=== PATIENT | female | born 1990 | race Caucasian/White ===

== ENCOUNTER 2019-02-12 18:28 | Emergency (ER) | payer BC, SELFPAY ==
[2019-02-12 18:29] VITALS: BP 114/58; PULSE 79; RESP 17; TEMP 36.3; O2SAT 99; BMI 45.6
[2019-02-12 19:18] LABS: Absolute Lymphocyte Count 1.33 X10^3/uL (0.83-4.51); Basophil# 0.02 X10^3/uL; Basophil% 0.2 % (0-1); Eosinophil# 0.19 X10^3/uL; Eosinophils% 2.1 % (0-5); Hematocrit 42.3 % (37-47); Hemoglobin 13.1 g/dL (12.0-15.0); Lymphocyte # 1.33 X10^3/ul (4.0); Lymphocyte % 14.8 % (19-41); Mean Corpuscular Hgb 27.1 pg (27.0-32.0); Mean Corpuscular Volume 87.4 fL (81-99); Mean Platelet Vol. 10.3 fl (6.2-12.0); Monocyte# 0.37 X10^3/uL; Monocyte% 4.1 % (0-10); NRBC Flagged by Analyzer 0 % (0-5); Neutrophil # 7.04 X10^3/uL (2.7-7.7); Neutrophil % 78.4 % (47-70); Platelet Count 276 K/mm3 (150-450); RBC Distribution Width CV 13.6 % (11.6-14.6); RBC Distribution Width SD 43.1 fl (35.1-43.9); Red Blood Count 4.84 M/mm3 (4.2-5.4)
[2019-02-12 19:20] VITALS: BP 107/55; BP 83/34; BP 98/58; PULSE 59; PULSE 63; PULSE 81
[2019-02-12] MEDS: 0.9% Normal Saline 1,000 ML 1000 ML IV (19:23)
[2019-02-12 19:25] LABS: Anion Gap 6 (5-15); BUN 12 mg/dL (7-18); BUN/Creat Ratio 14.5 RATIO (10-20); Calcium,Total 9.4 mg/dL (8.5-10.1); Chloride 108 mmol/L (98-107); Creatinine, Serum 0.83 mg/dL (0.55-1.02); EST Glomerular Filtration Rate 87 mL/min (>60); Est Glom Filt Rate - Afr Amer 105 mL/min (>60); Estimated Creatinine Clearance 87.14 ml/min; Glucose 107 mg/dL (74-106); Potassium 3.7 mmol/L (3.5-5.1); Sodium Level 141 mmol/L (136-145)
[2019-02-12 19:27] LABS: Internal QC Validated? YES +Cl - CLEAR BKGD; Pregnancy, Serum, hCG Quali. NEGATIVE Negative
--- NOTE | 2019-02-12 19:28 | ED.DCSUM_ITS ---
- ER Visit Summary Date of Service: 02/12/19 Chief Complaint: [Syncope] History of Present Illness: The patient is a 28 F [presents to the emergency department complaint of a syncopal episode this afternoon while at work. 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 Patient states that she felt like she might pass out so she sat down and kind of fell backwards into the chair and was unconscious for short time. Patient did not fall or injure herself. Patient states that she did start having some vomiting and diarrhea this morning about 2-3 episodes of each. Patient unsure of her last menstrual period but does not think she is . Patient states that she had a similar episode in December and was told at another hospital that she had vasovagal syncope. Patient otherwise has history of asthma and anxiety. Patient also has had prior and cholecystectomy.] Physical Examination: [HEENT-PERRLA, EOMI. Cranial nerves II through XII grossly intact. TMs clear. Mucous membranes moist. No adenopathy. Cardiovascular-regular rate and rhythm without murmur or ectopy Lungs-clear to auscultation, chest wall stable without crepitus or subcu emphysema Abdomen-normoactive bowel sounds, soft, nontender, no rebound or rigidity, no peritoneal signs. Extremities-intact ?4, normal range of motion, normal pulses, atraumatic] Test Results: [CBC with it was normal. Chemistries unremarkable.] hCG was negative. Orthostatic vital signs were positive. Emergency Department Course and Treatment: [Received a liter of the same fluid bolus. She will have repeat orthostatics obtained after the boluses in. Patient otherwise looks well and feels well.] Treatment Plan: [Patient will be advised to follow-up with primary care physician in 3 to 5 days. Patient advised to return if persistent syncope, chest pain, or condition should worsen anyway. Patient advised to push fluids.] Disposition: [Home in stable condition.] Impression: [Syncope-vasovagal Orthostatic hypotension Viral gastroenteritis] This note was generated with [employer] dictation software. It may contain incorrect words, spelling, and punctuation that were not noted in review of the chart prior to signing ED Disposition - Plan for ED Patient: Referrals: Jose Luis Barillas MD [Primary Care Provider] -
--- NOTE | 2019-02-12 19:46 | ED.DEP ---
ED Disposition - Plan for ED Patient: Instructions: HYPOTENSION, Orthostatic, SYNCOPE, Vasovagal, GASTROENTERITIS, Viral (6y-Adult) Prescriptions: Ondansetron [Zofran Odt] 4 mg PO Q8H PRN PRN #10 tab PRN Reason: Nausea Prescription Printed Referrals: Jose Luis Barillas MD [Primary Care Provider] - 3-5 Days
[2019-02-12 20:45] VITALS: BP 106/51; BP 124/78; BP 136/67; PULSE 68; PULSE 70; PULSE 71
== END 2019-02-12 20:54 | disposition home or self-care (01) ==
LOC: ED 19:06
PROVIDERS: Emergency Provider Emergency Medicine; Family Provider Family Medicine; PCP Family Medicine
DX: I95.1 Orthostatic hypotension (principal); A08.4 Viral intestinal infection, unspecified
CPT/HCPCS: 80048; 84703; 85025; 96360; 99285; J7030; A4216

== ENCOUNTER 2019-02-25 20:01 | Emergency (ER) | payer SELFPAY ==
[2019-02-25 20:03] VITALS: BP 155/65; PULSE 68; RESP 14; TEMP 36.8; O2SAT 98; BMI 46.3
--- NOTE | 2019-02-25 20:07 | EKG12_ITS ---
Test Reason : SYNCOPE Blood Pressure : / mmHG Vent. Rate : 063 BPM Atrial Rate : 063 BPM P-R Int : 166 ms QRS Dur : 094 ms QT Int : 430 ms P-R-T Axes : 008 024 019 degrees QTc Int : 440 ms Normal sinus rhythm Poor R wave progression Confirmed by MUNIRA RAO, ARTUR ([id number]), assignment desk editor NO MONTAÑO ([id number]) on 03/01/2019 10:15:25 AM Referred By: SURI Confirmed By:ARTUR LOMBARDO MD
[2019-02-25 20:23] VITALS: BP 118/54; BP 130/73; BP 134/64; PULSE 63; PULSE 73; PULSE 75
--- NOTE | 2019-02-25 20:31 | ED.VIS.GEN ---
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 She felt lightheaded. Then she started feeling her heart racing. She checked her pulse and it had gone from the 50s up to between 100-110, she felt like she was going to pass out. She sat down and is eventually passed and resolved prior to getting here to the ER. She denies any chest pain or shortness of breath or leg swelling. This is the third or fourth time she has had this exact thing happened. She just had a work-up for this at her doctor, was referred to cardiology for which she has an appointment next month, and ordered a Holter or event monitor that she is going to get fitted for tomorrow. She now feels back to normal. She has been drinking plenty of fluids today and denies any recent illness or new medications. Past Medical History - Allergies and Home Meds Allergies/Adverse Reactions: Allergies ceftriaxone [From Rocephin] Allergy (Verified 02/25/19 20:02) Satinder Primary Care Physician: Jose Luis Barillas MD [Primary Care Provider] - Smoking Status: Never smoker Drugs: None Review of Systems General: Denies: Chills, Fever, Sweats Eyes: Denies: Visual changes - bilaterally, Diplopia ENT: Denies: Rhinorrhea, Sore throat Cardiovascular: Reports: Palpitations, Heart racing. Denies: Chest pain Respiratory: Denies: Dyspnea, Cough, Dyspnea on exertion Gastrointestinal: Denies: Abdominal pain, Nausea, Vomiting, Diarrhea, Melena, Hematochezia Genitourinary: Denies: Dysuria, Hematuria, Frequency Musculoskeletal: Denies: Back pain, Swelling, Extremity Pain Skin: Denies: Rash, Wounds Neurological: Denies: Headache, Weakness, Numbness Physical Exam Vital Signs/Narrative: Vital Signs Temp Pulse Pulse Pulse Pulse Resp BP 02/25/19 20:23 63 75 73 02/25/19 20:03 98.3 F 68 14 155/65 H BP BP BP Pulse Ox 02/25/19 20:23 118/54 L 134/64 H 130/73 H 02/25/19 20:03 98 Inital Vital Signs reviewed: Yes General: Well nourished, Well developed, No Acute Distress Head: Normocephalic, Atraumatic Eyes: Perrl, EOMI ENT: Moist mucous membranes, No rhinorrhea Neck: Supple, Nontender, No lymphadenopathy, No JVD Cardiovascular: Regular rate, Regular rhythm, No murmurs, Normal S1, Normal S2. Negative for: Tachycardia Respiratory: No distress, CTA bilaterally, Chest nontender Abdomen: Soft, Nontender, Nondistended, Normal bowel sounds Back: Nontender, Normal Inspection Extremities: Nontender, No edema. Negative for: Calf Tenderness Skin: Normal color, No rash, No Trauma Neurological: Alert, Oriented x3, Cranial nerves II-XII grossly intact, Normal Strength, Normal Sensation, Normal Gait Psychological: Normal affect, Normal Mood Diagnostic/Tx/Re-eval - Rhythm Strip Rhythm Strip: Sinus Rhythm Rate: 70 Ectopy: None - EKG Initial EKG Interpretation: Sinus Rhythm, No Acute Injury Pattern - normal EKG - Medical Decision Making Orthostatics unremarkable. Patient was observed and had no recurrent symptoms, telemetry events, or dysrhythmias. She just had blood work and a negative , all of which was unremarkable, about 1 week ago or a little more. I do not think that needs to be repeated since she has been feeling fine prior to this event, which has happened before. I advised that she go home, get her Holter monitor fitted as scheduled tomorrow, and follow-up as scheduled. She is comfortable with that plan. ED Disposition - Plan for ED Patient: Disposition: Home or Assisted Living Diagnosis: Near syncope, Palpitations Instructions: Palpitations, NEAR SYNCOPE, Unknown Referrals: Jose Luis Barillas MD [Primary Care Provider] - Keep Kiley appointment (And/or your adolescent medicine specialist) Additional Instructions: Make sure you get your monitor for tomorrow.
[2019-02-25 21:21] VITALS: BP 105/55; PULSE 66; RESP 15; O2SAT 100
== END 2019-02-25 21:24 | disposition home or self-care (01) ==
PROVIDERS: Emergency Provider Emergency Medicine; Family Provider Family Medicine; PCP Family Medicine
DX: R55 Syncope and collapse (principal); R00.2 Palpitations; Z88.1 Allergy status to other antibiotic agents
CPT/HCPCS: 93005; 99285

== ENCOUNTER 2019-04-13 18:44 | Emergency (ER) | payer OTHER, SELFPAY ==
[2019-04-13 18:45] VITALS: BP 134/77; PULSE 66; RESP 18; TEMP 36.7; O2SAT 98; BMI 46.0
--- NOTE | 2019-04-13 19:08 | ED.DCSUM_ITS ---
History of Present Illness Chief Complaint: Upper Extremity Injury Detail of Chief Complaint: Left elbow injury Informant: Patient Onset: Today Current Severity: Mild Maximum Severity: Mild Narrative: Patient presents with left elbow injury. 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 She states she felt a pop in her left elbow and had pain. She denies paresthesias in her hand. Minimal tenderness at the left shoulder. She is right-hand dominant. - Past Medical History (1) Asthma Status: Chronic (2) Depression Status: Chronic (3) Hx of cholecystectomy Status: Chronic Past Medical History - Allergies and Home Meds Allergies/Adverse Reactions: Allergies ceftriaxone [From Rocephin] Allergy (Verified 04/13/19 18:44) Hives Primary Care Physician: Jose Luis Barillas MD [Primary Care Provider] - Prior records reviewed: Yes Smoking Status: Never smoker Review of Systems General: Denies: Chills, Fever Eyes: Denies: Visual changes - bilaterally ENT: Denies: Bilateral ear pain Cardiovascular: Denies: Chest pain Respiratory: Denies: Dyspnea, Cough Gastrointestinal: Denies: Abdominal pain, Nausea, Vomiting Musculoskeletal: Reports: Extremity Pain. Denies: Swelling Neurological: Denies: Weakness, Parasthesia Psych: Denies: Depression Hematologic: Denies: Easy bruising, Easy bleeding Allergy: Denies: Uticaria Physical Exam Vital Signs/Narrative: Vital Signs Temp Pulse Resp BP Pulse Ox 04/13/19 18:45 98.0 F 66 18 134/77 H 98 Inital Vital Signs reviewed: Yes General: Well nourished, Well developed Head: Normocephalic ENT: Moist mucous membranes Cardiovascular: Regular rate Respiratory: No distress Extremities: - - Mild tenderness over the radial head of the left elbow. No significant edema noted. Good range of motion. No pain with pronation and supination. Strong distal pulses are noted. She is a strong hand grasp. There is minimal tenderness at the shoulder with full range of motion. Skin: Normal color, No rash Neurological: Alert, Oriented x3 Psychological: Normal affect Diagnostic/Tx/Re-eval Impressions Elbow X-Ray 04/13/19 19:11 IMPRESSION: Normal x-ray examination of the elbow. Electronically Signed: Isai Leonard MD at 19:53 EST , Service support , 04/13/19 19:11 Elbow min 3 Views [RAD] Stat - Medical Decision Making Patient declined anything for pain while here. X-ray results are discussed with her. Elbow was wrapped with Faraz wrap. Work restrictions are provided. She will follow-up with [facility] care. ED Disposition - Plan for ED Patient: Disposition: Home or Assisted Living Diagnosis: Elbow sprain Instructions: Sprain Elbow Referrals: [facility] [GROUP OF PHYSICIANS] - 3-5 Days
--- NOTE | 2019-04-13 19:11 | RAD_ITS ---
STUDY: X-RAY - LEFT ELBOW REASON FOR EXAM: Female, 29 years old. left elbow pain and bruising. pt was lifting heavy object at work and heard and quot;pop and quot; in elbow. TECHNIQUE: 3 view(s) of the elbow. COMPARISON: None. FINDINGS: Normal visualized humerus, radius and ulna. Normal radiocapitellar and ulnotrochlear articulations. The soft tissue structures are unremarkable. RAD/Elbow min 3 Views IMPRESSION: Normal x-ray examination of the elbow. Electronically Signed: Isai Leonard MD at 19:53 EST , Service support ,
== END 2019-04-13 20:16 | disposition home or self-care (01) ==
PROVIDERS: Emergency Provider Emergency Medicine; PCP Family Medicine
DX: S53.402A Unspecified sprain of left elbow, initial encounter (principal); S50.02XA Contusion of left elbow, initial encounter; X50.0XXA Overexertion from strenuous movement or load, initial encounter; J45.909 Unspecified asthma, uncomplicated; F32.9 Major depressive disorder, single episode, unspecified; Z88.1 Allergy status to other antibiotic agents; Z90.49 Acquired absence of other specified parts of digestive tract
CPT/HCPCS: 73080; 99282

== ENCOUNTER 2019-07-28 18:35 | Emergency (ER) | payer BC, SELFPAY ==
[2019-04-20 12:33] VITALS: BMI 46.0
[2019-07-28 18:35] VITALS: BP 118/74; PULSE 68; RESP 18; O2SAT 100
[2019-07-28 18:36] VITALS: BP 118/74; PULSE 77; RESP 16; TEMP 36.8; O2SAT 97; BMI 49.6
--- NOTE | 2019-07-28 18:51 | RAD_ITS ---
STUDY: X-RAY CHEST REASON FOR EXAM: Female, 29 years old. CHEST PAIN/DIZZINESS @WORK TONIGHT, PT IS 13 WKS , DOUBLE SHIELDED TECHNIQUE: 2 views COMPARISON: None. FINDINGS: The lungs are clear and expanded. There is no demonstrated pleural abnormality. Normal size heart. Normal mediastinum and grace. Normal visualized pulmonary arteries. Normal visualized aortic arch and descending thoracic aorta. Normal visualized thoracic spine. Normal visualized ribs, clavicles, and shoulders. There is no demonstrated abnormality of the visualized soft tissue structures of the upper abdomen. RAD/Chest PA and Lateral IMPRESSION: Normal x-ray examination of the chest. Electronically Signed: Julissa Collazo MD at 19:16 EDT , Service support ,
--- NOTE | 2019-07-28 18:51 | EKG12_ITS ---
Test Reason : CP Blood Pressure : / mmHG Vent. Rate : 078 BPM Atrial Rate : 078 BPM P-R Int : 168 ms QRS Dur : 086 ms QT Int : 372 ms P-R-T Axes : 038 045 032 degrees QTc Int : 424 ms Normal sinus rhythm with sinus arrhythmia Normal ECG Confirmed by MONALISA RAO, CHARLENE ([id number]), film editor NO MONTAÑO ([id number]) on 08/02/2019 1:57:31 PM Referred By: CHASIDY Confirmed By:DINA SHELDON MD
--- NOTE | 2019-07-28 18:51 | ED.VIS.GEN ---
History of Present Illness Chief Complaint: Chest Pain Narrative: Patient is a 29-year-old female who presents with chest discomfort and lightheadedness. She thinks this was just because it was hot at work. She had noted that she quit sweating about 30 minutes before developing some mild chest discomfort and lightheadedness. This improved after getting out of the hot environment and currently she is completely asymptomatic. She did not feel short of breath. She denies any recent illness otherwise such as fevers vomiting diarrhea. She has been eating and drinking normally. Past Medical History - Allergies and Home Meds Allergies/Adverse Reactions: Allergies sulfamethoxazole [From Bactrim] Allergy (Mild, Verified 07/28/19 18:36) UNKNOWN trimethoprim [From Bactrim] Allergy (Mild, Verified 07/28/19 18:36) UNKNOWN ceftriaxone [From Rocephin] Allergy (Verified 07/28/19 18:36) Hives Primary Care Physician: Jose Luis Barillas MD [Primary Care Provider] - Past Medical History: - - Anxiety Smoking Status: Never smoker Review of Systems All systems negative except as indicated General: Denies: Fever Eyes: Denies: Visual changes - bilaterally ENT: Denies: Bilateral ear pain Cardiovascular: Reports: Chest pain, - - Lightheadedness Respiratory: Denies: Dyspnea Gastrointestinal: Denies: Abdominal pain, Nausea, Vomiting, Diarrhea Musculoskeletal: Denies: Myalgias, Arthralgias Skin: Denies: Rash Neurological: Denies: Headache Hematologic: Denies: Easy bruising, Easy bleeding Allergy: Denies: Uticaria Physical Exam Vital Signs/Narrative: Vital Signs Temp Pulse Resp BP Pulse Ox 07/28/19 18:36 98.3 F 77 16 118/74 97 07/28/19 18:35 68 18 118/74 100 Inital Vital Signs reviewed: Yes General: Well nourished Head: Normocephalic Eyes: EOMI ENT: Moist mucous membranes Neck: Supple Cardiovascular: Regular rate, Regular rhythm Respiratory: No distress, CTA bilaterally Skin: Normal color Neurological: Alert Psychological: Normal affect Diagnostic/Tx/Re-eval Impressions Chest X-Ray 07/28/19 18:51 IMPRESSION: Normal x-ray examination of the chest. Electronically Signed: Julissa Collazo MD at 19:16 EDT , Service support , 07/28/19 18:51 Chest PA and Lateral [RAD] Stat - Medical Decision Making Chest x-ray normal as above. EKG shows normal sinus rhythm with sinus arrhythmia at a rate of 78 no acute ischemic changes. This was likely a heat exhaustion type reaction. Currently she is completely asymptomatic. She understands to return for new or worsening symptoms otherwise to follow-up as an outpatient and she was discharged home. ED Disposition - Plan for ED Patient: Disposition: Home or Assisted Living Diagnosis: Dizziness, Chest pain Instructions: ED Chest Pain NonCardiac Referrals: Jose Luis Barillas MD [Primary Care Provider] -
[2019-07-28 19:49] VITALS: BP 113/96; PULSE 72; RESP 16; O2SAT 98
== END 2019-07-28 19:50 | disposition home or self-care (01) ==
PROVIDERS: Emergency Provider Emergency Medicine; PCP Family Medicine
DX: R42 Dizziness and giddiness (principal); R07.9 Chest pain, unspecified; Z88.1 Allergy status to other antibiotic agents; Z88.2 Allergy status to sulfonamides; F41.9 Anxiety disorder, unspecified
CPT/HCPCS: 71046; 93005; 99285; A4216

== ENCOUNTER 2019-08-25 20:48 | Emergency (ER) | payer BC, SELFPAY ==
[2019-08-25 20:50] VITALS: BP 128/72; PULSE 90; RESP 16; TEMP 36.4; O2SAT 97; BMI 46.7
[2019-08-25 21:12] LABS: Bacteria 0 SEEN /hpf (None Seen); Mucous, Urine 0 SEEN /hpf (<or=2+)
[2019-08-25 21:17] LABS: Color, Urine Yellow (Yellow); Glucose, Dipstick Normal (Normal); Ketone-Dipstick 15 mg/dl (Negative); Leukocyte Esterase-Dipstick 100 /ul (Negative); Nitrite-Dipstick Negative (Negative); Occult Blood-Urine 50 /ul (Negative); Protein-Dipstick 30 mg/dl (Negative); Urine Bilirubin Dipstick Negative (Negative); Urine Clarity Cloudy (Clear); Urine Urobilinogen 1 mg/dl (Normal)
[2019-08-25 21:26] LABS: Calcium Oxalate Crystals Ur 2+ /hpf (<or=2+); Red Blood Cells-Urine 0-5 SEEN /hpf (0-5); Squamous Epithelial Cells - UA 5-10 SEEN /hpf (5-10); White Blood Cells 0-5 SEEN /hpf (0-5)
--- NOTE | 2019-08-25 21:45 | ED.DCSUM_ITS ---
History of Present Illness Chief Complaint: Vag Bld, Preg Onset: Today Narrative: 29-year-old G2, P1 at approximately 17 weeks presents with concern for vaginal bleeding. States that she went to clean herself after urination approximately 1 hour ago when she noticed there was some blood on the tissue paper. Sure whether this is coming from her vagina or her urethra. States that her urine was not tinged with blood. States that she has been having intermittent cramping. States that she did fall on her right side when going up a hill after canoeing trip over the weekend. States that she did not fall on her abdomen or pelvis. Has any nausea, vomiting, dysuria, vaginal discharge. Past Medical History - Allergies and Home Meds Allergies/Adverse Reactions: Allergies sulfamethoxazole [From Bactrim] Allergy (Mild, Verified 08/25/19 20:52) UNKNOWN trimethoprim [From Bactrim] Allergy (Mild, Verified 08/25/19 20:52) UNKNOWN ceftriaxone [From Rocephin] Allergy (Verified 08/25/19 20:52) Hives Primary Care Physician: Jose Luis Barillas MD [Primary Care Provider] - Prior records reviewed: Yes Past Medical History: None Surgical History: no surgical history Lives: Spouse/ Significant Other Smoking Status: Never smoker Alcohol: None Drugs: None Review of Systems General: Denies: Chills, Fever, Sweats Eyes: Denies: Visual changes - bilaterally, Diplopia ENT: Denies: Rhinorrhea, Sore throat Cardiovascular: Denies: Chest pain, Palpitations Respiratory: Denies: Dyspnea, Cough, Dyspnea on exertion Gastrointestinal: Denies: Abdominal pain, Nausea, Vomiting, Diarrhea, Melena, Hematochezia Genitourinary: Reports: - - vaginal bleeding. Denies: Dysuria, Hematuria, Frequency Musculoskeletal: Denies: Back pain, Extremity Pain Skin: Denies: Rash, Wounds Neurological: Denies: Headache, Weakness, Numbness Physical Exam Vital Signs/Narrative: Vital Signs Temp Pulse Resp BP Pulse Ox 08/25/19 20:50 97.6 F L 90 16 128/72 H 97 Inital Vital Signs reviewed: Yes General: Well nourished, Well developed, No Acute Distress Head: Normocephalic, Atraumatic Eyes: Perrl, EOMI ENT: Moist mucous membranes, No rhinorrhea Neck: Supple, Nontender Cardiovascular: Regular rate, Regular rhythm, No murmurs Respiratory: No distress, CTA bilaterally, Chest nontender Abdomen: Soft, Nontender, Nondistended, Normal bowel sounds Back: Nontender, Normal Inspection Extremities: Nontender, No edema Skin: Normal color, No rash Neurological: Alert, Oriented x3, Cranial nerves II-XII grossly intact, Normal Strength, Normal Sensation Psychological: Normal affect, Normal Mood Diagnostic/Tx/Re-eval Laboratory Data 08/25/19 08/25/19 20:58 22:00 Urine Color Yellow Urine Clarity Cloudy Urine pH 5.0 Ur Specific [place] 1.030 Urine Protein 30 H Urine Glucose (UA) Normal Urine Ketones 15 H Urine Occult Blood 50 H Urine Nitrite Negative Urine Bilirubin Negative Urine Urobilinogen 1 H Ur Leukocyte Esterase 100 H Urine RBC 0-5 SEEN Urine WBC 0-5 SEEN Ur Squamous Epith Cells 5-10 SEEN Calcium Oxalate Crystal 2+ Urine Bacteria 0 SEEN Urine Mucus 0 SEEN Blood Type O POSITIVE - Medical Decision Making Appears well nontoxic. Vital signs within normal limits. Patient had no further bleeding in the emergency department. heart rate of 144. No abdominal tenderness. O+ requiring no RhoGam at this time. Urine shows possible scant infection. Urine will be sent for culture and she will be covered with Keflex. Follow-up with [facility] tomorrow. Discharged home in stable condition. ED Disposition - Plan for ED Patient: Disposition: Psychiatric Hospital or Unit Diagnosis: Vaginal bleeding before 22 weeks gestation, UTI (urinary tract infection) Instructions: ED CYSTITIS Female Adult Prescriptions: Nitrofurantoin Monohyd/M-Cryst [Macrobid 100 mg Capsule] 100 mg PO BID #10 cap Transmission Status: Pending to [facility] Referrals: Jose Luis Barillas MD [Primary Care Provider] - Additional Instructions: Please make appointment with [facility] for tomorrow. Return for any abdominal pain or increased bleeding.
[2019-08-25 23:16] VITALS: BP 130/69
[2019-08-25 23:17] VITALS: BP 137/69
== END 2019-08-25 23:18 | disposition home or self-care (01) ==
PROVIDERS: Emergency Provider Emergency Medicine; PCP Family Medicine
DX: O20.9 Hemorrhage in early pregnancy, unspecified (principal); O23.42 Unspecified infection of urinary tract in pregnancy, second trimester; Z3A.22 22 weeks gestation of pregnancy; Z88.1 Allergy status to other antibiotic agents; Z88.2 Allergy status to sulfonamides; W19.XXXA Unspecified fall, initial encounter
CPT/HCPCS: 36415; 81001; 86900; 86901; 99282

== ENCOUNTER 2019-09-14 16:45 | Outpatient (CLI) | payer BC, SELFPAY ==
[2019-09-14 16:52] VITALS: BP 113/53; PULSE 81; TEMP 36.4; O2SAT 99
[2019-09-14 17:09] VITALS: BMI 46.0
[2019-09-14 17:21] LABS: Color, Urine Yellow (Yellow); Glucose, Dipstick Normal (Normal); Ketone-Dipstick 5 mg/dl (Negative); Leukocyte Esterase-Dipstick 500 /ul (Negative); Nitrite-Dipstick Negative (Negative); Occult Blood-Urine 25 /ul (Negative); Protein-Dipstick 100 mg/dl (Negative); Urine Bilirubin Dipstick Negative (Negative); Urine Clarity Sl. Cloudy (Clear); Urine Urobilinogen 1 mg/dl (Normal)
--- NOTE | 2019-09-17 03:57 | OB.TRI.PN ---
Progress Notes Date of Service: 09/14/19 Progress Note: patient is being see nby another practice, presented today for decreased movement. normal reassuring FHT heard and reassurance given. plan fu with primary cloud administrator. urine sent for culture but just mixed contaminants. Laboratory Studies: Laboratory Tests 09/14/19 Range/Units 17:06 Urine Color Yellow (Yellow) Urine Clarity Sl. Cloudy (Clear) Urine pH 5.0 (5.0 - 8.0) Ur Specific [place] 1.020 (1.002-1.030) Urine Protein 100 H (Negative) mg/dl Urine Glucose (UA) Normal (Normal) mg/dl Urine Ketones 5 H (Negative) mg/dl Urine Occult Blood 25 H (Negative) /ul Urine Nitrite Negative (Negative) Urine Bilirubin Negative (Negative) mg/dL Urine Urobilinogen 1 H (Normal) mg/dl Ur Leukocyte Esterase 500 H (Negative) /ul Multi Select Codes - Urinary/Genital Urinary/Genital CPT Codes: No Charge
== END 2019-09-14 17:40 | disposition home or self-care (01) ==
PROVIDERS: PCP Family Medicine; Referring Provider Obstetrics & Gynecology; Visit Provider Obstetrics & Gynecology
DX: O36.8190 Decreased fetal movements, unspecified trimester, not applicable or unspecified (principal); Z3A.00 Weeks of gestation of pregnancy not specified
CPT/HCPCS: 81002; 87086; 87088; 99218; G0378

== ENCOUNTER 2019-10-08 14:43 | Emergency (ER) | payer BC, SELFPAY ==
[2019-10-08 14:44] VITALS: BP 137/67; PULSE 82; RESP 18; TEMP 36.6; O2SAT 98; BMI 46.8
--- NOTE | 2019-10-08 15:10 | US_ITS ---
STUDY: SECOND AND THIRD TRIMESTER OBSTETRICAL ULTRASOUND - LIMITED REASON FOR EXAM: Female, 29 years old WEAKNESS DECREASED MVTS LMP: 04/29/2019 PRIOR ULTRASOUND: None. TECHNIQUE: Transabdominal TECHNICAL QUALITY: Adequate. FINDINGS: There is a single intrauterine fetus. The fetus is in a cephalic presentation. There is demonstrated cardiac activity with a heart rate of 147 bpm. There is a normal amniotic fluid volume. The largest amniotic fluid pocket measures 5.6 cm. The amniotic fluid index (EVERARDO) is cm. The placenta is posterior in location and is not low lying. There are Grade 0 placental changes. The cervix measures 4.0 cm in length. BIOMETRY: BPD: 5.2 cm: 21 weeks, 6 days HC: 19.3 cm: 21 weeks, 4 days AC: 18.2 cm: 23 weeks, 1 days FL: 4.2 cm: 23 weeks, 6 days Age by LMP: 23 weeks, 1 days. RASHEL by LMP: 02/03/2020. age by current US: 22 weeks, 5 days. RASHEL by current US: 02/06/2020. Estimated weight: 564 grams, +/- 82 grams, 40 percentile. Gender: US/OB Limited With Biometrics IMPRESSION: Living intrauterine of 22 weeks 5 days as described above. Electronically Signed: Contreras Alcantara MD at 16:34 EDT Tel , Service support ,
--- NOTE | 2019-10-08 15:19 | ED.DCSUM_ITS ---
- ER Visit Summary Date of Service: 10/08/19 Chief Complaint: Generalized weakness History of Present Illness: The patient is a 29 F presenting with generalized weakness. Patient states she has felt fatigued and tired. She felt like her legs were weak this morning. She has been able to ambulate. She denies fever. Denies back pain. She has currently 23 weeks . She denies abdominal pain or cramping. Denies vaginal bleeding. She states this morning she felt that the baby was not moving as much as usual. She states he baby is now kicking normally. She has had mild diarrhea. She denies vomiting. Denies other complaints. Physical Examination: Vitals are stable. Patient is afebrile. Alert no acute distress. HEENT exam is unremarkable. Neck is supple. Lungs are clear and equal bilaterally. Heart is regular rate and rhythm. Abdomen is soft nontender nondistended. Extremities are unremarkable. Skin is warm and dry. No focal neurologic deficit. Normal strength and sensation Remainder of exam is unremarkable. Emergency Department Course and Treatment: Patient was given IV fluids. Basic metabolic panel is unremarkable. Urinalysis unremarkable. Pelvic ultrasound shows living intrauterine of 22 weeks 5 days as described above. On reevaluation, patient is resting comfortably. She feels improved. She states she is now feeling the baby move normally. She is advised to follow-up with her MEDIA ACCOUNT EXECUTIVE. Advised return to the ED for worsening complaints. Disposition: Discharge home Impression: Generalized weakness, second trimester This note was generated with [employer] dictation software. It may contain incorrect words, spelling, and punctuation that were not noted in review of the chart prior to signing ED Disposition - Plan for ED Patient: Instructions: Care for a Healthy Baby Referrals: Jose Luis Barillas MD [Primary Care Provider] -
[2019-10-08] MEDS: 0.9% Normal Saline 1,000 ML 999 ML IV (15:31)
[2019-10-08 15:46] LABS: Anion Gap 5 (5-15); BUN 5 mg/dL (7-18); BUN/Creat Ratio 10.5 RATIO (10-20); Calcium,Total 8.5 mg/dL (8.5-10.1); Chloride 110 mmol/L (98-107); Creatinine, Serum 0.48 mg/dL (0.55-1.02); EST Glomerular Filtration Rate 164 mL/min (>60); Est Glom Filt Rate - Afr Amer 198 mL/min (>60); Estimated Creatinine Clearance 149.33 ml/min; Glucose 104 mg/dL (74-106); Potassium 3.5 mmol/L (3.5-5.1); Sodium Level 139 mmol/L (136-145)
[2019-10-08 16:28] LABS: Bacteria 0 SEEN /hpf (None Seen); Mucous, Urine 0 SEEN /hpf (<or=2+); Red Blood Cells-Urine 0 SEEN /hpf (0-5)
[2019-10-08 16:37] LABS: Color, Urine Yellow (Yellow); Glucose, Dipstick Normal (Normal); Ketone-Dipstick Negative (Negative); Leukocyte Esterase-Dipstick 25 /ul (Negative); Nitrite-Dipstick Negative (Negative); Occult Blood-Urine Negative /ul (Negative); Protein-Dipstick Negative (Negative); Urine Bilirubin Dipstick Negative (Negative); Urine Clarity Clear (Clear); Urine Urobilinogen Normal (Normal); Urine pH 6.5 (5.0 - 8.0)
[2019-10-08 16:44] LABS: Squamous Epithelial Cells - UA 0-5 SEEN /hpf (5-10); White Blood Cells 0-5 SEEN /hpf (0-5)
--- NOTE | 2019-10-08 16:53 | ED.DEP ---
ED Disposition - Plan for ED Patient: Instructions: Care for a Healthy Baby Referrals: Jose Luis Barillas MD [Primary Care Provider] -
== END 2019-10-08 17:13 | disposition home or self-care (01) ==
LOC: ED 15:15
PROVIDERS: Emergency Provider Emergency Medicine; PCP Family Medicine
DX: O99.89 Other specified diseases and conditions complicating pregnancy, childbirth and the puerperium (principal); R53.1 Weakness; Z3A.23 23 weeks gestation of pregnancy
CPT/HCPCS: 76816; 80048; 81001; 96360; 99283; J7030; A4216

== ENCOUNTER 2023-07-11 15:06 | Emergency (ER) | payer BC, SELFPAY ==
[2023-07-11 15:08] VITALS: BP 102/79; PULSE 78; RESP 21; TEMP 36.6; O2SAT 98; BMI 44.9
--- NOTE | 2023-07-11 15:33 | EKG12_ITS ---
Test Reason : DIZZY Blood Pressure : / mmHG Vent. Rate : 072 BPM Atrial Rate : 072 BPM P-R Int : 174 ms QRS Dur : 090 ms QT Int : 410 ms P-R-T Axes : 056 050 043 degrees QTc Int : 448 ms Sinus rhythm with Premature supraventricular complexes Otherwise normal ECG Confirmed by Man Castro ([id number]), health editor WILBUR ROJO ([id number]) on 07/14/2023 8:13:27 AM Referred By: Confirmed By:Man Castro
--- NOTE | 2023-07-11 15:33 | EX.ED.DYSGE1 ---
HPI <SÁNCHEZ Martinez - Last Filed: 07/11/23 17:33> History of Present Illness Chief Complaint: Dizziness Narrative Narrative: Patient is a 33-year-old female with history obesity, anxiety, depression, asthma who presents to the emergency department for feeling of lightheadedness, near syncope. Patient states she did not drink a lot of water today she is currently camping, she has been camping since last evening until Friday which is 3 days. Patient states that she got this morning, she did eat breakfast as well as lunch, she was playing with the kids outside when she felt lightheaded, and went back to the campground. Patient states that she is asymptomatic at this time, she was concerned because she also gets low blood sugar. However patient is asymptomatic at this time. Denies any chest pain, fever chills nausea or vomiting. PFSH <SÁNCHEZ Martinez - Last Filed: 07/11/23 17:33> [facility] Medical History (Updated 07/11/23 @ 17:31 by SÁNCHEZ Martinez) Reactive hypoglycemia Asthma Home Medications ?Medication ?Instructions ?Recorded ?Last Taken ?Type albuterol sulfate 90 mcg/actuation 2 puff IH Q4H PRN Asthma 02/25/19 Unknown History aerosol inhaler citalopram 40 mg tablet 40 mg PO DAILY 02/25/19 Unknown History albuterol sulfate 90 mcg/actuation 2 inh inhalation Q4H PRN shortness 07/11/23 Unknown History aerosol inhaler (ProAir HFA) of breath or wheezing budesonide 0.5 mg/2 mL suspension 0.5 mg inhalation Q12.TCU 07/11/23 Unknown History for nebulization dextroamphetamine-amphetamine ER 30 mg PO DAILY 07/11/23 Unknown History 30 mg 24hr capsule,extend release fexofenadine 180 mg tablet 180 mg PO DAILY 07/11/23 Unknown History (Cydney Allergy) fluticasone 250 mcg-salmeterol 50 1 inh inhalation BID 07/11/23 Unknown History mcg/dose blistr powdr for inhalation (Wixela Inhub) mepolizumab 100 mg/mL subcutaneous 100 mg subcut QMONTH 07/11/23 Unknown History auto-injector (Nucala) metformin 500 mg tablet,extended 500 mg PO TID 07/11/23 Unknown History release 24 hr montelukast 10 mg tablet 10 mg PO DAILY 07/11/23 Unknown History nitrofurantoin 100 mg PO Q12H 5 days #10 caps 07/11/23 Unknown Rx monohydrate/macrocrystals 100 mg capsule (Macrobid) Allergy/AdvReac Type Severity Reaction Status Date / Time sulfamethoxazole (From Allergy Mild UNKNOWN Verified 07/11/23 15:08 Bactrim) trimethoprim (From Bactrim) Allergy Mild UNKNOWN Verified 07/11/23 15:08 ceftriaxone (From Rocephin) Allergy Hives Verified 07/11/23 15:08 Surgical History History of section History of cholecystectomy Social History (Updated 04/20/19 @ 12:33 by Jayce MARIE, PA) Smoking Status: Never smoker alcohol intake: never ROS <SÁNCHEZ Martinez - Last Filed: 07/11/23 17:33> ROS ED ROS Narrative Constitutional: Negative for fever, chills, weight loss, weakness Eyes: Negative for vision loss, vision change, double vision ENT: Negative for any sore throat, ear pain, congestion Cardiovascular: Negative for any chest pain, tightness, palpitations Respiratory: Negative for any cough, sputum production, hemoptysis, dyspnea, dyspnea on exertion, orthopnea Gastrointestinal: Negative for any abdominal pain, nausea, vomiting, diarrhea, constipation, blood in stool, blood in vomit : Negative for any urinary frequency, dysuria, retention, blood in urine Muscle skeletal: Negative for any neck pain, back pain Neurological: Negative for any headache. Positive feeling of dizziness, near syncope Skin: Negative for any rashes, itching, abrasions, lacerations Psychiatric: Negative for any depression, anxiety, stress, suicidal ideation, homicidal ideation Hematologic: Negative for any excessive bruising, easy bleeding EXAM <SÁNCHEZ Martinez - Last Filed: 07/11/23 17:33> Physical Exam Narrative Exam Narrative: Vital signs reviewed. HEET: Head normocephalic atraumatic, TMs clear bilaterally. Posterior pharynx is clear, moist mucous membranes. Nares clear bilaterally. Neck: Supple with no lymphadenopathy or tenderness. No signs of meningismus. Cardiac: Regular rate and rhythm no murmurs gallops or rubs, equal peripheral pulses bilaterally. On the monitor, patient does show some PVCs. Respiratory: Lungs clear to auscultation bilaterally. No chest tenderness. Abdomen: Soft, nontender, nondistended. No abdominal bruit or pulsatile masses. No hepatosplenomegaly Extremities: No peripheral edema, no signs of gross trauma or deformity. Active full range of motion of all extremities. Neuro: Cranial nerves II through XII intact, no focal neurological deficits. Skin: Clean dry and intact with no rash, purpura, petechiae, vesicles or pustules. Backs/flank: No CVA tenderness, no midline spinal tenderness, no deformity. Psych: Normal mood and affect. No SI, HI or acute psychosis. Const Vital Signs: 07/11/23 15:08 07/11/23 17:07 Temperature 97.8 F Temperature Source Temporal Pulse Rate 78 70 Respiratory Rate 21 H 18 Blood Pressure 102/79 136/66 H Blood Pressure Mean 86 89 Pulse Ox 98 95 Oxygen Delivery Method Room Air Room Air <Dr. Aleksandar Chung DO - Last Filed: 07/11/23 17:43> Physical Exam Const Vital Signs: 07/11/23 15:08 07/11/23 17:07 Temperature 97.8 F Temperature Source Temporal Pulse Rate 78 70 Respiratory Rate 21 H 18 Blood Pressure 102/79 136/66 H Blood Pressure Mean 86 89 Pulse Ox 98 95 Oxygen Delivery Method Room Air Room Air [facility] <SÁNCHEZ Martinez - Last Filed: 07/11/23 17:33> [facility] Lab Data Labs: Laboratory Results - last 24 hr 07/11/23 07/11/23 15:52 16:19 WBC 13.4 H RBC 4.47 Hgb 11.8 L Hct 38.1 MCV 85.2 MCH 26.4 L MCHC 31.0 L RDW Std Deviation 45.5 H RDW Coeff of Lala 14.7 H Plt Count 296 MPV 10.6 Immature Gran % (Auto) 0.400 Neut % (Auto) 75.3 H Lymph % (Auto) 16.7 L Armstrong % (Auto) 6.0 Eos % (Auto) 1.3 Baso % (Auto) 0.3 Absolute Neuts (auto) 10.1 H Absolute Lymphs (auto) 2.23 Nucleated RBC % 0 Sodium 140 Potassium 3.4 L Chloride 112 H Carbon Dioxide 20.0 L Anion Gap 8 BUN 11 Creatinine 0.69 Estim Creat Clear Calc 147.11 Est GFR (MDRD) Af Amer 126 Est GFR (MDRD) Non-Af 104 BUN/Creatinine Ratio 15.9 Glucose 98 Calcium 9.5 Troponin I High Sens < 3 L Urine Color SEE COMMENT BELOW Urine Clarity Sl. Cloudy Urine pH 6.0 Ur Specific [place] 1.015 Urine Protein 100 H Urine Glucose (UA) Normal Urine Ketones Negative Urine Occult Blood 250 H Urine Nitrite Negative Urine Bilirubin Negative Urine Urobilinogen Normal Ur Leukocyte Esterase 100 H Urine RBC 50-100 SEEN Urine WBC 10-25 SEEN Ur Squamous Epith Cells 0-5 SEEN Urine Bacteria 2+ Urine Mucus 0 SEEN Urine Test Negative Radiography Diagnostic Testing: Clinical Impression(s) from Imaging Studies Chest X-Ray 07/11/23 15:40 IMPRESSION: No radiographic evidence of acute cardiopulmonary disease. Electronically Signed: Conner Cardona MD at 16:20 EDT , Treatment and Re-Evaluation :: Differential diagnosis includes however is not limited to: Anemia, hypoglycemia, arrhythmia, dehydration, electrolyte disturbance Patient appears to be in no obvious respiratory distress, vital signs are stable, patient appears nontoxic. Presenting to the emergency department after a near syncopal, dizziness like episode. Patient is asymptomatic at this time, vital signs are stable. Patient states she did not drink enough water today. Patient will receive a cardiac workup including CBC BMP, troponin. EKG and chest x-ray will be ordered. She will be given 1 L normal saline. Patient will be monitored and reevaluated. Patient reevaluation was in no distress. Patient was sleeping, patient CBC shows slight leukocytosis white blood count of 13.4, hemoglobin 11.8. Patient's chemistries showed a negative troponin. Kidney function within normal limits. Patient's urinalysis was positive for infection with 2+ bacteria 10-25 white blood cells, 100 leukocytes, this will be sent for culture. Patient was started on Macrobid. Chest x-ray showed no acute process. At this time, I do believe that there is multiple reasons for the patient to have dizziness. Patient was likely dehydrated, and also was having a UTI. Patient be started on Macrobid, twice a day for 5 days. She will return for any worsening symptoms. The antibiotic will be sent to the [facility]. Stable for discharge. <Dr. Aleksandar Chung, DO - Last Filed: 07/11/23 17:43> [facility] Narrative Medical decision making narrative: I have personally performed a face to face assessment of the patient and have reviewed the NORAH Note. I performed a substantive portion of the visit including all aspects of the following. My best findings include: History: Patient presents with lightheadedness and dizziness that began today. Patient states it began rather suddenly. Patient states she felt dizzy and lightheaded. Patient states she felt like she might pass out. Patient states nothing made it better and nothing made it worse. Patient denies any chest pain or palpitations. Patient denies any nausea or vomiting. Patient denies any fevers or chills. Patient denies any shortness of breath. Exam: Vital signs are stable. Patient is afebrile. Patient is in no acute distress. Oral mucosa is pink and moist. Neck is supple. Trachea is midline. There is no JVD. Heart was regular rate and rhythm. Lungs are clear and equal bilaterally. Abdomen is soft. Bowel sounds are normal. There is no tenderness. There is no guarding noted. Cranial nerves II through XII are intact. There are no focal motor or sensory deficits noted. Medical Decision Making: Differential diagnosis includes hypoglycemia, electrolyte abnormality, urinary tract infection, , cardiac dysrhythmia, and cardiac ischemia. EKG will be obtained to assess for cardiac dysrhythmia and cardiac ischemia. Chest x-ray will be obtained to assess for pneumonia and pneumothorax. CBC will be obtained to assess for leukocytosis and anemia. Basic metabolic profile will be obtained to assess for hypoglycemia, electrolyte abnormality, and renal function. Urinalysis will be obtained to assess for urinary tract infection. Urine hCG will be obtained to assess for . High-sensitivity troponin will be obtained to assess for cardiac ischemia. Patient was given IV fluids. CBC was reviewed. There is a mild leukocytosis of 13.4. Hemoglobin was slightly low at 11.8. Platelets were normal. Basic metabolic profile was reviewed and was essentially within normal limits. High-sensitivity troponin was reviewed and was less than 3. Urinalysis was reviewed. Leukocyte esterase was 100. There are 10-25 white blood cells. There is 2+ bacteria. Occult blood was 250 with 50-100 red blood cells. Urine hCG was reviewed and was negative. Urine culture was obtained. Patient was given a dose of Macrobid here. Patient was given a prescription for Macrobid. Patient was instructed to drink plenty of fluids. Patient was instructed to follow-up with her primary care physician in 5 to 7 days. Patient understood and was agreeable with the plan. All questions were answered. Lab Data Labs: Laboratory Results - last 24 hr 07/11/23 07/11/23 15:52 16:19 WBC 13.4 H RBC 4.47 Hgb 11.8 L Hct 38.1 MCV 85.2 MCH 26.4 L MCHC 31.0 L RDW Std Deviation 45.5 H RDW Coeff of Lala 14.7 H Plt Count 296 MPV 10.6 Immature Gran % (Auto) 0.400 Neut % (Auto) 75.3 H Lymph % (Auto) 16.7 L Armstrong % (Auto) 6.0 Eos % (Auto) 1.3 Baso % (Auto) 0.3 Absolute Neuts (auto) 10.1 H Absolute Lymphs (auto) 2.23 Nucleated RBC % 0 Sodium 140 Potassium 3.4 L Chloride 112 H Carbon Dioxide 20.0 L Anion Gap 8 BUN 11 Creatinine 0.69 Estim Creat Clear Calc 147.11 Est GFR (MDRD) Af Amer 126 Est GFR (MDRD) Non-Af 104 BUN/Creatinine Ratio 15.9 Glucose 98 Calcium 9.5 Troponin I High Sens < 3 L Urine Color SEE COMMENT BELOW Urine Clarity Sl. Cloudy Urine pH 6.0 Ur Specific [place] 1.015 Urine Protein 100 H Urine Glucose (UA) Normal Urine Ketones Negative Urine Occult Blood 250 H Urine Nitrite Negative Urine Bilirubin Negative Urine Urobilinogen Normal Ur Leukocyte Esterase 100 H Urine RBC 50-100 SEEN Urine WBC 10-25 SEEN Ur Squamous Epith Cells 0-5 SEEN Urine Bacteria 2+ Urine Mucus 0 SEEN Urine Test Negative Radiography Diagnostic Testing: Clinical Impression(s) from Imaging Studies Chest X-Ray 07/11/23 15:40 IMPRESSION: No radiographic evidence of acute cardiopulmonary disease. Electronically Signed: Conner Cardona MD at 16:20 EDT , Discharge Plan Triage Chief Complaint: Dizziness ED Midlevel Provider: Pelon Peraza ED Provider: Aleksandar Chung Dx/Rx/DC Orders Clinical Impression: Acute dehydration, Near syncope, UTI (urinary tract infection) Instructions: Urinary Tract Infections in Women, ED Dehydration (Adult) Prescriptions: New nitrofurantoin monohyd/m-cryst [Macrobid] 100 mg capsule 100 mg PO Q12H 5 Days Qty: 10 0RF Rx Instructions: must administer with a meal/food No Action citalopram 40 MG tablet 40 mg PO DAILY albuterol sulfate 18 GM HFA aerosol inhaler 2 puff IH Q4H PRN (Reason: Asthma) metformin 500 mg tablet extended release 24 hr 500 mg PO TID Nucala 100 mg/mL auto-injector 100 mg subcut QMONTH albuterol sulfate [ProAir HFA] 90 mcg/actuation HFA aerosol inhaler 2 inh inhalation Q4H PRN (Reason: shortness of breath or wheezing) fluticasone propion-salmeterol [Wixela Inhub] 250-50 mcg/dose blister with device 1 inh inhalation BID budesonide 0.5 mg/2 mL suspension for nebulization 0.5 mg inhalation Q12.TCU montelukast 10 mg tablet 10 mg PO DAILY dextroamphetamine-amphetamine 30 mg capsule,extended release 24hr 30 mg PO DAILY fexofenadine [Cydney Allergy] 180 mg tablet 180 mg PO DAILY Primary Care Provider: Jose Luis Barillas Referrals: Jose Luis Barillas MD [Primary Care Provider] - Activity Restrictions/Additional Instructions: Take antibiotics until finished. Print Language: Welsh Disposition Disposition: Home, Self Care
--- NOTE | 2023-07-11 15:40 | RAD_ITS ---
EXAM: XR CHEST, 1 VIEW CLINICAL INDICATION: chest pain TECHNIQUE: Frontal view of the chest. COMPARISON: 07/28/2019 FINDINGS: LUNGS AND PLEURAL SPACES: Unremarkable. No consolidation or edema. No pneumothorax. No effusion. HEART: Unremarkable. Cardiac silhouette not enlarged. MEDIASTINUM: Central airways and mediastinal contour are unremarkable. BONES/JOINTS: Unremarkable. No acute fracture. SOFT TISSUES: Unremarkable. RAD/Chest 1 View (Portable) IMPRESSION: No radiographic evidence of acute cardiopulmonary disease. Electronically Signed: Conner Cardona MD at 16:20 EDT ,
[2023-07-11] MEDS: 0.9% Normal Saline (1000mL) 1,000 ML 999 ML IV (15:51)
[2023-07-11 16:09] LABS: Absolute Lymphocyte Count 2.23 X10^3/uL (0.83-4.51); Absolute Neutrophil Count 10.1 X10^3/uL (2.0-7.7); Basophil# 0.04 X10^3/uL; Basophil% 0.3 % (0-1); Eosinophil# 0.17 X10^3/uL; Eosinophils% 1.3 % (0-5); Hematocrit 38.1 % (37-47); Hemoglobin 11.8 g/dL (12.0-15.0); Lymphocyte # 2.23 X10^3/ul (0.83-4.51); Lymphocyte % 16.7 % (19-41); Mean Corpuscular Hgb 26.4 pg (27.0-32.0); Mean Corpuscular Volume 85.2 fL (81-99); Mean Platelet Vol. 10.6 fl (6.2-12.0); Monocyte# 0.81 X10^3/uL; NRBC Flagged by Analyzer 0 % (0-5); Neutrophil # 10.08 X10^3/uL (2.7-7.7); Neutrophil % 75.3 % (47-70); Platelet Count 296 K/mm3 (150-450); RBC Distribution Width CV 14.7 % (11.6-14.6); RBC Distribution Width SD 45.5 fl (35.1-43.9); Red Blood Count 4.47 M/mm3 (4.2-5.4); White Blood Count 13.4 K/mm3 (4.4-11.0)
[2023-07-11 16:24] LABS: Mucous, Urine 0 SEEN /hpf (<or=2+)
[2023-07-11 16:39] LABS: Glucose, Dipstick Normal (Normal); Ketone-Dipstick Negative (Negative); Leukocyte Esterase-Dipstick 100 /ul (Negative); Nitrite-Dipstick Negative (Negative); Occult Blood-Urine 250 /ul (Negative); Protein-Dipstick 100 mg/dl (Negative); Specific Gravity, Urine 1.015 (1.002-1.030); Urine Bilirubin Dipstick Negative (Negative); Urine Clarity Sl. Cloudy (Clear); Urine Urobilinogen Normal (Normal)
[2023-07-11 16:48] LABS: Color, Urine SEE COMMENT BELOW (Yellow)
[2023-07-11 16:49] LABS: Bacteria 2+ /hpf (None Seen); Red Blood Cells-Urine 50-100 SEEN /hpf (0-5); White Blood Cells 10-25 SEEN /hpf (0-5)
[2023-07-11 16:50] LABS: Internal QC Validated? YES +Cl - CLEAR BKGD; Pregnancy, Urine Negative Negative; Squamous Epithelial Cells - UA 0-5 SEEN /hpf (5-10)
[2023-07-11 16:54] LABS: Anion Gap 8 (5-15); BUN 11 mg/dL (7-18); BUN/Creat Ratio 15.9 RATIO (10-20); Calcium,Total 9.5 mg/dL (8.5-10.1); Chloride 112 mmol/L (98-107); Creatinine, Serum 0.69 mg/dL (0.55-1.02); EST Glomerular Filtration Rate 104 mL/min (>60); Est Glom Filt Rate - Afr Amer 126 mL/min (>60); Estimated Creatinine Clearance 147.11 ml/min; Glucose 98 mg/dL (74-106); Potassium 3.4 mmol/L (3.5-5.1); Sodium Level 140 mmol/L (136-145); Troponin-I HS < 3 pg/mL (3.0-54.0)
[2023-07-11 17:07] VITALS: BP 136/66; PULSE 70; RESP 18; O2SAT 95
[2023-07-11 17:39] VITALS: BP 104/63; PULSE 69; RESP 17; TEMP 36.6; O2SAT 95
[2023-07-11] MEDS: Nitrofurantoin Macrocrystals 100 MG Capsule PO (17:39)
== END 2023-07-11 17:43 | disposition home or self-care (01) ==
PROVIDERS: Nurse Practitioner; Emergency Provider Emergency Medicine; PCP Family Medicine; Visit Provider Emergency Medicine
DX: E86.0 Dehydration (principal); N39.0 Urinary tract infection, site not specified; R55 Syncope and collapse; R42 Dizziness and giddiness; J45.909 Unspecified asthma, uncomplicated; Z79.51 Long term (current) use of inhaled steroids; Z90.49 Acquired absence of other specified parts of digestive tract
CPT/HCPCS: 71045; 80048; 81001; 81025; 84484; 85025; 87086; 87088; 93005; 96360; 99284; J7030; A4216

== ENCOUNTER 2024-09-04 16:04 | Emergency (ER) | payer BC, SELFPAY ==
[2024-09-04 16:06] VITALS: BP 112/82; PULSE 68; RESP 16; TEMP 36.7; O2SAT 99; BMI 37.5
--- NOTE | 2024-09-04 16:38 | CT_ITS ---
PROCEDURE: BRAIN/HEAD WITHOUT CONTRAST 09/04/2024 REASON FOR EXAM: HEADACHE TECHNIQUE: BRAIN/HEAD WITHOUT CONTRAST Coronal and Sagittal reconstruction series were provided. One or more dose reduction techniques were used (e.g., Automated exposure control, adjustment of the mA and/or kV according to patient size, use of iterative reconstruction technique. RADIATION DOSE SUMMARY: CTDlvol: 45 mGy DLP: 779 mGycm COMPARISON: None FINDINGS: Brain: No acute intracranial hemorrhage, mass effect, or midline shift CSF Spaces: Unremarkable Sinuses/Mastoids: Predominantly clear Bones: Unremarkable Scalp: There are several nodules in the scalp containing calcification, for example over the frontal bone measuring 8 mm (sagittal image 33) and in the right occipital region measuring up to 1.0 cm (series 2, image 10). CT/Brain/Head without Contrast IMPRESSION: 1. Nodules containing calcification throughout the scalp measuring up to 1.0 cm in size, most notably in the right occipital region. Differential includes pilar cysts, epidermal inclusion cyst, or other neoplasm. Recommend clinical follow-up. 2. No acute intracranial abnormality. Reading Location: [id number]
--- OUTSIDE RECORDS SUMMARY | 2024-09-04 16:55 | XMS RPT_ITS | CCD ---
Author Organization [facility] Care Team Providers Care Parts Sales Representative Name Role Phone Radha Riojas Primary Care Provider PROVIDER, UNKNOWN Referring Unavailable Charu Baker Attending Unavailable Charu Baker Primary Care Unavailable (Historical), Unknown Primary Care Provider Unav ailable Donald Snowden DO Primary Care Provider [phone] YANIRA MORTON Attending Unavail able RADHA RIOJAS Primary Care Unavailable (Historical), Unknown Primary Care Provider Unav ailable PROVIDER, UNKNOWN Referring Unavailable PROVIDER, UNKNOWN Primary Care Unavailable ROBSON ZUNIGA Referring Unavailable ARTUR MENG Attending Unavailable PROVIDER, UNKNOWN Primary Care Unavailable PROVIDER, UNKNOWN Primary Care Unavailable JHON ACOSTA, DR BENNETT Primary Care Physician Unavail able Rey STEVE, Akhil Mandujano Unavailable Unavailable Avery BURNETT, Mera Unavailable BRIDGET RAO, DR FIGUEROA Attending Unavailab DR DONALD Rico DO Primary Care Unavailable Donald Snowden DO Primary Care Provider [phone] Aleksandar Chung Attending Unavailable Radha Riojas Primary Care Unavailable Robson Zuniga MD Unavailable Charu Baker Primary Care Provider Alexis GOLF PLAYER ASSISTANT.ACCOUNTS PAYABLE ASSOCIATE, Krystle Unavailable BENI, CHASE Attending Unavailable DONALD SNOWDEN Primary Care Unavailable BENI CHASE Attending Unavailable DONALD SNOWDEN Primary Care Unavailable BENI, CHASE Attending Unavailable DONALD SNOWDEN Primary Care Unavailable BENI, CHASE Attending Unavailable DONALD SNOWDEN Primary Care Unavailable BENI, CHASE Attending Unavailable DONALD SNOWDEN Primary Care Unavailable CHASE BAZAN Attending Unavailable DONALD SNOWDEN Primary Care Unavailable DR. DONALD SNOWDEN Primary Care Unavailable DR. DONALD SNOWDEN Primary Care Unavailable DYLAN TOPETE Attending Unavailable NIKROM, DONALD Primary Care Unavailable ROBSON ZUNIGA Attending Unavailable NIKDONALD CUETO Primary Care Unavailable NELLA PAYTON Referring Unavailable NIKROM, DONALD Primary Care Unavailable NELLA PAYTON Referring Unavailable JHON, DONALD Primary Care Unavailable ARLENE PITTMAN Attending Unavailable [facility] Primary Care Unavailable SYLWIA TOPETEY B Attending Unavailable JHON, DONALD Primary Care Unavailable DYLAN TOPETE Referring Unavailable DONALD SNOWDEN Primary Care Unavailable [facility] Primary Care Unavailable ROBSON ZUNIGA Attending Unavailable NIKROM, DONALD Primary Care Unavailable Allergies Allergy Classification Reported Allergen(s) Allergy Type Date of Onset Reaction(s) Facility Aminoketones (1 source) buPROPion Drug Allergy 12-15-19 19 Diarrhea [facility] Cephalosporins (antibiotic) (6 sources) cefTRIAXone Drug Allergy 10-04-19 15 Hives, Anaphylaxis [facility] Dihydrofolate Reductase Inhibitors (antibiotic) (1 source) Trimethoprim Drug Allergy 04-20-19 [facility] Sulfamethoxazole / Trimethoprim (1 source) Sulfamethoxazole / Trimethoprim Drug Allergy 06-04-19 18 [facility] (9 sources) buPROPion Drug Allergy 12-15-19 19 Diarrhea [place], [place] (10 sources) cefTRIAXone; Translations: [ceftriaxone] Drug Allergy 10-04-19 15 Hives, Anaphylaxis [place], [place] (9 sources) Sulfamethoxazole / Trimethoprim Drug Allergy 06-04-19 18 Anaphylaxis [place], [place] (6 sources) Morphine Drug Allergy 08-11-19 22 Nausea And Vomiting [facility] (6 sources) Trimethoprim Drug Allergy 04-20-19 [facility] (20 sources) cefTRIAXone; Translations: [CEFTRIAXONE SODIUM] Drug Allergy 05-13-19 17 Anaphylaxis [facility] Work Phone: (1 source) cefTRIAXone Drug Allergy 07-11-19 [facility] (1 source) Sulfamethoxazole Drug Allergy 07-11-19 [facility] (1 source) Trimethoprim Drug Allergy 07-11-19 [facility] Medications Current Medications Medication Drug Class(es) Dates Sig (Normalized) Sig (Original) acetaminophen 325 mg / oxyCODONE hydrochloride 7.5 mg oral tablet (2 sources) Opioid Agonist Start: 08-10-2021 End: 08-17-2021 take 1 tablet by mouth every six hours as needed for pain oxyCODONE-acetami nophen (PERCOCET) 7.5-325 MG per tablet Indications: Status post right foot surgery Take 1 tablet by mouth every 6 hours as needed for Pain for up to 7 days. 25 tablet 0 08/10/2021 08/17/2021 Active Start: 08-09-2016 End: 04-02-2022 take 1-2 tablets by mouth every four hours as needed oxyCODONE-acetaminophen (PERCOCET) 5-325 mg tablet Take 1-2 tablets by mouth every 4 hours as needed. 30 tablet 0 08/09/2016 04/02/2022 Discontinued Comment on above: Take 1-2 tablets by mouth every 4 hours as needed. [id number] 200 actuat albuterol 0.09 mg/actuat metered dose inhaler (20 sources) beta2-Adrenergic Agonist Start: 05-12-2023 End: 06-21-2024 take 2 puff(s) by inhalation every four hours as needed for wheezing albuterol HFA (PROVENTIL HFA, VENTOLIN HFA) 90 mcg/actuation inhaler INHALE 2 PUFFS INSTRUCTED EVERY 4 HOURS NEEDED FOR WHEEZING/SHORTNESS OF BREATH. 6.7 each 4 06/21/2024 Active Start: 12-17-2022 take 2 puff(s) by in halation every six hours as needed for wheezing albuterol HFA (PROAIR HFA) 90 mcg/actuation inhaler Indications: Mild asthma, unspecified whether complicated, unspecified whether persistent (HCC) Inhale 2 Puffs as instructed every 6 hours as needed for wheezing/shortness of breath. 3 Each 3 12/17/2022 Active Start: 07-11-2022 End: 12-17-2022 take 2 puff(s) by inhalation every six hours as needed for wheezing albuterol HFA (PROAIR HFA) 90 mcg/actuation inhaler Indications: Mild asthma, unspecified whether complicated, unspecified whether persistent Inhale 2 Puffs as instructed every 6 hours as needed for wheezing/shortness of breath. 18 g 3 09/25/2022 12/17/2022 Discontinued Start: 06-16-2022 End: 12-17-2022 take 3 mL by inhalation every four hours as needed for wheezing albuterol (PROVENTIL) 2.5 mg /3 mL (0.083 %) nebulizer solution Indications: Mild asthma, unspecified whether complicated, unspecified whether persistent (HCC) Use 3 mL via nebulizer every 4 hours as needed for wheezing/shortness of breath. Inhale by nebulizer over 5-15 minutes. 360 mL 3 12/17/2022 Active Start: 04-17-2022 End: 06-16-2022 albuterol (PROVENTIL) 2.5 mg /3 mL (0.083 %) nebulizer solution 2.5mg 3 times daily as needed over 5-15 minutes for wheezing and shortness of breath. 90 mL 0 04/17/2022 06/16/2022 Discontinued (.All criteria met for discontinuation) Start: 04-02-2022 End: 07-11-2022 take 2 puff(s) by inhalation every four hours as needed for wheezing albuterol HFA (PROVENTIL HFA, VENTOLIN HFA) 90 mcg/actuation inhaler Inhale 2 Puffs as instructed every 4 hours as needed for wheezing/shortness of breath. 1 Each 5 04/02/2022 07/11/2022 Discontinued Start: 03-11-2022 albuterol (2.5 MG/3ML) 0.083% nebulizer solution 2.5 mg Start: 01-14-2022 take 2 puff(s) by in halation every six hours as needed albuterol 108 (90 Base) MCG/ACT inhaler TAKE 2 PUFFS EVERY 6 HOURS NEEDED 0 01/14/2022 Active Start: 07-17-2021 take 2 puff(s) by in halation every six hours as needed for wheezing albuterol sulfate HFA 108 (90 Base) MCG/ACT inhaler INHALE 2 PUFFS INTO THE LUNGS EVERY 6 HOURS NEEDED FOR WHEEZING OR SHORTNESS OF BREATH 20.1 each 1 07/17/2021 Suspended Start: 07-05-2020 take 2 puff(s) by in halation every six hours as needed for wheezing VENTOLIN HFA 108 (90 Base) MCG/ACT inhaler Indications: Moderate persistent asthma without complication Inhale 2 puffs into the lungs every 6 hours as needed for Wheezing 1 Inhaler 5 07/05/2020 Active Start: 12-14-2018 take 2 puff(s) by in halation every six hours as needed for wheezing VENTOLIN HFA 108 (90 Base) MCG/ACT inhaler Inhale 2 puffs into the lungs every 6 hours as needed for Wheezing 3 Inhaler 1 12/14/2018 Active Start: 12-14-2018 take 2 puff(s) by in halation every six hours as needed for wheezing VENTOLIN HFA 108 (90 Base) MCG/ACT inhaler Inhale 2 puffs into the lungs every 6 hours as needed for Wheezing 3 Inhaler 1 12/14/2018 Active Start: 09-29-2017 albuterol (PRO VENTIL) (2.5 MG/3ML) 0.083% nebulizer solution Take 3 mLs by nebulization every 6 hours as needed for Wheezing 120 each 0 09/29/2017 Suspended End: 08-12-2022 ALBUTEROL INHALATION Inhale as instructed as needed. 0 08/12/2022 Discontinued (Course of therapy completed) ALBUTEROL INHALA TION Inhale as instructed as needed. 0 Active Comment on above: Inhale as instructed as needed. Inhale 2 Puffs as in structed every 4 hours as needed for wheezing/shortness of breath. 2.5mg 3 times daily as needed over 5-15 minutes for wheezing and shortness of breath. Use 3 mL via nebuliz er every 4 hours as needed for wheezing/shortness of breath. Inhale by nebulizer over 5-15 minutes. Inhale 2 Puffs as in structed every 6 hours as needed for wheezing/shortness of breath. Albuterol (Eqv-ProAir HFA) 90 mcg/inh inhalation aerosol (1 source) Start: 04-11-19 24 Albuterol (Eqv-ProAir HFA) 90 mcg/inh inhalation aerosol 0 Refill(s) Start Date: 04/11/23 Status: Ordered albuterol 0.833 mg/ml / ipratropium bromide 0.167 mg/ml inhalation solution (4 sources) Anticholinergic, beta2-Adrenergic Agonist Start: 01-02-20 take 3 mL by inhalation every six hours as needed ipratropium-albutero l (DUONEB) 0.5-2.5 (3) MG/3ML SOLN nebulizer solution Inhale 3 mLs into the lungs every 6 hours as needed for Shortness of Breath 25 vial 0 01/01/2018 Active aspirin 81 mg chewable tablet (1 source) Platelet Aggregation Inhibitor, Nonsteroidal Anti-inflammatory Drug Start: 09-14-19 20 aspirin 81 MG chewable tablet DAILY 0 09/14/2019 Active Blood-Glucose Meter (20 sources) Start: 04-10-19 24 Blood-Glucose Meter Indications: Lightheaded , Hypoglycemia 1 Each once daily. 1 Each 04/10/2023 Active Start: 04-10-2023 Blood-Glucose Meter Indications: Lightheaded , Hypoglycemia 1 Each once daily. 1 Each 0 04/10/2023 Active Comment on above: 1 Each once daily. Blood-Glucose Meter,Continuous (DEXCOM G6 CEMETERY VAULT INSTALLER) misc (20 sources) Start: 04-22-2023 End: 11-06-2023 Blood-Glucose Meter,Continuous (DEXCOM G6 CEMETERY VAULT INSTALLER) misc Indications: Hypoglycemia 1 Each once daily. 1 Each 04/22/2023 11/06/2023 Discontinued Start: 04-22-2023 Blood-Glucose Meter,Continuous (DEXCOM G6 CEMETERY VAULT INSTALLER) misc Indications: Hypoglycemia 1 Each once daily. 1 Each 04/22/2023 Active Start: 04-22-2023 Blood-Glucose Meter,Continuous (DEXCOM G6 CEMETERY VAULT INSTALLER) misc Indications: Hypoglycemia 1 Each once daily. 1 Each 0 04/22/2023 Active Comment on above: 1 Each once daily. Blood-Glucose Meter,Continuous (DEXCOM G7 CEMETERY VAULT INSTALLER) misc (20 sources) Start: 06-02-2024 Blood-Glucose Meter,Continuous (DEXCOM G7 CEMETERY VAULT INSTALLER) misc Indications: Reactive hypoglycemia Use as directed to monitor blood glucose 4-6 times per day. Reactive hypoglycemia [E16.1] 1 each 3 06/02/2024 Active Start: 11-06-2023 End: 06-02-2024 Blood-Glucose Meter,Continuo us (DEXCOM G7 CEMETERY VAULT INSTALLER) misc Indications: Reactive hypoglycemia Use as directed to monitor blood glucose 4-6 times per day. Reactive hypoglycemia [E16.1] 1 Each 3 11/06/2023 06/02/2024 Discontinued Start: 11-06-2023 Blood-Glucose Meter,Continuous (DEXCOM G7 CEMETERY VAULT INSTALLER) misc Indications: Reactive hypoglycemia Use as directed to monitor blood glucose 4-6 times per day. Reactive hypoglycemia [E16.1] 1 Each 3 11/06/2023 Active Blood-Glucose Sensor (DEXCOM G6 SENSOR) mallika (20 sources) Start: 04-29-2023 End: 11-06-2023 Blood-Glucose Sensor (DEXCOM G6 SENSOR) mallika Indications: Hypoglycemia 1 Each once daily. 3 Each 04/29/2023 11/06/2023 Discontinued Start: 04-29-2023 End: 04-28-2024 Blood-Glucose Sensor (DEXCOM G6 SENSOR) mallika Indications: Hypoglycemia 1 Each once daily. 3 Each 04/29/2023 04/28/2024 Active Start: 04-22-2023 End: 04-29-2023 Blood-Glucose Sensor (DEXCOM G6 SENSOR) mallika Indications: Hypoglycemia 1 Each once daily. 1 Each 0 04/22/2023 04/29/2023 Discontinued Start: 04-22-2023 Blood-Glucose Sensor (DEXCOM G6 SENSOR) mallika Indications: Hypoglycemia 1 Each once daily. 1 Each 0 04/22/2023 Active Comment on above: 1 Each once daily. Blood-Glucose Sensor (DEXCOM G7 SENSOR) mallika (20 sources) Start: 06-02-2024 Blood-Glucose Sensor (DEXCOM G7 SENSOR) mallika Indications: Reactive hypoglycemia Use as directed to monitor blood glucose 4-6 times per day. Reactive hypoglycemia [E16.1] 3 each 06/02/2024 Active Start: 11-06-2023 End: 06-02-2024 Blood-Glucose Sensor (DEXCOM G7 SENSOR) mallika Indications: Reactive hypoglycemia Use as directed to monitor blood glucose 4-6 times per day. Reactive hypoglycemia [E16.1] 3 Each 11/06/2023 06/02/2024 Discontinued Start: 11-06-2023 Blood-Glucose Sensor (DEXCOM G7 SENSOR) mallika Indications: Reactive hypoglycemia Use as directed to monitor blood glucose 4-6 times per day. Reactive hypoglycemia [E16.1] 3 Each 11/06/2023 Active budesonide 0.25 mg/ml inhalation suspension (20 sources) Corticosteroid Start: 06-05-2023 End: 02-12-2024 take 2 mL by inhalation every twelve hours budesonide (PULMICORT) 0.5 mg/2 mL nebulizer solution USE 2 ML VIA NEBULIZER EVERY 12 HOURS. INHALE OVER 5-15 MINUTES 360 mL 1 02/12/2024 Active Start: 04-11-2023 take 1 dose by inhal ation twice daily budesonide 0.5 mg/2 mL inhalation suspension Dose : 0.5 mg = 2 mL, Inhalation, BID, # 120 mL, 0 Refill(s) Start Date: 04/11/23 Status: Ordered Start: 01-31-2023 End: 04-29-2023 take 2 mL by inhalation every twelve hours budesonide (PULMICORT) 0.5 mg/2 mL nebulizer solution Indications: Late onset asthma, severe persistent, with status asthmaticus USE 2 ML VIA NEBULIZER EVERY 12 HOURS. INHALE OVER 5-15 MINUTES 360 mL 1 01/31/2023 04/29/2023 Discontinued Start: 09-26-2022 take 2 mL by inhalat ion every twelve hours budesonide (PULMICORT) 0.5 mg/2 mL nebulizer solution Indications: Late onset asthma, severe persistent, with status asthmaticus Use 2 mL via nebulizer every 12 hours. Inhale over 5-15 minutes 120 mL 4 09/26/2022 Active Comment on above: Use 2 mL via nebuliz er every 12 hours. Inhale over 5-15 minutes busPIRone hydrochloride 15 mg oral tablet (20 sources) Start: 03-23-2024 take 1 tablet by mouth three times daily busPIRone (BUSPAR) 15 mg tablet Take 15 mg by mouth three times a day. 03/23/2024 Active Start: 08-07-2023 End: 01-19-2024 take 1 tablet by mouth three times daily busPIRone (BUSPAR) 10 mg tablet Indications: Generalized anxiety disorder Take 1 tablet by mouth three times a day. 270 tablet 10/21/2023 01/19/2024 Active calcium chloride 0.0014 meq/ml / potassium chloride 0.004 meq/ml / sodium chloride 0.103 meq/ml / sodium lactate 0.028 meq/ml injectable solution (2 sources) Start: 08-10-2021 lactated ringers infusion cefadroxil 500 mg oral capsule (1 source) Cephalosporin Antibacterial Start: 08-10-2021 End: 08-17-2021 take 1 capsule by mouth twice daily cefadroxil (DURICEF) 500 MG capsule Take 1 capsule by mouth 2 times daily for 7 days 14 capsule 0 08/10/2021 08/17/2021 Active cetirizine hydrochloride 10 mg oral tablet (5 sources) Histamine-1 Receptor Antagonist take 1 tablet by mouth in the morning cetirizine (ZyrTEC) 10 MG tablet Take 10 mg by mouth in the morning. 0 Active 1 ml diphenhydrAMINE hydrochloride 50 mg/ml cartridge (1 source) Histamine-1 Receptor Antagonist Start: 08-10-2021 End: 08-10-2021 diphenhydrAMINE (BENADRYL) injection 12.5 mg doxycycline monohydrate 100 mg oral capsule (1 source) Tetracycline-class Drug Start: 08-26-2023 End: 08-31-2023 take 1 capsule by mouth twice daily doxycycline monohydrate (MONODOX) 100 mg capsule Indications: Infected abrasion of right knee, initial encounter Take 1 capsule by mouth two times a day for 5 days. 10 capsule 0 08/26/2023 08/31/2023 Active ergocalciferol 1.25 mg oral capsule (20 sources) Provitamin D2 Compound Start: 04-03-2022 End: 04-09-2024 take 1 capsule by mouth every week ergocalciferol 50,000 unit capsule (VITAMIN D2, DRISDOL) Take 1 capsule by mouth one time a week. 12 capsule 3 04/10/2023 Active Comment on above: Take 1 capsule by mo [facility] one time a week. Ethinyl Estradiol / Ferrous fumarate / Norethindrone (2 sources) Estrogen Start: 08-31-2018 take 1 tablet by mouth once daily JUNE FE 03/08 1-20 MG-MCG per tablet take 1 tablet by mouth once daily 0 08/31/2018 Active ferrous sulfate 325 mg oral tablet (20 sources) Start: 04-03-2022 End: 04-10-2023 take 1 tablet by mouth twice daily ferrous sulfate 325 mg (65 mg iron) tablet Take 1 tablet by mouth two times a day. 180 tablet 1 04/10/2023 Active End: 04-02-2022 take 1 tablet by mouth once daily at breakfast ferrous sulfate 325 mg (65 mg iron) tablet Take 325 mg by mouth daily with breakfast. 0 04/02/2022 Discontinued Comment on above: Take 325 mg by mouth daily with breakfast. Take 1 tablet by aleks twice daily. TAKE 1 TABLET BY ALEKS TH TWICE A DAY Take 1 tablet by aleks th two times a day. fexofenadine hydrochloride 180 mg oral tablet (20 sources) Histamine-1 Receptor Antagonist Start: 10-07-2018 fexofenadine (LAQUITA) 180 MG tablet TAKE ONE TABLET EVERY DAY 90 tablet 1 10/07/2018 Active FEXOFENADINE HCL (LAQUITA ALLERGY ORAL) Take by mouth once daily. Active FEXOFENADINE HCL (LAQUITA ALLERGY ORAL) Take by mouth once daily. 0 Active Fexofenadine HCl (LAQUITA PO) Take by mouth daily 0 Suspended Fexofenadine HCl (LAQUITA PO) Take by mouth daily 0 Active Comment on above: Take by mouth once d aily. fluticasone propionate 0.05 mg/actuat metered dose nasal spray (20 sources) Corticosteroid Start: 05-23-19 24 take 1 spray(s) nasal route once daily fluticasone (FLONASE) 50 mcg/actuation nasal spray Use 1 [place] in each nostril once daily. 1 Each 05/23/2023 Active Comment on above: Use 1 [place] in each nostril once daily. 60 actuat fluticasone propionate 0.25 mg/actuat / salmeterol 0.05 mg/actuat dry powder inhaler (20 sources) Corticosteroid, beta2-Adrenergic Agonist Start: 12-19-19 24 take 1 puff(s) by inhalation twice daily fluticasone-salmet martínez (WIXELA INHUB) 250-50 mcg/dose inhaler INHALE 1 PUFF INSTRUCTED TWO TIMES A DAY. 180 Each 1 12/19/2023 Active Start: 09-08-2023 End: 12-19-2023 take 1 puff(s) by inhalation twice daily fluticasone-salmeterol (ADVAIR, WIXELA) 250-50 mcg/dose inhaler INHALE 1 PUFF INSTRUCTED TWO TIMES A DAY. 180 Each 09/08/2023 12/19/2023 Discontinued Start: 09-08-2023 take 1 puff(s) by in halation twice daily fluticasone-salmeterol (ADVAIR, WIXELA) 250-50 mcg/dose inhaler INHALE 1 PUFF INSTRUCTED TWO TIMES A DAY. 180 Each 09/08/2023 Active Start: 09-08-2023 take 1 puff(s) by in halation twice daily fluticasone-salmeterol (ADVAIR, WIXELA) 250-50 mcg/dose inhaler INHALE 1 PUFF INSTRUCTED TWO TIMES A DAY. 180 Each 0 09/08/2023 Active Start: 06-06-2023 End: 09-08-2023 take 1 puff(s) by inhalation twice daily fluticasone-salmeterol (WIXELA INHUB) 250-50 mcg/dose inhaler Inhale 1 Puff as instructed two times a day. 1 Each 06/06/2023 09/08/2023 Discontinued Start: 06-06-2023 take 1 puff(s) by in halation twice daily fluticasone-salmeterol (WIXELA INHUB) 250-50 mcg/dose inhaler Inhale 1 Puff as instructed two times a day. 1 Each 06/06/2023 Active Start: 08-22-2022 End: 09-26-2022 take 1 puff(s) by mouth twice daily fluticasone-salmeterol (ADVAIR DISKUS) 100-50 mcg/dose inhaler Indications: Mild intermittent asthma with acute exacerbation Inhale 1 Puff as instructed twice daily. RINSE AND GARGLE MOUTH WITH WATER AFTER EACH USE. 60 Each 4 08/22/2022 09/26/2022 Discontinued Start: 08-22-2022 take 1 puff(s) by mo [facility] twice daily fluticasone-salmeterol (ADVAIR DISKUS) 100-50 mcg/dose inhaler Indications: Mild intermittent asthma with acute exacerbation Inhale 1 Puff as instructed twice daily. RINSE AND GARGLE MOUTH WITH WATER AFTER EACH USE. 60 Each 4 08/22/2022 Active Comment on above: Inhale 1 Puff as ins tructed twice daily. RINSE AND GARGLE MOUTH WITH WATER AFTER EACH USE. hydrocortisone 5 mg oral tablet (20 sources) Corticosteroid Start: End: take 3 tablets by mouth once daily hydrocortisone (CORTEF) 5 mg tablet Take 3 tablets by mouth once daily. 90 tablet 1 04/14/2023 06/13/2023 Active Comment on above: Take 3 tablets by mo ut once daily. 1 ml HYDROmorphone hydrochloride 1 mg/ml cartridge (2 sources) Opioid Agonist Start: HYDROmorphone (DILAUDID) injection 0.5 mg Start: 08-10-2021 HYDROmorphone (DILAUDID) injection 0.25 mg labetalol (NORMODYNE;TRANDATE) injection 5 mg (1 source) Start: 08-10-2021 labetalol (NORMODYNE;TRANDATE) injection 5 mg lamoTRIgine 100 mg oral tablet (20 sources) Mood Stabilizer , Anti-epile ptic Agent Start: 07-18-2023 End: 07-29-2024 take 1 tablet by mouth once daily at bedtime lamoTRIgine (LAMICTAL) 100 mg tablet Indications: Bipolar II disorder (HCC) TAKE 1 TABLET BY MOUTH EVERYDAY AT BEDTIME 90 tablet 07/29/2024 Active Start: 12-19-2022 End: 07-18-2023 take 1 tablet by mouth once daily at bedtime lamoTRIgine (LAMICTAL) 25 mg tablet TAKE 1 TABLET BY MOUTH EVERYDAY AT BEDTIME 90 tablet 3 05/21/2023 07/18/2023 Discontinued (Adjust Sig - Block E-Cancel) Start: 08-28-2022 End: 09-29-2022 take 1 tablet by mouth once daily at bedtime lamoTRIgine (LAMICTAL) 25 mg tablet TAKE 1 TABLET BY MOUTH EVERYDAY AT BEDTIME 90 tablet 0 09/30/2022 Active Start: 06-25-2022 take 1 tablet by aleks th once daily at bedtime lamoTRIgine (LAMICTAL) 25 mg tablet 1 po qhs 30 tablet 1 06/25/2022 Active Comment on above: 1 po qhs TAKE 1 TABLET BY ALEKS TH EVERYDAY AT BEDTIME 10 ml lidocaine hydrochloride 10 mg/ml injection (1 source) Antiarrhythmic, Amide Local Anesthetic Start: 08-10-2021 End: 08-10-2021 lidocaine PF 1 % injection 1 mL 1 ml meperidine hydrochloride 25 mg/ml cartridge (1 source) Opioid Agonist Start: 08-10-2021 meperidine (DEMEROL) injection 12.5 mg 1 ml mepolizumab 100 mg/ml auto-injector (20 sources) Interleukin-5 Antagonist Start: 02-05-2024 mepolizumab (NUCALA) 100 mg/mL auto-injector INJECT 1 PEN UNDER THE SKIN EVERY 28 DAYS 1 mL 13 02/05/2024 Active Start: 02-05-2023 Nucala Prefill ed Autoinjector 100 mg/mL subcutaneous solution Dose : 100 mg =, Subcutaneous, q4wk, # 1 mL, 0 Refill(s) Start Date: 04/11/23 Status: Ordered Start: 10-30-2022 mepolizumab (N UCALA) 100 mg injection Indications: Pulmonary eosinophilia (HCC) , Late onset asthma, severe persistent, with status asthmaticus (HCC) Inject 100 mg subcutaneously every 4 weeks. 1 Each 12 10/30/2022 Active Comment on above: Inject 100 mg subcut aneously every 4 weeks. 24 hr metFORMIN hydrochloride 500 mg extended release oral tablet (20 sources) Biguanide Start: End: take 1 tablet by mouth three times daily at mealtime metFORMIN ER (GLUCOPHAGE XR) 500 mg 24 hr tablet Indications: Reactive hypoglycemia Take 1 tablet by mouth three times a day with meals. 270 tablet 3 06/02/2024 06/02/2025 Active Comment on above: Take 1 tablet by aleks th three times a day with meals. montelukast 10 mg oral tablet (20 sources) Leukotriene Receptor Antagonist Start: 019 End: 025 take 1 tablet by mouth once daily montelukast (SINGULAIR) 10 mg tablet Indications: Mild intermittent asthma, uncomplicated (HCC) TAKE 1 TABLET BY MOUTH EVERY DAY 90 tablet 04/09/2024 Active Comment on above: TAKE 1 TABLET BY ALEKS TH EVERY DAY FOR 90 DAYS Take 1 tablet by aleks th once daily. TAKE 1 TABLET BY ALEKS TH EVERY DAY mupirocin 0.02 mg/mg topical ointment (3 sources) RNA Synthetase Inhibitor Antibacterial Start: End: mupirocin (BACTROBAN) 2 % ointment Indications: Infected abrasion of right knee, initial encounter Apply to affected area three times a day for 10 days. 15 g 0 08/26/2023 09/05/2023 Active Nebulizer and Compressor For Neb (20 sources) Start: Nebulizer and Compressor For Neb Indications: Mild intermittent asthma, uncomplicated (HCC) Use as directed 1 Each 04/18/2022 Active Start: 04-18-2022 Nebulizer and Compressor For Neb Indications: Mild intermittent asthma, uncomplicated Use as directed 1 Each 04/18/2022 Active Start: 04-18-2022 Nebulizer and Compressor For Neb Indications: Mild intermittent asthma, uncomplicated Use as directed 1 Each 0 04/18/2022 Active Start: 04-17-2022 Nebulizer and Compressor For Neb Indications: Mild intermittent asthma, uncomplicated Use as directed 1 Each 0 04/17/2022 Active Comment on above: Use as directed nitrofurantoin, macrocrystals 25 mg / nitrofurantoin, monohydrate 75 mg oral capsule (2 sources) Nitrofuran Antibacterial Start: End: take 1 capsule by mouth twice daily nitrofurantoin, macrocrystal-monohyd rate, (MACROBID) 100 MG capsule Take 1 capsule by mouth 2 times daily for 7 doses 14 capsule 0 12/22/2018 12/26/2018 Active 2 ml ondansetron 2 mg/ml injection (1 source) Serotonin-3 Receptor Antagonist Start: End: ondansetron (ZOFRAN) injection 4 mg oxyCODONE (1 source) Opioid Agonist Start: End: oxyCODONE (ROXICODONE) immediate release tablet 5 mg perflutren lipid microspheres (DEFINITY) injection 1.65 mg (1 source) Start: End: perflutren lipid microspheres (DEFINITY) injection 1.65 mg Respiratory Therapy Supplies (NEBULIZER) MALLIKA (3 sources) Start: Respiratory Therapy Supplies (NEBULIZER) MALLIKA Use as directed with soln q 6 hrs prn 1 Device 0 09/22/2014 Active semaglutide, weight loss, (WEGOVY) 1 mg/0.5 mL pen injector (1 source) Start: inject 1 mg by subcutaneous injection every week semaglutide, weight loss, (WEGOVY) 1 mg/0.5 mL pen injector Inject 1 mg subcutaneously one time a week. 6 mL 1 08/30/2024 Active 5 ml sodium chloride 9 mg/ml injection (11 sources) Start: 022 0.9 % sodium chloride bolus Start: 08-10-2021 0.9 % sodium c hloride infusion Start: 08-10-2021 sodium chlorid e flush 0.9 % injection 5-40 mL Start: 12-21-2018 End: 12-21-2018 0.9 % sodium chloride bolus sodium chloride flush 0.9 % injection 3 mL (1 source) Start: 12-21-2018 sodium chloride flush 0.9 % injection 3 mL sulfamethoxazole 800 mg / trimethoprim 160 mg oral tablet (7 sources) Dihydrofolate Reductase Inhibitor Antibacterial, Sulfonamide Antimicrobial Start: 05-21-2023 End: 05-31-2023 take 1 tablet by mouth twice daily sulfamethoxazole- trimethoprim (BACTRIM DS) 800-160 mg per tablet Take 1 tablet by mouth two times a day for 10 days. 20 tablet 0 05/21/2023 05/31/2023 Active Comment on above: Take 1 tablet by aleks th two times a day for 10 days. Symbicort 160 mcg-4.5 mcg/inh Inhaler (1 source) Start: 04-11-2023 Symbicort 160 mcg-4.5 mcg/inh Inhaler 0 Refill(s) Start Date: 04/11/23 Status: Ordered tirzepatide (MOUNJARO) 2.5 mg/0.5 mL pen injector (8 sources) Start: 11-26-2022 End: 02-24-2023 inject 2.5 mg by subcutaneous injection every week tirzepatide (MOUNJARO) 2.5 mg/0.5 mL pen injector Inject 2.5 mg subcutaneously one time a week. 2 mL 2 11/26/2022 02/24/2023 Active Comment on above: Inject 2.5 mg subcut aneously one time a week. tirzepatide, weight loss (ZEPBOUND) 2.5 mg/0.5 mL pen injector (12 sources) Start: 06-02-2024 End: 06-02-2025 tirzepatide, weight loss (ZEPBOUND) 2.5 mg/0.5 mL pen injector Indications: Reactive hypoglycemia , Class 3 severe obesity due to excess calories with serious comorbidity and body mass index (BMI) of 40.0 to 44.9 in adult , Asthma, late onset, severe persistent, uncomplicated (HCC) Inject 2.5 mg subcutaneously one time a week. 2 mL 11 06/02/2024 06/02/2025 Active Start: 06-02-2024 End: 06-02-2025 tirzepatide, weight loss (ZE PBOUND) 2.5 mg/0.5 mL pen injector Indications: Reactive hypoglycemia , Class 3 severe obesity due to excess calories with serious comorbidity and body mass index (BMI) of 40.0 to 44.9 in adult (HCC) , Asthma, late onset, severe persistent, uncomplicated (HCC) Inject 2.5 mg subcutaneously one time a week. 2 mL 06/02/2024 06/02/2025 Active tirzepatide, weight loss (ZEPBOUND) 5 mg/0.5 mL pen injector (6 sources) Start: 07-21-2024 inject 5 mg by subcutaneous injection every week tirzepatide, weight loss (ZEPBOUND) 5 mg/0.5 mL pen injector Inject 5 mg subcutaneously one time a week. 2 mL 5 07/21/2024 Active traZODone hydrochloride 100 mg oral tablet (20 sources) Serotonin Reuptake Inhibitor Start: 04-28-2024 traZODone (DESYREL) 100 mg tablet take 1 tablet 1 time a day (at bedtime) 04/28/2024 Active Start: 10-21-2023 End: 04-18-2024 take 1 tablet by mouth once daily at bedtime traZODone (DESYREL) 100 mg tablet Indications: Generalized anxiety disorder Take 1 tablet by mouth daily at bedtime. 90 tablet 1 10/21/2023 04/18/2024 Active Start: 07-22-2023 End: 03-23-2024 take 1 tablet by mouth once daily at bedtime traZODone (DESYREL) 50 mg tablet Indications: Generalized anxiety disorder , Major depressive disorder, recurrent episode, moderate (HCC) Take 1 tablet by mouth daily at bedtime. 90 tablet 1 09/25/2023 10/21/2023 Discontinued triamcinolone acetonide 1 mg/ml topical cream (2 sources) Corticosteroid Start: 01-03-2023 End: 01-13-2023 triamcinolone acetonide (KENALOG) 0.1 % cream Indications: Insect bite of left upper arm, initial encounter Apply 1 application to affected area three times a day for 10 days. Apply sparingly to area for rash/itching. 80 g 0 01/03/2023 01/13/2023 Active Comment on above: Apply 1 application to affected area three times a day for 10 days. Apply sparingly to area for rash/itching. Completed/Discontinued Medications Medication Drug Class(es) Dates Sig (Normalized) Sig (Original) acetaminophen 500 mg oral tablet (2 sources) Start: 08-10-2021 End: 08-10-2021 acetaminophen (TYLENOL) tablet 1,000 mg Start: 07-29-2020 End: 07-29-2020 acetaminophen (TYLENOL) tabl et 1,000 mg amoxicillin 500 mg oral tablet (12 sources) Penicillin-class Antibacterial Start: 01-24-2023 take 1 tablet by mouth three times daily Amoxicillin 500 mg tablet take 1 tablet by mouth three times a day for 7 days 0 01/24/2023 Active Start: 08-12-2022 End: 08-19-2022 take 1 tablet by mouth twice daily amoxicillin (AMOXIL) 875 mg tablet Indications: Acute otitis media, right Take 1 tablet by mouth twice daily for 7 days. 14 tablet 0 08/12/2022 08/19/2022 Active Comment on above: Take 1 tablet by aleks th twice daily for 7 days. take 1 tablet by aleks th three times a day for 7 days 24 hr amphetamine aspartate 7.5 mg / amphetamine sulfate 7.5 mg / dextroamphetamine saccharate 7.5 mg / dextroamphetamine sulfate 7.5 mg extended release oral capsule (20 sources) Central Nervous System Stimulant Start: 06-09-19 End: 08-19-19 24 take 1 capsule by mouth once daily amphetamine-dextroam phetamine XR (ADDERALL XR) 30 mg capsule Indications: Attention deficit hyperactivity disorder (ADHD), predominantly inattentive type Take 1 capsule by mouth once daily for 30 days. 30 capsule 0 06/09/2023 08/19/2023 Discontinued (Course of therapy completed) Start: 05-21-2023 End: 08-19-2023 take 1 capsule by mouth once daily amphetamine-dextroamphetamine XR (ADDERA LL XR) 15 mg capsule Indications: Attention deficit hyperactivity disorder (ADHD), predominantly inattentive type Take 1 capsule by mouth once daily for 30 days. 30 capsule 0 05/21/2023 08/19/2023 Discontinued (Course of therapy completed) Comment on above: Take 1 capsule by mo [facility] once daily for 30 days. ARIPiprazole 15 mg oral tablet (16 sources) Atypical Antipsychotic Start: 01-27-20 22 End: 05-01-19 23 take 1 tablet by mouth once daily ARIPiprazole (ABILIFY) 15 mg tablet TAKE 1 TABLET BY MOUTH EVERY DAY FOR 30 DAYS 0 01/26/2022 04/30/2022 Discontinued Start: 09-24-2021 take 1 tablet by aleks once daily ARIPiprazole (Abilify) 10 MG tablet Take 10 mg by mouth daily. 0 09/24/2021 Active Start: 11-30-2020 take 1 tablet by aleks once daily ARIPiprazole (ABILIFY) 10 MG tablet Indications: Moderate episode of recurrent major depressive disorder (HCC) , Anxiety Take 1 tablet by mouth daily 90 tablet 1 11/30/2020 Suspended Start: 07-05-2020 take 1 tablet by aleks once daily ARIPiprazole (ABILIFY) 10 MG tablet Indications: Moderate episode of recurrent major depressive disorder (HCC) , Anxiety Take 1 tablet by mouth daily 90 tablet 1 07/05/2020 Active Start: 11-20-2018 take 1 tablet by aleks once daily ARIPiprazole (ABILIFY) 5 MG tablet Take 1 tablet by mouth daily 30 tablet 3 11/20/2018 Active Comment on above: TAKE 1 TABLET BY ALEKS EVERY DAY FOR 30 DAYS benzonatate 100 mg oral capsule (13 sources) Non-narcotic Antitussive Start: 3 End: 3 take 2 capsules by mouth every eight hours as needed for cough and cough benzonatate (TESSALON PERLES) 100 mg capsule Indications: Cough, unspecified type Take 2 capsules by mouth every 8 hours as needed. 60 capsule 0 09/25/2022 11/26/2022 Discontinued (Other) Comment on above: Take 2 capsules by m out every 8 hours as needed. Blood-Glucose Transmitter (DEXCOM G6 TRANSMITTER) mallika (20 sources) Start: 4 End: 5 Blood-Glucose Transmitter (DEXCOM G6 TRANSMITTER) mallika 1 Each once daily. 1 Each 3 04/29/2023 06/02/2024 Discontinued Start: 04-29-2023 Blood-Glucose Transmitter (DEXCOM G6 TRANSMITTER) mallika 1 Each once daily. 1 Each 3 04/29/2023 Active Start: 04-24-2023 End: 04-29-2023 Blood-Glucose Transmitter (D EXCOM G6 TRANSMITTER) mallika 1 Each once daily. 1 Each 0 04/24/2023 04/29/2023 Discontinued Start: 04-24-2023 Blood-Glucose Transmitter (DEXCOM G6 TRANSMITTER) mallika 1 Each once daily. 1 Each 0 04/24/2023 Active Start: 04-24-2023 End: 04-24-2023 Blood-Glucose Transmitter (D EXCOM G6 TRANSMITTER) mallika 1 Each once daily. 1 Each 0 04/24/2023 04/24/2023 Discontinued Comment on above: 1 Each once daily. brompheniramine maleate 0.4 mg/ml / dextromethorphan hydrobromide 2 mg/ml / pseudoephedrine hydrochloride 6 mg/ml oral solution (16 sources) alpha-Adrenergic Agonist, Uncompetitive D-zcxysi-Q-aspartate Receptor Antagonist, Sigma-1 Agonist Start: End: take 5 mL by mouth every six hours as needed Brompheniramine -Pseudoeph-DM (BROMFED DM) 2-30-10 mg/5 mL syrup Take 5 mL by mouth four times a day as needed. 118 mL 0 05/21/2023 06/20/2023 Start: 07-11-2022 End: 09-25-2022 take 5 mL by mouth every six hours as needed for cough and cough Jzmuxkkbprsemib-Xatzstvcq-RN (BROMFED DM ) 2-30-10 mg/5 mL syrup Indications: Acute cough Take 5 mL by mouth four times daily as needed. 118 mL 0 07/11/2022 09/25/2022 Discontinued Comment on above: Take 5 mL by mouth f our times daily as needed. Take 5 mL by mouth f our times a day as needed. Budesonide / formoterol (20 sources) Corticosteroid, beta2-Adrenergic Agonist Start: 06-05-2023 take 2 puff(s) by inhalation twice daily budesonide-formoter ol (SYMBICORT) 160-4.5 mcg/actuation inhaler Inhale 2 Puffs as instructed two times a day. 1 Each 4 06/05/2023 Active Start: 12-17-2022 End: 04-29-2023 take 2 puff(s) by inhalation twice daily budesonide-formoterol (SYMBICORT) 160-4.5 mcg/actuation inhaler Inhale 2 Puffs as instructed two times a day. 3 Each 2 12/17/2022 04/29/2023 Discontinued Start: 12-17-2022 take 2 puff(s) by in halation twice daily budesonide-formoterol (SYMBICORT) 160-4.5 mcg/actuation inhaler Inhale 2 Puffs as instructed two times a day. 3 Each 2 12/17/2022 Active Start: 09-26-2022 End: 12-17-2022 take 2 puff(s) by inhalation twice daily budesonide-formoterol (SYMBICORT) 160-4.5 mcg/actuation inhaler Inhale 2 Puffs as instructed twice daily. 1 Each 5 09/26/2022 12/17/2022 Discontinued Start: 09-26-2022 take 2 puff(s) by in halation twice daily budesonide-formoterol (SYMBICORT) 160-4.5 mcg/actuation inhaler Inhale 2 Puffs as instructed twice daily. 1 Each 5 09/26/2022 Active Start: 04-02-2022 End: 08-22-2022 take 2 puff(s) by inhalation twice daily budesonide-formoterol (SYMBICORT) 160-4.5 mcg/actuation inhaler Inhale 2 Puffs as instructed twice daily. 1 Each 5 04/02/2022 08/22/2022 Discontinued Start: 04-02-2022 take 2 puff(s) by in halation twice daily budesonide-formoterol (SYMBICORT) 160-4.5 mcg/actuation inhaler Inhale 2 Puffs as instructed twice daily. 1 Each 5 04/02/2022 Active Start: 11-28-2021 take 2 puff(s) by in halation twice daily Symbicort 160-4.5 MCG/ACT inhaler 2 puffs 2 times daily. 0 11/28/2021 Active Start: 11-30-2020 take 2 puff(s) by in halation twice daily budesonide-formoterol (SYMBICORT) 160-4.5 MCG/ACT AERO Indications: Moderate persistent asthma without complication Inhale 2 puffs into the lungs 2 times daily 3 each 1 11/30/2020 Suspended Start: 11-30-2019 take 2 puff(s) by in halation twice daily budesonide-formoterol (SYMBICORT) 160-4.5 MCG/ACT AERO Indications: Moderate persistent asthma without complication Inhale 2 puffs into the lungs 2 times daily 1 Inhaler 5 11/30/2019 Active Start: 12-14-2018 take 2 puff(s) by in halation twice daily budesonide-formoterol (SYMBICORT) 160-4.5 MCG/ACT AERO Inhale 2 puffs into the lungs 2 times daily 3 Inhaler 1 12/14/2018 Active Comment on above: Inhale 2 Puffs as in structed twice daily. Inhale 2 Puffs as in structed two times a day. BUDESONIDE/FORMOTERO L FUMARATE (SYMBICORT INHALATION) (1 source) End: 04-02-19 23 BUDESONIDE/FORMOTERO L FUMARATE (SYMBICORT INHALATION) Inhale as instructed as needed. 0 04/02/2022 Discontinued Comment on above: Inhale as instructed as needed. cariprazine 3 mg oral capsule (20 sources) Atypical Antipsychotic Start: 12-03-19 24 End: 06-03-19 25 take 1 capsule by mouth once daily cariprazine (VRAYLAR) 3 mg capsule Indications: Bipolar II disorder (HCC) Take 1 capsule by mouth once daily. 90 capsule 12/03/2023 06/02/2024 Discontinued Start: 10-08-2023 End: 01-19-2024 take 1 capsule by mouth once daily cariprazine (VRAYLAR) 4.5 mg capsule Indications: Bipolar II disorder (HCC) Take 1 capsule by mouth once daily. 90 capsule 10/21/2023 12/03/2023 Discontinued Start: 09-23-2023 End: 11-22-2023 take 1 capsule by mouth once daily cariprazine (VRAYLAR) 3 mg capsule Indications: Bipolar II disorder (HCC) Take 1 capsule by mouth once daily. 30 capsule 1 09/23/2023 10/08/2023 Discontinued Start: 09-09-2023 End: 11-08-2023 take 1 capsule by mouth once daily cariprazine (VRAYLAR) 1.5 mg capsule Indications: Bipolar II disorder (HCC) Take 1 capsule by mouth once daily. 30 capsule 1 09/09/2023 09/23/2023 Discontinued ceFAZolin (ANCEF) 3000 mg in sodium chloride 0.9% 100 mL IVPB (1 source) Start: 08-10-2021 End: 08-10-2021 ceFAZolin (ANCEF) 3000 mg in sodium chloride 0.9% 100 mL IVPB citalopram 10 mg oral tablet (20 sources) Serotonin Reuptake Inhibitor Start: 11-17-2023 End: 06-02-2024 take 1 tablet by mouth every other day citalopram hydrobromide (CELEXA) 10 mg tablet Indications: Generalized anxiety disorder Take 1 tablet by mouth every other day. 45 tablet 12/03/2023 06/02/2024 Discontinued Start: 08-19-2023 End: 12-22-2023 take 1 tablet by mouth once daily citalopram hydrobromide (CELEXA) 10 mg tablet Indications: Major depressive disorder, recurrent episode, moderate (HCC) Take 1 tablet by mouth once daily. 90 tablet 09/23/2023 10/21/2023 Discontinued (Side Effects) Start: 07-18-2023 End: 11-11-2023 take 1 tablet by mouth once daily citalopram (CELEXA) 20 mg tablet Indications: Major depressive disorder, recurrent episode, moderate (HCC) Take 1 tablet by mouth once daily. 90 tablet 0 08/13/2023 08/19/2023 Discontinued Start: 12-19-2022 End: 05-20-2024 take 1 tablet by mouth once daily citalopram (CELEXA) 40 mg tablet Take 1 tablet by mouth once daily. 90 tablet 3 05/21/2023 07/18/2023 Discontinued (Adjust Sig - Block E-Cancel) Start: 10-07-2018 End: 11-07-2022 take 1 tablet by mouth once daily citalopram (CELEXA) 40 mg tablet TAKE 1 TABLET BY MOUTH EVERY DAY FOR 90 DAYS 0 02/05/2022 08/08/2022 Discontinued Comment on above: TAKE 1 TABLET BY ALEKS TH EVERY DAY FOR 90 DAYS Take 1 tablet by aleks th once daily. take 1 tablet by aleks th every day famotidine 20 mg oral tablet (1 source) Histamine-2 Receptor Antagonist Start: 08-10-2021 End: 08-10-2021 famotidine (PEPCID) tablet 20 mg Start: 08-10-2021 End: 08-10-2021 famotidine (PEPCID) tablet 2 0 mg flash glucose scanning reade r (FREESTYLE JENNY 2 READER) (6 sources) Start: 04-18-2023 End: 04-29-2023 flash glucose scanning reade r (FREESTYLE JENNY 2 READER) 1 Each once daily. 1 Each 0 04/18/2023 04/29/2023 Discontinued Start: 04-18-2023 flash glucose scanning reader (FREESTYLE JENNY 2 READER) 1 Each once daily. 1 Each 0 04/18/2023 Active Comment on above: 1 Each once daily. flash glucose sensor (FREESTYLE JENNY 2 SENSOR) kit (6 sources) Start: 04-18-2023 End: 04-29-2023 flash glucose sensor (FREESTYLE JENNY 2 SENSOR) kit Indications: Hypoglycemia 1 Each once daily. 1 Each 0 04/18/2023 04/29/2023 Discontinued Start: 04-18-2023 flash glucose sensor (FREESTYLE JENNY 2 SENSOR) kit Indications: Hypoglycemia 1 Each once daily. 1 Each 0 04/18/2023 Active Comment on above: 1 Each once daily. fluconazole 100 mg oral tablet (20 sources) Azole Antifungal Start: 024 End: 025 take 1 tablet by mouth once daily fluconazole (DIFLUCAN) 100 mg tablet Take 1 tablet by mouth once daily. 3 tablet 05/21/2023 03/09/2024 Discontinued (Course of therapy completed) Comment on above: Take 1 tablet by aleks th once daily. ibuprofen 600 mg oral tablet (1 source) Nonsteroidal Anti-inflammatory Drug Start: 017 End: 023 take 1 tablet by mouth every six hours as needed ibuprofen (MOTRIN) 600 mg tablet Take 1 tablet by mouth every 6 hours as needed. 60 tablet 0 08/09/2016 04/02/2022 Discontinued Comment on above: Take 1 tablet by aleks th every 6 hours as needed. 200 actuat levalbuterol 0.045 mg/actuat metered dose inhaler (6 sources) beta2-Adrenergic Agonist Start: End: take 2 puff(s) by inhalation every four hours as needed for wheezing levalbuterol tartrate HFA 45 mcg/actuation inhaler Inhale 2 Puffs as instructed every 4 hours as needed for wheezing/shortness of breath. 1 Each 4 04/24/2023 05/12/2023 Discontinued Comment on above: Inhale 2 Puffs as in structed every 4 hours as needed for wheezing/shortness of breath. lurasidone hydrochloride 80 mg oral tablet (20 sources) Atypical Antipsychotic Start: End: take 1 tablet by mouth once daily at bedtime lurasidone (LATUDA) 80 mg tablet Indications: Bipolar II disorder (HCC) Take 1 tablet by mouth daily at bedtime. Take with a 350 calorie snack. 30 tablet 1 08/19/2023 09/23/2023 Discontinued (Side Effects) Start: 07-18-2023 End: 09-16-2023 take 1 tablet by mouth once daily at bedtime lurasidone (LATUDA) 60 mg tab tablet Indications: Bipolar II disorder (HCC) Take 1 tablet by mouth daily at bedtime. Take with a 350 calorie snack. 30 tablet 1 07/18/2023 08/19/2023 Discontinued meloxicam 15 mg oral tablet (20 sources) Nonsteroidal Anti-inflammatory Drug Start: 03-17-2023 End: 04-16-2023 take 1 tablet by mouth once daily meloxicam (MOBIC) 15 mg tablet Take 1 tablet by mouth once daily. 30 tablet 1 03/17/2023 04/16/2023 Start: 11-26-2022 take 1 tablet by aleks th once daily meloxicam (MOBIC) 7.5 mg tablet Take 1 tablet by mouth once daily. 30 tablet 2 11/26/2022 Active Start: 02-11-2022 End: 09-25-2022 meloxicam (MOBIC) 15 mg tabl et Comment on above: TAKE 1 TABLET BY ALEKS TH EVERY DAY IN THE MORNING Take 1 tablet by aleks th once daily. nystatin [id number] unt/ml oral suspension (6 sources) Polyene Antifungal Start: 01-29-20 End: 04-10-19 take 5 mL by mouth four times daily nystatin (MYCOSTATIN) 100,000 unit/mL suspension Take 5 mL by mouth four times daily. Swish and swallow. 60 mL 0 01/28/2023 04/10/2023 Discontinued Comment on above: Take 5 mL by mouth f our times daily. Swish and swallow. oseltamivir 75 mg oral capsule (2 sources) Neuraminidase Inhibitor Start: 05-23-19 End: 05-28-19 take 1 capsule by mouth twice daily oseltamivir (TAMIFLU) 75 mg capsule Take 1 capsule by mouth two times a day for 5 days. 10 capsule 0 05/23/2023 05/28/2023 Comment on above: Take 1 capsule by mo [facility] two times a day for 5 days. phentermine hydrochloride 37.5 mg oral tablet (1 source) Sympathomimetic Amine Anorectic Start: 11-27-19 End: 12-07-19 take 1 tablet by mouth once daily Phentermine HCl (ADIPEX-P) 37.5 mg tablet Indications: Abnormal weight gain Take 1 tablet by mouth once daily for 30 days. 1 po daily bmi 46 30 tablet 0 11/26/2022 12/06/2022 Discontinued Comment on above: Take 1 tablet by aleks once daily for 30 days. 1 po daily bmi 46 predniSONE 20 mg oral tablet (20 sources) Start: 06-05-19 End: 03-09-19 predniSONE (DELTASONE) 20 mg tablet 2 a day for 3 days 6 tablet 1 06/05/2023 03/09/2024 Discontinued (Course of therapy completed) Start: 01-10-2023 take 1 tablet by aleks th once daily, then take 3 tablets by mouth once daily, then take 2 tablets by mouth once daily, then take 1 tablet by mouth once daily predniSONE (DELTASONE) 20 mg tablet Take 1 tablet by mouth once daily. take 3 a day for 2 days the 2 a day for 2 days then 1 a day for 2 days 12 tablet 0 01/10/2023 Active Start: 01-03-2023 End: 01-08-2023 take 2 tablets by mouth once daily predniSONE (DELTASONE) 20 mg tablet Indications: Insect bite of left upper arm, initial encounter Take 2 tablets by mouth once daily for 5 days. 10 tablet 0 01/03/2023 01/08/2023 Active Start: 12-12-2022 End: 04-10-2023 predniSONE (DELTASONE) 20 mg tablet take 3 a day for 2 days the 2 a day for 2 days then 1 a day for 2 days 12 tablet 0 02/13/2023 04/10/2023 Discontinued Start: 09-26-2022 End: 11-26-2022 predniSONE (DELTASONE) 20 mg tablet 3 a day for 4 days then 2 a day for 4 days then 1 for 4 days then 1/2 for 4 days 26 tablet 0 09/26/2022 11/26/2022 Discontinued (Other) Start: 08-22-2022 End: 09-26-2022 take 2 tablets by mouth once daily predniSONE (DELTASONE) 20 mg tablet Indications: Cough, unspecified type , Chest tightness , Mild asthma, unspecified whether complicated, unspecified whether persistent Take 2 tablets by mouth once daily for 5 days. 10 tablet 0 09/25/2022 09/26/2022 Discontinued (Course of therapy completed) Start: 03-12-2022 End: 03-16-2022 predniSONE (Deltasone) 10 MG tablet Take 4 tablets (40 mg) by mouth daily for 4 days. Do not start before March 12, 2022. 16 tablet 0 03/12/2022 03/16/2022 Active Start: 03-11-2022 End: 03-11-2022 predniSONE (Deltasone) table t 60 mg Start: 12-14-2018 predniSONE (DE LTASONE) 20 MG tablet Indications: Moderate persistent asthma with exacerbation Take 3 tablets daily for 5 days, then 2 tablets daily for 3 days, then 1 tablet daily for 2 days. 23 tablet 0 12/14/2018 Active Comment on above: Take 2 tablets by mo ut once daily. Take 2 tablets by mo uth once daily for 5 days. 3 a day for 4 days t hen 2 a day for 4 days then 1 for 4 days then 1/2 for 4 days Take 1 tablet by aleks th once daily. take 3 a day for 2 days the 2 a day for 2 days then 1 a day for 2 days take 3 a day for 2 d ays the 2 a day for 2 days then 1 a day for 2 days 2 a day for 3 days VIT CALC,IRON,FOLIC ( #2 ORAL) (1 source) End: 04-02-19 take 1 tablet by mouth once daily VIT CALC,IRON,FOLIC ( #2 ORAL) Take 1 tablet by mouth once daily. 0 04/02/2022 Discontinued Comment on above: Take 1 tablet by aleks th once daily. QUEtiapine 100 mg oral tablet (3 sources) Atypical Antipsychotic Start: 05-01-19 take 1 tablet by mouth once daily at bedtime QUEtiapine (SEROQUEL) 100 mg tablet Take 1 tablet by mouth daily at bedtime. 90 tablet 1 04/30/2022 Active Comment on above: Take 1 tablet by aleks th daily at bedtime. Respiratory Therapy Supplies (FULL KIT NEBULIZER SET) MISC (5 sources) Start: 11-18-19 18 Respiratory Therapy Supplies (FULL KIT NEBULIZER SET) [facility] Indications: Moderate persistent asthma with acute exacerbation Use every 6 hours as needed 1 each 0 11/17/2017 Suspended Start: 11-17-2017 Respiratory Th erapy Supplies (FULL KIT NEBULIZER SET) [facility] Indications: Moderate persistent asthma with acute exacerbation Use every 6 hours as needed 1 each 0 11/17/2017 Active sertraline 100 mg oral tablet (1 source) Serotonin Reuptake Inhibitor End: 04-02-2022 take 1 tablet by mouth once daily sertraline (ZOLOFT) 100 mg tablet Take 100 mg by mouth once daily. 0 04/02/2022 Discontinued Comment on above: Take 100 mg by mouth once daily. valACYclovir 500 mg oral tablet (1 source) Herpesvirus Nucleoside Analog DNA Polymerase Inhibitor, Herpes Simplex Virus Nucleoside Analog DNA Polymerase Inhibitor, Herpes Zoster Virus Nucleoside Analog DNA Polymerase Inhibitor End: 04-02-2022 take 1 tablet by mouth once daily valACYclovir (VALTREX) 500 mg tablet Take 500 mg by mouth once daily. 0 04/02/2022 Discontinued Comment on above: Take 500 mg by mouth once daily. Problems Active Problems Problem Classification Problem Date Documented Da te Episodic/Chronic Anxiety disorders (20 sources) Anxiety; Translations: [Anxiety disorder, unspecified] Onset: 03-20-2015 03-20-2015 Chronic Asthma (20 sources) Uncomplicated moderate persistent asthma; Translations: [Moderate persistent asthma, uncomplicated] Onset: 11-30-2014 Resolved: 11-30-2020 10-07-2018 Chronic Attention-deficit, conduct, and disruptive behavior disorders (1 source) Attention deficit hyperactivity disorder, predominantly inattentive type; Translations: [Attention-deficit hyperactivity disorder, predominantly inattentive type] 05-21-2023 Chronic Conditions associated with dizziness or vertigo (3 sources) Lightheadedness; Translations: [Dizziness and giddiness] Onset: 07-18-2023 Episodic E Codes: Natural/environment (1 source) Bitten or stung by nonvenomous insect and other nonvenomous arthropods, initial encounter; Translations: [Insect bite of left upper arm, initial encounter] Onset: 01-03-2023 Episodic Malaise and fatigue (6 sources) Fatigue; Translations: [Other fatigue] Onset: 03-20-2015 Resolved: 10-07-2018 10-07-2018 Episodic Miscellaneous mental health disorders (10 sources) Primary insomnia; Translations: [Primary insomnia] Onset: 11-30-2014 11-30-2014 Chronic Mood disorders (20 sources) Recurrent major depressive episodes, moderate ; Translations: [Major depressive disorder, recurrent, moderate] Onset: 03-20-2015 Resolved: 11-30-2020 11-16-2018 Chronic Nonspecific chest pain (1 source) Chest wall pain; Translations: [Other chest pain] 08-06-2023 Episodic Nutritional deficiencies (1 source) Vitamin D deficiency; Translations: [Vitamin D deficiency, unspecified] Chronic Nutritional deficiencies (3 sources) Cobalamin deficiency; Translations: [Deficiency of other specified B group vitamins] Onset: 06-02-2024 11-06-2023 Episodic Other aftercare (1 source) Encounter for other specified aftercare; Translations: [Visit for wound check] Onset: 01-03-2023 Episodic Other bone disease and musculoskeletal deformities (1 source) Costal chondritis; Translations: [Chondrocostal junction syndrome [Tietze]] 05-12-2024 Episodic Other connective tissue disease (1 source) Pain in right foot; Translations: [Pain in right foot] 11-26-2022 Episodic Other ear and sense organ disorders (1 source) Otalgia, right ear; Translations: [Otalgia, unspecified] Episodic Other endocrine disorders (6 sources) Hypoglycemia; Translations: [Hypoglycemia, unspecified] Onset: 04-11-2023 04-10-2023 Chronic Other endocrine disorders (20 sources) Reactive hypoglycemia; Translations: [Other hypoglycemia] Onset: 04-11-2023 04-13-2023 Chronic Other endocrine disorders (20 sources) Hypoadrenalism; Translations: [Unspecified adrenocortical insufficiency] Onset: 04-13-2023 04-13-2023 Chronic Other endocrine disorders (20 sources) Iatrogenic adrenal insufficiency; 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] Onset: 04-24-2023 04-24-2023 Chronic Other endocrine disorders (1 source) Other hypoglycemia; Translations: [Reactive hypoglycemia] Onset: 04-13-2023 Chronic Other inflammatory condition of skin (1 source) Erythema of skin; Translations: [Erythematous condition, unspecified] 01-03-2023 Episodic Other lower respiratory disease (2 sources) Dyspnea; Translations: [Shortness of breath] Episodic Other lower respiratory disease (1 source) Wheezing; Translations: [Wheezing] Episodic Other lower respiratory disease (1 source) Asthma; Translations: [Eosinophilic asthma] 03-09-2024 Episodic Other nervous system disorders (1 source) Other chronic pain; Translations: [Chronic pain of right ankle] Onset: 06-03-2024 Chronic Other non-traumatic joint disorders (2 sources) Chronic ankle pain; Translations: [Pain in right ankle and joints of right foot] 06-03-2024 Episodic Other non-traumatic joint disorders (1 source) Pain in right ankle and joints of right foot; Translations: [Chronic pain of right ankle] Onset: 06-03-2024 Episodic Other nutritional; endocrine; and metabolic disorders (20 sources) Body mass index 40+ - severely obese; Translations: [Morbid (severe) obesity due to excess calories] Onset: 05-11-2019 05-11-2019 Chronic Other nutritional; endocrine; and metabolic disorders (4 sources) Severe obesity; Translations: [Morbid (severe) obesity due to excess calories] 04-30-2023 Chronic Other nutritional; endocrine; and metabolic disorders (1 source) Morbid (severe) obesity due to excess calories; Translations: [Class 3 severe obesity due to excess calories with serious comorbidity and body mass index (BMI) of 40.0 to 44.9 in adult (FORMERLY [facility])] Onset: 06-02-2024 Chronic Other nutritional; endocrine; and metabolic disorders (1 source) Body mass index (BMI) 40.0-44.9, adult; Translations: [Class 3 severe obesity due to excess calories with serious comorbidity and body mass index (BMI) of 40.0 to 44.9 in adult ([facility])] Onset: 06-02-2024 Chronic Other nutritional; endocrine; and metabolic disorders (1 source) Abnormal weight gain; Translations: [Abnormal weight gain] 11-26-2022 Episodic Other screening for suspected conditions (not mental disorders or infectious disease) (4 sources) Thyroid hormone tests abnormal; Translations: [Other specified abnormal findings of blood chemistry] Onset: 04-10-2022 Episodic Other upper respiratory disease (10 sources) Allergic rhinitis; Translations: [Allergic rhinitis, unspecified] Onset: 11-30-2014 11-30-2014 Chronic Other upper respiratory disease (1 source) Allergic rhinitis due to pollen; Translations: [Allergic rhinitis due to pollen] 08-25-2023 Chronic Other upper respiratory disease (1 source) Allergic disposition; Translations: [Other allergic rhinitis] 08-25-2023 Chronic Other upper respiratory infections (3 sources) Viral upper respiratory tract infection; Translations: [Acute upper respiratory infection, unspecified] 12-06-2022 Episodic Otitis media and related conditions (1 source) Acute right otitis media; Translations: [Otitis media, unspecified, right ear] Episodic Superficial injury; contusion (3 sources) Insect bite of upper limb; Translations: [Insect bite (nonvenomous) of left upper arm, initial encounter] Onset: 01-03-2023 01-03-2023 Episodic Thyroid disorders (2 sources) Justina thyroiditis; Translations: [Autoimmune thyroiditis] Chronic Unclassified (1 source) Class 3 severe obesity due to excess calories with serious comorbidity and body mass index (BMI) of 40.0 to 44.9 in adult ([facility]); Translations: [Class 3 severe obesity due to excess calories with serious comorbidity and body mass index (BMI) of 40.0 to 44.9 in adult ([facility])] Onset: 06-02-2024 Viral infection (20 sources) Herpes simplex of female genitalia; Translations: [Herpesviral infection of other urogenital tract] Onset: 07-18-2016 11-18-2016 Chronic Past or Other Problems Problem Classification Problem Date Documented Da te Episodic/Chronic Biliary tract disease (5 sources) Calculus of gallbladder with acute cholecystitis; Translations: [Calculus of gallbladder with acute cholecystitis without obstruction] Onset: 10-10-2014 Resolved: 10-07-2018 10-07-2018 Episodic Cardiac dysrhythmias (9 sources) Palpitations; Translations: [Palpitations] Onset: 2019 2019 Episodic Diabetes mellitus without complication (2 sources) Abnormal glucose level; Translations: [Other abnormal glucose] Onset: 05-26-2024 11-06-2023 Episodic Diabetes or abnormal glucose tolerance complicating ; childbirth; or the puerperium (7 sources) Gestational diabetes mellitus; Translations: [Gestational diabetes mellitus in , unspecified control] Onset: 06-01-2020 06-01-2020 Episodic Early or threatened labor (20 sources) False labor; Translations: [False labor, unspecified] Onset: 07-18-2016 Resolved: 08-06-2016 08-06-2016 Episodic Fluid and electrolyte disorders (1 source) Hypokalemia; Translations: [Hypokalemia] Onset: 06-16-2022 Episodic Other circulatory disease (11 sources) Orthostatic hypotension; Translations: [Dizziness and giddiness] Onset: 04-15-2019 04-15-2019 Episodic Other complications of (20 sources) Poor growth affecting management; Translations: [Maternal care for other known or suspected poor growth, unspecified trimester, not applicable or unspecified] Onset: 06-06-2016 Resolved: 10-07-2018 10-07-2018 Episodic Other complications of (20 sources) Reduced movement; Translations: [Decreased movements, second trimester, not applicable or unspecified] Onset: 05-12-2016 Resolved: 08-06-2016 08-06-2016 Episodic Other complications of (20 sources) Small for gestational age fetus; Translations: [Maternal care for other known or suspected poor growth, third trimester, not applicable or unspecified] Onset: 06-17-2016 Resolved: 08-06-2016 08-06-2016 Episodic Other gastrointestinal disorders (2 sources) Diarrhea of presumed infectious origin; Translations: [Diarrhea, unspecified] Onset: 09-24-2019 Resolved: 11-30-2020 09-24-2019 Episodic Other lower respiratory disease (20 sources) Eosinophilic asthma; Translations: [Pulmonary eosinophilia] Onset: 09-26-2022 09-26-2022 Episodic Other lower respiratory disease (1 source) Asthmatic pulmonary eosinophilia; Translations: [Pulmonary eosinophilia (HCC)] Onset: 09-26-2022 Episodic Other non-traumatic joint disorders (20 sources) Instability of joint of right ankle; Translations: [Other instability, right ankle] Onset: 03-17-2023 03-20-2023 Episodic Other non-traumatic joint disorders (1 source) Other instability, right ankle; Translations: [Right ankle instability] Onset: 03-17-2023 Episodic Polyhydramnios and other problems of amniotic cavity (20 sources) Oligohydramnios; Translations: [Oligohydramnios, third trimester, not applicable or unspecified] Onset: 08-08-2016 Resolved: 08-09-2016 08-09-2016 Episodic Residual codes; unclassified (2 sources) H/O: section; Translations: [History of section] Onset: 08-10-2016 11-18-2016 Episodic Residual codes; unclassified (3 sources) Postoperative state; Translations: [Other specified postprocedural states] Onset: 10-28-2014 Resolved: 11-13-2017 11-13-2017 Episodic Residual codes; unclassified (2 sources) Postoperative state; Translations: [Post-operative state] Onset: 10-28-2014 Resolved: 11-13-2017 11-13-2017 Spondylosis; intervertebral disc disorders; other back problems (20 sources) Chronic low back pain; Translations: [Low back pain] Onset: 07-12-2016 11-18-2016 Episodic Sprains and strains (8 sources) Sprain of right ankle; Translations: [Sprain of unspecified ligament of right ankle, initial encounter] Onset: 09-24-2019 Episodic Syncope (2 sources) Vasovagal syncope; Translations: [Syncope] Episodic Urinary tract infections (1 source) Acute cystitis; Translations: [Acute cystitis without hematuria] Episodic Results Test Name Value Interpretation Reference Range [facility] IRVIN KLINE ([id number]) 1990 F Date Time Provider Department 08/26/24 [facility] During your visit today, we recorded the following information about you: Chad Gore 08/26/2024 4:22 PM Signed Confirmation of Order for Nebulizer and supplies signed and faxed to [facility]. 2 documents sent to scanning. Chad Gore Allergies As of Date: 08/26/2024 Noted Allergy Reaction ROCEPHIN (CEFTRIAXONE SODIUM) 05/12/2016 10 - Anaphylaxis Comments: per pt mother was 3yo Date Reviewed: 06/03/2024 Reviewed by: Ayala Dunlap LPN - Fully Assessed Reason for Visit: FYI-No Action Needed [265] Cmt: Order confirmation for Nebulizer Prescriptions as of 08/26/2024 - lamoTRIgine (LAMICTAL) 100 mg tablet TAKE 1 TABLET BY MOUTH EVERYDAY AT BEDTIME - tirzepatide, weight loss (ZEPBOUND) 5 mg/0.5 mL pen injector Inject 5 mg subcutaneously one time a week. - albuterol HFA (PROVENTIL HFA, VENTOLIN HFA) 90 mcg/actuation inhaler INHALE 2 PUFFS INSTRUCTED EVERY 4 HOURS NEEDED FOR WHEEZING/SHORTNESS OF BREATH. - blood sugar diagnostic (BLOOD GLUCOSE TEST) test strip Use as instructed to check blood glucose level one time daily - Blood-Glucose Meter,Continuous (DEXCOM G7 CEMETERY VAULT INSTALLER) [facility] Use as directed to monitor blood glucose 4-6 times per day. Reactive hypoglycemia [E16.1] - Blood-Glucose Sensor (DEXCOM G7 SENSOR) mallika Use as directed to monitor blood glucose 4-6 times per day. Reactive hypoglycemia [E16.1] - metFORMIN ER (GLUCOPHAGE XR) 500 mg 24 hr tablet Take 1 tablet by mouth three times a day with meals. - tirzepatide, weight loss (ZEPBOUND) 2.5 mg/0.5 mL pen injector Inject 2.5 mg subcutaneously one time a week. - traZODone (DESYREL) 100 mg tablet take 1 tablet 1 time a day (at bedtime) - busPIRone (BUSPAR) 15 mg tablet Take 15 mg by mouth three times a day. - citalopram (CELEXA) 40 mg tablet Take by mouth once daily. - montelukast (SINGULAIR) 10 mg tablet TAKE 1 TABLET BY MOUTH EVERY DAY - budesonide (PULMICORT) 0.5 mg/2 mL nebulizer solution USE 2 ML VIA NEBULIZER EVERY 12 HOURS. INHALE OVER 5-15 MINUTES - mepolizumab (NUCALA) 100 mg/mL auto-injector INJECT 1 PEN UNDER THE SKIN EVERY 28 DAYS - fluticasone-salmeterol (WIXELA INHUB) 250-50 mcg/dose inhaler INHALE 1 PUFF INSTRUCTED TWO TIMES A DAY. - fluticasone (FLONASE) 50 mcg/actuation nasal spray Use 1 [place] in each nostril once daily. - levalbuterol tartrate HFA 45 mcg/actuation inhaler (Discontinued) Inhale 2 Puffs as instructed every 4 hours as needed for wheezing/shortness of breath. - Lancets lancets Use as instructed - Blood-Glucose Meter 1 Each once daily. - ergocalciferol 50,000 unit capsule (VITAMIN D2, DRISDOL) Take 1 capsule by mouth one time a week. - ferrous sulfate 325 mg (65 mg iron) tablet Take 1 tablet by mouth two times a day. - albuterol (PROVENTIL) 2.5 mg /3 mL (0.083 %) nebulizer solution Use 3 mL via nebulizer every 4 hours as needed for wheezing/shortness of breath. Inhale by nebulizer over 5-15 minutes. - albuterol HFA (PROAIR HFA) 90 mcg/actuation inhaler Inhale 2 Puffs as instructed every 6 hours as needed for wheezing/shortness of breath. - mepolizumab (NUCALA) 100 mg injection Inject 100 mg subcutaneously every 4 weeks. - Nebulizer and Compressor For Neb Use as directed - FEXOFENADINE HCL (LAQUITA ALLERGY ORAL) Take by mouth once daily. Problem List As Of Date 08/26/2024 Noted Resolved Decreased movements in second trimester [*05/12/2016 08/06/2016 Small for gestational age fetus affecting manag*06/17/2016 08/06/2016 Chronic bilateral low back pain without sciatic*07/12/2016 Herpes simplex of female genitalia [A60.09] 07/18/2016 False labor, antepartum [O47.9] 07/18/2016 08/06/2016 Poor growth affecting management of mothe*08/06/2016 08/09/2016 IUGR (intrauterine growth restriction) affectin*08/06/2016 08/09/2016 Oligohydramnios in third trimester [O41.03X0] 08/08/2016 08/09/2016 S/P section [Z98.891] 08/10/2016 Anxiety [F41.9] 03/20/2015 Asthma [J45.909] 11/30/2014 Depressive disorder [F32.A] 08/12/2022 Asthma, moderate persistent, poorly-controlled *09/26/2022 Pulmonary eosinophilia (HCC) [J82.89] 09/26/2022 Asthma, late onset, severe persistent, uncompli*09/26/2022 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] 03/17/2023 Reactive hypoglycemia [E16.1] 04/11/2023 Obesity, Class III, BMI >= 40 [E66.813] 04/12/2023 Adrenal insufficiency (HCC) [E27.40] 04/13/2023 Adrenal insufficiency due to corticosteroid wit*04/24/2023 Encounter Status:Closed by CHAD GORE on 08/26/24 [facility] 08-06-2024 [facility] Telephone ([facility]) IRVIN KLINE ([id number]) 1990 F Date Time Provider Department 08/06/24 STACIE HARRIS During your visit today, we recorded the following information about you: Molly Arana 08/12/2024 9:00 AM Addendum Called to schedule [facility], [facility] Molly Arana August 06, 2024 9:58 AM Called and [facility] Molly Arana August 12, 2024 9:00 AM Allergies As of Date: 08/06/2024 Noted Allergy Reaction ROCEPHIN (CEFTRIAXONE SODIUM) 05/12/2016 10 - Anaphylaxis Comments: per pt mother was 3yo Date Reviewed: 06/03/2024 Reviewed by: Ayala Dunlap LPN - Fully Assessed Reason for Visit: Appointment [186] Cmt: Called to schedule new patient appointment, [facility] Prescriptions as of 08/12/2024 - lamoTRIgine (LAMICTAL) 100 mg tablet TAKE 1 TABLET BY MOUTH EVERYDAY AT BEDTIME - tirzepatide, weight loss (ZEPBOUND) 5 mg/0.5 mL pen injector Inject 5 mg subcutaneously one time a week. - albuterol HFA (PROVENTIL HFA, VENTOLIN HFA) 90 mcg/actuation inhaler INHALE 2 PUFFS INSTRUCTED EVERY 4 HOURS NEEDED FOR WHEEZING/SHORTNESS OF BREATH. - blood sugar diagnostic (BLOOD GLUCOSE TEST) test strip Use as instructed to check blood glucose level one time daily - Blood-Glucose Meter,Continuous (DEXCOM G7 CEMETERY VAULT INSTALLER) misc Use as directed to monitor blood glucose 4-6 times per day. Reactive hypoglycemia [E16.1] - Blood-Glucose Sensor (DEXCOM G7 SENSOR) mallika Use as directed to monitor blood glucose 4-6 times per day. Reactive hypoglycemia [E16.1] - metFORMIN ER (GLUCOPHAGE XR) 500 mg 24 hr tablet Take 1 tablet by mouth three times a day with meals. - tirzepatide, weight loss (ZEPBOUND) 2.5 mg/0.5 mL pen injector Inject 2.5 mg subcutaneously one time a week. - traZODone (DESYREL) 100 mg tablet take 1 tablet 1 time a day (at bedtime) - busPIRone (BUSPAR) 15 mg tablet Take 15 mg by mouth three times a day. - citalopram (CELEXA) 40 mg tablet Take by mouth once daily. - montelukast (SINGULAIR) 10 mg tablet TAKE 1 TABLET BY MOUTH EVERY DAY - budesonide (PULMICORT) 0.5 mg/2 mL nebulizer solution USE 2 ML VIA NEBULIZER EVERY 12 HOURS. INHALE OVER 5-15 MINUTES - mepolizumab (NUCALA) 100 mg/mL auto-injector INJECT 1 PEN UNDER THE SKIN EVERY 28 DAYS - fluticasone-salmeterol (WIXELA INHUB) 250-50 mcg/dose inhaler INHALE 1 PUFF INSTRUCTED TWO TIMES A DAY. - fluticasone (FLONASE) 50 mcg/actuation nasal spray Use 1 [place] in each nostril once daily. - levalbuterol tartrate HFA 45 mcg/actuation inhaler (Discontinued) Inhale 2 Puffs as instructed every 4 hours as needed for wheezing/shortness of breath. - Lancets lancets Use as instructed - Blood-Glucose Meter 1 Each once daily. - ergocalciferol 50,000 unit capsule (VITAMIN D2, DRISDOL) Take 1 capsule by mouth one time a week. - ferrous sulfate 325 mg (65 mg iron) tablet Take 1 tablet by mouth two times a day. - albuterol (PROVENTIL) 2.5 mg /3 mL (0.083 %) nebulizer solution Use 3 mL via nebulizer every 4 hours as needed for wheezing/shortness of breath. Inhale by nebulizer over 5-15 minutes. - albuterol HFA (PROAIR HFA) 90 mcg/actuation inhaler Inhale 2 Puffs as instructed every 6 hours as needed for wheezing/shortness of breath. - mepolizumab (NUCALA) 100 mg injection Inject 100 mg subcutaneously every 4 weeks. - Nebulizer and Compressor For Neb Use as directed - FEXOFENADINE HCL (LAQUITA ALLERGY ORAL) Take by mouth once daily. Problem List As Of Date 08/06/2024 Noted Resolved Decreased movements in second trimester [*05/12/2016 08/06/2016 Small for gestational age fetus affecting manag*06/17/2016 08/06/2016 Chronic bilateral low back pain without sciatic*07/12/2016 Herpes simplex of female genitalia [A60.09] 07/18/2016 False labor, antepartum [O47.9] 07/18/2016 08/06/2016 Poor growth affecting management of mothe*08/06/2016 08/09/2016 IUGR (intrauterine growth restriction) affectin*08/06/2016 08/09/2016 Oligohydramnios in third trimester [O41.03X0] 08/08/2016 08/09/2016 S/P section [Z98.891] 08/10/2016 Anxiety [F41.9] 03/20/2015 Asthma [J45.909] 11/30/2014 Depressive disorder [F32.A] 08/12/2022 Asthma, moderate persistent, poorly-controlled *09/26/2022 Pulmonary eosinophilia (HCC) [J82.89] 09/26/2022 Asthma, late onset, severe persistent, uncompli*09/26/2022 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] 03/17/2023 Reactive hypoglycemia [E16.1] 04/11/2023 Obesity, Class III, BMI >= 40 [E66.813] 04/12/2023 Adrenal insufficiency (HCC) [E27.40] 04/13/2023 Adrenal insufficiency due to corticosteroid wit*04/24/2023 Encounter Status:Closed by MOLLY ARANA on 08/06/24 [facility] 06-29-[facility]24 [facility] Telephone (PULMGR) IRVIN KLINE ([id number]) 1990 F Date Time Provider Department 06/29/24 ROBSON ZUNIGA PULMGR During your visit today, we recorded the following information about you: Liliya Mondragon 06/29/2024 11:27 AM Signed IRVIN KLINE (Isaac: [id number]) Need Help? Call us at Status Sent to Plan today Drug Nucala 100MG/ML auto-injectors Form [employer] Electronic PA Form (2017 [facility] Cuca Rios MA 06/30/2024 9:29 AM Signed IRVIN KLINE (Isaac: [id number]) PA Need Help? Call us at Outcome Approved on June 29 by Warren [facility] 2016 Your PA request has been approved. Additional information will be provided in the approval communication. (Message [id number]) Effective Date: 06/29/2024 Authorization Expiration Date: 06/29/2025 Drug Nucala 100MG/ML auto-injectors Form [employer] Electronic PA Form (2016 [place] Allergies As of Date: 06/29/2024 Noted Allergy Reaction ROCEPHIN (CEFTRIAXONE SODIUM) 05/12/2016 10 - Anaphylaxis Comments: per pt mother was 3yo Date Reviewed: 06/03/2024 Reviewed by: Ayala Dunlap LPN - Fully Assessed Reason for Visit: Insurance Authorization [[id number]] Cmt: Nucala PA Prescriptions as of 06/30/2024 - albuterol HFA (PROVENTIL HFA, VENTOLIN HFA) 90 mcg/actuation inhaler INHALE 2 PUFFS INSTRUCTED EVERY 4 HOURS NEEDED FOR WHEEZING/SHORTNESS OF BREATH. - blood sugar diagnostic (BLOOD GLUCOSE TEST) test strip Use as instructed to check blood glucose level one time daily - Blood-Glucose Meter,Continuous (DEXCOM G7 CEMETERY VAULT INSTALLER) misc Use as directed to monitor blood glucose 4-6 times per day. Reactive hypoglycemia [E16.1] - Blood-Glucose Sensor (DEXCOM G7 SENSOR) mallika Use as directed to monitor blood glucose 4-6 times per day. Reactive hypoglycemia [E16.1] - metFORMIN ER (GLUCOPHAGE XR) 500 mg 24 hr tablet Take 1 tablet by mouth three times a day with meals. - tirzepatide, weight loss (ZEPBOUND) 2.5 mg/0.5 mL pen injector Inject 2.5 mg subcutaneously one time a week. - traZODone (DESYREL) 100 mg tablet take 1 tablet 1 time a day (at bedtime) - busPIRone (BUSPAR) 15 mg tablet Take 15 mg by mouth three times a day. - citalopram (CELEXA) 40 mg tablet Take by mouth once daily. - montelukast (SINGULAIR) 10 mg tablet TAKE 1 TABLET BY MOUTH EVERY DAY - budesonide (PULMICORT) 0.5 mg/2 mL nebulizer solution USE 2 ML VIA NEBULIZER EVERY 12 HOURS. INHALE OVER 5-15 MINUTES - mepolizumab (NUCALA) 100 mg/mL auto-injector INJECT 1 PEN UNDER THE SKIN EVERY 28 DAYS - fluticasone-salmeterol (WIXELA INHUB) 250-50 mcg/dose inhaler INHALE 1 PUFF INSTRUCTED TWO TIMES A DAY. - lamoTRIgine (LAMICTAL) 100 mg tablet TAKE 1 TABLET BY MOUTH EVERYDAY AT BEDTIME - fluticasone (FLONASE) 50 mcg/actuation nasal spray Use 1 [place] in each nostril once daily. - levalbuterol tartrate HFA 45 mcg/actuation inhaler (Discontinued) Inhale 2 Puffs as instructed every 4 hours as needed for wheezing/shortness of breath. - Lancets lancets Use as instructed - Blood-Glucose Meter 1 Each once daily. - ergocalciferol 50,000 unit capsule (VITAMIN D2, DRISDOL) Take 1 capsule by mouth one time a week. - ferrous sulfate 325 mg (65 mg iron) tablet Take 1 tablet by mouth two times a day. - albuterol (PROVENTIL) 2.5 mg /3 mL (0.083 %) nebulizer solution Use 3 mL via nebulizer every 4 hours as needed for wheezing/shortness of breath. Inhale by nebulizer over 5-15 minutes. - albuterol HFA (PROAIR HFA) 90 mcg/actuation inhaler Inhale 2 Puffs as instructed every 6 hours as needed for wheezing/shortness of breath. - mepolizumab (NUCALA) 100 mg injection Inject 100 mg subcutaneously every 4 weeks. - Nebulizer and Compressor For Neb Use as directed - FEXOFENADINE HCL (LAQUITA ALLERGY ORAL) Take by mouth once daily. Problem List As Of Date 06/29/2024 Noted Resolved Decreased movements in second trimester [*05/12/2016 08/06/2016 Small for gestational age fetus affecting manag*06/17/2016 08/06/2016 Chronic bilateral low back pain without sciatic*07/12/2016 Herpes simplex of female genitalia [A60.09] 07/18/2016 False labor, antepartum [O47.9] 07/18/2016 08/06/2016 Poor growth affecting management of mothe*08/06/2016 08/09/2016 IUGR (intrauterine growth restriction) affectin*08/06/2016 08/09/2016 Oligohydramnios in third trimester [O41.03X0] 08/08/2016 08/09/2016 S/P section [Z98.891] 08/10/2016 Anxiety [F41.9] 03/20/2015 Asthma [J45.909] 11/30/2014 Depressive disorder [F32.A] 08/12/2022 Asthma, moderate persistent, poorly-controlled *09/26/2022 Pulmonary eosinophilia (HCC) [J82.89] 09/26/2022 Asthma, late onset, severe persistent, uncompli*09/26/2022 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] 03/17/2023 Reactive hypoglycemia [E16.1] 04/11/2023 Obesity, Class III, BMI >= 40 [E66.813] 04/12/2023 Adren (more content not included)... Normal [facility] CNOVon 06-03-2024 CNOV Office Visit (PODIWS ) IRVIN KLINE ([id number]) 1990 F Date Time Provider Department 06/03/24 9:15 AM ARLENE PITTMAN PODIWS During your visit today, we recorded the following information about you: Ayala Dunlap LPN 06/03/2024 9:18 AM Signed AMB ROOMING INTAKE FLOWSHEET DATA Pain Pain Level: 5 Pain Location: Ankle-Right Description: Shooting Duration Units: Months Frequency: Intermittent Intervention/Comfort measure: Relaxation, Reposition Patient presents with: Right Ankle - Follow Up, Pain, Established Patient, Weakness GALE Spencer Matthew 06/03/2024 9:14 AM Signed A right ankle MRI has been ordered to evaluate the chronic instability and pain in your right ankle. You will receive further instructions on scheduling the MRI. Continue using your ankle brace as needed for support. I will call you with the MRI results and discuss any further treatment options, which may include surgical repair if indicated. Arlene Pittman 06/03/2024 9:18 AM Signed Subjective Irvin is a 34-year-old female presenting for follow-up of chronic right ankle instability. Chronic Right Ankle Instability: - Symptoms persisting for over a year. - Previous treatments: physical therapy, bracing, appropriate footwear, and anti-inflammatory medications. - Last visit in May 2023 showed 25% improvement with therapy. - Missed some therapy sessions due to hypoglycemia. - Currently experiencing worsening symptoms, including the ankle giving out and twisting inward, leading to near falls. - Pain localized to the lateral aspect of the ankle, described as shooting when weight-bearing. 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 Musculoskeletal: (+) right ankle pain, (+) right ankle instability PAST MEDICAL HISTORY Diagnosis Date Anemia Asthma (HCC) Family History Problem Relation Age of Onset Heart Attack Maternal Grandfather ALLERGIES Allergen Reactions Rocephin [Ceftriaxo* Anaphylaxis per pt mother was 3yo Objective Last menstrual period 07/06/2023. - Cardiovascular: Dorsalis pedis and posterior tibial pulses palpable bilaterally; capillary refill time brisk bilaterally. - Skin: No open sores or calluses on bilateral feet; skin well-hydrated, normal color, normal temperature. - Musculoskeletal: - Right Foot and Ankle: - Mild pain with plantar flexion; pain with resistive plantar flexion. - MMT: 5/5 for dorsiflexion, plantar flexion, inversion, eversion. - Pain along the inferior aspect of the lateral malleolus, anterior talofibular ligament, calcaneofibular ligament, and posterior talofibular ligament. - Mild discomfort along the proximal lateral malleolus and peroneus brevis. - No pain with palpation of the peroneus brevis at the insertion of the fifth metatarsal base; no pain along the peroneus brevis inferior to the lateral malleolus. - Anterior Drawer Test: No laxity. - Talar Tilt Test: Positive for pain. - Left Foot and Ankle: - Anterior Drawer Test: No laxity. Labs: (No diagnostics in this category) Tests: (No diagnostics in this category) Imaging: (03/11/2023) X-ray Right Ankle: Normal bony density with no acute fracture or dislocation noted, flattening of the right foot on lateral view, well-corticated posterior ostrigonum of the right lower extremity, and a heel spur on the plantar calcaneus 1. Right ankle instability (M25.371) 2. Chronic pain of right ankle (M25.571) - Chronic instability and pain in the right ankle, worsening over the past year despite physical therapy, bracing, and anti-inflammatory use. - Physical exam reveals mild pain with plantar flexion, pain along the inferior aspect of the right lateral malleolus, and positive pain with talar tilt of the right lower extremity. - X-rays from March 11, 2023 show normal bony density, no acute fracture or dislocation, flattening of the right foot on the lateral view, a well-corticated posterior ostrigonum, and a heel spur on the plantar calcaneus. - Suspect chronic instability of the right ankle; differential includes chronic ligament tear. - Ordered MRI of the right ankle to assess for potential ligament tears or other abnormalities. - Discussed possibility of surgical intervention if MRI demonstrates significant instability or tearing. - Will review MRI results and follow up with patient. Attestation Recording using iZotope software for draft documentation of the visit was discussed with the patient/authorized agency service representative; all questions welcomed and answered. Patient/authorized agency service representative agreed to proceed MARQUEZ Lynne Amelia, LPN 06/03/2024 9:23 AM Signed Per Irvin Alberto was provided with active ankle brace, size L, and instructed/educated in its application, wear, and care. All questions (more content not included)... Normal [facility] Cherie 06-03-2024 BERNADETTE Telephone (EMQ) IRVIN KLINE ([id number]) 1990 F Date Time Provider Department 06/03/24 DYLAN TOPETE EMQ During your visit today, we recorded the following information about you: Wiliam Lemon 06/03/2024 2:33 PM Signed Initiated PA for tirzepatide, weight loss (ZEPBOUND) 2.5 mg/0.5 mL through Surescripts Questions Completed/attached notes Waiting for determination Wiliam Johnson Prior Hydraulic Press In Operator Endocrinology AND Metabolism [place] Kimberly iNxon MA 06/08/2024 7:54 AM Signed Received approval 06/03/2024 through 01/29/2025 Send for scanning. Kimberly Nixon MA Allergies As of Date: 06/03/2024 Noted Allergy Reaction ROCEPHIN (CEFTRIAXONE SODIUM) 05/12/2016 10 - Anaphylaxis Comments: per pt mother was 3yo Date Reviewed: 06/03/2024 Reviewed by: Ayala Dunlap LPN - Fully Assessed Reason for Visit: Insurance Authorization [[id number]] Cmt: (ZEPBOUND) 2.5 mg/0.5 mL Prescriptions as of 06/08/2024 - blood sugar diagnostic (BLOOD GLUCOSE TEST) test strip Use as instructed to check blood glucose level one time daily - Blood-Glucose Meter,Continuous (DEXCOM G7 CEMETERY VAULT INSTALLER) misc Use as directed to monitor blood glucose 4-6 times per day. Reactive hypoglycemia [E16.1] - Blood-Glucose Sensor (DEXCOM G7 SENSOR) mallika Use as directed to monitor blood glucose 4-6 times per day. Reactive hypoglycemia [E16.1] - metFORMIN ER (GLUCOPHAGE XR) 500 mg 24 hr tablet Take 1 tablet by mouth three times a day with meals. - tirzepatide, weight loss (ZEPBOUND) 2.5 mg/0.5 mL pen injector Inject 2.5 mg subcutaneously one time a week. - traZODone (DESYREL) 100 mg tablet take 1 tablet 1 time a day (at bedtime) - busPIRone (BUSPAR) 15 mg tablet Take 15 mg by mouth three times a day. - citalopram (CELEXA) 40 mg tablet Take by mouth once daily. - montelukast (SINGULAIR) 10 mg tablet TAKE 1 TABLET BY MOUTH EVERY DAY - albuterol HFA (PROVENTIL HFA, VENTOLIN HFA) 90 mcg/actuation inhaler INHALE 2 PUFFS INSTRUCTED EVERY 4 HOURS NEEDED FOR WHEEZING/SHORTNESS OF BREATH. - budesonide (PULMICORT) 0.5 mg/2 mL nebulizer solution USE 2 ML VIA NEBULIZER EVERY 12 HOURS. INHALE OVER 5-15 MINUTES - mepolizumab (NUCALA) 100 mg/mL auto-injector INJECT 1 PEN UNDER THE SKIN EVERY 28 DAYS - fluticasone-salmeterol (WIXELA INHUB) 250-50 mcg/dose inhaler INHALE 1 PUFF INSTRUCTED TWO TIMES A DAY. - lamoTRIgine (LAMICTAL) 100 mg tablet TAKE 1 TABLET BY MOUTH EVERYDAY AT BEDTIME - fluticasone (FLONASE) 50 mcg/actuation nasal spray Use 1 Almont in each nostril once daily. - levalbuterol tartrate HFA 45 mcg/actuation inhaler (Discontinued) Inhale 2 Puffs as instructed every 4 hours as needed for wheezing/shortness of breath. - Lancets lancets Use as instructed - Blood-Glucose Meter 1 Each once daily. - ergocalciferol 50,000 unit capsule (VITAMIN D2, DRISDOL) Take 1 capsule by mouth one time a week. - ferrous sulfate 325 mg (65 mg iron) tablet Take 1 tablet by mouth two times a day. - albuterol (PROVENTIL) 2.5 mg /3 mL (0.083 %) nebulizer solution Use 3 mL via nebulizer every 4 hours as needed for wheezing/shortness of breath. Inhale by nebulizer over 5-15 minutes. - albuterol HFA (PROAIR HFA) 90 mcg/actuation inhaler Inhale 2 Puffs as instructed every 6 hours as needed for wheezing/shortness of breath. - mepolizumab (NUCALA) 100 mg injection Inject 100 mg subcutaneously every 4 weeks. - Nebulizer and Compressor For Neb Use as directed - FEXOFENADINE HCL (LAQUITA ALLERGY ORAL) Take by mouth once daily. Problem List As Of Date 06/03/2024 Noted Resolved Decreased movements in second trimester [*05/12/2016 08/06/2016 Small for gestational age fetus affecting manag*06/17/2016 08/06/2016 Chronic bilateral low back pain without sciatic*07/12/2016 Herpes simplex of female genitalia [A60.09] 07/18/2016 False labor, antepartum [O47.9] 07/18/2016 08/06/2016 Poor growth affecting management of mothe*08/06/2016 08/09/2016 IUGR (intrauterine growth restriction) affectin*08/06/2016 08/09/2016 Oligohydramnios in third trimester [O41.03X0] 08/08/2016 08/09/2016 S/P section [Z98.891] 08/10/2016 Anxiety [F41.9] 03/20/2015 Asthma [J45.909] 11/30/2014 Depressive disorder [F32.A] 08/12/2022 Asthma, moderate persistent, poorly-controlled *09/26/2022 Pulmonary eosinophilia (HCC) [J82.89] 09/26/2022 Asthma, late onset, severe persistent, uncompli*09/26/2022 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] 03/17/2023 Reactive hypoglycemia [E16.1] 04/11/2023 Obesity, Class III, BMI >= 40 [E66.813] 04/12/2023 Adrenal insufficiency (HCC) [E27.40] 04/13/2023 Adrenal insufficiency due to corticosteroid wit*04/24/2023 Encounter Status:Closed by KIMBERLY NIXON on 06/08/24 [facility] CNOVon 06-02-2024 CNOV Office Visit (ENDTWN ) IRVIN KLINE ([id number]) 1990 F Date Time Provider Department 06/02/24 2:10 PM DYLAN TOPETE ENDTWFelicia During your visit today, we recorded the following information about you: Pulse Blood pressure Weight 74/minute 117/61 118.1 kg Te Juan OCCA 06/02/2024 2:58 PM Signed Dylan Topete MD 06/02/2024 2:58 PM Signed Subjective: Irvin Kline presents for a follow-up visit. Answers submitted by the patient for this visit: Core Review of Systems (Submitted on 05/26/2024) Fever : No Night sweats: No Recent unintentional weight change: No Nasal Congestion: No Hearing Loss: No Vision Disturbance: No A cough: No Difficulty Breathing?: No Leg Swelling: No Nausea: No Diarrhea: No Black tarry stools: No Difficulty Urinating?: No Awaken at Night More Than Once to Urinate?: No Joint pain or stiffness: No Muscle aches: No Leg or Foot Discomfort at Night?: No A rash: No Dizziness: No Headaches: No Memory Loss: No Seizures: No Current Outpatient Medications Medication Sig traZODone (DESYREL) 100 mg tablet take 1 tablet 1 time a day (at bedtime) busPIRone (BUSPAR) 15 mg tablet Take 15 mg by mouth three times a day. citalopram (CELEXA) 40 mg tablet Take by mouth once daily. montelukast (SINGULAIR) 10 mg tablet TAKE 1 TABLET BY MOUTH EVERY DAY albuterol HFA (PROVENTIL HFA, VENTOLIN HFA) 90 mcg/actuation inhaler INHALE 2 PUFFS INSTRUCTED EVERY 4 HOURS NEEDED FOR WHEEZING/SHORTNESS OF BREATH. budesonide (PULMICORT) 0.5 mg/2 mL nebulizer solution USE 2 ML VIA NEBULIZER EVERY 12 HOURS. INHALE OVER 5-15 MINUTES mepolizumab (NUCALA) 100 mg/mL auto-injector INJECT 1 PEN UNDER THE SKIN EVERY 28 DAYS fluticasone-salmeterol (WIXELA INHUB) 250-50 mcg/dose inhaler INHALE 1 PUFF INSTRUCTED TWO TIMES A DAY. Blood-Glucose Sensor (DEXCOM G7 SENSOR) mallika Use as directed to monitor blood glucose 4-6 times per day. Reactive hypoglycemia [E16.1] Blood-Glucose Meter,Continuous (DEXCOM G7 CEMETERY VAULT INSTALLER) [facility] Use as directed to monitor blood glucose 4-6 times per day. Reactive hypoglycemia [E16.1] metFORMIN ER (GLUCOPHAGE XR) 500 mg 24 hr tablet Take 1 tablet by mouth three times a day with meals. lamoTRIgine (LAMICTAL) 100 mg tablet TAKE 1 TABLET BY MOUTH EVERYDAY AT BEDTIME blood sugar diagnostic (BLOOD GLUCOSE TEST) test strip Use as instructed to check blood glucose level one time daily fluticasone (FLONASE) 50 mcg/actuation nasal spray Use 1 Almont in each nostril once daily. Lancets lancets Use as instructed Blood-Glucose Meter 1 Each once daily. ferrous sulfate 325 mg (65 mg iron) tablet Take 1 tablet by mouth two times a day. albuterol (PROVENTIL) 2.5 mg /3 mL (0.083 %) nebulizer solution Use 3 mL via nebulizer every 4 hours as needed for wheezing/shortness of breath. Inhale by nebulizer over 5-15 minutes. albuterol HFA (PROAIR HFA) 90 mcg/actuation inhaler Inhale 2 Puffs as instructed every 6 hours as needed for wheezing/shortness of breath. mepolizumab (NUCALA) 100 mg injection Inject 100 mg subcutaneously every 4 weeks. Nebulizer and Compressor For Neb Use as directed FEXOFENADINE HCL (LAQUITA ALLERGY ORAL) Take by mouth once daily. citalopram hydrobromide (CELEXA) 10 mg tablet Take 1 tablet by mouth every other day. cariprazine (VRAYLAR) 3 mg capsule Take 1 capsule by mouth once daily. Blood-Glucose Transmitter (DEXCOM G6 TRANSMITTER) mallika 1 Each once daily. ergocalciferol 50,000 unit capsule (VITAMIN D2, DRISDOL) Take 1 capsule by mouth one time a week. No current facility-administered medications for this visit. Objective: BP 117/61 Pulse 74 Wt 118.1 kg (260 lb 5.8 oz) LMP 07/06/2023 (Exact Date) BMI 44.69 kg/m? BMI 44.69 kg/(m2) Assessment AND Plan: (E16.1) Reactive hypoglycemia (primary encounter diagnosis) (J45.50) Asthma, late onset, severe persistent, uncomplicated ([facility]) (E66.813, E66.01, Z68.41) Class 3 severe obesity due to excess calories with serious comorbidity and body mass index (BMI) of 40.0 to 44.9 in adult ([facility]) (E53.8) Vitamin B12 deficiency Her CGM data from the past 14 days was downloaded AND reviewed during the visit. Her time in range data is as follows: Very low (<55%): <1% Low (55-70 mg/dL): 0% Normal (70-180 mg/dL) 99% High (180-250 mg/dL): 1% Very high (>250 mg/dL): 0% Comment about the pattern(s) observed: Normal glycemic variation most of the time. She has occasional low blood sugars in the middle of the night (thought to be falsely-low readings due to sensor compression) Issues discussed: Irvin continues to do well with ongoing lifestyle efforts AND use of metformin. Hypoglycemic events are rare AND most are likely falsely-low readings. We discussed the possibility of discontinuing the CGM device, but she is concerned about hypoglycemia unawareness - I never know when I'm low (more content not included)... Normal [facility] Comprehensive metabolic 2000 panelon 05-26-2024 Albumin [Mass/Vol] 3.8 g/dL Low 3.9-4.9 [facility] Comment on above: Order Comment: Jordan perry Type: BLOOD SPECIMEN Ordering Facility: [facility] Address: [address] [place] [address] Performed By: #### 2 4323-8 #### [facility] [id number] [address] [place] [address] [place] ALP [Catalytic activity/Vol] 109 U/L Normal 34-[address] [facility] Comment on above: Order Comment: Jordan perry Type: BLOOD SPECIMEN Ordering Facility: [facility] Address: [address] [place] [address] Performed By: #### 2 4323-8 #### [facility] [id number] [address] [place] [address] [place] ALT [Catalytic activity/Vol] 19 U/L Normal 7-[address] [facility] Comment on above: Order Comment: Jarrelli men Type: BLOOD SPECIMEN Ordering Facility: [facility] Address: [address] [place] [address] Performed By: #### 2 4323-8 #### [facility] [id number] [address] [place] [address] [place] Anion gap [Moles/Vol] 8 mmol/L Normal 8-15 [facility] [place] [facility] Comment on above: Order Comment: Jarrelli men Type: BLOOD SPECIMEN Ordering Facility: [facility] Address: [address] [place], [place] [id number] Performed By: #### 2 4323-8 #### [facility] CLIA [id number] [address] [place] [address] [place] AST [Catalytic activity/Vol] 13 U/L Normal 13-[address] [facility] Comment on above: Order Comment: Speci men Type: BLOOD SPECIMEN Ordering Facility: [facility] Address: [address] [place] [address] Performed By: #### 2 4323-8 #### [facility] CLIA [id number] [address] [place] [address] [place] Bilirubin [Mass/Vol] 0.3 mg/dL Normal 0.2-1.3 [facility] Comment on above: Order Comment: Speci men Type: BLOOD SPECIMEN Ordering Facility: [facility] Address: [address] [place] [address] Performed By: #### 2 4323-8 #### [facility] CLIA [id number] [address] [place] [address] [place] Calcium [Mass/Vol] 9.6 mg/dL Normal 8.5-10.2 [facility] Comment on above: Order Comment: Speci men Type: BLOOD SPECIMEN Ordering Facility: [facility] Address: [address] [place] [address] Performed By: #### 2 4323-8 #### [facility] CLIA [id number] [address] [place] [address] [place] Chloride [Moles/Vol] 105 mmol/L Normal 98-107 [facility] Comment on above: Order Comment: Speci men Type: BLOOD SPECIMEN Ordering Facility: [facility] Address: [address] [place], [place] [id number] Performed By: #### 2 4323-8 #### [facility] CLIA [id number] [address] [place] [address] [place] CO2 [Moles/Vol] 24 mmol/L Normal 22-[address] [facility] Comment on above: Order Comment: Jarrelli orlando Type: BLOOD SPECIMEN Ordering Facility: [facility] Address: [address] [place] [address] Performed By: #### 2 4323-8 #### [facility] CLIA [id number] [address] [place] [address] [place] Creatinine [Mass/Vol] 0.67 mg/dL Normal 0.58-0.96 [facility] [place] [facility] Comment on above: Order Comment: Jarrelli men Type: BLOOD SPECIMEN Ordering Facility: [facility] Address: [address] [place] [address] Performed By: #### 2 4323-8 #### [facility] [id number] [address] [place] [address] STATES OF [facility] Creatinine and Glomerular filtration rate.predicted panel (S/P/Bld) 118 mL/min/1.73m??? Normal >=[address] [facility] Comment on above: Order Comment: Jordan perry Type: BLOOD SPECIMEN Ordering Facility: [facility] Address: [address] [place] [address] Result Comment: Victoria mated Glomerular Filtration Rate (eGFR) is calculated using the 2020 CKD-EPI creatinine equation. This equation utilizes serum creatinine, sex, and age as parameters. The creatinine assay has traceable calibration to isotope dilution-mass spectrometry. Refer to KDIGO guidelines for clinical interpretation. In patients with unstable renal function, e.g. those with acute kidney injury, the eGFR may not accurately reflect actual GFR. Performed By: #### 2 4323-8 #### [facility] [id number] [address] [place] [address] [place] Glucose [Mass/Vol] 87 mg/dL Normal 74-99 [facility] Comment on above: Order Comment: Jarrelli orlando Type: BLOOD SPECIMEN Ordering Facility: [facility] Address: [address] [place] [address] Result Comment: The [place] Diabetes Association (ADA) provides guidance for cutoff values for fasting glucose and random glucose. The ADA defines fasting as no caloric intake for at least 8 hours. Fasting plasma glucose results between 100 to 125 mg/dL indicate increased risk for diabetes (prediabetes). Fasting plasma glucose results greater than or equal to 126 mg/dL meet the criteria for diagnosis of diabetes. In the absence of unequivocal hyperglycemia, results should be confirmed by repeat testing. In a patient with classic symptoms of hyperglycemia or hyperglycemic crisis, random plasma glucose results greater than or equal to 200 mg/dL meet the criteria for diagnosis of diabetes. Reference: Standards of Medical Care in Diabetes 2016, [place] Diabetes Association. Diabetes Care. 2016.39(Suppl 1). Performed By: #### 2 4323-8 #### [facility] [id number] [address] [place] [address] [place] Potassium [Moles/Vol] 4.0 mmol/L Normal 3.7-5.1 [facility] [place] [facility] Comment on above: Order Comment: Speci men Type: BLOOD SPECIMEN Ordering Facility: [facility] Address: [address] [place] [address] Performed By: #### 2 4323-8 #### [facility] [id number] [address] [place] [address] [place] Protein [Mass/Vol] 6.9 g/dL Normal 6.3-8.0 [facility] Comment on above: Order Comment: Speci men Type: BLOOD SPECIMEN Ordering Facility: [facility] Address: [address] [place] [address] Performed By: #### 2 4323-8 #### [facility] CLIA [id number] [address] [place] [address] [place] Sodium [Moles/Vol] 137 mmol/L Normal 136-144 [facility] Comment on above: Order Comment: Speci men Type: BLOOD SPECIMEN Ordering Facility: [facility] Address: [address] [place] [address] Performed By: #### 2 4323-8 #### [facility] CLIA [id number] [address] [place] [address] [place] Urea nitrogen [Mass/Vol] 10 mg/dL Normal 7-[address] [facility] Comment on above: Order Comment: Jordan perry Type: BLOOD SPECIMEN Ordering Facility: [facility] Address: [address] [place] [address] Performed By: #### 2 4323-8 #### [facility] CLIA [id number] [address] [place] [address] [place] HbA1c (Bld)on 05-26-2024 Average glucose Estimated from glycated hemoglobin (Bld) [Mass/Vol] 100 mg/dL Normal [facility] Comment on above: Order Comment: Jordan perry Type: BLOOD SPECIMEN Ordering Facility: [facility] Address: [address] [place] [address] Result Comment: eAG: (Estimated average glucose) is a calculated value from HgbA1c and is agency service representative of the average blood glucose level in the last 2-3 month period. Performed By: #### 2 132-9 #### [facility] CLIA [id number] [address] [place] [address] [place] HbA1c (Bld) [Mass fraction] 5.1 % Normal 4.3-5.[address] [facility] Comment on above: Order Comment: Jordan perry Type: BLOOD SPECIMEN Ordering Facility: [facility] Address: [address] [place] [address] Result Comment: [place] Diabetes Association guidelines indicate that patients with HgbA1c in the range 5.7-6.4% are at increased risk for development of diabetes, and intervention by lifestyle modification may be beneficial. HgbA1c greater or equal to 6.5% is considered diagnostic of diabetes. Performed By: #### 2 132-9 #### [facility] CLIA [id number] [address] [place] [address] [place] Vit B12 [facility] 04-09-2 025 Cobalamin (Vitamin B12) [Mass/Vol] 360 pg/mL Normal [id number] [facility] Comment on above: Order Comment: Speci men Type: BLOOD SPECIMEN Ordering Facility: [facility] Address: [address] [place] [address] Performed By: #### 2 [id number] #### [facility] CLIA [id number] [address] [place] [address] [facility] CNOVon 05-12-2024 CNOV Office Visit (UCWSTR ) IRVIN KLINE ([id number]) 1990 F Date Time Provider Department 05/12/24 7:00 PM NEIL RUCKER [facility] During your visit today, we recorded the following information about you: Temperature Pulse Respiration Blood pressure 98.4 degrees 70/minute 18/minute 118/80 Weight 114.2 kg Neil Rucker, TIO.ACCOUNTS PAYABLE ASSOCIATE 05/12/2024 7:48 PM Signed [facility] Subjective Irvin Kline is a 34 year old female. Patient presents with: Cough: Cough, chest hurts and asthma flare-up x 3 weeks Cough Associated symptoms include wheezing. Pertinent negatives include no chest pain, no chills, no rhinorrhea and no shortness of breath. : Patient is a 34 female that presents with chest congestion, cough for last three weeks, She does have a history of asthma, has been using her albuterol 2 puffs 4-6 times a day. She is on a long active zheng, and Singulair. No fever, fatigue, or coughing up sputum dry cough. She did leave work early, she not currently having chest pain. Review of Systems Constitutional: Negative for chills, diaphoresis, fatigue and fever. HENT: Negative for congestion, nosebleeds, postnasal drip, rhinorrhea, sinus pressure and sinus pain. Eyes: Negative for discharge. Respiratory: Positive for cough, chest tightness and wheezing. Negative for shortness of breath and stridor. Cardiovascular: Negative for chest pain and palpitations. Objective BP 118/80 Pulse 70 Temp 36.9 ?C (98.4 ?F) (Tympanic) Resp 18 Wt 114.2 kg (251 lb 12.3 oz) LMP 07/06/2023 (Exact Date) SpO2 96% BMI 43.22 kg/m? PAST MEDICAL HISTORY Diagnosis Date Anemia Asthma PAST SURGICAL HISTORY Procedure Laterality Date NONE ALLERGIES Rocephin [Ceftriaxone Sodium] MEDICATIONS traZODone (DESYREL) 100 mg tablet take 1 tablet 1 time a day (at bedtime) busPIRone (BUSPAR) 15 mg tablet Take 15 mg by mouth three times a day. citalopram (CELEXA) 40 mg tablet Take by mouth once daily. montelukast (SINGULAIR) 10 mg tablet TAKE 1 TABLET BY MOUTH EVERY DAY albuterol HFA (PROVENTIL HFA, VENTOLIN HFA) 90 mcg/actuation inhaler INHALE 2 PUFFS INSTRUCTED EVERY 4 HOURS NEEDED FOR WHEEZING/SHORTNESS OF BREATH. budesonide (PULMICORT) 0.5 mg/2 mL nebulizer solution USE 2 ML VIA NEBULIZER EVERY 12 HOURS. INHALE OVER 5-15 MINUTES mepolizumab (NUCALA) 100 mg/mL auto-injector INJECT 1 PEN UNDER THE SKIN EVERY 28 DAYS fluticasone-salmeterol (WIXELA INHUB) 250-50 mcg/dose inhaler INHALE 1 PUFF INSTRUCTED TWO TIMES A DAY. Blood-Glucose Sensor (DEXCOM G7 SENSOR) mallika Use as directed to monitor blood glucose 4-6 times per day. Reactive hypoglycemia [E16.1] Blood-Glucose Meter,Continuous (DEXCOM G7 CEMETERY VAULT INSTALLER) [facility] Use as directed to monitor blood glucose 4-6 times per day. Reactive hypoglycemia [E16.1] metFORMIN ER (GLUCOPHAGE XR) 500 mg 24 hr tablet Take 1 tablet by mouth three times a day with meals. lamoTRIgine (LAMICTAL) 100 mg tablet TAKE 1 TABLET BY MOUTH EVERYDAY AT BEDTIME blood sugar diagnostic (BLOOD GLUCOSE TEST) test strip Use as instructed to check blood glucose level one time daily fluticasone (FLONASE) 50 mcg/actuation nasal spray Use 1 [place] in each nostril once daily. Blood-Glucose Transmitter (DEXCOM G6 TRANSMITTER) mallika 1 Each once daily. Lancets lancets Use as instructed Blood-Glucose Meter 1 Each once daily. ferrous sulfate 325 mg (65 mg iron) tablet Take 1 tablet by mouth two times a day. albuterol (PROVENTIL) 2.5 mg /3 mL (0.083 %) nebulizer solution Use 3 mL via nebulizer every 4 hours as needed for wheezing/shortness of breath. Inhale by nebulizer over 5-15 minutes. albuterol HFA (PROAIR HFA) 90 mcg/actuation inhaler Inhale 2 Puffs as instructed every 6 hours as needed for wheezing/shortness of breath. mepolizumab (NUCALA) 100 mg injection Inject 100 mg subcutaneously every 4 weeks. Nebulizer and Compressor For Neb Use as directed FEXOFENADINE HCL (LAQUITA ALLERGY ORAL) Take by mouth once daily. citalopram hydrobromide (CELEXA) 10 mg tablet Take 1 tablet by mouth every other day. cariprazine (VRAYLAR) 3 mg capsule Take 1 capsule by mouth once daily. [DISCONTINUED] levalbuterol tartrate HFA 45 mcg/actuation inhaler Inhale 2 Puffs as instructed every 4 hours as needed for wheezing/shortness of breath. ergocalciferol 50,000 unit capsule (VITAMIN D2, DRISDOL) Take 1 capsule by mouth one time a week. FAMILY HISTORY Problem Relation Age of Onset Heart Attack Maternal Grandfather Social History Tobacco Use Smoking status: Never Smokeless tobacco: Never Vaping Use Vaping status: Never Used Substance Use Topics Alcohol use: Yes Comment: social Drug use: No Physical Exam Constitutional: Appearance: Normal appearance. HENT: Head: Normocephalic. Mouth/Throat: Mouth: Mucous membranes are moist. Cardiovascular: Rate and Rhythm: Normal r (more content not included)... Normal [facility] Cherie 05-05-2024 [facility] Telephone (EMQ) IRVIN KLINE ([id number]) 1990 F Date Time Provider Department 05/05/24 DYLAN TOPETE During your visit today, we recorded the following information about you: Wiliam Lemon 05/05/2024 12:18 PM Signed Blood-Glucose Sensor (DEXCOM G7 SENSOR) has been approved Notified patient through deng Johnson Prior Hydraulic Press In Operator Endocrinology AND Metabolism [place] Allergies As of Date: 05/05/2024 Noted Allergy Reaction ROCEPHIN (CEFTRIAXONE SODIUM) 05/12/2016 10 - Anaphylaxis Comments: per pt mother was 3yo Date Reviewed: 03/09/2024 Reviewed by: Cuca Rios MA - Fully Assessed Reason for Visit: Insurance Authorization [[id number]] Cmt: (DEXCOM G7 SENSOR) - Insurance Approval Prescriptions as of 05/05/2024 - montelukast (SINGULAIR) 10 mg tablet TAKE 1 TABLET BY MOUTH EVERY DAY - albuterol HFA (PROVENTIL HFA, VENTOLIN HFA) 90 mcg/actuation inhaler INHALE 2 PUFFS INSTRUCTED EVERY 4 HOURS NEEDED FOR WHEEZING/SHORTNESS OF BREATH. - budesonide (PULMICORT) 0.5 mg/2 mL nebulizer solution USE 2 ML VIA NEBULIZER EVERY 12 HOURS. INHALE OVER 5-15 MINUTES - mepolizumab (NUCALA) 100 mg/mL auto-injector INJECT 1 PEN UNDER THE SKIN EVERY 28 DAYS - fluticasone-salmeterol (WIXELA INHUB) 250-50 mcg/dose inhaler INHALE 1 PUFF INSTRUCTED TWO TIMES A DAY. - citalopram hydrobromide (CELEXA) 10 mg tablet Take 1 tablet by mouth every other day. - cariprazine (VRAYLAR) 3 mg capsule Take 1 capsule by mouth once daily. - Blood-Glucose Sensor (DEXCOM G7 SENSOR) mallika Use as directed to monitor blood glucose 4-6 times per day. Reactive hypoglycemia [E16.1] - Blood-Glucose Meter,Continuous (DEXCOM G7 CEMETERY VAULT INSTALLER) misc Use as directed to monitor blood glucose 4-6 times per day. Reactive hypoglycemia [E16.1] - metFORMIN ER (GLUCOPHAGE XR) 500 mg 24 hr tablet Take 1 tablet by mouth three times a day with meals. - lamoTRIgine (LAMICTAL) 100 mg tablet TAKE 1 TABLET BY MOUTH EVERYDAY AT BEDTIME - blood sugar diagnostic (BLOOD GLUCOSE TEST) test strip Use as instructed to check blood glucose level one time daily - fluticasone (FLONASE) 50 mcg/actuation nasal spray Use 1 [place]mont in each nostril once daily. - Blood-Glucose Transmitter (DEXCOM G6 TRANSMITTER) mallika 1 Each once daily. - levalbuterol tartrate HFA 45 mcg/actuation inhaler (Discontinued) Inhale 2 Puffs as instructed every 4 hours as needed for wheezing/shortness of breath. - Lancets lancets Use as instructed - Blood-Glucose Meter 1 Each once daily. - ergocalciferol 50,000 unit capsule (VITAMIN D2, DRISDOL) Take 1 capsule by mouth one time a week. - ferrous sulfate 325 mg (65 mg iron) tablet Take 1 tablet by mouth two times a day. - albuterol (PROVENTIL) 2.5 mg /3 mL (0.083 %) nebulizer solution Use 3 mL via nebulizer every 4 hours as needed for wheezing/shortness of breath. Inhale by nebulizer over 5-15 minutes. - albuterol HFA (PROAIR HFA) 90 mcg/actuation inhaler Inhale 2 Puffs as instructed every 6 hours as needed for wheezing/shortness of breath. - mepolizumab (NUCALA) 100 mg injection Inject 100 mg subcutaneously every 4 weeks. - Nebulizer and Compressor For Neb Use as directed - FEXOFENADINE HCL (LAQUITA ALLERGY ORAL) Take by mouth once daily. Problem List As Of Date 05/05/2024 Noted Resolved Decreased movements in second trimester [*05/12/2016 08/06/2016 Small for gestational age fetus affecting manag*06/17/2016 08/06/2016 Chronic bilateral low back pain without sciatic*07/12/2016 Herpes simplex of female genitalia [A60.09] 07/18/2016 False labor, antepartum [O47.9] 07/18/2016 08/06/2016 Poor growth affecting management of mothe*08/06/2016 08/09/2016 IUGR (intrauterine growth restriction) affectin*08/06/2016 08/09/2016 Oligohydramnios in third trimester [O41.03X0] 08/08/2016 08/09/2016 S/P section [Z98.891] 08/10/2016 Anxiety [F41.9] 03/20/2015 Asthma [J45.909] 11/30/2014 Depressive disorder [F32.A] 08/12/2022 Asthma, moderate persistent, poorly-controlled *09/26/2022 Pulmonary eosinophilia (HCC) [J82.89] 09/26/2022 Asthma, late onset, severe persistent, uncompli*09/26/2022 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] 03/17/2023 Reactive hypoglycemia [E16.1] 04/11/2023 Obesity, Class III, BMI >= 40 [E66.01] 04/12/2023 Adrenal insufficiency (HCC) [E27.40] 04/13/2023 Adrenal insufficiency due to corticosteroid wit*04/24/2023 Encounter Status:Closed by WILIAM LEMON on 05/05/24 [facility] CNOVon 03-09-2024 CNOV Office Visit (PULMGR ) IRVIN KLINE ([id number]) 1990 F Date Time Provider Department 03/09/24 2:00 PM ROBSON ZUNIGA PULMGR During your visit today, we recorded the following information about you: Temperature Pulse Respiration Blood pressure 98.2 degrees 86/minute 16/minute 132/81 Weight Height 114.3 kg 1.626 m Cuca Rios MA 03/10/2024 7:49 AM Signed [facility] ASTHMA CONTROL TEST Question 03/02/2024 2:03 PM EST - Filed by Patient 11/12/2023 4:27 PM EST - Filed by Patient 11/03/2023 12:29 PM EST - Filed by Patient Keep from getting things done 5 None of the time 2 Most of the time 5 None of the time Shortness of breath 4 Once or twice a week 1 More than once a day 5 Not at all Symptoms wake up at night or early in morning 5 Not at all 3 Once a week 5 Not at all How often have you used inhaler/nebulizer 3 2 or 3 times per week 4 Once a week or less 5 Not at all Rate your asthma control over past 4 weeks 4 Well controlled 4 Well controlled 4 Well controlled Asthma Control Test Score (range: 0 - 25) 21 14 Robson Zuniga MD 03/09/2024 2:23 PM Signed NUCALA Same budesonide and advair Montelukast PFT much better Robson Zuniga MD 03/10/2024 7:49 AM Signed ESTABLISHED PATIENT FOLLOW-UP SERVICE DATE: 03/09/2024 PRIMARY CARE PHYSICIAN: Donald Snowden DO SUBJECTIVE HPI:Irvin Kline is a 33 year old female here for follow appointment. Routine visit and past visit reviewed. See previous notes. Reviewed last note virtuals Not seen much office DMT2 now Obese [place] much better Less steroids Less alb States neb bud and moderate advair compliance LTA NUCALA very helpful SOCIAL HISTORY: Social History Tobacco Use Smoking status: Never Smokeless tobacco: Never Vaping Use Vaping status: Never Used Substance Use Topics Alcohol use: Yes Comment: social Drug use: No MEDICATIONS: Prior to Admission Medications (Not in a hospital admission) albuterol HFA (PROVENTIL HFA, VENTOLIN HFA) 90 mcg/actuation inhaler INHALE 2 PUFFS INSTRUCTED EVERY 4 HOURS NEEDED FOR WHEEZING/SHORTNESS OF BREATH. budesonide (PULMICORT) 0.5 mg/2 mL nebulizer solution USE 2 ML VIA NEBULIZER EVERY 12 HOURS. INHALE OVER 5-15 MINUTES mepolizumab (NUCALA) 100 mg/mL auto-injector INJECT 1 PEN UNDER THE SKIN EVERY 28 DAYS montelukast (SINGULAIR) 10 mg tablet TAKE 1 TABLET BY MOUTH EVERY DAY fluticasone-salmeterol (WIXELA INHUB) 250-50 mcg/dose inhaler INHALE 1 PUFF INSTRUCTED TWO TIMES A DAY. Blood-Glucose Sensor (DEXCOM G7 SENSOR) mallika Use as directed to monitor blood glucose 4-6 times per day. Reactive hypoglycemia [E16.1] Blood-Glucose Meter,Continuous (DEXCOM G7 CEMETERY VAULT INSTALLER) misc Use as directed to monitor blood glucose 4-6 times per day. Reactive hypoglycemia [E16.1] metFORMIN ER (GLUCOPHAGE XR) 500 mg 24 hr tablet Take 1 tablet by mouth three times a day with meals. lamoTRIgine (LAMICTAL) 100 mg tablet TAKE 1 TABLET BY MOUTH EVERYDAY AT BEDTIME traZODone (DESYREL) 100 mg tablet Take 1 tablet by mouth daily at bedtime. blood sugar diagnostic (BLOOD GLUCOSE TEST) test strip Use as instructed to check blood glucose level one time daily fluticasone (FLONASE) 50 mcg/actuation nasal spray Use 1 [place] in each nostril once daily. Blood-Glucose Transmitter (BioscanR, INCCOM G6 TRANSMITTER) mallika 1 Each once daily. Lancets lancets Use as instructed Blood-Glucose Meter 1 Each once daily. ergocalciferol 50,000 unit capsule (VITAMIN D2, DRISDOL) Take 1 capsule by mouth one time a week. ferrous sulfate 325 mg (65 mg iron) tablet Take 1 tablet by mouth two times a day. albuterol (PROVENTIL) 2.5 mg /3 mL (0.083 %) nebulizer solution Use 3 mL via nebulizer every 4 hours as needed for wheezing/shortness of breath. Inhale by nebulizer over 5-15 minutes. albuterol HFA (PROAIR HFA) 90 mcg/actuation inhaler Inhale 2 Puffs as instructed every 6 hours as needed for wheezing/shortness of breath. mepolizumab (NUCALA) 100 mg injection Inject 100 mg subcutaneously every 4 weeks. Nebulizer and Compressor For Neb Use as directed FEXOFENADINE HCL (LAQUITA ALLERGY ORAL) Take by mouth once daily. citalopram hydrobromide (CELEXA) 10 mg tablet Take 1 tablet by mouth every other day. cariprazine (VRAYLAR) 3 mg capsule Take 1 capsule by mouth once daily. [DISCONTINUED] levalbuterol tartrate HFA 45 mcg/actuation inhaler Inhale 2 Puffs as instructed every 4 hours as needed for wheezing/shortness of breath. CURRENT ALLERGIES: ALLERGIES Allergen Reactions Rocephin [Ceftriaxo* Anaphylaxis per pt mother was 3yo s. OBJECTIVE PHYSICAL EXAMINATION: VITAL SIGNS: BP 132/81 Pulse 86 Temp 98.2 Resp 16 Ht 5' 4 (1.63m) Wt 252 lb (114.3kg) SpO2 99% LMP 07/06/2023 BMI 43.23 kg/(m2). General appearance: well-nourished. Cordial. nontoxic. Obese. No cough Skin: Normal turgor. Not pallorous. N (more content not included)... Normal [facility] CNPNon 02-23-2024 CNPN Telephone (PULMGR) IRVIN KLINE ([id number]) 1990 F Date Time Provider Department 02/23/24 ROBSON ZUNIGA PULMGR During your visit today, we recorded the following information about you: Robert Olivarez RN 02/23/2024 2:09 PM Signed Spoke with patient regarding any recent insurance changes. Pt was unaware of changes and stated she would speak with her regarding that. [address] [facility] [place] number provided to update if needed and request for pt to update office with any recent changes to insurance. Pt verbalized understanding of all Robert Olivarez RN February 23, 2024 2:09 PM Allergies As of Date: 02/23/2024 Noted Allergy Reaction ROCEPHIN (CEFTRIAXONE SODIUM) 05/12/2016 10 - Anaphylaxis Comments: per pt mother was 3yo Date Reviewed: 12/03/2023 Reviewed by: Chase Bazan APRN.ACCOUNTS PAYABLE ASSOCIATE - Fully Assessed Prescriptions as of 02/23/2024 - budesonide (PULMICORT) 0.5 mg/2 mL nebulizer solution USE 2 ML VIA NEBULIZER EVERY 12 HOURS. INHALE OVER 5-15 MINUTES - mepolizumab (NUCALA) 100 mg/mL auto-injector INJECT 1 PEN UNDER THE SKIN EVERY 28 DAYS - montelukast (SINGULAIR) 10 mg tablet TAKE 1 TABLET BY MOUTH EVERY DAY - fluticasone-salmeterol (WIXELA INHUB) 250-50 mcg/dose inhaler INHALE 1 PUFF INSTRUCTED TWO TIMES A DAY. - citalopram hydrobromide (CELEXA) 10 mg tablet Take 1 tablet by mouth every other day. - cariprazine (VRAYLAR) 3 mg capsule Take 1 capsule by mouth once daily. - Blood-Glucose Sensor (DEXCOM G7 SENSOR) mallika Use as directed to monitor blood glucose 4-6 times per day. Reactive hypoglycemia [E16.1] - Blood-Glucose Meter,Continuous (DEXCOM G7 CEMETERY VAULT INSTALLER) misc Use as directed to monitor blood glucose 4-6 times per day. Reactive hypoglycemia [E16.1] - metFORMIN ER (GLUCOPHAGE XR) 500 mg 24 hr tablet Take 1 tablet by mouth three times a day with meals. - albuterol HFA (PROVENTIL HFA, VENTOLIN HFA) 90 mcg/actuation inhaler INHALE 2 PUFFS INSTRUCTED EVERY 4 HOURS NEEDED FOR WHEEZING/SHORTNESS OF BREATH. - lamoTRIgine (LAMICTAL) 100 mg tablet TAKE 1 TABLET BY MOUTH EVERYDAY AT BEDTIME - traZODone (DESYREL) 100 mg tablet Take 1 tablet by mouth daily at bedtime. - blood sugar diagnostic (BLOOD GLUCOSE TEST) test strip Use as instructed to check blood glucose level one time daily - predniSONE (DELTASONE) 20 mg tablet 2 a day for 3 days - fluticasone (FLONASE) 50 mcg/actuation nasal spray Use 1 [place]mont in each nostril once daily. - fluconazole (DIFLUCAN) 100 mg tablet Take 1 tablet by mouth once daily. - Blood-Glucose Transmitter (DEXCOM G6 TRANSMITTER) mallika 1 Each once daily. - levalbuterol tartrate HFA 45 mcg/actuation inhaler (Discontinued) Inhale 2 Puffs as instructed every 4 hours as needed for wheezing/shortness of breath. - Lancets lancets Use as instructed - Blood-Glucose Meter 1 Each once daily. - ergocalciferol 50,000 unit capsule (VITAMIN D2, DRISDOL) Take 1 capsule by mouth one time a week. - ferrous sulfate 325 mg (65 mg iron) tablet Take 1 tablet by mouth two times a day. - albuterol (PROVENTIL) 2.5 mg /3 mL (0.083 %) nebulizer solution Use 3 mL via nebulizer every 4 hours as needed for wheezing/shortness of breath. Inhale by nebulizer over 5-15 minutes. - albuterol HFA (PROAIR HFA) 90 mcg/actuation inhaler Inhale 2 Puffs as instructed every 6 hours as needed for wheezing/shortness of breath. - mepolizumab (NUCALA) 100 mg injection Inject 100 mg subcutaneously every 4 weeks. - Nebulizer and Compressor For Neb Use as directed - FEXOFENADINE HCL (LAQUITA ALLERGY ORAL) Take by mouth once daily. Problem List As Of Date 02/23/2024 Noted Resolved Decreased movements in second trimester [*05/12/2016 08/06/2016 Small for gestational age fetus affecting manag*06/17/2016 08/06/2016 Chronic bilateral low back pain without sciatic*07/12/2016 Herpes simplex of female genitalia [A60.09] 07/18/2016 False labor, antepartum [O47.9] 07/18/2016 08/06/2016 Poor growth affecting management of mothe*08/06/2016 08/09/2016 IUGR (intrauterine growth restriction) affectin*08/06/2016 08/09/2016 Oligohydramnios in third trimester [O41.03X0] 08/08/2016 08/09/2016 S/P section [Z98.891] 08/10/2016 Anxiety [F41.9] 03/20/2015 Asthma [J45.909] 11/30/2014 Depressive disorder [F32.A] 08/12/2022 Asthma, moderate persistent, poorly-controlled *09/26/2022 Pulmonary eosinophilia (HCC) [J82.89] 09/26/2022 Asthma, late onset, severe persistent, uncompli*09/26/2022 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] 03/17/2023 Reactive hypoglycemia [E16.1] 04/11/2023 Obesity, Class III, BMI >= 40 [E66.01] 04/12/2023 Adrenal insufficiency (HCC) [E27.40] 04/13/2023 Adrenal insufficiency due to corticosteroid wit*04/24/2023 Encounter Status:Closed by ROBERT OLIVAREZ on 02/23/24 [facility] CNOVon 11-06-2023 CNOV Office Visit (ENDTWN ) IRVIN KLINE ([id number]) 1990 F Date Time Provider Department 11/06/23 8:25 AM DYLAN TOPETE During your visit today, we recorded the following information about you: Pulse Blood pressure Weight 84/minute 118/78 113.9 kg Dylan Topete MD 11/06/2023 9:12 AM Signed Subjective: Irvin Kline presents for a follow-up visit. Clinical information regarding need for a continuous glucose monitor (CGM): Irvin Kline has unexplained hypoglycemia; episodes occur multiple times per day AND she has hypoglycemia unawareness Blood glucose log reviewed. She is USING THE CGM DEVICE TO MONITOR BLOOD GLUCOSE continuously 24 hours per day. She has done this for a 60-day period. Irvin is using this information to identify falling blood sugar levels and treat them with dietary interventions. Irvin will follow up every 3-6 months with me. I recommend a CGM for her to improve safety AND avoid severe hypoglycemic episodes requiring ED visits and hospitalization. It is a medical necessity for this patient to have a therapeutic CGM. Answers submitted by the patient for this visit: Core Review of Systems (Submitted on 10/30/2023) Fever : No Night sweats: No Recent unintentional weight change: No Nasal Congestion: No Hearing Loss: No Vision Disturbance: No A cough: No Difficulty Breathing?: No Chest pain: No Irregular heartbeat: No Leg Swelling: No Nausea: No Diarrhea: No Black tarry stools: No Difficulty Urinating?: No Awaken at Night More Than Once to Urinate?: No Joint pain or stiffness: No Muscle aches: No Leg or Foot Discomfort at Night?: No A rash: No Dizziness: No Headaches: No Memory Loss: No Seizures: No Current Outpatient Medications Medication Sig albuterol HFA (PROVENTIL HFA, VENTOLIN HFA) 90 mcg/actuation inhaler INHALE 2 PUFFS INSTRUCTED EVERY 4 HOURS NEEDED FOR WHEEZING/SHORTNESS OF BREATH. busPIRone (BUSPAR) 10 mg tablet Take 1 tablet by mouth three times a day. cariprazine (VRAYLAR) 4.5 mg capsule Take 1 capsule by mouth once daily. lamoTRIgine (LAMICTAL) 100 mg tablet TAKE 1 TABLET BY MOUTH EVERYDAY AT BEDTIME traZODone (DESYREL) 100 mg tablet Take 1 tablet by mouth daily at bedtime. montelukast (SINGULAIR) 10 mg tablet take 1 tablet by mouth every day fluticasone-salmeterol (ADVAIR, WIXELA) 250-50 mcg/dose inhaler INHALE 1 PUFF INSTRUCTED TWO TIMES A DAY. budesonide (PULMICORT) 0.5 mg/2 mL nebulizer solution USE 2 ML VIA NEBULIZER EVERY 12 HOURS. INHALE OVER 5-15 MINUTES blood sugar diagnostic (BLOOD GLUCOSE TEST) test strip Use as instructed to check blood glucose level one time daily predniSONE (DELTASONE) 20 mg tablet 2 a day for 3 days fluticasone (FLONASE) 50 mcg/actuation nasal spray Use 1 [place] in each nostril once daily. fluconazole (DIFLUCAN) 100 mg tablet Take 1 tablet by mouth once daily. Blood-Glucose Sensor (DEXCOM G6 SENSOR) mallika 1 Each once daily. Blood-Glucose Transmitter (DEXCOM G6 TRANSMITTER) mallika 1 Each once daily. metFORMIN ER (GLUCOPHAGE XR) 500 mg 24 hr tablet Take 1 tablet by mouth three times a day with meals. Blood-Glucose Meter,Continuous (DEXCOM G6 CEMETERY VAULT INSTALLER) misc 1 Each once daily. Lancets lancets Use as instructed Blood-Glucose Meter 1 Each once daily. ergocalciferol 50,000 unit capsule (VITAMIN D2, DRISDOL) Take 1 capsule by mouth one time a week. ferrous sulfate 325 mg (65 mg iron) tablet Take 1 tablet by mouth two times a day. albuterol (PROVENTIL) 2.5 mg /3 mL (0.083 %) nebulizer solution Use 3 mL via nebulizer every 4 hours as needed for wheezing/shortness of breath. Inhale by nebulizer over 5-15 minutes. albuterol HFA (PROAIR HFA) 90 mcg/actuation inhaler Inhale 2 Puffs as instructed every 6 hours as needed for wheezing/shortness of breath. mepolizumab (NUCALA) 100 mg injection Inject 100 mg subcutaneously every 4 weeks. Nebulizer and Compressor For Neb Use as directed FEXOFENADINE HCL (LAQUITA ALLERGY ORAL) Take by mouth once daily. No current facility-administered medications for this visit. Objective: BP 118/78 (BP Site: Left Arm, BP Position: Sitting, BP Cuff Size: Large Adult) Pulse 84 Wt 113.9 kg (251 lb 1.7 oz) LMP 07/06/2023 (Exact Date) BMI 43.10 kg/m? BMI 43.10 kg/(m2) Assessment AND Plan: (E16.1) Reactive hypoglycemia (primary encounter diagnosis) (R73.09) Abnormal glucose (E53.8) Vitamin B12 deficiency Her CGM data from the past 14 days was downloaded AND reviewed during the visit. Her time in range data is as follows: Very low (<55%): 0% Low (55-70 mg/dL): 0% Normal (70-180 mg/dL) 100% High (180-250 mg/dL): 0% Very high (>250 mg/dL): 0% Comment about the pattern(s) observed: Although the numbers are within the normal range of 70-180 mg/dL, there is a lot of variability, especially after meals. Irvin is making p (more content not included)... Normal [facility] HEMOGLOBIN A1C (POC)on 11-05 HbA1c (Bld) [Mass fraction] 5.2 % 4.3 - 5.6 % [facility] Comment on above: Location:[facility], [facility] Adriana Cannon, [place], [address] Point of care (POC) Hemoglobin A1c (HGBA1C) testing is intended to assess glucose control and provide a management tool for patients known to have diabetes and their healthcare providers. Target HGBA1C levels may depend on specific clinical circumstances. POC HGBA1C is not intended for use as a diagnostic or screening test; laboratory-based testing should be used for diagnostic purposes. The following information is supplemental and may not be applicable to specific diabetes management situations: The POC device maintainer plant provides a normal range of 4.2% to 6.5% for the HGBA1C POC test. However, the [place] [employer] guidelines indicate that patients with HGBA1C in the range of 5.7% to 6.4% are at increased risk for development of diabetes and that intervention by lifestyle modification may be beneficial. A HGBA1C level greater than or equal to 6.5% is considered diagnostic of diabetes, pending confirmatory testing. Use of HGBA1C testing to evaluate glucose control may not be appropriate for patients with hemoglobin variants or other conditions (e.g. anemia) that alter red blood cell lifespan. [facility] CNCOon 10-28-2023 CNCO Letter Text Normal [facility] NITRIC OXIDE, EXHALEDon 10-18 Mera Pérez RRT 10/28/2023 1:36 PM RESPIRATORY THERAPY ORAL EXHALED NITRIC OXIDE SERVICE DATE: 10/28/2023 SERVICE TIME: 1:36 PM Oral Exhaled Nitric Oxide measurement: 36.0 (ppb) Normal: Adult <25 ppb, pediatric (<12 years) <20 ppb High Normal / Increased: Adult 25-50 ppb, pediatric (<12 years) 20-35 ppb Moderately raised exhaled Nitric Oxide may indicate underlying inflammation, but note that: Cold and influenza can raise exhaled Nitric Oxide and some patients have higher baseline exhaled Nitric Oxide levels than others. High: Adult >50 ppb, pediatric (<12 years) >35 ppb Indicative of ongoing eosinophilic inflammation. Symptomatic patient likely to respond to steroids. Possible causes (if already on steroids): Poor compliance, recent allergen exposure, steroid dose inadequate, and steroid resistance. Note that not all patients with high exhaled nitric oxide levels display symptoms. Oral Exhaled Nitric Oxide measurement (Previous Encounters) Test Date Oral Exhaled Nitric Oxide (ppb) 10/28/2023 36.0 (A) 09/26/2022 71.0 (A) NAME: MERA PÉREZ RRT PATIENT NAME: Irvin Kline DATE: October 28, 2023 TIME: 1:36 PM [facility] Cherie 10-22-2023 CNPN Telephone (PULMJM) IRVIN KLINE ([id number]) 1990 F Date Time Provider Department 9/4/24 ROBSON ZUNIGA PULMJM During your visit today, we recorded the following information about you: Maame Smith 10/22/2023 12:49 PM Signed Received signed form back from dr. Zuniga- faxed over to Number on form [phone] Allergies As of Date: 10/22/2023 Noted Allergy Reaction ROCEPHIN (CEFTRIAXONE SODIUM) 05/12/2016 10 - Anaphylaxis Comments: per pt mother was 3yo Date Reviewed: 10/21/2023 Reviewed by: Chase Bazan APRN.ACCOUNTS PAYABLE ASSOCIATE - Fully Assessed Reason for Visit: Patient Update [1234] Cmt: [employer] Prescriptions as of 10/22/2023 - busPIRone (BUSPAR) 10 mg tablet Take 1 tablet by mouth three times a day. - cariprazine (VRAYLAR) 4.5 mg capsule Take 1 capsule by mouth once daily. - lamoTRIgine (LAMICTAL) 100 mg tablet TAKE 1 TABLET BY MOUTH EVERYDAY AT BEDTIME - traZODone (DESYREL) 100 mg tablet Take 1 tablet by mouth daily at bedtime. - montelukast (SINGULAIR) 10 mg tablet take 1 tablet by mouth every day - fluticasone-salmeterol (ADVAIR, WIXELA) 250-50 mcg/dose inhaler INHALE 1 PUFF INSTRUCTED TWO TIMES A DAY. - budesonide (PULMICORT) 0.5 mg/2 mL nebulizer solution USE 2 ML VIA NEBULIZER EVERY 12 HOURS. INHALE OVER 5-15 MINUTES - blood sugar diagnostic (BLOOD GLUCOSE TEST) test strip Use as instructed to check blood glucose level one time daily - predniSONE (DELTASONE) 20 mg tablet 2 a day for 3 days - fluticasone (FLONASE) 50 mcg/actuation nasal spray Use 1 [place] in each nostril once daily. - fluconazole (DIFLUCAN) 100 mg tablet Take 1 tablet by mouth once daily. - albuterol HFA (PROVENTIL HFA, VENTOLIN HFA) 90 mcg/actuation inhaler Inhale 2 Puffs as instructed every 4 hours as needed for wheezing/shortness of breath. - Blood-Glucose Sensor (DEXCOM G6 SENSOR) mallika 1 Each once daily. - Blood-Glucose Transmitter (DEXCOM G6 TRANSMITTER) mallika 1 Each once daily. - metFORMIN ER (GLUCOPHAGE XR) 500 mg 24 hr tablet Take 1 tablet by mouth three times a day with meals. - levalbuterol tartrate HFA 45 mcg/actuation inhaler (Discontinued) Inhale 2 Puffs as instructed every 4 hours as needed for wheezing/shortness of breath. - Blood-Glucose Meter,Continuous (DEXCOM G6 CEMETERY VAULT INSTALLER) misc 1 Each once daily. - Lancets lancets Use as instructed - Blood-Glucose Meter 1 Each once daily. - ergocalciferol 50,000 unit capsule (VITAMIN D2, DRISDOL) Take 1 capsule by mouth one time a week. - ferrous sulfate 325 mg (65 mg iron) tablet Take 1 tablet by mouth two times a day. - albuterol (PROVENTIL) 2.5 mg /3 mL (0.083 %) nebulizer solution Use 3 mL via nebulizer every 4 hours as needed for wheezing/shortness of breath. Inhale by nebulizer over 5-15 minutes. - albuterol HFA (PROAIR HFA) 90 mcg/actuation inhaler Inhale 2 Puffs as instructed every 6 hours as needed for wheezing/shortness of breath. - mepolizumab (NUCALA) 100 mg injection Inject 100 mg subcutaneously every 4 weeks. - Nebulizer and Compressor For Neb Use as directed - FEXOFENADINE HCL (LAQUITA ALLERGY ORAL) Take by mouth once daily. Problem List As Of Date 10/22/2023 Noted Resolved Decreased movements in second trimester [*05/12/2016 08/06/2016 Small for gestational age fetus affecting manag*06/17/2016 08/06/2016 Chronic bilateral low back pain without sciatic*07/12/2016 Herpes simplex of female genitalia [A60.09] 07/18/2016 False labor, antepartum [O47.9] 07/18/2016 08/06/2016 Poor growth affecting management of mothe*08/06/2016 08/09/2016 IUGR (intrauterine growth restriction) affectin*08/06/2016 08/09/2016 Oligohydramnios in third trimester [O41.03X0] 08/08/2016 08/09/2016 S/P section [Z98.891] 08/10/2016 Anxiety [F41.9] 03/20/2015 Asthma [J45.909] 11/30/2014 Depressive disorder [F32.A] 08/12/2022 Asthma, moderate persistent, poorly-controlled *09/26/2022 Pulmonary eosinophilia (HCC) [J82.89] 09/26/2022 Asthma, late onset, severe persistent, uncompli*09/26/2022 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] 03/17/2023 Reactive hypoglycemia [E16.1] 04/11/2023 Obesity, Class III, BMI >= 40 [E66.01] 04/12/2023 Adrenal insufficiency (HCC) [E27.40] 04/13/2023 Adrenal insufficiency due to corticosteroid wit*04/24/2023 Encounter Status:Closed by MAAME SMITH on 10/22/23 [facility] CNPN Telephone (PULMGR) IRVIN KLINE ([id number]) 1990 F Date Time Provider Department 10/22/23 ROBSON ZUNIGA PULMGR During your visit today, we recorded the following information about you: Jennifer Blackman RN 10/22/2023 11:07 AM Signed Pt called notes she has cold symptoms, stuffy runny nose, had sore throat a couple days ago but feeling ok now, cough, no productive, no fever, chest tightness. Asked patient to test for covid. She will get a test CLARA. Pt wants to take RX for prednisone she has at home. Advised pt to test first and let us know the results. Nicki Cross 10/23/2023 10:40 AM Signed Patient scheduled 10/27 for breathing tests Jennifer Blackman RN 10/23/2023 11:35 AM Signed Called patient to check status of covid test and symptoms, no answer. Left VM to call offJennifer Coronel RN 10/24/2023 8:59 AM Signed Spoke with pt, covid was negative, she is feeling better and needs no medication at this time. Allergies As of Date: 10/22/2023 Noted Allergy Reaction ROCEPHIN (CEFTRIAXONE SODIUM) 05/12/2016 10 - Anaphylaxis Comments: per pt mother was 3yo Date Reviewed: 10/21/2023 Reviewed by: Chase Bazan APRN.ACCOUNTS PAYABLE ASSOCIATE - Fully Assessed Reason for Visit: Patient Question [1477] Prescriptions as of 10/24/2023 - busPIRone (BUSPAR) 10 mg tablet Take 1 tablet by mouth three times a day. - cariprazine (VRAYLAR) 4.5 mg capsule Take 1 capsule by mouth once daily. - lamoTRIgine (LAMICTAL) 100 mg tablet TAKE 1 TABLET BY MOUTH EVERYDAY AT BEDTIME - traZODone (DESYREL) 100 mg tablet Take 1 tablet by mouth daily at bedtime. - montelukast (SINGULAIR) 10 mg tablet take 1 tablet by mouth every day - fluticasone-salmeterol (ADVAIR, WIXELA) 250-50 mcg/dose inhaler INHALE 1 PUFF INSTRUCTED TWO TIMES A DAY. - budesonide (PULMICORT) 0.5 mg/2 mL nebulizer solution USE 2 ML VIA NEBULIZER EVERY 12 HOURS. INHALE OVER 5-15 MINUTES - blood sugar diagnostic (BLOOD GLUCOSE TEST) test strip Use as instructed to check blood glucose level one time daily - predniSONE (DELTASONE) 20 mg tablet 2 a day for 3 days - fluticasone (FLONASE) 50 mcg/actuation nasal spray Use 1 [place] in each nostril once daily. - fluconazole (DIFLUCAN) 100 mg tablet Take 1 tablet by mouth once daily. - albuterol HFA (PROVENTIL HFA, VENTOLIN HFA) 90 mcg/actuation inhaler Inhale 2 Puffs as instructed every 4 hours as needed for wheezing/shortness of breath. - Blood-Glucose Sensor (DEXCOM G6 SENSOR) mallika 1 Each once daily. - Blood-Glucose Transmitter (DEXCOM G6 TRANSMITTER) mallika 1 Each once daily. - metFORMIN ER (GLUCOPHAGE XR) 500 mg 24 hr tablet Take 1 tablet by mouth three times a day with meals. - levalbuterol tartrate HFA 45 mcg/actuation inhaler (Discontinued) Inhale 2 Puffs as instructed every 4 hours as needed for wheezing/shortness of breath. - Blood-Glucose Meter,Continuous (DEXCOM G6 CEMETERY VAULT INSTALLER) misc 1 Each once daily. - Lancets lancets Use as instructed - Blood-Glucose Meter 1 Each once daily. - ergocalciferol 50,000 unit capsule (VITAMIN D2, DRISDOL) Take 1 capsule by mouth one time a week. - ferrous sulfate 325 mg (65 mg iron) tablet Take 1 tablet by mouth two times a day. - albuterol (PROVENTIL) 2.5 mg /3 mL (0.083 %) nebulizer solution Use 3 mL via nebulizer every 4 hours as needed for wheezing/shortness of breath. Inhale by nebulizer over 5-15 minutes. - albuterol HFA (PROAIR HFA) 90 mcg/actuation inhaler Inhale 2 Puffs as instructed every 6 hours as needed for wheezing/shortness of breath. - mepolizumab (NUCALA) 100 mg injection Inject 100 mg subcutaneously every 4 weeks. - Nebulizer and Compressor For Neb Use as directed - FEXOFENADINE HCL (LAQUITA ALLERGY ORAL) Take by mouth once daily. Problem List As Of Date 10/22/2023 Noted Resolved Decreased movements in second trimester [*05/12/2016 08/06/2016 Small for gestational age fetus affecting manag*06/17/2016 08/06/2016 Chronic bilateral low back pain without sciatic*07/12/2016 Herpes simplex of female genitalia [A60.09] 07/18/2016 False labor, antepartum [O47.9] 07/18/2016 08/06/2016 Poor growth affecting management of mothe*08/06/2016 08/09/2016 IUGR (intrauterine growth restriction) affectin*08/06/2016 08/09/2016 Oligohydramnios in third trimester [O41.03X0] 08/08/2016 08/09/2016 S/P section [Z98.891] 08/10/2016 Anxiety [F41.9] 03/20/2015 Asthma [J45.909] 11/30/2014 Depressive disorder [F32.A] 08/12/2022 Asthma, moderate persistent, poorly-controlled *09/26/2022 Pulmonary eosinophilia (HCC) [J82.89] 09/26/2022 Asthma, late onset, severe persistent, uncompli*09/26/2022 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] 03/17/2023 Reactive hypoglycemia [E16.1] 04/11/2023 Obesity, Class III, BMI >= 40 [E66.01] 04/12/2023 Adrenal insufficiency (HCC) [E27.40] 04/13/2023 Adrenal insufficiency due to corticosteroid (more content not included)... Normal [facility] CNPNon 10-21-2023 CNPN Telephone ([facility] IRVIN KLINE ([id number]) 1990 F Date Time Provider Department 10/21/23 ROBSON ZUNIGA [facility] During your visit today, we recorded the following information about you: Chad Gore 10/21/2023 9:30 AM Signed Type of form: [employer] Form received via fax When form is completed, Fax form to Form has been faxed to [facility] office for completion for Dr. Zuniga inbox. Shu Strickland 10/21/2023 1:24 PM Signed Robson Zuniga MD Busta, Lisbeth; [facility] hour ago (11:55 AM) Happy to discuss at next appt. I dont think she made it for last appt. Chad Gore 10/21/2023 1:[address] Zuniga, She did cancel for September but she was seen virtual by you on 04/24/2023, would this suffice? Thank you Chad Pittman 10/21/2023 2:[address] Zuniga, So noted, I will send a scheduling request. Thank you Chad Pittman 10/21/2023 2:29 PM Signed PSS: Please schedule patient in office clara for Efrain or CRYPTOGRAPHER follow up to be seen for Medical Certification [facility] assistance. Thank you in advance for your help. Thank you Chad Blanchardtonio Nicki Cross 10/21/2023 2:40 PM Signed Called patient- she said she is already scheduled for follow up. Just wanting to know if we got the papers from [facility] Bao Chad 10/21/2023 2:[address] Zuniga stated he will sign papers at her next visit, she has not been seen in 6 mos. If she needs sooner than 11/03/23 she can be scheduled clara w/CRYPTOGRAPHER. The form is at the [facility]. Chad Blanchardtonio Gore [facility] 10/21/2023 3:[address] Zuniga, Form was faxed this morning, I have just sent it to the [facility] again if you want to sign the document. Thanks Chad Pittman 10/22/2023 3:41 PM Signed Patient has taken an earlier appointment w/Pam Montgomery on 10/28/23 at [facility]. Chad Bao Gore [facility] 10/23/2023 9:[address] Zuniga, I called patient and relayed your message, she cancelled w/Pam and said she will see you on 11/03/23. Thank you Chad Gore Allergies As of Date: 10/21/2023 Noted Allergy Reaction ROCEPHIN (CEFTRIAXONE SODIUM) 05/12/2016 10 - Anaphylaxis Comments: per pt mother was 3yo Date Reviewed: 10/21/2023 Reviewed by: Chase Bazan APRN.ACCOUNTS PAYABLE ASSOCIATE - Fully Assessed Reason for Visit: Appointment [186] Cmt: Certification of Illness [facility] Prescriptions as of 10/23/2023 - busPIRone (BUSPAR) 10 mg tablet Take 1 tablet by mouth three times a day. - cariprazine (VRAYLAR) 4.5 mg capsule Take 1 capsule by mouth once daily. - lamoTRIgine (LAMICTAL) 100 mg tablet TAKE 1 TABLET BY MOUTH EVERYDAY AT BEDTIME - traZODone (DESYREL) 100 mg tablet Take 1 tablet by mouth daily at bedtime. - montelukast (SINGULAIR) 10 mg tablet take 1 tablet by mouth every day - fluticasone-salmeterol (ADVAIR, WIXELA) 250-50 mcg/dose inhaler INHALE 1 PUFF INSTRUCTED TWO TIMES A DAY. - budesonide (PULMICORT) 0.5 mg/2 mL nebulizer solution USE 2 ML VIA NEBULIZER EVERY 12 HOURS. INHALE OVER 5-15 MINUTES - blood sugar diagnostic (BLOOD GLUCOSE TEST) test strip Use as instructed to check blood glucose level one time daily - predniSONE (DELTASONE) 20 mg tablet 2 a day for 3 days - fluticasone (FLONASE) 50 mcg/actuation nasal spray Use 1 [place] in each nostril once daily. - fluconazole (DIFLUCAN) 100 mg tablet Take 1 tablet by mouth once daily. - albuterol HFA (PROVENTIL HFA, VENTOLIN HFA) 90 mcg/actuation inhaler Inhale 2 Puffs as instructed every 4 hours as needed for wheezing/shortness of breath. - Blood-Glucose Sensor (DEXCOM G6 SENSOR) mallika 1 Each once daily. - Blood-Glucose Transmitter (DEXCOM G6 TRANSMITTER) mallika 1 Each once daily. - metFORMIN ER (GLUCOPHAGE XR) 500 mg 24 hr tablet Take 1 tablet by mouth three times a day with meals. - levalbuterol tartrate HFA 45 mcg/actuation inhaler (Discontinued) Inhale 2 Puffs as instructed every 4 hours as needed for wheezing/shortness of breath. - Blood-Glucose Meter,Continuous (DEXCOM G6 CEMETERY VAULT INSTALLER) misc 1 Each once daily. - Lancets lancets Use as instructed - Blood-Glucose Meter 1 Each once daily. - ergocalciferol 50,000 unit capsule (VITAMIN D2, DRISDOL) Take 1 capsule by mouth one time a week. - ferrous sulfate 325 mg (65 mg iron) tablet Take 1 tablet by mouth two times a day. - albuterol (PROVENTIL) 2.5 mg /3 mL (0.083 %) nebulizer solution Use 3 mL via nebulizer every 4 hours as needed for wheezing/shortness of breath. Inhale by nebulizer over 5-15 minutes. - albuterol HFA (PROAIR HFA) 90 mcg/actuation inhaler Inhale 2 Puffs as instructed every 6 hours as needed for wheezing/shortness of breath. - mepolizumab (NUCALA) 100 mg injection Inject 100 mg subcutaneously every 4 weeks. - Nebuli (more content not included)... [facility] IRVIN KLINE ([id number]) 1990 F Date Time Provider Department 10/21/23 ROBSON ZUINGA [facility] During your visit today, we recorded the following information about you: Chad Gore 10/21/2023 2:29 PM Addendum Opened in error, see duplicate encounter Allergies As of Date: 10/21/2023 Noted Allergy Reaction ROCEPHIN (CEFTRIAXONE SODIUM) 05/12/2016 10 - Anaphylaxis Comments: per pt mother was 3yo Date Reviewed: 10/21/2023 Reviewed by: Chase Bazan APRN.ACCOUNTS PAYABLE ASSOCIATE - Fully Assessed Reason for Visit: Appointment [186] Cmt: [facility] Certification of Illness Prescriptions as of 10/21/2023 - montelukast (SINGULAIR) 10 mg tablet take 1 tablet by mouth every day - cariprazine (VRAYLAR) 4.5 mg capsule Take 1 capsule by mouth once daily. - traZODone (DESYREL) 50 mg tablet Take 1 tablet by mouth daily at bedtime. - lamoTRIgine (LAMICTAL) 100 mg tablet TAKE 1 TABLET BY MOUTH EVERYDAY AT BEDTIME - busPIRone (BUSPAR) 10 mg tablet Take 1 tablet by mouth three times a day. - fluticasone-salmeterol (ADVAIR, WIXELA) 250-50 mcg/dose inhaler INHALE 1 PUFF INSTRUCTED TWO TIMES A DAY. - budesonide (PULMICORT) 0.5 mg/2 mL nebulizer solution USE 2 ML VIA NEBULIZER EVERY 12 HOURS. INHALE OVER 5-15 MINUTES - blood sugar diagnostic (BLOOD GLUCOSE TEST) test strip Use as instructed to check blood glucose level one time daily - predniSONE (DELTASONE) 20 mg tablet 2 a day for 3 days - fluticasone (FLONASE) 50 mcg/actuation nasal spray Use 1 [place] in each nostril once daily. - fluconazole (DIFLUCAN) 100 mg tablet Take 1 tablet by mouth once daily. - albuterol HFA (PROVENTIL HFA, VENTOLIN HFA) 90 mcg/actuation inhaler Inhale 2 Puffs as instructed every 4 hours as needed for wheezing/shortness of breath. - Blood-Glucose Sensor (DEXCOM G6 SENSOR) mallika 1 Each once daily. - Blood-Glucose Transmitter (DEXCOM G6 TRANSMITTER) mallika 1 Each once daily. - metFORMIN ER (GLUCOPHAGE XR) 500 mg 24 hr tablet Take 1 tablet by mouth three times a day with meals. - levalbuterol tartrate HFA 45 mcg/actuation inhaler (Discontinued) Inhale 2 Puffs as instructed every 4 hours as needed for wheezing/shortness of breath. - Blood-Glucose Meter,Continuous (DEXCOM G6 CEMETERY VAULT INSTALLER) misc 1 Each once daily. - Lancets lancets Use as instructed - Blood-Glucose Meter 1 Each once daily. - ergocalciferol 50,000 unit capsule (VITAMIN D2, DRISDOL) Take 1 capsule by mouth one time a week. - ferrous sulfate 325 mg (65 mg iron) tablet Take 1 tablet by mouth two times a day. - albuterol (PROVENTIL) 2.5 mg /3 mL (0.083 %) nebulizer solution Use 3 mL via nebulizer every 4 hours as needed for wheezing/shortness of breath. Inhale by nebulizer over 5-15 minutes. - albuterol HFA (PROAIR HFA) 90 mcg/actuation inhaler Inhale 2 Puffs as instructed every 6 hours as needed for wheezing/shortness of breath. - mepolizumab (NUCALA) 100 mg injection Inject 100 mg subcutaneously every 4 weeks. - Nebulizer and Compressor For Neb Use as directed - FEXOFENADINE HCL (LAQUITA ALLERGY ORAL) Take by mouth once daily. Problem List As Of Date 10/21/2023 Noted Resolved Decreased movements in second trimester [*05/12/2016 08/06/2016 Small for gestational age fetus affecting manag*06/17/2016 08/06/2016 Chronic bilateral low back pain without sciatic*07/12/2016 Herpes simplex of female genitalia [A60.09] 07/18/2016 False labor, antepartum [O47.9] 07/18/2016 08/06/2016 Poor growth affecting management of mothe*08/06/2016 08/09/2016 IUGR (intrauterine growth restriction) affectin*08/06/2016 08/09/2016 Oligohydramnios in third trimester [O41.03X0] 08/08/2016 08/09/2016 S/P section [Z98.891] 08/10/2016 Anxiety [F41.9] 03/20/2015 Asthma [J45.909] 11/30/2014 Depressive disorder [F32.A] 08/12/2022 Asthma, moderate persistent, poorly-controlled *09/26/2022 Pulmonary eosinophilia (HCC) [J82.89] 09/26/2022 Asthma, late onset, severe persistent, uncompli*09/26/2022 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] 03/17/2023 Reactive hypoglycemia [E16.1] 04/11/2023 Obesity, Class III, BMI >= 40 [E66.01] 04/12/2023 Adrenal insufficiency (HCC) [E27.40] 04/13/2023 Adrenal insufficiency due to corticosteroid wit*04/24/2023 Encounter Status:Closed by CHAD [id number] IRV[facility] ([id number]) 1990 F Date Time Provider Department 10/16/23 CHASE BAZAN [id number] During your visit today, we recorded the following information about you: Josefina Buchanan 10/16/2023 10:29 AM Signed PAtient called and stated she is still having issues sleeping, even with the 50mg Trazodone. She states she can fall asleep but can't stay asleep. Chase Lockhart, GOLF PLAYER ASSISTANT.SHEN 10/16/2023 12:29 PM Signed New order: Increase trazodone 50mg to 2 tablets at bedtime. Should have enough to get to appointment on 10/21/23. Allergies As of Date: 10/16/2023 Noted Allergy Reaction ROCEPHIN (CEFTRIAXONE SODIUM) 05/12/2016 10 - Anaphylaxis Comments: per pt mother was 3yo Date Reviewed: 10/03/2023 Reviewed by: Chase Bazan APRN.SHEN - Fully Assessed Reason for Visit: Patient Update [1234] Prescriptions as of 10/16/2023 - montelukast (SINGULAIR) 10 mg tablet take 1 tablet by mouth every day - cariprazine (VRAYLAR) 4.5 mg capsule Take 1 capsule by mouth once daily. - traZODone (DESYREL) 50 mg tablet Take 1 tablet by mouth daily at bedtime. - lamoTRIgine (LAMICTAL) 100 mg tablet TAKE 1 TABLET BY MOUTH EVERYDAY AT BEDTIME - busPIRone (BUSPAR) 10 mg tablet Take 1 tablet by mouth three times a day. - citalopram hydrobromide (CELEXA) 10 mg tablet Take 1 tablet by mouth once daily. - fluticasone-salmeterol (ADVAIR, WIXELA) 250-50 mcg/dose inhaler INHALE 1 PUFF INSTRUCTED TWO TIMES A DAY. - budesonide (PULMICORT) 0.5 mg/2 mL nebulizer solution USE 2 ML VIA NEBULIZER EVERY 12 HOURS. INHALE OVER 5-15 MINUTES - blood sugar diagnostic (BLOOD GLUCOSE TEST) test strip Use as instructed to check blood glucose level one time daily - predniSONE (DELTASONE) 20 mg tablet 2 a day for 3 days - fluticasone (FLONASE) 50 mcg/actuation nasal spray Use 1 [place] in each nostril once daily. - fluconazole (DIFLUCAN) 100 mg tablet Take 1 tablet by mouth once daily. - albuterol HFA (PROVENTIL HFA, VENTOLIN HFA) 90 mcg/actuation inhaler Inhale 2 Puffs as instructed every 4 hours as needed for wheezing/shortness of breath. - Blood-Glucose Sensor (DEXCOM G6 SENSOR) mallika 1 Each once daily. - Blood-Glucose Transmitter (DEXCOM G6 TRANSMITTER) mallika 1 Each once daily. - metFORMIN ER (GLUCOPHAGE XR) 500 mg 24 hr tablet Take 1 tablet by mouth three times a day with meals. - levalbuterol tartrate HFA 45 mcg/actuation inhaler (Discontinued) Inhale 2 Puffs as instructed every 4 hours as needed for wheezing/shortness of breath. - Blood-Glucose Meter,Continuous (DEXCOM G6 CEMETERY VAULT INSTALLER) misc 1 Each once daily. - Lancets lancets Use as instructed - Blood-Glucose Meter 1 Each once daily. - ergocalciferol 50,000 unit capsule (VITAMIN D2, DRISDOL) Take 1 capsule by mouth one time a week. - ferrous sulfate 325 mg (65 mg iron) tablet Take 1 tablet by mouth two times a day. - albuterol (PROVENTIL) 2.5 mg /3 mL (0.083 %) nebulizer solution Use 3 mL via nebulizer every 4 hours as needed for wheezing/shortness of breath. Inhale by nebulizer over 5-15 minutes. - albuterol HFA (PROAIR HFA) 90 mcg/actuation inhaler Inhale 2 Puffs as instructed every 6 hours as needed for wheezing/shortness of breath. - mepolizumab (NUCALA) 100 mg injection Inject 100 mg subcutaneously every 4 weeks. - Nebulizer and Compressor For Neb Use as directed - FEXOFENADINE HCL (LAQUITA ALLERGY ORAL) Take by mouth once daily. Problem List As Of Date 10/16/2023 Noted Resolved Decreased movements in second trimester [*05/12/2016 08/06/2016 Small for gestational age fetus affecting manag*06/17/2016 08/06/2016 Chronic bilateral low back pain without sciatic*07/12/2016 Herpes simplex of female genitalia [A60.09] 07/18/2016 False labor, antepartum [O47.9] 07/18/2016 08/06/2016 Poor growth affecting management of mothe*08/06/2016 08/09/2016 IUGR (intrauterine growth restriction) affectin*08/06/2016 08/09/2016 Oligohydramnios in third trimester [O41.03X0] 08/08/2016 08/09/2016 S/P section [Z98.891] 08/10/2016 Anxiety [F41.9] 03/20/2015 Asthma [J45.909] 11/30/2014 Depressive disorder [F32.A] 08/12/2022 Asthma, moderate persistent, poorly-controlled *09/26/2022 Pulmonary eosinophilia (HCC) [J82.89] 09/26/2022 Asthma, late onset, severe persistent, uncompli*09/26/2022 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] 03/17/2023 Reactive hypoglycemia [E16.1] 04/11/2023 Obesity, Class III, BMI >= 40 [E66.01] 04/12/2023 Adrenal insufficiency (HCC) [E27.40] 04/13/2023 Adrenal insufficiency due to corticosteroid wit*04/24/2023 Encounter Status:Closed by CHASE BAZAN on 10/16/23 [facility] CNCOon 10-03-2023 CNCO Letter Text [facility] CNPNon 09-25-2023 CNPN Telephone (ENDTWN) IRVIN KLINE ([id number]) 1990 F Date Time Provider Department 09/25/23 DYLAN TOPETE During your visit today, we recorded the following information about you: Segundo Tadeo 09/25/2023 11:35 AM Signed Irvin is calling Dylan Topete MD today with concern regarding extreme fluctuation of blood glucose levels with symptoms of lightheadedness, sweating, etc. Not sure if she stay at work or go home. She relays her BS were low last night and now high. Patient has been identified by name and birthdate. Duration of symptoms: N/A Person calling: self Call patient at: on cell [phone] (home) [phone] (cell) Was an appointment scheduled: No Closing statement: Symptom Call: Thank you for calling [facility], your call is very important. A nurse will call in approximately 2-4 hours during business hours. If this is an emergency, please contact 911. Misty Bullock RN 09/25/2023 12:41 PM Addendum Called and spoke with patient. Patient has a history of Reactive Hypoglycemia. She states that today she ate a slice of pizza and had some water and soon after her blood sugars dropped. She states that she wears a CGM (see summary) and noticed she was having a low, was symptomatic as well, lightheaded, sweating, etc. I advised patient to check her sugar with a fingerstick and she said she did and it was only about a 10-15 point difference between the two. Patient was concerned about staying at work feeling this way, I advised patient that if she is safe to drive home ie not low, symptomatic, then I feel it would be best for her to go home for the afternoon so that she can rest and have better access to care if needed. Patient verbalized an understanding. Confirmed with patient that she is taking metformin er 500 mg 1 tablet by mouth three times daily with meals. States she only took one dose today when she ate. Please review and advise. Thank you. Misty Martínez RN September 25, 2023 12:37 PM Sabina Dueñas MD 09/25/2023 12:58 PM Signed Please ask her to eat complex starches only, and small frequent meals. Any history of gastric surgery? Will need to see dietitian for nutrition advise. Thanks, Sabina Dueñas MD, MPH Misty Martínez RN 09/25/2023 1:53 PM Signed Called and spoke with patient. Gave her the message below. Patient verbalized an understanding. Misty Martínez RN September 25, 2023 1:53 PM Allergies As of Date: 09/25/2023 Noted Allergy Reaction ROCEPHIN (CEFTRIAXONE SODIUM) 05/12/2016 10 - Anaphylaxis Comments: per pt mother was 3yo Date Reviewed: 09/23/2023 Reviewed by: Chase Bazan APRN.ACCOUNTS PAYABLE ASSOCIATE - Fully Assessed Reason for Visit: extreme fluctuation of blood glucose levels [Other] Prescriptions as of 09/25/2023 - traZODone (DESYREL) 50 mg tablet Take 1 tablet by mouth daily at bedtime. - cariprazine (VRAYLAR) 3 mg capsule Take 1 capsule by mouth once daily. - lamoTRIgine (LAMICTAL) 100 mg tablet TAKE 1 TABLET BY MOUTH EVERYDAY AT BEDTIME - busPIRone (BUSPAR) 10 mg tablet Take 1 tablet by mouth three times a day. - citalopram hydrobromide (CELEXA) 10 mg tablet Take 1 tablet by mouth once daily. - fluticasone-salmeterol (ADVAIR, WIXELA) 250-50 mcg/dose inhaler INHALE 1 PUFF INSTRUCTED TWO TIMES A DAY. - budesonide (PULMICORT) 0.5 mg/2 mL nebulizer solution USE 2 ML VIA NEBULIZER EVERY 12 HOURS. INHALE OVER 5-15 MINUTES - blood sugar diagnostic (BLOOD GLUCOSE TEST) test strip Use as instructed to check blood glucose level one time daily - montelukast (SINGULAIR) 10 mg tablet take 1 tablet by mouth every day - predniSONE (DELTASONE) 20 mg tablet 2 a day for 3 days - fluticasone (FLONASE) 50 mcg/actuation nasal spray Use 1 [place] in each nostril once daily. - fluconazole (DIFLUCAN) 100 mg tablet Take 1 tablet by mouth once daily. - albuterol HFA (PROVENTIL HFA, VENTOLIN HFA) 90 mcg/actuation inhaler Inhale 2 Puffs as instructed every 4 hours as needed for wheezing/shortness of breath. - Blood-Glucose Sensor (DEXCOM G6 SENSOR) mallika 1 Each once daily. - Blood-Glucose Transmitter (DEXCOM G6 TRANSMITTER) mallika 1 Each once daily. - metFORMIN ER (GLUCOPHAGE XR) 500 mg 24 hr tablet Take 1 tablet by mouth three times a day with meals. - levalbuterol tartrate HFA 45 mcg/actuation inhaler (Discontinued) Inhale 2 Puffs as instructed every 4 hours as needed for wheezing/shortness of breath. - Blood-Glucose Meter,Continuous (DEXCOM G6 CEMETERY VAULT INSTALLER) misc 1 Each once daily. - Lancets lancets Use as instructed - Blood-Glucose Meter 1 Each once daily. - ergocalciferol 50,000 unit capsule (VITAMIN D2, DRISDOL) Take 1 capsule by mouth one time a week. - ferrous sulfate 325 mg (65 mg iron) tablet Take 1 tablet by mouth two times a day. - albuterol (PROVENTIL) 2.5 mg /3 mL (0.083 %) nebulizer solution Use 3 mL via ne (more content not included)... [facility] IRVIN KLINE ([id number]) 1990 F Date Time Provider Department 09/12/23 [facility] During your visit today, we recorded the following information about you: Shu Mcfarland 09/12/2023 1:13 PM Signed Order for nebulizer and supplies signed and faxed back to [facility]. Shu Mcfarland Allergies As of Date: 09/12/2023 Noted Allergy Reaction ROCEPHIN (CEFTRIAXONE SODIUM) 05/12/2016 10 - Anaphylaxis Comments: per pt mother was 3yo Date Reviewed: 09/09/2023 Reviewed by: Chase Bazan APRN.ACCOUNTS PAYABLE ASSOCIATE - Fully Assessed Reason for Visit: FYI-No Action Needed [265] Prescriptions as of 09/12/2023 - traZODone (DESYREL) 50 mg tablet Take 1 tablet by mouth daily at bedtime. - cariprazine (VRAYLAR) 1.5 mg capsule Take 1 capsule by mouth once daily. - fluticasone-salmeterol (ADVAIR, WIXELA) 250-50 mcg/dose inhaler INHALE 1 PUFF INSTRUCTED TWO TIMES A DAY. - busPIRone (BUSPAR) 10 mg tablet Take 1 tablet by mouth three times a day. - citalopram (CELEXA) 10 mg tablet Take 1 tablet by mouth once daily. - lurasidone (LATUDA) 80 mg tablet Take 1 tablet by mouth daily at bedtime. Take with a 350 calorie snack. - lamoTRIgine (LAMICTAL) 100 mg tablet TAKE 1 TABLET BY MOUTH EVERYDAY AT BEDTIME - budesonide (PULMICORT) 0.5 mg/2 mL nebulizer solution USE 2 ML VIA NEBULIZER EVERY 12 HOURS. INHALE OVER 5-15 MINUTES - blood sugar diagnostic (BLOOD GLUCOSE TEST) test strip Use as instructed to check blood glucose level one time daily - montelukast (SINGULAIR) 10 mg tablet take 1 tablet by mouth every day - predniSONE (DELTASONE) 20 mg tablet 2 a day for 3 days - fluticasone (FLONASE) 50 mcg/actuation nasal spray Use 1 [place] in each nostril once daily. - fluconazole (DIFLUCAN) 100 mg tablet Take 1 tablet by mouth once daily. - albuterol HFA (PROVENTIL HFA, VENTOLIN HFA) 90 mcg/actuation inhaler Inhale 2 Puffs as instructed every 4 hours as needed for wheezing/shortness of breath. - Blood-Glucose Sensor (DEXCOM G6 SENSOR) mallika 1 Each once daily. - Blood-Glucose Transmitter (DEXCOM G6 TRANSMITTER) mallika 1 Each once daily. - metFORMIN ER (GLUCOPHAGE XR) 500 mg 24 hr tablet Take 1 tablet by mouth three times a day with meals. - levalbuterol tartrate HFA 45 mcg/actuation inhaler (Discontinued) Inhale 2 Puffs as instructed every 4 hours as needed for wheezing/shortness of breath. - Blood-Glucose Meter,Continuous (DEXCOM G6 CEMETERY VAULT INSTALLER) misc 1 Each once daily. - Lancets lancets Use as instructed - Blood-Glucose Meter 1 Each once daily. - ergocalciferol 50,000 unit capsule (VITAMIN D2, DRISDOL) Take 1 capsule by mouth one time a week. - ferrous sulfate 325 mg (65 mg iron) tablet Take 1 tablet by mouth two times a day. - albuterol (PROVENTIL) 2.5 mg /3 mL (0.083 %) nebulizer solution Use 3 mL via nebulizer every 4 hours as needed for wheezing/shortness of breath. Inhale by nebulizer over 5-15 minutes. - albuterol HFA (PROAIR HFA) 90 mcg/actuation inhaler Inhale 2 Puffs as instructed every 6 hours as needed for wheezing/shortness of breath. - mepolizumab (NUCALA) 100 mg injection Inject 100 mg subcutaneously every 4 weeks. - Nebulizer and Compressor For Neb Use as directed - FEXOFENADINE HCL (LAQUITA ALLERGY ORAL) Take by mouth once daily. Problem List As Of Date 09/12/2023 Noted Resolved Decreased movements in second trimester [*05/12/2016 08/06/2016 Small for gestational age fetus affecting manag*06/17/2016 08/06/2016 Chronic bilateral low back pain without sciatic*07/12/2016 Herpes simplex of female genitalia [A60.09] 07/18/2016 False labor, antepartum [O47.9] 07/18/2016 08/06/2016 Poor growth affecting management of mothe*08/06/2016 08/09/2016 IUGR (intrauterine growth restriction) affectin*08/06/2016 08/09/2016 Oligohydramnios in third trimester [O41.03X0] 08/08/2016 08/09/2016 S/P section [Z98.891] 08/10/2016 Anxiety [F41.9] 03/20/2015 Asthma [J45.909] 11/30/2014 Depressive disorder [F32.A] 08/12/2022 Asthma, moderate persistent, poorly-controlled *09/26/2022 Pulmonary eosinophilia (HCC) [J82.89] 09/26/2022 Asthma, late onset, severe persistent, uncompli*09/26/2022 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] 03/17/2023 Reactive hypoglycemia [E16.1] 04/11/2023 Obesity, Class III, BMI >= 40 [E66.01] 04/12/2023 Adrenal insufficiency (HCC) [E27.40] 04/13/2023 Adrenal insufficiency due to corticosteroid wit*04/24/2023 Encounter Status:Closed by SHU MCFARLAND on 09/12/23 [facility] Telephone ([facility] IRVIN KLINE ([id number]) 1990 F Date Time Provider Department 09/11/23 [facility] During your visit today, we recorded the following information about you: Chad Gore 09/11/2023 3:37 PM Signed [facility] Documents sent for scanning. Chad Gore Allergies As of Date: 09/11/2023 Noted Allergy Reaction ROCEPHIN (CEFTRIAXONE SODIUM) 05/12/2016 10 - Anaphylaxis Comments: per pt mother was 3yo Date Reviewed: 09/09/2023 Reviewed by: Chase Bazan APRN.ACCOUNTS PAYABLE ASSOCIATE - Fully Assessed Reason for Visit: FYI-No Action Needed [265] Cmt: Confirmation of Order DME Prescriptions as of 09/11/2023 - traZODone (DESYREL) 50 mg tablet Take 1 tablet by mouth daily at bedtime. - cariprazine (VRAYLAR) 1.5 mg capsule Take 1 capsule by mouth once daily. - fluticasone-salmeterol (ADVAIR, WIXELA) 250-50 mcg/dose inhaler INHALE 1 PUFF INSTRUCTED TWO TIMES A DAY. - busPIRone (BUSPAR) 10 mg tablet Take 1 tablet by mouth three times a day. - citalopram (CELEXA) 10 mg tablet Take 1 tablet by mouth once daily. - lurasidone (LATUDA) 80 mg tablet Take 1 tablet by mouth daily at bedtime. Take with a 350 calorie snack. - lamoTRIgine (LAMICTAL) 100 mg tablet TAKE 1 TABLET BY MOUTH EVERYDAY AT BEDTIME - budesonide (PULMICORT) 0.5 mg/2 mL nebulizer solution USE 2 ML VIA NEBULIZER EVERY 12 HOURS. INHALE OVER 5-15 MINUTES - blood sugar diagnostic (BLOOD GLUCOSE TEST) test strip Use as instructed to check blood glucose level one time daily - montelukast (SINGULAIR) 10 mg tablet take 1 tablet by mouth every day - predniSONE (DELTASONE) 20 mg tablet 2 a day for 3 days - fluticasone (FLONASE) 50 mcg/actuation nasal spray Use 1 [place] in each nostril once daily. - fluconazole (DIFLUCAN) 100 mg tablet Take 1 tablet by mouth once daily. - albuterol HFA (PROVENTIL HFA, VENTOLIN HFA) 90 mcg/actuation inhaler Inhale 2 Puffs as instructed every 4 hours as needed for wheezing/shortness of breath. - Blood-Glucose Sensor (DEXCOM G6 SENSOR) mallika 1 Each once daily. - Blood-Glucose Transmitter (DEXCOM G6 TRANSMITTER) mallika 1 Each once daily. - metFORMIN ER (GLUCOPHAGE XR) 500 mg 24 hr tablet Take 1 tablet by mouth three times a day with meals. - levalbuterol tartrate HFA 45 mcg/actuation inhaler (Discontinued) Inhale 2 Puffs as instructed every 4 hours as needed for wheezing/shortness of breath. - Blood-Glucose Meter,Continuous (DEXCOM G6 CEMETERY VAULT INSTALLER) misc 1 Each once daily. - Lancets lancets Use as instructed - Blood-Glucose Meter 1 Each once daily. - ergocalciferol 50,000 unit capsule (VITAMIN D2, DRISDOL) Take 1 capsule by mouth one time a week. - ferrous sulfate 325 mg (65 mg iron) tablet Take 1 tablet by mouth two times a day. - albuterol (PROVENTIL) 2.5 mg /3 mL (0.083 %) nebulizer solution Use 3 mL via nebulizer every 4 hours as needed for wheezing/shortness of breath. Inhale by nebulizer over 5-15 minutes. - albuterol HFA (PROAIR HFA) 90 mcg/actuation inhaler Inhale 2 Puffs as instructed every 6 hours as needed for wheezing/shortness of breath. - mepolizumab (NUCALA) 100 mg injection Inject 100 mg subcutaneously every 4 weeks. - Nebulizer and Compressor For Neb Use as directed - FEXOFENADINE HCL (LAQUITA ALLERGY ORAL) Take by mouth once daily. Problem List As Of Date 09/11/2023 Noted Resolved Decreased movements in second trimester [*05/12/2016 08/06/2016 Small for gestational age fetus affecting manag*06/17/2016 08/06/2016 Chronic bilateral low back pain without sciatic*07/12/2016 Herpes simplex of female genitalia [A60.09] 07/18/2016 False labor, antepartum [O47.9] 07/18/2016 08/06/2016 Poor growth affecting management of mothe*08/06/2016 08/09/2016 IUGR (intrauterine growth restriction) affectin*08/06/2016 08/09/2016 Oligohydramnios in third trimester [O41.03X0] 08/08/2016 08/09/2016 S/P section [Z98.891] 08/10/2016 Anxiety [F41.9] 03/20/2015 Asthma [J45.909] 11/30/2014 Depressive disorder [F32.A] 08/12/2022 Asthma, moderate persistent, poorly-controlled *09/26/2022 Pulmonary eosinophilia (HCC) [J82.89] 09/26/2022 Asthma, late onset, severe persistent, uncompli*09/26/2022 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] 03/17/2023 Reactive hypoglycemia [E16.1] 04/11/2023 Obesity, Class III, BMI >= 40 [E66.01] 04/12/2023 Adrenal insufficiency (HCC) [E27.40] 04/13/2023 Adrenal insufficiency due to corticosteroid wit*04/24/2023 Encounter Status:Closed by CHAD GORE [facility]/11/23 [facility] (PSMMMR[facility] IRVIN KLINE ([id number]) 1990 F Date Time Provider Department 09/08/23 [facility]DR[facility] MILLER [facility] During your visit today, we recorded the following information about you: Kendra Miller [facility] 09/08/2023 2:03 PM Signed Irvin called about the IOP. She was referred by her psychiatric ACCOUNTS PAYABLE ASSOCIATE. She needs an evening IOP as she just started a job. She was given [facility] for [facility]. Allergies As of Date: 09/08/2023 Noted Allergy Reaction ROCEPHIN (CEFTRIAXONE SODIUM) 05/12/2016 10 - Anaphylaxis Comments: per pt mother was 3yo Date Reviewed: 08/26/2023 Reviewed by: Silke Echevarria MA - Fully Assessed Reason for Visit: Returning Patient's Call [408] Prescriptions as of 09/08/2023 - fluticasone-salmeterol (ADVAIR, WIXELA) 250-50 mcg/dose inhaler INHALE 1 PUFF INSTRUCTED TWO TIMES A DAY. - busPIRone (BUSPAR) 10 mg tablet Take 1 tablet by mouth three times a day. - citalopram (CELEXA) 10 mg tablet Take 1 tablet by mouth once daily. - lurasidone (LATUDA) 80 mg tablet Take 1 tablet by mouth daily at bedtime. Take with a 350 calorie snack. - lamoTRIgine (LAMICTAL) 100 mg tablet TAKE 1 TABLET BY MOUTH EVERYDAY AT BEDTIME - traZODone (DESYREL) 50 mg tablet Take 1 tablet by mouth daily at bedtime. - budesonide (PULMICORT) 0.5 mg/2 mL nebulizer solution USE 2 ML VIA NEBULIZER EVERY 12 HOURS. INHALE OVER 5-15 MINUTES - blood sugar diagnostic (BLOOD GLUCOSE TEST) test strip Use as instructed to check blood glucose level one time daily - montelukast (SINGULAIR) 10 mg tablet take 1 tablet by mouth every day - predniSONE (DELTASONE) 20 mg tablet 2 a day for 3 days - fluticasone (FLONASE) 50 mcg/actuation nasal spray Use 1 [place] in each nostril once daily. - fluconazole (DIFLUCAN) 100 mg tablet Take 1 tablet by mouth once daily. - albuterol HFA (PROVENTIL HFA, VENTOLIN HFA) 90 mcg/actuation inhaler Inhale 2 Puffs as instructed every 4 hours as needed for wheezing/shortness of breath. - Blood-Glucose Sensor (DEXCOM G6 SENSOR) mallika 1 Each once daily. - Blood-Glucose Transmitter (DEXCOM G6 TRANSMITTER) mallika 1 Each once daily. - metFORMIN ER (GLUCOPHAGE XR) 500 mg 24 hr tablet Take 1 tablet by mouth three times a day with meals. - levalbuterol tartrate HFA 45 mcg/actuation inhaler (Discontinued) Inhale 2 Puffs as instructed every 4 hours as needed for wheezing/shortness of breath. - Blood-Glucose Meter,Continuous (DEXCOM G6 CEMETERY VAULT INSTALLER) misc 1 Each once daily. - Lancets lancets Use as instructed - Blood-Glucose Meter 1 Each once daily. - ergocalciferol 50,000 unit capsule (VITAMIN D2, DRISDOL) Take 1 capsule by mouth one time a week. - ferrous sulfate 325 mg (65 mg iron) tablet Take 1 tablet by mouth two times a day. - albuterol (PROVENTIL) 2.5 mg /3 mL (0.083 %) nebulizer solution Use 3 mL via nebulizer every 4 hours as needed for wheezing/shortness of breath. Inhale by nebulizer over 5-15 minutes. - albuterol HFA (PROAIR HFA) 90 mcg/actuation inhaler Inhale 2 Puffs as instructed every 6 hours as needed for wheezing/shortness of breath. - mepolizumab (NUCALA) 100 mg injection Inject 100 mg subcutaneously every 4 weeks. - Nebulizer and Compressor For Neb Use as directed - FEXOFENADINE HCL (LAQUITA ALLERGY ORAL) Take by mouth once daily. Problem List As Of Date 09/08/2023 Noted Resolved Decreased movements in second trimester [*05/12/2016 08/06/2016 Small for gestational age fetus affecting manag*06/17/2016 08/06/2016 Chronic bilateral low back pain without sciatic*07/12/2016 Herpes simplex of female genitalia [A60.09] 07/18/2016 False labor, antepartum [O47.9] 07/18/2016 08/06/2016 Poor growth affecting management of mothe*08/06/2016 08/09/2016 IUGR (intrauterine growth restriction) affectin*08/06/2016 08/09/2016 Oligohydramnios in third trimester [O41.03X0] 08/08/2016 08/09/2016 S/P section [Z98.891] 08/10/2016 Anxiety [F41.9] 03/20/2015 Asthma [J45.909] 11/30/2014 Depressive disorder [F32.A] 08/12/2022 Asthma, moderate persistent, poorly-controlled *09/26/2022 Pulmonary eosinophilia (HCC) [J82.89] 09/26/2022 Asthma, late onset, severe persistent, uncompli*09/26/2022 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] 03/17/2023 Reactive hypoglycemia [E16.1] 04/11/2023 Obesity, Class III, BMI >= 40 [E66.01] 04/12/2023 Adrenal insufficiency (HCC) [E27.40] 04/13/2023 Adrenal insufficiency due to corticosteroid wit*04/24/2023 Encounter Status:Closed by KENDRA MILLER on 09/08/23 [facility] CNPN Telephone (PULMGR) RAISAIRVIN FAY ([id number]) 1990 F Date Time Provider Department 09/08/23 [facility] During your visit today, we recorded the following information about you: Silke Wolfe 09/08/2023 2:18 PM Signed Faxed a nebulizer set order to [facility] Allergies As of Date: 09/08/2023 Noted Allergy Reaction ROCEPHIN (CEFTRIAXONE SODIUM) 05/12/2016 10 - Anaphylaxis Comments: per pt mother was 3yo Date Reviewed: 08/26/2023 Reviewed by: Silke Echevarria MA - Fully Assessed Reason for Visit: FYI-No Action Needed [265] Prescriptions as of 09/08/2023 - fluticasone-salmeterol (ADVAIR, WIXELA) 250-50 mcg/dose inhaler INHALE 1 PUFF INSTRUCTED TWO TIMES A DAY. - busPIRone (BUSPAR) 10 mg tablet Take 1 tablet by mouth three times a day. - citalopram (CELEXA) 10 mg tablet Take 1 tablet by mouth once daily. - lurasidone (LATUDA) 80 mg tablet Take 1 tablet by mouth daily at bedtime. Take with a 350 calorie snack. - lamoTRIgine (LAMICTAL) 100 mg tablet TAKE 1 TABLET BY MOUTH EVERYDAY AT BEDTIME - traZODone (DESYREL) 50 mg tablet Take 1 tablet by mouth daily at bedtime. - budesonide (PULMICORT) 0.5 mg/2 mL nebulizer solution USE 2 ML VIA NEBULIZER EVERY 12 HOURS. INHALE OVER 5-15 MINUTES - blood sugar diagnostic (BLOOD GLUCOSE TEST) test strip Use as instructed to check blood glucose level one time daily - montelukast (SINGULAIR) 10 mg tablet take 1 tablet by mouth every day - predniSONE (DELTASONE) 20 mg tablet 2 a day for 3 days - fluticasone (FLONASE) 50 mcg/actuation nasal spray Use 1 [place] in each nostril once daily. - fluconazole (DIFLUCAN) 100 mg tablet Take 1 tablet by mouth once daily. - albuterol HFA (PROVENTIL HFA, VENTOLIN HFA) 90 mcg/actuation inhaler Inhale 2 Puffs as instructed every 4 hours as needed for wheezing/shortness of breath. - Blood-Glucose Sensor (DEXCOM G6 SENSOR) mallika 1 Each once daily. - Blood-Glucose Transmitter (DEXCOM G6 TRANSMITTER) mallika 1 Each once daily. - metFORMIN ER (GLUCOPHAGE XR) 500 mg 24 hr tablet Take 1 tablet by mouth three times a day with meals. - levalbuterol tartrate HFA 45 mcg/actuation inhaler (Discontinued) Inhale 2 Puffs as instructed every 4 hours as needed for wheezing/shortness of breath. - Blood-Glucose Meter,Continuous (DEXCOM G6 CEMETERY VAULT INSTALLER) misc 1 Each once daily. - Lancets lancets Use as instructed - Blood-Glucose Meter 1 Each once daily. - ergocalciferol 50,000 unit capsule (VITAMIN D2, DRISDOL) Take 1 capsule by mouth one time a week. - ferrous sulfate 325 mg (65 mg iron) tablet Take 1 tablet by mouth two times a day. - albuterol (PROVENTIL) 2.5 mg /3 mL (0.083 %) nebulizer solution Use 3 mL via nebulizer every 4 hours as needed for wheezing/shortness of breath. Inhale by nebulizer over 5-15 minutes. - albuterol HFA (PROAIR HFA) 90 mcg/actuation inhaler Inhale 2 Puffs as instructed every 6 hours as needed for wheezing/shortness of breath. - mepolizumab (NUCALA) 100 mg injection Inject 100 mg subcutaneously every 4 weeks. - Nebulizer and Compressor For Neb Use as directed - FEXOFENADINE HCL (LAQUITA ALLERGY ORAL) Take by mouth once daily. Problem List As Of Date 09/08/2023 Noted Resolved Decreased movements in second trimester [*05/12/2016 08/06/2016 Small for gestational age fetus affecting manag*06/17/2016 08/06/2016 Chronic bilateral low back pain without sciatic*07/12/2016 Herpes simplex of female genitalia [A60.09] 07/18/2016 False labor, antepartum [O47.9] 07/18/2016 08/06/2016 Poor growth affecting management of mothe*08/06/2016 08/09/2016 IUGR (intrauterine growth restriction) affectin*08/06/2016 08/09/2016 Oligohydramnios in third trimester [O41.03X0] 08/08/2016 08/09/2016 S/P section [Z98.891] 08/10/2016 Anxiety [F41.9] 03/20/2015 Asthma [J45.909] 11/30/2014 Depressive disorder [F32.A] 08/12/2022 Asthma, moderate persistent, poorly-controlled *09/26/2022 Pulmonary eosinophilia (HCC) [J82.89] 09/26/2022 Asthma, late onset, severe persistent, uncompli*09/26/2022 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 Urine Cultureon 07-13-2023 URC Mixed Gram Positive Organisms [facility] Count 11,000-25,000 MIXC Mixed contaminants. Submit a new specimen if indicated. Normal [facility] Comment on above: Performed By: #### M 100.7128 #### [facility] [address] [place], [address] 12 Lead EKGon 07-11-2023 12 Lead EKG [facility] Cardiovascular Services [address] [place] [address] 12 Lead EKG 07/11/23 1552 MR#: [id number] Acct: [id number] Name: IRVIN KLINE Rep #: [id number] : 1990 33 From: Man Castro MD Attending Dr: Status: DEP ER Ordering Dr: Artur Peraza Date: 07/11/23 Location: ED Sex: F C Admitted: Test Reason : DIZZY Blood Pressure : / mmHG Vent. Rate : 072 BPM Atrial Rate : 072 BPM P-R Int : 174 ms QRS Dur : 090 ms QT Int : 410 ms P-R-T Axes : 056 050 043 degrees QTc Int : 448 ms Sinus rhythm with Premature supraventricular complexes Otherwise normal ECG Confirmed by Man Castro ([id number]), food editor WILBUR ROJO ([id number]) on 07/14/2023 8:13:27 AM Referred By: Confirmed By:Man Castro 07/14/23812 Date Man Castro MD CC: CRYPTOGRAPHER-Rachael Peraza; Dr. Radha Riojas MD; Dr. Aleksandar Chung, DO Signed Normal [facility] Basic Metabolic Profile (BMP )on 07-11-2023 BUN/CRE 15.9 RATIO Normal 10-20 [facility] Comment on above: Order Comment: 'TROP ' Serial specimen #1, #2 or #3: 1 Performed By: #### L 501.4020, L500.2500, L100.0100 #### [facility] [address] [place], [address] CA,Total 9.5 mg/dL Normal 8.5-10.1 [facility] Comment on above: Order Comment: 'TROP ' Serial specimen #1, #2 or #3: 1 Performed By: #### L 501.4020, L500.2500, L100.0100 #### [facility] [address] [place], [address] Chloride [Moles/Vol] 112 mmol/L High 98-107 [facility] Comment on above: Order Comment: 'TROP ' Serial specimen #1, #2 or #3: 1 Performed By: #### L 501.4020, L500.2500, L100.0100 #### [facility] [address] [place], [address] CO2 [Moles/Vol] 20.0 mmol/L Low 21.0-32.0 [facility] Comment on above: Order Comment: 'TROP ' Serial specimen #1, #2 or #3: 1 Performed By: #### L 501.4020, L500.2500, L100.0100 #### [facility] [address] [place], [address] Creatinine [Mass/Vol] 0.69 mg/dL Normal 0.55-1.02 [facility] Comment on above: Order Comment: 'TROP ' Serial specimen #1, #2 or #3: 1 Result Comment: The validity of the calculated GFR GFRAA in patients over 70 years has not been determined. Clinical correlation is essential. Performed By: #### L 501.4020, L500.2500, L100.0100 #### [facility] [address] [place], [address] ECRCL 147.11 ml/min Normal [facility] Comment on above: Order Comment: 'TROP ' Serial specimen #1, #2 or #3: 1 Performed By: #### L 501.4020, L500.2500, L100.0100 #### [facility] [address] [place], [address] EST GFR - AA 126 mL/min Normal >60 [facility] Comment on above: Order Comment: 'TROP ' Serial specimen #1, #2 or #3: 1 Result Comment: Afri can Prydeinig GFR Calc Performed By: #### L 501.4020, L500.2500, L100.0100 #### [facility] [address] [place], [address] GAP 8 Normal 5-15 [facility] Comment on above: Order Comment: 'TROP ' Serial specimen #1, #2 or #3: 1 Performed By: #### L 501.4020, L500.2500, L100.0100 #### [facility] [address] [place], [address] GFR/1.73 sq M.predicted among non-blacks MDRD (S/P/Bld) [Vol rate/Area] 104 mL/min/{1.73_m2} Normal >60 [facility] Comment on above: Order Comment: 'TROP ' Serial specimen #1, #2 or #3: 1 Result Comment: Non- GFR Calc Performed By: #### L 501.4020, L500.2500, L100.0100 #### [facility] [address] [place], [address] Glucose [Mass/Vol] 98 mg/dL Normal 74-106 [facility] Comment on above: Order Comment: 'TROP ' Serial specimen #1, #2 or #3: 1 Performed By: #### L 501.4020, L500.2500, L100.0100 #### [facility] [address] [place], [address] Potassium [Moles/Vol] 3.4 mmol/L Low 3.5-5.1 [facility] Comment on above: Order Comment: 'TROP ' Serial specimen #1, #2 or #3: 1 Performed By: #### L 501.4020, L500.2500, L100.0100 #### [facility] [address] [place], [address] Sodium [Moles/Vol] 140 mmol/L Normal 136-145 [facility] Comment on above: Order Comment: 'TROP ' Serial specimen #1, #2 or #3: 1 Performed By: #### L 501.4020, L500.2500, L100.0100 #### [facility] [address] [place], [address] Urea nitrogen [Mass/Vol] 11 mg/dL Normal 7-18 [facility] Comment on above: Order Comment: 'TROP ' Serial specimen #1, #2 or #3: 1 Performed By: #### L 501.4020, L500.2500, L100.0100 #### [facility] [address] [place], [address] CBC W/Diff, Automatedon 05-2 -2023 Absolute Lymph 2.23 X10 3/uL Normal 0.83-4.51 [facility] Comment on above: Performed By: #### L 501.4020, L500.2500, L100.0100 #### [facility] [address] [place], [address] Absolute Neut 10.1 X10 3/uL High 2.0-7.7 [facility] Comment on above: Performed By: #### L 501.4020, L500.2500, L100.0100 #### [facility] [address] [place], [address] Basophils/100 WBC (Bld) 0.3 % Normal 0-1 [facility] Comment on above: Performed By: #### L 501.4020, L500.2500, L100.0100 #### [facility] [address] [place], [address] Eosinophils/100 WBC (Bld) 1.3 % Normal 0-5 [facility] Comment on above: Performed By: #### L 501.4020, L500.2500, L100.0100 #### [facility] [address] [place], [address] Erythrocyte distribution width (RBC) [Ratio] 14.7 % High 11.6-14.6 [facility] Comment on above: Performed By: #### L 501.4020, L500.2500, L100.0100 #### [facility] [address] [place], [address] Hematocrit (Bld) [Volume fraction] 38.1 % Normal 37-47 [facility] Comment on above: Performed By: #### L 501.4020, L500.2500, L100.0100 #### [facility] [address] [place], [address] Hemoglobin (Bld) [Mass/Vol] 11.8 g/dL Low 12.0-15.0 [facility] Comment on above: Performed By: #### L 501.4020, L500.2500, L100.0100 #### [facility] [address] [place], [address] IG% 0.400 Normal 0.0-0.9 [facility] Comment on above: Result Comment: IG% - Immature Granulocytes (promyelocytes, myelocytes and metamyelocytes) > 1% indicates that a LEFT SHIFT is Present. Performed By: #### L 501.4020, L500.2500, L100.0100 #### [facility] [address] [place], [address] Lymphocytes/100 WBC (Bld) 16.7 % Low 19-41 [facility] Comment on above: Performed By: #### L 501.4020, L500.2500, L100.0100 #### [facility] [address] [place], [address] MCH (RBC) [Entitic mass] 26.4 pg Low 27.0-32.0 [facility] Comment on above: Performed By: #### L 501.4020, L500.2500, L100.0100 #### [facility] [address] [place], [address] MCHC (RBC) [Mass/Vol] 31.0 g/dL Low 32-36 [facility] Comment on above: Performed By: #### L 501.4020, L500.2500, L100.0100 #### [facility] [address] [place], [address] MCV (RBC) [Entitic vol] 85.2 fL Normal 81-99 [facility] Comment on above: Performed By: #### L 501.4020, L500.2500, L100.0100 #### [facility] [address] [place], [address] Monocytes/100 WBC (Bld) 6.0 % Normal 0-10 [facility] Comment on above: Performed By: #### L 501.4020, L500.2500, L100.0100 #### [facility] [address] [place], [address] Neutrophils/100 WBC (Bld) 75.3 % High 47-70 [facility] Comment on above: Performed By: #### L 501.4020, L500.2500, L100.0100 #### [facility] [address] [place], [address] Nucleated RBC (Bld) [#/Vol] 0 10*3/uL Normal 0-5 [facility] Comment on above: Performed By: #### L 501.4020, L500.2500, L100.0100 #### [facility] [address] [place], [address] Platelet mean volume (Bld) [Entitic vol] 10.6 fL Normal 6.2-12.0 [facility] Comment on above: Performed By: #### L 501.4020, L500.2500, L100.0100 #### [facility] [address] [place], [address] Platelets (Bld) [#/Vol] 296 10*3/uL Normal 150-450 [facility] Comment on above: Performed By: #### L 501.4020, L500.2500, L100.0100 #### [facility] [address] [place], [address] RBC (Bld) [#/Vol] 4.47 10*6/uL Normal 4.2-5.4 [facility] Comment on above: Performed By: #### L 501.4020, L500.2500, L100.0100 #### [facility] [address] [place], [address] RDW SD 45.5 fl High 35.1-43.9 [facility] Comment on above: Performed By: #### L 501.4020, L500.2500, L100.0100 #### [facility] [address] [place], [address] WBC (Bld) [#/Vol] 13.4 10*3/uL High 4.4-11.0 [facility] Comment on above: Performed By: #### L 501.4020, L500.2500, L100.0100 #### [facility] [address] [place], [address] Chest 1 View (Portable)on Chest 1 View (Portable) [facility] Imaging Services [address] [place] [address] Chest 1 View (Portable) MR#: [id number] Acct: [id number] Name: IRVIN KLINE Rep #: [id number] : 1990 F 33 From: Conner Cardona MD PCP: Dr. Radha Riojas MD Status: DEP ER Study: Chest 1 View (Portable) Date of Exam: 07/11/23 Exam# [id number] Ordering Dr: Artur Peraza CRYPTOGRAPHER-C [id number] EXAM: XR CHEST, 1 VIEW CLINICAL INDICATION: chest pain TECHNIQUE: Frontal view of the chest. COMPARISON: 07/28/2019 FINDINGS: LUNGS AND PLEURAL SPACES: Unremarkable. No consolidation or edema. No pneumothorax. No effusion. HEART: Unremarkable. Cardiac silhouette not enlarged. MEDIASTINUM: Central airways and mediastinal contour are unremarkable. BONES/JOINTS: Unremarkable. No acute fracture. SOFT TISSUES: Unremarkable. RAD/Chest 1 View (Portable) IMPRESSION: No radiographic evidence of acute cardiopulmonary disease. Electronically Signed: Conner Cardona MD at 16:20 EDT , CC: SÁNCHEZ Peraza; Dr. Radha Riojas MD Poultry Raiser: Signed Normal [facility] Emergency Department Summary on 07-11-2023 Emergency Department Summary [facility] Medical Records Department [address] [place] [id number] Emergency Department Summary 07/11/23 MR#: [id number] Acct: [id number] Name: IRVIN KLINE Rep #: [id number] : 1990 33 From: Artur POZO PCP: Dr. Radha Riojas MD Status:DEP ER Location: ED HPI History of Present Illness Chief Complaint: Dizziness Narrative Narrative: Patient is a 33-year-old female with history obesity, anxiety, depression, asthma who presents to the emergency department for feeling of lightheadedness, near syncope. Patient states she did not drink a lot of water today she is currently camping, she has been camping since last evening until Friday which is 3 days. Patient states that she got this morning, she did eat breakfast as well as lunch, she was playing with the kids outside when she felt lightheaded, and went back to the campground. Patient states that she is asymptomatic at this time, she was concerned because she also gets low blood sugar. However patient is asymptomatic at this time. Denies any chest pain, fever chills nausea or vomiting. [facility] Medical History (Updated 07/11/23 @ 17:31 by SÁNCHEZ Martinez) Reactive hypoglycemia Asthma Home Medications ???Medication ???Instructions ???Recorded ???Last Taken ???Type albuterol sulfate 90 mcg/actuation 2 puff IH Q4H PRN Asthma 02/25/19 Unknown History aerosol inhaler citalopram 40 mg tablet 40 mg PO DAILY 02/25/19 Unknown History albuterol sulfate 90 mcg/actuation 2 inh inhalation Q4H PRN shortness 07/11/23 Unknown History aerosol inhaler (ProAir HFA) of breath or wheezing budesonide 0.5 mg/2 mL suspension 0.5 mg inhalation Q12.TCU 07/11/23 Unknown History for nebulization dextroamphetamine-amph etamine ER 30 mg PO DAILY 07/11/23 Unknown History 30 mg 24hr capsule,extend release fexofenadine 180 mg tablet 180 mg PO DAILY 07/11/23 Unknown History (Laquita Allergy) fluticasone 250 mcg-salmeterol 50 1 inh inhalation BID 07/11/23 Unknown History mcg/dose blistr powdr for inhalation (Wixela Inhub) mepolizumab 100 mg/mL subcutaneous 100 mg subcut QMONTH 07/11/23 Unknown History auto-injector (Nucala) metformin 500 mg tablet,extended 500 mg PO TID 07/11/23 Unknown History release 24 hr montelukast 10 mg tablet 10 mg PO DAILY 07/11/23 Unknown History nitrofurantoin 100 mg PO Q12H 5 days #10 caps 07/11/23 Unknown Rx monohydrate/macrocryst als 100 mg capsule (Macrobid) Allergy/AdvReac Type Severity Reaction Status Date / Time sulfamethoxazole (From Allergy Mild UNKNOWN Verified 07/11/23 15:08 Bactrim) trimethoprim (From Bactrim) Allergy Mild UNKNOWN Verified 07/11/23 15:08 ceftriaxone (From Rocephin) Allergy Hives Verified 07/11/23 15:08 Surgical History History of section History of cholecystectomy Social History (Updated 04/20/19 @ 12:33 by Jayce MARIE, PA) Smoking Status: Never smoker alcohol intake: never ROS ROS ED ROS Narrative Constitutional: Negative for fever, chills, weight loss, weakness Eyes: Negative for vision loss, vision change, double vision ENT: Negative for any sore throat, ear pain, congestion Cardiovascular: Negative for any chest pain, tightness, palpitations Respiratory: Negative for any cough, sputum production, hemoptysis, dyspnea, dyspnea on exertion, orthopnea Gastrointestinal: Negative for any abdominal pain, nausea, vomiting, diarrhea, constipation, blood in stool, blood in vomit : Negative for any urinary frequency, dysuria, retention, blood in urine Muscle skeletal: Negative for any neck pain, back pain Neurological: Negative for any headache. Positive feeling of dizziness, near syncope Skin: Negative for any rashes, itching, abrasions, lacerations Psychiatric: Negative for any depression, anxiety, stress, suicidal ideation, homicidal ideation Hematologic: Negative for any excessive bruising, easy bleeding EXAM Physical Exam Narrative Exam Narrative: Vital signs reviewed. HEET: Head normocephalic atraumatic, TMs clear bilaterally. Posterior pharynx is clear, moist mucous membranes. Nares clear bilaterally. Neck: Supple with no lymphadenopathy or tenderness. No signs of meningismus. Cardiac: Regular rate and rhythm no murmurs gallops or rubs, equal peripheral pulses bilaterally. On the monitor, patient does show some PVCs. Respiratory: Lungs clear to auscultation bilaterally. No chest tenderness. Abdomen: Soft, nontender, nondistended. No abdominal bruit or pulsatile masses. No hepatosplenomegaly Extremities: No peripheral edema, no signs of gross trauma or deformity. Active full range of motion of all extremities. Neuro: Cranial nerves II through XII intact, no focal neurological deficits. Skin: Clean dry and in (more content not included)... Normal [facility] L501.4020on 07-11-2023 TROPONIN-I HS < 3 Low 3.0-54.0 [facility] Comment on above: Order Comment: 'TROP ' Serial specimen #1, #2 or #3: 1 Result Comment: Plea se Note: New Test Units and Gender Specific Reference Ranges. For more information see Policy Stat Procedure [place] High Sensitivity Troponin (TNIH) and attachments. Performed By: #### L 501.4020, L500.2500, L100.0100 #### [facility] [address] [place], [address] ,Urineon 07-11-2023 Beta HCG ( test) Ql (U) Negative Normal [facility] Comment on above: Order Comment: CLEAN CATCH Result Comment: Very dilute urine specimens, as indicated by a low specific gravity, may not contain agency service representative levels of hCG. If is still suspected, a first morning urine specimen should be collected 48 hours later and tested. Performed By: #### L 400.0001, L400.7600 #### [facility] [address] [place], [address] Urinalysis, Completeon 07-10 EPI,SQUAMOUS 0-5 SEEN Normal 5-10 [facility] Comment on above: Order Comment: CLEAN CATCH Performed By: #### L 400.0001, L400.7600 #### [facility] [address] [place], [address] BACTERIA 2+ /hpf Normal None Seen [facility] Comment on above: Order Comment: CLEAN CATCH Performed By: #### L 400.0001, L400.7600 #### [facility] [address] [place], [address] RBC 50-100 SEEN Normal 0-5 [facility] Comment on above: Order Comment: CLEAN CATCH Performed By: #### L 400.0001, L400.7600 #### [facility] [address] [place], [address] WBC 10-25 SEEN Normal 0-5 [facility] Comment on above: Order Comment: CLEAN CATCH Performed By: #### L 400.0001, L400.7600 #### [facility] [address] [place], [address] Mucus Ql (Urine sed) [address] [facility] Comment on above: Order Comment: CLEAN CATCH Performed By: #### L 400.0001, L400.7600 #### [facility] [address] [place], [address] GLUCOSE, BLOOD (POC)on 04-28 Glucose [Mass/Vol] 77 mg/dL 74 - 99 mg/dL [facility] LABORATORYOrdered By: Donny Shook on 04-11-2023 Blood Glucose Testing Reason Routine (04/11/23 10:21 AM) [facility] Glucose [Mass/Vol] 105 mg/dL Normal 70 - 110 mg/dL [facility] ED NOTEon 01-03-2023 ED NOTE HNO ID: [id number] Author: Adele Patterson (Rn) (Hist), RN Service: ? Author Type: Registered Nurse Type: ED Notes Filed: 01/03/2023 6:31 PM Note Text: Discharge instructions d/w pt at bedside. Stated understanding with no further questions for this nurse. Encouraged f/u with PCP and referring doctors given. Stated understanding. Prescription(S) were given X1. [facility] ED NOTE HNO ID: [id number] Author: Mariana Yee, POWER Service: ? Author Type: Registered Nurse Type: ED Notes Filed: 01/03/2023 4:25 PM Note Text: Pt to ED with c/o insect bite to left arm, +redness, itching and pain, worsening through the day [facility] ED PROV NOTEon 01-03-2023 ED PROV NOTE HNO ID: [id number] Author: Tang Holland PA-C Service: ? Author Type: Physician Biological Plant Operator Type: ED Provider Notes Filed: 01/03/2023 5:33 PM Note Text: ED Provider Note Patient Name: Irvin Kline : 1990 SERVICE DATE: 01/03/23 History Patient presents with: Insect Bite 32-year-old female presents for wound evaluation, patient woke up this morning noticed an insect bite/redness to the left upper arm, she went to her primary care doctor who put her on steroids and Kenalog cream. States that it is getting worse. She denies any fever. Denies any recent travel or camping, denies any known tick bite, denies any nausea or vomiting, denies neck pain or stiffness, denies chest pain. PAST MEDICAL HISTORY Diagnosis Date Anemia Asthma No past surgical history on file. No family history on file. Social History Tobacco Use Smoking status: Never Smokeless tobacco: Never Vaping Use Vaping Use: Never used Substance and Sexual Activity Alcohol use: No Drug use: No Sexual activity: Not on file ALLERGIES Allergen Reactions Rocephin [Ceftriaxo* Anaphylaxis per pt mother was 3yo Review of Systems Constitutional: Negative for chills and fever. HENT: Negative for drooling, ear discharge, hearing loss, mouth sores, postnasal drip, sneezing and voice change. Eyes: Negative for photophobia and visual disturbance. Respiratory: Negative for chest tightness, shortness of breath and wheezing. Cardiovascular: Negative for chest pain and palpitations. Gastrointestinal: Negative for abdominal distention, abdominal pain, anal bleeding, blood in stool, constipation, diarrhea, nausea, rectal pain and vomiting. Genitourinary: Negative for dysuria, flank pain, hematuria, pelvic pain, vaginal bleeding and vaginal discharge. Musculoskeletal: Negative for arthralgias, neck pain and neck stiffness. Skin: Negative for color change. Neurological: Negative for dizziness, numbness and headaches. Psychiatric/Behavioral : Negative for agitation and confusion. The patient is not hyperactive. Physical Exam Vitals [01/03/23 1623] BP Pulse Temp Temp src Resp SpO2 Weight Height 120/57 72 36.7 ?C (98 ?F) Temporal 16 100 % 125.6 kg (277 lb) -- Physical Exam Constitutional: Appearance: She is well-developed. HENT: Head: Normocephalic and atraumatic. Nose: Nose normal. Eyes: Conjunctiva/sclera: Conjunctivae normal. Cardiovascular: Rate and Rhythm: Normal rate and regular rhythm. Pulmonary: Effort: Pulmonary effort is normal. No respiratory distress. Breath sounds: Normal breath sounds. No wheezing. Abdominal: General: Bowel sounds are normal. Palpations: Abdomen is soft. Musculoskeletal: General: Tenderness present. Normal range of motion. Left upper arm: Tenderness present. Arms: Cervical back: Normal range of motion and neck supple. Skin: General: Skin is warm and dry. Neurological: Mental Status: She is alert and oriented to person, place, and time. Psychiatric: Behavior: Behavior normal. Diagnostic Testing ED Labs Ordered and Reviewed - No data to display Procedures ED Course / Clinical Impression Clinical Impressions as of 01/03/23 1731 Visit for wound check Insect bite of left upper arm, initial encounter Doxycycline Rest Home meds See pcp Return to ed if sx worsen MDM / Disposition / Plan The medical record is reviewed.Triage note is reviewed and incorporated.The nursing note is reviewed and consistent with patient's history and physical exam findings. The vital signs were reviewed and the vital signs are : BP 120/57 Pulse 72 Temp 36.7 ?C (98 ?F) (Temporal) Resp 16 Wt 125.6 kg (277 lb) LMP 12/27/2022 (Exact Date) SpO2 100% BMI 47.55 kg/m? ASSESSMENT AND PLAN: This is a 32 year old female who presents to the ED with a chief complaint of insect bite, wound check whose symptoms are controlled in the ED with doxycycline. . Patient presents for wound evaluation, she has an area over the left upper arm that is concerning for reaction to an insect bite, there is about a 3 x 3 inch redness around this left upper arm with no red streaking, no abscess, no drainage, patient denies any concern from Lyme, I do not see any signs of an abscess therefore I do not think IANDD is necessary, she is penicillin allergic, will start the patient on doxycycline, she will follow closely PCP, DISCHARGE INSTRUCTIONS The patient has remained hemodynamically stable throughout the entire ED visit and is without objective evidence or laboratory findings for acute process requiring urgent intervention or hospitalization. The patient and/or family had all the tests and diagnosis explained to them and were given both verbal and written discharge instructions. I answered the patient's question as well as family to the best of my ability about the patient's symptoms. The patient is stable for discharge, and pat (more content not included)... Normal [facility] A fumigatus IgE Qnon 023 A. fumigatus IgE Qn (S) <0.35 Normal <0.35 [facility] Comment on above: Order Comment: Jordan perry Type: BLOOD SPECIMEN Ordering Facility: [facility] Address: [address] [place] [address] Performed By: #### 1 9113-0, 6025-1 #### [facility] CLIA [id number] [facility] [id number] [place] [address] [place] A. fumigatus IgE Qn (S)on A. fumigatus IgE RAST class (S) Class 0 Normal Class 0 [facility] Comment on above: Order Comment: Jordan perry Type: BLOOD SPECIMEN Ordering Facility: [facility] Address: [address] [place] [address] Performed By: #### 1 9113-0, 6025-1 #### [facility] CLIA [id number] [facility] [place] [address] [place] [facility] [place] GRPon 10-17 A. alternata IgE Qn (S) 1.75 kU/l High <0.35 [facility] Comment on above: Order Comment: Speci men Type: BLOOD SPECIMEN Ordering Facility: [facility] Address: [address] [place] [address] Performed By: #### T ARY, MICRO #### [facility] CLIA [id number] [address] [place] [address] OF [place] A. alternata IgE RAST class (S) Class 2 Abnormal Class 0 [facility] Comment on above: Order Comment: Speci men Type: BLOOD SPECIMEN Ordering Facility: [facility] Address: [address] [place] [address] Performed By: #### T ARY, MICRO #### [facility] CLIA [id number] [address] [place] [address] [place] Prydeinig house dust mite IgE Qn (S) <0.35 Normal <0.35 [facility] Comment on above: Order Comment: Speci men Type: BLOOD SPECIMEN Ordering Facility: [facility] Address: [address] [place] [address] Performed By: #### T ARY, MICRO #### [facility] CLIA [id number] [address] [place] [address] [place] Prydeinig house dust mite IgE RAST class (S) Class 0 Normal Class 0 [facility] Comment on above: Order Comment: Speci men Type: BLOOD SPECIMEN Ordering Facility: [facility] Address: [address] [place] [address] Performed By: #### T ARY, MICRO #### [facility] CLIA [id number] [address] [place] [address] [place] C. herbarum IgE Qn (S) <0.35 Normal <0.35 [facility] Comment on above: Order Comment: Speci men Type: BLOOD SPECIMEN Ordering Facility: [facility] Address: [address] [address] Performed By: #### T ARY, MICRO #### [facility] CLIA [id number] [address] OF [place] C. herbarum IgE RAST class (S) Class 0 Normal Class 0 [facility] Comment on above: Order Comment: Speci men Type: BLOOD SPECIMEN Ordering Facility: [facility] Address: [address] [address] Performed By: #### T ARY, MICRO #### [facility] CLIA [id number] [address] STATES OF [place] Cat dander IgE Qn (S) 14.90 kU/l High <0.35 [facility] Comment on above: Order Comment: Speci men Type: BLOOD SPECIMEN Ordering Facility: [facility] Address: [address] [address] Performed By: #### T ARY, MICRO #### [facility] CLIA [id number] [address] OF [place] Cat dander IgE RAST class (S) Class 3 Abnormal Class 0 [facility] Comment on above: Order Comment: Speci men Type: BLOOD SPECIMEN Ordering Facility: [facility] Address: [address] Performed By: #### T ARY, MICRO #### [facility] CLIA [id number] [address] [place] [address] [place] Common Ragweed IgE Qn (S) <0.35 Normal <0.35 [facility] Comment on above: Order Comment: Speci men Type: BLOOD SPECIMEN Ordering Facility: [facility] Address: [address] Performed By: #### T ARY, MICRO #### [facility] CLIA [id number] [address] [place] [address] [place] Common Ragweed IgE RAST class (S) Class 0 Normal Class 0 [facility] Comment on above: Order Comment: Speci men Type: BLOOD SPECIMEN Ordering Facility: [facility] Address: [address] [place] [address] Performed By: #### T ARY, MICRO #### [facility] CLIA [id number] [address] [place] [address] [place] Dog dander IgE Qn (S) 1.94 kU/l High <0.35 [facility] Comment on above: Order Comment: Speci men Type: BLOOD SPECIMEN Ordering Facility: [facility] Address: [address] [place] [address] Performed By: #### T ARY, MICRO #### [facility] CLIA [id number] [address] STATES OF [place] Dog dander IgE RAST class (S) Class 2 Abnormal Class 0 [facility] Comment on above: Order Comment: Speci men Type: BLOOD SPECIMEN Ordering Facility: [facility] Address: [address] [place] [address] Performed By: #### T ARY, MICRO #### [facility] CLIA [id number] [address] OF [place] IgE Qn (S) <0.35 Normal <0.35 [facility] Comment on above: Order Comment: Speci men Type: BLOOD SPECIMEN Ordering Facility: [facility] Address: [address] [address] Performed By: #### T ARY, MICRO #### [facility] CLIA [id number] [address] OF [place] IgE RAST class (S) Class 0 Normal Class 0 [facility] Comment on above: Order Comment: Speci men Type: BLOOD SPECIMEN Ordering Facility: [facility] Address: [address] Performed By: #### T ARY, MICRO #### [facility] CLIA [id number] [address] OF [place] [facility] [place] IgE Qn (S) <0.35 Normal <0.35 [facility] Comment on above: Order Comment: Speci men Type: BLOOD SPECIMEN Ordering Facility: [facility] Address: [address] [address] Performed By: #### T ARY, MICRO #### [facility] CLIA [id number] [address] OF [place] [facility] [place] IgE RAST class (S) Class 0 Normal Class 0 [facility] Comment on above: Order Comment: Speci men Type: BLOOD SPECIMEN Ordering Facility: [facility] Address: [address] [place], [place] [address] Performed By: #### T ARY, MICRO #### [facility] CLIA [id number] [address] OF [place] IgE Qn (S) <0.35 Normal <0.35 [facility] Comment on above: Order Comment: Speci men Type: BLOOD SPECIMEN Ordering Facility: [facility] Address: [address] Performed By: #### T ARY, MICRO #### [facility] CLIA [id number] [address] OF [place] IgE RAST class (S) Class 0 Normal Class 0 [facility] Comment on above: Order Comment: Speci men Type: BLOOD SPECIMEN Ordering Facility: [facility] Address: [address] Performed By: #### T ARY, MICRO #### [facility] CLIA [id number] [address] STATES [place] IgE Qn (S) <0.35 Normal <0.35 [facility] Comment on above: Order Comment: Speci men Type: BLOOD SPECIMEN Ordering Facility: [facility] Address: [address] [place] [address] Performed By: #### T ARY, MICRO #### [facility] CLIA [id number] [facility] [place] [address] [place] IgE RAST class (S) Class 0 Normal Class 0 [facility] Comment on above: Order Comment: Speci men Type: BLOOD SPECIMEN Ordering Facility: [facility] Address: [address] [place] [address] Performed By: #### T ARY, MICRO #### [facility] CLIA [id number] [address] [place] [address] [place] IgE SerPl-aCncon 10-17-2022 IgE Qn 208.0 kU/l High <114.0 [facility] Comment on above: Order Comment: Speci men Type: BLOOD SPECIMEN Ordering Facility: [facility] Address: [address] [place] [address] Performed By: #### 1 9113-0, 6025-1 #### [facility] CLIA [id number] [address] [place] [address] [place] No Panel Informationon 09-26 [facility] ALLIED HEALTHon 06-16-2022 ALLIED HEALTH HNO ID: [id number] Author: RAZIA Sparks Service: Radiology Author Type: Technologist Type: Allied Health Filed: 06/16/2022 9:12 AM Note Text: Radiology Service Progress Note PATIENT NAME: Irvin Kline DATE OF SERVICE: June 16, 2022 TIME: 9:12 AM PATIENT IDENTITY VERIFICATION COMPLETED USING TWO (2) IDENTIFIERS: Name and Date of confirmed by identification band. FALL SCREENING: Has the patient had 2 falls in the last year or 1 fall with injury or currently using an Ambulatory Assistive Device (Walker, Cane, Wheelchair, Crutches, etc.)? Emergency Room Patient: Screened in ED PATIENT GENDER DATA: Female. status: : No status: NO. PATIENT RELEVANT IMPLANT DATA REVIEWED: Not Applicable RADIOLOGY DEPARTMENT: General X-ray: Exam(s) Completed: Chest X-Ray PERIPHERAL IV DATA: Not applicable SIGNED BY: RAZIA Sparks June 16, 2022 9:12 AM Normal [facility] Basic metabolic 2000 panelon 06-16-2022 Anion gap [Moles/Vol] 10 mmol/L Normal 9-18 [facility] Comment on above: Order Comment: Speci men Type: BLOOD SPECIMEN Ordering Facility: [facility] Address: [address] [place] [address] Performed By: #### T ARY, MICRO #### [facility] CLIA [id number] [address] [place] [address] [place] Calcium [Mass/Vol] 9.2 mg/dL Normal 8.5-10.2 [facility] Comment on above: Order Comment: Speci men Type: BLOOD SPECIMEN Ordering Facility: [facility] Address: [address] [place], [place] [address] Performed By: #### T ARY, MICRO #### [facility] CLIA [id number] [address] [place] [address] [place] Chloride [Moles/Vol] 106 mmol/L High 97-105 [facility] Comment on above: Order Comment: Speci men Type: BLOOD SPECIMEN Ordering Facility: [facility] Address: [address] Performed By: #### T ARY, MICRO #### [facility] CLIA [id number] [address] [place] [address] [place] CO2 [Moles/Vol] 27 mmol/L Normal 22-30 [facility] Comment on above: Order Comment: Speci men Type: BLOOD SPECIMEN Ordering Facility: [facility] Address: [address] Performed By: #### T ARY, MICRO #### [facility] CLIA [id number] [address] [place] [address] [place] [facility] Creatinine [Mass/Vol] 0.63 mg/dL Normal 0.58-0.96 [facility] Comment on above: Order Comment: Jordan perry Type: BLOOD SPECIMEN Ordering Facility: [facility] Address: [address] [address] Performed By: #### T ARY, MICRO #### [facility] CLIA [id number] [address] [place] [address] ESTIMATED GLOMERULAR FILTRATION RATE 121 mL/min/1.73m??? Normal >=60 [facility] Comment on above: Order Comment: Jordan perry Type: BLOOD SPECIMEN Ordering Facility: [facility] Address: [address] [place] [address] Result Comment: Victoria mated Glomerular Filtration Rate (eGFR) is calculated using the 2020 CKD-EPI creatinine equation. This equation utilizes serum creatinine, sex, and age as parameters. The creatinine assay has traceable calibration to isotope dilution-mass spectrometry. Refer to KDIGO guidelines for clinical interpretation. In patients with unstable renal function, e.g. those with acute kidney injury, the eGFR may not accurately reflect actual GFR. Performed By: #### T ARY, MICRO #### [facility] CLIA [id number] [address] [place] [address] [place] Glucose [Mass/Vol] 85 mg/dL Normal 74-99 [facility] Comment on above: Order Comment: Jordan perry Type: BLOOD SPECIMEN Ordering Facility: [facility] Address: [address] [place] [address] Result Comment: The [place] Diabetes Association (ADA) provides guidance for cutoff values for fasting glucose and random glucose. The ADA defines fasting as no caloric intake for at least 8 hours. Fasting plasma glucose results between 100 to 125 mg/dL indicate increased risk for diabetes (prediabetes). Fasting plasma glucose results greater than or equal to 126 mg/dL meet the criteria for diagnosis of diabetes. In the absence of unequivocal hyperglycemia, results should be confirmed by repeat testing. In a patient with classic symptoms of hyperglycemia or hyperglycemic crisis, random plasma glucose results greater than or equal to 200 mg/dL meet the criteria for diagnosis of diabetes. Reference: Standards of Medical Care in Diabetes 2016, [place] Diabetes Association. Diabetes Care. 2016.39(Suppl 1). Performed By: #### T ARY, MICRO #### [facility] CLIA [id number] [address] [place] [address] [place] Potassium [Moles/Vol] 3.5 mmol/L Low 3.7-5.1 [facility] Comment on above: Order Comment: Speci men Type: BLOOD SPECIMEN Ordering Facility: [facility] Address: [address] [address] Performed By: #### T ARY, MICRO #### [facility] CLIA [id number] [address] [place] [address] [place] Sodium [Moles/Vol] 143 mmol/L Normal 136-144 [facility] Comment on above: Order Comment: Speci men Type: BLOOD SPECIMEN Ordering Facility: [facility] Address: [address] Performed By: #### T ARY, MICRO #### [facility] CLIA [id number] [address] [place] [address] [place] Urea nitrogen [Mass/Vol] 8 mg/dL Normal 7-21 [facility] Comment on above: Order Comment: Speci men Type: BLOOD SPECIMEN Ordering Facility: [facility] Address: [address] Performed By: #### T ARY, MICRO #### [facility] CLIA [id number] [address] [place] [address] [place] CBC W Auto Diff [place] 2022 Hemoglobin (Bld) [Mass/Vol] 11.9 g/dL Normal 11.5-15.5 [facility] Comment on above: Order Comment: Speci men Type: BLOOD SPECIMEN Ordering Facility: [facility] Address: [address] [address] Performed By: #### 5 7021-8 #### [facility] CLIA [id number] [address] Order Comment: Speci men Type: VENOUS BLOOD SPECIMEN Ordering Facility: [facility] Address: [address] [address] Performed By: #### 2 4344-4 #### [facility] CLIA [id number] [facility]ERAP[facility] [address] [id number] CBC W Auto Differential pane l (Bld)on 06-16-2022 Basophils (Bld) [#/Vol] 0.04 10*3/uL Normal <0.11 [facility] Comment on above: Order Comment: Speci men Type: BLOOD SPECIMEN Ordering Facility: [facility] Address: [address] [address] Performed By: #### 5 7021-8 #### [facility] CLIA [id number] [address] Basophils/100 WBC (Bld) 0.4 % Normal [facility] Comment on above: Order Comment: Speci men Type: BLOOD SPECIMEN Ordering Facility: [facility] Address: [address] [address] Performed By: #### 5 7021-8 #### [facility] CLIA [id number] [address] Differential cell count method Nom (Bld) Auto Normal [facility] Comment on above: Order Comment: Speci men Type: BLOOD SPECIMEN Ordering Facility: [facility] Address: [address] [address] Performed By: #### 5 7021-8 #### [facility] CLIA [id number] [address] [place] Eosinophils (Bld) [#/Vol] 1.54 10*3/uL High <0.46 [facility] Comment on above: Order Comment: Speci men Type: BLOOD SPECIMEN Ordering Facility: [facility] Address: [address] [address] Performed By: #### 5 7021-8 #### [facility] CLIA [id number] [address] Eosinophils/100 WBC (Bld) 15.2 % Normal [facility] Comment on above: Order Comment: Speci men Type: BLOOD SPECIMEN Ordering Facility: [facility] Address: [address] [place] [address] Performed By: #### 5 7021-8 #### [facility] CLIA [id number] [address] Erythrocyte distribution width (RBC) [Ratio] 14.5 % Normal 11.5-15.0 [facility] Comment on above: Order Comment: Speci men Type: BLOOD SPECIMEN Ordering Facility: [facility] Address: [address] [address] Performed By: #### 5 7021-8 #### [facility] CLIA [id number] [address] Hematocrit (Bld) [Volume fraction] 38.8 % Normal 36.0-46.0 [facility] Comment on above: Order Comment: Speci men Type: BLOOD SPECIMEN Ordering Facility: [facility] Address: [address] [address] Performed By: #### 5 7021-8 #### [facility] CLIA [id number] [address] Immature granulocytes (Bld) [#/Vol] 0.04 10*3/uL Normal <0.10 [facility] Comment on above: Order Comment: Speci men Type: BLOOD SPECIMEN Ordering Facility: [facility] Address: [address] [address] Performed By: #### 5 7021-8 #### [facility] CLIA [id number] [address] Immature granulocytes/100 WBC (Bld) 0.4 % Normal [facility] Comment on above: Order Comment: Speci men Type: BLOOD SPECIMEN Ordering Facility: [facility] Address: [address] [address] Performed By: #### 5 7021-8 #### [facility] CLIA [id number] [address] [place] Lymphocytes (Bld) [#/Vol] 2.48 10*3/uL Normal 1.00-4.00 [facility] Comment on above: Order Comment: Speci men Type: BLOOD SPECIMEN Ordering Facility: [facility] Address: [address] [place] [address] Performed By: #### 5 7021-8 #### [facility] CLIA [id number] [address] Lymphocytes/100 WBC (Bld) 24.6 % Normal [facility] Comment on above: Order Comment: Speci men Type: BLOOD SPECIMEN Ordering Facility: [facility] Address: [address] [place] [address] Performed By: #### 5 7021-8 #### [facility] CLIA [id number] [address] MCH (RBC) [Entitic mass] 26.6 pg Normal 26.0-34.0 [facility] Comment on above: Order Comment: Speci men Type: BLOOD SPECIMEN Ordering Facility: [facility] Address: [address] [place] [address] Performed By: #### 5 7021-8 #### [facility] CLIA [id number] [address] MCHC (RBC) [Mass/Vol] 30.7 g/dL Normal 30.5-36.0 [facility] Comment on above: Order Comment: Speci men Type: BLOOD SPECIMEN Ordering Facility: [facility] Address: [address] [address] Performed By: #### 5 7021-8 #### [facility] CLIA [id number] [address] MCV (RBC) [Entitic vol] 86.6 fL Normal 80.0-100.0 [facility] Comment on above: Order Comment: Speci men Type: BLOOD SPECIMEN Ordering Facility: [facility] Address: [address] [address] Performed By: #### 5 7021-8 #### [facility] CLIA [id number] [address] [place] [address] [place] Monocytes (Bld) [#/Vol] 0.39 10*3/uL Normal <0.87 [facility] Comment on above: Order Comment: Speci men Type: BLOOD SPECIMEN Ordering Facility: [facility] Address: [address] [address] Performed By: #### 5 7021-8 #### [facility] CLIA [id number] [address] [place] Monocytes/100 WBC (Bld) 3.9 % Normal [facility] Comment on above: Order Comment: Speci men Type: BLOOD SPECIMEN Ordering Facility: [facility] Address: [address] [place] [address] Performed By: #### 5 7021-8 #### [facility] CLIA [id number] [address] [place] Neutrophils (Bld) [#/Vol] 5.61 10*3/uL Normal 1.45-7.50 [facility] Comment on above: Order Comment: Speci men Type: BLOOD SPECIMEN Ordering Facility: [facility] Address: [address] [address] Performed By: #### 5 7021-8 #### [facility] CLIA [id number] [address] Neutrophils/100 WBC (Bld) 55.5 % Normal [facility] Comment on above: Order Comment: Speci men Type: BLOOD SPECIMEN Ordering Facility: [facility] Address: [address] [address] Performed By: #### 5 7021-8 #### [facility] CLIA [id number] [address] [place] [address] [place] Nucleated RBC (Bld) [#/Vol] 10*3/uL Normal <0.01 [facility] Comment on above: Order Comment: Speci men Type: BLOOD SPECIMEN Ordering Facility: [facility] Address: [address] [address] Performed By: #### 5 7021-8 #### [facility] CLIA [id number] [address] [place] [address] [place] Nucleated RBC/100 WBC (Bld) [Ratio] 0.0 /100 WBC Normal [facility] Comment on above: Order Comment: Speci men Type: BLOOD SPECIMEN Ordering Facility: [facility] Address: [address] [address] Performed By: #### 5 7021-8 #### [facility] CLIA [id number] [address] [place] [address] [place] Platelet mean volume (Bld) [Entitic vol] 10.0 fL Normal 9.0-12.7 [facility] Comment on above: Order Comment: Speci men Type: BLOOD SPECIMEN Ordering Facility: [facility] Address: [address] [place] [address] Performed By: #### 5 7021-8 #### [facility] CLIA [id number] [address] [place] [address] [place] Platelets (Bld) [#/Vol] 271 10*3/uL Normal 150-400 [facility] Comment on above: Order Comment: Speci men Type: BLOOD SPECIMEN Ordering Facility: [facility] Address: [address] [address] Performed By: #### 5 7021-8 #### [facility] CLIA [id number] [address] [place] [address] [place] RBC (Bld) [#/Vol] 4.48 10*6/uL Normal 3.90-5.20 [facility] Comment on above: Order Comment: Speci men Type: BLOOD SPECIMEN Ordering Facility: [facility] Address: [address] [address] Performed By: #### 5 7021-8 #### [facility] CLIA [id number] [address] OF [place] WBC (Bld) [#/Vol] 10.10 10*3/uL Normal 3.70-11.00 [facility] Comment on above: Order Comment: Speci men Type: BLOOD SPECIMEN Ordering Facility: [facility] Address: [address] [address] Performed By: #### 5 7021-8 #### [facility] CLIA [id number] [address] [place] [address] [facility] ED NOTEon 06-16-2022 ED NOTE HNO ID: [id number] Author: Iglesia Fritz RN Service: ? Author Type: Registered Nurse Type: ED Notes Filed: 06/16/2022 11:55 AM Note Text: The patient verbalizes understanding of discharge instructions. No additional questions or concerns at this time. Patient Vital signs stable, no acute distress noted. Patient ambulatory out of ED. Prescription(S) x 1 given. Normal [facility] ED PROV NOTEon 06-16-2022 ED PROV NOTE HNO ID: [id number] Author: Artur Meng MD Service: Emergency Medicine Author Type: Physician Type: ED Provider Notes Filed: 06/16/2022 11:28 AM Note Text: ED Provider Note Patient Name: Irvin Kline : 1990 SERVICE DATE: 06/16/22 History Patient presents with: Shortness of Breath: Asthma exacerbation, onset secondary to weather change. Reports taking an albuterol nebulizer treatment at 0630 this morning with minimal relief. Sent by Urgent Care. HPI PAST MEDICAL HISTORY Diagnosis Date Anemia Asthma History reviewed. No pertinent surgical history. No family history on file. Social History Tobacco Use Smoking status: Never Smokeless tobacco: Never Substance and Sexual Activity Alcohol use: No Drug use: No Sexual activity: Not on file ALLERGIES Allergen Reactions Rocephin [Ceftriaxo* Anaphylaxis per pt mother was 3yo Review of Systems Physical Exam Vitals [06/16/22 0853] BP Pulse Temp Temp src Resp SpO2 Weight Height 99/54 69 36.7 ?C (98.1 ?F) Oral (!) 28 (!) 86 % (!) 137.9 kg (304 lb 0.2 oz) 1.626 m (5' 4) Physical Exam Diagnostic Testing ED Labs Ordered and Reviewed BASIC METABOLIC PNL - Abnormal; Notable for the following components: Result Value Ref Range Potassium 3.5 (*) 3.7 - 5.1 mmol/L Chloride 106 (*) 97 - 105 mmol/L All other components within normal limits CBC + DIFF - Abnormal; Notable for the following components: Abs Eosin 1.54 (*) <0.46 k/uL All other components within normal limits VENOUS BLOOD GASES - Abnormal; Notable for the following components: pO2, Venous <31 (*) 35 - 45 mmHg Oxyhemoglobin, Venous 41 (*) 60 - 85 % Potassium, Whole Blood 3.4 (*) 3.5 - 5.0 mmol/L All other components within normal limits HCG URINE - ED(POC) - Normal MAGNESIUM BLD - Normal EXPEDITED COVID, FLU A/B + RSV - Normal Narrative: This test has been authorized by FDA under an Emergency Use Authorization (EUA). Procedures ED Course / Clinical Impression ED Course as of 06/16/22 1128 Artur Julien tobi's Documentation Sun Jun 16, 2022 1118 Patient is feeling better. Patient speaking in full sensible sentences. Her room air pulse ox is 95%. She still has some expiratory wheezes. Her lab work is unremarkable other than a potassium of 3.5 and is probably related to the albuterol. 1119 Chest x-ray shows no acute disease. 1119 [place] decision was made with the patient. I offered to place the patient in for observation status. Patient states that she feels better and she would like to go home. She will be prescribed prednisone to begin tomorrow. She has had her first dose here. She will be prescribed albuterol. Clinical Impressions as of 06/16/22 1128 Severe asthma with exacerbation, unspecified whether persistent Hypokalemia COVID-19 test performed per [facility] [place] policy for suspected COVID community exposure. MDM / Disposition / Plan Differential Diagnoses Less Likely - Pneumothorax is less likely for the following reason(s): CXR without PTX - Pneumonia is less likely for the following reason(s): CXR without infiltrate - CHF is less likely for the following reason(s): no evidence of volume overload on CXR Management I performed an independent interpretation of the following:see ED course Radiology Reports XR CHEST 1V FRONTAL PORT Final Result IMPRESSION: No acute radiographic abnormality. Poultry Raiser: ELLE Transcribe Date/Time: Jun 16 2022 9:33A Dictated by : WILDER HERNANDES MD This examination was interpreted and the report reviewed and electronically signed by: WILDER HERNANDES MD on Jun 16 2022 9:33AM EST All Labs ED Labs Ordered and Reviewed BASIC METABOLIC PNL - Abnormal; Notable for the following components: Potassium 3.5 (*) Ref Range: 3.7 - 5.1 mmol/L Chloride 106 (*) Ref Range: 97 - 105 mmol/L All other components within normal limits CBC + DIFF - Abnormal; Notable for the following components: Abs Eosin 1.54 (*)Ref Range: <0.46 k/uL All other components within normal limits VENOUS BLOOD GASES - Abnormal; Notable for the following components: pO2, Venous <31 (*) Ref Range: 35 - 45 mmHg Oxyhemoglobin, Venous 41 (*) Ref Range: 60 - 85 % Potassium, Whole Blood 3.4 (*) Ref Range: 3.5 - 5.0 mmol/L All other components within normal limits HCG URINE - ED(POC) - Normal MAGNESIUM BLD - Normal EXPEDITED COVID, FLU A/B + RSV - Normal Meds Given During Visit ED Medication Administration from 06/16/2022 0846 to 06/16/2022 1128 Date/Time Order Dose Route Action 06/16/2022 0900 EDT predniSONE 60 mg tab(s) (DELTASONE) 60 mg ORAL Given 06/16/2022 0905 EDT albuterol 2.5 mg /3 mL (0.083 %) 15 mg (PROVENTIL) 15 mg INHALATION New Bag/Syringe/Bottle Re-evaluation clinically improved and feeling better See ED course. Artur Meng MD Disposition The patient was discharged. Counseled patient regarding lab results, radiol (more content not included)... Normal [facility] FLUABV+SARS-CoV-2+RSV Pnl Re sp ALYCIA+probeon 06-16-2022 FLUABV+SARS-CoV-2+RSV Pnl Resp ALYCIA+probe COVID 19 RESULT: Not detected The method used is RT-PCR or an equivalent NAAT method. Reference Range(the expected result in uninfected individuals): Not detected INFLUENZA A PCR: Not detected INFLUENZA B PCR: Not detected RSV PCR: Not detected Normal [facility] Comment on above: Performed By: #### T ARY MICRO #### [facility] CLIA [id number] [address] [place] [address] [place] Gas and Carbon monoxide pane l (BldV)on 06-16-2022 BASE DEFICIT, VENOUS >-1 Normal -2-0 [facility] Comment on above: Order Comment: Speci men Type: VENOUS BLOOD SPECIMEN Ordering Facility: [facility] Address: [address] [address] Performed By: #### 2 4344-4 #### [facility] CLIA [id number] [facility] [address] [address] Carboxyhemoglobin (BldV) [Mass fraction] <1.0 Normal 0.0-2.0 [facility] Comment on above: Order Comment: Speci men Type: VENOUS BLOOD SPECIMEN Ordering Facility: [facility] Address: [address] [address] Result Comment: Carb oxyhemoglobin Reference Range for Smokers: 2.0-8.0% Performed By: #### 2 4344-4 #### [facility] CLIA [id number] [facility] [address] [address] CO2 (BldV) [Partial pressure] 47 mm[Hg] Normal 42-55 [facility] Comment on above: Order Comment: Speci men Type: VENOUS BLOOD SPECIMEN Ordering Facility: [facility] Address: [address] [address] Performed By: #### 2 4344-4 #### [facility] CLIA [id number] [facility] [address] [address] CO2 adjusted to patient's actual temperature (BldV) [Partial pressure] Normal [facility] Comment on above: Order Comment: Speci men Type: VENOUS BLOOD SPECIMEN Ordering Facility: [facility] Address: [address] [address] Performed By: #### 2 4344-4 #### [facility] CLIA [id number] [facility] [address] [address] HCO3 (Bld) [Moles/Vol] 25 mmol/L Normal 24-28 [facility] Comment on above: Order Comment: Speci men Type: VENOUS BLOOD SPECIMEN Ordering Facility: [facility] Address: [address] [address] Performed By: #### 2 4344-4 #### [facility] CLIA [id number] [facility] [address] [address] Lactate [Moles/Vol] 1.8 mmol/L Normal 0.5-2.2 [facility] Comment on above: Order Comment: Speci men Type: VENOUS BLOOD SPECIMEN Ordering Facility: [facility] Address: [address] [address] Performed By: #### 2 4344-4 #### [facility] CLIA [id number] [facility]ERAP[facility] [address] [address] O2 THERAPY RA=Room Air [facility] Comment on above: Order Comment: Speci men Type: VENOUS BLOOD SPECIMEN Ordering Facility: [facility] Address: [address] [address] Performed By: #### 2 4344-4 #### [facility] CLIA [id number] [facility] [address] [address] Oxygen (BldV) [Partial pressure] mm[Hg] Low 35-45 [facility] Comment on above: Order Comment: Speci men Type: VENOUS BLOOD SPECIMEN Ordering Facility: [facility] Address: [address] [address] Performed By: #### 2 4344-4 #### [facility] CLIA [id number] [facility]ERAP[facility] [address] [address] Oxygen adjusted to patient's actual temperature (BldV) [Partial pressure] [facility] Comment on above: Order Comment: Speci men Type: VENOUS BLOOD SPECIMEN Ordering Facility: [facility] Address: [address] [address] Performed By: #### 2 4344-4 #### [facility] CLIA [id number] [facility] [address] [address] Oxyhemoglobin (BldV) [Mass fraction] 41 % Low 60-85 [facility] Comment on above: Order Comment: Speci men Type: VENOUS BLOOD SPECIMEN Ordering Facility: [facility] Address: [address] [address] Performed By: #### 2 4344-4 #### [facility] CLIA [id number] [facility] [address] [address] pH (BldV) 7.35 [pH] Normal 7.32-7.42 [facility] Comment on above: Order Comment: Speci men Type: VENOUS BLOOD SPECIMEN Ordering Facility: [facility] Address: [address] [address] Performed By: #### 2 4344-4 #### [facility] CLIA [id number] [facility] [address] [address] pH adjusted to patient's actual temperature (BldV) Normal [facility] Comment on above: Order Comment: Speci men Type: VENOUS BLOOD SPECIMEN Ordering Facility: [facility] Address: [address] [address] Performed By: #### 2 4344-4 #### [facility] CLIA [id number] [facility] [address] [address] Potassium [Moles/Vol] 3.4 mmol/L Low 3.5-5.0 [facility] Comment on above: Order Comment: Speci men Type: VENOUS BLOOD SPECIMEN Ordering Facility: [facility] Address: [address] [address] Performed By: #### 2 4344-4 #### [facility] CLIA [id number] [facility] [address] [address] [facility] Magnesium [Mass/Vol] 2.0 mg/dL Normal 1.7-2.3 [facility] Comment on above: Order Comment: Speci men Type: BLOOD SPECIMEN Ordering Facility: [facility] Address: [address] [address] Performed By: #### T ARY, MICRO #### [facility] CLIA [id number] [address] [place] [address] [place] XR CHEST 1V FRONTAL PORTon 0 06-16-2022 XR CHEST 1V FRONTAL PORT * * *Final Report* * * DATE OF EXAM: Jun 16 2022 9:11AM MDX [id number] - XR CHEST 1V FRONTAL PORT / PROCEDURE REASON: Shortness of breath * * * * Physician Interpretation * * * * EXAMINATION: CHEST RADIOGRAPH (PORTABLE SINGLE VIEW AP) Exam Date/Time: 06/16/2022 9:11 AM CLINICAL HISTORY: Shortness of breath MQ: XCPR_5 Comparison: None RESULT: Lines, tubes, and devices: None. Lungs and pleura: No focal lung consolidation. No significant pleural effusion or pneumothorax. Cardiomediastinal silhouette: Normal cardiomediastinal silhouette. Other: No acute osseous abnormality. IMPRESSION: No acute radiographic abnormality. Poultry Raiser: PSCB Transcribe Date/Time: Jun 16 2022 9:33A Dictated by : WILDER HERNANDES MD This examination was interpreted and the report reviewed and electronically signed by: WILDER HERNANDES MD on Jun 16 2022 9:33AM EST [id number] Normal [facility] US THYROID/PARATHYROIDon [facility] THYROGLOBULIN ABon Thyroglobulin Ab Qn 2.1 [IU]/mL Normal <14.4 [facility] Comment on above: Order Comment: Jordan perry Type: BLOOD SPECIMEN Ordering Facility: [facility] Address: [address] [place] [address] Performed By: #### T ARY, MICRO #### [facility] CLIA [id number] [facility] [place] [address] [place] THYROID PEROXIDASE ANTIBODY BLOODon 04-10-2022 TPO Ab Qn 11.5 [IU]/mL High <5.6 [facility] Comment on above: Order Comment: Jordan perry Type: BLOOD SPECIMEN Ordering Facility: [facility] Address: [address] [place] [address] Result Comment: Thyr oid Peroxidase Antibody test is used as an aid in diagnosis of autoimmune thyroid disease. Clinical correlation is required. Performed By: #### T ARY, MICRO #### [facility] CLIA [id number] [facility] [address] [place] THYROID STIMULATING IMMUNOGL OBULIN BLOODon 04-10-2022 Thyroid stimulating immunoglobulins actual/normal (S) [Relative mass conc] % Normal <0.55 [facility] Comment on above: Order Comment: Speckalpesh perry Type: BLOOD SPECIMEN Ordering Facility: [facility] Address: [address] [place] [address] Result Comment: Thyr oid Stimulating Immunoglobulin test is used as an aid in diagnosis of autoimmune hyperthyroidism especially in patients with Grave's orbitopathy and dermopathy. Low positive TSH receptor stimulating antibody levels may occasionally be found in patients with autoimmune hypothyroidism. Clinical correlation is required. Performed By: #### T SIGIM #### [facility] CLIA [id number] [address] [place] [address] [place] TSI QUALITATIVE Negative Normal Negative [facility] Comment on above: Order Comment: Jordan perry Type: BLOOD SPECIMEN Ordering Facility: [facility] Address: [address] [place] [address] Performed By: #### T SIGIM #### [facility] CLIA [id number] [address] [place] [address] [place] Basic metabolic 1998 panelon 03-11-2022 Anion gap [Moles/Vol] 2 mmol/L Low 3 - 13 mmol/L [facility] Calcium [Mass/Vol] 9.0 mg/dL 8.4 - 10. 4 mg/dL [facility] Chloride [Moles/Vol] 108 mmol/L High 98 - 10 7 mmol/L [facility] CO2 [Moles/Vol] 30 mmol/L 22 - 30 mmol/L [facility] Creatinine [Mass/Vol] 0.60 mg/dL 0.52 - 1.04 mg/dL [facility] GFR/1.73 sq M.predicted MDRD (S/P/Bld) [Vol rate/Area] - PINF [facility] Comment on above: Calculation based on the Chronic Kidney Disease Epidemiology Collaboration (CKD-EPI) equation refit without adjustment for race Glucose [Mass/Vol] 123 mg/dL High 70 - 100 mg/dL [facility] Interpretation and review of laboratory results Abnormal [facility] Potassium [Moles/Vol] 4.4 mmol/L 3.5 - 5.1 mmol/L [facility] Sodium [Moles/Vol] 141 mmol/L 135 - 145 mmol/L [facility] Urea nitrogen [Mass/Vol] 11 mg/dL 7 - 17 mg/dL [facility] CBC W Auto Differential pane l (Bld)Ordered By: Nicolle Dunlap on 03-11-2022 Basophils (Bld) [#/Vol] 0.0 10*3/uL 0.0 - 0.2 10*3/uL [facility] Basophils/100 WBC (Bld) 0.3 % 0.0 - 2.0 % [facility] Eosinophils (Bld) [#/Vol] 0.1 10*3/uL 0.0 - 0.5 10*3/uL [facility] Eosinophils/100 WBC (Bld) 1.1 % 1.0 - 6.0 % [facility] Erythrocyte distribution width (RBC) [Ratio] 14.3 % 11.5 - 14.5 % [facility] Hematocrit (Bld) [Volume fraction] 37.9 % 35.0 - 47.0 % [facility] Hemoglobin (Bld) [Mass/Vol] 12.2 g/dL 11.7 - 16.0 g/dL [facility] Immature granulocytes (Bld) [#/Vol] 0.1 10*3/uL High NINF - 0.0 10*3/uL [facility] Immature granulocytes/100 WBC (Bld) 0.5 % High NINF - 0.0 % [facility] Interpretation and review of laboratory results Abnormal [facility] Lymphocytes (Bld) [#/Vol] 1.2 10*3/uL 1.0 - 4.3 10*3/uL [facility] Lymphocytes/100 WBC (Bld) 11.1 % Low 20.0 - 40.0 % [facility] MCH (RBC) [Entitic mass] 27.4 pg 26.0 - 34.0 pg [facility] MCHC (RBC) [Mass/Vol] 32.2 % 32.0 - 36.0 % [facility] MCV (RBC) [Entitic vol] 85.0 fL 80.0 - 98.0 fL [facility] Monocytes (Bld) [#/Vol] 0.3 10*3/uL 0.0 - 0.8 10*3/uL [facility] Monocytes/100 WBC (Bld) 2.9 % 2.0 - 10.0 % [facility] Neutrophils (Bld) [#/Vol] 8.9 10*3/uL High 1.8 - 7.0 10*3/uL [facility] Neutrophils/100 WBC (Bld) 84.1 % High 40.0 - 80.0 % [facility] Platelet mean volume (Bld) [Entitic vol] 10.0 fL 7.4 - 12.4 fL [facility] Comment on above: MPV is a calculated measurement using platelet volume ratio Platelets (Bld) [#/Vol] 263 10*3/uL 140 - 440 10*3/uL [facility] RBC (Bld) [#/Vol] 4.46 10*6/uL 3.8 - 5.20 10*6/uL [facility] WBC (Bld) [#/Vol] 10.6 10*3/uL 3.6 - 10.7 10*3/uL [facility] Laboratory - Chemistry and C hemistry - challengeon 03-11-2022 Procalcitonin [Mass/Vol] ng/mL 0.00 - 0.09 ng/mL [facility] HCG.beta subunit Qn Females < 5 mIU/mL [facility] No Panel Informationon 03-11 Values in should double every 2 to 3 days for the first 6 weeks. Elevated concentrations of human chorionic gonadotropin (hCG) measured in the first trimester of are observed in normal , but may serve as an indication of chorionic carcinoma, hydatiform mole, or multiple . Decreasing hCG concentrations indicate threatened or missed , recent termination of , ectopic , gestosis or intrauterine . Feli- and postmenopausal females may have detectable hCG concentrations (< or = to 14 mIU/mL) due to pituitary production of hCG. Serum follicle-stimulating hormone measurement may aid in ruling-out in this population. Cutoffs of greater than 20 to 45 mIU/mL have been suggested and are method dependent. False-elevations (called phantom human chorionic gonadotropin: hCG) may occur with patients who have human antianimal or heterophilic antibodies. Some specimens may not dilute linearly due to abnormal forms of hCG. Elevated hCG concentrations not associated with are found in patients with other diseases such as tumors of the germ cells, ovaries, bladder, pancreas, stomach, lungs, and liver. This test is not intended to detect or monitor tumors or gestational trophoblastic disease. [facility] Procalcitonin [Mass/Vol]on 0 03-11-2022 Interpretation and review of laboratory results Normal [facility] PCT <0.50 = Low risk of severe sepsis and/or septic shock. PCT >2.00 = High risk of severe sepsis and/or septic shock. [facility] Respiratory pathogens DNA an d RNA panel ALYCIA+probe (Nph)on 03-11-2022 Adenovirus Not detected Not Detected [facility] th B. pertussis DNA ALYCIA+probe Ql (Unsp spec) Not detected Not Detected [facility] Bordetella parapertussis Not detected Not Detected [facility] Chlamydia pneumoniae Not detected Not Detected [facility] Coronavirus 229E Not detected Not Detected [facility] Coronavirus HKU1 Not detected Not Detected [facility] Coronavirus NL63 Not detected Not Detected [facility] Coronavirus OC43 Not detected Not Detected [facility] FLUAV RNA ALYCIA+non-probe Ql (Nph) Not detected Not Detected [facility] FLUBV RNA ALYCIA+non-probe Ql (Nph) Not detected Not Detected [facility] Human Metapneumovirus Not detected Not Detected [facility] Human Rhinovirus/Enteroviru s Not detected Not Detected [facility] Interpretation and review of laboratory results Normal [facility] Mycoplasma pneumoniae Not detected Not Detected [facility] Parainfluenza 1 Not detected Not Detected [facility] Parainfluenza 2 Not detected Not Detected [facility] Parainfluenza 3 Not detected Not Detected [facility] Parainfluenza 4 Not detected Not Detected [facility] Respiratory Syncytial Virus Not detected Not Detected [facility] SARS-CoV-2 (COVID-19) RNA ALYCIA+non-probe Ql (Nph) Not detected Not Detected [facility] Methodology: Multipl ex PCR [facility] XR Chest Single viewon 03-11 No acute cardiopulmonary disease. Report Dictated on Electronically Signed By: Yuriy Saldivar Electronically Signed Date/Time: 03/11/2022 6:27 PM EST [facility] Patient Name: IRVIN ALARCON Exam Date/Time: 03/11/2022 18:27 Procedure: XR CHEST 1 VIEW Ordering Provider: MUSTAFA MEREDITH Reason For Exam: PORTABLE CHEST X-RAY CLINICAL INDICATION: Shortness of breath A portable frontal view of the chest was obtained. COMPARISON: 09/03/2018 FINDINGS: The cardiac silhouette is within normal limits. No focal consolidation is seen within the lungs. There is no large pleural effusion or pneumothorax. The bony structures of the chest are unremarkable as visualized. [facility] Yuriy Saldivar MD - 03/11/2022 Patient Name: IRVIN KLINE Exam Date/Time: 03/11/2022 18:27 Procedure: XR CHEST 1 VIEW Ordering Provider: MUSTAFA MEREDITH Reason For Exam: PORTABLE CHEST X-RAY CLINICAL INDICATION: Shortness of breath A portable frontal view of the chest was obtained. COMPARISON: 09/03/2018 FINDINGS: The cardiac silhouette is within normal limits. No focal consolidation is seen within the lungs. There is no large pleural effusion or pneumothorax. The bony structures of the chest are unremarkable as visualized. IMPRESSION: No acute cardiopulmonary disease. Report Dictated on Electronically Signed By: Yuriy Saldivar Electronically Signed Date/Time: 03/11/2022 6:27 PM EST [facility] Radiology Study observation (narrative) [facility] XR Chest Single viewOrdered By: Yuriy Saldivar on 03-11-2022 [facility] Work Phone: 36on 02-25-2022 36 Refused, has not bee n seen here for over a year and it looks like she reestablished with another physician Normal [facility] 36 Prescription Request : Last medication check: 11/30/20 Last physical exam: 06/01/20 Next scheduled appointment: KARAN-PRISCILA WITH AYESHA Last date of refill on this medication 11/30/20 Normal [facility] 36on 02-14-2022 36 Noted Normal [facility] 36 Pt is r/s for 03/27 at 11:15am Normal [facility] 36on 02-13-2022 36 Preferred contact number: [phone] Reason for Visit: 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 [facility] CR Ankle 3+ Views Righton CR Ankle 3+ Views Right Patient Name: IRVIN KLINE Diagnostic Radiology ACCESSION EXAM DATE/TIME PROCEDURE ORDERING PROVIDER [id number] 07/29/2020 20:35 EDT CR Ankle 3+ Views Right [id number] -ANTHONY WEATHERS CPT code 25185 Reason For Exam (CR Ankle 3+ Views Right) right ankle injury, inversion Report RIGHT TIBIA AND FIBULA 2 VIEWS CLINICAL INDICATION: right ankle injury, inversion TECHNIQUE: 2 views of the right tibia and fibula. COMPARISON: None. FINDINGS: No acute fracture or dislocation. Mild proximal pretibial soft tissue edema. IMPRESSION: 1. No acute osseous abnormality. 2. Soft tissue edema. RIGHT ANKLE 3 VIEWS. RIGHT FOOT 3 VIEWS CLINICAL INDICATION: right ankle injury, inversion TECHNIQUE: 3 views of the right ankle. 3 views of the right foot. COMPARISON: Right ankle radiographs, September,. FINDINGS: No acute fracture or dislocation. Ankle mortise maintained. Joint spaces maintained. Mild plantar calcaneal spurring. Mild soft tissue edema over the lateral malleolus. IMPRESSION: 1. No acute osseous abnormality. 2. Soft tissue edema. Diagnostic Radiology Report Report Dictated on Workstation: ETHAN Final Dictating Physician: MD MÉNDEZ WENDELL Signed Date and Time: 07/29/2020 8:44 pm Signed by: MD MÉNDEZ WENDELL Transcribed Date and Time: 07/29/2020 8:45 Normal [facility] CR Foot Complete 3+ Views Ri ceci 07-29-2020 CR Foot Complete 3+ Views Right Patient Name: IRVIN KLINE Diagnostic Radiology ACCESSION EXAM DATE/TIME PROCEDURE ORDERING PROVIDER [id number] 07/29/2020 20:35 EDT CR Foot Complete 3+ [id number] -[place], Views Right ANTHONY CPT code 46766 Reason For Exam (CR Foot Complete 3+ Views Right) right ankle inversion injury, right lateral malleolus swelling and pain Report RIGHT TIBIA AND FIBULA 2 VIEWS CLINICAL INDICATION: right ankle injury, inversion TECHNIQUE: 2 views of the right tibia and fibula. COMPARISON: None. FINDINGS: No acute fracture or dislocation. Mild proximal pretibial soft tissue edema. IMPRESSION: 1. No acute osseous abnormality. 2. Soft tissue edema. RIGHT ANKLE 3 VIEWS. RIGHT FOOT 3 VIEWS CLINICAL INDICATION: right ankle injury, inversion TECHNIQUE: 3 views of the right ankle. 3 views of the right foot. COMPARISON: Right ankle radiographs, September,. FINDINGS: No acute fracture or dislocation. Ankle mortise maintained. Joint spaces maintained. Mild plantar calcaneal spurring. Mild soft tissue edema over the lateral malleolus. IMPRESSION: 1. No acute osseous abnormality. 2. Soft tissue edema. Diagnostic Radiology Report Report Dictated on Workstation: ETHAN Final Dictating Physician: MD MÉNDEZ WENDELL Signed Date and Time: 07/29/2020 8:44 pm Signed by: MD MÉNDEZ WENDELL Transcribed Date and Time: 07/29/2020 8:45 Normal [facility] CR Tibia/Fibula 2 Views [facility] 07-29-2020 CR Tibia/Fibula 2 Views Right Patient Name: IRVIN KLINE [facility]#: [id number] Diagnostic Radiology ACCESSION EXAM DATE/TIME PROCEDURE ORDERING PROVIDER [id number] 07/29/2020 20:35 EDT CR Tibia/Fibula 2 Views [id number] -[place], Right ANTHONY CPT code 80950 Reason For Exam (CR Tibia/Fibula 2 Views Right) right ankle injury, inversion, lateral malleolus pain and swelling Report RIGHT TIBIA AND FIBULA 2 VIEWS CLINICAL INDICATION: right ankle injury, inversion TECHNIQUE: 2 views of the right tibia and fibula. COMPARISON: None. FINDINGS: No acute fracture or dislocation. Mild proximal pretibial soft tissue edema. IMPRESSION: 1. No acute osseous abnormality. 2. Soft tissue edema. RIGHT ANKLE 3 VIEWS. RIGHT FOOT 3 VIEWS CLINICAL INDICATION: right ankle injury, inversion TECHNIQUE: 3 views of the right ankle. 3 views of the right foot. COMPARISON: Right ankle radiographs, September,. FINDINGS: No acute fracture or dislocation. Ankle mortise maintained. Joint spaces maintained. Mild plantar calcaneal spurring. Mild soft tissue edema over the lateral malleolus. IMPRESSION: 1. No acute osseous abnormality. 2. Soft tissue edema. Diagnostic Radiology Report Report Dictated on Workstation: ETHAN Final Dictating Physician: MD MÉNDEZ WENDELL Signed Date and Time: 07/29/2020 8:44 pm Signed by: MD MÉNDEZ WENDELL Transcribed Date and Time: 07/29/2020 8:45 Normal [facility] XR ANKLE RIGHT (MIN 3 VIEWS) Ordered By: Anthony Weathers on 07-29-2020 Patient Name: IRVIN ALARCON [facility]#: [id number] Diagnostic Radiology ACCESSION EXAM DATE/TIME PROCEDURE ORDERING PROVIDER [id number] 07/29/2020 20:35 EDT CR Ankle 3+ Views Right [id number] -ANTHONY WEATHERS CPT code 05057 Reason For Exam (CR Ankle 3+ Views Right) right ankle injury, inversion Report RIGHT TIBIA AND FIBULA 2 VIEWS CLINICAL INDICATION: right ankle injury, inversion TECHNIQUE: 2 views of the right tibia and fibula. COMPARISON: None. FINDINGS: No acute fracture or dislocation. Mild proximal pretibial soft tissue edema. IMPRESSION: 1. No acute osseous abnormality. 2. Soft tissue edema. RIGHT ANKLE 3 VIEWS. RIGHT FOOT 3 VIEWS CLINICAL INDICATION: right ankle injury, inversion TECHNIQUE: 3 views of the right ankle. 3 views of the right foot. COMPARISON: Right ankle radiographs, September,. FINDINGS: No acute fracture or dislocation. Ankle mortise maintained. Joint spaces maintained. Mild plantar calcaneal spurring. Mild soft tissue edema over the lateral malleolus. IMPRESSION: 1. No acute osseous abnormality. 2. Soft tissue edema. Diagnostic Radiology Report Report Dictated on Workstation: ETHAN --- Final --- Dictating Physician: MD MÉNDEZ WENDELL Signed Date and Time: 07/29/2020 8:44 pm Signed by: MD MÉNDEZ WENDELL Transcribed Date and Time: 07/29/2020 8:45 [facility] Work Phone: [facility], [facility] Results From [facility] - 07/29/2020 8:45 PM EDT Patient Name: IRVIN KLINE Diagnostic Radiology ACCESSION EXAM DATE/TIME PROCEDURE ORDERING PROVIDER [id number] 07/29/2020 20:35 EDT CR Ankle 3+ Views Right [id number] -ANTHONY WEATHERS CPT code 26952 Reason For Exam (CR Ankle 3+ Views Right) right ankle injury, inversion Report RIGHT TIBIA AND FIBULA 2 VIEWS CLINICAL INDICATION: right ankle injury, inversion TECHNIQUE: 2 views of the right tibia and fibula. COMPARISON: None. FINDINGS: No acute fracture or dislocation. Mild proximal pretibial soft tissue edema. IMPRESSION: 1. No acute osseous abnormality. 2. Soft tissue edema. RIGHT ANKLE 3 VIEWS. RIGHT FOOT 3 VIEWS CLINICAL INDICATION: right ankle injury, inversion TECHNIQUE: 3 views of the right ankle. 3 views of the right foot. COMPARISON: Right ankle radiographs, September,. FINDINGS: No acute fracture or dislocation. Ankle mortise maintained. Joint spaces maintained. Mild plantar calcaneal spurring. Mild soft tissue edema over the lateral malleolus. IMPRESSION: 1. No acute osseous abnormality. 2. Soft tissue edema. Diagnostic Radiology Report Report Dictated on Workstation: ETHAN --- Final --- Dictating Physician: MD MÉNDEZ WENDELL Signed Date and Time: 07/29/2020 8:44 pm Signed by: MD MÉNDEZ WENDELL Transcribed Date and Time: 07/29/2020 8:45 [facility] Work Phone: [facility] Work Phone: XR FOOT RIGHT (MIN 3 VIEWS)O rdered By: Anthony Weathers on 07-29-2020 Patient Name: IRVIN ALARCON Diagnostic Radiology ACCESSION EXAM DATE/TIME PROCEDURE ORDERING PROVIDER [id number] 07/29/2020 20:35 EDT CR Foot Complete 3+ [id number] -[place], Views Right ANTHONY CPT code 42098 Reason For Exam (CR Foot Complete 3+ Views Right) right ankle inversion injury, right lateral malleolus swelling and pain Report RIGHT TIBIA AND FIBULA 2 VIEWS CLINICAL INDICATION: right ankle injury, inversion TECHNIQUE: 2 views of the right tibia and fibula. COMPARISON: None. FINDINGS: No acute fracture or dislocation. Mild proximal pretibial soft tissue edema. IMPRESSION: 1. No acute osseous abnormality. 2. Soft tissue edema. RIGHT ANKLE 3 VIEWS. RIGHT FOOT 3 VIEWS CLINICAL INDICATION: right ankle injury, inversion TECHNIQUE: 3 views of the right ankle. 3 views of the right foot. COMPARISON: Right ankle radiographs, September,. FINDINGS: No acute fracture or dislocation. Ankle mortise maintained. Joint spaces maintained. Mild plantar calcaneal spurring. Mild soft tissue edema over the lateral malleolus. IMPRESSION: 1. No acute osseous abnormality. 2. Soft tissue edema. Diagnostic Radiology Report Report Dictated on Workstation: ETHAN --- Final --- Dictating Physician: MD MÉNDEZ WENDELL Signed Date and Time: 07/29/2020 8:44 pm Signed by: MD MÉNDEZ WENDELL Transcribed Date and Time: 07/29/2020 8:45 [facility] Work Phone: [facility], [facility] Incoming Radiology Results From [facility] - 07/29/2020 8:45 PM EDT Patient Name: IRVIN KLINE [facility]#: [id number] Diagnostic Radiology ACCESSION EXAM DATE/TIME PROCEDURE ORDERING PROVIDER [id number] 07/29/2020 20:35 EDT CR Foot Complete 3+ [id number] -[place], Views Right ANTHONY CPT code 62434 Reason For Exam (CR Foot Complete 3+ Views Right) right ankle inversion injury, right lateral malleolus swelling and pain Report RIGHT TIBIA AND FIBULA 2 VIEWS CLINICAL INDICATION: right ankle injury, inversion TECHNIQUE: 2 views of the right tibia and fibula. COMPARISON: None. FINDINGS: No acute fracture or dislocation. Mild proximal pretibial soft tissue edema. IMPRESSION: 1. No acute osseous abnormality. 2. Soft tissue edema. RIGHT ANKLE 3 VIEWS. RIGHT FOOT 3 VIEWS CLINICAL INDICATION: right ankle injury, inversion TECHNIQUE: 3 views of the right ankle. 3 views of the right foot. COMPARISON: Right ankle radiographs, September,. FINDINGS: No acute fracture or dislocation. Ankle mortise maintained. Joint spaces maintained. Mild plantar calcaneal spurring. Mild soft tissue edema over the lateral malleolus. IMPRESSION: 1. No acute osseous abnormality. 2. Soft tissue edema. Diagnostic Radiology Report Report Dictated on Workstation: [email or web address] --- Final --- Dictating Physician: MD MÉNDEZ WENDELL Signed Date and Time: 07/29/2020 8:44 pm Signed by: MD MÉNDEZ WENDELL Transcribed Date and Time: 07/29/2020 8:45 [facility] Work Phone: [facility] Work Phone: XR TIBIA FIBULA RIGHT (2 VIE WS)Ordered By: Anthony Weathers on 07-29-2020 Patient Name: IRVIN ALARCON [facility]#: [id number] Diagnostic Radiology ACCESSION EXAM DATE/TIME PROCEDURE ORDERING PROVIDER [id number] 07/29/2020 20:35 EDT CR Tibia/Fibula 2 Views [id number] -BOBBYRight ZBIGNIEW GUZMANOLAS CPT code 86724 Reason For Exam (CR Tibia/Fibula 2 Views Right) right ankle injury, inversion, lateral malleolus pain and swelling Report RIGHT TIBIA AND FIBULA 2 VIEWS CLINICAL INDICATION: right ankle injury, inversion TECHNIQUE: 2 views of the right tibia and fibula. COMPARISON: None. FINDINGS: No acute fracture or dislocation. Mild proximal pretibial soft tissue edema. IMPRESSION: 1. No acute osseous abnormality. 2. Soft tissue edema. RIGHT ANKLE 3 VIEWS. RIGHT FOOT 3 VIEWS CLINICAL INDICATION: right ankle injury, inversion TECHNIQUE: 3 views of the right ankle. 3 views of the right foot. COMPARISON: Right ankle radiographs, September,. FINDINGS: No acute fracture or dislocation. Ankle mortise maintained. Joint spaces maintained. Mild plantar calcaneal spurring. Mild soft tissue edema over the lateral malleolus. IMPRESSION: 1. No acute osseous abnormality. 2. Soft tissue edema. Diagnostic Radiology Report Report Dictated on Workstation: ETHAN --- Final --- Dictating Physician: MD MÉNDEZ WENDELL Signed Date and Time: 07/29/2020 8:44 pm Signed by: MD MÉNDEZ WENDELL Transcribed Date and Time: 07/29/2020 8:45 [facility] Work Phone: [facility], [facility] Incoming Radiology Results From [facility] - 07/29/2020 8:45 PM EDT Patient Name: IRVIN KLINE [facility]#: [id number] Diagnostic Radiology ACCESSION EXAM DATE/TIME PROCEDURE ORDERING PROVIDER [id number] 07/29/2020 20:35 EDT CR Tibia/Fibula 2 Views [id number] -JASIEL, Right ANTHONY CPT code 61321 Reason For Exam (CR Tibia/Fibula 2 Views Right) right ankle injury, inversion, lateral malleolus pain and swelling Report RIGHT TIBIA AND FIBULA 2 VIEWS CLINICAL INDICATION: right ankle injury, inversion TECHNIQUE: 2 views of the right tibia and fibula. COMPARISON: None. FINDINGS: No acute fracture or dislocation. Mild proximal pretibial soft tissue edema. IMPRESSION: 1. No acute osseous abnormality. 2. Soft tissue edema. RIGHT ANKLE 3 VIEWS. RIGHT FOOT 3 VIEWS CLINICAL INDICATION: right ankle injury, inversion TECHNIQUE: 3 views of the right ankle. 3 views of the right foot. COMPARISON: Right ankle radiographs, September,. FINDINGS: No acute fracture or dislocation. Ankle mortise maintained. Joint spaces maintained. Mild plantar calcaneal spurring. Mild soft tissue edema over the lateral malleolus. IMPRESSION: 1. No acute osseous abnormality. 2. Soft tissue edema. Diagnostic Radiology Report Report Dictated on Workstation: ETHAN --- Final --- Dictating Physician: MD MÉNDEZ WENDELL Signed Date and Time: 07/29/2020 8:44 pm Signed by: MD MÉNDEZ WENDELL Transcribed Date and Time: 07/29/2020 8:45 [facility] Work Phone: [facility] Work Phone: CORONAVIRUS 2019 BY PCRon CORONAVIRUS 2019,PCR DETECTED Abnormal Not Detected [facility] Comment on above: Order Comment: CANDY CALI CALLED RB TO DEXTER, 01/25/2020 13:09 Result Comment: . This assay is designed to detect the N, ORF1ab and/or S genes of SARS-CoV-2 via nucleic acid amplification. A Negative (NOT DETECTED) result does not preclude 2019-nCoV infection since the adequacy of sample collection and/or low viral burden may result in presence of viral nucleic acids below the clinical sensitivity of this test method. Negative (NOT DETECTED) result should not be used as the sole basis for treatment or other patient management decisions. Rather negative results should be combined with clinical observations, patient history, and epidemiological information to make patient management decisions. Fact sheet for providers: https://www.fda.gov/media/007584/download Fact sheet for patients: https://www.fda.gov/media/633650/download This test has received FDA Emergency Use Authorization (EUA) and has been verified by [facility] ([facility]). This test is only authorized for the duration of time that circumstances exist to justify the authorization of the emergency use of in vitro diagnostic tests for the detection of SARS-CoV-2 virus and/or diagnosis of COVID-19 infection under section 564(b)(1) of the Act, 21 U.S.C. 360bbb-3(b)(1), unless the authorization is terminated or revoked sooner. [facility] is certified under CLIA-88 as qualified to perform high complexity testing. Testing is performed in the [facility] laboratories located at [address] [place] [address]. RESULTS CALLED KIARA LAFLEUR, 01/25/2020 13:09 Performed By: #### C OV19 #### [address] [place] [address] Covid 19 Resultson 0 Covid 19 Results POSITIVE COVID-[address] Coronaviruses are common world-wide and are the cause of many common colds. SARS-COV2 is a new coronavirus that began circulating worldwide in 2019 so we are calling it COVID-19. It has been estimated that four out of five patients with COVID-19 will recover at home without the need for medical attention. Symptoms of COVID-19 include cough, fever, shortness of breath, loss of taste or smell and other flu-like symptoms including chills, sore muscles, sore throat, and headache. Severe illness is more common in older people and people with other health problems such as high blood pressure, obesity, and immune system problems. If the test is positive, you have COVID-19. You will be contacted by the ordering physicians office and instructed to remain on home isolation, in accordance with CDC guidelines. You may also be contacted by the [facility] to see if any of your close contacts may have been exposed to the virus and need to quarantine. If the test is negative, you likely do not have COVID-19 at this time, but you still may have a different illness that can spread to other people (like Influenza, or the Flu) and could still be at risk for getting COVID-19. We recommend that you stay away from other people to limit the spread of illness until your symptoms are improving and you are fever-free for 24 hours without the use of fever lowering medications such as acetaminophen or ibuprofen. No test is 100% accurate so if you are still concerned you may have COVID-19, talk to your doctor about the need to continue to stay away from others. Medicines Acetaminophen (Tylenol and others) is generally safe. Anti-inflammatory medications, such as Ibuprofen (Advil or Motrin) or Naproxen (Aleve) can also be used. Prgd-bzg-dhxmzwe cough and cold medicines can be used according to the instructions on the package. Some usfi-ksw-vgcykib medicines also contain acetaminophen. Make sure you are not taking more than your recommended dose For those not hospitalized, there is no specific treatment available for this illness. Antibiotics do not treat Coronaviruses. Follow-Up Follow up with your doctor by scheduling a virtual visit or consider follow-up at one of our urgent care fever clinics. If you are having difficulty breathing, or are very weak and having difficulty standing, this is a medical emergency. Call 911 or have someone take you to the nearest emergency room immediately. If possible, wear a facemask. Additional guidance from the CDC for patients who tested POSITIVE for COVID-19 How to isolate: Isolate yourself in a specific room at home and limit your contact with others. Use a separate bathroom from other members of the household, when possible. Leave home only to get essential medical care. Do not go to work, school or public areas. Avoid using public transportation, ride-sharing, or taxis. Restrict contact with pets and other animals. If you must care for your pet or be around animals while you are sick, wash your hands before and after your interaction and wear a facemask. Make sure that shared spaces in the home have good airflow, such as by an air conditioner or an opened window, weather permitting. Personal Hygiene Procedures: Wear a face mask when in the same room as other people or pets. If a face mask interferes with your breathing, others should wear a mask when sharing space with you. Frequent hand-washing: wash your hands with soap and water for at least 20 seconds. If soap and water are not available, use alcohol-based hand dredge captain. Avoid touching your eyes, nose, and mouth with unwashed hands. Household Hygiene Procedures: Avoid sharing personal household items such as dishes, glassware, cups, eating utensils, towels or bedding with other people or pets in your home. After use, these items should be washed with soap and hot water. Disinfect all high-touch surfaces every day with antibacterial cleaning solutions such as Lysol wipes, bleach, cleansers, etc. High-touch surfaces include tabletops, doorknobs, bathroom fixtures, toilets, phones, keyboards, tablets and bedside tables. Immediately clean any surfaces that may have blood, poop or body fluids on them, using antibacterial cleaning solutions such as Lysol wipes, bleach, cleansers, etc. If clothing or bedding come into contact with blood, poop or body fluids, they should be washed immediately. Follow the directions on the laundry detergent and clothing labels but hot water is recommended when possible. Stopping home isolation precautions: If possible, consult your doctor before stopping home isolation precautions. According to the CDC, you can discontinue home isolation precautions when you have met both of these criteria: Your fever and respiratory symptoms have been gone for 24 hours without the use of any medicines like ibuprofen (Motrin) and acetaminophen (Tylenol). It has been at least 10 days since your symptoms first appeared. If you are immunosuppressed OR you were admitted to the hospital for this, you should wait until it has been 14 days since your symptoms first appeared. Guidelines for Those Living With and/or Caring For Persons with COVID-19: Read and follow all the recommendations outlined in this handout. Do not permit visitors in the home unless there is an essential need. Wear a facemask when in the same room as the patient. Wear a facemask and gloves (disposable if available) when you touch or have contact with the patient's blood, poop, or body fluids including saliva, phlegm, nasal mucus, vomit or urine. Clean or throw away facemasks and gloves after use and wash your hands with soap and water. You will need to quarantine (stay away from others) for 14 days after your last contact with your family member with COVID-19. The person with COVID-19 is considered contagious 48 hours prior to symptoms beginning (or starting with the day of the positive test if they have no symptoms) for a total of 10 days. Additional resources: [facility] COVID Hotline at 6-844-9ADEWUR ( ). COVID-19 Careline at (availab le 24 hours per day, seven days a week if you or a loved one is experiencing anxiety related to the coronavirus pandemic). Clinical research opportunities: is conducting research studies to develop better testing and treatments for COVID. Do you want any information on how to participate Call [phone]. Websites: hospitals.org or www.CDC.gov Follow My Health / My [facility] (for other test results):[phone] Revised 01/04/2020 Electronic Signatures: Sriram Melchorices (ADMIN) (Signature pending) Authored Last Updated: 25-Jan-2020 12:53 by Ruiz [employer] (ADMIN) Normal [facility] CORONAVIRUS 2019 BY PCRon Lab Specimen Source Nasal, Nasopharyngeal Normal [facility] Comment on above: Order Comment: CANDY CALI CALLED RB TO DEXTER, 01/25/2020 13:09 Performed By: #### C OV19 #### [facility] [address] [place] [address] Progress Noteon 12-28-2019 Bridge Design Engineer Authentication Interface Message Text DIABETES AND PROGRAM COMANAGEMENT Referring/Requesting Provider: Yanira De La Rosa DO PCP: Radha Riojas MD CHIEF COMPLAINT: Diabetes type: gestational, diet controlled HISTORY OF PRESENT ILLNESS: Irvin is a 29 y.o. at 34w5d with Diabetes type: gestational, diet controlled. Blood glucose record was reviewed. Hyperglycemia is present < 5%. Other medications: allergy meds, celexa. Fastings: 65 - 91 Breakfast: 92-131 Lunch: 833-133 Dinner: 87-114 (fewer FSBG dinner because delivering pizzas at dinner time. OB History Para Term AB Living 2 1 1 1 SAB TAB Ectopic Multiple Live Births 1 # Outcome Date GA Lbr Lex/2nd Weight Sex Delivery Anes PTL Lv 2 Current 1 08/07/16 36w0d 2.381 kg F CS-LTranv EPI MIGUEL Comments: induced for IUGR Complications: Failure to Progress in Second Stage Past Medical History: Diagnosis Date Asthma Gestational diabetes 1 hour GCT 156;sent for consult from [place] to [facility] for Diabetes management based on history of GDM and Obesity A1c 5.2 on 07/21/2019 Gestational diabetes mellitus (GDM) History of delivery History of gestational diabetes History of herpes genitalis History of IUGR (intrauterine growth retardation) and stillbirth, currently on Baby ASA Mixed anxiety and depressive disorder on Celexa 20mg daily Morbid obesity bmi is 47 Subchorionic hematoma Uncomplicated asthma on Symbicort and Albuterol Past Surgical History: Procedure Laterality Date SECTION 08/07/2016 CHOLECYSTECTOMY 2015 COLONOSCOPY 2018 normal findings No outpatient medications have been marked as taking for the 12/28/19 encounter (Office Visit) with Silke Valentin MD. Allergies Allergen Reactions Bupropion Diarrhea Ceftriaxone Anaphylaxis and Hives per pt mother was 3yo Sulfamethoxazole-Trime thoprim Anaphylaxis PHYSICAL EXAM: VITAL SIGNS: LMP 04/03/2019 AAOx3, NAD Total weight gain: 2.495 kg (5 lb 8 oz) IMAGIN. Single, living IUP at 34w 5d by clinical RASHEL. 2. There is appropriate interval growth. 3. EFW is 2435 g at 40%. 4. Amniotic fluid volume appeared normal, 17.5 cm. 5. Placenta is normal without evidence of previa. 6. Anatomic survey was not the focus of today's ultrasound. However, no gross anomalies were identified. 7. Biophysical profile (BPP) was 6 / 8 (-2 breathing) and NST was performed and reactive. Total score: 09/26 Please see ultrasound report for full details. IMPRESSION AND RECOMMENDATIONS: Irvin is a Diabetes type: gestational, diet controlled with 29 y.o. at 34w5d with Active Non-Hospital Problems Diagnosis Date Noted Gestational diabetes mellitus (GDM) Dx by GCT 153, [facility]SB[facility] DAPP intake for [employer] 10/29/2019 - Met with Mill Controller, has note for work for 15 minute break after dinner (works 2nd shift) - Q 4 week growth - 12/28/2019 within normal limits, 5lb6oz, 2435g. BPP 09/26 (-2 breathing) - Blood sugars reviewed 12/28/2019. Patient remains GDMA1 with dietary and behavioural changes. Will return to primary MD and return to M prn. - glucose screening - Increased risk of DM2 in next 5 - 10 years. Reviewed 12/28/2019 Depressive disorder on Celexa 20mg daily On Abilify 10 mg daily - increased risk of PP depression, regular screening recommended - therapy as indicated Reviewed 12/28/2019 History of cholecystectomy 09/24/2019 Morbid obesity with body mass index of 45.0-49.9 in adult 05/11/2019 BMI 47 10/29/2019 Obesity: The patient has a pre- BMI of >40, which is Obese - Early GCT ( completed, positive) - Growth assessment q 4 weeks (with GDM) - NST weekly at 36 weeks if not otherwise indicated - BMI > 40, if requires for delivery, post-operative thromboprophylaxis with Lovenox (40 mg SC daily) during hospitalization is recommended. - Total recommended weight gain: 20 lbs. Currently 3.311 kg (7 lb 4.8 oz) - Post Bariatrics referral - csm consultant for BMI Orthostatic lightheadedness 04/15/2019 RESOLVED 10/29/2019 History of section 08/10/2016 Plan of delivery to be determined with primary OB provider Reviewed 12/28/2019 Herpes simplex of female genitalia 07/18/2016 - f/up date of last outbreak - 3rd trimester prophylaxis recommended. Aysmptomatic 12/28/2019 Asthma 11/30/2014 on Symbicort and Albuterol - 11/30/2019 Reports she is out of her steroid inhaler and needs to refill it, but having more symptoms as the seasons change / allergens. On day 3 of a prednisone taper (down to 20 mg today). - Does not have a home Peak Flow meter. Recommended getting one from primary MD / pharmacy for self monitoring. - Discussed need for prophylactic inhaled steroids and how to use them appropriately to decrease symptoms. Follow up - Medication change: N/A continued diet control, encouraged compliance with diet and testing. - Clinical follow up: With RUBBER BALL FINISHER as previously scheduled. The total patient time of the visit was 15 minutes, of which was greater than 50% of the time was spent counseling and coordinating care. Normal [facility] Progress Noteon 11-30-2019 Bridge Design Engineer Authentication Interface Message Text DIABETES AND PROGRAM COMANAGEMENT Referring/Requesting Provider: Yanira De La Rosa DO PCP: Radha Riojas MD CHIEF COMPLAINT: gestational Diabetes HISTORY OF PRESENT ILLNESS: Irvin is a 29 y.o. at 30w5d with gestational, diet controlled Diabetes. Blood glucose record was reviewed. Hyperglycemia is present fasting (28.5%), other values within normal limits. Other medications: Albuterol, Symbicort (out, needs to refill), Prednisone taper x 10 days (30 - 30 - 30 - 20 - 20 - 20 - 20, etc). No cough or wheeze today, feeling well. No complaints. OB History Para Term AB Living 2 1 1 1 SAB TAB Ectopic Multiple Live Births 1 # Outcome Date GA Lbr Lex/2nd Weight Sex Delivery Anes PTL Lv 2 Current 1 08/07/16 36w0d 2.381 kg F CS-LTranv EPI MIGUEL Comments: induced for IUGR Complications: Failure to Progress in Second Stage Past Medical History: Diagnosis Date Asthma Gestational diabetes 1 hour GCT 156;sent for consult from [facility] to [facility] for Diabetes management based on history of GDM and Obesity A1c 5.2 on 07/21/2019 Gestational diabetes mellitus (GDM) History of delivery History of gestational diabetes History of herpes genitalis History of IUGR (intrauterine growth retardation) and stillbirth, currently on Baby ASA Mixed anxiety and depressive disorder on Celexa 20mg daily Morbid obesity bmi is 47 Subchorionic hematoma Uncomplicated asthma on Symbicort and Albuterol Past Surgical History: Procedure Laterality Date SECTION 08/07/2016 CHOLECYSTECTOMY 2014 COLONOSCOPY 2017 normal findings Outpatient Medications Marked as Taking for the 11/30/19 encounter (Office Visit) with Silke Valentin MD Medication Sig Dispense Refill albuterol 108 (90 Base) MCG/ACT inhaler INHAEL 2 PUFFS INTO THE LUNGH EVERY 6 HOURS NEEDED FOR WHEEZING ARIPiprazole (ABILIFY) 10 MG tablet Take by mouth daily aspirin 81 MG chewable tablet DAILY Blood Glucose Monitoring Suppl (TRUE METRIX METER) w/Device KIT use to TEST BLOOD SUGAR four times a day budesonide-formoterol (SYMBICORT) 160-4.5 MCG/ACT inhaler Inhale 2 Puffs into the lungs cetirizine (ZYRTEC) 10 MG tablet Take 10 mg by mouth daily Citalopram Hydrobromide (CELEXA) 40 MG tablet Take 20 mg by mouth daily TRUE METRIX BLOOD GLUCOSE TEST test strip use to TEST BLOOD SUGAR four times a day TRUEPLUS LANCETS 30G MISC use to TEST BLOOD SUGAR four times a day Vit w/Os-Urnicmifa-YW (PNV PO) Take 1 Cap by mouth daily Allergies Allergen Reactions Bupropion Diarrhea Ceftriaxone Anaphylaxis and Hives per pt mother was 3yo Sulfamethoxazole-Trime thoprim Anaphylaxis PHYSICAL EXAM: VITAL SIGNS: BP 121/61 Wt (!) 126.7 kg (279 lb 4.8 oz) LMP 04/03/2019 BMI 47.92 kg/m AAOx3, NAD Total weight gain: 3.311 kg (7 lb 4.8 oz) IMAGING: BPP 8/8 Growth 3lb 9 oz (47%), EVERARDO WNL Please see ultrasound report for full details. IMPRESSION AND RECOMMENDATIONS: Irvin is a gestational, diet controlled Diabetes with 29 y.o. at 30w5d with Active Non-Hospital Problems Diagnosis Date Noted Gestational diabetes mellitus (GDM) Dx by GCT 153, [facility]SB[facility] DAPP intake for [employer] 10/29/2019 - FSBS reviewed on follow up 11/07 100% within range - Met with Mill Controller, needs note for work for 15 minute break after dinner (works 2nd shift) - Q 4 week growth - 11/30/2019 within normal limits, 3lb9oz. - Blood sugars reviewed 11/30/2019. More fasting blood sugar elevations, also on PO prednisone. Recommend additional follow up for glycemic management in 2 weeks due to appearance of more common fasting hyperglycemia. - glucose screening - Increased risk of DM2 in next 5 - 10 years. Depressive disorder on Celexa 20mg daily On Abilify 10 mg daily - increased risk of PP depression, regular screening recommended - therapy as indicated History of cholecystectomy 09/24/2019 Morbid obesity with body mass index of 45.0-49.9 in adult 05/11/2019 BMI 47 10/29/2019 Obesity: The patient has a pre- BMI of >40, which is Obese - Early GCT ( completed, positive) - Growth assessment q 4 weeks (with GDM) - NST weekly at 36 weeks if not otherwise indicated - BMI > 40, if requires for delivery, post-operative thromboprophylaxis with Lovenox (40 mg SC daily) during hospitalization is recommended. - Total recommended weight gain: 20 lbs. Currently 3.311 kg (7 lb 4.8 oz) - Post Bariatrics referral - csm consultant for BMI Orthostatic lightheadedness 04/15/2019 RESOLVED 10/29/2019 History of section 08/10/2016 Plan of delivery to be determined with primary OB provider Herpes simplex of female genitalia 07/18/2016 - f/up date of last outbreak - 3rd trimester prophylaxis recommended. Asthma 11/30/2014 on Symbicort and Albuterol - 11/30/2019 Reports she is out of her steroid inhaler and needs to refill it, but having more symptoms as the seasons change / allergens. On day 3 of a prednisone taper (down to 20 mg today). - Does not have a home Peak Flow meter. Recommended getting one from primary MD / pharmacy for self monitoring. - Discussed need for prophylactic inhaled steroids and how to use them appropriately to decrease symptoms. Follow up: - Medication change: GDMA1, no medications. - Clinical follow up: Patient has scheduled f/up at primary OB for weekly testing. Follow up growth in 4 weeks. Follow up for blood sugar assessment in 2 weeks, as increases in fasting blood sugars observed, and now on PO steroids. The total patient time of the visit was 15 minutes, of which was greater than 50% of the time was spent counseling and coordinating care. Normal [facility] Progress Noteon 11-08-2019 Bridge Design Engineer Authentication Interface Message Text DIABETES AND PROGRAM COMANAGEMENT Referring/Requesting Provider: Yanira De La Rosa DO PCP: Rdaha Riojas MD CHIEF COMPLAINT: GDMA1 HISTORY OF PRESENT ILLNESS: Irvin is a 29 y.o. at 27w4d with GDMA1 on no meds. Blood glucose record was reviewed. Hyperglycemia is present in no values. She is doing well. OB History Para Term AB Living 2 1 1 1 SAB TAB Ectopic Multiple Live Births 1 # Outcome Date GA Lbr Lex/2nd Weight Sex Delivery Anes PTL Lv 2 Current 1 08/07/16 36w0d 2.381 kg F CS-LTranv EPI MIGUEL Comments: induced for IUGR Complications: Failure to Progress in Second Stage Past Medical History: Diagnosis Date Asthma Gestational diabetes 1 hour GCT 156;sent for consult from [place] to [facility] for Diabetes management based on history of GDM and Obesity A1c 5.2 on 07/21/2019 Gestational diabetes mellitus (GDM) History of delivery History of gestational diabetes History of herpes genitalis History of IUGR (intrauterine growth retardation) and stillbirth, currently on Baby ASA Mixed anxiety and depressive disorder on Celexa 20mg daily Morbid obesity bmi is 47 Subchorionic hematoma Uncomplicated asthma on Symbicort and Albuterol Past Surgical History: Procedure Laterality Date SECTION 08/07/2016 CHOLECYSTECTOMY 2015 COLONOSCOPY 2017 normal findings Outpatient Medications Marked as Taking for the 11/08/19 encounter (Office Visit) with Lisa Thrasher MD Medication Sig Dispense Refill albuterol 108 (90 Base) MCG/ACT inhaler INHAEL 2 PUFFS INTO THE LUNGH EVERY 6 HOURS NEEDED FOR WHEEZING ARIPiprazole (ABILIFY) 10 MG tablet Take by mouth daily aspirin 81 MG chewable tablet DAILY Blood Glucose Monitoring Suppl (TRUE METRIX METER) w/Device KIT use to TEST BLOOD SUGAR four times a day budesonide-formoterol (SYMBICORT) 160-4.5 MCG/ACT inhaler Inhale 2 Puffs into the lungs cetirizine (ZYRTEC) 10 MG tablet Take 10 mg by mouth daily Citalopram Hydrobromide (CELEXA) 40 MG tablet Take 20 mg by mouth daily TRUE METRIX BLOOD GLUCOSE TEST test strip use to TEST BLOOD SUGAR four times a day TRUEPLUS LANCETS 30G MISC use to TEST BLOOD SUGAR four times a day Vit w/Ud-Sgftvrnbl-MC (PNV PO) Take 1 Cap by mouth daily Allergies Allergen Reactions Bupropion Diarrhea Ceftriaxone Anaphylaxis and Hives per pt mother was 3yo Sulfamethoxazole-Trime thoprim Anaphylaxis PHYSICAL EXAM: VITAL SIGNS: BP 112/62 Ht 162.6 cm Wt (!) 122.9 kg (271 lb) LMP 04/03/2019 BMI 46.49 kg/m AAOx3, NAD IMAGING: see scan today IMPRESSION AND RECOMMENDATIONS: Irvin is a 29 y.o. at 27w4d with Active Non-Hospital Problems Diagnosis Date Noted Gestational diabetes mellitus (GDM) Dx by GCT 153, [facility] DAPP intake for [employer] 10/29/2019 - FSBS reviewed on follow up 11/07 100% within range - Met with Mill Controller, needs note for work for 15 minute break after dinner (works 2nd shift) - Q 4 week growth - If remains GDMA1 testing not required outside of other indications. If GDMA2, start BPP twice weekly at 32 weeks. - glucose screening - Increased risk of DM2 in next 5 - 10 years. Depressive disorder on Celexa 20mg daily On Abilify 10 mg daily - increased risk of PP depression, regular screening recommended - therapy as indicated History of cholecystectomy 09/24/2019 Morbid obesity with body mass index of 45.0-49.9 in adult 05/11/2019 BMI 47 10/29/2019 Obesity: The patient has a pre- BMI of >40, which is Obese - Early GCT ( completed, positive) - Growth assessment q 4 weeks (with GDM) - NST weekly at 36 weeks if not otherwise indicated - BMI > 40, if requires for delivery, post-operative thromboprophylaxis with Lovenox (40 mg SC daily) during hospitalization is recommended. - Post Bariatrics referral - csm consultant for BMI Orthostatic lightheadedness 04/15/2019 RESOLVED 10/29/2019 History of section 08/10/2016 Plan of delivery to be determined with primary OB provider Herpes simplex of female genitalia 07/18/2016 - f/up date of last outbreak - 3rd trimester prophylaxis recommended. Asthma 11/30/2014 on Symbicort and Albuterol - 10/29/2019 no active symptoms Follow up 1. She is going to upload her FSBS in 2 weeks, sooner if any concern that > 50% are above target otherwise we will see her at 4 weeks for her follow up growth. If continued GDMA1 okay to do further scans and testing as indicated (weekly if GDMA1 given BMI) or twice weekly if meds. The total patient time of the visit was 15 minutes, of which was greater than 50% of the time was spent counseling and coordinating care. Normal [facility] Progress Noteon 10-29-2019 Bridge Design Engineer Authentication Interface Message Text DIABETES AND PROGRAM COMANAGEMENT Referring/Requesting Provider: Yanira De La Rosa DO PCP: Radha Riojas MD CHIEF COMPLAINT: GDMA1 HISTORY OF PRESENT ILLNESS: Irvin is a 29 y.o. at 26w1d with GDMA1 on diet control. Blood glucose record was not reviewed in person today. Hyperglycemia is not present by patient report. The patient works 2nd shift and eats dinner at work at 7-8 pm. She does not get a break in the evening and her shift ends at 10 pm. She is requesting a note for her employer stating she needs a 15 minute break after dinner to get a snack worked into her meal plan. Early GCT 153, A1c 5.2% The patient was GDMA1 in prior . is also complicated by BMI 47 (severe obesity), h/o anxiety depression (on medications), h/o IUGR in prior and h/o in prior . Her intention for delivery for this is undecided. 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 M/S - occasional back pain, denies leg cramps. - no VB, LOF Otherwise negative as reviewed in HPI. OB History Para Term AB Living 2 1 1 1 SAB TAB Ectopic Multiple Live Births 1 # Outcome Date GA Lbr Lex/2nd Weight Sex Delivery Anes PTL Lv 2 Current 1 08/07/16 36w0d F CS-LTranv EPI MIGUEL Comments: induced for IUGR Complications: Failure to Progress in Second Stage Past Medical History: Diagnosis Date Asthma Gestational diabetes 1 hour GCT 156;sent for consult from [facility] to [facility] for Diabetes management based on history of GDM and Obesity A1c 5.2 on 07/21/2019 Gestational diabetes mellitus (GDM) History of delivery History of gestational diabetes History of herpes genitalis History of IUGR (intrauterine growth retardation) and stillbirth, currently on Baby ASA Mixed anxiety and depressive disorder on Celexa 20mg daily Morbid obesity bmi is 47 Subchorionic hematoma Uncomplicated asthma on Symbicort and Albuterol Past Surgical History: Procedure Laterality Date SECTION 08/07/2016 CHOLECYSTECTOMY 2014 COLONOSCOPY 2017 normal findings Outpatient Medications Marked as Taking for the 10/29/19 encounter (Office Visit) with Silke Valentin MD Medication Sig Dispense Refill albuterol 108 (90 Base) MCG/ACT inhaler INHAEL 2 PUFFS INTO THE LUNGH EVERY 6 HOURS NEEDED FOR WHEEZING ARIPiprazole (ABILIFY) 10 MG tablet Take by mouth daily aspirin 81 MG chewable tablet DAILY Blood Glucose Monitoring Suppl (TRUE METRIX METER) w/Device KIT use to TEST BLOOD SUGAR four times a day budesonide-formoterol (SYMBICORT) 160-4.5 MCG/ACT inhaler Inhale 2 Puffs into the lungs cetirizine (ZYRTEC) 10 MG tablet Take 10 mg by mouth daily Citalopram Hydrobromide (CELEXA) 40 MG tablet Take 20 mg by mouth daily TRUE METRIX BLOOD GLUCOSE TEST test strip use to TEST BLOOD SUGAR four times a day TRUEPLUS LANCETS 30G MISC use to TEST BLOOD SUGAR four times a day Vit w/Uk-Ebpmvfxfl-HH (PNV PO) Take 1 Cap by mouth daily Allergies Allergen Reactions Bupropion Diarrhea Ceftriaxone Anaphylaxis and Hives per pt mother was 3yo Sulfamethoxazole-Trime thoprim Anaphylaxis PHYSICAL EXAM: VITAL SIGNS: BP 113/58 LMP 04/03/2019 AAOx3, NAD CV - RRR Abd - morbidly obese, well healed prior abdominal incision R - No excess work of breathing, no wheezing, no cough Ext - no evidence of ulcers or edema Skin - multiple well healed tattoos, no rashes Gen / Psych - appropriate mood and affect. IMAGIN. Single living intrauterine at with biometry consistent with clinical dates. 2. Anatomic survey was limited. However, no gross anomalies were identified. Limited structures were noted above. 3. Amniotic fluid appeared normal. 4. Placenta is posterior, grade 1 without evidence of previa. EFW 844g Consultation: Obesity: The patient has a pre- BMI of 46, which is Morbidly Obese Obesity increases the risk of many complications including spontaneous miscarriage, congenital anomalies (even without comorbid diabetes mellitus), macrosomia, gestational and type 2 diabetes, hypertension and preeclampsia, stillbirth, and delivery. [place] weight gain for this patient in this is between 11-20 pounds. Similarly, an early GCT should be performed with early labs and again at the time of standard GCT testing if initially negative screen. With a BMI > 35, growth assessment is recommended at 36 weeks and NST/BPP weekly at 36 weeks. Should she require a for delivery and her BMI is > 40, post-operative thromboprophylaxis with Lovenox during the hospitalization is recommended. GESTATIONAL DIABETES COUNSELING GLUCOSE MONITORING Target plasma blood glucose values in are less than 95 mg/dL fasting, and less than 120 mg/dL at 2 hour postprandially or 140 mg/dL at 1 hour postprandially. Medical therapy for glycemic control is indicated if target values are not achieved after 1-2 weeks of dietary therapy, and could include oral hypoglycemic agents such as glyburide/metformin or insulin therapy. We discussed insulin treatment as the gold standard treatment for diabetes in . Oral agents cross the placenta and lack lobsterman safety data on effects of the medication. ACOG recommends against using glyburide as a first line treatment because of higher incidence LGA fetuses and shoulder dystocia. Metformin is associated with more frequent treatment failure than glyburide, and need for later insulin therapy. Exercise improves maternal glucose tolerance. I recommend a 30min brisk walk after her biggest meal daily or 10-15 min walks after each meal daily. MATERNAL RISKS Insulin resistance places women at higher risk for preeclampsia. Those with gestational diabetes are also at higher risk of developing diabetes in their lifetime outside of . A 2-hour oral, 75g glucose tolerance test at 6 weeks should be completed to clarify a diagnosis of preexisting diabetes. Screening for diabetes should be performed every 1-3 years by the primary care physician. AND RISKS Diabetes in increases risk of macrosomia, with associated injuries including nerve palsies, fractures and cephalohematoma. Macrosomia increases the need for delivery and has been linked to the development of adolescent obesity and later development of Type 2 diabetes in offspring of affected mothers. Glycemic control is important to reducing these risks. morbidities among infants of diabetic mothers include hypoglycemia, hyperbilirubinemia, and metabolic instability. In addition, respiratory distress can result from delayed lung maturity. Intrapartum glycemic control to maintain maternal glucose levels within a narrow range (between 80-110 mg/dL) reduces risks of asphyxia and hypoglycemia. Close monitoring of the is necessary. H/o Growth Restriction: Abnormalities in growth consistent with intrauterine growth restriction (IUGR) were noted on ultrasound during the prior . There are multiple potential causes for growth to measure < 10%, including: inappropriate dating, aneuploidy or genetic disorders, infections, and placental insufficiency. Maternal size, race, and ethnicity may also have significant impact on the growth potential of a fetus. In her case, the patient had multiple risk factors for IUGR in her prior . A mother with IUGR has an increased risk in future pregnancies of recurrent IUGR, preeclampsia, abruption and/or stillbirth. Infants affected by growth restriction e.g. weight percentile < 3% or 3 or more of: BW < 10%, head circumference < 10%, Length < 10%, diagnosis of IUGR, +\- history of conditions associated with IUGR (maternal HTN, preeclampsia, or congenital infection) are at increased risk of poor health outcomes. Affected infants are at increased risk of poor childhood growth and neurodevelopmental abnormalities, as well as the development of adult coronary artery disease, hypertension, and chronic kidney disease. IMPRESSION AND RECOMMENDATIONS: Irvin is a 29 y.o. 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 If GDMA2, start BPP twice weekly at 32 weeks. - glucose screening - Increased risk of DM2 in next 5 - 10 years. Depressive disorder on Celexa 20mg daily On Abilify 10 mg daily - increased risk of PP depression, regular screening recommended - therapy as indicated History of cholecystectomy 09/24/2019 Morbid obesity with body mass index of 45.0-49.9 in adult 05/11/2019 BMI 47 10/29/2019 Obesity: The patient has a pre- BMI of >40, which is Obese - Early GCT ( completed, positive) - Growth assessment q 4 weeks (with GDM) - NST weekly at 36 weeks if not otherwise indicated - BMI > 40, if requires for delivery, post-operative thromboprophylaxis with Lovenox (40 mg SC daily) during hospitalization is recommended. - Post Bariatrics referral - csm consultant for BMI Orthostatic lightheadedness 04/15/2019 RESOLVED 10/29/2019 History of section 08/10/2016 Plan of delivery to be determined with primary OB provider Herpes simplex of female genitalia 07/18/2016 - f/up date of last outbreak - 3rd trimester prophylaxis recommended. Asthma 11/30/2014 on Symbicort and Albuterol - 10/29/2019 no active symptoms Follow up scheduled in 2 weeks for limited anatomy. Follow up 1 week for FSBG review. The total patient time of the visit was 40 minutes, of which was greater than 50% of the time was spent counseling and coordinating care. Normal [facility] Echocardiogram completeon TRANSTHORACIC ECHOCARDIOGRAM PATIENT: Irvin Kline STUDY DATE: 04/21/2019 : 1990 AGE: 29 HT/WT: 162.6 cm (64 117.9 kg in) (259.4 lb) GENDER: F BP: 113 / 56 LOCATION: [facility] PATIENT Outpatient [facility] STATUS: [facility] *ORDERING PHYSICIAN: * Jose Alfredo King MD *READING PHYSICIAN: * Raffaele *CEMETERY VAULT INSTALLER: * Desiree Crane MD RDCS, AE ----- INDICATIONS: Orthostatic hypotension. ----- CONCLUSIONS SUMMARY: 1. Left ventricle: The cavity size is normal. Wall thickness is normal. Systolic function is normal by visual assessment. The estimated ejection fraction is 55%. 2. No significant valve disease. ----- STUDY DATA: Complete transthoracic echocardiogram. Procedure: Image quality was fair. The study was technically limited due to poor acoustic window availability. Intravenous imaging enhancement (Definity) was administered to opacify the chamber. Definity lot #: [id number]. M-mode, complete 2D, complete spectral Doppler, and color flow Doppler images were acquired and archived for permanent storage and are available for subsequent review. Study status: Routine. Patient status: Outpatient. ----- FINDINGS LEFT VENTRICLE: The cavity size is normal. Wall thickness is normal. Systolic function is normal by visual assessment. The estimated ejection fraction is 55%. There are no regional wall motion abnormalities. RIGHT VENTRICLE: The cavity size is normal. Wall thickness is normal. Systolic function is normal. Right ventricular systolic pressure is within the normal range. VENTRICULAR SEPTUM: There is no evidence of a ventricular septal defect. LEFT ATRIUM: The atrium is normal in size. RIGHT ATRIUM: The atrium is normal in size. ATRIAL SEPTUM: Color Doppler shows no shunt. MITRAL VALVE: Structurally normal valve. Doppler: There is no regurgitation. The peak diastolic gradient is 4 mm Hg. AORTIC VALVE: Structurally normal valve. Trileaflet. Doppler: There is no regurgitation. TRICUSPID VALVE: Structurally normal valve. Doppler: There is trivial, less than 1+ regurgitation. PULMONIC VALVE: Structurally normal valve. Doppler: There is trivial, less than 1+ regurgitation. AORTA: The aorta is normal. PULMONARY ARTERY: Main pulmonary artery: Normal. PERICARDIUM: There is no pericardial effusion. SYSTEMIC VEINS: Inferior vena cava: The vessel is normal. The IVC collapses by greater than 50% with inspiration. ----- Measurements Value Reference Aortic root ID 2.6 cm <4.1 Aortic root ID, STJ, ED 2.0 cm 2.0 - 3.2 Aortic root ID/bsa, STJ, ED (L) 0.9 cm/m^2 1.1 - 1.9 Value Reference Ascending aorta ID 2.5 cm 1.9 - 3.5 Ascending aorta ID/bsa, A-P 1.1 cm/m^2 1.0 - 2.2 Left ventricle Value Reference LV ID, ED (H) 5.5 cm 3.8 - 5.2 LV ID, ES (H) 3.8 cm 2.2 - 3.5 LV ID/bsa, ED 2.3 cm/m^2 2.3 - 3.1 LV ID/bsa, ES 1.6 cm/m^2 1.3 - 2.1 LV PW thickness, ED 0.9 cm 0.6 - 0.9 LV PW/LV ID ratio, ED 0.16 --------- LV wall mass (H) 163 g 66 - 150 LV wall mass/bsa 69 g/m^2 44 - 88 Stroke volume/bsa, 1-p A2C 34.9 ml/m^2 --------- LV end-diastolic volume, 1-p A4C (H) 161 ml 48 - 140 LV end-systolic volume, 1-p A4C (H) 65 ml 12 - 60 LV end-diastolic volume, 2-p (H) 152 ml 46 - 106 LV end-systolic volume, 2-p (H) 64 ml 14 - 42 LV ejection fraction, 2-p 58 % 54 - 74 LV E/e', lateral 5.2 --------- LV E/e', medial 7.5 --------- LV E/e', average 6.1 --------- Ventricular septum Value Reference IVS thickness, ED 0.8 cm 0.6 - 0.9 LVOT Value Reference LVOT ID, A-P 2.2 cm --------- LVOT mean velocity, S 0.8 m/sec --------- LVOT peak gradient, S 4 mm Hg --------- Stroke volume (SV), LVOT DP 94 ml --------- Stroke index (SV/bsa), LVOT DP 40 ml/m^2 --------- Left atrium Value Reference LA volume/bsa, ES, 2-p 29 ml/m^2 16 - 34 Mitral valve Value Reference Mitral E-wave peak velocity 0.9 m/sec --------- Mitral A-wave peak velocity 0.4 m/sec --------- Mitral deceleration time 169 ms --------- Mitral peak gradient, D 4 mm Hg --------- Mitral E/A ratio, peak 2.6 --------- Right atrium Value Reference RA area, ES, A4C 17 cm^2 10 - 18 Systemic veins Value Reference Estimated RAP 3 mm Hg --------- Right ventricle Value Reference RV ID, minor axis, ED, A4C base 3.0 cm 2.5 - 4.1 RV ID, minor axis, ED, A4C mid 2.2 cm 1.9 - 3.5 TAPSE, 2D 1.9 cm 1.7 - 3.1 Legend: (L) and (H) kinsey values outside specified reference range. Electronically signed by Raffaele Crane MD 04/21/2019 10:21 Prior Signatures: [facility] Incoming Cardiology Results From [place] - 04/21/2019 10:22 AM EST TRANSTHORACIC ECHOCARDIOGRAM PATIENT: Irvin Kline STUDY DATE: 04/21/2019 : 1990 AGE: 29 HT/WT: 162.6 cm (64 117.9 kg in) (259.4 lb) GENDER: F BP: 113 / 56 LOCATION: [facility] PATIENT Outpatient [facility] STATUS: [facility] Center *ORDERING PHYSICIAN: * JoseA lfredo King MD *READING PHYSICIAN: * Raffaele *CEMETERY VAULT INSTALLER: * Desiree Crane MD [facility], [facility] ----- INDICATIONS: Orthostatic hypotension. ----- CONCLUSIONS SUMMARY: 1. Left ventricle: The cavity size is normal. Wall thickness is normal. Systolic function is normal by visual assessment. The estimated ejection fraction is 55%. 2. No significant valve disease. ----- STUDY DATA: Complete transthoracic echocardiogram. Procedure: Image quality was fair. The study was technically limited due to poor acoustic window availability. Intravenous imaging enhancement (Definity) was administered to opacify the chamber. Definity lot #: [id number]. M-mode, complete 2D, complete spectral Doppler, and color flow Doppler images were acquired and archived for permanent storage and are available for subsequent review. Study status: Routine. Patient status: Outpatient. ----- FINDINGS LEFT VENTRICLE: The cavity size is normal. Wall thickness is normal. Systolic function is normal by visual assessment. The estimated ejection fraction is 55%. There are no regional wall motion abnormalities. RIGHT VENTRICLE: The cavity size is normal. Wall thickness is normal. Systolic function is normal. Right ventricular systolic pressure is within the normal range. VENTRICULAR SEPTUM: There is no evidence of a ventricular septal defect. LEFT ATRIUM: The atrium is normal in size. RIGHT ATRIUM: The atrium is normal in size. ATRIAL SEPTUM: Color Doppler shows no shunt. MITRAL VALVE: Structurally normal valve. Doppler: There is no regurgitation. The peak diastolic gradient is 4 mm Hg. AORTIC VALVE: Structurally normal valve. Trileaflet. Doppler: There is no regurgitation. TRICUSPID VALVE: Structurally normal valve. Doppler: There is trivial, less than 1+ regurgitation. PULMONIC VALVE: Structurally normal valve. Doppler: There is trivial, less than 1+ regurgitation. AORTA: The aorta is normal. PULMONARY ARTERY: Main pulmonary artery: Normal. PERICARDIUM: There is no pericardial effusion. SYSTEMIC VEINS: Inferior vena cava: The vessel is normal. The IVC collapses by greater than 50% with inspiration. ----- Measurements Value Reference Aortic root ID 2.6 cm <4.1 Aortic root ID, STJ, ED 2.0 cm 2.0 - 3.2 Aortic root ID/bsa, STJ, ED (L) 0.9 cm/m^2 1.1 - 1.9 Value Reference Ascending aorta ID 2.5 cm 1.9 - 3.5 Ascending aorta ID/bsa, A-P 1.1 cm/m^2 1.0 - 2.2 Left ventricle Value Reference LV ID, ED (H) 5.5 cm 3.8 - 5.2 LV ID, ES (H) 3.8 cm 2.2 - 3.5 LV ID/bsa, ED 2.3 cm/m^2 2.3 - 3.1 LV ID/bsa, ES 1.6 cm/m^2 1.3 - 2.1 LV PW thickness, ED 0.9 cm 0.6 - 0.9 LV PW/LV ID ratio, ED 0.16 --------- LV wall mass (H) 163 g 66 - 150 LV wall mass/bsa 69 g/m^2 44 - 88 Stroke volume/bsa, 1-p A2C 34.9 ml/m^2 --------- LV end-diastolic volume, 1-p A4C (H) 161 ml 48 - 140 LV end-systolic volume, 1-p A4C (H) 65 ml 12 - 60 LV end-diastolic volume, 2-p (H) 152 ml 46 - 106 LV end-systolic volume, 2-p (H) 64 ml 14 - 42 LV ejection fraction, 2-p 58 % 54 - 74 LV E/e', lateral 5.2 --------- LV E/e', medial 7.5 --------- LV E/e', average 6.1 --------- Ventricular septum Value Reference IVS thickness, ED 0.8 cm 0.6 - 0.9 LVOT Value Reference LVOT ID, A-P 2.2 cm --------- LVOT mean velocity, S 0.8 m/sec --------- LVOT peak gradient, S 4 mm Hg --------- Stroke volume (SV), LVOT DP 94 ml --------- Stroke index (SV/bsa), LVOT DP 40 ml/m^2 --------- Left atrium Value Reference LA volume/bsa, ES, 2-p 29 ml/m^2 16 - 34 Mitral valve Value Reference Mitral E-wave peak velocity 0.9 m/sec --------- Mitral A-wave peak velocity 0.4 m/sec --------- Mitral deceleration time 169 ms --------- Mitral peak gradient, D 4 mm Hg --------- Mitral E/A ratio, peak 2.6 --------- Right atrium Value Reference RA area, ES, A4C 17 cm^2 10 - 18 Systemic veins Value Reference Estimated RAP 3 mm Hg --------- Right ventricle Value Reference RV ID, minor axis, ED, A4C base 3.0 cm 2.5 - 4.1 RV ID, minor axis, ED, A4C mid 2.2 cm 1.9 - 3.5 TAPSE, 2D 1.9 cm 1.7 - 3.1 Legend: (L) and (H) kinsey values outside specified reference range. Electronically signed by Raffaele Crane MD 04/21/2019 10:21 Prior Signatures: [place], [place] HCG Qualitative, Serumon hCG Qual Negative m[IU]/mL [place], [place] Comment on above: REF RANGE: Negative .... < 3 Questionable Rpt 48-72 Hr Positive ..... > 10 Test Performed by [facility], [address] [place] [address] Rd. , [address] Urinalysison 12-22-2018 Appearance (U) Clear Clear NA [place], [place] Bacteria, UA Moderate (6-50) Negative /[HPF] [place] Bilirubin Urine Negative Negative mg/dL [place] Color (U) LIGHT YELLOW Lt. Yellow NA [place], [place] Glucose, Ur Normal Normal (<70) mg/dL [place] Ketones Ql (U) Negative Negative mg/dL [place] LEUKOCYTES, UA 250 Negative Mark/uL [place] Nitrite, Urine Negative Negative NA [place] Occult Blood,Urine Negative Negative mg/dL [place] pH (U) 6.0 [pH] [place] Protein (U) [Mass/Vol] Negative Negative mg/dL [place] RBC (U) [#/Vol] Negative 0 - 2 /[HPF] [place], [place] Specific [place], Urine 1.028 [place] Squam Epithel, UA 3-5 3 - 5 /[HPF] [place] Urobilinogen, Urine Normal Normal ( 0-1) mg/dL [place] Volume 12 ml [place] WBC, UA 11- 0 - 5 /[HPF] [place], [place] Test Performed by [facility], [address] , [address] Basic Metabolic Panelon 11- Anion gap [Moles/Vol] 11 mmol/L [place] Calcium [Mass/Vol] 10.3 mg/dL 8.4 - 10. 4 mg/dL [place] Chloride [Moles/Vol] 102 mmol/L 98 - 10 7 mmol/L [place] CO2 [Moles/Vol] 25 mmol/L 22 - 30 mmol/L [place] Creatinine [Mass/Vol] 0.82 mg/dL 0.52 - 1.25 mg/dL [place] EGFR IF NonAfrican Prydeinig >60.0 >60 mL/min [place] Comment on above: Source- MDRD equatio n with creatinine calibration to IDMS(NKDEP) eGFR not recommended for drug dose adjustment GFR/1.73 sq M predicted among blacks MDRD (S/P/Bld) [Vol rate/Area] mL/min/{1.73_m2} >60 mL/min [place] Glucose [Mass/Vol] 87 mg/dL 70 - 100 mg/dL [place] Interpretation and review of laboratory results Abnormal [place] Potassium [Moles/Vol] 3.6 mmol/L 3.5 - 5.1 mmol/L [place] Sodium [Moles/Vol] 139 mmol/L 135 - 145 mmol/L [place] Urea nitrogen [Mass/Vol] 22 mg/dL High 7 - 20 mg/dL [place] Test Performed by [facility], [address] , [address] Hemogram (CBC) w/Auto Diffon 12-21-2018 Absolute Baso # 0.0 10*3/uL 0 - 0.2 10*3/uL [place] Absolute Neut # 9.9 10*3/uL High 1.8 - 7 10*3/uL [place] Basophils/100 WBC (Bld) 0.2 % 0 - 2 % [place] Eosinophils (Bld) [#/Vol] 0.6 10*3/uL High 0 - 0.5 10*3/uL [place] Eosinophils/100 WBC (Bld) 4.0 % 1 - 6 % [place] Erythrocyte distribution width (RBC) [Ratio] 13.7 % 11.5 - 14.5 % [place] Granulocytes/100 WBC (Bld) 70.4 % 40 - 80 % [place] Hematocrit (Bld) [Volume fraction] 41.3 % 35 - 47 % [place] Hemoglobin (Bld) [Mass/Vol] 13.5 g/dL 11.7 - 16 g/dL [place] Interpretation and review of laboratory results Abnormal [place] Lymphocytes (Bld) [#/Vol] 2.9 10*3/uL 1 - 4.3 10*3/uL [place] Lymphocytes/100 WBC (Bld) 20.5 % 20 - 40 % [place] MCH (RBC) [Entitic mass] 27.7 pg 26 - 34 pg [place] MCHC (RBC) [Mass/Vol] 32.8 % 32 - 36 % [place] MCV (RBC) [Entitic vol] 84.3 fL 79 - 98 fL [place] Monocytes (Bld) [#/Vol] 0.7 10*3/uL 0 - 0.8 10*3/uL [place] Monocytes/100 WBC (Bld) 4.9 % 2 - 10 % [place] Platelet mean volume (Bld) [Entitic vol] 8.1 fL 7.4 - 10.4 fL [place] Platelets (Bld) [#/Vol] 320 10*3/uL 140 - 440 10*3/uL [place] RBC (Bld) [#/Vol] 4.90 10*6/uL 3.8 - 5.2 10*6/uL [facility] [place], [place] WBC (Bld) [#/Vol] 14.0 10*3/uL High 3.6 - 10.7 10*3/uL [facility], [place] Test Performed by [facility], [facility] Lisa Cannon , [place], [place] [id number] [place] [address], [place] Vital Signs Date Time Vital Sign Value Performing Clinician Facility 06-02-2024 14:10-0400 Body mass index (BMI) [Ratio] 44.69 kg/m2 Dylan Topete MD Work Phone: [facility] [place] [facility] 06-02-2024 14:10-0400 Body weight 118.1 kg Dylan Topete MD Work Phone: [facility] [place] [facility] 06-02-2024 14:10-0400 Diastolic blood pressure 61 mm[Hg] Dylan Topete MD Work Phone: [facility] [place] [facility] 06-02-2024 14:10-0400 Heart rate 74 /min Dylan Topete MD Work Phone: [facility] [place] [facility] 06-02-2024 14:10-0400 Systolic blood pressure 117 mm[Hg] Dylan Topete MD Work Phone: [facility] [place] [facility] 05-12-2024 19:08-0400 Body mass index (BMI) [Ratio] 43.22 kg/m2 Neil Swank GOLF PLAYER ASSISTANT.ACCOUNTS PAYABLE ASSOCIATE Work Phone: [facility] [place] [facility] 05-12-2024 19:08-0400 Body temperature 98.4 [degF] Neil Swank GOLF PLAYER ASSISTANT.ACCOUNTS PAYABLE ASSOCIATE Work Phone: [facility] [place] [facility] 05-12-2024 19:08-0400 Body weight 114.2 kg Neil Swank GOLF PLAYER ASSISTANT.ACCOUNTS PAYABLE ASSOCIATE Work Phone: [facility] [place] [facility] 05-12-2024 19:08-0400 Diastolic blood pressure 80 mm[Hg] Neil Swank GOLF PLAYER ASSISTANT.ACCOUNTS PAYABLE ASSOCIATE Work Phone: [facility] [place] [facility] 05-12-2024 19:08-0400 Heart rate 70 /min Neil Swank GOLF PLAYER ASSISTANT.ACCOUNTS PAYABLE ASSOCIATE Work Phone: [facility] [place] [facility] 05-12-2024 19:08-0400 Respiratory rate 18 /min Neil Swank GOLF PLAYER ASSISTANT.ACCOUNTS PAYABLE ASSOCIATE Work Phone: [facility] [place] [facility] 05-12-2024 19:08-0400 SaO2% (BldA) [Mass fraction] 96 % Neil Swank GOLF PLAYER ASSISTANT.ACCOUNTS PAYABLE ASSOCIATE Work Phone: [facility] [place] [facility] 05-12-2024 19:08-0400 Systolic blood pressure 118 mm[Hg] Neil Swank GOLF PLAYER ASSISTANT.ACCOUNTS PAYABLE ASSOCIATE Work Phone: [facility] [place] [facility] 03-09-2024 13:54-0500 Body height 162.6 cm Robson Zuniga MD Work Phone: [facility] [place] [facility] 03-09-2024 13:54-0500 Body mass index (BMI) [Ratio] 43.26 kg/m2 Robson Zuniga MD Work Phone: [facility] [place] [facility] 03-09-2024 13:54-0500 Body temperature 98.2 [degF] Robson Zuniga MD Work Phone: [facility] [place] [facility] 03-09-2024 13:54-0500 Body weight 114.31 kg Robson Zuniga MD Work Phone: [facility] [place] [facility] 03-09-2024 13:54-0500 Diastolic blood pressure 81 mm[Hg] Robson Zuniga MD Work Phone: [facility] [place] [facility] 03-09-2024 13:54-0500 Heart rate 86 /min Robson Zuniga MD Work Phone: [facility] [place] [facility] 03-09-2024 13:54-0500 Respiratory rate 16 /min Robson Zuniga MD Work Phone: [facility] [place] [facility] 03-09-2024 13:54-0500 SaO2% (BldA) [Mass fraction] 99 % Robson Zuniga MD Work Phone: [facility] [place] [facility] 03-09-2024 13:54-0500 Systolic blood pressure 132 mm[Hg] Robson Zuniga MD Work Phone: [facility] [place] [facility] 11-06-2023 08:39-0400 Body mass index (BMI) [Ratio] 43.1 kg/m2 Dylan Topete MD Work Phone: [facility] [place] [facility] 11-06-2023 08:39-0400 Body weight 113.9 kg Dylan Topete MD Work Phone: [facility] [place] [facility] 11-06-2023 08:39-0400 Diastolic blood pressure 78 mm[Hg] Dylan Topete MD Work Phone: [facility] [place] [facility] 11-06-2023 08:39-0400 Heart rate 84 /min Dylan Topete MD Work Phone: [facility] [place] [facility] 11-06-2023 08:39-0400 Systolic blood pressure 118 mm[Hg] Dylan Topete MD Work Phone: [facility] [place] [facility] 08-26-2023 13:20-0400 Body height 162.6 cm Mari Slabaugh PA-C Work Phone: [facility] [place] [facility] 08-26-2023 13:20-0400 Body mass index (BMI) [Ratio] 43.01 kg/m2 Mari Slabaugh PA-C Work Phone: [facility] [place] [facility] 08-26-2023 13:20-0400 Body weight 113.65 kg Mari Slabaugh PA-C Work Phone: [facility] [place] [facility] 08-26-2023 13:20-0400 Diastolic blood pressure 76 mm[Hg] Mari Slabaugh PA-C Work Phone: [facility] [place] [facility] 08-26-2023 13:20-0400 Heart rate 77 /min Mari Slabaugh PA-C Work Phone: [facility] [place] [facility] 08-26-2023 13:20-0400 Respiratory rate 16 /min Mari Slabaugh PA-C Work Phone: [facility] [place] [facility] 08-26-2023 13:20-0400 SaO2% (BldA) [Mass fraction] 98 % Mari Slabaugh PA-C Work Phone: [facility] [place] [facility] 08-26-2023 13:20-0400 Systolic blood pressure 106 mm[Hg] Mari Slabaugh PA-C Work Phone: [facility] [place] [facility] 08-06-2023 10:47-0400 Body height 162.6 cm Krystle Alexis GOLF PLAYER ASSISTANT.ACCOUNTS PAYABLE ASSOCIATE Work Phone: [facility] [place] [facility] 08-06-2023 10:47-0400 Body mass index (BMI) [Ratio] 43.1 kg/m2 Krystle Alexis GOLF PLAYER ASSISTANT.ACCOUNTS PAYABLE ASSOCIATE Work Phone: [facility] [place] [facility] 08-06-2023 10:47-0400 Body temperature 97.9 [degF] Krystle Alexis GOLF PLAYER ASSISTANT.ACCOUNTS PAYABLE ASSOCIATE Work Phone: [facility] [place] [facility] 08-06-2023 10:47-0400 Body weight 113.9 kg Krystle Alexis GOLF PLAYER ASSISTANT.ACCOUNTS PAYABLE ASSOCIATE Work Phone: [facility] [place] [facility] 08-06-2023 10:47-0400 Diastolic blood pressure 73 mm[Hg] Krystle Alexis GOLF PLAYER ASSISTANT.ACCOUNTS PAYABLE ASSOCIATE Work Phone: [facility] [place] [facility] 08-06-2023 10:47-0400 Heart rate 72 /min Krystle Alexis GOLF PLAYER ASSISTANT.ACCOUNTS PAYABLE ASSOCIATE Work Phone: [facility] [place] [facility] 08-06-2023 10:47-0400 SaO2% (BldA) [Mass fraction] 97 % Krystle Alexis GOLF PLAYER ASSISTANT.ACCOUNTS PAYABLE ASSOCIATE Work Phone: [facility] [place] [facility] 08-06-2023 10:47-0400 Systolic blood pressure 112 mm[Hg] Krystle Alexis GOLF PLAYER ASSISTANT.ACCOUNTS PAYABLE ASSOCIATE Work Phone: [facility] [place] [facility] 05-23-2023 16:16-0400 Body temperature 99.5 [degF] Iglesia Stevenson PA-C Work Phone: [facility] [place] [facility] 05-23-2023 16:16-0400 Diastolic blood pressure 92 mm[Hg] Iglesia Stevenson PA-C Work Phone: [facility] [place] [facility] 05-23-2023 16:16-0400 Heart rate 100 /min Iglesia Stevenson PA-C Work Phone: [facility] [place] [facility] 05-23-2023 16:16-0400 Respiratory rate 16 /min Iglesia Elva PA-C Work Phone: [facility] [place] [facility] 05-23-2023 16:16-0400 SaO2% (BldA) [Mass fraction] 93 % Iglesia Stevesnon PA-C Work Phone: [facility] [place] [facility] 05-23-2023 16:16-0400 Systolic blood pressure 130 mm[Hg] Iglesia Stevenson PA-C Work Phone: [facility] [place] [facility] 05-21-2023 16:55-0400 Body temperature 98.71 [degF] Donald Kohara DO Work Phone: [facility] [place] [facility] 05-21-2023 16:55-0400 Body weight 125 kg Donald Kohara DO Work Phone: [facility] [place] [facility] 05-21-2023 16:55-0400 Diastolic blood pressure 70 mm[Hg] Donald Kohara DO Work Phone: [facility] [place] [facility] 05-21-2023 16:55-0400 Heart rate 80 /min Donald Kohara DO Work Phone: [facility] [place] [facility] 05-21-2023 16:55-0400 Respiratory rate 16 /min Donald Kohara DO Work Phone: [facility] [place] [facility] 05-21-2023 16:55-0400 SaO2% (BldA) [Mass fraction] 98 % Donald Kohara DO Work Phone: [facility] [place] [facility] 05-21-2023 16:55-0400 Systolic blood pressure 122 mm[Hg] Donald Kohara DO Work Phone: [facility] [place] [facility] 05-20-2023 09:21-0400 Body height 162.6 cm Krystle Alexis GOLF PLAYER ASSISTANT.ACCOUNTS PAYABLE ASSOCIATE Work Phone: [facility] [place] [facility] 05-20-2023 09:21-0400 Body temperature 98.2 [degF] Krystle Alexis GOLF PLAYER ASSISTANT.ACCOUNTS PAYABLE ASSOCIATE Work Phone: [facility] [place] [facility] 05-20-2023 09:21-0400 Body weight 125.7 kg Krystle Alexis GOLF PLAYER ASSISTANT.ACCOUNTS PAYABLE ASSOCIATE Work Phone: [facility] [place] [facility] 05-20-2023 09:21-0400 Diastolic blood pressure 76 mm[Hg] Krystle Espinoza GOLF PLAYER ASSISTANT.ACCOUNTS PAYABLE ASSOCIATE Work Phone: [facility] [place] [facility] 05-20-2023 09:21-0400 Heart rate 64 /min Krystle Espinoza GOLF PLAYER ASSISTANT.ACCOUNTS PAYABLE ASSOCIATE Work Phone: [facility] [place] [facility] 05-20-2023 09:21-0400 SaO2% (BldA) [Mass fraction] 97 % Krystle Espinoza GOLF PLAYER ASSISTANT.ACCOUNTS PAYABLE ASSOCIATE Work Phone: [facility] [place] [facility] 05-20-2023 09:21-0400 Systolic blood pressure 115 mm[Hg] Krystle Espinoza GOLF PLAYER ASSISTANT.ACCOUNTS PAYABLE ASSOCIATE Work Phone: [facility] [place] [facility] 04-29-2023 15:02-0400 Body weight 125 kg Dylan Topete MD Work Phone: [facility] [place] [facility] 04-29-2023 15:02-0400 Diastolic blood pressure 70 mm[Hg] Dylan Topete MD Work Phone: [facility] [place] [facility] 04-29-2023 15:02-0400 Heart rate 76 /min Dylan Topete MD Work Phone: [facility] [place] [facility] 04-29-2023 15:02-0400 Systolic blood pressure 130 mm[Hg] Dylan Topete MD Work Phone: [facility] [place] [facility] 04-11-2023 11:29-0500 Diastolic blood pressure 56 mm[Hg] DR CAROLINA GILL MD [facility] 04-11-2023 11:29-0500 Heart rate 68 /min DR CAROLINA GILL MD [facility] 04-11-2023 11:29-0500 Respiratory rate 18 /min DR CAROLINA GILL MD [facility] 04-11-2023 11:29-0500 Systolic blood pressure 118 mm[Hg] DR CAROLINA GILL MD [facility] 04-11-2023 11:00-0500 Diastolic Blood Pressure Non-Invasive 60 mm[Hg] DR CAROLINA GILL MD [facility] 04-11-2023 11:00-0500 Heart rate 65 /min DR CAROLINA GILL MD [facility] 04-11-2023 11:00-0500 Respiratory rate 16 /min DR CAROLINA GILL MD [facility] 04-11-2023 11:00-0500 Systolic Blood Pressure Non-Invasive 114 mm[Hg] DR CAROLINA GILL MD [facility] 04-11-2023 10:12-0500 Body height 162.[address] CAROLINA GILL MD [facility] 04-11-2023 10:12-0500 Body temperature 98.24 [degF] DR CAROLINA GILL MD [facility] 04-11-2023 10:12-0500 Body weight 127.[address] CAROLINA GILL MD [facility] 04-11-2023 10:12-0500 Diastolic Blood Pressure Non-Invasive 69 mm[Hg] DR CAROLINA GILL MD [facility] 04-11-2023 10:12-0500 Heart rate 72 /min DR CAROLINA GILL MD [facility] 04-11-2023 10:12-0500 Respiratory rate 18 /min DR CAROLINA GILL MD [facility] 04-11-2023 10:12-0500 Systolic Blood Pressure Non-Invasive 133 mm[Hg] DR CAROLINA GILL MD [facility] 04-10-2023 16:16-0500 Body weight 128 kg Krystle Alexis GOLF PLAYER ASSISTANT.ACCOUNTS PAYABLE ASSOCIATE Work Phone: [facility] [place] [facility] 04-10-2023 16:16-0500 Diastolic blood pressure 80 mm[Hg] Krystle Alexis GOLF PLAYER ASSISTANT.ACCOUNTS PAYABLE ASSOCIATE Work Phone: [facility] [place] [facility] 04-10-2023 16:16-0500 Heart rate 80 /min Krystle Alexis GOLF PLAYER ASSISTANT.ACCOUNTS PAYABLE ASSOCIATE Work Phone: [facility] [place] [facility] 04-10-2023 16:16-0500 SaO2% (BldA) [Mass fraction] 98 % Krystle Alexis GOLF PLAYER ASSISTANT.ACCOUNTS PAYABLE ASSOCIATE Work Phone: [facility] [place] [facility] 04-10-2023 16:16-0500 Systolic blood pressure 119 mm[Hg] Krystle Alexis GOLF PLAYER ASSISTANT.ACCOUNTS PAYABLE ASSOCIATE Work Phone: [facility] [place] [facility] 01-03-2023 08:01-0500 Body temperature 98.4 [degF] Yuriy Jonathan GOLF PLAYER ASSISTANT.ACCOUNTS PAYABLE ASSOCIATE Work Phone: [facility] [place] [facility] 01-03-2023 08:01-0500 Body weight 126.01 kg Yuriy Jonathan GOLF PLAYER ASSISTANT.ACCOUNTS PAYABLE ASSOCIATE Work Phone: [facility] [place] [facility] 01-03-2023 08:01-0500 Diastolic blood pressure 76 mm[Hg] Yuriy Jonathan GOLF PLAYER ASSISTANT.ACCOUNTS PAYABLE ASSOCIATE Work Phone: [facility] [place] [facility] 01-03-2023 08:01-0500 Heart rate 73 /min Yuriy Jonathan GOLF PLAYER ASSISTANT.ACCOUNTS PAYABLE ASSOCIATE Work Phone: [facility] [place] [facility] 01-03-2023 08:01-0500 Respiratory rate 18 /min Yuriy Jonathan GOLF PLAYER ASSISTANT.ACCOUNTS PAYABLE ASSOCIATE Work Phone: [facility] [place] [facility] 01-03-2023 08:01-0500 SaO2% (BldA) [Mass fraction] 99 % Yuriy Jonathan GOLF PLAYER ASSISTANT.ACCOUNTS PAYABLE ASSOCIATE Work Phone: [facility] [place] [facility] 01-03-2023 08:01-0500 Systolic blood pressure 147 mm[Hg] Yuriy Jonathan GOLF PLAYER ASSISTANT.ACCOUNTS PAYABLE ASSOCIATE Work Phone: [facility] [place] [facility] 12-17-2022 10:42-0400 Body height 162.6 cm Robson Zuniga MD Work Phone: [facility] [place] [facility] 12-17-2022 10:42-0400 Body temperature 97.3 [degF] Robson Zuniga MD Work Phone: [facility] [place] [facility] 12-17-2022 10:42-0400 Body weight 123.38 kg Robson Zuniga MD Work Phone: [facility] [place] [facility] 12-17-2022 10:42-0400 Diastolic blood pressure 74 mm[Hg] Robson Zuniga MD Work Phone: [facility] [place] [facility] 12-17-2022 10:42-0400 Heart rate 58 /min Robson Zuniga MD Work Phone: [facility] [place] [facility] 12-17-2022 10:42-0400 Respiratory rate 18 /min Robson Zuniga MD Work Phone: [facility] [place] [facility] 12-17-2022 10:42-0400 SaO2% (BldA) [Mass fraction] 99 % Robson Zuniga MD Work Phone: [facility] [place] [facility] 12-17-2022 10:42-0400 Systolic blood pressure 109 mm[Hg] Robson Zuniga MD Work Phone: [facility] [place] [facility] 12-06-2022 17:33-0400 Body temperature 98.4 [degF] Mari Slabaugh PA-C Work Phone: [facility] 12-06-2022 17:33-0400 Body weight 122.24 kg Mari Slabaugh PA-C Work Phone: [facility] 12-06-2022 17:33-0400 Diastolic blood pressure 50 mm[Hg] Mari Slabaugh PA-C Work Phone: [facility] 12-06-2022 17:33-0400 Heart rate 69 /min Mari Slabaugh PA-C Work Phone: [facility] 12-06-2022 17:33-0400 SaO2% (BldA) [Mass fraction] 98 % Mari Mancera PA-C Work Phone: [facility] 12-06-2022 17:33-0400 Systolic blood pressure 115 mm[Hg] Mari MARIE-Rachael Work Phone: [facility] 11-26-2022 10:34-0400 Body height 162.6 cm Donald Kohara DO Work Phone: [facility] 11-26-2022 10:34-0400 Body temperature 97 [degF] Donald Kohara DO Work Phone: [facility] 11-26-2022 10:34-0400 Body weight 123.47 kg Donald Kohara DO Work Phone: [facility] 11-26-2022 10:34-0400 Diastolic blood pressure 70 mm[Hg] Donald Kohara DO Work Phone: [facility] 11-26-2022 10:34-0400 Heart rate 64 /min Donald Kohara DO Work Phone: [facility] 11-26-2022 10:34-0400 SaO2% (BldA) [Mass fraction] 97 % Donald Kohara DO Work Phone: [facility] 11-26-2022 10:34-0400 Systolic blood pressure 102 mm[Hg] Donald Kohara DO Work Phone: [facility] 09-26-2022 13:03-0400 Body height 162.6 cm Robson Zuniga MD Work Phone: [facility] 09-26-2022 13:03-0400 Body temperature 98.2 [degF] Robson Zuniga MD Work Phone: [facility] 09-26-2022 13:03-0400 Body weight 120.66 kg Robson Zuniga MD Work Phone: [facility] 09-26-2022 13:03-0400 Diastolic blood pressure 62 mm[Hg] Robson Zuniga MD Work Phone: [facility] 09-26-2022 13:03-0400 Heart rate 85 /min Robson Zuniga MD Work Phone: [facility] 09-26-2022 13:03-0400 Respiratory rate 13 /min Robson Zuniga MD Work Phone: [facility] 09-26-2022 13:03-0400 SaO2% (BldA) [Mass fraction] 94 % Robson Zuniga MD Work Phone: [facility] 09-26-2022 13:03-0400 Systolic blood pressure 111 mm[Hg] Robson Zuniga MD Work Phone: [facility] 08-22-2022 09:15-0400 Body height 162.6 cm Krystle Alexis GOLF PLAYER ASSISTANT.ACCOUNTS PAYABLE ASSOCIATE Work Phone: [facility] 08-22-2022 09:15-0400 Body temperature 98.8 [degF] Krystle Alexis GOLF PLAYER ASSISTANT.ACCOUNTS PAYABLE ASSOCIATE Work Phone: [facility] 08-22-2022 09:15-0400 Body weight 123.29 kg Krystle Alexis GOLF PLAYER ASSISTANT.ACCOUNTS PAYABLE ASSOCIATE Work Phone: [facility] 08-22-2022 09:15-0400 Diastolic blood pressure 72 mm[Hg] Krystle Alexis GOLF PLAYER ASSISTANT.ACCOUNTS PAYABLE ASSOCIATE Work Phone: [facility] 08-22-2022 09:15-0400 Heart rate 85 /min Krystle Alexis GOLF PLAYER ASSISTANT.ACCOUNTS PAYABLE ASSOCIATE Work Phone: [facility] 08-22-2022 09:15-0400 SaO2% (BldA) [Mass fraction] 92 % Krystle Alexis GOLF PLAYER ASSISTANT.ACCOUNTS PAYABLE ASSOCIATE Work Phone: [facility] 08-22-2022 09:15-0400 Systolic blood pressure 118 mm[Hg] Krystle Alexis GOLF PLAYER ASSISTANT.ACCOUNTS PAYABLE ASSOCIATE Work Phone: [facility] 08-12-2022 16:26-0400 Body temperature 97.81 [degF] Adriana Coughlin PA-C Work Phone: [facility] 08-12-2022 16:26-0400 Body weight 126.1 kg Adriana Wormald PA-C Work Phone: [facility] 08-12-2022 16:26-0400 Diastolic blood pressure 78 mm[Hg] Adriana Wormald PA-C Work Phone: [facility] 08-12-2022 16:26-0400 Heart rate 83 /min Adriana Wormald PA-C Work Phone: [facility] 08-12-2022 16:26-0400 SaO2% (BldA) [Mass fraction] 100 % Adriana Wormald PA-C Work Phone: [facility] 08-12-2022 16:26-0400 Systolic blood pressure 126 mm[Hg] Adriana Wormald PA-C Work Phone: [facility] 06-16-2022 08:17-0400 SaO2% (BldA) [Mass fraction] 90 % Mari Slabaugh PA-C Work Phone: [facility] 06-16-2022 08:08-0400 Body temperature 97.3 [degF] Mari Slabaugh PA-C Work Phone: [facility] 06-16-2022 08:08-0400 Body weight 130.18 kg Mari Slabaugh PA-C Work Phone: [facility] 06-16-2022 08:08-0400 Diastolic blood pressure 52 mm[Hg] Mari Slabaugh PA-C Work Phone: [facility] 06-16-2022 08:08-0400 Heart rate 67 /min Mari Slabaugh PA-C Work Phone: [facility] 06-16-2022 08:08-0400 Respiratory rate 18 /min Mari Slabaugh PA-C Work Phone: [facility] 06-16-2022 08:08-0400 Systolic blood pressure 110 mm[Hg] Mari Slabaugh PA-C Work Phone: [facility] 04-02-2022 11:51-0500 Body height 162.6 cm Donald Snowden DO Work Phone: [facility] 04-02-2022 11:51-0500 Body temperature 97.81 [degF] Donald Snowden DO Work Phone: [facility] 04-02-2022 11:51-0500 Body weight 127.23 kg Donald Snowden DO Work Phone: [facility] 04-02-2022 11:51-0500 Diastolic blood pressure 62 mm[Hg] Donald Snowden DO Work Phone: [facility] 04-02-2022 11:51-0500 Heart rate 67 /min Donald Snowden DO Work Phone: [facility] 04-02-2022 11:51-0500 SaO2% (BldA) [Mass fraction] 99 % Donald Snowden DO Work Phone: [facility] 04-02-2022 11:51-0500 Systolic blood pressure 111 mm[Hg] Donald Snowden DO Work Phone: [facility] 03-11-2022 20:23-0500 Diastolic blood pressure 65 mm[Hg] Anthony Bowman MD Work Phone: [facility] 03-11-2022 20:23-0500 Heart rate 86 /min Anthony Bowman MD Work Phone: [facility] 03-11-2022 20:23-0500 Respiratory rate 18 /min Anthony Bowman MD Work Phone: [facility] 03-11-2022 20:23-0500 SaO2% (BldA) [Mass fraction] 96 % Anthony Bowman MD Work Phone: [facility] 03-11-2022 20:23-0500 Systolic blood pressure 128 mm[Hg] Anthony Bowman MD Work Phone: [facility] 03-11-2022 15:08-0500 Body mass index (BMI) [Ratio] 46 kg/m2 Anthony Bowman MD Work Phone: [facility] 03-11-2022 15:08-0500 Body temperature 98.6 [degF] Anthony Bowman MD Work Phone: [facility] 03-11-2022 15:08-0500 Body weight 121.56 kg Anthony Bowman MD Work Phone: [facility] 08-10-2021 10:35-0400 Body temperature 97.2 [degF] Man Wileyer DPM Work Phone: [facility] 08-10-2021 10:35-0400 Diastolic blood pressure 66 mm[Hg] Man Marcos DPM Work Phone: [facility] 08-10-2021 10:35-0400 Heart rate 69 /min Man Wileyer DPM Work Phone: [facility] 08-10-2021 10:35-0400 Respiratory rate 18 /min Man Marcos DPM Work Phone: [facility] 08-10-2021 10:35-0400 SaO2% (BldA) [Mass fraction] 95 % Man Wileyer DPM Work Phone: [facility] 08-10-2021 10:35-0400 Systolic blood pressure 117 mm[Hg] Man Marcos DPM Work Phone: [facility] 08-10-2021 06:21-0400 Body height 162.6 cm Man Marcos DPM Work Phone: [facility] 08-10-2021 06:21-0400 Body mass index (BMI) [Ratio] 45.14 kg/m2 Man Marcos DPM Work Phone: [facility] 08-10-2021 06:21-0400 Body weight 119.3 kg Man Marcos DPM Work Phone: [facility] 07-29-2020 20:27-0400 Body height 162.6 cm Anthony Weathers MD Work Phone: [facility] Work Phone: 07-29-2020 20:27-0400 Body mass index (BMI) [Ratio] 46.52 kg/m2 Anthony [facility] Work Phone: 07-29-2020 20:27-0400 Body temperature 98.4 [degF] Anthony Weathers MD Work Phone: [facility] Work Phone: 07-29-2020 20:27-0400 Body weight 122.92 kg Anthony Weather[facility] MD [facility] Work Phone: 07-29-2020 20:27-0400 Diastolic blood pressure 50 mm[Hg] Anthony Weathers MD Work Phone: [facility] Work Phone: 07-29-2020 20:27-0400 Heart rate 73 /min Anthony Weathers MD Work Phone: [facility] Work Phone: 07-29-2020 20:27-0400 Respiratory rate 16 /min Anthony Weathers MD Work Phone: [facility] Work Phone: 07-29-2020 20:27-0400 SaO2% (BldA) [Mass fraction] 100 % Anthony Weathers MD Work Phone: [facility] Work Phone: 07-29-2020 20:27-0400 Systolic blood pressure 128 mm[Hg] Anhtony Weathers MD Work Phone: [facility] Work Phone: 12-22-2018 01:12-0500 BP Diastolic 67 mm[Hg] [facility] [place] 12-22-2018 01:12-0500 BP Systolic 112 mm[Hg] [facility] , [place] 12-22-2018 01:12-0500 Pulse (Heart Rate) 77 /min [facility], [place] 12-22-2018 01:12-0500 Respiratory Rate 12 /min [facility], [place] 12-21-2018 22:23-0500 Pulse Oximetry 96 % Maricarmen Diaz [facility] , [place] 12-21-2018 21:19-0500 BMI (Body Mass Index) 45.32 kg/m2 Maricarmen Dave [facility], [place] 12-21-2018 21:19-0500 Body Temperature 98.91 [degF] Maricarmen Diaz [facility] [place] 12-21-2018 21:19-0500 Body weight 119.75 kg Maricarmen Diaz [facility] , [place] 12-21-2018 21:19-0500 Height 162.6 cm [facility] [place] En[facility]ters Encounter Date Encounter Type Care Provider Facility Start: 08-30-2024 End: 08-30-2024 Refill Dylan Topete MD Work Phone: Endocrinology Comment on above: Refill Request Start: 08-27-2024 End: 08-30-2024 ambulatory Dylan Topete MD Work Phone: Endocrinology Comment on above: [employer] Start: 08-26-2024 End: 08-26-2024 Telephone encounter Robson Zuniga MD Work Phone: Pulmonary Medicine Comment on above: FYI-No Action Needed (Order confirmation for Nebulizer) Start: 08-26-[address] DONALD SNOWDEN [place] Start: 08-06-2024 End: 08-06-2024 Telephone encounter Stacie Harris PSYD Work Phone: [facility] Comment on above: Appointment (Called to schedule new patient appointment, lvm) Start: 07-29-2024 End: 07-29-2024 Refill Donald Snowden DO Work Phone: [facility] Comment on above: Refill Request Start: 07-21-2024 End: 07-21-2024 Refill Dylan Topete MD Work Phone: Endocrinology Comment on above: Refill Request [employer] Start: 06-29-2024 End: 06-30-2024 Telephone encounter Robson Zuniga MD Work Phone: Pulmonary Comment on above: Insurance Authorizat ion (Nucala [place]) Start: 06-18-2024 End: 06-21-2024 Refill Robson Zuniga MD Work Phone: Pulmonary Comment on above: Refill Request Start: 06-03-2024 End: 06-08-2024 Telephone encounter Dylan Topete MD Work Phone: [facility]ology [facility] [place] Comment on above: Insurance Authorizat ion ( (ZEPBOUND) 2.5 mg/0.5 mL) Start: 06-03-2024 End: 06-03-2024 Patient encounter procedure Arlene Pittman Work Phone: Podiatry Comment on above: Right ankle instabil ity (Primary Dx); Chronic pain of right ankle Start: 06-03-2024 End: 06-03-2024 ambulatory ARLENE PITTMAN Facility:[facility] Start: 06-02-2024 End: 06-02-2024 Patient encounter procedure Dylan Topete MD Work Phone: Endocrinology Comment on above: Reactive hypoglycemi a (Primary Dx); Asthma, late onset, severe persistent, uncomplicated (HCC); Class 3 severe obesity due to excess calories with serious comorbidity and body mass index (BMI) of 40.0 to 44.9 in adult (HCC); Vitamin B12 deficiency Start: 06-02-2024 End: 06-02-2024 ambulatory DYLAN TOPETE Facility:[facility] Start: 05-26-2024 End: 05-26-2024 ambulatory DYLAN TOPETE Facility:[facility] Start: 05-12-2024 End: 05-12-2024 ambulatory DONALD SNOWDEN Facility:[facility] Start: 05-12-2024 End: 05-12-2024 Patient encounter procedure Neil Rucker APRN.CNP Work Phone: [facility] Comment on above: Asthma, moderate per sistent, poorly-controlled (Primary Dx); Costochondritis Start: 05-05-2024 End: 05-05-2024 Telephone encounter Dylan Topete MD Work Phone: [facility]inology [facility] [place] Comment on above: Insurance Authorizat ion ( (DEXCOM G7 SENSOR) - Insurance Approval ) Start: 04-09-2024 End: 04-09-2024 Refill Ha Gil Kristina ACOSTA Work Phone: [facility] Comment on above: Refill Request Start: 03-09-2024 End: 03-09-2024 ambulatory ROBSON ZUNIGA Facility:[facility] Start: 03-09-2024 End: 03-09-2024 Patient encounter procedure Robson Zuniga MD Work Phone: Pulmonary Comment on above: Asthma, late onset, severe persistent, uncomplicated (Primary Dx); Eosinophilic asthma; Class 3 severe obesity with serious comorbidity and body mass index (BMI) of 40.0 to 44.9 in adult, unspecified obesity type (HCC) Start: 02-29-2024 End: 03-01-2024 Refill Robson Zuniga MD Work Phone: Pulmonary Comment on above: Refill Request Start: 02-23-2024 End: 02-23-2024 Telephone encounter Robson Zuniga MD Work Phone: Pulmonary Start: 02-11-2024 End: 02-12-2024 Refill Robson Zuniga MD Work Phone: Pulmonary Comment on above: Refill Request Start: 02-05-2024 End: 02-05-2024 Refill Robson Zuniga MD Work Phone: Pulmonary Comment on above: Refill Request Start: 01-10-2024 End: 01-13-2024 Refill Silke Richardson APRN.ACCOUNTS PAYABLE ASSOCIATE Work Phone: [facility] Comment on above: Refill Request Start: 12-19-2023 End: 12-19-2023 Refill Robson Zuniga MD Work Phone: Pulmonary Comment on above: Refill Request Start: 12-03-2023 End: 12-03-2023 [facility] Chase Bazan APRN.ACCOUNTS PAYABLE ASSOCIATE Work Phone: [facility] behavioral Medicine Comment on above: Bipolar II disorder (HCC) (Primary Dx); Generalized anxiety disorder Start: 12-02-2023 End: 12-02-2023 ambulatory Chase Beni GOLF PLAYER ASSISTANT.ACCOUNTS PAYABLE ASSOCIATE Work Phone: [facility] Medicine Start: 12-02-2023 End: 12-02-2023 Patient encounter procedure Chase Beni GOLF PLAYER ASSISTANT.ACCOUNTS PAYABLE ASSOCIATE Work Phone: [facility] Medicine Start: 11-17-2023 End: 11-26-2023 ambulatory Dylan Topete MD Work Phone: Endocrinology Comment on above: G7 trasmiter Start: 11-16-2023 End: 11-17-2023 ambulatory Chase Beni GOLF PLAYER ASSISTANT.ACCOUNTS PAYABLE ASSOCIATE Work Phone: [facility] Start: 11-16-2023 End: 11-17-2023 Patient encounter procedure Chase Beni GOLF PLAYER ASSISTANT.ACCOUNTS PAYABLE ASSOCIATE Work Phone: [facility] Comment on above: Depression Start: 11-06-2023 End: 11-06-2023 ambulatory Donald Snowden DO Work Phone: [facility] Comment on above: Ozempic Start: 11-06-2023 End: 11-06-2023 Patient encounter procedure Dylan Topete MD Work Phone: Endocrinology Comment on above: Reactive hypoglycemi a (Primary Dx); Abnormal glucose; Vitamin B12 deficiency Start: 11-03-2023 End: 11-03-2023 ambulatory Robson Zuniga MD Work Phone: Pulmonary Comment on above: Asthma, late onset, severe persistent, uncomplicated (Primary Dx) Start: 11-03-2023 End: 11-03-2023 Telemedicine consultation with patient Robson Zuniga MD Work Phone: Pulmonary Start: 11-02-2023 End: 11-03-2023 Refill Robson Zuniga MD Work Phone: Pulmonary Comment on above: Refill Request Start: 10-28-2023 End: 10-28-2023 ambulatory NELLA CLAY [facility] Comment on above: Spirometry Start: 10-28-2023 End: 10-28-2023 Patient encounter procedure Marissa Gail Lennon Mc Work Phone: [facility] Start: 10-22-2023 End: 10-23-2023 Telephone encounter Robson Zuniga MD Work Phone: [facility] Pulmonary Comment on above: Patient Update ([employer]) Patient Question Start: 10-21-2023 End: 10-21-2023 Telemedicine consultation with patient Chase Beni GOLF PLAYER ASSISTANT.ACCOUNTS PAYABLE ASSOCIATE Work Phone: [facility] behavioral Medicine Start: 10-21-2023 End: 10-21-2023 Telephone encounter Robson Zuniga MD Work Phone: Pulmonary Medicine Comment on above: Appointment ([employer] Certification of Illness) Appointment (Certifi cation of Illness [employer]) Bipolar II disorder (HCC) (Primary Dx); Generalized anxiety disorder Start: 10-21-2023 End: 10-21-2023 ambulatory CHASE BENI Facility:[facility] Start: 10-16-2023 End: 10-16-2023 Telephone encounter Chase Beni GOLF PLAYER ASSISTANT.ACCOUNTS PAYABLE ASSOCIATE Work Phone: [facility] Comment on above: Patient Update Start: 10-12-2023 End: 10-13-2023 Refill Donald Snowden DO Work Phone: Family Medicine Comment on above: Refill Request Start: 10-09-2023 End: 10-10-2023 ambulatory Dylan Topete MD Work Phone: Endocrinology Comment on above: Dexcom g7 Start: 10-08-2023 End: 10-08-2023 ambulatory Chase Beni GOLF PLAYER ASSISTANT.ACCOUNTS PAYABLE ASSOCIATE Work Phone: [facility] Medicine Start: 10-08-2023 End: 10-08-2023 Patient encounter procedure Chase Beni GOLF PLAYER ASSISTANT.ACCOUNTS PAYABLE ASSOCIATE Work Phone: [facility] Medicine Comment on above: Celexa Start: 10-06-2023 End: 10-06-2023 ambulatory Donald Jhon DO Work Phone: [facility] Comment on above: Nausea Start: 10-03-2023 End: 10-03-2023 [facility] Chase Beni GOLF PLAYER ASSISTANT.ACCOUNTS PAYABLE ASSOCIATE Work Phone: [facility] Comment on above: Bipolar II disorder (HCC) (Primary Dx); Generalized anxiety disorder; Major depressive disorder, recurrent episode, moderate (HCC) Start: 09-25-2023 Refill Chase Ciccarel li GOLF PLAYER ASSISTANT.ACCOUNTS PAYABLE ASSOCIATE Work Phone: [facility] Comment on above: Refill Request extreme fluctuation of blood glucose levels Start: 09-23-2023 End: 09-23-2023 [facility] Chase Beni GOLF PLAYER ASSISTANT.ACCOUNTS PAYABLE ASSOCIATE Work Phone: [facility] Comment on above: Bipolar II disorder (HCC) (Primary Dx); Generalized anxiety disorder; Major depressive disorder, recurrent episode, moderate (HCC) Start: 09-12-2023 Telephone encounter Robson Zuniga MD Work Phone: Pulmonary Medicine Comment on above: FYI-No Action Needed Start: 09-11-2023 Telephone encounter Robson Zuniga MD Work Phone: Pulmonary Medicine Comment on above: FYI-No Action Needed (Confirmation of Order DME) Start: 09-10-2023 Refill Chase Ciccarel li GOLF PLAYER ASSISTANT.ACCOUNTS PAYABLE ASSOCIATE Work Phone: [facility] Comment on above: Refill Request Start: 09-09-2023 End: 09-09-2023 [facility] Chase Beni GOLF PLAYER ASSISTANT.ACCOUNTS PAYABLE ASSOCIATE Work Phone: [facility] Comment on above: Bipolar II disorder (HCC) (Primary Dx); Generalized anxiety disorder; Major depressive disorder, recurrent episode, moderate (HCC) Start: 09-08-2023 Refill Robson ricci MD Work Phone: Pulmonary Comment on above: Med Change Request Start: 09-08-2023 Telephone encounter Robson Zuniga MD Work Phone: Pulmonary Comment on above: FYI-No Action Needed Returning Patient's Call Start: 09-06-2023 ambulatory Chase Ciccarel li GOLF PLAYER ASSISTANT.ACCOUNTS PAYABLE ASSOCIATE Work Phone: [facility] Medicine Start: 09-06-2023 Patient encounter procedure Chase Beni GOLF PLAYER ASSISTANT.ACCOUNTS PAYABLE ASSOCIATE Work Phone: [facility] Comment on above: Manic issues Start: 09-04-2023 ambulatory Arlene servin Work Phone: Podiatry Comment on above: Shoes Start: 09-02-2023 ambulatory Arlene Dave malathi Work Phone: Podiatry Comment on above: Ankle brace Start: 08-26-2023 End: 08-26-2023 Patient encounter procedure Mari Mancera PA-C Work Phone: [facility] Comment on above: Infected abrasion of right knee, initial encounter (Primary Dx) Start: 08-25-2023 ambulatory Robson ricci MD Work Phone: Pulmonary Comment on above: Allergies Start: 08-19-2023 End: 08-19-2023 [facility] Chase Beni GOLF PLAYER ASSISTANT.ACCOUNTS PAYABLE ASSOCIATE Work Phone: [facility] Comment on above: Bipolar II disorder (HCC) (Primary Dx); Generalized anxiety disorder; Major depressive disorder, recurrent episode, moderate (HCC) Start: 08-13-2023 Refill Chase Ciccarel li GOLF PLAYER ASSISTANT.ACCOUNTS PAYABLE ASSOCIATE Work Phone: [facility] Comment on above: Refill Request Start: 08-12-2023 Refill Robson ricci MD Work Phone: Pulmonary Comment on above: Refill Request Start: 08-07-2023 End: 08-07-2023 ambulatory Chase Beni GOLF PLAYER ASSISTANT.ACCOUNTS PAYABLE ASSOCIATE Work Phone: [facility] Comment on above: Right ankle instabil ity (Primary Dx) Start: 08-07-2023 Patient encounter procedure Chase Beni GOLF PLAYER ASSISTANT.ACCOUNTS PAYABLE ASSOCIATE Work Phone: [facility] Comment on above: Having trouble Start: 08-07-2023 Telephone encounter Chase jordan GOLF PLAYER ASSISTANT.ACCOUNTS PAYABLE ASSOCIATE Work Phone: [facility] Comment on above: Psychiatric Problem Start: 08-06-2023 ambulatory Dylan Topete MD Work Phone: Endocrinology Comment on above: Work note Start: 08-06-2023 End: 08-06-2023 Patient encounter procedure Krystle Espinoza GOLF PLAYER ASSISTANT.ACCOUNTS PAYABLE ASSOCIATE Work Phone: Family Medicine [place] Comment on above: Left-sided chest wal l pain (Primary Dx); Upper back pain on left side; Low blood sugar Start: 07-18-2023 End: 07-18-2023 [facility] Chase Mckeonlli GOLF PLAYER ASSISTANT.ACCOUNTS PAYABLE ASSOCIATE Work Phone: [facility] Comment on above: Bipolar II disorder (HCC) (Primary Dx); Major depressive disorder, recurrent episode, moderate (HCC); Generalized anxiety disorder Medicantion Start: 07-16-2023 ambulatory Robson ricci MD Work Phone: Allergy Comment on above: Nucala prior authori zation Start: 07-16-2023 E-mail encounter caitlin m caregiver Robson Zuniga MD Work Phone: Allergy Start: 07-16-2023 Refill Shu Cohen PA-C Work Phone: Family Medicine Comment on above: Refill Request Start: 07-16-2023 Telephone encounter Robson Zuniga MD Work Phone: Allergy Comment on above: Insurance Authorizat ion (Nucala) Start: 07-15-2023 ambulatory Dylan Topete MD Work Phone: Endocrinology Comment on above: Test strips Refill Request Start: 07-11-2023 End: 07-11-2023 Emergency department patient visit Aleksandar Chung Facility:[facility] Start: 06-28-2023 ambulatory Dylan Topete MD Work Phone: Endocrinology Comment on above: Meals Start: 06-26-2023 Telephone encounter Matilda Galarza MD Work Phone: Endocrinology Comment on above: Patient Question Start: 06-19-2023 ambulatory Arlene servin Work Phone: Podiatry Comment on above: Ankle Start: 06-17-2023 ambulatory Arlene servin Work Phone: Podiatry Comment on above: Work note Start: 06-17-2023 Telephone encounter Dylan abreu MD Work Phone: Endocrinology Comment on above: Letter for Work Start: 06-05-2023 Orders Only Robson ricci MD Work Phone: Pulmonary Comment on above: Asthma, late onset, severe persistent, uncomplicated (Primary Dx) Start: 06-04-2023 Telephone encounter Estrella Dias MD Work Phone: Neurology Comment on above: Appointment Start: 05-28-2023 ambulatory Donald Snowden DO Work Phone: Family Medicine [place] Comment on above: Adderal Start: 05-28-2023 Telephone encounter Donald Snowden DO Work Phone: Family Medicine [place] Comment on above: Medication Problem Start: 05-23-2023 End: 05-23-2023 Office outpatient visit 15 minutes Iglesia Stevenson PA-C Work Phone: [facility] Comment on above: Viral URI with cough (Primary Dx) Start: 05-23-2023 ambulatory Donald Snowden DO Work Phone: Family Medicine [place] Comment on above: Black stool Start: 05-22-2023 Telephone encounter Donald Snowden DO Work Phone: Family Medicine [place] Comment on above: New Rx Request Start: 05-21-2023 End: 05-21-2023 Patient encounter procedure Donald Snowden CardiaLen Work Phone: [facility] [place] [employer] Comment on above: Anxiety with depress ion (Primary Dx); Acute non-recurrent maxillary sinusitis; Attention deficit hyperactivity disorder (ADHD), predominantly inattentive type Start: 05-21-2023 ambulatory Donald Snowden DO Work Phone: Family Medicine [place] Comment on above: Add meds Start: 05-20-2023 End: 05-20-2023 Patient encounter procedure Krystle Espinoza GOLF PLAYER ASSISTANT.ACCOUNTS PAYABLE ASSOCIATE Work Phone: Family Medicine Comment on above: Mild intermittent as thma, uncomplicated (Primary Dx) Start: 05-19-2023 End: 05-19-2023 Patient encounter procedure Arlene Pittman Work Phone: Podiatry Comment on above: Right ankle instabil ity (Primary Dx) Start: 05-14-2023 ambulatory Dylan Topete MD Work Phone: Endocrinology Comment on above: Sugar levels Start: 05-12-2023 Refill Robson ricci MD Work Phone: Pulmonary Comment on above: Med Change Request Start: 05-08-2023 End: 05-08-2023 ambulatory Jamey Gardner PT Work Phone: [facility] Comment on above: Right ankle instabil ity (Primary Dx) Start: 04-30-2023 ambulatory Dylan Topete MD Work Phone: Endocrinology Comment on above: Pop Start: 04-29-2023 End: 04-29-2023 Patient encounter procedure Dylan Topete MD Work Phone: Endocrinology Comment on above: Hypoglycemia (Primar y Dx); Low serum cortisol level; Class 3 severe obesity due to excess calories with serious comorbidity and body mass index (BMI) of 45.0 to 49.9 in adult ([facility]) Start: 04-29-2023 Telephone encounter Mera washington RD Work Phone: Endocrinology Start: 04-24-2023 End: 04-24-2023 ambulatory Robson Zuniga MD Work Phone: Pulmonary Comment on above: Asthma, late onset, severe persistent, uncomplicated (Primary Dx); 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) Start: 04-24-2023 End: 04-24-2023 Telemedicine consultation with patient Robson Zuniga MD Work Phone: [facility] Start: 04-24-2023 Telephone encounter Krystle son GOLF PLAYER ASSISTANT.ACCOUNTS PAYABLE ASSOCIATE Work Phone: Family Medicine Comment on above: Dexcom transmitter n ot sent Start: 04-23-2023 ambulatory Krystle Espinoza GOLF PLAYER ASSISTANT.ACCOUNTS PAYABLE ASSOCIATE Work Phone: [facility] Comment on above: Dexcom transmitter Start: 04-20-2023 Refill Silke Richardson GOLF PLAYER ASSISTANT.ACCOUNTS PAYABLE ASSOCIATE Work Phone: [facility] Comment on above: Refill Request Start: 04-18-2023 Refill Krystle Espinoza GOLF PLAYER ASSISTANT.ACCOUNTS PAYABLE ASSOCIATE Work Phone: [facility] Comment on above: Med Change Request Start: 04-17-2023 Telephone encounter Mera washington RD Work Phone: Endocrinology Comment on above: Patient Question Start: 04-16-2023 Telephone encounter Kenny Osuna RN NOC Comment on above: Follow Up (All Clear ) Start: 04-15-2023 End: 04-15-[address] Work Phone: [facility] Start: 04-15-2023 End: 04-15-2023 Nutrition therapy Mera Varela RD Work Phone: Endocrinology Comment on above: Medical Nutrition Th erapy (Hypoglycemia) Start: 04-12-2023 Telephone encounter Richar falcon GOLF PLAYER ASSISTANT.ACCOUNTS PAYABLE ASSOCIATE Work Phone: Endocrinology Comment on above: Appointment Start: 04-11-2023 ambulatory Jamie Bowie Work Phone: Endocrinology Comment on above: Blood sugar Start: 04-11-2023 Telephone encounter Guy Mane MD Work Phone: [facility] Comment on above: Results Start: 04-11-2023 End: 04-11-2023 Emergency department patient visit DR CAROLINA GILL MD Facility:B Start: 04-11-2023 End: 04-11-2023 Emergency department patient visit DR CAROLINA GILL MD [facility] Start: 04-10-2023 End: 04-10-2023 Patient encounter procedure Krystle Espinoza APRN.ACCOUNTS PAYABLE ASSOCIATE Work Phone: Family Medicine Comment on above: Lightheaded (Primary Dx); Hypoglycemia Start: 04-10-2023 ambulatory Donald Snowden DO Work Phone: [facility] [place] Comment on above: Low Blood Sugar Start: 04-10-2023 Telephone encounter Donald Snowden DO Work Phone: [facility] Comment on above: Medication Problem Start: 2023 Refill Donald Snowden DO Work Phone: [facility] Comment on above: Refill Request Start: 04-01-2023 End: 04-01-2023 ambulatory Nuria Puckett PT, DPT [facility] Comment on above: Right ankle instabil ity (Primary Dx) Start: 03-28-2023 End: 03-28-2023 ambulatory Nuria Puckett PT, DPT [facility] Comment on above: Right ankle instabil ity (Primary Dx) Start: 03-20-2023 End: 03-20-2023 ambulatory Jamey Gardner PT Work Phone: [facility] Comment on above: Right ankle instabil ity (Primary Dx) Start: 01-11-2023 Refill Donald Snowden DO Work Phone: [facility] Comment on above: Refill Request Start: 01-03-2023 End: 01-03-2023 Emergency department patient visit UNKNOWN PROVIDER Facility:[facility] Start: 01-03-2023 End: 01-03-2023 Patient encounter procedure Yuriy Lagos APRN.ACCOUNTS PAYABLE ASSOCIATE Work Phone: [facility] Comment on above: Insect bite of left upper arm, initial encounter (Primary Dx); Skin erythema Start: 12-26-2022 Telephone encounter Robson Zuniga MD Work Phone: Pulmonary Comment on above: Medication Problem Start: 12-17-2022 End: 12-17-2022 Patient encounter procedure Robson Zuniga MD Work Phone: Pulmonary Comment on above: Late onset asthma, s evere persistent, with status asthmaticus (Primary Dx); Pulmonary eosinophilia (HCC) Refill Request Start: 12-12-2022 End: 12-12-2022 ambulatory Madison Recinos APRN.ACCOUNTS PAYABLE ASSOCIATE Work Phone: Telemedicine Comment on above: Severe persistent as thma with acute exacerbation (Primary Dx) Start: 12-12-2022 End: 12-12-2022 Telemedicine consultation with patient Madison Recinos APRN.ACCOUNTS PAYABLE ASSOCIATE Work Phone: [facility] Start: 12-10-2022 Telephone encounter Robson Zuniga MD Work Phone: Pulmonary Comment on above: FYI-No Action Needed Start: 12-09-2022 Telephone encounter Arlene Rosen Work Phone: Podiatry Start: 12-06-2022 End: 12-06-2022 Patient encounter procedure Mari Mancera PA-C Work Phone: [facility] Comment on above: Viral URI with cough (Primary Dx) Start: 11-26-2022 Telephone encounter Donald Snowden DO Work Phone: Family Medicine Comment on above: Orders Start: 11-26-2022 End: 11-26-2022 Patient encounter procedure Donald Snowden DO Work Phone: Family Medicine Comment on above: Foot pain, right (Pr imary Dx); Abnormal weight gain Start: 11-21-2022 ambulatory YANIRA DE LA ROSA DO-FACOG [facility] Start: 11-04-2022 Refill Donald Snowden DO Work Phone: Family Medicine Comment on above: Refill Request Start: 10-28-2022 Telephone encounter Robson Zuniga MD Work Phone: Pulmonary Medicine Comment on above: Opened In Error Start: 10-26-2022 Refill Silke Richardson APRN.ACCOUNTS PAYABLE ASSOCIATE Work Phone: [facility] Comment on above: Refill Request Start: 10-23-2022 Telephone encounter Robson Zuniga MD Work Phone: Pulmonary Comment on above: Orders Start: 10-18-2022 Refill Robson ricci MD Work Phone: Pulmonary Comment on above: Refill Request Start: 10-18-2022 Telephone encounter Robson Zuniga MD Work Phone: Pulmonary Comment on above: Results Start: 10-17-2022 Telephone encounter Robson Zuniga MD Work Phone: Pulmonary Comment on above: Insurance Authorizat ion (nucala) Start: 10-17-2022 End: 10-18-2022 ambulatory UNKNOWN PROVIDER Facility:[facility] Start: 10-07-2022 Telephone encounter Robson Zuniga MD Work Phone: Pulmonary Comment on above: FMLA Paperwork Start: 10-05-2022 Refill Krystle Espinoza APRN.ACCOUNTS PAYABLE ASSOCIATE Work Phone: [facility] Comment on above: Refill Request Start: 09-29-2022 Refill Donald Snowden DO Work Phone: Family Medicine Comment on above: Refill Request Start: 09-26-2022 End: 09-26-2022 ambulatory Pulm Mc Work Phone: [facility] Comment on above: Spirometry Start: 09-26-2022 End: 09-26-2022 Patient encounter procedure [facility] Work Phone: [facility] Comment on above: Pulmonary eosinophil ia (HCC) (Primary Dx); Late onset asthma, severe persistent, with status asthmaticus; Asthma, moderate persistent, poorly-controlled Start: 09-25-2022 ambulatory Sandra Amezcua RN [facility] Comment on above: Asthma Start: 08-22-2022 End: 08-22-2022 Patient encounter procedure Krystle Espinoza APRN.ACCOUNTS PAYABLE ASSOCIATE Work Phone: Family Medicine Comment on above: Mild intermittent as thma with acute exacerbation (Primary Dx); SOB (shortness of breath); Wheezing Start: 08-12-2022 End: 08-12-2022 Patient encounter procedure Adriana Coughlin PA-C Work Phone: [facility] Comment on above: Acute otitis media, right (Primary Dx); Right ear pain Start: 08-08-2022 Get Medical Advice Donald Hunter ra DO Work Phone: Family Medicine Comment on above: Refill Start: 07-19-2022 Refill Donald Snowden DO Work Phone: Family Medicine Comment on above: Refill Request Start: 06-24-2022 ambulatory Donald Snowden DO Work Phone: Family Medicine Comment on above: Medication issues Start: 06-16-2022 End: 06-16-2022 Emergency department patient visit ARTUR MENG Facility:[facility] Start: 06-16-2022 End: 06-16-2022 Patient encounter procedure Mari Mancera PA-C Work Phone: [facility] Comment on above: Low oxygen saturatio n (Primary Dx); SOB (shortness of breath) Start: 04-26-2022 Refill Donald Snowden DO Work Phone: [facility] [place] Comment on above: Refill Request Start: 04-26-2022 Telephone encounter Donald Snowden DO Work Phone: [facility] [place] Comment on above: Medication Problem ( Anxiety ) Start: 04-19-2022 End: 04-19-2022 ambulatory Jamie Steele MD Work Phone: Endocrinology Comment on above: Justina's thyroidi tis Start: 04-19-2022 End: 04-19-2022 Telemedicine consultation with patient Jamie Steele MD Work Phone: [facility] Start: 04-16-2022 ambulatory Donald Snowden DO Work Phone: Family Medicine Comment on above: Nebulizer Start: 04-12-2022 End: 04-12-2022 Subsequent hospital visit by physician [facility] Work Phone: Radiology Comment on above: Justina's thyroidi tis [E06.3] Start: 04-10-2022 End: 04-11-2022 ambulatory UNKNOWN PROVIDER Facility:[facility] Start: 04-05-2022 ambulatory Donald Snowden DO Work Phone: Family Medicine Comment on above: Thyroid Start: 04-02-2022 End: 04-02-2022 Patient encounter procedure Donald Snowden DO Work Phone: Family Medicine Comment on above: Encounter for annual general medical examination without abnormal findings in adult (Primary Dx); Anxiety with depression; Mild intermittent asthma, uncomplicated; Vitamin D deficiency; Fatigue, unspecified type Start: 03-11-2022 End: 03-11-2022 Subsequent hospital visit by physician [facility] Radiology Comment on above: Arrived Start: 03-11-2022 End: 03-11-2022 Emergency department patient visit Anthony Bowman MD Work Phone: [facility] ED Comment on above: Moderate persistent asthma with exacerbation (Primary Dx) Start: 12-13-2021 ambulatory UNKNOWN PROVIDER [facility] Start: 12-12-2021 [facility]: [facility] Scheduling Comment on above: Moderate persistent asthma, uncomplicated (Primary Dx) Start: 08-10-2021 End: 08-10-2021 Subsequent hospital visit by physician Man Marcos DPM Work Phone: [facility] Comment on above: Status post right fo ot surgery (Primary Dx) Start: 07-29-2020 End: 07-29-2020 Emergency department patient visit Anthony Weathers MD Work Phone: [facility] Comment on above: Sprain of right ankl e, unspecified ligament, initial encounter (Primary Dx) Start: 04-21-2019 End: 04-21-2019 Subsequent hospital visit by physician Jose Alfredo King Work Phone: [facility] Comment on above: Orthostatic hypotens ion; Orthostatic lightheadedness Start: 03-04-2019 End: 03-04-2019 Subsequent hospital visit by physician Liliya Baeza APRN - ACCOUNTS PAYABLE ASSOCIATE Work Phone: [facility] EKG Comment on above: Syncope, unspecified syncope type; Lightheadedness; Orthostatic hypotension; Palpitations Start: 12-21-2018 End: 12-22-2018 Emergency department patient visit Maricarmen Diaz Work Phone: [facility] ED Comment on above: Vasovagal syncope (P rimary Dx); Acute cystitis without hematuria Procedures Date Procedure Procedure Detail Performing Clinician Start: 11-06-2023 Hemoglobin A1c/Hemoglobin.total in Blood Dylan Topete MD Work Phone: Start: 10-28-2023 Nitric oxide gas determination Nella Payton MD Work Phone: Start: 10-28-2023 Brncdilat rspse spmtry pre&post-brncdilat admn Nella Payton MD Work Phone: Start: 04-29-2023 Gluc bld gluc mntr dev cleared fda spec home use Dylan Topete MD Work Phone: Start: 09-26-2022 Nitric oxide gas determination Robson Zuniga MD Work Phone: Start: 04-12-2022 soft tissue head & neck real time imge docm Donald Snowden DO Work Phone: Start: 03-11-2022 Radiologic exam chest single view Pili Mustafa GOLF PLAYER ASSISTANT - ACCOUNTS PAYABLE ASSOCIATE Work Phone: Start: 03-11-2022 Iadna respiratry probe & rev trnscr 02-10 target Pili Ramsey GOLF PLAYER ASSISTANT - ACCOUNTS PAYABLE ASSOCIATE Work Phone: Start: 03-11-2022 Basic metabolic panel calcium total Pili Ramsey GOLF PLAYER ASSISTANT - ACCOUNTS PAYABLE ASSOCIATE Work Phone: Start: 08-10-2021 OPERATIVE REPORT Physician Generic Start: 07-29-2020 End: 07-29-2020 Radiologic examination tibia & fibula 2 views Anthony Weathers MD Work Phone: Start: 06-01-2020 Lipid 1996 panel - Serum or Plasma Anthony Bowman MD Work Phone: Start: 09-24-2019 History of cholecystectomy History of cholecystectomy Anthony Weathers MD Work Phone: Start: 04-21-2019 Echo tthrc r-t 2d w/wom-mode compl spec&colr d Jose Alfredo King Work Phone: Start: 12-22-2018 Urnls dip stick/tablet rgnt auto w/o microscopy Maricarmen Diaz Work Phone: Start: 12-21-2018 Basic metabolic panel calcium total Maricarmen Diaz Work Phone: Start: 12-21-2018 Blood count complete auto&auto difrntl wbc Maricarmen Diaz Work Phone: Start: 12-21-2018 Gonadotropin chorionic qualitative Maricarmen Diaz Work Phone: Start: 12-21-2018 Ecg routine ecg w/least 12 lds w/i&r Maricarmen Diaz Work Phone: Start: 05-14-2018 Microscopic observation [Identifier] in Cervix by Cyto stain Man Marcos DPM Work Phone: Start: 11-18-2016 H/O: section History of section Anthony Bowman MD Work Phone: Start: 08-10-2016 H/O: section History of section Liliya Baeza GOLF PLAYER ASSISTANT - ACCOUNTS PAYABLE ASSOCIATE Work Phone: H/O: surgery Status post righ t foot surgery Man Marcos DPM Work Phone: Plan of Treatment Date Care Activity Detail Author Start: 2055 Pneumococcal 0-64 years Vaccine (2 of 2) Pneumococcal 0-64 years Vaccine (2 of 2) [employer] Work Phone: Start: 2040 Shingles Vaccine (1 of 2) Shingles Vaccine (1 of 2) [facility] [place] Start: 2040 Zoster Vaccines (1 of 2) Zoster Vaccines (1 of 2) [facility] Start: 11-09-2029 DTaP/Tdap/Td vaccine (9 - Td or Tdap) DTaP/Tdap/Td vaccine (9 - Td or Tdap) [facility] Start: 11-09-2029 DTaP/Tdap/Td Vaccines (9 - Td or Tdap) DTaP/Tdap/Td Vaccines (9 - Td or Tdap) [facility] Start: 11-09-2029 Urine microalbumin profile [facility] Start: 06-01-2025 Lipid panel Lipid Panel [facility] Start: 11-02-2024 End: 06-02-2025 Cobalamin (Vitamin B12) [Mass/volume] in Serum or Plasma VITAMIN B12 Lab Routine Vitamin B12 deficiency Expected: 11/02/2024, Expires: 06/02/2025 [facility] Comment on above: Expected: 11/02/2024, Expires: Start: 11-02-2024 End: 06-02-2025 Comprehensive metabolic 2000 panel - Serum or Plasma COMPREHENSIVE METABOLIC PANEL Lab Routine Reactive hypoglycemia Expected: 11/02/2024, Expires: 06/02/2025 [facility] Work Phone: Comment on above: Expected: 11/02/2024, Expires: Start: 10-20-2024 End: 10-20-2024 Patient encounter procedure 10/20/2024 12:00 PM EDT Office Visit Endocrinology [address] [place] [address] Jennifer Linares APRN.ACCOUNTS PAYABLE ASSOCIATE [address] [place], [place] [id number] f/u Endocrinology Comment on above: f/u Start: 10-18-2024 Influenza vaccination [facility] Start: 10-13-2024 End: 10-13-2024 Patient encounter procedure 10/13/2024 3:30 PM EDT Office Visit [facility] [address] [place] [address] Donald Snowden DO [address] [place] [address] med refill Family [facility] [place] Comment on above: med refill Start: 08-05-2024 Annual PCP Team Chronic Disease Visit Annual PCP Team Chronic Disease Visit [facility] Start: 06-21-2024 End: 06-21-2024 Patient encounter procedure 06/21/2024 4:30 PM EDT Appointment Radiology [address] [place] [id number] Chronic pain of right ankle [M25.571, G89.29] Radiology Comment on above: Chronic pain of right ankle [M25.571, G8 9.29] Start: 06-03-2024 End: 06-03-2024 Patient encounter procedure 06/03/2024 9:15 AM EDT Office Visit Podiatry [address] [place] [address] Arlene Pittman [address] [place] [address] ankle weakness Podiatry Comment on above: ankle weakness Start: 06-02-2024 End: 06-02-2024 Patient encounter procedure 06/02/2024 2:10 PM EDT Office Visit Endocrinology [address] [place] [address] Dylan Topete MD [address] [place], [place] [id number] If patient is not here by 840 she will need rescheduled. Due to traffic issues; pt will be approx 10 min late; N/A [id number] Endocrinology Comment on above: If patient is not here by 840 she will n eed rescheduled. Due to traffic issues; pt will be approx 10 min late; N/A [id number] Start: 05-24-2024 End: 05-24-2024 ambulatory 05/24/2024 4:00 PM EDT Results Only [facility] [address] [place] [address] [facility] Start: 05-20-2024 Annual PCP Team Chronic Disease Visit Annual PCP Team Chronic Disease Visit [facility] Start: 05-19-2024 Annual PCP Team Chronic Disease Visit Annual PCP Team Chronic Disease Visit [facility] Start: 05-18-2024 End: 05-18-2024 ambulatory 05/18/2024 11:45 AM EDT Results Only Mitzy Epps [facility] [address] [place] [id number] Mitzy Rojastown [facility] Start: 04-21-2024 Annual PCP Team Chronic Disease Visit Annual PCP Team Chronic Disease Visit [facility] Start: 04-10-2024 Annual PCP Team Chronic Disease Visit Annual PCP Team Chronic Disease Visit [facility] Start: 2024 End: 11-05-2024 Cobalamin (Vitamin B12) [Mass/volume] in Serum or Plasma VITAMIN B12 Lab Routine Vitamin B12 deficiency Expected: 2024, Expires: 11/05/2024 [facility] Comment on above: Expected: 2024, Expires: Start: 2024 End: 11-05-2024 Comprehensive metabolic 2000 panel - Serum or Plasma COMPREHENSIVE METABOLIC PANEL Lab Routine Reactive hypoglycemia Abnormal glucose Expected: 2024, Expires: 11/05/2024 [facility] Work Phone: Comment on above: Expected: 2024, Expires: Start: 2024 End: 11-05-2024 Hemoglobin A1c in Blood HEMOGLOBIN A1C Lab Routine Reactive hypoglycemia Abnormal glucose Expected: 2024, Expires: 11/05/2024 [facility] Comment on above: Expected: 2024, Expires: Start: 03-09-2024 End: 03-09-2024 Patient encounter procedure Pulmonary Comment on above: follow up asthma follow up asthma Start: 01-29-2024 Annual PCP Team Chronic Disease Visit Annual PCP Team Chronic Disease Visit [facility] Start: 12-17-2023 End: 12-17-2023 Patient encounter procedure 12/17/2023 2:00 PM EDT Office Visit Allergy [address] [address] Nella Payton MD [address] [place] [address] Environmental and seasonal allergies [J30.89] Allergy Comment on above: Environmental and seasonal allergies [J3 0.89] Start: 12-03-2023 End: 12-03-2023 Patient encounter procedure 12/03/2023 3:00 PM EDT [facility] General behavioral Medicine [address] [facility] [address] [place] [address] Chase Bazan APRN.ACCOUNTS PAYABLE ASSOCIATE [address] [facility] [address] [place] [address] f/u [facility] Medicine Comment on above: f/u Start: 11-27-2023 Annual PCP Team Chronic Disease Visit Annual PCP Team Chronic Disease Visit [facility] Start: 11-19-2023 End: 11-19-2023 Patient encounter procedure 11/19/2023 1:15 PM EDT Office Visit Allergy [address] [address] Nella Payton MD [address] [place] [address] CONSULT TO ALLERGY/IMMUNOLOGY Allergy Comment on above: CONSULT TO ALLERGY/IMMUNOLOGY Start: 11-06-2023 End: 11-06-2023 Patient encounter procedure 11/06/2023 8:25 AM EDT Office Visit Endocrinology [address] [place] [address] Dylan Topete MD [address] [place] [address] f/u Endocrinology Comment on above: f/u Start: 11-03-2023 End: 11-03-2023 Patient encounter procedure Pulmonary Comment on above: routine follow up- asthma routine follow up- asthma Start: 10-28-2023 End: 10-28-2023 Patient encounter procedure 10/28/2023 2:30 PM EDT Office Visit [facility] Pulmonary [address] [place] [phone] Pam Montgomery APRN.ACCOUNTS PAYABLE ASSOCIATE [address] [place] [address] needs forms sign for [employer] [facility] Pulmonary Comment on above: needs forms sign for [employer] Start: 10-28-2023 End: 10-28-[address] [facility] Comment on above: Severe persistent asthma without complic ation [J45.50] Start: 10-21-2023 End: 10-21-2023 Patient encounter procedure 10/21/2023 2:00 PM EDT [facility] behavioral Medicine [address] [place] [address] Chase Bazan, GOLF PLAYER ASSISTANT.ACCOUNTS PAYABLE ASSOCIATE [address] [place] [address] mychart [facility] General behavioral Medicine Comment on above: mychart Start: 10-19-2023 Influenza vaccination [facility] Start: 10-13-2023 End: 10-13-2023 Patient encounter procedure Allergy Comment on above: new allergy SOB (shortness of breath) [R06.02]; Wheezing [R06.2]; Mild intermittent asthma with acute exacerbation [J45.21] *asthma cough Start: 10-09-2023 End: 10-09-2023 Patient encounter procedure Pulmonary Comment on above: SOB (shortness of breath) [R06.02]; Whee zing [R06.2]; Mild intermittent asthma with acute exacerbation [J45.21] SOB (shortness of breath) [R06.02]; Wheezing [R06.2]; Mild intermittent asthma with acute exacerbation [J45.21] Start: 09-23-2023 End: 09-23-2023 Patient encounter procedure 09/23/2023 4:00 PM EDT [facility] behavioral Medicine [address] [place] [address] Chase Bazan GOLF PLAYER ASSISTANT.ACCOUNTS PAYABLE ASSOCIATE [address] [place], [place] [id number] mychart [facility] behavioral Medicine Comment on above: mychart Start: 09-16-2023 End: 09-16-2023 ambulatory 09/16/2023 6:15 PM EDT OT/PT/Speech Visit [facility] [address] [place], [place] [phone] Jamey Gardner, PT [address] [place], [place] [phone] [facility] Comment on above: RIGHT ANKLE PAIN PT Start: 09-08-2023 End: 09-08-2023 Patient encounter procedure 09/08/2023 1:00 PM EDT Office Visit Allergy [address] [place] [address] Santiago Rodriguez MD [address] [place] [address] New patient - Allergy testing (patient aware of CPT codes, sent via [employer]) Allergy Comment on above: New patient - Allergy testing (patient a chopra of CPT codes, sent via [employer]) Start: 09-03-2023 End: 09-03-2023 Patient encounter procedure 09/03/2023 12:00 PM EDT Office Visit Endocrinology [address] [place], [place] [id number] Jennifer Linares APRN.ACCOUNTS PAYABLE ASSOCIATE [address] [place], [place] [id number] hypoglycemia Endocrinology Comment on above: hypoglycemia Start: 08-26-2023 End: 08-26-2023 ambulatory 08/26/2023 5:30 PM EDT OT/PT/Speech Visit [facility] [address] [place], [place] [id number] Jamey Gardner, PT [address], [place] [id number] RIGHT ANKLE PAIN PT [facility] Comment on above: RIGHT ANKLE PAIN PT Start: 08-26-2023 End: 08-26-2023 Patient encounter procedure 08/26/2023 2:40 PM EDT Office Visit Family Medicine [address] [place] [address] [place] [phone] Donald Snowden, [address] [place] [place] [address] 3mo f/u Family Medicine Comment on above: 3mo f/u Start: 08-23-2023 ANNUAL PCP TEAM CHRONIC DISEASE VISIT ANNUAL PCP TEAM CHRONIC DISEASE VISIT [facility] Start: 08-19-2023 End: 08-19-2023 Patient encounter procedure 08/19/2023 9:00 AM EDT [facility] [address] [place] [address] Chase Bazan, GOLF PLAYER ASSISTANT.ACCOUNTS PAYABLE ASSOCIATE [address] [place] [address] [facility] [place] [facility] Comment on above: mycstedman Start: 08-15-2023 End: 08-15-2023 Patient encounter procedure 08/15/2023 4:00 PM EDT [facility] General behavioral Medicine [address] [place] [address] Chase Bazan, GOLF PLAYER ASSISTANT.ACCOUNTS PAYABLE ASSOCIATE [address] [place] [address] [facility] [place] [facility] Medicine Comment on above: mychar Start: 08-11-2023 End: 08-11-2023 ambulatory 08/11/2023 3:30 PM EDT OT/PT/Speech Visit [facility] [address] [place] [address] Bessy Mora, PATROL POLICE LIEUTENANT [address] [place] [address] RIGHT ANKLE PAIN PT [facility] Comment on above: RIGHT ANKLE PAIN PT Start: 08-07-2023 End: 08-07-2023 ambulatory 08/07/2023 6:00 PM EDT OT/PT/Speech Visit [facility] [address] [place] [address] Jamey Gardner, PT [address] [place] [id number] RIGHT ANKLE PAIN PT [facility] Comment on above: RIGHT ANKLE PAIN PT Start: 07-24-2023 End: 07-24-2023 ambulatory 07/24/2023 4:30 PM EDT OT/PT/Speech Visit [facility] [address] [place] [address] Jamey Gardner, PT [address] [place] [address] RIGHT ANKLE PAIN PT [facility] Comment on above: RIGHT ANKLE PAIN PT Start: 07-21-2023 End: 07-21-2023 ambulatory 07/21/2023 5:00 PM EDT OT/PT/Speech Visit [facility] [address] [place] [address] Jamey Gardner, PT [address] [place] [address] RIGHT ANKLE PAIN [facility] Comment on above: RIGHT ANKLE PAIN Start: 07-18-2023 End: 07-18-2023 Patient encounter procedure [facility] [place] General behavioral Medicine Comment on above: new pt zoom Start: 07-12-2023 ANNUAL PCP TEAM CHRONIC DISEASE VISIT ANNUAL PCP TEAM CHRONIC DISEASE VISIT [facility] Start: 07-08-2023 End: 07-08-2023 ambulatory 07/08/2023 3:00 PM EDT OT/PT/Speech Visit [facility] [address] [place] [address] Jamey Gardner, PT [address] [place] [address] ankle [facility] Comment on above: ankle Start: 06-30-2023 End: 06-30-2023 ambulatory 06/30/2023 4:15 PM EDT OT/PT/Speech Visit [facility] [address] [place] [address] Jamey Gardner, PT [address] [place] [phone] Ankle Pain PT [facility] Comment on above: Ankle Pain PT Start: 10-18-2022 Influenza vaccination [facility] Start: 09-26-2022 End: 11-26-2022 [facility] Lab Routine Late onset asthma, severe persistent, with status asthmaticus Expected: 09/26/2022, Expires: 11/26/2022 [facility] Work Phone: Comment on above: Expected: 09/26/2022, Expires: 3 Start: 09-26-2022 End: 11-26-2022 Aspergillus fumigatus IgE Ab [Units/volume] in Serum ALG ASPERGILLUS FUMIGATUS IGE Lab Routine Pulmonary eosinophilia (HCC) Late onset asthma, severe persistent, with status asthmaticus Expected: 09/26/2022, Expires: 11/26/2022 [facility] Work Phone: Comment on above: Expected: 09/26/2022, Expires: 3 Start: 09-26-2022 End: 11-26-2022 IgE [Units/volume] in Serum or Plasma IGE BLD Lab Routine Late onset asthma, severe persistent, with status asthmaticus Expected: 09/26/2022, Expires: 11/26/2022 [facility] Work Phone: Comment on above: Expected: 09/26/2022, Expires: 3 Start: 04-05-2022 End: 06-05-2022 Thyroglobulin Ab [Units/volume] in Serum or Plasma THYROGLOBULIN AB Lab Routine Abnormal TSH Expected: 04/05/2022, Expires: 06/05/2022 [facility] Work Phone: Comment on above: Expected: 04/05/2022, Expires: 3 Start: 04-05-2022 End: 06-05-2022 THYROID PEROXIDASE ANTIBODY BLOOD THYROID PEROXIDASE ANTIBODY BLOOD Lab Routine Abnormal TSH Expected: 04/05/2022, Expires: 06/05/2022 [facility] Work Phone: Comment on above: Expected: 04/05/2022, Expires: 3 Start: 04-05-2022 End: 06-05-2022 THYROID STIMULATING IMMUNOGLOBULIN BLOOD THYROID STIMULATING IMMUNOGLOBULIN BLOOD Lab Routine Abnormal TSH Expected: 04/05/2022, Expires: 06/05/2022 [facility] Work Phone: Comment on above: Expected: 04/05/2022, Expires: 3 Start: 03-27-2022 End: 03-27-2022 Patient encounter procedure 03/27/2022 Office Visit Family Medicine Lorri Jackson, DO [address] [place] [address] [facility] Start: 02-17-2022 DEPRESSION ASSESSMENT DEPRESSION ASSESSMENT [facility] Start: 12-12-2021 End: 12-12-2022 Complete PFT pre and post bronchodilator Complete PFT pre and post bronchodilator PFT Routine Moderate persistent asthma, uncomplicated Expected: 12/12/2021 (Approximate), Expires: 12/12/2022 [facility] Work Phone: Comment on above: Expected: 12/12/2021 (Approximate), Expi res: 12/12/2022 Start: 10-18-2021 Influenza vaccination [facility] Start: 05-31-2021 Depression Monitoring Depression Monitoring [facility] Start: 05-31-2021 Hepatitis C screening Hepatitis C screen [facility] Work Phone: Comment on above: Postponed from 1990 (Patient Refus ed) Start: 05-31-2021 HIV screening HIV screen [facility] Work Phone: Comment on above: Postponed from 2005 (Patient Refus ed) Start: 05-14-2021 Cervical cancer screen Cervical cancer screen [facility] [place] Start: 05-14-2021 Screening for malignant neoplasm of cervix [facility] Start: 12-01-2020 End: 12-01-2020 Patient encounter procedure 12/01/2020 Office Visit Family Medicine Radha Riojas MD [address] [place] [address] [phone] [facility] Start: 09-06-2020 COVID-19 VACCINE (3 - Booster for Moderna series) COVID-19 VACCINE (3 - Booster for Moderna series) [facility] Start: 09-06-2020 COVID-19 VACCINE (3 - Moderna series) COVID-19 VACCINE (3 - Moderna series) [facility] Start: 2020 HPV TESTING HPV TESTING [facility] Start: 2020 Screening for malignant neoplasm of cervix [facility] Start: 12-15-2019 Influenza vaccination Flu vaccine (#1) [place], [place] Comment on above: Postponed from 10/18/2018 (Patient Refus ed) Start: 10-08-2019 DTaP/Tdap/Td vaccine (8 - Td) DTaP/Tdap/Td vaccine (8 - Td) [place], [place] Comment on above: Postponed from 05/19/2017 (Patient Refus ed) Start: 10-08-2019 HIV screen HIV screen [place], [place] Comment on above: Postponed from 2005 (Patient Refus ed) Start: 10-08-2019 Varicella vaccine (2 of 2 - 2-dose childhood series) Varicella vaccine (2 of 2 - 2-dose childhood series) [place], [place] Comment on above: Postponed from 02/21/1995 (Patient Refus ed) Start: 05-28-2019 End: 05-28-2019 Office Visit 05/28/2019 Office Visit Cardiology Jose Alfredo King MD [address] [place] [phone] [facility] Start: 04-15-2019 End: 04-15-2019 Patient encounter procedure 04/15/2019 Office Visit Cardiology Jose Alfredo King MD [address] [place] [phone] [facility] [place] Start: 2011 PAP TESTING PAP TESTING [facility] Start: 2011 Screening for malignant neoplasm of cervix [facility] Start: 2009 Hepatitis B Vaccine (1 of 3 - 19+ 3-dose series) Hepatitis B Vaccine (1 of 3 - 19+ 3-dose series) [facility] Start: 2008 Hepatitis C screening [facility] Start: 2008 HEPATITIS C SCREENING HEPATITIS C SCREENING [facility] Start: 2008 HIV SCREENING HIV SCREENING [facility] Start: 2008 HIV screening HIV Screening [facility] Start: 2008 SPIROMETRY SPIROMETRY [facility] Start: 06-17-2007 HPV VACCINE (2 - 3-dose series) HPV VACCINE (2 - 3-dose series) [facility] Start: 2005 HIV screening HIV screen [facility] Start: 2002 COVID-19 Vaccine (1) COVID-19 Vaccine (1) [facility] Work Phone: Start: 01-16-2001 PNEUMOCOCCAL (2 - PCV) PNEUMOCOCCAL (2 - PCV) [facility] Start: 01-16-2001 Pneumococcal 0-64 years Vaccine (2 - PCV) Pneumococcal 0-64 years Vaccine (2 - PCV) [facility] Start: 01-16-2001 Pneumococcal vaccination [facility] Start: 01-16-2001 Pneumococcal Vaccine: Pediatrics (0 to 5 Years) and At-Risk Patients (6 to 64 Years) (2 - PCV) Pneumococcal Vaccine: Pediatrics (0 to 5 Years) and At-Risk Patients (6 to 64 Years) (2 - PCV) [facility] Start: 11-07-1998 Varicella vaccination Varicella Vaccines (2 of 2 - 2-dose childhood series) [facility] Start: 1995 COVID-19 Vaccine (1) COVID-19 Vaccine (1) [facility] Start: 1990 COVID-19 VACCINE (#1) COVID-19 VACCINE (#1) [facility] Start: 1990 HEPATITIS B (1 of 3 - 3-dose series) HEPATITIS B (1 of 3 - 3-dose series) [facility] Start: 1990 Hepatitis B Vaccine (1 of 3 - 3-dose series) Hepatitis B Vaccine (1 of 3 - 3-dose series) [facility] Start: 1990 Hepatitis B Vaccines (1 of 3 - 3-dose series) Hepatitis B Vaccines (1 of 3 - 3-dose series) [facility] Start: 1990 HIV screening HIV Screening [facility] 25-hydroxyvitamin D3 [Mass/volume] in Serum or Plasma VITAMIN D 25 HYDROXY Lab Routine Vitamin D deficiency Ordered: 04/02/2022 [facility] Work Phone: Comment on above: Ordered: 04/02/2022 End: 03-11-2022 Bacteria identified in Lower respiratory specimen by Aerobe culture Respiratory culture Microbiology STAT STAT (Lab) for 1 Occurrences starting 03/11/2022 until 03/11/2022 [facility] Comment on above: STAT (Lab) for 1 Occurrences starting until 03/11/2022 End: 03-04-2019 Cardiac event monitor Cardiac event monitor Cardiac Services Routine Syncope, unspecified syncope type Lightheadedness Orthostatic hypotension Palpitations 1 Occurrences starting 03/04/2019 until 03/04/[address] [facility] Work Phone: Comment on above: 1 Occurrences starting 03/04/2019 until 03/04/2019 CBC W Auto Different ial panel - Blood CBC + DIFF Lab Routine Encounter for annual general medical examination without abnormal findings in adult Ordered: 04/02/2022 [facility] Work Phone: Comment on above: Ordered: 04/02/2022 Comprehensive metabo lic 2000 panel - Serum or Plasma COMP METABOLIC PANEL Lab Routine Encounter for annual general medical examination without abnormal findings in adult Ordered: 04/02/2022 [facility] Work Phone: Comment on above: Ordered: 04/02/2022 Comprehensive metabo lic 2000 panel - Serum or Plasma COMP METABOLIC PANEL Lab Routine Lightheaded Ordered: 04/10/2023 [facility] Work Phone: Comment on above: Ordered: 04/10/2023 End: 04-21-2019 Cortisol Total Cortisol Total Lab Routine Orthostatic hypotension 1 Occurrences starting 04/21/2019 until 04/21/2019 [facility] [place] Comment on above: 1 Occurrences starting 04/21/2019 until 04/21/2019 Cortisol Total Cortisol Total L ab Routine Orthostatic hypotension 04/21/2019 8:02 AM EST [facility] & [facility]FLUEN[facility] A/ B & RSV NAAT, ROUTINE COVID & INFLUENZA A/B & RSV NAAT, ROUTINE Microbiology Routine Viral URI with cough Ordered: 12/06/2022 [facility] Work Phone: Comment on above: Ordered: 12/06/2022 COVID & INFLUENZA A/ B & RSV NAAT, ROUTINE COVID & INFLUENZA A/B & RSV NAAT, ROUTINE Microbiology Routine Viral URI with cough Ordered: 05/23/2023 [facility] Work Phone: Comment on above: Ordered: 05/23/2023 EKG 12 Lead - Chest Pain EKG 12 Lead - Chest Pain ECG STAT 12/21/2018 9:09 PM [facility] Hemoglobin A1c in Blood HGB A1C Lab Routine Encounter for annual general medical examination without abnormal findings in adult Ordered: 04/02/2022 [facility] Work Phone: Comment on above: Ordered: 04/02/2022 Hemoglobin A1c in Blood HGB A1C Lab Routine Lightheaded Hypoglycemia Ordered: 04/10/2023 [facility] Work Phone: Comment on above: Ordered: 04/10/2023 End: 08-10-2021 INITIATE PACU OXYGEN THERAPY PROTOCOL Initiate PACU Oxygen Therapy Protocol Respiratory Care Routine Continuous until discontinued starting 08/10/2021 [employer] Work Phone: Comment on above: Continuous until discontinued starting 0 08/10/2021 End: 08-10-2021 Intermittent pulse oximetry Pulse Oximetry Spot Check Respiratory Care Routine One Time for 1 Occurrences starting 08/10/2021 until 08/10/2021 [employer] Work Phone: Comment on above: One Time for 1 Occurrences starting 07/19 until 08/10/2021 Iron and Iron bindin g capacity panel - Serum or Plasma IRON + TIBC Lab Routine Fatigue, unspecified type Ordered: 04/02/2022 [facility] Work Phone: Comment on above: Ordered: 04/02/2022 Iron and Iron bindin g capacity panel - Serum or Plasma IRON + TIBC Lab Routine Lightheaded Ordered: 04/10/2023 [facility] Work Phone: Comment on above: Ordered: 04/10/2023 Lipid 1996 panel - S abdias or Plasma LIPID PANEL BASIC Lab Routine Encounter for annual general medical examination without abnormal findings in adult Ordered: 04/02/2022 [facility] Work Phone: Comment on above: Ordered: 04/02/2022 End: 07-03-2025 MR Ankle - right WO contrast MRI ANKLE WO IVCON RIGHT Radiology Routine Chronic pain of right ankle 1 Occurrences starting 06/03/2024 until 07/03/2025 [facility] [employer] Work Phone: Comment on above: 1 Occurrences starting 06/03/2024 until 07/03/2025 Nasal Cannula Oxygen Nasal Cannu la Oxygen Respiratory Care Routine As Needed until discontinued starting 08/10/2021 [employer] Work Phone: Comment on above: As Needed until discontinued starting Nasal Cannula Oxygen Nasal Cannu la Oxygen Respiratory Care Routine As Needed until discontinued starting 08/10/2021 [employer] Work Phone: Comment on above: As Needed until discontinued starting Nonrebreather mask oxygen Nonreb reather mask oxygen Respiratory Care Routine As Needed until discontinued starting 08/10/2021 [employer] Work Phone: Comment on above: As Needed until discontinued starting Nonrebreather mask oxygen Nonreb reather mask oxygen Respiratory Care Routine As Needed until discontinued starting 08/10/2021 [employer] Work Phone: Comment on above: As Needed until discontinued starting Oxygen therapy [[facility] Data Set] Initiate Oxygen Therapy Protocol Respiratory Care Routine As Needed until discontinued starting 08/10/2021 [employer] Work Phone: Comment on above: As Needed until discontinued starting End: 08-10-2021 , urine LAB , urine LAB Lab STAT One Time for 1 Occurrences starting 08/10/2021 until 08/10/2021 [employer] Work Phone: Comment on above: One Time for 1 Occurrences starting 07/19 until 08/10/2021 End: 09-21-2023 Radiologic exam chest 2 views XR CHEST 2V FRONTAL/LAT Radiology Routine SOB (shortness of breath) Wheezing Mild intermittent asthma with acute exacerbation 1 Occurrences starting 08/22/2022 until 09/21/2023 [facility] [employer] Work Phone: Comment on above: 1 Occurrences starting 08/22/2022 until 09/21/2023 End: 03-11-2022 Respiratory pathogens DNA and RNA panel - Lower respiratory specimen by ALYCIA with non-probe detection Pneumonia PCR Panel Microbiology STAT STAT (Lab) for 1 Occurrences starting 03/11/2022 until 03/11/2022 [facility] Work Phone: Comment on above: STAT (Lab) for 1 Occurrences starting until 03/11/2022 ROUTINE FLU A/B + RSV ROUTINE FL U A/B + RSV Lab Routine Viral URI with cough Ordered: 12/06/2022 [facility] Work Phone: Comment on above: Ordered: 12/06/2022 SARS-CoV-2 (COVID-19 ) RNA [Presence] in Respiratory specimen by ALYCIA with probe detection COVID NAAT, UPPER RESPIRATORY, ROUTINE Microbiology Routine Viral URI with cough Ordered: 12/06/2022 [facility] [employer] Work Phone: Comment on above: Ordered: 12/06/2022 SPIROMETRY - BASELIN E AND POST DILATOR SPIROMETRY - BASELINE AND POST DILATOR PFT Routine Severe persistent asthma without complication 10/28/2023 1:23 PM EDT [facility] Work Phone: Spirometry panel Incentive koki metry Respiratory Care Routine Q1H PRN until discontinued starting 08/10/[address] [facility] Work Phone: Comment on above: Q1H PRN until discontinued starting 07/19 SPIROMETRY WITH DILA TOR IF OBSTRUCTED SPIROMETRY WITH DILATOR IF OBSTRUCTED PFT Routine Mild persistent asthma without complication 09/26/2022 12:32 PM EDT [facility] Work Phone: Thyrotropin [Units/volume] in Serum or Plasma TSH BLD Lab Routine Fatigue, unspecified type Ordered: 04/02/2022 [facility] Work Phone: Comment on above: Ordered: 04/02/2022 Thyroxine (T4) free [Mass/volume] in Serum or Plasma T4 FREE/FREE THYROX Lab Routine Fatigue, unspecified type Ordered: 04/02/2022 [facility] Work Phone: Comment on above: Ordered: 04/02/2022 Triiodothyronine (T3 ) Free [Mass/volume] in Serum or Plasma T3 FREE BLD Lab Routine Fatigue, unspecified type Ordered: 04/02/2022 [facility] Work Phone: Comment on above: Ordered: 04/02/2022 [facility] Immunizations Immunization Date Immunization Notes Care Provider Eliseo butterfield 11-30-2020 influenza, injectabl e, quadrivalent, preservative free Man Marcos DPM Work Phone: [facility] Work Phone: 11-30-2020 influenza virus vacc ine, unspecified formulation Robson Zuniga MD Work Phone: [facility] 11-25-2019 influenza, injectabl e, quadrivalent, contains preservative Donald Snowden DO Work Phone: [facility] 11-25-2019 influenza, injectable,quadrivalent, preservative free, pediatric Man Marcos DPM [facility] Phone[facility] Work Phone: 11-10-2019 tetanus toxoid, redu alessandra diphtheria toxoid, and acellular pertussis vaccine, adsorbed Anthony Weathers MD Work Phone: [facility] Work Phone: 01-11-2019 influenza, injectabl e, quadrivalent, contains preservative Liliya Baeza GOLF PLAYER ASSISTANT - ACCOUNTS PAYABLE ASSOCIATE Work Phone: [facility] Work Phone: 11-17-2017 influenza, injectabl e, quadrivalent, contains preservative [facility] [place] 11-18-2016 influenza, injectabl e, quadrivalent, contains preservative [facility], [place] 12-19-2015 influenza, injectabl e, quadrivalent, contains preservative Donald Kohara DO Work Phone: [facility] 12-19-2015 influenza, injectabl e, quadrivalent, preservative free [facility] 12-07-2014 influenza nasal, unspecified formulation Donald Kohara DO Work Phone: [facility] 12-07-2014 influenza virus vacc ine, unspecified formulation [facility] 12-07-2014 influenza, seasonal, injectable, preservative free Donald Kohara DO Work Phone: [facility] 12-16-2013 influenza virus vacc ine, unspecified formulation [facility] , [place] 12-16-2013 influenza, seasonal, injectable Donald Kohara DO Work Phone: [facility] 05-20-2007 human papilloma viru s vaccine, quadrivalent [facility], [place] 05-20-2007 tetanus toxoid, redu alessandra diphtheria toxoid, and acellular pertussis vaccine, adsorbed [facility], [place] 01-03-2007 influenza virus vacc ine, whole virus [facility] 12-14-2005 influenza virus vacc ine, whole virus [facility], [place] 07-16-2002 diphtheria, tetanus toxoids and acellular pertussis vaccine, unspecified formulation [facility] , [place] 01-17-2000 pneumococcal polysaccharide vaccine, 23 valent [facility], [place] 10-10-1998 measles, mumps and rubella virus vaccine [facility] 10-23-1995 diphtheria, tetanus toxoids and acellular pertussis vaccine, unspecified formulation [facility] , [place] 10-23-1995 poliovirus vaccine, inactivated Donald Kohara DO Work Phone: [facility] 10-23-1995 poliovirus vaccine, unspecified formulation [facility] [place] 11-29-1994 varicella virus vaccine [facility] 10-12-1991 diphtheria, tetanus toxoids and acellular pertussis vaccine, unspecified formulation [facility] [place] 10-12-1991 poliovirus vaccine, inactivated Donald Kohara DO Work Phone: [facility] 10-12-1991 poliovirus vaccine, unspecified formulation [facility] , [place] 07-13-1991 haemophilus influenz ae type b vaccine, conjugate unspecified formulation [facility] 07-13-1991 haemophilus influenz ae type b vaccine, PRP-T conjugate Donald Kohara DO Work Phone: [facility] 07-13-1991 measles, mumps and rubella virus vaccine [facility], [place] 1990 diphtheria, tetanus toxoids and acellular pertussis vaccine, unspecified formulation [facility] , [place] 1990 haemophilus influenz ae type b vaccine, conjugate unspecified formulation [facility], [place] 1990 haemophilus influenz ae type b vaccine, PRP-T conjugate Donald Kohara DO Work Phone: [facility] 1990 diphtheria, tetanus toxoids and acellular pertussis vaccine, unspecified formulation [facility] , [place] 1990 haemophilus influenz ae type b vaccine, conjugate unspecified formulation [facility], [place] 1990 haemophilus influenz ae type b vaccine, PRP-T conjugate Donald Kohara DO Work Phone: [facility] 1990 poliovirus vaccine, inactivated Donald Kohara DO Work Phone: [facility] 1990 poliovirus vaccine, unspecified formulation [facility] , [place] 1990 diphtheria, tetanus toxoids and acellular pertussis vaccine, unspecified formulation [facility] , [place] 1990 haemophilus influenz ae type b vaccine, conjugate unspecified formulation [facility], [place] 1990 haemophilus influenz ae type b vaccine, PRP-T conjugate Donald Snowden DO Work Phone: [facility] 1990 poliovirus vaccine, inactivated Donald Snowden DO Work Phone: [facility] 1990 poliovirus vaccine, unspecified formulation [facility] , [place] Payers Date Payer Category Payer Self-pay 2023 [employer] [facility] BLUE CARD PPO OOS [id number] 2022 Unknown [id number] 2021 Unknown 2019 Unknown BCBS BCBS OUT OF STATE xxxxxxxxxxxxxxx 2019-Present [address] [place] [address] [id number] 2019 Unknown [id number] 2018 Unknown UMR UMR xxxxxxxx 2018-Present [address] [id number] xxxxxxxx [id number] 1990 Unknown [id number] 1990 Unknown [id number] 1990 Unknown [id number] 1990 Unknown [id number] 1990 Unknown [id number] Unknown [id number] Unknown [id number] Social History Date Type Detail Facility Start: 04-15-2019 End: 04-02-2022 Tobacco smoking status NHIS Never smoker [place], [place] Start: 04-15-2019 End: 08-10-2021 Alcohol intake Current non-drinker of alcohol (finding) [facility] Work Phone: Start: 1990 Sex Assigned At Not on file M [place], [place] Start: 12-21-2018 End: 07-11-2022 Alcohol intake No [facility] Start: 07-29-2020 End: 04-02-2022 Tobacco use and exposure Never used [facility] Start: 05-31-2020 End: 03-27-2022 History SDOH Alcohol Frequency 1 [facility] Work Phone: Start: 05-31-2020 History SDOH Alcohol Std Drinks 99 [facility] Work Phone: Start: 05-31-2020 End: 03-27-2022 History SDOH Financial 3 [facility] Work Phone: Start: 05-31-2020 End: 03-27-2022 History SDOH Transport Med 2 [facility] Work Phone: Start: 07-31-2021 End: 03-11-2022 Exposure to SARS-CoV-2 (event) Not sure [facility] Start: 03-27-2022 History SDOH Alcohol Std Drinks 0 [facility] Start: 03-27-2022 History SDOH Social Connections Phone 5 [facility] Start: 03-27-2022 End: 07-11-2022 History of Social function [facility] Do you belong to any clubs or organizations such as jew groups, [employer], nvite or athletic groups, or school groups? No [facility] Are you now , , , , never or living with a partner? [facility] How often to you hav e a drink containing alcohol? Monthly or less [facility] How many standard dr inks containing alcohol do you have on a typical day? Patient does not drink [facility] How often do you hav e 6 or more drinks on 1 occasion? Never [facility] Do you feel stress - tense, restless, nervous, or anxious, or unable to sleep at night because your mind is troubled all the time - these days [OSQ] Very much [facility] (I/We) worried wheth er (my/our) food would run out before (I/we) got money to buy more. Never true [facility] Start: 03-11-2023 End: 06-03-2024 Alcohol intake Current drinker of alcohol (finding) [facility] Start: 03-11-2023 Alcohol Comment social [facility] Sex Assigned At [facility] How hard is it for y ou to pay for the very basics like food, housing, medical care, and heating Not very hard [facility] Do you belong to any clubs or organizations such as jew groups, [employer], nvite or athletic groups, or school groups? Yes [facility] How hard is it for y ou to pay for the very basics like food, housing, medical care, and heating Somewhat hard [facility] Do you feel stress - tense, restless, nervous, or anxious, or unable to sleep at night because your mind is troubled all the time - these days [OSQ] Rather much [facility] Medical Equipment Procedure Code Equipment Code Equipment Origin al Text Equipment Identifier Dates [id number], [id number], [id number], [id number] Start: 04-11-2023 End: 06-02-2024 Comment on above: Use as instructed Goals Date Patient Goal Desired Activity /State Comment on above: Self-Management Plan : Anxiety/Depression Patient Stated Goal: To continue to feel well emotionally. Barriers to success: stress Plan for overcoming my barriers: Take medication daily as prescribed. Encouraged and recommended by provider. Confidence: 10/27 Date goal set: 10/07/18 Patient given educational materials below via AVS. Patient received counseling about current lifestyle goal. Patient was encouraged to take medications as prescribed. Discussed the importance of counseling. Discussed social support resources. Discussed potentially disabling symptoms of their anxiety/depression, which could potentially render them unable to function adequately. Provider Goal: To find the value of finding pleasure in daily living. Discussed how relationships, personal fulfillment, and optimism can work together to combat anxiety/depression. Patient given after visit summary which includes educational information on Depression and Anxiety. Discussed use, benefit, and side effects of prescribed medications and barriers to medication compliance addressed, if applicable. All patient questions answered and patient voiced understanding. Patient was given a copy of this, and was advised to call if any questions. Formatting of this n ote might be different from the original. Self-Management Plan: Anxiety/Depression Patient Stated Goal: To continue to feel well emotionally. Barriers to success: stress Plan for overcoming my barriers: Take medication daily as prescribed. Encouraged and recommended by provider. Confidence: 10/27 Date goal set: 10/07/18 Patient given educational materials below via AVS. Patient received counseling about current lifestyle goal. Patient was encouraged to take medications as prescribed. Discussed the importance of counseling. Discussed social support resources. Discussed potentially disabling symptoms of their anxiety/depression, which could potentially render them unable to function adequately. Provider Goal: To find the value of finding pleasure in daily living. Discussed how relationships, personal fulfillment, and optimism can work together to combat anxiety/depression. Patient given after visit summary which includes educational information on Depression and Anxiety. Discussed use, benefit, and side effects of prescribed medications and barriers to medication compliance addressed, if applicable. All patient questions answered and patient voiced understanding. Patient was given a copy of this, and was advised to call if any questions. Functional Status Date Assessment Result Facility 04-13-2023 Are you deaf, or do you have serious difficulty hearing No 04/13/2023 12:36 PM Bekah Broderick RN No [facility] 04-13-2023 Are you blind, or do you have serious difficulty seeing, even when wearing glasses No 04/13/2023 12:36 PM Bekah Broderick, POWER No [facility] 04-13-2023 Do you have serious difficulty walking or climbing stairs No 04/13/2023 12:36 PM Bekah Broderick RN No [facility] 04-13-2023 Do you have difficul ty dressing or bathing No 04/13/2023 12:36 PM Bekah Broderick RN No [facility] 04-13-2023 Because of a physica l, mental, or emotional condition, do you have difficulty doing errands alone such as visiting a physician's office or shopping No 04/13/2023 12:36 PM Bekah Broderick RN No [facility] 04-11-2023 Functional Status Assistive Device None [facility] 04-11-2023 Functional Status Standard Safet y ID band on, Safety level maintained [facility] Mental Status Date Assessment Result Facility 04-13-2023 Because of a physica l, mental, or emotional condition, do you have serious difficulty concentrating, remembering, or making decisions No 04/13/2023 12:36 PM Bekah Broderick, POWER [facility] 04-11-2023 Mental Status Orientation Oriented x 4 [facility] 04-11-2023 Mental Status [facility] Clinical Notes 08-08-2016 to 08-30-2024 Telephone Encounter - Kimberly Nixon MA - 08/30/2024 8:06 AM EDTTelephone Encounter - Kimberly Nixon MA - 08/30/2024 8:06 AM EDTTelephone Encounter - Kimberly Nixon MA - 08/30/2024 8:05 AM EDT Note Date & Type Note Facility 08-30-2024 Telephone encounter Note Refill sent via refill portal Kimberly Nixon MA [facility] 08-30-2024 Miscellaneous Notes Refill sent via refill portal Kimberly Nixon MA documented in this encounter [facility] 08-30-2024 Telephone encounter Note IRENE: 06/02/2024 Zepbound is no longer covered, but Wegovy is. Currently taking Zepound 5 mg Please send in wegovy thank you Kimberly Nixon MA [facility] 08-30-2024 Miscellaneous Notes IRENE: 06/02/2024 Zepbound is no longer covered, but Wegovy is. Currently taking Zepound 5 mg Please send in wegovy thank you Kimberly Nixon MA documented in this encounter [facility] 08-26-2024 Telephone encounter Note Confirmation of Order for Nebulizer and supplies signed and faxed to [facility]. 2 documents sent to scanning. Chad Gore [facility] 08-26-2024 Miscellaneous Notes Confirmation of Order for Nebulizer and supplies signed and faxed to [facility]. 2 documents sent to scanning. Chad Gore documented in this encounter [facility] 08-06-2024 Telephone encounter Note Called to schedule new patient appointment, jorje Arana August 06, 2024 9:58 AM [facility] 08-06-2024 Miscellaneous Notes Called to schedule new patient appointment, jorje Arana August 06, 2024 9:58 AM documented in this encounter [facility] 07-29-2024 Telephone encounter Note Prescription Refill Information The patient has been identified by name and date of : Yes Caregiver verified no other encounters exist for this prescription request: Yes Caregiver confirmed with patient/requestor that no other refills are due, in the near future, with this provider at this time: Yes The last office visit in the department: 08/06/23 Does the patient have a future office visit with this provider/department: No Requested Prescriptions Pending Prescriptions Disp Refills lamoTRIgine (LAMICTAL) 100 mg tablet 90 tablet 0 Sig: TAKE 1 TABLET BY MOUTH EVERYDAY AT BEDTIME Refused Prescriptions Disp Refills lamoTRIgine (LAMICTAL) 25 mg tablet [Pharmacy Med Name: LAMOTRIGINE 25 MG TABLET] 90 tablet 3 Sig: TAKE 1 TABLET BY MOUTH EVERYDAY AT BEDTIME Mily Everett MA July 29, 2024 11:29 AM [facility] 07-29-2024 Miscellaneous Notes Prescription Refill Information The patient has been identified by name and date of : Yes Caregiver verified no other encounters exist for this prescription request: Yes Caregiver confirmed with patient/requestor that no other refills are due, in the near future, with this provider at this time: Yes The last office visit in the department: 08/06/23 Does the patient have a future office visit with this provider/department: No Requested Prescriptions Pending Prescriptions Disp Refills lamoTRIgine (LAMICTAL) 100 mg tablet 90 tablet 0 Sig: TAKE 1 TABLET BY MOUTH EVERYDAY AT BEDTIME Refused Prescriptions Disp Refills lamoTRIgine (LAMICTAL) 25 mg tablet [Pharmacy Med Name: LAMOTRIGINE 25 MG TABLET] 90 tablet 3 Sig: TAKE 1 TABLET BY MOUTH EVERYDAY AT BEDTIME Mily Everett MA July 29, 2024 11:29 AM documented in this encounter [facility] 07-21-2024 Telephone encounter Note Refill with dose increase sent via refill portal Kimberly Nixon MA [facility] 07-21-2024 Miscellaneous Notes Refill with dose increase sent via refill portal Kimberly Nixon MA documented in this encounter [facility] 07-21-2024 Telephone encounter Note IRENE: 06/02/2024 Patient is asking to increase Zepbound to be increased Please see pended order for [address] Martínez last visit below: Start Zepbound 2.5 mg sq per week If you've taken 2.5 mg for 4 weeks (or more) & feel that a dosage increase would be helpful, then reach out to me via Deng Nixon MA [facility] 07-21-2024 Miscellaneous Notes IRENE: 06/02/2024 Patient is asking to increase Zepbound to be increased Please see pended order for [address] Martínez last visit below: Start Zepbound 2.5 mg sq per week If you've taken 2.5 mg for 4 weeks (or more) & feel that a dosage increase would be helpful, then reach out to me via Deng Nixon MA documented in this encounter [facility] 06-30-2024 Telephone encounter Note Images from the original note were not included. IRVIN KLINE (Isaac: [id number]) PA Need Help? Call us at Outcome [facility] Your [facility] request has been approved. Additional information will be provided in the approval communication. (Message 1140) Effective Date: 06/29/2024 Authorization Expiration Date: 06/29/2025 Drug Nucala 100MG/ML auto-injectors Form [employer] Electronic PA Form (2016 [place] [facility] 06-30-2024 Miscellaneous Notes Images from the original note were not included. IRVIN KLINE (Isaac: [id number]) PA Need Help? Call us at Outcome [facility] Your PA request has been approved. Additional information will be provided in the approval communication. (Message 1142) Effective Date: 06/29/2024 Authorization Expiration Date: 06/29/2025 Drug Nucala 100MG/ML auto-injectors Form [employer] Electronic PA Form (2016 [place] Images from the original note were not included. IRVIN KLINE (Isaac: [id number]) Need Help? Call us at Status Sent to Plan today Drug Nucala 100MG/ML auto-injectors Form [employer] Electronic PA Form (2016 NCPDP documented in this encounter [facility] 06-29-2024 Telephone encounter Note Images from the original note were not included. IRVIN KLINE (Isaac: [id number]) Need Help? Call us at Status Sent to Plan today Drug Nucala 100MG/ML auto-injectors Form [employer] Electronic PA Form (2016 NCPDP [facility] 06-21-2024 Telephone encounter Note Last office visit 03/09/24 [facility] 06-21-2024 Miscellaneous Notes Last office visit 03/09/24 documented in this encounter [facility] 06-08-2024 Telephone encounter Note Received approval 06/03/2024 through 01/29/2025 Send for scanning. Kimberly Nixon MA [facility] 06-08-2024 Miscellaneous Notes Received approval 06/03/2024 through 01/29/2025 Send for scanning. 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 Author Type: LICENSED NURSE Type: Progress Notes Filed: 06/03/2024 09:23 Note Text: Per Dr. Pittman, Irvin was provided with active ankle brace, size L, and instructed/educated in its application, wear, and care. All questions were answered, and patient was able to demonstrate competence with the necessary skills to utilize the above equipment. Billed to humberto. Ayala Dunlap LPN [facility] 06-03-2024 History of Presen t illness Narrative Per Dr. Pittman, Irvin was provided with active ankle brace, size L, and instructed/educated in its application, wear, and care. All questions were answered, and patient was able to demonstrate competence with the necessary skills to utilize the above equipment. Billed to humberto. Ayala Dunlap LPN Desi Wen is a 34-year-old female presenting for follow-up of chronic right ankle instability. Chronic Right Ankle Instability: - Symptoms persisting for over a year. - Previous treatments: physical therapy, bracing, appropriate footwear, and anti-inflammatory medications. - Last visit in May 2023 showed 25% improvement with therapy. - Missed some therapy sessions due to hypoglycemia. - Currently experiencing worsening symptoms, including the ankle giving out and twisting inward, leading to near falls. - Pain localized to the lateral aspect of the ankle, described as shooting when weight-bearing. 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 Musculoskeletal: (+) right ankle pain, (+) right ankle instability PAST MEDICAL HISTORY Diagnosis Date Anemia Asthma (HCC) Family History Problem Relation Age of Onset Heart Attack Maternal Grandfather ALLERGIES Allergen Reactions Rocephin [Ceftriaxo* Anaphylaxis per pt mother was 3yo Objective Last menstrual period 07/06/2023. - Cardiovascular: Dorsalis pedis and posterior tibial pulses palpable bilaterally; capillary refill time brisk bilaterally. - Skin: No open sores or calluses on bilateral feet; skin well-hydrated, normal color, normal temperature. - Musculoskeletal: - Right Foot and Ankle: - Mild pain with plantar flexion; pain with resistive plantar flexion. - MMT: 5/5 for dorsiflexion, plantar flexion, inversion, eversion. - Pain along the inferior aspect of the lateral malleolus, anterior talofibular ligament, calcaneofibular ligament, and posterior talofibular ligament. - Mild discomfort along the proximal lateral malleolus and peroneus brevis. - No pain with palpation of the peroneus brevis at the insertion of the fifth metatarsal base; no pain along the peroneus brevis inferior to the lateral malleolus. - Anterior Drawer Test: No laxity. - Talar Tilt Test: Positive for pain. - Left Foot and Ankle: - Anterior Drawer Test: No laxity. Labs: (No diagnostics in this category) Tests: (No diagnostics in this category) Imaging: (03/11/2023) X-ray Right Ankle: Normal bony density with no acute fracture or dislocation noted, flattening of the right foot on lateral view, well-corticated posterior ostrigonum of the right lower extremity, and a heel spur on the plantar calcaneus 1. Right ankle instability (M25.371) 2. Chronic pain of right ankle (M25.571) - Chronic instability and pain in the right ankle, worsening over the past year despite physical therapy, bracing, and anti-inflammatory use. - Physical exam reveals mild pain with plantar flexion, pain along the inferior aspect of the right lateral malleolus, and positive pain with talar tilt of the right lower extremity. - X-rays from March 11, 2023 show normal bony density, no acute fracture or dislocation, flattening of the right foot on the lateral view, a well-corticated posterior ostrigonum, and a heel spur on the plantar calcaneus. - Suspect chronic instability of the right ankle; differential includes chronic ligament tear. - Ordered MRI of the right ankle to assess for potential ligament tears or other abnormalities. - Discussed possibility of surgical intervention if MRI demonstrates significant instability or tearing. - Will review MRI results and follow up with patient. Attestation Recording using iZotope software for draft documentation of the visit was discussed with the patient/authorized agency service representative; all questions welcomed and answered. Patient/authorized agency service representative agreed to proceed Arlene Pittman DPM AMB ROOMING INTAKE FLOWSHEET DATA Pain Pain Level: 5 Pain Location: Ankle-Right Description: Shooting Duration Units: Months Frequency: Intermittent Intervention/Comfort measure: Relaxation, Reposition Patient presents with: Right Ankle - Follow Up, Pain, Established Patient, Weakness Ayala Dunlap LPN documented in this encounter [facility] 06-03-2024 Note HNO ID: [id number] Author: ARLENE PITTMAN, ? Service: ? Author Type: Physician Type: Progress Notes Filed: 06/03/2024 09:18 Note Text: Desi Wen is a 34-year-old female presenting for follow-up of chronic right ankle instability. Chronic Right Ankle Instability: - Symptoms persisting for over a year. - Previous treatments: physical therapy, bracing, appropriate footwear, and anti-inflammatory medications. - Last visit in May 2023 showed 25% improvement with therapy. - Missed some therapy sessions due to hypoglycemia. - Currently experiencing worsening symptoms, including the ankle giving out and twisting inward, leading to near falls. - Pain localized to the lateral aspect of the ankle, described as shooting when weight-bearing. 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 Musculoskeletal: (+) right ankle pain, (+) right ankle instability PAST MEDICAL HISTORY Diagnosis Date Anemia Asthma (HCC) Family History Problem Relation Age of Onset Heart Attack Maternal Grandfather ALLERGIES Allergen Reactions Rocephin [Ceftriaxo* Anaphylaxis per pt mother was 3yo Objective Last menstrual period 07/06/2023. - Cardiovascular: Dorsalis pedis and posterior tibial pulses palpable bilaterally; capillary refill time brisk bilaterally. - Skin: No open sores or calluses on bilateral feet; skin well-hydrated, normal color, normal temperature. - Musculoskeletal: - Right Foot and Ankle: - Mild pain with plantar flexion; pain with resistive plantar flexion. - MMT: 5/5 for dorsiflexion, plantar flexion, inversion, eversion. - Pain along the inferior aspect of the lateral malleolus, anterior talofibular ligament, calcaneofibular ligament, and posterior talofibular ligament. - Mild discomfort along the proximal lateral malleolus and peroneus brevis. - No pain with palpation of the peroneus brevis at the insertion of the fifth metatarsal base; no pain along the peroneus brevis inferior to the lateral malleolus. - Anterior Drawer Test: No laxity. - Talar Tilt Test: Positive for pain. - Left Foot and Ankle: - Anterior Drawer Test: No laxity. Labs: (No diagnostics in this category) Tests: (No diagnostics in this category) Imaging: (03/11/2023) X-ray Right Ankle: Normal bony density with no acute fracture or dislocation noted, flattening of the right foot on lateral view, well-corticated posterior ostrigonum of the right lower extremity, and a heel spur on the plantar calcaneus 1. Right ankle instability (M25.371) 2. Chronic pain of right ankle (M25.571) - Chronic instability and pain in the right ankle, worsening over the past year despite physical therapy, bracing, and anti-inflammatory use. - Physical exam reveals mild pain with plantar flexion, pain along the inferior aspect of the right lateral malleolus, and positive pain with talar tilt of the right lower extremity. - X-rays from March 11, 2023 show normal bony density, no acute fracture or dislocation, flattening of the right foot on the lateral view, a well-corticated posterior ostrigonum, and a heel spur on the plantar calcaneus. - Suspect chronic instability of the right ankle; differential includes chronic ligament tear. - Ordered MRI of the right ankle to assess for potential ligament tears or other abnormalities. - Discussed possibility of surgical intervention if MRI demonstrates significant instability or tearing. - Will review MRI results and follow up with patient. Attestation Recording using iZotope software for draft documentation of the visit was discussed with the patient/authorized agency service representative; all questions welcomed and answered. Patient/authorized agency service representative agreed to proceed Arlene Pittman DPM [facility] 06-03-2024 Instructions Arlene Pittman - 06/03/2024 9:14 AM EDT A right ankle MRI has been ordered to evaluate the chronic instability and pain in your right ankle. You will receive further instructions on scheduling the MRI. Continue using your ankle brace as needed for support. I will call you with the MRI results and discuss any further treatment options, which may include surgical repair if indicated. documented in this encounter [facility] 06-03-2024 Note HNO ID: [id number] Author: AYALA DUNLAP LPN Service: ? Author Type: LICENSED NURSE Type: Progress Notes Filed: 06/03/2024 09:18 Note Text: AMB ROOMING INTAKE FLOWSHEET DATA Pain Pain Level: 5 Pain Location: Ankle-Right Description: Shooting Duration Units: Months Frequency: Intermittent Intervention/Comfort measure: Relaxation, Reposition Patient presents with: Right Ankle - Follow Up, Pain, Established Patient, Weakness Ayala Dunlap LPN [facility] 06-02-2024 Instructions Dylan Topete MD - 06/02/2024 2:46 PM EDT Add OTC vitamin B12 - 1000 mcg daily Start Zepbound 2.5 mg sq per week If you've taken 2.5 mg for 4 weeks (or more) & feel that a dosage increase would be helpful, then [facility] with [facility] (weight management) Follow up in 6 months with me documented in this encounter [facility] 06-02-2024 Note HNO ID: [id number] Author: DYLAN TOPETE MD Service: ? Author Type: Physician Type: Progress Notes Filed: 06/02/2024 14:58 Note Text: Subjective: Irvin Kline presents for a follow-up visit. Answers submitted by the patient for this visit: Core Review of Systems (Submitted on 05/26/2024) Fever : No Night sweats: No Recent unintentional weight change: No Nasal Congestion: No Hearing Loss: No Vision Disturbance: No A cough: No Difficulty Breathing?: No Leg Swelling: No Nausea: No Diarrhea: No Black tarry stools: No Difficulty Urinating?: No Awaken at Night More Than Once to Urinate?: No Joint pain or stiffness: No Muscle aches: No Leg or Foot Discomfort at Night?: No A rash: No Dizziness: No Headaches: No Memory Loss: No Seizures: No Current Outpatient Medications Medication Sig traZODone (DESYREL) 100 mg tablet take 1 tablet 1 time a day (at bedtime) busPIRone (BUSPAR) 15 mg tablet Take 15 mg by mouth three times a day. citalopram (CELEXA) 40 mg tablet Take by mouth once daily. montelukast (SINGULAIR) 10 mg tablet TAKE 1 TABLET BY MOUTH EVERY DAY albuterol HFA (PROVENTIL HFA, VENTOLIN HFA) 90 mcg/actuation inhaler INHALE 2 PUFFS INSTRUCTED EVERY 4 HOURS NEEDED FOR WHEEZING/SHORTNESS OF BREATH. budesonide (PULMICORT) 0.5 mg/2 mL nebulizer solution USE 2 ML VIA NEBULIZER EVERY 12 HOURS. INHALE OVER 5-15 MINUTES mepolizumab (NUCALA) 100 mg/mL auto-injector INJECT 1 PEN UNDER THE SKIN EVERY 28 DAYS fluticasone-salmeterol (WIXELA INHUB) 250-50 mcg/dose inhaler INHALE 1 PUFF INSTRUCTED TWO TIMES A DAY. Blood-Glucose Sensor (DEXCOM G7 SENSOR) mallika Use as directed to monitor blood glucose 4-6 times per day. Reactive hypoglycemia [E16.1] Blood-Glucose Meter,Continuous (DEXCOM G7 CEMETERY VAULT INSTALLER) misc Use as directed to monitor blood glucose 4-6 times per day. Reactive hypoglycemia [E16.1] metFORMIN ER (GLUCOPHAGE XR) 500 mg 24 hr tablet Take 1 tablet by mouth three times a day with meals. lamoTRIgine (LAMICTAL) 100 mg tablet TAKE 1 TABLET BY MOUTH EVERYDAY AT BEDTIME blood sugar diagnostic (BLOOD GLUCOSE TEST) test strip Use as instructed to check blood glucose level one time daily fluticasone (FLONASE) 50 mcg/actuation nasal spray Use 1 [place] in each nostril once daily. Lancets lancets Use as instructed Blood-Glucose Meter 1 Each once daily. ferrous sulfate 325 mg (65 mg iron) tablet Take 1 tablet by mouth two times a day. albuterol (PROVENTIL) 2.5 mg /3 mL (0.083 %) nebulizer solution Use 3 mL via nebulizer every 4 hours as needed for wheezing/shortness of breath. Inhale by nebulizer over 5-15 minutes. albuterol HFA (PROAIR HFA) 90 mcg/actuation inhaler Inhale 2 Puffs as instructed every 6 hours as needed for wheezing/shortness of breath. mepolizumab (NUCALA) 100 mg injection Inject 100 mg subcutaneously every 4 weeks. Nebulizer and Compressor For Neb Use as directed FEXOFENADINE HCL (LAQUITA ALLERGY ORAL) Take by mouth once daily. citalopram hydrobromide (CELEXA) 10 mg tablet Take 1 tablet by mouth every other day. cariprazine (VRAYLAR) 3 mg capsule Take 1 capsule by mouth once daily. Blood-Glucose Transmitter (DEXCOM G6 TRANSMITTER) mallika 1 Each once daily. ergocalciferol 50,000 unit capsule (VITAMIN D2, DRISDOL) Take 1 capsule by mouth one time a week. No current facility-administered medications for this visit. Objective: BP 117/61 Pulse 74 Wt 118.1 kg (260 lb 5.8 oz) LMP 07/06/2023 (Exact Date) BMI 44.69 kg/m? BMI 44.69 kg/(m2) Assessment AND Plan: (E16.1) Reactive hypoglycemia (primary encounter diagnosis) (J45.50) Asthma, late onset, severe persistent, uncomplicated (HCC) (E66.813, E66.01, Z68.41) Class 3 severe obesity due to excess calories with serious comorbidity and body mass index (BMI) of 40.0 to 44.9 in adult (HCC) (E53.8) Vitamin B12 deficiency Her CGM data from the past 14 days was downloaded AND reviewed during the visit. Her time in range data is as follows: Very low (<55%): <1% Low (55-70 mg/dL): 0% Normal (70-180 mg/dL) 99% High (180-250 mg/dL): 1% Very high (>250 mg/dL): 0% Comment about the pattern(s) observed: Normal glycemic variation most of the time. She has occasional low blood sugars in the middle of the night (thought to be falsely-low readings due to sensor compression) Issues discussed: Irvin continues to do well with ongoing lifestyle efforts AND use of metformin. Hypoglycemic events are rare AND most are likely falsely-low readings. We discussed the possibility of discontinuing the CGM device, but she is concerned about hypoglycemia unawareness - I never know when I'm low; will continue for now She has class 3 obesity associated with multiple medical problems that are driven by obesity. She would benefit from 50-80 lbs weight loss. Zepbound MAY be available on her formulary with prior authorization. Will pursue this for her. Vitamin B12 is low-normal. Asso (more content not included)... [facility] 06-02-2024 History of Presen t illness Narrative Subjective: Irvin Kline presents for a follow-up visit. Answers submitted by the patient for this visit: Core Review of Systems (Submitted on 05/26/2024) Fever : No Night sweats: No Recent unintentional weight change: No Nasal Congestion: No Hearing Loss: No Vision Disturbance: No A cough: No Difficulty Breathing?: No Leg Swelling: No Nausea: No Diarrhea: No Black tarry stools: No Difficulty Urinating?: No Awaken at Night More Than Once to Urinate?: No Joint pain or stiffness: No Muscle aches: No Leg or Foot Discomfort at Night?: No A rash: No Dizziness: No Headaches: No Memory Loss: No Seizures: No Current Outpatient Medications Medication Sig traZODone (DESYREL) 100 mg tablet take 1 tablet 1 time a day (at bedtime) busPIRone (BUSPAR) 15 mg tablet Take 15 mg by mouth three times a day. citalopram (CELEXA) 40 mg tablet Take by mouth once daily. montelukast (SINGULAIR) 10 mg tablet TAKE 1 TABLET BY MOUTH EVERY DAY albuterol HFA (PROVENTIL HFA, VENTOLIN HFA) 90 mcg/actuation inhaler INHALE 2 PUFFS INSTRUCTED EVERY 4 HOURS NEEDED FOR WHEEZING/SHORTNESS OF BREATH. budesonide (PULMICORT) 0.5 mg/2 mL nebulizer solution USE 2 ML VIA NEBULIZER EVERY 12 HOURS. INHALE OVER 5-15 MINUTES mepolizumab (NUCALA) 100 mg/mL auto-injector INJECT 1 PEN UNDER THE SKIN EVERY 28 DAYS fluticasone-salmeterol (WIXELA INHUB) 250-50 mcg/dose inhaler INHALE 1 PUFF INSTRUCTED TWO TIMES A DAY. Blood-Glucose Sensor (DEXCOM G7 SENSOR) mallika Use as directed to monitor blood glucose 4-6 times per day. Reactive hypoglycemia [E16.1] Blood-Glucose Meter,Continuous (DEXCOM G7 CEMETERY VAULT INSTALLER) misc Use as directed to monitor blood glucose 4-6 times per day. Reactive hypoglycemia [E16.1] metFORMIN ER (GLUCOPHAGE XR) 500 mg 24 hr tablet Take 1 tablet by mouth three times a day with meals. lamoTRIgine (LAMICTAL) 100 mg tablet TAKE 1 TABLET BY MOUTH EVERYDAY AT BEDTIME blood sugar diagnostic (BLOOD GLUCOSE TEST) test strip Use as instructed to check blood glucose level one time daily fluticasone (FLONASE) 50 mcg/actuation nasal spray Use 1 [place] in each nostril once daily. Lancets lancets Use as instructed Blood-Glucose Meter 1 Each once daily. ferrous sulfate 325 mg (65 mg iron) tablet Take 1 tablet by mouth two times a day. albuterol (PROVENTIL) 2.5 mg /3 mL (0.083 %) nebulizer solution Use 3 mL via nebulizer every 4 hours as needed for wheezing/shortness of breath. Inhale by nebulizer over 5-15 minutes. albuterol HFA (PROAIR HFA) 90 mcg/actuation inhaler Inhale 2 Puffs as instructed every 6 hours as needed for wheezing/shortness of breath. mepolizumab (NUCALA) 100 mg injection Inject 100 mg subcutaneously every 4 weeks. Nebulizer and Compressor For Neb Use as directed FEXOFENADINE HCL (LAQUITA ALLERGY ORAL) Take by mouth once daily. citalopram hydrobromide (CELEXA) 10 mg tablet Take 1 tablet by mouth every other day. cariprazine (VRAYLAR) 3 mg capsule Take 1 capsule by mouth once daily. Blood-Glucose Transmitter (DEXCOM G6 TRANSMITTER) mallika 1 Each once daily. ergocalciferol 50,000 unit capsule (VITAMIN D2, DRISDOL) Take 1 capsule by mouth one time a week. No current facility-administered medications for this visit. Objective: BP 117/61 Pulse 74 Wt 118.1 kg (260 lb 5.8 oz) LMP 07/06/2023 (Exact Date) BMI 44.69 kg/m BMI 44.69 kg/(m^2) Assessment & Plan: (E16.1) Reactive hypoglycemia (primary encounter diagnosis) (J45.50) Asthma, late onset, severe persistent, uncomplicated (HCC) (E66.813, E66.01, Z68.41) Class 3 severe obesity due to excess calories with serious comorbidity and body mass index (BMI) of 40.0 to 44.9 in adult (HCC) (E53.8) Vitamin B12 deficiency Her CGM data from the past 14 days was downloaded & reviewed during the visit. Her time in range data is as follows: Very low (<55%): <1% Low (55-70 mg/dL): 0% Normal (70-180 mg/dL) 99% High (180-250 mg/dL): 1% Very high (>250 mg/dL): 0% Comment about the pattern(s) observed: Normal glycemic variation most of the time. She has occasional low blood sugars in the middle of the night (thought to be falsely-low readings due to sensor compression) Issues discussed: Irvin continues to do well with ongoing lifestyle efforts & use of metformin. Hypoglycemic events are rare & most are likely falsely-low readings. We discussed the possibility of discontinuing the CGM device, but she is concerned about hypoglycemia unawareness - I never know when I'm low; will continue for now She has class 3 obesity associated with multiple medical problems that are driven by obesity. She would benefit from 50-80 lbs weight loss. Zepbound MAY be available on her formulary with prior authorization. Will pursue this for her. Vitamin B12 is low-normal. Association with metformin reviewed. Add OTC B12 going forward. I advised Irvin as follows: Add OTC vitamin B12 - 1000 mcg daily Start Zepbound 2.5 mg sq per week If you've taken 2.5 mg for 4 weeks (or more) & feel that a dosage increase would be helpful, then reach out to me via [email or web address] Follow up in 3 months with [facility] (weight management) Follow up in 6 months with me Level of complexity: 4 Dylan Topete MD Endocrinology, Diabetes, & Metabolism June 02, 2024 2:35 PM documented in this encounter [facility] 06-02-2024 Note HNO ID: [id number] Author: TE JUAN OCCA Service: ? Author Type: Supervisor [employer] Type: Procedures Filed: 06/02/2024 14:58 Note Text: [facility] 06-02-2024 Procedure note Images from the original note were not included. [facility] 06-02-2024 Procedure note Images from the original note were not included. documented in this encounter [facility] 05-12-2024 Note HNO ID: [id number] Author: NEIL RUCKER APRN.ACCOUNTS PAYABLE ASSOCIATE Service: ? Author Type: Nurse Practitioner Type: Progress Notes Filed: 05/12/2024 19:48 Note Text: [facility] Subjective Irvin Kline is a 34 year old female. Patient presents with: Cough: Cough, chest hurts and asthma flare-up x 3 weeks Cough Associated symptoms include wheezing. Pertinent negatives include no chest pain, no chills, no rhinorrhea and no shortness of breath. : Patient is a 34 female that presents with chest congestion, cough for last three weeks, She does have a history of asthma, has been using her albuterol 2 puffs 4-6 times a day. She is on a long active zheng, and Singulair. No fever, fatigue, or coughing up sputum dry cough. She did leave work early, she not currently having chest pain. Review of Systems Constitutional: Negative for chills, diaphoresis, fatigue and fever. HENT: Negative for congestion, nosebleeds, postnasal drip, rhinorrhea, sinus pressure and sinus pain. Eyes: Negative for discharge. Respiratory: Positive for cough, chest tightness and wheezing. Negative for shortness of breath and stridor. Cardiovascular: Negative for chest pain and palpitations. Objective BP 118/80 Pulse 70 Temp 36.9 ?C (98.4 ?F) (Tympanic) Resp 18 Wt 114.2 kg (251 lb 12.3 oz) LMP 07/06/2023 (Exact Date) SpO2 96% BMI 43.22 kg/m? PAST MEDICAL HISTORY Diagnosis Date Anemia Asthma PAST SURGICAL HISTORY Procedure Laterality Date NONE ALLERGIES Rocephin [Ceftriaxone Sodium] MEDICATIONS traZODone (DESYREL) 100 mg tablet take 1 tablet 1 time a day (at bedtime) busPIRone (BUSPAR) 15 mg tablet Take 15 mg by mouth three times a day. citalopram (CELEXA) 40 mg tablet Take by mouth once daily. montelukast (SINGULAIR) 10 mg tablet TAKE 1 TABLET BY MOUTH EVERY DAY albuterol HFA (PROVENTIL HFA, VENTOLIN HFA) 90 mcg/actuation inhaler INHALE 2 PUFFS INSTRUCTED EVERY 4 HOURS NEEDED FOR WHEEZING/SHORTNESS OF BREATH. budesonide (PULMICORT) 0.5 mg/2 mL nebulizer solution USE 2 ML VIA NEBULIZER EVERY 12 HOURS. INHALE OVER 5-15 MINUTES mepolizumab (NUCALA) 100 mg/mL auto-injector INJECT 1 PEN UNDER THE SKIN EVERY 28 DAYS fluticasone-salmeterol (WIXELA INHUB) 250-50 mcg/dose inhaler INHALE 1 PUFF INSTRUCTED TWO TIMES A DAY. Blood-Glucose Sensor (DEXCOM G7 SENSOR) mallika Use as directed to monitor blood glucose 4-6 times per day. Reactive hypoglycemia [E16.1] Blood-Glucose Meter,Continuous (DEXCOM G7 CEMETERY VAULT INSTALLER) misc Use as directed to monitor blood glucose 4-6 times per day. Reactive hypoglycemia [E16.1] metFORMIN ER (GLUCOPHAGE XR) 500 mg 24 hr tablet Take 1 tablet by mouth three times a day with meals. lamoTRIgine (LAMICTAL) 100 mg tablet TAKE 1 TABLET BY MOUTH EVERYDAY AT BEDTIME blood sugar diagnostic (BLOOD GLUCOSE TEST) test strip Use as instructed to check blood glucose level one time daily fluticasone (FLONASE) 50 mcg/actuation nasal spray Use 1 [place] in each nostril once daily. Blood-Glucose Transmitter (DEXCOM G6 TRANSMITTER) mallika 1 Each once daily. Lancets lancets Use as instructed Blood-Glucose Meter 1 Each once daily. ferrous sulfate 325 mg (65 mg iron) tablet Take 1 tablet by mouth two times a day. albuterol (PROVENTIL) 2.5 mg /3 mL (0.083 %) nebulizer solution Use 3 mL via nebulizer every 4 hours as needed for wheezing/shortness of breath. Inhale by nebulizer over 5-15 minutes. albuterol HFA (PROAIR HFA) 90 mcg/actuation inhaler Inhale 2 Puffs as instructed every 6 hours as needed for wheezing/shortness of breath. mepolizumab (NUCALA) 100 mg injection Inject 100 mg subcutaneously every 4 weeks. Nebulizer and Compressor For Neb Use as directed FEXOFENADINE HCL (LAQUITA ALLERGY ORAL) Take by mouth once daily. citalopram hydrobromide (CELEXA) 10 mg tablet Take 1 tablet by mouth every other day. cariprazine (VRAYLAR) 3 mg capsule Take 1 capsule by mouth once daily. [DISCONTINUED] levalbuterol tartrate HFA 45 mcg/actuation inhaler Inhale 2 Puffs as instructed every 4 hours as needed for wheezing/shortness of breath. ergocalciferol 50,000 unit capsule (VITAMIN D2, DRISDOL) Take 1 capsule by mouth one time a week. FAMILY HISTORY Problem Relation Age of Onset Heart Attack Maternal Grandfather Social History Tobacco Use Smoking status: Never Smokeless tobacco: Never Vaping Use Vaping status: Never Used Substance Use Topics Alcohol use: Yes Comment: social Drug use: No Physical Exam Constitutional: Appearance: Normal appearance. HENT: Head: Normocephalic. Mouth/Throat: Mouth: Mucous membranes are moist. Cardiovascular: Rate and Rhythm: Normal rate and regular rhythm. Pulses: Normal pulses. Heart sounds: Normal heart sounds, S1 normal and S2 normal. Heart sounds not distant. No murmur heard. Pulmonary: Effort: Pulmonary effort is normal. Breath sounds: Normal breath sounds. Chest: Chest wall: Tenderness present. No (more content not included)... [facility] 05-12-2024 History of Presen t illness Narrative [facility] Subjective Irvin Kline is a 34 year old female. Patient presents with: Cough: Cough, chest hurts and asthma flare-up x 3 weeks Cough Associated symptoms include wheezing. Pertinent negatives include no chest pain, no chills, no rhinorrhea and no shortness of breath. : Patient is a 34 female that presents with chest congestion, cough for last three weeks, She does have a history of asthma, has been using her albuterol 2 puffs 4-6 times a day. She is on a long active zheng, and Singulair. No fever, fatigue, or coughing up sputum dry cough. She did leave work early, she not currently having chest pain. Review of Systems Constitutional: Negative for chills, diaphoresis, fatigue and fever. HENT: Negative for congestion, nosebleeds, postnasal drip, rhinorrhea, sinus pressure and sinus pain. Eyes: Negative for discharge. Respiratory: Positive for cough, chest tightness and wheezing. Negative for shortness of breath and stridor. Cardiovascular: Negative for chest pain and palpitations. Objective BP 118/80 Pulse 70 Temp 36.9 C (98.4 F) (Tympanic) Resp 18 Wt 114.2 kg (251 lb 12.3 oz) LMP 07/06/2023 (Exact Date) SpO2 96% BMI 43.22 kg/m PAST MEDICAL HISTORY Diagnosis Date Anemia Asthma PAST SURGICAL HISTORY Procedure Laterality Date NONE ALLERGIES Rocephin [Ceftriaxone Sodium] MEDICATIONS traZODone (DESYREL) 100 mg tablet take 1 tablet 1 time a day (at bedtime) busPIRone (BUSPAR) 15 mg tablet Take 15 mg by mouth three times a day. citalopram (CELEXA) 40 mg tablet Take by mouth once daily. montelukast (SINGULAIR) 10 mg tablet TAKE 1 TABLET BY MOUTH EVERY DAY albuterol HFA (PROVENTIL HFA, VENTOLIN HFA) 90 mcg/actuation inhaler INHALE 2 PUFFS INSTRUCTED EVERY 4 HOURS NEEDED FOR WHEEZING/SHORTNESS OF BREATH. budesonide (PULMICORT) 0.5 mg/2 mL nebulizer solution USE 2 ML VIA NEBULIZER EVERY 12 HOURS. INHALE OVER 5-15 MINUTES mepolizumab (NUCALA) 100 mg/mL auto-injector INJECT 1 PEN UNDER THE SKIN EVERY 28 DAYS fluticasone-salmeterol (WIXELA INHUB) 250-50 mcg/dose inhaler INHALE 1 PUFF INSTRUCTED TWO TIMES A DAY. Blood-Glucose Sensor (Buzztala G7 SENSOR) mallika Use as directed to monitor blood glucose 4-6 times per day. Reactive hypoglycemia [E16.1] Blood-Glucose Meter,Continuous (DEXCOM G7 CEMETERY VAULT INSTALLER) misc Use as directed to monitor blood glucose 4-6 times per day. Reactive hypoglycemia [E16.1] metFORMIN ER (GLUCOPHAGE XR) 500 mg 24 hr tablet Take 1 tablet by mouth three times a day with meals. lamoTRIgine (LAMICTAL) 100 mg tablet TAKE 1 TABLET BY MOUTH EVERYDAY AT BEDTIME blood sugar diagnostic (BLOOD GLUCOSE TEST) test strip Use as instructed to check blood glucose level one time daily fluticasone (FLONASE) 50 mcg/actuation nasal spray Use 1 [place] in each nostril once daily. Blood-Glucose Transmitter (DEXCOM G6 TRANSMITTER) mallika 1 Each once daily. Lancets lancets Use as instructed Blood-Glucose Meter 1 Each once daily. ferrous sulfate 325 mg (65 mg iron) tablet Take 1 tablet by mouth two times a day. albuterol (PROVENTIL) 2.5 mg /3 mL (0.083 %) nebulizer solution Use 3 mL via nebulizer every 4 hours as needed for wheezing/shortness of breath. Inhale by nebulizer over 5-15 minutes. albuterol HFA (PROAIR HFA) 90 mcg/actuation inhaler Inhale 2 Puffs as instructed every 6 hours as needed for wheezing/shortness of breath. mepolizumab (NUCALA) 100 mg injection Inject 100 mg subcutaneously every 4 weeks. Nebulizer and Compressor For Neb Use as directed FEXOFENADINE HCL (LAQUITA ALLERGY ORAL) Take by mouth once daily. citalopram hydrobromide (CELEXA) 10 mg tablet Take 1 tablet by mouth every other day. cariprazine (VRAYLAR) 3 mg capsule Take 1 capsule by mouth once daily. [DISCONTINUED] levalbuterol tartrate HFA 45 mcg/actuation inhaler Inhale 2 Puffs as instructed every 4 hours as needed for wheezing/shortness of breath. ergocalciferol 50,000 unit capsule (VITAMIN D2, DRISDOL) Take 1 capsule by mouth one time a week. FAMILY HISTORY Problem Relation Age of Onset Heart Attack Maternal Grandfather Social History Tobacco Use Smoking status: Never Smokeless tobacco: Never Vaping Use Vaping status: Never Used Substance Use Topics Alcohol use: Yes Comment: social Drug use: No Physical Exam Constitutional: Appearance: Normal appearance. HENT: Head: Normocephalic. Mouth/Throat: Mouth: Mucous membranes are moist. Cardiovascular: Rate and Rhythm: Normal rate and regular rhythm. Pulses: Normal pulses. Heart sounds: Normal heart sounds, S1 normal and S2 normal. Heart sounds not distant. No murmur heard. Pulmonary: Effort: Pulmonary effort is normal. Breath sounds: Normal breath sounds. Chest: Chest wall: Tenderness present. No swelling, crepitus or edema. Lymphadenopathy: Cervical: No cervical adenopathy. Neurological: General: No focal deficit present. Mental Status: She is alert and oriented to person, place, and time. Mental status is at baseline. {ASSESSMENT/PLAN: 1. Asthma, moderate persistent, poorly-controlled - ICD9: 493.90, ICD10: J45.40 (primary diagnosis) - Mild intermittent asthma worse - Cough variant asthma - Avoidance of triggers recommended - Asthma Action Plan reviewed - Asthma education: Environmental control: use of allergy medications - Follow up in 1 days, sooner should any other issues arise. 2. Costochondritis - ICD9: 733.6, ICD10: M94.0 Take naproxen twice a day with food. Neil Rucker APRN.ACCOUNTS PAYABLE ASSOCIATE MDM Patient is well appearing in no acute distress, no concerns for acute cardiac process. She is asthmatic with dry cough for last three weeks, she is poorly controlled taking albuterol 4-6 times a day. Discussed prednisone, patient states she gets hyperglycemic and declines. She is having reproducible musculoskeletal pain with costochondritis from consistent coughing. Discussed NSAIDs and follow up with PCP and aircraft general repair mechanic. IF symptoms of chest pain, shortness of breath, worsen seeking emergency care. Patient discharged home, well appearing in not acute distress. Scar in there okay blood pressure on the nerve so we wanted to use a [place] open [place] at [facility] and he did some injection that took care of okay because he did an x-ray and he did see a white spot to get scar tissue in there from a male and that crazy but I completed his left so if she Procedures documented in this encounter [facility] 05-05-2024 Telephone encounter Note Images from the original note were not included. Blood-Glucose Sensor (DEXCOM G7 SENSOR) has been approved Notified patient through deng Johnson Prior Hydraulic Press In Operator Endocrinology & Metabolism [place] [facility] 05-05-2024 Miscellaneous Notes Images from the original note were not included. Blood-Glucose Sensor (DEXCOM G7 SENSOR) has been approved Notified patient through deng Johnson Prior Hydraulic Press In Operator Endocrinology & Metabolism [place] documented in this encounter [facility] 03-09-2024 Note HNO ID: [id number] Author: ROBSON ZUNIGA MD Service: ? Author Type: Physician Type: Progress Notes Filed: 03/10/2024 07:49 Note Text: ESTABLISHED PATIENT FOLLOW-UP SERVICE DATE: 03/09/2024 PRIMARY CARE PHYSICIAN: Donald Snowden DO SUBJECTIVE HPI:Irvin Kline is a 33 year old female here for follow appointment. Routine visit and past visit reviewed. See previous notes. Reviewed last note virtuals Not seen much office DMT2 now Obese Astham much better Less steroids Less alb States neb bud and moderate advair compliance LTA NUCALA very helpful SOCIAL HISTORY: Social History Tobacco Use Smoking status: Never Smokeless tobacco: Never Vaping Use Vaping status: Never Used Substance Use Topics Alcohol use: Yes Comment: social Drug use: No MEDICATIONS: Prior to Admission Medications (Not in a hospital admission) albuterol HFA (PROVENTIL HFA, VENTOLIN HFA) 90 mcg/actuation inhaler INHALE 2 PUFFS INSTRUCTED EVERY 4 HOURS NEEDED FOR WHEEZING/SHORTNESS OF BREATH. budesonide (PULMICORT) 0.5 mg/2 mL nebulizer solution USE 2 ML VIA NEBULIZER EVERY 12 HOURS. INHALE OVER 5-15 MINUTES mepolizumab (NUCALA) 100 mg/mL auto-injector INJECT 1 PEN UNDER THE SKIN EVERY 28 DAYS montelukast (SINGULAIR) 10 mg tablet TAKE 1 TABLET BY MOUTH EVERY DAY fluticasone-salmeterol (WIXELA INHUB) 250-50 mcg/dose inhaler INHALE 1 PUFF INSTRUCTED TWO TIMES A DAY. Blood-Glucose Sensor (DEXCOM G7 SENSOR) mallika Use as directed to monitor blood glucose 4-6 times per day. Reactive hypoglycemia [E16.1] Blood-Glucose Meter,Continuous (DEXCOM G7 CEMETERY VAULT INSTALLER) misc Use as directed to monitor blood glucose 4-6 times per day. Reactive hypoglycemia [E16.1] metFORMIN ER (GLUCOPHAGE XR) 500 mg 24 hr tablet Take 1 tablet by mouth three times a day with meals. lamoTRIgine (LAMICTAL) 100 mg tablet TAKE 1 TABLET BY MOUTH EVERYDAY AT BEDTIME traZODone (DESYREL) 100 mg tablet Take 1 tablet by mouth daily at bedtime. blood sugar diagnostic (BLOOD GLUCOSE TEST) test strip Use as instructed to check blood glucose level one time daily fluticasone (FLONASE) 50 mcg/actuation nasal spray Use 1 Almont in each nostril once daily. Blood-Glucose Transmitter (DEXCOM G6 TRANSMITTER) mallika 1 Each once daily. Lancets lancets Use as instructed Blood-Glucose Meter 1 Each once daily. ergocalciferol 50,000 unit capsule (VITAMIN D2, DRISDOL) Take 1 capsule by mouth one time a week. ferrous sulfate 325 mg (65 mg iron) tablet Take 1 tablet by mouth two times a day. albuterol (PROVENTIL) 2.5 mg /3 mL (0.083 %) nebulizer solution Use 3 mL via nebulizer every 4 hours as needed for wheezing/shortness of breath. Inhale by nebulizer over 5-15 minutes. albuterol HFA (PROAIR HFA) 90 mcg/actuation inhaler Inhale 2 Puffs as instructed every 6 hours as needed for wheezing/shortness of breath. mepolizumab (NUCALA) 100 mg injection Inject 100 mg subcutaneously every 4 weeks. Nebulizer and Compressor For Neb Use as directed FEXOFENADINE HCL (LAQUITA ALLERGY ORAL) Take by mouth once daily. citalopram hydrobromide (CELEXA) 10 mg tablet Take 1 tablet by mouth every other day. cariprazine (VRAYLAR) 3 mg capsule Take 1 capsule by mouth once daily. [DISCONTINUED] levalbuterol tartrate HFA 45 mcg/actuation inhaler Inhale 2 Puffs as instructed every 4 hours as needed for wheezing/shortness of breath. CURRENT ALLERGIES: ALLERGIES Allergen Reactions Rocephin [Ceftriaxo* Anaphylaxis per pt mother was 3yo s. OBJECTIVE PHYSICAL EXAMINATION: VITAL SIGNS: BP 132/81 Pulse 86 Temp 98.2 Resp 16 Ht 5' 4 (1.63m) Wt 252 lb (114.3kg) SpO2 99% LMP 07/06/2023 BMI 43.23 kg/(m2). General appearance: well-nourished. Cordial. nontoxic. Obese. No cough Skin: Normal turgor. Not pallorous. Not diaphoretic. No jaundice. Eyes: Midline. No jaundice. anicteric ENT: No palpable lymphadenopathy. Hearing intact. No gross thyromegaly. Heme/Lymph: No significant neck adenopathy. Lungs: Clear to auscultation. Decent inspiratory capacity. No overt wheeze. No significant hyperinflation. No fibrotic rales. No pleural rub. No obvious effusion. Heart: Regular rate and rhythm. Normal heart tones. BP as documented. No significant murmur. Normal P2 . Good hand perfusion. ABD: Not visually distended. Musculoskeletal: normal gait grossly, no acute synovitis. Ext: No deformities, no edema, or skin discoloration. adequate capillary refill Neuro: Nonfocal. Alert. Speech intact. No gross cerebellar dysfunction. DATA: Vaccines as noted EMR Diagnostic tests reviewed and independently analyzed for today's visit: CBC with diff: Hemoglobin (g/dL) Date Value 04/11/2023 13.2 08/08/2016 11.4 Hematocrit (%) Date Value 04/11/2023 42.9 08/08/2016 36.0 WBC (k/uL) Date Value 04/11/2023 9.41 08/08/2016 17.09 Glucose (mg/dL) Date Value 04/12/2023 74 Potassium (mmol/L) Date Value 04/12/2023 4.3 Sodium (mmol/ (more content not included)... [facility] 03-09-2024 History of Presen t illness Narrative ESTABLISHED PATIENT FOLLOW-UP SERVICE DATE: 03/09/2024 PRIMARY CARE PHYSICIAN: Donald Snowden DO SUBJECTIVE HPI:Irvin Kline is a 33 year old female here for follow appointment. Routine visit and past visit reviewed. See previous notes. Reviewed last note virtuals Not seen much office DMT2 now Obese Astham much better Less steroids Less alb States neb bud and moderate advair compliance LTA NUCALA very helpful SOCIAL HISTORY: Social History Tobacco Use Smoking status: Never Smokeless tobacco: Never Vaping Use Vaping status: Never Used Substance Use Topics Alcohol use: Yes Comment: social Drug use: No MEDICATIONS: Prior to Admission Medications (Not in a hospital admission) albuterol HFA (PROVENTIL HFA, VENTOLIN HFA) 90 mcg/actuation inhaler INHALE 2 PUFFS INSTRUCTED EVERY 4 HOURS NEEDED FOR WHEEZING/SHORTNESS OF BREATH. budesonide (PULMICORT) 0.5 mg/2 mL nebulizer solution USE 2 ML VIA NEBULIZER EVERY 12 HOURS. INHALE OVER 5-15 MINUTES mepolizumab (NUCALA) 100 mg/mL auto-injector INJECT 1 PEN UNDER THE SKIN EVERY 28 DAYS montelukast (SINGULAIR) 10 mg tablet TAKE 1 TABLET BY MOUTH EVERY DAY fluticasone-salmeterol (WIXELA INHUB) 250-50 mcg/dose inhaler INHALE 1 PUFF INSTRUCTED TWO TIMES A DAY. Blood-Glucose Sensor (DEXCOM G7 SENSOR) mallika Use as directed to monitor blood glucose 4-6 times per day. Reactive hypoglycemia [E16.1] Blood-Glucose Meter,Continuous (DEXCOM G7 CEMETERY VAULT INSTALLER) misc Use as directed to monitor blood glucose 4-6 times per day. Reactive hypoglycemia [E16.1] metFORMIN ER (GLUCOPHAGE XR) 500 mg 24 hr tablet Take 1 tablet by mouth three times a day with meals. lamoTRIgine (LAMICTAL) 100 mg tablet TAKE 1 TABLET BY MOUTH EVERYDAY AT BEDTIME traZODone (DESYREL) 100 mg tablet Take 1 tablet by mouth daily at bedtime. blood sugar diagnostic (BLOOD GLUCOSE TEST) test strip Use as instructed to check blood glucose level one time daily fluticasone (FLONASE) 50 mcg/actuation nasal spray Use 1 Almont in each nostril once daily. Blood-Glucose Transmitter (DEXCOM G6 TRANSMITTER) mallika 1 Each once daily. Lancets lancets Use as instructed Blood-Glucose Meter 1 Each once daily. ergocalciferol 50,000 unit capsule (VITAMIN D2, DRISDOL) Take 1 capsule by mouth one time a week. ferrous sulfate 325 mg (65 mg iron) tablet Take 1 tablet by mouth two times a day. albuterol (PROVENTIL) 2.5 mg /3 mL (0.083 %) nebulizer solution Use 3 mL via nebulizer every 4 hours as needed for wheezing/shortness of breath. Inhale by nebulizer over 5-15 minutes. albuterol HFA (PROAIR HFA) 90 mcg/actuation inhaler Inhale 2 Puffs as instructed every 6 hours as needed for wheezing/shortness of breath. mepolizumab (NUCALA) 100 mg injection Inject 100 mg subcutaneously every 4 weeks. Nebulizer and Compressor For Neb Use as directed FEXOFENADINE HCL (LAQUITA ALLERGY ORAL) Take by mouth once daily. citalopram hydrobromide (CELEXA) 10 mg tablet Take 1 tablet by mouth every other day. cariprazine (VRAYLAR) 3 mg capsule Take 1 capsule by mouth once daily. [DISCONTINUED] levalbuterol tartrate HFA 45 mcg/actuation inhaler Inhale 2 Puffs as instructed every 4 hours as needed for wheezing/shortness of breath. CURRENT ALLERGIES: ALLERGIES Allergen Reactions Rocephin [Ceftriaxo* Anaphylaxis per pt mother was 3yo s. OBJECTIVE PHYSICAL EXAMINATION: VITAL SIGNS: BP 132/81 Pulse 86 Temp 98.2 Resp 16 Ht 5' 4 (1.63m) Wt 252 lb (114.3kg) SpO2 99% LMP 07/06/2023 BMI 43.23 kg/(m^2). General appearance: well-nourished. Cordial. nontoxic. Obese. No cough Skin: Normal turgor. Not pallorous. Not diaphoretic. No jaundice. Eyes: Midline. No jaundice. anicteric ENT: No palpable lymphadenopathy. Hearing intact. No gross thyromegaly. Heme/Lymph: No significant neck adenopathy. Lungs: Clear to auscultation. Decent inspiratory capacity. No overt wheeze. No significant hyperinflation. No fibrotic rales. No pleural rub. No obvious effusion. Heart: Regular rate and rhythm. Normal heart tones. BP as documented. No significant murmur. Normal P2 . Good hand perfusion. ABD: Not visually distended. Musculoskeletal: normal gait grossly, no acute synovitis. Ext: No deformities, no edema, or skin discoloration. adequate capillary refill Neuro: Nonfocal. Alert. Speech intact. No gross cerebellar dysfunction. DATA: Vaccines as noted EMR Diagnostic tests reviewed and independently analyzed for today's visit: CBC with diff: Hemoglobin (g/dL) Date Value 04/11/2023 13.2 08/08/2016 11.4 Hematocrit (%) Date Value 04/11/2023 42.9 08/08/2016 36.0 WBC (k/uL) Date Value 04/11/2023 9.41 08/08/2016 17.09 Glucose (mg/dL) Date Value 04/12/2023 74 Potassium (mmol/L) Date Value 04/12/2023 4.3 Sodium (mmol/L) Date Value 04/12/2023 142 Chloride (mmol/L) Date Value 04/12/2023 106 CO2 (mmol/L) Date Value 04/12/2023 22 Creatinine (mg/dL) Date Value 04/12/2023 0.57 BUN (mg/dL) Date Value 04/12/2023 8 Anion Gap (mmol/L) Date Value 04/12/2023 14 Calcium, Total (mg/dL) Date Value 04/12/2023 9.7 Labs: Micro: Last CT Chest - Impression Only No resulted procedures found. Last Echocardiogram No resulted procedures found. Chest xray: Heart echo: PFT: Last Spirometry SPIROMETRY - BASELINE AND POST DILATOR Collected: 10/28/2023 1:23 PM (Final result) Narrative: [facility] [address], [address], [place] [address] Test Date: 2023-10-28 Pat Name: IRVIN KLINE Department: Room: Gender: Female Sagger Filler: : 1990 Requested By: Order Number: [id number] Reading MD: Clifton Beckford DO Interpretive Statements PRE & POST: Current ATS/ERS acceptability and repeatability standards for spirometry met. Start of test and EOFE criteria met. Medications and Allergies were reviewed for possible drug interactions per policy. No contraindications or sensitivities were noted. Meds taken: Pulmicort 14.5/hours before testing. 4 puffs Albuterol (360 mcg) delivered by MDI via holding chamber. HR pre =74/min, HR post =79/min.//NS IMPRESSION: Spirometry is normal. Positive bronchodilator response. Electronically Signed On 10-30-2023 11:48:43 EDT by Clifton Beckford, DO ID: [id number] Name: IRVIN KLINE Race: White Ht: 63.07 in Wt: 256.40 lbs Age: 33 Gender: Female : 1990 Dx: Severe persistent asthma, uncomplicated Smoking Hx: Non-smoker Doctor: NELLA PAYTON Test Date: 10/28/2023 Site: [facility] Tech: MERA PÉREZ PRE-BRONCH POST-BRONCH Pre LLN Pred ULN %Pred Post %Pred %Chg SPIROMETRY FVC (L) 3.31 2.61 3.39 4.19 97 3.60 106 8 FEV1 (L) 2.47 2.20 2.87 3.51 86 2.76 96 10 FEV1/FVC 0.75 0.74 0.85 0.93 87 0.77 90 2 PEF L/s (L/sec) 6.30 5.21 6.87 8.53 91 6.66 96 5 FEF50 (L/sec) 2.78 2.29 3.90 5.51 71 3.44 88 23 FIF50 (L/sec) 3.19 4.32 35 FEF50/FIF50 0.87 90-100 0.80 -8 FIVC (L) 3.27 3.48 6 SSU67-17 (L/sec) 1.94 2.14 3.37 4.83 57 2.91 86 49 Time (sec) 8.95 7.41 -17 FET PEF (sec) 0.07 0.07 14 CHIKIS (L) 0.07 0.08 21 Vol Extrap % (%) 2 2 12 Comments: PRE & POST: Current ATS/ERS acceptability and repeatability standards for spirometry met. Start of test and EOFE criteria met. Medications and Allergies were reviewed for possible drug interactions per policy. No contraindications or sensitivities were noted. Meds taken: Pulmicort 14.5/hours before testing. 4 puffs Albuterol (360 mcg) delivered by MDI via holding chamber. HR pre =74/min, HR post =79/min.//NS SPIROMETRY - BASELINE AND POST DILATOR ([id number]) - ordered on 10/28/23 No textual results for order. Personally reviewed and analyzed chest imaging and available labs ASSESSMENT/PLAN: 1. Asthma, late onset, severe persistent, uncomplicated - ICD9: 493.10, ICD10: J45.50 (primary diagnosis) Abs eosins 1500 one check Improved LABA/ICS NEB ICS TOO LTA ANTI IL5 mepolizumab helped 2. 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 Class 3 severe obesity with serious comorbidity and body mass index (BMI) of 40.0 to 44.9 in adult, unspecified obesity type (HCC) - ICD9: 278.01, V85.41, ICD10: E66.813, E66.01, Z68.41 Can contribute to asthma morbidity Robson Zuniga MD PLAN: Continue NUCALA but now large $$$ copay; check [place] formulary and pt assistance 2. Neb bud steroid plus LABA/ICS , DOING BETTER 3. 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 Wt loss, metformin 6. Much less alb, off pred most of yr!! Better Nucala really helped Last PFT and BRAYAN 11/10 better FEV1 NORMALIZED SMALL AIRWAYS IMPROVED MARKED BD RESPONSE Drug management reviewed; continue meds as discussed Patient discharge instructions given See AVS Patient's questions and concerns were addressed prior to discharge today. Objective testing was reviewed with this visit. Followup discussed. Communication to associated physician to be sent via correspondence. SIGNATURE: Robson Zuniga MD PATIENT NAME: Irvin Kline DATE: March 09, 2024 TIME: 2:25 PM PAGER/CONTACT #: [phone] MYC ASTHMA CONTROL TEST Question 03/02/2024 2:03 PM EST - Filed by Patient 11/12/2023 4:27 PM EST - Filed by Patient 11/03/2023 12:29 PM EST - Filed by Patient Keep from getting things done 5 None of the time 2 Most of the time 5 None of the time Shortness of breath 4 Once or twice a week 1 More than once a day 5 Not at all Symptoms wake up at night or early in morning 5 Not at all 3 Once a week 5 Not at all How often have you used inhaler/nebulizer 3 2 or 3 times per week 4 Once a week or less 5 Not at all Rate your asthma control over past 4 weeks 4 Well controlled 4 Well controlled 4 Well controlled Asthma Control Test Score (range: 0 - 25) 21 14 documented in this encounter [facility] 03-09-2024 Instructions Robson Zuniga MD - 03/09/2024 2:23 PM EST NUCALA Same budesonide and advair Montelukast PFT much better documented in this encounter [facility] 03-09-2024 Note HNO ID: [id number] Author: CUCA RIOS MA Service: ? Author Type: Supervisor [employer] Type: Progress Notes Filed: 03/10/2024 07:49 Note Text: MYC ASTHMA CONTROL TEST Question 03/02/2024 2:03 PM EST - Filed by Patient 11/12/2023 4:27 PM EST - Filed by Patient 11/03/2023 12:29 PM EST - Filed by Patient Keep from getting things done 5 None of the time 2 Most of the time 5 None of the time Shortness of breath 4 Once or twice a week 1 More than once a day 5 Not at all Symptoms wake up at night or early in morning 5 Not at all 3 Once a week 5 Not at all How often have you used inhaler/nebulizer 3 2 or 3 times per week 4 Once a week or less 5 Not at all Rate your asthma control over past 4 weeks 4 Well controlled 4 Well controlled 4 Well controlled Asthma Control Test Score (range: 0 - 25) [address] [facility] 02-23-2024 Telephone encounter Note Spoke with patient regarding any recent insurance changes. Pt was unaware of changes and stated she would speak with her regarding that. [address] to Nucala number provided to update if needed and request for pt to update office with any recent changes to insurance. Pt verbalized understanding of all Robert Olivarez RN February 23, 2024 2:09 PM [facility] 02-23-2024 Miscellaneous Notes Spoke with patient regarding any recent insurance changes. Pt was unaware of changes and stated she would speak with her regarding that. [address] to [facility] number provided to update if needed and request for pt to update office with any recent changes to insurance. Pt verbalized understanding of all Robert Olivarez RN February 23, 2024 2:09 PM documented in this encounter [facility] 02-05-2024 Telephone encounter Note Appointment scheduled for 03/09/[address] zuniga [facility] 02-05-2024 Miscellaneous Notes Appointment scheduled for 03/09/[address] zuniga documented in this encounter [facility] 01-12-2024 Telephone encounter Note Prescription Refill Information The patient has been identified by name and date of : Yes Caregiver verified no other encounters exist for this prescription request: Yes Caregiver confirmed with patient/requestor that no other refills are due, in the near future, with this provider at this time: Yes The last office visit in the department: 05/21/23 Does the patient have a future office visit with this provider/department: No Requested Prescriptions Pending Prescriptions Disp Refills montelukast (SINGULAIR) 10 mg tablet [Pharmacy Med Name: MONTELUKAST SOD 10 MG TABLET] 90 tablet 0 Sig: TAKE 1 TABLET BY MOUTH EVERY DAY Jessica Michel LPN January 12, 2024 5:49 PM [facility] 01-12-2024 Miscellaneous Notes Prescription Refill Information The patient has been identified by name and date of : Yes Caregiver verified no other encounters exist for this prescription request: Yes Caregiver confirmed with patient/requestor that no other refills are due, in the near future, with this provider at this time: Yes The last office visit in the department: 05/21/23 Does the patient have a future office visit with this provider/department: No Requested Prescriptions Pending Prescriptions Disp Refills montelukast (SINGULAIR) 10 mg tablet [Pharmacy Med Name: MONTELUKAST SOD 10 MG TABLET] 90 tablet 0 Sig: TAKE 1 TABLET BY MOUTH EVERY DAY Jessica Michel LPN January 12, 2024 5:49 PM documented in this encounter [facility] 12-19-2023 Telephone encounter Note 11/03/23 last appointment [facility] 12-19-2023 Miscellaneous Notes 11/03/23 last appointment documented in this encounter [facility] 12-03-2023 Note HNO ID: [id number] Author: CHASE BAZAN APRN.[employer]OCIATE Service: ? Author Type: Nurse Practitioner Type: Progress Notes Filed: 12/03/2023 15:31 Note Text: [facility] PROGRESS NOTE PATIENT: Irvin Kline MRD: [id number] DATE: December 03, 2023 IDENTIFYING INFORMATION: Irvin is a 33 year old female with a history of bipolar disorder and anxiety. This visit is being conducted using HIPPA compliant telecommunication system permitting interactive audio and video Proper identity has been estbablished and consent to treat is confirmed. My chart format utilized I have communicated my name and active licensure. The patient's identity and physical location were verified at the time of this visit. Either the patient or their legal agency service representative has been informed of the risks and benefits of Medicine -- and alternatives to Mental health disorders-- treatment through a remote evaluation and consents to proceed with the evaluation remotely. CHIEF COMPLAINT: Patient presents with: Bipolar Disorder Anxiety INTERIM HISTORY: The patient was last seen 10/21/23 at which time no medication changes were made. She then called on 2 occasions to report increased depression and crying. She continues to vacillate between complaints of depression and impulsive behaviors. She was then restarted with celexa 10mg every day. Continues to have crying fits, but not as frequent. She has more restraint with spending. She has improved energy and is getting chores accomplished. Reviewed symptoms of charlene/hypomania, none reported at this time. She reports feeling less emotional, less crying, and improved motivation. She no longer feels restless. Denies impulsivity, notably when restarting antidepressant. She continues to work, care for her family and self. Denies SI/HI/ and A/V H. No concern of paranoia, delusions, or psychosis. The patient does not appear to be responding to internal or external stimuli. She denies panic, some anxiety lingers. She had been attending [facility], but a notice was received showing she did not complete the program but rather left voluntarily. No longer will have counseling, [facility] Unsure if they are licensed or not. She continues to get frustrated with her kids, but is not as snappy with her kids. She is getting better quality of sleep. She does wake frequently on nights before she has to work. 7-8 hours of sleep. She is completing self care and completing self care. She is more positive overall. She is concerned about her blood sugars increased since beginning vraylar. (A1C 5.2 on 11/06/23) Discussed the connection of physical and mental health. She is focused on these concerns. Discussed risk/benefit to mental health if vraylar were to be decreased. She verbalized understanding. She is distracted by son, who frequently pops into sight during the appointment. She is pleasant and answers questions appropriately, but with little description. ROS Substance Use History: No change-confirmed 09/23/23 appt. Alcohol: Social drinker Tobacco: Used to vape Marijuana: Never Illegal drug Use: Never Medication Review: Lamictal 100mg qhs Vraylar to 4.5 mg daily Buspar 10mg tid Trazodone 100mg nightly Celexa 10mg daily PDMP: 270-Adderall XR 30mg daily-last fill 06/09/23, Adderall XR 15mg #30-05/21/23 Phentermine #30-11/26/22 Previous Medication Trials: Adderall xr started 06/10, Abilify 15mg 02/07-ineffective, lamictal (09/08-06/10)Ineffective, Seroquel 100mg (05/09), Zoloft-becam ineffective overtime, Effexor-bugs crawling on me. Latuda-more manic, Hospitalizations: Never--not admitted. 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 Longest job -[employer] x 5 years while in . 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 Therapy: [facility] ---no longer participating as of 11/10 RATING SCALES: PHQ-9 PHQ-9 Score: 6 (12/02/2023 8:06 PM) (0-4) minimal depression, (5-9) mild depression, (10-14) moderate depression, (15-19) moderately severe depression, (20-27) severe depression SHIRLENE-7 SHIRLENE-7 Total Score: 8 (12/02/2023 8:06 PM) (0-4) minimal anxiety, (5-9) mild anxiety, (10-14) moderate anxiety, (15-21) severe anxiety Depression Screenin10/14/2023 12/02/2023 PHQ-9 All Questions Little interest or pleasure in doing things 1 2 Feeling down, depressed, or hopeless 1 2 Trouble falling or staying asleep, or sleeping too much 1 2 Feeling tired or having little energy 2 0 Poor appetite or overeating 0 0 Feeling bad about yourself - or that you are a failure or have let yourself or your family down 0 0 Trouble concentrating on things, such as reading the newspaper or watching television 0 0 Moving or speaking so slowly that other peopl (more content not included)... [facility] 12-03-2023 History of Presen t illness Narrative Images from the original note were not included. [facility] PROGRESS NOTE PATIENT: Irvin Kline MRD: [id number] DATE: December 03, 2023 IDENTIFYING INFORMATION: Irvin is a 33 year old female with a history of bipolar disorder and anxiety. This visit is being conducted using HIPPA compliant telecommunication system permitting interactive audio and video Proper identity has been estbablished and consent to treat is confirmed. My chart format utilized I have communicated my name and active licensure. The patient's identity and physical location were verified at the time of this visit. Either the patient or their legal agency service representative has been informed of the risks and benefits of Medicine -- and alternatives to Mental health disorders-- treatment through a remote evaluation and consents to proceed with the evaluation remotely. CHIEF COMPLAINT: Patient presents with: Bipolar Disorder Anxiety INTERIM HISTORY: The patient was last seen 10/21/23 at which time no medication changes were made. She then called on 2 occasions to report increased depression and crying. She continues to vacillate between complaints of depression and impulsive behaviors. She was then restarted with celexa 10mg every day. Continues to have crying fits, but not as frequent. She has more restraint with spending. She has improved energy and is getting chores accomplished. Reviewed symptoms of charlene/hypomania, none reported at this time. She reports feeling less emotional, less crying, and improved motivation. She no longer feels restless. Denies impulsivity, notably when restarting antidepressant. She continues to work, care for her family and self. Denies SI/HI/ and A/V H. No concern of paranoia, delusions, or psychosis. The patient does not appear to be responding to internal or external stimuli. She denies panic, some anxiety lingers. She had been attending [facility], but a notice was received showing she did not complete the program but rather left voluntarily. No longer will have counseling, [facility] Unsure if they are licensed or not. She continues to get frustrated with her kids, but is not as snappy with her kids. She is getting better quality of sleep. She does wake frequently on nights before she has to work. 7-8 hours of sleep. She is completing self care and completing self care. She is more positive overall. She is concerned about her blood sugars increased since beginning vraylar. (A1C 5.2 on 11/06/23) Discussed the connection of physical and mental health. She is focused on these concerns. Discussed risk/benefit to mental health if vraylar were to be decreased. She verbalized understanding. She is distracted by son, who frequently pops into sight during the appointment. She is pleasant and answers questions appropriately, but with little description. ROS Substance Use History: No change-confirmed 09/23/23 appt. Alcohol: Social drinker Tobacco: Used to vape Marijuana: Never Illegal drug Use: Never Medication Review: Lamictal 100mg qhs Vraylar to 4.5 mg daily Buspar 10mg tid Trazodone 100mg nightly Celexa 10mg daily PDMP: 270-Adderall XR 30mg daily-last fill 06/09/23, Adderall XR 15mg #30-05/21/23 Phentermine #30-11/26/22 Previous Medication Trials: Adderall xr started 06/10, Abilify 15mg 02/07-ineffective, lamictal (09/08-06/10)Ineffective, Seroquel 100mg (05/09), Zoloft-becam ineffective overtime, Effexor-bugs crawling on me. Latuda-more manic, Hospitalizations: Never--not admitted. 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 Therapy: [facility] ---no longer participating as of 11/10 RATING SCALES: PHQ-9 PHQ-9 Score: 6 (12/02/2023 8:06 PM) (0-4) minimal depression, (5-9) mild depression, (10-14) moderate depression, (15-19) moderately severe depression, (20-27) severe depression SHIRLENE-7 SHIRLENE-7 Total Score: 8 (12/02/2023 8:06 PM) (0-4) minimal anxiety, (5-9) mild anxiety, (10-14) moderate anxiety, (15-21) severe anxiety Depression Screenin10/14/2023 12/02/2023 PHQ-9 All Questions Little interest or pleasure in doing things 1 2 Feeling down, depressed, or hopeless 1 2 Trouble falling or staying asleep, or sleeping too much 1 2 Feeling tired or having little energy 2 0 Poor appetite or overeating 0 0 Feeling bad about yourself - or that you are a failure or have let yourself or your family down 0 0 Trouble concentrating on things, such as reading the newspaper or watching television 0 0 Moving or speaking so slowly that other people could have noticed. Or the opposite - being so fidgety or restless that you have been moving around a lot more than usual 0 0 Thoughts that you would be better off , or of hurting yourself in some way 0 0 PHQ-9 Score 5 6 (0-4) Minimal Depression (5-9) Mild Depression (10-14) Moderate Depression (15-19) Moderately severe Depression (20-27) Severe Depression SHIRLENE-7 Screenin10/14/2023 12/02/2023 SHIRLENE-7 All Questions Feeling nervous, anxious, or on edge Several days More than half the days Not being able to stop or control worrying Several days More than half the days Worrying too much about different things Several days More than half the days Trouble relaxing Several days Not at all Being so restless that it is hard to sit still Not at all Not at all Becoming easily annoyed or irritable Several days More than half the days Feeling afraid, as if something awful might happen Not at all Not at all SHIRLENE-7 Score 5 8 (0-5) mild anxiety (6-10) moderate anxiety (11-15) Moderately severe anxiety (16-21) Severe anxiety [place] SUICIDE SEVERITY RATING SCALE 1.) Wish to be : Have you wished you were or wished you could go to sleep and not wake up? NO 2.) Suicidal Thoughts: Have you actually had any thoughts of killing yourself? NO 6.) Suicide Behavior Question: Have you ever done anything, started to do anything, or prepared to do anything to end your life?NO RISK LEVEL RISK/PROTECTIVE FACTOR SUICIDALITY POSSIBLE INTERVENTIONS High Psychiatric disorders with severe symptoms, or acute precipitating event; protective factors not relevant Potentially lethal suicide attempt or persistent ideation with strong intent or suicide rehearsal Admission generally indicated unless a significant change reduces risk. Suicide precautions Moderate Multiple risk factors, few protective factors Suicidal ideation with plan, but no intent or behavior Admission may be necessary depending on risk factors. Develop crisis plan. Give emergency/crisis numbers Low Modifiable risk factors, strong protective factors Thoughts of , no plan, intent or behavior Outpatient referral, symptom reduction. Give emergency/crisis numbers Risk level: mild Current Outpatient Medications on File Prior to Visit Medication Sig citalopram hydrobromide (CELEXA) 10 mg tablet Take 1 tablet by mouth every other day. Blood-Glucose Sensor (BioscanR, INCCOM G7 SENSOR) mallika Use as directed to monitor blood glucose 4-6 times per day. Reactive hypoglycemia [E16.1] Blood-Glucose Meter,Continuous (DEXCOM G7 CEMETERY VAULT INSTALLER) misc Use as directed to monitor blood glucose 4-6 times per day. Reactive hypoglycemia [E16.1] metFORMIN ER (GLUCOPHAGE XR) 500 mg 24 hr tablet Take 1 tablet by mouth three times a day with meals. albuterol HFA (PROVENTIL HFA, VENTOLIN HFA) 90 mcg/actuation inhaler INHALE 2 PUFFS INSTRUCTED EVERY 4 HOURS NEEDED FOR WHEEZING/SHORTNESS OF BREATH. busPIRone (BUSPAR) 10 mg tablet Take 1 tablet by mouth three times a day. cariprazine (VRAYLAR) 4.5 mg capsule Take 1 capsule by mouth once daily. lamoTRIgine (LAMICTAL) 100 mg tablet TAKE 1 TABLET BY MOUTH EVERYDAY AT BEDTIME traZODone (DESYREL) 100 mg tablet Take 1 tablet by mouth daily at bedtime. montelukast (SINGULAIR) 10 mg tablet take 1 tablet by mouth every day fluticasone-salmeterol (ADVAIR, WIXELA) 250-50 mcg/dose inhaler INHALE 1 PUFF INSTRUCTED TWO TIMES A DAY. budesonide (PULMICORT) 0.5 mg/2 mL nebulizer solution USE 2 ML VIA NEBULIZER EVERY 12 HOURS. INHALE OVER 5-15 MINUTES blood sugar diagnostic (BLOOD GLUCOSE TEST) test strip Use as instructed to check blood glucose level one time daily predniSONE (DELTASONE) 20 mg tablet 2 a day for 3 days fluticasone (FLONASE) 50 mcg/actuation nasal spray Use 1 [place] in each nostril once daily. fluconazole (DIFLUCAN) 100 mg tablet Take 1 tablet by mouth once daily. Blood-Glucose Transmitter (DEXCOM G6 TRANSMITTER) mallika 1 Each once daily. [DISCONTINUED] levalbuterol tartrate HFA 45 mcg/actuation inhaler Inhale 2 Puffs as instructed every 4 hours as needed for wheezing/shortness of breath. Lancets lancets Use as instructed Blood-Glucose Meter 1 Each once daily. ergocalciferol 50,000 unit capsule (VITAMIN D2, DRISDOL) Take 1 capsule by mouth one time a week. ferrous sulfate 325 mg (65 mg iron) tablet Take 1 tablet by mouth two times a day. albuterol (PROVENTIL) 2.5 mg /3 mL (0.083 %) nebulizer solution Use 3 mL via nebulizer every 4 hours as needed for wheezing/shortness of breath. Inhale by nebulizer over 5-15 minutes. albuterol HFA (PROAIR HFA) 90 mcg/actuation inhaler Inhale 2 Puffs as instructed every 6 hours as needed for wheezing/shortness of breath. mepolizumab (NUCALA) 100 mg injection Inject 100 mg subcutaneously every 4 weeks. Nebulizer and Compressor For Neb Use as directed FEXOFENADINE HCL (LAQUITA ALLERGY ORAL) Take by mouth once daily. No current facility-administered medications on file prior to visit. Medication side effects: None Delusions: None Hallucinations: none Past family; and social history reviewed. VITAL SIGNS: LMP 07/06/2023 (Exact Date) LAB DATA: Reviewed and discussed. No data to display AIMS TESTING Negative MENTAL STATUS EXAMINATION: Appearance: appears younger stated age, ,Female, well developed, well nourished, obese, casual clothing, grooming is Within Normal Limits, Psychomotor Activity: Steady gait, good muscle tone Per patient report d/t virtual appointment. Denies recent falls. Behavior: Cooperative, engaged, Fair eye contact, Speech: spontaneous , Normal rate, Normal volume, Clear, Mood: less depression and anxiety, less labile overall Affect: appropriate to content Thought Process: circumstantial and less perseveration Thought Content: No suicidal thoughts, No homicidal ideation, intent or plan., Cognition: Orientation: Person, Place, Time and Situation Attention: Fair Concentration:Fair Language: Intact Estimated Intelligence: Average Memory: Intact Abstraction: Intact Insight: adequate Judgement: adequate RISK ASSESSMENT: Discussed the risk and benefit of the medication, client demonstrates understanding. Discussed importance of the chosen treatment plan. Client agrees with the discussed plans and efforts to keep within the stated plan. PDMP website checked and validated. All prescriptions have been APPROPRIATELY filled. No suspicious activity was identified. 12/03/2023 by Chase Bazan APRN.CNP PLAN: - Continue Lamictal 100mg qhs - Decrease Vraylar to 3mg daily - Continue Trazodone 100mg qhs - Continue Buspar 10mg tid - Continue Celexa 10mg daily - OARRS report reviewed. - Explained to the patient risks, benefits, side effects of the medications. Risks and side effects explained but not limited to black box warning. The patient has the capacity and gives me informed consent for the medication. - Check yourself in the ER or call 911 for help if you have any suicidal or homicidal thoughts, or if not able to take care of self at home with supports. - Recommended healthy and balanced diet. - Recommended seeing a therapist. - Labs reviewed - Discussed the hazards of tobacco smoking (use). Smoking cessation recommended and techniques and options to help patient quit were discussed. - Discussed importance of regular exercise and recommended starting or continuing a regular exercise program for good health. I spent a total of 26 minutes on the date of service which included preparing to see the patient, [id number] patient care, completing clinical documentation, obtaining and/or reviewing separately obtained history, performing a midically appropriate examination, counseling and educating the patient/family/caregiver, and independently interpreting results (not separately reported). ASSESSMENT/PLAN: 1. Bipolar II disorder (HCC) - ICD9: 296.89, ICD10: F31.81 (primary diagnosis) - CARIPRAZINE 3 MG CAPSULE 2. Generalized anxiety disorder - ICD9: 300.02, ICD10: F41.1 - CITALOPRAM 10 MG TABLET 3. Major depressive disorder, recurrent episode, moderate (HCC) - ICD9: 296.32, ICD10: F33.1 Patient understands and agrees with the treatment plan: Yes Return in about 6 weeks (around 01/13/2024) for @4pm virtual. Chase Bazan APRN.SHEN documented in this encounter [facility] 12-02-2023 Note HNO ID: [id number] Author: CHASE BAZAN APRN.CNP Service: ? Author Type: Nurse Practitioner Type: Progress Notes Filed: 12/02/2023 14:59 Note Text: Fax received from [facility] ([phone]) States patient attended 12 sessions, but did not complete the program. Left Voluntarily Bonds Depression and Anxiety Inventory Scores: Anxiety: Pre-33 Mid-12 Depression: Pre-55 Mid-19 No new orders [facility] 12-02-2023 History of Presen t illness Narrative Fax received from [facility] with [facility] ([phone]) States patient attended 12 sessions, but did not complete the program. Left Voluntarily Bonds Depression and Anxiety Inventory Scores: Anxiety: Pre-33 Mid-12 Depression: Pre-55 Mid-19 No new orders documented in this encounter [facility] 12-02-2023 Note HNO ID: [id number] Author: JAMEY GARDNER PT Service: ? Author Type: Physical Therapist Type: Progress Notes Filed: 12/02/2023 13:07 Note Text: 12/02/2023 [facility] PHYSICAL THERAPY DISCONTINUANCE OF CARE Plan of Care Period: Start of Care Date: 03/17/23 Last Visit Date: 08/07/2023 Therapy Program: The following is a summary of the interventions provided for this episode of care; Therapeutic exercise, Neuromuscular re-education, and Manual therapy Assessment: The following is the goal status: Goals updated 08/07/2023 Goals for Episode of Care: created on 03/17/23 through 06/09/23 [place] in home exercise program. - Met so far Normal gait. - Not assessed Increase ankle strength to a 4+/5 or greater in 12 weeks or less for improved ankle stability when walking - Progressing, will continue Pt will demo R ankle DF ROM equal to that of the opposite leg for improved gait mechanics- Progressing, will continue Pt will report decreased pain with work duties in 8 weeks or less - Met so far Patient Goals: Decrease pain Based on the most recent progress report, patient was progressing slower than expected toward functional goals based on home exercise program compliance and appointment compliance. Reason for Discontinuation of Care: Patient has not returned to therapy or scheduled additional follow-up appointments. Jamey Gardner PT [facility] 11-18-2023 Telephone encounter Note Requester: Patient Last encounter Visit on 11/06/2023 (with Dylan Topete) Follow-up evaluation has been established Upcoming Endocrinology Appointments - Next 365 Days Visit Type Date Time Department EST TONG PATIENT 06/02/2024 2:10 PM ENDO [facility] Requested Prescriptions Pending Prescriptions Disp Refills Blood-Glucose Transmitter (DEXCOM G6 TRANSMITTER) mallika 1 Each 3 Sig: Change transmitter every 90 days. Free T4 Date Value Ref Range Status 04/11/2023 0.9 0.9 - 1.7 ng/dL Final Free T3 Date Value Ref Range Status 04/02/2022 4.3 (H) 2.3 - 4.1 pg/mL Final TSH Date Value Ref Range Status 04/11/2023 2.250 0.270 - 4.200 mIU/L Final Comment: If the patient is , TSH reference range varies by gestational period: First Trimester (weeks 9-12): 0.180-2.990 mIU/L Second Trimester: 0.110-3.980 mIU/L Third Trimester: 0.480-4.710 mIU/L Dandre Welsh et al. A Practical Approach for the Verifications and Determination of Site- and Trimester-Specific Reference Intervals for Thyroid Function tests in . Thyroid, 2019:29:3:412-420. Himanshu Foy, et al. 2017 Guidelines of the [place] Thyroid Association for the Diagnosis and Management of Thyroid Disease during and the . Thyroid, 2017:27:3:315-389. 04/11/2023 2.220 0.270 - 4.200 mIU/L Final Comment: If the patient is , TSH reference range varies by gestational period: First Trimester (weeks 9-12): 0.180-2.990 mIU/L Second Trimester: 0.110-3.980 mIU/L Third Trimester: 0.480-4.710 mIU/L Dandre Welsh et al. A Practical Approach for the Verifications and Determination of Site- and Trimester-Specific Reference Intervals for Thyroid Function tests in . Thyroid, 2019:29:3:412-420. Himanshu Foy, et al. 2017 Guidelines of the [place] Thyroid Association for the Diagnosis and Management of Thyroid Disease during and the . Thyroid, 2017:27:3:315-389. THYROID PEROXIDASE ANTIBODY Date Value Ref Range Status 04/10/2022 11.5 (H) <5.6 IU/mL Final Comment: Thyroid Peroxidase Antibody test is used as an aid in diagnosis of autoimmune thyroid disease. Clinical correlation is required. Hemoglobin A1C (POCT) Date Value Ref Range Status 11/06/2023 5.2 4.3 - 5.6 % Final Comment: Location:[facility], [address], [place], [address] Point of care (POC) Hemoglobin A1c (HGBA1C) testing is intended to assess glucose control and provide a management tool for patients known to have diabetes and their healthcare providers. Target HGBA1C levels may depend on specific clinical circumstances. POC HGBA1C is not intended for use as a diagnostic or screening test; laboratory-based testing should be used for diagnostic purposes. The following information is supplemental and may not be applicable to specific diabetes management situations: The POC device maintainer plant provides a normal range of 4.2% to 6.5% for the HGBA1C POC test. However, the [place] Diabetes Association guidelines indicate that patients with HGBA1C in the range of 5.7% to 6.4% are at increased risk for development of diabetes and that intervention by lifestyle modification may be beneficial. A HGBA1C level greater than or equal to 6.5% is considered diagnostic of diabetes, pending confirmatory testing. Use of HGBA1C testing to evaluate glucose control may not be appropriate for patients with hemoglobin variants or other conditions (e.g. anemia) that alter red blood cell lifespan. Insulin Date Value Ref Range Status 04/11/2023 21.0 3.0 - 25.0 mU/L Final Glucose Date Value Ref Range Status 04/12/2023 74 74 - 99 mg/dL Final Comment: The [place] Diabetes Association (ADA) provides guidance for cutoff values for fasting glucose and random glucose. The ADA defines fasting as no caloric intake for at least 8 hours. Fasting plasma glucose results between 100 to 125 mg/dL indicate increased risk for diabetes (prediabetes). Fasting plasma glucose results greater than or equal to 126 mg/dL meet the criteria for diagnosis of diabetes. In the absence of unequivocal hyperglycemia, results should be confirmed by repeat testing. In a patient with classic symptoms of hyperglycemia or hyperglycemic crisis, random plasma glucose results greater than or equal to 200 mg/dL meet the criteria for diagnosis of diabetes. Reference: Standards of Medical Care in Diabetes 2016, [place] Diabetes Association. Diabetes Care. 2016.39(Suppl 1). Vitamin D 25 Hydroxy Date Value Ref Range Status 04/02/2022 17.6 (L) 31.0 - 80.0 ng/mL Final Comment: Classification of 25 [place] Vitamin D status: Deficiency/Insufficiency: < or = 30 ng/ml. Sufficiency/Optimal Levels: 31-80 ng/mL Toxicity: > 100 ng/mL. Test performed by chemiluminescent immunoassay. If patient is due for an appointment please route to provider for refill consideration and also to the endo scheduling pool. PSS NOTE: Patient needs scheduled appointment No SERGE Garcia [facility] 11-18-2023 Miscellaneous Notes Requester: Patient Last encounter Visit on 11/06/2023 (with Dylan Topete) Follow-up evaluation has been established Upcoming Endocrinology Appointments - Next 365 Days Visit Type Date Time Department EST TONG PATIENT 06/02/2024 2:[address] [facility] Requested Prescriptions Pending Prescriptions Disp Refills Blood-Glucose Transmitter (DEXCOM G6 TRANSMITTER) mallika 1 Each 3 Sig: Change transmitter every 90 days. Free T4 Date Value Ref Range Status 04/11/2023 0.9 0.9 - 1.7 ng/dL Final Free T3 Date Value Ref Range Status 04/02/2022 4.3 (H) 2.3 - 4.1 pg/mL Final TSH Date Value Ref Range Status 04/11/2023 2.250 0.270 - 4.200 mIU/L Final Comment: If the patient is , TSH reference range varies by gestational period: First Trimester (weeks 9-12): 0.180-2.990 mIU/L Second Trimester: 0.110-3.980 mIU/L Third Trimester: 0.480-4.710 mIU/L Dandre Welsh et al. A Practical Approach for the Verifications and Determination of Site- and Trimester-Specific Reference Intervals for Thyroid Function tests in . Thyroid, 2019:29:3:412-420. Himanshu Foy et al. 2017 Guidelines of the [place] Thyroid Association for the Diagnosis and Management of Thyroid Disease during and the . Thyroid, 2017:27:3:315-389. 04/11/2023 2.220 0.270 - 4.200 mIU/L Final Comment: If the patient is , TSH reference range varies by gestational period: First Trimester (weeks 9-12): 0.180-2.990 mIU/L Second Trimester: 0.110-3.980 mIU/L Third Trimester: 0.480-4.710 mIU/L Dandre Welsh et al. A Practical Approach for the Verifications and Determination of Site- and Trimester-Specific Reference Intervals for Thyroid Function tests in . Thyroid, 2019:29:3:412-420. Himanshu Foy, et al. 2017 Guidelines of the [place] Thyroid Association for the Diagnosis and Management of Thyroid Disease during and the . Thyroid, 2017:27:3:315-389. THYROID PEROXIDASE ANTIBODY Date Value Ref Range Status 04/10/2022 11.5 (H) <5.6 IU/mL Final Comment: Thyroid Peroxidase Antibody test is used as an aid in diagnosis of autoimmune thyroid disease. Clinical correlation is required. Hemoglobin A1C (POCT) Date Value Ref Range Status 11/06/2023 5.2 4.3 - 5.6 % Final Comment: Location:[facility], [facility] [address], [place], [address] Point of care (POC) Hemoglobin A1c (HGBA1C) testing is intended to assess glucose control and provide a management tool for patients known to have diabetes and their healthcare providers. Target HGBA1C levels may depend on specific clinical circumstances. POC HGBA1C is not intended for use as a diagnostic or screening test; laboratory-based testing should be used for diagnostic purposes. The following information is supplemental and may not be applicable to specific diabetes management situations: The POC device maintainer plant provides a normal range of 4.2% to 6.5% for the HGBA1C POC test. However, the [place] Diabetes Association guidelines indicate that patients with HGBA1C in the range of 5.7% to 6.4% are at increased risk for development of diabetes and that intervention by lifestyle modification may be beneficial. A HGBA1C level greater than or equal to 6.5% is considered diagnostic of diabetes, pending confirmatory testing. Use of HGBA1C testing to evaluate glucose control may not be appropriate for patients with hemoglobin variants or other conditions (e.g. anemia) that alter red blood cell lifespan. Insulin Date Value Ref Range Status 04/11/2023 21.0 3.0 - 25.0 mU/L Final Glucose Date Value Ref Range Status 04/12/2023 74 74 - 99 mg/dL Final Comment: The [place] Diabetes Association (ADA) provides guidance for cutoff values for fasting glucose and random glucose. The ADA defines fasting as no caloric intake for at least 8 hours. Fasting plasma glucose results between 100 to 125 mg/dL indicate increased risk for diabetes (prediabetes). Fasting plasma glucose results greater than or equal to 126 mg/dL meet the criteria for diagnosis of diabetes. In the absence of unequivocal hyperglycemia, results should be confirmed by repeat testing. In a patient with classic symptoms of hyperglycemia or hyperglycemic crisis, random plasma glucose results greater than or equal to 200 mg/dL meet the criteria for diagnosis of diabetes. Reference: Standards of Medical Care in Diabetes 2016, [place] Diabetes Association. Diabetes Care. 2016.39(Suppl 1). Vitamin D 25 Hydroxy Date Value Ref Range Status 04/02/2022 17.6 (L) 31.0 - 80.0 ng/mL Final Comment: Classification of 25 [place] Vitamin D status: Deficiency/Insufficiency: < or = 30 ng/ml. Sufficiency/Optimal Levels: 31-80 ng/mL Toxicity: > 100 ng/mL. Test performed by chemiluminescent immunoassay. If patient is due for an appointment please route to provider for refill consideration and also to the endo scheduling pool. PSS NOTE: Patient needs scheduled appointment SERGE Palacio documented in this encounter [facility] 11-17-2023 Telephone encounter Note Called the patient back 330pm. Kids can be heard in the background. She is caring for them, does not sound irritable with them. She is crying more, no motivation, wanting to stay in bed. She also has times of pacing to help with motivation, Denies it is d/t restlessness/charlene/hypomania. This has been happening since Friday. She denies any action of harm to self or others has been taken. She has more thoughts of SI. She has been getting to work regularly and getting along well with co-workers. She denies impulsivity or reckless behaviors. States she feels hopeless and helpless. She is not being social with friends or family and they are commenting about her lack of interest and participation in activities. She called her home from work today because she has been having intense SI. She denies current SI/HI/ and A/v H. New order to take celexa 10mg every other day. [facility] 11-17-2023 Miscellaneous Notes Called the patient back 330pm. Kids can be heard in the background. She is caring for them, does not sound irritable with them. She is crying more, no motivation, wanting to stay in bed. She also has times of pacing to help with motivation, Denies it is d/t restlessness/charlene/hypomania. This has been happening since Friday. She denies any action of harm to self or others has been taken. She has more thoughts of SI. She has been getting to work regularly and getting along well with co-workers. She denies impulsivity or reckless behaviors. States she feels hopeless and helpless. She is not being social with friends or family and they are commenting about her lack of interest and participation in activities. She called her home from work today because she has been having intense SI. She denies current SI/HI/ and A/v H. New order to take celexa 10mg every other day. Patient called and left voicemail stating she is having increased depression and is struggling. She is requesting to speak with you CLARA Buchanan documented in this encounter [facility] 11-17-2023 Telephone encounter Note Patient called and left voicemail stating she is having increased depression and is struggling. She is requesting to speak with you CLARA Buchanan [facility] 11-06-2023 Note HNO ID: [id number] Author: MALIHA SHIN MA Service: ? Author Type: Supervisor [employer] Type: Procedures Filed: 11/06/2023 09:12 Note Text: [facility] 11-06-2023 Procedure note Images from the original note were not included. [facility] 11-06-2023 Procedure note Images from the original note were not included. documented in this encounter [facility] 11-06-2023 Note HNO ID: [id number] Author: DYLAN TOPETE MD Service: ? Author Type: Physician Type: Progress Notes Filed: 11/06/2023 09:12 Note Text: Subjective: Irvin Kline presents for a follow-up visit. Clinical information regarding need for a continuous glucose monitor (CGM): Irvin Kline has unexplained hypoglycemia; episodes occur multiple times per day AND she has hypoglycemia unawareness Blood glucose log reviewed. She is USING THE CGM DEVICE TO MONITOR BLOOD GLUCOSE continuously 24 hours per day. She has done this for a 60-day period. Irvin is using this information to identify falling blood sugar levels and treat them with dietary interventions. Irvin will follow up every 3-6 months with me. I recommend a CGM for her to improve safety AND avoid severe hypoglycemic episodes requiring ED visits and hospitalization. It is a medical necessity for this patient to have a therapeutic CGM. Answers submitted by the patient for this visit: Core Review of Systems (Submitted on 10/30/2023) Fever : No Night sweats: No Recent unintentional weight change: No Nasal Congestion: No Hearing Loss: No Vision Disturbance: No A cough: No Difficulty Breathing?: No Chest pain: No Irregular heartbeat: No Leg Swelling: No Nausea: No Diarrhea: No Black tarry stools: No Difficulty Urinating?: No Awaken at Night More Than Once to Urinate?: No Joint pain or stiffness: No Muscle aches: No Leg or Foot Discomfort at Night?: No A rash: No Dizziness: No Headaches: No Memory Loss: No Seizures: No Current Outpatient Medications Medication Sig albuterol HFA (PROVENTIL HFA, VENTOLIN HFA) 90 mcg/actuation inhaler INHALE 2 PUFFS INSTRUCTED EVERY 4 HOURS NEEDED FOR WHEEZING/SHORTNESS OF BREATH. busPIRone (BUSPAR) 10 mg tablet Take 1 tablet by mouth three times a day. cariprazine (VRAYLAR) 4.5 mg capsule Take 1 capsule by mouth once daily. lamoTRIgine (LAMICTAL) 100 mg tablet TAKE 1 TABLET BY MOUTH EVERYDAY AT BEDTIME traZODone (DESYREL) 100 mg tablet Take 1 tablet by mouth daily at bedtime. montelukast (SINGULAIR) 10 mg tablet take 1 tablet by mouth every day fluticasone-salmeterol (ADVAIR, WIXELA) 250-50 mcg/dose inhaler INHALE 1 PUFF INSTRUCTED TWO TIMES A DAY. budesonide (PULMICORT) 0.5 mg/2 mL nebulizer solution USE 2 ML VIA NEBULIZER EVERY 12 HOURS. INHALE OVER 5-15 MINUTES blood sugar diagnostic (BLOOD GLUCOSE TEST) test strip Use as instructed to check blood glucose level one time daily predniSONE (DELTASONE) 20 mg tablet 2 a day for 3 days fluticasone (FLONASE) 50 mcg/actuation nasal spray Use 1 [place] in each nostril once daily. fluconazole (DIFLUCAN) 100 mg tablet Take 1 tablet by mouth once daily. Blood-Glucose Sensor (DEXCOM G6 SENSOR) mallika 1 Each once daily. Blood-Glucose Transmitter (DEXCOM G6 TRANSMITTER) mallika 1 Each once daily. metFORMIN ER (GLUCOPHAGE XR) 500 mg 24 hr tablet Take 1 tablet by mouth three times a day with meals. Blood-Glucose Meter,Continuous (DEXCOM G6 CEMETERY VAULT INSTALLER) misc 1 Each once daily. Lancets lancets Use as instructed Blood-Glucose Meter 1 Each once daily. ergocalciferol 50,000 unit capsule (VITAMIN D2, DRISDOL) Take 1 capsule by mouth one time a week. ferrous sulfate 325 mg (65 mg iron) tablet Take 1 tablet by mouth two times a day. albuterol (PROVENTIL) 2.5 mg /3 mL (0.083 %) nebulizer solution Use 3 mL via nebulizer every 4 hours as needed for wheezing/shortness of breath. Inhale by nebulizer over 5-15 minutes. albuterol HFA (PROAIR HFA) 90 mcg/actuation inhaler Inhale 2 Puffs as instructed every 6 hours as needed for wheezing/shortness of breath. mepolizumab (NUCALA) 100 mg injection Inject 100 mg subcutaneously every 4 weeks. Nebulizer and Compressor For Neb Use as directed FEXOFENADINE HCL (LAQUITA ALLERGY ORAL) Take by mouth once daily. No current facility-administered medications for this visit. Objective: BP 118/78 (BP Site: Left Arm, BP Position: Sitting, BP Cuff Size: Large Adult) Pulse 84 Wt 113.9 kg (251 lb 1.7 oz) LMP 07/06/2023 (Exact Date) BMI 43.10 kg/m? BMI 43.10 kg/(m2) Assessment AND Plan: (E16.1) Reactive hypoglycemia (primary encounter diagnosis) (R73.09) Abnormal glucose (E53.8) Vitamin B12 deficiency Her CGM data from the past 14 days was downloaded AND reviewed during the visit. Her time in range data is as follows: Very low (<55%): 0% Low (55-70 mg/dL): 0% Normal (70-180 mg/dL) 100% High (180-250 mg/dL): 0% Very high (>250 mg/dL): 0% Comment about the pattern(s) observed: Although the numbers are within the normal range of 70-180 mg/dL, there is a lot of variability, especially after meals. Irvin is making progress with respect to hypoglycemic events She is tolerating metformin for the most part; she has GI upset at times (depending upon what she eats with it) She was able to lose >20 lbs since our initial visit 6 months ago; further weight loss will (more content not included)... [facility] 11-06-2023 History of Presen t illness Narrative Subjective: Irvin Kline presents for a follow-up visit. Clinical information regarding need for a continuous glucose monitor (CGM): Irvin Kline has unexplained hypoglycemia; episodes occur multiple times per day & she has hypoglycemia unawareness Blood glucose log reviewed. She is USING THE CGM DEVICE TO MONITOR BLOOD GLUCOSE continuously 24 hours per day. She has done this for a 60-day period. Irvin is using this information to identify falling blood sugar levels and treat them with dietary interventions. Irvin will follow up every 3-6 months with me. I recommend a CGM for her to improve safety & avoid severe hypoglycemic episodes requiring ED visits and hospitalization. It is a medical necessity for this patient to have a therapeutic CGM. Answers submitted by the patient for this visit: Core Review of Systems (Submitted on 10/30/2023) Fever : No Night sweats: No Recent unintentional weight change: No Nasal Congestion: No Hearing Loss: No Vision Disturbance: No A cough: No Difficulty Breathing?: No Chest pain: No Irregular heartbeat: No Leg Swelling: No Nausea: No Diarrhea: No Black tarry stools: No Difficulty Urinating?: No Awaken at Night More Than Once to Urinate?: No Joint pain or stiffness: No Muscle aches: No Leg or Foot Discomfort at Night?: No A rash: No Dizziness: No Headaches: No Memory Loss: No Seizures: No Current Outpatient Medications Medication Sig albuterol HFA (PROVENTIL HFA, VENTOLIN HFA) 90 mcg/actuation inhaler INHALE 2 PUFFS INSTRUCTED EVERY 4 HOURS NEEDED FOR WHEEZING/SHORTNESS OF BREATH. busPIRone (BUSPAR) 10 mg tablet Take 1 tablet by mouth three times a day. cariprazine (VRAYLAR) 4.5 mg capsule Take 1 capsule by mouth once daily. lamoTRIgine (LAMICTAL) 100 mg tablet TAKE 1 TABLET BY MOUTH EVERYDAY AT BEDTIME traZODone (DESYREL) 100 mg tablet Take 1 tablet by mouth daily at bedtime. montelukast (SINGULAIR) 10 mg tablet take 1 tablet by mouth every day fluticasone-salmeterol (ADVAIR, WIXELA) 250-50 mcg/dose inhaler INHALE 1 PUFF INSTRUCTED TWO TIMES A DAY. budesonide (PULMICORT) 0.5 mg/2 mL nebulizer solution USE 2 ML VIA NEBULIZER EVERY 12 HOURS. INHALE OVER 5-15 MINUTES blood sugar diagnostic (BLOOD GLUCOSE TEST) test strip Use as instructed to check blood glucose level one time daily predniSONE (DELTASONE) 20 mg tablet 2 a day for 3 days fluticasone (FLONASE) 50 mcg/actuation nasal spray Use 1 [place] in each nostril once daily. fluconazole (DIFLUCAN) 100 mg tablet Take 1 tablet by mouth once daily. Blood-Glucose Sensor (DEXCOM G6 SENSOR) mallika 1 Each once daily. Blood-Glucose Transmitter (DEXCOM G6 TRANSMITTER) mallika 1 Each once daily. metFORMIN ER (GLUCOPHAGE XR) 500 mg 24 hr tablet Take 1 tablet by mouth three times a day with meals. Blood-Glucose Meter,Continuous (DEXCOM G6 CEMETERY VAULT INSTALLER) misc 1 Each once daily. Lancets lancets Use as instructed Blood-Glucose Meter 1 Each once daily. ergocalciferol 50,000 unit capsule (VITAMIN D2, DRISDOL) Take 1 capsule by mouth one time a week. ferrous sulfate 325 mg (65 mg iron) tablet Take 1 tablet by mouth two times a day. albuterol (PROVENTIL) 2.5 mg /3 mL (0.083 %) nebulizer solution Use 3 mL via nebulizer every 4 hours as needed for wheezing/shortness of breath. Inhale by nebulizer over 5-15 minutes. albuterol HFA (PROAIR HFA) 90 mcg/actuation inhaler Inhale 2 Puffs as instructed every 6 hours as needed for wheezing/shortness of breath. mepolizumab (NUCALA) 100 mg injection Inject 100 mg subcutaneously every 4 weeks. Nebulizer and Compressor For Neb Use as directed FEXOFENADINE HCL (LAQUITA ALLERGY ORAL) Take by mouth once daily. No current facility-administered medications for this visit. Objective: BP 118/78 (BP Site: Left Arm, BP Position: Sitting, BP Cuff Size: Large Adult) Pulse 84 Wt 113.9 kg (251 lb 1.7 oz) LMP 07/06/2023 (Exact Date) BMI 43.10 kg/m BMI 43.10 kg/(m^2) Assessment & Plan: (E16.1) Reactive hypoglycemia (primary encounter diagnosis) (R73.09) Abnormal glucose (E53.8) Vitamin B12 deficiency Her CGM data from the past 14 days was downloaded & reviewed during the visit. Her time in range data is as follows: Very low (<55%): 0% Low (55-70 mg/dL): 0% Normal (70-180 mg/dL) 100% High (180-250 mg/dL): 0% Very high (>250 mg/dL): 0% Comment about the pattern(s) observed: Although the numbers are within the normal range of 70-180 mg/dL, there is a lot of variability, especially after meals. Irvin is making progress with respect to hypoglycemic events She is tolerating metformin for the most part; she has GI upset at times (depending upon what she eats with it) She was able to lose >20 lbs since our initial visit 6 months ago; further weight loss will only improve the situation Continue CGM use - Rx for the G7 provided Continue metformin Follow up in 6 months with labs prior to visit Level of complexity: 4 Dylan Topete MD Endocrinology, Diabetes, & Metabolism November 06, 2023 8:42 AM documented in this encounter [facility] 11-03-2023 Instructions Robson Zuniga MD - 11/03/2023 1:07 PM EDT Meds sent Great PFT documented in this encounter [facility] 11-03-2023 Note HNO ID: [id number] Author: ROBSON ZUNIGA MD Service: ? Author Type: Physician Type: Progress Notes Filed: 11/03/2023 13:15 Note Text: VIRTUAL VISIT PROGRESS NOTE This is a virtual visit using [employer] Zoom Video Visit. It required patient-provider interaction for the medical decision making as documented below. I have communicated my name and active licensure. The patient's identity and physical location were verified at the time of this visit. Either the patient or their legal agency service representative has been informed of the risks and benefits of -- and alternatives to -- treatment through a remote evaluation and consents to proceed with the evaluation remotely. 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 HISTORY REVIEWED (electronic chart updated): PAST MEDICAL HISTORY Diagnosis Date Anemia Asthma PAST SURGICAL HISTORY Procedure Laterality Date NONE FAMILY HISTORY Problem Relation Age of Onset Heart Attack Maternal Grandfather Social History Tobacco Use Smoking status: Never Smokeless tobacco: Never Vaping Use Vaping status: Never Used Substance Use Topics Alcohol use: Yes Comment: social Drug use: No Current Outpatient Medications Medication Sig albuterol HFA (PROVENTIL HFA, VENTOLIN HFA) 90 mcg/actuation inhaler INHALE 2 PUFFS INSTRUCTED EVERY 4 HOURS NEEDED FOR WHEEZING/SHORTNESS OF BREATH. busPIRone (BUSPAR) 10 mg tablet Take 1 tablet by mouth three times a day. cariprazine (VRAYLAR) 4.5 mg capsule Take 1 capsule by mouth once daily. lamoTRIgine (LAMICTAL) 100 mg tablet TAKE 1 TABLET BY MOUTH EVERYDAY AT BEDTIME traZODone (DESYREL) 100 mg tablet Take 1 tablet by mouth daily at bedtime. montelukast (SINGULAIR) 10 mg tablet take 1 tablet by mouth every day fluticasone-salmeterol (ADVAIR, WIXELA) 250-50 mcg/dose inhaler INHALE 1 PUFF INSTRUCTED TWO TIMES A DAY. budesonide (PULMICORT) 0.5 mg/2 mL nebulizer solution USE 2 ML VIA NEBULIZER EVERY 12 HOURS. INHALE OVER 5-15 MINUTES blood sugar diagnostic (BLOOD GLUCOSE TEST) test strip Use as instructed to check blood glucose level one time daily predniSONE (DELTASONE) 20 mg tablet 2 a day for 3 days (Patient not taking: Reported on 08/06/2023) fluticasone (FLONASE) 50 mcg/actuation nasal spray Use 1 [place] in each nostril once daily. (Patient not taking: Reported on 08/06/2023) fluconazole (DIFLUCAN) 100 mg tablet Take 1 tablet by mouth once daily. (Patient not taking: Reported on 08/06/2023) Blood-Glucose Sensor (DEXCOM G6 SENSOR) mallika 1 Each once daily. Blood-Glucose Transmitter (DEXCOM G6 TRANSMITTER) mallika 1 Each once daily. metFORMIN ER (GLUCOPHAGE XR) 500 mg 24 hr tablet Take 1 tablet by mouth three times a day with meals. Blood-Glucose Meter,Continuous (DEXCOM G6 CEMETERY VAULT INSTALLER) misc 1 Each once daily. Lancets lancets Use as instructed Blood-Glucose Meter 1 Each once daily. ergocalciferol 50,000 unit capsule (VITAMIN D2, DRISDOL) Take 1 capsule by mouth one time a week. ferrous sulfate 325 mg (65 mg iron) tablet Take 1 tablet by mouth two times a day. albuterol (PROVENTIL) 2.5 mg /3 mL (0.083 %) nebulizer solution Use 3 mL via nebulizer every 4 hours as needed for wheezing/shortness of breath. Inhale by nebulizer over 5-15 minutes. albuterol HFA (PROAIR HFA) 90 mcg/actuation inhaler Inhale 2 Puffs as instructed every 6 hours as needed for wheezing/shortness of breath. mepolizumab (NUCALA) 100 mg injection Inject 100 mg subcutaneously every 4 weeks. Nebulizer and Compressor For Neb Use as directed FEXOFENADINE HCL (LAQUITA ALLERGY ORAL) Take by mouth once daily. No current facility-administered medications for this visit. ALLERGIES Allergen Reactions Rocephin [Ceftriaxo* Anaphylaxis per pt mother was 3yo REVIEW OF SYSTEMS: PHYSICAL EXAMINATION: VIDEO EXAM: (if completed, performed via video enabled technology) Ambulatory No cough Obese Some visual acne Delightful No sob PFT BETTER Pre LLN Pred ULN %Pred Post %Pred %Chg SPIROMETRY FVC (L) 3.31 2.61 3.39 4.19 97 3.60 106 8 FEV1 (L) 2.47 2.20 2.87 3.51 86 2.76 96 10 FEV1/FVC 0.75 0.74 0.85 0.93 87 0.77 90 2 PEF L/s (L/sec) 6.30 5.21 6.87 8.53 91 6.66 96 5 FEF50 (L/sec) 2.78 2.29 3.90 5.51 71 3.44 88 23 FIF50 (L/sec) 3.19 4.32 35 FEF50/FIF50 0.87 90-100 0.80 -8 FIVC (L) 3.27 3.48 6 XKL37-21 (L/sec) 1.94 2.14 3.37 4.83 57 2.91 86 49 Time (sec) 8.95 7.41 -17 FET PEF (sec) 0.07 0.07 14 CHIKIS (L) 0.07 0.08 21 Vol Extrap % (%) 2 2 12 ASSESSMENT: (J45.50) Asthma, late onset, severe persistent, uncomplicated (primary encounter diagnosis) BRAYAN DOWN 35 FROM 71 PFT MUCH BETTER SMALL AIRWAYS BETTER LESS PREDNISONE Neb bud/ wixela/ LTA/ nucala PLAN: Sent In meds Nucala helping and sites ok Pft (more content not included)... [facility] 11-03-2023 History of Presen t illness Narrative VIRTUAL VISIT PROGRESS NOTE This is a virtual visit using [employer] Zoom Video Visit. It required patient-provider interaction for the medical decision making as documented below. I have communicated my name and active licensure. The patient's identity and physical location were verified at the time of this visit. Either the patient or their legal agency service representative has been informed of the risks and benefits of -- and alternatives to -- treatment through a remote evaluation and consents to proceed with the evaluation remotely. 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 HISTORY REVIEWED (electronic chart updated): PAST MEDICAL HISTORY Diagnosis Date Anemia Asthma PAST SURGICAL HISTORY Procedure Laterality Date NONE FAMILY HISTORY Problem Relation Age of Onset Heart Attack Maternal Grandfather Social History Tobacco Use Smoking status: Never Smokeless tobacco: Never Vaping Use Vaping status: Never Used Substance Use Topics Alcohol use: Yes Comment: social Drug use: No Current Outpatient Medications Medication Sig albuterol HFA (PROVENTIL HFA, VENTOLIN HFA) 90 mcg/actuation inhaler INHALE 2 PUFFS INSTRUCTED EVERY 4 HOURS NEEDED FOR WHEEZING/SHORTNESS OF BREATH. busPIRone (BUSPAR) 10 mg tablet Take 1 tablet by mouth three times a day. cariprazine (VRAYLAR) 4.5 mg capsule Take 1 capsule by mouth once daily. lamoTRIgine (LAMICTAL) 100 mg tablet TAKE 1 TABLET BY MOUTH EVERYDAY AT BEDTIME traZODone (DESYREL) 100 mg tablet Take 1 tablet by mouth daily at bedtime. montelukast (SINGULAIR) 10 mg tablet take 1 tablet by mouth every day fluticasone-salmeterol (ADVAIR, WIXELA) 250-50 mcg/dose inhaler INHALE 1 PUFF INSTRUCTED TWO TIMES A DAY. budesonide (PULMICORT) 0.5 mg/2 mL nebulizer solution USE 2 ML VIA NEBULIZER EVERY 12 HOURS. INHALE OVER 5-15 MINUTES blood sugar diagnostic (BLOOD GLUCOSE TEST) test strip Use as instructed to check blood glucose level one time daily predniSONE (DELTASONE) 20 mg tablet 2 a day for 3 days (Patient not taking: Reported on 08/06/2023) fluticasone (FLONASE) 50 mcg/actuation nasal spray Use 1 [place] in each nostril once daily. (Patient not taking: Reported on 08/06/2023) fluconazole (DIFLUCAN) 100 mg tablet Take 1 tablet by mouth once daily. (Patient not taking: Reported on 08/06/2023) Blood-Glucose Sensor (DEXCOM G6 SENSOR) mallika 1 Each once daily. Blood-Glucose Transmitter (DEXCOM G6 TRANSMITTER) mallika 1 Each once daily. metFORMIN ER (GLUCOPHAGE XR) 500 mg 24 hr tablet Take 1 tablet by mouth three times a day with meals. Blood-Glucose Meter,Continuous (DEXCOM G6 CEMETERY VAULT INSTALLER) misc 1 Each once daily. Lancets lancets Use as instructed Blood-Glucose Meter 1 Each once daily. ergocalciferol 50,000 unit capsule (VITAMIN D2, DRISDOL) Take 1 capsule by mouth one time a week. ferrous sulfate 325 mg (65 mg iron) tablet Take 1 tablet by mouth two times a day. albuterol (PROVENTIL) 2.5 mg /3 mL (0.083 %) nebulizer solution Use 3 mL via nebulizer every 4 hours as needed for wheezing/shortness of breath. Inhale by nebulizer over 5-15 minutes. albuterol HFA (PROAIR HFA) 90 mcg/actuation inhaler Inhale 2 Puffs as instructed every 6 hours as needed for wheezing/shortness of breath. mepolizumab (NUCALA) 100 mg injection Inject 100 mg subcutaneously every 4 weeks. Nebulizer and Compressor For Neb Use as directed FEXOFENADINE HCL (LAQUITA ALLERGY ORAL) Take by mouth once daily. No current facility-administered medications for this visit. ALLERGIES Allergen Reactions Rocephin [Ceftriaxo* Anaphylaxis per pt mother was 3yo REVIEW OF SYSTEMS: PHYSICAL EXAMINATION: VIDEO EXAM: (if completed, performed via video enabled technology) Ambulatory No cough Obese Some visual acne Delightful No sob PFT BETTER Pre LLN Pred ULN %Pred Post %Pred %Chg SPIROMETRY FVC (L) 3.31 2.61 3.39 4.19 97 3.60 106 8 FEV1 (L) 2.47 2.20 2.87 3.51 86 2.76 96 10 FEV1/FVC 0.75 0.74 0.85 0.93 87 0.77 90 2 PEF L/s (L/sec) 6.30 5.21 6.87 8.53 91 6.66 96 5 FEF50 (L/sec) 2.78 2.29 3.90 5.51 71 3.44 88 23 FIF50 (L/sec) 3.19 4.32 35 FEF50/FIF50 0.87 90-100 0.80 -8 FIVC (L) 3.27 3.48 6 RQI10-88 (L/sec) 1.94 2.14 3.37 4.83 57 2.91 86 49 Time (sec) 8.95 7.41 -17 FET PEF (sec) 0.07 0.07 14 CHIKIS (L) 0.07 0.08 21 Vol Extrap % (%) 2 2 12 ASSESSMENT: (J45.50) Asthma, late onset, severe persistent, uncomplicated (primary encounter diagnosis) BRAYAN DOWN 35 FROM 71 PFT MUCH BETTER SMALL AIRWAYS BETTER LESS PREDNISONE Neb bud/ wixela/ LTA/ nucala PLAN: Sent In Immune Targeting Systemss Nucala helping and sites ok Pft better Out 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 No significant weight loss. No active GI bleeding, no stated acute abdominal pain. Denies active neurological seizures or focal deficit. No obvious cervical lymphadenopathy, no stated tinnitus. No significant acute chest pain or hemoptysis. No active wheezing today. No new overt heart failure or angina. Denies syncope. Pex: limited, video No distress. Verbal. Alert. No conversational dyspnea. No limiting cough. Age appropriate. No facial asymmetry. ESPARZA. Speech intact. documented in this encounter [facility] 11-03-2023 Telephone encounter Note 04/24/23 last appointment [facility] 11-03-2023 Miscellaneous Notes 04/24/23 last appointment documented in this encounter [facility] 10-28-2023 Note HNO ID: [id number] Author: MERA PÉREZ RRT Service: ? Author Type: Registered Resp Therapist Type: Procedures Filed: 10/28/2023 13:36 Note Text: RESPIRATORY THERAPY ORAL EXHALED NITRIC OXIDE SERVICE DATE: 10/28/2023 SERVICE TIME: 1:36 PM Oral Exhaled Nitric Oxide measurement: 36.0 (ppb) Normal: Adult <25 ppb, pediatric (<12 years) <20 ppb High Normal / Increased: Adult 25-50 ppb, pediatric (<12 years) 20-35 ppb Moderately raised exhaled Nitric Oxide may indicate underlying inflammation, but note that: Cold and influenza can raise exhaled Nitric Oxide and some patients have higher baseline exhaled Nitric Oxide levels than others. High: Adult >50 ppb, pediatric (<12 years) >35 ppb Indicative of ongoing eosinophilic inflammation. Symptomatic patient likely to respond to steroids. Possible causes (if already on steroids): Poor compliance, recent allergen exposure, steroid dose inadequate, and steroid resistance. Note that not all patients with high exhaled nitric oxide levels display symptoms. Oral Exhaled Nitric Oxide measurement (Previous Encounters) Test Date Oral Exhaled Nitric Oxide (ppb) 10/28/2023 36.0 (A) 09/26/2022 71.0 (A) NAME: MERA PÉREZ RRT PATIENT NAME: Irvin Kline DATE: October 28, 2023 TIME: 1:[address] [facility] 10-28-2023 Procedure note Associated Ord er(s): NITRIC OXIDE, EXHALED RESPIRATORY THERAPY ORAL EXHALED NITRIC OXIDE SERVICE DATE: 10/28/2023 SERVICE TIME: 1:36 PM Oral Exhaled Nitric Oxide measurement: 36.0 (ppb) Normal: Adult <25 ppb, pediatric (<12 years) <20 ppb High Normal / Increased: Adult 25-50 ppb, pediatric (<12 years) 20-35 ppb Moderately raised exhaled Nitric Oxide may indicate underlying inflammation, but note that: Cold and influenza can raise exhaled Nitric Oxide and some patients have higher baseline exhaled Nitric Oxide levels than others. High: Adult >50 ppb, pediatric (<12 years) >35 ppb Indicative of ongoing eosinophilic inflammation. Symptomatic patient likely to respond to steroids. Possible causes (if already on steroids): Poor compliance, recent allergen exposure, steroid dose inadequate, and steroid resistance. Note that not all patients with high exhaled nitric oxide levels display symptoms. Oral Exhaled Nitric Oxide measurement (Previous Encounters) Test Date Oral Exhaled Nitric Oxide (ppb) 10/28/2023 36.0 (A) 09/26/2022 71.0 (A) NAME: MERA PÉREZ RRT PATIENT NAME: Irvin Kline DATE: October 28, 2023 TIME: 1:36 PM [facility] 10-28-2023 Procedure note Associated Ord er(s): NITRIC OXIDE, EXHALED RESPIRATORY THERAPY ORAL EXHALED NITRIC OXIDE SERVICE DATE: 10/28/2023 SERVICE TIME: 1:36 PM Oral Exhaled Nitric Oxide measurement: 36.0 (ppb) Normal: Adult <25 ppb, pediatric (<12 years) <20 ppb High Normal / Increased: Adult 25-50 ppb, pediatric (<12 years) 20-35 ppb Moderately raised exhaled Nitric Oxide may indicate underlying inflammation, but note that: Cold and influenza can raise exhaled Nitric Oxide and some patients have higher baseline exhaled Nitric Oxide levels than others. High: Adult >50 ppb, pediatric (<12 years) >35 ppb Indicative of ongoing eosinophilic inflammation. Symptomatic patient likely to respond to steroids. Possible causes (if already on steroids): Poor compliance, recent allergen exposure, steroid dose inadequate, and steroid resistance. Note that not all patients with high exhaled nitric oxide levels display symptoms. Oral Exhaled Nitric Oxide measurement (Previous Encounters) Test Date Oral Exhaled Nitric Oxide (ppb) 10/28/2023 36.0 (A) 09/26/2022 71.0 (A) NAME: MERA PÉREZ RRT PATIENT NAME: Irvin Kline DATE: October 28, 2023 TIME: 1:36 PM documented in this encounter [facility] 10-28-2023 Note HNO ID: [id number] Author: MERA PÉREZ RRT Service: ? Author Type: Registered Resp Therapist Type: Progress Notes Filed: 10/28/2023 13:35 Note Text: PULM FUNCTION: Provider: Nella Payton MD Spirometry w/BD: 1 Exhaled Nitric Oxide: [address] [facility] 10-28-2023 History of Presen t illness Narrative PULM FUNCTION: Provider: Nella Payton MD Spirometry w/BD: 1 Exhaled Nitric Oxide: 1 documented in this encounter [facility] 10-23-2023 Telephone encounter Note Called patient to check status of covid test and symptoms, no answer. Left VM to call offcie [facility] 10-23-2023 Miscellaneous Notes Called patient to check status of covid test and symptoms, no answer. Left VM to call offcie Patient scheduled 10/27 for breathing tests Pt called notes she has cold symptoms, stuffy runny nose, had sore throat a couple days ago but feeling ok now, cough, no productive, no fever, chest tightness. Asked patient to test for covid. She will get a test CLARA. Pt wants to take RX for prednisone she has at home. Advised pt to test first and let us know the results. documented in this encounter [facility] 10-23-2023 Telephone encounter Note Patient scheduled 10/27 for breathing tests [facility] 10-22-2023 Telephone encounter Note Received signed form back from dr. Zuniga- faxed over to Number on form [phone] [facility] 10-22-2023 Miscellaneous Notes Received signed form back from dr. Zuniga- faxed over to Number on form [phone] documented in this encounter [facility] 10-22-2023 Telephone encounter Note Pt called notes she has cold symptoms, stuffy runny nose, had sore throat a couple days ago but feeling ok now, cough, no productive, no fever, chest tightness. Asked patient to test for covid. She will get a test CLARA. Pt wants to take RX for prednisone she has at home. Advised pt to test first and let us know the results. [facility] 10-21-[address] Zuniga, Form was faxed this morning, I have just sent it to the [place] office again if you want to sign the document. Thanks Chad Gore Dr. Zuniga stated he will sign papers at her next visit, she has not been seen in 6 mos. If she needs sooner than 11/03/23 she can be scheduled clara w/CRYPTOGRAPHER. The form is at the [place] office. Chad Gore Called patient- she said she is already scheduled for follow up. Just wanting to know if we got the papers from [employer] PSS: Please schedule patient in office clara for Zuniga or CRYPTOGRAPHER follow up to be seen for Medical Certification [employer] assistance. Thank you in advance for your help. Thank you Chad Gore Dr. Zuniga, So noted, I will send a scheduling request. Thank you Chad Gore Dr. Zuniga, She did cancel for September but she was seen virtual by you on 04/24/2023, would this suffice? Thank you Chad Gore Images from the original note were not included. Robson Zuniga MD Busta, Lisbeth; Pulm [facility] hour ago (11:55 AM) Happy to discuss at next appt. I dont think she made it for last appt. Type of form: [employer] Form received via fax When form is completed, Fax form to Form has been faxed to [facility] office for completion for Dr. Zuniga inbox. Chad Gore documented in this encounter [facility] 10-21-[address] Zuniga, Form was faxed this morning, I have just sent it to the [facility] again if you want to sign the document. Thanks Chad Gore [facility] 10-21-[address] Zuniga stated he will sign papers at her next visit, she has not been seen in 6 mos. If she needs sooner than 11/03/23 she can be scheduled clara w/CRYPTOGRAPHER. The form is at the [place] office. Chad Gore [facility] 10-21-2023 Telephone encounter Note Called patient- she said she is already scheduled for follow up. Just wanting to know if we got the papers from [employer] [facility] 10-21-2023 Telephone encounter Note PSS: Please schedule patient in office clara for Efrain or CRYPTOGRAPHER follow up to be seen for Medical Certification [employer] assistance. Thank you in advance for your help. Thank you Chad Gore [facility] 10-21-2023 Telephone encounter Note Opened in error, see duplicate encounter [facility] 10-21-2023 Miscellaneous Notes Opened in error, see duplicate encounter documented in this encounter [facility] 10-21-[address] Zuniga, So noted, I will send a scheduling request. Thank you Chad Gore [facility] 10-21-2023 Note HNO ID: [id number] Author: CHASE BAZAN APRN.[employer] Service: ? Author Type: Nurse Practitioner Type: Progress Notes Filed: 10/21/2023 14:35 Note Text: [facility] PROGRESS NOTE PATIENT: Irvin Kline MRD: [id number] DATE: October 21, 2023 IDENTIFYING INFORMATION: Irvin is a 33 year old female with a history of bipolar and anxiety. This visit is being conducted using HIPPA compliant telecommunication system permitting interactive audio and video Proper identity has been estbablished and consent to treat is confirmed. My chart format utilized I have communicated my name and active licensure. The patient's identity and physical location were verified at the time of this visit. Either the patient or their legal agency service representative has been informed of the risks and benefits of Medicine -- and alternatives to Mental health disorders-- treatment through a remote evaluation and consents to proceed with the evaluation remotely. CHIEF COMPLAINT: Patient presents with: Bipolar Disorder Anxiety INTERIM HISTORY: The patient was last seen 10/03/23 at which time celexa was stopped to assess charlene/hypomania, and all other medications continued. She began messaging 10/08/23 with reports of increased depression , tearfulness as well as having had a panic attack. Vraylar was increased at that time. On 10/10/23 she reported trouble sleeping, was waking multiple times. She notes more stable mood and consistent sleep. No panic. Completing self care. Less impulsive, denies excessive spending. Admits to occasional urges to be impulsive, but spoke of tactics learned in therapy that help. Things are calmer at work d/t the person she is able to put into practice the mindfulness techniques she is learning in group. She has plans to continue with individual counseling. She likes the reinforcement of tools learned as well as being able to discuss parenting concerns. She feels more relaxed with her kids. Her daughter has started back to school and she admits this eases her anxiety and stress. No panic attacks or outbursts. I am calmer with them. She is getting to work on time and completing tasks. She is more helpful around the house and admits her helps too. No anger or irritability. Occasionally tearful, but not like it was. I am more in control. Denies SI/HI/ and A/V H. No concern of paranoia, delusions, or psychosis. The patient does not appear to be responding to internal or external stimuli. Sleep has improved, generally wakes x 1 to void. Can get back to sleep easily. She falls asleep quickly and does not feel lethargic in the mornings. More consistent hours. She spoke of going to the [employer] [facility] with her bonus parents Jac and Beba. They are very supportive of her and her kids. ROS Substance Use History: No change-confirmed 09/23/23 appt. Alcohol: Social drinker Tobacco: Used to vape Marijuana: Never Illegal drug Use: Never Medication Review: Lamictal 100mg qhs Vraylar to 4.5 mg daily Buspar 10mg tid Trazodone 100mg nightly PDMP: 270-Adderall XR 30mg daily-last fill 06/09/23, Adderall XR 15mg #30-05/21/23 Phentermine #30-11/26/22 Previous Medication Trials: Adderall xr started 06/10, Abilify 15mg 02/07-ineffective, lamictal (09/08-06/10)Ineffective, Seroquel 100mg (05/09), Zoloft-becam ineffective overtime, Effexor-bugs crawling on me. Latuda-more manic, Hospitalizations: Never--not admitted. 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 Therapy: [facility] RATING SCALES: PHQ-9 PHQ-9 Score: 5 (10/14/2023 7:06 PM) (0-4) minimal depression, (5-9) mild depression, (10-14) moderate depression, (15-19) moderately severe depression, (20-27) severe depression SHIRLENE-7 SHIRLENE-7 Total Score: 5 (10/14/2023 7:07 PM) (0-4) minimal anxiety, (5-9) mild anxiety, (10-14) moderate anxiety, (15-21) severe anxiety Depression Screenin10/02/2023 10/14/2023 PHQ-9 All Questions Little interest or pleasure in doing things 2 1 Feeling down, depressed, or hopeless 0 1 Trouble falling or staying asleep, or sleeping too much 0 1 Feeling tired or having little energy 0 2 Poor appetite or overeating 0 0 Feeling bad about yourself - or that you are a failure or have let yourself or your family down 2 0 Trouble concentrating on things, such as reading the newspaper or watching television 2 0 Moving or speaking so slowly that other people could have noticed. Or the opposite - being so fidgety or restless that you have been moving around a lot more than usual 0 0 Thoughts that you would be better off , or of hurting yourself in some way 0 0 PHQ-9 Score 6 5 (0-4) Minimal Depression ( (more content not included)... [facility] 10-21-2023 History of Presen t illness Narrative Images from the original note were not included. [facility] PROGRESS NOTE PATIENT: Irvin Kline MRD: [id number] DATE: October 21, 2023 IDENTIFYING INFORMATION: Irvin is a 33 year old female with a history of bipolar and anxiety. This visit is being conducted using HIPPA compliant telecommunication system permitting interactive audio and video Proper identity has been estbablished and consent to treat is confirmed. My chart format utilized I have communicated my name and active licensure. The patient's identity and physical location were verified at the time of this visit. Either the patient or their legal agency service representative has been informed of the risks and benefits of Medicine -- and alternatives to Mental health disorders-- treatment through a remote evaluation and consents to proceed with the evaluation remotely. CHIEF COMPLAINT: Patient presents with: Bipolar Disorder Anxiety INTERIM HISTORY: The patient was last seen 10/03/23 at which time celexa was stopped to assess charlene/hypomania, and all other medications continued. She began messaging 10/08/23 with reports of increased depression , tearfulness as well as having had a panic attack. Vraylar was increased at that time. On 10/10/23 she reported trouble sleeping, was waking multiple times. She notes more stable mood and consistent sleep. No panic. Completing self care. Less impulsive, denies excessive spending. Admits to occasional urges to be impulsive, but spoke of tactics learned in therapy that help. Things are calmer at work d/t the person she is able to put into practice the mindfulness techniques she is learning in group. She has plans to continue with individual counseling. She likes the reinforcement of tools learned as well as being able to discuss parenting concerns. She feels more relaxed with her kids. Her daughter has started back to school and she admits this eases her anxiety and stress. No panic attacks or outbursts. I am calmer with them. She is getting to work on time and completing tasks. She is more helpful around the house and admits her helps too. No anger or irritability. Occasionally tearful, but not like it was. I am more in control. Denies SI/HI/ and A/V H. No concern of paranoia, delusions, or psychosis. The patient does not appear to be responding to internal or external stimuli. Sleep has improved, generally wakes x 1 to void. Can get back to sleep easily. She falls asleep quickly and does not feel lethargic in the mornings. More consistent hours. She spoke of going to the [employer] [facility] with her bonus parents Jac and Beba. They are very supportive of her and her kids. ROS Substance Use History: No change-confirmed 09/23/23 appt. Alcohol: Social drinker Tobacco: Used to vape Marijuana: Never Illegal drug Use: Never Medication Review: Lamictal 100mg qhs Vraylar to 4.5 mg daily Buspar 10mg tid Trazodone 100mg nightly PDMP: 270-Adderall XR 30mg daily-last fill 06/09/23, Adderall XR 15mg #30-05/21/23 Phentermine #30-11/26/22 Previous Medication Trials: Adderall xr started 06/10, Abilify 15mg 02/07-ineffective, lamictal (09/08-06/10)Ineffective, Seroquel 100mg (05/09), Zoloft-becam ineffective overtime, Effexor-bugs crawling on me. Latuda-more manic, Hospitalizations: Never--not admitted. 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 Therapy: [facility] RATING SCALES: PHQ-9 PHQ-9 Score: 5 (10/14/2023 7:06 PM) (0-4) minimal depression, (5-9) mild depression, (10-14) moderate depression, (15-19) moderately severe depression, (20-27) severe depression SHIRLENE-7 SHIRLENE-7 Total Score: 5 (10/14/2023 7:07 PM) (0-4) minimal anxiety, (5-9) mild anxiety, (10-14) moderate anxiety, (15-21) severe anxiety Depression Screenin10/02/2023 10/14/2023 PHQ-9 All Questions Little interest or pleasure in doing things 2 1 Feeling down, depressed, or hopeless 0 1 Trouble falling or staying asleep, or sleeping too much 0 1 Feeling tired or having little energy 0 2 Poor appetite or overeating 0 0 Feeling bad about yourself - or that you are a failure or have let yourself or your family down 2 0 Trouble concentrating on things, such as reading the newspaper or watching television 2 0 Moving or speaking so slowly that other people could have noticed. Or the opposite - being so fidgety or restless that you have been moving around a lot more than usual 0 0 Thoughts that you would be better off , or of hurting yourself in some way 0 0 PHQ-9 Score 6 5 (0-4) Minimal Depression (5-9) Mild Depression (10-14) Moderate Depression (15-19) Moderately severe Depression (20-27) Severe Depression SHIRLENE-7 Screenin10/02/2023 10/14/2023 SHIRLENE-7 All Questions Feeling nervous, anxious, or on edge More than half the days Several days Not being able to stop or control worrying More than half the days Several days Worrying too much about different things More than half the days Several days Trouble relaxing Nearly Everyday Several days Being so restless that it is hard to sit still Not at all Not at all Becoming easily annoyed or irritable Nearly Everyday Several days Feeling afraid, as if something awful might happen Not at all Not at all SHIRLENE-7 Score 12 5 (0-5) mild anxiety (6-10) moderate anxiety (11-15) Moderately severe anxiety (16-21) Severe anxiety [place] SUICIDE SEVERITY RATING SCALE 1.) Wish to be : Have you wished you were or wished you could go to sleep and not wake up? NO 2.) Suicidal Thoughts: Have you actually had any thoughts of killing yourself? NO 6.) Suicide Behavior Question: Have you ever done anything, started to do anything, or prepared to do anything to end your life?NO RISK LEVEL RISK/PROTECTIVE FACTOR SUICIDALITY POSSIBLE INTERVENTIONS High Psychiatric disorders with severe symptoms, or acute precipitating event; protective factors not relevant Potentially lethal suicide attempt or persistent ideation with strong intent or suicide rehearsal Admission generally indicated unless a significant change reduces risk. Suicide precautions Moderate Multiple risk factors, few protective factors Suicidal ideation with plan, but no intent or behavior Admission may be necessary depending on risk factors. Develop crisis plan. Give emergency/crisis numbers Low Modifiable risk factors, strong protective factors Thoughts of , no plan, intent or behavior Outpatient referral, symptom reduction. Give emergency/crisis numbers Risk level: mild Current Outpatient Medications on File Prior to Visit Medication Sig montelukast (SINGULAIR) 10 mg tablet take 1 tablet by mouth every day cariprazine (VRAYLAR) 4.5 mg capsule Take 1 capsule by mouth once daily. traZODone (DESYREL) 50 mg tablet Take 1 tablet by mouth daily at bedtime. lamoTRIgine (LAMICTAL) 100 mg tablet TAKE 1 TABLET BY MOUTH EVERYDAY AT BEDTIME busPIRone (BUSPAR) 10 mg tablet Take 1 tablet by mouth three times a day. citalopram hydrobromide (CELEXA) 10 mg tablet Take 1 tablet by mouth once daily. fluticasone-salmeterol (ADVAIR, WIXELA) 250-50 mcg/dose inhaler INHALE 1 PUFF INSTRUCTED TWO TIMES A DAY. budesonide (PULMICORT) 0.5 mg/2 mL nebulizer solution USE 2 ML VIA NEBULIZER EVERY 12 HOURS. INHALE OVER 5-15 MINUTES blood sugar diagnostic (BLOOD GLUCOSE TEST) test strip Use as instructed to check blood glucose level one time daily predniSONE (DELTASONE) 20 mg tablet 2 a day for 3 days (Patient not taking: Reported on 08/06/2023) fluticasone (FLONASE) 50 mcg/actuation nasal spray Use 1 [place] in each nostril once daily. (Patient not taking: Reported on 08/06/2023) fluconazole (DIFLUCAN) 100 mg tablet Take 1 tablet by mouth once daily. (Patient not taking: Reported on 08/06/2023) albuterol HFA (PROVENTIL HFA, VENTOLIN HFA) 90 mcg/actuation inhaler Inhale 2 Puffs as instructed every 4 hours as needed for wheezing/shortness of breath. (Patient not taking: Reported on 08/06/2023) Blood-Glucose Sensor (DEXCOM G6 SENSOR) mallika 1 Each once daily. Blood-Glucose Transmitter (DEXCOM G6 TRANSMITTER) mallika 1 Each once daily. metFORMIN ER (GLUCOPHAGE XR) 500 mg 24 hr tablet Take 1 tablet by mouth three times a day with meals. [DISCONTINUED] levalbuterol tartrate HFA 45 mcg/actuation inhaler Inhale 2 Puffs as instructed every 4 hours as needed for wheezing/shortness of breath. Blood-Glucose Meter,Continuous (DEXCOM G6 CEMETERY VAULT INSTALLER) misc 1 Each once daily. Lancets lancets Use as instructed Blood-Glucose Meter 1 Each once daily. ergocalciferol 50,000 unit capsule (VITAMIN D2, DRISDOL) Take 1 capsule by mouth one time a week. ferrous sulfate 325 mg (65 mg iron) tablet Take 1 tablet by mouth two times a day. albuterol (PROVENTIL) 2.5 mg /3 mL (0.083 %) nebulizer solution Use 3 mL via nebulizer every 4 hours as needed for wheezing/shortness of breath. Inhale by nebulizer over 5-15 minutes. albuterol HFA (PROAIR HFA) 90 mcg/actuation inhaler Inhale 2 Puffs as instructed every 6 hours as needed for wheezing/shortness of breath. mepolizumab (NUCALA) 100 mg injection Inject 100 mg subcutaneously every 4 weeks. Nebulizer and Compressor For Neb Use as directed FEXOFENADINE HCL (LAQUITA ALLERGY ORAL) Take by mouth once daily. No current facility-administered medications on file prior to visit. Medication side effects: None Delusions: None Hallucinations: none Past family; and social history reviewed. VITAL SIGNS: LMP 07/06/2023 (Exact Date) LAB DATA: Reviewed and discussed. No data to display AIMS TESTING Negative MENTAL STATUS EXAMINATION: Appearance: appears younger stated age, ,Female, well developed, well nourished, obese, casual clothing, grooming is Within Normal Limits, Psychomotor Activity: Steady gait, good muscle tone Per patient report d/t virtual appointment. Denies recent falls. Behavior: Cooperative, engaged, Fair eye contact, Speech: spontaneous , Normal rate, Normal volume, Clear, Mood: less depression and anxiety, less labile overall Affect: appropriate to content Thought Process: circumstantial and less perseveration Thought Content: No suicidal thoughts, No homicidal ideation, intent or plan., Cognition: Orientation: Person, Place, Time and Situation Attention: Fair Concentration:Fair Language: Intact Estimated Intelligence: Average Memory: Intact Abstraction: Intact Insight: adequate Judgement: adequate RISK ASSESSMENT: Discussed the risk and benefit of the medication, client demonstrates understanding. Discussed importance of the chosen treatment plan. Client agrees with the discussed plans and efforts to keep within the stated plan. PDMP website checked and validated. All prescriptions have been APPROPRIATELY filled. No suspicious activity was identified. 10/21/2023 by Chase Bazan APRN.ACCOUNTS PAYABLE ASSOCIATE PLAN: - Continue Lamictal 100mg qhs - Continue Vraylar to 4.5mg daily - Continue Trazodone 100mg qhs - Continue Buspar 10mg tid - OARRS report reviewed. - Explained to the patient risks, benefits, side effects of the medications. Risks and side effects explained but not limited to black box warning. The patient has the capacity and gives me informed consent for the medication. - Check yourself in the ER or call 911 for help if you have any suicidal or homicidal thoughts, or if not able to take care of self at home with supports. - Recommended healthy and balanced diet. - Recommended seeing a therapist. - Labs reviewed - Discussed the hazards of tobacco smoking (use). Smoking cessation recommended and techniques and options to help patient quit were discussed. - Discussed importance of regular exercise and recommended starting or continuing a regular exercise program for good health. I spent a total of 14 minutes on the date of service which included preparing to see the patient, [id number] patient care, completing clinical documentation, obtaining and/or reviewing separately obtained history, performing a midically appropriate examination, counseling and educating the patient/family/caregiver, and independently interpreting results (not separately reported). ASSESSMENT/PLAN: 1. Bipolar II disorder (HCC) - ICD9: 296.89, ICD10: F31.81 (primary diagnosis) - CARIPRAZINE 4.5 MG CAPSULE - LAMOTRIGINE 100 MG TABLET 2. Generalized anxiety disorder - ICD9: 300.02, ICD10: F41.1 - BUSPIRONE 10 MG TABLET - TRAZODONE 100 MG TABLET Patient understands and agrees with the treatment plan: Yes Return in about 6 weeks (around 12/03/2023) for @3pm virtual. Chase Bazan APRN.SHEN documented in this encounter [facility] 10-21-[address] Zuniga, She did cancel for September but she was seen virtual by you on 04/24/2023, would this suffice? Thank you Chad Gore [facility] 10-21-2023 Telephone encounter Note Images from the original note were not included. Robson Zuniga MD Busta, Lisbeth; [facility] hour ago (11:55 AM) Happy to discuss at next appt. I dont think she made it for last appt. [facility] 10-21-2023 Telephone encounter Note Type of form: [employer] Form received via fax When form is completed, Fax form to Form has been faxed to [facility] office for completion for Dr. Zuniga inbox. Chad Gore [facility] 10-16-2023 Miscellaneous Notes New order: Increase trazodone 50mg to 2 tablets at bedtime. Should have enough to get to appointment on 10/21/23. PAtient called and stated she is still having issues sleeping, even with the 50mg Trazodone. She states she can fall asleep but can't stay asleep. Josefina Buchanan documented in this encounter [facility] 10-16-2023 Telephone encounter Note New order: Increase trazodone 50mg to 2 tablets at bedtime. Should have enough to get to appointment on 10/21/23. [facility] 10-16-2023 Telephone encounter Note PAtient called and stated she is still having issues sleeping, even with the 50mg Trazodone. She states she can fall asleep but can't stay asleep. Josefina Buchanan [facility] 10-08-2023 Telephone encounter Note Increase vraylar to 4.5 mg daily. [facility] 10-08-2023 Miscellaneous Notes Increase vraylar to 4.5 mg daily. documented in this encounter [facility] 10-06-2023 Telephone encounter Note Patient states vomited once last night and has been nauseated and dry heaving since. Concerned about her blood sugars. She is able to tolerate small amounts and fluids. I did advise her to continue to eat small, frequent amount of food as tolerated and monitor blood sugar. Denies having any symptoms. Did advise to contact senior engineering manager since they are managing her and the medication. If unable to tolerate food or blood sugar dropping, I advised patient to call office back or senior engineering manager's office or ED. Patient states sugars usually run 90-110 and currently 109. Reason for Disposition Unexplained nausea Answer Assessment - Initial Assessment Questions 1. NAUSEA SEVERITY: How bad is the nausea? (e.g., mild, moderate, severe; dehydration, weight loss) - MILD: loss of appetite without change in eating habits - MODERATE: decreased oral intake without significant weight loss, dehydration, or malnutrition - SEVERE: inadequate caloric or fluid intake, significant weight loss, symptoms of dehydration Moderate 2. ONSET: When did the nausea begin? Started last night 3. VOMITING: Any vomiting? If Yes, ask: How many times today? Vomited once last night 4. RECURRENT SYMPTOM: Denies 5. CAUSE: Not sure 6. : Is there any chance you are ? (e.g., unprotected intercourse, missed control pill, broken condom) Denies- has tubes removed Protocols used: [id number] [facility] 10-06-2023 Miscellaneous Notes Patient states vomited once last night and has been nauseated and dry heaving since. Concerned about her blood sugars. She is able to tolerate small amounts and fluids. I did advise her to continue to eat small, frequent amount of food as tolerated and monitor blood sugar. Denies having any symptoms. Did advise to contact senior engineering manager since they are managing her and the medication. If unable to tolerate food or blood sugar dropping, I advised patient to call office back or senior engineering manager's office or ED. Patient states sugars usually run 90-110 and currently 109. Reason for Disposition Unexplained nausea Answer Assessment - Initial Assessment Questions 1. NAUSEA SEVERITY: How bad is the nausea? (e.g., mild, moderate, severe; dehydration, weight loss) - MILD: loss of appetite without change in eating habits - MODERATE: decreased oral intake without significant weight loss, dehydration, or malnutrition - SEVERE: inadequate caloric or fluid intake, significant weight loss, symptoms of dehydration Moderate 2. ONSET: When did the nausea begin? Started last night 3. VOMITING: Any vomiting? If Yes, ask: How many times today? Vomited once last night 4. RECURRENT SYMPTOM: Denies 5. CAUSE: Not sure 6. : Is there any chance you are ? (e.g., unprotected intercourse, missed control pill, broken condom) Denies- has tubes removed Protocols used: [id number] documented in this encounter [facility] 10-03-2023 Note HNO ID: [id number] Author: CHASE BAZAN APRN.ACCOUNTS PAYABLE ASSOCIATE Service: ? Author Type: Nurse Practitioner Type: Progress Notes Filed: 10/03/2023 10:12 Note Text: [facility] PROGRESS NOTE PATIENT: Irvin Kline MRD: [id number] DATE: October 03, 2023 IDENTIFYING INFORMATION: Irvin is a 33 year old female with a history of bipolar disorder, anxiety and self reported ADHD (treated by pcp). This visit is being conducted using HIPPA compliant telecommunication system permitting interactive audio and video Proper identity has been estbablished and consent to treat is confirmed. My chart format utilized I have communicated my name and active licensure. The patient's identity and physical location were verified at the time of this visit. Either the patient or their legal agency service representative has been informed of the risks and benefits of Medicine -- and alternatives to Mental health disorders-- treatment through a remote evaluation and consents to proceed with the evaluation remotely. CHIEF COMPLAINT: Patient presents with: Bipolar Disorder Anxiety ADD/ADHD INTERIM HISTORY: The patient was last seen 09/23/23 at which time vraylar was increased. She denies side effects, none suspected. Improved mood stability until last week. I blew $100 on things we didn't need. I bought lunch even though I had packed a lunch. I bough new headphones and something for camping that we didn't need. She denies it was all at once. No other instances of impulsive behavior. She is not gambling or being promiscuous. She is not having difficulty at work. She spoke of a time of having a disagreement with her boss, but I just let him keep talking. It wasn't worth an argument. She states she and her are getting along well. She spoke of spending time with her kids going for walks, bike rides, and going to the park. She is not isolating or having tearful times. Some irritability but denies behaviors. I was having major manic issues last week. I spent over $100. Not all at one time, but had impulsive buys for lunch, headphones, and some camping gear that was not needed. She did have self control that had occurred when she and her boss had a disagreement. Much discussion/education regarding impulse control vs charlene/hypomania. She smiles and acknowledges she is in the moment and acknowledges poor money spending, but does not feel she has the will power to not follow through. She has regret/remorse during and after the purchase. Unable to identify why items that could be returned are not. She admits these decisions are more concerted at times, but feels her mood is affected greatly with situations. Buying things makes me happy. Those behaviors are abrupt but denies quick mood changes, irritability, behaviors, or being short with the kids or . No times of putting herself in harms way. She is getting work done, getting to work on time. She is getting along well with coworkers. Denies significant lows, no tearful times or becoming angry. She is completing self care and caring for her family. She admits she is approaching/calling her friend in [place] less frequently. Denies SI/HI/ and A/V H. No concern of paranoia, delusions, or psychosis. The patient does not appear to be responding to internal or external stimuli. ROS Substance Use History: No change-confirmed 09/23/23 appt. Alcohol: Social drinker Tobacco: Used to vape Marijuana: Never Illegal drug Use: Never Medication Review: Celexa 10mg daily Lamictal 100mg qhs Trazodone 50mg qhs Buspar 10mg tid Vraylar 3mg daily Reviewed recent VS--increasing BP and HR Recent increase of Asthma issues PDMP: 270-Adderall XR 30mg daily-last fill 06/09/23, Adderall XR 15mg #30-05/21/23 Phentermine #30-11/26/22 Previous Medication Trials: Adderall xr started 06/10, Abilify 15mg 02/07-ineffective, lamictal (09/08-06/10)Ineffective, Seroquel 100mg (05/09), Zoloft-becam ineffective overtime, Effexor-bugs crawling on me. Latuda-more manic, Hospitalizations: Never--not admitted. 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 Therapy: none RATING SCALES: PHQ-9 PHQ-9 Score: 6 (10/02/2023 3:49 PM) (0-4) minimal depression, (5-9) mild depression, (10-14) moderate depression, (15-19) moderately severe depression, (20-27) severe depression SHIRLENE-7 SHIRLENE-7 Total Score: 12 (10/02/2023 3:50 PM) (0-4) minimal anxiety, (5-9) mild anxiety, (10-14) moderate anxiety, (15-21) severe anxiety Depression Screenin09/23/2023 10/02/2023 PHQ-9 All Questions Little interest or pleasure in doing things 1 2 Feeling down, depressed, or hopeless 1 0 Trouble falling or staying asleep, or sleeping too much 1 (more content not included)... [facility] 10-03-2023 History of Presen t illness Narrative Images from the original note were not included. [facility] PROGRESS NOTE PATIENT: Irvin Kline MRD: [id number] DATE: October 03, 2023 IDENTIFYING INFORMATION: Irvin is a 33 year old female with a history of bipolar disorder, anxiety and self reported ADHD (treated by pcp). This visit is being conducted using HIPPA compliant telecommunication system permitting interactive audio and video Proper identity has been estbablished and consent to treat is confirmed. My chart format utilized I have communicated my name and active licensure. The patient's identity and physical location were verified at the time of this visit. Either the patient or their legal agency service representative has been informed of the risks and benefits of Medicine -- and alternatives to Mental health disorders-- treatment through a remote evaluation and consents to proceed with the evaluation remotely. CHIEF COMPLAINT: Patient presents with: Bipolar Disorder Anxiety ADD/ADHD INTERIM HISTORY: The patient was last seen 09/23/23 at which time vraylar was increased. She denies side effects, none suspected. Improved mood stability until last week. I blew $100 on things we didn't need. I bought lunch even though I had packed a lunch. I bough new headphones and something for camping that we didn't need. She denies it was all at once. No other instances of impulsive behavior. She is not gambling or being promiscuous. She is not having difficulty at work. She spoke of a time of having a disagreement with her boss, but I just let him keep talking. It wasn't worth an argument. She states she and her are getting along well. She spoke of spending time with her kids going for walks, bike rides, and going to the park. She is not isolating or having tearful times. Some irritability but denies behaviors. I was having major manic issues last week. I spent over $100. Not all at one time, but had impulsive buys for lunch, headphones, and some camping gear that was not needed. She did have self control that had occurred when she and her boss had a disagreement. Much discussion/education regarding impulse control vs charlene/hypomania. She smiles and acknowledges she is in the moment and acknowledges poor money spending, but does not feel she has the will power to not follow through. She has regret/remorse during and after the purchase. Unable to identify why items that could be returned are not. She admits these decisions are more concerted at times, but feels her mood is affected greatly with situations. Buying things makes me happy. Those behaviors are abrupt but denies quick mood changes, irritability, behaviors, or being short with the kids or . No times of putting herself in harms way. She is getting work done, getting to work on time. She is getting along well with coworkers. Denies significant lows, no tearful times or becoming angry. She is completing self care and caring for her family. She admits she is approaching/calling her friend in [place] less frequently. Denies SI/HI/ and A/V H. No concern of paranoia, delusions, or psychosis. The patient does not appear to be responding to internal or external stimuli. ROS Substance Use History: No change-confirmed 09/23/23 appt. Alcohol: Social drinker Tobacco: Used to vape Marijuana: Never Illegal drug Use: Never Medication Review: Celexa 10mg daily Lamictal 100mg qhs Trazodone 50mg qhs Buspar 10mg tid Vraylar 3mg daily Reviewed recent VS--increasing BP and HR Recent increase of Asthma issues PDMP: 270-Adderall XR 30mg daily-last fill 06/09/23, Adderall XR 15mg #30-05/21/23 Phentermine #30-11/26/22 Previous Medication Trials: Adderall xr started 06/10, Abilify 15mg 02/07-ineffective, lamictal (09/08-06/10)Ineffective, Seroquel 100mg (05/09), Zoloft-becam ineffective overtime, Effexor-bugs crawling on me. Latuda-more manic, Hospitalizations: Never--not admitted. 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 Therapy: none RATING SCALES: PHQ-9 PHQ-9 Score: 6 (10/02/2023 3:49 PM) (0-4) minimal depression, (5-9) mild depression, (10-14) moderate depression, (15-19) moderately severe depression, (20-27) severe depression SHIRLENE-7 SHIRLENE-7 Total Score: 12 (10/02/2023 3:50 PM) (0-4) minimal anxiety, (5-9) mild anxiety, (10-14) moderate anxiety, (15-21) severe anxiety Depression Screenin09/23/2023 10/02/2023 PHQ-9 All Questions Little interest or pleasure in doing things 1 2 Feeling down, depressed, or hopeless 1 0 Trouble falling or staying asleep, or sleeping too much 1 0 Feeling tired or having little energy 0 0 Poor appetite or overeating 0 0 Feeling bad about yourself - or that you are a failure or have let yourself or your family down 1 2 Trouble concentrating on things, such as reading the newspaper or watching television 1 2 Moving or speaking so slowly that other people could have noticed. Or the opposite - being so fidgety or restless that you have been moving around a lot more than usual 0 0 Thoughts that you would be better off , or of hurting yourself in some way 0 0 PHQ-9 Score 5 6 (0-4) Minimal Depression (5-9) Mild Depression (10-14) Moderate Depression (15-19) Moderately severe Depression (20-27) Severe Depression SHIRLENE-7 Screenin09/23/2023 10/02/2023 SHIRLENE-7 All Questions Feeling nervous, anxious, or on edge Several days More than half the days Not being able to stop or control worrying Several days More than half the days Worrying too much about different things Several days More than half the days Trouble relaxing More than half the days Nearly Everyday Being so restless that it is hard to sit still Several days Not at all Becoming easily annoyed or irritable Several days Nearly Everyday Feeling afraid, as if something awful might happen Not at all Not at all SHIRLENE-7 Score 7 12 (0-5) mild anxiety (6-10) moderate anxiety (11-15) Moderately severe anxiety (16-21) Severe anxiety [place] SUICIDE SEVERITY RATING SCALE 1.) Wish to be : Have you wished you were or wished you could go to sleep and not wake up? NO 2.) Suicidal Thoughts: Have you actually had any thoughts of killing yourself? NO 6.) Suicide Behavior Question: Have you ever done anything, started to do anything, or prepared to do anything to end your life?NO RISK LEVEL RISK/PROTECTIVE FACTOR SUICIDALITY POSSIBLE INTERVENTIONS High Psychiatric disorders with severe symptoms, or acute precipitating event; protective factors not relevant Potentially lethal suicide attempt or persistent ideation with strong intent or suicide rehearsal Admission generally indicated unless a significant change reduces risk. Suicide precautions Moderate Multiple risk factors, few protective factors Suicidal ideation with plan, but no intent or behavior Admission may be necessary depending on risk factors. Develop crisis plan. Give emergency/crisis numbers Low Modifiable risk factors, strong protective factors Thoughts of , no plan, intent or behavior Outpatient referral, symptom reduction. Give emergency/crisis numbers Risk level: mild Current Outpatient Medications on File Prior to Visit Medication Sig traZODone (DESYREL) 50 mg tablet Take 1 tablet by mouth daily at bedtime. cariprazine (VRAYLAR) 3 mg capsule Take 1 capsule by mouth once daily. lamoTRIgine (LAMICTAL) 100 mg tablet TAKE 1 TABLET BY MOUTH EVERYDAY AT BEDTIME busPIRone (BUSPAR) 10 mg tablet Take 1 tablet by mouth three times a day. citalopram hydrobromide (CELEXA) 10 mg tablet Take 1 tablet by mouth once daily. fluticasone-salmeterol (ADVAIR, WIXELA) 250-50 mcg/dose inhaler INHALE 1 PUFF INSTRUCTED TWO TIMES A DAY. budesonide (PULMICORT) 0.5 mg/2 mL nebulizer solution USE 2 ML VIA NEBULIZER EVERY 12 HOURS. INHALE OVER 5-15 MINUTES blood sugar diagnostic (BLOOD GLUCOSE TEST) test strip Use as instructed to check blood glucose level one time daily montelukast (SINGULAIR) 10 mg tablet take 1 tablet by mouth every day predniSONE (DELTASONE) 20 mg tablet 2 a day for 3 days (Patient not taking: Reported on 08/06/2023) fluticasone (FLONASE) 50 mcg/actuation nasal spray Use 1 [place] in each nostril once daily. (Patient not taking: Reported on 08/06/2023) fluconazole (DIFLUCAN) 100 mg tablet Take 1 tablet by mouth once daily. (Patient not taking: Reported on 08/06/2023) albuterol HFA (PROVENTIL HFA, VENTOLIN HFA) 90 mcg/actuation inhaler Inhale 2 Puffs as instructed every 4 hours as needed for wheezing/shortness of breath. (Patient not taking: Reported on 08/06/2023) Blood-Glucose Sensor (DEXCOM G6 SENSOR) mallika 1 Each once daily. Blood-Glucose Transmitter (DEXCOM G6 TRANSMITTER) mallika 1 Each once daily. metFORMIN ER (GLUCOPHAGE XR) 500 mg 24 hr tablet Take 1 tablet by mouth three times a day with meals. [DISCONTINUED] levalbuterol tartrate HFA 45 mcg/actuation inhaler Inhale 2 Puffs as instructed every 4 hours as needed for wheezing/shortness of breath. Blood-Glucose Meter,Continuous (DEXCOM G6 CEMETERY VAULT INSTALLER) misc 1 Each once daily. Lancets lancets Use as instructed Blood-Glucose Meter 1 Each once daily. ergocalciferol 50,000 unit capsule (VITAMIN D2, DRISDOL) Take 1 capsule by mouth one time a week. ferrous sulfate 325 mg (65 mg iron) tablet Take 1 tablet by mouth two times a day. albuterol (PROVENTIL) 2.5 mg /3 mL (0.083 %) nebulizer solution Use 3 mL via nebulizer every 4 hours as needed for wheezing/shortness of breath. Inhale by nebulizer over 5-15 minutes. albuterol HFA (PROAIR HFA) 90 mcg/actuation inhaler Inhale 2 Puffs as instructed every 6 hours as needed for wheezing/shortness of breath. mepolizumab (NUCALA) 100 mg injection Inject 100 mg subcutaneously every 4 weeks. Nebulizer and Compressor For Neb Use as directed FEXOFENADINE HCL (LAQUITA ALLERGY ORAL) Take by mouth once daily. No current facility-administered medications on file prior to visit. Medication side effects: None Delusions: None Hallucinations: none Past family; and social history reviewed. VITAL SIGNS: LMP 07/06/2023 (Exact Date) LAB DATA: Reviewed and discussed. No data to display AIMS TESTING Negative MENTAL STATUS EXAMINATION: Appearance: appears younger stated age, ,Female, well developed, well nourished, obese, casual clothing, grooming is Within Normal Limits, Psychomotor Activity: Steady gait, good muscle tone Per patient report d/t virtual appointment. Denies recent falls. Behavior: Cooperative, appears relaxed, Fair eye contact, Speech: spontaneous , Normal rate, Normal volume, Clear, ---less intense speech pattern Mood: More engaged, mild anxiety. Less labile mood. Less depression Affect: appropriate to content Thought Process: circumstantial and less perseveration Thought Content: Thoughts of , but not suicide., No homicidal ideation, intent or plan., Ruminations: about her perceived manic episodes. Cognition: Orientation: Person, Place, Time and Situation Attention: Fair Concentration:Fair Language: Intact Estimated Intelligence: Average Memory: Intact Abstraction: Intact Insight: adequate Judgement: adequate RISK ASSESSMENT: Discussed the risk and benefit of the medication, client demonstrates understanding. Discussed importance of the chosen treatment plan. Client agrees with the discussed plans and efforts to keep within the stated plan. PDMP website checked and validated. All prescriptions have been APPROPRIATELY filled. No suspicious activity was identified. 10/03/2023 by Chase Bazan APRN.ACCOUNTS PAYABLE ASSOCIATE PLAN: - Stop Celexa - Continue Lamictal 100mg qhs - Continue Vraylar to 3mg daily - Continue Trazodone 50mg qhs - Continue Buspar 10mg tid - OARRS report reviewed. - Explained to the patient risks, benefits, side effects of the medications. Risks and side effects explained but not limited to black box warning. The patient has the capacity and gives me informed consent for the medication. - Check yourself in the ER or call 911 for help if you have any suicidal or homicidal thoughts, or if not able to take care of self at home with supports. - Recommended healthy and balanced diet. - Recommended seeing a therapist. - Labs reviewed - Discussed the hazards of tobacco smoking (use). Smoking cessation recommended and techniques and options to help patient quit were discussed. - Discussed importance of regular exercise and recommended starting or continuing a regular exercise program for good health. I spent a total of 14 minutes on the date of service which included preparing to see the patient, [id number] patient care, completing clinical documentation, obtaining and/or reviewing separately obtained history, performing a midically appropriate examination, counseling and educating the patient/family/caregiver, and independently interpreting results (not separately reported). ASSESSMENT/PLAN: 1. Bipolar II disorder (HCC) - ICD9: 296.89, ICD10: F31.81 (primary diagnosis) 2. Generalized anxiety disorder - ICD9: 300.02, ICD10: F41.1 3. Major depressive disorder, recurrent episode, moderate (HCC) - ICD9: 296.32, ICD10: F33.1 Patient understands and agrees with the treatment plan: Yes Return in about 18 days (around 10/21/2023) for @2pm. Chase Bazan APRN.ACCOUNTS PAYABLE ASSOCIATE documented in this encounter [facility] 09-25-2023 Telephone encounter Note Called and spoke with patient. Gave her the message below. Patient verbalized an understanding. Misty Martínez RN September 25, 2023 1:53 PM [facility] 09-25-2023 Miscellaneous Notes Called and spoke with patient. Gave her the message below. Patient verbalized an understanding. Misty Martínez RN September 25, 2023 1:53 PM Please ask her to eat complex starches only, and small frequent meals. Any history of gastric surgery? Will need to see dietitian for nutrition advise. Thanks, Sabina Dueñas MD, MPH Images from the original note were not included. Called and spoke with patient. Patient has a history of Reactive Hypoglycemia. She states that today she ate a slice of pizza and had some water and soon after her blood sugars dropped. She states that she wears a CGM (see summary) and noticed she was having a low, was symptomatic as well, lightheaded, sweating, etc. I advised patient to check her sugar with a fingerstick and she said she did and it was only about a 10-15 point difference between the two. Patient was concerned about staying at work feeling this way, I advised patient that if she is safe to drive home ie not low, symptomatic, then I feel it would be best for her to go home for the afternoon so that she can rest and have better access to care if needed. Patient verbalized an understanding. Confirmed with patient that she is taking metformin er 500 mg 1 tablet by mouth three times daily with meals. States she only took one dose today when she ate. Please review and advise. Thank you. Misty Martínez RN September 25, 2023 12:37 PM Irvin is calling Dylan Topete MD today with concern regarding extreme fluctuation of blood glucose levels with symptoms of lightheadedness, sweating, etc. Not sure if she stay at work or go home. She relays her BS were low last night and now high. Patient has been identified by name and birthdate. Duration of symptoms: N/A Person calling: self Call patient at: on cell [phone] (home) [phone] (cell) Was an appointment scheduled: No Closing statement: Symptom Call: Thank you for calling [facility], your call is very important. A nurse will call in approximately 2-4 hours during business hours. If this is an emergency, please contact 911. Segundo Coppola documented in this encounter [facility] 09-25-2023 Telephone encounter Note Please ask her to eat complex starches only, and small frequent meals. Any history of gastric surgery? Will need to see dietitian for nutrition advise. Thanks, Sabina Dueñas MD, MPH [facility] Work Phone: 09-25-2023 Telephone encounter Note Images from the original note were not included. Called and spoke with patient. Patient has a history of Reactive Hypoglycemia. She states that today she ate a slice of pizza and had some water and soon after her blood sugars dropped. She states that she wears a CGM (see summary) and noticed she was having a low, was symptomatic as well, lightheaded, sweating, etc. I advised patient to check her sugar with a fingerstick and she said she did and it was only about a 10-15 point difference between the two. Patient was concerned about staying at work feeling this way, I advised patient that if she is safe to drive home ie not low, symptomatic, then I feel it would be best for her to go home for the afternoon so that she can rest and have better access to care if needed. Patient verbalized an understanding. Confirmed with patient that she is taking metformin er 500 mg 1 tablet by mouth three times daily with meals. States she only took one dose today when she ate. Please review and advise. Thank you. Misty Martínez RN September 25, 2023 12:37 PM [facility] 09-25-2023 Telephone encounter Note Irvin is calling Dylan Topete MD today with concern regarding extreme fluctuation of blood glucose levels with symptoms of lightheadedness, sweating, etc. Not sure if she stay at work or go home. She relays her BS were low last night and now high. Patient has been identified by name and birthdate. Duration of symptoms: N/A Person calling: self Call patient at: on cell [phone] (home) [phone] (cell) Was an appointment scheduled: No Closing statement: Symptom Call: Thank you for calling [facility], your call is very important. A nurse will call in approximately 2-4 hours during business hours. If this is an emergency, please contact 911. Segundo Coppola T [facility] 09-25-2023 Telephone encounter Note 90 day supply for insurance Pharmacy faxed requesting the following refill: Refill(s) Requested: Requested Prescriptions Pending Prescriptions Disp Refills traZODone (DESYREL) 50 mg tablet 90 tablet 1 Sig: Take 1 tablet by mouth daily at bedtime. ALLERGIES Allergen Reactions Rocephin [Ceftriaxo* Anaphylaxis per pt mother was 3yo (home) [phone] (cell) Last Office Visit Date: Visit date not found Last Distance Health Visit: Visit date not found Future Appointment: Visit date not found The patients preferred pharmacy has been captured for this encounter? yes Request is for script(s) to be escript to pharmacy. Specialty Problems Psych Problems Depressive disorder Josefina Buchanan September 25, 2023 10:34 AM [facility] 09-25-2023 Miscellaneous Notes 90 day supply for insurance Pharmacy faxed requesting the following refill: Refill(s) Requested: Requested Prescriptions Pending Prescriptions Disp Refills traZODone (DESYREL) 50 mg tablet 90 tablet 1 Sig: Take 1 tablet by mouth daily at bedtime. ALLERGIES Allergen Reactions Rocephin [Ceftriaxo* Anaphylaxis per pt mother was 3yo (home) [phone] (cell) Last Office Visit Date: Visit date not found Last Distance Health Visit: Visit date not found Future Appointment: Visit date not found The patients preferred pharmacy has been captured for this encounter? yes Request is for script(s) to be escript to pharmacy. Specialty Problems Psych Problems Depressive disorder Josefina Buchanan September 25, 2023 10:34 AM documented in this encounter [facility] 09-23-2023 Note HNO ID: [id number] Author: CHASE BAZAN APRN.ACCOUNTS PAYABLE ASSOCIATE Service: ? Author Type: Nurse Practitioner Type: Progress Notes Filed: 09/23/2023 16:28 Note Text: [facility] PROGRESS NOTE PATIENT: Irvin Kline MRD: [id number] DATE: September 23, 2023 IDENTIFYING INFORMATION: Irvin is a 33 year old female with a history of bipolar disorder, anxiety, and self reported ADHD. This visit is being conducted using HIPPA compliant telecommunication system permitting interactive audio and video Proper identity has been estbablished and consent to treat is confirmed. My chart format utilized I have communicated my name and active licensure. The patient's identity and physical location were verified at the time of this visit. Either the patient or their legal agency service representative has been informed of the risks and benefits of Medicine -- and alternatives to Mental health disorders-- treatment through a remote evaluation and consents to proceed with the evaluation remotely. CHIEF COMPLAINT: Patient presents with: Bipolar Disorder Anxiety INTERIM HISTORY: The patient was last seen 09/09/23 at which time latuda was tapered, vraylar started and all other medications were to be continued without change. She has [facility]. She is working on techniques to manage episodes and is not as hard to do. She continues to have repetitive, negative thoughts but is using techniques to avoid falling into it. She is working with mindfulness and self soothing. I have trouble with self soothing. She is able to acknowledge she needs to work on this to avoid becoming to dependent on her friend Jac and his . She denies there being any discussion, but is aware this is becoming a problem. She notes ongoing support by her . She states they are getting along well. She is more engaged with her kids. Spending time fishing with them. She is completing house chores, but admits still procrastinates. Has more motivation and desire to have things more organized at home. She is completing self care. She has some urges to cry, felt emotional during a song on the radio. I don't know where it is coming from. She does not feel sad every day, but admits to some down days. Denies SI/HI/ and A/V H. No concern of paranoia, delusions, or psychosis. The patient does not appear to be responding to internal or external stimuli. She is not lingering in those thoughts as she had. I am working on positive self talk. She is trying to avoid the self loathing thoughts of worthlessness. She is not hopeless or helpless. I can do this. She continues to have significant urges to spend money, less since stopping latuda. No side effects to vraylar. She is not feeling restless or having other impulsive or reckless behaviors. She states she is getting along well with others at work. Less ruminating about negativity. She notes a friend commented on her observation that I have the old Irvin back. She is averaging 8 hours of consecutive sleep. Feels rested. ROS Substance Use History: No change-confirmed 09/23/23 appt. Alcohol: Social drinker Tobacco: Used to vape Marijuana: Never Illegal drug Use: Never Medication Review: Celexa 10mg daily Lamictal 100mg qhs Trazodone 50mg qhs Buspar 10mg tid Vraylar -1.5mg daily Reviewed recent VS--increasing BP and HR Recent increase of Asthma issues PDMP: 270-Adderall XR 30mg daily-last fill 06/09/23, Adderall XR 15mg #30-05/21/23 Phentermine #30-11/26/22 Previous Medication Trials: Adderall xr started 06/10, Abilify 15mg 02/07-ineffective, lamictal (09/08-06/10)Ineffective, Seroquel 100mg (05/09), Zoloft-becam ineffective overtime, Effexor-bugs crawling on me. Latuda-more manic, Hospitalizations: Never--not admitted. 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 Therapy: none RATING SCALES: PHQ-9 PHQ-9 Score: 5 (09/23/2023 3:51 PM) (0-4) minimal depression, (5-9) mild depression, (10-14) moderate depression, (15-19) moderately severe depression, (20-27) severe depression SHIRLENE-7 SHIRLENE-7 Total Score: 7 (09/23/2023 3:51 PM) (0-4) minimal anxiety, (5-9) mild anxiety, (10-14) moderate anxiety, (15-21) severe anxiety Depression Screenin09/09/2023 09/23/2023 PHQ-9 All Questions Little interest or pleasure in doing things 1 1 Feeling down, depressed, or hopeless 1 1 Trouble falling or staying asleep, or sleeping too much 0 1 Feeling tired or having little energy 1 0 Poor appetite or overeating 0 0 Feeling bad about yourself - or that you are a failure or have let yourself or your family down 1 1 Trouble concentrating on things, such as reading the newspaper or watching television 0 (more content not included)... [facility] 09-23-2023 History of Presen t illness Narrative Images from the original note were not included. [facility] PROGRESS NOTE PATIENT: Irvin Kline MRD: [id number] DATE: September 23, 2023 IDENTIFYING INFORMATION: Irvin is a 33 year old female with a history of bipolar disorder, anxiety, and self reported ADHD. This visit is being conducted using HIPPA compliant telecommunication system permitting interactive audio and video Proper identity has been estbablished and consent to treat is confirmed. My chart format utilized I have communicated my name and active licensure. The patient's identity and physical location were verified at the time of this visit. Either the patient or their legal agency service representative has been informed of the risks and benefits of Medicine -- and alternatives to Mental health disorders-- treatment through a remote evaluation and consents to proceed with the evaluation remotely. CHIEF COMPLAINT: Patient presents with: Bipolar Disorder Anxiety INTERIM HISTORY: The patient was last seen 09/09/23 at which time latuda was tapered, vraylar started and all other medications were to be continued without change. She has [facility] with [facility]. She is working on techniques to manage episodes and is not as hard to do. She continues to have repetitive, negative thoughts but is using techniques to avoid falling into it. She is working with mindfulness and self soothing. I have trouble with self soothing. She is able to acknowledge she needs to work on this to avoid becoming to dependent on her friend Jac and his . She denies there being any discussion, but is aware this is becoming a problem. She notes ongoing support by her . She states they are getting along well. She is more engaged with her kids. Spending time fishing with them. She is completing house chores, but admits still procrastinates. Has more motivation and desire to have things more organized at home. She is completing self care. She has some urges to cry, felt emotional during a song on the radio. I don't know where it is coming from. She does not feel sad every day, but admits to some down days. Denies SI/HI/ and A/V H. No concern of paranoia, delusions, or psychosis. The patient does not appear to be responding to internal or external stimuli. She is not lingering in those thoughts as she had. I am working on positive self talk. She is trying to avoid the self loathing thoughts of worthlessness. She is not hopeless or helpless. I can do this. She continues to have significant urges to spend money, less since stopping latuda. No side effects to vraylar. She is not feeling restless or having other impulsive or reckless behaviors. She states she is getting along well with others at work. Less ruminating about negativity. She notes a friend commented on her observation that I have the old Irvin back. She is averaging 8 hours of consecutive sleep. Feels rested. ROS Substance Use History: No change-confirmed 09/23/23 appt. Alcohol: Social drinker Tobacco: Used to vape Marijuana: Never Illegal drug Use: Never Medication Review: Celexa 10mg daily Lamictal 100mg qhs Trazodone 50mg qhs Buspar 10mg tid Vraylar -1.5mg daily Reviewed recent VS--increasing BP and HR Recent increase of Asthma issues PDMP: 270-Adderall XR 30mg daily-last fill 06/09/23, Adderall XR 15mg #30-05/21/23 Phentermine #30-11/26/22 Previous Medication Trials: Adderall xr started 06/10, Abilify 15mg 02/07-ineffective, lamictal (09/08-06/10)Ineffective, Seroquel 100mg (05/09), Zoloft-becam ineffective overtime, Effexor-bugs crawling on me. Latuda-more manic, Hospitalizations: Never--not admitted. 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 Therapy: none RATING SCALES: PHQ-9 PHQ-9 Score: 5 (09/23/2023 3:51 PM) (0-4) minimal depression, (5-9) mild depression, (10-14) moderate depression, (15-19) moderately severe depression, (20-27) severe depression SHIRLENE-7 SHIRLENE-7 Total Score: 7 (09/23/2023 3:51 PM) (0-4) minimal anxiety, (5-9) mild anxiety, (10-14) moderate anxiety, (15-21) severe anxiety Depression Screenin09/09/2023 09/23/2023 PHQ-9 All Questions Little interest or pleasure in doing things 1 1 Feeling down, depressed, or hopeless 1 1 Trouble falling or staying asleep, or sleeping too much 0 1 Feeling tired or having little energy 1 0 Poor appetite or overeating 0 0 Feeling bad about yourself - or that you are a failure or have let yourself or your family down 1 1 Trouble concentrating on things, such as reading the newspaper or watching television 0 1 Moving or speaking so slowly that other people could have noticed. Or the opposite - being so fidgety or restless that you have been moving around a lot more than usual 0 0 Thoughts that you would be better off , or of hurting yourself in some way 0 0 PHQ-9 Score 4 5 (0-4) Minimal Depression (5-9) Mild Depression (10-14) Moderate Depression (15-19) Moderately severe Depression (20-27) Severe Depression SHIRLENE-7 Screenin09/09/2023 09/23/2023 SHIRLENE-7 All Questions Feeling nervous, anxious, or on edge More than half the days Several days Not being able to stop or control worrying Several days Several days Worrying too much about different things More than half the days Several days Trouble relaxing More than half the days More than half the days Being so restless that it is hard to sit still Not at all Several days Becoming easily annoyed or irritable More than half the days Several days Feeling afraid, as if something awful might happen Not at all Not at all SHIRLENE-7 Score 9 7 (0-5) mild anxiety (6-10) moderate anxiety (11-15) Moderately severe anxiety (16-21) Severe anxiety [place] SUICIDE SEVERITY RATING SCALE 1.) Wish to be : Have you wished you were or wished you could go to sleep and not wake up? NO 2.) Suicidal Thoughts: Have you actually had any thoughts of killing yourself? NO 6.) Suicide Behavior Question: Have you ever done anything, started to do anything, or prepared to do anything to end your life?NO RISK LEVEL RISK/PROTECTIVE FACTOR SUICIDALITY POSSIBLE INTERVENTIONS High Psychiatric disorders with severe symptoms, or acute precipitating event; protective factors not relevant Potentially lethal suicide attempt or persistent ideation with strong intent or suicide rehearsal Admission generally indicated unless a significant change reduces risk. Suicide precautions Moderate Multiple risk factors, few protective factors Suicidal ideation with plan, but no intent or behavior Admission may be necessary depending on risk factors. Develop crisis plan. Give emergency/crisis numbers Low Modifiable risk factors, strong protective factors Thoughts of , no plan, intent or behavior Outpatient referral, symptom reduction. Give emergency/crisis numbers Risk level: mild Current Outpatient Medications on File Prior to Visit Medication Sig traZODone (DESYREL) 50 mg tablet Take 1 tablet by mouth daily at bedtime. cariprazine (VRAYLAR) 1.5 mg capsule Take 1 capsule by mouth once daily. fluticasone-salmeterol (ADVAIR, WIXELA) 250-50 mcg/dose inhaler INHALE 1 PUFF INSTRUCTED TWO TIMES A DAY. busPIRone (BUSPAR) 10 mg tablet Take 1 tablet by mouth three times a day. citalopram (CELEXA) 10 mg tablet Take 1 tablet by mouth once daily. lurasidone (LATUDA) 80 mg tablet Take 1 tablet by mouth daily at bedtime. Take with a 350 calorie snack. lamoTRIgine (LAMICTAL) 100 mg tablet TAKE 1 TABLET BY MOUTH EVERYDAY AT BEDTIME budesonide (PULMICORT) 0.5 mg/2 mL nebulizer solution USE 2 ML VIA NEBULIZER EVERY 12 HOURS. INHALE OVER 5-15 MINUTES blood sugar diagnostic (BLOOD GLUCOSE TEST) test strip Use as instructed to check blood glucose level one time daily montelukast (SINGULAIR) 10 mg tablet take 1 tablet by mouth every day predniSONE (DELTASONE) 20 mg tablet 2 a day for 3 days (Patient not taking: Reported on 08/06/2023) fluticasone (FLONASE) 50 mcg/actuation nasal spray Use 1 [place] in each nostril once daily. (Patient not taking: Reported on 08/06/2023) fluconazole (DIFLUCAN) 100 mg tablet Take 1 tablet by mouth once daily. (Patient not taking: Reported on 08/06/2023) albuterol HFA (PROVENTIL HFA, VENTOLIN HFA) 90 mcg/actuation inhaler Inhale 2 Puffs as instructed every 4 hours as needed for wheezing/shortness of breath. (Patient not taking: Reported on 08/06/2023) Blood-Glucose Sensor (DEXCOM G6 SENSOR) mallika 1 Each once daily. Blood-Glucose Transmitter (DEXCOM G6 TRANSMITTER) malliak 1 Each once daily. metFORMIN ER (GLUCOPHAGE XR) 500 mg 24 hr tablet Take 1 tablet by mouth three times a day with meals. [DISCONTINUED] levalbuterol tartrate HFA 45 mcg/actuation inhaler Inhale 2 Puffs as instructed every 4 hours as needed for wheezing/shortness of breath. Blood-Glucose Meter,Continuous (DEXCOM G6 CEMETERY VAULT INSTALLER) misc 1 Each once daily. Lancets lancets Use as instructed Blood-Glucose Meter 1 Each once daily. ergocalciferol 50,000 unit capsule (VITAMIN D2, DRISDOL) Take 1 capsule by mouth one time a week. ferrous sulfate 325 mg (65 mg iron) tablet Take 1 tablet by mouth two times a day. albuterol (PROVENTIL) 2.5 mg /3 mL (0.083 %) nebulizer solution Use 3 mL via nebulizer every 4 hours as needed for wheezing/shortness of breath. Inhale by nebulizer over 5-15 minutes. albuterol HFA (PROAIR HFA) 90 mcg/actuation inhaler Inhale 2 Puffs as instructed every 6 hours as needed for wheezing/shortness of breath. mepolizumab (NUCALA) 100 mg injection Inject 100 mg subcutaneously every 4 weeks. Nebulizer and Compressor For Neb Use as directed FEXOFENADINE HCL (LAQUITA ALLERGY ORAL) Take by mouth once daily. No current facility-administered medications on file prior to visit. Medication side effects: None Delusions: None Hallucinations: none Past family; and social history reviewed. VITAL SIGNS: LMP 07/06/2023 (Exact Date) LAB DATA: Reviewed and discussed. No data to display AIMS TESTING NA MENTAL STATUS EXAMINATION: Appearance: appears younger stated age, ,Female, well developed, well nourished, obese, casual clothing, grooming is Within Normal Limits, Psychomotor Activity: Steady gait, good muscle tone Per patient report d/t virtual appointment. Denies recent falls. Behavior: Cooperative, appears relaxed, Fair eye contact, Speech: spontaneous , Normal rate, Normal volume, Clear, ---less intense speech pattern Mood: More engaged, mild anxiety. Less labile mood. Less depression Affect: appropriate to content Thought Process: circumstantial and less perseveration Thought Content: Thoughts of , but not suicide., No homicidal ideation, intent or plan., Ruminations: about her perceived manic episodes. Cognition: Orientation: Person, Place, Time and Situation Attention: Fair Concentration:Fair Language: Intact Estimated Intelligence: Average Memory: Intact Abstraction: Intact Insight: adequate Judgement: adequate RISK ASSESSMENT: Discussed the risk and benefit of the medication, client demonstrates understanding. Discussed importance of the chosen treatment plan. Client agrees with the discussed plans and efforts to keep within the stated plan. PDMP website checked and validated. All prescriptions have been APPROPRIATELY filled. No suspicious activity was identified. 09/23/2023 by Chase Bazan APRN.ACCOUNTS PAYABLE ASSOCIATE PLAN: - Continue Celexa to 10mg daily--consider d/c - Continue Lamictal 100mg qhs - Increase Vraylar to 3mg daily - Continue Trazodone 50mg qhs - Continue Buspar 10mg tid - OARRS report reviewed. - Explained to the patient risks, benefits, side effects of the medications. Risks and side effects explained but not limited to black box warning. The patient has the capacity and gives me informed consent for the medication. - Check yourself in the ER or call 911 for help if you have any suicidal or homicidal thoughts, or if not able to take care of self at home with supports. - Recommended healthy and balanced diet. - Recommended seeing a therapist. - Labs reviewed - Discussed the hazards of tobacco smoking (use). Smoking cessation recommended and techniques and options to help patient quit were discussed. - Discussed importance of regular exercise and recommended starting or continuing a regular exercise program for good health. I spent a total of 15 minutes on the date of service which included preparing to see the patient, [id number] patient care, completing clinical documentation, obtaining and/or reviewing separately obtained history, performing a midically appropriate examination, counseling and educating the patient/family/caregiver, and independently interpreting results (not separately reported). ASSESSMENT/PLAN: 1. Bipolar II disorder (HCC) - ICD9: 296.89, ICD10: F31.81 (primary diagnosis) - CARIPRAZINE 3 MG CAPSULE - LAMOTRIGINE 100 MG TABLET 2. Generalized anxiety disorder - ICD9: 300.02, ICD10: F41.1 - TRAZODONE 50 MG TABLET - BUSPIRONE 10 MG TABLET 3. Major depressive disorder, recurrent episode, moderate (HCC) - ICD9: 296.32, ICD10: F33.1 - TRAZODONE 50 MG TABLET - CITALOPRAM 10 MG TABLET Patient understands and agrees with the treatment plan: Yes Return in about 4 weeks (around 10/21/2023) for @2pm virtual. Chase Bazan APRN.CNP documented in this encounter [facility] 09-12-2023 Telephone encounter Note Order for nebulizer and supplies signed and faxed back to [facility]. Shu Mcfarland [facility] 09-12-2023 Miscellaneous Notes Order for nebulizer and supplies signed and faxed back to [facility]. Shu Mcfarland documented in this encounter [facility] 09-11-2023 Telephone encounter Note Confirmation of Orders signed and faxed to [facility], 2 forms. Documents sent for scanning. Chad Gore [facility] 09-11-2023 Miscellaneous Notes Confirmation of Orders signed and faxed to [facility], 2 forms. Documents sent for scanning. Chad Gore documented in this encounter [facility] 09-10-2023 Telephone encounter Note Patient MyChart message requesting the following refill: Refill(s) Requested: Requested Prescriptions Pending Prescriptions Disp Refills traZODone (DESYREL) 50 mg tablet 30 tablet 1 Sig: Take 1 tablet by mouth daily at bedtime. ALLERGIES Allergen Reactions Rocephin [Ceftriaxo* Anaphylaxis per pt mother was 3yo (home) [phone] (cell) Last Office Visit Date: Visit date not found Last Distance Health Visit: Visit date not found Future Appointment: Visit date not found The patients preferred pharmacy has been captured for this encounter? yes Request is for script(s) to be escript to pharmacy. Specialty Problems Psych Problems Depressive disorder Josefina Buchanan September 10, 2023 9:05 AM [facility] 09-10-2023 Miscellaneous Notes Patient MyChart message requesting the following refill: Refill(s) Requested: Requested Prescriptions Pending Prescriptions Disp Refills traZODone (DESYREL) 50 mg tablet 30 tablet 1 Sig: Take 1 tablet by mouth daily at bedtime. ALLERGIES Allergen Reactions Rocephin [Ceftriaxo* Anaphylaxis per pt mother was 3yo (home) [phone] (cell) Last Office Visit Date: Visit date not found Last Distance Health Visit: Visit date not found Future Appointment: Visit date not found The patients preferred pharmacy has been captured for this encounter? yes Request is for script(s) to be escript to pharmacy. Specialty Problems Psych Problems Depressive disorder Josefina Buchanan September 10, 2023 9:05 AM documented in this encounter [facility] 09-09-2023 Note HNO ID: [id number] Author: CHASE BAZAN APRN.ACCOUNTS PAYABLE ASSOCIATE Service: ? Author Type: Nurse Practitioner Type: Progress Notes Filed: 09/09/2023 16:06 Note Text: [facility] PROGRESS NOTE PATIENT: Irvin Kline MRD: [id number] DATE: September 09, 2023 IDENTIFYING INFORMATION: Irvin is a 33 year old female with a history of bipolar disorder, anxiety, and self reported ADHD. This visit is being conducted using HIPPA compliant telecommunication system permitting interactive audio and video Proper identity has been estbablished and consent to treat is confirmed. My chart format utilized I have communicated my name and active licensure. The patient's identity and physical location were verified at the time of this visit. Either the patient or their legal agency service representative has been informed of the risks and benefits of Medicine -- and alternatives to Mental health disorders-- treatment through a remote evaluation and consents to proceed with the evaluation remotely. CHIEF COMPLAINT: Patient presents with: Bipolar Disorder Anxiety INTERIM HISTORY: The patient was last seen 08/19/23 at which time celexa was to be decreased to 10mg daily, latuda increased to 80mg and lamictal, trazodone, and buspar continued. Since that appointment she left an urgent message reporting feeling worthless, poor motivation as well as manic episodes where she spends money and has poor self care. Responded to her with options of IOP and counseling that is closer to home as well as making a referral to [facility] counseling. Her appointment was moved up. She presents today, in the car with children, not driving. She did follow through with getting scheduled for an intake at [facility] to begin IOP. Her feelings of worthlessness continue. She is worried about her mom having Pre-cancerous cells found with a recent colonoscopy. She also discovered her brother will be going to [facility] for PTSD treatment as well. She feels her family does not believe she is struggling as much as she is. She had the impulse of spending money impulsively when hearing of her mom's diagnosis. I almost spent the rent money. She called her friend Bill and he helped to curtail her impulse to spend money on fast food. No other impulses reported. No risk taking or having inappropriate behaviors. She continues to be overwhelmed. Denies HI/ and A/V H. Overwhelmed and thinks of , no plan or intent. No concern of paranoia, delusions, or psychosis. The patient does not appear to be responding to internal or external stimuli. No actions that have gotten her into legal or personal problems. She did find work at [employer] in [employer]. A job she used to have in the past. She reports it is going well. She is getting to work on time and gets along well with coworkers. She appears calm and childlike in some ways. Praised for stopping her impulses and encouraged to find other ways of coping. She states she is taking care of herself, watching her diet and monitoring her sugar. Reminded that medication has limitations of its effects with behaviors. She denies racing thoughts or panic. No tearful times. Continues to have outbursts d/t frustration with her kids. I don't feel like the latuda is working. Reminded of its help with sleep, will decrease to 60mg with remaining tablets she has on hand and start vraylar. ROS Substance Use History: Alcohol: Social drinker Tobacco: Used to vape Marijuana: Never Illegal drug Use: Never Medication Review: Celexa 10mg daily Lamictal 100mg qhs Latuda 60 mg at bedtime-taking with food Trazodone 50mg qhs Buspar 10mg tid Reviewed recent VS--increasing BP and HR Recent increase of Asthma issues PDMP: 270-Adderall XR 30mg daily-last fill 06/09/23, Adderall XR 15mg #30-05/21/23 Phentermine #30-11/26/22 Previous Medication Trials: Adderall xr started 06/10, Abilify 15mg 02/07-ineffective, lamictal (09/08-06/10)Ineffective, Seroquel 100mg (05/09), Zoloft-becam ineffective overtime, Effexor-bugs crawling on me. Hospitalizations: Never--not admitted. 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 Therapy: none RATING SCALES: PHQ-9 PHQ-9 Score: 4 (09/09/2023 1:58 PM) (0-4) minimal depression, (5-9) mild depression, (10-14) moderate depression, (15-19) moderately severe depression, (20-27) severe depression SHIRLENE-7 SHIRLENE-7 Total Score: 9 (09/09/2023 1:59 PM) (0-4) minimal anxiety, (5-9) mild anxiety, (10-14) moderate anxiety, (15-21) severe anxiety Depression Screenin08/17/2023 09/09/2023 PHQ-9 All Questions Little interest or pleasure in doing things 1 1 Feeling down, depressed, or hopeless 1 1 Trouble falling or staying asleep, or sleeping too much 0 0 (more content not included)... [facility] 09-09-2023 History of Presen t illness Narrative Images from the original note were not included. [facility] PROGRESS NOTE PATIENT: Irvin Kline MRD: [id number] DATE: September 09, 2023 IDENTIFYING INFORMATION: Irvin is a 33 year old female with a history of bipolar disorder, anxiety, and self reported ADHD. This visit is being conducted using HIPPA compliant telecommunication system permitting interactive audio and video Proper identity has been estbablished and consent to treat is confirmed. My chart format utilized I have communicated my name and active licensure. The patient's identity and physical location were verified at the time of this visit. Either the patient or their legal agency service representative has been informed of the risks and benefits of Medicine -- and alternatives to Mental health disorders-- treatment through a remote evaluation and consents to proceed with the evaluation remotely. CHIEF COMPLAINT: Patient presents with: Bipolar Disorder Anxiety INTERIM HISTORY: The patient was last seen 08/19/23 at which time celexa was to be decreased to 10mg daily, latuda increased to 80mg and lamictal, trazodone, and buspar continued. Since that appointment she left an urgent message reporting feeling worthless, poor motivation as well as manic episodes where she spends money and has poor self care. Responded to her with options of IOP and counseling that is closer to home as well as making a referral to [facility] counseling. Her appointment was moved up. She presents today, in the car with children, not driving. She did follow through with getting scheduled for an intake at [facility] to begin IOP. Her feelings of worthlessness continue. She is worried about her mom having Pre-cancerous cells found with a recent colonoscopy. She also discovered her brother will be going to [facility] for PTSD treatment as well. She feels her family does not believe she is struggling as much as she is. She had the impulse of spending money impulsively when hearing of her mom's diagnosis. I almost spent the rent money. She called her friend Jac and he helped to curtail her impulse to spend money on fast food. No other impulses reported. No risk taking or having inappropriate behaviors. She continues to be overwhelmed. Denies HI/ and A/V H. Overwhelmed and thinks of , no plan or intent. No concern of paranoia, delusions, or psychosis. The patient does not appear to be responding to internal or external stimuli. No actions that have gotten her into legal or personal problems. She did find work at [employer] in [employer]. A job she used to have in the past. She reports it is going well. She is getting to work on time and gets along well with coworkers. She appears calm and childlike in some ways. Praised for stopping her impulses and encouraged to find other ways of coping. She states she is taking care of herself, watching her diet and monitoring her sugar. Reminded that medication has limitations of its effects with behaviors. She denies racing thoughts or panic. No tearful times. Continues to have outbursts d/t frustration with her kids. I don't feel like the latuda is working. Reminded of its help with sleep, will decrease to 60mg with remaining tablets she has on hand and start vraylar. ROS Substance Use History: Alcohol: Social drinker Tobacco: Used to vape Marijuana: Never Illegal drug Use: Never Medication Review: Celexa 10mg daily Lamictal 100mg qhs Latuda 60 mg at bedtime-taking with food Trazodone 50mg qhs Buspar 10mg tid Reviewed recent VS--increasing BP and HR Recent increase of Asthma issues PDMP: 270-Adderall XR 30mg daily-last fill 06/09/23, Adderall XR 15mg #30-05/21/23 Phentermine #30-11/26/22 Previous Medication Trials: Adderall xr started 06/10, Abilify 15mg 02/07-ineffective, lamictal (7/23-06/10)Ineffective, Seroquel 100mg (05/09), Zoloft-becam ineffective overtime, Effexor-bugs crawling on me. Hospitalizations: Never--not admitted. 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 Therapy: none RATING SCALES: PHQ-9 PHQ-9 Score: 4 (09/09/2023 1:58 PM) (0-4) minimal depression, (5-9) mild depression, (10-14) moderate depression, (15-19) moderately severe depression, (20-27) severe depression SHIRLENE-7 SHIRLENE-7 Total Score: 9 (09/09/2023 1:59 PM) (0-4) minimal anxiety, (5-9) mild anxiety, (10-14) moderate anxiety, (15-21) severe anxiety Depression Screenin08/17/2023 09/09/2023 PHQ-9 All Questions Little interest or pleasure in doing things 1 1 Feeling down, depressed, or hopeless 1 1 Trouble falling or staying asleep, or sleeping too much 0 0 Feeling tired or having little energy 0 1 Poor appetite or overeating 0 0 Feeling bad about yourself - or that you are a failure or have let yourself or your family down 1 1 Trouble concentrating on things, such as reading the newspaper or watching television 0 0 Moving or speaking so slowly that other people could have noticed. Or the opposite - being so fidgety or restless that you have been moving around a lot more than usual 0 0 Thoughts that you would be better off , or of hurting yourself in some way 0 0 PHQ-9 Score 3 4 (0-4) Minimal Depression (5-9) Mild Depression (10-14) Moderate Depression (15-19) Moderately severe Depression (20-27) Severe Depression SHIRLENE-7 Screenin08/17/2023 09/09/2023 SHIRLENE-7 All Questions Feeling nervous, anxious, or on edge More than half the days More than half the days Not being able to stop or control worrying Several days Several days Worrying too much about different things More than half the days More than half the days Trouble relaxing Several days More than half the days Being so restless that it is hard to sit still Several days Not at all Becoming easily annoyed or irritable Several days More than half the days Feeling afraid, as if something awful might happen Not at all Not at all SHIRLENE-7 Score 8 9 (0-5) mild anxiety (6-10) moderate anxiety (11-15) Moderately severe anxiety (16-21) Severe anxiety [place] SUICIDE SEVERITY RATING SCALE 1.) Wish to be : Have you wished you were or wished you could go to sleep and not wake up? Feels overwhelmed and thinks about . 2.) Suicidal Thoughts: Have you actually had any thoughts of killing yourself? NO 6.) Suicide Behavior Question: Have you ever done anything, started to do anything, or prepared to do anything to end your life?NO RISK LEVEL RISK/PROTECTIVE FACTOR SUICIDALITY POSSIBLE INTERVENTIONS High Psychiatric disorders with severe symptoms, or acute precipitating event; protective factors not relevant Potentially lethal suicide attempt or persistent ideation with strong intent or suicide rehearsal Admission generally indicated unless a significant change reduces risk. Suicide precautions Moderate Multiple risk factors, few protective factors Suicidal ideation with plan, but no intent or behavior Admission may be necessary depending on risk factors. Develop crisis plan. Give emergency/crisis numbers Low Modifiable risk factors, strong protective factors Thoughts of , no plan, intent or behavior Outpatient referral, symptom reduction. Give emergency/crisis numbers Risk level: mild to moderate Current Outpatient Medications on File Prior to Visit Medication Sig fluticasone-salmeterol (ADVAIR, WIXELA) 250-50 mcg/dose inhaler INHALE 1 PUFF INSTRUCTED TWO TIMES A DAY. busPIRone (BUSPAR) 10 mg tablet Take 1 tablet by mouth three times a day. citalopram (CELEXA) 10 mg tablet Take 1 tablet by mouth once daily. lurasidone (LATUDA) 80 mg tablet Take 1 tablet by mouth daily at bedtime. Take with a 350 calorie snack. lamoTRIgine (LAMICTAL) 100 mg tablet TAKE 1 TABLET BY MOUTH EVERYDAY AT BEDTIME traZODone (DESYREL) 50 mg tablet Take 1 tablet by mouth daily at bedtime. budesonide (PULMICORT) 0.5 mg/2 mL nebulizer solution USE 2 ML VIA NEBULIZER EVERY 12 HOURS. INHALE OVER 5-15 MINUTES blood sugar diagnostic (BLOOD GLUCOSE TEST) test strip Use as instructed to check blood glucose level one time daily montelukast (SINGULAIR) 10 mg tablet take 1 tablet by mouth every day predniSONE (DELTASONE) 20 mg tablet 2 a day for 3 days (Patient not taking: Reported on 08/06/2023) fluticasone (FLONASE) 50 mcg/actuation nasal spray Use 1 [place] in each nostril once daily. (Patient not taking: Reported on 08/06/2023) fluconazole (DIFLUCAN) 100 mg tablet Take 1 tablet by mouth once daily. (Patient not taking: Reported on 08/06/2023) albuterol HFA (PROVENTIL HFA, VENTOLIN HFA) 90 mcg/actuation inhaler Inhale 2 Puffs as instructed every 4 hours as needed for wheezing/shortness of breath. (Patient not taking: Reported on 08/06/2023) Blood-Glucose Sensor (DEXCOM G6 SENSOR) mallika 1 Each once daily. Blood-Glucose Transmitter (DEXCOM G6 TRANSMITTER) mallika 1 Each once daily. metFORMIN ER (GLUCOPHAGE XR) 500 mg 24 hr tablet Take 1 tablet by mouth three times a day with meals. [DISCONTINUED] levalbuterol tartrate HFA 45 mcg/actuation inhaler Inhale 2 Puffs as instructed every 4 hours as needed for wheezing/shortness of breath. Blood-Glucose Meter,Continuous (DEXCOM G6 CEMETERY VAULT INSTALLER) misc 1 Each once daily. Lancets lancets Use as instructed Blood-Glucose Meter 1 Each once daily. ergocalciferol 50,000 unit capsule (VITAMIN D2, DRISDOL) Take 1 capsule by mouth one time a week. ferrous sulfate 325 mg (65 mg iron) tablet Take 1 tablet by mouth two times a day. albuterol (PROVENTIL) 2.5 mg /3 mL (0.083 %) nebulizer solution Use 3 mL via nebulizer every 4 hours as needed for wheezing/shortness of breath. Inhale by nebulizer over 5-15 minutes. albuterol HFA (PROAIR HFA) 90 mcg/actuation inhaler Inhale 2 Puffs as instructed every 6 hours as needed for wheezing/shortness of breath. mepolizumab (NUCALA) 100 mg injection Inject 100 mg subcutaneously every 4 weeks. Nebulizer and Compressor For Neb Use as directed FEXOFENADINE HCL (LAQUITA ALLERGY ORAL) Take by mouth once daily. No current facility-administered medications on file prior to visit. Medication side effects: None Delusions: None Hallucinations: none Past family; and social history reviewed. VITAL SIGNS: LMP 07/06/2023 (Exact Date) LAB DATA: Reviewed and discussed. No data to display AIMS TESTING NA MENTAL STATUS EXAMINATION: Appearance: appears younger stated age, ,Female, well developed, well nourished, obese, casual clothing, grooming is Within Normal Limits, Psychomotor Activity: Steady gait, good muscle tone Per patient report d/t virtual appointment. Denies recent falls. Behavior: Cooperative, appears relaxed, Fair eye contact, Speech: spontaneous , Normal rate, Normal volume, Clear, ---less intense speech pattern Mood: She appears to be euthymic, mild anxiety. She reports labile mood, but denies crying, SI, and panic. Affect: appropriate to content Thought Process: circumstantial and perseveration Thought Content: Thoughts of , but not suicide., No homicidal ideation, intent or plan., Ruminations: about her perceived manic episodes. Cognition: Orientation: Person, Place, Time and Situation Attention: Fair Concentration:Fair Language: Intact Estimated Intelligence: Average Memory: Intact Abstraction: Intact Insight: adequate Judgement: adequate RISK ASSESSMENT: Discussed the risk and benefit of the medication, client demonstrates understanding. Discussed importance of the chosen treatment plan. Client agrees with the discussed plans and efforts to keep within the stated plan. PDMP website checked and validated. All prescriptions have been APPROPRIATELY filled. No suspicious activity was identified. 09/09/2023 by Chase Bazan APRN.ACCOUNTS PAYABLE ASSOCIATE PLAN: - Continue Celexa to 10mg daily - Continue Lamictal 100mg qhs - Decrease Latuda to 60 mg at bedtime-taking with food--use what she has on hand x 5 days at the start of vraylar - Start Vraylar 1.5mg daily - Continue Trazodone 50mg qhs - Continue Buspar 10mg tid - OARRS report reviewed. - Explained to the patient risks, benefits, side effects of the medications. Risks and side effects explained but not limited to black box warning. The patient has the capacity and gives me informed consent for the medication. - Check yourself in the ER or call 911 for help if you have any suicidal or homicidal thoughts, or if not able to take care of self at home with supports. - Recommended healthy and balanced diet. - Recommended seeing a therapist. - Labs reviewed - Discussed the hazards of tobacco smoking (use). Smoking cessation recommended and techniques and options to help patient quit were discussed. - Discussed importance of regular exercise and recommended starting or continuing a regular exercise program for good health. I spent a total of 15 minutes on the date of service which included preparing to see the patient, [id number] patient care, completing clinical documentation, obtaining and/or reviewing separately obtained history, performing a midically appropriate examination, counseling and educating the patient/family/caregiver, and independently interpreting results (not separately reported). ASSESSMENT/PLAN: 1. Bipolar II disorder (HCC) - ICD9: 296.89, ICD10: F31.81 (primary diagnosis) - CARIPRAZINE 1.5 MG CAPSULE 2. Generalized anxiety disorder - ICD9: 300.02, ICD10: F41.1 3. Major depressive disorder, recurrent episode, moderate (HCC) - ICD9: 296.32, ICD10: F33.1 Patient understands and agrees with the treatment plan: Yes Return in about 2 weeks (around 09/23/2023). Chase Bazan APRN.ACCOUNTS PAYABLE ASSOCIATE documented in this encounter [facility] 09-08-2023 Telephone encounter Note Faxed a nebulizer set order to [facility] 09-08-2023 Miscellaneous Notes Faxed a nebulizer set order to [facility] documented in this encounter [facility] 09-08-2023 Telephone encounter Note Irvin called about the IOP. She was referred by her psychiatric ACCOUNTS PAYABLE ASSOCIATE. She needs an evening IOP as she just started a job. She was given info for the [facility]. [facility] Work Phone: 09-08-2023 Miscellaneous Notes Irvin called about the IOP. She was referred by her psychiatric ACCOUNTS PAYABLE ASSOCIATE. She needs an evening IOP as she just started a job. She was given info for the [facility]. documented in this encounter [facility] 09-08-2023 Telephone encounter Note Scheduled [facility] 09-08-2023 Miscellaneous Notes Scheduled documented in this encounter [facility] 09-08-2023 Telephone encounter Note Schedule patient with a counselor. Offer to move up appointment if available or put on cancel list. [facility] 09-08-2023 Miscellaneous Notes Schedule patient with a counselor. Offer to move up appointment if available or put on cancel list. Referral for counseling made. Also sent other resources to patient through [facility], including IOP. Patient also called and left a voicemail stating she is feeling worthless and not doing well. Josefina Buchanan documented in this encounter [facility] 09-08-2023 Telephone encounter Note Referral for counseling made. Also sent other resources to patient through [facility], including IOP. [facility] 09-08-2023 Telephone encounter Note Patient also called and left a voicemail stating she is feeling worthless and not doing well. Josefina Buchanan [facility] 09-05-2023 Telephone encounter Note Patient called in regarding this message. States that she needs to get the boots this weekend and was hoping for recommendations. [facility] 09-05-2023 Miscellaneous Notes Patient called in regarding this message. States that she needs to get the boots this weekend and was hoping for recommendations. documented in this encounter [facility] 08-26-2023 Instructions Mari Mancera PA-C - 08/26/2023 1:29 PM EDT ASSESSMENT/PLAN: 1. Infected abrasion of right knee, initial encounter - - DOXYCYCLINE MONOHYDRATE 100 MG CAPSULE - MUPIROCIN 2 % TOPICAL OINTMENT - No more peroxide - Warm water/soap gently in the shower is fine for cleaning - Follow up with your PCP - Monitor for signs of worsening infection- more red, swollen, painful, hot, red streaking, fever, etc- go to ER Call PCP if symptoms worsen or no better. If symptoms worsen, or new symptoms develop go to ER. If you have worsening of breathing or breathing changes- go to ER. If you have persistent fever unrelieved by Tylenol/Motrin- go to the ER. Follow up as needed. Barriers to learning: none. The patient verbalizes understanding and is in agreement with plan of care. Mari Mancera PA-C documented in this encounter [facility] 08-26-2023 History of Presen t illness Narrative Images from the original note were not included. 08/26/2023 Patient presents with: Knee Pain: Scraped knee last Friday, feels its infected now SUBJECTIVE: This is a 33 year old female that is here today for concern for a skin infection of her right anterior knee. She abraded her right anterior knee on the sidewalk 1 week ago. She has been putting peroxide and alcohol on it every day. It is not healing well, and now has some drainage and redness around it. It warm and tender. No swelling or fluctuance. No red streaking. Tdap 11/10/19 No sick symptoms. Denies fever, chills, sweats, ill feeling, or fatigue. Patient denies shortness of breath, increased WOB, or chest pain. Pain on scale of 0-10 with 0 being no pain and 10 being greatest pain: - Nothing makes the symptoms better. Nothing makes them worse. Self-treatment:. See HPI Barriers to learning: none. Reviewed meds, OTCs, herbals or supplements. Reviewed allergies, medications, social history, and past medical history.. The severity is mild and the symptoms are not improving. The patient did not have a similar problem in the last 3 months. The patient did not take any antibiotics in the last 3 months. PAST MEDICAL HISTORY Diagnosis Date Anemia Asthma ALLERGIES Rocephin [Ceftriaxone Sodium] MEDICATIONS Current Outpatient Medications Medication Sig busPIRone (BUSPAR) 10 mg tablet Take 1 tablet by mouth three times a day. citalopram (CELEXA) 10 mg tablet Take 1 tablet by mouth once daily. lurasidone (LATUDA) 80 mg tablet Take 1 tablet by mouth daily at bedtime. Take with a 350 calorie snack. lamoTRIgine (LAMICTAL) 100 mg tablet TAKE 1 TABLET BY MOUTH EVERYDAY AT BEDTIME traZODone (DESYREL) 50 mg tablet Take 1 tablet by mouth daily at bedtime. budesonide (PULMICORT) 0.5 mg/2 mL nebulizer solution USE 2 ML VIA NEBULIZER EVERY 12 HOURS. INHALE OVER 5-15 MINUTES blood sugar diagnostic (BLOOD GLUCOSE TEST) test strip Use as instructed to check blood glucose level one time daily montelukast (SINGULAIR) 10 mg tablet take 1 tablet by mouth every day fluticasone-salmeterol (WIXELA INHUB) 250-50 mcg/dose inhaler Inhale 1 Puff as instructed two times a day. predniSONE (DELTASONE) 20 mg tablet 2 a day for 3 days (Patient not taking: Reported on 08/06/2023) fluticasone (FLONASE) 50 mcg/actuation nasal spray Use 1 [place] in each nostril once daily. (Patient not taking: Reported on 08/06/2023) fluconazole (DIFLUCAN) 100 mg tablet Take 1 tablet by mouth once daily. (Patient not taking: Reported on 08/06/2023) albuterol HFA (PROVENTIL HFA, VENTOLIN HFA) 90 mcg/actuation inhaler Inhale 2 Puffs as instructed every 4 hours as needed for wheezing/shortness of breath. (Patient not taking: Reported on 08/06/2023) Blood-Glucose Sensor (DEXCOM G6 SENSOR) mallika 1 Each once daily. Blood-Glucose Transmitter (DEXCOM G6 TRANSMITTER) mallika 1 Each once daily. metFORMIN ER (GLUCOPHAGE XR) 500 mg 24 hr tablet Take 1 tablet by mouth three times a day with meals. Blood-Glucose Meter,Continuous (DEXCOM G6 CEMETERY VAULT INSTALLER) misc 1 Each once daily. Lancets lancets Use as instructed Blood-Glucose Meter 1 Each once daily. ergocalciferol 50,000 unit capsule (VITAMIN D2, DRISDOL) Take 1 capsule by mouth one time a week. ferrous sulfate 325 mg (65 mg iron) tablet Take 1 tablet by mouth two times a day. albuterol (PROVENTIL) 2.5 mg /3 mL (0.083 %) nebulizer solution Use 3 mL via nebulizer every 4 hours as needed for wheezing/shortness of breath. Inhale by nebulizer over 5-15 minutes. albuterol HFA (PROAIR HFA) 90 mcg/actuation inhaler Inhale 2 Puffs as instructed every 6 hours as needed for wheezing/shortness of breath. mepolizumab (NUCALA) 100 mg injection Inject 100 mg subcutaneously every 4 weeks. Nebulizer and Compressor For Neb Use as directed FEXOFENADINE HCL (LAQUITA ALLERGY ORAL) Take by mouth once daily. No current facility-administered medications for this visit. SOCIAL HISTORY Social History Tobacco Use Smoking status: Never Smokeless tobacco: Never Vaping Use Vaping Use: Never used Substance Use Topics Alcohol use: Yes Comment: social Drug use: No REVIEW OF SYSTEMS Review of Systems ROS: constitutional-neg, HENT-neg, Eyes- neg, heart-neg, respiratory-neg, lymph-neg, skin- infected abrasion, MSK- neg, - All systems neg except as noted above in HPI. OBJECTIVE: BP 106/76 Pulse 77 Resp 16 Ht 162.6 cm (5' 4) Wt 113.6 kg (250 lb 8.8 oz) LMP 07/06/2023 (Exact Date) SpO2 98% BMI 43.01 kg/m . Vital signs reviewed by this provider. Physical Exam Vitals reviewed. Constitutional: General: She is not in acute distress. Appearance: Normal appearance. She is well-developed and normal weight. She is not ill-appearing, toxic-appearing or diaphoretic. HENT: Head: Normocephalic and atraumatic. Musculoskeletal: Right upper leg: Normal. Right knee: Erythema present. No swelling, deformity, effusion, ecchymosis, lacerations or bony tenderness. Normal range of motion. Tenderness present. Right lower leg: Normal. Legs: Skin: General: Skin is warm. Capillary Refill: Capillary refill takes less than 2 seconds. Findings: Abrasion (referr to right knee exam) and erythema present. Neurological: General: No focal deficit present. Mental Status: She is alert and oriented to person, place, and time. Sensory: Sensation is intact. Psychiatric: Behavior: Behavior is cooperative. ASSESSMENT/PLAN: 1. Infected abrasion of right knee, initial encounter - ICD9: 916.1, ICD10: S80.211A, L08.9 - DOXYCYCLINE MONOHYDRATE 100 MG CAPSULE - MUPIROCIN 2 % TOPICAL OINTMENT - No more peroxide - Warm water/soap gently in the shower is fine for cleaning - Follow up with your PCP - Monitor for signs of worsening infection- more red, swollen, painful, hot, red streaking, fever, etc- go to ER Call PCP if symptoms worsen or no better. If symptoms worsen, or new symptoms develop go to ER. If you have worsening of breathing or breathing changes- go to ER. If you have persistent fever unrelieved by Tylenol/Motrin- go to the ER. Follow up as needed. Barriers to learning: none. The patient verbalizes understanding and is in agreement with plan of care. Mari Mancera PA-C Medical Decision Making: Problems: Moderate: New problem with uncertain prognosis Risk: Low: Low risk from testing/treatment Moderate: Drug management Medical Decision Making Level: 4 - Moderate I spent a total of 20 minutes on the date of the service which included preparing to see the patient, [id number] patient care, completing clinical documentation, performing a medically appropriate examination, counseling and educating the patient/family/caregiver, and ordering medications, tests, or procedures. documented in this encounter [facility] 08-25-2023 Telephone encounter Note According to chart, the patient also reached out to their PULM DR for the same concern today, and they are already assisting with the Allergy consult. [facility] 08-25-2023 Miscellaneous Notes According to chart, the patient also reached out to their PULM DR for the same concern today, and they are already assisting with the Allergy consult. documented in this encounter [facility] 08-25-2023 Telephone encounter Note Please see MyChart message below Thank you. Hanna Blake RN [facility] 08-25-2023 Miscellaneous Notes Please see MyChart message below Thank you. Hanna Blake RN documented in this encounter [facility] 08-19-2023 Instructions Chase Bazan APRN.ACCOUNTS PAYABLE ASSOCIATE - 08/19/2023 9:23 AM EDT - Decrease Celexa to 10mg daily - Continue Lamictal 100mg qhs - Increase Latuda to 80 mg at bedtime-taking with food - Continue Trazodone 50mg qhs - Continue Buspar 10mg tid documented in this encounter [facility] 08-19-2023 History of Presen t illness Narrative Images from the original note were not included. [facility] PROGRESS NOTE PATIENT: Irvin Kline MRD: [id number] DATE: August 19, 2023 IDENTIFYING INFORMATION: Irvin is a 33 year old female with a history of bipolar disorder, anxiety, self reported ADHD. This visit is being conducted using HIPPA compliant telecommunication system permitting interactive audio and video Proper identity has been estbablished and consent to treat is confirmed. My chart format utilized I have communicated my name and active licensure. The patient's identity and physical location were verified at the time of this visit. Either the patient or their legal agency service representative has been informed of the risks and benefits of Medicine -- and alternatives to Mental health disorders-- treatment through a remote evaluation and consents to proceed with the evaluation remotely. CHIEF COMPLAINT: Patient presents with: Bipolar Disorder Anxiety INTERIM HISTORY: The patient was last seen for her intial assessment 07/18/23 at which time celexa was decreased, lamictal increased and latuda started. Adderall XR held to assess ADHD symptoms vs bipolar symptoms. The patient called on 2 occasions requesting discussion of intense situational stressors at work which were interfering with her physical and mental health. She was started on trazodone for sleep and buspar 10mg TID. Both have helped. She repodrts ongoing issues at work. [employer] Security Administrator and HR tag teamed me and I walked out. She states she reported the new artist manager to again and found that the artist manager had been reporting that Irvin was bullying her. She states she called her friend Jac to help get her calmed down as well as later that that evening. 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 I know someone there, another dad-figure who says it is better.' She admits to having irritability yesterday, but was able to find some me time and her took care of the kids. She is getting enjoyment with activities. She is getting along well with her . No arguments. She states the stress is making her vape more continuously. She states she is trying to stop. She denies other times of impulsivity. She does not feel leaving her job abruptly as impulsive. It was coming. They are criticizing everything I am doing. She does feel monitored and possibly paranoid at work, but not in other settings. She is engaged in conversation, even while she is seen outside with multiple kids playing around her. She is restless at times. She is completing self care and caring for her house and family. She denies any trouble completing work over the past week. She is tearful occasionally, mostly d/t feeling irritable and wronged by people at work. She denies behaviors, but has verbal outbursts toward those at work. She denies issues at home. She is getting some sleep every night. The trazodone is taken nightly. Averaging 7 hours of sleep. Feels rested. She is having intense anxiety, but notes significant improvement with buspar. No panic attacks. The conversation is more directed, but still scattered. Denies SI/HI/ and A/V H. No concern of paranoia, delusions, or psychosis. The patient does not appear to be responding to internal or external stimuli. ROS Substance Use History: Alcohol: Social drinker Tobacco: Used to vape Marijuana: Never Illegal drug Use: Never Medication Review: Celexa 20mg daily Lamictal 100mg qhs Latuda 60 mg at bedtime-taking with food Trazodone 50mg qhs Buspar 10mg tid Reviewed recent VS--increasing BP and HR Recent increase of Asthma issues PDMP: 270-Adderall XR 30mg daily-last fill 06/09/23, Adderall XR 15mg #30-05/21/23 Phentermine #30-11/26/22 Previous Medication Trials: Hospitalizations: Never--not admitted. Seen in ER in 2015 for panic attack ECT: None TMS: None Ketamine: None Work: Works at a f[employer] in [facility] as a [employer] X 4 months. 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 Therapy: none RATING SCALES: PHQ-9 PHQ-9 Score: 3 (08/17/2023 7:21 PM) (0-4) minimal depression, (5-9) mild depression, (10-14) moderate depression, (15-19) moderately severe depression, (20-27) severe depression SHIRLENE-7 SHIRLENE-7 Total Score: 8 (08/17/2023 7:22 PM) (0-4) minimal anxiety, (5-9) mild anxiety, (10-14) moderate anxiety, (15-21) severe anxiety Depression Screenin07/15/2023 08/17/2023 PHQ-9 All Questions Little interest or pleasure in doing things 1 1 Feeling down, depressed, or hopeless 2 1 Trouble falling or staying asleep, or sleeping too much 3 0 Feeling tired or having little energy 3 0 Poor appetite or overeating 1 0 Feeling bad about yourself - or that you are a failure or have let yourself or your family down 1 1 Trouble concentrating on things, such as reading the newspaper or watching television 3 0 Moving or speaking so slowly that other people could have noticed. Or the opposite - being so fidgety or restless that you have been moving around a lot more than usual 0 0 Thoughts that you would be better off , or of hurting yourself in some way 0 0 PHQ-9 Score 14 3 (0-4) Minimal Depression (5-9) Mild Depression (10-14) Moderate Depression (15-19) Moderately severe Depression (20-27) Severe Depression SHIRLENE-7 Screenin07/15/2023 08/17/2023 SHIRLENE-7 All Questions Feeling nervous, anxious, or on edge More than half the days More than half the days Not being able to stop or control worrying Nearly Everyday Several days Worrying too much about different things Nearly Everyday More than half the days Trouble relaxing Nearly Everyday Several days Being so restless that it is hard to sit still Several days Several days Becoming easily annoyed or irritable Nearly Everyday Several days Feeling afraid, as if something awful might happen More than half the days Not at all SHIRLENE-7 Score 17 8 (0-5) mild anxiety (6-10) moderate anxiety (11-15) Moderately severe anxiety (16-21) Severe anxiety [place] SUICIDE SEVERITY RATING SCALE 1.) Wish to be : Have you wished you were or wished you could go to sleep and not wake up? NO 2.) Suicidal Thoughts: Have you actually had any thoughts of killing yourself? NO 6.) Suicide Behavior Question: Have you ever done anything, started to do anything, or prepared to do anything to end your life?NO RISK LEVEL RISK/PROTECTIVE FACTOR SUICIDALITY POSSIBLE INTERVENTIONS High Psychiatric disorders with severe symptoms, or acute precipitating event; protective factors not relevant Potentially lethal suicide attempt or persistent ideation with strong intent or suicide rehearsal Admission generally indicated unless a significant change reduces risk. Suicide precautions Moderate Multiple risk factors, few protective factors Suicidal ideation with plan, but no intent or behavior Admission may be necessary depending on risk factors. Develop crisis plan. Give emergency/crisis numbers Low Modifiable risk factors, strong protective factors Thoughts of , no plan, intent or behavior Outpatient referral, symptom reduction. Give emergency/crisis numbers Risk level: mild Current Outpatient Medications on File Prior to Visit Medication Sig budesonide (PULMICORT) 0.5 mg/2 mL nebulizer solution USE 2 ML VIA NEBULIZER EVERY 12 HOURS. INHALE OVER 5-15 MINUTES citalopram (CELEXA) 20 mg tablet Take 1 tablet by mouth once daily. lamoTRIgine (LAMICTAL) 100 mg tablet TAKE 1 TABLET BY MOUTH EVERYDAY AT BEDTIME busPIRone (BUSPAR) 10 mg tablet Take 1 tablet by mouth three times a day. traZODone (DESYREL) 50 mg tablet Take 1 tablet by mouth daily at bedtime. lurasidone (LATUDA) 60 mg tab tablet Take 1 tablet by mouth daily at bedtime. Take with a 350 calorie snack. blood sugar diagnostic (BLOOD GLUCOSE TEST) test strip Use as instructed to check blood glucose level one time daily montelukast (SINGULAIR) 10 mg tablet take 1 tablet by mouth every day amphetamine-dextroamphetamine XR (ADDERALL XR) 30 mg capsule Take 1 capsule by mouth once daily for 30 days. (Patient not taking: Reported on 08/06/2023) fluticasone-salmeterol (WIXELA INHUB) 250-50 mcg/dose inhaler Inhale 1 Puff as instructed two times a day. predniSONE (DELTASONE) 20 mg tablet 2 a day for 3 days (Patient not taking: Reported on 08/06/2023) fluticasone (FLONASE) 50 mcg/actuation nasal spray Use 1 [place]mont in each nostril once daily. (Patient not taking: Reported on 08/06/2023) fluconazole (DIFLUCAN) 100 mg tablet Take 1 tablet by mouth once daily. (Patient not taking: Reported on 08/06/2023) amphetamine-dextroamphetamine XR (ADDERALL XR) 15 mg capsule Take 1 capsule by mouth once daily for 30 days. (Patient not taking: Reported on 08/06/2023) albuterol HFA (PROVENTIL HFA, VENTOLIN HFA) 90 mcg/actuation inhaler Inhale 2 Puffs as instructed every 4 hours as needed for wheezing/shortness of breath. (Patient not taking: Reported on 08/06/2023) Blood-Glucose Sensor (DEXCOM G6 SENSOR) mallika 1 Each once daily. Blood-Glucose Transmitter (DEXCOM G6 TRANSMITTER) mallika 1 Each once daily. metFORMIN ER (GLUCOPHAGE XR) 500 mg 24 hr tablet Take 1 tablet by mouth three times a day with meals. [DISCONTINUED] levalbuterol tartrate HFA 45 mcg/actuation inhaler Inhale 2 Puffs as instructed every 4 hours as needed for wheezing/shortness of breath. Blood-Glucose Meter,Continuous (DEXCOM G6 CEMETERY VAULT INSTALLER) misc 1 Each once daily. Lancets lancets Use as instructed Blood-Glucose Meter 1 Each once daily. ergocalciferol 50,000 unit capsule (VITAMIN D2, DRISDOL) Take 1 capsule by mouth one time a week. ferrous sulfate 325 mg (65 mg iron) tablet Take 1 tablet by mouth two times a day. albuterol (PROVENTIL) 2.5 mg /3 mL (0.083 %) nebulizer solution Use 3 mL via nebulizer every 4 hours as needed for wheezing/shortness of breath. Inhale by nebulizer over 5-15 minutes. albuterol HFA (PROAIR HFA) 90 mcg/actuation inhaler Inhale 2 Puffs as instructed every 6 hours as needed for wheezing/shortness of breath. mepolizumab (NUCALA) 100 mg injection Inject 100 mg subcutaneously every 4 weeks. Nebulizer and Compressor For Neb Use as directed FEXOFENADINE HCL (LAQUITA ALLERGY ORAL) Take by mouth once daily. No current facility-administered medications on file prior to visit. Medication side effects: None Delusions: None Hallucinations: none Past family; and social history reviewed. VITAL SIGNS: LMP 07/06/2023 (Exact Date) LAB DATA: Reviewed and discussed. No data to display AIMS TESTING Negative MENTAL STATUS EXAMINATION: Appearance: appears stated age, ,Female, well developed, well nourished, obese, Casual clothing, grooming is Within Normal Limits, Psychomotor Activity: Steady gait, good muscle tone Per patient report d/t virtual appointment. Denies recent falls. Behavior: mildly distracted and restless, Fair eye contact, Speech: spontaneous , Normal rate, Normal volume, Clear, Mood: Anxious, Irritable, and Intense Affect: mildly expansive Thought Process: circumstantial and tangential Thought Content: situational No suicidal ideation, intent or plan., No homicidal ideation, intent or plan., Ruminations: about work drama Phobias:none Cognition: Orientation: Person, Place, Time and Situation Attention: Fair Concentration:Fair Language: Intact Estimated Intelligence: Fair Memory: Intact recent and remote Abstraction: Intact Insight: adequate Judgement: adequate RISK ASSESSMENT: Discussed the risk and benefit of the medication, client demonstrates understanding. Discussed importance of the chosen treatment plan. Client agrees with the discussed plans and efforts to keep within the stated plan. PDMP website checked and validated. All prescriptions have been APPROPRIATELY filled. No suspicious activity was identified. 08/19/2023 by Chase Bazan APRN.ACCOUNTS PAYABLE ASSOCIATE PLAN: - Decrease Celexa to 10mg daily - Continue Lamictal 100mg qhs - Increase Latuda to 80 mg at bedtime-taking with food - Continue Trazodone 50mg qhs - Continue Buspar 10mg tid - OARRS report reviewed. - Explained to the patient risks, benefits, side effects of the medications. Risks and side effects explained but not limited to black box warning. The patient has the capacity and gives me informed consent for the medication. - Check yourself in the ER or call 911 for help if you have any suicidal or homicidal thoughts, or if not able to take care of self at home with supports. - Recommended healthy and balanced diet. - Recommended seeing a therapist. - Labs reviewed - Discussed the hazards of tobacco smoking (use). Smoking cessation recommended and techniques and options to help patient quit were discussed. - Discussed importance of regular exercise and recommended starting or continuing a regular exercise program for good health. PSYCHIATRY APPOINTMENT: Individual Therapy with E/M SUBJECTIVE: The patient is less intense and anxious. Continues to worry and have some impulsivity r/t job. OBJECTIVE: Work drama and potential work change GOALS: Make lists to help stay on task. TREATMENT MODALITIES: Person-centered Therapy, Supportive Therapy I spent a total of 14 minutes on the date of service which included preparing to see the patient, [id number] patient care, completing clinical documentation, obtaining and/or reviewing separately obtained history, performing a midically appropriate examination, counseling and educating the patient/family/caregiver, and independently interpreting results (not separately reported). ADD ON PSYCHOTHERAPY CODE: Yes, I spent 20 minutes (in addition to E/M services) in psychotherapy, utilizing supportive techniques to target the change in health status, with goal to continue to stay on top of things and enjoy each and every day. ASSESSMENT/PLAN: 1. Bipolar II disorder (HCC) - ICD9: 296.89, ICD10: F31.81 (primary diagnosis) - LURASIDONE 80 MG TABLET - LAMOTRIGINE 100 MG TABLET 2. Generalized anxiety disorder - ICD9: 300.02, ICD10: F41.1 - BUSPIRONE 10 MG TABLET - TRAZODONE 50 MG TABLET 3. Major depressive disorder, recurrent episode, moderate (HCC) - ICD9: 296.32, ICD10: F33.1 - CITALOPRAM 10 MG TABLET - TRAZODONE 50 MG TABLET Patient understands and agrees with the treatment plan: Yes Return in about 5 weeks (around 09/23/2023) for 4pm virtual. Chase Bazan APRN.CNP documented in this encounter [facility] 08-19-2023 Note HNO ID: [id number] Author: CHASE BAZAN APRN.CNP Service: ? Author Type: Nurse Practitioner Type: Progress Notes Filed: 08/19/2023 09:25 Note Text: [facility] PROGRESS NOTE PATIENT: Irvin Kline MRD: [id number] DATE: August 19, 2023 IDENTIFYING INFORMATION: Irvin is a 33 year old female with a history of bipolar disorder, anxiety, self reported ADHD. This visit is being conducted using HIPPA compliant telecommunication system permitting interactive audio and video Proper identity has been estbablished and consent to treat is confirmed. My chart format utilized I have communicated my name and active licensure. The patient's identity and physical location were verified at the time of this visit. Either the patient or their legal agency service representative has been informed of the risks and benefits of Medicine -- and alternatives to Mental health disorders-- treatment through a remote evaluation and consents to proceed with the evaluation remotely. CHIEF COMPLAINT: Patient presents with: Bipolar Disorder Anxiety INTERIM HISTORY: The patient was last seen for her intial assessment 07/18/23 at which time celexa was decreased, lamictal increased and latuda started. Adderall XR held to assess ADHD symptoms vs bipolar symptoms. The patient called on 2 occasions requesting discussion of intense situational stressors at work which were interfering with her physical and mental health. She was started on trazodone for sleep and buspar 10mg TID. Both have helped. She repodrts ongoing issues at work. Linux Security Administrator and HR tag teamed me and I walked out. She states she reported the new artist manager to again and found that the artist manager had been reporting that Irvni was bullying her. She states she called her friend Jac to help get her calmed down as well as later that that evening. 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 I know someone there, another dad-figure who says it is better.' She admits to having irritability yesterday, but was able to find some me time and her took care of the kids. She is getting enjoyment with activities. She is getting along well with her . No arguments. She states the stress is making her vape more continuously. She states she is trying to stop. She denies other times of impulsivity. She does not feel leaving her job abruptly as impulsive. It was coming. They are criticizing everything I am doing. She does feel monitored and possibly paranoid at work, but not in other settings. She is engaged in conversation, even while she is seen outside with multiple kids playing around her. She is restless at times. She is completing self care and caring for her house and family. She denies any trouble completing work over the past week. She is tearful occasionally, mostlyd/t feeling irritable and wronged by people at work. She denies behaviors, but has verbal outbursts toward those at work. She denies issues at home. She is getting some sleep every night. The trazodone is taken nightly. Averaging 7 hours of sleep. Feels rested. She is having intense anxiety, but notes significant improvement with buspar. No panic attacks. The conversation is more directed, but still scattered. Denies SI/HI/ and A/V H. No concern of paranoia, delusions, or psychosis. The patient does not appear to be responding to internal or external stimuli. ROS Substance Use History: Alcohol: Social drinker Tobacco: Used to vape Marijuana: Never Illegal drug Use: Never Medication Review: Celexa 20mg daily Lamictal 100mg qhs Latuda 60 mg at bedtime-taking with food Trazodone 50mg qhs Buspar 10mg tid Reviewed recent VS--increasing BP and HR Recent increase of Asthma issues PDMP: 270-Adderall XR 30mg daily-last fill 06/09/23, Adderall XR 15mg #30-05/21/23 Phentermine #30-11/26/22 Previous Medication Trials: Hospitalizations: Never--not admitted. 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 Therapy: none RATING SCALES: PHQ-9 PHQ-9 Score: 3 (08/17/2023 7:21 PM) (0-4) minimal depression, (5-9) mild depression, (10-14) moderate depression, (15-19) moderately severe depression, (20-27) severe depression SHIRLENE-7 SHIRLENE-7 Total Score: 8 (08/17/2023 7:22 PM) (0-4) minimal anxiety, (5-9) mild anxiety, (10-14) moderate anxiety, (15-21) severe anxiety Depression Screenin07/15/2023 08/17/2023 PHQ-9 All Questions Little interest or pleasure in doing things 1 1 Feeling down, depressed, or hopeless 2 1 Trouble falling or staying asleep, or sleeping too much 3 0 Feeling tired or having little energy 3 0 Poor appetite or overeating 1 0 Feeling bad about yourself - or that you are a failure or have let yourself or your family down (more content not included)... [facility] 08-13-2023 Telephone encounter Note 90 day script request Pharmacy faxed requesting the following refill: Refill(s) Requested: Requested Prescriptions Pending Prescriptions Disp Refills citalopram (CELEXA) 20 mg tablet 90 tablet 1 Sig: Take 1 tablet by mouth once daily. lamoTRIgine (LAMICTAL) 100 mg tablet 90 tablet 1 Sig: TAKE 1 TABLET BY MOUTH EVERYDAY AT BEDTIME ALLERGIES Allergen Reactions Rocephin [Ceftriaxo* Anaphylaxis per pt mother was 3yo (home) [phone] (cell) Last Office Visit Date: Visit date not found Last [facility] Visit: Visit date not found Future Appointment: Visit date not found The patients preferred pharmacy has been captured for this encounter? yes Request is for script(s) to be escript to pharmacy. Specialty Problems Psych Problems Depressive disorder Josefina Buchanan August 13, 2023 11:32 AM [facility] 08-13-2023 Miscellaneous Notes 90 day script request Pharmacy faxed requesting the following refill: Refill(s) Requested: Requested Prescriptions Pending Prescriptions Disp Refills citalopram (CELEXA) 20 mg tablet 90 tablet 1 Sig: Take 1 tablet by mouth once daily. lamoTRIgine (LAMICTAL) 100 mg tablet 90 tablet 1 Sig: TAKE 1 TABLET BY MOUTH EVERYDAY AT BEDTIME ALLERGIES Allergen Reactions Rocephin [Ceftriaxo* Anaphylaxis per pt mother was 3yo (home) [phone] (cell) Last Office Visit Date: Visit date not found Last [facility] Visit: Visit date not found Future Appointment: Visit date not found The patients preferred pharmacy has been captured for this encounter? yes Request is for script(s) to be escript to pharmacy. Specialty Problems Psych Problems Depressive disorder Josefina Buchanan August 13, 2023 11:32 AM documented in this encounter [facility] 08-07-2023 Note Addended by: JAMEY GARDNER on: 08/07/2023 06:21 PM Modules accepted: Orders [facility] 08-07-2023 Miscellaneous Notes Addended by: JAMEY GARDNER on: 08/07/2023 06:21 PM Modules accepted: Orders documented in this encounter [facility] 08-07-2023 History of Presen t illness Narrative Images from the original note were not included. Episode Visit Count: 7 Therapist That Will Accept/Oversee The Plan Of Care: Jamey Gardner PT Start of Care Date: 03/17/23 Onset Date: 03/17/21 Patient Identified by Name and Date of : Yes REHABILITATION AND SPORTS THERAPY PHYSICAL THERAPY PROGRESS REPORT PLAN OF CARE UPDATE: Assessment: Irvin Kline demonstrates difficulty with standing, walking, stair negotiation, and working. She has progressed toward goals. Patient continues to present with impairments in independence in exercise, overall function, strength, and symptom management that interfere with rising from a chair, walking . Current prognosis is Good due to: current objective clinical presentation . She will benefit from continued skilled therapy services to meet the updated goals for this plan of care as noted below. Goals updated 08/07/2023 Goals for Episode of Care: created on 03/17/23 through 06/09/23 [place] in home exercise program. - Met so far Normal gait. - Not assessed Increase ankle strength to a 4+/5 or greater in 12 weeks or less for improved ankle stability when walking - Progressing, will continue Pt will demo R ankle DF ROM equal to that of the opposite leg for improved gait mechanics- Progressing, will continue Pt will report decreased pain with work duties in 8 weeks or less - Met so far Patient Goals: Decrease pain Patient Goals: Decrease pain Planned Interventions, Frequency, and Duration: 1x/week, 4 weeks Total Number of Visits Planned: 4 Patient to be seen for Therapeutic exercise (80297), Neuromuscular re-education (02786), Manual therapy (48629), Therapeutic activities (28039), Self-prison management (18057), Gait Training (98100), Patient/Family/Caregiver Education PLAN FOR NEXT VISIT: Ankle strengthening as tolerated. Keep pain under control. 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 Doing the exercises 2-3 days a week and they are still challenging. Stairs is still challenging. Goes up the stairs side-ways. Patient Goals: Decrease pain Functional Limitations: rising from a chair, walking Prior Level of Function: Independent without limitations Intake Information: Prescription present Previous Treatment: Immobilizer/brace , Surgery Pain: Pain Pain Level: 0 Pain Location: Ankle - Right Post Treatment Pain Post Treatment Pain Location: Ankle - Right PROMIS Scales 08/07/2023 05/08/2023 03/15/2023 Higher is Better Phys Func - Score 43 (mild dysfunction) 43 (mild dysfunction) 45 (within normal limits) Phys Func - Percentile 24 24 31 Self-Eff Symptom - Score 39 (Low) 44 (Average) 41 (Average) Self-Eff Symptom - Percentile 14 27 18 T-scores: mean of general population = 50. 5 points is clinically meaningfully difference Percentiles provide an indication of how the patient's score ranks in relation to the general population. Higher percentile rankings indicate better function/quality of life. 50th percentile is the average of the general population and indicates half of respondents had a worse score. OBJECTIVE MEASURES WITH LEVEL OF FUNCTION: LE AROM R Ankle Dorsiflexion: 7 Degrees LE Flexibility Flexibility: Gastrocnemius Flexibility R Gastrocnemius Flexibility: tight L Gastrocnemius Flexibility: mildly tight LE Strength R Ankle Dorsiflexion (L4): 4-/5 R Ankle Plantar Flexion: 3+/5 R Ankle Inversion: 3+/5 R Ankle Eversion: 3/5 TREATMENT: Therapeutic Exercise: 1: Standing calf stretch 4 x 30 sec 2: All objective measures taken this session 3: B heel raise 3 x 5 reps (Informed pt to reduce WB on RLE to 40%) 4: *Discussed HEP and which exercises to continue to focus on. Complete HEP 3-4 times a week every week. Discussed possible use of BFR next month if no contraindications and if no progress is seen with ankle strength. Skilled Intervention: Patient was educated in proper exercise technique and purpose for exercises. Correct performance of therapeutic exercises was facilitated with verbal and visual cuing. Billing Therapeutic Exercise Treatment Minutes: 29 Skilled Treatment Time Minutes (timed and untimed codes): 29 Total Session Time (minutes): 29 Session Start Time : 1747 Session Stop Time : 1816 Jamey Gardner PT documented in this encounter [facility] 08-07-2023 Telephone encounter Note Returned patient call. 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 She started on Friday, by Friday she felt the stress of their relationship. She feels discriminated against her because of medical conditions. Need to take 2 15minutes breaks and a 30 minute break--needed for her diabetes care. She did go to and report the problems. She is to return to work tomorrow. She reports she is having more anxiety/panic. She is crying uncontrollably. I just can't do it. She has been vaping more regularly, she has been out walking in nature. She states she has been sleeping well. One friend gave me a hit of pot. And it helped. It relaxed me enough that I could function. The situation is now overpowering to the point I cannot work. HR sent me home today. Start buspar 10mg up to three times a day. Discussed risk/benefit and potential side effects. Reminded of the cautions of sharing medications. [facility] 08-07-2023 Miscellaneous Notes Returned patient call. 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 She started on Friday, by Friday she felt the stress of their relationship. She feels discriminated against her because of medical conditions. Need to take 2 15minutes breaks and a 30 minute break--needed for her diabetes care. She did go to and report the problems. She is to return to work tomorrow. She reports she is having more anxiety/panic. She is crying uncontrollably. I just can't do it. She has been vaping more regularly, she has been out walking in nature. She states she has been sleeping well. One friend gave me a hit of pot. And it helped. It relaxed me enough that I could function. The situation is now overpowering to the point I cannot work. HR sent me home today. Start buspar 10mg up to three times a day. Discussed risk/benefit and potential side effects. Reminded of the cautions of sharing medications. documented in this encounter [facility] 08-07-2023 Telephone encounter Note IRENE: 04/29/2023 NOV: 09/03/2023 Patient is requesting a letter stating that because of her medication Metformin she needs to use the bathroom more frequently. Please advise. Kimberly Nixon MA [facility] 08-07-2023 Miscellaneous Notes IRENE: 04/29/2023 NOV: 09/03/2023 Patient is requesting a letter stating that because of her medication Metformin she needs to use the bathroom more frequently. Please advise. Kimberly Nixon MA documented in this encounter [facility] 08-07-2023 Telephone encounter Note Patient left voicemail stating she needs to urgently speak with you regarding some issues Josefina Buchanan [facility] 08-07-2023 Miscellaneous Notes Patient left voicemail stating she needs to urgently speak with you regarding some issues Josefina Buchanan documented in this encounter [facility] 08-06-2023 History of Presen t illness Narrative Images from the original note were not included. This note was created using [employer]. Subjective Irvin Kline is a 33 year old female. Patient presents with: Blood Pressure: Low glucose, CP Had blood sugar drop from 120's to 90's this morning, ate peanut butter and drank juice and now bs is back up to 130 Sees endocrine, has glucose tabs as well C/o left chest pain into her upper left back that started 2 days ago States she does not recall an injury or trauma Is able to reproduce pain with movement of her left arm and when touching the chest. History of a heart arrythmia. No deformity or swelling No syncope Drinks a lot of water Cut out caffeine The history is provided by the patient. 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 Review of Systems Constitutional: Negative for appetite change, chills, diaphoresis, fatigue and fever. HENT: Negative for tinnitus. Eyes: Negative for photophobia and visual disturbance. Respiratory: Negative for cough, chest tightness, shortness of breath and wheezing. Cardiovascular: Positive for chest pain. Negative for palpitations and leg swelling. Muscular Gastrointestinal: Negative. Genitourinary: Negative. Musculoskeletal: Positive for myalgias. Negative for neck pain and neck stiffness. Skin: Negative for rash. Neurological: Positive for light-headedness. Negative for dizziness, syncope, weakness, numbness and headaches. Resolved Psychiatric/Behavioral: Negative for dysphoric mood, self-injury, sleep disturbance and suicidal ideas. The patient is not nervous/anxious. All other systems reviewed and are negative. Objective BP 112/73 Pulse 72 Temp 36.6 C (97.9 F) (Temporal) Ht 162.6 cm (5' 4) Wt 113.9 kg (251 lb 1.7 oz) LMP 07/06/2023 (Exact Date) SpO2 97% BMI 43.10 kg/m PAST MEDICAL HISTORY Diagnosis Date Anemia Asthma PAST SURGICAL HISTORY Procedure Laterality Date NONE Current Outpatient Medications on File Prior to Visit Medication Sig traZODone (DESYREL) 50 mg tablet Take 1 tablet by mouth daily at bedtime. citalopram (CELEXA) 20 mg tablet Take 1 tablet by mouth once daily. lamoTRIgine (LAMICTAL) 100 mg tablet TAKE 1 TABLET BY MOUTH EVERYDAY AT BEDTIME lurasidone (LATUDA) 60 mg tab tablet Take 1 tablet by mouth daily at bedtime. Take with a 350 calorie snack. blood sugar diagnostic (BLOOD GLUCOSE TEST) test strip Use as instructed to check blood glucose level one time daily montelukast (SINGULAIR) 10 mg tablet take 1 tablet by mouth every day amphetamine-dextroamphetamine XR (ADDERALL XR) 30 mg capsule Take 1 capsule by mouth once daily for 30 days. fluticasone-salmeterol (WIXELA INHUB) 250-50 mcg/dose inhaler Inhale 1 Puff as instructed two times a day. budesonide (PULMICORT) 0.5 mg/2 mL nebulizer solution Use 2 mL via nebulizer every 12 hours. Inhale over 5-15 minutes predniSONE (DELTASONE) 20 mg tablet 2 a day for 3 days fluticasone (FLONASE) 50 mcg/actuation nasal spray Use 1 [place] in each nostril once daily. fluconazole (DIFLUCAN) 100 mg tablet Take 1 tablet by mouth once daily. amphetamine-dextroamphetamine XR (ADDERALL XR) 15 mg capsule Take 1 capsule by mouth once daily for 30 days. albuterol HFA (PROVENTIL HFA, VENTOLIN HFA) 90 mcg/actuation inhaler Inhale 2 Puffs as instructed every 4 hours as needed for wheezing/shortness of breath. Blood-Glucose Sensor (DEXCOM G6 SENSOR) mallika 1 Each once daily. Blood-Glucose Transmitter (DEXCOM G6 TRANSMITTER) mallika 1 Each once daily. metFORMIN ER (GLUCOPHAGE XR) 500 mg 24 hr tablet Take 1 tablet by mouth three times a day with meals. [DISCONTINUED] levalbuterol tartrate HFA 45 mcg/actuation inhaler Inhale 2 Puffs as instructed every 4 hours as needed for wheezing/shortness of breath. Blood-Glucose Meter,Continuous (DEXCOM G6 CEMETERY VAULT INSTALLER) misc 1 Each once daily. Lancets lancets Use as instructed Blood-Glucose Meter 1 Each once daily. ergocalciferol 50,000 unit capsule (VITAMIN D2, DRISDOL) Take 1 capsule by mouth one time a week. ferrous sulfate 325 mg (65 mg iron) tablet Take 1 tablet by mouth two times a day. albuterol (PROVENTIL) 2.5 mg /3 mL (0.083 %) nebulizer solution Use 3 mL via nebulizer every 4 hours as needed for wheezing/shortness of breath. Inhale by nebulizer over 5-15 minutes. albuterol HFA (PROAIR HFA) 90 mcg/actuation inhaler Inhale 2 Puffs as instructed every 6 hours as needed for wheezing/shortness of breath. mepolizumab (NUCALA) 100 mg injection Inject 100 mg subcutaneously every 4 weeks. Nebulizer and Compressor For Neb Use as directed FEXOFENADINE HCL (LAQUITA ALLERGY ORAL) Take by mouth once daily. No current facility-administered medications on file prior to visit. ALLERGIES Allergen Reactions Rocephin [Ceftriaxo* Anaphylaxis per pt mother was 3yo Physical Exam Vitals and nursing note reviewed. Constitutional: General: She is awake. She is not in acute distress. Appearance: Normal appearance. She is well-developed and well-groomed. She is morbidly obese. She is not ill-appearing. HENT: Head: Normocephalic. Eyes: Conjunctiva/sclera: Conjunctivae normal. Pupils: Pupils are equal, round, and reactive to light. Cardiovascular: Rate and Rhythm: Normal rate. Rhythm regularly irregular. Pulses: Normal pulses. Heart sounds: Normal heart sounds. Pulmonary: Effort: Pulmonary effort is normal. No respiratory distress. Breath sounds: Normal breath sounds. No decreased air movement. No decreased breath sounds or wheezing. Musculoskeletal: General: No swelling, tenderness or signs of injury. Normal range of motion. Arms: Cervical back: Full passive range of motion without pain, normal range of motion and neck supple. Right lower leg: No edema. Left lower leg: No edema. Lymphadenopathy: Cervical: No cervical adenopathy. Skin: General: Skin is warm and dry. Capillary Refill: Capillary refill takes less than 2 seconds. Findings: No rash. Neurological: General: No focal deficit present. Mental Status: She is alert and oriented to person, place, and time. Mental status is at baseline. Cranial Nerves: No cranial nerve deficit. Sensory: Sensation is intact. No sensory deficit. Motor: Motor function is intact. No weakness. Coordination: Coordination is intact. Gait: Gait is intact. Gait normal. Psychiatric: Attention and Perception: Attention and perception normal. Mood and Affect: Mood and affect normal. Speech: Speech normal. Behavior: Behavior normal. Behavior is cooperative. Thought Content: Thought content normal. Thought content does not include homicidal or suicidal ideation. Cognition and Memory: Cognition and memory normal. Judgment: Judgment normal. ASSESSMENT/PLAN: 1. Left-sided chest wall pain - ICD9: 786.52, ICD10: R07.89 (primary diagnosis) - likely a pulled muscle since pain can be recreated with palpation and movement of the arm. - ED if severe, discussed red flag symptoms and when to be evaluated in the ED. Pt VU 2. Upper back pain on left side - ICD9: 724.5, ICD10: M54.9 - likely musculoskeletal. - nsaids, ice 3. Low blood sugar - ICD9: 251.2, ICD10: E16.2 - small frequent meals, push fluids, carry glucose tabs - ED if severe, discussed red flag symptoms and when to be evaluated in the ED. Pt VU - work note provided for today Follow up as needed or sooner if new or worsening symptoms. Krystle Espinoza APRN.SHEN documented in this encounter [facility] 07-21-2023 Telephone encounter Note 07/21/23-Return call made. She states initially had good sleep, but has diminished. She has been getting some sleep the other nights. She reports a pretty bad explosion with her daughter yesterday. She angrily left the room to avoid further verbal outburst. Reminded it could take a few weeks to note significant improvement in mood and behavior. Understands to monitor for consistently worsening mood and sleep patterns. Also reminded to seek ER services as needed. She verbalized understanding. Patient given ample time for questions. [facility] 07-21-2023 Miscellaneous Notes 07/21/23-Return call made. She states initially had good sleep, but has diminished. She has been getting some sleep the other nights. She reports a pretty bad explosion with her daughter yesterday. She angrily left the room to avoid further verbal outburst. Reminded it could take a few weeks to note significant improvement in mood and behavior. Understands to monitor for consistently worsening mood and sleep patterns. Also reminded to seek ER services as needed. She verbalized understanding. Patient given ample time for questions. Patient called and wanted to know if she should be continuing her Adderall. If yes, she needs a refill. She also would like to discuss the Latuda with you, please call Josefina Buchanan documented in this encounter [facility] 07-21-2023 Telephone encounter Note Patient called and wanted to know if she should be continuing her Adderall. If yes, she needs a refill. She also would like to discuss the Latuda with you, please call Josefina Buchanan [facility] 07-18-2023 Instructions Chase Bazan APRN.CNP - 07/18/2023 10:56 AM EDT - Decrease Celexa to 20mg daily - Increase lamictal to 100mg daily - Start Latuda 60mg daily - Hold Adderall XR documented in this encounter [facility] 07-18-2023 History of Presen t illness Narrative Images from the original note were not included. [facility] INITIAL PSYCHIATRIC EVALUATION PATIENT: Irvin Kline MRD: [id number] DATE: July 18, 2023 IDENTIFYING INFORMATION: Irvin is a 33 year old female with a history of Anxiety and depression, self reported ADHD. Patient was referred by PCP-Dr Snowden. This visit is being conducted using HIPPA compliant telecommunication system permitting interactive audio and video, My Chart format utilized Proper identity has been estabablished and consent to treat is confirmed. I have communicated my name and active licensure. The patient's identity and physical location were verified at the time of this visit. Either the patient or their legal agency service representative has been informed of the risks and benefits of Medicine-- and alternatives to Mental health disorders-- treatment through a remote evaluation and consents to proceed with the evaluation remotely. CHIEF COMPLAINT: Patient presents with: Anxiety Depression HPI: This is the patients initial assessment. She feels her medications are not working well. She continues to feel unfocused, even with use of adderall. She reports racing thoughts. She has had times of excessive spending. Frequently occurring and causing some stress in her relationships. She has a co-worker that is helping her make a budget. She does not feel adderall has ever worked. She frequently feels scattered and is easily distracted. Admits this is much in relation to worry. She enjoys feeling more umph with the stimulant. Discussed the concern of it also increasing anxiety and hyper focus which causes her to feel irritable. She admits to verbal outbursts with her kids. Some reactions are greater than called for. She often feels bad for her behaviors. None are destructive to physical property or persons. She enjoys her job because it is busy, not a lot of sitting. 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 Longest job was while she was while in training at [employer] in . Otherwise, she does not believe she has been at any job longer than a year. She states she becomes overwhelmed and anxious and I just cannot stay. She works, but has few other activities. Her anxiety keeps her from taking her kids to a park to play. I rarely come out of the home. She has some times of depression, but is not avoiding self care or carbon paper interleafer. She does have days of poor energy and wanting to stay in her room. Tearful at times. She does not feel hopeless or helpless. She states she has steady anxiety throughout the day. She has changed time of medications to alleviate the anxiety. She has peaks. She has dog as DARLING, but cannot bring her to work with her. Some days of depression, feels sad when she tries to be good and not spend money. She admits she was spending money eating fast food. She admits it is impulsive. She states she and her family have started camping on weekends, but admits this is really limited Difficulty with falling asleep, wakes frequently. No times of being awake over 24 hours. Has had times of only getting 2 hours. She has times of not feeling sleepy. She is restless and fidgety. During the assessment, she would get loud with rapid speech and have more animated gesturing. She rapidly became tearful when discussing her difficulty with her grandfathers , when she was only 2 years old. She also spoke of vivid, intense memories of 10/28 when she was in 5th grade. She denies SI/HI/ and A/V h. Mildly suspicious and guarded. Does not believe she is being monitored. She also cannot articulate what makes her anxious about going out of her home. She does not appear to be responding to internal or external stimuli. Discussed the connection between physical and mental health, notably in relation to hx of significant asthma and blood sugar concerns. Reviewed recent VS--increasing BP and HR Recent increase of Asthma issues Current psychiatric medications: Adderall XR 30mg ?? Celexa 40mg daily Lamictal 25mg qhs PDMP: 270-Adderall XR 30mg daily-last fill 06/09/23, Adderall XR 15mg #30-05/21/23 Phentermine #30-11/26/22 Patient goals for treatment: The meds are not right. PSYCHIATRIC ROS: Depression: Sad, tearful, poor motivation, little enjoyment with activities. Charlene: excessive spending, but denies gambling and promiscuity. Hx of abrupt job changes. No skilled nursing friendships d/t being quick to write them off. Psychosis: None reported or suspected SHIRLENE: Anxiety, worry, none global. Mind racing and focusing on the wrong things. Raping HR and RR. Sweaty at times. Fidgety OCD: Denies repetitive thoughts or actions PTSD: Denies abuse and trauma ROS SUBSTANCE ABUSE HISTORY: Alcohol: Social drinker Tobacco: Used to vape Marijuana: Never Illegal drug Use: Never PSYCHIATRIC HISTORY: Past Diagnoses: Anxiety, depression, ADHD, panic--originally diagnosed in 8th grade--significant increase after 911 Hospitalizations: Never--not admitted. Seen in ER in 2015 for panic attack Counseling history :Never Medication Trials: Adderall xr started 06/10, Abilify 15mg 02/07-ineffective, lamictal (09/08-06/10)Ineffective, Seroquel 100mg (05/09), Zoloft-becam ineffective overtime, Effexor-bugs crawling on me. Psychiatrist: Never Agency: Denies systems project manager: Denies Therapist: None Self harm: Denies Suicide attempts: Denies ECT: No TMS: No Ketamine infusions: No RATING SCALES: PHQ-9 PHQ-9 Score: 14 (07/15/2023 10:47 AM) (0-4) minimal depression, (5-9) mild depression, (10-14) moderate depression, (15-19) moderately severe depression, (20-27) severe depression SHIRLENE-7 SHIRLENE-7 Total Score: 17 (07/15/2023 10:50 AM) (0-4) minimal anxiety, (5-9) mild anxiety, (10-14) moderate anxiety, (15-21) severe anxiety [place] SUICIDE SEVERITY RATING SCALE 1.) Wish to be : Have you wished you were or wished you could go to sleep and not wake up? NO 2.) Suicidal Thoughts: Have you actually had any thoughts of killing yourself? NO 6.)Suicide Behavior Question: Have you ever done anything, started to do anything, or prepared to do anything to end your life?NO RISK LEVEL RISK/PROTECTIVE FACTOR SUICIDALITY POSSIBLE INTERVENTIONS High Psychiatric disorders with severe symptoms, or acute precipitating event; protective factors not relevant Potentially lethal suicide attempt or persistent ideation with strong intent or suicide rehearsal Admission generally indicated unless a significant change reduces risk. Suicide precautions Moderate Multiple risk factors, few protective factors Suicidal ideation with plan, but no intent or behavior Admission may be necessary depending on risk factors. Develop crisis plan. Give emergency/crisis numbers Low Modifiable risk factors, strong protective factors Thoughts of , no plan, intent or behavior Outpatient referral, symptom reduction. Give emergency/crisis numbers Risk level: mild FAMILY PSYCHIATRIC HX: None No family attempts or deaths by suicide SOCIAL HISTORY: Guardian: None Born and raised: Born in [place], parents stayed . She has a younger brother. Gets along well. Childhood: Good childhood. She states school was difficult, she was bullied. Grades were C-D range. In 11th grade to [employer]-grades were better. She lost her Grandfather when she was 2 and it greatly affects her. Abuse: Denies. Line drive to the forehead. 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 Financial support: She and Relationships: x1, 2015 Children: She has 3 yo boy , 7yo girl Living Situation: and kids Weapons: Denies Legal History: Denies Episcopal: Nothing that would interfere with care. Somatic complaints: Racing heart and respiratory rate. PAST MEDICAL HISTORY: PAST MEDICAL HISTORY Diagnosis Date Anemia Asthma PAST SURGICAL HISTORY Procedure Laterality Date NONE ALLERGIES Allergen Reactions Rocephin [Ceftriaxo* Anaphylaxis per pt mother was 3yo PCP: Donald Snowden, DO Current Outpatient Medications on File Prior to Visit Medication Sig blood sugar diagnostic (BLOOD GLUCOSE TEST) test strip Use as instructed to check blood glucose level one time daily montelukast (SINGULAIR) 10 mg tablet take 1 tablet by mouth every day amphetamine-dextroamphetamine XR (ADDERALL XR) 30 mg capsule Take 1 capsule by mouth once daily for 30 days. fluticasone-salmeterol (WIXELA INHUB) 250-50 mcg/dose inhaler Inhale 1 Puff as instructed two times a day. budesonide (PULMICORT) 0.5 mg/2 mL nebulizer solution Use 2 mL via nebulizer every 12 hours. Inhale over 5-15 minutes predniSONE (DELTASONE) 20 mg tablet 2 a day for 3 days fluticasone (FLONASE) 50 mcg/actuation nasal spray Use 1 [place] in each nostril once daily. lamoTRIgine (LAMICTAL) 25 mg tablet TAKE 1 TABLET BY MOUTH EVERYDAY AT BEDTIME citalopram (CELEXA) 40 mg tablet Take 1 tablet by mouth once daily. fluconazole (DIFLUCAN) 100 mg tablet Take 1 tablet by mouth once daily. amphetamine-dextroamphetamine XR (ADDERALL XR) 15 mg capsule Take 1 capsule by mouth once daily for 30 days. albuterol HFA (PROVENTIL HFA, VENTOLIN HFA) 90 mcg/actuation inhaler Inhale 2 Puffs as instructed every 4 hours as needed for wheezing/shortness of breath. Blood-Glucose Sensor (DEXCOM G6 SENSOR) mallika 1 Each once daily. Blood-Glucose Transmitter (DEXCOM G6 TRANSMITTER) mallika 1 Each once daily. metFORMIN ER (GLUCOPHAGE XR) 500 mg 24 hr tablet Take 1 tablet by mouth three times a day with meals. [DISCONTINUED] levalbuterol tartrate HFA 45 mcg/actuation inhaler Inhale 2 Puffs as instructed every 4 hours as needed for wheezing/shortness of breath. Blood-Glucose Meter,Continuous (DEXCOM G6 CEMETERY VAULT INSTALLER) misc 1 Each once daily. Lancets lancets Use as instructed Blood-Glucose Meter 1 Each once daily. ergocalciferol 50,000 unit capsule (VITAMIN D2, DRISDOL) Take 1 capsule by mouth one time a week. ferrous sulfate 325 mg (65 mg iron) tablet Take 1 tablet by mouth two times a day. albuterol (PROVENTIL) 2.5 mg /3 mL (0.083 %) nebulizer solution Use 3 mL via nebulizer every 4 hours as needed for wheezing/shortness of breath. Inhale by nebulizer over 5-15 minutes. albuterol HFA (PROAIR HFA) 90 mcg/actuation inhaler Inhale 2 Puffs as instructed every 6 hours as needed for wheezing/shortness of breath. mepolizumab (NUCALA) 100 mg injection Inject 100 mg subcutaneously every 4 weeks. Nebulizer and Compressor For Neb Use as directed FEXOFENADINE HCL (LAQUITA ALLERGY ORAL) Take by mouth once daily. No current facility-administered medications on file prior to visit. VITAL SIGNS: LMP 04/10/2023 (Exact Date) MENTAL STATUS EXAMINATION: Appearance: appears stated age, ,Female, well developed, well nourished, obese, casual clothing, grooming is Fair, Activity: restless, fidgety , Steady gait, good muscle tone, Per patient report d/t virtual appointment. Denies recent falls. Behavior: initially withdrawn/skeptical, eased. Preoccupied with passers by while she was parked in a car in a parking lot. , Fair eye contact, Speech: spontaneous , Rapid rate, Loud volume, Clear, Mood: Anxious, Depressed, Irritable, and Labile Affect: Expansive Thought Process: tangential Thought Content: vague initially, No suicidal ideation, intent or plan., No homicidal ideation, intent or plan., Vague Phobia's none Cognition: Orientation: Person, Place, Time and Situation Attention: Intact Concentration: Intact Language: Intact Estimated Intelligence: Fair Memory: Intact, recent and remot Abstraction: Intact Insight: fair Judgement: adequate LABS: Reviewed AIMS No data to display RISK ASSESSMENT: Discussed the risk and benefit of the medication, client demonstrates understanding. Discussed importance of the chosen treatment plan. Client agrees with the discussed plans and efforts to keep within the stated plan. PDMP website checked and validated. All prescriptions have been APPROPRIATELY filled. No suspicious activity was identified. 07/18/2023 by Chase Bazan APRN.ACCOUNTS PAYABLE ASSOCIATE PLAN: - Decrease Celexa to 20mg daily - Increase lamictal to 100mg daily - Start Latuda 60mg daily - Hold Adderall XR - OARRS report reviewed. - Explained to the patient risks, benefits, side effects of the medications. Risks and side effects explained but not limited to black box warning. The patient has the capacity and gives me informed consent for the medication. - Check yourself in the ER or call 911 for help if you have any suicidal or homicidal thoughts, or if not able to take care of self at home with supports. - Recommended healthy and balanced diet. - Recommended seeing a therapist. - Labs reviewed - Discussed the hazards of tobacco smoking (use). Smoking cessation recommended and techniques and options to help patient quit were discussed. - Discussed importance of regular exercise and recommended starting or continuing a regular exercise program for good health. I spent a total of 38 minutes on the date of service which included preparing to see the patient, [id number] patient care, completing clinical documentation, obtaining and/or reviewing separately obtained history, performing a midically appropriate examination, counseling and educating the patient/family/caregiver, and independently interpreting results (not separately reported). ASSESSMENT/PLAN: 1. Bipolar II disorder (HCC) - ICD9: 296.89, ICD10: F31.81 (primary diagnosis) - LURASIDONE 60 MG TABLET 2. Major depressive disorder, recurrent episode, moderate (HCC) - ICD9: 296.32, ICD10: F33.1 3. Generalized anxiety disorder - ICD9: 300.02, ICD10: F41.1 Patient understands and agrees with the treatment plan: Yes Return in about 4 weeks (around 08/15/2023) for 4pm virtualPenelope Bazan APRN.ACCOUNTS PAYABLE ASSOCIATE documented in this encounter [facility] 07-16-2023 Telephone encounter Note IRENE 05/21/23; nxt OV 08/26/23 Patient phones requesting refills as follows: Requested Prescriptions Pending Prescriptions Disp Refills montelukast (SINGULAIR) 10 mg tablet [Pharmacy Med Name: MONTELUKAST SOD 10 MG TABLET] 90 tablet 0 Sig: take 1 tablet by mouth every day Please review and advise. Jessica Michel LPN [facility] 07-16-2023 Miscellaneous Notes IRENE 05/21/23; nxt OV 08/26/23 Patient phones requesting refills as follows: Requested Prescriptions Pending Prescriptions Disp Refills montelukast (SINGULAIR) 10 mg tablet [Pharmacy Med Name: MONTELUKAST SOD 10 MG TABLET] 90 tablet 0 Sig: take 1 tablet by mouth every day Please review and advise. Jessica Michel LPN documented in this encounter [facility] 07-16-2023 Telephone encounter Note Pa for Nucala submitted to [facility] for review. [facility] 07-16-2023 Miscellaneous Notes Pa for Nucala submitted to [facility] for review. documented in this encounter [facility] 07-16-2023 Telephone encounter Note Requester: Pharmacy Patients last Endocrinology visit occurred 04/29/2023. Follow-up evaluation has been established Upcoming Endocrinology Appointments - Next 365 Days Visit Type Date Time Department [facility] 09/03/2023 12:00 PM ENDO [facility] PATIENT 11/06/2023 8:25 AM ENDO [facility] Requested Prescriptions Pending Prescriptions Disp Refills blood sugar diagnostic (BLOOD GLUCOSE TEST) test strip 100 Each 0 Sig: Use as instructed If patient is due for an appointment please route to provider for refill consideration and also to the endo scheduling pool. PSS NOTE: Patient needs scheduled appointment No SERGE Garcia [facility] 07-16-2023 Miscellaneous Notes Requester: Pharmacy Patients last Endocrinology visit occurred 04/29/2023. Follow-up evaluation has been established Upcoming Endocrinology Appointments - Next 365 Days Visit Type Date Time Department [facility] 09/03/2023 12:00 PM ENDO [facility] PATIENT 11/06/2023 8:25 AM ENDO [facility] Requested Prescriptions Pending Prescriptions Disp Refills blood sugar diagnostic (BLOOD GLUCOSE TEST) test strip 100 Each 0 Sig: Use as instructed If patient is due for an appointment please route to provider for refill consideration and also to the endo scheduling pool. PSS NOTE: Patient needs scheduled appointment No SERGE Garcia Prescription Refill Information The patient has been identified by name and date of : Yes Caregiver verified no other encounters exist for this prescription request: Yes Caregiver confirmed with patient/requestor that no other refills are due, in the near future, with this provider at this time: Yes The last office visit in the department: 04/29/23 Does the patient have a future office visit with this provider/department: Yes Requested Prescriptions Pending Prescriptions Disp Refills blood sugar diagnostic (BLOOD GLUCOSE TEST) test strip 100 Each 0 Sig: Use as instructed Annetta HERRERA July 15, 2023 4:42 PM documented in this encounter [facility] 07-15-2023 Telephone encounter Note Prescription Refill Information The patient has been identified by name and date of : Yes Caregiver verified no other encounters exist for this prescription request: Yes Caregiver confirmed with patient/requestor that no other refills are due, in the near future, with this provider at this time: Yes The last office visit in the department: 04/29/23 Does the patient have a future office visit with this provider/department: Yes Requested Prescriptions Pending Prescriptions Disp Refills blood sugar diagnostic (BLOOD GLUCOSE TEST) test strip 100 Each 0 Sig: Use as instructed Annetta Jaime PAC July 15, 2023 4:42 PM [facility] 06-30-2023 Telephone encounter Note IRENE: 04/29/2023 NOV: 09/03/2023 Patient is asking for a letter to state she needs 2 15 minute breaks a day to eat snacks. Please advise. Kimberly Nixon MA [facility] 06-30-2023 Miscellaneous Notes IRENE: 04/29/2023 NOV: 09/03/2023 Patient is asking for a letter to state she needs 2 15 minute breaks a day to eat snacks. Please advise. Kimberly Nixon MA documented in this encounter [facility] 06-26-2023 Telephone encounter Note Paged by patient for low blood sugar. CGM showing a reading of 69. Ate a carb heavy meal. Went upto 130s. Still feeling symptomatic with dizziness. Advised that CGM will lag by 15-20 min and use fingerstick instead. If BS>80, dizziness unlikely from low blood sugar. Advised to check q 1hr for next 2 hours to see if it drops. Advised to eat dinner and plenty of fluids for hydration. If symptoms persist or blood sugar keeps dropping advised to go to ER for further care. [facility] Work Phone: 06-26-2023 Miscellaneous Notes Paged by patient for low blood sugar. CGM showing a reading of 69. Ate a carb heavy meal. Went upto 130s. Still feeling symptomatic with dizziness. Advised that CGM will lag by 15-20 min and use fingerstick instead. If BS>80, dizziness unlikely from low blood sugar. Advised to check q 1hr for next 2 hours to see if it drops. Advised to eat dinner and plenty of fluids for hydration. If symptoms persist or blood sugar keeps dropping advised to go to ER for further care. documented in this encounter [facility] 06-20-2023 Telephone encounter Note Images from the original note were not included. Arlene Pittman [facility] Podiatry Pool 7 minutes ago (1:25 PM) Can you please write letter reporting patient is instructed to work no more than 5 days per week and 8 hours/ day Arlene Pittman DPM [facility] 06-20-2023 Miscellaneous Notes Images from the original note were not included. Arlene Pittman liza Podiatry Pool 7 minutes ago (1:25 PM) Can you please write letter reporting patient is instructed to work no more than 5 days per week and 8 hours/ day Arlene Pittman DPM documented in this encounter [facility] 06-18-2023 Telephone encounter Note Being handled in another encounter. Thank you, SERGE Garcia [facility] 06-18-2023 Miscellaneous Notes Being handled in another encounter. Thank you, SERGE Garcia Irvin is calling Dylan Topete MD today to request Letter for Work stating she can not work 10-12 hours per day, 7 days a week Patient has been identified by name and birthdate. Duration of symptoms: N/A Person calling: self Call patient at: at home [phone] (home) [phone] (cell) Was an appointment scheduled: No Closing statement: Symptom Call: Thank you for calling [facility], your call is very important. A nurse will call in approximately 2-4 hours during business hours. If this is an emergency, please contact 911. Melanie Coppola documented in this encounter [facility] 06-17-2023 Telephone encounter Note Irvin is calling Dylan Topete MD today to request Letter for Work stating she can not work 10-12 hours per day, 7 days a week Patient has been identified by name and birthdate. Duration of symptoms: N/A Person calling: self Call patient at: at home [phone] (home) [phone] (cell) Was an appointment scheduled: No Closing statement: Symptom Call: Thank you for calling [facility], your call is very important. A nurse will call in approximately 2-4 hours during business hours. If this is an emergency, please contact 911. Melanie Coppola [facility] 06-05-2023 History of Presen t illness Narrative Called pt Not sure why endo took off inhaled ICS, needs 3 days pred Resume ics Acth ok per pt documented in this encounter [facility] 06-04-2023 Telephone encounter Note Request was received by the Behavioral Health Outpatient Access team, from Irvin Kline ( ) to schedule within the ADHD clinic. Because the patient presents with additional psychatric concerns other than ADHD (specifically anxiety and panic), a message has been routed to Estrella Dias within the ADHD clinic for review prior to scheduling. Patient has been informed of the following: -Availability within this program is very limited -Review can take up to 3-4 weeks, at which time the patient will be contacted regarding the outcome. -If the patient is not a candidate, they will be provided with resources within [facility] [place]. -If the patient is a candidate to be scheduled, their initial appointment will be an in-person evaluation that will determine course of treatment, which may include individual visits, group visits, or a recommendation to seek care outside of [facility]. There is no guarantee that medications will be prescribed at this visit. [facility] 06-04-2023 Miscellaneous Notes Request was received by the Behavioral Health Outpatient Access team, from Irvin Kline ( ) to schedule within the ADHD clinic. Because the patient presents with additional psychatric concerns other than ADHD (specifically anxiety and panic), a message has been routed to Estrella Dias within the ADHD clinic for review prior to scheduling. Patient has been informed of the following: -Availability within this program is very limited -Review can take up to 3-4 weeks, at which time the patient will be contacted regarding the outcome. -If the patient is not a candidate, they will be provided with resources within [facility] [place]. -If the patient is a candidate to be scheduled, their initial appointment will be an in-person evaluation that will determine course of treatment, which may include individual visits, group visits, or a recommendation to seek care outside of [facility]. There is no guarantee that medications will be prescribed at this visit. documented in this encounter [facility] 05-28-2023 Miscellaneous Notes We re pleased to let you know that we ve approved your or your doctor s request for coverage for Amphetamine-Dextroamphet ER 15MG OR CP24. You can now fill your prescription, and it will be covered according to your plan. documented in this encounter [facility] 05-28-2023 Miscellaneous Notes Message send via [employer] for patient. Misty Martínez RN May 28, 2023 8:19 AM The report shows 97% in range Most of her readings are low-normal but similar I don't see large variations (high, then low, etc) Tamiflu is a short-lived medication, so if this is exacerbating low blood sugars, it should end soon enough If hypoglycemia seems worse after starting Adderall, then consider stopping this. Low glucose is typically exacerbated by eating carbohydrates - especially simple (processed, non-fiber containing) carbohydrates Please avoid this & make sure to take metformin with food as we previously discussed See general dietary recommendations below. If these interventions are not working, please keep a food diary so the situation can be further analyzed. Thanks, Dylan Topete MD Endocrinology, Diabetes, & Metabolism May 27, 2023 6:25 PM The following lifestyle modifications are advisable to reduce the frequency & severity low blood sugar episodes: Plan to eat 5-6 small meals/day - no more than 2-4 hours between meals Eat no more than 30 grams of total carbohydrate per meal Limit your total daily intake of total carbohydrates to 180 grams or less Avoid/limit eating carbohydrates that have no fiber (these are simple carbs) Avoid/limit drinking your carbohydrates (juice, pop; limit sugar in coffee or tea) Do not eat carbohydrates alone - without including protein and/or fat Images from the original note were not included. Called and spoke with patient who states she is having more frequent lows since being sick and starting on TAMIFLU, she states that she has also recently started on ADDERALL. She states that no matter what she's eating she can't keep it up. She corrected with glucose tabs and also a snack, but it still didn't stay up. Please see trends below. Patient is calling, she is having trouble keeping her sugars up. They are plummeting. Please call. [phone] Images from the original note were not included. IRENE- NOV- Patient states her blood sugars have been increasing even when she does not eat. Please review and advise. Thank you, SERGE Garcia documented in this encounter [facility] 05-23-2023 History of Presen t illness Narrative Express Care Note CC. I have been having black stools for months and I have been exposed to influenza a and I have been coughing a lot HPI this is a normally healthy 33-year-old female who presents today complaining of back stools that have been ongoing for several months. She states that her primary care physician advised her to bring a stool specimen to his office and instead patient chose to bring it to the express care facility. She is also complaining of a cough and drainage with recent exposure to influenza A. She states she has had symptoms for about a day and a half. She presents alone today for evaluation. Review of Systems Constitutional: Negative. HENT: Drainage Eyes: Negative Respiratory: Cough. Cardiovascular: Negative. Gastrointestinal: Negative. Genitourinary- Negative Musculoskeletal Negative Allergy- Negative Neurological Negative Skin- Negative Objective Physical Exam I have reviewed this patient's vital signs at the time of evaluation. Temperature 99.5 noted and discussed Constitutional: General: Patient is active. Patient appears to be be well-hydrated, mucous membranes are moist. Appearance: Normal appearance. Well developed, polite and cooperative to examiner. No obvious distress noted presently. HENT: Head: Normocephalic and atraumatic. Ears: Normal external exam, no obvious discharge Nose: Nose normal. Appearance. No obvious obstruction or epistaxis presently. Mouth/Throat: Mouth: Mucous membranes are moist. Pharynx: Green oropharyngeal drainage Eyes: Sclerra white bilaterally. No injection No obvious discharge noted Normal bilateral ocular movement. Cardiovascular- Regular rate, rhythm. No murmurs, clicks Pulmonary- Breath sounds are clear on examination. Bilateral throughout. Abdominal: General: Abdomen is flat. nondistended Palpations: Abdomen is soft. Nontender Genitourinary- Not examined at this visit Musculoskeletal: Normal range of motion throughout Neck- Supple, free of masses Skin: General: Skin is warm and dry. No obvious rashes. Normal turgor Neurological: Mental Status: Alrt, oriented Assessment and Plan- Viral URI with cough I have discussed patient's stool concerns with her. I have no stool testing capabilities at this facility and have advised the patient that should she develop any concerning symptomology she should be seen in the emergency department and should also follow-up with her primary care physician as black stools over several months can be very concerning. COVID/influenza/RSV swab is pending. I have given patient information on results retrieval. Based on patient's complaint, presentation and physical examination I have a strong suspicion for influenza at this time. Due to the fact that we are in the time window, I have opted to begin this patient on Tamiflu therapy. I have discussed this with the patient and the patient agrees to check MyChart results, and discontinue Tamiflu therapy if they are not positive for influenza. I have also given this patient a prescription for Flonase as well as a work slip. This note has been written utilizing [employer]. Although it has been reviewed for any errors. Iglesia Stevenson PA-C documented in this encounter [facility] 05-22-2023 Miscellaneous Notes Patient contacted I called in the antibiotics and the cough syrup, should help with her sx, can do otc claritin or zyrtec for the congestion Seen yesterday by Dr Figueredo wanting something called in for congestion and eye swelling documented in this encounter [facility] 05-21-2023 History of Presen t illness Narrative The history is provided by the patient. Fatigue This is a new problem. The current episode started more than 1 month ago. The problem occurs every several days. The problem has been gradually worsening. Associated symptoms include congestion, coughing and fatigue. Anxiety Pertinent negatives include no agitation, confusion, delusions, hallucinations or self-injury. This is a recurrent problem. The current episode started more than 1 month ago. The problem has been gradually improving since onset. Depression Pertinent negatives include no agitation, confusion, delusions, hallucinations or self-injury. This is a recurrent problem. The current episode started more than 1 month ago. The problem has been gradually improving since onset. Cough This is a new problem. The current episode started more than 2 days ago. The problem has been gradually worsening. The cough is Productive of sputum. Associated symptoms include ear pain and rhinorrhea. PAST MEDICAL HISTORY Diagnosis Date Anemia Asthma PAST SURGICAL HISTORY Procedure Laterality Date NONE Social History Tobacco Use Smoking status: Never Smokeless tobacco: Never Vaping Use Vaping Use: Never used Substance Use Topics Alcohol use: Yes Comment: social Drug use: No ALLERGIES: ALLERGIES Allergen Reactions Rocephin [Ceftriaxo* Anaphylaxis per pt mother was 3yo MEDICATIONS albuterol HFA (PROVENTIL HFA, VENTOLIN HFA) 90 mcg/actuation inhaler Inhale 2 Puffs as instructed every 4 hours as needed for wheezing/shortness of breath. Blood-Glucose Sensor (DEXCOM G6 SENSOR) mallika 1 Each once daily. Blood-Glucose Transmitter (DEXCOM G6 TRANSMITTER) mallika 1 Each once daily. metFORMIN ER (GLUCOPHAGE XR) 500 mg 24 hr tablet Take 1 tablet by mouth three times a day with meals. Blood-Glucose Meter,Continuous (DEXCOM G6 CEMETERY VAULT INSTALLER) misc 1 Each once daily. montelukast (SINGULAIR) 10 mg tablet take 1 tablet by mouth every day hydrocortisone (CORTEF) 5 mg tablet Take 3 tablets by mouth once daily. blood sugar diagnostic (BLOOD GLUCOSE TEST) test strip Use as instructed Lancets lancets Use as instructed Blood-Glucose Meter 1 Each once daily. ergocalciferol 50,000 unit capsule (VITAMIN D2, DRISDOL) Take 1 capsule by mouth one time a week. ferrous sulfate 325 mg (65 mg iron) tablet Take 1 tablet by mouth two times a day. lamoTRIgine (LAMICTAL) 25 mg tablet take 1 tablet by mouth everyday at bedtime citalopram (CELEXA) 40 mg tablet Take 1 tablet by mouth once daily. albuterol (PROVENTIL) 2.5 mg /3 mL (0.083 %) nebulizer solution Use 3 mL via nebulizer every 4 hours as needed for wheezing/shortness of breath. Inhale by nebulizer over 5-15 minutes. albuterol HFA (PROAIR HFA) 90 mcg/actuation inhaler Inhale 2 Puffs as instructed every 6 hours as needed for wheezing/shortness of breath. mepolizumab (NUCALA) 100 mg injection Inject 100 mg subcutaneously every 4 weeks. Nebulizer and Compressor For Neb Use as directed FEXOFENADINE HCL (LAQUITA ALLERGY ORAL) Take by mouth once daily. [DISCONTINUED] levalbuterol tartrate HFA 45 mcg/actuation inhaler Inhale 2 Puffs as instructed every 4 hours as needed for wheezing/shortness of breath. FAMILY HISTORY Problem Relation Age of Onset Heart Attack Maternal Grandfather REVIEW OF SYSTEMS Review of Systems Constitutional: Positive for fatigue and malaise/fatigue. HENT: Positive for congestion, ear pain, postnasal drip, rhinorrhea, sinus pressure, sinus pain and sneezing. Respiratory: Positive for cough. Cardiovascular: Negative. Gastrointestinal: Negative. Psychiatric/Behavioral: Positive for decreased concentration, depression and dysphoric mood. Negative for agitation, confusion, hallucinations and self-injury. The patient is nervous/anxious. All other systems reviewed and are negative. PHYSICAL EXAM: BP 122/70 (BP Site: Right Arm) Pulse 80 Temp 37.1 C (98.7 F) Resp 16 Wt 125 kg (275 lb 9.2 oz) LMP 04/10/2023 (Exact Date) SpO2 98% BMI 47.30 kg/m Physical Exam Vitals and nursing note reviewed. Constitutional: Appearance: She is well-developed. HENT: Head: Normocephalic and atraumatic. Right Ear: External ear normal. Tympanic membrane is bulging. Left Ear: External ear normal. Tympanic membrane is bulging. Nose: Rhinorrhea present. Right Sinus: Maxillary sinus tenderness and frontal sinus tenderness present. Left Sinus: Maxillary sinus tenderness and frontal sinus tenderness present. Eyes: Conjunctiva/sclera: Conjunctivae normal. Pupils: Pupils are equal, round, and reactive to light. Cardiovascular: Rate and Rhythm: Normal rate and regular rhythm. Pulmonary: Effort: Pulmonary effort is normal. Breath sounds: Normal breath sounds. Abdominal: General: Bowel sounds are normal. Palpations: Abdomen is soft. Musculoskeletal: General: Normal range of motion. Cervical back: Normal range of motion and neck supple. Skin: General: Skin is warm and dry. Neurological: Mental Status: She is alert. Psychiatric: Attention and Perception: She is inattentive. Mood and Affect: Mood is anxious and depressed. ASSESSMENT/PLAN: 1. Anxiety with depression - ICD9: 300.4, ICD10: F41.8 (primary diagnosis) Cont current regimen 2. Acute non-recurrent maxillary sinusitis - ICD9: 461.0, ICD10: J01.00 - Will begin treatment with as per antibiotic as written, see orders 3. Attention deficit hyperactivity disorder (ADHD), predominantly inattentive type - ICD9: 314.00, ICD10: F90.0 Start at a mid dosage, having inattentive sx, forgetfulness, lack of attn to details - DEXTROAMPHETAMINE-AMPHETAMINE ER 15 MG 24HR CAPSULE,EXTEND RELEASE Donald Snowden DO documented in this encounter [facility] 05-20-2023 History of Presen t illness Narrative This note was created using [employer]. Subjective Irvin Kline is a 33 year old female. 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 Review of Systems Constitutional: Negative for appetite change, chills, diaphoresis, fatigue and fever. HENT: Negative for congestion and tinnitus. Eyes: Negative for photophobia and visual disturbance. Respiratory: Positive for chest tightness. Negative for cough, shortness of breath and wheezing. Cardiovascular: Negative for chest pain, palpitations and leg swelling. Gastrointestinal: Negative. Genitourinary: Negative. Musculoskeletal: Negative for myalgias. Skin: Negative for rash. Neurological: Negative for dizziness, syncope, weakness, light-headedness, numbness and headaches. Psychiatric/Behavioral: Negative for dysphoric mood, self-injury, sleep disturbance and suicidal ideas. The patient is not nervous/anxious. All other systems reviewed and are negative. Objective BP 115/76 Pulse 64 Temp 36.8 C (98.2 F) Ht 162.6 cm (5' 4) Wt 125.7 kg (277 lb 1.9 oz) LMP 04/10/2023 (Exact Date) SpO2 97% BMI 47.57 kg/m PAST MEDICAL HISTORY Diagnosis Date Anemia Asthma PAST SURGICAL HISTORY Procedure Laterality Date NONE Current Outpatient Medications on File Prior to Visit Medication Sig albuterol HFA (PROVENTIL HFA, VENTOLIN HFA) 90 mcg/actuation inhaler Inhale 2 Puffs as instructed every 4 hours as needed for wheezing/shortness of breath. Blood-Glucose Sensor (DEXCOM G6 SENSOR) mallika 1 Each once daily. Blood-Glucose Transmitter (DEXCOM G6 TRANSMITTER) mallika 1 Each once daily. metFORMIN ER (GLUCOPHAGE XR) 500 mg 24 hr tablet Take 1 tablet by mouth three times a day with meals. Blood-Glucose Meter,Continuous (DEXCOM G6 CEMETERY VAULT INSTALLER) misc 1 Each once daily. montelukast (SINGULAIR) 10 mg tablet take 1 tablet by mouth every day hydrocortisone (CORTEF) 5 mg tablet Take 3 tablets by mouth once daily. blood sugar diagnostic (BLOOD GLUCOSE TEST) test strip Use as instructed Lancets lancets Use as instructed Blood-Glucose Meter 1 Each once daily. ergocalciferol 50,000 unit capsule (VITAMIN D2, DRISDOL) Take 1 capsule by mouth one time a week. ferrous sulfate 325 mg (65 mg iron) tablet Take 1 tablet by mouth two times a day. lamoTRIgine (LAMICTAL) 25 mg tablet take 1 tablet by mouth everyday at bedtime citalopram (CELEXA) 40 mg tablet Take 1 tablet by mouth once daily. albuterol (PROVENTIL) 2.5 mg /3 mL (0.083 %) nebulizer solution Use 3 mL via nebulizer every 4 hours as needed for wheezing/shortness of breath. Inhale by nebulizer over 5-15 minutes. albuterol HFA (PROAIR HFA) 90 mcg/actuation inhaler Inhale 2 Puffs as instructed every 6 hours as needed for wheezing/shortness of breath. mepolizumab (NUCALA) 100 mg injection Inject 100 mg subcutaneously every 4 weeks. Nebulizer and Compressor For Neb Use as directed FEXOFENADINE HCL (LAQUITA ALLERGY ORAL) Take by mouth once daily. [DISCONTINUED] levalbuterol tartrate HFA 45 mcg/actuation inhaler Inhale 2 Puffs as instructed every 4 hours as needed for wheezing/shortness of breath. No current facility-administered medications on file prior to visit. ALLERGIES Allergen Reactions Rocephin [Ceftriaxo* Anaphylaxis per pt mother was 3yo Physical Exam Vitals and nursing note reviewed. Constitutional: General: She is awake. She is not in acute distress. Appearance: Normal appearance. She is well-developed and well-groomed. She is morbidly obese. She is not ill-appearing. HENT: Head: Normocephalic. Eyes: Conjunctiva/sclera: Conjunctivae normal. Pupils: Pupils are equal, round, and reactive to light. Cardiovascular: Rate and Rhythm: Normal rate and regular rhythm. Pulses: Normal pulses. Heart sounds: Normal heart sounds. Pulmonary: Effort: Pulmonary effort is normal. No respiratory distress. Breath sounds: Normal breath sounds. Decreased air movement present. No decreased breath sounds, wheezing or rhonchi. Musculoskeletal: General: No swelling, tenderness or signs of injury. Normal range of motion. Cervical back: Full passive range of motion without pain, normal range of motion and neck supple. Right lower leg: No edema. Left lower leg: No edema. Lymphadenopathy: Cervical: No cervical adenopathy. Skin: General: Skin is warm and dry. Capillary Refill: Capillary refill takes less than 2 seconds. Findings: No rash. Neurological: General: No focal deficit present. Mental Status: She is alert and oriented to person, place, and time. Mental status is at baseline. Cranial Nerves: No cranial nerve deficit. Sensory: Sensation is intact. No sensory deficit. Motor: Motor function is intact. No weakness. Coordination: Coordination is intact. Gait: Gait is intact. Gait normal. Psychiatric: Attention and Perception: Attention and perception normal. Mood and Affect: Mood and affect normal. Speech: Speech normal. Behavior: Behavior normal. Behavior is cooperative. Thought Content: Thought content normal. Thought content does not include homicidal or suicidal ideation. Cognition and Memory: Cognition and memory normal. Judgment: Judgment normal. ASSESSMENT/PLAN: 1. Mild intermittent asthma, uncomplicated - ICD9: 493.90, ICD10: J45.20 - will cotton picker operator proair today - Avoidance of triggers recommended Follow up with Dr. Snowden tomorrow, as needed or sooner if new or worsening symptoms. Krystle Espinoza APRN.ACCOUNT[employer] PAYABLE ASSOCIATE documented in this encounter [facility] 05-19-2023 History of Presen t illness Narrative Images from the original note were not included. FOLLOW UP PODIATRIC OFFICE VISIT Chief Complaint: This 33 year old who presents for follow up:right ankle instability Patient presents to clinic for evaluation of right ankle Has history of right ankle instability Has been doing therapy and notes that she is about 25% improved Did miss some therapy because she was admitted to the hospital with reactive hypoglycemia. Continues with ankle brace PAIN EVALUATION 05/17/20232007 Pain Level: 2 Pain Location: Ankle-Right Description: Sore;Stiffness Frequency: Intermittent Intervention/Comfort measure: Medication;Cold Hemoglobin A1C Date Value Ref Range Status 04/10/2023 5.1 4.3 - 5.6 % Final Comment: [place] [employer] guidelines indicate that patients with HgbA1c in the range 5.7-6.4% are at increased risk for development of diabetes, and intervention by lifestyle modification may be beneficial. HgbA1c greater or equal to 6.5% is considered diagnostic of diabetes. PCP: Donald Snowden DO PAST MEDICAL HISTORY Diagnosis Date Anemia Asthma Current Outpatient Medications Medication Sig albuterol HFA (PROVENTIL HFA, VENTOLIN HFA) 90 mcg/actuation inhaler Inhale 2 Puffs as instructed every 4 hours as needed for wheezing/shortness of breath. Blood-Glucose Sensor (DEXCOM G6 SENSOR) mallika 1 Each once daily. Blood-Glucose Transmitter (DEXCOM G6 TRANSMITTER) mallika 1 Each once daily. metFORMIN ER (GLUCOPHAGE XR) 500 mg 24 hr tablet Take 1 tablet by mouth three times a day with meals. Blood-Glucose Meter,Continuous (DEXCOM G6 CEMETERY VAULT INSTALLER) misc 1 Each once daily. montelukast (SINGULAIR) 10 mg tablet take 1 tablet by mouth every day hydrocortisone (CORTEF) 5 mg tablet Take 3 tablets by mouth once daily. blood sugar diagnostic (BLOOD GLUCOSE TEST) test strip Use as instructed Lancets lancets Use as instructed Blood-Glucose Meter 1 Each once daily. ergocalciferol 50,000 unit capsule (VITAMIN D2, DRISDOL) Take 1 capsule by mouth one time a week. ferrous sulfate 325 mg (65 mg iron) tablet Take 1 tablet by mouth two times a day. lamoTRIgine (LAMICTAL) 25 mg tablet take 1 tablet by mouth everyday at bedtime citalopram (CELEXA) 40 mg tablet Take 1 tablet by mouth once daily. albuterol (PROVENTIL) 2.5 mg /3 mL (0.083 %) nebulizer solution Use 3 mL via nebulizer every 4 hours as needed for wheezing/shortness of breath. Inhale by nebulizer over 5-15 minutes. albuterol HFA (PROAIR HFA) 90 mcg/actuation inhaler Inhale 2 Puffs as instructed every 6 hours as needed for wheezing/shortness of breath. mepolizumab (NUCALA) 100 mg injection Inject 100 mg subcutaneously every 4 weeks. Nebulizer and Compressor For Neb Use as directed FEXOFENADINE HCL (LAQUITA ALLERGY ORAL) Take by mouth once daily. No current facility-administered medications for this visit. ALLERGIES Allergen Reactions Rocephin [Ceftriaxo* Anaphylaxis per pt mother was 3yo No past surgical history on file. Physical Exam: OBJECTIVE: Constitutional: Pt is a well developed 33 year old female who is alert, oriented, cooperative and in no apparent distress. Eyes: Following during examination. No redness or drainage. Respiratory: RR normal and nonlabored. Even breathing. No evidence of distress. Psychology: Patient is engaged during conversation. Normal affect and mood. Does not appear depressed or anxious. NVSI unchanged from previous visit. Dermatological: Nails 1-5 b/l are normal. Webspaces clean and dry 1-4 b/l. Skin appears well hydrated and supple. good color, texture, turgor. No open lesions present. No callosities present. Musculoskeletal/Orthopaedic: Patient has no pain to palpation of right ankle No laxity with anterior drawer b/l ASSESSMENT: (M25.371) Right ankle instability (primary encounter diagnosis) PLAN: Discussed right ankle instability. Per patient, she is improving. Continue with therapy as needed Continue with ankle brace as needed F/u prn Arlene Pittman DPM AMB ROOMING INTAKE FLOWSHEET DATA Pain Pain Level: 2 Pain Location: Ankle-Right Description: Sore, Stiffness Frequency: Intermittent Intervention/Comfort measure: Medication, Cold Patient presents with: Right Ankle - Follow Up, Pain documented in this encounter [facility] 05-12-2023 Miscellaneous Notes Pharmacy comment: Product Backordered/Unavailable:RESIDENTIAL BACKORDER. Please order alternative documented in this encounter [facility] 05-08-2023 History of Presen t illness Narrative Program_ID:[id number] Access Code: [email or web address] URL: [email or web address] Date: 05-08-2023 Prepared By: Nuria Tobin Program Notes Exercises - Towel Scrunches - 1 x daily - 7 x weekly - 2 sets - 10 reps - Toe Yoga - Alternating Great Toe and Lesser Toe Extension - 1 x daily - 7 x weekly - 2 sets - 10 reps - Long Sitting Calf Stretch with Strap - 1 x daily - 7 x weekly - 2 sets - 2 reps - Gastroc Stretch on Wall - 1 x daily - 7 x weekly - 4 sets - reps - Long Sitting Ankle Eversion with Resistance - 1 x daily - 7 x weekly - 3 sets - 10 reps - Long Sitting Ankle Plantar Flexion with Resistance - 1 x daily - 7 x weekly - 3 sets - 10 reps - Long Sitting Ankle Inversion with Resistance - 1 x daily - 7 x weekly - 3 sets - 10 reps - Long Sitting Ankle Dorsiflexion with Anchored Resistance - 1 x daily - 7 x weekly - 3 sets - 10 reps - Sidelying Hip Abduction - 1 x daily - 7 x weekly - 4 sets - 10 reps Images from the original note were not included. Episode Visit Count: 6 Therapist That Will Accept/Oversee The Plan Of Care: Jamey Gardner PT Start of Care Date: 03/17/23 Onset Date: 03/17/21 Patient Identified by Name and Date of : Yes REHABILITATION AND SPORTS THERAPY PHYSICAL THERAPY PROGRESS REPORT PLAN OF CARE UPDATE: Assessment: Irvin Kline demonstrates difficulty with walking in the community and working and improvements in improved muscular strength and endurance, decreased pain with work duties, and improved ankle ROM. She has progressed toward goals. Patient continues to present with impairments in range of motion, strength, and tissue tenderness that interfere with rising from a chair, walking . Current prognosis is Good due to: current objective clinical presentation . She will benefit from continued skilled therapy services to meet the updated goals for this plan of care as noted below. Goals updated 05/08/2023 Goals for Episode of Care: created on 03/17/23 through 06/09/23 [place] in home exercise program. - Met so far Normal gait. - Not assessed Increase ankle strength to a 4+/5 or greater in 12 weeks or less for improved ankle stability when walking - Progressing, will continue Pt will demo R ankle DF ROM equal to that of the opposite leg for improved gait mechanics- Progressing, will continue Pt will report decreased pain with work duties in 8 weeks or less - Met so far Patient Goals: Decrease pain Patient Goals: Decrease pain Planned Interventions, Frequency, and Duration: 1x/week, 4 weeks Total Number of Visits Planned: 4 Patient to be seen for Therapeutic exercise (28474), Neuromuscular re-education (77108), Manual therapy (21973), Therapeutic activities (49222), Self-prison management (29662), Gait Training (97684), Patient/Family/Caregiver Education PLAN FOR NEXT VISIT: Ankle strengthening as tolerated. SL stance, side-stepping, weighted at ankle with april. SUBJECTIVE: Has reactive hypoglycemia. Was in the hospital for this. The ankle was doing better. Gotten worse now but better than the beginning of therapy. Was going down the steps yesterday and it almost gave out. Has not been able to do the exercises since the beginning of mar.. Patient Goals: Decrease pain Functional Limitations: rising from a chair, walking Prior Level of Function: Independent without limitations Intake Information: Prescription present Previous Treatment: Immobilizer/brace , Surgery Pain: Pain Pain Level: 0 (But I have not worked since yesterday at 2:30 pm) Pain Location: Ankle - Right Post Treatment Pain Post Treatment Pain Level: No Change Post Treatment Pain Location: Ankle - Right PROMIS Scales 05/08/2023 03/15/2023 Higher is Better Phys Func - Score 43 (mild dysfunction) 45 (within normal limits) Phys Func - Percentile 24 31 Self-Eff Symptom - Score 44 (Average) 41 (Average) Self-Eff Symptom - Percentile 27 18 T-scores: mean of general population = 50. 5 points is clinically meaningfully difference Percentiles provide an indication of how the patient's score ranks in relation to the general population. Higher percentile rankings indicate better function/quality of life. 50th percentile is the average of the general population and indicates half of respondents had a worse score. OBJECTIVE MEASURES WITH LEVEL OF FUNCTION: Ankle Observations R Ankle Palpation Tenderness: Anterior talofibular ligament LE AROM R Ankle Dorsiflexion: 7 Degrees LE Flexibility Flexibility: Gastrocnemius Flexibility R Gastrocnemius Flexibility: tight L Gastrocnemius Flexibility: mildly tight LE Strength R Ankle Dorsiflexion (L4): 4-/5 R Ankle Plantar Flexion: 4-/5 R Ankle Inversion: 3+/5 R Ankle Eversion: 3/5 TREATMENT: Therapeutic Exercise: 1: All objective measures taken this session 2: Discussed continuation of the current HEP with a few new additions. HEP handout printed off for pt. 3: pink TB around forefeet with side-stepping to fatigue x 3 4: Runnder stretch standing on wall was discussed and given for home Skilled Intervention: Patient was educated in proper exercise technique and purpose for exercises. Provided written instruction for home exercise program to facilitate proper performance and compliance. Correct performance of therapeutic exercises was facilitated with verbal and visual cuing. Billing Therapeutic Exercise Treatment Minutes: 28 Skilled Treatment Time Minutes (timed and untimed codes): 28 Total Session Time (minutes): 28 Session Start Time : 839 Session Stop Time : 907 Pt arrived 7 min late to this appointment Jamey Gardner PT documented in this encounter [facility] 04-30-2023 Miscellaneous Notes IRENE: 04/29/2023 Patient states she gets a headache if she doesn't drink 2 cans of soda a day. Does she need to cut this completely? Please advise. Kimberly Nixon MA documented in this encounter [facility] 04-29-[address] returned pt phone call however, no answer. RD left voicemail for pt to return call. Mera Varela RD April 29, 2023 4:10 PM documented in this encounter [facility] 04-29-2023 Instructions Dylan Topete MD - 04/29/2023 3:52 PM EDT The following lifestyle modifications are advisable to reduce the frequency & severity low blood sugar episodes: Plan to eat 5-6 small meals/day - no more than 2-4 hours between meals Eat no more than 30 grams of total carbohydrate per meal Limit your total daily intake of total carbohydrates to 180 grams or less Avoid/limit eating carbohydrates that have no fiber (these are simple carbs) Avoid/limit drinking your carbohydrates (juice, pop; limit sugar in coffee or tea) Do not eat carbohydrates alone - without including protein and/or fat Start metformin ER 500 mg tablets Begin with 1 tablet daily with breakfast If no GI upset (bloating, loose bowel movements, or frequent bowel movements) after 3 days & if low glucose readings continue, then change to 1 tablet 2 times daily with food. You can repeat the process as needed - up to 3 times daily with food After 2 weeks of starting metformin, begin to wean hydrocortisone as follows: Take 10 mg (2 tablets) daily X 1 week, Then take 5 mg daily X 1 week, Then stop Follow up in 3 months - or soonest thereafter - with Jennifer Linares APRN.ACCOUNTS PAYABLE ASSOCIATE Follow up in 6 months with me documented in this encounter [facility] 04-29-2023 History of Presen t illness Narrative Subjective: Irvin Kline presents for a follow-up visit. Answers submitted by the patient for this visit: Endocrine Review of Systems (Submitted on 04/28/2023) Fatigue: Yes Night sweats: No Recent unintentional weight change: No Skin Color Changes: No Post-Nasal Drip: No Thyroid Pain (lower neck): No Trouble Swallowing: No Vision Disturbance: No Chest pain: No Leg Swelling: No Blood Clots?: No Leg Pain while walking?: No Difficulty Breathing?: No Heartburn: No Nausea: No Vomiting: No Diarrhea: No Constipation: No Abdominal pain: Yes Bone Pain?: No Muscle aches: Yes Muscle weakness: Yes Joint pain or stiffness: Yes Headaches: No Dizziness: No Numbness?: No Urgency to Urinate?: No Increased Urination: Yes Slow or Small Urine Stream?: No Are your menstrual cycles regular?: Yes Are your menstrual cycles irregular?: No Have your menstrual cycles stopped?: No Flushing: No Hot Flashes?: Yes Increased Thirst: Yes Change in Body Hair?: No Cold Intolerance: No Heat Intolerance: No Clinical information regarding need for a continuous glucose monitor (CGM): Irvin Kline has unexplained hypoglycemia; episodes occur multiple times per day & she has hypoglycemia unawareness Blood glucose log reviewed. She is USING THE CGM DEVICE TO MONITOR BLOOD GLUCOSE continuously 24 hours per day. She has done this for a 60-day period. Irvin is using this information to identify falling blood sugar levels and treat them with dietary interventions. Irvin will follow up every 3-6 months with me. I recommend a CGM for her to improve safety & avoid severe hypoglycemic episodes requiring ED visits and hospitalization. It is a medical necessity for this patient to have a therapeutic CGM. Current Outpatient Medications Medication Sig Blood-Glucose Transmitter (DEXCOM G6 TRANSMITTER) mallika 1 Each once daily. levalbuterol tartrate HFA 45 mcg/actuation inhaler Inhale 2 Puffs as instructed every 4 hours as needed for wheezing/shortness of breath. Blood-Glucose Meter,Continuous (DEXCOM G6 CEMETERY VAULT INSTALLER) misc 1 Each once daily. Blood-Glucose Sensor (DEXCOM G6 SENSOR) mallika 1 Each once daily. montelukast (SINGULAIR) 10 mg tablet take 1 tablet by mouth every day flash glucose sensor (FREESTYLE JENNY 2 SENSOR) kit 1 Each once daily. flash glucose scanning reader (FREESTYLE JENNY 2 READER) 1 Each once daily. hydrocortisone (CORTEF) 5 mg tablet Take 3 tablets by mouth once daily. blood sugar diagnostic (BLOOD GLUCOSE TEST) test strip Use as instructed Lancets lancets Use as instructed Blood-Glucose Meter 1 Each once daily. ergocalciferol 50,000 unit capsule (VITAMIN D2, DRISDOL) Take 1 capsule by mouth one time a week. ferrous sulfate 325 mg (65 mg iron) tablet Take 1 tablet by mouth two times a day. lamoTRIgine (LAMICTAL) 25 mg tablet take 1 tablet by mouth everyday at bedtime budesonide (PULMICORT) 0.5 mg/2 mL nebulizer solution USE 2 ML VIA NEBULIZER EVERY 12 HOURS. INHALE OVER 5-15 MINUTES citalopram (CELEXA) 40 mg tablet Take 1 tablet by mouth once daily. budesonide-formoterol (SYMBICORT) 160-4.5 mcg/actuation inhaler Inhale 2 Puffs as instructed two times a day. albuterol (PROVENTIL) 2.5 mg /3 mL (0.083 %) nebulizer solution Use 3 mL via nebulizer every 4 hours as needed for wheezing/shortness of breath. Inhale by nebulizer over 5-15 minutes. albuterol HFA (PROAIR HFA) 90 mcg/actuation inhaler Inhale 2 Puffs as instructed every 6 hours as needed for wheezing/shortness of breath. mepolizumab (NUCALA) 100 mg injection Inject 100 mg subcutaneously every 4 weeks. Nebulizer and Compressor For Neb Use as directed FEXOFENADINE HCL (LAQUITA ALLERGY ORAL) Take by mouth once daily. No current facility-administered medications for this visit. Objective: BP 130/70 Pulse 76 Wt 125 kg (275 lb 9.2 oz) LMP 04/10/2023 (Exact Date) No BMI 47.30 kg/m BMI 47.30 kg/(m^2) Assessment & Plan: (E16.2) Hypoglycemia (primary encounter diagnosis) (R79.89) Low serum cortisol level (E66.01, Z68.42) Class 3 severe obesity due to excess calories with serious comorbidity and body mass index (BMI) of 45.0 to 49.9 in adult (HCC) This is our first visit Irvin has been seen by a provider within our group within the past 3 years Hence this is considered a follow-up visit She is most likely experiencing reactive hypoglycemia However, it is more dangerous in that it is happening multiple times per day and she has no symptoms of hypoglycemia She had a hypoglycemic episode during the visit; she was given crackers, peanut butter, and water; her glucose level stabilized/improved Cortisol levels were low, but ACTH stim test was normal She has been given hydrocortisone but it does seem to be helping I'm not convinced that it is necessary Options discussed I advised Irvin as follows: The following lifestyle modifications are advisable to reduce the frequency & severity low blood sugar episodes: Plan to eat 5-6 small meals/day - no more than 2-4 hours between meals Eat no more than 30 grams of total carbohydrate per meal Limit your total daily intake of total carbohydrates to 180 grams or less Avoid/limit eating carbohydrates that have no fiber (these are simple carbs) Avoid/limit drinking your carbohydrates (juice, pop; limit sugar in coffee or tea) Do not eat carbohydrates alone - without including protein and/or fat Start metformin ER 500 mg tablets Begin with 1 tablet daily with breakfast If no GI upset (bloating, loose bowel movements, or frequent bowel movements) after 3 days & if low glucose readings continue, then change to 1 tablet 2 times daily with food. You can repeat the process as needed - up to 3 times daily with food After 2 weeks of starting metformin, begin to wean hydrocortisone as follows: Take 10 mg (2 tablets) daily X 1 week, Then take 5 mg daily X 1 week, Then stop Follow up in 3 months - or soonest thereafter - with Jennifer Linares APRN.ACCOUNTS PAYABLE ASSOCIATE Follow up in 6 months with me I spent a total of 40 minutes on the date of the service which included preparing to see the patient, [id number] patient care, completing clinical documentation, obtaining and/or reviewing separately obtained history, counseling and educating the patient/family/caregiver, ordering medications, tests, or procedures, independently interpreting results (not separately reported), and communicating results to the patient/family/caregiver. Dylan Topete MD Endocrinology, Diabetes, & Metabolism April 29, 2023 3:28 PM documented in this encounter [facility] 04-29-2023 Procedure note Images from the original note were not included. 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 It required patient-provider interaction for the medical decision making as documented below. I have communicated my name and active licensure. The patient's identity and physical location were verified at the time of this visit. Either the patient or their legal agency service representative has been informed of the risks and benefits of -- and alternatives to -- treatment through a remote evaluation and consents to proceed with the evaluation remotely. Irvin Kline is a 33 year old female seen for severe asthma. Patient states she is about 70% better since starting Nucala. 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 She is highly allergic to cats and dogs by RAST testing. She was recently in the hospital for hypoglycemia. C-peptide was good. Seen by endocrinology. Apparently ACTH stim test was satisfactory. Perhaps they were still concerned about relative adrenal insufficiency from all her frequent steroids in the past for asthma management Patient's eosinophils have dropped from 15% to 3% as expected on Nucala recent CBC Recent blood work had a normal C-peptide Chest x-ray May 2022 was unremarkable Pulmonary function testing had exhaled nitric oxide of 71. IgE level was 208 although somewhat tempered by frequent steroids. FVC 83% FEV1 64% 18% bronchodilator response. HISTORY REVIEWED (electronic chart updated): PAST MEDICAL HISTORY Diagnosis Date Anemia Asthma No past surgical history on file. No family history on file. Social History Tobacco Use Smoking status: Never Smokeless tobacco: Never Vaping Use Vaping Use: Never used Substance Use Topics Alcohol use: Yes Comment: social Drug use: No Current Outpatient Medications Medication Sig Blood-Glucose Transmitter (DEXCOM G6 TRANSMITTER) mallika 1 Each once daily. levalbuterol tartrate HFA 45 mcg/actuation inhaler Inhale 2 Puffs as instructed every 4 hours as needed for wheezing/shortness of breath. Blood-Glucose Meter,Continuous (DEXCOM G6 CEMETERY VAULT INSTALLER) misc 1 Each once daily. Blood-Glucose Sensor (DEXCOM G6 SENSOR) mallika 1 Each once daily. montelukast (SINGULAIR) 10 mg tablet take 1 tablet by mouth every day flash glucose sensor (FREESTYLE JENNY 2 SENSOR) kit 1 Each once daily. flash glucose scanning reader (FREESTYLE JENNY 2 READER) 1 Each once daily. hydrocortisone (CORTEF) 5 mg tablet Take 3 tablets by mouth once daily. blood sugar diagnostic (BLOOD GLUCOSE TEST) test strip Use as instructed Lancets lancets Use as instructed Blood-Glucose Meter 1 Each once daily. ergocalciferol 50,000 unit capsule (VITAMIN D2, DRISDOL) Take 1 capsule by mouth one time a week. ferrous sulfate 325 mg (65 mg iron) tablet Take 1 tablet by mouth two times a day. lamoTRIgine (LAMICTAL) 25 mg tablet take 1 tablet by mouth everyday at bedtime budesonide (PULMICORT) 0.5 mg/2 mL nebulizer solution USE 2 ML VIA NEBULIZER EVERY 12 HOURS. INHALE OVER 5-15 MINUTES citalopram (CELEXA) 40 mg tablet Take 1 tablet by mouth once daily. budesonide-formoterol (SYMBICORT) 160-4.5 mcg/actuation inhaler Inhale 2 Puffs as instructed two times a day. albuterol (PROVENTIL) 2.5 mg /3 mL (0.083 %) nebulizer solution Use 3 mL via nebulizer every 4 hours as needed for wheezing/shortness of breath. Inhale by nebulizer over 5-15 minutes. albuterol HFA (PROAIR HFA) 90 mcg/actuation inhaler Inhale 2 Puffs as instructed every 6 hours as needed for wheezing/shortness of breath. mepolizumab (NUCALA) 100 mg injection Inject 100 mg subcutaneously every 4 weeks. Nebulizer and Compressor For Neb Use as directed FEXOFENADINE HCL (LAQUITA ALLERGY ORAL) Take by mouth once daily. No current facility-administered medications for this visit. ALLERGIES Allergen Reactions Rocephin [Ceftriaxo* Anaphylaxis per pt mother was 3yo VIDEO EXAM: (if completed, performed via video enabled technology) ASSESSMENT: (J45.50) Asthma, late onset, severe persistent, uncomplicated (primary encounter diagnosis) (E27.3, T38.0X5A) 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) Animal allergies (now off VET work) Recent hypoglycemia PLAN: Xopenex HFA per ins Stay on NUCALA, wonderful response, injection sites ok Noted low Hcortisone per endo; ACTH stim ok reportedly Symbicort LTA Off budesonide nebs Patient Instructions Stay on NUCALA Noted hydrocortisone Avoiding V[employer] job for now will help Time today 22 mins Robson Zuniga MD Pex: limited, video No distress. Verbal. Alert. No conversational dyspnea. No limiting cough. Age appropriate. No facial asymmetry. ESPARZA. Speech intact. Ambulatory in house Some obesity documented in this encounter [facility] 04-24-2023 Miscellaneous Notes sent Patient stated Krystle Espinoza did not send the Dexcom transmitter rx when she sent the printing worker supervisor and sensors. Please note: she'd like the transmitter sent to [facility] in [place] (not [place]). She will be working in [place] today. She wants to know if it can be sent before 11 am. documented in this encounter [facility] 04-18-2023 Miscellaneous Notes Called and informed pt. I sent in script for reader too, I apologize I thought that was a kit for everything. Patient called to request this script for the sensors too. She'd like a call at [phone] when rx has been sent. documented in this encounter [facility] 04-17-[address] returned call from patient. Pt had a couple follow up nutrition questions from visit on 04/15/23. RD answered all questions at this time. Encouraged pt to contact RD with any additional questions or concerns in the future. Mera Varela M.S., GA, RICHARD April 17, 2023 8:43 AM documented in this encounter [facility] 04-16-2023 Miscellaneous Notes PATIENT INFORMATION Record ID: [id number] Patient Name: [facility]: Juanito Valmora: [facility] Attending: Owen Feliz Jr Center: Hospital Medicine INSTRUCTIONS MA to remind patient of next upcoming appointment date, time, location All Clear All Clear SURVEY INFORMATION Medical/Nurse Biological Plant Operator: Kenny Osuna 1. Your discharge instructions are important in guiding you through the recovery process. Is there anything I could help you clarify on your discharge instructions? (Standard Question) Yes 2. We encourage a follow up appointment with your physician. Do you have one scheduled? If not; What is the name of the doctor you should be seeing for your follow-up care? (Standard Question) Yes 4. Have you experienced any side-effects that may be from your medications? (Red Flag Question) No 3. Many patients have concerns about their medications once they are home. Do you have any questions about getting or taking your medications? (Standard Question) No 5. Do you have any new or worsening symptoms? 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 Varies (6-7 hours/night) Diet History: normally 3 meals/day; advised 4-6 small meals per day Breakfast: typically skips; started protein shake this week (made for her) - foxy fit protein powder for her with milk or almond milk OR Premier protein shake Lunch: meat, starch (lasagna) + diet coke Dinner: variable (fast food) - burger jonathan, pizza, [employer] (whopper lg ventura, diet coke) Snacks: not typically, cracks, chips Fluids: diet coke (12 pack - 12 oz cans); water ETOH: none Dining/eating out? At work Allergies: No Food Allergy Patient / Provider Comments: -pt recently admitted for hypoglycemia (64 mg/dl in ED) - felt symptoms of low BG: light headed, dizzy, weak -she is checking BG 4x/day: fasting, before lunch and dinner; before bedtime (reports fasting 88, before lunch 105) -adrenal insufficiency dx (pt states maybe [place]'s) - advised 4-6 small meals per day -pt has already begun making dietary changes - added protein shake in the morning Medications: Current Outpatient Medications Medication Sig hydrocortisone (CORTEF) 5 mg tablet Take 3 tablets by mouth once daily. blood sugar diagnostic (BLOOD GLUCOSE TEST) test strip Use as instructed Lancets lancets Use as instructed Blood-Glucose Meter 1 Each once daily. ergocalciferol 50,000 unit capsule (VITAMIN D2, DRISDOL) Take 1 capsule by mouth one time a week. ferrous sulfate 325 mg (65 mg iron) tablet Take 1 tablet by mouth two times a day. lamoTRIgine (LAMICTAL) 25 mg tablet take 1 tablet by mouth everyday at bedtime meloxicam (MOBIC) 15 mg tablet Take 1 tablet by mouth once daily. budesonide (PULMICORT) 0.5 mg/2 mL nebulizer solution USE 2 ML VIA NEBULIZER EVERY 12 HOURS. INHALE OVER 5-15 MINUTES montelukast (SINGULAIR) 10 mg tablet take 1 tablet by mouth every day citalopram (CELEXA) 40 mg tablet Take 1 tablet by mouth once daily. budesonide-formoterol (SYMBICORT) 160-4.5 mcg/actuation inhaler Inhale 2 Puffs as instructed two times a day. albuterol (PROVENTIL) 2.5 mg /3 mL (0.083 %) nebulizer solution Use 3 mL via nebulizer every 4 hours as needed for wheezing/shortness of breath. Inhale by nebulizer over 5-15 minutes. albuterol HFA (PROAIR HFA) 90 mcg/actuation inhaler Inhale 2 Puffs as instructed every 6 hours as needed for wheezing/shortness of breath. mepolizumab (NUCALA) 100 mg injection Inject 100 mg subcutaneously every 4 weeks. Nebulizer and Compressor For Neb Use as directed FEXOFENADINE HCL (LAQUITA ALLERGY ORAL) Take by mouth once daily. No current facility-administered medications for this visit. Labs: Lab Results Component Value Date HBA1C 5.1 04/10/2023 HBA1C 5.2 04/02/2022 Cholesterol, Total Date Value Ref Range Status 04/02/2022 152 <200 mg/dL Final Comment: <200 mg/dL, Desirable 200-239 mg/dL, Borderline high >239 mg/dL, High HDL Cholesterol Date Value Ref Range Status 04/02/2022 56 >39 mg/dL Final Comment: 40-59 mg/dL, Acceptable >59 mg/dL, High: Negative risk factor for coronary heart disease <40 mg/dL, Low: Positive risk factor for coronary heart disease LDL Cholesterol Date Value Ref Range Status 04/02/2022 89 <100 mg/dL Final Comment: <100 mg/dL, Optimal 100-129 mg/dL, Near optimal/above optimal 130-159 mg/dL, Borderline high 160-189 mg/dL, High >189 mg/dL, Very high Secondary prevention optimal LDL Cholesterol levels are recommended to be < 70 mg/dL Triglyceride Date Value Ref Range Status 04/02/2022 35 <150 mg/dL Final Comment: <150 mg/dL, Normal 150-199 mg/dL, Borderline high 200-499 mg/dL, High >499 mg/dL, Very high Glucose (mg/dL) Date Value 04/12/2023 74 Potassium (mmol/L) Date Value 04/12/2023 4.3 Sodium (mmol/L) Date Value 04/12/2023 142 Chloride (mmol/L) Date Value 04/12/2023 106 CO2 (mmol/L) Date Value 04/12/2023 22 Creatinine (mg/dL) Date Value 04/12/2023 0.57 BUN (mg/dL) Date Value 04/12/2023 8 Anion Gap (mmol/L) Date Value 04/12/2023 14 Calcium, Total (mg/dL) Date Value 04/12/2023 9.7 Protein, Total (g/dL) Date Value 04/12/2023 6.8 Albumin (g/dL) Date Value 04/12/2023 3.8 Bilirubin, Total (mg/dL) Date Value 04/12/2023 0.2 Alkaline Phosphatase (U/L) Date Value 04/12/2023 120 AST (U/L) Date Value 04/12/2023 17 ALT (U/L) Date Value 04/12/2023 16 ANTHROPOMETRICS Height: Last 1 Encounter Ht Readings: Date: Ht: 04/11/2023 162.6 cm (5' 4) Current weight: Last 3 Encounter Wt Readings: Date: Wt: 04/11/2023 126.4 kg (278 lb 10.6 oz) 04/10/2023 128 kg (282 lb 3 oz) 01/28/2023 127.5 kg (281 lb) BMI: 47.83 5% -10% Weight loss: 14-28 lbs Last Wt 04/11/23 : 126.4 kg (278 lb 10.6 oz) 5% weight loss = 265 lbs, 10% weight loss = 251 lbs READINESS TO LEARN Cognitive ability: Alert and oriented Motivation to learn: Interested Family support: Unable to assess - Family not present Instruction provided to: Patient Patient learns best by: Individual Instruction Written Instruction - Hand-outs Verbal Instruction Factors affecting learning: None Physical limitations affecting learning: None Stage of Change: Action Nutrition Diagnosis: Inconsistent Carbohydrate Intake, related to; Hypoglycemia, as evidenced by diet recall and nutrition history Calories Needed for Current Weight: Resting Metabolic Rate: 1955 Nutrition Intervention: Discussed the following nutrition topics today at the appointment: --carbohydrate sources and effect on blood sugar --concepts of the Mediterranean diet for healthy carb choices --reviewed a sample carb controlled Mediterranean style menu --benefits of fiber and protein in foods and effect on satiety --food label reading for carbohydrate and fiber --portion sizes for commonly eaten carbohydrate foods --Plate Method: at least 1/2 plate filled with low carb vegetables, 1/4 plate with a protein food that is not fried, 1/4 plate high fiber starch/carb --Consider keeping carbohydrate to at each meal to 30-60 grams (~180 grams per day - will adjust as needed) --consistent meals and snacks (every 2-3 hours) paired with adequate protein to optimize blood sugar control; meal timing per pt's work schedule --not all carbs are created equal, be sure to include whole grain as able for additional fiber, vitamins, minerals --balanced snacks and no naked carbs; grab-and-go snacks to keep on hand at work --reviewed low blood glucose s/sx/tx -reviewed relationship between blood glucose and insulin; hepatic glucose release; role of carbs on glucose levels Exercise: --effect of exercise on blood sugars Education Materials: Thriving with the Mediterranean Lifestyle Nutrition Monitoring & Evaluation: Dietitian Goals: Have 4-6 small frequent meals/day with protein Continue checking blood sugars as advised Criteria: Diet recall Blood glucose values Patient Stated Goals at today's visit: 4-6 small, frequent meals per day with adequate protein Adherence Potential to Goals: Good Need for Follow up: follow up with [facility] on 05/19/23 Referred by: Owen Feliz Jr* Mera Varela RD Consult Billing Type/Increments: Initial Assessment/15 minutes, 2 increment(s), 30 minutes Start time: 1:00 PM End time: 1:35 PM My final report will be communicated back to the requesting physician by way of shared medical record. Signed by: Mera Varela RD documented in this encounter [facility] 04-14-2023 Miscellaneous Notes Patient's appointment with Richar Kelley APRN.CNP for 04/17/2023 has been canceled. Patient is scheduled with Dr. Rivera on 05/14/2023 @ 10:[address] Carrera on 06/04/2023 @ 8:00 AM per appt desk. documented in this encounter [facility] 04-11-2023 Hospital Discharg e instructions Patient Education 04/11/2023 11:26:43 Hypoglycemia, Nondiabetic Nondiabetic Hypoglycemic Reaction You have had an episode of low blood sugar (hypoglycemia). A single episode of hypoglycemia does not mean that this problem will recur. There are many causes for low blood sugar. These include eating highly refined starchy foods (carbohydrates), drinking too much alcohol, intense exercise, fatigue, stress, poor diet, , and certain illnesses. Your blood sugar level may also be affected by tobacco, caffeine, and certain medicines, including: Aspirin Haloperidol Propoxyphene Chlorpromazine Propranolol Disopyramide SHRUTI inhibitors Quinolones (certain antibiotics) Many of the medicines used by people with diabetes to lower their blood sugar A class of medicine called beta-blockers is used for high blood pressure, rapid heart rates, and other conditions. Beta-blockers may prevent the early symptoms of low blood sugar. If you are taking a beta-alyssa, you might not realize that your blood sugar is getting low. If you are taking a beta-alyssa and are prone to low blood sugar, talk to your healthcare provider about switching to a different class of medicine. The beta-alyssa class includes: Propranolol Atenolol Metoprolol Nadolol Labetalol Carvedilol Home care Rest today and resume a normal diet. Eliminate any of the above known causes where possible. Check with your healthcare provider before changing any of your medicines. The proper diet for true hypoglycemia (diagnosed with a glucose tolerance test) is high protein (20% of calories), low carbohydrate (50% of calories), and moderate fat (30% of calories) in 6 small meals per day. If this is your first episode of low blood sugar, or if you have not yet been tested with a glucose or mixed meal tolerance test, eat small frequent meals rather than fewer large meals. Limit starchy foods during the next 1 to 2 days to avoid a recurrence of low blood sugar. It is important to learn the warning signals your body gives as your blood sugar starts to drop. See the symptoms listed below. If symptoms of hypoglycemia return Keep a source of fast-acting sugar with you. At the first sign of low blood sugar, eat or drink 15 to 20 grams of fast-acting sugar. Examples include: o3 to 4 glucose tablets (found at most drugstores) o4 ounces of regular soda (don't use diet soda) o4 ounces of fruit juice o2 tablespoons of raisins o1 tablespoon of honey o8 ounces of nonfat or 1% milk oHard candies, gumdrops, or jellybeans (check the package for serving size) Also, eat a regular meal, with protein and fat, to help stabilize your blood sugar. If consuming fast-acting sugar does not improve your symptoms within 20 minutes, call 911 and go to an emergency room. Don't drive yourself. If you have severe hypoglycemic spells, wear a medical alert bracelet or carry a card in your wallet describing this condition. If you have a severe hypoglycemic reaction and are unable to give this information, it will help medical staff provide proper care. Follow-up care Follow up with your healthcare provider, or as advised. When to seek medical advice Call your healthcare provider right away if any of these symptoms of low blood sugar occur. Fatigue or headache Trembling or excess sweating Hunger Feeling anxious or restless Vision changes Irritability Sleepiness Dizziness Call 911 Call 911 if any of these occur: Drowsiness Weakness Confusion Loss of consciousness [phone] [employer]. [address] [place] [address], [place] [address]. All rights reserved. This information is not intended as a substitute for professional medical care. Always follow your healthcare professional's instructions. Follow Up Care 04/11/2023 10:08:12 With:DONALD SNOWDEN DO Address: [place] [address]- When:2-4 days [facility] 04-11-2023 Miscellaneous Notes Please see previous encounters. Handled by Internal Medicine. Will recommend patient make an appt with Endocrinology for further evaluation. BRENDA Pro, RN [facility] documented in this encounter [facility] 04-11-2023 Note Discharge Instructions Thank you for allowing [facility] to assist you with your healthcare needs. The following is important discharge information regarding your hospital visit. Diagnosis from Today's Visit Dizziness Hypoglycemia What to Do Next Instructions from Your Care Team Discharge Return to Work, School, or Sports (Return to Work, School, or Sports) - Ordered -- 04/11/23, 04/13/23, May return to: work, 04/11/23 11:26:00 EST Post Acute Orders No qualifying data available. You Need to Schedule the Following Appointments Follow Up with DONALD SNOWDEN DO When Within 2-4 days Where: [place] [address]- Allergies Rocephin Medications Please ask your primary doctor or pharmacist before taking any other medication not listed, including over the counter drugs, herbal medications, vitamins and or supplements as they may interact with your home medications. What How Much When Instructions Last Dose Unchanged albuterol (Albuterol (Eqv-ProAir HFA) 90 mcg/ inh inhalation aerosol) Unchanged budesonide (budesonide 0.5 mg/ 2 mL inhalation suspension) 2 Milliliter by inhalation Two (2) times a day Unchanged budesonide-formoterol (Symbicort 160 mcg-4.5 mcg/ inh Inhaler) Unchanged citalopram (citalopram 40 mg oral tablet) 1 tab(s) by mouth Once a day Unchanged lamoTRIgine (lamoTRIgine 25 mg oral tablet) 1 tab(s) by mouth Two (2) times a day Unchanged mepolizumab (Nucala Prefilled Autoinjector 100 mg/ mL subcutaneous solution) 100 Milligram Subcutaneous Every 4 weeks Please take this list to your next doctor s visit. Bring all medications you take, including over the counter medications, herbals and other supplements with you to your doctor s visit. Patients and families are reminded to discard old lists and to update any records with all medication providers or retail pharmacies. Education Materials Nondiabetic Hypoglycemic Reaction You have had an episode of low blood sugar (hypoglycemia). A single episode of hypoglycemia does not mean that this problem will recur. There are many causes for low blood sugar. These include eating highly refined starchy foods (carbohydrates), drinking too much alcohol, intense exercise, fatigue, stress, poor diet, , and certain illnesses. Your blood sugar level may also be affected by tobacco, caffeine, and certain medicines, including: Aspirin Haloperidol Propoxyphene Chlorpromazine Propranolol Disopyramide SHRUTI inhibitors Quinolones (certain antibiotics) Many of the medicines used by people with diabetes to lower their blood sugar A class of medicine called beta-blockers is used for high blood pressure, rapid heart rates, and other conditions. Beta-blockers may prevent the early symptoms of low blood sugar. If you are taking a beta-alyssa, you might not realize that your blood sugar is getting low. If you are taking a beta-alyssa and are prone to low blood sugar, talk to your healthcare provider about switching to a different class of medicine. The beta-alyssa class includes: Propranolol Atenolol Metoprolol Nadolol Labetalol Carvedilol Home care Rest today and resume a normal diet. Eliminate any of the above known causes where possible. Check with your healthcare provider before changing any of your medicines. The proper diet for true hypoglycemia (diagnosed with a glucose tolerance test) is high protein (20% of calories), low carbohydrate (50% of calories), and moderate fat (30% of calories) in 6 small meals per day. If this is your first episode of low blood sugar, or if you have not yet been tested with a glucose or mixed meal tolerance test, eat small frequent meals rather than fewer large meals. Limit starchy foods during the next 1 to 2 days to avoid a recurrence of low blood sugar. It is important to learn the warning signals your body gives as your blood sugar starts to drop. See the symptoms listed below. If symptoms of hypoglycemia return Keep a source of fast-acting sugar with you. At the first sign of low blood sugar, eat or drink 15 to 20 grams of fast-acting sugar. Examples include: o3 to 4 glucose tablets (found at most drugstores) o4 ounces of regular soda (don't use diet soda) o4 ounces of fruit juice o2 tablespoons of raisins o1 tablespoon of honey o8 ounces of nonfat or 1% milk oHard candies, gumdrops, or jellybeans (check the package for serving size) Also, eat a regular meal, with protein and fat, to help stabilize your blood sugar. If consuming fast-acting sugar does not improve your symptoms within 20 minutes, call 911 and go to an emergency room. Don't drive yourself. If you have severe hypoglycemic spells, wear a medical alert bracelet or carry a card in your wallet describing this condition. If you have a severe hypoglycemic reaction and are unable to give this information, it will help medical staff provide proper care. Follow-up care Follow up with your healthcare provider, or as advised. When to seek medical advice Call your healthcare provider right away if any of these symptoms of low blood sugar occur. Fatigue or headache Trembling or excess sweating Hunger Feeling anxious or restless Vision changes Irritability Sleepiness Dizziness Call 911 Call 911 if any of these occur: Drowsiness Weakness Confusion Loss of consciousness [phone] [employer]. [address] [place], [place] [address]. All rights reserved. This information is not intended as a substitute for professional medical care. Always follow your healthcare professional's instructions. Additional Information VACCINATE! IT SAVES LIVES! Members of the community who have not yet received the COVID-19 vaccine and would like to receive it can visit one of [facility] vaccine clinics. There are many vaccine clinic locations within the [facility]. For locations and available times, please visit [email or web address] It is important to note that some COVID mobile vaccine clinics are held outdoors and may be canceled in rainy or stormy conditions. To learn more about pediatric vaccinations (ages 5-11), we invite you to visit the [facility] webpage. [email or web address] To learn more about the COVID-19 vaccine, we invite you to visit the CDC website for a list of frequently asked questions. https://www.cdc.gov/coronavirus/ 2019-ncov/vaccines/faq.html [facility] Patient Portal Access Instructions: Stay connected with your healthcare team and access your personal medical information anytime with the [employer] Patient Portal. If you would like a full copy of your medical records please contact the [facility] Medical Records Department Friday through Friday between 8a.m. and 4:30p.m. Please follow the directions below to access the portal: 1.Access the email account you provided upon registration to the [facility].2.Look for an invitation email from [facility].3.Open the email and access the invitation link: Accept Invitation to [facility]4.Fill in the required dangelo to create your account. Sign into [email or web address] with your username and password that you created in the above steps to stay up to date. You can then view a summary of results, a summary of your visits, and the ability to download your summaries to your computer or send the information securely to a physician. Remember that your healthcare information is confidential, so carefully consider who you will allow to register on the [employer] Patient Portal for access to your information. You can also access the [employer] Patient Portal on the [employer]. Simply click on Health Records under Health Data and then click on the [employer] logo. HOW TO SAFELY DISPOSE OF PRESCRIPTION MEDICATIONS Please use one of the following methods to safely dispose of your unused medications. 1.Use a drug disposal kit: the drug disposal pouch allows you to safely discard your old and unused drugs. Ask your nurse to give you one when you are discharged.2.Visit a local take-back location: Many local pharmacies and police departments have programs that collect old and unwanted prescription drugs. Call your local pharmacy or go to http://bit.ly/1Y1Ee6h to find one close to you.3.Make use of household items: Use cat litter or old coffee grounds to dispose medications if other options are not available. Mix your drugs with these household products, seal them in an airtight container and throw it into the garbage. Call [facility]: [phone] to be sure your drugs can be disposed of in this way. Some medicines may require a different approach.4.Never flush your medications down the toilet. IF YOU HAVE BEEN PRESCRIBED AN OPIOIDS FOR PAIN If you have been prescribed an opioid (such as hydrocodone, oxycodone or morphine), it is critical to understand the possible side effects and risks of opioid pain medications. Even when taken as directed, opioids can have several side effects including: Tolerance, meaning you might need to take more of a medication for the same pain relief. Nausea, vomiting and/or constipation. Sleepiness, dizziness, dry mouth, confusion, depression or itching. Physical dependence, meaning you have withdrawal symptoms when a medication is stopped ? this can develop within a few days. KNOW YOUR RESPONSIBILITIES It is important to know exactly how much and how often to take the opioid pain medications you are prescribed. Never take opioids in higher amounts or more often than prescribed. Do not combine opioids with alcohol or other drugs that cause drowsiness, such as benzodiazepines, also known as benzos, including diazepam and alprazolam, muscle relaxants or sleep aids. Never sell or share prescription opioids. This is illegal. Store opioids in a secure place and out of reach of others (including children, family, friends and visitors). The last page(s) of this document has been signed and retained as a CHART COPY Signatures Patient Education Materials Hypoglycemia, Nondiabetic Medication Leaflets My discharge plan and instructions have been reviewed and explained to me and IRAISA LYNDSEY P understand my current condition and have read and understand these discharge instructions. I have received a written copy of the plan/instructions. If I have questions, I am aware that I should contact my doctor. Patient/[employer] Signature: Date/Time: Relationship to Patient: Witness Name/Signature: Date/Time: [facility] 04-11-2023 Miscellaneous Notes Spoke with patient. She was not feeling well and on her way to ED by EMS. Attempted to reach patient again. Please forward call to [phone] when she calls back. Patient returned phone call, please call her back, she is available anytime now. Attempted to reach patient- call went straight to voicemail. Left message asking for a return call. I sent in lancets and test strips for the pt. Also her blood sugar was low on the metabolic panel so she needs to continue as we discussed in office to eat smaller frequent meals and carry hard candy with her. documented in this encounter [facility] 04-11-2023 Miscellaneous Notes Spoke with patient. She was on way to ED by EMS due to not feeling well. Received phone call from lab, glucose level was 36, but this was from 445PM yesterday. Patient probably had meals since that time so not sure how relevant this is, but call pt and ask how she's doing and inform PCP if she's still having issues with low sugars. I believe she was told small frequent meals to keep the sugars up, but not familiar with patient. documented in this encounter [facility] 04-11-2023 Miscellaneous Notes Addressed in another encounter Pt calling in stating pharmacy has the blood glucose monitor but pharmacy did not receive RX for the test strips & lancets for the one touch ultra system. Pt asking if these can be called in clara to [facility] in [place]. Please review/advise. documented in this encounter [facility] 04-10-2023 Instructions Krystle Espinoza APRN.CNP - 04/10/2023 4:33 PM EST Start taking vitamin D and iron supplements Eat small frequent meals through out the day Drink more water and cut out soda documented in this encounter [facility] 04-10-2023 History of Presen t illness Narrative This note was created using [employer]. Subjective Irvin Kline is a 33 year old female. Patient presents with: Dizziness: Lighthead, legs felt weak, shaky, patient ate food and after 30 mins later tested sugar 63 with ( has glucose monitor since he has diabetes) Here with lightheadedness, dizziness and shaky feeling that started earlier this week, but also happened today. Pt states she has a history of gestational diabetes and diabetes runs in her family She is also on her menstrual cycle, which is heavy now too. 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 Last year was prescribed iron and vitamin D supplements but has not taken them. Denies cp, heart palp, syncope No headaches or vision changes States she drinks no water and only diet coke. States I am addicted Is cooking more at home and trying not to eat a lot of carbs. Eats 3 meals per day The history is provided by the patient. 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 Review of Systems Constitutional: Positive for fatigue. Negative for appetite change, chills, diaphoresis and fever. HENT: Negative for tinnitus. Eyes: Negative for photophobia and visual disturbance. Respiratory: Negative for cough, chest tightness, shortness of breath and wheezing. Cardiovascular: Negative for chest pain, palpitations and leg swelling. Gastrointestinal: Negative for abdominal pain, blood in stool, constipation, diarrhea, nausea and vomiting. Genitourinary: Negative. Musculoskeletal: Negative for myalgias. Skin: Negative for rash. Neurological: Positive for dizziness and light-headedness. Negative for syncope, weakness, numbness and headaches. Psychiatric/Behavioral: Negative for dysphoric mood, self-injury, sleep disturbance and suicidal ideas. The patient is not nervous/anxious. All other systems reviewed and are negative. Objective BP 119/80 (BP Site: Left Arm, BP Position: Sitting, BP Cuff Size: Large Adult) Pulse 80 Wt 128 kg (282 lb 3 oz) LMP 12/27/2022 (Exact Date) SpO2 98% BMI 48.44 kg/m PAST MEDICAL HISTORY Diagnosis Date Anemia Asthma History reviewed. No pertinent surgical history. Current Outpatient Medications on File Prior to Visit Medication Sig lamoTRIgine (LAMICTAL) 25 mg tablet take 1 tablet by mouth everyday at bedtime meloxicam (MOBIC) 15 mg tablet Take 1 tablet by mouth once daily. predniSONE (DELTASONE) 20 mg tablet take 3 a day for 2 days the 2 a day for 2 days then 1 a day for 2 days (Patient not taking: Reported on 03/11/2023) mepolizumab (NUCALA) 100 mg/mL auto-injector Inject 100 mg subcutaneously every 4 weeks. budesonide (PULMICORT) 0.5 mg/2 mL nebulizer solution USE 2 ML VIA NEBULIZER EVERY 12 HOURS. INHALE OVER 5-15 MINUTES Amoxicillin 500 mg tablet take 1 tablet by mouth three times a day for 7 days (Patient not taking: Reported on 03/11/2023) nystatin (MYCOSTATIN) 100,000 unit/mL suspension Take 5 mL by mouth four times daily. Swish and swallow. (Patient not taking: Reported on 03/11/2023) montelukast (SINGULAIR) 10 mg tablet take 1 tablet by mouth every day citalopram (CELEXA) 40 mg tablet Take 1 tablet by mouth once daily. budesonide-formoterol (SYMBICORT) 160-4.5 mcg/actuation inhaler Inhale 2 Puffs as instructed two times a day. albuterol (PROVENTIL) 2.5 mg /3 mL (0.083 %) nebulizer solution Use 3 mL via nebulizer every 4 hours as needed for wheezing/shortness of breath. Inhale by nebulizer over 5-15 minutes. albuterol HFA (PROAIR HFA) 90 mcg/actuation inhaler Inhale 2 Puffs as instructed every 6 hours as needed for wheezing/shortness of breath. predniSONE (DELTASONE) 20 mg tablet 3 a day for 4 days then 2 a day for 4 days then 1 for 4 days then 1/2 for 4 days (Patient not taking: Reported on 03/11/2023) meloxicam (MOBIC) 7.5 mg tablet Take 1 tablet by mouth once daily. mepolizumab (NUCALA) 100 mg injection Inject 100 mg subcutaneously every 4 weeks. ferrous sulfate 325 mg (65 mg iron) tablet TAKE 1 TABLET BY MOUTH TWICE A DAY (Patient not taking: Reported on 03/11/2023) Nebulizer and Compressor For Neb Use as directed ergocalciferol 50,000 unit capsule (VITAMIN D2, DRISDOL) Take 1 capsule by mouth one time a week. (Patient not taking: Reported on 03/11/2023) FEXOFENADINE HCL (LAQUITA ALLERGY ORAL) Take by mouth once daily. No current facility-administered medications on file prior to visit. ALLERGIES Allergen Reactions Rocephin [Ceftriaxo* Anaphylaxis per pt mother was 3yo Physical Exam Vitals and nursing note reviewed. Constitutional: General: She is awake. She is not in acute distress. Appearance: Normal appearance. She is well-developed and well-groomed. She is morbidly obese. She is not ill-appearing. HENT: Head: Normocephalic. Eyes: Conjunctiva/sclera: Conjunctivae normal. Pupils: Pupils are equal, round, and reactive to light. Cardiovascular: Rate and Rhythm: Regular rhythm. Pulses: Normal pulses. Heart sounds: Normal heart sounds. Pulmonary: Effort: Pulmonary effort is normal. No respiratory distress. Breath sounds: Normal breath sounds. No decreased air movement. No decreased breath sounds or wheezing. Musculoskeletal: General: No swelling, tenderness or signs of injury. Normal range of motion. Cervical back: Full passive range of motion without pain, normal range of motion and neck supple. Right lower leg: No edema. Left lower leg: No edema. Lymphadenopathy: Cervical: No cervical adenopathy. Skin: General: Skin is warm and dry. Capillary Refill: Capillary refill takes less than 2 seconds. Findings: No rash. Neurological: General: No focal deficit present. Mental Status: She is alert and oriented to person, place, and time. Mental status is at baseline. Cranial Nerves: No cranial nerve deficit. Sensory: Sensation is intact. No sensory deficit. Motor: Motor function is intact. No weakness. Coordination: Coordination is intact. Gait: Gait is intact. Gait normal. Psychiatric: Attention and Perception: Attention and perception normal. Mood and Affect: Mood and affect normal. Speech: Speech normal. Behavior: Behavior normal. Behavior is cooperative. Thought Content: Thought content normal. Thought content does not include homicidal or suicidal ideation. Cognition and Memory: Cognition and memory normal. Judgment: Judgment normal. ASSESSMENT/PLAN: 1. Lightheaded - ICD9: 780.4, ICD10: R42 (primary diagnosis) - ED if severe, discussed red flag symptoms and when to be evaluated in the ED. Pt VU - advised to eat smaller frequent meals throughout the day, increase water intake, carry hard candy, decrease soda intake and start taking vitamin D and iron supplements that were previously recommended. Pt VU - IRON + TIBC - HGB A1C - COMP METABOLIC PANEL - BLOOD-GLUCOSE METER 2. Hypoglycemia - ICD9: 251.2, ICD10: E16.2 - small frequent meals, carry hard candy. - if symptoms continue will consult Endo - HGB A1C - BLOOD-GLUCOSE METER Follow up as needed or sooner if new or worsening symptoms. Krystle Espinoza APRN.SHEN documented in this encounter [facility] 04-10-2023 Miscellaneous Notes Patient advised to eat small frequent meals. Also advised to call back or go to the ED with new or worsening symptoms. Appointment scheduled. Reason for Disposition [1] Blood glucose 70 mg/dL (3.9 mmol/L) or below OR symptomatic, now improved with Care Advice AND [2] cause unknown Answer Assessment - Initial Assessment Questions 1. SYMPTOMS: Sweaty, weak, dizziness 2. ONSET: 1 day 3. BLOOD GLUCOSE: 63 yesterday, 64 4. USUAL RANGE: unknown 5. TYPE 1 or 2: Gestational 3 year ago 6. INSULIN: Not prescribed DM medications 7. DIABETES PILLS: Not prescribed DM medications 8. OTHER SYMPTOMS: See above 9. LOW BLOOD GLUCOSE TREATMENT: Ate pop tart 10. FOOD: Poptart when symptoms began 11. ALONE: no 12. : No Protocols used: Diabetes - Low Blood [id number] documented in this encounter [facility] 2023 Miscellaneous Notes Patient phones requesting refills as follows: Requested Prescriptions Pending Prescriptions Disp Refills lamoTRIgine (LAMICTAL) 25 mg tablet [Pharmacy Med Name: LAMOTRIGINE 25 MG TABLET] 90 tablet 0 Sig: take 1 tablet by mouth everyday at bedtime Please review and advise. Mari Argueta Ma documented in this encounter [facility] 04-01-2023 History of Presen t illness Narrative Program_ID:[id number] Access Code: [email or web address] URL: [email or web address] Date: 04-01-2023 Prepared By: Nuria Tobin Program Notes Exercises - Towel Scrunches - 1 x daily - 7 x weekly - 2 sets - 10 reps - Toe Yoga - Alternating Great Toe and Lesser Toe Extension - 1 x daily - 7 x weekly - 2 sets - 10 reps - Long Sitting Calf Stretch with Strap - 1 x daily - 7 x weekly - 2 sets - 2 reps Episode Visit Count: 5 Therapist That Will Accept/Oversee The Plan Of Care: Jamey Gardner PT Start of Care Date: 03/17/23 Onset Date: 03/17/21 Patient Identified by Name and Date of : Yes REHABILITATION AND SPORTS THERAPY PHYSICAL THERAPY TREATMENT NOTE ASSESSMENT: Irvin Kline tolerated the session with expected muscle soreness. She demonstrated difficulty with right ankle inversion AROM due to pain. Ongoing swelling noted over ATFL near lateral malleolus. Patient reporting significant muscle fatigue with SL hip abduction exercises. The patient will continue to benefit from ongoing skilled physical therapy to progress toward set goals. PLAN FOR NEXT VISIT: Progress ankle and foot intrinsic strength. Progress ankle ROM as able SUBJECTIVE: Patient reports she was able to take a couple seated rest breaks at work today with the longest being 30 minutes. No increased soreness after previous PT session. Pain: Pain Pain Level: 5 Pain Location: Ankle - Right Post Treatment Pain Post Treatment Pain Location: Ankle - Right Post Treatment Symptoms: Muscle fatigue OBJECTIVE MEASURES WITH LEVEL OF FUNCTION: LE AROM R Ankle Dorsiflexion: 5 Degrees R Ankle Inversion: 18 TREATMENT: Therapeutic Exercise: 1: Longsitting gastroc stretch 2x30 sec right 2: 4 way ankle x15 each way no resistance, x10 each way verse PTB, inversion terminated due to increased pain. 3: Seated heel raise with 10# KB on knee 2x15 4: SL hip ABD 2x15 no resistance 5: SL clamshell no resistance 2x15 6: Seated ankle windshield wipers 2x15 7: Towel scrunches 2x15 8: Semi-tandem on foam x30 sec, right leg posterior Skilled Intervention: Patient was educated in proper exercise technique and purpose for exercises. Reviewed and educated patient on additions/changes for home exercise program as above (*). Skilled judgment was used in selection of appropriate interventions. Provided written instruction for home exercise program to facilitate proper performance and compliance. Correct performance of therapeutic exercises was facilitated with verbal and visual cuing. Manual Therapy: 1: Extensive STM over foot intrinsics, ATFL, tibialis anterior, and peroneals with thumb gliding with pt in longsitting Skilled Intervention: Manual skills to improve joint mobility, ROM, and decrease pain. Utilized anatomy knowledge of the therapist, and assessment of patient's response to intervention. Billing Therapeutic Exercise Treatment Minutes: 25 Manual TherapyTreatment Minutes: 15 Total Session Time (minutes): 40 Session Start Time : 1500 Session Stop Time : 1540 Nuria Puckett PT, DPT documented in this encounter [facility] 03-28-2023 History of Presen t illness Narrative Episode Visit Count: 4 Therapist That Will Accept/Oversee The Plan Of Care: Jamey Gardner PT Start of Care Date: 03/17/23 Onset Date: 03/17/21 Patient Identified by Name and Date of : Yes REHABILITATION AND SPORTS THERAPY PHYSICAL THERAPY TREATMENT NOTE ASSESSMENT: Irvin Kline tolerated the session with expected muscle soreness. She demonstrated difficulty with achieving full ROM with resisted 4 way ankle in all directions. Her ankle musculature is quick to fatigue. The patient will continue to benefit from ongoing skilled physical therapy to progress toward set goals. PLAN FOR NEXT VISIT: Progress ankle and foot intrinsic strength. Consider superficial DN for pain SUBJECTIVE: Patient reports her pain is minimal. She has not worked in 2 days. HEP continues to do well. Uses GTB for exercises when she does not work, uses PTB on days she works due to pain and weakness. Pain: Pain Pain Level: 0 Pain Location: Ankle - Right Post Treatment Pain Post Treatment Pain Level: 2 Post Treatment Pain Location: Ankle - Right OBJECTIVE MEASURES WITH LEVEL OF FUNCTION: Ankle Observations R Ankle Presents with: Swelling Gait Gait Observation: Significantly improved gait pattern compared to previous session. TREATMENT: Therapeutic Exercise: 1: Warm-up on scifit x5 minutes no resistance. 2: 4 way ankle 2x15 [address] verse GTB 3: Seated heel/toe raise 2x15 each, attempted DL heel raise terminated due to pain 4: Ankle inversion/eversion wipers pillowcase on floor 2x[address] 5: Lowercase ABC's 2x through Skilled Intervention: Patient was educated in proper exercise technique and purpose for exercises. Skilled judgment was used in selection of appropriate interventions. Correct performance of therapeutic exercises was facilitated with verbal and visual cuing. Manual Therapy: 1: Gentle IASTM and STM over lateral ligamentous structures, fibularis muscles and tibialis anterior for pain reduction and swelling management Skilled Intervention: Manual skills to improve joint mobility, ROM, and decrease pain. Utilized anatomy knowledge of the therapist, and assessment of patient's response to intervention. Neuromuscular Re-Education: 1: BAPS board DF/PF, inv/ever, cw/ccw 2x10 each way 2: SL balance 2x30 sec Skilled Intervention: Skilled judgment used to assess appropriate program for balance and coordination activity. Education in proprioceptive/kinesthetic awareness during BAPS board activities. Billing Therapeutic Exercise Treatment Minutes: 21 Manual TherapyTreatment Minutes: 12 Neuromuscular Re-Education Treatment Minutes: 10 Skilled Treatment Time Minutes (timed and untimed codes): 43 Total Session Time (minutes): 43 Session Start Time : 1410 Session Stop Time : 1453 Nuria Puckett PT, DPT documented in this encounter [facility] 03-20-2023 History of Presen t illness Narrative Episode Visit Count: 2 Therapist That Will Accept/Oversee The Plan Of Care: Jamey Gardner PT Start of Care Date: 03/17/23 Onset Date: 03/17/21 Patient Identified by Name and Date of : Yes REHABILITATION AND SPORTS THERAPY PHYSICAL THERAPY TREATMENT NOTE ASSESSMENT: Irvin Kline tolerated the session with decreased symptoms. She demonstrated difficulty with increased pain due to just getting off of work. The patient will continue to benefit from ongoing skilled physical therapy to progress toward set goals. PLAN FOR NEXT VISIT: Possible BFR training for ankle strengthening SUBJECTIVE: Just got off work and so she is pretty sore. Pain: Pain Pain Location: Ankle - Right OBJECTIVE MEASURES WITH LEVEL OF FUNCTION: Tender along the peroneus longus tendon TREATMENT: Therapeutic Exercise: 1: Ankle 4 way pink TB x 10 each 2: Ankle PF/DF BAPPS 10# on board (one 2.5 weight at a different location) x 10 3: Ankle circles on BAPS x 10 4: *Discussed benefits of BFR training and an exaplanation of of it affects the body Skilled Intervention: Patient was educated in proper exercise technique and purpose for exercises. Correct performance of therapeutic exercises was facilitated with verbal and visual cuing. Manual Therapy: 1: STM over foot intrinsics with thumb gliding with pt in supine 2: Manual calf stretch 2 x 30 sec 3: FHL stretch manually done 3 x 30 sec Skilled Intervention: Manual skills to improve joint mobility, ROM, and decrease pain. Utilized anatomy knowledge of the therapist, and assessment of patient's response to intervention. Billing Therapeutic Exercise Treatment Minutes: 22 Manual TherapyTreatment Minutes: 20 Skilled Treatment Time Minutes (timed and untimed codes): 42 Total Session Time (minutes): 42 Session Start Time : 1500 Session Stop Time : 1542 Jamey Gardner PT documented in this encounter [facility] 01-03-2023 History of Presen t illness Narrative Images from the original note were not included. Subjective HPI HPI Irvin Kline is a 32 year old female who presents today for CC of insect bite left arm. This started 1 day ago. Has tried nothing for relief. Symptoms are worsened by nothing. Denies fever. Denies possibility of being . .Patient presents with: Insect Bite: L upper arm x1 day PAST MEDICAL HISTORY Diagnosis Date Anemia Asthma No past surgical history on file. ALLERGIES Rocephin [Ceftriaxone Sodium] MEDICATIONS predniSONE (DELTASONE) 20 mg tablet Take 2 tablets by mouth once daily for 5 days. triamcinolone acetonide (KENALOG) 0.1 % cream Apply 1 application to affected area three times a day for 10 days. Apply sparingly to area for rash/itching. lamoTRIgine (LAMICTAL) 25 mg tablet TAKE 1 TABLET BY MOUTH EVERYDAY AT BEDTIME citalopram (CELEXA) 40 mg tablet Take 1 tablet by mouth once daily. budesonide-formoterol (SYMBICORT) 160-4.5 mcg/actuation inhaler Inhale 2 Puffs as instructed two times a day. albuterol (PROVENTIL) 2.5 mg /3 mL (0.083 %) nebulizer solution Use 3 mL via nebulizer every 4 hours as needed for wheezing/shortness of breath. Inhale by nebulizer over 5-15 minutes. albuterol HFA (PROAIR HFA) 90 mcg/actuation inhaler Inhale 2 Puffs as instructed every 6 hours as needed for wheezing/shortness of breath. predniSONE (DELTASONE) 20 mg tablet 3 a day for 4 days then 2 a day for 4 days then 1 for 4 days then 1/2 for 4 days (Patient not taking: Reported on 01/03/2023) meloxicam (MOBIC) 7.5 mg tablet Take 1 tablet by mouth once daily. mepolizumab (NUCALA) 100 mg injection Inject 100 mg subcutaneously every 4 weeks. ferrous sulfate 325 mg (65 mg iron) tablet TAKE 1 TABLET BY MOUTH TWICE A DAY montelukast (SINGULAIR) 10 mg tablet TAKE 1 TABLET BY MOUTH EVERY DAY budesonide (PULMICORT) 0.5 mg/2 mL nebulizer solution Use 2 mL via nebulizer every 12 hours. Inhale over 5-15 minutes Nebulizer and Compressor For Neb Use as directed ergocalciferol 50,000 unit capsule (VITAMIN D2, DRISDOL) Take 1 capsule by mouth one time a week. FEXOFENADINE HCL (LAQUITA ALLERGY ORAL) Take by mouth once daily. No family history on file. Social History Tobacco Use Smoking status: Never Smokeless tobacco: Never Vaping Use Vaping Use: Never used Substance Use Topics Alcohol use: No Drug use: No ROS Objective Blood pressure 147/76, pulse 73, temperature 36.9 C (98.4 F), resp. rate 18, weight 126 kg (277 lb 12.8 oz), last menstrual period 11/21/2022, SpO2 99 %, unknown if currently . Physical Exam Constitutional: General: She is not in acute distress. Appearance: She is not toxic-appearing or diaphoretic. HENT: Head: Normocephalic and atraumatic. Pulmonary: Effort: Pulmonary effort is normal. No accessory muscle usage or respiratory distress. Skin: Neurological: Mental Status: She is alert and oriented to person, place, and time. ASSESSMENT/PLAN: 1. Insect bite of left upper arm, initial encounter - ICD9: 912.4, E906.4, ICD10: S40.862A, W57.XXXA (primary diagnosis) -use medication as prescribed -follow up if symptoms persist, worsen, change - PREDNISONE 20 MG TABLET - TRIAMCINOLONE ACETONIDE 0.1 % TOPICAL CREAM 2. Skin erythema - ICD9: 695.9, ICD10: L53.9 Yuriy Lagos APRN.SHEN documented in this encounter [facility] 12-26-2022 Miscellaneous Notes PT is unable to obtain next dose of nucala, pt is in the middle of an insurance switch will reauth once patient has 1 insurance. She will notify us documented in this encounter [facility] 12-17-2022 Instructions Robson Zuniga MD - 12/17/2022 10:41 AM EDT Trial of NUCALA, need new insurance approval [facility] Prednisone burst Vaccines Discussed labs CATS ARE A TRIGGER documented in this encounter [facility] 12-17-2022 History of Presen t illness Narrative ESTABLISHED PATIENT FOLLOW-UP SERVICE DATE: 12/17/2022 PRIMARY CARE PHYSICIAN: Donald Snowden DO SUBJECTIVE HPI:Irvin Kline is a 32 year old female here for follow appointment. Routine visit and past visit reviewed. See previous notes. 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 tirzepatide (MOUNJARO) 2.5 mg/0.5 mL pen injector Inject 2.5 mg subcutaneously one time a week. citalopram (CELEXA) 40 mg tablet take 1 tablet by mouth every day mepolizumab (NUCALA) 100 mg injection Inject 100 mg subcutaneously every 4 weeks. ferrous sulfate 325 mg (65 mg iron) tablet TAKE 1 TABLET BY MOUTH TWICE A DAY montelukast (SINGULAIR) 10 mg tablet TAKE 1 TABLET BY MOUTH EVERY DAY lamoTRIgine (LAMICTAL) 25 mg tablet TAKE 1 TABLET BY MOUTH EVERYDAY AT BEDTIME budesonide (PULMICORT) 0.5 mg/2 mL nebulizer solution Use 2 mL via nebulizer every 12 hours. Inhale over 5-15 minutes budesonide-formoterol (SYMBICORT) 160-4.5 mcg/actuation inhaler Inhale 2 Puffs as instructed twice daily. albuterol HFA (PROAIR HFA) 90 mcg/actuation inhaler Inhale 2 Puffs as instructed every 6 hours as needed for wheezing/shortness of breath. albuterol (PROVENTIL) 2.5 mg /3 mL (0.083 %) nebulizer solution Use 3 mL via nebulizer every 4 hours as needed for wheezing/shortness of breath. Inhale by nebulizer over 5-15 minutes. Nebulizer and Compressor For Neb Use as directed ergocalciferol 50,000 unit capsule (VITAMIN D2, DRISDOL) Take 1 capsule by mouth one time a week. FEXOFENADINE HCL (LAQUITA ALLERGY ORAL) Take by mouth once daily. CURRENT ALLERGIES: ALLERGIES Allergen Reactions Rocephin [Ceftriaxo* Anaphylaxis per pt mother was 3yo OBJECTIVE PHYSICAL EXAMINATION: VITAL SIGNS: LMP 11/21/2022 BP 109/74 (BP Site: Left Arm, BP Position: Sitting, BP Cuff Size: Large Adult) Pulse (!) 58 Temp 36.3 C (97.3 F) Resp 18 Ht 162.6 cm (5' 4) Wt 123.4 kg (272 lb) LMP 11/21/2022 (Exact Date) SpO2 99% BMI 46.69 kg/m General appearance: well-nourished. Cordial. nontoxic Skin: Normal turgor. Not pallorous. Not diaphoretic. No jaundice. Eyes: Midline. No jaundice. anicteric ENT: No palpable lymphadenopathy. Hearing intact. No gross thyromegaly. Nasal congestion ; supple neck Heme/Lymph: No significant neck adenopathy. Lungs: Clear to auscultation. Decent inspiratory capacity. No overt wheeze. No significant hyperinflation. No fibrotic rales. No pleural rub. No obvious effusion. NO wheeze for me Heart: Regular rate and rhythm. Normal heart tones. BP as documented. No significant murmur. Normal P2 . Good hand perfusion. ABD: Not visually distended. Musculoskeletal: normal gait grossly, no acute synovitis. Ext: No deformities, no edema, or skin discoloration. adequate capillary refill Neuro: Nonfocal. Alert. Speech intact. No gross cerebellar dysfunction. DATA: Vaccines as noted EMR Diagnostic tests reviewed for today's visit: CBC with diff: Hemoglobin (g/dL) Date Value 06/16/2022 11.9 08/08/2016 11.4 Hematocrit (%) Date Value 06/16/2022 38.8 08/08/2016 36.0 WBC (k/uL) Date Value 06/16/2022 10.10 08/08/2016 17.09 Glucose (mg/dL) Date Value 06/16/2022 85 Potassium (mmol/L) Date Value 06/16/2022 3.5 Sodium (mmol/L) Date Value 06/16/2022 143 Chloride (mmol/L) Date Value 06/16/2022 106 CO2 (mmol/L) Date Value 06/16/2022 27 Creatinine (mg/dL) Date Value 06/16/2022 0.63 BUN (mg/dL) Date Value 06/16/2022 8 Anion Gap (mmol/L) Date Value 06/16/2022 10 Calcium, Total (mg/dL) Date Value 06/16/2022 9.2 Abs eosins 1540!! Labs: ige 208 asperg neg; BRAYAN 71 Micro: Last CT Chest - Impression Only No resulted procedures found. Last Echocardiogram No resulted procedures found. Chest xray: good Heart echo: PFT: Last Spirometry SPIROMETRY WITH DILATOR IF OBSTRUCTED Collected: 09/26/2022 12:32 PM (Final result) Narrative: [facility] [address], [address], [place] [id number] Test Date: 2022-09-26 Pat Name: IRVIN KLINE Department: Room: Gender: Female Sagger Filler: : 1990 Requested By: Order Number: [id number] Reading MD: Robson Zuniga MD Interpretive Statements PRE AND POST TEST ATS/ERS acceptability and repeatability standards for spirometry met. The exhaled (FVC) spirometry maneuver meets ATS/ERS acceptability and repeatability standards. 4 puffs Albuterol (360 mcg) delivered by MDI via holding chamber. HR pre = 85 /min, HR post = 90 /min. Medications and Allergies were reviewed for possible drug interactions per policy. No contraindications or sensitivities were noted. Meds taken ALBUTEROL NEB 4.5hours before testing. IMPRESSION: Spirometry indicates moderate obstruction. There is a significant bronchodilator response. Electronically Signed On 09-27-2022 9:25:14 EDT by Robson Zuniga MD ID: [id number] Name: IRVIN KLINE Race: White Ht: 64.02 in Wt: 268.08 lbs Age: 32 Gender: Female : 1990 Dx: Mild persistent asthma, uncomplicated Smoking Hx: Non-smoker Doctor: ROBSON ZUNIGA Test Date: 09/26/2022 Site: [facility] Tech: Ethan, Jennifer PRE-BRONCH POST-BRONCH Pre LLN Pred ULN %Pred Post %Pred %Chg SPIROMETRY FVC (L) 2.95 2.72 3.53 4.36 83 3.45 97 14 FEV1 (L) 1.93 2.29 2.99 3.66 64 2.50 83 18 FEV1/FVC 0.65 0.74 0.85 0.94 76 0.72 85 10 PEF L/s (L/sec) 5.10 5.30 7.01 8.73 72 6.21 88 21 FEF50 (L/sec) 1.40 2.39 4.00 5.61 35 3.36 84 140 FIF50 (L/sec) 4.00 3.23 -19 FEF50/FIF50 0.35 90-100 1.04 196 FIVC (L) 2.87 3.39 17 FMB56-18 (L/sec) 1.03 2.22 3.49 4.97 29 2.70 77 162 Time (sec) 8.20 8.91 8 FET PEF (sec) 0.07 0.09 23 CHIKIS (L) 0.07 0.11 48 Vol Extrap % (%) 2 3 27 Comments: PRE AND POST TEST ATS/ERS acceptability and repeatability standards for spirometry met. The exhaled (FVC) spirometry maneuver meets ATS/ERS acceptability and repeatability standards. 4 puffs Albuterol (360 mcg) delivered by MDI via holding chamber. HR pre = 85 /min, HR post = 90 /min. Medications and Allergies were reviewed for possible drug interactions per policy. No contraindications or sensitivities were noted. Meds taken ALBUTEROL NEB 4.5hours before testing. SPIROMETRY WITH DILATOR IF OBSTRUCTED ([id number]) - ordered on 09/26/22 No textual results for order. Personally reviewed and analyzed chest imaging and available labs ASSESSMENT/PLAN: 1. Late onset asthma, severe persistent, with status asthmaticus - ICD9: 493.11, ICD10: J45.52 (primary diagnosis) Mild exac URI Did well after neb bud and first NUCALA shot 2. Pulmonary eosinophilia (HCC) - ICD9: 518.3, ICD10: J82.89 BRAYAN 71 IGE 208 RAST +++CAT; DOG; MITES 15% eosins; Abs eosins 1540 cells 3. Viral URI; nonRSV nonflu, nonCovid Robson Zuniga MD PLAN: MEPOLIZUMAB very appropriate; consider xolair if no response with RAST/IGE; INsurance change to [facility]?? 2. PRED BURST, high dose ICS, LTA 3. Consider NSAID sensitivity asthma 4. Consider LAMA ADDITION IF NO NUCALA BUT wont go to T2 eosinophilic pathway help 5. She works in [employer] office!! Drug management reviewed Patient discharge instructions given See AVS Patient's questions and concerns were addressed prior to discharge today. Objective testing was reviewed with this visit. Followup discussed. Communication to associated physician to be sent via correspondence. SIGNATURE: Robson Zuniga MD PATIENT NAME: Irvin Kline DATE: December 17, 2022 TIME: 10:41 AM PAGER/CONTACT #: [phone] documented in this encounter [facility] 12-12-2022 Instructions Madison Recinos APRN.[employer] PAYABLE ASSOCIATE - 12/12/2022 7:46 PM EDT ASTHMA GENERAL INFORMATION: Asthma is a chronic condition caused by narrowing of the air passages in the lungs. It may be triggered by pollen, dust, animal dander, molds, some foods, respiratory infections, exposure to smoke or fumes, exercise or emotional stress. It often comes on when the weather changes. The most common symptoms are wheezing, shortness of breath, and cough. Repeat attacks are common. INSTRUCTIONS: 1. Avoid exposure to pollen, dust, animal dander, molds, smoke, and other things that cause attacks at home and at work. Even if you are not sure what causes your attacks, you may have fewer attacks if you reduce the amount of dust in your home. Replacing you pillows or mattress with materials that do not cause allergies may also help. 2. Drink 8 to 10 glasses of water or other liquids each day to help thin mucus so that it can be coughed up more easily. 3. You should try to be as physically active as possible. If a certain type of exercise causes an attack, you should try to avoid it. If you have an attack following exercise, you should sit and rest. 4. You may have been instructed to use a peak flow meter to monitor your asthma. Follow the directions you were given. 5. Take your medication as prescribed. Do not overuse your inhalers! CALL YOUR DOCTOR IF: 1. You have wheezing and shortness of breath even though you are taking medicine to prevent attacks. 2. You develop a temperature over 100.4 F (38 C), muscle aches, chest pain, thickening of mucus, or a change in the color of mucus to yellow, green, proctor, or bloody. 3. You have any problems that may be related to the medicine you are taking. RETURN TO THE ED IF: 1. You have an asthma attack that is not relieved by treatment with your usual medicines. 2. You have increasing shortness of breath. documented in this encounter [facility] 12-12-2022 History of Presen t illness Narrative I have communicated my name and active licensure. The patient's identity and physical location were verified at the time of this visit. Either the patient or their legal agency service representative has been informed of the risks and benefits of -- and alternatives to -- treatment through a remote evaluation and consents to proceed with the evaluation remotely. Telemedicine Visit - Distance Health Virtual Visit Note Patient seen on Beta Dash Video Visit platform. Location of patient: [place] History of Present Illness Irvin Kline is a 32 year old year old female who presents for symptoms that started yesterday. Patient was evaluated at [facility] on 12/06; had negative COVID, influenza, and RSV. PMH significant for asthma; uses Symbicort, Pulmicort BID, and Singulair daily, albuterol PRN. Recently started Nucala - has had one dose as second dose has been delayed due to availability. Patient reports she usually has asthma exacerbations around seasonal/weather changes. Symptoms include: Positive for barky cough, SOB, tightness; denies wheezing, difficulty breathing. Denies symptoms worsening throughout any time during the day. Obtained new inhaler yesterday - states she has 130 puffs left. Reports pulse ox is 96-98%. Patient reports she has had to go to the ED before for asthma exacerbation in 05/2022. Negative for Fever, Chills/Sweats, Hemoptysis, FRANKLIN, PND, Rhinorrhea, Face pain/pressure, Headache, Teeth pain , Otalgia, Sore throat, Nausea, and Emesis Oral intake: Adequate Tobacco use: No Second hand smoke exposure: No Recent exposure to strep:No OTC meds/remedies that patient has tried: Albuterol (inhaler, nebulizer); states she did two nebulizer treatments back to back last night with some relief. PAST MEDICAL HISTORY Diagnosis Date Anemia Asthma No past surgical history on file. No family history on file. Social History Tobacco Use Smoking status: Never Smokeless tobacco: Never Vaping Use Vaping Use: Never used Substance Use Topics Alcohol use: No Drug use: No Current Outpatient Medications Medication Sig meloxicam (MOBIC) 7.5 mg tablet Take 1 tablet by mouth once daily. tirzepatide (MOUNJARO) 2.5 mg/0.5 mL pen injector Inject 2.5 mg subcutaneously one time a week. citalopram (CELEXA) 40 mg tablet take 1 tablet by mouth every day mepolizumab (NUCALA) 100 mg injection Inject 100 mg subcutaneously every 4 weeks. ferrous sulfate 325 mg (65 mg iron) tablet TAKE 1 TABLET BY MOUTH TWICE A DAY montelukast (SINGULAIR) 10 mg tablet TAKE 1 TABLET BY MOUTH EVERY DAY lamoTRIgine (LAMICTAL) 25 mg tablet TAKE 1 TABLET BY MOUTH EVERYDAY AT BEDTIME budesonide (PULMICORT) 0.5 mg/2 mL nebulizer solution Use 2 mL via nebulizer every 12 hours. Inhale over 5-15 minutes budesonide-formoterol (SYMBICORT) 160-4.5 mcg/actuation inhaler Inhale 2 Puffs as instructed twice daily. albuterol HFA (PROAIR HFA) 90 mcg/actuation inhaler Inhale 2 Puffs as instructed every 6 hours as needed for wheezing/shortness of breath. albuterol (PROVENTIL) 2.5 mg /3 mL (0.083 %) nebulizer solution Use 3 mL via nebulizer every 4 hours as needed for wheezing/shortness of breath. Inhale by nebulizer over 5-15 minutes. Nebulizer and Compressor For Neb Use as directed ergocalciferol 50,000 unit capsule (VITAMIN D2, DRISDOL) Take 1 capsule by mouth one time a week. FEXOFENADINE HCL (LAQUITA ALLERGY ORAL) Take by mouth once daily. No current facility-administered medications for this visit. ALLERGIES Allergen Reactions Rocephin [Ceftriaxo* Anaphylaxis per pt mother was 3yo Video Exam (Examination performed via Video enabled technology) General appearance: Alert, oriented, pleasant, in NAD :Yes Ill appearing :No Lethargic appearing :No Eyes: Sclera clear :Yes Conjunctiva without erythema :Yes Ears: Tragus / outer ear tenderness by self palpation :No Oropharynx: normal, no erythema Frontal sinus tenderness by self palpation;No Maxillary sinus tenderness by self palpation :No Tender cervical adenopathy by self palpation :No Respiratory distress :No Coughing noted : +tight bronchial cough Audible wheezing noted :No ASSESSMENT/PLAN: 1. Severe persistent asthma with acute exacerbation - ICD9: 493.92, ICD10: J45.51 - PREDNISONE 20 MG TABLET - Severe persistent asthma acute excacerbation no respiratory distress - Exacerbation treatment of prednisone taper; patient reports she has greatest success with this - Avoidance of triggers recommended - Continue with daily asthma medications - Do not use albuterol inhaler/nebulizer more frequently than Q4H; if needing albuterol more frequently, patient agreeable to go to ED - Has follow up with pulm on 12/17 - Signs and symptoms reviewed that would warrant an ED visit, including but not limited to: using albuterol more frequently than Q4H, pulse ox <92% with respiratory symptoms or <90% without respiratory symptoms, difficulty breathing, chest pain, or other concerning symptoms - All questions answered Madison Recinos APRN.[employer] If you let us know who your primary care provider is, we will send them a notification of today s visit through our electronic medical records system. Since not all providers have access to our notifications, we strongly encourage you to share the following record of today s visit with your primary care provider at your next visit. This will help in providing you the best care. If you do not have an established Primary Care physician and would like to continue care with a [facility] Virtual Primary Care physician, please ask your provider to place a Establish Primary Care order. Use Link Trigger to manage your care, wherever you are, 09/09, on your mobile device or computer. Link Trigger connects you to [facility] so you can access all your health information in one place and also schedule and request virtual appointments with primary care providers. documented in this encounter [facility] 12-10-2022 Miscellaneous Notes Order for nebulizer and supplies signed and faxed back to [facility]. Liliya NAYLOR documented in this encounter [facility] 12-09-2022 Miscellaneous Notes 1st Attempt Irvin Kline needs to reschedule this appointment with madie Hough because of unavailability. She should be rescheduled for first available. Please assist her with appointment rescheduling. If unable to do so, please verify best method of contact, and send staff message to the pool so the department may assist her. Thank you, Jess Martin documented in this encounter [facility] 12-06-2022 Instructions Mari Mancera PA-C - 12/06/2022 5:45 PM EDT ASSESSMENT/PLAN: 1. Viral URI with cough - ICD9: 465.9, ICD10: J06.9 Started today (12/06/22) - COVID & INFLUENZA A/B & RSV NAAT, ROUTINE Flonase Continue Singular and Laquita OTC Decongestant- sudafed Use your Pulmocort and albuterol as directed Tylenol and Motrin for pain and fever Saline Nasil spray, Neti Pot, vaporizer, Vicks. Try Cepocol lozenges or Chloraseptic throat spray. Warm salt water gargles. Cough and deep breath- 10x/hr while awake. May use OTC Mucinex as directed for cough Call PCP if sx worsen or no better. If symptoms worsen, or new symptoms develop go to ER. If you have worsening of breathing or breathing changes- go to ER. If you have persistent fever unrelieved by Tylenol/Motrin- go to the ER. Follow up as needed. Barriers to learning: none. The patient verbalizes understanding and is in agreement with plan of care. This patient encounter involved the screening or treatment of novel coronavirus infection (COVID-19). - Red flags for in person care discussed - All questions answered Mari Mancera PA-C documented in this encounter [facility] 12-06-2022 History of Presen t illness Narrative Surgical mask, face shield, N95, and gloves worn for all in-person care. 12/06/2022 Patient presents with: Viral Syndrome: Sxs started today she has a runny nose has taken allergy meds, ears are clogged. SUBJECTIVE: This is a 32 year old with asthma and pulmonary eosinophilia that is here today for concern for URI symptoms and cough that started today. Complains of sinus congestion/drainage, ear fullness, and cough that started today (12/06/22). Denies fever, chills, sweats, or fatigue. Patient denies wheezing, shortness of breath, increased WOB, or chest pain. She uses Pulmicort, prn albuterol, and Singulair for asthma Has not felt the need to use her albuterol. COVID exposure: none Influenza exposure: none RSV exposure: none Covid Immunization Dates Discontinued - Covid-19 Vaccine Discontinued 11/26/2022 Frequency changed to Never by Donald Snowden DO (Patient Preference) 07/12/2020 Imm Admin: COVID-19 original vaccine, full dose, monovalent (MODERNA) 06/12/2020 Imm Admin: COVID-19 original vaccine, full dose, monovalent (MODERNA) COVID vaccine: yes History of COVID: - Influenza vaccine: yes Asthma: yes Pneumonia: none Tobacco: none Pain on scale of 0-10 with 0 being no pain and 10 being greatest pain: 0 Nothing makes the symptoms better. Nothing makes them worse. Self-treatment:. none The severity is mild and the symptoms are not improving. The patient did not have a similar problem in the last 3 months. The patient did not take any antibiotics in the last 3 months. Barriers to learning: none. Reviewed meds, OTCs, herbals or supplements. Reviewed allergies, medications, social history, and past medical history. PAST MEDICAL HISTORY Diagnosis Date Anemia Asthma ALLERGIES Rocephin [Ceftriaxone Sodium] MEDICATIONS Current Outpatient Medications Medication Sig meloxicam (MOBIC) 7.5 mg tablet Take 1 tablet by mouth once daily. tirzepatide (MOUNJARO) 2.5 mg/0.5 mL pen injector Inject 2.5 mg subcutaneously one time a week. Phentermine HCl (ADIPEX-P) 37.5 mg tablet Take 1 tablet by mouth once daily for 30 days. 1 po daily bmi 46 citalopram (CELEXA) 40 mg tablet take 1 tablet by mouth every day mepolizumab (NUCALA) 100 mg injection Inject 100 mg subcutaneously every 4 weeks. ferrous sulfate 325 mg (65 mg iron) tablet TAKE 1 TABLET BY MOUTH TWICE A DAY montelukast (SINGULAIR) 10 mg tablet TAKE 1 TABLET BY MOUTH EVERY DAY lamoTRIgine (LAMICTAL) 25 mg tablet TAKE 1 TABLET BY MOUTH EVERYDAY AT BEDTIME budesonide (PULMICORT) 0.5 mg/2 mL nebulizer solution Use 2 mL via nebulizer every 12 hours. Inhale over 5-15 minutes budesonide-formoterol (SYMBICORT) 160-4.5 mcg/actuation inhaler Inhale 2 Puffs as instructed twice daily. albuterol HFA (PROAIR HFA) 90 mcg/actuation inhaler Inhale 2 Puffs as instructed every 6 hours as needed for wheezing/shortness of breath. albuterol (PROVENTIL) 2.5 mg /3 mL (0.083 %) nebulizer solution Use 3 mL via nebulizer every 4 hours as needed for wheezing/shortness of breath. Inhale by nebulizer over 5-15 minutes. Nebulizer and Compressor For Neb Use as directed ergocalciferol 50,000 unit capsule (VITAMIN D2, DRISDOL) Take 1 capsule by mouth one time a week. FEXOFENADINE HCL (LAQUITA ALLERGY ORAL) Take by mouth once daily. No current facility-administered medications for this visit. Medications and allergies reviewed by this provider. SOCIAL HISTORY Social History Tobacco Use Smoking status: Never Smokeless tobacco: Never Vaping Use Vaping Use: Never used Substance Use Topics Alcohol use: No Drug use: No REVIEW OF SYSTEMS Review of Systems ROS: constitutional: neg, HENT-sinus symptoms, Eyes- neg, heart-neg, respiratory-Cough, GI-neg, -neg, skin-neg, Allergy- neg, lymph-neg, neuro-neg, psych-neg- All systems neg except as noted above in HPI. OBJECTIVE: BP 115/50 Pulse 69 Temp 36.9 C (98.4 F) Wt 122.2 kg (269 lb 8 oz) LMP 11/21/2022 (Exact Date) SpO2 98% BMI 46.26 kg/m . Vital signs reviewed by this provider. Physical Exam Vitals reviewed. Constitutional: General: She is not in acute distress. Appearance: Normal appearance. She is well-developed and normal weight. She is not ill-appearing, toxic-appearing or diaphoretic. HENT: Head: Normocephalic and atraumatic. No right periorbital erythema or left periorbital erythema. Salivary Glands: Right salivary gland is not diffusely enlarged or tender. Left salivary gland is not diffusely enlarged or tender. Right Ear: Tympanic membrane, ear canal and external ear normal. Left Ear: Tympanic membrane, ear canal and external ear normal. Nose: Congestion and rhinorrhea present. Rhinorrhea is clear. Right Sinus: No maxillary sinus tenderness or frontal sinus tenderness. Left Sinus: No maxillary sinus tenderness or frontal sinus tenderness. Mouth/Throat: Lips: Maili. No lesions. Mouth: Mucous membranes are moist. No oral lesions. Dentition: No gum lesions. Tongue: No lesions. Tongue does not deviate from midline. Palate: No mass and lesions. Pharynx: Oropharynx is clear. No pharyngeal swelling, oropharyngeal exudate, posterior oropharyngeal erythema or uvula swelling. Tonsils: No tonsillar exudate or tonsillar abscesses. Eyes: General: Lids are normal. No scleral icterus. Right eye: No discharge. Left eye: No discharge. Extraocular Movements: Extraocular movements intact. Conjunctiva/sclera: Conjunctivae normal. Pupils: Pupils are equal, round, and reactive to light. Pupils are equal. Cardiovascular: Rate and Rhythm: Normal rate and regular rhythm. Heart sounds: Normal heart sounds. Pulmonary: Effort: Pulmonary effort is normal. Breath sounds: Normal breath sounds and air entry. Musculoskeletal: Cervical back: Full passive range of motion without pain. No spinous process tenderness or muscular tenderness. Lymphadenopathy: Head: Right side of head: No submental, submandibular, tonsillar, preauricular or posterior auricular adenopathy. Left side of head: No submental, submandibular, tonsillar, preauricular or posterior auricular adenopathy. Cervical: No cervical adenopathy. Skin: General: Skin is warm. Capillary Refill: Capillary refill takes less than 2 seconds. Findings: No rash. Neurological: General: No focal deficit present. Mental Status: She is alert and oriented to person, place, and time. Cranial Nerves: No facial asymmetry. Psychiatric: Attention and Perception: Attention normal. Behavior: Behavior is cooperative. Irvin Kline - Meets symptom-based criteria for testing and is high risk. - Discussed symptom monitoring and supportive care - Red flag symptoms requiring follow up discussed ASSESSMENT/PLAN: 1. Viral URI with cough - ICD9: 465.9, ICD10: J06.9 X 1 day - COVID & INFLUENZA A/B & RSV NAAT, ROUTINE Start your Flonase Continue Singular and Laquita OTC Decongestant- sudafed Use your Pulmocort and albuterol as directed Tylenol and Motrin for pain and fever Saline Nasil spray, Neti Pot, vaporizer, Vicks. Try Cepocol lozenges or Chloraseptic throat spray. Warm salt water gargles. Cough and deep breath- 10x/hr while awake. May use OTC Mucinex as directed for cough Call PCP if sx worsen or no better. If symptoms worsen, or new symptoms develop go to ER. If you have worsening of breathing or breathing changes- go to ER. If you have persistent fever unrelieved by Tylenol/Motrin- go to the ER. Follow up as needed. Barriers to learning: none. The patient verbalizes understanding and is in agreement with plan of care. This patient encounter involved the screening or treatment of novel coronavirus infection (COVID-19). - Red flags for in person care discussed - All questions answered Mari Mancera PA-C Medical Decision Making: Problems: Moderate: Acute illness with systemic symptoms Data: Unique test(s) ordered: 1 Risk: Low: Low risk from testing/treatment Medical Decision Making Level: 3 - Low I spent a total of 20 minutes on the date of the service which included preparing to see the patient, [id number] patient care, completing clinical documentation, performing a medically appropriate examination, counseling and educating the patient/family/caregiver, and ordering medications, tests, or procedures. documented in this encounter [facility] 11-26-2022 Miscellaneous Notes Was seen today. Pts upcoming ortho appt requires an ankle xray. Please place order and inform patient. Thank you. documented in this encounter [facility] 11-26-2022 History of Presen t illness Narrative Pt here to discuss wt loss options, states not losing wt, trouble controlling her appetite The history is provided by the patient. Musculoskeletal Problem This is a new problem. The current episode started more than 1 month ago. The problem occurs daily. The problem has been gradually worsening. Associated symptoms include joint swelling and myalgias. PAST MEDICAL HISTORY Diagnosis Date Anemia Asthma No past surgical history on file. Social History Tobacco Use Smoking status: Never Smokeless tobacco: Never Vaping Use Vaping Use: Never used Substance Use Topics Alcohol use: No Drug use: No ALLERGIES: ALLERGIES Allergen Reactions Rocephin [Ceftriaxo* Anaphylaxis per pt mother was 3yo MEDICATIONS citalopram (CELEXA) 40 mg tablet take 1 tablet by mouth every day mepolizumab (NUCALA) 100 mg injection Inject 100 mg subcutaneously every 4 weeks. ferrous sulfate 325 mg (65 mg iron) tablet TAKE 1 TABLET BY MOUTH TWICE A DAY montelukast (SINGULAIR) 10 mg tablet TAKE 1 TABLET BY MOUTH EVERY DAY lamoTRIgine (LAMICTAL) 25 mg tablet TAKE 1 TABLET BY MOUTH EVERYDAY AT BEDTIME budesonide (PULMICORT) 0.5 mg/2 mL nebulizer solution Use 2 mL via nebulizer every 12 hours. Inhale over 5-15 minutes budesonide-formoterol (SYMBICORT) 160-4.5 mcg/actuation inhaler Inhale 2 Puffs as instructed twice daily. albuterol HFA (PROAIR HFA) 90 mcg/actuation inhaler Inhale 2 Puffs as instructed every 6 hours as needed for wheezing/shortness of breath. albuterol (PROVENTIL) 2.5 mg /3 mL (0.083 %) nebulizer solution Use 3 mL via nebulizer every 4 hours as needed for wheezing/shortness of breath. Inhale by nebulizer over 5-15 minutes. Nebulizer and Compressor For Neb Use as directed ergocalciferol 50,000 unit capsule (VITAMIN D2, DRISDOL) Take 1 capsule by mouth one time a week. FEXOFENADINE HCL (LAQUITA ALLERGY ORAL) Take by mouth once daily. meloxicam (MOBIC) 7.5 mg tablet Take 1 tablet by mouth once daily. tirzepatide (MOUNJARO) 2.5 mg/0.5 mL pen injector Inject 2.5 mg subcutaneously one time a week. No family history on file. REVIEW OF SYSTEMS Review of Systems Constitutional: Negative. Respiratory: Negative. Cardiovascular: Negative. Gastrointestinal: Negative. Musculoskeletal: Positive for gait problem, joint swelling and myalgias. All other systems reviewed and are negative. PHYSICAL EXAM: BP 102/70 Pulse 64 Temp 36.1 C (97 F) (Tympanic) Ht 162.6 cm (5' 4) Wt 123.5 kg (272 lb 3.2 oz) LMP 11/21/2022 (Exact Date) SpO2 97% BMI 46.72 kg/m Physical Exam Vitals and nursing note reviewed. Constitutional: Appearance: She is well-developed. HENT: Head: Normocephalic and atraumatic. Right Ear: External ear normal. Left Ear: External ear normal. Nose: Nose normal. Eyes: Conjunctiva/sclera: Conjunctivae normal. Pupils: Pupils are equal, round, and reactive to light. Cardiovascular: Rate and Rhythm: Normal rate and regular rhythm. Heart sounds: Normal heart sounds. Pulmonary: Effort: Pulmonary effort is normal. Breath sounds: Normal breath sounds. Abdominal: General: Bowel sounds are normal. Palpations: Abdomen is soft. Musculoskeletal: General: Swelling and tenderness present. Normal range of motion. Cervical back: Normal range of motion and neck supple. Skin: General: Skin is warm and dry. Neurological: Mental Status: She is alert and oriented to person, place, and time. ASSESSMENT/PLAN: 1. Foot pain, right - ICD9: 729.5, ICD10: M79.671 (primary diagnosis) - CONSULT TO ORTHOPAEDIC SURGERY 2. Abnormal weight gain - ICD9: 783.1, ICD10: R63.5 Called in the inj if not covered did discuss other options Donald Snowden DO documented in this encounter [facility] 11-04-2022 Miscellaneous Notes Patient phones requesting refills as follows: Requested Prescriptions Pending Prescriptions Disp Refills citalopram (CELEXA) 40 mg tablet [Pharmacy Med Name: CITALOPRAM HBR 40 MG TABLET] 90 tablet 0 Sig: take 1 tablet by mouth every day Please review and advise. Mari Argueta Ma documented in this encounter [facility] 10-30-2022 Miscellaneous Notes Peer to peer approved. Nucala auto injector approved through 10/30/2023. REQ# [id number] Pt will need to call pharmacy to set up delivery Please sign pended order for nucala to specialty pharmacy. Peer to peer scheduled for this Friday at 130 PM. The provider will call the [facility] office number. Court Funes RN [facility] called asking when you're available to do a [id number] for Nucala. They can be reached at Reference #: [id number] Court Funes RN PA denied due to need for additional information, Spirometry and Eosinphils sent to aena via fax PA for nucala sent to plan via phone, response by 10/22/2022 REQ# [id number] documented in this encounter [facility] 10-28-2022 Miscellaneous Notes Patient was last seen on 08/22/22 by Krystle Espinoza. Requested Prescriptions Pending Prescriptions Disp Refills ferrous sulfate 325 mg (65 mg iron) tablet [Pharmacy Med Name: FERROUS SULFATE 325 MG TABLET] 180 tablet 1 Sig: TAKE 1 TABLET BY MOUTH TWICE A DAY Please review and advise. SERGE London documented in this encounter [facility] 10-28-2022 Miscellaneous Notes Opened in error documented in this encounter [facility] 10-23-2022 Miscellaneous Notes Order for nebulizer faxed to [facility]. Liliya NAYLOR Patient's nebulizer has stopped working, order pended for new one. Liliya NAYLOR documented in this encounter [facility] 10-22-2022 Miscellaneous Notes Pt notified no questions or concerns at this time. Images from the original note were not included. Message Received: Today Robson Zuniga MD [facility] Pul[facility] Nurse Juan Tell kristi PA for biologic; she is very allergic to CAts, some dog, dust mites not surprising. Called and left a message for pt to call the office for results. Jennifer Blackman documented in this encounter [facility] 10-07-2022 Miscellaneous Notes [facility] paperwork signed and faxed back to [facility]. Liliya NAYLOR documented in this encounter [facility] 10-05-2022 Miscellaneous Notes Last appointment: 08/22/22 Next appointment: 11/26/22 Pharmacy verified in [facility]. Refill(s) requested: Requested Prescriptions Pending Prescriptions Disp Refills montelukast (SINGULAIR) 10 mg tablet [Pharmacy Med Name: MONTELUKAST SOD 10 MG TABLET] 90 tablet Sig: TAKE 1 TABLET BY MOUTH EVERY DAY Order(s) pended. Please advise. Oma Phillips LPN, CMA documented in this encounter [facility] 09-30-2022 Miscellaneous Notes Patient phones requesting refills as follows: Requested Prescriptions Pending Prescriptions Disp Refills lamoTRIgine (LAMICTAL) 25 mg tablet 90 tablet 0 Sig: TAKE 1 TABLET BY MOUTH EVERYDAY AT BEDTIME Please review and advise. Mari Argueta Ma documented in this encounter [facility] 09-26-2022 Instructions Robson Zuniga MD - 09/26/2022 1:15 PM EDT May benefit from NUCALA shots, biologics for asthma Prednisone burst Nebulized budesonide twice a day; stay on symbicort Chest xray is important Labs ordered documented in this encounter [facility] 09-26-2022 History of Presen t illness Narrative Images from the original note were not included. PULMONARY MEDICINE HISTORY AND PHYSICAL Patient Name: Irvin Kline PRIMARY CARE PHYSICIAN: Donald Snowden DO REFERRING PHYSICIAN: CHIEF COMPLAINT: severe asthma HISTORY OF PRESENT ILLNESS: Irvin Kline is a 32 year old female. This patient is here for first Pulmonary office visit and consultation. I reviewed available objective data and imaging as available. Patient states she had asthma at age 2. She was life flighted as a child to [place] on 1 occasion. Never been on a ventilator. Lifetime non-smoker. She is not aware of pulmonary infiltrates. She has been on inhalers for many years. She feels she is lost control of her asthma. She is on frequent prednisone although not always responsive by her description. She has several emergency room or [facility] visits including yesterday. She has had numerous burst of steroids in the last couple years. She has had no hospitalizations. She recently went through a canister of albuterol within 2 weeks. She states she has been on longstanding Symbicort. They recently changed her to Advair 100 which did not work for her but it probably was too low of a dose. She has been on longstanding montelukast. She has known allergies to pollens and grasses. She is sensitive to barometric changes and weather changes. She is not really PET allergic. She does not have nasal polyps. She does not have eczema triad. She has never been on Biologics. She really does not have industrial exposure. She works at [employer]. She does have obesity. No history of hypertension. No history of cardiac disease. No diabetes She had PFTs today and she had moderate obstruction. She went to [facility] yesterday prescribed prednisone but she wanted to see me before getting it filled. She has been compliant with her Symbicort 160. PAST MEDICAL HISTORY Diagnosis Date Anemia Asthma History reviewed. No pertinent surgical history. History reviewed. No pertinent family history. No reported family hx of ILD fibrosis, PAH, Tb, lung cancer, A1AT deficiency Social History Tobacco Use Smoking status: Never Smokeless tobacco: Never Vaping Use Vaping Use: Never used Substance Use Topics Alcohol use: No Drug use: No Ambulatory, see vaccine HX, Occupation sheetz indoors Smoking never ALLERGIES: ALLERGIES Allergen Reactions Rocephin [Ceftriaxo* Anaphylaxis per pt mother was 3yo CURRENT OUTPATIENT MEDICATIONS: albuterol HFA (PROAIR HFA) 90 mcg/actuation inhaler Inhale 2 Puffs as instructed every 6 hours as needed for wheezing/shortness of breath. albuterol (PROVENTIL) 2.5 mg /3 mL (0.083 %) nebulizer solution Use 3 mL via nebulizer every 4 hours as needed for wheezing/shortness of breath. Inhale by nebulizer over 5-15 minutes. benzonatate (TESSALON PERLES) 100 mg capsule Take 2 capsules by mouth every 8 hours as needed. predniSONE (DELTASONE) 20 mg tablet Take 2 tablets by mouth once daily for 5 days. lamoTRIgine (LAMICTAL) 25 mg tablet TAKE 1 TABLET BY MOUTH EVERYDAY AT BEDTIME fluticasone-salmeterol (ADVAIR DISKUS) 100-50 mcg/dose inhaler Inhale 1 Puff as instructed twice daily. RINSE AND GARGLE MOUTH WITH WATER AFTER EACH USE. citalopram (CELEXA) 40 mg tablet Take 1 tablet by mouth once daily. montelukast (SINGULAIR) 10 mg tablet Take 1 tablet by mouth once daily. ferrous sulfate 325 mg (65 mg iron) tablet TAKE 1 TABLET BY MOUTH TWICE A DAY Nebulizer and Compressor For Neb Use as directed ergocalciferol 50,000 unit capsule (VITAMIN D2, DRISDOL) Take 1 capsule by mouth one time a week. FEXOFENADINE HCL (LAQUITA ALLERGY ORAL) Take by mouth once daily. REVIEW OF SYSTEMS Constitutional: no acute distress throughout the interview. No dyspnea throughout the interview; not acutely ill. No fevers, chills, night sweats HEENT: No changes in hearing or vision, no epistaxis, audible voice. Denies lymphadenopathy; No stated tinnitus. RESPIRATORY: Daily dyspnea, daily wheezing, episodic shortness of breath, no hemoptysis, nonpurulent phlegm, no pleuritic pain, episodic FRANKLIN JD: denies apnea, hypersomnolence, did not mention cpap use CARDIOVASCULAR: no acute palpitations, no heart failure, no edema, no chest pain, No hx CABG GASTROINTESTINAL: Negative for acute blood in stools or black stools no significant weight loss. No liver failure or active hepatitis. No biliary colic. GENITOURINARY: No history of acute dysuria, hematuria MUSCULOSKELETAL: no acute myositis. Orthopedic not bad. No serositis or scleroderma; no major arthralgias NEUROLOGIC:Negative for focal numbness or weakness, dizziness or syncope. No recent cva. No acute gait disturbance. No active seizures. SKIN: Negative for major new lesions, rash, or urticaria / itching. No jaundice HEM/LYMPHATIC/IMMUNE: no anemia. No hx lymphoma. Denies bleeding diathesis. ENDOCRINE: weight BMI 45, no goiter. No unusual polyuria. The remainder of the ROS was negative except what is stated above, or as per documentation. PHYSICAL EXAMINATION: VITAL SIGNS: BP 111/62 Pulse 85 Temp (Src) 98.2 (Oral) Resp 13 Ht 5' 4 (1.63m) Wt 266 lb (120.7kg) SpO2 94% LMP 08/09/2022 BMI 45.64 kg/(m^2). General appearance: well-developed well-nourished. Cordial. Comprehends. Somewhat stoic Skin: Normal turgor. Not pallorous. Not diaphoretic. No jaundice. No sclerodermal changes. Various tattoos but no eczema or uticaria Eyes: Pupils equally reactive to light. Midline. No jaundice. anicteric ENT: No palpable lymphadenopathy. Hearing intact. no neck scar. No gross thyromegaly. No oral thrush Mallampati 3 Heme/Lymph: No significant neck adenopathy. Lungs: Clear to auscultation. Decent inspiratory capacity. Mild biphasic wheeze. No significant hyperinflation. No fibrotic rales. No pleural rub. No obvious effusion. Heart:: Regular rate and rhythm. Normal heart tones. BP as documented. No significant murmur. No peripheral edema. Normal P2 . Good hand perfusion. ABD: Abdomen soft, non-tender. No masses, organomegaly. Obese Musculoskeletal: normal gait grossly, no acute synovitis. Ext: No deformities, no edema, or skin discoloration. adequate capillary refill Neuro: Nonfocal. Alert. Oriented. Speech intact. No gross cerebellar dysfunction. No tremor or spasticity. Psych: coherent. Engaged. Not delusional LAST LAB RESULTS: SPIROMETRY WITH DILATOR IF OBSTRUCTED ([id number]) - ordered on 09/26/22 No textual results for order. No results found for this basename: inr:1,ptsec:1 Glucose (mg/dL) Date Value 06/16/2022 85 Potassium (mmol/L) Date Value 06/16/2022 3.5 Sodium (mmol/L) Date Value 06/16/2022 143 Chloride (mmol/L) Date Value 06/16/2022 106 CO2 (mmol/L) Date Value 06/16/2022 27 Creatinine (mg/dL) Date Value 06/16/2022 0.63 BUN (mg/dL) Date Value 06/16/2022 8 Anion Gap (mmol/L) Date Value 06/16/2022 10 Calcium, Total (mg/dL) Date Value 06/16/2022 9.2 Protein, Total (g/dL) Date Value 04/02/2022 7.4 Albumin (g/dL) Date Value 04/02/2022 3.8 Bilirubin, Total (mg/dL) Date Value 04/02/2022 0.3 Alkaline Phosphatase (U/L) Date Value 04/02/2022 111 AST (U/L) Date Value 04/02/2022 27 ALT (U/L) Date Value 04/02/2022 33 Glucose Date Value Ref Range Status 06/16/2022 85 74 - 99 mg/dL Final Comment: The [place] [employer] (ADA) provides guidance for cutoff values for fasting glucose and random glucose. The ADA defines fasting as no caloric intake for at least 8 hours. Fasting plasma glucose results between 100 to 125 mg/dL indicate increased risk for diabetes (prediabetes). Fasting plasma glucose results greater than or equal to 126 mg/dL meet the criteria for diagnosis of diabetes. In the absence of unequivocal hyperglycemia, results should be confirmed by repeat testing. In a patient with classic symptoms of hyperglycemia or hyperglycemic crisis, random plasma glucose results greater than or equal to 200 mg/dL meet the criteria for diagnosis of diabetes. Reference: Standards of Medical Care in Diabetes 2016, [place] [employer]. Diabetes Care. 2016.39(Suppl 1). Glucose (mg/dL) Date Value 06/16/2022 85 Potassium (mmol/L) Date Value 06/16/2022 3.5 Sodium (mmol/L) Date Value 06/16/2022 143 Chloride (mmol/L) Date Value 06/16/2022 106 CO2 (mmol/L) Date Value 06/16/2022 27 Creatinine (mg/dL) Date Value 06/16/2022 0.63 BUN (mg/dL) Date Value 06/16/2022 8 Anion Gap (mmol/L) Date Value 06/16/2022 10 Calcium, Total (mg/dL) Date Value 06/16/2022 9.2 DATA: Diagnostic tests reviewed for today's visit, films/specimens were personally reviewed by me: Labs: Echo: Chest xray: NL JUNE [address] Chest - Impression Only No resulted procedures found. CT CHEST: None Available Chest imaging independently reviewed and analyzed PFT: Pre LLN Pred ULN %Pred Post %Pred %Chg SPIROMETRY FVC (L) 2.95 2.72 3.53 4.36 83 3.45 97 14 FEV1 (L) 1.93 2.29 2.99 3.66 64 2.50 83 18 FEV1/FVC 0.65 0.74 0.85 0.94 76 0.72 85 10 PEF L/s (L/sec) 5.10 5.30 7.01 8.73 72 6.21 88 21 FEF50 (L/sec) 1.40 2.39 4.00 5.61 35 3.36 84 140 FIF50 (L/sec) 4.00 3.23 -19 FEF50/FIF50 0.35 90-100 1.04 196 FIVC (L) 2.87 3.39 17 ZBY27-58 (L/sec) 1.03 2.22 3.49 4.97 29 2.70 77 162 Time (sec) 8.20 8.91 8 FET PEF (sec) 0.07 0.09 23 CHIKIS (L) 0.07 0.11 48 Vol Extrap % (%) 2 3 27 ASSESSMENT/PLAN: 1. Pulmonary eosinophilia (HCC) - ICD9: 518.3, ICD10: J82.89 (primary diagnosis) No infiltrates Doubt ABPA Abs eosins 600; 1500! 15% 2. Late onset asthma, severe persistent, with status asthmaticus - ICD9: 493.11, ICD10: J45.52 High eosins High exh NO Mod abn pft. Moderate reduction in FEV1 but severe reduction in midexpiratory flow rates small airways disease BD response in lab Nocturnal too Freq steroids Recent urgent care for exac Freq excessive B2 use On LABA/ICS/LTA; - SPIROMETRY WITH DILATOR IF OBSTRUCTED - NITRIC OXIDE, EXHALED - ALGN HALLWOOD GRP - IGE BLD ACT 6 VERY BAD Robson Zuniga MD PLAN: Biologics like mepolizumab likely very useful here , excellent candidate We discussed the FDA approved drug mepolizumab / Nucala , the IL-5 antagonist anti-eosinophilic drug. I stated small risk of hypersensitivity reaction, anaphylaxis, and small risk of shingles/ zoster event. Expected 100mg sq q 4 weeks. Discussed may improve asthma control including less exacerbations or hospitalizations and hopefully as a steroid-sparing agent. Insurance authorization will be pursued. CBC and diff lab work required. Patient agreed to proceed and informed consent personally obtained and will be documented. Optimize /LAMA/ICS, LTA; add neb budesonide to her max symbicort 160 3. Ige level, RAST, ASPERGILLUS 4. PFT REVIEWED (PRE PREDNISONE); moderate 5. TRIGGER avoidance 6. Vit D, calcium if ongoing pred like past few yrs; bone density some point Medications reviewed Education provided today regarding the stated disease states Patient Instructions given See AVS Written and verbal health teaching given to patient, patient verbalizes understanding and agrees with treatment plan. Followup discussed. Correspondence sent to referring physician. Electronically Signed: Robson Zuniga MD September 26, [address] DONALD HERNANDEZ for an opinion regarding ASTHMA. My final recommendations will be communicated back to the requesting physician by way of shared Medical record or letter to requesting physician via US mail. Medical Decision Making: Problems: High: Chronic illness with severe change Data: Unique source(s) for external note(s) reviewed: 2 Unique test result(s) reviewed: 2 Unique test(s) ordered: 3+ Independent interpretation of test from other physician/QHCP Risk: High: High risk from testing/treatment and Drug therapy requiring intensive monitoring Medical Decision Making Level: 5 - High documented in this encounter [facility] 09-26-2022 Procedure note Associated Ord er(s): NITRIC OXIDE, EXHALED RESPIRATORY THERAPY ORAL EXHALED NITRIC OXIDE SERVICE DATE: 09/26/2022 SERVICE TIME: 1:05 PM Oral Exhaled Nitric Oxide measurement: 71.0 (ppb) (A) Normal: Adult 5-20 ppb, pediatric (<12 years) 5-15 ppb High Normal / Increased: Adult 20-35 ppb, pediatric (<12 years) 15-25 ppb Moderately raised exhaled Nitric Oxide may indicate underlying inflammation, but note that: Cold and influenza can raise exhaled Nitric Oxide and some patients have higher baseline exhaled Nitric Oxide levels than others. High: Adult >35 ppb, pediatric (<12 years) >25 ppb Indicative of ongoing eosinophilic inflammation. Symptomatic patient likely to respond to steroids. Possible causes (if already on steroids): Poor compliance, recent allergen exposure, steroid dose inadequate, and steroid resistance. Note that not all patients with high exhaled nitric oxide levels display symptoms. Oral Exhaled Nitric Oxide measurement (Previous Encounters) Test Date Oral Exhaled Nitric Oxide (ppb) 09/26/2022 71.0 (A) NAME: Jennifer Willis PATIENT NAME: Irvin Kline DATE: September 26, 2022 TIME: 1:05 PM documented in this encounter [facility] 09-25-2022 Miscellaneous Notes Reason for call: History of asthma, worsening shortness of breath, no relief with inhalers, has attempted 2 nebulizer treatments back to back with no relief. Chest tightness that radiates to back (below shoulder blades) Outcome: Go to ED now, advised Patient that urgent care is appropriate with onsite X-ray, patient verbalized understanding. Reason for Disposition Chest pain Protocols used: Asthma [id number] documented in this encounter [facility] 08-22-2022 History of Presen t illness Narrative This note was created using Neogrowthriter. Subjective Irvin Kline is a 32 year old female. Patient presents with: Shortness of Breath: Wheezing x 1 week Pt here with asthma exacerbation. C/o sob and wheezing for the last week due to the environment. Did a nebulizer breathing treatment before she came. Normal O2 sat is 94-96% Is running 90-92% here. Needs to follow up with pulm States she doesn't think her Symbicort is working. The history is provided by the patient. 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 Review of Systems Constitutional: Negative for appetite change, chills, diaphoresis, fatigue and fever. HENT: Negative. Negative for congestion, ear pain, postnasal drip, rhinorrhea, sinus pressure, sinus pain, sneezing and sore throat. Eyes: Negative for redness and itching. Respiratory: Positive for cough, chest tightness, shortness of breath and wheezing. Cardiovascular: Negative for chest pain, palpitations and leg swelling. Genitourinary: Negative. Musculoskeletal: Negative. Skin: Negative for rash. Neurological: Negative for dizziness, syncope, weakness, light-headedness, numbness and headaches. Hematological: Negative. Psychiatric/Behavioral: Negative for dysphoric mood, self-injury, sleep disturbance and suicidal ideas. The patient is not nervous/anxious. All other systems reviewed and are negative. Objective BP 118/72 Pulse 85 Temp 37.1 C (98.8 F) (Tympanic) Ht 162.6 cm (5' 4) Wt 123.3 kg (271 lb 12.8 oz) LMP 08/09/2022 (Approximate) SpO2 92% BMI 46.65 kg/m PAST MEDICAL HISTORY Diagnosis Date Anemia Asthma No past surgical history on file. Current Outpatient Medications on File Prior to Visit Medication Sig citalopram (CELEXA) 40 mg tablet Take 1 tablet by mouth once daily. montelukast (SINGULAIR) 10 mg tablet Take 1 tablet by mouth once daily. albuterol HFA (PROAIR HFA) 90 mcg/actuation inhaler Inhale 2 Puffs as instructed every 6 hours as needed for wheezing/shortness of breath. lamoTRIgine (LAMICTAL) 25 mg tablet 1 po qhs albuterol (PROVENTIL) 2.5 mg /3 mL (0.083 %) nebulizer solution Use 3 mL via nebulizer every 4 hours as needed for wheezing/shortness of breath. Inhale by nebulizer over 5-15 minutes. ferrous sulfate 325 mg (65 mg iron) tablet TAKE 1 TABLET BY MOUTH TWICE A DAY Nebulizer and Compressor For Neb Use as directed ergocalciferol 50,000 unit capsule (VITAMIN D2, DRISDOL) Take 1 capsule by mouth one time a week. budesonide-formoterol (SYMBICORT) 160-4.5 mcg/actuation inhaler Inhale 2 Puffs as instructed twice daily. FEXOFENADINE HCL (LAQUITA ALLERGY ORAL) Take by mouth once daily. Hexnmubazocxukx-Yqfazjtrq-CP (BROMFED DM) 2-30-10 mg/5 mL syrup Take 5 mL by mouth four times daily as needed. (Patient not taking: Reported on 08/22/2022) meloxicam (MOBIC) 15 mg tablet (Patient not taking: Reported on 08/22/2022) No current facility-administered medications on file prior to visit. ALLERGIES Allergen Reactions Rocephin [Ceftriaxo* Anaphylaxis per pt mother was 3yo Physical Exam Vitals reviewed. Constitutional: General: She is awake. She is not in acute distress. Appearance: Normal appearance. She is well-developed. She is morbidly obese. She is not ill-appearing. HENT: Head: Normocephalic. Right Ear: Hearing, tympanic membrane, ear canal and external ear normal. Left Ear: Hearing, tympanic membrane, ear canal and external ear normal. Nose: Nose normal. No congestion or rhinorrhea. Right Sinus: No maxillary sinus tenderness or frontal sinus tenderness. Left Sinus: No maxillary sinus tenderness or frontal sinus tenderness. Mouth/Throat: Lips: Maili. Mouth: Mucous membranes are moist. Pharynx: Oropharynx is clear. Uvula midline. No pharyngeal swelling or posterior oropharyngeal erythema. Eyes: General: Right eye: No discharge. Left eye: No discharge. Extraocular Movements: Extraocular movements intact. Conjunctiva/sclera: Conjunctivae normal. Pupils: Pupils are equal, round, and reactive to light. Cardiovascular: Rate and Rhythm: Regular rhythm. Pulses: Normal pulses. Heart sounds: Normal heart sounds. Pulmonary: Effort: Pulmonary effort is normal. No respiratory distress. Breath sounds: Decreased air movement present. Examination of the right-upper field reveals wheezing. Examination of the left-upper field reveals wheezing. Examination of the right-middle field reveals wheezing. Examination of the left-middle field reveals wheezing. Examination of the right-lower field reveals wheezing. Examination of the left-lower field reveals wheezing. Wheezing present. No decreased breath sounds. Musculoskeletal: General: Normal range of motion. Cervical back: Full passive range of motion without pain, normal range of motion and neck supple. Right lower leg: No edema. Left lower leg: No edema. Lymphadenopathy: Cervical: No cervical adenopathy. Skin: General: Skin is warm and dry. Capillary Refill: Capillary refill takes less than 2 seconds. Findings: No rash. Neurological: General: No focal deficit present. Mental Status: She is alert and oriented to person, place, and time. Mental status is at baseline. Cranial Nerves: No cranial nerve deficit. Sensory: Sensation is intact. No sensory deficit. Motor: Motor function is intact. No weakness. Coordination: Coordination is intact. Gait: Gait is intact. Gait normal. Psychiatric: Attention and Perception: Attention and perception normal. Mood and Affect: Mood and affect normal. Speech: Speech normal. Behavior: Behavior normal. Behavior is cooperative. Thought Content: Thought content normal. Thought content does not include homicidal or suicidal ideation. Cognition and Memory: Cognition and memory normal. Judgment: Judgment normal. ASSESSMENT/PLAN: 1. Mild intermittent asthma with acute exacerbation - ICD9: 493.92, ICD10: J45.21 (primary diagnosis) - Avoidance of triggers recommended - needs to make pulmonary appt clara - XR CHEST 2V FRONTAL/LAT - PREDNISONE 20 MG TABLET- discussed use and side effects - FLUTICASONE 100 MCG-SALMETEROL 50 MCG/DOSE BLISTR POWDR FOR INHALATION - ED if severe, discussed red flag symptoms and when to be evaluated in the ED. 2. SOB (shortness of breath) - ICD9: 786.05, ICD10: R06.02 - XR CHEST 2V FRONTAL/LAT - PREDNISONE 20 MG TABLET 3. Wheezing - ICD9: 786.07, ICD10: R06.2 - XR CHEST 2V FRONTAL/LAT - PREDNISONE 20 MG TABLET Follow up as needed or sooner if new or worsening symptoms. Krystle Espinoza APRN.[employer] PA[employer]ABLE ASSOCIATE documented in this encounter [facility] 08-12-2022 Instructions Adriana Coughlin PA-C - 08/12/2022 4:35 PM EDT Otitis Media An ear infection is also called otitis media. Blocked or swollen eustachian tubes can cause an infection. Eustachian tubes connect the middle ear to the back of the nose and throat. They drain fluid from the middle ear. You may have a buildup of fluid in your ear. Germs build up in the fluid and infection develops. Medicines: You may need any of the following: Acetaminophen decreases pain and fever. It is available without a doctor's order. Ask how much to take and how often to take it. Follow directions. Read the labels of all other medicines you are using to see if they also contain acetaminophen, or ask your doctor or pharmacist. Acetaminophen can cause liver damage if not taken correctly. Do not use more than 4 grams (4,000 milligrams) total of acetaminophen in one day. NSAIDs , such as ibuprofen, help decrease swelling, pain, and fever. This medicine is available with or without a doctor's order. NSAIDs can cause stomach bleeding or kidney problems in certain people. If you take blood thinner medicine, always ask your healthcare provider if NSAIDs are safe for you. Always read the medicine label and follow directions. Ear drops may contain medicine to decrease pain and inflammation. Antibiotics help treat a bacterial infection. Take your medicine as directed. Contact your healthcare provider if you think your medicine is not helping or if you have side effects. Tell him or her if you are allergic to any medicine. Keep a list of the medicines, vitamins, and herbs you take. Include the amounts, and when and why you take them. Bring the list or the pill bottles to follow-up visits. Carry your medicine list with you in case of an emergency. Self-care: Apply heat on your ear for 15 to 20 minutes, 3 to 4 times a day or as directed. You can apply heat with an electric heating pad, hot water bottle, or warm compress. Always put a cloth between your skin and the heat pack to prevent bonds. Heat helps decrease pain. Apply ice on your ear for 15 to 20 minutes, 3 to 4 times a day for 2 days or as directed. Use an ice pack, or put crushed ice in a plastic bag. Cover it with a towel before you apply it to your ear. Ice decreases swelling and pain. Call your doctor if: You see blood or pus draining from your ear. Your ear pain gets worse or does not go away, even after treatment. The outside of your ear is red or swollen. You are vomiting or have diarrhea. You have questions or concerns about your condition or care. Go to the emergency department if: You have clear fluid coming from your ear. You have a stiff neck, headache, and a fever. documented in this encounter [facility] 08-12-2022 History of Presen t illness Narrative Subjective Irvin Kline is a 32 year old female with a past medical history of asthma, depression, and anxiety who presents to [facility] today for evaluation of right ear and jaw pain began yesterday. Denies any fevers. No cough, nasal congestion, or sore throat. Review of Systems Constitutional: Negative for chills, diaphoresis and fever. HENT: Positive for ear pain (right). Negative for congestion, ear discharge and sore throat. Skin: Negative for rash and wound. Neurological: Negative for weakness and headaches. All other systems reviewed and are negative. Objective BP 126/78 Pulse 83 Temp 36.6 C (97.8 F) Wt 126.1 kg (278 lb) LMP 08/09/2022 (Approximate) SpO2 100% BMI 47.72 kg/m Physical Exam Vitals reviewed. Constitutional: General: She is not in acute distress. Appearance: Normal appearance. She is normal weight. She is not ill-appearing or toxic-appearing. Comments: The patient appears to be non-toxic, in no acute distress, and resting comfortably on the table. HENT: Head: Normocephalic and atraumatic. Right Ear: Tympanic membrane is injected and erythematous. Left Ear: Tympanic membrane, ear canal and external ear normal. Eyes: Extraocular Movements: Extraocular movements intact. Cardiovascular: Rate and Rhythm: Normal rate and regular rhythm. Heart sounds: Normal heart sounds. No murmur heard. No friction rub. No gallop. Pulmonary: Effort: Pulmonary effort is normal. No respiratory distress. Breath sounds: Normal breath sounds. No wheezing. Musculoskeletal: General: Normal range of motion. Cervical back: Normal range of motion. Skin: General: Skin is warm and dry. Findings: No erythema or rash. Neurological: General: No focal deficit present. Mental Status: She is alert and oriented to person, place, and time. Mental status is at baseline. Psychiatric: Mood and Affect: Mood normal. Behavior: Behavior normal. Thought Content: Thought content normal. Assessment and Plan Exam reveals erythema and injection of the right tympanic membrane consistent with otitis media. Patient counseled regarding suspected diagnosis and given prescription for amoxicillin. Advised to follow-up with her primary care provider as needed for any new or worsening symptoms. ASSESSMENT/PLAN: 1. Acute otitis media, right - ICD9: 382.9, ICD10: H66.91 (primary diagnosis) - AMOXICILLIN 875 MG TABLET 2. Right ear pain - ICD9: 388.70, ICD10: H92.01 Medical Decision Making: Problems: Low: Acute, uncomplicated illness or injury Risk: Minimal: Minimal risk from testing/treatment Moderate: Drug management Medical Decision Making Level: 3 - Low I spent a total of 20 minutes on the date of the service which included preparing to see the patient, [id number] patient care, completing clinical documentation, performing a medically appropriate examination, counseling and educating the patient/family/caregiver, and ordering medications, tests, or procedures. documented in this encounter [facility] 08-08-2022 Miscellaneous Notes Pt stated refill is for Celexa not Alley. Pt last OV: 07/11/22. Patient's request for medication is as follows: Requested Prescriptions Pending Prescriptions Disp Refills citalopram (CELEXA) 40 mg tablet 90 tablet 0 Sig: Take 1 tablet by mouth once daily. Prescription(s) as above. Please process accordingly. Yesi Mathis MA documented in this encounter [facility] 07-19-2022 Miscellaneous Notes Refill at the pharmacy Patient has been identified by name and date of : Yes Requested Prescriptions Pending Prescriptions Disp Refills lamoTRIgine (LAMICTAL) 25 mg tablet [Pharmacy Med Name: LAMOTRIGINE 25 MG TABLET] 30 tablet 2 Sig: TAKE 1 TABLET BY MOUTH EVERYDAY AT BEDTIME RX INSTRUCTIONS: Was seen 07-11-22. Send to pharmacy if approved. Samara Enamorado Ma documented in this encounter [facility] 06-16-2022 Instructions Mari Mancera PA-C - 06/16/2022 8:17 AM EDT ASSESSMENT/PLAN: 1. Low oxygen saturation - 90-92% 2. SOB (shortness of breath) 3. Asthma exacerbation - Likely simple asthma exacerbation but cannot get CXR here in [facility] on a Friday outpt. - Symptoms not resolving with Symbicort inhaler and Albuterol Nebs +Albuterol HFA. Referred to ED for further management No charge Mari Mancera PA-C documented in this encounter [facility] 06-16-2022 History of Presen t illness Narrative Triage: 32 to female with asthma. Here for wheezing and SOB x 2 that is not relieved by Symbicort and albuterol nebs at home. Doing albuterol nebs but still SOB. Pulse here 90%. BP 110/52 Pulse 67 Temp 36.3 C (97.3 F) Resp 18 Wt 130.2 kg (287 lb) LMP 03/10/2022 (Approximate) SpO2 90% BMI 49.26 kg/m AAOx3, no acute distress, patient is pleasant, well groomed, dressed appropriately. General: WD, WN, NAD, alert. Chest: Extensive wheezes and decreased BS throughout bilaterally. ASSESSMENT/PLAN: 1. Low oxygen saturation - ICD9: 790.91, ICD10: R79.81 (primary diagnosis) 2. SOB (shortness of breath) - ICD9: 786.05, ICD10: R06.02 - Likely simple asthma exacerbation but cannot get CXR here in [facility] on a Friday outpt. - Symptoms not resolving with Symbicort inhaler and Albuterol Nebs +Albuterol HFA. Referred to ED for further management No charge Mari Mancera PA-C documented in this encounter [facility] 04-30-2022 Miscellaneous Notes Patient notified Ok have her dc the abilify and we will replace it with seroquel Patient has not taken any of the mentioned medication before. Please send in the recommended medications with specific instructions if they should be taken in am or pm if it matters. thanks Patient transferred to nurse triage line, please inform pt of msg below. Patient also states she had an anxiety attack last night, she was dizzy with attack. 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 She is on the max dose of celexa, we can switch to lexapro 20mg, also regarding the abilify we can switch to seroquel or lamictal, not sure if she has tried these meds in the past? Items addressed in this encounter: Telephone Encounter Divya Alex Claudia April 29, 2022 7:58 AM 7:58 AM Currently taking CELEXA & Abilify She says that they are not working well for her anymore. She is really calvillo and anxious more often. She is wondering if her meds needs to be changed or adjusted. Just seen in the office this pass 03/2022 or [facility] documented in this encounter [facility] 04-19-2022 History of Presen t illness Narrative VIRTUAL VISIT PROGRESS NOTE This is a virtual visit using [facility] [employer] video visit. It required patient-provider interaction for the medical decision making as documented below. Irvin Kline is a 32 year old female seen for abnormal thyroid function tests. HISTORY REVIEWED (electronic chart updated): PAST MEDICAL HISTORY Diagnosis Date Anemia Asthma No past surgical history on file. No family history on file. Social History Tobacco Use Smoking status: Never Smokeless tobacco: Never Substance Use Topics Alcohol use: No Drug use: No Current Outpatient Medications Medication Sig Nebulizer and Compressor For Neb Use as directed albuterol (PROVENTIL) 2.5 mg /3 mL (0.083 %) nebulizer solution 2.5mg 3 times daily as needed over 5-15 minutes for wheezing and shortness of breath. ferrous sulfate 325 mg (65 mg iron) tablet Take 1 tablet by mouth twice daily. ergocalciferol 50,000 unit capsule (VITAMIN D2, DRISDOL) Take 1 capsule by mouth one time a week. citalopram (CELEXA) 40 mg tablet TAKE 1 TABLET BY MOUTH EVERY DAY FOR 90 DAYS ARIPiprazole (ABILIFY) 15 mg tablet TAKE 1 TABLET BY MOUTH EVERY DAY FOR 30 DAYS montelukast (SINGULAIR) 10 mg tablet TAKE 1 TABLET BY MOUTH EVERY DAY FOR 90 DAYS meloxicam (MOBIC) 15 mg tablet TAKE 1 TABLET BY MOUTH EVERY DAY IN THE MORNING budesonide-formoterol (SYMBICORT) 160-4.5 mcg/actuation inhaler Inhale 2 Puffs as instructed twice daily. albuterol HFA (PROVENTIL HFA, VENTOLIN HFA) 90 mcg/actuation inhaler Inhale 2 Puffs as instructed every 4 hours as needed for wheezing/shortness of breath. FEXOFENADINE HCL (LAQUITA ALLERGY ORAL) Take by mouth once daily. ALBUTEROL INHALATION Inhale as instructed as needed. No current facility-administered medications for this visit. ALLERGIES Allergen Reactions Rocephin [Ceftriaxo* Anaphylaxis per pt mother was 3yo Previous laboratory results: Vitamin D 25 Hydroxy (ng/mL) Date Value 04/02/2022 17.6 TSH (mIU/L) Date Value 04/02/2022 2.190 Free T4 (ng/dL) Date Value 04/02/2022 1.2 Free T3 (pg/mL) Date Value 04/02/2022 4.3 TPO ANTIBODY (IU/mL) Date Value 04/10/2022 11.5 Thyroglobulin Ab (IU/mL) Date Value 04/10/2022 2.1 TSI (IU/L) Date Value 04/10/2022 <0.10 Review of patient's past medical history indicates: Patient has been tired for a long time. Her PCP run thyroid function test and it showed slightly positive TPO antibodies. Free T3 is slightly elevated. TSH and free T4 are good. She was than advised to see senior engineering manager and thyroid US was ordered. Thyroid ultrasound done in March 2022 is normal. ROS: Energy is not good. Does not really sleep well. Weight is generally stable. No difficulties swallowing or breathing. No pain or tenderness from thyroid bed. No heart palpitations. No temperature intolerance. No excessive sweating No constipation or diarrhea. Menstrual period is regular. No problems with skin, hair or nails. No muscle weaknes. No muscle cramping. No tremors. Memory is good. No problems focusing. SOC HX: No smoking or drinking. . 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 PE: Young CC female. Obese. No acute distress, alert and orineted and in appropriate mood. HEENT: [place]ain[place], sclera anicteric, conjunctiva non inflamed, oral mucosa moist, no lesions. No lid lag. No stare. No exophtalmos. NECK: No visible goiter. EXT: No edema or deformities. SKIN: no rash or lesions. No achantosis nigricans. NEURO: No focal signs. No tremors. Assessment and Plan: Patient has mild Justina's thyroiditis. Her thyroid function is still normal. I explained to her what this means and advised her to check TSH yearly. She should start thyroid supplementation if her TSH goes over 4. We will sty in touch using My-chart. Jamie Steele MD Answers submitted by the patient for this visit: Endocrine Review of Systems (Submitted on 04/16/2022) Fatigue: Yes Night Sweats: No Recent Unintentional Weight Change: Yes Skin Color Changes: No Post-Nasal Drip: No Thyroid Pain (lower neck): No Trouble Swallowing: No Vision Disturbance: No Chest Pain: No Leg Swelling: No Blood Clots?: No Leg Pain while walking?: No Difficulty Breathing?: No Heartburn: No Nausea: No Vomiting?: No Diarrhea: No Constipation: No Abdominal Pain: No Bone Pain?: No Muscle Aches: No Muscle Weakness: No Joint Pain or Stiffness: No Headaches: No Dizziness: No Numbness?: No Urgency to Urinate?: No Increased Urination?: No Slow or Small Urine Stream?: No Are your menstrual cycles regular?: Yes Are your menstrual cycles irregular?: No Have your menstrual cycles stopped?: No Flushing?: No Hot Flashes?: No Increased Thirst: No Change in Body Hair?: No Cold Intolerance: No Heat Intolerance?: No documented in this encounter [facility] 04-12-2022 History of Presen t illness Narrative Radiology Service Progress Note PATIENT NAME: Irvin Kline DATE OF SERVICE: April 12, 2022 TIME: 10:48 AM PATIENT IDENTITY VERIFICATION COMPLETED USING TWO (2) IDENTIFIERS: Name and Date of confirmed by patient verbally. FALL SCREENING: Has the patient had 2 falls in the last year or 1 fall with injury or currently using an Ambulatory Assistive Device (Walker, Cane, Wheelchair, Crutches, etc.)? No PATIENT GENDER DATA: Female. status: : No status: NO. PATIENT RELEVANT IMPLANT DATA REVIEWED: Not Applicable RADIOLOGY DEPARTMENT: Ultrasound PERIPHERAL IV DATA: Not applicable SIGNED BY: Gaby Cedillo RDMS RVT April 12, 2022 10:48 AM documented in this encounter [facility] 04-12-2022 Miscellaneous Notes Us of thyroid normal, to see the endocrine dr for further evaluation documented in this encounter [facility] 04-05-2022 Miscellaneous Notes Labs ordered Can you please order thyroid antibody labs documented in this encounter [facility] 04-02-2022 History of Presen t illness Narrative Pt here to est, to have PE, discuss preven measures and to get bw The history is provided by the patient. Fatigue This is a recurrent problem. The current episode started more than 1 month ago. The problem occurs every several days. The problem has been gradually worsening. Associated symptoms include fatigue. Anxiety Pertinent negatives include no agitation, confusion, delusions, hallucinations or self-injury. This is a recurrent problem. The current episode started more than 1 month ago. The problem has been gradually improving since onset. Depression Pertinent negatives include no agitation, confusion, delusions, hallucinations or self-injury. This is a recurrent problem. The current episode started more than 1 month ago. The problem has been gradually improving since onset. Asthma This is a recurrent problem. The current episode started more than 1 month ago. The problem occurs every several days. The problem has been waxing and waning. Associated symptoms include fatigue. PAST MEDICAL HISTORY Diagnosis Date Anemia Asthma History reviewed. No pertinent surgical history. Social History Tobacco Use Smoking status: Never Smokeless tobacco: Never Substance Use Topics Alcohol use: No Drug use: No ALLERGIES: ALLERGIES Allergen Reactions Rocephin [Ceftriaxo* Anaphylaxis per pt mother was 3yo MEDICATIONS citalopram (CELEXA) 40 mg tablet TAKE 1 TABLET BY MOUTH EVERY DAY FOR 90 DAYS ARIPiprazole (ABILIFY) 15 mg tablet TAKE 1 TABLET BY MOUTH EVERY DAY FOR 30 DAYS montelukast (SINGULAIR) 10 mg tablet TAKE 1 TABLET BY MOUTH EVERY DAY FOR 90 DAYS meloxicam (MOBIC) 15 mg tablet TAKE 1 TABLET BY MOUTH EVERY DAY IN THE MORNING FEXOFENADINE HCL (LAQUITA ALLERGY ORAL) Take by mouth once daily. ALBUTEROL INHALATION Inhale as instructed as needed. BUDESONIDE/FORMOTEROL FUMARATE (SYMBICORT INHALATION) Inhale as instructed as needed. oxyCODONE-acetaminophen (PERCOCET) 5-325 mg tablet Take 1-2 tablets by mouth every 4 hours as needed. (Patient not taking: Reported on 04/02/2022) ibuprofen (MOTRIN) 600 mg tablet Take 1 tablet by mouth every 6 hours as needed. (Patient not taking: Reported on 04/02/2022) valACYclovir (VALTREX) 500 mg tablet Take 500 mg by mouth once daily. (Patient not taking: Reported on 04/02/2022) sertraline (ZOLOFT) 100 mg tablet Take 100 mg by mouth once daily. (Patient not taking: Reported on 04/02/2022) VIT CALC,IRON,FOLIC ( #2 ORAL) Take 1 tablet by mouth once daily. (Patient not taking: Reported on 04/02/2022) ferrous sulfate 325 mg (65 mg iron) tablet Take 325 mg by mouth daily with breakfast. (Patient not taking: Reported on 04/02/2022) No family history on file. REVIEW OF SYSTEMS Review of Systems Constitutional: Positive for fatigue and malaise/fatigue. Respiratory: Positive for wheezing. Cardiovascular: Negative. Gastrointestinal: Negative. Psychiatric/Behavioral: Positive for depression, dysphoric mood and sleep disturbance. Negative for agitation, confusion, hallucinations and self-injury. The patient is nervous/anxious. All other systems reviewed and are negative. PHYSICAL EXAM: BP 111/62 Pulse 67 Temp 36.6 C (97.8 F) (Tympanic) Ht 162.6 cm (5' 4) Wt 127.2 kg (280 lb 8 oz) LMP 03/10/2022 (Approximate) SpO2 99% BMI 48.15 kg/m Physical Exam Vitals and nursing note reviewed. Constitutional: Appearance: She is well-developed. HENT: Head: Normocephalic and atraumatic. Right Ear: External ear normal. Left Ear: External ear normal. Nose: Nose normal. Eyes: Conjunctiva/sclera: Conjunctivae normal. Pupils: Pupils are equal, round, and reactive to light. Cardiovascular: Rate and Rhythm: Normal rate and regular rhythm. Heart sounds: Normal heart sounds. Pulmonary: Effort: Pulmonary effort is normal. Breath sounds: Normal breath sounds. Abdominal: General: Bowel sounds are normal. Palpations: Abdomen is soft. Musculoskeletal: General: Normal range of motion. Cervical back: Normal range of motion and neck supple. Skin: General: Skin is warm and dry. Neurological: Mental Status: She is alert and oriented to person, place, and time. Psychiatric: Mood and Affect: Mood is anxious and depressed. ASSESSMENT/PLAN: 1. Encounter for annual general medical examination without abnormal findings in adult - ICD9: V70.0, ICD10: Z00.00 (primary diagnosis) - Counseled on healthy diet and regular exercise - Calcium intake with supplements or by diet of 1000 mg/day for under 50, 2509-3780 mg/day for 50+ - CBC + DIFF - COMP METABOLIC PANEL - LIPID PANEL BASIC - HGB A1C 2. Anxiety with depression - ICD9: 300.4, ICD10: F41.8 Did rec taking meds at night time, if still tired, to take 1/2 tab of abilify 3. Mild intermittent asthma, uncomplicated - ICD9: 493.90, ICD10: J45.20 Mild intermittent Asthma stable - Avoidance of triggers recommended 4. Vitamin D deficiency - ICD9: 268.9, ICD10: E55.9 - VITAMIN D 25 HYDROXY 5. Fatigue, unspecified type - ICD9: 780.79, ICD10: R53.83 If persists, did discuss doing a sleep study, will do bw first - TSH BLD - T4 FREE/FREE THYROX - T3 FREE BLD - IRON + TIBC Donald Snowden DO documented in this encounter [facility] 03-11-2022 Emergency department Note Physician spoke with patient, agrees to discharge patient to home. [facility], physician's ambulance and [facility] CDU notified. Nancy Dunlap RN 03/11/222025 [facility] 03-11-2022 Emergency department Note Physician spoke with patient, agrees to discharge patient to home. [facility], physician's ambulance and [facility] CDU notified. Nancy Dunlap RN 03/11/222025 Patient rang call light. Patient having anxiety attack about having to spend the night away from her children. Explained to patient that it was her choice to be admitted to CDU and wait for transport. Patient no longer wishes to be admitted and would like to be discharged home. Physician informed. Nancy Dunlap RN 03/11/222003 Phoned [facility] CDU. Hand off report given to POWER Lafleur. Nancy Dunlap RN 03/11/22 1734 EMERGENCY DEPARTMENT ENCOUNTER Pt Name: Irvin Kline Birthdate 1990 Date of evaluation: 03/11/2022 ED Provider: Anthony Bowman MD CHIEF COMPLAINT Chief Complaint Patient presents with Asthma History from patient HISTORY OF PRESENT ILLNESS (Location/Symptom, Timing/Onset, Context/Setting, Quality, Duration, Modifying Factors, Severity) Note limiting factors. I wore appropriate PPE for the entirety of this encounter. HPI Irvin Kline is a 31 y.o. female who presents to the emergency department with chief complaint of asthma exacerbation. Patient states she was well until 4 days ago when she began getting short of breath. Her shortness of breath and wheezing increased. No fever change in her sputum hemoptysis or chest pain. She states that this is consistent with her previous asthma exacerbation. The last was approximately 2 months ago and required steroids. Her last required hospitalization was at age 18. When she was a young child she was admitted to the ICU but never intubated. She is not sure what her current exacerbating event was. She is between PCPs and cannot get an appointment so came to the emergency department. This is a mild exacerbation compared to previous. She has never had a blood clot there is no family history no recent travel or immobilization. Nursing Notes were reviewed. Limitations to history: None Outside historians: None REVIEW OF SYSTEMS Review of Systems Constitutional: Negative for fever. Eyes: Negative for visual disturbance. Respiratory: Positive for cough, shortness of breath and wheezing. Negative for choking and stridor. Cardiovascular: Negative for chest pain. Gastrointestinal: Negative for abdominal pain. Genitourinary: Negative for difficulty urinating and flank pain. Musculoskeletal: Negative for back pain, neck pain and neck stiffness. Skin: Negative for rash. Neurological: Negative for headaches. PAST MEDICAL HISTORY Past Medical History: Diagnosis Date Acute anal fissure Anxiety Asthma Depression Dysmenorrhea Eczema Fatigue Insomnia Otalgia of left ear Palpitations SURGICAL HISTORY Past Surgical History: Procedure Laterality Date ANKLE SURGERY Right 08/10/2021 Lateral collateral ligament repair SECTION (HISTORICAL) 01/27/2020 SECTION (HISTORICAL) 08/07/2016 CHOLECYSTECTOMY COLONOSCOPY GALLBLADDER SURGERY N/A Oct 2014 Removal MOUTH SURGERY OTHER SURGICAL HISTORY Right Ultra Sound CURRENT MEDICATIONS Previous Medications ALBUTEROL 108 (90 BASE) MCG/ACT INHALER TAKE 2 PUFFS EVERY 6 HOURS NEEDED ARIPIPRAZOLE (ABILIFY) 10 MG TABLET Take 10 mg by mouth daily. CETIRIZINE (ZYRTEC) 10 MG TABLET Take 10 mg by mouth in the morning. MELOXICAM (MOBIC) 15 MG TABLET Take 15 mg by mouth every morning. MONTELUKAST (SINGULAIR) 10 MG TABLET Take by mouth. SYMBICORT 160-4.5 MCG/ACT INHALER 2 puffs 2 times daily. 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 Appearance: Normal appearance. She is not ill-appearing. HENT: Head: Normocephalic and atraumatic. Nose: Nose normal. No congestion. Mouth/Throat: Mouth: Mucous membranes are moist. Pharynx: Oropharynx is clear. No oropharyngeal exudate. Eyes: Extraocular Movements: Extraocular movements intact. Conjunctiva/sclera: Conjunctivae normal. Pupils: Pupils are equal, round, and reactive to light. Cardiovascular: Rate and Rhythm: Normal rate and regular rhythm. Abdominal: Palpations: Abdomen is soft. Tenderness: There is no abdominal tenderness. There is no rebound. Musculoskeletal: General: No swelling or tenderness. Normal range of motion. Cervical back: Normal range of motion and neck supple. No rigidity or tenderness. Lymphadenopathy: Cervical: No cervical adenopathy. Skin: General: Skin is warm and dry. Capillary Refill: Capillary refill takes less than 2 seconds. Neurological: General: No focal deficit present. Mental Status: She is alert. Gait: Gait normal. Not febrile not toxic No respiratory distress Lungs -scattered expiratory wheezes EMERGENCY DEPARTMENT COURSE and DIFFERENTIAL DIAGNOSIS/MDM: Vitals: Vitals: 03/11/22 1508 BP: 123/67 BP Location: Right arm Patient Position: Sitting Pulse: 67 Resp: 18 Temp: 37 C (98.6 F) TempSrc: Oral SpO2: 97% Weight: 122 kg (268 lb) 31-year-old female presents complaining of asthma exacerbation. Remote history of hospitalization and no previous history of intubation. No clinical evidence of respiratory distress or airway compromise or pneumonia. She has no risk factors for pulmonary embolism and she is PERC negative. No clinical evidence of pneumothorax. Most likely an upper respiratory infection which triggered her exacerbation. She was given albuterol 2.5 mg nebulized for 3 doses and prednisone 60 mg oral. She had improvement of her symptoms but still wheezing and not at baseline. Medications albuterol (2.5 MG/3ML) 0.083% nebulizer solution 2.5 mg (has no administration in time range) predniSONE (Deltasone) tablet 60 mg (60 mg Oral Given 03/11/22 1539) albuterol (2.5 MG/3ML) 0.083% nebulizer solution 2.5 mg (2.5 mg Nebulization Given 03/11/22 1539) albuterol (2.5 MG/3ML) 0.083% nebulizer solution 2.5 mg (2.5 mg Nebulization Given 03/11/22 1530) REVAL: 4:03 PM Treatments complete. Patient feels better but still wheezing and not at baseline. Discussed option of continued care versus outpatient follow - up. She elects continued care. CDU paged. 4:22 PM Accepted to CDU. Patient requested ambulance transfer. Ordered. 7:08 PM Transport pending at care transition. FINAL IMPRESSION 1. Moderate persistent asthma with exacerbation DISPOSITION Observation 03/11/2022 04:24:46 PM PATIENT REFERRED TO: No follow-up provider specified. DISCHARGE MEDICATIONS: New Prescriptions No medications on file (Comment: Please note this report has been produced using speech recognition software and may contain errors related to that system including errors in grammar, punctuation, and spelling, as well as words and phrases that may be inappropriate. If there are any questions or concerns please feel free to contact the dictating provider for clarification.) Anthony Bowman MD (electronically signed) Emergency Medicine Provider Anthony Bowman MD 03/11/221908 I received signout from Dr. Bowman at 7:30 PM. Patient is awaiting transport to the CDU at [place]. At 8 PM, the nurse informs me that the patient wishes to be discharged. Her lungs are completely clear on my auscultation and she exhibits a normal work of breathing and no conversational dyspnea. She does not wish to spend a night away from her children at home and is feeling back to normal. She understands we are concerned about her breathing and is still insistent on being discharged. She understands that she should return to the emergency department immediately if her breathing worsens or if she simply wishes to be reevaluated. Otherwise plan is to follow-up with PCP in 2 days. I will prescribe her a course of prednisone. Fabiana Choudhury MD 03/11/222024 Patient arrived ambulatory to room 3 without difficulty. Patient complains of asthma exacerbation for the past 2 days which has progressively gotten worse. Patient has been using her rescue inhaler with no relief. Patient complains of SOB and wheezing but denies any chest pain. Patient A&Ox4, respirations even and unlabored. Patient in no acute signs of distress. documented in this encounter [facility] 03-11-2022 Hospital Discharg e instructions Fabiana Choudhury MD - 03/11/2022 8:22 PM EST Our plan was to admit you to the hospital because we are concerned about your breathing. Because you are requesting to leave, we are letting you go but please return to the emergency department if you are feeling worse in any way. The following attachments cannot be sent through Care Everywhere.Asthma in Adults (Cuban)documented in this encounter [facility] 03-11-2022 Emergency department Note Patient rang call light. Patient having anxiety attack about having to spend the night away from her children. Explained to patient that it was her choice to be admitted to CDU and wait for transport. Patient no longer wishes to be admitted and would like to be discharged home. Physician informed. Nancy Dunlap RN 03/11/222003 [facility] [facility] 03-11-2022 Emergency department Note Phoned [facility] CDU. Hand off report given to POWER Lafleur. Nancy Dunlap RN 03/11/22 [id number] [facility] 03-11-2022 Emergency department Triage note Patient arrived ambulatory to room 3 without difficulty. Patient complains of asthma exacerbation for the past 2 days which has progressively gotten worse. Patient has been using her rescue inhaler with no relief. Patient complains of SOB and wheezing but denies any chest pain. Patient A&Ox4, respirations even and unlabored. Patient in no acute signs of distress. [facility] 03-11-2022 Physician Emergency department Note EMERGENCY DEPARTMENT ENCOUNTER Pt Name: Irvin Kline Birthdate 1990 Date of evaluation: 03/11/2022 ED Provider: Anthony Bowman MD CHIEF COMPLAINT Chief Complaint Patient presents with Asthma History from patient HISTORY OF PRESENT ILLNESS (Location/Symptom, Timing/Onset, Context/Setting, Quality, Duration, Modifying Factors, Severity) Note limiting factors. I wore appropriate PPE for the entirety of this encounter. HPI Irvin Kline is a 31 y.o. female who presents to the emergency department with chief complaint of asthma exacerbation. Patient states she was well until 4 days ago when she began getting short of breath. Her shortness of breath and wheezing increased. No fever change in her sputum hemoptysis or chest pain. She states that this is consistent with her previous asthma exacerbation. The last was approximately 2 months ago and required steroids. Her last required hospitalization was at age 18. When she was a young child she was admitted to the ICU but never intubated. She is not sure what her current exacerbating event was. She is between PCPs and cannot get an appointment so came to the emergency department. This is a mild exacerbation compared to previous. She has never had a blood clot there is no family history no recent travel or immobilization. Nursing Notes were reviewed. Limitations to history: None Outside historians: None REVIEW OF SYSTEMS Review of Systems Constitutional: Negative for fever. Eyes: Negative for visual disturbance. Respiratory: Positive for cough, shortness of breath and wheezing. Negative for choking and stridor. Cardiovascular: Negative for chest pain. Gastrointestinal: Negative for abdominal pain. Genitourinary: Negative for difficulty urinating and flank pain. Musculoskeletal: Negative for back pain, neck pain and neck stiffness. Skin: Negative for rash. Neurological: Negative for headaches. PAST MEDICAL HISTORY Past Medical History: Diagnosis Date Acute anal fissure Anxiety Asthma Depression Dysmenorrhea Eczema Fatigue Insomnia Otalgia of left ear Palpitations SURGICAL HISTORY Past Surgical History: Procedure Laterality Date ANKLE SURGERY Right 08/10/2021 Lateral collateral ligament repair SECTION (HISTORICAL) 01/27/2020 SECTION (HISTORICAL) 08/07/2016 CHOLECYSTECTOMY COLONOSCOPY GALLBLADDER SURGERY N/A Oct 2014 Removal MOUTH SURGERY OTHER SURGICAL HISTORY Right Ultra Sound CURRENT MEDICATIONS Previous Medications ALBUTEROL 108 (90 BASE) MCG/ACT INHALER TAKE 2 PUFFS EVERY 6 HOURS NEEDED ARIPIPRAZOLE (ABILIFY) 10 MG TABLET Take 10 mg by mouth daily. CETIRIZINE (ZYRTEC) 10 MG TABLET Take 10 mg by mouth in the morning. MELOXICAM (MOBIC) 15 MG TABLET Take 15 mg by mouth every morning. MONTELUKAST (SINGULAIR) 10 MG TABLET Take by mouth. SYMBICORT 160-4.5 MCG/ACT INHALER 2 puffs 2 times daily. 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 Appearance: Normal appearance. She is not ill-appearing. HENT: Head: Normocephalic and atraumatic. Nose: Nose normal. No congestion. Mouth/Throat: Mouth: Mucous membranes are moist. Pharynx: Oropharynx is clear. No oropharyngeal exudate. Eyes: Extraocular Movements: Extraocular movements intact. Conjunctiva/sclera: Conjunctivae normal. Pupils: Pupils are equal, round, and reactive to light. Cardiovascular: Rate and Rhythm: Normal rate and regular rhythm. Abdominal: Palpations: Abdomen is soft. Tenderness: There is no abdominal tenderness. There is no rebound. Musculoskeletal: General: No swelling or tenderness. Normal range of motion. Cervical back: Normal range of motion and neck supple. No rigidity or tenderness. Lymphadenopathy: Cervical: No cervical adenopathy. Skin: General: Skin is warm and dry. Capillary Refill: Capillary refill takes less than 2 seconds. Neurological: General: No focal deficit present. Mental Status: She is alert. Gait: Gait normal. Not febrile not toxic No respiratory distress Lungs -scattered expiratory wheezes EMERGENCY DEPARTMENT COURSE and DIFFERENTIAL DIAGNOSIS/MDM: Vitals: Vitals: 03/11/22 1508 BP: 123/67 BP Location: Right arm Patient Position: Sitting Pulse: 67 Resp: 18 Temp: 37 C (98.6 F) TempSrc: Oral SpO2: 97% Weight: 122 kg (268 lb) 31-year-old female presents complaining of asthma exacerbation. Remote history of hospitalization and no previous history of intubation. No clinical evidence of respiratory distress or airway compromise or pneumonia. She has no risk factors for pulmonary embolism and she is PERC negative. No clinical evidence of pneumothorax. Most likely an upper respiratory infection which triggered her exacerbation. She was given albuterol 2.5 mg nebulized for 3 doses and prednisone 60 mg oral. She had improvement of her symptoms but still wheezing and not at baseline. Medications albuterol (2.5 MG/3ML) 0.083% nebulizer solution 2.5 mg (has no administration in time range) predniSONE (Deltasone) tablet 60 mg (60 mg Oral Given 03/11/22 153) albuterol (2.5 MG/3ML) 0.083% nebulizer solution 2.5 mg (2.5 mg Nebulization Given 03/11/22 153) albuterol (2.5 MG/3ML) 0.083% nebulizer solution 2.5 mg (2.5 mg Nebulization Given 03/11/22 1530) REVAL: 4:03 PM Treatments complete. Patient feels better but still wheezing and not at baseline. Discussed option of continued care versus outpatient follow - up. She elects continued care. CDU paged. 4:22 PM Accepted to CDU. Patient requested ambulance transfer. Ordered. 7:08 PM Transport pending at care transition. FINAL IMPRESSION 1. Moderate persistent asthma with exacerbation DISPOSITION Observation 03/11/2022 04:24:46 PM PATIENT REFERRED TO: No follow-up provider specified. DISCHARGE MEDICATIONS: New Prescriptions No medications on file (Comment: Please note this report has been produced using speech recognition software and may contain errors related to that system including errors in grammar, punctuation, and spelling, as well as words and phrases that may be inappropriate. If there are any questions or concerns please feel free to contact the dictating provider for clarification.) Anthony Bowman MD (electronically signed) Emergency Medicine Provider Anthony Bowman MD 03/11/221908 [facility] 03-11-2022 Physician Emergency department Note I received signout from Dr. Bowman at 7:30 PM. Patient is awaiting transport to the CDU at [place]. At 8 PM, the nurse informs me that the patient wishes to be discharged. Her lungs are completely clear on my auscultation and she exhibits a normal work of breathing and no conversational dyspnea. She does not wish to spend a night away from her children at home and is feeling back to normal. She understands we are concerned about her breathing and is still insistent on being discharged. She understands that she should return to the emergency department immediately if her breathing worsens or if she simply wishes to be reevaluated. Otherwise plan is to follow-up with PCP in 2 days. I will prescribe her a course of prednisone. Fabiana Choudhury MD 03/11/222024 [facility] 08-10-2021 History of Presen t illness Narrative Discharge instructions reviewed with pt and . Verbalize understanding. Tolerating oral fluids well. Denies nausea. at bedside. Awake. Denies pain. documented in this encounter [facility] Work Phone: 07-29-2020 [facility] DischAnthony Cruz MD - 07/29/2020 Please return to the emergency department for new or worsening symptoms, or any new concerns. Please follow-up with your primary care physician in the next 5 to 7 days for reevaluation. Please rest, ice, compress, and elevateabove the level of your nose, your affected right ankle, you may bear weight with your right leg as tolerated, crutches provided for comfort, ibuprofen and Tylenol are okay to treat discomfort as needed. The following attachments cannot be sent through Care Everywhere.Ankle Sprain (Cuban)documented in this encounter [facility] Work Phone: 08-08-2016 History of Past i llness Narrative Problem Noted Date Resolved Date Oligohydramnios in third trimester 08/08/2016 08/09/2016 Poor growth affecting management of mother in third trimester 08/06/2016 08/09/2016 IUGR (intrauterine growth re striction) affecting care of mother 08/06/2016 08/09/2016 False labor, antepartum 07/18/2016 08/07/19 17 Small for gestational age fe tus affecting management of mother, third trimester, single gestation 06/17/2016 08/06/2016 Decreased movements in second trimester 08/06/2016 documented as of this encounter (statuses as of 04/02/2022) [facility] History of Past illness Narrative* Problem Noted Date Resolved Date Oligohydramnios in third trimester 08/08/2016 08/09/2016 Poor growth affecting management of mother in third trimester 08/06/2016 08/09/2016 IUGR (intrauterine growth re striction) affecting care of mother 08/06/2016 08/09/2016 False labor, antepartum 07/18/2016 08/07/19 17 Small for gestational age fe tus affecting management of mother, third trimester, single gestation 06/17/2016 08/06/2016 Decreased movements in second trimester 08/06/2016 documented as of this encounter (statuses as of 04/05/2022) [facility] History of Past illness Narrative* Problem Noted Date Resolved Date Oligohydramnios in third trimester 08/08/2016 08/09/2016 Poor growth affecting management of mother in third trimester 08/06/2016 08/09/2016 IUGR (intrauterine growth re striction) affecting care of mother 08/06/2016 08/09/2016 False labor, antepartum 07/18/2016 08/07/19 17 Small for gestational age fe tus affecting management of mother, third trimester, single gestation 06/17/2016 08/06/2016 Decreased movements in second trimester 08/06/2016 documented as of this encounter (statuses as of 04/17/2022) [facility] History of Past illness Narrative* Problem Noted Date Resolved Date Oligohydramnios in third trimester 08/08/2016 08/09/2016 Poor growth affecting management of mother in third trimester 08/06/2016 08/09/2016 IUGR (intrauterine growth re striction) affecting care of mother 08/06/2016 08/09/2016 False labor, antepartum 07/18/2016 08/07/19 17 Small for gestational age fe tus affecting management of mother, third trimester, single gestation 06/17/2016 08/06/2016 Decreased movements in second trimester 08/06/2016 documented as of this encounter (statuses as of 04/19/2022) [facility] History of Past illness Narrative* Problem Noted Date Resolved Date Oligohydramnios in third trimester 08/08/2016 08/09/2016 Poor growth affecting management of mother in third trimester 08/06/2016 08/09/2016 IUGR (intrauterine growth re striction) affecting care of mother 08/06/2016 08/09/2016 False labor, antepartum 07/18/2016 08/07/19 17 Small for gestational age fe tus affecting management of mother, third trimester, single gestation 06/17/2016 08/06/2016 Decreased movements in second trimester 08/06/2016 documented as of this encounter (statuses as of 04/27/2022) [facility] of Past illness Narrative* Problem Noted Date Resolved Date Oligohydramnios in third trimester 08/08/2016 08/09/2016 Poor growth affecting management of mother in third trimester 08/06/2016 08/09/2016 IUGR (intrauterine growth re striction) affecting care of mother 08/06/2016 08/09/2016 False labor, antepartum 07/18/2016 08/07/19 17 Small for gestational age fe tus affecting management of mother, third trimester, single gestation 06/17/2016 08/06/2016 Decreased movements in second trimester 08/06/2016 documented as of this encounter (statuses as of 04/30/2022) [facility] History of Past illness Narrative* Problem Noted Date Resolved Date Oligohydramnios in third trimester 08/08/2016 08/09/2016 Poor growth affecting management of mother in third trimester 08/06/2016 08/09/2016 IUGR (intrauterine growth re striction) affecting care of mother 08/06/2016 08/09/2016 False labor, antepartum 07/18/2016 08/07/19 17 Small for gestational age fe tus affecting management of mother, third trimester, single gestation 06/17/2016 08/06/2016 Decreased movements in second trimester 08/06/2016 documented as of this encounter (statuses as of 06/16/2022) [facility] of Past illness Narrative* Problem Noted Date Resolved Date Oligohydramnios in third trimester 08/08/2016 08/09/2016 Poor growth affecting management of mother in third trimester 08/06/2016 08/09/2016 IUGR (intrauterine growth re striction) affecting care of mother 08/06/2016 08/09/2016 False labor, antepartum 07/18/2016 08/07/19 17 Small for gestational age fe tus affecting management of mother, third trimester, single gestation 06/17/2016 08/06/2016 Decreased movements in second trimester 08/06/2016 documented as of this encounter (statuses as of 06/25/2022) [facility] of Past illness Narrative* Problem Noted Date Resolved Date Oligohydramnios in third trimester 08/08/2016 08/09/2016 Poor growth affecting management of mother in third trimester 08/06/2016 08/09/2016 IUGR (intrauterine growth re striction) affecting care of mother 08/06/2016 08/09/2016 False labor, antepartum 07/18/2016 08/07/19 17 Small for gestational age fe tus affecting management of mother, third trimester, single gestation 06/17/2016 08/06/2016 Decreased movements in second trimester 08/06/2016 documented as of this encounter (statuses as of 07/24/2022) [facility] of Past illness Narrative* Problem Noted Date Resolved Date Oligohydramnios in third trimester 08/08/2016 08/09/2016 Poor growth affecting management of mother in third trimester 08/06/2016 08/09/2016 IUGR (intrauterine growth re striction) affecting care of mother 08/06/2016 08/09/2016 False labor, antepartum 07/18/2016 08/07/19 17 Small for gestational age fe tus affecting management of mother, third trimester, single gestation 06/17/2016 08/06/2016 Decreased movements in second trimester 08/06/2016 documented as of this encounter (statuses as of 08/09/2022) [facility] History of Past illness Narrative* Problem Noted Date Resolved Date Oligohydramnios in third trimester 08/08/2016 08/09/2016 Poor growth affecting management of mother in third trimester 08/06/2016 08/09/2016 IUGR (intrauterine growth re striction) affecting care of mother 08/06/2016 08/09/2016 False labor, antepartum 07/18/2016 08/07/19 17 Small for gestational age fe tus affecting management of mother, third trimester, single gestation 06/17/2016 08/06/2016 Decreased movements in second trimester 08/06/2016 documented as of this encounter (statuses as of 08/13/2022) [facility] of Past illness Narrative* Problem Noted Date Resolved Date Oligohydramnios in third trimester 08/08/2016 08/09/2016 Poor growth affecting management of mother in third trimester 08/06/2016 08/09/2016 IUGR (intrauterine growth re striction) affecting care of mother 08/06/2016 08/09/2016 False labor, antepartum 07/18/2016 08/07/19 17 Small for gestational age fe tus affecting management of mother, third trimester, single gestation 06/17/2016 08/06/2016 Decreased movements in second trimester 08/06/2016 documented as of this encounter (statuses as of 08/22/2022) [facility] History of Past illness Narrative* Problem Noted Date Diagnosed Date Resolved Date Oligohydramnios in third trimester 08/08/2016 08/09/2016 Poor growth affecting management of mother in third trimester 08/06/2016 08/09/2016 IUGR (intrauterine growth re striction) affecting care of mother 08/06/2016 08/09/2016 False labor, antepartum 07/18/201607/19 Small for gestational age fe tus affecting management of mother, third trimester, single gestation 06/17/2016 08/06/2016 Decreased movements in second trimester 05/13/19 17 08/06/2016 documented as of this encounter (statuses as of 09/25/2022) [facility] History of Past illness Narrative* Problem Noted Date Diagnosed Date Resolved Date Oligohydramnios in third trimester 08/08/2016 08/09/2016 Poor growth affecting management of mother in third trimester 08/06/2016 08/09/2016 IUGR (intrauterine growth re striction) affecting care of mother 08/06/2016 08/09/2016 False labor, antepartum 07/18/201607/19 Small for gestational age fe tus affecting management of mother, third trimester, single gestation 06/17/2016 08/06/2016 Decreased movements in second trimester 05/13/19 17 08/06/2016 documented as of this encounter (statuses as of 09/26/2022) [facility] of Past illness Narrative* Problem Noted Date Diagnosed Date Resolved Date Oligohydramnios in third trimester 08/08/2016 08/09/2016 Poor growth affecting management of mother in third trimester 08/06/2016 08/09/2016 IUGR (intrauterine growth re striction) affecting care of mother 08/06/2016 08/09/2016 False labor, antepartum 07/18/201607/19 Small for gestational age fe tus affecting management of mother, third trimester, single gestation 06/17/2016 08/06/2016 Decreased movements in second trimester 05/13/19 17 08/06/2016 documented as of this encounter (statuses as of 09/27/2022) [facility] of Past illness Narrative* Problem Noted Date Diagnosed Date Resolved Date Oligohydramnios in third trimester 08/08/2016 08/09/2016 Poor growth affecting management of mother in third trimester 08/06/2016 08/09/2016 IUGR (intrauterine growth re striction) affecting care of mother 08/06/2016 08/09/2016 False labor, antepartum 07/18/201607/19 Small for gestational age fe tus affecting management of mother, third trimester, single gestation 06/17/2016 08/06/2016 Decreased movements in second trimester 05/13/19 17 08/06/2016 documented as of this encounter (statuses as of 09/30/2022) [facility] of Past illness Narrative* Problem Noted Date Diagnosed Date Resolved Date Oligohydramnios in third trimester 08/08/2016 08/09/2016 Poor growth affecting management of mother in third trimester 08/06/2016 08/09/2016 IUGR (intrauterine growth re striction) affecting care of mother 08/06/2016 08/09/2016 False labor, antepartum 07/18/201607/19 Small for gestational age fe tus affecting management of mother, third trimester, single gestation 06/17/2016 08/06/2016 Decreased movements in second trimester 05/13/19 17 08/06/2016 documented as of this encounter (statuses as of 10/07/2022) [facility] of Past illness Narrative* Problem Noted Date Diagnosed Date Resolved Date Oligohydramnios in third trimester 08/08/2016 08/09/2016 Poor growth affecting management of mother in third trimester 08/06/2016 08/09/2016 IUGR (intrauterine growth re striction) affecting care of mother 08/06/2016 08/09/2016 False labor, antepartum 07/18/201607/19 Small for gestational age fe tus affecting management of mother, third trimester, single gestation 06/17/2016 08/06/2016 Decreased movements in second trimester 05/13/19 17 08/06/2016 documented as of this encounter (statuses as of 10/08/2022) [facility] of Past illness Narrative* Problem Noted Date Diagnosed Date Resolved Date Oligohydramnios in third trimester 08/08/2016 08/09/2016 Poor growth affecting management of mother in third trimester 08/06/2016 08/09/2016 IUGR (intrauterine growth re striction) affecting care of mother 08/06/2016 08/09/2016 False labor, antepartum 07/18/201607/19 Small for gestational age fe tus affecting management of mother, third trimester, single gestation 06/17/2016 08/06/2016 Decreased movements in second trimester 05/13/19 17 08/06/2016 documented as of this encounter (statuses as of 10/18/2022) [facility] of Past illness Narrative* Problem Noted Date Diagnosed Date Resolved Date Oligohydramnios in third trimester 08/08/2016 08/09/2016 Poor growth affecting management of mother in third trimester 08/06/2016 08/09/2016 IUGR (intrauterine growth re striction) affecting care of mother 08/06/2016 08/09/2016 False labor, antepartum 07/18/201607/19 Small for gestational age fe tus affecting management of mother, third trimester, single gestation 06/17/2016 08/06/2016 Decreased movements in second trimester 05/13/19 17 08/06/2016 documented as of this encounter (statuses as of 10/22/2022) [facility] of Past illness Narrative* Problem Noted Date Diagnosed Date Resolved Date Oligohydramnios in third trimester 08/08/2016 08/09/2016 Poor growth affecting management of mother in third trimester 08/06/2016 08/09/2016 IUGR (intrauterine growth re striction) affecting care of mother 08/06/2016 08/09/2016 False labor, antepartum 07/18/201607/19 Small for gestational age fe tus affecting management of mother, third trimester, single gestation 06/17/2016 08/06/2016 Decreased movements in second trimester 05/13/19 17 08/06/2016 documented as of this encounter (statuses as of 10/24/2022) [facility] of Past illness Narrative* Problem Noted Date Diagnosed Date Resolved Date Oligohydramnios in third trimester 08/08/2016 08/09/2016 Poor growth affecting management of mother in third trimester 08/06/2016 08/09/2016 IUGR (intrauterine growth re striction) affecting care of mother 08/06/2016 08/09/2016 False labor, antepartum 07/18/201607/19 Small for gestational age fe tus affecting management of mother, third trimester, single gestation 06/17/2016 08/06/2016 Decreased movements in second trimester 05/13/19 17 08/06/2016 documented as of this encounter (statuses as of 10/29/2022) [facility] of Past illness Narrative* Problem Noted Date Diagnosed Date Resolved Date Oligohydramnios in third trimester 08/08/2016 08/09/2016 Poor growth affecting management of mother in third trimester 08/06/2016 08/09/2016 IUGR (intrauterine growth re striction) affecting care of mother 08/06/2016 08/09/2016 False labor, antepartum 07/18/201607/19 Small for gestational age fe tus affecting management of mother, third trimester, single gestation 06/17/2016 08/06/2016 Decreased movements in second trimester 05/13/19 17 08/06/2016 documented as of this encounter (statuses as of 10/29/2022) [facility] of Past illness Narrative* Problem Noted Date Diagnosed Date Resolved Date Oligohydramnios in third trimester 08/08/2016 08/09/2016 Poor growth affecting management of mother in third trimester 08/06/2016 08/09/2016 IUGR (intrauterine growth re striction) affecting care of mother 08/06/2016 08/09/2016 False labor, antepartum 07/18/201607/19 Small for gestational age fe tus affecting management of mother, third trimester, single gestation 06/17/2016 08/06/2016 Decreased movements in second trimester 05/13/19 17 08/06/2016 documented as of this encounter (statuses as of 10/31/2022) [facility] History of Past illness Narrative* Problem Noted Date Diagnosed Date Resolved Date Oligohydramnios in third trimester 08/08/2016 08/09/2016 Poor growth affecting management of mother in third trimester 08/06/2016 08/09/2016 IUGR (intrauterine growth re striction) affecting care of mother 08/06/2016 08/09/2016 False labor, antepartum 07/18/201607/19 Small for gestational age fe tus affecting management of mother, third trimester, single gestation 06/17/2016 08/06/2016 Decreased movements in second trimester 05/13/19 17 08/06/2016 documented as of this encounter (statuses as of 11/04/2022) [facility] History of Past illness Narrative* Problem Noted Date Diagnosed Date Resolved Date Oligohydramnios in third trimester 08/08/2016 08/09/2016 Poor growth affecting management of mother in third trimester 08/06/2016 08/09/2016 IUGR (intrauterine growth re striction) affecting care of mother 08/06/2016 08/09/2016 False labor, antepartum 07/18/201607/19 Small for gestational age fe tus affecting management of mother, third trimester, single gestation 06/17/2016 08/06/2016 Decreased movements in second trimester 05/13/19 17 08/06/2016 documented as of this encounter (statuses as of 11/26/2022) [facility] History of Past illness Narrative* Problem Noted Date Diagnosed Date Resolved Date Oligohydramnios in third trimester 08/08/2016 08/09/2016 Poor growth affecting management of mother in third trimester 08/06/2016 08/09/2016 IUGR (intrauterine growth re striction) affecting care of mother 08/06/2016 08/09/2016 False labor, antepartum 07/18/201607/19 Small for gestational age fe tus affecting management of mother, third trimester, single gestation 06/17/2016 08/06/2016 Decreased movements in second trimester 05/13/19 17 08/06/2016 documented as of this encounter (statuses as of 11/26/2022) [facility] History of Past illness Narrative* Problem Noted Date Diagnosed Date Resolved Date Oligohydramnios in third trimester 08/08/2016 08/09/2016 Poor growth affecting management of mother in third trimester 08/06/2016 08/09/2016 IUGR (intrauterine growth re striction) affecting care of mother 08/06/2016 08/09/2016 False labor, antepartum 07/18/201607/19 Small for gestational age fe tus affecting management of mother, third trimester, single gestation 06/17/2016 08/06/2016 Decreased movements in second trimester 05/13/19 17 08/06/2016 documented as of this encounter (statuses as of 12/07/2022) [facility] History of Past illness Narrative* Problem Noted Date Diagnosed Date Resolved Date Oligohydramnios in third trimester 08/08/2016 08/09/2016 Poor growth affecting management of mother in third trimester 08/06/2016 08/09/2016 IUGR (intrauterine growth re striction) affecting care of mother 08/06/2016 08/09/2016 False labor, antepartum 07/18/201607/19 Small for gestational age fe tus affecting management of mother, third trimester, single gestation 06/17/2016 08/06/2016 Decreased movements in second trimester 05/13/19 17 08/06/2016 documented as of this encounter (statuses as of 12/10/2022) [facility] History of Past illness Narrative* Problem Noted Date Diagnosed Date Resolved Date Oligohydramnios in third trimester 08/08/2016 08/09/2016 Poor growth affecting management of mother in third trimester 08/06/2016 08/09/2016 IUGR (intrauterine growth re striction) affecting care of mother 08/06/2016 08/09/2016 False labor, antepartum 07/18/201607/19 Small for gestational age fe tus affecting management of mother, third trimester, single gestation 06/17/2016 08/06/2016 Decreased movements in second trimester 05/13/19 17 08/06/2016 documented as of this encounter (statuses as of 12/13/2022) [facility] History of Past illness Narrative* Problem Noted Date Diagnosed Date Resolved Date Oligohydramnios in third trimester 08/08/2016 08/09/2016 Poor growth affecting management of mother in third trimester 08/06/2016 08/09/2016 IUGR (intrauterine growth re striction) affecting care of mother 08/06/2016 08/09/2016 False labor, antepartum 07/18/201607/19 Small for gestational age fe tus affecting management of mother, third trimester, single gestation 06/17/2016 08/06/2016 Decreased movements in second trimester 05/13/19 17 08/06/2016 documented as of this encounter (statuses as of 12/17/2022) [facility] History of Past illness Narrative* Problem Noted Date Diagnosed Date Resolved Date Oligohydramnios in third trimester 08/08/2016 08/09/2016 Poor growth affecting management of mother in third trimester 08/06/2016 08/09/2016 IUGR (intrauterine growth re striction) affecting care of mother 08/06/2016 08/09/2016 False labor, antepartum 07/18/201607/19 Small for gestational age fe tus affecting management of mother, third trimester, single gestation 06/17/2016 08/06/2016 Decreased movements in second trimester 05/13/19 17 08/06/2016 documented as of this encounter (statuses as of 12/18/2022) [facility] History of Past illness Narrative* Problem Noted Date Diagnosed Date Resolved Date Oligohydramnios in third trimester 08/08/2016 08/09/2016 Poor growth affecting management of mother in third trimester 08/06/2016 08/09/2016 IUGR (intrauterine growth re striction) affecting care of mother 08/06/2016 08/09/2016 False labor, antepartum 07/18/201607/19 Small for gestational age fe tus affecting management of mother, third trimester, single gestation 06/17/2016 08/06/2016 Decreased movements in second trimester 05/13/19 17 08/06/2016 documented as of this encounter (statuses as of 12/19/2022) [facility] History of Past illness Narrative* Problem Noted Date Diagnosed Date Resolved Date Oligohydramnios in third trimester 08/08/2016 08/09/2016 Poor growth affecting management of mother in third trimester 08/06/2016 08/09/2016 IUGR (intrauterine growth re striction) affecting care of mother 08/06/2016 08/09/2016 False labor, antepartum 07/18/201607/19 Small for gestational age fe tus affecting management of mother, third trimester, single gestation 06/17/2016 08/06/2016 Decreased movements in second trimester 05/13/19 17 08/06/2016 documented as of this encounter (statuses as of 12/23/2022) [facility] History of Past illness Narrative* Problem Noted Date Diagnosed Date Resolved Date Oligohydramnios in third trimester 08/08/2016 08/09/2016 Poor growth affecting management of mother in third trimester 08/06/2016 08/09/2016 IUGR (intrauterine growth re striction) affecting care of mother 08/06/2016 08/09/2016 False labor, antepartum 07/18/201607/19 Small for gestational age fe tus affecting management of mother, third trimester, single gestation 06/17/2016 08/06/2016 Decreased movements in second trimester 05/13/19 17 08/06/2016 documented as of this encounter (statuses as of 12/27/2022) [facility] History of Past illness Narrative* Problem Noted Date Diagnosed Date Resolved Date Oligohydramnios in third trimester 08/08/2016 08/09/2016 Poor growth affecting management of mother in third trimester 08/06/2016 08/09/2016 IUGR (intrauterine growth re striction) affecting care of mother 08/06/2016 08/09/2016 False labor, antepartum 07/18/201607/19 Small for gestational age fe tus affecting management of mother, third trimester, single gestation 06/17/2016 08/06/2016 Decreased movements in second trimester 05/13/19 17 08/06/2016 documented as of this encounter (statuses as of 01/03/2023) [facility] History of Past illness Narrative* Problem Noted Date Diagnosed Date Resolved Date Oligohydramnios in third trimester 08/08/2016 08/09/2016 Poor growth affecting management of mother in third trimester 08/06/2016 08/09/2016 IUGR (intrauterine growth re striction) affecting care of mother 08/06/2016 08/09/2016 False labor, antepartum 07/18/201607/19 Small for gestational age fe tus affecting management of mother, third trimester, single gestation 06/17/2016 08/06/2016 Decreased movements in second trimester 05/13/19 17 08/06/2016 documented as of this encounter (statuses as of 01/12/2023) [facility] History of Past illness Narrative* Problem Noted Date Diagnosed Date Resolved Date Oligohydramnios in third trimester 08/08/2016 08/09/2016 Poor growth affecting management of mother in third trimester 08/06/2016 08/09/2016 IUGR (intrauterine growth re striction) affecting care of mother 08/06/2016 08/09/2016 False labor, antepartum 07/18/201607/19 Small for gestational age fe tus affecting management of mother, third trimester, single gestation 06/17/2016 08/06/2016 Decreased movements in second trimester 05/13/19 17 08/06/2016 documented as of this encounter (statuses as of 03/21/2023) [facility] History of Past illness Narrative* Problem Noted Date Diagnosed Date Resolved Date Oligohydramnios in third trimester 08/08/2016 08/09/2016 Poor growth affecting management of mother in third trimester 08/06/2016 08/09/2016 IUGR (intrauterine growth re striction) affecting care of mother 08/06/2016 08/09/2016 False labor, antepartum 07/18/201607/19 Small for gestational age fe tus affecting management of mother, third trimester, single gestation 06/17/2016 08/06/2016 Decreased movements in second trimester 05/13/19 17 08/06/2016 documented as of this encounter (statuses as of 03/28/2023) [facility] History of Past illness Narrative* Problem Noted Date Diagnosed Date Resolved Date Oligohydramnios in third trimester 08/08/2016 08/09/2016 Poor growth affecting management of mother in third trimester 08/06/2016 08/09/2016 IUGR (intrauterine growth re striction) affecting care of mother 08/06/2016 08/09/2016 False labor, antepartum 07/18/201607/19 Small for gestational age fe tus affecting management of mother, third trimester, single gestation 06/17/2016 08/06/2016 Decreased movements in second trimester 05/13/19 17 08/06/2016 documented as of this encounter (statuses as of 04/01/2023) [facility] History of Past illness Narrative* Problem Noted Date Diagnosed Date Resolved Date Oligohydramnios in third trimester 08/08/2016 08/09/2016 Poor growth affecting management of mother in third trimester 08/06/2016 08/09/2016 IUGR (intrauterine growth re striction) affecting care of mother 08/06/2016 08/09/2016 False labor, antepartum 07/18/201607/19 Small for gestational age fe tus affecting management of mother, third trimester, single gestation 06/17/2016 08/06/2016 Decreased movements in second trimester 05/13/19 17 08/06/2016 documented as of this encounter (statuses as of 2023) [facility] History of Past illness Narrative* Problem Noted Date Diagnosed Date Resolved Date Oligohydramnios in third trimester 08/08/2016 08/09/2016 Poor growth affecting management of mother in third trimester 08/06/2016 08/09/2016 IUGR (intrauterine growth re striction) affecting care of mother 08/06/2016 08/09/2016 False labor, antepartum 07/18/201607/19 Small for gestational age fe tus affecting management of mother, third trimester, single gestation 06/17/2016 08/06/2016 Decreased movements in second trimester 05/13/19 17 08/06/2016 documented as of this encounter (statuses as of 04/10/2023) [facility] History of Past illness Narrative* Problem Noted Date Diagnosed Date Resolved Date Oligohydramnios in third trimester 08/08/2016 08/09/2016 Poor growth affecting management of mother in third trimester 08/06/2016 08/09/2016 IUGR (intrauterine growth re striction) affecting care of mother 08/06/2016 08/09/2016 False labor, antepartum 07/18/201607/19 Small for gestational age fe tus affecting management of mother, third trimester, single gestation 06/17/2016 08/06/2016 Decreased movements in second trimester 05/13/19 17 08/06/2016 documented as of this encounter (statuses as of 04/10/2023) [facility] History of Past illness Narrative* Problem Noted Date Diagnosed Date Resolved Date Oligohydramnios in third trimester 08/08/2016 08/09/2016 Poor growth affecting management of mother in third trimester 08/06/2016 08/09/2016 IUGR (intrauterine growth re striction) affecting care of mother 08/06/2016 08/09/2016 False labor, antepartum 07/18/201607/19 Small for gestational age fe tus affecting management of mother, third trimester, single gestation 06/17/2016 08/06/2016 Decreased movements in second trimester 05/13/19 17 08/06/2016 documented as of this encounter (statuses as of 04/11/2023) [facility] History of Past illness Narrative* Problem Noted Date Diagnosed Date Resolved Date Oligohydramnios in third trimester 08/08/2016 08/09/2016 Poor growth affecting management of mother in third trimester 08/06/2016 08/09/2016 IUGR (intrauterine growth re striction) affecting care of mother 08/06/2016 08/09/2016 False labor, antepartum 07/18/201607/19 Small for gestational age fe tus affecting management of mother, third trimester, single gestation 06/17/2016 08/06/2016 Decreased movements in second trimester 05/13/19 17 08/06/2016 documented as of this encounter (statuses as of 04/11/2023) [facility] History of Past illness Narrative* Problem Noted Date Diagnosed Date Resolved Date Oligohydramnios in third trimester 08/08/2016 08/09/2016 Poor growth affecting management of mother in third trimester 08/06/2016 08/09/2016 IUGR (intrauterine growth re striction) affecting care of mother 08/06/2016 08/09/2016 False labor, antepartum 07/18/201607/19 Small for gestational age fe tus affecting management of mother, third trimester, single gestation 06/17/2016 08/06/2016 Decreased movements in second trimester 05/13/19 17 08/06/2016 documented as of this encounter (statuses as of 04/11/2023) [facility] History of Past illness Narrative* Problem Noted Date Diagnosed Date Resolved Date Oligohydramnios in third trimester 08/08/2016 08/09/2016 Poor growth affecting management of mother in third trimester 08/06/2016 08/09/2016 IUGR (intrauterine growth re striction) affecting care of mother 08/06/2016 08/09/2016 False labor, antepartum 07/18/201607/19 Small for gestational age fe tus affecting management of mother, third trimester, single gestation 06/17/2016 08/06/2016 Decreased movements in second trimester 05/13/19 17 08/06/2016 documented as of this encounter (statuses as of 04/16/2023) [facility] History of Past illness Narrative* Problem Noted Date Diagnosed Date Resolved Date Oligohydramnios in third trimester 08/08/2016 08/09/2016 Poor growth affecting management of mother in third trimester 08/06/2016 08/09/2016 IUGR (intrauterine growth re striction) affecting care of mother 08/06/2016 08/09/2016 False labor, antepartum 07/18/201607/19 Small for gestational age fe tus affecting management of mother, third trimester, single gestation 06/17/2016 08/06/2016 Decreased movements in second trimester 05/13/19 17 08/06/2016 documented as of this encounter (statuses as of 04/16/2023) [facility] History of Past illness Narrative* Problem Noted Date Diagnosed Date Resolved Date Oligohydramnios in third trimester 08/08/2016 08/09/2016 Poor growth affecting management of mother in third trimester 08/06/2016 08/09/2016 IUGR (intrauterine growth re striction) affecting care of mother 08/06/2016 08/09/2016 False labor, antepartum 07/18/201607/19 Small for gestational age fe tus affecting management of mother, third trimester, single gestation 06/17/2016 08/06/2016 Decreased movements in second trimester 05/13/19 17 08/06/2016 documented as of this encounter (statuses as of 04/17/2023) [facility] History of Past illness Narrative* Problem Noted Date Diagnosed Date Resolved Date Oligohydramnios in third trimester 08/08/2016 08/09/2016 Poor growth affecting management of mother in third trimester 08/06/2016 08/09/2016 IUGR (intrauterine growth re striction) affecting care of mother 08/06/2016 08/09/2016 False labor, antepartum 07/18/201607/19 Small for gestational age fe tus affecting management of mother, third trimester, single gestation 06/17/2016 08/06/2016 Decreased movements in second trimester 05/13/19 17 08/06/2016 documented as of this encounter (statuses as of 04/17/2023) [facility] History of Past illness Narrative* Problem Noted Date Diagnosed Date Resolved Date Oligohydramnios in third trimester 08/08/2016 08/09/2016 Poor growth affecting management of mother in third trimester 08/06/2016 08/09/2016 IUGR (intrauterine growth re striction) affecting care of mother 08/06/2016 08/09/2016 False labor, antepartum 07/18/201607/19 Small for gestational age fe tus affecting management of mother, third trimester, single gestation 06/17/2016 08/06/2016 Decreased movements in second trimester 05/13/19 17 08/06/2016 documented as of this encounter (statuses as of 04/18/2023) [facility] History of Past illness Narrative* Problem Noted Date Diagnosed Date Resolved Date Oligohydramnios in third trimester 08/08/2016 08/09/2016 Poor growth affecting management of mother in third trimester 08/06/2016 08/09/2016 IUGR (intrauterine growth re striction) affecting care of mother 08/06/2016 08/09/2016 False labor, antepartum 07/18/201607/19 Small for gestational age fe tus affecting management of mother, third trimester, single gestation 06/17/2016 08/06/2016 Decreased movements in second trimester 05/13/19 17 08/06/2016 documented as of this encounter (statuses as of 04/22/2023) [facility] of Past illness Narrative* Problem Noted Date Diagnosed Date Resolved Date Oligohydramnios in third trimester 08/08/2016 08/09/2016 Poor growth affecting management of mother in third trimester 08/06/2016 08/09/2016 IUGR (intrauterine growth re striction) affecting care of mother 08/06/2016 08/09/2016 False labor, antepartum 07/18/201607/19 Small for gestational age fe tus affecting management of mother, third trimester, single gestation 06/17/2016 08/06/2016 Decreased movements in second trimester 05/13/19 17 08/06/2016 documented as of this encounter (statuses as of 04/24/2023) [facility] Past illness Narrative* Problem Noted Date Diagnosed Date Resolved Date Oligohydramnios in third trimester 08/08/2016 08/09/2016 Poor growth affecting management of mother in third trimester 08/06/2016 08/09/2016 IUGR (intrauterine growth re striction) affecting care of mother 08/06/2016 08/09/2016 False labor, antepartum 07/18/201607/19 Small for gestational age fe tus affecting management of mother, third trimester, single gestation 06/17/2016 08/06/2016 Decreased movements in second trimester 05/13/19 17 08/06/2016 documented as of this encounter (statuses as of 04/24/2023) [facility] Past illness Narrative* Problem Noted Date Diagnosed Date Resolved Date Oligohydramnios in third trimester 08/08/2016 08/09/2016 Poor growth affecting management of mother in third trimester 08/06/2016 08/09/2016 IUGR (intrauterine growth re striction) affecting care of mother 08/06/2016 08/09/2016 False labor, antepartum 07/18/201607/19 Small for gestational age fe tus affecting management of mother, third trimester, single gestation 06/17/2016 08/06/2016 Decreased movements in second trimester 05/13/19 17 08/06/2016 documented as of this encounter (statuses as of 04/30/2023) [facility] Past illness Narrative* Problem Noted Date Diagnosed Date Resolved Date Oligohydramnios in third trimester 08/08/2016 08/09/2016 Poor growth affecting management of mother in third trimester 08/06/2016 08/09/2016 IUGR (intrauterine growth re striction) affecting care of mother 08/06/2016 08/09/2016 False labor, antepartum 07/18/201607/19 Small for gestational age fe tus affecting management of mother, third trimester, single gestation 06/17/2016 08/06/2016 Decreased movements in second trimester 05/13/19 17 08/06/2016 documented as of this encounter (statuses as of 04/30/2023) [facility] of Past illness Narrative* Problem Noted Date Diagnosed Date Resolved Date Oligohydramnios in third trimester 08/08/2016 08/09/2016 Poor growth affecting management of mother in third trimester 08/06/2016 08/09/2016 IUGR (intrauterine growth re striction) affecting care of mother 08/06/2016 08/09/2016 False labor, antepartum 07/18/201607/19 Small for gestational age fe tus affecting management of mother, third trimester, single gestation 06/17/2016 08/06/2016 Decreased movements in second trimester 05/13/19 17 08/06/2016 documented as of this encounter (statuses as of 05/06/2023) [facility] Past illness Narrative* Problem Noted Date Diagnosed Date Resolved Date Oligohydramnios in third trimester 08/08/2016 08/09/2016 Poor growth affecting management of mother in third trimester 08/06/2016 08/09/2016 IUGR (intrauterine growth re striction) affecting care of mother 08/06/2016 08/09/2016 False labor, antepartum 07/18/201607/19 Small for gestational age fe tus affecting management of mother, third trimester, single gestation 06/17/2016 08/06/2016 Decreased movements in second trimester 05/13/19 17 08/06/2016 documented as of this encounter (statuses as of 05/08/2023) [facility] Past illness Narrative* Problem Noted Date Diagnosed Date Resolved Date Oligohydramnios in third trimester 08/08/2016 08/09/2016 Poor growth affecting management of mother in third trimester 08/06/2016 08/09/2016 IUGR (intrauterine growth re striction) affecting care of mother 08/06/2016 08/09/2016 False labor, antepartum 07/18/201607/19 Small for gestational age fe tus affecting management of mother, third trimester, single gestation 06/17/2016 08/06/2016 Decreased movements in second trimester 05/13/19 17 08/06/2016 documented as of this encounter (statuses as of 05/12/2023) [facility] of Past illness Narrative* Problem Noted Date Diagnosed Date Resolved Date Oligohydramnios in third trimester 08/08/2016 08/09/2016 Poor growth affecting management of mother in third trimester 08/06/2016 08/09/2016 IUGR (intrauterine growth re striction) affecting care of mother 08/06/2016 08/09/2016 False labor, antepartum 07/18/201607/19 Small for gestational age fe tus affecting management of mother, third trimester, single gestation 06/17/2016 08/06/2016 Decreased movements in second trimester 05/13/19 17 08/06/2016 documented as of this encounter (statuses as of 05/19/2023) [facility] of Past illness Narrative* Problem Noted Date Diagnosed Date Resolved Date Oligohydramnios in third trimester 08/08/2016 08/09/2016 Poor growth affecting management of mother in third trimester 08/06/2016 08/09/2016 IUGR (intrauterine growth re striction) affecting care of mother 08/06/2016 08/09/2016 False labor, antepartum 07/18/201607/19 Small for gestational age fe tus affecting management of mother, third trimester, single gestation 06/17/2016 08/06/2016 Decreased movements in second trimester 05/13/19 17 08/06/2016 documented as of this encounter (statuses as of 05/20/2023) [facility] Past illness Narrative* Problem Noted Date Diagnosed Date Resolved Date Oligohydramnios in third trimester 08/08/2016 08/09/2016 Poor growth affecting management of mother in third trimester 08/06/2016 08/09/2016 IUGR (intrauterine growth re striction) affecting care of mother 08/06/2016 08/09/2016 False labor, antepartum 07/18/201607/19 Small for gestational age fe tus affecting management of mother, third trimester, single gestation 06/17/2016 08/06/2016 Decreased movements in second trimester 05/13/19 17 08/06/2016 documented as of this encounter (statuses as of 05/22/2023) [facility] History of Past illness Narrative* Problem Noted Date Diagnosed Date Resolved Date Oligohydramnios in third trimester 08/08/2016 08/09/2016 Poor growth affecting management of mother in third trimester 08/06/2016 08/09/2016 IUGR (intrauterine growth re striction) affecting care of mother 08/06/2016 08/09/2016 False labor, antepartum 07/18/201607/19 Small for gestational age fe tus affecting management of mother, third trimester, single gestation 06/17/2016 08/06/2016 Decreased movements in second trimester 05/13/19 17 08/06/2016 documented as of this encounter (statuses as of 05/22/2023) [facility] History of Past illness Narrative* Problem Noted Date Diagnosed Date Resolved Date Oligohydramnios in third trimester 08/08/2016 08/09/2016 Poor growth affecting management of mother in third trimester 08/06/2016 08/09/2016 IUGR (intrauterine growth re striction) affecting care of mother 08/06/2016 08/09/2016 False labor, antepartum 07/18/201607/19 Small for gestational age fe tus affecting management of mother, third trimester, single gestation 06/17/2016 08/06/2016 Decreased movements in second trimester 05/13/19 17 08/06/2016 documented as of this encounter (statuses as of 05/22/2023) [facility] History of Past illness Narrative* Problem Noted Date Diagnosed Date Resolved Date Oligohydramnios in third trimester 08/08/2016 08/09/2016 Poor growth affecting management of mother in third trimester 08/06/2016 08/09/2016 IUGR (intrauterine growth re striction) affecting care of mother 08/06/2016 08/09/2016 False labor, antepartum 07/18/201607/19 Small for gestational age fe tus affecting management of mother, third trimester, single gestation 06/17/2016 08/06/2016 Decreased movements in second trimester 05/13/19 17 08/06/2016 documented as of this encounter (statuses as of 05/23/2023) [facility] History of Past illness Narrative* Problem Noted Date Diagnosed Date Resolved Date Oligohydramnios in third trimester 08/08/2016 08/09/2016 Poor growth affecting management of mother in third trimester 08/06/2016 08/09/2016 IUGR (intrauterine growth re striction) affecting care of mother 08/06/2016 08/09/2016 False labor, antepartum 07/18/201607/19 Small for gestational age fe tus affecting management of mother, third trimester, single gestation 06/17/2016 08/06/2016 Decreased movements in second trimester 05/13/19 17 08/06/2016 documented as of this encounter (statuses as of 05/23/2023) [facility] History of Past illness Narrative* Problem Noted Date Diagnosed Date Resolved Date Oligohydramnios in third trimester 08/08/2016 08/09/2016 Poor growth affecting management of mother in third trimester 08/06/2016 08/09/2016 IUGR (intrauterine growth re striction) affecting care of mother 08/06/2016 08/09/2016 False labor, antepartum 07/18/201607/19 Small for gestational age fe tus affecting management of mother, third trimester, single gestation 06/17/2016 08/06/2016 Decreased movements in second trimester 05/13/19 17 08/06/2016 documented as of this encounter (statuses as of 05/28/2023) [facility] History of Past illness Narrative* Problem Noted Date Diagnosed Date Resolved Date Oligohydramnios in third trimester 08/08/2016 08/09/2016 Poor growth affecting management of mother in third trimester 08/06/2016 08/09/2016 IUGR (intrauterine growth re striction) affecting care of mother 08/06/2016 08/09/2016 False labor, antepartum 07/18/201607/19 Small for gestational age fe tus affecting management of mother, third trimester, single gestation 06/17/2016 08/06/2016 Decreased movements in second trimester 05/13/19 17 08/06/2016 documented as of this encounter (statuses as of 05/29/2023) [facility] History of Past illness Narrative* Problem Noted Date Diagnosed Date Resolved Date Oligohydramnios in third trimester 08/08/2016 08/09/2016 Poor growth affecting management of mother in third trimester 08/06/2016 08/09/2016 IUGR (intrauterine growth re striction) affecting care of mother 08/06/2016 08/09/2016 False labor, antepartum 07/18/201607/19 Small for gestational age fe tus affecting management of mother, third trimester, single gestation 06/17/2016 08/06/2016 Decreased movements in second trimester 05/13/19 17 08/06/2016 documented as of this encounter (statuses as of 05/30/2023) [facility] History of Past illness Narrative* Problem Noted Date Diagnosed Date Resolved Date Oligohydramnios in third trimester 08/08/2016 08/09/2016 Poor growth affecting management of mother in third trimester 08/06/2016 08/09/2016 IUGR (intrauterine growth re striction) affecting care of mother 08/06/2016 08/09/2016 False labor, antepartum 07/18/201607/19 Small for gestational age fe tus affecting management of mother, third trimester, single gestation 06/17/2016 08/06/2016 Decreased movements in second trimester 05/13/19 17 08/06/2016 documented as of this encounter (statuses as of 06/06/2023) [facility] + Plan note No data available for this section [facility] Evaluation note* Diagnosis Sprain of right ankle, unspecified ligament, initial encounter- Primary documented in this encounter [facility] Work Phone: Evaluation note* Diagnosis Syncope, unspecified syncope type Lightheadedness Dizziness and giddiness Orthostatic hypotension Palpitations documented in this encounter [facility] Work Phone: Evaluation note* Diagnosis Status post right foot surgery- Primary documented in this encounter [facility] Work Phone: Evaluation note* Diagnosis Encounter for annual general medical examination without abnormal findings in adult- Primary Anxiety with depression Mild intermittent asthma, uncomplicated Unspecified asthma Vitamin D deficiency Unspecified vitamin D deficiency Fatigue, unspecified type documented in this encounter [facility] note* Diagnosis Abnormal TSH- Primary Other abnormal clinical finding documented in this encounter [facility] note* Diagnosis Mild intermittent asthma, uncomplicated- Primary Unspecified asthma documented in this encounter [facility] note* Diagnosis Justina's thyroiditis Chronic lymphocytic thyroiditis documented in this encounter [facility] note* Diagnosis Low oxygen saturation- Primary Abnormal arterial blood gases SOB (shortness of breath) Shortness of breath [facility] Diagnosis Acute otitis media, right- Primary Unspecified otitis media Right ear pain Otalgia, unspecified documented in this encounter [facility] note* Diagnosis Mild intermittent asthma with acute exacerbation- Primary Unspecified asthma, with exacerbation SOB (shortness of breath) Shortness of breath Wheezing documented in this encounter [facility] note* Diagnosis Mild persistent asthma without complication Unspecified asthma [facility]* Diagnosis Pulmonary eosinophilia (HCC)- Primary Pulmonary eosinophilia Late onset asthma, severe persistent, with status asthmaticus Asthma, moderate persistent, poorly-controlled Unspecified asthma documented in this encounter [facility] note* Diagnosis Mild intermittent asthma, uncomplicated Unspecified asthma [facility]* Diagnosis Late onset asthma, severe persistent, with status asthmaticus [facility] Diagnosis Moderate persistent asthma without complication- Primary Unspecified asthma documented in this encounter [facility] note* Diagnosis Pulmonary eosinophilia (HCC)- Primary Pulmonary eosinophilia Late onset asthma, severe persistent, with status asthmaticus [facility]* Diagnosis Foot pain, right- Primary Pain in limb Abnormal weight gain [facility]* Diagnosis Viral URI with cough- Primary Acute upper respiratory infections of unspecified site [facility]* Diagnosis Severe persistent asthma with acute exacerbation- Primary Unspecified asthma, with exacerbation [facility] Diagnosis Late onset asthma, severe persistent, with status asthmaticus- Primary Pulmonary eosinophilia (HCC) Pulmonary eosinophilia [facility]* Diagnosis Mild asthma, unspecified whether complicated, unspecified whether persistent [facility]* Diagnosis Justina's thyroiditis Chronic lymphocytic thyroiditis documented in this encounter [facility] note* Diagnosis Insect bite of left upper arm, initial encounter- Primary Skin erythema Unspecified erythematous condition [facility]* Diagnosis Mild intermittent asthma, uncomplicated Unspecified asthma [facility]* Diagnosis Right ankle instability- Primary Other joint derangement, not elsewhere classified, ankle and foot documented in this encounter [facility] note* Diagnosis Right ankle instability- Primary Other joint derangement, not elsewhere classified, ankle and foot documented in this encounter [facility] note* Diagnosis Lightheaded- Primary Dizziness and giddiness Hypoglycemia Hypoglycemia, unspecified [facility]* Diagnosis Hypoglycemia- Primary Hypoglycemia, unspecified documented in this encounter [facility] note* Diagnosis Adrenal insufficiency (HCC)- Primary Glucocorticoid deficiency Reactive hypoglycemia Hypoglycemia, unspecified documented in this encounter [facility] note* Diagnosis Hypoglycemia Hypoglycemia, unspecified documented in this encounter [facility] note* Diagnosis Mild intermittent asthma, uncomplicated Unspecified asthma [facility]* Diagnosis Asthma, late onset, severe persistent, uncomplicated- Primary Adrenal insufficiency due to corticosteroid withdrawal ([facility]) documented in this encounter [facility] note* Diagnosis Hypoglycemia- Primary Hypoglycemia, unspecified Low serum cortisol level Glucocorticoid deficiency Class 3 severe obesity due to excess calories with serious comorbidity and body mass index (BMI) of 45.0 to 49.9 in adult ([facility]) documented in this encounter [facility] note* Diagnosis Right ankle instability- Primary Other joint derangement, not elsewhere classified, ankle and foot [facility]* Diagnosis Right ankle instability- Primary Other joint derangement, not elsewhere classified, ankle and foot documented in this encounter [facility] note* Diagnosis Mild intermittent asthma, uncomplicated- Primary Unspecified asthma documented in this encounter [facility] note* Diagnosis Anxiety with depression- Primary Acute non-recurrent maxillary sinusitis Attention deficit hyperactivity disorder (ADHD), predominantly inattentive type documented in this encounter [facility] note* Diagnosis Viral URI with cough- Primary Acute upper respiratory infections of unspecified site [facility]* Diagnosis Asthma, late onset, severe persistent, uncomplicated- Primary [facility]* Diagnosis Mild intermittent asthma, uncomplicated Unspecified asthma [facility]* Diagnosis Bipolar II disorder (HCC)- Primary Other bipolar disorders Major depressive disorder, recurrent episode, moderate ([facility]) Major depressive disorder, recurrent episode, moderate Generalized anxiety disorder documented in this encounter [facility] note* Diagnosis Left-sided chest wall pain- Primary Painful respiration Upper back pain on left side Pain in thoracic spine Low blood sugar Hypoglycemia, unspecified documented in this encounter [facility] note* Diagnosis Generalized anxiety disorder- Primary documented in this encounter [facility] note* Diagnosis Right ankle instability- Primary Other joint derangement, not elsewhere classified, ankle and foot documented in this encounter [facility] note* Diagnosis Major depressive disorder, recurrent episode, moderate (HCC) Major depressive disorder, recurrent episode, moderate Bipolar II disorder (HCC) Other bipolar disorders documented in this encounter [facility] note* Diagnosis Bipolar II disorder (HCC)- Primary Other bipolar disorders Generalized anxiety disorder Major depressive disorder, recurrent episode, moderate (HCC) Major depressive disorder, recurrent episode, moderate documented in this encounter [facility] note* Diagnosis Asthma, late onset, severe persistent, uncomplicated- Primary Non-seasonal allergic rhinitis due to pollen documented in this encounter [facility] note* Diagnosis Environmental and seasonal allergies- Primary [facility] Diagnosis Infected abrasion of right knee, initial encounter- Primary documented in this encounter [facility] note* Diagnosis Bipolar II disorder (HCC)- Primary Other bipolar disorders documented in this encounter [facility] note* Diagnosis Bipolar II disorder (HCC)- Primary Other bipolar disorders Generalized anxiety disorder Major depressive disorder, recurrent episode, moderate (HCC) Major depressive disorder, recurrent episode, moderate documented in this encounter [facility] note* Diagnosis Generalized anxiety disorder Major depressive disorder, recurrent episode, moderate (HCC) Major depressive disorder, recurrent episode, moderate documented in this encounter [facility] note* Diagnosis Bipolar II disorder (HCC)- Primary Other bipolar disorders Generalized anxiety disorder Major depressive disorder, recurrent episode, moderate (HCC) Major depressive disorder, recurrent episode, moderate documented in this encounter [facility] note* Diagnosis Generalized anxiety disorder Major depressive disorder, recurrent episode, moderate (HCC) Major depressive disorder, recurrent episode, moderate documented in this encounter [facility] note* Diagnosis Bipolar II disorder (HCC)- Primary Other bipolar disorders Generalized anxiety disorder Major depressive disorder, recurrent episode, moderate (HCC) Major depressive disorder, recurrent episode, moderate documented in this encounter [facility] note* Diagnosis Bipolar II disorder (HCC)- Primary Other bipolar disorders documented in this encounter [facility] note* Diagnosis Mild intermittent asthma, uncomplicated Unspecified asthma documented in this encounter [facility] note* Diagnosis Bipolar II disorder (HCC)- Primary Other bipolar disorders Generalized anxiety disorder documented in this encounter [facility] note* Diagnosis Severe persistent asthma without complication- Primary documented in this encounter [facility] note* Diagnosis Severe persistent asthma without complication- Primary documented in this encounter [facility] note* Diagnosis Asthma, late onset, severe persistent, uncomplicated- Primary documented in this encounter [facility] note* Diagnosis Reactive hypoglycemia- Primary Hypoglycemia, unspecified Abnormal glucose Other abnormal glucose Vitamin B12 deficiency Other B-complex deficiencies documented in this encounter [facility] note* Diagnosis Generalized anxiety disorder- Primary documented in this encounter [facility] note* Diagnosis Bipolar II disorder (HCC)- Primary Other bipolar disorders Generalized anxiety disorder documented in this encounter [facility] note* Diagnosis Mild intermittent asthma, uncomplicated Unspecified asthma documented in this encounter [facility] note* Diagnosis Asthma exacerbation attacks- Primary Moderate persistent asthma with exacerbation Unspecified asthma, with exacerbation Asthma exacerbation, mild documented in this encounter [facility] note* Diagnosis Moderate persistent asthma, uncomplicated- Primary documented in this encounter [facility] note* Diagnosis Asthma, late onset, severe persistent, uncomplicated- Primary Eosinophilic asthma Pulmonary eosinophilia Class 3 severe obesity with serious comorbidity and body mass index (BMI) of 40.0 to 44.9 in adult, unspecified obesity type (HCC) documented in this encounter [facility] note* Diagnosis Mild intermittent asthma, uncomplicated Unspecified asthma documented in this encounter [facility] note* Diagnosis Asthma, moderate persistent, poorly-controlled- Primary Unspecified asthma Costochondritis Tietze's disease documented in this encounter [facility] note* Diagnosis Reactive hypoglycemia- Primary Hypoglycemia, unspecified Asthma, late onset, severe persistent, uncomplicated (HCC) Class 3 severe obesity due to excess calories with serious comorbidity and body mass index (BMI) of 40.0 to 44.9 in adult (HCC) Vitamin B12 deficiency Other B-complex deficiencies documented in this encounter [facility] note* Diagnosis Right ankle instability- Primary Other joint derangement, not elsewhere classified, ankle and foot Chronic pain of right ankle documented in this encounter [facility] note* Diagnosis Bipolar II disorder (HCC) Other bipolar disorders [facility]ructions* Man Marcos, DPM - 08/10/2021 POST OPERATIVE INSTRUCTIONS PLEASE READ CAREFULLY [x] Rest but walk occasionally to prevent leg blood clots. [x] Elevation of leg while resting to at least the level of the thigh. [x] Keep ice bag(s) on area while resting; (20 minutes on and 20 minutes off). [x] DO NOT remove or get the dressing wet or dirty. [x] For showering, apply 2 layers of plastic wrap around the dressing and then place in a plastic bag with a tight rubber band. Do not immerse dressing in water. [x] Weight bearing with cast walker boot [x] Call my office today (office [phone]) for follow up appointment in 3 days. [x] Have your prescriptions filled promptly and take as prescribed. [x] Do not be alarmed if blood appears on the bandage or if black and blue callaway appear. Some silver dollar size blood on outer bandage is ok. If this gets larger Please call me. My cell phone is [phone]. [x] If any unusual situation arises- Call Immediately. [facility] Reason for referral (narrative)* Outpatient Procedure (Routine) - Closed Specialty Diagnoses / Procedures Referred By Jj gonzalez Ref[facility] Diagnoses Late onset asthma, severe persistent, with status asthmaticus Procedures NITRIC OXIDE, EXHALED NITRIC OXIDE GAS DETERMINATION Robson Zuniga MD [address] [place] [id number] [facility] [address] [place] [address] Referral ID Status Reason Start Date Expiration Date V isits Requested Visits Authorized [id number] Closed Auto-Generate d Referral 09/26/2022 02/16/2023 1 1 * Outpatient Procedure (Routine) - Closed Specialty Diagnoses / Procedures Referred By Jj gonzalez Referred To [facility] Diagnoses Late onset asthma, severe persistent, with status asthmaticus Procedures SPIROMETRY WITH DILATOR IF OBSTRUCTED BRNCDILAT RSPSE SPMTRY PRE&POST-BRNCDILAT ADMN Efrain, Robson J, MD [address] [place] [address] [facility] [address] [place] [address] Referral ID Status Reason Start Date Expiration Date V isits Requested Visits Authorized [id number] Closed Auto-Generated Referral Clearance Not Met -Financial Clearance Bypassed 09/26/2022 02/16/2023 1 1 [facility] Diagnostic Procedure Only (Routine) - Closed Specialty Diagnoses / Procedures Referred By Contac t Referred To Contact US IMAGING Diagnoses Justina's thyroiditis Procedures US THYROID/PARATHYROID US SOFT TISSUE HEAD & NECK REAL TIME IMGE DOCDonald Thornton DO [address] [place] [address] [place] [id number] Referral ID Status Reason Start Date Expiration Date V isits Requested Visits Authorized [id number] Closed Auto-Generate d Referral 04/11/2022 05/11/2023 1 1 [facility] Reason for Referral Status Reason Specialty Diagnoses / Procedures Re ferred By Contact Referred To Contact Closed Cardiology Diagnoses Orthostatic hypotension Orthostatic lightheadedness Procedures Echocardiogram complete Jose Alfredo King MD [address] [place] [id number] Status Reason Specialty Diagnoses / Procedures Referre d By Contact Referred To Contact Open Diagnoses Syncope, unspecified syncope type Lightheadedness Orthostatic hypotension Palpitations Procedures Cardiac event monitor Liliya Baeza, [employer] ASSISTANT - [employer] PAYABLE ASSOCIATE [address] [place] [address] [place] [address] [facility] [address] [place] [address] Specialty Diagnoses / Procedures Referred By Contac t Referred To Contact Orthopedics Diagnoses Foot pain, right Procedures CONSULT TO ORTHOPAEDIC SURGERY OFFICE/OUTPATIENT [facility] 60-74 MINUTES Donald Snowden DO [address] [place] [address] Referral ID Status Reason Start Date Expiration Date Visits Requested Visits Authorized [id number] Authorized PCP Requested Referral 11/26/2023 1 1 Specialty Diagnoses / Procedures Referred By Contac t Referred To Contact Endocrinology Diagnoses Hypoglycemia Procedures CONSULT TO ENDOCRINOLOGY OFFICE/OUTPATIENT [facility] 60 MINUTES Krystle Espinoza, [employer] PLAYER ASSISTANT.[employer] PAYABLE ASSOCIATE [address] [place] [address] Referral ID Status Reason Start Date Expiration Date Visits Requested Visits Authorized [id number] Authorized PCP Requested Referral 04/11/2023 04/10/2024 1 1 Specialty Diagnoses / Procedures Referred By Contac t Referred To Contact Allergy Diagnoses Asthma, late onset, severe persistent, uncomplicated Non-seasonal allergic rhinitis due to pollen Procedures CONSULT TO ALLERGY/IMMUNOLOGY OFFICE/OUTPATIENT [facility] 60 MINUTES Robson Zuniga MD [address] [address] Referral ID Status Reason Start Date Expiration Date Visits Requested Visits Authorized [id number] Authorized PCP Requested Referral 08/25/2023 08/24/2024 1 1 Specialty Diagnoses / Procedures Referred By Contac t Referred To Contact Allergy Diagnoses Environmental and seasonal allergies Procedures CONSULT TO ALLERGY/IMMUNOLOGY OFFICE/[facility]PATIENT [facility] [facility] [place] [facility]ES Nusrat Lemos, GOLF PLAYER ASSISTANT.ACCOUNTS PAYABLE ASSOCIATE [address] [place] [address] Referral ID Status Reason Start Date Expiration Date Visits Requested Visits Authorized [id number] Authorized PCP Requested Referral 08/25/2023 08/24/2024 1 1 Specialty Diagnoses / Procedures Referred By Contac t Referred To Contact Psychology Diagnoses Bipolar II disorder (HCC) Procedures CONSULT TO PSYCHOLOGY OFFICE/OUTPATIENT [facility] [place] 60 MINUTES Chase Bazan, GOLF PLAYER ASSISTANT.ACCOUNTS PAYABLE ASSOCIATE [address] [facility] [address] [place] [address] Referral ID Status Reason Start Date Expiration Date Visits Requested Visits Authorized [id number] Pending Review PCP Requested Referral 09/08/2023 09/07/2024 1 1 Specialty Diagnoses / Procedures Referred By Jj t Referred To Contact Diagnoses Moderate persistent asthma, uncomplicated Procedures Complete PFT pre and post bronchodil[place] [address] [place] [address] Referral ID Status Reason Start Date Expiration Date V isits Requested Visits Authorized [id number] Incomplete 12/12/2021 06/10/2022 1 1 Assessments Diagnosis Orthostatic hypotension Orthostatic lightheadedness Orthostatic hypotension Diagnosis Vasovagal syncope- Primary Syncope and collapse Acute cystitis without hematuria Acute cystitis Advance Directives No Advanced Directives Records FoundDocuments on File Type Date Recorded 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 Advance Directives and Living Will Power of Outside Salesman Documents on File Type Date Recorded 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 anation Advance Directives and Living Will Power of Outside Salesman Documents on File Type Date Recorded 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 anation ACP-Advance Directive ACP-Power of Outside Salesman Latest Code Status on File Code Status Date Activated Date Inactivated Comments Full Code 08/10/2021 6:13 AM Summary Purpose Family History No Family History Records FoundNo Family History Records FoundNo Family History Records FoundNo Family History Records FoundNo Family History Records FoundNo Family History Records FoundNo Family History Records Found No data available for this section No Family History Records FoundNo Family History Records FoundNo Family History Records FoundNo Family History Records FoundNo Family History Records FoundNo Family History Records FoundNo Family History Records Found Discharge Instructions * Attachments The following attachments cannot be sent through Care Everywhere. * Vasovagal Syncope (Cuban) * Fainting (Cuban) * UTI (Urinary Tract Infection): Female (Cuban) documented in this encounter Health Concerns Infection Onset Date Last Indicated Resolved Time COVID-19 Rule-Out 06/16/2022 06/16/2022 06/16/2022 10:50 AM EDT Infection Onset Date Last Indicated Resolved Time Influenza 05/23/2023 05/23/2023 Additional Source Comments INFORMATION SOURCE (unrecogn ized section and content) DATE CREATED AUTHOR 12/28/2019 [facility] DATE CREATED AUTHOR AUTHOR'S ORGANIZ ATION 01/25/2020 [facility] DATE CREATED AUTHOR AUTHOR'S ORGANIZ ATION 08/02/2020 [facility] DATE CREATED AUTHOR AUTHOR'S ORGANIZ ATION 11/17/2021 [facility] DATE CREATED AUTHOR AUTHOR'S ORGANIZ ATION 02/25/2022 [facility] DATE CREATED AUTHOR AUTHOR'S ORGANIZ ATION 11/24/[address] [facility] DATE CREATED AUTHOR AUTHOR'S ORGANIZ ATION 01/06/2023 [facility] DATE CREATED AUTHOR AUTHOR'S ORGANIZ ATION 06/08/2023 [facility] ([place] DATE CREATED AUTHOR AUTHOR'S ORGANIZ ATION 09/11/2023 [facility] DATE CREATED AUTHOR AUTHOR'S ORGANIZ ATION 10/01/2023 [facility] DATE CREATED AUTHOR AUTHOR'S ORGANIZ ATION 10/24/2023 [facility] DATE CREATED AUTHOR AUTHOR'S ORGANIZ ATION 08/13/2024 [facility] DATE CREATED AUTHOR AUTHOR'S ORGANIZ ATION 08/30/[address] [facility] DATE CREATED AUTHOR AUTHOR'S ORGANIZ ATION 08/31/[address] [facility] Reason for Visit (unrecogniz ed section and content) Reason Comments Loss of Consciousness Reason Comments Ankle Injury right Reason Comments Establish Care Anxiety, fatigue Reason Comments Thyroid Problem Specialty Diagnoses / Procedures Referred By Jj gonzalez Referred To Contact Endocrinology Diagnoses Justina's thyroiditis Procedures CONSULT TO ENDOCRINOLOGY OFFICE/OUTPATIENT [facility] [place] 60-74 MINUTES Donald Snowden DO [address] [place] [address] Referral ID Status Reason Start Date Expiration Date V isits Requested Visits Authorized [id number] Closed PCP Requested Referral 04/11/2022 04/11/2023 1 1 Reason Comments Refill Request Reason Comments Medication Problem Anxiety Reason Comments Viral Syndrome Having sob from asth ma, has been going on since . Pt out of albuterol Reason Comments Ear Pain And Jaw pain started yesterday rt ear and rt side of her jaw, Reason Comments Shortness of Breath Wheezing x 1 week Reason Comments Asthma Reason Comments Spirometry Specialty Diagnoses / Procedures Referred By Jj gonzalez Referred To Contact [facility] Diagnoses Late onset asthma, severe persistent, with status asthmaticus Procedures NITRIC OXIDE, EXHALED NITRIC OXIDE GAS DETERMINATION Robson Zuniga MD [address] [place] [address] [facility] [address] [place] [address] Referral ID Status Reason Start Date Expiration Date V isits Requested Visits Authorized [id number] Closed Auto-Generate d Referral 09/26/2022 02/16/2023 1 1 Reason Comments Cough Asthma Reason Onset Date Comments Refill Request 09/29/2022 Reason Comments FMLA Paperwork Reason Comments Results Reason Comments Orders Reason Comments Opened In Error Reason Comments Insurance Authorization nucala Reason Comments Pain (foot) right Weight Problem Reason Comments Viral Syndrome Sxs started today sh e has a runny nose has taken allergy meds, ears are clogged. Pt needs DRS note for today and tomorrow. Reason Comments FYI-No Action Needed Reason Comments Cough Reason Comments Asthma Cough Reason Onset Date Comments Refill Request 12/17/2022 Reason Comments Radiology US Specialty Diagnoses / Procedures Referred By Contac t Referred To Contact US IMAGING Diagnoses Justina's thyroiditis Procedures US THYROID/PARATHYROID US SOFT TISSUE HEAD & NECK REAL TIME IMGE Donald Jensen, DO [address] [place] [address] [place] [id number] Referral ID Status Reason Start Date Expiration Date V isits Requested Visits Authorized [id number] Closed Auto-Generate d Referral 04/11/2022 05/11/2023 1 1 Reason Comments Medication Problem Reason Comments Insect Bite L upper arm x1 day Reason Comments Physical Therapy Specialty Diagnoses / Procedures Referred By Contac t Referred To Contact [facility] Diagnoses Right ankle instability Procedures CONSULT TO PHYSICAL THERAPY PHYSICAL THERAPY EVALUATION HIGH COMPLEX 45 MINS Arlene Pittman [address] [place] [address] [facility] [address] [address] Referral ID Status Reason Start Date Expiration Date Visits Requested Visits Authorized [id number] Authorized Auto-Generat ed Referral 03/12/2023 02/17/2024 99 99 Reason Comments Low Blood Sugar Reason Comments Dizziness Lighthead, legs felt weak, shaky, patient ate food and after 30 mins later tested sugar 63 with ( has glucose monitor since he has diabetes) Reason Comments Appointment Reason Comments Medical Nutrition Therapy Hypoglycemia Specialty Diagnoses / Procedures Referred By Contac t Referred To Contact Diagnoses Adrenal insufficiency (HCC) Reactive hypoglycemia Procedures ENDOCRINOLOGY DIETITIAN VISIT (MNT) MEDICAL NUTRITION ASSMT&IVNTJ INDIV EACH 15 [place] MEDICAL NUTRITION ASSMT&IVNTJ INDIV EACH 15 [place] MEDICAL NUTRITION ASSMT&IVNTJ INDIV EACH [place] MEDICAL NUTRITION ASSMT&IVNTJ INDIV EACH [place] Owen Feliz Jr., MD [address] [place] [address] Referral ID Status Reason Start Date Expiration Date V isits Requested Visits Authorized [id number] Closed PCP Requested Referral 04/13/2023 04/12/2024 1 1 Reason Comments Follow Up All Clear Reason Comments Patient Question Reason Comments Med Change Request Reason Comments Dexcom transmitter not sent Reason Comments Low Blood Sugar Patient states that she is low. Dexcom was reading low, so I performed an POC glucose check. (77) Specialty Diagnoses / Procedures Referred By Jj t Referred To Contact Endocrinology Diagnoses Hypoglycemia Procedures CONSULT TO ENDOCRINOLOGY OFFICE/OUTPATIENT [facility] [place] 60 MINUTES Krystle Espinoza APRN.ACCOUNTS PAYABLE ASSOCIATE [address] [place] [address] Referral ID Status Reason Start Date Expiration Date V isits Requested Visits Authorized [id number] Closed PCP Requested Referral 04/11/2023 04/10/2024 1 1 Reason Comments PT Progress Note Specialty Diagnoses / Procedures Referred By Jj t Referred To Contact PHYSICAL THERAPY Diagnoses Right ankle instability Procedures CONSULT TO PHYSICAL THERAPY PHYSICAL THERAPY EVALUATION HIGH COMPLEX 45 MINS Arlene Pittman [address] [place] [address] Pt [facility] [address] [place] [address] Reason Comments Follow Up Pain Reason Comments Breathing Problem Reason Comments ADD/ADHD Trouble concentratin g in school Cough 4 days Reason Comments New Rx Request Reason Comments Rectal Problem Has blood in stool, started couple months ago Viral Syndrome Would like tested fo r flu, mother was positive Reason Comments Letter for Work Reason Onset Date Comments Refill Request 07/15/2023 Reason Comments Insurance Authorization Nucala Reason Comments Anxiety Depression Reason Comments Blood Pressure Low glucose, CP Reason Comments Psychiatric Problem Reason Onset Date Comments Refill Request 08/13/2023 Reason Comments Bipolar Disorder Anxiety Reason Comments Knee Pain Scraped knee last , feels its infected now Reason Comments Returning Patient's Call Reason Onset Date Comments Refill Request 09/10/2023 Reason Comments FYI-No Action Needed Confirmation of Ord er DME Reason Onset Date Comments Refill Request 09/25/2023 Reason Comments extreme fluctuation of blood glucose lev els Reason Comments Bipolar Disorder Anxiety ADD/ADHD Reason Comments Nausea Reason Comments Patient Update Reason Comments Appointment [employer] Certifi cation of Illness Reason Comments Appointment Certification of Ill ness [employer] Reason Comments Patient Update [employer] Specialty Diagnoses / Procedures Referred By Contac t Referred To Contact [facility] Diagnoses Severe persistent asthma without complication Procedures SPIROMETRY - BASELINE AND POST DILATOR BRNCDILAT RSPSE SPMTRY PRE&POST-BRNCDILAT ADMNella Reynoso MD [address] [id number] [facility] [address] [place] [address] Referral ID Status Reason Start Date Expiration Date Visits Re quested Visits Authorized [id number] Closed 10/23/2023 02/17/2024 1 1 Specialty Diagnoses / Procedures Referred By Contac t Referred To Contact [facility] Diagnoses Severe persistent asthma without complication Procedures NITRIC OXIDE, EXHALED NITRIC OXIDE GAS DETERMINATION Nella Payton MD [address] [place] [address] [place] [address] Referral ID Status Reason Start Date Expiration Date Visits Re quested Visits Authorized [id number] Closed 10/23/2023 02/17/2024 1 1 Reason Comments Follow Up Reason Comments Asthma Reason Comments Insurance Authorization (DEXCOM G7 SENSO R) - Insurance Approval Reason Comments Cough Cough, chest hurts a nd asthma flare-up x 3 weeks Reason Comments Low Blood Sugar Dexcom G7 Reason Comments Follow Up Pain Established Patient Weakness Reason Comments Insurance Authorization (ZEPBOUND) 2.5 m g/0.5 mL Reason Comments Insurance Authorization Nucala PA Reason Onset Date Comments Refill Request 07/21/2024 Reason Comments Appointment Called to schedule n ew patient appointment, lvm Reason Comments FYI-No Action Needed Order confirmation for Nebulizer Reason Onset Date Comments Refill Request 08/30/2024 Scheduled Active and Recently Administ ered Medications (unrecognized section and content) Medication Order 07/27/2020 07/28/2020 07/29/2020 acetaminophen (TYLENOL) tablet 1,000 mg (COMPLETED) 1,000 mg, Oral, ONCE, On Fri07/29/20 at 2023, For 1 dose, Maximum dose of acetaminophen is 4000 mg from all sources in 24 hours. 2047 (Given - Provid er: Cecy Sanchez RN) Scheduled Medication Order 08/08/2021 08/09/2021 08/10/2021 acetaminophen (TYLENOL) tablet 1,000 mg (COMPLETED) 1,000 mg, Oral, ONCE, 1 dose, On Fri08/10/21 at 0700, Maximum dose of acetaminophen is 4000 mg from all sources in 24 hours. Do not administer if patient has taken tylenol <4 hours earlier. Do not give if contraindicated ie. patient has active liver disease or cirrhosis., Pre-op (day of surgery) 0646 (Given - Provid er: Silke Morin RN) ceFAZolin (ANCEF) 3000 mg in sodium chloride 0.9% 100 mL IVPB (COMPLETED) 3,000 mg, IntraVENous, POWER LINE LINEMAN TO O.R., 1 dose, On Fri08/10/21 at 0630, Antimicrobial Indications: Surgical Prophylaxis, Administer within 1 hour prior to incision. Recommend to repeat in 3-4 hours after initial dose if still intra-op., Pre-op (day of surgery) 0810 (Given by Other Clinician - Provider: Juan Mcintyre, POWER)0840 (Stopped - Provider: Juan Mcintyre, POWER) famotidine (PEPCID) tablet 20 mg (COMPLETED) 20 mg, Oral, ONCE, 1 dose, On Fri08/10/21 at 0700, Pre-op (day of surgery) 0646 (Given - Provid er: Silke Morin, POWER) LORazepam (ATIVAN) injection 0.5 mg 0.5 mg, IntraVENous, ONCE, 1 dose, On Fri08/10/21 at 1015, PACU only 1015 (Due) sodium chloride flush 0.9 % injection 5-40 mL 5-40 mL, IntraVENous, EVERY 12 HOURS SCHEDULED (2 times per day), First dose on Fri08/10/21 at 0900, Until Discontinued, For Line Patency: Peripheral IV = 5 mL; Midline or Central Line = 10 mL/lumen. If following IV push medication, administer flush at same rate as the IV push. Flush volume is determined by type of infusion therapy being given. For non-viscous solutions use: Peripheral IV = 5 mL Midline or Central Line = 10 mL/lumen For viscous solutions (i.e. blood components, parenteral nutrition, contrast media, or after obtaining blood sample) use: Peripheral IV = 10 mL Midline or Central Line = 20 mL/lumen, Pre-op (day of surgery) 0900 (Due)2100 (Due) sodium chloride flush 0.9 % injection 5-40 mL 5-40 mL, IntraVENous, EVERY 12 HOURS SCHEDULED (2 times per day), First dose on Fri08/10/21 at 1015, Until Discontinued, For Line Patency: Peripheral IV = 5 mL; Midline or Central Line = 10 mL/lumen. If following IV push medication, administer flush at same rate as the IV push. Flush volume is determined by type of infusion therapy being given. For non-viscous solutions use: Peripheral IV = 5 mL Midline or Central Line = 10 mL/lumen For viscous solutions (i.e. blood components, parenteral nutrition, contrast media, or after obtaining blood sample) use: Peripheral IV = 10 mL Midline or Central Line = 20 mL/lumen, PACU only 1015 (Due)2100 (Due) Continuous Medication Order 08/08/2021 08/09/2021 08/10/2021 0.9 % sodium chloride infusion IntraVENous, at 125 mL/hr, CONTINUOUS, Starting on Fri08/10/21 at 0630, Pre-op (day of surgery) 0630 (Due) lactated ringers infusion IntraVENous, at 100 mL/hr, CONTINUOUS, Starting on Fri08/10/21 at 0700, Pre-op (day of surgery) 0645 (New Bag - Prov ider: Silke Morin RN) lactated ringers infusion IntraVENous, at 50 mL/hr, CONTINUOUS, Starting on Fri08/10/21 at 1015, PACU only 1015 (Due) PRN Medication Order 08/08/2021 08/09/2021 08/10/2021 0.9 % sodium chloride bolus 500 mL (4.19 mL/kg), IntraVENous, at 1,000 mL/hr, Administer over 0.5 Hours, PRN, Anti-nausea, Starting on Fri08/10/21 at 0949, PACU only 0.9 % sodium chloride infusion IntraVENous, at 5-250 mL/hr, PRN, if patient receiving piggyback infusions and maintenance fluids are not ordered OR KVO fluids to protect IV site / prevent frequent line interruptions/ long duration, Starting on Fri08/10/21 at 0613, For piggyback infusion, administer at same rate as piggyback for a total of 25 mL. Enter 25 mL into dose field and piggyback rate into rate field of order. If piggyback is infusing at a rate less than 100 mL/hr, enter 25 mL into dose field and 100 mL/hr into rate field of order. For KVO fluids, enter rate of 20 mL/hr or less into rate field of order., Pre-op (day of surgery) 0.9 % sodium chloride infusion IntraVENous, at 5-250 mL/hr, PRN, if patient receiving piggyback infusions and maintenance fluids are not ordered OR KVO fluids to protect IV site / prevent frequent line interruptions/ long duration, Starting on Fri08/10/21 at 0645, For piggyback infusion, administer at same rate as piggyback for a total of 25 mL. Enter 25 mL into dose field and piggyback rate into rate field of order. If piggyback is infusing at a rate less than 100 mL/hr, enter 25 mL into dose field and 100 mL/hr into rate field of order. For KVO fluids, enter rate of 20 mL/hr or less into rate field of order., Pre-op (day of surgery) diphenhydrAMINE (BENADRYL) injection 12.5 mg 12.5 mg, IntraVENous, ONCE PRN, 1 dose, Starting on Fri08/10/21 at 0949, Until Fri08/10/21 at 2359, Itching, PACU only hydrALAZINE (APRESOLINE) injection 5 mg(Linked Group 1) 5 mg, IntraVENous, EVERY 10 MIN PRN, 2 doses, Starting on Fri08/10/21 at 0949, Until Discontinued, High Blood Pressure, for SBP greater than 160 mmHg for 2 consecutive measurements taken from different sites, PRN for SBP > 160 for 2 consecutive measurements, and if one of the following conditions is met: 1) If IV labetolol is ineffective. 2) If HR is under 60. 3) If patient has heart block, COPD or asthma. If both labetalol and hydralazine ineffective, notify anesthesiologist. for use Sameday and, PACU only HYDROmorphone (DILAUDID) injection 0.25 mg 0.25 mg, IntraVENous, EVERY 5 MIN PRN, 4 doses, Starting on Fri08/10/21 at 0949, Until Discontinued, Pain Moderate (4-6), Phase I and Phase II- Initial therapy for moderate pain (4-6). Restricted to a 90 minute time frame starting when the patient can verbally state their pain score. If oral meds are utilized, do not return to initial therapy medications. SDS and, PACU only HYDROmorphone (DILAUDID) injection 0.5 mg 0.5 mg, IntraVENous, EVERY 5 MIN PRN, 4 doses, Starting on Fri08/10/21 at 0949, Until Discontinued, Pain Severe (7-10), Phase I or Phase II- Initial therapy for severe pain (7-10). Restricted to a 90 minute time frame starting when the patient can verbally state their pain score. If oral meds are utilized, do not return to initial therapy medications. SDS and, PACU only labetalol (NORMODYNE;TRANDATE) injection 5 mg(Linked Group 1) 5 mg, IntraVENous, EVERY 10 MIN PRN, 2 doses, Starting on Fri08/10/21 at 0949, Until Discontinued, High Blood Pressure, for SBP greater than 160 mmHg for 2 consecutive measurements taken from different sites., PRN for SBP >160 for 2 consecutive measurements, if HR is 60 or greater. If beta alyssa is contraindicated (HR less than 60, heart block, COPD or asthma) use hydralazine IV order. for use Sameday and, PACU only lidocaine PF 1 % injection 1 mL 1 mL, IntraDERmal, ONCE PRN, 1 dose, Starting on Fri08/10/21 at 0645, Until Fri08/10/21 at 2359, IV start, Pre-op (day of surgery) meperidine (DEMEROL) injection 12.5 mg 12.5 mg, IntraVENous, EVERY 5 MIN PRN, 4 doses, Starting on Fri08/10/21 at 0949, Until Discontinued, Shivering, , May give every 5 minutes to max of 50mg., PACU only ondansetron (ZOFRAN) injection 4 mg 4 mg, IntraVENous, ONCE PRN, 1 dose, Starting on Fri08/10/21 at 0949, Until Fri08/10/21 at 2359, Nausea, Initial antiemetic therapy., PACU only oxyCODONE (ROXICODONE) immediate release tablet 10 mg(Linked Group 2) 10 mg, Oral, PRN, 1 dose, Starting on Fri08/10/21 at 0949, Until Fri08/10/21 at 2359, Pain Severe (7-10), PHASE II, PACU only oxyCODONE (ROXICODONE) immediate release tablet 5 mg(Linked Group 2) 5 mg, Oral, PRN, 1 dose, Starting on Fri08/10/21 at 0949, Until Fri08/10/21 at 2359, Pain Moderate (4-6), PHASE II, PACU only sodium chloride flush 0.9 % injection 5-40 mL 5-40 mL, IntraVENous, PRN, Starting on Fri08/10/21 at 0613, Until Discontinued, Line Care, After every IV line use, For Line Patency: Peripheral IV = 5 mL; Midline or Central Line = 10 mL/lumen. If following IV push medication, administer flush at same rate as the IV push. Flush volume is determined by type of infusion therapy being given. For non-viscous solutions use: Peripheral IV = 5 mL Midline or Central Line = 10 mL/lumen For viscous solutions (i.e. blood components, parenteral nutrition, contrast media, or after obtaining blood sample) use: Peripheral IV = 10 mL Midline or Central Line = 20 mL/lumen, Pre-op (day of surgery) sodium chloride flush 0.9 % injection 5-40 mL 5-40 mL, IntraVENous, PRN, Starting on Fri08/10/21 at 0645, Until Discontinued, Line Care, After every IV line use, For Line Patency: Peripheral IV = 5 mL; Midline or Central Line = 10 mL/lumen. If following IV push medication, administer flush at same rate as the IV push. Flush volume is determined by type of infusion therapy being given. For non-viscous solutions use: Peripheral IV = 5 mL Midline or Central Line = 10 mL/lumen For viscous solutions (i.e. blood components, parenteral nutrition, contrast media, or after obtaining blood sample) use: Peripheral IV = 10 mL Midline or Central Line = 20 mL/lumen, Pre-op (day of surgery) sodium chloride flush 0.9 % injection 5-40 mL 5-40 mL, IntraVENous, PRN, Starting on Fri08/10/21 at 0949, Until Discontinued, Line Care, After every IV line use, For Line Patency: Peripheral IV = 5 mL; Midline or Central Line = 10 mL/lumen. If following IV push medication, administer flush at same rate as the IV push. Flush volume is determined by type of infusion therapy being given. For non-viscous solutions use: Peripheral IV = 5 mL Midline or Central Line = 10 mL/lumen For viscous solutions (i.e. blood components, parenteral nutrition, contrast media, or after obtaining blood sample) use: Peripheral IV = 10 mL Midline or Central Line = 20 mL/lumen, PACU only Linked Groups Order Group 1: labetalol (NORMODYNE;TRANDATE) injection 5 mgJump to med 5 mg, IntraVENous, EVERY 10 MIN PRN, 2 doses, Starting on Fri08/10/21 at 0949, Until Discontinued, High Blood Pressure, for SBP greater than 160 mmHg for 2 consecutive measurements taken from different sites.
PRN for SBP >160 for 2 consecutive measurements, if HR is 60 or greater. If beta alyssa is contraindicated (HR less than 60, heart block, COPD or asthma) use hydralazine IV order. for use Sameday and
PACU only Or hydrALAZINE (APRESOLINE) injection 5 mgJump to med 5 mg, IntraVENous, EVERY 10 MIN PRN, 2 doses, Starting on Fri08/10/21 at 0949, Until Discontinued, High Blood Pressure, for SBP greater than 160 mmHg for 2 consecutive measurements taken from different sites
PRN for SBP > 160 for 2 consecutive measurements, and if one of the following conditions is met: 1) If IV labetolol is ineffective. 2) If HR is under 60. 3) If patient has heart block, COPD or asthma. If both labetalol and hydralazine ineffective, notify anesthesiologist. for use Sameday and
PACU only Group 2: oxyCODONE (ROXICODONE) immediate release tablet 5 mgJump to med 5 mg, Oral, PRN, 1 dose, Starting on Fri08/10/21 at 0949, Until Fri08/10/21 at 2359, Pain Moderate (4-6)
PHASE II
PACU only Or oxyCODONE (ROXICODONE) immediate release tablet 10 mgJump to med 10 mg, Oral, PRN, 1 dose, Starting on Fri08/10/21 at 0949, Until Fri08/10/21 at 2359, Pain Severe (7-10)
PHASE II
PACU only Scheduled Medication Order 03/09/2022 03/10/2022 03/11/2022 albuterol (2.5 MG/3ML) 0.083% nebulizer solution 2.5 mg (COMPLETED) 2.5 mg, Nebulization, Once, On Fri03/11/22 at 1525, For 1 dose, Initiate RT Bronchodilator Protocol? No 1539 (Given - Provid er: Nancy Dunlap RN) albuterol (2.5 MG/3ML) 0.083% nebulizer solution 2.5 mg (COMPLETED) 2.5 mg, Nebulization, Once, On Fri03/11/22 at 1530, For 1 dose, Initiate RT Bronchodilator Protocol? No 1530 (Given - Provid er: Nancy Dunlap RN) albuterol (2.5 MG/3ML) 0.083% nebulizer solution 2.5 mg (COMPLETED) 2.5 mg, Nebulization, Once, On Fri03/11/22 at 1600, For 1 dose, Initiate RT Bronchodilator Protocol? No 1600 (Given - Provid er: Nancy Dunlap RN) albuterol (2.5 MG/3ML) 0.083% nebulizer solution 2.5 mg (COMPLETED) 2.5 mg, Nebulization, Once, On Fri03/11/22 at 1700, For 1 dose, Initiate RT Bronchodilator Protocol? No 1649 (Given - Provid er: Nancy Dunlap RN) albuterol (2.5 MG/3ML) 0.083% nebulizer solution 2.5 mg (COMPLETED) 2.5 mg, Nebulization, Once, On Fri03/11/22 at 1800, For 1 dose, Initiate RT Bronchodilator Protocol? No 1825 (Given - Provid er: Nancy Dunlap RN) predniSONE (Deltasone) tablet 60 mg (COMPLETED) 60 mg, Oral, Once, On Fri03/11/22 at 1515, For 1 dose 1539 (Given - Provid er: Nancy Dunlap RN) Ordered Prescriptions (unrec ognized section and content) Prescription Sig Dispensed Refills Start Date End Da te oxyCODONE-acetaminophen (PERCOCET) 7.5-325 MG per tabletIndications:Status post right foot surgery Take 1 tablet by mouth every 6 hours as needed for Pain for up to 7 days. 25 tablet 0 08/10/2021 08/17/2021 cefadroxil (DURICEF) 500 MG capsule Take 1 capsule by mouth 2 times daily for 7 days 14 capsule 0 08/10/2021 08/17/2021 Care Teams (unrecognized sec tion and content) Parts Sales Representative Relationship Specialty Start Date End Date Radha Riojas MD [address] [place] [address], [facility] [place], [place] [id number] PCP - General Family Medicine 10/10/14 Parts Sales Representative Relationship Specialty Start Date End Date (Historical), Unknown PCP - General 08/06/16 Parts Sales Representative Relationship Specialty Start Date End Date (Historical), Unknown PCP - General 08/06/16 Parts Sales Representative Relationship Specialty Start Date End Date (Historical), Unknown PCP - General 08/06/16 Parts Sales Representative Relationship Specialty Start Date End Date (Historical), Unknown PCP - General 08/06/16 Parts Sales Representative Relationship Specialty Start Date End Date Donald Snowden DO [address] [place] [address] PCP - General Family Medicine 04/26/22 Parts Sales Representative Relationship Specialty Start Date End Date Donald Snowden DO [address] [place] [address] PCP - General Family Medicine 04/26/22 Parts Sales Representative Relationship Specialty Start Date End Date Donald Snowden DO [address] [place] [address] PCP - General Family Medicine 04/26/22 Parts Sales Representative Relationship Specialty Start Date End Date Donald Snowden DO [address] [place] [address] PCP - General Family Medicine 04/26/22 Parts Sales Representative Relationship Specialty Start Date End Date Donald Snowden DO [address] [place] [address] PCP - General Family Medicine 04/26/22 Parts Sales Representative Relationship Specialty Start Date End Date Donald Snowden DO [address] [place] [address] PCP - General Family Medicine 04/26/22 Parts Sales Representative Relationship Specialty Start Date End Date Donald Snowden DO [address] [place] [address] PCP - General Family Medicine 04/26/22 Parts Sales Representative Relationship Specialty Start Date End Date Donald Snowden DO [address] [place] [address] PCP - General Family Medicine 04/26/22 Parts Sales Representative Relationship Specialty Start Date End Date Donald Snowden DO [address] [place] [address] PCP - General Family Medicine 04/26/22 Parts Sales Representative Relationship Specialty Start Date End Date Donald Snowden DO [address] [place] [address] PCP - General Family Medicine 04/26/22 Parts Sales Representative Relationship Specialty Start Date End Date Donald Snowden DO [address] [place] [address] PCP - General Family Medicine 04/26/22 Parts Sales Representative Relationship Specialty Start Date End Date Donald Snowden DO [address] [place] [address] PCP - General Family Medicine 04/26/22 Parts Sales Representative Relationship Specialty Start Date End Date Donald Snowden DO [address] [place] [address] PCP - General Family Medicine 04/26/22 Parts Sales Representative Relationship Specialty Start Date End Date Donald Snowden DO [address] [place] [address] PCP - General Family Medicine 04/26/22 Parts Sales Representative Relationship Specialty Start Date End Date Donald Snowden DO [address] [place] [address] PCP - General Family Medicine 04/26/22 Parts Sales Representative Relationship Specialty Start Date End Date Donald Snowden DO [address] [place] [address] PCP - General Family Medicine 04/26/22 Parts Sales Representative Relationship Specialty Start Date End Date Donald Snowden DO [address] [place] [address] PCP - General Family Medicine 04/26/22 Parts Sales Representative Relationship Specialty Start Date End Date Donald Snowden DO [address] [place] [address] PCP - General Family Medicine 04/26/22 Parts Sales Representative Relationship Specialty Start Date End Date Donald Snowden DO [address] [place] [address] PCP - General Family Medicine 04/26/22 Parts Sales Representative Relationship Specialty Start Date End Date (Historical), Unknown PCP - General 08/06/16 04/25/22 Parts Sales Representative Relationship Specialty Start Date End Date Donald Snowden DO [address] [place] [address] PCP - General Family Medicine 04/26/22 Parts Sales Representative Relationship Specialty Start Date End Date Donald Snowden DO [address] [place] [address] PCP - General Family Medicine 04/26/22 Parts Sales Representative Relationship Specialty Start Date End Date Donald Snowden DO [address] [place] [address] PCP - General Family Medicine 04/26/22 Parts Sales Representative Relationship Specialty Start Date End Date Donald Snowden DO [address] [place] [address] PCP - General Family Medicine 04/26/22 Parts Sales Representative Relationship Specialty Start Date End Date Donald Snowden DO [address] [place] [address] PCP - General Family Medicine 04/26/22 Parts Sales Representative Relationship Specialty Start Date End Date Donald Snowden DO [address] [place] [address] PCP - General Family Medicine 04/26/22 Parts Sales Representative Relationship Specialty Start Date End Date Donald Snowden DO [address] [place] [address] PCP - General Family Medicine 04/26/22 Parts Sales Representative Relationship Specialty Start Date End Date Donald Snowden DO [address] [place] [address] PCP - General Family Medicine 04/26/22 Parts Sales Representative Relationship Specialty Start Date End Date Donald Snowden DO [address] [place] [address] PCP - General Family Medicine 04/26/22 Akhil Le, training administrator Technical Solutions Director 04/14/23 Parts Sales Representative Relationship Specialty Start Date End Date Donald Snowden DO [address] [place] [address] PCP - General Family Medicine 04/26/22 Akhil Le, training administrator Technical Solutions Director 04/14/23 Parts Sales Representative Relationship Specialty Start Date End Date Donald Snowden DO [address] [place] [address] PCP - General Family Medicine 04/26/22 Akhil Le, training administrator Technical Solutions Director 04/14/23 Parts Sales Representative Relationship Specialty Start Date End Date Donald Snowden DO [address] [place] [address] PCP - General Family Medicine 04/26/22 Akhil Le, training administrator Technical Solutions Director 04/14/[id number] [place] [address] Nutrition 04/17/23 Parts Sales Representative Relationship Specialty Start Date End Date Donald Snowden DO [address] [place] [address] PCP - General Family Medicine 04/26/22 Akhil Le, training administrator Technical Solutions Director 04/14/[id number] [place] [address] Nutrition 04/17/23 Parts Sales Representative Relationship Specialty Start Date End Date Donald Snowden DO [address] [place] [address] PCP - General Family Medicine 04/26/22 Akhil Le, training administrator Technical Solutions Director 04/14/23 Mera Varela, [address]EX [address] [place] [address] Nutrition 04/17/23 Parts Sales Representative Relationship Specialty Start Date End Date Donald Snowden DO [address] [place] [address] PCP - General Family Medicine 04/26/22 Akhil Le, training administrator Technical Solutions Director 04/14/23 Mera Varela, LEX [id number] [place] [address] Nutrition 04/17/23 Parts Sales Representative Relationship Specialty Start Date End Date Donald Snowden DO [address] [place] [address] PCP - General Family Medicine 04/26/22 Akhil Le, training administrator Technical Solutions Director 04/14/[address] [place] [address] [place] [address] Nutrition 04/17/23 Parts Sales Representative Relationship Specialty Start Date End Date Donald Snowden DO [address] [place] [address] PCP - General Family Medicine 04/26/22 Akhil Le training administrator Technical Solutions Director 04/14/[address] [place] [address] [place] [address] Nutrition 04/17/23 Parts Sales Representative Relationship Specialty Start Date End Date Donald Snowden DO [address] [place] [address] PCP - General Family Medicine 04/26/22 Akhil Le, training administrator Technical Solutions Director 04/14/[address] [place] [address] [place] [address] Nutrition 04/17/23 Parts Sales Representative Relationship Specialty Start Date End Date Donald Snowden DO [address] [place] [address] PCP - General Family Medicine 04/26/22 Akhil Le, training administrator Technical Solutions Director 04/14/[address] [place] [address] [place] [address] Nutrition 04/17/23 Parts Sales Representative Relationship Specialty Start Date End Date Donald Snowden DO [address] [place] [address] PCP - General Family Medicine 04/26/[address] [place] [address] [place] [address] Nutrition 04/17/23 Parts Sales Representative Relationship Specialty Start Date End Date Donald Snowedn DO [address] [place] [address] PCP - General Family Medicine 04/26/[id number] [place] [address] Nutrition 04/17/23 Parts Sales Representative Relationship Specialty Start Date End Date Donald Snowden DO [address] [place] [address] PCP - General Family Medicine 04/26/[address] [place] [address] [place] [address] Nutrition 04/17/23 Parts Sales Representative Relationship Specialty Start Date End Date Donald Snowden DO [address] [place] [address] PCP - General Family Medicine 04/26/[id number] [place] [address] Nutrition 04/17/23 Parts Sales Representative Relationship Specialty Start Date End Date Donald Snowden DO [address] [place] [address] PCP - General Family Medicine 04/26/[address] [place] [address] Nutrition 04/17/23 Parts Sales Representative Relationship Specialty Start Date End Date Donald Snowden DO [address] [place] [address] PCP - General Family Medicine 04/26/[address] [place] [address] Nutrition 04/17/23 Parts Sales Representative Relationship Specialty Start Date End Date Donald Snowden DO [address] [place] [address] PCP - General Family Medicine 04/26/[address] [place] [address] Nutrition 04/17/23 Parts Sales Representative Relationship Specialty Start Date End Date Donald Snowden DO [address] [place] [address] PCP - General Family Medicine 04/26/[address] [place] [address] Nutrition 04/17/23 Parts Sales Representative Relationship Specialty Start Date End Date Donald Snowden DO [address] [place] [address] PCP - General Family Medicine 04/26/[address] [place] [address] [place] [address] Nutrition 04/17/23 Parts Sales Representative Relationship Specialty Start Date End Date Donald Snowden DO [address] [place] [address] PCP - General Family Medicine 04/26/[address] [place] [address] [place] [address] Nutrition 04/17/23 Parts Sales Representative Relationship Specialty Start Date End Date Donald Snowden DO [address] [place] [address] PCP - General Family Medicine 04/26/[address] [place] [address] [place] [address] Nutrition 04/17/23 Parts Sales Representative Relationship Specialty Start Date End Date Donald Snowden DO [address] [place] [address] PCP - General Family Medicine 04/26/[address] [place] [address] [place] [address] Nutrition 04/17/23 Parts Sales Representative Relationship Specialty Start Date End Date Donald Snowden DO [address] [place] [address] PCP - General Family Medicine 04/26/[address] [place] [address] [place] [address] Nutrition 04/17/23 Parts Sales Representative Relationship Specialty Start Date End Date Donald Snowden DO [address] [place] [address] PCP - General Family Medicine 04/26/[address] [place] [address] [place] [address] Nutrition 04/17/23 Parts Sales Representative Relationship Specialty Start Date End Date Donald Snowden DO [address] [place] [address] PCP - General Family Medicine 04/26/[address] [place] [address] [place] [address] Nutrition 04/17/23 Parts Sales Representative Relationship Specialty Start Date End Date Donald Snowden DO [address] [place] [address] PCP - General Family Medicine 04/26/[address] [place] [address] [place] [address] Nutrition 04/17/23 Parts Sales Representative Relationship Specialty Start Date End Date Donald Snowden DO [address] [place] [address] PCP - General Family Medicine 04/26/[address] [place] [address] [place] [address] Nutrition 04/17/23 Parts Sales Representative Relationship Specialty Start Date End Date Donald Snowden DO [address] [place] [address] PCP - General Family Medicine 04/26/[address] [place] [address] [place] [address] Nutrition 04/17/23 Parts Sales Representative Relationship Specialty Start Date End Date [place] Snowden [place] [address] [address] PCP - General Family Medicine 04/26/[address] [place] [address] [place] [address] Nutrition 04/17/23 Parts Sales Representative Relationship Specialty Start Date End Date Donald Snowden DO [address] [place] [address] PCP - General Family Medicine 04/26/[address] [place] [address] [place] [address] Nutrition 04/17/23 Parts Sales Representative Relationship Specialty Start Date End Date Donald Snowden DO [address] [place] [address] PCP - General Family Medicine 04/26/[address] [place] [address] [place] [address] Nutrition 04/17/23 Parts Sales Representative Relationship Specialty Start Date End Date Donald Snowden DO [address] [place] [address] PCP - General Family Medicine 04/26/[address] [place] [address] [place] [address] Nutrition 04/17/23 Parts Sales Representative Relationship Specialty Start Date End Date Donald Snowden DO [address] [place] [address] PCP - General Family Medicine 04/26/[address] [place] [address] Nutrition 04/17/23 Parts Sales Representative Relationship Specialty Start Date End Date Donald Snowden DO [address] [place] [address] PCP - General Family Medicine 04/26/[address] [place] [address] [place] [address] Nutrition 04/17/23 Parts Sales Representative Relationship Specialty Start Date End Date Donald Snowden DO [address] [place] [address] PCP - General Family Medicine 04/26/[address] [place], [place] [address] Nutrition 04/17/23 Robson Zuniga MD [address] [place] [address] Pulmonary and Critical Care Medicine 09/29/23 Parts Sales Representative Relationship Specialty Start Date End Date Donald Snowden DO [address] [place] [address] PCP - General Family Medicine 04/26/[address] [place] [address] [place] [address] Nutrition 04/17/23 Robson Zuniga MD [address] [place] [address] Pulmonary and Critical Care Medicine 09/29/23 Parts Sales Representative Relationship Specialty Start Date End Date Donald Snowden DO [address] [place] [address] PCP - General Family Medicine 04/26/[address] [place] [address] [place] [address] Nutrition 04/17/23 Robson Zuniga MD [address] [place] [address] Pulmonary and Critical Care Medicine 09/29/23 Parts Sales Representative Relationship Specialty Start Date End Date Donald Snowden DO [address] [place] [address] PCP - General Family Medicine 04/26/[address] [place] [address] [place] [address] Nutrition 04/17/23 Robson Zuniga MD [address] [place] [address]25 Pulmonary and Critical Care Medicine 09/29/23 Parts Sales Representative Relationship Specialty Start Date End Date Donald Snowden DO [address] [place] [address] PCP - General Family Medicine 04/26/[address] [place] [address] [address] [place] [address] Nutrition 04/17/23 Robson Zuniga MD [address] [place] [address] Pulmonary and Critical Care Medicine 09/29/23 Parts Sales Representative Relationship Specialty Start Date End Date Donald Snowden DO [address] [place] [address] PCP - General Family Medicine 04/26/[address] [place] [address] [address] [place] [address] Nutrition 04/17/23 Robson Zuniga MD [address] [place] [address]00 Pulmonary and Critical Care Medicine 09/29/23 Parts Sales Representative Relationship Specialty Start Date End Date Donald Snowden DO [address] [place] [address] PCP - General Family Medicine 04/26/[address] [place] [address] [place] [address] Nutrition 04/17/23 Robson Zuniga MD [address] [place] [address] Pulmonary and Critical Care Medicine 09/29/23 Parts Sales Representative Relationship Specialty Start Date End Date Jhon DO Donald [address] [place] [address] PCP - General Family Medicine 04/26/[address] [place] [address] [place] [address] Nutrition 04/17/23 Robson Zuniga MD [address] [place] [address] Pulmonary and Critical Care Medicine 09/29/23 Parts Sales Representative Relationship Specialty Start Date End Date Donald Snowden DO [address] [address] PCP - General Family Medicine 04/26/[address] [place] [address] [place] [address] Nutrition 04/17/23 Robson Zuniga MD [address] [place] [address]83 Pulmonary and Critical Care Medicine 09/29/23 Parts Sales Representative Relationship Specialty Start Date End Date Donald Snowden DO [address] [place] [address] PCP - General Family Medicine 04/26/[address] [place] [address] [place] [address] Nutrition 04/17/23 Robson Zuniga MD [address] [place] [address]89 Pulmonary and Critical Care Medicine 09/29/23 Parts Sales Representative Relationship Specialty Start Date End Date Donald Snowden DO [address] [place] [address] PCP - General Family Medicine 04/26/[address] [place] [address] [place] [address] Nutrition 04/17/23 Robson Zuniga MD [address] [place] [address]85 Pulmonary and Critical Care Medicine 09/29/23 Parts Sales Representative Relationship Specialty Start Date End Date NikDonald cueto DO [address] [place] [address] PCP - General Family Medicine 04/26/[address] [place] [address] [address] [place] [address] Nutrition 04/17/23 Robson Zuniga MD [address] [place] [address]33 Pulmonary and Critical Care Medicine 09/29/23 Parts Sales Representative Relationship Specialty Start Date [place] [address] [place] [id number] PCP - General 08/03/21 Parts Sales Representative Relationship Specialty Start Date End Date [place] [address] PCP - General 08/03/21 Parts Sales Representative Relationship Specialty Start Date [place] [address] PCP - General 08/03/21 Parts Sales Representative Relationship Specialty Start Date End Date Donald Snowden [address] [place] [address] PCP - General Family Medicine 04/26/[address] [place] [address] [place] [address] Nutrition 04/17/23 Robson Zuniga MD [address] [address] Pulmonary and Critical Care Medicine 09/29/23 Krystle Espinoza APRN.ACCOUNTS PAYABLE ASSOCIATE [address] [place] [address] 705301 [facility] 01/25/24 Parts Sales Representative Relationship Specialty Start Date End Date Donald Snowden DO [address] [place] [address] PCP - General Family Medicine 04/26/[address] [place] [address] [place] [address] Nutrition 04/17/23 Robson Zuniga MD [address] [place] [address] [phone] Pulmonary and Critical Care Medicine 09/29/23 Krystle Espinoza, GOLF PLAYER ASSISTANT.ACCOUNTS PAYABLE ASSOCIATE [address] [place] [address] [facility] [employer] 01/25/24 Parts Sales Representative Relationship Specialty Start Date End Date Donald Snowden DO [address] [place] [address] PCP - General Family Medicine 04/26/[address] [place] [address] [address] [place] [address] Nutrition 04/17/23 Robson Zuniga MD [address] [place] [address] Pulmonary and Critical Care Medicine 09/29/23 Krystle Espinoza, GOLF PLAYER ASSISTANT.ACCOUNTS PAYABLE ASSOCIATE [address] [place] [address] [employer] [facility] 01/25/24 Parts Sales Representative Relationship Specialty Start Date End Date Donald Snowden DO [address] [address] PCP - General Family Medicine 04/26/[address] [place] [address] [place] [address] Nutrition 04/17/23 Robson Zuniga MD [address] [place] [address] Pulmonary and Critical Care Medicine 09/29/23 Krystle Espinoza APRN.ACCOUNTS PAYABLE ASSOCIATE [address] [place] [address] [facility] 01/25/24 Parts Sales Representative Relationship Specialty Start Date End Date Doanld Snowden DO [address] [place] [address] PCP - General Family Medicine 04/26/[address] [place] [address] [place] [address] Nutrition 04/17/23 Robson Zuniga MD [address] [address] Pulmonary and Critical Care Medicine 09/29/23 Krystle Espinoza APRN.ACCOUNTS PAYABLE ASSOCIATE [address] [place] [address] [employer] [facility] 01/25/24 Parts Sales Representative Relationship Specialty Start Date End Date Donald Snowden DO [address] [address] PCP - General Family Medicine 04/26/[address] [place] [address] [place] [address] Nutrition 04/17/23 Robson Zuniga MD [address] [place] [address]79 Pulmonary and Critical Care Medicine 09/29/23 Krystle Espinoza APRN.ACCOUNTS PAYABLE ASSOCIATE [address] [place], [place] [address] [facility] 01/[facility] Parts Sales Representative Relationship Specialty Start Date End Date Donald Snowden DO [address] [place], [place] [address] PCP - General Family Medicine 04/26/[address] [place] [address] [place] [address] Nutrition 04/17/23 Rosbon Zuniga MD [address] [place], [place] [id number] Pulmonary and Critical Care Medicine 09/29/23 Krystle Espinoza, GOLF PLAYER ASSISTANT.ACCOUNTS PAYABLE ASSOCIATE [address] [place] [address] [facility] 01/25/24 Parts Sales Representative Relationship Specialty Start Date End Date Donald Snowden DO [address] [place] [address] PCP - General Family Medicine 04/26/[address] [place] [address] [place] [address] Nutrition 04/17/23 Robosn Zuniga MD [address] [place] [address] Pulmonary and Critical Care Medicine 09/29/23 Krystle Espinoza APRN.ACCOUNTS PAYABLE ASSOCIATE [address] [place] [address] [facility] 01/25/24 Parts Sales Representative Relationship Specialty Start Date End Date Donald Snowden DO [address] [place] [address] PCP - General Family Medicine 04/26/[address] [place] [address] [place] [address] Nutrition 04/17/23 Robson Zuniga MD [address] [place] [address] Pulmonary and Critical Care Medicine 09/29/23 Krystle Espinoza, GOLF PLAYER ASSISTANT.ACCOUNTS PAYABLE ASSOCIATE [address] [place] [address] [facility] 01/25/24 Parts Sales Representative Relationship Specialty Start Date End Date NikDonald cueto DO [address] [place] [address] PCP - General Family Medicine 04/26/[address] [place] [address] [place] [address] Nutrition 04/17/23 Robson Zuniga MD [address] [place] [address] Pulmonary and Critical Care Medicine 09/29/23 Krystle Espinoza GOLF PLAYER ASSISTANT.ACCOUNTS PAYABLE ASSOCIATE [address] [place] [address] [employer] [facility] 01/25/24 Parts Sales Representative Relationship Specialty Start Date End Date Donald Snowden DO [address] [place] [address] PCP - General Family Medicine 04/26/[address] [address] [place] [address] Nutrition 04/17/23 Robson Zuniga MD [address] [place] [id number] Pulmonary and Critical Care Medicine 09/29/23 Krystle Espinoza APRN.SHEN [address] [place] [id number] [employer] [facility] 01/25/24 Source Comments (unrecognize d section and content) In the event this informatio n is protected by the Federal Confidentiality of Alcohol and Drug Abuse Patient Records regulations: The Federal rules restrict any use of the information to criminally investigate or prosecute any alcohol or drug abuse patient.[facility]In the event this information is protected by the Federal Confidentiality of Alcohol and Drug Abuse Patient Records regulations: The Federal rules restrict any use of the information to criminally investigate or prosecute any alcohol or drug abuse patient.[facility] HospitalIn the event this information is protected by the Federal Confidentiality of Alcohol and Drug Abuse Patient Records regulations: The Federal rules restrict any use of the information to criminally investigate or prosecute any alcohol or drug abuse patient.[facility]In the event this information is protected by the Federal Confidentiality of Alcohol and Drug Abuse Patient Records regulations: The Federal rules restrict any use of the information to criminally investigate or prosecute any alcohol or drug abuse patient.[facility] HospitalIn the event this information is protected by the Federal Confidentiality of Alcohol and Drug Abuse Patient Records regulations: The Federal rules restrict any use of the information to criminally investigate or prosecute any alcohol or drug abuse patient.[facility] HospitalIn the event this information is protected by the Federal Confidentiality of Alcohol and Drug Abuse Patient Records regulations: The Federal rules restrict any use of the information to criminally investigate or prosecute any alcohol or drug abuse patient.[facility] HospitalIn the event this information is protected by the Federal Confidentiality of Alcohol and Drug Abuse Patient Records regulations: The Federal rules restrict any use of the information to criminally investigate or prosecute any alcohol or drug abuse patient.[facility] HospitalIn the event this information is protected by the Federal Confidentiality of Alcohol and Drug Abuse Patient Records regulations: The Federal rules restrict any use of the information to criminally investigate or prosecute any alcohol or drug abuse patient.[facility]In the event this information is protected by the Federal Confidentiality of Alcohol and Drug Abuse Patient Records regulations: The Federal rules restrict any use of the information to criminally investigate or prosecute any alcohol or drug abuse patient.[facility] HospitalIn the event this information is protected by the Federal Confidentiality of Alcohol and Drug Abuse Patient Records regulations: The Federal rules restrict any use of the information to criminally investigate or prosecute any alcohol or drug abuse patient.[facility] HospitalIn the event this information is protected by the Federal Confidentiality of Alcohol and Drug Abuse Patient Records regulations: The Federal rules restrict any use of the information to criminally investigate or prosecute any alcohol or drug abuse patient.[facility] HospitalIn the event this information is protected by the Federal Confidentiality of Alcohol and Drug Abuse Patient Records regulations: The Federal rules restrict any use of the information to criminally investigate or prosecute any alcohol or drug abuse patient.[facility] HospitalIn the event this information is protected by the Federal Confidentiality of Alcohol and Drug Abuse Patient Records regulations: The Federal rules restrict any use of the information to criminally investigate or prosecute any alcohol or drug abuse patient.[facility] HospitalIn the event this information is protected by the Federal Confidentiality of Alcohol and Drug Abuse Patient Records regulations: The Federal rules restrict any use of the information to criminally investigate or prosecute any alcohol or drug abuse patient.[facility] HospitalIn the event this information is protected by the Federal Confidentiality of Alcohol and Drug Abuse Patient Records regulations: The Federal rules restrict any use of the information to criminally investigate or prosecute any alcohol or drug abuse patient.[facility] HospitalIn the event this information is protected by the Federal Confidentiality of Alcohol and Drug Abuse Patient Records regulations: The Federal rules restrict any use of the information to criminally investigate or prosecute any alcohol or drug abuse patient.[facility] HospitalIn the event this information is protected by the Federal Confidentiality of Alcohol and Drug Abuse Patient Records regulations: The Federal rules restrict any use of the information to criminally investigate or prosecute any alcohol or drug abuse patient.[facility] HospitalIn the event this information is protected by the Federal Confidentiality of Alcohol and Drug Abuse Patient Records regulations: The Federal rules restrict any use of the information to criminally investigate or prosecute any alcohol or drug abuse patient.[facility] HospitalIn the event this information is protected by the Federal Confidentiality of Alcohol and Drug Abuse Patient Records regulations: The Federal rules restrict any use of the information to criminally investigate or prosecute any alcohol or drug abuse patient.[facility] HospitalIn the event this information is protected by the Federal Confidentiality of Alcohol and Drug Abuse Patient Records regulations: The Federal rules restrict any use of the information to criminally investigate or prosecute any alcohol or drug abuse patient.[facility] HospitalIn the event this information is protected by the Federal Confidentiality of Alcohol and Drug Abuse Patient Records regulations: The Federal rules restrict any use of the information to criminally investigate or prosecute any alcohol or drug abuse patient.[facility] HospitalIn the event this information is protected by the Federal Confidentiality of Alcohol and Drug Abuse Patient Records regulations: The Federal rules restrict any use of the information to criminally investigate or prosecute any alcohol or drug abuse patient.[facility] the event this information is protected by the Federal Confidentiality of Alcohol and Drug Abuse Patient Records regulations: The Federal rules restrict any use of the information to criminally investigate or prosecute any alcohol or drug abuse patient.[facility] HospitalIn the event this information is protected by the Federal Confidentiality of Alcohol and Drug Abuse Patient Records regulations: The Federal rules restrict any use of the information to criminally investigate or prosecute any alcohol or drug abuse patient.[facility] HospitalIn the event this information is protected by the Federal Confidentiality of Alcohol and Drug Abuse Patient Records regulations: The Federal rules restrict any use of the information to criminally investigate or prosecute any alcohol or drug abuse patient.[facility] HospitalIn the event this information is protected by the Federal Confidentiality of Alcohol and Drug Abuse Patient Records regulations: The Federal rules restrict any use of the information to criminally investigate or prosecute any alcohol or drug abuse patient.[facility] HospitalIn the event this information is protected by the Federal Confidentiality of Alcohol and Drug Abuse Patient Records regulations: The Federal rules restrict any use of the information to criminally investigate or prosecute any alcohol or drug abuse patient.[facility] HospitalIn the event this information is protected by the Federal Confidentiality of Alcohol and Drug Abuse Patient Records regulations: The Federal rules restrict any use of the information to criminally investigate or prosecute any alcohol or drug abuse patient.[facility] HospitalIn the event this information is protected by the Federal Confidentiality of Alcohol and Drug Abuse Patient Records regulations: The Federal rules restrict any use of the information to criminally investigate or prosecute any alcohol or drug abuse patient.[facility] HospitalIn the event this information is protected by the Federal Confidentiality of Alcohol and Drug Abuse Patient Records regulations: The Federal rules restrict any use of the information to criminally investigate or prosecute any alcohol or drug abuse patient.[facility] HospitalIn the event this information is protected by the Federal Confidentiality of Alcohol and Drug Abuse Patient Records regulations: The Federal rules restrict any use of the information to criminally investigate or prosecute any alcohol or drug abuse patient.[facility] HospitalIn the event this information is protected by the Federal Confidentiality of Alcohol and Drug Abuse Patient Records regulations: The Federal rules restrict any use of the information to criminally investigate or prosecute any alcohol or drug abuse patient.[facility] HospitalIn the event this information is protected by the Federal Confidentiality of Alcohol and Drug Abuse Patient Records regulations: The Federal rules restrict any use of the information to criminally investigate or prosecute any alcohol or drug abuse patient.[facility] HospitalIn the event this information is protected by the Federal Confidentiality of Alcohol and Drug Abuse Patient Records regulations: The Federal rules restrict any use of the information to criminally investigate or prosecute any alcohol or drug abuse patient.[facility]In the event this information is protected by the Federal Confidentiality of Alcohol and Drug Abuse Patient Records regulations: The Federal rules restrict any use of the information to criminally investigate or prosecute any alcohol or drug abuse patient.[facility] HospitalIn the event this information is protected by the Federal Confidentiality of Alcohol and Drug Abuse Patient Records regulations: The Federal rules restrict any use of the information to criminally investigate or prosecute any alcohol or drug abuse patient.[facility] HospitalIn the event this information is protected by the Federal Confidentiality of Alcohol and Drug Abuse Patient Records regulations: The Federal rules restrict any use of the information to criminally investigate or prosecute any alcohol or drug abuse patient.[facility] HospitalIn the event this information is protected by the Federal Confidentiality of Alcohol and Drug Abuse Patient Records regulations: The Federal rules restrict any use of the information to criminally investigate or prosecute any alcohol or drug abuse patient.[facility] HospitalIn the event this information is protected by the Federal Confidentiality of Alcohol and Drug Abuse Patient Records regulations: The Federal rules restrict any use of the information to criminally investigate or prosecute any alcohol or drug abuse patient.[facility] HospitalIn the event this information is protected by the Federal Confidentiality of Alcohol and Drug Abuse Patient Records regulations: The Federal rules restrict any use of the information to criminally investigate or prosecute any alcohol or drug abuse patient.[facility] HospitalIn the event this information is protected by the Federal Confidentiality of Alcohol and Drug Abuse Patient Records regulations: The Federal rules restrict any use of the information to criminally investigate or prosecute any alcohol or drug abuse patient.[facility] HospitalIn the event this information is protected by the Federal Confidentiality of Alcohol and Drug Abuse Patient Records regulations: The Federal rules restrict any use of the information to criminally investigate or prosecute any alcohol or drug abuse patient.[facility] HospitalIn the event this information is protected by the Federal Confidentiality of Alcohol and Drug Abuse Patient Records regulations: The Federal rules restrict any use of the information to criminally investigate or prosecute any alcohol or drug abuse patient.[facility] HospitalIn the event this information is protected by the Federal Confidentiality of Alcohol and Drug Abuse Patient Records regulations: The Federal rules restrict any use of the information to criminally investigate or prosecute any alcohol or drug abuse patient.[facility] HospitalIn the event this information is protected by the Federal Confidentiality of Alcohol and Drug Abuse Patient Records regulations: The Federal rules restrict any use of the information to criminally investigate or prosecute any alcohol or drug abuse patient.[facility] HospitalIn the event this information is protected by the Federal Confidentiality of Alcohol and Drug Abuse Patient Records regulations: The Federal rules restrict any use of the information to criminally investigate or prosecute any alcohol or drug abuse patient.[facility] HospitalIn the event this information is protected by the Federal Confidentiality of Alcohol and Drug Abuse Patient Records regulations: The Federal rules restrict any use of the information to criminally investigate or prosecute any alcohol or drug abuse patient.[facility] HospitalIn the event this information is protected by the Federal Confidentiality of Alcohol and Drug Abuse Patient Records regulations: The Federal rules restrict any use of the information to criminally investigate or prosecute any alcohol or drug abuse patient.[facility] HospitalIn the event this information is protected by the Federal Confidentiality of Alcohol and Drug Abuse Patient Records regulations: The Federal rules restrict any use of the information to criminally investigate or prosecute any alcohol or drug abuse patient.[facility] HospitalIn the event this information is protected by the Federal Confidentiality of Alcohol and Drug Abuse Patient Records regulations: The Federal rules restrict any use of the information to criminally investigate or prosecute any alcohol or drug abuse patient.[facility] HospitalIn the event this information is protected by the Federal Confidentiality of Alcohol and Drug Abuse Patient Records regulations: The Federal rules restrict any use of the information to criminally investigate or prosecute any alcohol or drug abuse patient.[facility] HospitalIn the event this information is protected by the Federal Confidentiality of Alcohol and Drug Abuse Patient Records regulations: The Federal rules restrict any use of the information to criminally investigate or prosecute any alcohol or drug abuse patient.[facility] HospitalIn the event this information is protected by the Federal Confidentiality of Alcohol and Drug Abuse Patient Records regulations: The Federal rules restrict any use of the information to criminally investigate or prosecute any alcohol or drug abuse patient.[facility] HospitalIn the event this information is protected by the Federal Confidentiality of Alcohol and Drug Abuse Patient Records regulations: The Federal rules restrict any use of the information to criminally investigate or prosecute any alcohol or drug abuse patient.[facility] HospitalIn the event this information is protected by the Federal Confidentiality of Alcohol and Drug Abuse Patient Records regulations: The Federal rules restrict any use of the information to criminally investigate or prosecute any alcohol or drug abuse patient.[facility] HospitalIn the event this information is protected by the Federal Confidentiality of Alcohol and Drug Abuse Patient Records regulations: The Federal rules restrict any use of the information to criminally investigate or prosecute any alcohol or drug abuse patient.[facility] HospitalIn the event this information is protected by the Federal Confidentiality of Alcohol and Drug Abuse Patient Records regulations: The Federal rules restrict any use of the information to criminally investigate or prosecute any alcohol or drug abuse patient.[facility]In the event this information is protected by the Federal Confidentiality of Alcohol and Drug Abuse Patient Records regulations: The Federal rules restrict any use of the information to criminally investigate or prosecute any alcohol or drug abuse patient.[facility] HospitalIn the event this information is protected by the Federal Confidentiality of Alcohol and Drug Abuse Patient Records regulations: The Federal rules restrict any use of the information to criminally investigate or prosecute any alcohol or drug abuse patient.[facility] HospitalIn the event this information is protected by the Federal Confidentiality of Alcohol and Drug Abuse Patient Records regulations: The Federal rules restrict any use of the information to criminally investigate or prosecute any alcohol or drug abuse patient.[facility] HospitalIn the event this information is protected by the Federal Confidentiality of Alcohol and Drug Abuse Patient Records regulations: The Federal rules restrict any use of the information to criminally investigate or prosecute any alcohol or drug abuse patient.[facility] HospitalIn the event this information is protected by the Federal Confidentiality of Alcohol and Drug Abuse Patient Records regulations: The Federal rules restrict any use of the information to criminally investigate or prosecute any alcohol or drug abuse patient.[facility] HospitalIn the event this information is protected by the Federal Confidentiality of Alcohol and Drug Abuse Patient Records regulations: The Federal rules restrict any use of the information to criminally investigate or prosecute any alcohol or drug abuse patient.[facility] HospitalIn the event this information is protected by the Federal Confidentiality of Alcohol and Drug Abuse Patient Records regulations: The Federal rules restrict any use of the information to criminally investigate or prosecute any alcohol or drug abuse patient.[facility] HospitalIn the event this information is protected by the Federal Confidentiality of Alcohol and Drug Abuse Patient Records regulations: The Federal rules restrict any use of the information to criminally investigate or prosecute any alcohol or drug abuse patient.[facility] HospitalIn the event this information is protected by the Federal Confidentiality of Alcohol and Drug Abuse Patient Records regulations: The Federal rules restrict any use of the information to criminally investigate or prosecute any alcohol or drug abuse patient.[facility] HospitalIn the event this information is protected by the Federal Confidentiality of Alcohol and Drug Abuse Patient Records regulations: The Federal rules restrict any use of the information to criminally investigate or prosecute any alcohol or drug abuse patient.[facility] HospitalIn the event this information is protected by the Federal Confidentiality of Alcohol and Drug Abuse Patient Records regulations: The Federal rules restrict any use of the information to criminally investigate or prosecute any alcohol or drug abuse patient.[facility] HospitalIn the event this information is protected by the Federal Confidentiality of Alcohol and Drug Abuse Patient Records regulations: The Federal rules restrict any use of the information to criminally investigate or prosecute any alcohol or drug abuse patient.[facility] HospitalIn the event this information is protected by the Federal Confidentiality of Alcohol and Drug Abuse Patient Records regulations: The Federal rules restrict any use of the information to criminally investigate or prosecute any alcohol or drug abuse patient.[facility] HospitalIn the event this information is protected by the Federal Confidentiality of Alcohol and Drug Abuse Patient Records regulations: The Federal rules restrict any use of the information to criminally investigate or prosecute any alcohol or drug abuse patient.[facility] HospitalIn the event this information is protected by the Federal Confidentiality of Alcohol and Drug Abuse Patient Records regulations: The Federal rules restrict any use of the information to criminally investigate or prosecute any alcohol or drug abuse patient.[facility] the event this information is protected by the Federal Confidentiality of Alcohol and Drug Abuse Patient Records regulations: The Federal rules restrict any use of the information to criminally investigate or prosecute any alcohol or drug abuse patient.[facility] HospitalIn the event this information is protected by the Federal Confidentiality of Alcohol and Drug Abuse Patient Records regulations: The Federal rules restrict any use of the information to criminally investigate or prosecute any alcohol or drug abuse patient.[facility] HospitalIn the event this information is protected by the Federal Confidentiality of Alcohol and Drug Abuse Patient Records regulations: The Federal rules restrict any use of the information to criminally investigate or prosecute any alcohol or drug abuse patient.[facility]In the event this information is protected by the Federal Confidentiality of Alcohol and Drug Abuse Patient Records regulations: The Federal rules restrict any use of the information to criminally investigate or prosecute any alcohol or drug abuse patient.[facility] HospitalIn the event this information is protected by the Federal Confidentiality of Alcohol and Drug Abuse Patient Records regulations: The Federal rules restrict any use of the information to criminally investigate or prosecute any alcohol or drug abuse patient.[facility] HospitalIn the event this information is protected by the Federal Confidentiality of Alcohol and Drug Abuse Patient Records regulations: The Federal rules restrict any use of the information to criminally investigate or prosecute any alcohol or drug abuse patient.[facility] HospitalIn the event this information is protected by the Federal Confidentiality of Alcohol and Drug Abuse Patient Records regulations: The Federal rules restrict any use of the information to criminally investigate or prosecute any alcohol or drug abuse patient.[facility] HospitalIn the event this information is protected by the Federal Confidentiality of Alcohol and Drug Abuse Patient Records regulations: The Federal rules restrict any use of the information to criminally investigate or prosecute any alcohol or drug abuse patient.[facility] HospitalIn the event this information is protected by the Federal Confidentiality of Alcohol and Drug Abuse Patient Records regulations: The Federal rules restrict any use of the information to criminally investigate or prosecute any alcohol or drug abuse patient.[facility] HospitalIn the event this information is protected by the Federal Confidentiality of Alcohol and Drug Abuse Patient Records regulations: The Federal rules restrict any use of the information to criminally investigate or prosecute any alcohol or drug abuse patient.[facility] HospitalIn the event this information is protected by the Federal Confidentiality of Alcohol and Drug Abuse Patient Records regulations: The Federal rules restrict any use of the information to criminally investigate or prosecute any alcohol or drug abuse patient.[facility]In the event this information is protected by the Federal Confidentiality of Alcohol and Drug Abuse Patient Records regulations: The Federal rules restrict any use of the information to criminally investigate or prosecute any alcohol or drug abuse patient.[facility]In the event this information is protected by the Federal Confidentiality of Alcohol and Drug Abuse Patient Records regulations: The Federal rules restrict any use of the information to criminally investigate or prosecute any alcohol or drug abuse patient.[facility]In the event this information is protected by the Federal Confidentiality of Alcohol and Drug Abuse Patient Records regulations: The Federal rules restrict any use of the information to criminally investigate or prosecute any alcohol or drug abuse patient.[facility]In the event this information is protected by the Federal Confidentiality of Alcohol and Drug Abuse Patient Records regulations: The Federal rules restrict any use of the information to criminally investigate or prosecute any alcohol or drug abuse patient.[facility]In the event this information is protected by the Federal Confidentiality of Alcohol and Drug Abuse Patient Records regulations: The Federal rules restrict any use of the information to criminally investigate or prosecute any alcohol or drug abuse patient.[facility]In the event this information is protected by the Federal Confidentiality of Alcohol and Drug Abuse Patient Records regulations: The Federal rules restrict any use of the information to criminally investigate or prosecute any alcohol or drug abuse patient.[facility]In the event this information is protected by the Federal Confidentiality of Alcohol and Drug Abuse Patient Records regulations: The Federal rules restrict any use of the information to criminally investigate or prosecute any alcohol or drug abuse patient.[facility]In the event this information is protected by the Federal Confidentiality of Alcohol and Drug Abuse Patient Records regulations: The Federal rules restrict any use of the information to criminally investigate or prosecute any alcohol or drug abuse patient.[facility]In the event this information is protected by the Federal Confidentiality of Alcohol and Drug Abuse Patient Records regulations: The Federal rules restrict any use of the information to criminally investigate or prosecute any alcohol or drug abuse patient.[facility]In the event this information is protected by the Federal Confidentiality of Alcohol and Drug Abuse Patient Records regulations: The Federal rules restrict any use of the information to criminally investigate or prosecute any alcohol or drug abuse patient.[facility]In the event this information is protected by the Federal Confidentiality of Alcohol and Drug Abuse Patient Records regulations: The Federal rules restrict any use of the information to criminally investigate or prosecute any alcohol or drug abuse patient.[facility]In the event this information is protected by the Federal Confidentiality of Alcohol and Drug Abuse Patient Records regulations: The Federal rules restrict any use of the information to criminally investigate or prosecute any alcohol or drug abuse patient.[facility]In the event this information is protected by the Federal Confidentiality of Alcohol and Drug Abuse Patient Records regulations: The Federal rules restrict any use of the information to criminally investigate or prosecute any alcohol or drug abuse patient.[facility]In the event this information is protected by the Federal Confidentiality of Alcohol and Drug Abuse Patient Records regulations: The Federal rules restrict any use of the information to criminally investigate or prosecute any alcohol or drug abuse patient.[facility] HospitalIn the event this information is protected by the Federal Confidentiality of Alcohol and Drug Abuse Patient Records regulations: The Federal rules restrict any use of the information to criminally investigate or prosecute any alcohol or drug abuse patient.[facility] HospitalIn the event this information is protected by the Federal Confidentiality of Alcohol and Drug Abuse Patient Records regulations: The Federal rules restrict any use of the information to criminally investigate or prosecute any alcohol or drug abuse patient.[facility] HospitalIn the event this information is protected by the Federal Confidentiality of Alcohol and Drug Abuse Patient Records regulations: The Federal rules restrict any use of the information to criminally investigate or prosecute any alcohol or drug abuse patient.[facility] HospitalIn the event this information is protected by the Federal Confidentiality of Alcohol and Drug Abuse Patient Records regulations: The Federal rules restrict any use of the information to criminally investigate or prosecute any alcohol or drug abuse patient.[facility] HospitalIn the event this information is protected by the Federal Confidentiality of Alcohol and Drug Abuse Patient Records regulations: The Federal rules restrict any use of the information to criminally investigate or prosecute any alcohol or drug abuse patient.[facility] HospitalIn the event this information is protected by the Federal Confidentiality of Alcohol and Drug Abuse Patient Records regulations: The Federal rules restrict any use of the information to criminally investigate or prosecute any alcohol or drug abuse patient.[facility] HospitalIn the event this information is protected by the Federal Confidentiality of Alcohol and Drug Abuse Patient Records regulations: The Federal rules restrict any use of the information to criminally investigate or prosecute any alcohol or drug abuse patient.[facility] HospitalIn the event this information is protected by the Federal Confidentiality of Alcohol and Drug Abuse Patient Records regulations: The Federal rules restrict any use of the information to criminally investigate or prosecute any alcohol or drug abuse patient.[facility] HospitalIn the event this information is protected by the Federal Confidentiality of Alcohol and Drug Abuse Patient Records regulations: The Federal rules restrict any use of the information to criminally investigate or prosecute any alcohol or drug abuse patient.[facility] HospitalIn the event this information is protected by the Federal Confidentiality of Alcohol and Drug Abuse Patient Records regulations: The Federal rules restrict any use of the information to criminally investigate or prosecute any alcohol or drug abuse patient.[facility] HospitalIn the event this information is protected by the Federal Confidentiality of Alcohol and Drug Abuse Patient Records regulations: The Federal rules restrict any use of the information to criminally investigate or prosecute any alcohol or drug abuse patient.[facility] HospitalIn the event this information is protected by the Federal Confidentiality of Alcohol and Drug Abuse Patient Records regulations: The Federal rules restrict any use of the information to criminally investigate or prosecute any alcohol or drug abuse patient.[facility] HospitalIn the event this information is protected by the Federal Confidentiality of Alcohol and Drug Abuse Patient Records regulations: The Federal rules restrict any use of the information to criminally investigate or prosecute any alcohol or drug abuse patient.[facility] HospitalIn the event this information is protected by the Federal Confidentiality of Alcohol and Drug Abuse Patient Records regulations: The Federal rules restrict any use of the information to criminally investigate or prosecute any alcohol or drug abuse patient.[facility] HospitalIn the event this information is protected by the Federal Confidentiality of Alcohol and Drug Abuse Patient Records regulations: The Federal rules restrict any use of the information to criminally investigate or prosecute any alcohol or drug abuse patient.[facility] HospitalIn the event this information is protected by the Federal Confidentiality of Alcohol and Drug Abuse Patient Records regulations: The Federal rules restrict any use of the information to criminally investigate or prosecute any alcohol or drug abuse patient.[facility] HospitalIn the event this information is protected by the Federal Confidentiality of Alcohol and Drug Abuse Patient Records regulations: The Federal rules restrict any use of the information to criminally investigate or prosecute any alcohol or drug abuse patient.[facility] HospitalIn the event this information is protected by the Federal Confidentiality of Alcohol and Drug Abuse Patient Records regulations: The Federal rules restrict any use of the information to criminally investigate or prosecute any alcohol or drug abuse patient.[facility] HospitalIn the event this information is protected by the Federal Confidentiality of Alcohol and Drug Abuse Patient Records regulations: The Federal rules restrict any use of the information to criminally investigate or prosecute any alcohol or drug abuse patient.[facility] HospitalIn the event this information is protected by the Federal Confidentiality of Alcohol and Drug Abuse Patient Records regulations: The Federal rules restrict any use of the information to criminally investigate or prosecute any alcohol or drug abuse patient.[facility] HospitalIn the event this information is protected by the Federal Confidentiality of Alcohol and Drug Abuse Patient Records regulations: The Federal rules restrict any use of the information to criminally investigate or prosecute any alcohol or drug abuse patient.[facility] HospitalIn the event this information is protected by the Federal Confidentiality of Alcohol and Drug Abuse Patient Records regulations: The Federal rules restrict any use of the information to criminally investigate or prosecute any alcohol or drug abuse patient.[facility] HospitalIn the event this information is protected by the Federal Confidentiality of Alcohol and Drug Abuse Patient Records regulations: The Federal rules restrict any use of the information to criminally investigate or prosecute any alcohol or drug abuse patient.[facility] HospitalIn the event this information is protected by the Federal Confidentiality of Alcohol and Drug Abuse Patient Records regulations: The Federal rules restrict any use of the information to criminally investigate or prosecute any alcohol or drug abuse patient.[facility] HospitalIn the event this information is protected by the Federal Confidentiality of Alcohol and Drug Abuse Patient Records regulations: The Federal rules restrict any use of the information to criminally investigate or prosecute any alcohol or drug abuse patient.[facility] the event this information is protected by the Federal Confidentiality of Alcohol and Drug Abuse Patient Records regulations: The Federal rules restrict any use of the information to criminally investigate or prosecute any alcohol or drug abuse patient.[facility] HospitalIn the event this information is protected by the Federal Confidentiality of Alcohol and Drug Abuse Patient Records regulations: The Federal rules restrict any use of the information to criminally investigate or prosecute any alcohol or drug abuse patient.[facility] HospitalIn the event this information is protected by the Federal Confidentiality of Alcohol and Drug Abuse Patient Records regulations: The Federal rules restrict any use of the information to criminally investigate or prosecute any alcohol or drug abuse patient.[facility] HospitalIn the event this information is protected by the Federal Confidentiality of Alcohol and Drug Abuse Patient Records regulations: The Federal rules restrict any use of the information to criminally investigate or prosecute any alcohol or drug abuse patient.[facility] HospitalIn the event this information is protected by the Federal Confidentiality of Alcohol and Drug Abuse Patient Records regulations: The Federal rules restrict any use of the information to criminally investigate or prosecute any alcohol or drug abuse patient.[facility] HospitalIn the event this information is protected by the Federal Confidentiality of Alcohol and Drug Abuse Patient Records regulations: The Federal rules restrict any use of the information to criminally investigate or prosecute any alcohol or drug abuse patient.[facility] HospitalIn the event this information is protected by the Federal Confidentiality of Alcohol and Drug Abuse Patient Records regulations: The Federal rules restrict any use of the information to criminally investigate or prosecute any alcohol or drug abuse patient.[facility] HospitalIn the event this information is protected by the Federal Confidentiality of Alcohol and Drug Abuse Patient Records regulations: The Federal rules restrict any use of the information to criminally investigate or prosecute any alcohol or drug abuse patient.[facility] HospitalIn the event this information is protected by the Federal Confidentiality of Alcohol and Drug Abuse Patient Records regulations: The Federal rules restrict any use of the information to criminally investigate or prosecute any alcohol or drug abuse patient.[facility] HospitalIn the event this information is protected by the Federal Confidentiality of Alcohol and Drug Abuse Patient Records regulations: The Federal rules restrict any use of the information to criminally investigate or prosecute any alcohol or drug abuse patient.[facility] HospitalIn the event this information is protected by the Federal Confidentiality of Alcohol and Drug Abuse Patient Records regulations: The Federal rules restrict any use of the information to criminally investigate or prosecute any alcohol or drug abuse patient.[facility] HospitalIn the event this information is protected by the Federal Confidentiality of Alcohol and Drug Abuse Patient Records regulations: The Federal rules restrict any use of the information to criminally investigate or prosecute any alcohol or drug abuse patient.[facility] HospitalIn the event this information is protected by the Federal Confidentiality of Alcohol and Drug Abuse Patient Records regulations: The Federal rules restrict any use of the information to criminally investigate or prosecute any alcohol or drug abuse patient.[facility] HospitalIn the event this information is protected by the Federal Confidentiality of Alcohol and Drug Abuse Patient Records regulations: The Federal rules restrict any use of the information to criminally investigate or prosecute any alcohol or drug abuse patient.[facility] HospitalIn the event this information is protected by the Federal Confidentiality of Alcohol and Drug Abuse Patient Records regulations: The Federal rules restrict any use of the information to criminally investigate or prosecute any alcohol or drug abuse patient.[facility] HospitalIn the event this information is protected by the Federal Confidentiality of Alcohol and Drug Abuse Patient Records regulations: The Federal rules restrict any use of the information to criminally investigate or prosecute any alcohol or drug abuse patient.[facility] HospitalIn the event this information is protected by the Federal Confidentiality of Alcohol and Drug Abuse Patient Records regulations: The Federal rules restrict any use of the information to criminally investigate or prosecute any alcohol or drug abuse patient.[facility] HospitalIn the event this information is protected by the Federal Confidentiality of Alcohol and Drug Abuse Patient Records regulations: The Federal rules restrict any use of the information to criminally investigate or prosecute any alcohol or drug abuse patient.[facility] HospitalIn the event this information is protected by the Federal Confidentiality of Alcohol and Drug Abuse Patient Records regulations: The Federal rules restrict any use of the information to criminally investigate or prosecute any alcohol or drug abuse patient.[facility] HospitalIn the event this information is protected by the Federal Confidentiality of Alcohol and Drug Abuse Patient Records regulations: The Federal rules restrict any use of the information to criminally investigate or prosecute any alcohol or drug abuse patient.[facility] HospitalIn the event this information is protected by the Federal Confidentiality of Alcohol and Drug Abuse Patient Records regulations: The Federal rules restrict any use of the information to criminally investigate or prosecute any alcohol or drug abuse patient.[facility] HospitalIn the event this information is protected by the Federal Confidentiality of Alcohol and Drug Abuse Patient Records regulations: The Federal rules restrict any use of the information to criminally investigate or prosecute any alcohol or drug abuse patient.[facility]In the event this information is protected by the Federal Confidentiality of Alcohol and Drug Abuse Patient Records regulations: The Federal rules restrict any use of the information to criminally investigate or prosecute any alcohol or drug abuse patient.[facility]In the event this information is protected by the Federal Confidentiality of Alcohol and Drug Abuse Patient Records regulations: The Federal rules restrict any use of the information to criminally investigate or prosecute any alcohol or drug abuse patient.[facility] HospitalIn the event this information is protected by the Federal Confidentiality of Alcohol and Drug Abuse Patient Records regulations: The Federal rules restrict any use of the information to criminally investigate or prosecute any alcohol or drug abuse patient.[facility] HospitalIn the event this information is protected by the Federal Confidentiality of Alcohol and Drug Abuse Patient Records regulations: The Federal rules restrict any use of the information to criminally investigate or prosecute any alcohol or drug abuse patient.[facility] HospitalIn the event this information is protected by the Federal Confidentiality of Alcohol and Drug Abuse Patient Records regulations: The Federal rules restrict any use of the information to criminally investigate or prosecute any alcohol or drug abuse patient.[facility] HospitalIn the event this information is protected by the Federal Confidentiality of Alcohol and Drug Abuse Patient Records regulations: The Federal rules restrict any use of the information to criminally investigate or prosecute any alcohol or drug abuse patient.[facility] HospitalIn the event this information is protected by the Federal Confidentiality of Alcohol and Drug Abuse Patient Records regulations: The Federal rules restrict any use of the information to criminally investigate or prosecute any alcohol or drug abuse patient.[facility]In the event this information is protected by the Federal Confidentiality of Alcohol and Drug Abuse Patient Records regulations: The Federal rules restrict any use of the information to criminally investigate or prosecute any alcohol or drug abuse patient.[facility] HospitalIn the event this information is protected by the Federal Confidentiality of Alcohol and Drug Abuse Patient Records regulations: The Federal rules restrict any use of the information to criminally investigate or prosecute any alcohol or drug abuse patient.[facility] FOR RECORDS PERTAINING TO PATIENTS WHO ARE OR HAVE BEEN ENROLLED IN A CHEMICAL DEPENDENCY/SUBSTANCEABUSE PROGRAM, SOME INFORMATION MAY BE OMITTED. This clinical summary was aggregated from multiple sources. Caution should be exercised in using it in the provision of clinical care. This summary normalizes information from multiple sources, and as a consequence, information in this document may materially change the coding, format and clinical context of patient data. In addition, data may be omitted in some cases. CLINICAL DECISIONS SHOULD BE BASED ON THE PRIMARY CLINICAL RECORDS. [employer] [facility]. provides no warranty or guarantee of the accuracy or completeness of information in this document.
--- NOTE | 2024-09-04 17:58 | EX.ED.VIS.HA ---
HPI History of Present Illness Chief Complaint: Headache Informant: patient Narrative Narrative: Nontraumatic frontal headache for last few weeks on and off. Reports chronic bumps on back for head in the right side for years that is painful. Reports clogging to the left ear. History of seasonal allergies on medications. Patient left work today due to symptoms. No fevers. No visual changes. No photophobia or phonophobia. No nausea or vomiting. Prior similar symptoms: No PFSH PFSH Medical History Reactive hypoglycemia Asthma Home Medications ?Medication ?Instructions ?Recorded ?Last Taken ?Type albuterol sulfate 90 mcg/actuation 2 puff IH Q4H PRN Asthma 02/25/19 Unknown History aerosol inhaler citalopram 40 mg tablet 40 mg PO DAILY 02/25/19 Unknown History albuterol sulfate 90 mcg/actuation 2 inh inhalation Q4H PRN shortness 07/11/23 Unknown History aerosol inhaler (ProAir HFA) of breath or wheezing budesonide 0.5 mg/2 mL suspension 0.5 mg inhalation Q12.TCU 07/11/23 Unknown History for nebulization dextroamphetamine-amphetamine ER 30 mg PO DAILY 07/11/23 Unknown History 30 mg 24hr capsule,extend release fexofenadine 180 mg tablet 180 mg PO DAILY 07/11/23 Unknown History (Cydney Allergy) fluticasone 250 mcg-salmeterol 50 1 inh inhalation BID 07/11/23 Unknown History mcg/dose blistr powdr for inhalation (Wixela Inhub) mepolizumab 100 mg/mL subcutaneous 100 mg subcut QMONTH 07/11/23 Unknown History auto-injector (Nucala) metformin 500 mg tablet,extended 500 mg PO TID 07/11/23 Unknown History release 24 hr montelukast 10 mg tablet 10 mg PO DAILY 07/11/23 Unknown History nitrofurantoin 100 mg PO Q12H 5 days #10 caps 07/11/23 Unknown Rx monohydrate/macrocrystals 100 mg capsule (Macrobid) Allergy/AdvReac Type Severity Reaction Status Date / Time sulfamethoxazole (From Allergy Mild UNKNOWN Verified 07/11/23 15:08 Bactrim) trimethoprim (From Bactrim) Allergy Mild UNKNOWN Verified 07/11/23 15:08 ceftriaxone (From Rocephin) Allergy Hives Verified 07/11/23 15:08 Surgical History History of section History of cholecystectomy Social History Smoking Status: Never smoker alcohol intake: never ROS ROS ED Constitutional Constitutional ED: Denies fever(s) ENT ENT ED: Reports other Details: Muffling to the left ear. Cardiovascular Cardiovascular: Denies chest pain Respiratory/Chest Respiratory/Chest: Denies cough Gastrointestinal Gastrointestinal: Denies diarrhea or vomiting Musculoskeletal Musculoskeletal: Denies none Integumentary Reports other Details: Painful bumps right side head. ; Denies rash or wounds Neurologic Neurologic: Reports headache(s); Denies weakness EXAM Physical Exam Const Vital Signs: 09/04/24 16:06 09/04/24 18:05 09/04/24 18:58 Temperature 98.0 F 98.2 F Temperature Source Oral Pulse Rate 68 71 71 Respiratory Rate 16 18 18 Blood Pressure 112/82 H 110/88 H 110/88 H Blood Pressure Mean 92 95 95 Pulse Ox 99 98 98 Oxygen Delivery Method Room Air Positive well nourished and well developed General Appearance ED: well developed and NAD HEENT Reports moist mucous membranes HEENT Narrative: Scalp with pea-sized nodules 1 in the right frontal and right parietal 2 in the occipital, no redness no drainage no fluctuance.. TMs were normal bilaterally. normocephalic and atraumatic Eyes General Eye ED: Yes normal appearance of both eyes Neck full ROM and no meningeal signs Chest Wall Chest: Negative for tenderness Resp normal respiratory effort and normal air movement Effort and Inspection: symmetric chest movement; Negative for respiratory distress Cardio regular rate, regular rhythm and no murmurs Peripheral Pulses: pulses 2+ throughout GI normal to inspection, nondistended, normoactive bowel sounds and non-tender Palpation: Negative for guarding or rebound tenderness present Extremity normal to inspection General Extremety ED: Negative for edema or tenderness General Extremity: Negative for edema Neuro oriented x3, CN's II-XII intact bilaterally and no sensory deficits noted Sensorium / Orientation: awake and alert Skin no rashes or lesions noted and no wounds MDM MDM MDM Narrative Medical decision making narrative: Interventions / MDM: Differential diagnosis: Nonspecific headache, scalp nodules Diagnosis considered but do not suspect: No clinical meningitis, no clinical abscess. Negative for otitis media. My EKG interpretation: N/A Imaging independently reviewed and interpreted by myself: CT brain: No intracranial hemorrhage. Calcified nodules seen on scalp and right side consistent with patient's areas. External documents reviewed: N/A Test considered but not ordered:N/A ED course: Patient no meningismal findings nontoxic. Nonspecific headaches that is new. CT brain ordered. Discussed nonspecific painful nodules noninfectious this time. No signs of clinical ear infection with her ears. She has sinus drainage discussed likely eustachian tube problems. Tylenol ordered to help with headache symptoms. No intracranial hemorrhage calcified nodules from CT scan chronic per patient. No signs of infection. Headache was improved with Tylenol. She does have a PCP for follow-up with referrals as needed. All questions were answered. Re-evaluation: stable Disposition discussed with patient/family/significant other: Patient Case discussed with consulting clinician: N/A This note was generated with [employer] dictation software. It may contain incorrect words, spelling, and punctuation that were not noted in checking the note before signing. Radiography Diagnostic Testing: Clinical Impression(s) from Imaging Studies Brain CT 09/04/24 16:38 IMPRESSION: 1. Nodules containing calcification throughout the scalp measuring up to 1.0 cm in size, most notably in the right occipital region. Differential includes pilar cysts, epidermal inclusion cyst, or other neoplasm. Recommend clinical follow-up. 2. No acute intracranial abnormality. Reading Location: [facility] Discharge Plan Triage Chief Complaint: Headache ED Provider: Charlie Karimi Dx/Rx/DC Orders Clinical Impression: Headache, Scalp lesion Instructions: ED Headache Unspecified Prescriptions: No Action citalopram 40 MG tablet 40 mg PO DAILY albuterol sulfate 18 GM HFA aerosol inhaler 2 puff IH Q4H PRN (Reason: Asthma) metformin 500 mg tablet extended release 24 hr 500 mg PO TID Nucala 100 mg/mL auto-injector 100 mg subcut QMONTH albuterol sulfate [ProAir HFA] 90 mcg/actuation HFA aerosol inhaler 2 inh inhalation Q4H PRN (Reason: shortness of breath or wheezing) fluticasone propion-salmeterol [Wixela Inhub] 250-50 mcg/dose blister with device 1 inh inhalation BID budesonide 0.5 mg/2 mL suspension for nebulization 0.5 mg inhalation Q12.TCU montelukast 10 mg tablet 10 mg PO DAILY dextroamphetamine-amphetamine 30 mg capsule,extended release 24hr 30 mg PO DAILY fexofenadine [Cydney Allergy] 180 mg tablet 180 mg PO DAILY nitrofurantoin monohyd/m-cryst [Macrobid] 100 mg capsule 100 mg PO Q12H 5 Days Qty: 10 0RF Rx Instructions: must administer with a meal/food Stand Alone Forms: ED Work / School Excuse Primary Care Provider: Rosie Snowden Referrals: Rosie Snowden [Other] - 1 Week Activity Restrictions/Additional Instructions: CT scan normal brain structures. Multiple scalp calcified nodules noted on the right side. Use Tylenol as needed. Follow-up with your PCP reevaluation and referral as needed. Print Language: Lao Disposition Disposition: Home, Self Care Discharge Date/Time: 09/04/24 18:59
[2024-09-04 18:05] VITALS: BP 110/88; PULSE 71; RESP 18; O2SAT 98
[2024-09-04 18:58] VITALS: BP 110/88; PULSE 71; RESP 18; TEMP 36.8; O2SAT 98
== END 2024-09-04 18:59 | disposition home or self-care (01) ==
PROVIDERS: Emergency Provider Emergency Medicine; Visit Provider Emergency Medicine
DX: R22.0 Localized swelling, mass and lump, head (principal); J32.9 Chronic sinusitis, unspecified; J45.909 Unspecified asthma, uncomplicated; R51.9 Headache, unspecified
CPT/HCPCS: 70450; 99282

== ENCOUNTER 2024-10-05 19:27 | Emergency (ER) | payer BC, SELFPAY ==
[2024-10-05 19:31] VITALS: BP 124/69; PULSE 64; RESP 18; TEMP 36.9; O2SAT 99; BMI 38.7
--- NOTE | 2024-10-05 20:07 | EX.ED.DYSGE1 ---
HPI History of Present Illness Chief Complaint: Hypoglycemia Informant: patient and EMS Narrative Narrative: 34-year-old female presenting with hypoglycemia. She states she was feeling sort of weak and heavy feet all day, she has a Dexcom monitor because she states she has reactive hypoglycemia and it happens more often when she is on her menstrual cycle which she is on today. Her Dexcom was reading 91 and she was feeling really poorly and then a apparently she had a near syncopal episode where she collapsed at work and 911 was called. They checked her blood sugar and it was low in the 30s, they gave her some oral glucose is feeling little better now but still shaky. When her Dexcom was reading in the 120s here, our BGT had her in the 70s. She denies any recent illness or other symptoms. [facility] Medical History Anxiety Reactive hypoglycemia Asthma Home Medications ?Medication ?Instructions ?Recorded ?Last Taken ?Type albuterol sulfate 90 mcg/actuation 2 puff IH Q4H PRN Asthma 02/25/19 Unknown History aerosol inhaler citalopram 40 mg tablet 40 mg PO DAILY 02/25/19 Unknown History budesonide 0.5 mg/2 mL suspension 0.5 mg inhalation Q12.TCU 07/11/23 Unknown History for nebulization fexofenadine 180 mg tablet 180 mg PO DAILY 07/11/23 Unknown History (Cydney Allergy) fluticasone 250 mcg-salmeterol 50 1 inh inhalation BID 07/11/23 Unknown History mcg/dose blistr powdr for inhalation (Wixela Inhub) mepolizumab 100 mg/mL subcutaneous 100 mg subcut QMONTH 07/11/23 Unknown History auto-injector (Nucala) metformin 500 mg tablet,extended 500 mg PO TID 07/11/23 Unknown History release 24 hr montelukast 10 mg tablet 10 mg PO DAILY 07/11/23 Unknown History buspirone 15 mg tablet 15 mg PO TID 10/05/24 Unknown History lamotrigine 100 mg tablet 100 mg PO DAILY 10/05/24 Unknown History semaglutide (weight loss) 1 mg/0.5 1 mg subcut QWEEK 10/05/24 Unknown History mL subcutaneous pen injector (Wegovy) trazodone 100 mg tablet 100 mg PO QHS 10/05/24 Unknown History Allergy/AdvReac Type Severity Reaction Status Date / Time sulfamethoxazole (From Allergy Mild UNKNOWN Verified 10/05/24 19:29 Bactrim) trimethoprim (From Bactrim) Allergy Mild UNKNOWN Verified 10/05/24 19:29 ceftriaxone (From Rocephin) Allergy Hives Verified 10/05/24 19:29 Surgical History History of section History of cholecystectomy Social History Smoking Status: Never smoker alcohol intake: never ROS ROS ED Constitutional Constitutional ED: Reports malaise and weakness; Denies chills or fever(s) Eyes Eyes: Denies change in vision or diplopia ENT ENT ED: Denies rhinorrhea or sore throat Cardiovascular Cardiovascular: Denies chest pain or palpitations Respiratory/Chest Respiratory/Chest: Denies cough or dyspnea Gastrointestinal Gastrointestinal: Denies abdominal pain, diarrhea, nausea or vomiting Genitourinary Genitourinary ED: Denies dysuria or hematuria Musculoskeletal Musculoskeletal: Denies back pain or neck pain Integumentary Denies abscess or rash Neurologic Neurologic: Denies headache(s), paresthesias or weakness Psychiatric Psychiatric: Denies anxiety or suicidal thoughts EXAM Physical Exam Const Vital Signs: 10/05/24 19:31 10/05/24 19:34 10/05/24 21:00 Temperature 98.5 F Temperature Source Oral Pulse Rate 64 64 Respiratory Rate 18 18 Respiratory Effort Normal Non-Labored Respiratory Pattern Normal Blood Pressure 124/69 H 122/62 H Blood Pressure Mean 87 82 Pulse Ox 99 100 Oxygen Delivery Method Room Air Room Air 10/05/24 22:07 Temperature Temperature Source Pulse Rate 66 Respiratory Rate 18 Respiratory Effort Respiratory Pattern Blood Pressure 114/50 L Blood Pressure Mean 71 Pulse Ox 100 Oxygen Delivery Method Room Air Positive well nourished and well developed General Appearance ED: well developed and NAD HEENT Reports moist mucous membranes normocephalic and atraumatic Eyes PERRL and EOMs intact bilaterally Neck full ROM and supple Resp normal respiratory effort and clear to auscultation bilaterally Cardio regular rate, regular rhythm and no murmurs GI non-tender and non-distended Auscultation: normoactive bowel sounds Palpation: soft Back/Spine no CVA tenderness General Back: other FROM Extremity normal to inspection General Extremety ED: Negative for edema, pulses abnormal or tenderness General Extremity: Negative for edema or pulses abnormal Neuro oriented x3, CN's II-XII intact bilaterally and no sensory deficits noted Sensorium / Orientation: awake and alert Motor Exam: strength 5/5 throughout Skin no rashes or lesions noted and no wounds MDM MDM MDM Narrative Medical decision making narrative: Patient was observed and we monitored blood sugar, gave her some IV Zofran, checked her urine which is negative for infection and her is negative, and she has that I checked some other blood test as well. Basic labs are all unremarkable except for mild leukocytosis which is nonspecific and could be demargination from the stress of hypoglycemia. She was given some food to eat after juice to drink, and eventually she felt better without being shaky anymore. Blood sugars have been stable. She is stable for discharge and close outpatient follow-up. Lab Data Attestation: I reviewed the patient's lab results. Labs: Laboratory Results - last 24 hr 10/05/24 10/05/24 10/05/24 19:45 20:22 20:25 WBC 13.1 H RBC 4.33 Hgb 12.2 Hct 37.9 MCV 87.5 MCH 28.2 MCHC 32.2 RDW Std Deviation 44.5 H RDW Coeff of Lala 13.8 Plt Count 310 MPV 10.3 Immature Gran % (Auto) 0.400 Neut % (Auto) 70.0 Lymph % (Auto) 22.6 [place] % (Auto) 4.7 Eos % (Auto) 2.0 Baso % (Auto) 0.3 Absolute Neuts (auto) 9.2 H Absolute Lymphs (auto) 2.95 Nucleated RBC % 0 Sodium 141 Potassium 3.9 Chloride 106 Carbon Dioxide 23.7 Anion Gap 12 BUN 6 Creatinine 0.57 L Estim Creat Clear Calc 162.07 Est GFR (MDRD) Non-Af 122 BUN/Creatinine Ratio 10.9 Glucose 69 L Calcium 9.5 Urine Color Straw Urine Clarity Clear Urine pH 6.5 Ur Specific [place] 1.010 Urine Protein Negative Urine Glucose (UA) Normal Urine Ketones Negative Urine Occult Blood 250 H Urine Nitrite Negative Urine Bilirubin Negative Urine Urobilinogen Normal Ur Leukocyte Esterase 25 H Urine RBC 0-5 SEEN Urine WBC 0-5 SEEN Ur Squamous Epith Cells 0-5 SEEN Urine Bacteria 0 SEEN Urine Mucus 0 SEEN Urine Test Negative POC Glucose 73 L 10/05/24 10/05/24 20:53 22:07 WBC RBC Hgb Hct MCV MCH MCHC RDW Std Deviation RDW Coeff of Lala Plt Count MPV Immature Gran % (Auto) Neut % (Auto) Lymph % (Auto) [place] % (Auto) Eos % (Auto) Baso % (Auto) Absolute Neuts (auto) Absolute Lymphs (auto) Nucleated RBC % Sodium Potassium Chloride Carbon Dioxide Anion Gap BUN Creatinine Estim Creat Clear Calc Est GFR (MDRD) Non-Af BUN/Creatinine Ratio Glucose Calcium Urine Color Urine Clarity Urine pH Ur Specific [place] Urine Protein Urine Glucose (UA) Urine Ketones Urine Occult Blood Urine Nitrite Urine Bilirubin Urine Urobilinogen Ur Leukocyte Esterase Urine RBC Urine WBC Ur Squamous Epith Cells Urine Bacteria Urine Mucus Urine Test POC Glucose 65 L 85 Discharge Plan Triage Chief Complaint: Hypoglycemia ED Provider: Sharad Hansen Dx/Rx/DC Orders Clinical Impression: Hypoglycemia Instructions: ED LOW BLOOD SUGAR, Non Diabetic Prescriptions: No Action citalopram 40 MG tablet 40 mg PO DAILY albuterol sulfate 18 GM HFA aerosol inhaler 2 puff IH Q4H PRN (Reason: Asthma) metformin 500 mg tablet extended release 24 hr 500 mg PO TID Nucala 100 mg/mL auto-injector 100 mg subcut QMONTH fluticasone propion-salmeterol [Wixela Inhub] 250-50 mcg/dose blister with device 1 inh inhalation BID budesonide 0.5 mg/2 mL suspension for nebulization 0.5 mg inhalation Q12.TCU montelukast 10 mg tablet 10 mg PO DAILY fexofenadine [Cydney Allergy] 180 mg tablet 180 mg PO DAILY trazodone 100 mg tablet 100 mg PO QHS lamotrigine 100 mg tablet 100 mg PO DAILY buspirone 15 mg tablet 15 mg PO TID Wegovy 1 mg/0.5 mL pen injector 1 mg subcut QWEEK Patient Comments: MONDAYS Primary Care Provider: DONALD FERREIRA Referrals: Doctor,Your [Non-Staff] - 1-2 Days if not improving Print Language: Swedish Disposition Disposition: Home, Self Care
[2024-10-05 20:35] LABS: Mucous, Urine 0 SEEN /hpf (<or=2+)
[2024-10-05 20:40] LABS: Color, Urine Straw (Yellow); Glucose, Dipstick Normal (Normal); Ketone-Dipstick Negative (Negative); Leukocyte Esterase-Dipstick 25 /ul (Negative); Nitrite-Dipstick Negative (Negative); Occult Blood-Urine 250 /ul (Negative); Protein-Dipstick Negative (Negative); Specific Gravity, Urine 1.010 (1.002-1.030); Urine Bilirubin Dipstick Negative (Negative)
[2024-10-05 20:54] LABS: Anion Gap 12 (5-15); BUN 6 mg/dL (4-19); BUN/Creat Ratio 10.9 RATIO (10-20); Calcium,Total 9.5 mg/dL (7.6-11.0); Carbon Dioxide 23.7 mmol/L (21.0-32.0); Chloride 106 mmol/L (98-108); Estimated Creatinine Clearance 162.07 ml/min (50-250); Glucose 69 mg/dL (70-99); Hematocrit 37.9 % (37-47); Hemoglobin 12.2 g/dL (12.0-15.0); Immature Granulocytes Count 0.050 X10^3/uL (0.0-0.0); Mean Corp Hgb Conc 32.2 g/dL (32-36); Mean Corpuscular Volume 87.5 fL (81-99); Mean Platelet Vol. 10.3 fl (6.2-12.0); NRBC Flagged by Analyzer 0 % (0-5); Platelet Count 310 K/mm3 (150-450); Potassium 3.9 mmol/L (3.3-5.1); RBC Distribution Width CV 13.8 % (11.6-14.6); RBC Distribution Width SD 44.5 fl (35.1-43.9); Red Blood Count 4.33 M/mm3 (4.2-5.4); White Blood Count 13.1 K/mm3 (4.4-11.0)
[2024-10-05 21:00] VITALS: BP 122/62; PULSE 64; RESP 18; O2SAT 100
[2024-10-05 21:41] LABS: Red Blood Cells-Urine 0-5 SEEN /hpf (0-5); Squamous Epithelial Cells - UA 0-5 SEEN /hpf (5-10)
[2024-10-05 21:42] LABS: Internal QC Validated? YES +Cl - CLEAR BKGD; Pregnancy, Urine Negative Negative; Record Kit Lot#,Urine Preg 962302
[2024-10-05 22:07] VITALS: BP 114/50; PULSE 66; RESP 18; O2SAT 100
--- NOTE | 2024-10-05 22:30 | ED.RN ---
1899: Dr. Hansen asked this RN to feed the patient. This RN gave the patient options for food and brought the patient a sandwich, crackers, and string cheese. Shortly after this RN exited the room and the patient pressed her call light and the patient called out stating that she was nauseous. Upon entering the room the patient stated that she had not attempted to eat any of the food but she was going to puke. This RN gave her an emesis bag and received a verbal order for zofran for the patient, see MAR documentation. 2199: The patient explained to this RN that the patient was unable to eat the sandwich provided but was able to successfully eat the string cheese and crackers. The patient stated that the zofran helped her nausea. The patient refuses to attempt to consume the sandwich. notified.
[2024-10-05 23:00] VITALS: BP 121/70; PULSE 64; RESP 18; TEMP 36.6; O2SAT 100
== END 2024-10-05 23:24 | disposition home or self-care (01) ==
PROVIDERS: Emergency Provider Emergency Medicine; Visit Provider Emergency Medicine
DX: E16.2 Hypoglycemia, unspecified (principal); R55 Syncope and collapse; J45.909 Unspecified asthma, uncomplicated; Z79.85 Long-term (current) use of injectable non-insulin antidiabetic drugs
CPT/HCPCS: 80048; 81001; 81025; 82962; 85025; 96374; 99284; A4216; J2405

== ENCOUNTER 2024-12-26 16:23 | Emergency (ER) | payer BC, SELFPAY ==
[2024-12-26 16:24] VITALS: BP 125/78; PULSE 88; RESP 16; TEMP 36.6; O2SAT 99; BMI 35.6
--- OUTSIDE RECORDS SUMMARY | 2024-12-26 16:49 | XMS RPT_ITS | CCD ---
Author Organization [facility] Care Team Providers Care Flight Reservations Manager Name Role Phone Nargis, Radha Romeo Primary Care Provider PROVIDER, UNKNOWN Referring Unavailable Charu Baker Attending Unavailable Charu Baker Primary Care Unavailable (Historical), Unknown Primary Care Provider Unav ailable Donald Snowden DO Primary Care Provider YANIRA MORTON Attending Unavail able RADHA RIOJAS Primary Care Unavailable (Historical), Unknown Primary Care Provider Unav ailable PROVIDER, UNKNOWN Referring Unavailable PROVIDER, UNKNOWN Primary Care Unavailable ROBSON ZUNIGA Referring Unavailable ARTUR MENG Attending Unavailable PROVIDER, UNKNOWN Primary Care Unavailable PROVIDER, UNKNOWN Primary Care Unavailable DR DONALD SNOWDEN DO Primary Care Physician Unavail able Rey STEVE, Akhil Mandujano Unavailable Unavailable Avery BURNETT, Mera Unavailable BRIDGET RAO, DR FIGUEROA Attending Unavailab alon SNOWDEN DO, DR VELEZ Primary Care Unavailable Donald Snowden DO Primary Care Provider [phone] Robson Zuniga MD Unavailable Charu Baker Primary Care Provider Donte COPING MACHINE ASSEMBLER.FINANCIAL SERVICES SPECIALIST, Krystle Unavailable BENI, CHASE Attending Unavailable KOHARA, DONALD Primary Care Unavailable BENI, CHASE Attending Unavailable KOHARA, DONALD Primary Care Unavailable BENI, CHASE Attending Unavailable KOHARA, DONALD Primary Care Unavailable BENI, CHASE Attending Unavailable KOHARA, DONALD Primary Care Unavailable BENI, CHASE Attending Unavailable KOHARA, DONALD Primary Care Unavailable BENI, CHASE Attending Unavailable KOHARA, DONALD Primary Care Unavailable Le DO, Dr. Charlie Emergency Provider Kohara, Donald Primary Care Provider [phone] Alon ACOSTA, Dr. Guerra Attending Provider Dr. Sharad Hansen MD Emergency Provider KOHROM, DONALD Primary Care Provider [phone] SUKUMAR WEINSTEIN Primary Care Unavailable Charlie Karimi Attending Unavailable Sharad Hansen Attending Unavailable [facility] Primary Care Unavailable [facility] Charu Primary Care Provider [facility] Primary Care Unavailable CARLOS SAUNDERS Attending Unavailable JHON, DR. VELEZ Primary Care Unavailable KOHARA, DR. VELEZ Primary Care Unavailable KOHARA, DR. VELEZ Primary Care Unavailable KOHARA, DR. VELEZ Primary Care Unavailable MULLIGAN, DYLAN B Referring Unavailable KOHARA, DONALD Primary Care Unavailable MULLIGAN, DYLAN B Referring Unavailable KOHARA, DONALD Primary Care Unavailable ROBSON ZUNIGA Attending Unavailable KOHARA, DONALD Primary Care Unavailable KOHARA, DONALD Primary Care Unavailable KOHARA, DONALD Primary Care Unavailable MULLIGAN, DYLAN B Referring Unavailable KOHARA, DONALD Primary Care Unavailable MULLIGAN, DYLAN B Attending Unavailable ARLENE PITTMAN Attending Unavailable KOHARA, DONALD Primary Care Unavailable DONTEKRYSTLE Attending Unavailable KOHARA, DONALD Primary Care Unavailable SELF Referring Unavailable DONTE, KRYSTLE Referring Unavailable KOHARA, DONALD Primary Care Unavailable SILKE COREA Attending Unavailable RAMIREZ PULIDO Attending Unavailable KOHARA, DONALD Primary Care Unavailable LYSSA MEAD Attending Unavailable KOHARA, DONALD Primary Care Unavailable Allergies Allergy Classification Reported Allergen(s) Allergy Type Date of Onset Reaction(s) Facility Aminoketones (1 source) buPROPion Drug Allergy 12-15-19 19 Diarrhea [facility] Cephalosporins (antibiotic) (6 sources) cefTRIAXone Drug Allergy 10-04-19 15 Hives, Anaphylaxis [facility] Dihydrofolate Reductase Inhibitors (antibiotic) (1 source) Trimethoprim Drug Allergy 04-20-19 20 [facility] Sulfamethoxazole / Trimethoprim (1 source) Sulfamethoxazole / Trimethoprim Drug Allergy 06-04-19 18 [facility] (11 sources) buPROPion Drug Allergy 12-15-19 19 Diarrhea [place], [place] (14 sources) cefTRIAXone; Translations: [ceftriaxone] Drug Allergy 10-04-19 15 Hives, Anaphylaxis [place], [place] (11 sources) Sulfamethoxazole / Trimethoprim Drug Allergy 06-04-19 18 Anaphylaxis [place], [place] (8 sources) Morphine Drug Allergy 08-11-19 22 Nausea And Vomiting [facility] (10 sources) Trimethoprim Drug Allergy 04-20-19 20 UNKNOWN [facility] (20 sources) cefTRIAXone; Translations: [CEFTRIAXONE SODIUM] Drug Allergy 05-13-19 17 Anaphylaxis [facility] Work Phone: (2 sources) Sulfamethoxazole Drug Allergy 07-11-19 24 UNKNOWN [facility] (1 source) cefTRIAXone Drug Allergy 10-06-19 25 [facility] (1 source) Sulfamethoxazole Drug Allergy 10-06-19 25 [facility] (1 source) Trimethoprim Drug Allergy 10-06-19 25 [facility] Medications Current Medications Medication Drug Class(es) [...] by mouth every 4 hours as needed. [id number] 200 actuat albuterol 0.09 mg/actuat metered dose inhaler (20 sources) beta2-Adrenergic Agonist Start: 12-07-2024 End: 01-06-2025 take 2 puff(s) by inhalation every four hours as needed for wheezing albuterol 108 (90 Base) MCG/ACT inhaler Inhale 2 puffs every 4 hours as needed for wheezing. 18 g 12/07/2024 01/06/2025 Active Start: 07-11-2023 End: 10-05-2024 Albuterol Sulfate (Proair Hf a) 90 mcg/actuation HFA aerosol inhaler Discontinued 2 NMA INHALATION Q4H as needed for shortness of breath or wheezing July 11, 2023 12:00am October 05, 2024 7:29pm Start: 05-12-2023 End: 06-21-2024 take 2 puff(s) [...] 3 09/25/2022 12/17/2022 Discontinued Start: 06-16-2022 End: 11-02-2024 take 3 mL by inhalation every four hours as needed for wheezing albuterol (PROVENTIL) 2.5 mg /3 mL (0.083 %) nebulizer solution Indications: Mild asthma, unspecified whether complicated, unspecified whether persistent (HCC) USE 3 ML VIA NEBULIZER EVERY 4 HOURS NEEDED FOR WHEEZING/SHORTNESS OF BREATH. INHALE BY NEBULIZER OVER 5-15 MINUTES. 375 mL 3 11/02/2024 Active Start: 04-17-2022 End: 06-16-2022 albuterol (PROVENTIL) [...] TAKE 2 PUFFS EVERY 6 HOURS NEEDED 01/14/2022 Active Start: 07-17-2021 take 2 puff(s) [...] Wheezing 1 Inhaler 5 07/05/2020 Active Start: 02-25-2019 Albuterol Sulf ate 18 GM HFA aerosol inhaler Active 2 NMA IH Q4H as needed for Asthma February 25, 2019 1:00am Start: 12-14-2018 take 2 puff(s) by in [...] 90 mcg/inh inhalation aerosol (1 source) Start: 04-11-2023 Albuterol (Eqv-ProAir HFA) 90 mcg/inh inhalation aerosol 0 Refill(s) Start Date: 04/11/23 Status: Ordered Blood-Glucose Meter (20 sources) Start: 10-28-2024 Blood-Glucose Meter Indications: Lightheaded , Hypoglycemia 1 each once daily. 1 each 10/28/2024 Active Start: 04-10-2023 End: 10-28-2024 Blood-Glucose Meter Indicati ons: Lightheaded , Hypoglycemia 1 Each once daily. 1 Each 04/10/2023 10/28/2024 Discontinued Start: 04-10-2023 Blood-Glucose Meter Indications: Lightheaded , Hypoglycemia 1 Each once daily. 1 Each 04/10/2023 Active Start: 04-10-2023 Blood-Glucose Meter Indications: Lightheaded , Hypoglycemia 1 Each once daily. 1 Each 0 04/10/2023 Active Comment on above: 1 Each once daily. Blood-Glucose Meter,Continuous (DEXCOM G6 HAT CONE INSPECTOR) misc (20 sources) Start: 04-22-2023 End: 11-06-2023 Blood-Glucose Meter,Continuous (DEXCOM G6 HAT CONE INSPECTOR) misc Indications: Hypoglycemia 1 Each once daily. 1 Each 04/22/2023 11/06/2023 Discontinued Start: 04-22-2023 Blood-Glucose Meter,Continuous (DEXCOM G6 HAT CONE INSPECTOR) misc Indications: Hypoglycemia 1 Each once daily. 1 Each 04/22/2023 Active Start: 04-22-2023 Blood-Glucose Meter,Continuous (DEXCOM G6 HAT CONE INSPECTOR) misc Indications: Hypoglycemia 1 Each once daily. 1 Each 0 04/22/2023 Active Comment on above: 1 Each once daily. Blood-Glucose Meter,Continuous (DEXCOM G7 HAT CONE INSPECTOR) misc (20 sources) Start: 06-02-2024 Blood-Glucose Meter,Continuous (DEXCOM G7 HAT CONE INSPECTOR) misc Indications: Reactive hypoglycemia Use as directed to monitor blood glucose 4-6 times per day. Reactive hypoglycemia [E16.1] 1 each 3 06/02/2024 Active Start: 11-06-2023 End: 06-02-2024 Blood-Glucose Meter,Continuo us (DEXCOM G7 HAT CONE INSPECTOR) misc Indications: Reactive hypoglycemia Use as directed to monitor blood glucose 4-6 times per day. Reactive hypoglycemia [E16.1] 1 Each 11/06/2023 06/02/2024 Discontinued Start: 11-06-2023 Blood-Glucose Meter,Continuous (DEXCOM G7 HAT CONE INSPECTOR) misc Indications: Reactive hypoglycemia Use as directed [...] per day. Reactive hypoglycemia [E16.1] 3 each 11 06/02/2024 Active Start: 11-06-2023 End: 06-02-2024 Blood-Glucose Sensor (DEXCOM G7 SENSOR) mallika Indications: Reactive hypoglycemia Use as directed to monitor blood glucose 4-6 times per day. Reactive hypoglycemia [E16.1] 3 Each 11/06/2023 06/02/2024 Discontinued Start: 11-06-2023 Blood-Glucose Sensor (DEXCOM G7 SENSOR) mallika Indications: Reactive hypoglycemia Use as directed to monitor blood glucose 4-6 times per day. Reactive hypoglycemia [E16.1] 3 Each 11 11/06/2023 Active budesonide 0.25 mg/ml inhalation suspension (20 sources) Corticosteroid Start: 07-11-2023 Budesonide 0.5 mg/2 mL suspension for nebulization Active 0.5 mg INHALATION Q12 July 11, 2023 12:00am Start: 06-05-2023 End: 02-12-2024 take 2 mL [...] Active cetirizine hydrochloride 10 mg oral tablet (7 sources) Histamine-1 Receptor Antagonist take 1 tablet by mouth in the morning cetirizine (ZyrTEC) 10 MG tablet Take 10 mg by mouth in the morning. Active 1 ml diphenhydrAMINE hydrochloride 50 mg/ml cartridge (1 source) Histamine-1 Receptor Antagonist Start: 08-10-2021 End: 06-24-2022 diphenhydrAMINE (BENADRYL) injection 12.5 mg doxycycline monohydrate [...] on above: Take 1 capsule by mo [facility] one time a week. Ethinyl Estradiol / Ferrous fumarate / Norethindrone (2 sources) Estrogen Start: 08-31-2018 take 1 tablet by mouth once daily 03/08 1-20 MG-MCG per tablet take 1 [...] with breakfast. Take 1 tablet by aleks th twice daily. TAKE 1 TABLET BY ALEKS TH TWICE A DAY Take 1 tablet by aleks th two times a day. fexofenadine hydrochloride 180 mg oral tablet (20 sources) Histamine-1 Receptor Antagonist Start: take 1 tablet by mouth once daily Fexofenadine (Laquita Allergy) 180 mg tablet Active 180 mg PO DAILY July 11, 2023 12:00am Start: 10-07-2018 fexofenadine ( LAQUITA) 180 MG tablet TAKE ONE TABLET EVERY [...] (FLONASE) 50 mcg/actuation nasal spray Use 1 Calvert in each nostril once daily. 1 Each 05/23/2023 Active Comment on above: Use 1 Calvert in each nostril once daily. 60 actuat fluticasone propionate 0.25 mg/actuat / salmeterol 0.05 mg/actuat dry powder inhaler (20 sources) Corticosteroid, beta2-Adrenergic Agonist Start: 12-19-19 take 1 puff(s) by inhalation twice daily [...] DAY. 180 Each 0 09/08/2023 Active Start: 07-11-2023 Fluticasone Pr opion-Salmeterol (Wixela Inhub) 250-50 mcg/dose blister with device Active 1 NMA INHALATION TWICE A DAY July 11, 2023 12:00am Start: 06-06-2023 End: 09-08-2023 take 1 puff(s) [...] Start: 08-22-2022 take 1 puff(s) by mo [facility] twice daily fluticasone-salmeterol (ADVAIR DISKUS) [...] on above: Take 3 tablets by mo [facility] once daily. 1 ml HYDROmorphone hydrochloride 1 [...] DAYS 1 mL 13 02/05/2024 Active Start: 07-11-2023 Mepolizumab (N ucala) 100 mg/mL auto-injector Active 100 mg SC EVERY MONTH July 11, 2023 12:00am Start: 02-05-2023 Nucala Prefill ed Autoinjector 100 mg/mL subcutaneous solution Dose : 100 mg =, Subcutaneous, q4wk, # 1 mL, 0 Refill(s) Start Date: 04/11/23 Status: Ordered Start: 10-30-2022 mepolizumab (N UCALA) 100 mg injection Indications: Pulmonary eosinophilia (HCC) , Late onset asthma, severe persistent, with status asthmaticus (HCC) Inject 100 mg subcutaneously every 4 weeks. 1 Each 10/30/2022 Active Comment on above: Inject 100 mg subcut aneously every 4 weeks. 24 hr metFORMIN hydrochloride 500 mg extended release oral tablet (20 sources) Biguanide Start: 025 take 2 tablets by mouth once daily at breakfast metFORMIN ER (GLUCOPHAGE XR) 500 mg 24 hr tablet Indications: Reactive hypoglycemia Take 2 tablets by mouth daily with breakfast. 10/29/2024 Active Start: 04-29-2023 End: 06-02-2025 take 1 tablet by mouth three times daily at mealtime metFORMIN ER (GLUCOPHAGE XR) 500 mg 24 hr tablet Indications: Reactive hypoglycemia Take 1 tablet by mouth three times a day with meals. 270 tablet 3 06/02/2024 10/29/2024 Discontinued (Adjust Sig - Block E-Cancel) Comment on above: Take 1 tablet by aleks th three times a day with meals. montelukast 10 mg oral tablet (20 sources) Leukotriene Receptor Antagonist Start: 10-08-19 19 End: 09-15-19 25 take 1 tablet by mouth once daily montelukast (SINGULAIR) 10 mg tablet Indications: Mild intermittent asthma, uncomplicated (HCC) Take 1 tablet by mouth once daily. 90 tablet 1 09/14/2024 Active Comment on above: TAKE 1 TABLET BY ALEKS TH EVERY DAY FOR 90 DAYS Take 1 tablet by aleks th once daily. TAKE 1 TABLET BY ALEKS TH EVERY DAY mupirocin 0.02 mg/mg topical ointment (3 sources) RNA Synthetase Inhibitor Antibacterial Start: 08-26-19 End: 09-05-19 mupirocin (BACTROBAN) 2 % ointment Indications: Infected abrasion of right knee, initial encounter Apply to affected area three times a day for 10 days. 15 g 0 08/26/2023 09/05/2023 Active Nebulizer and Compressor For Neb (20 sources) Start: 04-19-19 Nebulizer and Compressor For Neb Indications: Mild [...] Active Comment on above: Use as directed 2 ml ondansetron 2 mg/ml injection (1 source) Serotonin-3 Receptor Antagonist Start: 2 End: 2 ondansetron (ZOFRAN) injection 4 mg oxyCODONE (1 source) Opioid Agonist Start: 2 End: 2 oxyCODONE (ROXICODONE) immediate release tablet 5 mg perflutren lipid microspheres (DEFINITY) injection 1.65 mg (1 source) Start: 0 End: 0 perflutren lipid microspheres (DEFINITY) injection 1.65 mg predniSONE 50 mg oral tablet (20 sources) Start: 5 End: 5 take 1 tablet by mouth once daily predniSONE (Deltasone) 50 MG tablet Take 1 tablet (50 mg) by mouth daily for 5 days. 5 tablet 12/07/2024 12/12/2024 Active Start: 06-05-2023 End: 03-09-2024 predniSONE (DELTASONE) 20 mg tablet 2 a day for 3 days 6 tablet 1 06/05/2023 03/09/2024 Discontinued (Course of therapy completed) Start: 11-24-2023 take 1 tablet by alesk once daily, then take 3 tablets by [...] on above: Take 2 tablets by mo [facility] once daily. Take 2 tablets by mo [facility] once daily for 5 days. 3 a [...] days 2 a day for 3 days Respiratory Therapy Supplies (NEBULIZER) MALLIKA (3 sources) Start: 09-23-19 15 Respiratory Therapy Supplies (NEBULIZER) MALLIKA Use as directed with soln q 6 hrs prn 1 Device 0 09/22/2014 Active Semaglutide (Weight Loss) [Semaglutide (Weight Loss) 1 Mg/0.5 Ml Subcutaneous Pen Injector] (1 source) Start: 10-06-19 25 Semaglutide (Weight Loss) [Semaglutide (Weight Loss) 1 Mg/0.5 Ml Subcutaneous Pen Injector] (Semaglutide (Weight Loss) 1 Mg/0.5 Ml Subcutaneous ) 1 mg/0.5 mL pen injector Active 1 mg SC EVERY WEEK October 05, 2024 12:00am semaglutide, weight loss, (WEGOVY) 1.7 mg/0.75 mL pen injector (9 sources) Start: 10-07-19 25 inject 1.7 mg by subcutaneous injection every week semaglutide, weight loss, (WEGOVY) 1.7 mg/0.75 mL pen injector Inject 1.7 mg subcutaneously one time a week. 3 mL 1 10/06/2024 Active 5 ml sodium chloride 9 mg/ml injection (11 sources) Start: 08-11-19 22 0.9 % sodium chloride bolus Start: 08-10-2021 [...] mg subcut aneously one time a week. traZODone hydrochloride 100 mg oral tablet (20 [...] 07-29-2020 acetaminophen (TYLENOL) tabl et 1,000 mg albuterol 0.833 mg/ml / ipratropium bromide 0.167 mg/ml inhalation solution (6 sources) Anticholinergic, beta2-Adrenergic Agonist Start: 12-07-2024 End: 12-07-2024 3 mL, Nebulization, Once, On Fri12/07/24 at 1335, For 1 dose Start: 01-01-2018 take 3 mL by inhalat ion every six hours as needed ipratropium-albuterol (DUONEB) 0.5-2.5 (3) MG/3ML SOLN nebulizer solution Inhale 3 mLs into the lungs every 6 hours as needed for Shortness of Breath 25 vial 0 01/01/2018 Active amoxicillin 500 mg oral tablet (12 sources) [...] on above: Take 1 tablet by aleks twice daily for 7 days. take 1 tablet by aleks th three times a day for 7 days 24 hr amphetamine aspartate 7.5 mg / amphetamine sulfate 7.5 mg / dextroamphetamine saccharate 7.5 mg / dextroamphetamine sulfate 7.5 mg extended release oral capsule (20 sources) Central Nervous System Stimulant Start: 06-09-19 End: 10-06-19 take 1 capsule by mouth once daily Dextroamphetamine-Am phetamine 30 mg capsule,extended release 24hr Discontinued 30 mg PO DAILY 0 July 11, 2023 12:00am October 05, 2024 7:29pm Start: 05-21-2023 End: 08-19-2023 take 1 capsule by mouth once daily amphetamine-dextroamphetamine XR (ADDERA LL XR) 15 mg capsule Indications: Attention deficit hyperactivity disorder (ADHD), predominantly inattentive type Take 1 capsule by mouth once daily for 30 days. 30 capsule 0 05/21/2023 08/19/2023 Discontinued (Course of therapy completed) Comment on above: Take 1 capsule by mo [facility] once daily for 30 days. ARIPiprazole 15 mg oral tablet (20 sources) Atypical Antipsychotic Start: 01-27-20 End: 05-01-19 23 take 1 tablet by mouth once daily ARIPiprazole (ABILIFY) 15 mg tablet TAKE 1 TABLET BY MOUTH EVERY DAY FOR 30 DAYS 0 01/26/2022 04/30/2022 Discontinued Start: 09-14-2019 End: 07-11-2023 take 1 tablet by mouth once daily ARIPiprazole (Abilify) 10 MG tablet Take 10 mg by mouth daily. 09/24/2021 Active Start: 11-20-2018 take 1 tablet by aleks once daily ARIPiprazole (ABILIFY) 5 MG tablet Take 1 tablet by mouth daily 30 tablet 3 11/20/2018 Active Comment on above: TAKE 1 TABLET BY ALEKS EVERY DAY FOR 30 DAYS aspirin 81 mg chewable tablet (3 sources) Platelet Aggregation Inhibitor, Nonsteroidal Anti-inflammatory Drug Start: 09-14-19 End: 07-11-19 24 take 1 tablet by mouth once daily Aspirin 81 MG tablet,chewable Discontinued 81 mg PO DAILY September 14, 2019 12:00am July 11, 2023 4:06pm benzonatate 100 mg oral capsule (13 sources) Non-narcotic Antitussive Start: 09-26-19 End: 11-27-19 23 take 2 capsules by mouth every eight hours as needed for cough and cough benzonatate (TESSALON PERLES) 100 mg capsule Indications: Cough, unspecified type Take 2 capsules by mouth every 8 hours as needed. 60 capsule 0 09/25/2022 11/26/2022 Discontinued (Other) Comment on above: Take 2 capsules by m outh every 8 hours as needed. Blood-Glucose Transmitter (DEXCOM G6 TRANSMITTER) mallika (20 sources) Start: 04-29-19 24 End: 06-03-19 Blood-Glucose Transmitter (DEXCOM G6 TRANSMITTER) mallika 1 [...] oral solution (16 sources) alpha-Adrenergic Agonist, Uncompetitive H-wzhsha-K-aspartate Receptor Antagonist, Sigma-1 Agonist Start: 4 End: 4 take 5 mL by mouth every six hours as needed Brompheniramine -Pseudoeph-DM (BROMFED DM) 2-30-10 mg/5 mL syrup Take 5 mL by mouth four times a day as needed. 118 mL 0 05/21/2023 06/20/2023 Start: 07-11-2022 End: 09-25-2022 take 5 mL by mouth every six hours as needed for cough and cough Safnmvovqptjjmd-Lqrtlvxdz-GN (BROMFED DM ) 2-30-10 mg/5 mL syrup [...] MCG/ACT inhaler 2 puffs 2 times daily. 11/28/2021 Active Start: 11-30-2020 take 2 puff(s) [...] times daily 3 Inhaler 1 12/14/2018 Active Start: 02-08-2016 End: 07-11-2023 Budesonide-Formoterol 1 INHA LER inhaler Discontinued 2 NMA inhalation TWICE A DAY February 08, 2016 1:00am July 11, 2023 4:06pm Comment on above: Inhale 2 Puffs as in structed twice daily. Inhale 2 Puffs as in structed two times a day. BUDESONIDE/FORMOTERO L FUMARATE (SYMBICORT INHALATION) (1 source) End: 04-02-19 BUDESONIDE/FORMOTERO L FUMARATE (SYMBICORT INHALATION) Inhale as instructed as needed. 0 04/02/2022 Discontinued Comment on above: Inhale as instructed as needed. cariprazine 3 mg oral capsule (20 sources) Atypical Antipsychotic Start: 12-03-19 End: 06-03-19 take 1 capsule by mouth once daily [...] 90 tablet 0 08/13/2023 08/19/2023 Discontinued Start: 10-07-2018 End: 05-20-2024 take 1 tablet by mouth once daily Citalopram 40 MG tablet Active 40 mg PO DAILY February 25, 2019 1:00am Comment on above: TAKE 1 TABLET BY [...] source) Nonsteroidal Anti-inflammatory Drug Start: 017 End: take 1 tablet by mouth every six [...] hours as needed for wheezing/shortness of breath. loratadine 10 mg oral capsule (2 sources) Start: End: take 1 capsule by mouth once daily Loratadine 10 MG capsule Discontinued 10 mg PO DAILY July 28, 2019 12:00am July 11, 2023 4:06pm lurasidone hydrochloride 80 mg oral tablet (20 [...] tablet (20 sources) Nonsteroidal Anti-inflammatory Drug Start: 11-26-2022 take 1 tablet by mouth once daily meloxicam (MOBIC) 7.5 mg tablet Take 1 tablet by mouth once daily. 30 tablet 2 11/26/2022 Active Start: 02-11-2022 End: 04-16-2023 take 1 tablet by mouth once daily meloxicam (MOBIC) 15 mg tablet Take 1 tablet by mouth once daily. 30 tablet 1 03/17/2023 04/16/2023 Comment on above: TAKE 1 TABLET BY ALEKS TH EVERY DAY IN THE MORNING Take 1 tablet by aleks th once daily. nitrofurantoin, macrocrystals 25 mg / nitrofurantoin, monohydrate 75 mg oral capsule (4 sources) Nitrofuran Antibacterial Start: 024 End: 025 take 1 capsule by mouth every twelve hours at mealtime Nitrofurantoin Monohyd/M-Cryst (Macrobid) 100 mg capsule Discontinued 100 mg PO Q12H 10 5 0 July 11, 2023 12:00am October 05, 2024 7:30pm must administer with a meal/food Start: 12-22-2018 End: 12-26-2018 take 1 capsule by mouth twice daily nitrofurantoin, macrocrystal-monohydrate , (MACROBID) 100 MG capsule Take 1 capsule by mouth 2 times daily for 7 doses 14 capsule 0 12/22/2018 12/26/2018 Active nystatin [id number] unt/ml oral suspension (6 sources) Polyene Antifungal Start: 01-28-2023 End: 04-10-2023 take 5 mL by mouth four times daily nystatin (MYCOSTATIN) 100,000 unit/mL suspension Take 5 mL by mouth four times daily. Swish and swallow. 60 mL 0 01/28/2023 04/10/2023 Discontinued Comment on above: Take 5 mL by mouth f our times daily. Swish and swallow. oseltamivir 75 mg oral capsule (2 sources) Neuraminidase Inhibitor Start: 05-23-2023 End: 05-28-2023 take 1 capsule by mouth twice daily oseltamivir (TAMIFLU) 75 mg capsule Take 1 capsule by mouth two times a day for 5 days. 10 capsule 0 05/23/2023 05/28/2023 Comment on above: Take 1 capsule by mo [facility] two times a day for 5 days. phentermine hydrochloride 37.5 mg oral tablet (1 source) Sympathomimetic Amine Anorectic Start: 11-26-2022 End: 12-06-2022 take 1 tablet by mouth once daily Phentermine HCl (ADIPEX-P) 37.5 mg tablet Indications: Abnormal weight gain Take 1 tablet by mouth once daily for 30 days. 1 po daily bmi 46 30 tablet 0 11/26/2022 12/06/2022 Discontinued Comment on above: Take 1 tablet by aleks once daily for 30 days. 1 po daily bmi 46 VIT CALC,IRON,FOLIC ( #2 ORAL) (1 source) End: 04-02-2022 take 1 tablet by mouth once daily VIT CALC,IRON,FOLIC ( #2 ORAL) Take 1 tablet by mouth once daily. 0 04/02/2022 Discontinued Comment on above: Take 1 tablet by aleks once daily. QUEtiapine 100 mg oral tablet (3 sources) Atypical Antipsychotic Start: 04-30-2022 take 1 tablet by mouth once daily at bedtime QUEtiapine (SEROQUEL) 100 mg tablet Take 1 tablet by mouth daily at bedtime. 90 tablet 1 04/30/2022 Active Comment on above: Take 1 tablet by aleks daily at bedtime. Respiratory Therapy Supplies (FULL KIT NEBULIZER SET) [facility] (5 sources) Start: 11-17-2017 Respiratory Therapy Supplies (FULL KIT NEBULIZER SET) [facility] Indications: Moderate persistent asthma with acute exacerbation Use every 6 hours as needed 1 each 0 11/17/2017 Suspended Start: 11-17-2017 Respiratory Th erapy Supplies (FULL KIT NEBULIZER SET) [facility] Indications: Moderate persistent asthma with acute exacerbation Use every 6 hours as needed 1 each 0 11/17/2017 Active semaglutide, weight loss, (WEGOVY) 1 mg/0.5 mL pen injector (10 sources) Start: 08-30-2024 End: 10-29-2024 inject 1 mg by subcutaneous injection every week semaglutide, weight loss, (WEGOVY) 1 mg/0.5 mL pen injector Inject 1 mg subcutaneously one time a week. 6 mL 1 08/30/2024 10/29/2024 Discontinued Start: 08-30-2024 inject 1 mg by subcu taneous injection every week semaglutide, weight loss, (WEGOVY) 1 mg/0.5 mL pen injector Inject 1 mg subcutaneously one time a week. 6 mL 1 08/30/2024 Active sertraline 100 mg oral tablet (1 source) Serotonin Reuptake Inhibitor End: 04-02-2022 take 1 tablet by mouth once daily sertraline (ZOLOFT) 100 mg tablet Take 100 mg by mouth once daily. 0 04/02/2022 Discontinued Comment on above: Take 100 mg by mouth once daily. tirzepatide, weight loss (ZEPBOUND) 2.5 mg/0.5 mL pen injector (20 sources) Start: 06-02-2024 End: 10-29-2024 tirzepatide, weight loss (ZEPBOUND) 2.5 mg/0.5 mL pen injector Indications: Reactive hypoglycemia , Class 3 severe obesity due to excess calories with serious comorbidity and body mass index (BMI) of 40.0 to 44.9 in adult (HCC) , Asthma, late onset, severe persistent, uncomplicated (HCC) Inject 2.5 mg subcutaneously one time a week. 2 mL 06/02/2024 10/29/2024 Discontinued Start: 06-02-2024 End: 06-02-2025 tirzepatide, weight loss (ZE PBOUND) 2.5 mg/0.5 mL pen injector Indications: Reactive hypoglycemia , Class 3 severe obesity due to excess calories with serious comorbidity and body mass index (BMI) of 40.0 to 44.9 in adult , Asthma, late onset, severe persistent, uncomplicated (HCC) Inject 2.5 mg subcutaneously one time a week. 2 mL 06/02/2024 06/02/2025 Active Start: 06-02-2024 End: 06-02-2025 [...] week. 2 mL 11 06/02/2024 06/02/2025 Active tirzepatide, weight loss (ZEPBOUND) 5 mg/0.5 mL pen injector (15 sources) Start: 07-21-2024 End: 10-29-2024 inject 5 mg by subcutaneous injection every week tirzepatide, weight loss (ZEPBOUND) 5 mg/0.5 mL pen injector Inject 5 mg subcutaneously one time a week. 2 mL 5 07/21/2024 10/29/2024 Discontinued Start: 07-21-2024 inject 5 mg by subcu taneous injection every week tirzepatide, weight loss (ZEPBOUND) 5 mg/0.5 mL pen injector Inject 5 mg subcutaneously one time a week. 2 mL 5 07/21/2024 Active valACYclovir 500 mg oral tablet (1 source) [...] Active Problems Problem Classification Problem Date Documented Date Episodic/Chronic Anxiety disorders (20 sources) Anxiety; Translations: [Anxiety disorder, unspecified] Onset: 03-20-2015 03-20-2015 Chronic Asthma (20 sources) Uncomplicated moderate persistent asthma; Translations: [Moderate persistent asthma, uncomplicated] Onset: 11-30-2014 Resolved: 11-30-2020 10-07-2018 Chronic Attention-deficit, conduct, and disruptive behavior disorders (1 source) Attention deficit hyperactivity disorder, predominantly inattentive type; Translations: [Attention-deficit hyperactivity disorder, predominantly inattentive type] 05-21-2023 Chronic Conditions associated with dizziness or vertigo (5 sources) Lightheadedness; Translations: [Dizziness and giddiness] Episodic E Codes: Natural/environment (1 source) Bitten or stung by nonvenomous insect and other nonvenomous arthropods, initial encounter; Translations: [Insect bite of left upper arm, initial encounter] Onset: 01-03-2023 Episodic Fluid and electrolyte disorders (3 sources) Hypokalemia; Translations: [Dehydration] Onset: 06-16-2022 4 Episodic Headache; including migraine (2 sources) Headache; Translations: [Headache] 09-04-2024 Episodic Headache; including migraine (1 source) Headache; including migraine; Translations: [Headache, unspecified] Onset: 09-09-2024 Hemorrhage during ; abruptio placenta; placenta previa (2 sources) Antepartum hemorrhage; Translations: [Hemorrhage in early , unspecified] 08-26-2019 Episodic Malaise and fatigue (6 sources) Fatigue; Translations: [Other fatigue] Onset: 03-20-2015 Resolved: 10-07-2018 10-07-2018 Episodic Miscellaneous mental health disorders (12 sources) Primary insomnia; Translations: [Primary insomnia] Onset: 11-30-2014 11-30-2014 Chronic Mood disorders (20 sources) Recurrent major depressive episodes, moderate ; Translations: [Major depressive disorder, recurrent, moderate] Onset: 03-20-2015 Resolved: 11-30-2020 11-16-2018 Chronic Nonspecific chest pain (3 sources) Chest wall pain; Translations: [Other chest pain] 08-06-2023 Episodic Nutritional deficiencies (1 source) Vitamin D deficiency; Translations: [Vitamin D deficiency, unspecified] Chronic Other aftercare (1 source) Encounter for other specified aftercare; Translations: [Visit for wound check] Onset: 01-03-2023 Episodic Other bone disease and musculoskeletal deformities (1 source) Costal chondritis; Translations: [Chondrocostal junction syndrome [Tietze]] 05-12-2024 Episodic Other connective tissue disease (1 source) Pain in right foot; Translations: [Pain in right foot] 11-26-2022 Episodic Other connective tissue disease (7 sources) Bilateral trochanteric bursitis; Translations: [Trochanteric bursitis, right hip] 10-13-2024 Episodic Other connective tissue disease (1 source) Trochanteric bursitis, right hip; Translations: [Trochanteric bursitis of both hips] Onset: 12-23-2024 Episodic Other connective tissue disease (1 source) Trochanteric bursitis, left hip; Translations: [Trochanteric bursitis of both hips] Onset: 12-23-2024 Episodic Other ear and sense organ disorders (1 source) Otalgia, right ear; Translations: [Otalgia, unspecified] Episodic Other endocrine disorders (8 sources) Hypoglycemia; Translations: [Hypoglycemia, unspecified] Onset: 04-11-2023 04-10-2023 Chronic Other endocrine disorders (20 sources) Reactive hypoglycemia; Translations: [Other hypoglycemia] Onset: 04-11-2023 04-13-2023 Chronic Other endocrine disorders (20 sources) Hypoadrenalism; Translations: [Unspecified adrenocortical insufficiency] Onset: 04-13-2023 04-13-2023 Chronic Other endocrine disorders (20 sources) Iatrogenic adrenal insufficiency; 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] Onset: 04-24-2023 04-24-2023 Chronic Other endocrine disorders (1 source) Hypoglycemia, unspecified; Translations: [Hypoglycemia, unspecified] Onset: 10-11-2024 Chronic Other endocrine disorders (1 source) Other hypoglycemia; Translations: [Reactive hypoglycemia] Onset: 04-13-2023 Chronic Other inflammatory condition of skin (1 source) Erythema of skin; Translations: [Erythematous condition, unspecified] 01-03-2023 Episodic Other injuries and conditions due to external causes (2 sources) Contusion; Translations: [Other injury of unspecified body region, initial encounter] 09-07-2024 Episodic Other lower respiratory disease (2 sources) Dyspnea; Translations: [Shortness of breath] Episodic Other lower respiratory disease (1 source) Wheezing; Translations: [Wheezing] Episodic Other lower respiratory disease (1 source) Asthma; Translations: [Eosinophilic asthma] 03-09-2024 Episodic Other nervous system disorders (1 source) Other chronic pain; Translations: [Chronic pain of right ankle] Onset: 06-03-2024 Chronic Other nervous system disorders (1 source) Cold extremity; Translations: [Unspecified disturbances of skin sensation] 10-13-2024 Episodic Other nervous system disorders (1 source) Unspecified disturbances of skin sensation; Translations: [Cold extremities] Onset: 12-23-2024 Episodic Other non-traumatic joint disorders (2 sources) Chronic ankle pain; Translations: [Pain in right ankle and joints of right foot] 06-03-2024 Episodic Other nutritional; endocrine; and metabolic [...] (BMI) of 40.0 to 44.9 in adult ([facility])] Onset: 06-02-2024 Chronic Other nutritional; endocrine; and metabolic disorders (1 source) Body mass index (BMI) 40.0-44.9, adult; Translations: [Class 3 severe obesity due to excess calories with serious comorbidity and body mass index (BMI) of 40.0 to 44.9 in adult ([facility])] Onset: 06-02-2024 Chronic Other nutritional; endocrine; and metabolic disorders (1 source) Abnormal weight gain; Translations: [Abnormal weight gain] 11-26-2022 Episodic Other screening for suspected conditions (not mental disorders or infectious disease) (4 sources) Thyroid hormone tests abnormal; Translations: [Other specified abnormal findings of blood chemistry] Onset: 04-10-2022 Episodic Other skin disorders (2 sources) Lesion of scalp; Translations: [Disorder of the skin and subcutaneous tissue, unspecified] 09-04-2024 Episodic Other skin disorders (8 sources) Mass of skin; Translations: [Localized swelling, mass and lump, unspecified] 09-07-2024 Episodic Other skin disorders (1 source) Finding of sensation of skin; Translations: [Other skin changes] 09-07-2024 Episodic Other skin disorders (1 source) Localized swelling, mass and lump, unspecified; Translations: [Mass of skin] Onset: 12-23-2024 Episodic Other skin disorders (1 source) Pilar cyst; Translations: [Pilar cyst] Onset: 12-01-2024 Episodic Other upper respiratory disease (12 sources) Allergic rhinitis; Translations: [Allergic rhinitis, unspecified] [...] Translations: [Otitis media, unspecified, right ear] Episodic Residual codes; unclassified (3 sources) Family history of other diseases of the musculoskeletal system and connective tissue; Translations: [Family history of other condition] Onset: 12-23-2024 09-07-2024 Episodic Spondylosis; intervertebral disc disorders; other back problems (20 sources) Chronic low back pain; Translations: [Low back pain] Onset: 07-12-2016 11-18-2016 Episodic Superficial injury; contusion (3 sources) Insect bite of upper limb; Translations: [Insect bite (nonvenomous) of left upper arm, initial encounter] Onset: 01-03-2023 01-03-2023 Episodic Syncope (6 sources) Vasovagal syncope; Translations: [Syncope] Episodic Thyroid disorders (2 sources) Justina thyroiditis; Translations: [Autoimmune thyroiditis] Chronic Unclassified (6 sources) Family history of scleroderma 09-07-2024 Unclassified (1 source) Finding of sensation of skin 09-07-2024 Unclassified (1 source) Class 3 severe obesity due to excess calories with serious comorbidity and body mass index (BMI) of 40.0 to 44.9 in adult (HCC); Translations: [Class 3 severe obesity due to excess calories with serious comorbidity and body mass index (BMI) of 40.0 to 44.9 in adult (HCC)] Onset: 06-02-2024 Urinary tract infections (5 sources) Acute cystitis; Translations: [Urinary tract infectious disease] 08-26-2019 Episodic Viral infection (20 sources) Herpes simplex of female genitalia; Translations: [Herpesviral infection of other urogenital tract] Onset: 07-18-2016 11-18-2016 Chronic Past or Other Problems Problem Classification Problem Date Documented Da te Episodic/Chronic Biliary tract disease (5 sources) Calculus of gallbladder with acute cholecystitis; Translations: [Calculus of gallbladder with acute cholecystitis without obstruction] Onset: 10-10-2014 Resolved: 10-07-2018 10-07-2018 Episodic Cardiac dysrhythmias (13 sources) Palpitations; Translations: [Palpitations] Onset: 2019 2019 Episodic Diabetes mellitus without complication (2 sources) Abnormal glucose level; Translations: [Other abnormal glucose] Onset: 05-26-2024 11-06-2023 Episodic Diabetes or abnormal glucose tolerance complicating ; childbirth; or the puerperium (9 sources) Gestational diabetes mellitus; Translations: [Gestational diabetes mellitus in , unspecified control] Onset: 06-01-2020 06-01-2020 Episodic Early or threatened labor (20 sources) False labor; Translations: [False labor, unspecified] Onset: 07-18-2016 Resolved: 08-06-2016 08-06-2016 Episodic Nutritional deficiencies (3 sources) Cobalamin deficiency; Translations: [Deficiency of other specified B group vitamins] Onset: 05-26-2024 11-06-2023 Episodic Other circulatory disease (13 sources) Orthostatic hypotension; Translations: [Dizziness and giddiness] [...] Onset: 09-24-2019 Resolved: 11-30-2020 09-24-2019 Episodic Other injuries and conditions due to external causes (1 source) Other injury of unspecified body region, initial encounter; Translations: [Bruising] Onset: 09-07-2024 Episodic Other lower respiratory disease (20 sources) [...] Translations: [Right ankle instability] Onset: 03-17-2023 Episodic Other non-traumatic joint disorders (1 source) Pain in right ankle and joints of right foot; Translations: [Chronic pain of right ankle] Onset: 06-03-2024 Episodic Other skin disorders (1 source) Other skin changes; Translations: [Skin sensitivity] Onset: 09-07-2024 Episodic Polyhydramnios and other problems of amniotic [...] [Post-operative state] Onset: 10-28-2014 Resolved: 11-13-2017 11-13-2017 Sprains and strains (14 sources) Sprain of right ankle; Translations: [Sprain of unspecified ligament of right ankle, initial encounter] Onset: 09-24-2019 Episodic Results Test Name Value Interpretation Reference Range Facility KALI BY IFA SCREENon 12-24-19 25 Nuclear Ab Ql (S) Negative Normal Negative [facility] Comment on above: Order Comment: Speci men Type: BLOOD SPECIMEN Ordering Facility: [facility] Address: [address] [place] [address] Result Comment: Anti -nuclear antibody test is used as an aid in diagnosis of systemic autoimmune diseases. Where positive and clinically warranted, follow-up using disease-specific testing is recommended. Low positive titers are not uncommon with advanced age, certain chronic infections, and malignancies among others. Test methodology: Indirect fluorescence immunoassay (IFA) using HEp-2 cells. Performed By: #### 2 132-9 #### [facility] CLIA [id number] [address] [place] [address] [place] Centromere Ab IF Ql (S)on Centromere Ab Qn (S) <0.2 Normal <1.0 [facility] Comment on above: Order Comment: Speci men Type: BLOOD SPECIMEN Ordering Facility: [facility] Address: [address] [place] [address] Result Comment: Anti -centromere antibody is used as in aid in diagnosis of systemic sclerosis. Clinical correlation is required. Test Methodology: Multiplex flow immunoassay. Performed By: #### 2 132-9 #### [facility] CLIA [id number] [address] [place] [address] [place] CENTROMERE AB QUAL Negative Normal Negative [facility] Comment on above: Order Comment: Jordan perry Type: BLOOD SPECIMEN Ordering Facility: [facility] Address: [address] [place] [address] Performed By: #### 2 132-9 #### [facility] CLIA [id number] [address] [place] [address] [place] SCL-70 extractable nuclear I gG IA Qn (S)on 12-23-2024 SCLERODERMA AB QUAL Negative Normal Negative [facility] Comment on above: Order Comment: Speci men Type: BLOOD SPECIMEN Ordering Facility: [facility] Address: [address] [place] [address] Performed By: #### 2 132-9 #### [facility] CLIA [id number] [address] [place] [address] [place] SCLERODERMA IGG AB <0.2 Normal <1.0 [facility] Comment on above: Order Comment: Jarrelli orlando Type: BLOOD SPECIMEN Ordering Facility: [facility] Address: [address] [place] [address] Result Comment: Scl- 70/Scleroderma antibody test is used as an aid in diagnosis of systemic sclerosis especially the diffuse cutaneous form. A negative result cannot rule out systemic sclerosis. The final interpretation should consider clinical picture and other test results such as anti-centromere antibody. Test Methodology: Multiplex flow immunoassay. Performed By: #### 2 132-9 #### [facility] CLIA [id number] [address] [place] [address] [place] TSH SerPl-aCncon 12-23-2024 TSH Qn 0.879 m[IU]/L Normal 0.270-4.200 [facility] Comment on above: Order Comment: Speci men Type: BLOOD SPECIMEN Ordering Facility: [facility] Address: [facility] [address] [address] Result Comment: If t he patient is , TSH reference range varies by gestational period: First Trimester (weeks 9-12): 0.180-2.990 mIU/L Second Trimester: 0.110-3.980 mIU/L Third Trimester: 0.480-4.710 mIU/L Dandre Welsh et al. A Practical Approach for the Verifications and Determination of Site- and Trimester-Specific Reference Intervals for Thyroid Function tests in . Thyroid, 2019:29:3:412-420. Himanshu Foy, et al. 2017 Guidelines of the [place] [employer] for the Diagnosis and Management of Thyroid Disease during and the . Thyroid, 2017:27:3:315-389. Performed By: #### 2 132-9 #### [facility] CLIA [id number] [address] [place] [address] [place] ED Nursing Noteon 12-07-2024 ED Nursing Note Pt ambulatory to jonnie 5 with c/o shortness of breath and cough x 3 days. Pt reports cough is non productive in nature. Pt states shortness of breath is increased with exertion and is not improve with use of breathing treatments at home and inhalers. Normal [facility] ED Provider Noteon ED Provider Note EMERGENCY DEPARTMENT ENCOUNTER Pt Name: Irvin Kline Birthdate 1990 Date of evaluation: 12/07/2024 ED Provider: Carlos Saunders DO CHIEF COMPLAINT Chief Complaint Patient presents with Shortness of Breath HISTORY OF PRESENT ILLNESS (Location/Symptom, Timing/Onset, Context/Setting, Quality, Duration, Modifying Factors, Severity) Note limiting factors. I wore appropriate PPE for the entirety of this encounter. HPI Irvin Kline is a 34 y.o. who presents to the emergency department with chief complaint of shortness of breath. Patient has a history of asthma and says that she typically has flares with weather changes. No recent sick contacts. Endorses dyspnea with a nonproductive cough and some chest tightness from coughing. Denies fevers, vomiting, other URI symptoms, calf pain or swelling. Nursing Notes were reviewed. Limitations to history: None Outside historians: None REVIEW OF SYSTEMS Review of Systems Pertinent positives and negatives as per HPI. PAST MEDICAL HISTORY Medical History[1] SURGICAL HISTORY Surgical History[2] CURRENT MEDICATIONS Previous Medications ALBUTEROL 108 (90 [...] puffs 2 times daily. ALLERGIES Bupropion, Ceftriaxone, Sulfamethoxazole-trim ethoprim, Morphine, and Trimethoprim FAMILY HISTORY Family History[3] SOCIAL HISTORY Social History[4] SCREENINGS [place] Coma Scale Best Eye Response: Spontaneous Best Verbal Response: Oriented Best Motor Response: Follows commands [place] Coma Scale Score: 15 PHYSICAL EXAM ED Triage Vitals [12/07/24 1326] Temp Heart Rate Resp BP 36.4 ?C (97.5 ?F) 63 18 101/66 SpO2 Temp Source Heart Rate Source Patient Position 100 % Oral -- Lying BP Location FiO2 (%) Right arm -- Physical Exam Vitals and nursing note reviewed. Constitutional: General: She is not in acute distress. Appearance: She is well-developed. She is not ill-appearing or toxic-appearing. HENT: Head: Normocephalic and atraumatic. Nose: Nose normal. Eyes: Extraocular Movements: Extraocular movements intact. Neck: Vascular: No JVD. Trachea: No tracheal deviation. Cardiovascular: Rate and Rhythm: Normal rate and regular rhythm. Pulses: Normal pulses. Heart sounds: Normal heart sounds. Pulmonary: Effort: Pulmonary effort is normal. No tachypnea, accessory muscle usage or respiratory distress. Breath sounds: Wheezing present. Chest: Chest wall: No tenderness or crepitus. Abdominal: Palpations: Abdomen is soft. Tenderness: There is no abdominal tenderness. Musculoskeletal: General: Normal range of motion. Cervical back: Normal range of motion and neck supple. Right lower leg: No tenderness. No edema. Left lower leg: No tenderness. No edema. Skin: General: Skin is warm and dry. Capillary Refill: Capillary refill takes less than 2 seconds. Neurological: General: No focal deficit present. Mental Status: She is alert. Mental status is at baseline. DIAGNOSTIC RESULTS Interpretation per the Radiologist below, if available at the time of this note: No orders to display ED BEDSIDE ULTRASOUND: Performed by ED Physician - none LABS: Labs Reviewed - No data to display All other labs were within normal range or not returned as of this dictation. EMERGENCY DEPARTMENT COURSE and DIFFERENTIAL DIAGNOSIS/MDM: Vitals: Vitals: 12/07/24 1326 BP: 101/66 BP Location: Right arm Patient Position: Lying Pulse: 63 Resp: 18 Temp: 36.4 ?C (97.5 ?F) TempSrc: Oral SpO2: 100% Weight: 94.8 kg (209 lb) Height: 1.626 m (5' 4") Diagnoses as of 12/07/24 1346 Mild asthma with exacerbation, unspecified whether persistent The patient presented with chief complaint of shortness of breath. The differential diagnosis associated with this patient's presentation includes asthma exacerbation, pneumothorax, pneumonia. Our workup consisted of ordering/reviewing: Medications. Patient is in agreement with this plan. Medications ipratropium-albuterol (Duo-Neb) 0.5-2.5 mg/3 mL nebulizer solution 3 mL (has no administration in time range) predniSONE (Deltasone) tablet 50 mg (has no administration in time range) REVAL: Patient presenting to the ED for shortness of breath and cough. Her vitals are reviewed and stable. She is saturating 100% on room air and does not have any increased work of breathing. She is conversational without dyspnea. She has wheezing in all lung dangelo. Suspect likely asthma exacerbation and low concern for pneumothorax or pneumonia given her equal lung sounds. She was treated with a DuoNeb and will be sta (more content not included)... Normal [facility] CNIsrael 12-01-2024 CNOV Office Visit (DERMST ) IRVIN KLINE ([id number]) 1990 F Date Time Provider Department 12/01/24 10:00 AM LYSSA MEAD During your visit today, we recorded the following information about you: Lyssa Mead PA-C 12/01/2024 10:37 AM Signed NEW PATIENT IRENE in Dermatology: Visit date not found Chief Complaint: LESION, SKIN History of Present Ilness: Irvin Kline is a 34 year old female who presents today for a focused skin examination. #1 Location: scalp Duration: years Symptoms: multiple raised areas Current Treatment: none Past Treatment: none Pertinent History: History of skin cancer: No History of atypical nevi: No History of immunosuppression/org an transplant: No , planning , or ? No Pertinent Family medical history: History of melanoma: No History of non melanoma skin cancer: No Past Medical History is reviewed. Medication List is reviewed. ROS: Skin as above. Physical Exam: The patient is a pleasant female in no apparent distress. Alert and oriented x 3. A skin exam performed of the scalp is significant for: Left Frontal Scalp, Right Occipital Scalp (2), Right Parietal Scalp Skin colored smooth, mobile subcutaneous nodule without overlying punctum Assessment and Plan: PILAR CYST (4) Left Frontal Scalp, Right Occipital Scalp (2), Right Parietal Scalp - Observational course. Will monitor at this time. Patient to return sooner if changes or elects removal in the future. Pilar (trichilemmal) cysts are common, benign cysts of hair follicle origin that are most often found on the scalp. They may present as solitary or multiple lesions. Educated and reassured of benign nature. No further intervention necessary at this time unless it becomes bothersome, enlarging, or otherwise changing. Treatment is by surgical excision. Follow up: as needed Intake completed by GALE Shane PA-C Allergies As of Date: 12/01/2024 Noted Allergy Reaction ROCEPHIN (CEFTRIAXONE SODIUM) 05/12/2016 10 - Anaphylaxis Comments: per pt mother was 3yo Date Reviewed: 12/01/2024 Reviewed by: Lyssa Mead PA-C - Fully Assessed Reason for Visit: LESION, SKIN [936] Primary Visit Diagnosis:Pilar cyst [L72.11] Prescriptions as of 12/01/2024 - albuterol HFA (PROVENTIL HFA, VENTOLIN HFA) 90 mcg/actuation inhaler INHALE 2 PUFFS INSTRUCTED EVERY 4 HOURS NEEDED FOR WHEEZING/SHORTNESS OF BREATH. - albuterol (PROVENTIL) 2.5 mg /3 mL (0.083 %) nebulizer solution USE 3 ML VIA NEBULIZER EVERY 4 HOURS NEEDED FOR WHEEZING/SHORTNESS OF BREATH. INHALE BY NEBULIZER OVER 5-15 MINUTES. - metFORMIN ER (GLUCOPHAGE XR) 500 mg 24 hr tablet Take 2 tablets by mouth daily with breakfast. - Blood-Glucose Meter 1 each once daily. - semaglutide, weight loss, (WEGOVY) 1.7 mg/0.75 mL pen injector Inject 1.7 mg subcutaneously one time a week. - montelukast (SINGULAIR) 10 mg tablet Take 1 tablet by mouth once daily. - lamoTRIgine (LAMICTAL) 100 mg tablet TAKE 1 TABLET BY MOUTH EVERYDAY AT BEDTIME - blood sugar diagnostic (BLOOD GLUCOSE TEST) test strip Use as instructed to check blood glucose level one time daily - Blood-Glucose Meter,Continuous (DEXCOM G7 HAT CONE INSPECTOR) misc Use as directed to monitor blood glucose 4-6 times per day. Reactive hypoglycemia [E16.1] - Blood-Glucose Sensor (DEXCOM G7 SENSOR) mallika Use as directed to monitor blood glucose 4-6 times per day. Reactive hypoglycemia [E16.1] - traZODone (DESYREL) 100 mg tablet take 1 tablet 1 time a day (at bedtime) - busPIRone (BUSPAR) 15 mg tablet Take 15 mg by mouth three times a day. - citalopram (CELEXA) 40 mg tablet Take by mouth once daily. - budesonide (PULMICORT) 0.5 mg/2 mL nebulizer solution USE 2 ML VIA NEBULIZER EVERY 12 HOURS. INHALE OVER 5-15 MINUTES - mepolizumab (NUCALA) 100 mg/mL auto-injector INJECT 1 PEN UNDER THE SKIN EVERY 28 DAYS - fluticasone-salmetero l (WIXELA INHUB) 250-50 mcg/dose inhaler INHALE 1 PUFF INSTRUCTED TWO TIMES A DAY. - fluticasone (FLONASE) 50 mcg/actuation nasal spray Use 1 Calvert in each nostril once daily. - levalbuterol tartrate HFA 45 mcg/actuation inhaler (Discontinued) Inhale 2 Puffs as instructed every 4 hours as needed for wheezing/shortness of breath. - Lancets lancets Use as instructed - ergocalciferol 50,000 unit capsule (VITAMIN D2, DRISDOL) Take 1 capsule by mouth one time a week. - ferrous sulfate 325 mg (65 mg iron) tablet Take 1 tablet by mouth two times a day. - albuterol HFA (PROAIR HFA) 90 mcg/actuation inhaler Inhale 2 Puffs as instructed every 6 hours as needed for wheezing/shortness of breath. - mepolizumab (NUCALA) 100 mg injection Inject 100 mg subcutaneously every 4 weeks. - Nebulizer and Compressor For Neb Use as directed - FEXOFENADINE HCL (LAQUITA ALLERGY ORAL) Take by mouth once d (more content not included)... Normal [facility] CNOVon 10-29-2024 CNOV Office Visit (ENDONO ) IRVIN KLINE ([id number]) 1990 F Date Time Provider Department 10/29/24 3:50 PM RAMIREZ PULIDO During your visit today, we recorded the following information about you: Temperature Pulse Respiration Blood pressure 97.9 degrees 83/minute 16/minute 107/72 Weight 100.4 kg Melanie Lagos RN 10/29/2024 3:48 PM Signed Ramirez Pulido MD 10/29/2024 4:33 PM Signed [facility] Follow-up visit Irvin Kline is here for follow-up regarding hypoglycemia: Last seen 06/02/2024 - Dr. Topete Recording using [employer] software for draft documentation of the visit was discussed with the patient/authorized new accounts representative; all questions welcomed and answered. Patient/authorized new accounts representative agreed to proceed HISTORY OF PRESENT ILLNESS: Irvin Kline is a 34 year old female with PMH of asthma, obesity class 3, reactive hypoglycemia, anxiety, depression who presents for hypoglycemia. Irvin reports experiencing recurrent hypoglycemic episodes, with the most recent episode occurring two nights ago when her blood glucose level dropped to 41 mg/dL. She was alerted by her continuous glucose monitor (CGM) and upon waking, felt lightheaded, dizzy, and shaky. She notes that her blood glucose levels have been fluctuating, with some days being stable and others experiencing significant drops. She mentions that her blood glucose levels have been normal today until the time of the visit, when she began feeling shaky again. POC checked here was in the 90s. Irvin recalls a recent episode where she was transported by EMS to [facility] due to hypoglycemia with a blood glucose level in the 60s mg/dL. Despite receiving orange juice, her blood glucose did not initially improve, and she experienced nausea and emesis. After consuming food, her blood glucose level increased to 91 mg/dL, and she was subsequently discharged. She notes that this episode occurred approximately 30-45 minutes after eating. Irvin reports that her hypoglycemic episodes began last year, with a significant episode occurring in March 2023, leading to a 2-3 day hospitalization. During this hospitalization, she was diagnosed with reactive hypoglycemia. She notes that her hypoglycemic episodes often occur after eating, despite following a diet of 5-6 small meals per day. She also experiences hypoglycemia after fasting for 8-10 hours. Her cortisol levels were found to be low likely due to inhaled steroid use but ACTH stim test was normal. Irvin is currently on Wegovy 1.7 mg, which she has not yet started, and metformin extended-release 500 mg, which she takes three times a day with meals. She has been on Celexa for several years for anxiety and depression. She also has prescriptions for budesonide and fluticasone inhalers for asthma, but she reports not using them regularly. She occasionally uses a flavored nicotine vape and denies alcohol use for over a year. She denies use of marijuana or other substances. Irvin has a family history of diabetes on her father's side, with her great-grandmother and grandmother affected. Her mother is pre-diabetic. Review of Systems Constitutional: Positive for fatigue and night sweats. Negative for recent unintentional weight change. HENT: Negative for trouble swallowing, postnasal drip and thyroid pain (lower neck). Eyes: Negative for visual disturbance. Respiratory: Negative for difficulty breathing. Cardiovascular: Negative for chest pain, leg swelling and claudication. Gastrointestinal: Negative for heartburn, nausea, vomiting, abdominal pain, diarrhea and constipation. Genitourinary: Positive for irregular menses. Negative for urgency, frequent urination, slower stream, menstruating and amenorrhea. Musculoskeletal: Positive for myalgias. Negative for muscle weakness and bone pain. Skin: Negative for skin color change. Neurological: Negative for dizziness, headaches and numbness. Endo/Heme/Allergies: Positive for polydipsia and hot flashes. Negative for cold intolerance when others are comfortable, heat intolerance when others are comfortable, flushing and changes in body hair. Answers submitted by the patient for this visit: Endocrine Review of Systems (Submitted on 10/29/2024) Blood Clots?: No Joint pain or stiffness: No PAST HISTORY: PAST MEDICAL HISTORY Diagnosis Date Anemia Asthma (HCC) Depression Generalized anxiety disorder PAST SURGICAL HISTORY Procedure Laterality Date NONE Current Outpatient Medications Medication Sig Dispense Refill semaglutide, weight loss, (WEGOVY) 1.7 mg/0.75 mL pen injector Inject 1.7 mg subcutaneously one time a week. 3 mL 1 montelukast (SINGULAIR) 10 mg tablet Take 1 tablet by mouth once daily. 90 tablet 1 lamoTRIgine (LAMICTAL) 100 mg tablet TAKE 1 TABLET BY MOUTH SETH (more content not included)... Normal [facility] Cherie 10-29-2024 [facility] Telephone (ENDONO) IRVIN KLINE ([id number]) 1990 F Date Time Provider Department 10/29/24 RAMIREZ PULIDO During your visit today, we recorded the following information about you: Pamela Sanchez LPN 10/29/2024 4:41 PM Signed Pended therapy plan. Please sign and then we will reach out to patient to schedule. Pamela Foy LPN [facility] Pamela Sanchez LPN 11/01/2024 11:48 AM Signed I tried calling patient to schedule testing but no answer. Left a voicemail with our office call back number. Pamela Foy LPN [facility] Pamela Sanchez LPN 11/04/2024 10:43 AM Signed Tried calling patient to schedule test, no answer. Left a detailed message on identifying vm with our call back number to return our call if she would like to schedule her MM. Pamela Foy LPN [facility] Altagracia Duval RN 11/04/2024 1:02 PM Signed Patient active on my chart, sent message. Altagracia GUTIERREZ RN [facility] Altagracia Duval RN 11/08/2024 10:34 AM Signed Attempted to contact patient, forwarded straight to . Left office number. Multiple attempts to reach patient. Altagracia GUTIERREZ, POWER [facility] Allergies As of Date: 10/29/2024 Noted Allergy Reaction ROCEPHIN (CEFTRIAXONE SODIUM) 05/12/2016 10 - Anaphylaxis Comments: per pt mother was 3yo Date Reviewed: 10/29/2024 Reviewed by: Melanie Lagos, RN - Fully Assessed Reason for Visit: Mixed Meal [Other] Prescriptions as of 11/08/2024 - albuterol (PROVENTIL) 2.5 mg /3 mL (0.083 %) nebulizer solution USE 3 ML VIA NEBULIZER EVERY 4 HOURS NEEDED FOR WHEEZING/SHORTNESS OF BREATH. INHALE BY NEBULIZER OVER 5-15 MINUTES. - metFORMIN ER (GLUCOPHAGE XR) 500 mg 24 hr tablet Take 2 tablets by mouth daily with breakfast. - Blood-Glucose Meter 1 each once daily. - semaglutide, weight loss, (WEGOVY) 1.7 mg/0.75 mL pen injector Inject 1.7 mg subcutaneously one time a week. - montelukast (SINGULAIR) 10 mg tablet Take 1 tablet by mouth once daily. - lamoTRIgine (LAMICTAL) 100 mg tablet TAKE 1 TABLET BY MOUTH EVERYDAY AT BEDTIME - albuterol HFA (PROVENTIL HFA, VENTOLIN HFA) 90 mcg/actuation inhaler INHALE 2 PUFFS INSTRUCTED EVERY 4 HOURS NEEDED FOR WHEEZING/SHORTNESS OF BREATH. - blood sugar diagnostic (BLOOD GLUCOSE TEST) test strip Use as instructed to check blood glucose level one time daily - Blood-Glucose Meter,Continuous (DEXCOM G7 HAT CONE INSPECTOR) misc Use as directed to monitor blood glucose 4-6 times per day. Reactive hypoglycemia [E16.1] - Blood-Glucose Sensor (DEXCOM G7 SENSOR) mallika Use as directed to monitor blood glucose 4-6 times per day. Reactive hypoglycemia [E16.1] - traZODone (DESYREL) 100 mg tablet take 1 tablet 1 time a day (at bedtime) - busPIRone (BUSPAR) 15 mg tablet Take 15 mg by mouth three times a day. - citalopram (CELEXA) 40 mg tablet Take by mouth once daily. - budesonide (PULMICORT) 0.5 mg/2 mL nebulizer solution USE 2 ML VIA NEBULIZER EVERY 12 HOURS. INHALE OVER 5-15 MINUTES - mepolizumab (NUCALA) 100 mg/mL auto-injector INJECT 1 PEN UNDER THE SKIN EVERY 28 DAYS - fluticasone-salmetero l (WIXELA INHUB) 250-50 mcg/dose inhaler INHALE 1 PUFF INSTRUCTED TWO TIMES A DAY. - fluticasone (FLONASE) 50 mcg/actuation nasal spray Use 1 Calvert in each nostril once daily. - levalbuterol tartrate HFA 45 mcg/actuation inhaler (Discontinued) Inhale 2 Puffs as instructed every 4 hours as needed for wheezing/shortness of breath. - Lancets lancets Use as instructed - ergocalciferol 50,000 unit capsule (VITAMIN D2, DRISDOL) Take 1 capsule by mouth one time a week. - ferrous sulfate 325 mg (65 mg iron) tablet Take 1 tablet by mouth two times a day. - albuterol HFA (PROAIR HFA) 90 mcg/actuation inhaler Inhale 2 Puffs as instructed every 6 hours as needed for wheezing/shortness of breath. - mepolizumab (NUCALA) 100 mg injection Inject 100 mg subcutaneously every 4 weeks. - Nebulizer and Compressor For Neb Use as directed - FEXOFENADINE HCL (LAQUITA ALLERGY ORAL) Take by mouth once daily. Problem List As Of Date 10/29/2024 Noted Resolved Decreased movements in second trimester [...] Asthma, moderate persistent, poorly-controlled *09/26/2022 Pulmonary eosinophilia (HC (more content not included)... Normal [facility] GLUCOSE, BLOOD (POC)on 10-29 Glucose [Mass/Vol] 95 mg/dL 74 - 99 mg/dL [facility] Comment on above: Location:[facility], [address] [address], [place], [address] The Accu-Chek Inform II glucose meter has not been approved for testing on patients receiving intensive medical intervention or therapy and results from this point of care glucose test should not be used for patient management decisions in these cases. Inaccurate results may also occur from other interfering factors, such as N-acetylcysteine (blood concentrations of greater than 5mg/dL), galactose, extremes of hematocrit (<10 or >65), or high doses of ascorbic acid (vitamin C) greater than 3mg/dL. Consider alternate testing mechanisms (e.g. core lab, blood gas instrument) in the above situations. [facility] Cherie 10-27-2024 CNPN Telephone (WSTR) IRVIN KLINE ([id number]) 1990 F Date Time Provider Department 10/27/24 [facility] During your visit today, we recorded the following information about you: Keyona Ruiz RN 10/27/2024 10:08 AM Signed ----- Message from Suzette Morales PA-C sent at 10/13/2024 10:30 AM EDT ----- Regarding: FW: follow up new pt for you Please help arrange as new patient in 3-4 months for new patient, back pain family history of scleroderma. Plan is to follow up of skin biopsy of scalp lesions after she sees derm and consider MRI SI joints if the back pain worsens. Sorry I already forgot the name of your scheduling pool. ----- Message ----- From: Silke Corea MD Sent: 10/13/2024 10:26 AM EDT To: Suzette Morales PA-C Subject: follow up new pt for you Hi there! Please get her on your schedule in 3-4 months, new patient, back pain family history of scleroderma. Plan is to follow up of skin biopsy of scalp lesions after she sees derm and consider MRI SI joints if the back pain worsens. Sorry I already forgot the name of your scheduling pool. Keyona Ruiz RN 10/27/2024 10:09 AM Signed Patient called and scheduled. Keyona Ruiz RN Allergies As of Date: 10/27/2024 Noted Allergy Reaction ROCEPHIN (CEFTRIAXONE SODIUM) 05/12/2016 10 - Anaphylaxis Comments: per pt mother was 3yo Date Reviewed: 10/13/2024 Reviewed by: Simi Thomas MA - Fully Assessed Reason for Visit: Appointment [[id number]] Prescriptions as of 10/27/2024 - semaglutide, weight loss, (WEGOVY) 1.7 mg/0.75 mL pen injector Inject 1.7 mg subcutaneously one time a week. - montelukast (SINGULAIR) 10 mg tablet Take 1 tablet by mouth once daily. - semaglutide, weight loss, (WEGOVY) 1 mg/0.5 mL pen injector Inject 1 mg subcutaneously one time a week. - lamoTRIgine (LAMICTAL) 100 mg tablet TAKE [...] time daily - Blood-Glucose Meter,Continuous (DEXCOM G7 HAT CONE INSPECTOR) misc Use as directed to monitor blood [...] tablet Take by mouth once daily. - budesonide (PULMICORT) 0.5 mg/2 mL nebulizer solution USE 2 ML VIA NEBULIZER EVERY 12 HOURS. INHALE OVER 5-15 MINUTES - mepolizumab (NUCALA) 100 mg/mL auto-injector INJECT 1 PEN UNDER THE SKIN EVERY 28 DAYS - fluticasone-salmetero l (WIXELA INHUB) 250-50 mcg/dose inhaler INHALE 1 PUFF INSTRUCTED TWO TIMES A DAY. - fluticasone (FLONASE) 50 mcg/actuation nasal spray Use 1 Calvert in each nostril once daily. - levalbuterol [...] once daily. Problem List As Of Date 10/27/2024 Noted Resolved Decreased movements in second trimester [*05/12/2016 08/06/2016 Small for gestational age fetus affecting manag*06/17/2016 08/06/2016 Chronic bilateral low back pain without sciatic*07/12/2016 Herpes simplex of female genitalia [A60.09] 07/18/2016 False labor, antepartum [O47.9] 07/18/2016 08/06/2016 Poor growth affecting management of mothe*08/06/2016 08/09/2016 IUGR (more content not included)... Normal [facility] CNOVon 10-13-2024 CNOV Office Visit (RHEUMN ) IRVIN KLINE ([id number]) 1990 F Date Time Provider Department 10/13/24 10:00 AM SILKE COREA During your visit today, we recorded the following information about you: Temperature Pulse Blood pressure Weight 97.9 degrees 63/minute 125/56 100.7 kg Height 1.626 m Silke Corea MD 10/13/2024 10:37 AM Signed Rheumatology CONSULTATION Date of Service: 10/13/2024 Patient: Irvin Kline Medical Record: [id number] Primary Care Physician: Donald Snowden DO Last Rheumatology visit: None at [facility] Referring Provider: Krystle Kent [address] [place] [address] Chief Complaint: No chief complaint on file. Irvin Kline is here today at request of JANAY Kent specifically for consultation of my opinion in regards to the chief complaint listed above. Correspondence will be shared today via the [employer] electronic health record or through regular mail, where applicable. HISTORY OF PRESENT ILLNESS Irvin Kline is a 34-year-old female with a history of asthma, anxiety, depression, and reactive hypoglycemia, presenting for evaluation of multiple symptoms, including scalp nodules and back pain. Irvin reports multiple scalp nodules, initially noticed several years ago, with more recent nodules prompting an ED visit. A CT scan on 09/04/2024 revealed nodules containing calcification throughout the scalp, measuring up to 1 cm, most notably in the right occipital region. The nodules are non-tender unless bumped and have not been picked or drained. She expresses concern about a family history of scleroderma in her grandmother and requests testing. 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 The pain lasts until she lies down at night and is not associated with morning stiffness. Muscle relaxers provided temporary relief, but Tylenol and ibuprofen were ineffective. She denies other joint pain but notes hip pain when lying on her side at night. ROS: She experiences occasional headaches and denies pain in her hands, wrists, elbows, shoulders, knees, ankles, and feet. She reports drenching night sweats and difficulty initiating swallowing at times. She denies fevers, rashes, or photosensitivity. She reports her fingers and toes are always cold but denies color changes, sores, or a history of blood clots. She has a history of a right ankle fracture with subsequent surgery, resulting in weakness. She has a history of reactive hypoglycemia, managed with metformin and Wegovy, and uses a continuous glucose monitor. She denies a current diagnosis of adrenal insufficiency, stating her internet marketing assistant attributes her symptoms to reactive hypoglycemia. She has a family history of scleroderma and dry eyes in her grandmother, rheumatoid arthritis and fibromyalgia in her mother, and a myocardial infarction in her grandfather. Cancer and diabetes also run in her family. She vapes daily, denies cigarette use, and abstains from alcohol. She takes Laquita and denies other supplements or illicit drug use. She works at [employer] and has two children, ages 8 and 4. FMHx - Scleroderma (grandmother) - Rheumatoid arthritis (mother) - Fibromyalgia (mother) - Heart attack (grandfather) PMHx - Asthma - Anxiety - Depression - Reactive hypoglycemia PSHx - Two C-sections - Cholecystectomy - Oral surgery for impacted tooth - Right ankle surgery - Bilateral salpingectomy Social Hx - Tobacco use: Vapes daily - Alcohol use: Denies alcohol use - Number of children: 2 - Occupation: Works at [employer] Pain Evaluation 04/22/2023 05/08/2023 05/17/2023 08/07/2023 06/03/2024 Pain Evaluation Pain Score 5 0 2 0 5 Location Abdomen Ankle-Right Ankle-Right Description Sharp Sore;Stiffness Shooting Duration (Timeframe) Months Frequency Continuous Intermittent Intermittent Intervention Medication;Cold Relaxation;Reposition Data saved with a previous flowsheet row definition PATIENT-ENTERED DATA PROMIS Assessments 05/26/2024 09/06/2024 10/12/2024 PROMIS Assessments Physical Health Percentile 41 53 66 Mental Health Percentile 26 34 82 Pain Score 5 5 5 Pain Interference Percentile 42 Fatigue Percentile 42 Physical Function Percentile 69 RAPID 3 Isaac Activities of Daily Living 10/12/2024 11:52 AM Dress self? Without ANY difficulty Get in and out of bed? Without ANY difficulty Walk outdoors? Without ANY difficulty Wash and dry body? Without ANY difficulty Get in and out of car? Without ANY difficulty RAPID 3 Disease Activity Weighed Score Levels: 0 - 1: Near Remission 1.3 - 2.0: Low Severity 2.3 - 4.0: Moderate Severity 4.3 - 10.0: High Severity 10/12/2024 RAPID-3 Weighed Score RAPID 3 Weighed Score 0 (Minimal to no symptoms) Review of Systems CONSTITUTI (more content not included)... Normal [facility] Absolute lymphocyte countOrd ered By: Sharad Hansen on 10-05-2024 Lymphocytes Auto (Unsp spec) [#/Vol] 2.95 10*3/uL 0.83-4.51 [facility] Absolute neutrophil countOrd ered By: Sharad Hansen on 10-05-2024 Neutrophils (Bld) [#/Vol] 9.2 10*3/uL High 2.0-7.7 [facility] Anion gap in Serum or Plasma Ordered By: Sharad Hansen on 10-05-2024 Anion gap [Moles/Vol] 12 mmol/L - [facility] Automated lymphocyte count a s percentage of total leukocytesOrdered By: Sharad Hansen on 10-05-2024 Lymphocytes/100 WBC Auto (Unsp spec) 22.6 % [facility] BUN/creatinine ratioOrdered By: Sharad Hansen on 10-05-2024 Urea nitrogen/Creatinine [Mass ratio] 10.9 mg/mg - [facility] Basic Metabolic Profile (BMP )on 10-05-2024 BUN/CRE 10.9 RATIO Normal - [facility] Comment on above: Performed By: #### L 100.0100, L500.2500 #### [facility] [address] [place], [address] Calcium [Mass/Vol] 9.5 mg/dL Normal 7.6-11.0 [facility] [place] Comment on above: Performed By: #### L 100.0100, L500.2500 #### [facility] [address] [place], [address] Chloride [Moles/Vol] 106 mmol/L Normal 98-108 [facility] Comment on above: Performed By: #### L 100.0100, L500.2500 #### [facility] [address] [place], [address] CO2 [Moles/Vol] 23.7 mmol/L Normal 21.0-32.0 [facility] Comment on above: Performed By: #### L 100.0100, L500.2500 #### [facility] [address] [place], [address] Creatinine [Mass/Vol] 0.57 mg/dL Low 0.70-1.20 [facility] Comment on above: Performed By: #### L 100.0100, L500.2500 #### [facility] [address] [place], [address] ECRCL 162.07 ml/min Normal 50-250 [facility] Comment on above: Performed By: #### L 100.0100, L500.2500 #### [facility] [address] [place], [address] GAP 12 Normal 5-15 [facility] Comment on above: Performed By: #### L 100.0100, L500.2500 #### [facility] [address] [place], [address] GFR/1.73 sq M.predicted among non-blacks MDRD (S/P/Bld) [Vol rate/Area] 122 mL/min/{1.73_m2} Normal >60 [facility] Comment on above: Result Comment: mL/m in/1.73m2 CKD-EPI Creatinine Equation (2020) Performed By: #### L 100.0100, L500.2500 #### [facility] [address] [place], [address] Glucose [Mass/Vol] 69 mg/dL Low 70-99 [facility] [place] Comment on above: Performed By: #### L 100.0100, L500.2500 #### [facility] [address] [place], [address] Potassium [Moles/Vol] 3.9 mmol/L Normal 3.3-5.1 [facility] Comment on above: Performed By: #### L 100.0100, L500.2500 #### [facility] [address] [place], [address] Sodium [Moles/Vol] 141 mmol/L Normal 133-145 [facility] [place] Comment on above: Performed By: #### L 100.0100, L500.2500 #### [facility] [address] [place], [address] Urea nitrogen [Mass/Vol] 6 mg/dL Normal 4-19 [facility] Comment on above: Performed By: #### L 100.0100, L500.2500 #### [facility] [address] [place], [address] Basophil percentageOrdered B y: Sharad Hansen on 10-05-2024 Basophils/100 WBC (Bld) 0.3 % 0-[address] [facility] Bedside Glucoseon 10-05-2024 FINGERSTICK GLU 98 mg/dL Normal 74-106 [facility] Comment on above: Result Comment: SANTA GEMENT OF PATIENT CARE PER NURSING PROTOCOL Performed By: #### L 501.080 #### [facility] [address] [place], [address] FINGERSTICK GLU 85 mg/dL Normal 74-106 [facility] Comment on above: Result Comment: SANTA GEMENT OF PATIENT CARE PER NURSING PROTOCOL Performed By: #### L 501.080 #### [facility] [address] [place], [address] FINGERSTICK GLU 65 mg/dL Low 74-106 [facility] [facility] Comment on above: Result Comment: SANTA GEMENT OF PATIENT CARE PER NURSING PROTOCOL Performed By: #### L 501.080 #### [facility] [address] [place], [address] FINGERSTICK GLU 73 mg/dL Low 74-106 [facility] Comment on above: Result Comment: SANTA GEMENT OF PATIENT CARE PER NURSING PROTOCOL Performed By: #### L 501.080 #### [facility] [address] [place], [address] Bilirubin Test strip Ql (U)O rdered By: Sharad Hansen on 10-05-2024 Bilirubin Ql (U) Negative Negative [facility] CBC W/Diff, Automatedon 09-17 Absolute Lymph 2.95 X10 3/uL Normal 0.83-4.51 [facility] Comment on above: Performed By: #### L 100.0100, L500.2500 #### [facility] [address] [place], [address] Absolute Neut 9.2 X10 3/uL High 2.0-7.7 [facility] Comment on above: Performed By: #### L 100.0100, L500.2500 #### [facility] [address] [place], [address] Basophils/100 WBC (Bld) 0.3 % Normal 0-[address] [facility] Comment on above: Performed By: #### L 100.0100, L500.2500 #### [facility] [address] [place], [address] Eosinophils/100 WBC (Bld) 2.0 % Normal 0-5 [facility] Comment on above: Performed By: #### L 100.0100, L500.2500 #### [facility] [address] [place], [address] Erythrocyte distribution width (RBC) [Ratio] 13.8 % Normal 11.6-14.6 [facility] Comment on above: Performed By: #### L 100.0100, L500.2500 #### [facility] [address] [place], [address] Hematocrit (Bld) [Volume fraction] 37.9 % Normal 37-47 [facility] Comment on above: Performed By: #### L 100.0100, L500.2500 #### [facility] [address] [place], [address] Hemoglobin (Bld) [Mass/Vol] 12.2 g/dL Normal 12.0-15.0 [facility] Comment on above: Performed By: #### L 100.0100, L500.2500 #### [facility] [address] [place], [address] IG% 0.400 Normal 0.0-0.9 [facility] Comment on above: Result Comment: IG% - Immature Granulocytes (promyelocytes, myelocytes and metamyelocytes) > 1% indicates that a LEFT SHIFT is Present. Performed By: #### L 100.0100, L500.2500 #### [facility] [address] [place], [address] Lymphocytes/100 WBC (Bld) 22.6 % Normal 19-41 [facility] Comment on above: Performed By: #### L 100.0100, L500.2500 #### [facility] [address] [place], [address] MCH (RBC) [Entitic mass] 28.2 pg Normal 27.0-32.0 [facility] Comment on above: Performed By: #### L 100.0100, L500.2500 #### [facility] [address] [place], [address] MCHC (RBC) [Mass/Vol] 32.2 g/dL Normal 32-36 [facility] Comment on above: Performed By: #### L 100.0100, L500.2500 #### [facility] [address] [place], [address] MCV (RBC) [Entitic vol] 87.5 fL Normal 81-[address] [facility] Comment on above: Performed By: #### L 100.0100, L500.2500 #### [facility] [address] [place], [address] Monocytes/100 WBC (Bld) 4.7 % Normal 0-[address] [facility] Comment on above: Performed By: #### L 100.0100, L500.2500 #### [facility] [address] [place], [address] Neutrophils/100 WBC (Bld) 70.0 % Normal 47-70 [facility] Comment on above: Performed By: #### L 100.0100, L500.2500 #### [facility] [address] [place], [address] Nucleated RBC (Bld) [#/Vol] 0 10*3/uL Normal 0-5 [facility] Comment on above: Performed By: #### L 100.0100, L500.2500 #### [facility] [address] [place], [address] Platelet mean volume (Bld) [Entitic vol] 10.3 fL Normal 6.2-12.0 [facility] Comment on above: Performed By: #### L 100.0100, L500.2500 #### [facility] [address] [place], [address] Platelets (Bld) [#/Vol] 310 10*3/uL Normal 150-450 [facility] Comment on above: Performed By: #### L 100.0100, L500.2500 #### [facility] [address] [place], [address] RBC (Bld) [#/Vol] 4.33 10*6/uL Normal 4.2-5.4 [facility] Comment on above: Performed By: #### L 100.0100, L500.2500 #### [facility] [address] [place], [address] RDW SD 44.5 fl High 35.1-43.9 [facility] Comment on above: Performed By: #### L 100.0100, L500.2500 #### [facility] [address] [place], [address] WBC (Bld) [#/Vol] 13.1 10*3/uL High 4.4-11.0 [facility] Comment on above: Performed By: #### L 100.0100, L500.2500 #### [facility] [address] [place], [address] Carbon dioxide, total [Moles /volume] in Central venous bloodOrdered By: Sharad Hansen on 10-05-2024 CO2 [Moles/Vol] 23.7 mmol/L 21.0-32.0 [facility] Chloride assayOrdered By: Elbert Hansen on 10-05-2024 Chloride [Moles/Vol] 106 mmol/L 98-108 [facility] Emergency Department Summary on 10-05-2024 Emergency Department Summary [facility] Medical Records Department [address] [place] [address] Emergency Department Summary 10/05/24 MR#: [id number] Acct: [id number] Name: IRVIN KLINE Rep #: [id number] : 1990 34 From: Sharad Hansen MD PCP: DONALD SNOWDEN Status:DEP ER Location: ED HPI History of Present Illness Chief Complaint: Hypoglycemia Informant: patient and EMS Narrative Narrative: 34-year-old female presenting with hypoglycemia. She states she was feeling sort of weak and heavy feet all day, she has a Dexcom monitor because she states she has reactive hypoglycemia and it happens more often when she is on her menstrual cycle which she is on today. Her Dexcom was reading 91 and she was feeling really poorly and then a apparently she had a near syncopal episode where she collapsed at work and 911 was called. They checked her blood sugar and it was low in the 30s, they gave her some oral glucose is feeling little better now but still shaky. When her Dexcom was reading in the 120s here, our BGT had her in the 70s. She denies any recent illness or other symptoms. [facility] Medical History Anxiety Reactive hypoglycemia Asthma Home Medications ???Medication ???Instructions ???Recorded ???Last Taken ???Type albuterol sulfate 90 mcg/actuation 2 puff IH Q4H PRN Asthma 0 Unknown History aerosol inhaler citalopram 40 mg tablet 40 mg PO DAILY 02/25/19 Unknown Hi story budesonide 0.5 mg/2 mL suspension 0.5 mg inhalation Q12.TCU 4 Unknown History for nebulization fexofenadine 180 mg tablet 180 mg PO DAILY 07/11/23 Unknown H istory ([facility]ita Allergy) fluticasone 250 mcg-salmeterol 50 1 inh inhalation BID 07/11/23 Unk nown History mcg/dose blistr powdr for inhalation (Wixela Inhub) mepolizumab 100 mg/mL subcutaneous 100 mg subcut QMONTH 07/11/23 Un known History auto-injector (Nucala) metformin 500 mg tablet,extended 500 mg PO TID 07/11/23 Unknown His tory release 24 hr montelukast 10 mg tablet 10 mg PO DAILY 07/11/23 Unknown Hi story buspirone 15 mg tablet 15 mg PO TID 10/05/24 Unknown Hist ory lamotrigine 100 mg tablet 100 mg PO DAILY 10/05/24 Unknown H istory semaglutide (weight loss) 1 mg/0.5 1 mg subcut QWEEK 10/05/24 Unkno wn History mL subcutaneous pen injector (Wegovy) trazodone 100 mg tablet 100 mg PO QHS 10/05/24 Unknown His tory Allergy/AdvReac Type Severity Reaction Status Date / Time sulfamethoxazole (From Allergy Mild UNKNOWN Verified 10/05/24 19:29 Bactrim) trimethoprim (From Bactrim) Allergy Mild UNKNOWN Verified 10/05/24 19:29 ceftriaxone (From Rocephin) Allergy Hives Verified 10/05/24 19:29 Surgical History History of section History of cholecystectomy Social History Smoking Status: Never smoker alcohol intake: never ROS ROS ED Constitutional Constitutional ED: Reports malaise and weakness; Denies chills or fever(s) Eyes Eyes: Denies change in vision or diplopia ENT ENT ED: Denies rhinorrhea or sore throat Cardiovascular Cardiovascular: Denies chest pain or palpitations Respiratory/Chest Respiratory/Chest: Denies cough or dyspnea Gastrointestinal Gastrointestinal: Denies abdominal pain, diarrhea, nausea or vomiting Genitourinary Genitourinary ED: Denies dysuria or hematuria Musculoskeletal Musculoskeletal: Denies back pain or neck pain Integumentary Denies abscess or rash Neurologic Neurologic: Denies headache(s), paresthesias or weakness Psychiatric Psychiatric: Denies anxiety or suicidal thoughts EXAM Physical Exam Const Vital Signs: 10/05/24 19:31 10/05/24 19:34 10/05/24 21:00 Temperature 98.5 F Temperature Source Oral Pulse Rate 64 64 Respiratory Rate 18 18 Respiratory Effort Normal Non-Labored Respiratory Pattern Normal Blood Pressure 124/69 H 122/62 H Blood Pressure Mean 87 82 Pulse Ox 99 100 Oxygen Delivery Method Room Air Room Air 10/05/24 22:07 Temperature Temperature Source Pulse Rate 66 Respiratory Rate 18 Respiratory Effort Respiratory Pattern Blood Pressure 114/50 L Blood Pressure Mean 71 Pulse Ox 100 Oxygen Delivery Method Room Air Positive well nourished and well developed General Appearance ED: well developed and NAD HEENT Reports moist mucous membranes normocephalic and atraumatic Eyes PERRL and EOMs intact bilaterally Neck full ROM and supple Resp normal respiratory effort and clear to auscultation bilaterally Cardio regular rate, regular rhythm and no murmurs GI non-tender and non-distended Auscultation: normoactive bow (more content not included)... Normal [facility] Eosinophil percentageOrdered By: Sharad Hansen on 10-05-2024 Eosinophils/100 WBC (Bld) 2.0 % 0-5 [facility] Erythrocyte distribution wid th ratioOrdered By: Sharad Hansen on 10-05-2024 Erythrocyte distribution width (RBC) [Ratio] 13.8 % 11.6-14.6 [facility] Erythrocyte distribution wid th standard deviationOrdered By: Sharad Hansen on 10-05-2024 Erythrocyte distribution width (RBC) [Ratio] 44.5 fl High 35.1-43.9 [facility] Glomerular filtration rate ( GFR) estimation/1.73 sq m using serum, plasma, or whole bOrdered By: Sharad Hansen on 10-05-2024 GFR/1.73 sq M.predicted among non-blacks MDRD (S/P/Bld) [Vol rate/Area] 122 mL/min/{1.73_m2} >60 [facility] Comment on above: mL/min/1.73m2 CKD-EP I Creatinine Equation (2020) [facility] deOrdered By: Sharad Hansen on 10-05-2024 Glucose [Mass/Vol] 85 mg/dL 74-106 [facility] Comment on above: MANAGEMENT OF PATIEN T CARE PER NURSING PROTOCOL Hematocrit Auto (Bld) [Volum e fraction]Ordered By: Sharad Hansen on 10-05-2024 Hematocrit (Bld) [Volume fraction] 37.9 % 37-47 [facility] Hemoglobin measurementOrdere d By: Sharad Hansen on 10-05-2024 Hemoglobin (Bld) [Mass/Vol] 12.2 g/dL 12.0-15.0 [facility] Immature granulocytes/100 WB C Auto (Bld)Ordered By: Sharad Hansen on 10-05-2024 Immature granulocytes/100 WBC (Bld) 0.400 % 0.0-0.9 [facility] Comment on above: IG% - Immature Granu locytes (promyelocytes, myelocytes and metamyelocytes) > 1% indicates that a LEFT SHIFT is Present. Ketones Test strip Ql (U)Ord ered By: Sharad Hansen on 10-05-2024 Ketones Ql (U) Negative Negative [facility] MCV (mean corpuscular volume ) determinationOrdered By: Sharad Hansen on 10-05-2024 MCV (RBC) [Entitic vol] 87.5 fL 81-[address] [facility] Mean corpuscular hemoglobin (MCH) determinationOrdered By: Sharad Hansen on 10-05-2024 MCH (RBC) [Entitic mass] 28.2 pg 27.0-32.0 [facility] Mean corpuscular hemoglobin concentration (MCHC) determinationOrdered By: Sharda Hansen on 10-05-2024 MCHC (RBC) [Mass/Vol] 32.2 g/dL 32-36 [facility] Mean platelet volume determi nationOrdered By: Sharad Hansen on 10-05-2024 Platelet mean volume (Bld) [Entitic vol] 10.3 fL 6.2-12.0 [facility] Microscopic analysis of urin e for red blood cells (RBC)Ordered By: Sharad Hansen on 10-05-2024 Microscopic analysis of urine for red blood cells (RBC) 0-5 SEEN /hpf 0-5 [facility] Monocyte percentageOrdered B y: Sharad Hansen on 10-05-2024 Monocytes/100 WBC (Bld) 4.7 % 0-[address] [facility] Mucus LM Ql (Urine sed)Order ed By: Sharad Hansen on 10-05-2024 Mucus Ql (Urine sed) 0 SEEN /hpf [facility] Neutrophil percentageOrdered By: Sharad Hansen on 10-05-2024 Neutrophils/100 WBC (Bld) 70.0 % 47-70 [facility] Nitrite Test strip Ql (U)Ord ered By: Sharad Hansen on 10-05-2024 Nitrite Ql (U) Negative Negative [facility] Nucleated red blood cell per centageOrdered By: Sharad Hansen on 10-05-2024 Nucleated RBC/100 WBC (Bld) [Ratio] 0 % 0-5 [facility] Platelet countOrdered By: Elbert Hansen on 10-05-2024 Platelets (Bld) [#/Vol] 310 10*3/uL 150-450 [facility] Potassium measurement (mass/ volume)Ordered By: Sharad Hansen on 10-05-2024 Potassium (Unsp spec) [Mass/Vol] 3.9 mmol/L 3.3-5.1 [facility] ,Urineon 10-05-2024 Beta HCG ( test) Ql (U) Negative Normal [facility] Comment on above: Result Comment: Very dilute urine specimens, as indicated by a low specific gravity, may not contain new accounts representative levels of hCG. If is still suspected, a first morning urine specimen should be collected 48 hours later and tested. Performed By: #### L 400.0001, L400.7600 ####[facility] [address] [place], [address] Protein Test strip Ql (U)Ord ered By: Sharad Hansen on 10-05-2024 Protein Ql (U) Negative Negative [facility] RBC Auto (Bld) [#/Vol]Ordere d By: Sharad Hansen on 10-05-2024 RBC (Bld) [#/Vol] 4.33 10*6/uL 4.2-5.4 [facility] Serum creatinine measurement (mass/volume)Ordered By: Sharad Hansen on 10-05-2024 Creatinine [Mass/Vol] 0.57 mg/dL Low 0.70-1.20 [facility] Serum glucose measurement (m ass/volume)Ordered By: Sharad Hansen on 10-05-2024 Glucose [Mass/Vol] 69 mg/dL Low 70-99 [facility] Serum or plasma calcium berny urement (mass/volume)Ordered By: Sharad Hansen on 10-05-2024 Calcium [Mass/Vol] 9.5 mg/dL 7.6-11.0 [facility] Serum or plasma urea nitroge n measurement (mass/volume)Ordered By: Sharad Hansen on 10-05-2024 Urea nitrogen [Mass/Vol] 6 mg/dL 4-19 [facility] Sodium levelOrdered By: Dionicio Hansen on 10-05-2024 Sodium [Moles/Vol] 141 mmol/L 133-145 [facility] Squamous epithelial cells de tection in urine sediment by light microscopyOrdered By: Sharad Hansen on 10-05-2024 Epithelial cells.squamous LM Ql (Urine sed) 0-5 SEEN /hpf 5-10 [facility] Urinalysis, Completeon 10-05 EPI,SQUAMOUS 0-5 SEEN Normal 5-10 [facility] Comment on above: Order Comment: BHAVANA CTOR TO SPECIFY Performed By: #### L 400.0001, L400.7600 #### [facility] [address] [place], [address] RBC 0-5 SEEN Normal 0-5 [facility] Comment on above: Order Comment: BHAVANA CTOR TO SPECIFY Performed By: #### L 400.0001, L400.7600 #### [facility] [address] [place], [address] WBC 0-5 SEEN Normal 0-5 [facility] Comment on above: Order Comment: BHAVANA CTOR TO SPECIFY Performed By: #### L 400.0001, L400.7600 #### [facility] [address] [place], [address] BACTERIA 0 SEEN Normal None Seen [facility] Comment on above: Order Comment: BHAVANA CTOR TO SPECIFY Performed By: #### L 400.0001, L400.7600 #### [facility] [address] [place], [address] Mucus Ql (Urine sed) 0 SEEN Normal [facility] Comment on above: Order Comment: BHAVANA CTOR TO SPECIFY Performed By: #### L 400.0001, L400.7600 #### [facility] [address] [place], [address] Urine clarityOrdered By: Kell Hansen on 10-05-2024 Clarity (U) Clear Clear [facility] Urine color determinationOrd ered By: Sharad Hansen on 10-05-2024 Color (U) Straw Yellow [facility] Urine glucose detectionOrder ed By: Sharad Hansen on 10-05-2024 Glucose Ql (U) Normal mg/dl Normal [facility] Urine leukocyte esterase det ection by dipstickOrdered By: Sharad Hansen on 10-05-2024 Leukocyte esterase Test strip Ql (U) 25 /ul High Negative [facility] Urine pHOrdered By: Sharad Hansen on 10-05-2024 pH (U) 6.5 [pH] 5.0 - 8.0 [facility] Urine testOrdered By: Sharad Hansen on 10-05-2024 HCG ( test) Ql (U) Negative [facility] Comment on above: Very dilute urine sp ecimens, as indicated by a low specificgravity, may not contain new accounts representative levels of hCG. If is still suspected, a first morning urinespecimen should be collected 48 hours later and tested. Urine sediment bacteria coun t by microscopy (number/high power field)Ordered By: Sharad Hansen on 10-05-2024 Bacteria LM.HPF (Urine sed) [#/Area] 0 /[HPF] None Seen [facility] Urine specific gravity measu rementOrdered By: Sharad Hansen on 10-05-2024 Specific gravity (U) [Rel density] 1.010 1.002-1.030 [facility] Urine urobilinogen measureme ntOrdered By: Sharad Hansen on 10-05-2024 Urobilinogen Ql (U) Normal mg/dl Normal [facility] White blood cell (WBC) count Ordered By: Sharad Hansen on 10-05-2024 WBC (Bld) [#/Vol] 13.1 10*3/uL High 4.4-11.0 [facility] White blood cell countOrdere d By: Sharad Hansen on 10-05-2024 White blood cell count 0-5 SEEN /hpf 0-5 [facility] KALI BY IFA WITH REFLEXon Nuclear Ab Ql (S) Negative Normal Negative [facility] Comment on above: Order Comment: Speci men Type: BLOOD SPECIMEN Ordering Facility: [facility] Address: [address] [place], [place] [id number] Result Comment: Anti -nuclear antibody test is used as an aid in diagnosis of systemic autoimmune diseases. Where positive and clinically warranted, follow-up using disease-specific testing is recommended. Low positive titers are not uncommon with advanced age, certain chronic infections, and malignancies among others. Test methodology: Indirect fluorescence immunoassay (IFA) using HEp-2 cells. Performed By: #### 2 132-9 #### [facility] CLIA [id number] [address] [place] [address] [place] CBC W Auto Differential pane l (Bld)on 09-07-2024 Basophils (Bld) [#/Vol] 0.03 10*3/uL Normal <0.11 [facility] Comment on above: Order Comment: Speci men Type: BLOOD SPECIMENOrdering Facility: [facility] Address: [address] [place] [address] Performed By: #### 5 7021-8, 4537-7 ####[facility]CL[facility] [id number] [place] [address] [place] Basophils/100 WBC (Bld) 0.4 % Normal [facility] Comment on above: Order Comment: Speci men Type: BLOOD SPECIMENOrdering Facility: [facility] Address: [address] [place] [address] Performed By: #### 5 7021-8, 4537-7 ####[facility] [id number] [place] [address] [place] Differential cell count method Nom (Bld) Auto Normal [facility] Comment on above: Order Comment: Speci men Type: BLOOD SPECIMENOrdering Facility: [facility] Address: [address] [place] [address] Performed By: #### 5 7021-8, 4537-7 ####[facility]CLIA [id number] [place] [address] [place] Eosinophils (Bld) [#/Vol] 0.12 10*3/uL Normal <0.46 [facility] Comment on above: Order Comment: Speci men Type: BLOOD SPECIMENOrdering Facility: [facility] Address: [address] [place] [address] Performed By: #### 5 7021-8, 4537-7 ####[facility]CLIA [id number] [id number] [address] [place] Eosinophils/100 WBC (Bld) 1.4 % Normal [facility] Comment on above: Order Comment: Speci men Type: BLOOD SPECIMENOrdering Facility: [facility] Address: [address] [place] [address] Performed By: #### 5 7021-8, 7-7 ####[facility]CLIA [id number] [place] [address] [place] Erythrocyte distribution width (RBC) [Ratio] 13.9 % Normal 11.5-15.0 [facility] Comment on above: Order Comment: Speci men Type: BLOOD SPECIMENOrdering Facility: [facility] Address: [address] [place] [address] Performed By: #### 5 7021-8, 4536-7 ####[facility]CLIA [id number] [place] [address] [place] Hematocrit (Bld) [Volume fraction] 40.7 % Normal 36.0-46.0 [facility] Comment on above: Order Comment: Speci men Type: BLOOD SPECIMENOrdering Facility: [facility] Address: [address] [place] [address] Performed By: #### 5 7021-8, 4536-7 ####[facility]IA [id number] [place] [address] [place] Hemoglobin (Bld) [Mass/Vol] 12.8 g/dL Normal 11.5-15.5 [facility] Comment on above: Order Comment: Speci men Type: BLOOD SPECIMENOrdering Facility: [facility] Address: [address] [place] [address] Performed By: #### 5 7021-8, 7 ####[facility] LABCLIA [id number] [place] [id number] [place] Immature granulocytes (Bld) [#/Vol] 0.03 10*3/uL Normal <0.10 [facility] Comment on above: Order Comment: Speci men Type: BLOOD SPECIMENOrdering Facility: [facility] Address: [address] [place] [address] Performed By: #### 5 7021-8, 4537-7 ####[facility]CLIA [id number] [place] [address] [place] Immature granulocytes/100 WBC (Bld) 0.4 % Normal [facility] Comment on above: Order Comment: Speci men Type: BLOOD SPECIMENOrdering Facility: [facility] Address: [address] [place] [address] Performed By: #### 5 7021-8, 4536-7 ####[facility]CLIA [id number] [place] [address] [place] Lymphocytes (Bld) [#/Vol] 2.26 10*3/uL Normal 1.00-4.00 [facility] Comment on above: Order Comment: Speci men Type: BLOOD SPECIMENOrdering Facility: [facility] Address: [address] [place] [address] Performed By: #### 5 7021-8, 4536-7 ####[facility] LABCLIA [id number] [place] [address] [place] Lymphocytes/100 WBC (Bld) 26.5 % Normal [facility] Comment on above: Order Comment: Speci men Type: BLOOD SPECIMENOrdering Facility: [facility] Address: [address] [place] [address] Performed By: #### 5 7021-8, 4537-7 ####[facility] LABCLIA [id number] [place] [address] [place] MCH (RBC) [Entitic mass] 28.3 pg Normal 26.0-34.0 [facility] Comment on above: Order Comment: Speci men Type: BLOOD SPECIMENOrdering Facility: [facility] Address: [address] [place] [address] Performed By: #### 5 7021-8, 4536-7 ####[facility] LABCLIA [id number] [place] [address] [place] MCHC (RBC) [Mass/Vol] 31.4 g/dL Normal 30.5-36.0 [facility] Comment on above: Order Comment: Speci men Type: BLOOD SPECIMENOrdering Facility: [facility] Address: [address] [place] [address] Performed By: #### 5 7021-8, 7 ####[facility] LABCLIA [id number] [place] [address] [place] MCV (RBC) [Entitic vol] 89.8 fL Normal 80.0-100.0 [facility] Comment on above: Order Comment: Speci men Type: BLOOD SPECIMENOrdering Facility: [facility] Address: [address] [place] [address] Performed By: #### 5 7021-8, 7 ####[facility] LABCLIA [id number] [place] [address] [place] Monocytes (Bld) [#/Vol] 0.42 10*3/uL Normal <0.87 [facility] Comment on above: Order Comment: Speci men Type: BLOOD SPECIMENOrdering Facility: [facility] Address: [address] [place] [address] Performed By: #### 5 7021-8, 7 ####[facility] LABCLIA [id number] [place] [id number] [place] Monocytes/100 WBC (Bld) 4.9 % Normal [facility] Comment on above: Order Comment: Speci men Type: BLOOD SPECIMENOrdering Facility: [facility] Address: [address] [place] [address] Performed By: #### 5 7021-8, 4536-7 ####[facility] LABCLIA [id number] [place] [address] [place] Neutrophils (Bld) [#/Vol] 5.68 10*3/uL Normal 1.45-7.50 [facility] Comment on above: Order Comment: Speci men Type: BLOOD SPECIMENOrdering Facility: [facility] Address: [address] [place] [address] Performed By: #### 5 7021-8, 4536-7 ####[facility] LABCLIA [id number] [place] [address] [place] Neutrophils/100 WBC (Bld) 66.4 % Normal [facility] Comment on above: Order Comment: Speci men Type: BLOOD SPECIMENOrdering Facility: [facility] Address: [address] [place] [address] Performed By: #### 5 7021-8, 4536-7 ####[facility] LABIA [id number] [place] [address] [place] Nucleated RBC (Bld) [#/Vol] 10*3/uL Normal <0.01 [facility] Comment on above: Order Comment: Speci men Type: BLOOD SPECIMENOrdering Facility: [facility] Address: [address] [place] [address] Performed By: #### 5 7021-8, 7-7 ####[facility] LABIA [id number] [place] [address] [place] Nucleated RBC/100 WBC (Bld) [Ratio] 0.0 /100 WBC Normal [facility] Comment on above: Order Comment: Speci men Type: BLOOD SPECIMENOrdering Facility: [facility] Address: [address] [place] [address] Performed By: #### 5 7021-8, 7-7 ####[facility] LABCLIA [id number] [place] [address] [place] Platelet mean volume (Bld) [Entitic vol] 10.9 fL Normal 9.0-12.7 [facility] Comment on above: Order Comment: Speci men Type: BLOOD SPECIMENOrdering Facility: [facility] Address: [address] [place] [address] Performed By: #### 5 7021-8, 4537-7 ####[facility] LABCLIA [id number] [place] [address] [place] Platelets (Bld) [#/Vol] 265 10*3/uL Normal 150-400 [facility] Comment on above: Order Comment: Speci men Type: BLOOD SPECIMENOrdering Facility: [facility] Address: [address] [place] [address] Performed By: #### 5 7021-8, 4537-7 ####[facility] LABCLIA [id number] [place] [address] [place] RBC (Bld) [#/Vol] 4.53 10*6/uL Normal 3.90-5.20 [facility] Comment on above: Order Comment: Speci men Type: BLOOD SPECIMENOrdering Facility: [facility] Address: [address] [place] [address] Performed By: #### 5 7021-8, 4536-7 ####[facility] LABCLIA [id number] [place] [address] [place] WBC (Bld) [#/Vol] 8.54 10*3/uL Normal 3.70-11.00 [facility] Comment on above: Order Comment: Speci men Type: BLOOD SPECIMENOrdering Facility: [facility] Address: [address] [place] [address] Performed By: #### 5 7021-8, 7-7 ####[facility] LABCLIA [id number] [address] [address] [place] CNOVon 09-07-2024 CNOV Office Visit (WADS ) IRVIN KLINE ([id number]) 1990 F Date Time Provider Department 09/07/24 2:00 PM KRYSTLE KENT During your visit today, we recorded the following information about you: Temperature Pulse Blood pressure Weight 97.8 degrees 77/minute 106/73 100 kg Height Last Period 1.626 m 08/29/24 Krystle Kent APRN.FINANCIAL SERVICES SPECIALIST 09/07/2024 2:12 PM Signed Irvin Kline is a 34-year-old female presenting for evaluation of recurrent headaches and multiple scalp nodules. Headaches: - Frequent headaches prompting recent ER visit at [place] on Friday. - c/o hardened nodules on head - CT scan performed; results indicated calcium deposits. Scalp Nodules: - Multiple nodules on the scalp, some painful to touch. - Two nodules on the posterior scalp have been present for a while and are gradually enlarging. - Recently noticed additional nodules on the superior and lateral aspects of the scalp. - Reports that one nodule seems to have increased in size Scleroderma Concerns: - Family history of scleroderma in grandmother. - Expresses concern about the possibility of having scleroderma Bruising: - Reports easy bruising. - Experiences pain with minimal pressure on legs from son or dog. PAST MEDICAL HISTORY Diagnosis Date Anemia Asthma (HCC) PAST SURGICAL HISTORY Procedure Laterality Date NONE Allergies: ALLERGIES Allergen Reactions Rocephin [Ceftriaxo* Anaphylaxis per pt mother was 3yo Medications: semaglutide, weight loss, (WEGOVY) 1 mg/0.5 mL pen injector Inject 1 mg subcutaneously one time a week. lamoTRIgine (LAMICTAL) 100 mg tablet TAKE 1 TABLET BY MOUTH EVERYDAY AT BEDTIME albuterol HFA (PROVENTIL HFA, VENTOLIN HFA) 90 mcg/actuation inhaler INHALE 2 PUFFS INSTRUCTED EVERY 4 HOURS NEEDED FOR WHEEZING/SHORTNESS OF BREATH. blood sugar diagnostic (BLOOD GLUCOSE TEST) test strip Use as instructed to check blood glucose level one time daily Blood-Glucose Meter,Continuous (DEXCOM G7 HAT CONE INSPECTOR) misc Use as directed to monitor blood glucose 4-6 times per day. Reactive hypoglycemia [E16.1] Blood-Glucose Sensor (DEXCOM G7 SENSOR) mallika Use as directed to monitor blood glucose 4-6 times per day. Reactive hypoglycemia [E16.1] metFORMIN ER (GLUCOPHAGE XR) 500 mg 24 hr tablet Take 1 tablet by mouth three times a day with meals. traZODone (DESYREL) 100 mg tablet take 1 [...] PEN UNDER THE SKIN EVERY 28 DAYS fluticasone-salmetero l (WIXELA INHUB) 250-50 mcg/dose inhaler INHALE 1 PUFF INSTRUCTED TWO TIMES A DAY. fluticasone (FLONASE) 50 mcg/actuation nasal spray Use 1 Calvert in each nostril once daily. Lancets lancets Use as instructed Blood-Glucose Meter 1 Each once daily. albuterol (PROVENTIL) 2.5 mg /3 mL (0.083 %) nebulizer solution Use 3 mL via nebulizer every 4 hours as needed for wheezing/shortness of breath. Inhale by nebulizer over 5-15 minutes. albuterol HFA (PROAIR HFA) 90 mcg/actuation inhaler Inhale 2 Puffs as instructed every 6 hours as needed for wheezing/shortness of breath. Nebulizer and Compressor For Neb Use as directed FEXOFENADINE HCL (LAQUITA ALLERGY ORAL) Take by mouth once daily. tirzepatide, weight loss (ZEPBOUND) 5 mg/0.5 mL pen injector Inject 5 mg subcutaneously one time a week. tirzepatide, weight loss (ZEPBOUND) 2.5 mg/0.5 mL pen injector Inject 2.5 mg subcutaneously one time a week. (Patient not taking: Reported on 09/07/2024) [DISCONTINUED] levalbuterol tartrate HFA 45 mcg/actuation inhaler Inhale 2 Puffs as instructed every 4 hours as needed for wheezing/shortness of breath. ergocalciferol 50,000 unit capsule (VITAMIN D2, DRISDOL) Take 1 capsule by mouth one time a week. (Patient not taking: Reported on 09/07/2024) ferrous sulfate 325 mg (65 mg iron) tablet Take 1 tablet by mouth two times a day. (Patient not taking: Reported on 09/07/2024) mepolizumab (NUCALA) 100 mg injection Inject 100 mg subcutaneously every 4 weeks. (Patient not taking: Reported on 09/07/2024) Review of Systems Constitutional: Negative for appetite change, chills, diaphoresis, fatigue and fever. HENT: Negative for tinnitus. Eyes: Negative for photophobia and visual disturbance. Respiratory: Negative for cough, chest tightness, shortness of breath and wheezing. Cardiovascular: Negative for chest pain, palpitations and leg swelling. Gastrointestinal: Negative. Genitourinary: Negative. Musculoskeletal: Negative for myalgias. Skin: Negative for rash. (more content not included)... Normal [facility] ESR Westergren method (Bld) [Velocity]on 09-07-2024 ESR (Bld) [Velocity] 10 mm/h Normal 0-20 [facility] Comment on above: Order Comment: Speci men Type: BLOOD SPECIMENOrdering Facility: [facility] Address: [address] [place] [address] Performed By: #### 5 7021-8, 4537-7 ####[facility] LABCLIA [id number] [place] [address] [place] Rheumatoid fact SerPl-aCncon 09-07-2024 Rheumatoid factor Qn 11 [IU]/mL Normal <16 [facility] Comment on above: Order Comment: Speci men Type: BLOOD SPECIMEN [facility] Address: [address] [place] [address] Performed By: #### 2 132-9 #### [facility] LAB CLIA [id number] [address] [place] [address] [place] Brain/Head without Contrasto n 09-04-2024 Brain/Head without Contrast [facility] Imaging Services [address] [place] [address] Brain/Head without Contrast MR#: [id number] Acct: [id number] Name: IRVIN KLINE Rep #: [id number] : 1990 F 34 From: Kenyon Sheffield MD PCP: Donald Snowden Status: REG ER Study: Brain/Head without Contrast Date of Exam: 08/17 11/11 Exam# [id number] Ordering Dr: Charlie Karimi DO PROCEDURE: BRAIN/HEAD WITHOUT CONTRAST 09/04/2024 REASON FOR EXAM: HEADACHE TECHNIQUE: BRAIN/HEAD WITHOUT CONTRAST Coronal and Sagittal reconstruction series were provided. One or more dose reduction techniques were used (e.g., Automated exposure control, adjustment of the mA and/or kV according to patient size, use of iterative reconstruction technique. RADIATION DOSE SUMMARY: CTDlvol: 45 mGy DLP: 779 mGycm COMPARISON: None FINDINGS: Brain: No acute intracranial hemorrhage, mass effect, or midline shift CSF Spaces: Unremarkable Sinuses/Mastoids: Predominantly clear Bones: Unremarkable Scalp: There are several nodules in the scalp containing calcification, for example over the frontal bone measuring 8 mm (sagittal image 33) and in the right occipital region measuring up to 1.0 cm (series 2, image 10). CT/Brain/Head without Contrast IMPRESSION: 1. Nodules containing calcification throughout the scalp measuring up to 1.0 cm in size, most notably in the right occipital region. Differential includes pilar cysts, epidermal inclusion cyst, or other neoplasm. Recommend clinical follow-up. 2. No acute intracranial abnormality. Reading Location: [facility] CC: Donald Snowden; Dr. Charlie Karimi DO Department Of Mathematics Chair: Signed Normal [facility] Emergency Department Summary on 09-04-2024 Emergency Department Summary [facility] Medical Records Department [address] [place] [address] Emergency Department Summary 09/04/24 MR#: [id number] Acct: [id number] Name: IRVIN KLINE Rep #: [id number] : 1990 34 From: Charlie Deluca PCP: Donald Snowden Status:DEP ER Location: ED HPI History of Present Illness Chief Complaint: Headache Informant: patient Narrative Narrative: Nontraumatic frontal headache for last few weeks on and off. Reports chronic bumps on back for head in the right side for years that is painful. Reports clogging to the left ear. History of seasonal allergies on medications. Patient left work today due to symptoms. No fevers. No visual changes. No photophobia or phonophobia. No nausea or vomiting. Prior similar symptoms: No PFSH PFSH Medical History Reactive hypoglycemia Asthma Home Medications ???Medication ???Instructions ???Recorded ???Last Taken ???Type albuterol sulfate 90 mcg/actuation 2 puff IH Q4H PRN Asthma 0 Unknown History aerosol inhaler citalopram 40 mg tablet 40 mg PO DAILY 02/25/19 Unknown Hi story albuterol sulfate 90 mcg/actuation 2 inh inhalation Q4H PRN shortne ss 07/11/23 Unknown History aerosol inhaler (ProAir HFA) of breath or wheezing budesonide 0.5 mg/2 mL suspension 0.5 mg inhalation Q12.TCU 4 Unknown History for nebulization dextroamphetamine-amp hetamine ER 30 mg PO DAILY 07/11/23 Unknown Hi story 30 mg 24hr capsule,extend release fexofenadine 180 mg tablet 180 mg PO DAILY 07/11/23 Unknown H istory (Laquita Allergy) fluticasone 250 mcg-salmeterol 50 1 inh inhalation BID 07/11/23 Unk nown History mcg/dose blistr powdr for inhalation (Wixela Inhub) mepolizumab 100 mg/mL subcutaneous 100 mg subcut QMONTH 07/11/23 Un known History auto-injector (Nucala) metformin 500 mg tablet,extended 500 mg PO TID 07/11/23 Unknown His tory release 24 hr montelukast 10 mg tablet 10 mg PO DAILY 07/11/23 Unknown Hi story nitrofurantoin 100 mg PO Q12H 5 days #10 caps Unknown Rx monohydrate/macrocrys tals 100 mg capsule (Macrobid) Allergy/AdvReac Type Severity Reaction Status Date / Time sulfamethoxazole (From Allergy Mild UNKNOWN Verified 07/11/23 15:08 Bactrim) trimethoprim (From Bactrim) Allergy Mild UNKNOWN Verified 07/11/23 15:08 ceftriaxone (From Rocephin) Allergy Hives Verified 07/11/23 15:08 Surgical History History of section History of cholecystectomy Social History Smoking Status: Never smoker alcohol intake: never ROS ROS ED Constitutional Constitutional ED: Denies fever(s) ENT ENT ED: Reports other Details: Muffling to the left ear. Cardiovascular Cardiovascular: Denies chest pain Respiratory/Chest Respiratory/Chest: Denies cough Gastrointestinal Gastrointestinal: Denies diarrhea or vomiting Musculoskeletal Musculoskeletal: Denies none Integumentary Reports other Details: Painful bumps right side head. ; Denies rash or wounds Neurologic Neurologic: Reports headache(s); Denies weakness EXAM Physical Exam Const Vital Signs: 09/04/24 16:06 09/04/24 18:05 09/04/24 18:58 Temperature 98.0 F 98.2 F Temperature Source Oral Pulse Rate 68 71 71 Respiratory Rate 16 18 18 Blood Pressure 112/82 H 110/88 H 110/88 H Blood Pressure Mean 92 95 95 Pulse Ox 99 98 98 Oxygen Delivery Method Room Air Positive well nourished and well developed General Appearance ED: well developed and NAD HEENT Reports moist mucous membranes HEENT Narrative: Scalp with pea-sized nodules 1 in the right frontal and right parietal 2 in the occipital, no redness no drainage no fluctuance.. TMs were normal bilaterally. normocephalic and atraumatic Eyes General Eye ED: Yes normal appearance of both eyes Neck full ROM and no meningeal signs Chest Wall Chest: Negative for tenderness Resp normal respiratory effort and normal air movement Effort and Inspection: symmetric chest movement; Negative for respiratory distress Cardio regular rate, regular rhythm and no murmurs Peripheral Pulses: pulses 2+ throughout GI normal to inspection, nondistended, normoactive bowel sounds and non-tender Palpation: Negative for guarding or rebound tenderness present Extremity normal to inspection General Extremety ED: Negative for edema or tenderness General Extremity: Negative for edema Neuro oriented x3, CN's II-XII intact bilaterally and no sensory deficits noted Sensorium / Orientation: awake and alert Skin no rashes or lesions noted and no wounds MDM MDM MDM Narrative Medical decision making narrative: Interventions (more content not included)... Normal [facility] 08-26-2024 [facility] Telephone ([facility]) IRVIN KLINE ([id number]) 1990 F Date Time Provider Department 08/26/24 ROBSON ZUNIGA [facility] During your visit today, we recorded the following information about you: Chad Gore 08/26/2024 4:22 PM Signed Confirmation of Order for Nebulizer and supplies signed and faxed to [facility]. 2 documents sent to scanning. Chad [...] time daily - Blood-Glucose Meter,Continuous (DEXCOM G7 HAT CONE INSPECTOR) misc Use as directed to monitor blood [...] UNDER THE SKIN EVERY 28 DAYS - fluticasone-salmetero l (WIXELA INHUB) 250-50 mcg/dose inhaler INHALE 1 PUFF INSTRUCTED TWO TIMES A DAY. - fluticasone (FLONASE) 50 mcg/actuation nasal spray Use 1 Calvert in each nostril once daily. - levalbuterol [...] Encounter Status:Closed by CHAD GORE on 08/26/24 [facility]LINE ([id number]) 1990 F Date Time Provider Department 08/06/24 STACIE HARRIS During your visit today, we recorded the following information about you: Molly Arana 08/12/2024 9:00 AM Addendum Called to schedule new patient appointment, [facility] Molly Arana August 06, 2024 9:58 AM Called and [facility] Molly Arana August 12, 2024 9:00 AM Allergies As of Date: 08/06/2024 Noted Allergy Reaction ROCEPHIN (CEFTRIAXONE SODIUM) 05/12/2016 10 - Anaphylaxis Comments: per pt mother was 3yo Date Reviewed: 06/03/2024 Reviewed by: Ayala Dunlap LPN - Fully Assessed Reason for Visit: Appointment [186] Cmt: Called to schedule new patient appointment, [facility] Prescriptions as of 08/12/2024 - lamoTRIgine [...] time daily - Blood-Glucose Meter,Continuous (DEXCOM G7 HAT CONE INSPECTOR) misc Use as directed to monitor blood [...] UNDER THE SKIN EVERY 28 DAYS - fluticasone-salmetero l (WIXELA INHUB) 250-50 mcg/dose inhaler INHALE 1 PUFF INSTRUCTED TWO TIMES A DAY. - fluticasone (FLONASE) 50 mcg/actuation nasal spray Use 1 Calvert in each nostril once daily. - levalbuterol [...] Encounter Status:Closed by MOLLY ARANA on 08/06/24 [facility] Cherie 06-29-2024 [facility] Telephone (PULMGR) IRVIN KLINE ([id number]) 1990 F Date Time Provider Department 06/29/24 ROBSON ZUNIGA PULMGR During your visit today, we recorded the following information about you: Liliya Mondragon 06/29/2024 11:27 AM Signed IRVIN KLINE (Isaac: [id number]) Need Help? Call us at Status Sent to Plan today Drug Nucala 100MG/ML auto-injectors Form [employer] Electronic PA Form (2016 [facility] Cuca Rios MA 06/30/2024 9:29 AM Signed IRVIN KLINE (Isaac: [id number]) PA Need Help? Call us at Outcome Approved on June 29 by [employer] [facility] 2016 Your PA request has been approved. Additional information will be provided in the approval communication. (Message 0628) Effective Date: 06/29/2024 Authorization Expiration Date: 06/29/2025 Drug Nucala 100MG/ML auto-injectors Form [employer] Electronic PA Form (2016 [place] Allergies As of Date: 06/29/2024 Noted Allergy Reaction ROCEPHIN (CEFTRIAXONE SODIUM) 05/12/2016 10 - Anaphylaxis Comments: per pt mother was 3yo Date Reviewed: 06/03/2024 Reviewed by: Ayala Dunlap LPN - Fully Assessed Reason for Visit: Insurance Authorization [1693] Cmt: Nucala PA Prescriptions as of 06/30/2024 - albuterol HFA (PROVENTIL HFA, VENTOLIN HFA) 90 mcg/actuation inhaler INHALE 2 PUFFS INSTRUCTED EVERY 4 HOURS NEEDED FOR WHEEZING/SHORTNESS OF BREATH. - blood sugar diagnostic (BLOOD GLUCOSE TEST) test strip Use as instructed to check blood glucose level one time daily - Blood-Glucose Meter,Continuous (DEXCOM G7 HAT CONE INSPECTOR) misc Use as directed to monitor blood [...] UNDER THE SKIN EVERY 28 DAYS - fluticasone-salmetero l (WIXELA INHUB) 250-50 mcg/dose inhaler INHALE 1 PUFF INSTRUCTED TWO TIMES A DAY. - lamoTRIgine (LAMICTAL) 100 mg tablet TAKE 1 TABLET BY MOUTH EVERYDAY AT BEDTIME - fluticasone (FLONASE) 50 mcg/actuation nasal spray Use 1 Calvert in each nostril once daily. - levalbuterol [...] 04/12/2023 Adren (more content not included)... Normal [facility] CNOVon 06-03-2024 CNOV Office Visit (PODIWS ) IRVIN KLINE ([id number]) 1990 F Date Time Provider Department 06/03/24 9:15 AM [facility] During your visit today, we recorded the following information about you: Ayala Dunlap LPN 06/03/2024 9:18 AM Signed AMB ROOMING INTAKE FLOWSHEET DATA Pain Pain Level: 5 Pain Location: Ankle-Right Description: Shooting Duration Units: Months Frequency: Intermittent Intervention/Comfort measure: Relaxation, Reposition Patient presents with: Right Ankle - Follow Up, Pain, Established Patient, Weakness Ayala Dunlap LPN Arlene Pittman 06/03/2024 9:14 AM Signed A right ankle [...] lateral aspect of the ankle, described as "shooting" when weight-bearing. 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 Attestation Recording using [employer] software for draft documentation of the visit was discussed with the patient/authorized new accounts representative; all questions welcomed and answered. Patient/authorized new accounts representative agreed to proceed MARQUEZ Lynne Amelia, LPN 06/03/2024 9:23 AM Signed Per Irvin Alberto was provided with active ankle brace, size L, and instructed/educated in its application, wear, and care. All questions (more content not included)... Normal [facility] 06-03-2024 [facility] Telephone (EMQ) IRVIN KLINE ([id number]) 1990 F Date Time Provider Department 06/03/24 DYLAN TOPETE During your visit today, we recorded the following information about you: Wiliam Lemon 06/03/2024 2:33 PM Signed Initiated PA for tirzepatide, weight loss (ZEPBOUND) 2.5 mg/0.5 mL through [employer] Questions Completed/attached notes Waiting for determination Wiliam Johnson Prior Paraprofessional Interpreter Endocrinology AND Metabolism [place] Kimberly Nixon MA 06/08/2024 7:54 AM Signed Received approval 06/03/2024 through 01/29/2025 Send for scanning. Kimberly Nixon MA Allergies As of Date: 06/03/2024 Noted Allergy Reaction ROCEPHIN (CEFTRIAXONE SODIUM) 05/12/2016 10 - Anaphylaxis Comments: per pt mother was 3yo Date Reviewed: 06/03/2024 Reviewed by: Ayala Dunlap LPN - Fully Assessed Reason for Visit: Insurance Authorization [2003] Cmt: (ZEPBOUND) 2.5 mg/0.5 mL Prescriptions as of 06/08/2024 - blood sugar diagnostic (BLOOD GLUCOSE TEST) test strip Use as instructed to check blood glucose level one time daily - Blood-Glucose Meter,Continuous (DEXCOM G7 HAT CONE INSPECTOR) misc Use as directed to monitor blood [...] UNDER THE SKIN EVERY 28 DAYS - fluticasone-salmetero l (WIXELA INHUB) 250-50 mcg/dose inhaler INHALE 1 PUFF INSTRUCTED TWO TIMES A DAY. - lamoTRIgine (LAMICTAL) 100 mg tablet TAKE 1 TABLET BY MOUTH EVERYDAY AT BEDTIME - fluticasone (FLONASE) 50 mcg/actuation nasal spray Use 1 Calvert in each nostril once daily. - levalbuterol [...] Encounter Status:Closed by KIMBERLY NIXON on 06/08/24 Normal [facility] CNOVon 06-02-2024 CNOV Office Visit (ENDTWN ) IRVIN KLINE ([id number]) 1990 F Date Time Provider Department 06/02/24 2:10 PM DYLAN TOPETE During your visit today, we [...] PEN UNDER THE SKIN EVERY 28 DAYS fluticasone-salmetero l (WIXELA INHUB) 250-50 mcg/dose inhaler INHALE 1 PUFF INSTRUCTED TWO TIMES A DAY. Blood-Glucose Sensor ([x+1] G7 SENSOR) mallika Use as directed to monitor blood glucose 4-6 times per day. Reactive hypoglycemia [E16.1] Blood-Glucose Meter,Continuous (DEXCOM G7 HAT CONE INSPECTOR) [facility] [place] Use as directed to monitor blood glucose [...] (FLONASE) 50 mcg/actuation nasal spray Use 1 Calvert in each nostril once daily. Lancets lancets [...] she is concerned about hypoglycemia unawareness - "I never know when I'm low" (more content not included)... Normal [facility] Comprehensive metabolic 2000 panelon 05-26-2024 Albumin [Mass/Vol] 3.8 g/dL Low 3.9-4.9 [facility] Comment on above: Order Comment: Jordan perry Type: BLOOD SPECIMEN [facility] Address: [address] [place] [address] Performed By: #### 2 4323-8 #### [facility] CLIA [id number] [address] [place] [address] [place] ALP [Catalytic activity/Vol] 109 U/L Normal 34-123 [facility] Comment on above: Order Comment: Jordan perry Type: BLOOD SPECIMEN [facility] Address: [address] [place] [address] Performed By: #### 2 4323-8 #### [facility] CLIA [id number] [address] [place] [address] [place] ALT [Catalytic activity/Vol] 19 U/L Normal 7-38 [facility] Comment on above: Order Comment: Speci men Type: BLOOD SPECIMEN [facility] Address: [address] [place] [address] Performed By: #### 2 4323-8 #### [facility] CLIA [id number] [address] [place] [address] [place] Anion gap [Moles/Vol] 8 mmol/L Normal 8-15 [facility] Comment on above: Order Comment: Speci men Type: BLOOD SPECIMEN [facility] Address: [address] [place] [address] Performed By: #### 2 4323-8 #### [facility] CLIA [id number] [address] [place] [address] [place] AST [Catalytic activity/Vol] 13 U/L Normal 13-35 [facility] Comment on above: Order Comment: Speci men Type: BLOOD SPECIMEN [facility] Address: [address] [place] [address] Performed By: #### 2 4323-8 #### [facility] CLIA [id number] [address] [place] [address] [place] Bilirubin [Mass/Vol] 0.3 mg/dL Normal 0.2-1.3 [facility] Comment on above: Order Comment: Speci men Type: BLOOD SPECIMEN [facility] Address: [address] [place] [address] Performed By: #### 2 4323-8 #### [facility] CLIA [id number] [address] [place] [address] [place] Calcium [Mass/Vol] 9.6 mg/dL Normal 8.5-10.2 [facility] Comment on above: Order Comment: Speci men Type: BLOOD SPECIMEN [facility] Address: [address] [place] [address] Performed By: #### 2 4323-8 #### [facility] CLIA [id number] [address] [place] [address] [place] Chloride [Moles/Vol] 105 mmol/L Normal 98-107 [facility] Comment on above: Order Comment: Speci men Type: BLOOD SPECIMEN [facility] Address: [address] [place] [address] Performed By: #### 2 4323-8 #### [facility] CLIA [id number] [address] [place] [address] [place] CO2 [Moles/Vol] 24 mmol/L Normal 22-30 [facility] Comment on above: Order Comment: Speci men Type: BLOOD SPECIMEN [facility] Address: [address] [place] [address] Performed By: #### 2 4323-8 #### [facility] CLIA [id number] [address] [place] [address] [place] Creatinine [Mass/Vol] 0.67 mg/dL Normal 0.58-0.96 [facility] Comment on above: Order Comment: Speci men Type: BLOOD SPECIMEN [facility] Address: [address] [place] [address] Performed By: #### 2 4323-8 #### [id number] [address] [place] [address] [place] [facility] Creatinine and Glomerular filtration rate.predicted panel (S/P/Bld) 118 mL/min/1.73m??? Normal >=60 [facility] Comment on above: Order Comment: Speci men Type: BLOOD SPECIMEN [facility] Address: [address] [place] [address] Result Comment: Victoria mated Glomerular Filtration Rate [...] GFR. Performed By: #### 2 4323-8 #### [facility] [id number] [address] [place] [address] [place] Glucose [Mass/Vol] 87 mg/dL Normal 74-99 [facility] Comment on above: Order Comment: Speci men Type: BLOOD SPECIMEN [facility] Address: [address] [place], [place] [address] Result Comment: The [place] Diabetes Association (ADA) provides guidance for cutoff [...] Standards of Medical Care in Diabetes 2016, [place] Diabetes Association. Diabetes Care. 2016.39(Suppl 1). Performed By: #### 2 4323-8 #### [facility] [id number] [address] [place] [address] [place] Potassium [Moles/Vol] 4.0 mmol/L Normal 3.7-5.1 [facility] Comment on above: Order Comment: Speci men Type: BLOOD SPECIMEN [facility] Address: [address] [place] [address] Performed By: #### 2 4323-8 #### [facility] [id number] [address] [place] [address] [place] Protein [Mass/Vol] 6.9 g/dL Normal 6.3-8.0 [facility] Comment on above: Order Comment: Speci men Type: BLOOD SPECIMEN [facility] Address: [address] [place] [address] Performed By: #### 2 4323-8 #### [facility] CLIA [id number] [address] [place] [address] [place] Sodium [Moles/Vol] 137 mmol/L Normal 136-144 [facility] Comment on above: Order Comment: Speci men Type: BLOOD SPECIMEN [facility] Address: [address] [place] [address] Performed By: #### 2 4323-8 #### [facility] [id number] [address] [place] [address] [place] Urea nitrogen [Mass/Vol] 10 mg/dL Normal 7-21 [facility] Comment on above: Order Comment: Speci men Type: BLOOD SPECIMEN [facility] Address: [address] [place] [address] Performed By: #### 2 4323-8 #### [facility] [id number] [address] [place] [address] [place] HbA1c (Bld)on 05-26-2024 Average glucose Estimated from glycated hemoglobin (Bld) [Mass/Vol] 100 mg/dL Normal [facility] Comment on above: Order Comment: Speci men Type: BLOOD SPECIMENOrdering Facility: [facility] Address: [address] [place] [address] Result Comment: eAG: (Estimated average glucose) is a calculated value from HgbA1c and is new accounts representative of the average blood glucose level in the last 2-3 month period. Performed By: #### 5 5454-3 ####[facility] LAB[facility]IA [id number] [place] [address] [place] HbA1c (Bld) [Mass fraction] 5.1 % Normal 4.3-5.6 [facility] Comment on above: Order Comment: Speci men Type: BLOOD SPECIMENOrdering Facility: [facility] Address: [address] [place] [address] Result Comment: Amer ican Diabetes Association guidelines indicate that patients with HgbA1c in the range 5.7-6.4% are at increased risk for development of diabetes, and intervention by lifestyle modification may be beneficial. HgbA1c greater or equal to 6.5% is considered diagnostic of diabetes. Performed By: #### 5 5454-3 ####[facility] LABCLIA [id number] [place] [address] [place] Vit B12 [facility] Cobalamin (Vitamin B12) [Mass/Vol] 360 pg/mL Normal 232-1245 [facility] Comment on above: Order Comment: Speci men Type: BLOOD SPECIMEN [facility] Address: [address] [place] [address] Performed By: #### 2 132-9 #### [facility] CLIA [id number] [address] [place] [address] [place] CNOVon 05-12-2024 CNOV Office Visit (UCWSTR ) IRVIN KLINE ([id number]) 1990 F Date Time Provider Department 05/12/24 7:00 PM NEIL RUCKER WSTR During your visit today, we recorded the following information about you: Temperature Pulse Respiration Blood pressure 98.4 degrees 70/minute 18/minute 118/80 Weight 114.2 kg Neil Rucker APRN.FINANCIAL SERVICES SPECIALIST 05/12/2024 7:48 PM Signed [facility] [...] PEN UNDER THE SKIN EVERY 28 DAYS fluticasone-salmetero l (WIXELA INHUB) 250-50 mcg/dose inhaler INHALE 1 PUFF INSTRUCTED TWO TIMES A DAY. Blood-Glucose Sensor ([x+1] G7 SENSOR) mallika Use as directed to monitor blood glucose 4-6 times per day. Reactive hypoglycemia [E16.1] Blood-Glucose Meter,Continuous (DEXCOM G7 HAT CONE INSPECTOR) misc Use as directed to monitor blood [...] (FLONASE) 50 mcg/actuation nasal spray Use 1 Calvert in each nostril once daily. Blood-Glucose Transmitter [...] Normal r (more content not included)... Normal [facility] CNPNon 05-05-2024 CNPN Telephone (EMQ) IRVIN KLINE ([id number]) 1990 F Date Time Provider Department 05/05/24 DYLAN TOPETE EMQ During your visit today, we recorded the following information about you: Wiliam Lemon 05/05/2024 12:18 PM Signed Blood-Glucose Sensor (DEXCOM G7 SENSOR) has been approved Notified patient through deng Johnson Prior Paraprofessional Interpreter Endocrinology AND Metabolism [place] Allergies As of Date: 05/05/2024 Noted Allergy Reaction ROCEPHIN (CEFTRIAXONE SODIUM) 05/12/2016 10 - Anaphylaxis Comments: per pt mother was 3yo Date Reviewed: 03/09/2024 Reviewed by: Cuca Rios MA - Fully Assessed Reason for Visit: Insurance Authorization [[id number]] Cmt: (DEXCOM G7 SENSOR) - Insurance Approval [...] UNDER THE SKIN EVERY 28 DAYS - fluticasone-salmetero l (WIXELA INHUB) 250-50 mcg/dose inhaler INHALE 1 [...] hypoglycemia [E16.1] - Blood-Glucose Meter,Continuous (DEXCOM G7 HAT CONE INSPECTOR) misc Use as directed to monitor blood [...] (FLONASE) 50 mcg/actuation nasal spray Use 1 Calvert in each nostril once daily. - Blood-Glucose [...] Encounter Status:Closed by WILIAM LEMON on 05/05/24 Normal [facility] CNOVon 03-09-2024 CNOV Office Visit (PULMGR ) IRVIN KLINE ([id number]) 1990 F Date Time Provider Department 03/09/24 [...] TAKE 1 TABLET BY MOUTH EVERY DAY fluticasone-salmetero l (WIXELA INHUB) 250-50 mcg/dose inhaler INHALE 1 PUFF INSTRUCTED TWO TIMES A DAY. Blood-Glucose Sensor (DEXCOM G7 SENSOR) mallika Use as directed to monitor blood glucose 4-6 times per day. Reactive hypoglycemia [E16.1] Blood-Glucose Meter,Continuous (DEXCOM G7 HAT CONE INSPECTOR) misc Use as directed to monitor blood [...] (FLONASE) 50 mcg/actuation nasal spray Use 1 Calvert in each nostril once daily. Blood-Glucose Transmitter [...] 86 Temp 98.2 Resp 16 Ht 5' 4" (1.63m) Wt 252 lb (114.3kg) SpO2 99% LMP 07/06/2023 BMI 43.23 kg/(m2). General appearance: well-nourished. Cordial. nontoxic. Obese. No cough Skin: Normal turgor. Not pallorous. N (more content not included)... Normal [facility] IRV[facility] KLINE ([id number]) 1990 F Date Time Provider Department 02/23/24 ROBSON ZUNIGA PULR During your visit today, we recorded the following information about you: Robert Olivarez RN 02/23/2024 2:09 PM Signed Spoke with patient regarding any recent insurance changes. Pt was unaware of changes and stated she would speak with her regarding that. [address] [facility] number provided to update if needed and request for pt to update office with any recent changes to insurance. Pt verbalized understanding of all Robert Olivarez RN February 23, 2024 2:09 PM Allergies As of Date: 02/23/2024 Noted Allergy Reaction ROCEPHIN (CEFTRIAXONE SODIUM) 05/12/2016 10 - Anaphylaxis Comments: per pt mother was 3yo Date Reviewed: 12/03/2023 Reviewed by: Chase Bazan APRN.FINANCIAL SERVICES SPECIALIST - Fully Assessed Prescriptions as of 02/23/2024 - budesonide (PULMICORT) 0.5 mg/2 mL nebulizer solution USE 2 ML VIA NEBULIZER EVERY 12 HOURS. INHALE OVER 5-15 MINUTES - mepolizumab (NUCALA) 100 mg/mL auto-injector INJECT 1 PEN UNDER THE SKIN EVERY 28 DAYS - montelukast (SINGULAIR) 10 mg tablet TAKE 1 TABLET BY MOUTH EVERY DAY - fluticasone-salmetero l (WIXELA INHUB) 250-50 mcg/dose inhaler INHALE 1 PUFF INSTRUCTED TWO TIMES A DAY. - citalopram hydrobromide (CELEXA) 10 mg tablet Take 1 tablet by mouth every other day. - cariprazine (VRAYLAR) 3 mg capsule Take 1 capsule by mouth once daily. - Blood-Glucose Sensor ([x+1] G7 SENSOR) mallika Use as directed to monitor blood glucose 4-6 times per day. Reactive hypoglycemia [E16.1] - Blood-Glucose Meter,Continuous (DEXCOM G7 HAT CONE INSPECTOR) misc Use as directed to monitor blood [...] (FLONASE) 50 mcg/actuation nasal spray Use 1 Calvert in each nostril once daily. - fluconazole [...] due to corticosteroid wit*04/24/2023 Encounter Status:Closed by BUNNYILEROBERT CALI on 02/23/24 Normal [facility] HEMOGLOBIN A1C (POC)on 11-05 HbA1c (Bld) [Mass fraction] 5.2 % 4.3 - 5.6 % [facility] Comment on above: Location:[facility] [address]ana Cannon, [place], [address] Point of care (POC) Hemoglobin A1c (HGBA1C) [...] specific diabetes management situations: The POC device dietary services manager provides a normal range of 4.2% to 6.5% for the HGBA1C POC test. However, the [place] Diabetes Association guidelines indicate that patients with [...] anemia) that alter red blood cell lifespan. [facility] NITRIC OXIDE, EXHALEDon 10-18 Mera Pérez, OANH 10/28/2023 1:36 PM RESPIRATORY THERAPY ORAL EXHALED [...] DATE: October 28, 2023 TIME: 1:36 PM [facility] 10-22-2023 [facility] Telephone (PULJ) IRVIN KLINE ([id number]) 1990 F Date Time Provider Department 10/22/23 ROBSON ZUNIGA [facility] During your visit today, we recorded the following information about you: Maame Smith 10/22/2023 12:49 PM Signed Received signed form back from dr. Zuniga- faxed over to Number on form [phone] Allergies As of Date: 10/22/2023 Noted Allergy Reaction ROCEPHIN (CEFTRIAXONE SODIUM) 05/12/2016 10 - Anaphylaxis Comments: per pt mother was 3yo Date Reviewed: 10/21/2023 Reviewed by: Chase Bazan APRN.FINANCIAL SERVICES SPECIALIST - Fully Assessed Reason for Visit: Patient [...] 1 tablet by mouth every day - fluticasone-salmetero l (ADVAIR, WIXELA) 250-50 mcg/dose inhaler INHALE 1 [...] (FLONASE) 50 mcg/actuation nasal spray Use 1 Calvert in each nostril once daily. - fluconazole [...] of breath. - Blood-Glucose Meter,Continuous (DEXCOM G6 HAT CONE INSPECTOR) misc 1 Each once daily. - Lancets [...] Encounter Status:Closed by MAAME SMITH on 10/22/23 [facility] Cherie 10-16-2023 CNPN Telephone (QAG500) IRVIN KLINE ([id number]) 1990 F Date Time Provider Department 10/16/23 CHASE BAZAN [id number] During your visit today, we recorded the following information about you: Josefina Buchanan 10/16/2023 10:29 AM Signed PAtient called and stated she is still having issues sleeping, even with the 50mg Trazodone. She states she can fall asleep but can't stay asleep. Chase Lockhart APRN.SHEN 10/16/2023 12:29 PM Signed New order: Increase [...] 1 tablet by mouth once daily. - fluticasone-salmetero l (ADVAIR, WIXELA) 250-50 mcg/dose inhaler INHALE 1 [...] (FLONASE) 50 mcg/actuation nasal spray Use 1 Calvert in each nostril once daily. - fluconazole [...] of breath. - Blood-Glucose Meter,Continuous (DEXCOM G6 HAT CONE INSPECTOR) misc 1 Each once daily. - Lancets [...] Encounter Status:Closed by CHASE BAZAN on 10/16/23 [facility] CNCOon 10-03-2023 CNCO Letter Text [facility] CNPNon 09-08-2023 CNPN Telephone (PSMR) IRVIN KLINE ([id number]) 1990 F Date Time Provider Department 09/08/23 KENDRA MILLER [facility] During your visit today, we recorded the following information about you: Kendra Miller, [facility] 09/08/2023 2:03 PM Signed Irvin called about the IOP. She was referred by her psychiatric FINANCIAL SERVICES SPECIALIST. She needs an evening IOP as she [...] Call [[phone]] Prescriptions as of 09/08/2023 - fluticasone-salmetero l (ADVAIR, WIXELA) 250-50 mcg/dose inhaler INHALE 1 [...] (FLONASE) 50 mcg/actuation nasal spray Use 1 Calvert in each nostril once daily. - fluconazole [...] of breath. - Blood-Glucose Meter,Continuous (DEXCOM G6 HAT CONE INSPECTOR) misc 1 Each once daily. - Lancets [...] Encounter Status:Closed by KENDRA MILLER on 09/08/[address] [facility] GLUCOSE, BLOOD (POC)on 04-28 Glucose [Mass/Vol] 77 mg/dL 74 - 99 mg/dL [facility] LABORATORYOrdered By: Donny Shook on 04-11-2023 Blood Glucose Testing Reason Routine (04/11/23 10:21 AM) [facility] Glucose [Mass/Vol] 105 mg/dL Normal 70 - 110 mg/dL [facility] ED NOTEon 01-03-2023 ED NOTE HNO ID: [id number] Author: Adele Patterson (Rn) (Hist), RN Service: ? Author Type: Registered Nurse Type: ED Notes Filed: 01/03/2023 6:31 PM Note Text: Discharge instructions d/w pt at bedside. Stated understanding with no further questions for this nurse. Encouraged f/u with PCP and referring doctors given. Stated understanding. Prescription(S) were given X1. [facility] ED NOTE HNO ID: [id number] Author: Mariana Yee, POWER Service: ? Author Type: Registered Nurse Type: ED Notes Filed: 01/03/2023 4:25 PM Note Text: Pt to ED with c/o insect bite to left arm, +redness, itching and pain, worsening through the day Normal [facility] ED PROV NOTEon 01-03-2023 ED PROV NOTE HNO ID: [id number] Author: Tang Holland PA-C Service: ? Author Type: Physician Stock Broker Supervisor Type: ED Provider Notes Filed: 01/03/2023 5:33 [...] Neurological: Negative for dizziness, numbness and headaches. Psychiatric/Behaviora l: Negative for agitation and confusion. The patient [...] and pat (more content not included)... Normal [facility] A fumigatus IgE Qnon 023 A. fumigatus IgE Qn (S) <0.35 Normal <0.35 M [facility] Comment on above: Order Comment: Speci [place] Type: BLOOD SPECIMEN [facility] Address: [address] [place] [address] Performed By: #### 1 9113-0, 6025-1 #### [facility] CLIA [id number] [address] [place] [address] [place] A. fumigatus IgE Qn (S)on A. fumigatus IgE RAST class (S) Class 0 Normal Class 0 [facility] Comment on above: Order Comment: Speckalpesh perry Type: BLOOD SPECIMEN [facility] Address: [address] [place] [address] Performed By: #### 1 9113-0, 6025-1 #### [facility] CLIA [id number] [address] [place] [address] [place] ALGN [place] GRPon 10-17 A. alternata IgE Qn (S) 1.75 kU/l High <0.35 M [facility] Comment on above: Order Comment: Speci or[place] Type: BLOOD SPECIMEN [facility] Address: [address] [place] [address] Performed By: #### T ARY, MICRO #### [facility] CLIA [id number] [facility] [place] [address] [place] A. alternata IgE RAST class (S) Class 2 Abnormal Class 0 [facility] Comment on above: Order Comment: Speci men Type: BLOOD SPECIMEN [facility] Address: [address] [place] [address] Performed By: #### T ARY, MICRO #### [facility] CLIA [id number] [address] [place] house dust mite IgE Qn (S) <0.35 Normal <0.35 [facility] Comment on above: Order Comment: Speci men Type: BLOOD SPECIMEN [facility] Address: [address] [place] [address] Performed By: #### T ARY, MICRO #### [facility] CLIA [id number] [facility] [address] OF [place] house dust mite IgE RAST class (S) Class 0 Normal Class 0 [facility] Comment on above: Order Comment: Speci men Type: BLOOD SPECIMEN [facility] Address: [address] [place] [address] Performed By: #### T ARY, MICRO #### [facility] CLIA [id number] [address] OF [place] C. herbarum IgE Qn (S) <0.35 Normal <0.35 [facility] Comment on above: Order Comment: Speci men Type: BLOOD SPECIMEN [facility] Address: [address] [place], [place] [address] Performed By: #### T ARY, MICRO #### [facility] CLIA [id number] [address] OF MK C. herbarum IgE RAST class (S) Class 0 Normal Class 0 [facility] Comment on above: Order Comment: Speci men Type: BLOOD SPECIMEN [facility] Address: [address] [place], [place] [address] Performed By: #### T ARY, MICRO #### [facility] CLIA [id number] [address] [place] [address] [facility] OF MK Cat dander IgE Qn (S) 14.90 kU/l High <0.35 [facility] Comment on above: Order Comment: Speci men Type: BLOOD SPECIMEN [facility] Address: [address] [place] [address] Performed By: #### T ARY, MICRO #### [facility] CLIA [id number] [address] [place] [address] [place] Cat dander IgE RAST class (S) Class 3 Abnormal Class 0 [facility] Comment on above: Order Comment: Speci men Type: BLOOD SPECIMEN [facility] Address: [address] [place] [address] Performed By: #### T ARY, MICRO #### [facility] CLIA [id number] [address] [place] [address] OF [place] Common Ragweed IgE Qn (S) <0.35 Normal <0.35 [facility] Comment on above: Order Comment: Speci men Type: BLOOD SPECIMEN [facility] Address: [address] [place] [address] Performed By: #### T ARY, MICRO #### [facility] CLIA [id number] [facility] [address] OF MK Common Ragweed IgE RAST class (S) Class 0 Normal Class 0 [facility] Comment on above: Order Comment: Speci men Type: BLOOD SPECIMEN [facility] Address: [address] [place] [address] Performed By: #### T ARY, MICRO #### [facility] CLIA [id number] [address] [place] [address] [place] Dog dander IgE Qn (S) 1.94 kU/l High <0.35 [facility] Comment on above: Order Comment: Speci men Type: BLOOD SPECIMEN [facility] Address: [address] [place] [address] Performed By: #### T ARY, MICRO #### [facility] CLIA [id number] [address] STATES OF [place] Dog dander IgE RAST class (S) Class 2 Abnormal Class 0 [facility] Comment on above: Order Comment: Speci men Type: BLOOD SPECIMEN [facility] Address: [address] [place], [place] [address] Performed By: #### T ARY, MICRO #### [facility] CLIA [id number] [address] OF [place] Goosefoot IgE Qn (S) <0.35 Normal <0.35 [facility] Comment on above: Order Comment: Speci men Type: BLOOD SPECIMEN [facility] Address: [address] [place], [place] [address] Performed By: #### T ARY, MICRO #### [facility] CLIA [id number] [address] [place] IgE RAST class (S) Class 0 Normal Class 0 [facility] Comment on above: Order Comment: Speci men Type: BLOOD SPECIMEN [facility] Address: [address] [place], [place] [address] Performed By: #### T ARY, MICRO #### [facility] CLIA [id number] [address] [place] IgE Qn (S) <0.35 Normal <0.35 [facility] Comment on above: Order Comment: Speci men Type: BLOOD SPECIMEN [facility] Address: [address] [place], [place] [address] Performed By: #### T ARY, MICRO #### [facility] CLIA [id number] [address] [place] IgE RAST class (S) Class 0 Normal Class 0 [facility] Comment on above: Order Comment: Speci men Type: BLOOD SPECIMEN [facility] Address: [address] Performed By: #### T ARY, MICRO #### [facility] CLIA [id number] [address] [place] IgE Qn (S) <0.35 Normal <0.35 [facility] Comment on above: Order Comment: Speci men Type: BLOOD SPECIMEN [facility] Address: [address] Performed By: #### T ARY, MICRO #### [facility] CLIA [id number] [address] [place] IgE RAST class (S) Class 0 Normal Class 0 [facility] Comment on above: Order Comment: Speci men Type: BLOOD SPECIMEN [facility] Address: [address] Performed By: #### T ARY, MICRO #### [facility] CLIA [id number] [address] [place] IgE Qn (S) <0.35 Normal <0.35 [facility] Comment on above: Order Comment: Speci men Type: BLOOD SPECIMEN [facility] Address: [address] Performed By: #### T ARY, MICRO #### [facility] CLIA [id number] [address] [place] IgE RAST class (S) Class 0 Normal Class 0 [facility] Comment on above: Order Comment: Speci men Type: BLOOD SPECIMEN [facility] Address: [address] Performed By: #### T ARY, MICRO #### [facility] CLIA [id number] [address]00 [place] [address] [place] IgE SerPl-aCncon 10-17-2022 IgE Qn 208.0 kU/l High <114.0 [facility] Comment on above: Order Comment: Jordan perry Type: BLOOD SPECIMEN [facility] Address: [address] [place] [address] Performed By: #### 1 9113-0, 6025-1 #### [facility] CLIA [id number] [address] [place] [address] [place] No Panel Informationon 09-26 [facility] ALLIED HEALTHon 06-16-2022 ALLIED HEALTH HNO ID: [id number] Author: RAZIA Sparks Service: Radiology Author Type: [...] Sparks June 16, 2022 9:12 AM Normal [facility] Basic metabolic 2000 panelon 06-16-2022 Anion gap [Moles/Vol] 10 mmol/L Normal 9-18 [facility] Comment on above: Order Comment: Jordan perry Type: BLOOD SPECIMEN [facility] Address: [address] [place] [address] Performed By: #### T ARY, MICRO #### [facility] CLIA [id number] [facility] [place] [address] [place] Calcium [Mass/Vol] 9.2 mg/dL Normal 8.5-10.2 [facility] Comment on above: Order Comment: Speci men Type: BLOOD SPECIMEN [facility] Address: [address] Performed By: #### T ARY, MICRO #### [facility] CLIA [id number] [address] [place] [address] [place] Chloride [Moles/Vol] 106 mmol/L High 97-105 [facility] Comment on above: Order Comment: Speci men Type: BLOOD SPECIMEN [facility] Address: [address] Performed By: #### T ARY, MICRO #### [facility] CLIA [id number] [address] [place] [address] [place] CO2 [Moles/Vol] 27 mmol/L Normal 22-30 [facility] Comment on above: Order Comment: Speci men Type: BLOOD SPECIMEN [facility] Address: [address] Performed By: #### T ARY, MICRO #### [facility] CLIA [id number] [address] [place] [address] [place] Creatinine [Mass/Vol] 0.63 mg/dL Normal 0.58-0.96 [facility] Comment on above: Order Comment: Speci men Type: BLOOD SPECIMEN [facility] Address: [address] [place] [address] Performed By: #### T ARY, MICRO #### [facility] CLIA [id number] [address] [place] [address] [place] ESTIMATED GLOMERULAR FILTRATION RATE 121 mL/min/1.73m??? Normal >=60 [facility] Comment on above: Order Comment: Speci men Type: BLOOD SPECIMEN [facility] Address: [address] [place] [address] Result Comment: Victoria mated Glomerular Filtration Rate [...] Performed By: #### T ARY, MICRO #### [facility] CLIA [id number] [address] [place] [address] [place] Glucose [Mass/Vol] 85 mg/dL Normal 74-99 [facility] Comment on above: Order Comment: Jordan perry Type: BLOOD SPECIMEN [facility] Address: [address] [place] [address] Result Comment: The [place] Diabetes [employer] (ADA) provides guidance for cutoff [...] Standards of Medical Care in Diabetes 2016, [place] [employer]. Diabetes Care. 2016.39(Suppl 1). Performed By: #### T ARY, MICRO #### [facility] CLIA [id number] [facility] [place] [address] [place] Potassium [Moles/Vol] 3.5 mmol/L Low 3.7-5.1 [facility] Comment on above: Order Comment: Jordan perry Type: BLOOD SPECIMEN [facility] Address: [address] [place] [address] Performed By: #### T ARY, MICRO #### [facility] CLIA [id number] [address] [place] [address] [place] Sodium [Moles/Vol] 143 mmol/L Normal 136-144 [facility] Comment on above: Order Comment: Speci men Type: BLOOD SPECIMEN [facility] Address: [address] Performed By: #### T ARY, MICRO #### [facility] CLIA [id number] [address] OF [facility] Urea nitrogen [Mass/Vol] 8 mg/dL Normal 7-21 [facility] Comment on above: Order Comment: Speci men Type: BLOOD SPECIMEN [facility] Address: [address] Performed By: #### T ARY, MICRO #### [facility] CLIA [id number] [address] [place] CBC W Auto Diff B[place] 2022 Hemoglobin (Bld) [Mass/Vol] 11.9 g/dL Normal 11.5-15.5 [facility] Comment on above: Order Comment: Speci men Type: BLOOD SPECIMEN [facility] Address: [address] Performed By: #### 5 7021-8 #### [facility] CLIA [id number] [address] Order Comment: Speci men Type: VENOUS BLOOD SPECIMEN [facility] Address: [address] Performed By: #### 2 4344-4 #### [facility] CLIA [id number] [facility] [address] [address] CBC W Auto Differential pane l (Bld)on 06-16-2022 Basophils (Bld) [#/Vol] 0.04 10*3/uL Normal <0.11 [facility] Comment on above: Order Comment: Speci men Type: BLOOD SPECIMEN [facility] Address: [address] Performed By: #### 5 7021-8 #### [facility] CLIA [id number] [address] [place] [address] [place] Basophils/100 WBC (Bld) 0.4 % Normal [facility] Comment on above: Order Comment: Speci men Type: BLOOD SPECIMEN [facility] Address: [address] [place] [address] Performed By: #### 5 7021-8 #### [facility] CLIA [id number] [address] [place] [address] [place] Differential cell count method Nom (Bld) Auto Normal [facility] Comment on above: Order Comment: Speci men Type: BLOOD SPECIMEN [facility] Address: [address] [place] [address] Performed By: #### 5 7021-8 #### [facility] CLIA [id number] [address] [place] [address] [place] Eosinophils (Bld) [#/Vol] 1.54 10*3/uL High <0.46 [facility] Comment on above: Order Comment: Speci men Type: BLOOD SPECIMEN [facility] Address: [address] [place] [address] Performed By: #### 5 7021-8 #### [facility] CLIA [id number] [address] Eosinophils/100 WBC (Bld) 15.2 % Normal [facility] Comment on above: Order Comment: Speci men Type: BLOOD SPECIMEN [facility] Address: [address] [place] [address] Performed By: #### 5 7021-8 #### [facility] CLIA [id number] [address] [place] Erythrocyte distribution width (RBC) [Ratio] 14.5 % Normal 11.5-15.0 [facility] Comment on above: Order Comment: Speci men Type: BLOOD SPECIMEN [facility] Address: [address] [place] [address] Performed By: #### 5 7021-8 #### [facility] CLIA [id number] [address] Hematocrit (Bld) [Volume fraction] 38.8 % Normal 36.0-46.0 [facility] Comment on above: Order Comment: Speci men Type: BLOOD SPECIMEN [facility] Address: [address] [place] [address] Performed By: #### 5 7021-8 #### [facility] CLIA [id number] [address] OF [place] Immature granulocytes (Bld) [#/Vol] 0.04 10*3/uL Normal <0.10 [facility] Comment on above: Order Comment: Speci men Type: BLOOD SPECIMEN [facility] Address: [address] [place] [address] Performed By: #### 5 7021-8 #### [facility] CLIA [id number] [address] Immature granulocytes/100 WBC (Bld) 0.4 % Normal [facility] Comment on above: Order Comment: Speci men Type: BLOOD SPECIMEN [facility] Address: [address] [place] [address] Performed By: #### 5 7021-8 #### [facility] CLIA [id number] [address] OF [place] Lymphocytes (Bld) [#/Vol] 2.48 10*3/uL Normal 1.00-4.00 [facility] Comment on above: Order Comment: Speci men Type: BLOOD SPECIMEN [facility] Address: [address] [place] [address] Performed By: #### 5 7021-8 #### [facility] CLIA [id number] [address] [place] Lymphocytes/100 WBC (Bld) 24.6 % Normal [facility] Comment on above: Order Comment: Speci men Type: BLOOD SPECIMEN [facility] Address: [address] [place] [address] Performed By: #### 5 7021-8 #### [facility] CLIA [id number] [address] MCH (RBC) [Entitic mass] 26.6 pg Normal 26.0-34.0 [facility] Comment on above: Order Comment: Speci men Type: BLOOD SPECIMEN [facility] Address: [address] [place] [address] Performed By: #### 5 7021-8 #### [facility] CLIA [id number] [address] [place] MCHC (RBC) [Mass/Vol] 30.7 g/dL Normal 30.5-36.0 [facility] Comment on above: Order Comment: Speci men Type: BLOOD SPECIMEN [facility] Address: [address] [place] [address] Performed By: #### 5 7021-8 #### [facility] CLIA [id number] [address] MCV (RBC) [Entitic vol] 86.6 fL Normal 80.0-100.0 [facility] Comment on above: Order Comment: Speci men Type: BLOOD SPECIMEN [facility] Address: [address] [place] [address] Performed By: #### 5 7021-8 #### [facility] CLIA [id number] [address] Monocytes (Bld) [#/Vol] 0.39 10*3/uL Normal <0.87 [facility] Comment on above: Order Comment: Speci men Type: BLOOD SPECIMEN [facility] Address: [address] [place] [address] Performed By: #### 5 7021-8 #### [facility] CLIA [id number] [address] Monocytes/100 WBC (Bld) 3.9 % Normal [facility] Comment on above: Order Comment: Speci men Type: BLOOD SPECIMEN [facility] Address: [address] [place] [address] Performed By: #### 5 7021-8 #### [facility] CLIA [id number] [address] [place] [address] [place] Neutrophils (Bld) [#/Vol] 5.61 10*3/uL Normal 1.45-7.50 [facility] Comment on above: Order Comment: Speci men Type: BLOOD SPECIMEN [facility] Address: [address] [place] [address] Performed By: #### 5 7021-8 #### [facility] CLIA [id number] [address] [place] Neutrophils/100 WBC (Bld) 55.5 % Normal [facility] Comment on above: Order Comment: Speci men Type: BLOOD SPECIMEN [facility] Address: [address] [place] [address] Performed By: #### 5 7021-8 #### [facility] CLIA [id number] [address] [place] [address] [place] Nucleated RBC (Bld) [#/Vol] 10*3/uL Normal <0.01 [facility] Comment on above: Order Comment: Speci men Type: BLOOD SPECIMEN [facility] Address: [address] [place] [address] Performed By: #### 5 7021-8 #### [facility] CLIA [id number] [address] Nucleated RBC/100 WBC (Bld) [Ratio] 0.0 /100 WBC Normal [facility] Comment on above: Order Comment: Speci men Type: BLOOD SPECIMEN [facility] Address: [address] [place] [address] Performed By: #### 5 7021-8 #### [facility] CLIA [id number] [address] [place] [address] [place] [facility] [place] Platelet mean volume (Bld) [Entitic vol] 10.0 fL Normal 9.0-12.7 [facility] Comment on above: Order Comment: Speci men Type: BLOOD SPECIMEN [facility] Address: [address] [place] [address] Performed By: #### 5 7021-8 #### [facility] CLIA [id number] [address] [place] [address] [facility] [place] Platelets (Bld) [#/Vol] 271 10*3/uL Normal 150-400 [facility] Comment on above: Order Comment: Speci men Type: BLOOD SPECIMEN [facility] Address: [address] [place] [address] Performed By: #### 5 7021-8 #### [facility] CLIA [id number] [address] OF [facility] RBC (Bld) [#/Vol] 4.48 10*6/uL Normal 3.90-5.20 [facility] Comment on above: Order Comment: Speci men Type: BLOOD SPECIMEN [facility] Address: [address] [place] [address] Performed By: #### 5 7021-8 #### [facility] CLIA [id number] [address] [place] WBC (Bld) [#/Vol] 10.10 10*3/uL Normal 3.70-11.00 [facility] Comment on above: Order Comment: Speci men Type: BLOOD SPECIMEN [facility] Address: [address] [place] [address] Performed By: #### 5 7021-8 #### [facility] CLIA [id number] [address] ED NOTEon 06-16-2022 ED NOTE HNO ID: [id number] Author: Iglesia Fritz RN Service: ? Author Type: Registered Nurse Type: ED Notes Filed: 06/16/2022 11:55 AM Note Text: The patient verbalizes understanding of discharge instructions. No additional questions or concerns at this time. Patient Vital signs stable, no acute distress noted. Patient ambulatory out of ED. Prescription(S) x 1 given. [facility] ED PROV NOTEon 06-16-2022 ED PROV NOTE HNO ID: [id number] Author: Artur Meng MD Service: Emergency Medicine [...] (304 lb 0.2 oz) 1.626 m (5' 4") Physical Exam Diagnostic Testing ED Labs Ordered [...] ED Course as of 06/16/22 1128 Artur Meng's Documentation Sun Jun 16, 2022 1118 Patient is feeling better. Patient speaking in full sensible sentences. Her room air pulse ox is 95%. She still has some expiratory wheezes. Her lab work is unremarkable other than a potassium of 3.5 and is probably related to the albuterol. 1119 Chest x-ray shows no acute disease. 1119 [facility] decision was made with the patient. I [...] whether persistent Hypokalemia COVID-19 test performed per [facility] [place] policy for suspected COVID community exposure. MDM [...] Final Result IMPRESSION: No acute radiographic abnormality. Department Of Mathematics Chair: ELLE Transcribe Date/Time: Jun 16 2022 9:33A [...] results, radiol (more content not included)... Normal [facility] FLUABV+SARS-CoV-2+RSV Pnl Re sp ALYCIA+probeon 06-16-2022 FLUABV+SARS-CoV-2+RSV Pnl Resp ALYCIA+probe COVID 19 RESULT: Not detected The method used is RT-PCR or an equivalent NAAT method. Reference Range(the expected result in uninfected individuals): Not detected INFLUENZA A PCR: Not detected INFLUENZA B PCR: Not detected RSV PCR: Not detected Normal [facility] Comment on above: Performed By: #### T ARY, MICRO #### [facility] CLIA [id number] [address] [place] [address] [place] Gas and Carbon monoxide pane l (BldV)on 06-16-2022 BASE DEFICIT, VENOUS >-1 Normal -2-0 [facility] Comment on above: Order Comment: Speci men Type: VENOUS BLOOD SPECIMEN [facility] Address: [address] [place] [id number] Performed By: #### 2 4344-4 #### [facility] CLIA [id number] [facility] [address] [address] Carboxyhemoglobin (BldV) [Mass fraction] <1.0 Normal 0.0-2.0 [facility] Comment on above: Order Comment: Speci men Type: VENOUS BLOOD SPECIMEN [facility] Address: [address] [place] [address] Result Comment: Carb oxyhemoglobin Reference Range for Smokers: 2.0-8.0% Performed By: #### 2 4344-4 #### [facility] CLIA [id number] [facility] [address] [address] CO2 (BldV) [Partial pressure] 47 mm[Hg] Normal 42-55 [facility] Comment on above: Order Comment: Speci men Type: VENOUS BLOOD SPECIMEN [facility] Address: [address] [place] [address] Performed By: #### 2 4344-4 #### [facility] CLIA [id number] [facility] [address] [address] CO2 adjusted to patient's actual temperature (BldV) [Partial pressure] Normal [facility] Comment on above: Order Comment: Speci men Type: VENOUS BLOOD SPECIMEN [facility] Address: [address] [place] [address] Performed By: #### 2 4344-4 #### [facility] CLIA [id number] [facility] [address] [address] HCO3 (Bld) [Moles/Vol] 25 mmol/L Normal 24-28 [facility] Comment on above: Order Comment: Speci men Type: VENOUS BLOOD SPECIMEN [facility] Address: [address] [place] [address] Performed By: #### 2 4344-4 #### [facility] CLIA [id number] [facility] [address] [address] Lactate [Moles/Vol] 1.8 mmol/L Normal 0.5-2.2 [facility] Comment on above: Order Comment: Speci men Type: VENOUS BLOOD SPECIMEN [facility] Address: [address] [place] [address] Performed By: #### 2 4344-4 #### [facility] CLIA [id number] [facility] [address] [address] O2 THERAPY RA=Room Air Normal [facility] Comment on above: Order Comment: Speci men Type: VENOUS BLOOD SPECIMEN [facility] Address: [address] [place] [address] Performed By: #### 2 4344-4 #### [facility] CLIA [id number] [facility] [address] [address] Oxygen (BldV) [Partial pressure] mm[Hg] Low 35-45 [facility] Comment on above: Order Comment: Speci men Type: VENOUS BLOOD SPECIMEN [facility] Address: [address] [place] [address] Performed By: #### 2 4344-4 #### [facility] CLIA [id number] [facility] [address] [place] [id number] Oxygen adjusted to patient's actual temperature (BldV) [Partial pressure] Normal [facility] Comment on above: Order Comment: Speci men Type: VENOUS BLOOD SPECIMEN [facility] Address: [address] [place] [address] Performed By: #### 2 4344-4 #### [facility] CLIA [id number] [facility] [address] [address] Oxyhemoglobin (BldV) [Mass fraction] 41 % Low 60-85 [facility] Comment on above: Order Comment: Speci men Type: VENOUS BLOOD SPECIMEN [facility] Address: [address] [place] [address] Performed By: #### 2 4344-4 #### [facility] CLIA [id number] [facility] [address] [address] pH (BldV) 7.35 [pH] Normal 7.32-7.42 [facility] Comment on above: Order Comment: Speci men Type: VENOUS BLOOD SPECIMEN [facility] Address: [address] [place] [address] Performed By: #### 2 4344-4 #### [facility] CLIA [id number] [facility] [address] [address] pH adjusted to patient's actual temperature (BldV) Normal [facility] Comment on above: Order Comment: Speckalpesh perry Type: VENOUS BLOOD SPECIMEN [facility] Address: [place] [address] Performed By: #### 2 4344-4 #### [facility] CLIA [id number] [facility] [address] [address] Potassium [Moles/Vol] 3.4 mmol/L Low 3.5-5.0 [facility] Comment on above: Order Comment: Speci men Type: VENOUS BLOOD SPECIMEN [facility] Address: [place] [place] [address] Performed By: #### 2 4344-4 #### [facility] CLIA [id number] [facility] [address] [address] Magnesium SerPl-mCncon 06-16 Magnesium [Mass/Vol] 2.0 mg/dL Normal 1.7-2.3 [facility] Comment on above: Order Comment: Jordan perry Type: BLOOD SPECIMEN [facility] Address: [address] [place] [address] Performed By: #### T ARY, MICRO #### [facility] CLIA [id number] [address] [place] XR CHEST 1V FRONTAL PORTon 0 06-16-2022 XR CHEST 1V FRONTAL PORT * * *Final Repo rt* * * DATE OF EXAM: Jun 16 [...] osseous abnormality. IMPRESSION: No acute radiographic abnormality. Department Of Mathematics Chair: PSCMalik Transcribe Date/Time: Jun 16 2022 9:33A Dictated by : WILDER HERNANDES MD This examination was interpreted and the report reviewed and electronically signed by: WILDER HERNANDES MD on Jun 16 2022 9:33AM EST [id number] Normal [facility] US THYROID/PARATHYROIDon [facility] THYROGLOBULIN ABon Thyroglobulin Ab Qn 2.1 [IU]/mL Normal <14.4 [facility] Comment on above: Order Comment: Jordan perry Type: BLOOD SPECIMEN [facility] Address: [address] [place] [address] Performed By: #### Linda MCALLISTER, MICRO #### [facility] CLIA [id number] [address] [place] [address] THYROID PEROXIDASE ANTIBODY BLOODon 04-10-2022 TPO Ab Qn 11.5 [IU]/mL High <5.6 [facility] Comment on above: Order Comment: Jordan perry Type: BLOOD SPECIMEN Ordering Facility[facility] Address: [address] [place] [address] Result Comment: Thyr oid Peroxidase Antibody test is used as an aid in diagnosis of autoimmune thyroid disease. Clinical correlation is required. Performed By: #### Linda MCALLISTER, MICRO #### [facility] CLIA [id number] [address] [place] [address] OF [place] THYROID STIMULATING IMMUNOGL OBULIN BLOODon 04-10-2022 Thyroid stimulating immunoglobulins actual/normal (S) [Relative mass conc] % Normal <0.55 [facility] Comment on above: Order Comment: Jordan perry Type: BLOOD SPECIMEN Ordering Facility[facility] Address: [address] [place] [address] Result Comment: Thyr oid Stimulating Immunoglobulin test is used as an aid in diagnosis of autoimmune hyperthyroidism especially in patients with Grave's orbitopathy and dermopathy. Low positive TSH receptor stimulating antibody levels may occasionally be found in patients with autoimmune hypothyroidism. Clinical correlation is required. Performed By: #### T SIGIM #### [facility] CLIA [id number] [address] [place] [address] [place] TSI QUALITATIVE Negative Normal Negative [facility] Comment on above: Order Comment: Speci men Type: BLOOD SPECIMEN Ordering Facility[facility] Address: [address] [address] Performed By: #### T SIGIM #### [facility] CLIA [id number] [address] [place] [address] [place] Basic metabolic 1998 panelon 03-11-2022 Anion gap [Moles/Vol] 2 mmol/L Low 3 - 13 mmol/L [facility] Calcium [Mass/Vol] 9.0 mg/dL 8.4 - 10. 4 mg/dL [facility] Chloride [Moles/Vol] 108 mmol/L High 98 - 10 7 mmol/L [facility] CO2 [Moles/Vol] 30 mmol/L 22 - 30 mmol/L [facility] Creatinine [Mass/Vol] 0.60 mg/dL 0.52 - 1.04 mg/dL [facility] GFR/1.73 sq M.predicted MDRD (S/P/Bld) [Vol rate/Area] - PINF [facility] Comment on above: Calculation based on the Chronic Kidney Disease Epidemiology Collaboration (CKD-EPI) equation refit without adjustment for race Glucose [Mass/Vol] 123 mg/dL High 70 - 100 mg/dL [facility] Interpretation and review of laboratory results Abnormal [facility] Potassium [Moles/Vol] 4.4 mmol/L 3.5 - 5.1 mmol/L [facility] Sodium [Moles/Vol] 141 mmol/L 135 - 145 mmol/L [facility] Urea nitrogen [Mass/Vol] 11 mg/dL 7 - 17 mg/d L [facility] CBC W Auto Differential pane l (Bld)Ordered By: Nicolle Dunlap on 03-11-2022 Basophils (Bld) [#/Vol] 0.0 10*3/uL 0.0 - 0.2 10*3/uL [facility] Basophils/100 WBC (Bld) 0.3 % 0.0 - 2.0 % [facility] Eosinophils (Bld) [#/Vol] 0.1 10*3/uL 0.0 - 0.5 10*3/uL [facility] Eosinophils/100 WBC (Bld) 1.1 % 1.0 - 6.0 % [facility] Erythrocyte distribution width (RBC) [Ratio] 14.3 % 11.5 - 14.5 % [facility] Hematocrit (Bld) [Volume fraction] 37.9 % 35.0 - 47.0 % [facility] Hemoglobin (Bld) [Mass/Vol] 12.2 g/dL 11.7 - 16.0 g/dL [facility] Immature granulocytes (Bld) [#/Vol] 0.1 10*3/uL High NINF - 0.0 10*3/uL [facility] Immature granulocytes/100 WBC (Bld) 0.5 % High NINF - 0.0 % [facility] Interpretation and review of laboratory results Abnormal [facility] Lymphocytes (Bld) [#/Vol] 1.2 10*3/uL 1.0 - 4.3 10*3/uL [facility] Lymphocytes/100 WBC (Bld) 11.1 % Low 20.0 - 40.0 % [facility] MCH (RBC) [Entitic mass] 27.4 pg 26. 0 - 34.0 pg [facility] MCHC (RBC) [Mass/Vol] 32.2 % 32.0 - 36.0 % [facility] MCV (RBC) [Entitic vol] 85.0 fL 80.0 - 98.0 fL [facility] Monocytes (Bld) [#/Vol] 0.3 10*3/uL 0.0 - 0.8 10*3/uL [facility] Monocytes/100 WBC (Bld) 2.9 % 2.0 - 10.0 % [facility] Neutrophils (Bld) [#/Vol] 8.9 10*3/uL High 1.8 - 7.0 10*3/uL [facility] Neutrophils/100 WBC (Bld) 84.1 % High 40.0 - 80.0 % [facility] Platelet mean volume (Bld) [Entitic vol] 10.0 fL 7.4 - 12.4 fL [facility] Comment on above: MPV is a calculated measurement using platelet volume ratio Platelets (Bld) [#/Vol] 263 10*3/uL 140 - 440 10*3/uL [facility] RBC (Bld) [#/Vol] 4.46 10*6/uL 3.8 - 5.20 10*6/uL [facility] WBC (Bld) [#/Vol] 10.6 10*3/uL 3.6 - 10.7 10*3/uL [facility] - Chemistry and C hemistry - challengeon 03-11-2022 Procalcitonin [Mass/Vol] ng/mL 0.0 0 - 0.09 ng/mL [facility] HCG.beta subunit Qn Females < 5 mIU/mL [facility] No Panel Informationon 03-11 Values in [...] or monitor tumors or gestational trophoblastic disease. [facility] Procalcitonin [Mass/Vol]on 0 03-11-2022 Interpretation and review of laboratory results Normal [facility] PCT <0.50 = Low risk of severe sepsis and/or septic shock. PCT >2.00 = High risk of severe sepsis and/or septic shock. [facility] Respiratory pathogens DNA an d RNA panel ALYCIA+probe (Nph)on 03-11-2022 Adenovirus Not detected Not Detected [facility] B. pertussis DNA ALYCIA+probe Ql (Unsp spec) Not detected Not Detected [facility]alth Bordetella parapertussis Not detected Not Detec varun [facility] Chlamydia pneumoniae Not detected Not Detected [facility] Coronavirus 229E Not detected Not Detected [facility] Coronavirus HKU1 Not detected Not Detected [facility] Coronavirus NL63 Not detected Not Detected [facility] Coronavirus OC43 Not detected Not Detected [facility] FLUAV RNA ALYCIA+non-probe Ql (Nph) Not detected Not Detected [facility] FLUBV RNA ALYCIA+non-probe Ql (Nph) Not detected Not Detected [facility] Human Metapneumovirus Not detected Not Detected [facility] Human Rhinovirus/Enterovirus Not detected Not Detected [facility] Interpretation and review of laboratory results Normal [facility] Mycoplasma pneumoniae Not detected Not Detected [facility] Parainfluenza 1 Not detected Not Detected [facility] Parainfluenza 2 Not detected Not Detected [facility] Parainfluenza 3 Not detected Not Detected [facility] Parainfluenza 4 Not detected Not Detected [facility] Respiratory Syncytial Virus Not detected Not Detected [facility] SARS-CoV-2 (COVID-19) RNA ALYCIA+non-probe Ql (Nph) Not detected Not Detected [facility] Methodology: Multiplex PCR [facility] XR Chest Single viewon 03-11 No acute cardiopulmonary disease. Report Dictated on Electronically Signed By: Yuriy Saldivar Electronically Signed Date/Time: 03/11/2022 6:27 PM [facility] [employer] [id number] Exam Date/Time: 03/11/2022 18:27 Procedure: XR CHEST [...] of the chest are unremarkable as visualized. [facility] [employer] Yuriy Saldivar MD - 03/11/2022 Patient Name: [...] Electronically Signed Date/Time: 03/11/2022 6:27 PM EST [facility] Radiology Study observation (narrative) [facility] XR Chest Single viewOrdered By: Yuriy Saldivar on 03-11-2022 [facility] OPERATIVE REPORTon 2 Ordered by an unspecified provider. [facility] CR Ankle 3+ Views Righton CR Ankle 3+ Views Right Patient Name: IRVIN KLINE Diagnostic Radiology ACCESSION EXAM DATE/TIME PROCEDURE ORDERING PROVIDER [id number] 07/29/2020 20:35 EDT CR Ankle 3+ Views Right [id number] -ANTHONY WEATHERS CPT code 43376 Reason For Exam (CR Ankle 3+ Views [...] Transcribed Date and Time: 07/29/2020 8:45 Normal [facility] CR Foot Complete 3+ Views Erica ornelas 07-29-2020 CR Foot Complete 3+ Views Right Patient Name: IRVIN KLINE Diagnostic Radiology ACCESSION EXAM DATE/TIME PROCEDURE ORDERING PROVIDER [id number] 07/29/2020 20:35 EDT CR Foot Complete 3+ [id number] -[place], Views Right ANTHONY CPT code 45202 Reason For Exam (CR Foot Complete 3+ [...] Transcribed Date and Time: 07/29/2020 8:45 Normal [facility] CR Tibia/Fibula 2 Views Twan langley 07-29-2020 CR Tibia/Fibula 2 Views Right Patient Name: IRVIN KLINE Diagnostic Radiology ACCESSION EXAM DATE/TIME PROCEDURE ORDERING PROVIDER [id number] 07/29/2020 20:35 EDT CR Tibia/Fibula 2 Views Right ANTHONY DUNNE CPT code 34856 Reason For Exam (CR Tibia/Fibula 2 Views [...] Transcribed Date and Time: 07/29/2020 8:45 Normal [facility] XR ANKLE RIGHT (MIN 3 VIEWS) Ordered By: Anthony Weathers on 07-29-2020 Patient Name: IRVIN KLINE [facility]#: [id number] Diagnostic Radiology ACCESSION EXAM DATE/TIME PROCEDURE ORDERING PROVIDER [id number] 07/29/2020 20:35 EDT CR Ankle 3+ Views Right Jose JoBOBBYANTHONY GUZMAN CPT code 23582 Reason For Exam (CR Ankle 3+ Views [...] Phone: [facility], [facility] Incoming Radiology Results From [facility] - 07/29/2020 8:45 PM EDT Patient Name: IRVIN KLINE Diagnostic Radiology ACCESSION EXAM DATE/TIME PROCEDURE ORDERING PROVIDER [id number] 07/29/2020 20:35 EDT CR Ankle 3+ Views Right [id number] -ANTHONY WEATHERS CPT code 85526 Reason For Exam (CR Ankle 3+ Views [...] Anthony Weathers on 07-29-2020 Patient Name: IRVIN KLINE Diagnostic Radiology ACCESSION EXAM DATE/TIME PROCEDURE ORDERING PROVIDER [id number] 07/29/2020 20:35 EDT CR Foot Complete 3+ [id number] -[place], Views Right ANTHONY CPT code 60568 Reason For Exam (CR Foot Complete 3+ [...] ETHAN --- Final --- Dictating Physician: MD MÉNEDZ WENDELL Signed Date and Time: 07/29/2020 8:44 pm Signed by: MD MÉNDEZ WENDELL Transcribed Date and Time: 07/29/2020 8:45 [facility] Work Phone: [facility], [facility] Incoming Radiology Results From [facility] - 07/29/2020 8:45 PM EDT Patient Name: IRVIN KLINE Diagnostic Radiology ACCESSION EXAM DATE/TIME PROCEDURE ORDERING PROVIDER [id number] 07/29/2020 20:35 EDT CR Foot Complete 3+ [id number] -[place], Views Right ANTHONY CPT code 49325 Reason For Exam (CR Foot Complete 3+ [...] Anthony Weathers on 07-29-2020 Patient Name: IRVIN KLINE [facility]#: [id number] Diagnostic Radiology ACCESSION EXAM DATE/TIME PROCEDURE ORDERING PROVIDER [id number] 07/29/2020 20:35 EDT CR Tibia/Fibula 2 Views [id number] -JASIEL, Right ANTHONY CPT code 42203 Reason For Exam (CR Tibia/Fibula 2 Views [...] Phone: [facility], [facility] Incoming Radiology Results From [facility] - 07/29/2020 8:45 PM EDT [facility]: [id number] Diagnostic Radiology ACCESSION EXAM DATE/TIME PROCEDURE ORDERING PROVIDER [id number] 07/29/2020 20:35 EDT CR Tibia/Fibula 2 Views [id number] -Right CASI WEATHERSS CPT code 59762 Reason For Exam (CR Tibia/Fibula 2 Views [...] PCRon CORONAVIRUS 2019,PCR DETECTED Abnormal Not Detected [facility] Comment on above: Order Comment: RESUL TS CALLED RB TO DEXTER, 01/25/2020 13:09 Result [...] patient management decisions. Fact sheet for providers: https://www.fda.gov/media/908600/download Fact sheet for patients: https://www.fda.gov/media/771863/download This test has received FDA Emergency Use Authorization (EUA) and has been verified by [facility] ([facility]). This test is only authorized for the duration of time that circumstances exist to justify the authorization of the emergency use of in vitro diagnostic tests for the detection of SARS-CoV-2 virus and/or diagnosis of COVID-19 infection under section 564(b)(1) of the Act, 21 U.S.C. 360bbb-3(b)(1), unless the authorization is terminated or revoked sooner. [facility] is certified under CLIA-88 as qualified to perform high complexity testing. Testing is performed in the [facility] laboratories located at [address] [place] [address]. RESULTS CALLED RB TO DEXTER, 01/25/2020 13:09 Performed By: #### C OV19 #### [address] [place] [address] Covid 19 Resultson 0 Covid 19 Results POSITIVE COVID-19 Test Coronaviruses are common world-wide and are the [...] You may also be contacted by the [facility] to see if any of your [...] or Naproxen (Aleve) can also be used. Vjor-rxr-gdzloqj cough and cold medicines can be used according to the instructions on the package. Some xmnp-zhs-osjrsdq medicines also contain acetaminophen. Make sure you [...] water are not available, use alcohol-based hand senior technical project manager. Avoid touching your eyes, nose, and mouth [...] a total of 10 days. Additional resources: [facility] COVID Hotline at 1-230-5KLNJTT ( ). COVID-19 Careline at (availa ble 24 hours per day, seven days a week if you or a loved one is experiencing anxiety related to the coronavirus pandemic). Clinical research opportunities: is conducting research studies to develop better testing and treatments for COVID. Do you want any information on how to participate Call [phone]. Websites: hospitals.org or www.CDC.gov Follow My Health / My [facility] (for other test results): Revised 01/04/2020 Electronic Signatures: Sriram Melchorices (ADMIN) (Signature pending) Authored Last Updated: 25-Jan-2020 12:53 by [employer], [employer] (ADMIN) Normal [facility] CORONAVIRUS 2019 BY PCRon Lab Specimen Source Nasal, Nasopharyngeal Normal [facility] Comment on above: Order Comment: CANDY CALI CALLED RB TO DEXTER, 01/25/2020 13:09 Performed By: #### C OV19 #### [facility] [address] [place] [address] Progress Noteon 12-28-2019 [employer]agram[employer] Authentication Interface Message Text DIABETES AND PROGRAM [...] GCT 156;sent for consult from [place] to [facility] for Diabetes management based on history [...] 08/07/2016 CHOLECYSTECTOMY 2015 COLONOSCOPY 2017 normal findings No outpatient medications have been marked as taking for the 12/28/19 encounter (Office Visit) with Silke Valentin MD. Allergies Allergen Reactions Bupropion Diarrhea Ceftriaxone Anaphylaxis and Hives per pt mother was 3yo Sulfamethoxazole-Trim ethoprim Anaphylaxis PHYSICAL EXAM: VITAL SIGNS: LMP 04/03/2019 [...] NST was performed and reactive. Total score: 810 Please see ultrasound report for full details. IMPRESSION AND RECOMMENDATIONS: Irvin is a Diabetes type: gestational, diet controlled with 29 y.o. at 34w5d with Active Non-Hospital Problems Diagnosis Date Noted Gestational diabetes mellitus (GDM) Dx by GCT 153, [facility]SB[facility] DAPP intake for [employer] 10/29/2019 - Met with Guitar Repairer, has note for work for 15 minute break after dinner (works 2nd shift) - Q 4 week growth - 12/28/2019 within normal limits, 5lb6oz, 2435g. BPP 8/10 (-2 breathing) - Blood sugars reviewed 12/28/2019. Patient remains GDMA1 with dietary and behavioural changes. Will return to primary MD and return to [facility] prn. - glucose screening - Increased risk [...] 4.8 oz) - Post Bariatrics referral - consultant teacher for BMI Orthostatic lightheadedness 04/15/2019 RESOLVED 10/29/2019 [...] and testing. - Clinical follow up: With ENGINEERING TECHNOLOGIST as previously scheduled. The total patient time of the visit was 15 minutes, of which was greater than 50% of the time was spent counseling and coordinating care. Normal [facility] Progress Noteon 11-30-2019 Diagrammer [employer] Authentication Interface Message Text DIABETES AND PROGRAM [...] GCT 156;sent for consult from [place] to [facility] for Diabetes management based on history [...] BLOOD SUGAR four times a day Vit w/Wp-Xfejrqpif-EV (PNV PO) Take 1 Cap by mouth daily Allergies Allergen Reactions Bupropion Diarrhea Ceftriaxone Anaphylaxis and Hives per pt mother was 3yo Sulfamethoxazole-Trim ethoprim Anaphylaxis PHYSICAL EXAM: VITAL SIGNS: BP 121/61 Wt (!) 126.7 kg (279 lb 4.8 oz) LMP 04/03/2019 BMI 47.92 kg/m AAOx3, NAD Total weight gain: 3.311 kg (7 lb 4.8 oz) IMAGING: BPP 09/24 Growth 3lb 9 oz (47%), EVERARDO WNL Please see ultrasound report for full details. IMPRESSION AND RECOMMENDATIONS: Irvin is a gestational, diet controlled Diabetes with 29 y.o. at 30w5d with Active Non-Hospital Problems Diagnosis Date Noted Gestational diabetes mellitus (GDM) Dx by GCT 153, [facility] DAPP intake for [employer] 10/29/2019 - FSBS reviewed on follow up 11/07 100% within range - Met with Guitar Repairer, needs note for work for 15 minute [...] 4.8 oz) - Post Bariatrics referral - consultant teacher for BMI Orthostatic lightheadedness 04/15/2019 RESOLVED 10/29/2019 [...] was spent counseling and coordinating care. Normal [facility] Progress Noteon 11-08-2019 Diagrammer And Seamer Authentication Interface Message Text DIABETES AND PROGRAM [...] GCT 156;sent for consult from [place] to [facility] for Diabetes management based on history [...] BLOOD SUGAR four times a day Vit w/Ct-Rryapqvxh-HB (PNV PO) Take 1 Cap by mouth daily Allergies Allergen Reactions Bupropion Diarrhea Ceftriaxone Anaphylaxis and Hives per pt mother was 3yo Sulfamethoxazole-Trim ethoprim Anaphylaxis PHYSICAL EXAM: VITAL SIGNS: BP 112/62 [...] 11/07 100% within range - Met with Guitar Repairer, needs note for work for 15 minute [...] is recommended. - Post Bariatrics referral - consultant teacher for BMI Orthostatic lightheadedness 04/15/2019 RESOLVED 10/29/2019 [...] was spent counseling and coordinating care. Normal [facility] Progress Noteon 10-29-2019 Diagrammer And Seamer Authentication Interface Message Text DIABETES AND PROGRAM [...] for this is undecided. Review of Systems: REGIONAL LIAISON - denies headaches, dizziness R - denies [...] 1 hour GCT 156;sent for consult from [place] to [facility] for Diabetes management based on history [...] BLOOD SUGAR four times a day Vit w/Tf-Ypthivyom-HF (PNV PO) Take 1 Cap by mouth daily Allergies Allergen Reactions Bupropion Diarrhea Ceftriaxone Anaphylaxis and Hives per pt mother was 3yo Sulfamethoxazole-Trim ethoprim Anaphylaxis PHYSICAL EXAM: VITAL SIGNS: BP 113/58 [...] diabetes, hypertension and preeclampsia, stillbirth, and delivery. [place] weight gain for this patient in this [...] Oral agents cross the placenta and lack shelter safety data on effects of the medication. [...] 10%, Length < 10%, diagnosis of IUGR, +\\- history of conditions associated with IUGR (maternal [...] by GCT 153, [facility] DAPP intake for [employer] 10/29/2019 - Patient did not bring FSBG - Met with Guitar Repairer, needs note for work for 15 minute [...] is recommended. - Post Bariatrics referral - consultant teacher for BMI Orthostatic lightheadedness 04/15/2019 RESOLVED 10/29/2019 [...] was spent counseling and coordinating care. Normal [facility] Echocardiogram completeon TRANSTHORACIC ECHOCARDIOGRAM PATIENT: Irvin Kline STUDY DATE: 04/21/2019 : 1990 AGE: 29 HT/WT: 162.6 cm (64 117.9 kg in) (259.4 lb) GENDER: F BP: 113 / 56 LOCATION: [facility] PATIENT Outpatient [facility] STATUS: Medical Center *ORDERING PHYSICIAN: * Jose Alfredo King MD *READING PHYSICIAN: * Raffaele *ROLLING MACHINE OPERATOR: * Desiree Crane MD [facility], [place] -------- INDICATIONS: Orthostatic hypotension. -------- CONCLUSIONS SUMMARY: 1. Left ventricle: The cavity size is normal. Wall thickness is normal. Systolic function is normal by visual assessment. The estimated ejection fraction is 55%. 2. No significant valve disease. -------- STUDY DATA: Complete transthoracic echocardiogram. Procedure: Image [...] review. Study status: Routine. Patient status: Outpatient. -------- FINDINGS LEFT VENTRICLE: The cavity size is [...] collapses by greater than 50% with inspiration. -------- Measurements Value Reference Aortic root ID 2.6 [...] Raffaele Crane MD 04/21/2019 10:21 Prior Signatures: [facility] Incoming Cardiology Results From Giulia/Patrick - 04/21/2019 10:22 AM EST TRANSTHORACIC ECHOCARDIOGRAM PATIENT: Irvin Kline STUDY DATE: 04/21/2019 : 1990 AGE: 29 HT/WT: 162.6 cm (64 117.9 kg in) (259.4 lb) GENDER: F BP: 113 / 56 LOCATION: [facility] PATIENT Outpatient [facility] STATUS: Medical Center *ORDERING PHYSICIAN: * Jose Alfredo King MD *READING PHYSICIAN: * Raffaele *ROLLING MACHINE OPERATOR: * Desiree Crane MD [facility], [facility] -------- INDICATIONS: Orthostatic hypotension. -------- CONCLUSIONS SUMMARY: 1. Left ventricle: The cavity size is normal. Wall thickness is normal. Systolic function is normal by visual assessment. The estimated ejection fraction is 55%. 2. No significant valve disease. -------- STUDY DATA: Complete transthoracic echocardiogram. Procedure: Image [...] review. Study status: Routine. Patient status: Outpatient. -------- FINDINGS LEFT VENTRICLE: The cavity size is [...] collapses by greater than 50% with inspiration. -------- Measurements Value Reference Aortic root ID 2.6 [...] Raffaele Crane MD 04/21/2019 10:21 Prior Signatures: [place], [place] HCG Qualitative, Serumon hCG Qual Negative m[IU]/mL [place], [place] Comment on above: REF RANGE: Negative .... < 3 Questionable Rpt 48-72 Hr Positive ..... > 10 Test Performed by [facility], [address] [place] [address] Rd. , [place], [place] [address] [place] [address] Urinalysison 12-22-2018 Appearance (U) Clear Clear NA [place], [place] Bacteria, UA Moderate (6-50) Negative /[HPF] [place], [place] Bilirubin Urine Negative Negative mg/dL [place], [place] Color (U) LIGHT YELLOW Lt. Yellow NA [place] Glucose, Ur Normal Normal (<70) mg/dL [place] Ketones Ql (U) Negative Negative mg/dL [place] LEUKOCYTES, UA 250 Negative Mark/uL [place] Nitrite, Urine Negative Negative NA [facility] [place] Occult Blood,Urine Negative Negative mg/dL [place] pH (U) 6.0 [pH] [place], [place] Protein (U) [Mass/Vol] Negative Negat neo mg/dL [place], [place] RBC (U) [#/Vol] Negative 0 - 2 /[HPF] [place], [place] Specific Cement, Urine 1.028 M [place], [place] Squam Epithel, UA 3-5 3 - 5 /[HPF] [place] Urobilinogen, Urine Normal Normal ( 0-1) mg/dL [place], [place] Volume 12 ml [place] WBC, UA 11-25 0 - 5 /[HPF] [place], [place] Test Performed by [facility], [address] [place], [place] [address] , [address] Basic Metabolic Panelon 11-0 Anion gap [Moles/Vol] 11 mmol/L [place], [place] Calcium [Mass/Vol] 10.3 mg/dL 8.4 - 10. 4 mg/dL [place], [place] Chloride [Moles/Vol] 102 mmol/L 98 - 10 7 mmol/L [place] CO2 [Moles/Vol] 25 mmol/L 22 - 30 mmol/L [place] Creatinine [Mass/Vol] 0.82 mg/dL 0.52 - 1.25 mg/dL [place], [place] EGFR IF NonAfrican [place] >60.0 >60 mL/min [place], [place] Comment on above: Source- MDRD equatio n with creatinine calibration to IDMS(NKDEP) eGFR not recommended for drug dose adjustment GFR/1.73 sq M predicted among blacks MDRD (S/P/Bld) [Vol rate/Area] mL/min/{1.73_m2} >60 mL/min [place], [place] Glucose [Mass/Vol] 87 mg/dL 70 - 100 mg/dL [place], [place] Interpretation and review of laboratory results Abnormal [place], [place] Potassium [Moles/Vol] 3.6 mmol/L 3.5 - 5.1 mmol/L [place] Sodium [Moles/Vol] 139 mmol/L 135 - 145 mmol/L [place] Urea nitrogen [Mass/Vol] 22 mg/dL High 7 - 20 mg/d L [place] Test Performed by [facility], [address] , [place], [place] [id number] [place] [address] Hemogram (CBC) w/Auto Diffon 12-21-2018 Absolute Baso # 0.0 10*3/uL 0 - 0.2 10*3/uL [place] Absolute Neut # 9.9 10*3/uL High 1.8 - 7 10*3/uL [place] Basophils/100 WBC (Bld) 0.2 % 0 - 2 % [place] Eosinophils (Bld) [#/Vol] 0.6 10*3/uL High 0 - 0.5 10*3/uL [place] Eosinophils/100 WBC (Bld) 4.0 % 1 - 6 % [place] Erythrocyte distribution width (RBC) [Ratio] 13.7 % 11.5 - 14.5 % [place] Granulocytes/100 WBC (Bld) 70.4 % 40 - 80 % [place] Hematocrit (Bld) [Volume fraction] 41.3 % 35 - 47 % [place] Hemoglobin (Bld) [Mass/Vol] 13.5 g/dL 11.7 - 16 g/dL [place] Interpretation and review of laboratory results [place] Lymphocytes (Bld) [#/Vol] 2.9 10*3/uL 1 - 4.3 10*3/uL [place] Lymphocytes/100 WBC (Bld) 20.5 % 20 - 40 % [place] MCH (RBC) [Entitic mass] 27.7 pg 26 - 34 pg [place] MCHC (RBC) [Mass/Vol] 32.8 % 32 - 36 % [place] MCV (RBC) [Entitic vol] 84.3 fL 79 - 98 fL [place] Monocytes (Bld) [#/Vol] 0.7 10*3/uL 0 - 0.8 10*3/uL [place] Monocytes/100 WBC (Bld) 4.9 % 2 - 10 % [place] Platelet mean volume (Bld) [Entitic vol] 8.1 fL 7.4 - 10.4 fL [place] Platelets (Bld) [#/Vol] 320 10*3/uL 140 - 440 10*3/uL [place] RBC (Bld) [#/Vol] 4.90 10*6/uL 3.8 - 5.2 10*6/uL [place] WBC (Bld) [#/Vol] 14.0 10*3/uL High 3.6 - 10.7 10*3/uL [place] Test Performed by [facility], [address] [place] [address] Vital Signs Date Time Vital Sign Value Performing Clinician Facility 12-07-2024 14:04-0400 Body temperature 98.01 [degF] Xradian Nicky DO Work Phone: [facility] 12-07-2024 14:04-0400 Diastolic blood pressure 74 mm[Hg] [employer] Nicky DO Work Phone: [facility] 12-07-2024 14:04-0400 Heart rate 68 /min Peas-Corpn Nicky DO Work Phone: [facility] 12-07-2024 14:04-0400 Respiratory rate 18 /min Peas-Corpn Nicky DO Work Phone: [facility] 12-07-2024 14:04-0400 SaO2% (BldA) [Mass fraction] 100 % [employer] [facility] 12-07-2024 14:04-0400 Systolic blood pressure 108 mm[Hg] [employer] Nicky DO Work Phone: [facility] 12-07-2024 13:26-0400 Body height 162.6 cm Peas-Corpn Nicky DO [facility] 12-07-2024 13:26-0400 Body mass index (BMI) [Ratio] 35.87 kg/m2 Carlos Saunders DO Work Phone: [facility] 12-07-2024 13:26-0400 Body weight 94.8 kg Carlos Saunders DO Work Phone: [facility] 10-29-2024 15:40-0400 Body mass index (BMI) [Ratio] 37.97 kg/m2 Ramirez Pulido MD Work Phone: [facility] 10-29-2024 15:40-0400 Body temperature 97.9 [degF] Ramirez Pulido MD Work Phone: [facility] 10-29-2024 15:40-0400 Body weight 100.35 kg Ramirez Pulido MD Work Phone: [facility] 10-29-2024 15:40-0400 Diastolic blood pressure 72 mm[Hg] Ramirez Pulido MD Work Phone: [facility] 10-29-2024 15:40-0400 Heart rate 83 /min Ramirez Pulido MD Work Phone: [facility] 10-29-2024 15:40-0400 Respiratory rate 16 /min Ramirez Pulido MD Work Phone: [facility] 10-29-2024 15:40-0400 SaO2% (BldA) [Mass fraction] 100 % Ramirez Pulido MD Work Phone: [facility] 10-29-2024 15:40-0400 Systolic blood pressure 107 mm[Hg] Ramirez Pulido MD Work Phone: [facility] 10-13-2024 09:30-0400 Body height 162.6 cm Silke Corea MD Work Phone: [facility] 10-13-2024 09:30-0400 Body mass index (BMI) [Ratio] 38.11 kg/m2 Silke Corea MD Work Phone: [facility] 10-13-2024 09:30-0400 Body temperature 97.9 [degF] Silke Corea MD Work Phone: [facility] 10-13-2024 09:30-0400 Body weight 100.7 kg Silke Corea MD Work Phone: [facility] 10-13-2024 09:30-0400 Diastolic blood pressure 56 mm[Hg] Silke Corea MD Work Phone: [facility] 10-13-2024 09:30-0400 Heart rate 63 /min Silke Corea MD Work Phone: [facility] 10-13-2024 09:30-0400 Systolic blood pressure 125 mm[Hg] Silke Corea MD Work Phone: [facility] 10-05-2024 23:00-0400 Body temperature 98 [degF] Dr. Charlie Deluca Work Phone: [facility] 10-05-2024 23:00-0400 Diastolic blood pressure 70 mm[Hg] Dr. Charlie Deluca Work Phone: [facility] 10-05-2024 23:00-0400 Heart rate 64 /min Dr. Charlie Deluca Work Phone: [facility] 10-05-2024 23:00-0400 Respiratory rate 18 /min Dr. Charlie Deluca Work Phone: [facility] 10-05-2024 23:00-0400 SaO2% (BldA) [Mass fraction] 100 % Dr. Charlie Deluca Work Phone: [facility] 10-05-2024 23:00-0400 Systolic blood pressure 121 mm[Hg] Dr. Charlie Deluca Work Phone: [facility] 10-05-2024 19:31-0400 Body height 162.[address] Charlie Deluca Work Phone: [facility] 10-05-2024 19:31-0400 Body mass index (BMI) [Ratio] 38.7 kg/m2 Dr. Charlie Deluca Work Phone: [facility] 10-05-2024 19:31-0400 Body weight 102.[address] Charlie Karimi DO Work Phone: [facility] 09-07-2024 13:51-0400 Body height 162.6 cm Krystle Donte [employer]ING MACHINE ASSEMBLER.FINANCIAL SERVICES SPECIALIST Work Phone: [facility] 09-07-2024 13:51-0400 Body mass index (BMI) [Ratio] 37.82 kg/m2 Krystle Donte COPING MACHINE ASSEMBLER.FINANCIAL SERVICES SPECIALIST Work Phone: [facility] 09-07-2024 13:51-0400 Body temperature 97.81 [degF] Krystle Donte COPING MACHINE ASSEMBLER.FINANCIAL SERVICES SPECIALIST Work Phone: [facility] 09-07-2024 13:51-0400 Body weight 99.95 kg Krystle Donte COPING MACHINE ASSEMBLER.FINANCIAL SERVICES SPECIALIST Work Phone: [facility] 09-07-2024 13:51-0400 Diastolic blood pressure 73 mm[Hg] Krystle Donte COPING MACHINE ASSEMBLER.FINANCIAL SERVICES SPECIALIST Work Phone: [facility] 09-07-2024 13:51-0400 Heart rate 77 /min Krystle Donte COPING MACHINE ASSEMBLER.FINANCIAL SERVICES SPECIALIST Work Phone: [facility] 09-07-2024 13:51-0400 SaO2% (BldA) [Mass fraction] 100 % Krystle Donte COPING MACHINE ASSEMBLER.FINANCIAL SERVICES SPECIALIST Work Phone: [facility] 09-07-2024 13:51-0400 Systolic blood pressure 106 mm[Hg] Krystle Donte COPING MACHINE ASSEMBLER.FINANCIAL SERVICES SPECIALIST Work Phone: [facility] 09-04-2024 18:58-0400 Body temperature 98.2 [degF] Dr. Charlie Deluca Work Phone: [facility] 09-04-2024 18:58-0400 Diastolic blood pressure 88 mm[Hg] Dr. Charlie Deluca Work Phone: [facility] 09-04-2024 18:58-0400 Heart rate 71 /min Dr. Charlie Deluca Work Phone: [facility] 09-04-2024 18:58-0400 Respiratory rate 18 /min Dr. Charlie Deluca Work Phone: [facility] 09-04-2024 18:58-0400 SaO2% (BldA) [Mass fraction] 98 % Dr. Charlie Deluca Work Phone: [facility] 09-04-2024 18:58-0400 Systolic blood pressure 110 mm[Hg] Dr. Charlie Deluca Work Phone: [facility] 09-04-2024 16:06-0400 Body height 162.[address] Charlie Deluca Work Phone: [facility] 09-04-2024 16:06-0400 Body mass index (BMI) [Ratio] 37.5 kg/m2 Dr. Charlie Deluca Work Phone: [facility] 09-04-2024 16:06-0400 Body weight 99.[address] Charlie Deluca Work Phone: [facility] 06-02-2024 14:10-0400 Body mass index (BMI) [Ratio] 44.69 kg/m2 Dylan Topete MD Work Phone: [facility] 06-02-2024 14:10-0400 Body weight 118.1 kg Dylan Topete MD Work Phone: [facility] 06-02-2024 14:10-0400 Diastolic blood pressure 61 mm[Hg] Dylan Topete MD Work Phone: [facility] 06-02-2024 14:10-0400 Heart rate 74 /min Dylan Topete MD Work Phone: [facility] 06-02-2024 14:10-0400 Systolic blood pressure 117 mm[Hg] Dylan Topete MD Work Phone: [facility] 05-12-2024 19:08-0400 Body mass index (BMI) [Ratio] 43.22 kg/m2 Neil Swank COPING MACHINE ASSEMBLER.FINANCIAL SERVICES SPECIALIST Work Phone: [facility] 05-12-2024 19:08-0400 Body temperature 98.4 [degF] Neil Swank COPING MACHINE ASSEMBLER.FINANCIAL SERVICES SPECIALIST Work Phone: [facility] 05-12-2024 19:08-0400 Body weight 114.2 kg Neil Swank COPING MACHINE ASSEMBLER.FINANCIAL SERVICES SPECIALIST Work Phone: [facility] 05-12-2024 19:08-0400 Diastolic blood pressure 80 mm[Hg] Neil Swank COPING MACHINE ASSEMBLER.FINANCIAL SERVICES SPECIALIST Work Phone: [facility] 05-12-2024 19:08-0400 Heart rate 70 /min Neil Swank COPING MACHINE ASSEMBLER.FINANCIAL SERVICES SPECIALIST Work Phone: [facility] 05-12-2024 19:08-0400 Respiratory rate 18 /min Neil Swank COPING MACHINE ASSEMBLER.FINANCIAL SERVICES SPECIALIST Work Phone: [facility] 05-12-2024 19:08-0400 SaO2% (BldA) [Mass fraction] 96 % Neil Swank COPING MACHINE ASSEMBLER.FINANCIAL SERVICES SPECIALIST Work Phone: [facility] 05-12-2024 19:08-0400 Systolic blood pressure 118 mm[Hg] Neil Swank COPING MACHINE ASSEMBLER.FINANCIAL SERVICES SPECIALIST Work Phone: [facility] 03-09-2024 13:54-0500 Body height 162.6 cm Robson Zuniga MD Work Phone: [facility] 03-09-2024 13:54-0500 Body mass index (BMI) [Ratio] 43.26 kg/m2 Robson Zuniga MD Work Phone: [facility] 03-09-2024 13:54-0500 Body temperature 98.2 [degF] Robson Zuniga MD Work Phone: [facility] 03-09-2024 13:54-0500 Body weight 114.31 kg Robson Zuniga MD Work Phone: [facility] 03-09-2024 13:54-0500 Diastolic blood pressure 81 mm[Hg] Robson Zuniga MD Work Phone: [facility] 03-09-2024 13:54-0500 Heart rate 86 /min Robson Zuniga MD Work Phone: [facility] 03-09-2024 13:54-0500 Respiratory rate 16 /min Robson Zuniga MD Work Phone: [facility] 03-09-2024 13:54-0500 SaO2% (BldA) [Mass fraction] 99 % Robson Zuniga MD Work Phone: [facility] 03-09-2024 13:54-0500 Systolic blood pressure 132 mm[Hg] Robson Zuniga MD Work Phone: [facility] 11-06-2023 08:39-0400 Body mass index (BMI) [Ratio] 43.1 kg/m2 Dylan Topete MD Work Phone: [facility] 11-06-2023 08:39-0400 Body weight 113.9 kg Dylan Topete MD Work Phone: [facility] 11-06-2023 08:39-0400 Diastolic blood pressure 78 mm[Hg] Dylan Topete MD Work Phone: [facility] 11-06-2023 08:39-0400 Heart rate 84 /min Dylan Topete MD Work Phone: [facility] 11-06-2023 08:39-0400 Systolic blood pressure 118 mm[Hg] Dylan Topete MD Work Phone: [facility] 08-26-2023 13:20-0400 Body height 162.6 cm Mari Mancera PA-C Work Phone: [facility] 08-26-2023 13:20-0400 Body mass index (BMI) [Ratio] 43.01 kg/m2 Mari Mancera PA-C Work Phone: [facility] 08-26-2023 13:20-0400 Body weight 113.65 kg Mari Mancera PA-C Work Phone: [facility] 08-26-2023 13:20-0400 Diastolic blood pressure 76 mm[Hg] Mari Slabaugh PA-C Work Phone: [facility] 08-26-2023 13:20-0400 Heart rate 77 /min Mari Slabaugh PA-C Work Phone: [facility] 08-26-2023 13:20-0400 Respiratory rate 16 /min Mari Slabaugh PA-C Work Phone: [facility] 08-26-2023 13:20-0400 SaO2% (BldA) [Mass fraction] 98 % Mrai Slabaugh PA-C Work Phone: [facility] 08-26-2023 13:20-0400 Systolic blood pressure 106 mm[Hg] Mari Slabaugh PA-C Work Phone: [facility] 08-06-2023 10:47-0400 Body height 162.6 cm Krystle Donte COPING MACHINE ASSEMBLER.FINANCIAL SERVICES SPECIALIST Work Phone: [facility] 08-06-2023 10:47-0400 Body mass index (BMI) [Ratio] 43.1 kg/m2 Krystle Donte COPING MACHINE ASSEMBLER.FINANCIAL SERVICES SPECIALIST Work Phone: [facility] 08-06-2023 10:47-0400 Body temperature 97.9 [degF] Krystle Donte COPING MACHINE ASSEMBLER.FINANCIAL SERVICES SPECIALIST Work Phone: [facility] 08-06-2023 10:47-0400 Body weight 113.9 kg Krystle Donte COPING MACHINE ASSEMBLER.FINANCIAL SERVICES SPECIALIST Work Phone: [facility] 08-06-2023 10:47-0400 Diastolic blood pressure 73 mm[Hg] Krystle Donte COPING MACHINE ASSEMBLER.FINANCIAL SERVICES SPECIALIST Work Phone: [facility] 08-06-2023 10:47-0400 Heart rate 72 /min Krystle Donte COPING MACHINE ASSEMBLER.FINANCIAL SERVICES SPECIALIST Work Phone: [facility] 08-06-2023 10:47-0400 SaO2% (BldA) [Mass fraction] 97 % Krystle Donte COPING MACHINE ASSEMBLER.FINANCIAL SERVICES SPECIALIST Work Phone: [facility] 08-06-2023 10:47-0400 Systolic blood pressure 112 mm[Hg] Krystle Kent COPING MACHINE ASSEMBLER.FINANCIAL SERVICES SPECIALIST Work Phone: [facility] 05-23-2023 16:16-0400 Body temperature 99.5 [degF] Iglesia Elva PA-C Work Phone: [facility] 05-23-2023 16:16-0400 Diastolic blood pressure 92 mm[Hg] Iglesia Elva PA-C Work Phone: [facility] 05-23-2023 16:16-0400 Heart rate 100 /min Iglesia Elva PA-C Work Phone: [facility] 05-23-2023 16:16-0400 Respiratory rate 16 /min Iglesia Elva PA-C Work Phone: [facility] 05-23-2023 16:16-0400 SaO2% (BldA) [Mass fraction] 93 % Iglesia Elva PA-C Work Phone: [facility] 05-23-2023 16:16-0400 Systolic blood pressure 130 mm[Hg] Iglesia Elva PA-C Work Phone: [facility] 05-21-2023 16:55-0400 Body temperature 98.71 [degF] Donald Kohara DO Work Phone: [facility] 05-21-2023 16:55-0400 Body weight 125 kg Donald Kohara DO Work Phone: [facility] 05-21-2023 16:55-0400 Diastolic blood pressure 70 mm[Hg] Donald Kohara DO Work Phone: [facility] 05-21-2023 16:55-0400 Heart rate 80 /min Donald Kohara DO Work Phone: [facility] 05-21-2023 16:55-0400 Respiratory rate 16 /min Donald Kohara DO Work Phone: [facility] 05-21-2023 16:55-0400 SaO2% (BldA) [Mass fraction] 98 % Donald Snowden DO Work Phone: [facility] 05-21-2023 16:55-0400 Systolic blood pressure 122 mm[Hg] Donald Snowden DO Work Phone: [facility] 05-20-2023 09:21-0400 Body height 162.6 cm Krystle Donte COPING MACHINE ASSEMBLER.FINANCIAL SERVICES SPECIALIST Work Phone: [facility] 05-20-2023 09:21-0400 Body temperature 98.2 [degF] Krystle Donte COPING MACHINE ASSEMBLER.FINANCIAL SERVICES SPECIALIST Work Phone: [facility] 05-20-2023 09:21-0400 Body weight 125.7 kg Krystle Donte COPING MACHINE ASSEMBLER.FINANCIAL SERVICES SPECIALIST Work Phone: [facility] 05-20-2023 09:21-0400 Diastolic blood pressure 76 mm[Hg] Krystle Donte COPING MACHINE ASSEMBLER.FINANCIAL SERVICES SPECIALIST Work Phone: [facility] 05-20-2023 09:21-0400 Heart rate 64 /min Krystle Donte COPING MACHINE ASSEMBLER.FINANCIAL SERVICES SPECIALIST Work Phone: [facility] 05-20-2023 09:21-0400 SaO2% (BldA) [Mass fraction] 97 % Krystle Donte COPING MACHINE ASSEMBLER.FINANCIAL SERVICES SPECIALIST Work Phone: [facility] 05-20-2023 09:21-0400 Systolic blood pressure 115 mm[Hg] Krystle Donte COPING MACHINE ASSEMBLER.FINANCIAL SERVICES SPECIALIST Work Phone: [facility] 04-29-2023 15:02-0400 Body weight 125 kg Dylan Topete MD Work Phone: [facility] 04-29-2023 15:02-0400 Diastolic blood pressure 70 mm[Hg] Dylan Topete MD Work Phone: [facility] 04-29-2023 15:02-0400 Heart rate 76 /min Dylan Topete MD Work Phone: [facility] 04-29-2023 15:02-0400 Systolic blood pressure 130 mm[Hg] Dylan Topete MD Work Phone: [facility] 04-11-2023 11:29-0500 Diastolic blood pressure 56 mm[Hg] DR CAROLINA GILL MD [facility] 04-11-2023 11:29-0500 Heart rate 68 /min DR CAROLINA GILL MD [facility] 04-11-2023 11:29-0500 Respiratory rate 18 /min DR CAROLINA GILL MD [facility] 04-11-2023 11:29-0500 Systolic blood pressure 118 mm[Hg] DR CAROLINA GILL MD [facility] 04-11-2023 11:00-0500 Diastolic Blood Pressure Non-Invasive 60 mm[Hg] DR CAROLINA GILL MD [facility] 04-11-2023 11:00-0500 Heart rate 65 /min DR CAROLINA GILL MD [facility] 04-11-2023 11:00-0500 Respiratory rate 16 /min DR CAROLINA GILL MD [facility] 04-11-2023 11:00-0500 Systolic Blood Pressure Non-Invasive 114 mm[Hg] DR CAROLINA GILL MD [facility] 04-11-2023 10:12-0500 Body height 162.[address] CARLOINA GILL MD [facility] 04-11-2023 10:12-0500 Body temperature 98.24 [degF] DR CAROLINA GILL MD [facility] 04-11-2023 10:12-0500 Body weight 127.[address] CAROLINA GILL MD [facility] 04-11-2023 10:12-0500 Diastolic Blood Pressure Non-Invasive 69 mm[Hg] DR CAROLINA GILL MD [facility] 04-11-2023 10:12-0500 Heart rate 72 /min DR CAROLINA GILL MD [facility] 04-11-2023 10:12-0500 Respiratory rate 18 /min DR CAROLINA GILL MD [facility] 04-11-2023 10:12-0500 Systolic Blood Pressure Non-Invasive 133 mm[Hg] DR CAROLINA GILL MD [facility] 04-10-2023 16:16-0500 Body weight 128 kg Krystle Donte COPING MACHINE ASSEMBLER.FINANCIAL SERVICES SPECIALIST Work Phone: [facility] 04-10-2023 16:16-0500 Diastolic blood pressure 80 mm[Hg] Krystle Donte COPING MACHINE ASSEMBLER.FINANCIAL SERVICES SPECIALIST Work Phone: [facility] 04-10-2023 16:16-0500 Heart rate 80 /min Krystle Donte COPING MACHINE ASSEMBLER.FINANCIAL SERVICES SPECIALIST Work Phone: [facility] 04-10-2023 16:16-0500 SaO2% (BldA) [Mass fraction] 98 % Krystle Donte COPING MACHINE ASSEMBLER.FINANCIAL SERVICES SPECIALIST Work Phone: [facility] 04-10-2023 16:16-0500 Systolic blood pressure 119 mm[Hg] Krystle Donte COPING MACHINE ASSEMBLER.FINANCIAL SERVICES SPECIALIST Work Phone: [facility] 01-03-2023 08:01-0500 Body temperature 98.4 [degF] Yuriy Lagos COPING MACHINE ASSEMBLER.FINANCIAL SERVICES SPECIALIST Work Phone: [facility] 01-03-2023 08:01-0500 Body weight 126.01 kg Yuriy Lagos COPING MACHINE ASSEMBLER.FINANCIAL SERVICES SPECIALIST Work Phone: [facility] 01-03-2023 08:01-0500 Diastolic blood pressure 76 mm[Hg] Yuriy Jonathan COPING MACHINE ASSEMBLER.FINANCIAL SERVICES SPECIALIST Work Phone: [facility] 01-03-2023 08:01-0500 Heart rate 73 /min Yuriy Jonathan COPING MACHINE ASSEMBLER.FINANCIAL SERVICES SPECIALIST Work Phone: [facility] 01-03-2023 08:01-0500 Respiratory rate 18 /min Yuriy Jonathan COPING MACHINE ASSEMBLER.FINANCIAL SERVICES SPECIALIST Work Phone: [facility] 01-03-2023 08:01-0500 SaO2% (BldA) [Mass fraction] 99 % Yuriy Jonathan COPING MACHINE ASSEMBLER.FINANCIAL SERVICES SPECIALIST Work Phone: [facility] 01-03-2023 08:01-0500 Systolic blood pressure 147 mm[Hg] Yuriy Jonathan COPING MACHINE ASSEMBLER.FINANCIAL SERVICES SPECIALIST Work Phone: [facility] 12-17-2022 10:42-0400 Body height 162.6 cm Robson Zuniga MD Work Phone: [facility] 12-17-2022 10:42-0400 Body temperature 97.3 [degF] Robson Zuniga MD Work Phone: [facility] 12-17-2022 10:42-0400 Body weight 123.38 kg Robson Zuniga MD Work Phone: [facility] 12-17-2022 10:42-0400 Diastolic blood pressure 74 mm[Hg] Robson Zuniga MD Work Phone: [facility] 12-17-2022 10:42-0400 Heart rate 58 /min Robson Zuniga MD Work Phone: [facility] 12-17-2022 10:42-0400 Respiratory rate 18 /min Robson Zuniga MD Work Phone: [facility] 12-17-2022 10:42-0400 SaO2% (BldA) [Mass fraction] 99 % Robson Zuniga MD Work Phone: [facility] 12-17-2022 10:42-0400 Systolic blood pressure 109 mm[Hg] Robson Zuniga MD Work Phone: [facility] 12-06-2022 17:33-0400 Body temperature 98.4 [degF] Marimeghan Yeboahaugh PA-C Work Phone: [facility] 12-06-2022 17:33-0400 Body weight 122.24 kg Marimeghan Yeboahaugh PA-C Work Phone: [facility] 12-06-2022 17:33-0400 Diastolic blood pressure 50 mm[Hg] Mari Obinnaaugh PA-C Work Phone: [facility] 12-06-2022 17:33-0400 Heart rate 69 /min Marimeghan Yeboahaugh PA-C Work Phone: [facility] 12-06-2022 17:33-0400 SaO2% (BldA) [Mass fraction] 98 % Marimeghan Yeboahaugh PA-C Work Phone: [facility] 12-06-2022 17:33-0400 Systolic blood pressure 115 mm[Hg] Mari Obinnaaugh PA-C Work Phone: [facility] 11-26-2022 10:34-0400 Body height 162.6 cm Donald Kohara DO Work Phone: [facility] 11-26-2022 10:34-0400 Body temperature 97 [degF] Donald Kohara DO Work Phone: [facility] 11-26-2022 10:34-0400 Body weight 123.47 kg Donald Kohara DO Work Phone: [facility] 11-26-2022 10:34-0400 Diastolic blood pressure 70 mm[Hg] Doanld Kohara DO Work Phone: [facility] 11-26-2022 10:34-0400 Heart rate 64 /min Donald Kohara DO Work Phone: [facility] 11-26-2022 10:34-0400 SaO2% (BldA) [Mass fraction] 97 % Donald Kohara DO Work Phone: [facility] 11-26-2022 10:34-0400 Systolic blood pressure 102 mm[Hg] Donald Snowden DO Work Phone: [facility] 09-26-2022 13:03-0400 Body height 162.6 cm Robson Zuniga MD Work Phone: [facility] 09-26-2022 13:03-0400 Body temperature 98.2 [degF] Robson Zuniga MD Work Phone: [facility] 09-26-2022 13:03-0400 Body weight 120.66 kg Robson Zuniga MD Work Phone: [facility] 09-26-2022 13:03-0400 Diastolic blood pressure 62 mm[Hg] Robson Zuniga MD Work Phone: [facility] 09-26-2022 13:03-0400 Heart rate 85 /min Robson Zuniga MD Work Phone: [facility] 09-26-2022 13:03-0400 Respiratory rate 13 /min Robson Zuniga MD Work Phone: [facility] 09-26-2022 13:03-0400 SaO2% (BldA) [Mass fraction] 94 % Robson Zuniga MD Work Phone: [facility] 09-26-2022 13:03-0400 Systolic blood pressure 111 mm[Hg] Robson Zuniga MD Work Phone: [facility] 08-22-2022 09:15-0400 Body height 162.6 cm Krystle Donte COPING MACHINE ASSEMBLER.FINANCIAL SERVICES SPECIALIST Work Phone: [facility] 08-22-2022 09:15-0400 Body temperature 98.8 [degF] Krystle Donte COPING MACHINE ASSEMBLER.FINANCIAL SERVICES SPECIALIST Work Phone: [facility] 08-22-2022 09:15-0400 Body weight 123.29 kg Krystle Donte COPING MACHINE ASSEMBLER.FINANCIAL SERVICES SPECIALIST Work Phone: [facility] 08-22-2022 09:15-0400 Diastolic blood pressure 72 mm[Hg] Krystle Donte COPING MACHINE ASSEMBLER.FINANCIAL SERVICES SPECIALIST Work Phone: [facility] 08-22-2022 09:15-0400 Heart rate 85 /min Krystle Greenter COPING MACHINE ASSEMBLER.FINANCIAL SERVICES SPECIALIST Work Phone: [facility] 08-22-2022 09:15-0400 SaO2% (BldA) [Mass fraction] 92 % Krystle Kent COPING MACHINE ASSEMBLER.FINANCIAL SERVICES SPECIALIST Work Phone: [facility] 08-22-2022 09:15-0400 Systolic blood pressure 118 mm[Hg] Krystle Kent COPING MACHINE ASSEMBLER.FINANCIAL SERVICES SPECIALIST Work Phone: [facility] 08-12-2022 16:26-0400 Body temperature 97.81 [degF] Adriana Wormald PA-C Work Phone: [facility] 08-12-2022 16:26-0400 Body weight 126.1 kg Adriana Wormald PA-C Work Phone: [facility] 08-12-2022 16:26-0400 Diastolic blood pressure 78 mm[Hg] Adriana Wormald PA-C Work Phone: [facility] 08-12-2022 16:26-0400 Heart rate 83 /min Adriana Wormald PA-C Work Phone: [facility] 08-12-2022 16:26-0400 SaO2% (BldA) [Mass fraction] 100 % Adriana Wormald PA-C Work Phone: [facility] 08-12-2022 16:26-0400 Systolic blood pressure 126 mm[Hg] Adriana Wormald PA-C Work Phone: [facility] 06-16-2022 08:17-0400 SaO2% (BldA) [Mass fraction] 90 % Mari Slabaugh PA-C Work Phone: [facility] 06-16-2022 08:08-0400 Body temperature 97.3 [degF] Mari Slabaugh PA-C Work Phone: [facility] 06-16-2022 08:08-0400 Body weight 130.18 kg Mari Slabaugh PA-C Work Phone: [facility] 06-16-2022 08:08-0400 Diastolic blood pressure 52 mm[Hg] Mari Mancera PA-C Work Phone: [facility] 06-16-2022 08:08-0400 Heart rate 67 /min Mari Mancera PA-C Work Phone: [facility] 06-16-2022 08:08-0400 Respiratory rate 18 /min Mari Mancera PA-C Work Phone: [facility] 06-16-2022 08:08-0400 Systolic blood pressure 110 mm[Hg] Mari Yeboahaujesus PA-C Work Phone: [facility] 04-02-2022 11:51-0500 Body height 162.6 cm Donald Kohara DO Work Phone: [facility] 04-02-2022 11:51-0500 Body temperature 97.81 [degF] Donald Kohara DO Work Phone: [facility] 04-02-2022 11:51-0500 Body weight 127.23 kg Donald Kohara DO Work Phone: [facility] 04-02-2022 11:51-0500 Diastolic blood pressure 62 mm[Hg] Donald Kohara DO Work Phone: [facility] 04-02-2022 11:51-0500 Heart rate 67 /min Donald Kohara DO Work Phone: [facility] 04-02-2022 11:51-0500 SaO2% (BldA) [Mass fraction] 99 % Donald Kohara DO Work Phone: [facility] 04-02-2022 11:51-0500 Systolic blood pressure 111 mm[Hg] Donald Kohara DO Work Phone: [facility] 03-11-2022 20:23-0500 Diastolic blood pressure 65 mm[Hg] Anthony Bowman MD Work Phone: [facility] 03-11-2022 20:23-0500 Heart rate 86 /min Anthony Bowman MD Work Phone: [facility] 03-11-2022 20:23-0500 Respiratory rate 18 /min Anthony Bowman MD Work Phone: [facility] 03-11-2022 20:23-0500 SaO2% (BldA) [Mass fraction] 96 % Anthony Bowman MD Work Phone: [facility] 03-11-2022 20:23-0500 Systolic blood pressure 128 mm[Hg] Anthony Bowman MD Work Phone: [facility] 03-11-2022 15:08-0500 Body mass index (BMI) [Ratio] 46 kg/m2 Anthony Bowman MD Work Phone: [facility] 03-11-2022 15:08-0500 Body temperature 98.6 [degF] Anthony Bowman MD Work Phone: [facility] 03-11-2022 15:08-0500 Body weight 121.56 kg Anthony Bowman MD Work Phone: [facility] 08-10-2021 10:35-0400 Body temperature 97.2 [degF] Man Marcos DPM Work Phone: [facility] 08-10-2021 10:35-0400 Diastolic blood pressure 66 mm[Hg] Man Marcos DPM Work Phone: [facility] 08-10-2021 10:35-0400 Heart rate 69 /min Man Marcos DPM Work Phone: [facility] 08-10-2021 10:35-0400 Respiratory rate 18 /min Man Marcos DPM Work Phone: [facility] 08-10-2021 10:35-0400 SaO2% (BldA) [Mass fraction] 95 % Man Marcos DPM Work Phone: [facility] 08-10-2021 10:35-0400 Systolic blood pressure 117 mm[Hg] Man Marcos DPM Work Phone: [facility] 08-10-2021 06:21-0400 Body height 162.6 cm Man Marcos DPM Work Phone: [facility] 08-10-2021 06:21-0400 Body mass index (BMI) [Ratio] 45.14 kg/m2 Man Marcos DPM Work Phone: [facility] 08-10-2021 06:21-0400 Body weight 119.3 kg Man Marcos DPM Work Phone: [facility] 07-29-2020 20:27-0400 Body height 162.6 cm Anthony Weathers MD Work Phone: [facility] Work Phone: 07-29-2020 20:27-0400 Body mass index (BMI) [Ratio] 46.52 kg/m2 Anthony Weathers MD Work Phone: [facility] Work Phone: 07-29-2020 20:27-0400 Body temperature 98.4 [degF] Anthony Weathers MD Work Phone: [facility] Work Phone: 07-29-2020 20:27-0400 Body weight 122.92 kg Anthony Weathers MD Work Phone: [facility] Work Phone: 07-29-2020 20:27-0400 Diastolic blood pressure 50 mm[Hg] Anthony Weathers MD Work Phone: [facility] Work Phone: 07-29-2020 20:27-0400 Heart rate 73 /min Anthony Weathers MD Work Phone: [facility] Work Phone: 07-29-2020 20:27-0400 Respiratory rate 16 /min Anthony Weathers MD Work Phone: [facility] Work Phone: 07-29-2020 20:27-0400 SaO2% (BldA) [Mass fraction] 100 % Anthony Weathers MD Work Phone: [facility] Work Phone: 07-29-2020 20:27-0400 Systolic blood pressure 128 mm[Hg] Anthony Weathers MD Work Phone: [facility] Work Phone: 12-22-2018 01:12-0500 BP Diastolic 67 mm[Hg] [place], [place] 12-22-2018 01:12-0500 BP Systolic 112 mm[Hg] [place] 12-22-2018 01:12-0500 Pulse (Heart Rate) 77 /min [place], [place] 12-22-2018 01:12-0500 Respiratory Rate 12 /min [place] 12-21-2018 22:23-0500 Pulse Oximetry 96 % [place] 12-21-2018 21:19-0500 BMI (Body Mass Index) 45.32 kg/m2 [place], [place] 12-21-2018 21:19-0500 Body Temperature 98.91 [degF] [place] 12-21-2018 21:19-0500 Body weight 119.75 kg [place] 12-21-2018 21:19-0500 Height 162.6 cm [place] Encounters Encounter Date Encounter Type Care Provider Facility Start: 12-23-2024 End: 12-23-2024 ambulatory DYLAN TOPETE Facility:[facility] Start: 12-16-2024 End: 12-16-[address] DONALD SNOWDEN [facility] Start: 12-14-[address] DONALD SNOWDEN [facility] :[id number] Start: 12-07-2024 End: 12-07-2024 Emergency department patient visit Carlos Saunders DO Work Phone: [facility] Comment on above: Mild asthma with exa cerbation, unspecified whether persistent (Primary Dx) Start: 12-01-2024 End: 12-01-2024 ambulatory LYSSA CHRISTINA Facility:[facility] Start: 11-16-[address] DONALD SNOWDEN Facility :[facility] Start: 11-02-2024 End: 11-02-2024 Refill Robson Zuniga MD Work Phone: Pulmonary Medicine Comment on above: Refill Request Start: 10-29-2024 End: 10-29-2024 Patient encounter procedure Ramirez Pulido MD Work Phone: Endocrinology Comment on above: Reactive hypoglycemi a (Primary Dx) Start: 10-29-2024 End: 10-29-2024 ambulatory RAMIREZ PULIDO Facility:[facility] Start: 10-29-2024 End: 10-29-2024 Telephone encounter Ramirez Pulido MD Work Phone: Endocrinology Comment on above: Reactive hypoglycemi a (Primary Dx) Start: 10-28-2024 End: 10-28-2024 Refill Dylan Topete MD Work Phone: Endocrinology Comment on above: Refill Request Start: 10-27-2024 End: 10-28-2024 ambulatory Dylan Topete MD Work Phone: Endocrinology Comment on above: Glucomiter Start: 10-27-2024 End: 10-27-2024 Telephone encounter Suzette Morales PA-C Work Phone: Rheumatology Comment on above: Appointment Start: 10-13-2024 End: 10-13-2024 Patient encounter procedure Silke Corea MD Work Phone: Rheumatology Comment on above: Mechanical back pain (Primary Dx); Family history of scleroderma; Mass of skin; Trochanteric bursitis of both hips; Tenderness of sacroiliac joint; Cold extremities Start: 10-13-2024 End: 10-13-2024 ambulatory KRYSTLE KENT Facility:[facility] Start: 10-06-2024 End: 10-06-2024 Refill Dylan Topete MD Work Phone: Endocrinology Comment on above: Refill Request Start: 10-05-2024 End: 10-05-2024 Emergency department patient visit Dr. Charlie Karimi DO Work Phone: -Emergency Department Work Phone: Start: 10-05-2024 End: 10-06-2024 ambulatory Dylan Topete MD Work Phone: Endocrinology Comment on above: Wegovy Start: 09-14-2024 End: 09-14-2024 Refill Ah Louise Acevedo DO Work Phone: Family Medicine [facility] Comment on above: Refill Request Start: 09-07-2024 End: 09-07-2024 Office outpatient visit 25 minutes Krystle Kent APRN.FINANCIAL SERVICES SPECIALIST Work Phone: [facility] Comment on above: Mass of skin (Primar y Dx); Family history of scleroderma; Skin sensitivity; Bruising Start: 09-07-2024 End: 09-07-2024 ambulatory KRYSTLE KENT Facility:[facility] Start: 09-04-2024 End: 09-04-2024 Emergency department patient visit Dr. Charlie Deluca Work Phone: -Emergency Department Work Phone: Start: 08-30-2024 End: 08-30-2024 Refill Dylan Topete MD Work Phone: Endocrinology Comment on above: Refill Request Start: 08-27-2024 End: 08-30-2024 ambulatory Dylan Topete MD Work Phone: Endocrinology Comment on above: Zebound Start: 08-26-2024 End: 08-26-2024 Telephone encounter Robson Zuniga MD Work Phone: Pulmonary Medicine Comment on above: FYI-No Action Needed (Order confirmation for Nebulizer) Start: 08-26-[address] DONALD SNOWDEN Facility [facility] Start: 08-06-2024 End: 08-06-2024 Telephone encounter Stacie Harris PSYD Work Phone: [facility] Comment on above: Appointment (Called to schedule new patient appointment, lvm) Start: 07-29-2024 End: 07-29-2024 Refill Donald Jhon DO Work Phone: [facility] Comment on above: Refill Request Start: 07-21-2024 [...] Topete MD Work Phone: Endocrinology [facility] [place] Comment on above: Insurance Authorizat ion ( (ZEPBOUND) 2.5 mg/0.5 mL) Start: 06-03-2024 End: 06-03-2024 Patient encounter procedure Arlene Pittman Work Phone: Podiatry Comment on above: Right ankle instabil ity (Primary Dx); Chronic pain of right ankle Start: 06-03-2024 End: 06-03-2024 ambulatory ARLENE PITTMAN Facility:[facility] Start: 06-02-2024 End: 06-02-2024 Patient encounter procedure Dylan Topete MD Work Phone: Endocrinology Comment on above: Reactive hypoglycemi a (Primary Dx); Asthma, late onset, severe persistent, uncomplicated (HCC); Class 3 severe obesity due to excess calories with serious comorbidity and body mass index (BMI) of 40.0 to 44.9 in adult (HCC); Vitamin B12 deficiency Start: 06-02-2024 End: 06-02-2024 ambulatory DONALD JHON Facility:[facility] Start: 05-26-2024 End: 05-26-2024 ambulatory DONALD KOHROM Facility:[facility] Start: 05-12-2024 End: 05-12-2024 ambulatory DONALD SNOWDEN Facility:[facility] Start: 05-12-2024 End: 05-12-2024 Patient encounter procedure Neil Rucker APRN.FINANCIAL SERVICES SPECIALIST Work Phone: [facility] Comment on above: Asthma, moderate per sistent, poorly-controlled (Primary Dx); Costochondritis Start: 05-05-2024 End: 05-05-2024 Telephone encounter Dylan Topete MD Work Phone: [facility]inology [facility] [place] Comment on above: Insurance Authorizat ion ( (DEXCOM G7 SENSOR) - Insurance Approval ) Start: 04-09-2024 End: 04-09-2024 Refill Ha Acevedo DO Work Phone: [facility] Comment on above: Refill Request Start: 03-09-2024 End: 03-09-2024 ambulatory ROBSON ZUNIGA Facility:[facility] Start: 03-09-2024 End: 03-09-2024 Patient encounter procedure [...] Start: 01-10-2024 End: 01-13-2024 Refill Silke Richardson APRN.FINANCIAL SERVICES SPECIALIST Work Phone: Family Medicine Comment on above: Refill Request Start: 12-19-2023 End: 12-19-2023 Refill Robson Zuniga MD Work Phone: Pulmonary Comment on above: Refill Request Start: 12-03-2023 End: 12-03-2023 [facility] Chase Beni COPING MACHINE ASSEMBLER.FINANCIAL SERVICES SPECIALIST Work Phone: [facility] Comment on above: Bipolar II disorder (HCC) (Primary Dx); Generalized anxiety disorder Start: 12-02-2023 End: 12-02-2023 ambulatory Chase Beni COPING MACHINE ASSEMBLER.FINANCIAL SERVICES SPECIALIST Work Phone: [facility] Start: 12-02-2023 End: 12-02-2023 Patient encounter procedure Chase Beni COPING MACHINE ASSEMBLER.FINANCIAL SERVICES SPECIALIST Work Phone: [facility] Start: 11-17-2023 End: 11-26-2023 ambulatory Dylan Topete MD Work Phone: Endocrinology Comment on above: G7 trasmiter Start: 11-16-2023 End: 11-17-2023 ambulatory Chase Beni COPING MACHINE ASSEMBLER.FINANCIAL SERVICES SPECIALIST Work Phone: [facility] Start: 11-16-2023 End: 11-17-2023 Patient encounter procedure Chase Beni COPING MACHINE ASSEMBLER.FINANCIAL SERVICES SPECIALIST Work Phone: [facility] Comment on above: Depression Start: 11-06-2023 End: 11-06-2023 ambulatory Donald Kohara DO Work Phone: [facility] [place] Comment on above: Ozempic Start: 11-06-2023 End: [...] Refill Request Start: 10-28-2023 End: 10-28-2023 ambulatory Pulm Mc Work Phone: [facility] Comment on above: Spirometry Start: 10-28-2023 End: 10-28-2023 Patient encounter procedure [facility] Work Phone: [facility] Start: 10-22-2023 End: 10-23-2023 Telephone encounter Robson Zuniga MD Work Phone: [facility] Comment on above: Patient Update ([employer]) Patient Question Start: 10-21-2023 End: 10-21-2023 Telemedicine consultation with patient Chase MattBeni COPING MACHINE ASSEMBLER.FINANCIAL SERVICES SPECIALIST Work Phone: [facility] behavioral Medicine Start: 10-21-2023 End: 10-21-2023 Telephone encounter Robson Zuniga MD Work Phone: Pulmonary Medicine Comment on above: Appointment ([employer] Certification of Illness) Appointment (Certifi cation of Illness [employer]) Bipolar II disorder (HCC) (Primary Dx); Generalized anxiety disorder Start: 10-21-2023 End: 10-21-2023 ambulatory CHASE BENI Facility:[facility] Start: 10-16-2023 End: 10-16-2023 Telephone encounter Chase Beni COPING MACHINE ASSEMBLER.FINANCIAL SERVICES SPECIALIST Work Phone: [facility] Comment on above: Patient Update Start: 10-12-2023 End: 10-13-2023 Refill Donald Snowden DO Work Phone: Family Medicine Comment on above: Refill Request Start: 10-09-2023 End: 10-10-2023 ambulatory Dylan Topete MD Work Phone: Endocrinology Comment on above: Dexcom g7 Start: 10-08-2023 End: 10-08-2023 ambulatory Chase Beni COPING MACHINE ASSEMBLER.FINANCIAL SERVICES SPECIALIST Work Phone: [facility] Start: 10-08-2023 End: 10-08-2023 Patient encounter procedure Chase Beni COPING MACHINE ASSEMBLER.FINANCIAL SERVICES SPECIALIST Work Phone: [facility] Comment on above: Celexa Start: 10-06-2023 End: 10-06-2023 ambulatory Donald Jhon DO Work Phone: [facility] Comment on above: Nausea Start: 10-03-2023 End: 10-03-2023 [facility] Chase Beni COPING MACHINE ASSEMBLER.FINANCIAL SERVICES SPECIALIST Work Phone: [facility] Comment on above: Bipolar II disorder (HCC) (Primary Dx); Generalized anxiety disorder; Major depressive disorder, recurrent episode, moderate (HCC) Start: 09-25-2023 Refill Chase Ciccarel li COPING MACHINE ASSEMBLER.FINANCIAL SERVICES SPECIALIST Work Phone: [facility] Comment on above: Refill Request extreme fluctuation of blood glucose levels Start: 09-23-2023 End: 09-23-2023 [facility] Chase Beni COPING MACHINE ASSEMBLER.FINANCIAL SERVICES SPECIALIST Work Phone: [facility] Comment on above: Bipolar II disorder (HCC) (Primary Dx); Generalized anxiety disorder; Major depressive disorder, recurrent episode, moderate (HCC) Start: 09-12-2023 Telephone encounter Robson Zuniga MD Work Phone: Pulmonary Medicine Comment on above: FYI-No Action Needed Start: 09-11-2023 Telephone encounter Robson Zuniga MD Work Phone: Pulmonary Medicine Comment on above: FYI-No Action Needed (Confirmation of Order DME) Start: 09-10-2023 Refill Chase Ciccarel li COPING MACHINE ASSEMBLER.FINANCIAL SERVICES SPECIALIST Work Phone: [facility] Comment on above: Refill Request Start: 09-09-2023 End: 09-09-2023 [facility] Chase Beni COPING MACHINE ASSEMBLER.FINANCIAL SERVICES SPECIALIST Work Phone: [facility] Comment on above: Bipolar II disorder (HCC) (Primary Dx); Generalized anxiety disorder; Major depressive disorder, recurrent episode, moderate (HCC) Start: 09-08-2023 Refill Robson ricci MD Work Phone: Pulmonary Comment on above: Med Change Request Start: 09-08-2023 Telephone encounter Robson Zuniga MD Work Phone: Pulmonary Comment on above: FYI-No Action Needed Returning Patient's Call Start: 09-06-2023 ambulatory Chase Ciccarel li COPING MACHINE ASSEMBLER.FINANCIAL SERVICES SPECIALIST Work Phone: [facility] Start: 09-06-2023 Patient encounter procedure Chase Beni COPING MACHINE ASSEMBLER.FINANCIAL SERVICES SPECIALIST Work Phone: [facility] Comment on above: Manic issues Start: 09-04-2023 ambulatory Arlene servin Work Phone: Podiatry Comment on above: Shoes Start: 09-02-2023 ambulatory Arlene servin Work Phone: Podiatry Comment on above: Ankle brace Start: 08-26-2023 End: 08-26-2023 Patient encounter procedure Mari Mancera PA-C Work Phone: [facility] Comment on above: Infected abrasion of right knee, initial encounter (Primary Dx) Start: 08-25-2023 ambulatory Robson ricci MD Work Phone: Pulmonary Comment on above: Allergies Start: 08-19-2023 End: 08-19-2023 [facility] Chase Beni COPING MACHINE ASSEMBLER.FINANCIAL SERVICES SPECIALIST Work Phone: [facility] Comment on above: Bipolar II disorder (HCC) (Primary Dx); Generalized anxiety disorder; Major depressive disorder, recurrent episode, moderate (HCC) Start: 08-13-2023 Refill Chase Ciccarel li COPING MACHINE ASSEMBLER.FINANCIAL SERVICES SPECIALIST Work Phone: [facility] Comment on above: Refill Request Start: 08-12-2023 Refill Robson ricci MD Work Phone: Pulmonary Comment on above: Refill Request Start: 08-07-2023 End: 08-07-2023 ambulatory Chase Beni COPING MACHINE ASSEMBLER.FINANCIAL SERVICES SPECIALIST Work Phone: [facility] Comment on above: Right ankle instabil ity (Primary Dx) Start: 08-07-2023 Patient encounter procedure Chase Beni COPING MACHINE ASSEMBLER.FINANCIAL SERVICES SPECIALIST Work Phone: [facility] Comment on above: Having trouble Start: 08-07-2023 Telephone encounter Chase Cicc arelli COPING MACHINE ASSEMBLER.FINANCIAL SERVICES SPECIALIST Work Phone: [facility] Comment on above: Psychiatric Problem Start: 08-06-2023 ambulatory Dylan Topete MD Work Phone: Endocrinology Comment on above: Work note Start: 08-06-2023 End: 08-06-2023 Patient encounter procedure Krystle Kent COPING MACHINE ASSEMBLER.FINANCIAL SERVICES SPECIALIST Work Phone: [facility] [place] Comment on above: Left-sided chest wal l pain (Primary Dx); Upper back pain on left side; Low blood sugar Start: 07-18-2023 End: 07-18-2023 [facility] Chase Beni COPING MACHINE ASSEMBLER.FINANCIAL SERVICES SPECIALIST Work Phone: [facility] Comment on above: Bipolar II disorder (HCC) (Primary Dx); Major depressive disorder, recurrent episode, moderate (HCC); Generalized anxiety disorder Medicantion Start: 07-16-2023 ambulatory Robson ricci MD Work Phone: Allergy Comment on above: Nucala prior authori zation Start: 07-16-2023 E-mail encounter fro m caregiver Robson Zuniga MD Work Phone: Allergy Start: 07-16-2023 Refill Shu Cohen PA-C Work Phone: Family Medicine Comment on above: Refill Request Start: 07-16-2023 Telephone encounter Robson Zuniga MD Work Phone: Allergy Comment on above: Insurance Authorizat ion (Nucala) Start: 07-15-2023 ambulatory Dylan Topete MD Work Phone: Endocrinology Comment on above: Test strips Refill Request Start: 06-28-2023 ambulatory Dylan Topete MD Work Phone: Endocrinology Comment on above: Meals Start: 06-26-2023 Telephone encounter Matilda Galarza MD Work Phone: Endocrinology Comment on above: Patient Question Start: 06-19-2023 ambulatory Arlene oJlie servin Work Phone: Podiatry Comment on above: Ankle Start: 06-17-2023 ambulatory Arlene Jolie servin Work Phone: Podiatry Comment on above: [...] on above: Appointment Start: 05-28-2023 ambulatory Donald Jhon Work Phone: [facility] [place] Comment on above: Adderal Start: 05-28-2023 Telephone encounter Donald Jhon DO Work Phone: [facility] [place] Comment on above: Medication Problem Start: 05-23-2023 End: 05-23-2023 Office outpatient visit 15 minutes Iglesia Stevenson PA-C Work Phone: [facility] Comment on above: Viral URI with cough (Primary Dx) Start: 05-23-2023 ambulatory Donald Jhon DO Work Phone: [facility] [place] Comment on above: Black stool Start: 05-22-2023 Telephone encounter Donald Snowden DO Work Phone: [facility] Comment on above: New Rx Request Start: 05-21-2023 End: 05-21-2023 Patient encounter procedure Donald Snowden DO Work Phone: [facility] Comment on above: Anxiety with depress ion (Primary Dx); Acute non-recurrent maxillary sinusitis; Attention deficit hyperactivity disorder (ADHD), predominantly inattentive type Start: 05-21-2023 ambulatory Donald Snowden DO Work Phone: [facility] Comment on above: Add meds Start: 05-20-2023 End: 05-20-2023 Patient encounter procedure Krystle Kent APRN.FINANCIAL SERVICES SPECIALIST Work Phone: [facility] Comment on above: Mild intermittent as thma, [...] 05-08-2023 ambulatory Jamey Gardner PT Work Phone: 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) Start: 04-24-2023 End: 04-24-2023 Telemedicine consultation with patient Robson Zuniga MD Work Phone: [facility] Start: 04-24-2023 Telephone encounter Krystle son COPING MACHINE ASSEMBLER.FINANCIAL SERVICES SPECIALIST Work Phone: Family Medicine Comment on above: Dexcom transmitter n ot sent Start: 04-23-2023 ambulatory Krystle Kent COPING MACHINE ASSEMBLER.FINANCIAL SERVICES SPECIALIST Work Phone: Family Medicine Comment on above: Dexcom transmitter Start: 04-20-2023 Refill Silke Richardson COPING MACHINE ASSEMBLER.FINANCIAL SERVICES SPECIALIST Work Phone: Family Medicine Comment on above: Refill Request Start: 04-18-2023 Refill Krystle Kent COPING MACHINE ASSEMBLER.FINANCIAL SERVICES SPECIALIST Work Phone: Family Medicine Comment on above: Med Change Request Start: 04-17-2023 Telephone encounter Mera [address]ton RD Work Phone: Endocrinology Comment on above: Patient Question Start: 04-16-2023 Telephone encounter Kenny Osuna RN NOC Comment on above: Follow Up (All Clear ) Start: 04-15-2023 End: 04-15-[address] Work Phone: [facility] Start: 04-15-2023 End: 04-15-2023 Nutrition therapy Mera Varela RD Work Phone: Endocrinology Comment on above: Medical Nutrition Th erapy (Hypoglycemia) Start: 04-12-2023 Telephone encounter Richar falcon COPING MACHINE ASSEMBLER.FINANCIAL SERVICES SPECIALIST Work Phone: Endocrinology Comment on above: Appointment Start: 04-11-2023 ambulatory Jamie Bowie Work Phone: Endocrinology Comment on above: Blood sugar Start: 04-11-2023 Telephone encounter Guy Mane MD Work Phone: [facility] [place] Comment on above: Results Start: 04-11-2023 End: 04-11-2023 Emergency department patient visit DR CAROLINA GILL MD Facility:[facility] Start: 04-11-2023 End: 04-11-2023 Emergency department patient visit DR CAROLINA GILL MD [facility] Start: 04-10-2023 End: 04-10-2023 Patient encounter procedure Krystle Kent COPING MACHINE ASSEMBLER.FINANCIAL SERVICES SPECIALIST Work Phone: Family Medicine Comment on above: Lightheaded (Primary Dx); Hypoglycemia Start: 04-10-2023 ambulatory Donald Enidara DO Work Phone: Family Medicine [place] Comment on above: Low Blood Sugar Start: 04-10-2023 Telephone encounter Donald Enidrom DO Work Phone: Family Practice Comment on above: Medication Problem Start: 2023 Refill Donald Enidrom DO Work Phone: Family Medicine [place] Comment on above: Refill Request Start: 04-01-2023 End: 04-01-2023 ambulatory Nuria Puckett PT, DPT [facility] Comment on above: Right ankle instabil ity (Primary Dx) Start: 03-28-2023 End: 03-28-2023 ambulatory Nuria Puckett PT, DPT [facility] Comment on above: Right ankle instabil ity (Primary Dx) Start: 03-20-2023 End: 03-20-2023 ambulatory Jamey Gardner PT Work Phone: [facility] Physical Therapy Comment on above: Right ankle instabil ity (Primary Dx) Start: 01-11-2023 Refill Donald Jhon DO Work Phone: Family Medicine Comment on above: Refill Request Start: 01-03-2023 End: 01-03-2023 Emergency department patient visit UNKNOWN PROVIDER Facility:[facility] Start: 01-03-2023 End: 01-03-2023 Patient encounter procedure Yuriy Lagos TIO.FINANCIAL SERVICES SPECIALIST Work Phone: [facility] Comment on above: Insect bite of left [...] Start: 12-12-2022 End: 12-12-2022 ambulatory Madison Recinos APRN.FINANCIAL SERVICES SPECIALIST Work Phone: Telemedicine Comment on above: Severe persistent as thma with acute exacerbation (Primary Dx) Start: 12-12-2022 End: 12-12-2022 Telemedicine consultation with patient Madison Recinos APRN.FINANCIAL SERVICES SPECIALIST Work Phone: [facility] Start: 12-10-2022 Telephone encounter Robson Zuniga MD Work Phone: Pulmonary Comment on above: FYI-No Action Needed Start: 12-09-2022 Telephone encounter Arlene Márquez minnie Work Phone: Podiatry Start: 12-06-2022 End: 12-06-2022 Patient encounter procedure Mari Mancera PA-C Work Phone: [facility] Comment on above: Viral URI with cough (Primary Dx) Start: 11-26-2022 Telephone encounter Donald Snowden DO Work Phone: Family Medicine Comment on above: Orders Start: 11-26-2022 End: 11-26-2022 Patient encounter procedure Donald Snowden DO Work Phone: Family Medicine Comment on above: Foot pain, right (Pr imary Dx); Abnormal weight gain Start: 11-21-2022 ambulatory [facility] Start: 11-04-2022 Refill Donald Snowden DO Work Phone: Family Medicine Comment on above: Refill Request Start: 10-28-2022 Telephone encounter Robson Zuniga MD Work Phone: Pulmonary Medicine Comment on above: Opened In Error Start: 10-26-2022 Refill Silke Richardson COPING MACHINE ASSEMBLER.FINANCIAL SERVICES SPECIALIST Work Phone: Family Medicine [place] Comment on above: Refill Request Start: 10-23-2022 [...] Start: 10-17-2022 End: 10-18-2022 ambulatory UNKNOWN PROVIDER Facility:[facility] Start: 10-07-2022 Telephone encounter Robson Zuniga MD Work Phone: Pulmonary Comment on above: FMLA Paperwork Start: 10-05-2022 Refill Krystle Kent COPING MACHINE ASSEMBLER.FINANCIAL SERVICES SPECIALIST Work Phone: Family Medicine Comment on above: Refill Request Start: 09-29-2022 Refill Donald Snowden DO Work Phone: Family [facility] Comment on above: Refill Request Start: 09-26-2022 End: 09-26-2022 ambulatory Pulm Mc Work Phone: PUL LAB [facility] Comment on above: Spirometry Start: 09-26-2022 End: 09-26-2022 Patient encounter procedure Pulm [facility] [place] [facility] Comment on above: Pulmonary eosinophil ia (HCC) (Primary Dx); Late onset asthma, severe persistent, with status asthmaticus; Asthma, moderate persistent, poorly-controlled Start: 09-25-2022 ambulatory Sandra FERNANDEZ E CUSTOMER BUSINESS MANAGER Comment on above: Asthma Start: 08-22-2022 End: 08-22-2022 Patient encounter procedure Krystle Kent APRN.CNP Work Phone: Family Medicine Comment on above: Mild intermittent as thma with acute exacerbation (Primary Dx); SOB (shortness of breath); Wheezing Start: 08-12-2022 End: 08-12-2022 Patient encounter procedure Adriana Coughlin PA-C Work Phone: [facility] Comment on above: [...] 06-16-2022 Emergency department patient visit ARTUR MENG Facility:[facility] Start: 06-16-2022 End: 06-16-2022 Patient encounter procedure Mari Mancera PA-C Work Phone: [facility] Comment on above: [...] with patient Jamie Steele MD Work Phone: [facility] Start: 04-16-2022 ambulatory Donald Snowden DO Work Phone: Family Medicine Comment on above: Nebulizer Start: 04-12-2022 End: 04-12-2022 Subsequent hospital visit by physician [facility] [place] [facility] 1 Work Phone: Radiology Comment on above: Justina's thyroidi tis [E06.3] Start: 04-10-2022 End: 04-11-2022 ambulatory UNKNOWN PROVIDER Facility:[facility] Start: 04-05-2022 ambulatory Donald Snowden DO Work [...] End: 03-11-2022 Subsequent hospital visit by physician [facility] Radiology Comment on above: Arrived Start: 03-11-2022 End: 03-11-2022 Emergency department patient visit Anthony Bowman MD Work Phone: [facility] ED Comment on above: Moderate persistent asthma with exacerbation (Primary Dx) Start: 12-13-2021 ambulatory UNKNOWN PROVIDER [facility] Start: 12-12-2021 Transcribe Orders [facility] Work Phone: [facility] Central Scheduling Comment on above: Moderate [...] by physician Jose Alfredo King Work Phone: [facility] Comment on above: Orthostatic hypotens ion; Orthostatic lightheadedness Start: 03-04-2019 End: 03-04-2019 Subsequent hospital visit by physician Liliya Baeza COPING MACHINE AS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 Work Phone: [facility] EKG Comment on above: Syncope, unspecified syncope type; Lightheadedness; Orthostatic hypotension; Palpitations Start: 12-21-2018 End: 12-22-2018 Emergency department patient visit Maricarmen Diaz Work Phone: [facility] ED Comment on above: Vasovagal syncope (P rimary Dx); Acute cystitis without hematuria Procedures Date Procedure Procedure Detail Performing Clinician Start: 10-29-2024 Gluc bld gluc mntr dev cleared fda spec home use [facility] Provider Start: 10-05-2024 Urnls dip stick/tablet reagent auto microscopy Dr. Charlie Deluca Work Phone: Start: 10-05-[address] Charlie Deluca Work Phone: Start: 09-04-2024 CT of head without contrast Dr. Charlie Deluca Work Phone: Start: 11-06-2023 Hemoglobin A1c/Hemoglobin.total in Blood Dylan [...] Robson Zuniga MD Work Phone: Start: 04-12-2022 Us soft tissue head & neck real time imge docm Donald Snowden DO Work Phone: Start: 03-11-2022 Radiologic exam chest single view Pili Mustafa COPING MACHINE AS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 Work Phone: Start: 03-11-2022 Iadna respiratry probe & rev trnscr 02-10 target Pili Mustafa COPING MACHINE AS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 Work Phone: Start: 03-11-2022 Basic metabolic panel calcium total Pili Mustafa COPING MACHINE AS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 Work Phone: Start: 08-10-2021 OPERATIVE REPORT Physician [...] H/O: section History of section Liliya Baeza COPING MACHINE AS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 Work Phone: H/O: surgery Status post righ t foot surgery Man Marcos DPM Work Phone: History of cholecystectomy Hx of cholecystectomy Dr. Charlie Karimi DO Work Phone: Plan of Treatment Date Care Activity Detail Author Start: 2065 RSV Immunization for Adults (1 - 1-dose 75+ series) RSV Immunization for Adults (1 - 1-dose 75+ series) [facility] Start: 2055 Pneumococcal 0-64 years Vaccine (2 of 2) Pneumococcal 0-64 years Vaccine (2 of 2) [facility] Work Phone: Start: 2040 Shingles Vaccine (1 of 2) Shingles Vaccine (1 of 2) [place], [place] Start: 2040 Zoster Vaccines (1 of 2) Zoster Vaccines (1 of 2) [facility] Start: 11-09-2029 DTaP/Tdap/Td vaccine (9 - Td or Tdap) DTaP/Tdap/Td vaccine (9 - Td or Tdap) [facility] Start: 11-09-2029 DTaP/Tdap/Td Vaccines (9 - Td or Tdap) DTaP/Tdap/Td Vaccines (9 - Td or Tdap) [facility] Start: 11-09-2029 Urine microalbumin profile [place] [facility] Start: 09-07-2025 Annual PCP Team Chronic Disease Visit Annual PCP Team Chronic Disease Visit [facility] Start: 07-05-2025 End: 07-05-2025 Patient encounter procedure 07/05/2025 2:30 PM EDT Office Visit Endocrinology [address] [place] [address] Dylan Topete MD [address] [place] [address] follow up/MyChart request Endocrinology Comment on above: follow up/MyChart request Start: 06-01-2025 End: 06-01-2025 Patient encounter procedure 06/01/2025 2:30 PM EDT Office Visit Endocrinology [address] [place] [address] Jennifer Linares APRN.FINANCIAL SERVICES SPECIALIST [address] [place] [address] f/u Endocrinology Comment on above: f/u Start: 06-01-2025 Lipid panel Lipid Panel [facility] Start: 01-19-2025 End: 01-19-2025 Patient encounter procedure 01/19/2025 9:00 AM EST Office Visit Rheumatology [address] [place] [address] Suzette Morales PA-C [address] [place] [address] 3-4 month follow up after seeing Dr. Corea 10/13 Rheumatology Comment on above: 3-4 month follow up after seeing Dr. Romain lee 10/13 Start: 12-01-2024 End: 12-01-2024 Patient encounter procedure 12/01/2024 10:00 AM EDT Office Visit Dermatology [address] [place] [address] Lyssa Mead PA-C [address] [place] [address] Mass of skin [R22.9] Dermatology Comment on above: Mass of skin [R22.9] Start: 11-08-2024 End: 11-08-2024 Patient encounter procedure 11/08/2024 8:45 AM EDT Office Visit [facility] [address] [place] [address] Not sure [facility] Comment on above: Not sure Start: 11-04-2024 End: 11-04-[address] [facility] Start: 11-02-2024 End: 06-02-2025 Cobalamin (Vitamin B12) [Mass/volume] in Serum or Plasma VITAMIN B12 Lab Routine Vitamin B12 deficiency Expected: 11/02/2024, Expires: 06/02/2025 [facility] Comment on above: Expected: 11/02/2024, Expires: Start: 11-02-2024 End: 06-02-2025 Comprehensive metabolic 2000 panel - Serum or Plasma COMPREHENSIVE METABOLIC PANEL Lab Routine Reactive hypoglycemia Expected: 11/02/2024, Expires: 06/02/2025 [facility] Work Phone: Comment on above: Expected: 11/02/2024, Expires: Start: 11-02-2024 End: 11-02-2024 ambulatory 11/02/2024 12:30 PM EDT Results Only [facility] [address] [place] [address] [facility] Start: 11-01-2024 End: 11-01-2024 Patient encounter procedure [facility] Comment on above: Not sure Low Sugar Levels Start: 10-29-2024 End: 01-28-2025 B-HYDROXYBUTYRATE B-HYDROXYBUTYRATE Lab Routine Reactive hypoglycemia Expected: 10/29/2024, Expires: 01/28/2025 [facility] Comment on above: Expected: 10/29/2024, Expires: Start: 10-29-2024 End: 01-28-2025 C peptide [Mass/volume] in Serum or Plasma C-PEPTIDE BLD Lab Routine Reactive hypoglycemia Expected: 10/29/2024, Expires: 01/28/2025 [facility] Comment on above: Expected: 10/29/2024, Expires: Start: 10-29-2024 End: 01-28-2025 Corticotropin [Mass/volume] in Plasma ACTH BLD Lab Routine Reactive hypoglycemia Expected: 10/29/2024, Expires: 01/28/2025 [facility] Comment on above: Expected: 10/29/2024, Expires: Start: 10-29-2024 End: 01-28-2025 Cortisol [Mass/volume] in Serum or Plasma CORTISOL, SERUM Lab Routine Reactive hypoglycemia Expected: 10/29/2024, Expires: 01/28/2025 [facility] Comment on above: Expected: 10/29/2024, Expires: Start: 10-29-2024 End: 01-28-2025 Glucose [Mass/volume] in Serum or Plasma [facility] Work Phone: Comment on above: Ordered: 10/29/2024 Expected: 10/29/2024 , Expires: 01/28/2025 Start: 10-29-2024 End: 01-28-2025 Insulin [Units/volume] in Serum or Plasma INSULIN, TOTAL, SERUM Lab Routine Reactive hypoglycemia Expected: 10/29/2024, Expires: 01/28/2025 [facility] Comment on above: Expected: 10/29/2024, Expires: Start: 10-29-2024 End: 01-28-2025 INSULIN ANTIBODY BLD INSULIN ANTIBODY BLD Lab Routine Reactive hypoglycemia Expected: 10/29/2024, Expires: 01/28/2025 [facility] Comment on above: Expected: 10/29/2024, Expires: Start: 10-29-2024 End: 01-28-2025 PROINSULIN INTACT BLOOD PROINSULIN INTACT BLOOD Lab Routine Reactive hypoglycemia Expected: 10/29/2024, Expires: 01/28/2025 [facility] Comment on above: Expected: 10/29/2024, Expires: Start: 10-29-2024 End: 10-29-2024 ambulatory 10/29/2024 11:00 AM EDT Results Only [facility] Laboratory [address] [place] [address] [facility] Start: 10-29-2024 End: 10-29-2024 Patient encounter procedure 10/29/2024 9:20 AM EDT Office Visit Endocrinology [address] [phone] [place] [address] [address] [id number] hypoglycemia Endocrinology Comment on above: hypoglycemia Start: 10-26-2024 End: 10-26-2024 Patient encounter procedure 10/26/2024 9:40 AM EDT Office Visit Plastic Surgery [address] [place] [address] Isidoro Carmichael MD [address] [place] [address] Mass of skin [R22.9] Plastic Surgery Comment on above: Mass of skin [R22.9] Start: 10-22-2024 End: 10-22-2024 ambulatory 10/22/2024 12:00 PM EDT Results Only [facility] Laboratory [address] [place] [address] [facility] Start: 10-20-2024 End: 10-20-2024 Patient encounter procedure 10/20/2024 12:00 PM EDT Office Visit Endocrinology [address] [place] [address] Gruca, Jennifer, COPING MACHINE ASSEMBLER.FINANCIAL SERVICES SPECIALIST [address] [place], [place] [phone] f/u Endocrinology Comment on above: f/u Start: 10-18-2024 COVID-19 Vaccine ( season) COVID-19 Vaccine ( season) [facility] Start: 10-18-2024 Influenza vaccination [facility] Start: 10-13-2024 End: 01-12-2025 KLAI BY IFA SCREEN KALI BY IFA SCREEN Lab Routine Family history of scleroderma Mass of skin Mechanical back pain Trochanteric bursitis of both hips Tenderness of sacroiliac joint Expected: 10/13/2024, Expires: 01/12/2025 [facility] Comment on above: Expected: 10/13/2024, Expires: Start: 10-13-2024 End: 01-12-2025 Centromere Ab [Presence] in Serum by Immunofluorescence ANTI-CENTROMERE AB Lab Routine Family history of scleroderma Mass of skin Mechanical back pain Trochanteric bursitis of both hips Tenderness of sacroiliac joint Expected: 10/13/2024, Expires: 01/12/2025 [facility] Work Phone: Comment on above: Expected: 10/13/2024, Expires: Start: 10-13-2024 End: 01-12-2025 HLA-B27 PCR HLA-B27 PCR Lab Routine Family history of scleroderma Mass of skin Mechanical back pain Trochanteric bursitis of both hips Tenderness of sacroiliac joint Expected: 10/13/2024, Expires: 01/12/2025 [facility] Comment on above: Expected: 10/13/2024, Expires: Start: 10-13-2024 End: 01-12-2025 PM-SCL-100 IgG Ab [Units/volume] in Serum PM-SCL ANTIBODY Lab Routine Family history of scleroderma Mass of skin Mechanical back pain Trochanteric bursitis of both hips Tenderness of sacroiliac joint Expected: 10/13/2024, Expires: 01/12/2025 [facility] Comment on above: Expected: 10/13/2024, Expires: Start: 10-13-2024 End: 01-12-2025 RNA POLYMERASE III AB RNA POLYMERASE III AB Lab Routine Family history of scleroderma Mass of skin Mechanical back pain Trochanteric bursitis of both hips Tenderness of sacroiliac joint Expected: 10/13/2024, Expires: 01/12/2025 [facility] Comment on above: Expected: 10/13/2024, Expires: Start: 10-13-2024 End: 01-12-2025 SCL-70 extractable nuclear IgG Ab [Units/volume] in Serum by Immunoassay SCLERODERMA IGG AB Lab Routine Family history of scleroderma Mass of skin Mechanical back pain Trochanteric bursitis of both hips Tenderness of sacroiliac joint Expected: 10/13/2024, Expires: 01/12/2025 [facility] Comment on above: Expected: 10/13/2024, Expires: Start: 10-13-2024 End: 01-12-2025 TH/TO ANTIBODY TH/TO ANTIBODY Lab Routine Family history of scleroderma Mass of skin Mechanical back pain Trochanteric bursitis of both hips Tenderness of sacroiliac joint Expected: 10/13/2024, Expires: 01/12/2025 [facility] Comment on above: Expected: 10/13/2024, Expires: Start: 10-13-2024 End: 01-12-2025 Thyrotropin [Units/volume] in Serum or Plasma THYROID STIMULATING HORMONE Lab Routine Family history of scleroderma Mass of skin Mechanical back pain Trochanteric bursitis of both hips Tenderness of sacroiliac joint Cold extremities Expected: 10/13/2024, Expires: 01/12/2025 [facility] Comment on above: Expected: 10/13/2024, Expires: Start: 10-13-2024 End: 01-12-2025 U3RNP FIBRILLARIN AB U3RNP FIBRILLARIN AB Lab Routine Family history of scleroderma Mass of skin Mechanical back pain Trochanteric bursitis of both hips Tenderness of sacroiliac joint Expected: 10/13/2024, Expires: 01/12/2025 [facility] Comment on above: Expected: 10/13/2024, Expires: Start: 10-13-2024 End: 10-13-2024 Patient encounter procedure Family Medicine Ashley Dent Comment on above: med refill Family history of sc leroderma [Z82.69] Start: 10-05-2024 [facility] Start: 09-04-2024 [facility] Start: 08-05-2024 Annual PCP Team Chronic Disease Visit Annual PCP Team Chronic Disease Visit [facility] Start: 06-21-2024 End: 06-21-2024 Patient encounter procedure 06/21/2024 4:30 PM EDT Appointment Radiology [address] [place], [place] [phone] Chronic pain of right ankle [M25.571, G89.29] Radiology Comment on above: Chronic pain of right ankle [M25.571, G8 9.29] Start: 06-03-2024 End: 06-03-2024 Patient encounter procedure 06/03/2024 9:15 AM EDT Office Visit Podiatry [address] [place] [address] [facility] jiangew [address] [place] [address] ankle weakness Podiatry Comment on above: ankle weakness Start: 06-02-2024 End: 06-02-2024 Patient encounter procedure 06/02/2024 2:10 PM EDT Office Visit Endocrinology [address] [place], [place] [id number] Dylan Topete MD [address] [place] [address] If patient is not here by 840 [...] ambulatory 05/24/2024 4:00 PM EDT Results Only [facility] [address] [place] [address] [facility] Start: 05-20-2024 Annual PCP Team Chronic Disease Visit Annual PCP Team Chronic Disease Visit [facility] Start: 05-19-2024 Annual PCP Team Chronic Disease Visit Annual PCP Team Chronic Disease Visit [facility] Start: 05-18-2024 End: 05-18-2024 ambulatory 05/18/2024 11:45 AM EDT Results Only [place] [facility] [address] [place] [address] [facility] E[place] [facility] Start: 04-21-2024 Annual PCP Team Chronic Disease Visit Annual PCP Team Chronic Disease Visit [facility] Start: 04-10-2024 Annual PCP Team Chronic Disease Visit Annual PCP Team Chronic Disease Visit [facility] Start: 2024 End: 11-05-2024 Cobalamin (Vitamin B12) [Mass/volume] in Serum or Plasma VITAMIN B12 Lab Routine Vitamin B12 deficiency Expected: 2024, Expires: 11/05/2024 [facility] Comment on above: Expected: 2024, Expires: Start: 2024 End: 11-05-2024 Comprehensive metabolic 2000 panel - Serum or Plasma COMPREHENSIVE METABOLIC PANEL Lab Routine Reactive hypoglycemia Abnormal glucose Expected: 2024, Expires: 11/05/2024 [facility] Work Phone: Comment on above: Expected: 2024, Expires: Start: 2024 End: 11-05-2024 Hemoglobin A1c in Blood HEMOGLOBIN A1C Lab Routine Reactive hypoglycemia Abnormal glucose Expected: 2024, Expires: 11/05/2024 [facility] Comment on above: Expected: 2024, Expires: Start: 03-09-2024 End: 03-09-2024 Patient encounter procedure Pulmonary Comment on above: follow up asthma follow up asthma Start: 01-29-2024 Annual PCP Team Chronic Disease Visit Annual PCP Team Chronic Disease Visit [facility] Start: 12-17-2023 End: 12-17-2023 Patient encounter procedure 12/17/2023 2:00 PM EDT Office Visit Allergy [address] [address] Nella Payton MD [address] [place] [address] Environmental and seasonal allergies [J30.89] Allergy Comment on above: Environmental and seasonal allergies [J3 0.89] Start: 12-03-2023 End: 12-03-2023 Patient encounter procedure 12/03/2023 3:00 PM EDT [facility] General behavioral Medicine [address] [facility] [address] [place], [place] [address] Chase Bazan, COPING MACHINE ASSEMBLER.FINANCIAL SERVICES SPECIALIST [address] [facility] [address] [place] [address] f/u [facility] General behavioral Medicine Comment on above: f/u Start: 11-27-2023 Annual PCP Team Chronic Disease Visit Annual PCP Team Chronic Disease Visit [facility] Start: 11-19-2023 End: 11-19-2023 Patient encounter procedure 11/19/2023 1:15 PM EDT Office Visit Allergy [address] [address] Nella Payton MD [address] [place] [address] CONSULT TO ALLERGY/IMMUNOLOGY Allergy Comment on above: CONSULT TO ALLERGY/IMMUNOLOGY Start: 11-06-2023 End: 11-06-2023 Patient encounter procedure 11/06/2023 8:25 AM EDT Office Visit Endocrinology [address] [place] [address] Dylan Topete MD [address] [place] [address] f/u Endocrinology Comment on above: f/u Start: 11-03-2023 End: 11-03-2023 Patient encounter procedure Pulmonary Comment on above: routine follow up- asthma routine follow up- asthma Start: 10-28-2023 End: 10-28-2023 Patient encounter procedure 10/28/2023 2:30 PM EDT Office Visit [facility] Pulmonary [address] [place] [phone] Pam Montgomery APRN.FINANCIAL SERVICES SPECIALIST [address] [place] [address] needs forms sign for [facility] Pulmonary Comment on above: needs forms sign for [facility] Start: 10-28-2023 End: 10-28-2023 ambulatory [facility] Comment on above: Severe persistent asthma without complic ation [J45.50] Start: 10-21-2023 End: 10-21-2023 Patient encounter procedure 10/21/2023 2:00 PM EDT [facility] Medicine [address] [address] Chase Bazan APRN.FINANCIAL SERVICES SPECIALIST [address] [facility] [address] [place] [address] [facility] behavioral Medicine Comment on above: deng Start: 10-19-2023 Influenza vaccination [facility] Start: 10-13-2023 End: 10-13-2023 Patient encounter procedure [...] Patient encounter procedure 09/23/2023 4:00 PM EDT [facility] Medicine [address] [facility] [address] [place] [address] Chase Bazan, TIO.FINANCIAL SERVICES SPECIALIST [address] [facility] [address] [place] [address] [facility] behavioral Medicine Comment on above: [facility] Start: 09-16-2023 End: 09-16-2023 ambulatory 09/16/2023 6:15 PM EDT OT/PT/Speech Visit [facility] Physical Therapy [address] [place] [address] Jamey Gardner, PT [address] [place] [address] RIGHT ANKLE PAIN PT [facility] Comment on above: RIGHT ANKLE PAIN PT Start: 09-08-2023 End: 09-08-2023 Patient encounter procedure 09/08/2023 1:00 PM EDT Office Visit Allergy [address] [place] [address] Santiago Rodriguez MD [address] [place] [address] New patient - Allergy testing (patient aware of CPT codes, sent via Mychart) Allergy Comment on above: New patient - Allergy testing (patient a chopra of CPT codes, sent via Mychart) Start: 09-03-2023 End: 09-03-2023 Patient encounter procedure 09/03/2023 12:00 PM EDT Office Visit Endocrinology [address] [place] [address] Jennifer Linares APRN.FINANCIAL SERVICES SPECIALIST [address] [place] [address] hypoglycemia Endocrinology Comment on above: hypoglycemia Start: 08-26-2023 End: 08-26-2023 ambulatory 08/26/2023 5:30 PM EDT OT/PT/Speech Visit [facility] Therapy [address] [place] [address] Jamey Gardner, PT [address] [place], [place] [id number] RIGHT ANKLE PAIN PT [facility] Physical Therapy Comment on above: RIGHT ANKLE PAIN PT Start: 08-26-2023 End: 08-26-2023 Patient encounter procedure 08/26/2023 2:40 PM EDT Office Visit Family Medicine [address] [place] [address] [place] [id number] Donald Snowden, [address] [place] [address] 3mo f/u Family Medicine Comment on above: 3mo f/u Start: 08-23-2023 ANNUAL PCP TEAM CHRONIC DISEASE VISIT ANNUAL PCP TEAM CHRONIC DISEASE VISIT [facility] Start: 08-19-2023 End: 08-19-2023 Patient encounter procedure 08/19/2023 9:00 AM EDT [facility] General behavioral Medicine [address] [place] [address] Chase Bazan, COPING MACHINE ASSEMBLER.FINANCIAL SERVICES SPECIALIST [address] [place] [address] [facility] behavioral Medicine Comment on above: [email or web address] Start: 08-15-2023 End: 08-15-2023 Patient encounter procedure 08/15/2023 4:00 PM EDT [facility] General behavioral Medicine [address] [facility] [address] [place] [address] Chase Bazan, COPING MACHINE ASSEMBLER.FINANCIAL SERVICES SPECIALIST [address] [facility] [address] [place] [address] [facility] behavioral Medicine Comment on above: [email or web address] Start: 08-11-2023 End: 08-11-2023 ambulatory 08/11/2023 3:30 PM EDT OT/PT/Speech Visit [facility] Therapy [address] [place] [address] [employer] spencer[employer], CUSTOM BOOKBINDER [address] [place] [address] RIGHT ANKLE PAIN PT [facility] Therapy Comment on above: RIGHT ANKLE PAIN PT Start: 08-07-2023 End: 08-07-2023 ambulatory 08/07/2023 6:00 PM EDT OT/PT/Speech Visit [facility] Therapy [address] [place] [address] Jamey Gardner, PT [address] [place], [place] [id number] RIGHT ANKLE PAIN PT [facility] Therapy Comment on above: RIGHT ANKLE PAIN PT Start: 07-24-2023 End: 07-24-2023 ambulatory 07/24/2023 4:30 PM EDT OT/PT/Speech Visit [facility] Therapy [address] [place] [address] Jamey Gardner, PT [address] [place] [address] RIGHT ANKLE PAIN PT [facility] Therapy Comment on above: RIGHT ANKLE PAIN PT Start: 07-21-2023 End: 07-21-2023 ambulatory 07/21/2023 5:00 PM EDT OT/PT/Speech Visit [facility] Therapy [address] [place] [place] [address] Jamey Gardner, PT [address] [place] [address] RIGHT ANKLE PAIN [facility] Therapy Comment on above: RIGHT ANKLE PAIN Start: 07-18-2023 End: 07-18-2023 Patient encounter procedure [facility] behavioral Medicine Comment on above: new pt zoom Start: 07-12-2023 ANNUAL PCP TEAM CHRONIC DISEASE VISIT ANNUAL PCP TEAM CHRONIC DISEASE VISIT [facility] Start: 07-08-2023 End: 07-08-2023 ambulatory 07/08/2023 3:00 PM EDT OT/PT/Speech Visit [facility] Therapy [address] [place] [address] Jamey Gardner, PT [address] [place] [address] ankle [facility] Comment on above: ankle Start: 06-30-2023 End: 06-30-2023 ambulatory 06/30/2023 4:15 PM EDT OT/PT/Speech Visit [facility] Therapy [address] [place] [address] Jamey Gardner, PT [address] [place] [address] Ankle Pain PT [facility] Comment on above: Ankle Pain PT Start: 10-18-2022 Influenza vaccination [facility] Start: 09-26-2022 End: 11-26-2022 ALGN HOSKINSTON GRP ALGN HOSKINSTON GRP Lab Routine Late onset asthma, severe persistent, with status asthmaticus Expected: 09/26/2022, Expires: 11/26/2022 [facility] Work Phone: Comment on above: Expected: 09/26/2022, Expires: 3 Start: 09-26-2022 End: 11-26-2022 Aspergillus fumigatus IgE Ab [Units/volume] in Serum ALGN ASPERGILLUS FUMIGATUS IGE Lab Routine Pulmonary eosinophilia (HCC) Late onset asthma, severe persistent, with status asthmaticus Expected: 09/26/2022, Expires: 11/26/2022 [facility] Work Phone: Comment on above: Expected: 09/26/2022, Expires: 3 Start: 09-26-2022 End: 11-26-2022 IgE [Units/volume] in Serum or Plasma IGE BLD Lab Routine Late onset asthma, severe persistent, with status asthmaticus Expected: 09/26/2022, Expires: 11/26/2022 [facility] Work Phone: Comment on above: Expected: 09/26/2022, Expires: 3 Start: 04-05-2022 End: 06-05-2022 Thyroglobulin Ab [Units/volume] in Serum or Plasma THYROGLOBULIN AB Lab Routine Abnormal TSH Expected: 04/05/2022, Expires: 06/05/2022 [facility] Work Phone: Comment on above: Expected: 04/05/2022, Expires: 3 Start: 04-05-2022 End: 06-05-2022 THYROID PEROXIDASE ANTIBODY BLOOD THYROID PEROXIDASE ANTIBODY BLOOD Lab Routine Abnormal TSH Expected: 04/05/2022, Expires: 06/05/2022 [facility] Work Phone: Comment on above: Expected: 04/05/2022, Expires: 3 Start: 04-05-2022 End: 06-05-2022 THYROID STIMULATING IMMUNOGLOBULIN BLOOD THYROID STIMULATING IMMUNOGLOBULIN BLOOD Lab Routine Abnormal TSH Expected: 04/05/2022, Expires: 06/05/2022 [facility] Work Phone: Comment on above: Expected: 04/05/2022, Expires: 3 Start: 03-27-2022 End: 03-27-2022 Patient encounter procedure 03/27/2022 Office Visit Family Medicine Lorri Jackson, DO [address] [place] [address] [facility] Start: 02-17-2022 DEPRESSION ASSESSMENT DEPRESSION ASSESSMENT [facility] Start: 12-12-2021 End: 12-12-2022 Complete PFT pre and post bronchodilator Complete PFT pre and post bronchodilator PFT Routine Moderate persistent asthma, uncomplicated Expected: 12/12/2021 (Approximate), Expires: 12/12/2022 [facility] Work Phone: Comment on above: Expected: 12/12/2021 (Approximate), Expi res: 12/12/2022 Start: 10-18-2021 Influenza vaccination [facility] Start: 05-31-2021 Depression Monitoring Depression Monitoring [facility] Start: 05-31-2021 Hepatitis C screening Hepatitis C screen [facility] Work Phone: Comment on above: Postponed from 1990 (Patient Refus ed) Start: 05-31-2021 HIV screening HIV screen [facility] Work Phone: Comment on above: Postponed from 2005 (Patient Refus ed) Start: 05-14-2021 Cervical cancer screen Cervical cancer screen [place], [place] Start: 05-14-2021 Screening for malignant neoplasm of cervix [facility] Start: 12-01-2020 End: 12-01-2020 Patient encounter procedure 12/01/2020 Office Visit Family Medicine Radha Riojas MD [address] [place] [address], [place] [address] [phone] [facility] Start: 09-06-2020 COVID-19 VACCINE (3 - Booster for Moderna series) COVID-19 VACCINE (3 - Booster for Moderna series) [facility] Start: 09-06-2020 COVID-19 VACCINE (3 - Moderna series) COVID-19 VACCINE (3 - Moderna series) [facility] Start: 2020 HPV TESTING HPV TESTING [facility] Start: 2020 Screening for malignant neoplasm of cervix [facility] Start: 12-15-2019 Influenza vaccination Flu vaccine (#1) [place], [place] Comment on above: Postponed from 10/18/2018 (Patient Refus ed) Start: 10-08-2019 DTaP/Tdap/Td vaccine (8 - Td) DTaP/Tdap/Td vaccine (8 - Td) [place], [place] Comment on above: Postponed from 05/19/2017 (Patient Refus ed) Start: 10-08-2019 HIV screen HIV screen [place], [place] Comment on above: Postponed from 2005 (Patient Refus ed) Start: 10-08-2019 Varicella vaccine (2 of 2 - 2-dose childhood series) Varicella vaccine (2 of 2 - 2-dose childhood series) [place], [place] Comment on above: Postponed from 02/21/1995 (Patient Refus ed) Start: 05-28-2019 End: 05-28-2019 Office Visit 05/28/2019 Office Visit Cardiology Jose Alfredo King MD [address] [place] [address] [phone] [facility] Start: 04-15-2019 End: 04-15-2019 Patient encounter procedure 04/15/2019 Office Visit Cardiology Jose Alfredo King MD [address] [place] [address] [phone] [facility] Start: 2011 PAP TESTING PAP TESTING [facility] Start: 2011 Screening for malignant neoplasm of cervix [facility] Start: 2009 Hepatitis B Vaccine (1 of 3 - 19+ 3-dose series) Hepatitis B Vaccine (1 of 3 - 19+ 3-dose series) [facility] Start: 2009 Hepatitis B Vaccines (1 of 3 - 19+ 3-dose series) Hepatitis B Vaccines (1 of 3 - 19+ 3-dose series) [facility] Start: 2008 Hepatitis C screening [facility] Start: 2008 HEPATITIS C SCREENING HEPATITIS C SCREENING [facility] Start: 2008 HIV SCREENING HIV SCREENING [facility] Start: 2008 HIV screening HIV Screening [facility] Start: 2008 SPIROMETRY SPIROMETRY [facility] Start: 06-17-2007 HPV VACCINE (2 - 3-dose series) HPV VACCINE (2 - 3-dose series) [facility] Start: 06-17-2007 HPV Vaccines (2 - 3-dose series) HPV Vaccines (2 - 3-dose series) [facility] Start: 2005 HIV screening HIV screen [facility] Start: 2002 COVID-19 Vaccine (1) COVID-19 Vaccine (1) [facility] Work Phone: Start: 2002 Depression Monitoring Depression Monitoring [facility] Start: 01-16-2001 PNEUMOCOCCAL (2 - PCV) PNEUMOCOCCAL (2 - PCV) [facility] Start: 01-16-2001 Pneumococcal 0-64 years Vaccine (2 - PCV) Pneumococcal 0-64 years Vaccine (2 - PCV) [facility] Start: 01-16-2001 [facility] Start: 01-16-2001 Pneumococcal Vaccine: Pediatrics (0 to 5 Years) and At-Risk Patients (6 to 49 Years) (2 of 2 - PCV) Pneumococcal Vaccine: Pediatrics (0 to 5 Years) and At-Risk Patients (6 to 49 Years) (2 of 2 - PCV) [facility] Start: 01-16-2001 Pneumococcal Vaccine: Pediatrics (0 to 5 Years) and At-Risk Patients (6 to 64 Years) (2 - PCV) Pneumococcal Vaccine: Pediatrics (0 to 5 Years) and At-Risk Patients (6 to 64 Years) (2 - PCV) [facility] Start: 11-07-1998 Varicella vaccination Varicella Vaccines (2 of 2 - 2-dose childhood series) [facility] Start: 1995 COVID-19 Vaccine (1) COVID-19 Vaccine (1) [facility] Start: 1990 COVID-19 VACCINE (#1) COVID-19 VACCINE (#1) [facility] Start: 1990 HEPATITIS B (1 of 3 - 3-dose series) HEPATITIS B (1 of 3 - 3-dose series) [facility] Start: 1990 Hepatitis B Vaccine (1 of 3 - 3-dose series) Hepatitis B Vaccine (1 of 3 - 3-dose series) [facility] Start: 1990 Hepatitis B Vaccines (1 of 3 - 3-dose series) Hepatitis B Vaccines (1 of 3 - 3-dose series) [facility] Start: 1990 HIV screening HIV Screening [facility] 25-hydroxyvitamin D3 [Mass/volume] in Serum or Plasma VITAMIN D 25 HYDROXY Lab Routine Vitamin D deficiency Ordered: 04/02/2022 [facility] Work Phone: Comment on above: Ordered: 04/02/2022 KALI BY IFA WITH REFLEX KALI BY IF A WITH REFLEX Lab Routine Skin sensitivity Ordered: 09/07/2024 [facility] Work Phone: Comment on above: Ordered: 09/07/2024 End: 03-11-2022 Bacteria identified in Lower respiratory specimen by Aerobe culture Respiratory culture Microbiology STAT STAT (Lab) for 1 Occurrences starting 03/11/2022 until 03/11/2022 [facility] Comment on above: STAT (Lab) for 1 Occurrences starting until 03/11/2022 End: 03-04-2019 Cardiac event monitor Cardiac event monitor Cardiac Services Routine Syncope, unspecified syncope type Lightheadedness Orthostatic hypotension Palpitations 1 Occurrences starting 03/04/2019 until 03/04/2019 [facility] Work Phone: Comment on above: 1 Occurrences starting 03/04/2019 until 03/04/2019 CBC W Auto Different ial panel - Blood CBC + DIFF Lab Routine Encounter for annual general medical examination without abnormal findings in adult Ordered: 04/02/2022 [facility] Work Phone: Comment on above: Ordered: 04/02/2022 CBC W Auto Different ial panel - Blood COMPLETE BLOOD COUNT AND DIFFERENTIAL Lab Routine Bruising Ordered: 09/07/2024 [facility] Comment on above: Ordered: 09/07/2024 Comprehensive metabo lic 2000 panel - Serum or Plasma COMP METABOLIC PANEL Lab Routine Encounter for annual general medical examination without abnormal findings in adult Ordered: 04/02/2022 [facility] Work Phone: Comment on above: Ordered: 04/02/2022 Comprehensive metabo lic 2000 panel - Serum or Plasma COMP METABOLIC PANEL Lab Routine Lightheaded Ordered: 04/10/2023 [facility] Work Phone: Comment on above: Ordered: 04/10/2023 End: 04-21-2019 Cortisol Total Cortisol Total Lab Routine Orthostatic hypotension 1 Occurrences starting 04/21/2019 until 04/21/2019 [facility] on above: 1 Occurrences starting 04/21/2019 until 04/21/2019 Cortisol Total Cortisol Total L ab Routine Orthostatic hypotension 04/21/2019 8:02 AM [facility] COVID & INFLUENZA A/ B & RSV NAAT, ROUTINE COVID & INFLUENZA A/B & RSV NAAT, ROUTINE Microbiology Routine Viral URI with cough Ordered: 12/06/2022 [facility] Work Phone: Comment on above: Ordered: 12/06/2022 COVID & INFLUENZA A/ B & RSV NAAT, ROUTINE COVID & INFLUENZA A/B & RSV NAAT, ROUTINE Microbiology Routine Viral URI with cough Ordered: 05/23/2023 [facility] Work Phone: Comment on above: Ordered: 05/23/2023 EKG 12 Lead - Chest Pain EKG 12 Lead - Chest Pain ECG STAT 12/21/2018 9:09 PM [facility] Erythrocyte sediment ation rate SEDIMENTATION RATE, WESTERGREN Lab Routine Skin sensitivity Ordered: 09/07/2024 [facility] Comment on above: Ordered: 09/07/2024 Hemoglobin A1c in Blood HGB A1C Lab Routine Encounter for annual general medical examination without abnormal findings in adult Ordered: 04/02/2022 [facility] Work Phone: Comment on above: Ordered: 04/02/2022 Hemoglobin A1c in Blood HGB A1C Lab Routine Lightheaded Hypoglycemia Ordered: 04/10/2023 [facility] Work Phone: Comment on above: Ordered: 04/10/2023 End: 08-10-2021 INITIATE PACU OXYGEN THERAPY PROTOCOL Initiate PACU Oxygen Therapy Protocol Respiratory Care Routine Continuous until discontinued starting 08/10/2021 [employer] Work Phone: Comment on above: Continuous until discontinued starting 0 08/10/2021 End: 08-10-2021 Intermittent pulse oximetry Pulse Oximetry Spot Check Respiratory Care Routine One Time for 1 Occurrences starting 08/10/2021 until 08/10/2021 [employer] Work Phone: Comment on above: One Time for 1 Occurrences starting 07/19 until 08/10/2021 Iron and Iron bindin g capacity panel - Serum or Plasma IRON + TIBC Lab Routine Fatigue, unspecified type Ordered: 04/02/2022 [facility] Work Phone: Comment on above: Ordered: 04/02/2022 Iron and Iron bindin g capacity panel - Serum or Plasma IRON + TIBC Lab Routine Lightheaded Ordered: 04/10/2023 [facility] Work Phone: Comment on above: Ordered: 04/10/2023 Lipid 1996 panel - S abdias or Plasma LIPID PANEL BASIC Lab Routine Encounter for annual general medical examination without abnormal findings in adult Ordered: 04/02/2022 [facility] Work Phone: Comment on above: Ordered: 04/02/2022 End: 07-03-2025 MR Ankle - right WO contrast MRI ANKLE WO IVCON RIGHT Radiology Routine Chronic pain of right ankle 1 Occurrences starting 06/03/2024 until 07/03/2025 [facility] Work Phone: Comment on above: 1 Occurrences starting 06/03/2024 until 07/03/2025 Nasal Cannula Oxygen Nasal Cannu la Oxygen Respiratory Care Routine As Needed until discontinued starting 08/10/2021 [facility] Work Phone: Comment on above: As Needed until discontinued starting Nasal Cannula Oxygen Nasal Cannu la Oxygen Respiratory Care Routine As Needed until discontinued starting 08/10/2021 [facility] Work Phone: Comment on above: As Needed until discontinued starting Nonrebreather mask oxygen Nonreb reather mask oxygen Respiratory Care Routine As Needed until discontinued starting 08/10/2021 [facility] Work Phone: Comment on above: As Needed until discontinued starting Nonrebreather mask oxygen Nonreb reather mask oxygen Respiratory Care Routine As Needed until discontinued starting 08/10/2021 [facility] Work Phone: Comment on above: As Needed until discontinued starting Oxygen therapy [[facility] Data Set] Initiate Oxygen Therapy Protocol Respiratory Care Routine As Needed until discontinued starting 08/10/2021 [facility] Work Phone: Comment on above: As Needed until discontinued starting Patient Education [facility] Work Phone: End: 08-10-2021 , urine LAB , urine LAB Lab STAT One Time for 1 Occurrences starting 08/10/2021 until 08/10/2021 [facility] Work Phone: Comment on above: One Time for 1 Occurrences starting 07/19 until 08/10/2021 End: 09-21-2023 Radiologic exam chest 2 views XR CHEST 2V FRONTAL/LAT Radiology Routine SOB (shortness of breath) Wheezing Mild intermittent asthma with acute exacerbation 1 Occurrences starting 08/22/2022 until 09/21/2023 [facility] Work Phone: Comment on above: 1 Occurrences starting 08/22/2022 until 09/21/2023 End: 03-11-2022 Respiratory pathogens DNA and RNA panel - Lower respiratory specimen by ALYCIA with non-probe detection Pneumonia PCR Panel Microbiology STAT STAT (Lab) for 1 Occurrences starting 03/11/2022 until 03/11/2022 [facility] Work Phone: Comment on above: STAT (Lab) for 1 Occurrences starting until 03/11/2022 Rheumatoid factor [Units/volume] in Serum or Plasma RHEUMATOID FACTOR Lab Routine Skin sensitivity Ordered: 09/07/2024 [facility] Comment on above: Ordered: 09/07/2024 ROUTINE FLU A/B + RSV ROUTINE FL U A/B + RSV Lab Routine Viral URI with cough Ordered: 12/06/2022 [facility] Work Phone: Comment on above: Ordered: 12/06/2022 SARS-CoV-2 (COVID-19 ) RNA [Presence] in Respiratory specimen by ALYCIA with probe detection COVID NAAT, UPPER RESPIRATORY, ROUTINE Microbiology Routine Viral URI with cough Ordered: 12/06/2022 [facility] Work Phone: Comment on above: Ordered: 12/06/2022 SPIROMETRY - BASELIN E AND POST DILATOR SPIROMETRY - BASELINE AND POST DILATOR PFT Routine Severe persistent asthma without complication 10/28/2023 1:23 PM EDT [facility] Work Phone: Spirometry panel Incentive koki metry Respiratory Care Routine Q1H PRN until discontinued starting 08/10/2021 [facility] Work Phone: Comment on above: Q1H PRN until discontinued starting 07/19 SPIROMETRY WITH DILA TOR IF OBSTRUCTED SPIROMETRY WITH DILATOR IF OBSTRUCTED PFT Routine Mild persistent asthma without complication 09/26/2022 12:32 PM EDT [facility] Work Phone: Thyrotropin [Units/v olume] in Serum or Plasma TSH BLD Lab Routine Fatigue, unspecified type Ordered: 04/02/2022 [facility] Work Phone: Comment on above: Ordered: 04/02/2022 Thyroxine (T4) free [Mass/volume] in Serum or Plasma T4 FREE/FREE THYROX Lab Routine Fatigue, unspecified type Ordered: 04/02/2022 [facility] Work Phone: Comment on above: Ordered: 04/02/2022 Triiodothyronine (T3 ) Free [Mass/volume] in Serum or Plasma T3 FREE BLD Lab Routine Fatigue, unspecified type Ordered: 04/02/2022 [facility] Work Phone: Comment on above: Ordered: 04/02/2022 End: 11-12-2025 XR Lumbar spine AP and Lateral XR LUMBAR LIMITED 2V AP/LAT Radiology Routine Family history of scleroderma Mass of skin Mechanical back pain Trochanteric bursitis of both hips Tenderness of sacroiliac joint 1 Occurrences starting 10/13/2024 until 11/12/2025 [facility] Comment on above: 1 Occurrences starting 10/13/2024 until 11/12/2025 End: 11-12-2025 XR Sacroiliac Joint Views XR SACROILIAC JOINTS 2V AP PELVIS/FERGUESON Radiology Routine Family history of scleroderma Mass of skin Mechanical back pain Trochanteric bursitis of both hips Tenderness of sacroiliac joint 1 Occurrences starting 10/13/2024 until 11/12/2025 [facility] Comment on above: 1 Occurrences starting 10/13/2024 until 11/12/2025 End: 11-12-2025 XR Thoracic spine AP and Lateral XR THORACIC LIMITED 2V AP/LAT Radiology Routine Family history of scleroderma Mass of skin Mechanical back pain Trochanteric bursitis of both hips Tenderness of sacroiliac joint 1 Occurrences starting 10/13/2024 until 11/12/2025 [facility] Comment on above: 1 Occurrences starting 10/13/2024 until 11/12/2025 [facility] Immunizations Immunization Date Immunization Notes Care Provider Eliseo butterfield 11-30-2020 influenza, injectabl e, quadrivalent, preservative free Man Marcos DPM Work Phone: [facility] Work Phone: 11-30-2020 influenza virus vacc ine, unspecified formulation Robson Zuniga MD Work Phone: [facility] 11-25-2019 influenza, injectabl e, quadrivalent, contains preservative Donald Snowden DO Work Phone: [facility] [facility] 11-25-2019 influenza, injectable,quadrivalent, preservative free, pediatric Man Marcos DPM Work Phone: [facility] Work Phone: 11-10-2019 tetanus toxoid, redu alessandra diphtheria toxoid, and acellular pertussis vaccine, adsorbed Anthony Weathers MD Work Phone: [facility] Work Phone: 01-11-2019 influenza, injectabl e, quadrivalent, contains preservative Liliya Baeza [employer]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 [employer]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 Work Phone: [facility] Work Phone: 11-17-2017 influenza, injectabl e, quadrivalent, contains preservative [facility] 11-18-2016 influenza, injectabl e, quadrivalent, contains preservative [facility] 12-19-2015 influenza, injectabl e, quadrivalent, contains preservative Donald Jhon DO Work Phone: [facility] 12-19-2015 influenza, injectabl e, quadrivalent, preservative free [facility] 12-07-2014 influenza nasal, unspecified formulation Donald Kohara DO Work Phone: [facility] 12-07-2014 influenza virus vacc ine, unspecified formulation [facility] 12-07-2014 influenza, seasonal, injectable, preservative free Donald Kohara DO Work Phone: [facility] 12-16-2013 influenza virus vacc ine, unspecified formulation [facility] [place] 12-16-2013 influenza, seasonal, injectable Donald Kohara DO Work Phone: [facility] 05-20-2007 human papilloma viru s vaccine, quadrivalent [facility] 05-20-2007 tetanus toxoid, redu alessandra diphtheria toxoid, and acellular pertussis vaccine, adsorbed [facility] 05-20-2007 HPV, unspecified formulation Carlos Alcantaraya DO Work Phone: [facility] 01-03-2007 influenza virus vacc ine, whole virus [facility] 12-14-2005 influenza virus vacc ine, whole virus [facility] 07-16-2002 diphtheria, tetanus toxoids and acellular pertussis vaccine, unspecified formulation [facility] [place] 01-17-2000 pneumococcal polysaccharide vaccine, 23 valent [facility] 10-10-1998 measles, mumps and rubella virus vaccine [facility] 10-23-1995 diphtheria, tetanus toxoids and acellular pertussis vaccine, unspecified formulation [facility] [place] 10-23-1995 poliovirus vaccine, inactivated Donald Kohara DO Work Phone: [facility] 10-23-1995 poliovirus vaccine, unspecified formulation [facility] [place] 11-29-1994 varicella virus vaccine [facility] 10-12-1991 diphtheria, tetanus toxoids and acellular pertussis vaccine, unspecified formulation [facility] [place] 10-12-1991 poliovirus vaccine, inactivated Donald Kohara DO Work Phone: [facility] 10-12-1991 poliovirus vaccine, unspecified formulation [facility] [place] 07-13-1991 haemophilus influenz ae type b vaccine, conjugate unspecified formulation [facility] [place] 07-13-1991 haemophilus influenz ae type b vaccine, PRP-T conjugate Donald Jhon DO Work Phone: [facility] 07-13-1991 measles, mumps and rubella virus vaccine [facility], [place] 1990 diphtheria, tetanus toxoids and acellular pertussis vaccine, unspecified formulation [facility] [place] 1990 haemophilus influenz ae type b vaccine, conjugate unspecified formulation [facility] [place] 1990 haemophilus influenz ae type b vaccine, PRP-T conjugate Donald Kohara DO Work Phone: [facility] 1990 diphtheria, tetanus toxoids and acellular pertussis vaccine, unspecified formulation [facility] [place] 1990 haemophilus influenz ae type b vaccine, conjugate unspecified formulation [facility] [place] 1990 haemophilus influenz ae type b vaccine, PRP-T conjugate Donald Kohara DO Work Phone: [facility] 1990 poliovirus vaccine, inactivated Donald Kohara DO Work Phone: [facility] 1990 poliovirus vaccine, unspecified formulation [facility] [place] 1990 diphtheria, tetanus toxoids and acellular pertussis vaccine, unspecified formulation [facility] [place] 1990 haemophilus influenz ae type b vaccine, conjugate unspecified formulation [facility] [place] 1990 haemophilus influenz ae type b vaccine, PRP-T conjugate Dnoald Snowden DO Work Phone: [facility] 1990 poliovirus vaccine, inactivated [facility] Work Phone: [facility] 1990 poliovirus vaccine, unspecified formulation [facility] [place] Payers Date Payer Category Payer Self-pay 2023 [facility] [id number] 2022 Unknown [id number] 2021 Unknown 2019 [facility] Managed Care - O [facility] CROSS [id number] 2019 Unknown BCBS BCBS OUT OF STATE xxxxxxxxxxxxxxx 2019-Present [address] [place] [address] xxxxxxxxxxxxxxx [id number] 2019 Unknown [id number] 2018 Unknown UMR UMR xxxxxxxx 2018-Present [address] [place] [address] xxxxxxxx [id number] 1990 Unknown [id number] 1990 Unknown [id number] 59 1990 Unknown [id number] 27 1990 Unknown [id number] 59 1990 Unknown [id number] 59 1990 Unknown [id number] 59 1990 Unknown [id number] 59 Unknown [id number] Unknown [id number] Unknown [id number] Unknown [id number] Unknown [id number] Unknown [id number] 62 Unknown [id number] 62 Social History Date Type Detail Facility Start: 04-15-2019 End: 04-02-2022 Tobacco smoking status NHIS Never smoker [place], [place] Start: 04-15-2019 End: 12-07-2024 Alcohol intake Current non-drinker of alcohol (finding) [facility] Work Phone: Start: 1990 Sex Assigned At Not on file M [place], [place] Start: 12-21-2018 End: 12-07-2024 Alcohol intake No [facility] Start: 07-29-2020 End: 04-02-2022 Tobacco use and exposure Never used [facility] Start: 05-31-2020 End: 03-27-2022 History SDOH Alcohol Frequency 1 [facility] Work Phone: Start: 05-31-2020 History SDOH Alcohol Std Drinks 99 [facility] Work Phone: Start: 05-31-2020 End: 03-27-2022 History SDOH Financial 3 [facility] Work Phone: Start: 05-31-2020 End: 03-27-2022 History SDOH Transport Med 2 [facility] Work Phone: Start: 07-31-2021 End: 03-11-2022 Exposure to SARS-CoV-2 (event) Not sure [facility] Start: 03-27-2022 History SDOH Alcohol Std Drinks 0 [facility] Start: 03-27-2022 History SDOH Social Connections Phone 5 [facility] Start: 03-27-2022 End: 12-07-2024 History of Social function [place] [employer] [facility] Do you belong to any clubs or organizations such as quaker groups, unions, fraternal or athletic groups, or school groups? No [facility] Are you now , , , , never or living with a partner? [facility] How often to you hav e a drink containing alcohol? Monthly or less [facility] Start: 01-19-[address] inks containing alcohol do you have on a typical day? Patient does not drink [facility] How often do you hav e 6 or more drinks on 1 occasion? Never [facility] Do you feel stress - tense, restless, nervous, or anxious, or unable to sleep at night because your mind is troubled all the time - these days [OSQ] Very much [facility] (I/We) worried wheth er (my/our) food would run out before (I/we) got money to buy more. Never true [facility] Start: 03-11-2023 End: 10-29-2024 Alcohol intake Current drinker of alcohol (finding) [facility] Start: 03-11-2023 Alcohol Comment social [facility] Sex Assigned At [facility] How hard is it for y ou to pay for the very basics like food, housing, medical care, and heating Not very hard [facility] Do you belong to any clubs or organizations such as quaker groups, unions, [employer] or athletic groups, or school groups? Yes [facility] How hard is it for y ou to pay for the very basics like food, housing, medical care, and heating Somewhat hard [facility] Do you feel stress - tense, restless, nervous, or anxious, or unable to sleep at night because your mind is troubled all the time - these days [OSQ] Rather much [facility] Start: 08-25-2019 Alcohol Alcohol [facility] Start: 08-25-2019 Lives Lives [facility] Start: 07-28-2019 Tobacco Use Tobacco Use [facility] Start: 1990 Sex Assigned At Female [facility] Do you feel stress - tense, restless, nervous, or anxious, or unable to sleep at night because your mind is troubled all the time - these days [OSQ] To some extent [facility] The food that (I/we) bought just didn't last, and (I/we) didn't have money to get more. Sometimes true [facility] Start: 09-17-2021 Sex Female (finding) [facility] Procedure Code Equipment Code Equipment Origin al Text Equipment Identifier Dates [id number], [id number], [id number], [id number] Start: 04-11-2023 End: 06-02-2024 Comment on above: [...] questions. Functional Status Date Assessment Result Facility 12-07-2024 Total score [AUDIT-C] 0 12/08/19 1:27 PM Theresa Pascal RN [facility] 04-13-2023 Are you deaf, or do you have serious difficulty hearing No 04/13/2023 12:36 PM Bekah Broderick RN No [facility] 04-13-2023 Are you blind, or do you have serious difficulty seeing, even when wearing glasses No 04/13/2023 12:36 PM Bekah Broderick RN No [facility] 04-13-2023 Do you have serious difficulty walking or climbing stairs No 04/13/2023 12:36 PM Bekah Broderick RN No [facility] 04-13-2023 Do you have difficul ty dressing or bathing No 04/13/2023 12:36 PM Bekah Broderick RN No [facility] 04-13-2023 Because of a physica l, mental, or emotional condition, do you have difficulty doing errands alone such as visiting a physician's office or shopping No 04/13/2023 12:36 PM Bekah Broderick RN No [facility] 04-11-2023 Functional Status Assistive Device None A [facility] 04-11-2023 Functional Status Standard Safet y ID band on, Safety level maintained [facility] Mental Status Date Assessment Result Facility 10-05-2024 Cognitive function Level Of Cons ciousness Awake;Alert;Appropriate;Fol lows Commands [facility] Work Phone: 09-04-2024 Cognitive function Level Of Cons ciousness Awake;Alert;Appropriate;Fol lows Commands [facility] Work Phone: 04-13-2023 Because of a physica l, mental, or emotional condition, do you have serious difficulty concentrating, remembering, or making decisions No 04/13/2023 12:36 PM Bekah Broderick RN No [facility] 04-11-2023 Mental Status Orientation Oriented x 4 [facility] 04-11-2023 Mental Status [facility] Clinical Notes 08-08-2016 to 12-07-2024 Discharge InstructionsAttachmentsDO Deysi Lay 12/07/2024 1:20 PM Maria Dolores Fajardo RN - 12/07/2024 1:20 PM Maria Dolores Fajardo RN - 12/07/2024 1:20 PM EDTPatient InstructionsPatient Instructions Note Date & Type Note Facility 12-07-2024 Hospital Discharg e instructions Carlos Saunders DO - 12/07/2024 1:33 PM EDT If you need to use your inhaler more frequently than every 4 hours, or if you have increasing difficulty breathing or chest discomfort return to the ER. Otherwise follow-up with your primary care physician as needed. The following attachments cannot be sent through Care Everywhere.Asthma, Adult ED (Finnish)documented in this encounter [facility] 12-07-2024 Emergency department Note EMERGENCY DEPARTMENT ENCOUNTER Pt Name: Irvin Kline Birthdate 1990 Date of evaluation: 12/07/2024 ED Provider: Carlos Saunders DO CHIEF COMPLAINT Chief Complaint Patient presents with Shortness of Breath HISTORY OF PRESENT ILLNESS (Location/Symptom, Timing/Onset, Context/Setting, Quality, Duration, Modifying Factors, Severity) Note limiting factors. I wore appropriate PPE for the entirety of this encounter. HPI Irvin Kline is a 34 y.o. who presents to the emergency department with chief complaint of shortness of breath. Patient has a history of asthma and says that she typically has flares with weather changes. No recent sick contacts. Endorses dyspnea with a nonproductive cough and some chest tightness from coughing. Denies fevers, vomiting, other URI symptoms, calf pain or swelling. Nursing Notes were reviewed. Limitations to history: None Outside historians: None REVIEW OF SYSTEMS Review of Systems Pertinent positives and negatives as per HPI. PAST MEDICAL HISTORY Medical History[1] SURGICAL HISTORY Surgical History[2] CURRENT MEDICATIONS Previous Medications ALBUTEROL 108 (90 [...] Ceftriaxone, Sulfamethoxazole-trimethoprim, Morphine, and Trimethoprim FAMILY HISTORY Family History[3] SOCIAL HISTORY Social History[4] SCREENINGS [place] Coma Scale Best Eye Response: Spontaneous Best Verbal Response: Oriented Best Motor Response: Follows commands [place] Coma Scale Score: 15 PHYSICAL EXAM ED Triage Vitals [12/07/24 1326] Temp Heart Rate Resp BP 36.4 C (97.5 F) 63 18 101/66 SpO2 Temp Source Heart Rate Source Patient Position 100 % Oral -- Lying BP Location FiO2 (%) Right arm -- Physical Exam Vitals and nursing note reviewed. Constitutional: General: She is not in acute distress. Appearance: She is well-developed. She is not ill-appearing or toxic-appearing. HENT: Head: Normocephalic and atraumatic. Nose: Nose normal. Eyes: Extraocular Movements: Extraocular movements intact. Neck: Vascular: No JVD. Trachea: No tracheal deviation. Cardiovascular: Rate and Rhythm: Normal rate and regular rhythm. Pulses: Normal pulses. Heart sounds: Normal heart sounds. Pulmonary: Effort: Pulmonary effort is normal. No tachypnea, accessory muscle usage or respiratory distress. Breath sounds: Wheezing present. Chest: Chest wall: No tenderness or crepitus. Abdominal: Palpations: Abdomen is soft. Tenderness: There is no abdominal tenderness. Musculoskeletal: General: Normal range of motion. Cervical back: Normal range of motion and neck supple. Right lower leg: No tenderness. No edema. Left lower leg: No tenderness. No edema. Skin: General: Skin is warm and dry. Capillary Refill: Capillary refill takes less than 2 seconds. Neurological: General: No focal deficit present. Mental Status: She is alert. Mental status is at baseline. DIAGNOSTIC RESULTS Interpretation per the Radiologist below, if available at the time of this note: No orders to display ED BEDSIDE ULTRASOUND: Performed by ED Physician - none LABS: Labs Reviewed - No data to display All other labs were within normal range or not returned as of this dictation. EMERGENCY DEPARTMENT COURSE and DIFFERENTIAL DIAGNOSIS/MDM: Vitals: Vitals: 12/07/24 1326 BP: 101/66 BP Location: Right arm Patient Position: Lying Pulse: 63 Resp: 18 Temp: 36.4 C (97.5 F) TempSrc: Oral SpO2: 100% Weight: 94.8 kg (209 lb) Height: 1.626 m (5' 4") Diagnoses as of 12/07/24 1346 Mild asthma with exacerbation, unspecified whether persistent The patient presented with chief complaint of shortness of breath. The differential diagnosis associated with this patient's presentation includes asthma exacerbation, pneumothorax, pneumonia. Our workup consisted of ordering/reviewing: Medications. Patient is in agreement with this plan. Medications ipratropium-albuterol (Duo-Neb) 0.5-2.5 mg/3 mL nebulizer solution 3 mL (has no administration in time range) predniSONE (Deltasone) tablet 50 mg (has no administration in time range) REVAL: Patient presenting to the ED for shortness of breath and cough. Her vitals are reviewed and stable. She is saturating 100% on room air and does not have any increased work of breathing. She is conversational without dyspnea. She has wheezing in all lung dangelo. Suspect likely asthma exacerbation and low concern for pneumothorax or pneumonia given her equal lung sounds. She was treated with a DuoNeb and will be started on a course of steroids. She was given strict return precautions for worsening symptoms. CRITICAL CARE TIME CONSULTS: None PROCEDURES: Unless otherwise noted below, none Procedures Patients symptoms are consistent with sepsis, severe sepsis, or septic shock (If yes use ".sepsiscoremeasure"): FINAL IMPRESSION 1. Mild asthma with exacerbation, unspecified whether persistent DISPOSITION Discharge 12/07/2024 01:32:50 PM PATIENT REFERRED TO: [address] [facility] [id number] DISCHARGE MEDICATIONS: New Prescriptions ALBUTEROL 108 (90 BASE) MCG/ACT INHALER Inhale 2 puffs every 4 hours as needed for wheezing. PREDNISONE (DELTASONE) 50 MG TABLET Take 1 tablet (50 mg) by mouth daily for 5 days. (Comment: Please note this report has been produced using speech recognition software and may contain errors related to that system including errors in grammar, punctuation, and spelling, as well as words and phrases that may be inappropriate. If there are any questions or concerns please feel free to contact the dictating provider for clarification.) Carlos Saunders DO (electronically signed) Emergency Medicine Provider [1] Past Medical History: Diagnosis Date Acute anal fissure Anxiety Asthma (HHS/HCC) Depression Dysmenorrhea Eczema Fatigue Insomnia Otalgia of left ear Palpitations (HHS/HCC) [2] Past Surgical History: Procedure Laterality Date ANKLE SURGERY Right 08/10/2021 Lateral collateral ligament repair SECTION (HISTORICAL) 01/27/2020 SECTION (HISTORICAL) 08/07/2016 CHOLECYSTECTOMY COLONOSCOPY GALLBLADDER SURGERY N/A Oct 2014 Removal MOUTH SURGERY OTHER SURGICAL HISTORY Right Ultra Sound [3] Family History Problem Relation Name Age of Onset Depression Mother Depression Father Cervical cancer Mother's Sister Heart disease Other Heart attack Maternal Grandfather [4] Social History Socioeconomic History Marital status: Tobacco Use Smoking status: Never Smokeless tobacco: Never Vaping Use Vaping status: Never Used Substance and Sexual Activity Alcohol use: No Drug use: No Social Drivers of Health Financial Resource Strain: Low Risk (09/06/2024) Received from [facility] Overall Financial Resource Strain (CARDIA) Difficulty of Paying Living Expenses: Not hard at all Food Insecurity: Food Insecurity Present (09/06/2024) Received from [facility] Hunger Vital Sign Worried About Running Out of Food in the Last Year: Never true Ran Out of Food in the Last Year: Sometimes true Transportation Needs: No Transportation Needs (09/06/2024) Received from [facility] PRAPARE - Transportation Lack of Transportation (Medical): No Lack of Transportation (Non-Medical): No Physical Activity: Inactive (09/06/2024) Received from [facility] Exercise Vital Sign Days of Exercise per Week: 5 days Minutes of Exercise per Session: 0 min Stress: Stress Concern Present (09/06/2024) Received from [facility] [place] [employer] - Occupational Stress Questionnaire Feeling of Stress : To some extent Social Connections: Moderately Integrated (09/06/2024) Received from [facility] Social Connection and Isolation Panel [NHANES] Frequency of Communication with Friends and Family: More than three times a week Frequency of Social Gatherings with Friends and Family: Patient declined Attends Christian Services: More than 4 times per year Active Member of Clubs or Organizations: No Attends Club or Organization Meetings: Never Marital Status: Housing Stability: Unknown (09/06/2024) Received from [facility] Housing Stability Vital Sign Unable to Pay for Housing in the Last Year: No Carlos Saunders DO 12/07/24 1348 Pt ambulatory to room 5 with c/o shortness of breath and cough x 3 days. Pt reports cough is non productive in nature. Pt states shortness of breath is increased with exertion and is not improve with use of breathing treatments at home and inhalers. documented in this encounter [facility] 12-07-2024 Emergency department Triage note Pt ambulatory to room 5 with c/o shortness of breath and cough x 3 days. Pt reports cough is non productive in nature. Pt states shortness of breath is increased with exertion and is not improve with use of breathing treatments at home and inhalers. [facility] 12-07-2024 Physician Emergency department Note EMERGENCY DEPARTMENT ENCOUNTER Pt Name: Irvin Kline Birthdate 1990 Date of evaluation: 12/07/2024 ED Provider: Carlos Saunders DO CHIEF COMPLAINT Chief Complaint Patient presents with Shortness of Breath HISTORY OF PRESENT ILLNESS (Location/Symptom, Timing/Onset, Context/Setting, Quality, Duration, Modifying Factors, Severity) Note limiting factors. I wore appropriate PPE for the entirety of this encounter. HPI Irvin Kline is a 34 y.o. who presents to the emergency department with chief complaint of shortness of breath. Patient has a history of asthma and says that she typically has flares with weather changes. No recent sick contacts. Endorses dyspnea with a nonproductive cough and some chest tightness from coughing. Denies fevers, vomiting, other URI symptoms, calf pain or swelling. Nursing Notes were reviewed. Limitations to history: None Outside historians: None REVIEW OF SYSTEMS Review of Systems Pertinent positives and negatives as per HPI. PAST MEDICAL HISTORY Medical History[1] SURGICAL HISTORY Surgical History[2] CURRENT MEDICATIONS Previous Medications ALBUTEROL 108 (90 [...] Ceftriaxone, Sulfamethoxazole-trimethoprim, Morphine, and Trimethoprim FAMILY HISTORY Family History[3] SOCIAL HISTORY Social History[4] SCREENINGS [place] Coma Scale Best Eye Response: Spontaneous Best Verbal Response: Oriented Best Motor Response: Follows commands [place] Coma Scale Score: 15 PHYSICAL EXAM ED Triage Vitals [12/07/24 1326] Temp Heart Rate Resp BP 36.4 C (97.5 F) 63 18 101/66 SpO2 Temp Source Heart Rate Source Patient Position 100 % Oral -- Lying BP Location FiO2 (%) Right arm -- Physical Exam Vitals and nursing note reviewed. Constitutional: General: She is not in acute distress. Appearance: She is well-developed. She is not ill-appearing or toxic-appearing. HENT: Head: Normocephalic and atraumatic. Nose: Nose normal. Eyes: Extraocular Movements: Extraocular movements intact. Neck: Vascular: No JVD. Trachea: No tracheal deviation. Cardiovascular: Rate and Rhythm: Normal rate and regular rhythm. Pulses: Normal pulses. Heart sounds: Normal heart sounds. Pulmonary: Effort: Pulmonary effort is normal. No tachypnea, accessory muscle usage or respiratory distress. Breath sounds: Wheezing present. Chest: Chest wall: No tenderness or crepitus. Abdominal: Palpations: Abdomen is soft. Tenderness: There is no abdominal tenderness. Musculoskeletal: General: Normal range of motion. Cervical back: Normal range of motion and neck supple. Right lower leg: No tenderness. No edema. Left lower leg: No tenderness. No edema. Skin: General: Skin is warm and dry. Capillary Refill: Capillary refill takes less than 2 seconds. Neurological: General: No focal deficit present. Mental Status: She is alert. Mental status is at baseline. DIAGNOSTIC RESULTS Interpretation per the Radiologist below, if available at the time of this note: No orders to display ED BEDSIDE ULTRASOUND: Performed by ED Physician - none LABS: Labs Reviewed - No data to display All other labs were within normal range or not returned as of this dictation. EMERGENCY DEPARTMENT COURSE and DIFFERENTIAL DIAGNOSIS/MDM: Vitals: Vitals: 12/07/24 1326 BP: 101/66 BP Location: Right arm Patient Position: Lying Pulse: 63 Resp: 18 Temp: 36.4 C (97.5 F) TempSrc: Oral SpO2: 100% Weight: 94.8 kg (209 lb) Height: 1.626 m (5' 4") Diagnoses as of 12/07/24 1346 Mild asthma with exacerbation, unspecified whether persistent The patient presented with chief complaint of shortness of breath. The differential diagnosis associated with this patient's presentation includes asthma exacerbation, pneumothorax, pneumonia. Our workup consisted of ordering/reviewing: Medications. Patient is in agreement with this plan. Medications ipratropium-albuterol (Duo-Neb) 0.5-2.5 mg/3 mL nebulizer solution 3 mL (has no administration in time range) predniSONE (Deltasone) tablet 50 mg (has no administration in time range) REVAL: Patient presenting to the ED for shortness of breath and cough. Her vitals are reviewed and stable. She is saturating 100% on room air and does not have any increased work of breathing. She is conversational without dyspnea. She has wheezing in all lung dangelo. Suspect likely asthma exacerbation and low concern for pneumothorax or pneumonia given her equal lung sounds. She was treated with a DuoNeb and will be started on a course of steroids. She was given strict return precautions for worsening symptoms. CRITICAL CARE TIME CONSULTS: None PROCEDURES: Unless otherwise noted below, none Procedures Patients symptoms are consistent with sepsis, severe sepsis, or septic shock (If yes use ".sepsiscoremeasure"): FINAL IMPRESSION 1. Mild asthma with exacerbation, unspecified whether persistent DISPOSITION Discharge 12/07/2024 01:32:50 PM PATIENT REFERRED TO: [address] [facility] [id number] DISCHARGE MEDICATIONS: New Prescriptions ALBUTEROL 108 (90 BASE) MCG/ACT INHALER Inhale 2 puffs every 4 hours as needed for wheezing. PREDNISONE (DELTASONE) 50 MG TABLET Take 1 tablet (50 mg) by mouth daily for 5 days. (Comment: Please note this report has been produced using speech recognition software and may contain errors related to that system including errors in grammar, punctuation, and spelling, as well as words and phrases that may be inappropriate. If there are any questions or concerns please feel free to contact the dictating provider for clarification.) Carlos Saunders DO (electronically signed) Emergency Medicine Provider [1] Past Medical History: Diagnosis Date Acute anal fissure Anxiety Asthma (HHS/HCC) Depression Dysmenorrhea Eczema Fatigue Insomnia Otalgia of left ear Palpitations (HHS/HCC) [2] Past Surgical History: Procedure Laterality Date ANKLE SURGERY Right 08/10/2021 Lateral collateral ligament repair SECTION (HISTORICAL) 01/27/2020 SECTION (HISTORICAL) 08/07/2016 CHOLECYSTECTOMY COLONOSCOPY GALLBLADDER SURGERY N/A Oct 2014 Removal MOUTH SURGERY OTHER SURGICAL HISTORY Right Ultra Sound [3] Family History Problem Relation Name Age of Onset Depression Mother Depression Father Cervical cancer Mother's Sister Heart disease Other Heart attack Maternal Grandfather [4] Social History Socioeconomic History Marital status: Tobacco Use Smoking status: Never Smokeless tobacco: Never Vaping Use Vaping status: Never Used Substance and Sexual Activity Alcohol use: No Drug use: No Social Drivers of Health Financial Resource Strain: Low Risk (09/06/2024) Received from [facility] Overall Financial Resource Strain (CARDIA) Difficulty of Paying Living Expenses: Not hard at all Food Insecurity: Food Insecurity Present (09/06/2024) Received from [facility] Hunger Vital Sign Worried About Running Out of Food in the Last Year: Never true Ran Out of Food in the Last Year: Sometimes true Transportation Needs: No Transportation Needs (09/06/2024) Received from [facility] PRAPARE - Transportation Lack of Transportation (Medical): No Lack of Transportation (Non-Medical): No Physical Activity: Inactive (09/06/2024) Received from [facility] Exercise Vital Sign Days of Exercise per Week: 5 days Minutes of Exercise per Session: 0 min Stress: Stress Concern Present (09/06/2024) Received from [facility] [place] [facility] - Occupational Stress Questionnaire Feeling of Stress : To some extent Social Connections: Moderately Integrated (09/06/2024) Received from [facility] Social Connection and Isolation Panel [NHANES] Frequency of Communication with Friends and Family: More than three times a week Frequency of Social Gatherings with Friends and Family: Patient declined Attends Christian Services: More than 4 times per year Active Member of Clubs or Organizations: No Attends Club or Organization Meetings: Never Marital Status: Housing Stability: Unknown (09/06/2024) Received from [facility] Housing Stability Vital Sign Unable to Pay for Housing in the Last Year: No Carlos Saunders DO 12/07/24 1348 [facility] [employer] 12-01-2024 Note HNO ID: [id number] Author: LYSSA MEAD PA-C Service: ? Author Type: Physician Stock Broker Supervisor Type: Progress Notes Filed: 12/01/2024 10:37 Note Text: NEW PATIENT IRENE in Dermatology: Visit date not found Chief Complaint: LESION, SKIN History of Present Ilness: Irvin Kline is a 34 year old female who presents today for a focused skin examination. #1 Location: scalp Duration: years Symptoms: multiple raised areas Current Treatment: none Past Treatment: none Pertinent History: History of skin cancer: No History of atypical nevi: No History of immunosuppression/organ transplant: No , planning , or ? No Pertinent Family medical history: History of melanoma: No History of non melanoma skin cancer: No Past Medical History is reviewed. Medication List is reviewed. ROS: Skin as above. Physical Exam: The patient is a pleasant female in no apparent distress. Alert and oriented x 3. A skin exam performed of the scalp is significant for: Left Frontal Scalp, Right Occipital Scalp (2), Right Parietal Scalp Skin colored smooth, mobile subcutaneous nodule without overlying punctum Assessment and Plan: PILAR CYST (4) Left Frontal Scalp, Right Occipital Scalp (2), Right Parietal Scalp - Observational course. Will monitor at this time. Patient to return sooner if changes or elects removal in the future. Pilar (trichilemmal) cysts are common, benign cysts of hair follicle origin that are most often found on the scalp. They may present as solitary or multiple lesions. Educated and reassured of benign nature. No further intervention necessary at this time unless it becomes bothersome, enlarging, or otherwise changing. Treatment is by surgical excision. Follow up: as needed Intake completed by GALE Shane PA-C [facility] 11-02-2024 Telephone encounter Note Irene 03/09/24 [facility] 11-02-2024 Miscellaneous Notes Irene 03/09/24 documented in this encounter [facility] 10-29-2024 Telephone encounter Note Pended therapy plan. Please sign and then we will reach out to patient to schedule. Pamela Foy LPN Endocrinology [facility] 10-29-2024 Miscellaneous Notes Pended therapy plan. Please sign and then we will reach out to patient to schedule. Pamela Foy LPN [facility] documented in this encounter [facility] 10-29-2024 Instructions Ramirez Pulido MD - 10/29/2024 4:16 PM EDT We discussed your concerns about low blood sugar (hypoglycemia): - You have been experiencing episodes of low blood sugar, including a recent episode where your blood sugar dropped to 41. You also reported symptoms such as shakiness, lightheadedness, and dizziness during these episodes. - You have a history of reactive hypoglycemia, which is typically related to insulin resistance. However, we need to determine if your low blood sugar is due to reactive hypoglycemia or fasting hypoglycemia, as the causes and treatments differ. - Celexa (citalopram), which you are currently taking, may contribute to hypoglycemia. I recommend discussing switching to a different medication with the provider who prescribes it. - You are currently taking Metformin three times daily. Please reduce this to two pills once daily (extended release) with your largest meal. This adjustment may help with your symptoms. We discussed next steps for testing and monitoring: - You will need to complete fasting blood work to evaluate your cortisol, insulin, and other levels. - Fast for 10-12 hours before the test. - Schedule this test for 8:00 AM at any [facility] lab, including the [place] location. - If the fasting blood work does not provide clear answers, we may proceed with a mixed meal test. This test will involve consuming a specific type of food and monitoring your blood sugar and insulin levels over several hours. The scheduling team will contact you to arrange this test. - If the fasting blood work and mixed meal test are inconclusive, a 72-hour fasting test may be considered as a last resort. This test requires hospital admission and takes time to schedule. We discussed how to manage low blood sugar during fasting: - If your blood sugar drops below 70 during the fasting period, confirm the low with a finger stick and treat it immediately. Let us know if this occurs. - If the low blood sugar happens while you are at the lab, inform the staff so they can collect blood work during the episode. We discussed your current medications and devices: - You are on Wegovy (1.7 mg), but you have not started taking this dose yet. You may continue as planned. - You are using a Dexcom continuous glucose monitor. If it alerts you to a low blood sugar, confirm the reading with a finger stick, especially at night, as compression lows can occur. - You are prescribed inhalers (budesonide and Wixela), but you have not been using them regularly. Please use them as prescribed if needed. Please follow these instructions and complete the fasting blood work as soon as possible. If you have any questions or experience worsening symptoms, contact our office. documented in this encounter [facility] 10-29-2024 History of Presen t illness Narrative Images from the original note were not included. [facility] Follow-up visit Irvin Rafy is here for follow-up regarding hypoglycemia: Last seen 06/02/2024 - Dr. Topete Recording using [employer] software for draft documentation of the visit was discussed with the patient/authorized new accounts representative; all questions welcomed and answered. Patient/authorized new accounts representative agreed to proceed HISTORY OF PRESENT ILLNESS: Irvin Kline is a 34 year old female with PMH of asthma, obesity class 3, reactive hypoglycemia, anxiety, depression who presents for hypoglycemia. Irvin reports experiencing recurrent hypoglycemic episodes, with the most recent episode occurring two nights ago when her blood glucose level dropped to 41 mg/dL. She was alerted by her continuous glucose monitor (CGM) and upon waking, felt lightheaded, dizzy, and shaky. She notes that her blood glucose levels have been fluctuating, with some days being stable and others experiencing significant drops. She mentions that her blood glucose levels have been normal today until the time of the visit, when she began feeling shaky again. POC checked here was in the 90s. Irvin recalls a recent episode where she was transported by EMS to [facility] due to hypoglycemia with a blood glucose level in the 60s mg/dL. Despite receiving orange juice, her blood glucose did not initially improve, and she experienced nausea and emesis. After consuming food, her blood glucose level increased to 91 mg/dL, and she was subsequently discharged. She notes that this episode occurred approximately 30-45 minutes after eating. Irvin reports that her hypoglycemic episodes began last year, with a significant episode occurring in March 2023, leading to a 2-3 day hospitalization. During this hospitalization, she was diagnosed with reactive hypoglycemia. She notes that her hypoglycemic episodes often occur after eating, despite following a diet of 5-6 small meals per day. She also experiences hypoglycemia after fasting for 8-10 hours. Her cortisol levels were found to be low likely due to inhaled steroid use but ACTH stim test was normal. Irvin is currently on Wegovy 1.7 mg, which she has not yet started, and metformin extended-release 500 mg, which she takes three times a day with meals. She has been on Celexa for several years for anxiety and depression. She also has prescriptions for budesonide and fluticasone inhalers for asthma, but she reports not using them regularly. She occasionally uses a flavored nicotine vape and denies alcohol use for over a year. She denies use of marijuana or other substances. Irvin has a family history of diabetes on her father's side, with her great-grandmother and grandmother affected. Her mother is pre-diabetic. Review of Systems Constitutional: Positive for fatigue and night sweats. Negative for recent unintentional weight change. HENT: Negative for trouble swallowing, postnasal drip and thyroid pain (lower neck). Eyes: Negative for visual disturbance. Respiratory: Negative for difficulty breathing. Cardiovascular: Negative for chest pain, leg swelling and claudication. Gastrointestinal: Negative for heartburn, nausea, vomiting, abdominal pain, diarrhea and constipation. Genitourinary: Positive for irregular menses. Negative for urgency, frequent urination, slower stream, menstruating and amenorrhea. Musculoskeletal: Positive for myalgias. Negative for muscle weakness and bone pain. Skin: Negative for skin color change. Neurological: Negative for dizziness, headaches and numbness. Endo/Heme/Allergies: Positive for polydipsia and hot flashes. Negative for cold intolerance when others are comfortable, heat intolerance when others are comfortable, flushing and changes in body hair. Answers submitted by the patient for this visit: Endocrine Review of Systems (Submitted on 10/29/2024) Blood Clots?: No Joint pain or stiffness: No PAST HISTORY: PAST MEDICAL HISTORY Diagnosis Date Anemia Asthma (HCC) Depression Generalized anxiety disorder PAST SURGICAL HISTORY Procedure Laterality Date NONE Current Outpatient Medications Medication Sig Dispense Refill semaglutide, weight loss, (WEGOVY) 1.7 mg/0.75 mL pen injector Inject 1.7 mg subcutaneously one time a week. 3 mL 1 montelukast (SINGULAIR) 10 mg tablet Take 1 tablet by mouth once daily. 90 tablet 1 lamoTRIgine (LAMICTAL) 100 mg tablet TAKE 1 TABLET BY MOUTH EVERYDAY AT BEDTIME 90 tablet 0 albuterol HFA (PROVENTIL HFA, VENTOLIN HFA) 90 mcg/actuation inhaler INHALE 2 PUFFS INSTRUCTED EVERY 4 HOURS NEEDED FOR WHEEZING/SHORTNESS OF BREATH. 6.7 each 4 Blood-Glucose Meter,Continuous (DEXCOM G7 HAT CONE INSPECTOR) misc Use as directed to monitor blood glucose 4-6 times per day. Reactive hypoglycemia [E16.1] 1 each 3 Blood-Glucose Sensor (DEXCOM G7 SENSOR) mallika Use as directed to monitor blood glucose 4-6 times per day. Reactive hypoglycemia [E16.1] 3 each 11 busPIRone (BUSPAR) 15 mg tablet Take 15 mg by mouth three times a day. citalopram (CELEXA) 40 mg tablet Take by mouth once daily. budesonide (PULMICORT) 0.5 mg/2 mL nebulizer solution USE 2 ML VIA NEBULIZER EVERY 12 HOURS. INHALE OVER 5-15 MINUTES 360 mL 1 mepolizumab (NUCALA) 100 mg/mL auto-injector INJECT 1 PEN UNDER THE SKIN EVERY 28 DAYS 1 mL 13 fluticasone (FLONASE) 50 mcg/actuation nasal spray Use 1 Calvert in each nostril once daily. 1 Each 0 albuterol (PROVENTIL) 2.5 mg /3 mL (0.083 %) nebulizer solution Use 3 mL via nebulizer every 4 hours as needed for wheezing/shortness of breath. Inhale by nebulizer over 5-15 minutes. 360 mL 3 albuterol HFA (PROAIR HFA) 90 mcg/actuation inhaler Inhale 2 Puffs as instructed every 6 hours as needed for wheezing/shortness of breath. 3 Each 3 mepolizumab (NUCALA) 100 mg injection Inject 100 mg subcutaneously every 4 weeks. 1 Each 12 FEXOFENADINE HCL (LAQUITA ALLERGY ORAL) Take by mouth once daily. metFORMIN ER (GLUCOPHAGE XR) 500 mg 24 hr tablet Take 2 tablets by mouth daily with breakfast. Blood-Glucose Meter 1 each once daily. 1 each 0 blood sugar diagnostic (BLOOD GLUCOSE TEST) test strip Use as instructed to check blood glucose level one time daily 100 each 3 traZODone (DESYREL) 100 mg tablet take 1 tablet 1 time a day (at bedtime) fluticasone-salmeterol (WIXELA INHUB) 250-50 mcg/dose inhaler INHALE 1 PUFF INSTRUCTED TWO TIMES A DAY. 180 Each 1 Lancets lancets Use as instructed 100 Each 0 ergocalciferol 50,000 unit capsule (VITAMIN D2, DRISDOL) Take 1 capsule by mouth one time a week. 12 capsule 3 ferrous sulfate 325 mg (65 mg iron) tablet Take 1 tablet by mouth two times a day. 180 tablet 1 Nebulizer and Compressor For Neb Use as directed 1 Each 0 No current facility-administered medications for this visit. ALLERGIES Allergen Reactions Rocephin [Ceftriaxo* Anaphylaxis per pt mother was 3yo FAMILY HISTORY Problem Relation Age of Onset other (prediabetes) Mother Heart Attack Maternal Grandfather Diabetes Paternal Grandmother Esophageal Cancer Paternal Grandfather Cervical Cancer Paternal Aunt Diabetes Paternal great-grandmother SOCIAL HISTORY[1] PHYSICAL EXAM: BP 107/72 (BP Site: Left Arm, BP Position: Sitting, BP Cuff Size: Large Adult) Pulse 83 Temp 36.6 C (97.9 F) (Oral) Resp 16 Wt 100.4 kg (221 lb 3.7 oz) LMP 08/29/2024 (Approximate) SpO2 100% BMI 37.97 kg/m APPEARANCE: Well appearing, alert, in no acute distress, well-hydrated, well nourished. NECK: negative THYROID SIZE: slightly enlarged HEART: RRR LUNGS: clear to auscultation EXTREMITIES: Normal and No deformities PREVIOUS LAB RESULTS: Latest Ref Rng 04/10/2023 04/11/2023 04/12/2023 05/26/2024 Protein, Total 6.3 - 8.0 g/dL 6.9 Albumin 3.9 - 4.9 g/dL 3.8 (L) Calcium 8.5 - 10.2 mg/dL 9.6 Bilirubin, Total 0.2 - 1.3 mg/dL 0.3 Alkaline Phosphatase 34 - 123 U/L 109 AST 13 - 35 U/L 13 ALT 7 - 38 U/L 19 Glucose 74 - 99 mg/dL 87 BUN 7 - 21 mg/dL 10 Creatinine 0.58 - 0.96 mg/dL 0.67 Sodium 136 - 144 mmol/L 137 Potassium 3.7 - 5.1 mmol/L 4.0 Chloride 98 - 107 mmol/L 105 CO2 22 - 30 mmol/L 24 Anion Gap 8 - 15 mmol/L 8 eGFR >=60 mL/min/1.73m 118 Rosiglitazone ng/mL None Det Chlorpropamide mcg/mL None Det Glimepiride ng/mL None Det Glipizide ng/mL None Det PIOGLITAZONE ng/mL None Det Glyburide, Serum ng/mL None Det Nateglinide mcg/mL None Det Tolazamide mcg/mL None Det Tolbutamide mcg/mL None Det Repaglinide ng/mL None Det Phencyclidine, Urine Negative Negative Benzodiazepines, Urine Negative Negative Cocaine, Urine Negative Negative Amphetamines, Urine Negative Negative Cannabinoids, Urine Negative Negative Opiates, Urine Negative Negative Barbiturates, Urine Negative Negative Ethanol, Urine <11 mg/dL <11 Oxycodone, Urine Negative Negative Hemoglobin A1C 4.3 - 5.6 % 5.1 5.1 Estimated Average Glucose mg/dL 100 100 Insulin Antibody, Qual Negative Negative Insulin Antibody <0.4 U/mL <0.4 Cortisol 60 min ug/dL 20.6 B-Hydroxybutyrate <0.28 mmol/L 0.18 Glucose, Point of Care 74 - 99 mg/dL 93 Glucose, Point of Care 103 ! Ethanol <11 mg/dL 12 (H) C-Peptide 0.81 - 3.85 ng/mL 2.90 Insulin 3.0 - 25.0 mU/L 21.0 Cortisol 4.8 - 19.5 ug/dL 1.3 (L) 17.8 TSH 0.270 - 4.200 mIU/L 2.250 TSH 0.270 - 4.200 mIU/L 2.220 Free T4 0.9 - 1.7 ng/dL 0.9 Cortisol Basal 4.8 - 19.5 ug/dL 4.6 (L) ACTH 7.2 - 63.3 pg/mL 10.8 Legend: ! Abnormal (H) High (L) Low IMPRESSION AND RECOMMENDATIONS: 1. Reactive hypoglycemia (E16.1) Patient with a history of reactive hypoglycemia presents with recurrent hypoglycemic episodes, including both postprandial and fasting events, despite adherence to dietary recommendations and current use of metformin and Wegovy. Most episodes appear to be post-prandial. Most recent episode occurred around 2-3 AM when pt had eaten right before going to bed. She did feel lightheaded and dizzy then. Prior workup included low baseline cortisol with normal response to stimulation and unremarkable insulin testing. Differential includes reactive versus fasting hypoglycemia; Celexa may be contributing to hypoglycemia. - Order morning fasting labs (cortisol, insulin, and related studies) after a 12 hour fast. - Advised patient to treat hypoglycemia if fingerstick glucose is <70 mg/dL during fasting, and to report any such episodes. - Order mixed meal test to further evaluate for reactive hypoglycemia. - Advised patient to confirm low Dexcom readings with fingerstick glucose, especially at night, to rule out compression artifacts. - Advised patient to discuss switching from Celexa to an alternative medication with her prescribing provider. - Reduced metformin ER from TID with meals to 2 tablets once daily with largest meal. - Discussed that GLP-1 therapy (Wegovy) should help with insulin resistance; other medications (e.g., acarbose) are available but less effective. - Discussed that Eversense CGM is not approved for hypoglycemia and is unlikely to be covered by insurance. - Follow-up with Dr. Topete in May; encouraged patient to seek an earlier appointment if possible. Encounter Diagnosis ICD-10-CM 1. Reactive hypoglycemia E16.1 GLUCOSE, BLOOD (POC) metFORMIN ER (GLUCOPHAGE XR) 500 mg 24 hr tablet ACTH BLD CORTISOL, SERUM INSULIN, TOTAL, SERUM B-HYDROXYBUTYRATE INSULIN ANTIBODY BLD PROINSULIN INTACT BLOOD C-PEPTIDE BLD GLUCOSE RANDOM BLOOD Ramirez Pulido MD Associate Staff Department of Endocrinology, Diabetes and Metabolism [facility] [place] [1] Social History Tobacco Use Smoking status: Never Smokeless tobacco: Never Vaping Use Vaping status: current everyday user Substance Use Topics Alcohol use: Yes Comment: social Drug use: No Images from the original note were not included. documented in this encounter [facility] 10-29-2024 Note HNO ID: [id number] Author: RAMIREZ PULIDO MD Service: ? Author Type: Physician Type: Progress Notes Filed: 10/29/2024 16:33 Note Text: [facility] Follow-up visit Irvin Kline is here for follow-up regarding hypoglycemia: Last seen 06/02/2024 - Dr. Topete Recording using [employer] software for draft documentation of the visit was discussed with the patient/authorized new accounts representative; all questions welcomed and answered. Patient/authorized new accounts representative agreed to proceed HISTORY OF PRESENT ILLNESS: Irvin Kline is a 34 year old female with PMH of asthma, obesity class 3, reactive hypoglycemia, anxiety, depression who presents for hypoglycemia. Irvin reports experiencing recurrent hypoglycemic episodes, with the most recent episode occurring two nights ago when her blood glucose level dropped to 41 mg/dL. She was alerted by her continuous glucose monitor (CGM) and upon waking, felt lightheaded, dizzy, and shaky. She notes that her blood glucose levels have been fluctuating, with some days being stable and others experiencing significant drops. She mentions that her blood glucose levels have been normal today until the time of the visit, when she began feeling shaky again. POC checked here was in the 90s. Irvin recalls a recent episode where she was transported by EMS to [facility] due to hypoglycemia with a blood glucose level in the 60s mg/dL. Despite receiving orange juice, her blood glucose did not initially improve, and she experienced nausea and emesis. After consuming food, her blood glucose level increased to 91 mg/dL, and she was subsequently discharged. She notes that this episode occurred approximately 30-45 minutes after eating. Irvin reports that her hypoglycemic episodes began last year, with a significant episode occurring in March 2023, leading to a 2-3 day hospitalization. During this hospitalization, she was diagnosed with reactive hypoglycemia. She notes that her hypoglycemic episodes often occur after eating, despite following a diet of 5-6 small meals per day. She also experiences hypoglycemia after fasting for 8-10 hours. Her cortisol levels were found to be low likely due to inhaled steroid use but ACTH stim test was normal. Irvin is currently on Wegovy 1.7 mg, which she has not yet started, and metformin extended-release 500 mg, which she takes three times a day with meals. She has been on Celexa for several years for anxiety and depression. She also has prescriptions for budesonide and fluticasone inhalers for asthma, but she reports not using them regularly. She occasionally uses a flavored nicotine vape and denies alcohol use for over a year. She denies use of marijuana or other substances. Irvin has a family history of diabetes on her father's side, with her great-grandmother and grandmother affected. Her mother is pre-diabetic. Review of Systems Constitutional: Positive for fatigue and night sweats. Negative for recent unintentional weight change. HENT: Negative for trouble swallowing, postnasal drip and thyroid pain (lower neck). Eyes: Negative for visual disturbance. Respiratory: Negative for difficulty breathing. Cardiovascular: Negative for chest pain, leg swelling and claudication. Gastrointestinal: Negative for heartburn, nausea, vomiting, abdominal pain, diarrhea and constipation. Genitourinary: Positive for irregular menses. Negative for urgency, frequent urination, slower stream, menstruating and amenorrhea. Musculoskeletal: Positive for myalgias. Negative for muscle weakness and bone pain. Skin: Negative for skin color change. Neurological: Negative for dizziness, headaches and numbness. Endo/Heme/Allergies: Positive for polydipsia and hot flashes. Negative for cold intolerance when others are comfortable, heat intolerance when others are comfortable, flushing and changes in body hair. Answers submitted by the patient for this visit: Endocrine Review of Systems (Submitted on 10/29/2024) Blood Clots?: No Joint pain or stiffness: No PAST HISTORY: PAST MEDICAL HISTORY Diagnosis Date Anemia Asthma (HCC) Depression Generalized anxiety disorder PAST SURGICAL HISTORY Procedure Laterality Date NONE Current Outpatient Medications Medication Sig Dispense Refill semaglutide, weight loss, (WEGOVY) 1.7 mg/0.75 mL pen injector Inject 1.7 mg subcutaneously one time a week. 3 mL 1 montelukast (SINGULAIR) 10 mg tablet Take 1 tablet by mouth once daily. 90 tablet 1 lamoTRIgine (LAMICTAL) 100 mg tablet TAKE 1 TABLET BY MOUTH EVERYDAY AT BEDTIME 90 tablet 0 albuterol HFA (PROVENTIL HFA, VENTOLIN HFA) 90 mcg/actuation inhaler INHALE 2 PUFFS INSTRUCTED EVERY 4 HOURS NEEDED FOR WHEEZING/SHORTNESS OF BREATH. 6.7 each 4 Blood-Glucose Meter,Continuous (DEXCOM G7 HAT CONE INSPECTOR) misc Use as directed to monitor blood glucose 4-6 times per day. Reactive hypoglycemia (more content not included)... [facility] 10-29-2024 Note HNO ID: [id number] Author: MELANIE LAGOS RN Service: ? Author Type: Registered Nurse Type: Progress Notes Filed: 10/29/2024 15:48 Note Text: [facility] 10-28-2024 Telephone encounter Note Sent via refill portal Kimberly Nixon MA [facility] 10-28-2024 Miscellaneous Notes Sent via refill portal Kimberly Nixon MA documented in this encounter [facility] 10-28-2024 Telephone encounter Note IRENE: 06/02/2024 Patient sent message her meter stopped working and needs a new one Requested Prescriptions Pending Prescriptions Disp Refills Blood-Glucose Meter 1 each 0 Si each once daily. Kimberly Nixon MA [facility] 10-28-2024 Miscellaneous Notes IRENE: 06/02/2024 Patient sent message her meter stopped working and needs a new one Requested Prescriptions Pending Prescriptions Disp Refills Blood-Glucose Meter 1 each 0 Si each once daily. Kimberly Nixon MA documented in this encounter [facility] 10-27-2024 Telephone encounter Note Patient called and scheduled. Keyona Ruiz RN [facility] 10-27-2024 Miscellaneous Notes Patient called and scheduled. Keyona Ruiz RN ----- Message from Suzette Morales PA-C sent at 10/13/2024 10:30 AM EDT ----- Regarding: FW: follow up new pt for you Please help arrange as new patient in 3-4 months for new patient, back pain family history of scleroderma. Plan is to follow up of skin biopsy of scalp lesions after she sees derm and consider MRI SI joints if the back pain worsens. Sorry I already forgot the name of your scheduling pool. ----- Message ----- From: Silke Corea MD Sent: 10/13/2024 10:26 AM EDT To: Suzette Morales PA-C Subject: follow up new pt for you Hi there! Please get her on your schedule in 3-4 months, new patient, back pain family history of scleroderma. Plan is to follow up of skin biopsy of scalp lesions after she sees derm and consider MRI SI joints if the back pain worsens. Sorry I already forgot the name of your scheduling pool. documented in this encounter [facility] 10-27-2024 Telephone encounter Note ----- Message from Suzette Morales PA-C sent at 10/13/2024 10:30 AM EDT ----- Regarding: FW: follow up new pt for you Please help arrange as new patient in 3-4 months for new patient, back pain family history of scleroderma. Plan is to follow up of skin biopsy of scalp lesions after she sees derm and consider MRI SI joints if the back pain worsens. Sorry I already forgot the name of your scheduling pool. ----- Message ----- From: Silke Corea MD Sent: 10/13/2024 10:26 AM EDT To: Suzette Morales PA-C Subject: follow up new pt for you Hi there! Please get her on your schedule in 3-4 months, new patient, back pain family history of scleroderma. Plan is to follow up of skin biopsy of scalp lesions after she sees derm and consider MRI SI joints if the back pain worsens. Sorry I already forgot the name of your scheduling pool. [facility] 10-13-2024 Instructions Silke Corea MD - 10/13/2024 10:21 AM EDT Labs anytime, 1st floor today, ASK THEM ABOUT THE HLAB27 SOMETIMES NEEDS PRIOR AUTH X rays anytime, today on 2nd floor Dermatology consult for the skin nodules Physical therapy for trochanteric bursitis IF you get pain in the butt/SI joints, worse in morning, better with use, let me know and we can get the MRI of the SI joints Follow up after dermatology with TYRESE Morales in 3-4 months documented in this encounter [facility] 10-13-2024 Note HNO ID: [id number] Author: SILKE COREA MD Service: ? Author Type: Physician Type: Progress Notes Filed: 10/13/2024 10:37 Note Text: Rheumatology CONSULTATION Date of Service: 10/13/2024 Patient: Irvin Kline Medical Record: [id number] Primary Care Physician: Donald Snowden DO Last Rheumatology visit: None at [facility] Referring Provider: Krystle Kent [address] [place] [address] Chief Complaint: No chief complaint on file. Irvin Kline is here today at request of JANAY Kent specifically for consultation of my opinion in regards to the chief complaint listed above. Correspondence will be shared today via the [employer] electronic health record or through regular mail, where applicable. HISTORY OF PRESENT ILLNESS Irvin Kline is a 34-year-old female with a history of asthma, anxiety, depression, and reactive hypoglycemia, presenting for evaluation of multiple symptoms, including scalp nodules and back pain. Irvin reports multiple scalp nodules, initially noticed several years ago, with more recent nodules prompting an ED visit. A CT scan on 09/04/2024 revealed nodules containing calcification throughout the scalp, measuring up to 1 cm, most notably in the right occipital region. The nodules are non-tender unless bumped and have not been picked or drained. She expresses concern about a family history of scleroderma in her grandmother and requests testing. 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 The pain lasts until she lies down at night and is not associated with morning stiffness. Muscle relaxers provided temporary relief, but Tylenol and ibuprofen were ineffective. She denies other joint pain but notes hip pain when lying on her side at night. ROS: She experiences occasional headaches and denies pain in her hands, wrists, elbows, shoulders, knees, ankles, and feet. She reports drenching night sweats and difficulty initiating swallowing at times. She denies fevers, rashes, or photosensitivity. She reports her fingers and toes are always cold but denies color changes, sores, or a history of blood clots. She has a history of a right ankle fracture with subsequent surgery, resulting in weakness. She has a history of reactive hypoglycemia, managed with metformin and Wegovy, and uses a continuous glucose monitor. She denies a current diagnosis of adrenal insufficiency, stating her internet marketing assistant attributes her symptoms to reactive hypoglycemia. She has a family history of scleroderma and dry eyes in her grandmother, rheumatoid arthritis and fibromyalgia in her mother, and a myocardial infarction in her grandfather. Cancer and diabetes also run in her family. She vapes daily, denies cigarette use, and abstains from alcohol. She takes Laquita and denies other supplements or illicit drug use. She works at [employer] and has two children, ages 8 and 4. FMHx - Scleroderma (grandmother) - Rheumatoid arthritis (mother) - Fibromyalgia (mother) - Heart attack (grandfather) PMHx - Asthma - Anxiety - Depression - Reactive hypoglycemia PSHx - Two C-sections - Cholecystectomy - Oral surgery for impacted tooth - Right ankle surgery - Bilateral salpingectomy Social Hx - Tobacco use: Vapes daily - Alcohol use: Denies alcohol use - Number of children: 2 - Occupation: Works at [employer] Pain Evaluation 04/22/2023 05/08/2023 05/17/2023 08/07/2023 06/03/2024 Pain Evaluation Pain Score 5 0 2 0 5 Location Abdomen Ankle-Right Ankle-Right Description Sharp Sore;Stiffness Shooting Duration (Timeframe) Months Frequency Continuous Intermittent Intermittent Intervention Medication;Cold Relaxation;Reposition Data saved with a previous flowsheet row definition PATIENT-ENTERED DATA PROMIS Assessments 05/26/2024 09/06/2024 10/12/2024 PROMIS Assessments Physical Health Percentile 41 53 66 Mental Health Percentile 26 34 82 Pain Score 5 5 5 Pain Interference Percentile 42 Fatigue Percentile 42 Physical Function Percentile 69 RAPID 3 Isaac Activities of Daily Living 10/12/2024 11:52 AM Dress self? Without ANY difficulty Get in and out of bed? Without ANY difficulty Walk outdoors? Without ANY difficulty Wash and dry body? Without ANY difficulty Get in and out of car? Without ANY difficulty RAPID 3 Disease Activity Weighed Score Levels: 0 - 1: Near Remission 1.3 - 2.0: Low Severity 2.3 - 4.0: Moderate Severity 4.3 - 10.0: High Severity 10/12/2024 RAPID-3 Weighed Score RAPID 3 Weighed Score 0 (Minimal to no symptoms) Review of Systems CONSTITUTION: Negative for: Fever and Recent weight change HEENT: Positive for: Trouble swallowing and Dry mouth Negative for: Nosebleeds and Mouth sores RESPIRATORY: Negative for: Cough, Shortness of breath and Pain with breathing GASTROINTESTINAL: Negative for: Melena, Diarrhea, Heartburn and Abd (more content not included)... [facility] 10-13-2024 History of Presen t illness Narrative Images from the original note were not included. Rheumatology CONSULTATION Date of Service: 10/13/2024 Patient: Irvin Kline Medical Record: [id number] Primary Care Physician: Donald Snowden DO Last Rheumatology visit: None at [facility] Referring Provider: Krystle Kent [address] [place] [address] Chief Complaint: No chief complaint on file. Irvin Kline is here today at request of JANAY Kent specifically for consultation of my opinion in regards to the chief complaint listed above. Correspondence will be shared today via the [facility] electronic health record or through regular mail, where applicable. HISTORY OF PRESENT ILLNESS Irvin Kline is a 34-year-old female with a history of asthma, anxiety, depression, and reactive hypoglycemia, presenting for evaluation of multiple symptoms, including scalp nodules and back pain. Irvin reports multiple scalp nodules, initially noticed several years ago, with more recent nodules prompting an ED visit. A CT scan on 09/04/2024 revealed nodules containing calcification throughout the scalp, measuring up to 1 cm, most notably in the right occipital region. The nodules are non-tender unless bumped and have not been picked or drained. She expresses concern about a family history of scleroderma in her grandmother and requests testing. 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 The pain lasts until she lies down at night and is not associated with morning stiffness. Muscle relaxers provided temporary relief, but Tylenol and ibuprofen were ineffective. She denies other joint pain but notes hip pain when lying on her side at night. ROS: She experiences occasional headaches and denies pain in her hands, wrists, elbows, shoulders, knees, ankles, and feet. She reports drenching night sweats and difficulty initiating swallowing at times. She denies fevers, rashes, or photosensitivity. She reports her fingers and toes are always cold but denies color changes, sores, or a history of blood clots. She has a history of a right ankle fracture with subsequent surgery, resulting in weakness. She has a history of reactive hypoglycemia, managed with metformin and Wegovy, and uses a continuous glucose monitor. She denies a current diagnosis of adrenal insufficiency, stating her internet marketing assistant attributes her symptoms to reactive hypoglycemia. She has a family history of scleroderma and dry eyes in her grandmother, rheumatoid arthritis and fibromyalgia in her mother, and a myocardial infarction in her grandfather. Cancer and diabetes also run in her family. She vapes daily, denies cigarette use, and abstains from alcohol. She takes Laquita and denies other supplements or illicit drug use. She works at a [employer] and has two children, ages 8 and 4. FMHx - Scleroderma (grandmother) - Rheumatoid arthritis (mother) - Fibromyalgia (mother) - Heart attack (grandfather) PMHx - Asthma - Anxiety - Depression - Reactive hypoglycemia PSHx - Two C-sections - Cholecystectomy - Oral surgery for impacted tooth - Right ankle surgery - Bilateral salpingectomy Social Hx - Tobacco use: Vapes daily - Alcohol use: Denies alcohol use - Number of children: 2 - Occupation: Works at [employer] Pain Evaluation 04/22/2023 05/08/2023 05/17/2023 08/07/2023 06/03/2024 Pain Evaluation Pain Score 5 0 2 0 5 Location Abdomen Ankle-Right Ankle-Right Description Sharp Sore;Stiffness Shooting Duration (Timeframe) Months Frequency Continuous Intermittent Intermittent Intervention Medication;Cold Relaxation;Reposition Data saved with a previous flowsheet row definition PATIENT-ENTERED DATA PROMIS Assessments 05/26/2024 09/06/2024 10/12/2024 PROMIS Assessments Physical Health Percentile 41 53 66 Mental Health Percentile 26 34 82 Pain Score 5 5 5 Pain Interference Percentile 42 Fatigue Percentile 42 Physical Function Percentile 69 RAPID 3 Isaac Activities of Daily Living 10/12/2024 11:52 AM Dress self? Without ANY difficulty Get in and out of bed? Without ANY difficulty Walk outdoors? Without ANY difficulty Wash and dry body? Without ANY difficulty Get in and out of car? Without ANY difficulty RAPID 3 Disease Activity Weighed Score Levels: 0 - 1: Near Remission 1.3 - 2.0: Low Severity 2.3 - 4.0: Moderate Severity 4.3 - 10.0: High Severity 10/12/2024 RAPID-3 Weighed Score RAPID 3 Weighed Score 0 (Minimal to no symptoms) Review of Systems CONSTITUTION: Negative for: Fever and Recent weight change HEENT: Positive for: Trouble swallowing and Dry mouth Negative for: Nosebleeds and Mouth sores RESPIRATORY: Negative for: Cough, Shortness of breath and Pain with breathing GASTROINTESTINAL: Negative for: Melena, Diarrhea, Heartburn and Abdominal pain MUSCULOSKELETAL: Positive for: Arthralgias and Myalgias Negative for: Muscle weakness, Joint swelling and Morning Joint Stiffness NEUROLOGICAL: Positive for: Headaches Negative for: Numbness and Memory loss SKIN: Negative for: Rash, Skin changes, Hair loss and Nail changes EYES: Negative for: Eye pain, Eye redness, Eye dryness and visual disturbance CARDIOVASCULAR: Negative for: Chest pain and Leg swelling GENITOURINARY: Negative for: Dysuria and Hematuria HEMATOLOGIC/LYMPHATIC: Negative for: Swollen glands REVIEW OF SYSTEMS Complete ROS (HEENT, respiratory, cardiology, GI, , skin, psych, hematology, endocrine, neuro, musculoskeletal) negative except as noted in HPI. PAST MEDICAL HISTORY PAST MEDICAL HISTORY Diagnosis Date Anemia Asthma (HCC) PAST SURGICAL HISTORY PAST SURGICAL HISTORY Procedure Laterality Date NONE FAMILY HISTORY: FAMILY HISTORY Problem Relation Age of Onset Heart Attack Maternal Grandfather SOCIAL HISTORY: SOCIAL HISTORY[1] MEDICATIONS Current Outpatient Medications Medication Sig semaglutide, weight loss, (WEGOVY) 1.7 mg/0.75 mL pen injector Inject 1.7 mg subcutaneously one time a week. montelukast (SINGULAIR) 10 mg tablet Take 1 tablet by mouth once daily. semaglutide, weight loss, (WEGOVY) 1 mg/0.5 mL pen injector Inject 1 mg subcutaneously one time a week. lamoTRIgine (LAMICTAL) 100 mg tablet TAKE 1 TABLET BY MOUTH EVERYDAY AT BEDTIME albuterol HFA (PROVENTIL HFA, VENTOLIN HFA) 90 mcg/actuation inhaler INHALE 2 PUFFS INSTRUCTED EVERY 4 HOURS NEEDED FOR WHEEZING/SHORTNESS OF BREATH. blood sugar diagnostic (BLOOD GLUCOSE TEST) test strip Use as instructed to check blood glucose level one time daily Blood-Glucose Meter,Continuous (DEXCOM G7 HAT CONE INSPECTOR) misc Use as directed to monitor blood glucose 4-6 times per day. Reactive hypoglycemia [E16.1] Blood-Glucose Sensor (DEXCOM G7 SENSOR) mallika Use as directed to monitor blood glucose 4-6 times per day. Reactive hypoglycemia [E16.1] metFORMIN ER (GLUCOPHAGE XR) 500 mg 24 hr tablet Take 1 tablet by mouth three times a day with meals. tirzepatide, weight loss (ZEPBOUND) 2.5 mg/0.5 mL pen injector Inject 2.5 mg subcutaneously one time a week. traZODone (DESYREL) 100 mg tablet take 1 tablet 1 time a day (at bedtime) busPIRone (BUSPAR) 15 mg tablet Take 15 mg by mouth three times a day. citalopram (CELEXA) 40 mg tablet Take by mouth once daily. budesonide (PULMICORT) 0.5 mg/2 mL nebulizer solution USE 2 ML VIA NEBULIZER EVERY 12 HOURS. INHALE OVER 5-15 MINUTES mepolizumab (NUCALA) 100 mg/mL auto-injector INJECT 1 PEN UNDER THE SKIN EVERY 28 DAYS fluticasone-salmeterol (WIXELA INHUB) 250-50 mcg/dose inhaler INHALE 1 PUFF INSTRUCTED TWO TIMES A DAY. fluticasone (FLONASE) 50 mcg/actuation nasal spray Use 1 Calvert in each nostril once daily. Lancets lancets [...] ALLERGY ORAL) Take by mouth once daily. tirzepatide, weight loss (ZEPBOUND) 5 mg/0.5 mL pen injector Inject 5 mg subcutaneously one time a week. ALLERGIES ALLERGIES Allergen Reactions Rocephin [Ceftriaxo* Anaphylaxis per pt mother was 3yo PHYSICAL EXAM VITAL SIGNS: BP 125/56 Pulse 63 Temp (Src) 97.9 (Temporal) Ht 5' 4" (1.63m) Wt 222 lb 0.1 oz (100.7kg) LMP 08/29/2024 BMI 38.09 kg/(m^2). GENERAL: Alert and oriented, appears stated age. In no acute distress. EYES: EOMI, anicteric sclerae, no conjunctival injection. Left pupil greater than right pupil by 1 mm, both equal and reactive bilaterally HENT: Normal external examination of the ears and nose, lips, oropharynx and tongue. No oropharyngeal lesions or exudate. No oral or nasal sores. NECK: No mass or asymmetry. No lymphadenopathy RESPIRATORY: Normal respiratory effort. Clear to auscultation CARDIOVASCULAR: Regular in rate and rhythm without murmurs, rubs, or gallops ABDOMEN: Soft, nontender, nondistended NEUROLOGIC: No gross focal neurologic deficits. Cranial nerves II-XII grossly intact. SKIN: No rash, thickening. Normal nails. No periungual erythema. Fingers and toes cool to touch, slightly dusky discoloration on toes. Multiple subcutaneous nodules on scalp largest about 1 cm right occipital area smallest 3 mm scattered throughout. No obvious change to the overlying epidermis. They are mobile rubbery more consistent with nodule/cystic than actual calcinosis. No distal calcinosis or telangiectasias. MSK: Normal range of motion, no deformities, no swelling, and no tenderness in the hands, wrists, elbows, shoulders, spine, hips, knees, ankles, feet except as noted below: Tender over bilateral trochanteric bursa and trapezius muscles Tender over thoracic spine, lumbar spine, right greater than left SI joints No synovitis No deformity suggestive of erosive disease LABS AND IMAGING Reviewed in [facility], notable for: Labs: (09/07/2024) - ESR: negative - KALI: negative - RF: negative - CBC with differential: normal Imaging: (09/04/2024) Brain CT: - Nodules containing calcification throughout the scalp measuring up to 1 cm, most notably on the right occipital region - Differential includes pilar cysts, epidermal occlusion, cysts, or other neoplasm - Recommend clinical follow-up Latest Ref Rng & Units 04/02/2022 06/16/2022 04/11/2023 09/07/2024 CBC WBC 3.70 - 11.00 k/uL 10.16 10.10 9.41 8.54 Hemoglobin 11.5 - 15.5 g/dL 12.1 11.9 13.2 12.8 Hemoglobin Total, Whole Blood 11.5 - 15.5 g/dL 11.9 13.2 Hematocrit 36.0 - 46.0 % 39.4 38.8 42.9 40.7 Platelet Count 150 - 400 k/uL 321 271 323 265 Abs Neut (ANC) 1.45 - 7.50 k/uL 6.55 5.61 5.76 5.68 Abs Lymph 1.00 - 4.00 k/uL 2.44 2.48 2.84 2.26 Latest Ref Rng & Units 04/11/2023 04/11/2023 04/12/2023 05/26/2024 CMP Sodium 136 - 144 mmol/L 139 142 137 Potassium 3.7 - 5.1 mmol/L 4.3 4.0 Chloride 98 - 107 mmol/L 103 106 105 CO2 22 - 30 mmol/L 26 22 24 Glucose 74 - 99 mg/dL 64 95 74 87 BUN 7 - 21 mg/dL 11 8 10 Creatinine 0.58 - 0.96 mg/dL 0.64 0.57 0.67 Calcium 8.5 - 10.2 mg/dL 9.8 9.7 9.6 AST 13 - 35 U/L 17 13 ALT 7 - 38 U/L 16 19 Alkaline Phosphatase 34 - 123 U/L 136 120 109 Latest Ref Rng & Units 09/07/2024 ESR, WSR WSR 0 - 20 mm/hr 10 Latest Ref Rng & Units 09/07/2024 RF and CCP Rheumatoid Factor <16 IU/mL 11 Latest Ref Rng & Units 09/07/2024 Antibodies KALI Negative Negative IMPRESSIONS Diagnoses: (M54.9) Mechanical back pain (primary encounter diagnosis) (Z82.69) Family history of scleroderma (R22.9) Mass of skin (M70.61, M70.62) Trochanteric bursitis of both hips (M53.3) Tenderness of sacroiliac joint (R20.9) Cold extremities ASSESSMENT AND PLAN Irvin Kline is a 34-year-old female with a history of asthma, anxiety, depression, and reactive hypoglycemia, presenting for evaluation of multiple symptoms, including scalp nodules and back pain. # Family history of scleroderma (Z82.69) # Cold extremities (R20.9) Family history of scleroderma in maternal grandmother; patient reports chronic coldness in fingers and toes without classic Raynaud's color changes. - Order scleroderma antibody panel. - Discussed typical presentation of scleroderma and Raynaud's phenomenon, including color changes in response to cold; patient educated on the low likelihood of scleroderma given current findings. - If scleroderma antibodies are positive, will order PVRs to further evaluate for Raynaud's. # Mass of skin (R22.9) Multiple scalp nodules with calcification on CT; differential includes pilar cysts, epidermal inclusion cysts, or other benign neoplasms; scleroderma-related calcinosis less likely. - Refer to dermatology for evaluation and removal/biopsy of scalp nodules. - Educated patient on benign nature of most scalp nodules and low likelihood of scleroderma-related calcinosis. # Mechanical back pain (M54.9) # Tenderness of sacroiliac joint (M53.3) Chronic thoracic and lower back pain with tenderness over thoracic spine and SI joints; pain is worse with prolonged standing and improves with rest; no morning stiffness or improvement with activity. - Order X-rays of thoracic spine, lumbar spine, and SI joints. - Order HLA-B27 lab. - Advised patient to monitor for new or worsening morning stiffness or pain that improves with activity; if present, will consider MRI of SI joints. # Trochanteric bursitis of both hips (M70.61) Bilateral lateral hip pain consistent with trochanteric bursitis, likely exacerbated by side sleeping. - Refer to physical therapy for management of trochanteric bursitis. - Follow-up with TYRESE Morales in 3-4 months after dermatology Current Immunizations Reviewed on 10/13/2024 Name Date COVID-19 vaccine, monovalent (MODERNA) 07/12/2020, 06/12/2020 Haemophilus influenzae b (Hib PRP-T) vaccine 07/13/1991, 1990, 1990, 1990 Haemophilus influenzae b (Hib) vaccine 07/13/1991, 1990, 1990, 1990 diphtheria tetanus pertussis (DTaP) vaccine 07/16/2002, 10/23/1995, 10/12/1991, 1990, 1990, 1990 human papillomavirus (HPV4) vaccine 05/20/2007 influenza (IIV3) vaccine 12/07/2014, 12/16/2013 influenza (IIV4) vaccine 11/30/2020, 11/25/2019, 11/25/2019, 01/11/2019, 11/17/2017, 11/18/2016, 12/19/2015, 12/19/2015 influenza (LAIV) vaccine 12/07/2014 influenza vaccine 01/03/2007, 12/14/2005 measles mumps rubella (MMR) vaccine 10/10/1998, 07/13/1991 pneumococcal (PPV23) vaccine 01/17/2000 poliovirus (IPV) vaccine 10/23/1995, 10/12/1991, 1990, 1990 poliovirus vaccine 10/23/1995, 10/12/1991, 1990, 1990 tetanus diphtheria pertussis (Tdap) vaccine 11/10/2019, 05/20/2007 varicella (MACKENZIE) vaccine 11/29/1994 Orders this visit: Office Visit on 10/13/24 XR LUMBAR LIMITED 2V AP/LAT XR SACROILIAC JOINTS 2V AP PELVIS/FERGUESON XR THORACIC LIMITED 2V AP/LAT ANTI-CENTROMERE AB PM-SCL ANTIBODY SCLERODERMA IGG AB RNA POLYMERASE III AB TH/TO ANTIBODY U3RNP FIBRILLARIN AB KALI BY IFA SCREEN HLA-B27 PCR THYROID STIMULATING HORMONE CONSULT TO RHEUM/IMMUN DISEASE CONSULT TO DERMATOLOGY CONSULT TO PHYSICAL THERAPY No follow-ups on file. I spent a total of 55 minutes on the date of the service which included preparing to see the patient, [id number] patient care, completing clinical documentation, obtaining and/or reviewing separately obtained history, performing a medically appropriate examination, counseling and educating the patient/family/caregiver, ordering medications, tests, or procedures, and communicating results to the patient/family/caregiver. Recording using ambient AI software for draft documentation of the visit was discussed with the patient/authorized new accounts representative; all questions welcomed and answered. Patient/authorized new accounts representative agreed to proceed This note was partially generated with the assistance of [employer] voice recognition software and [employer] AI technology. An attempt was made to correct any dictation errors however there may be some incorrect words, spellings, and punctuation. Silke Corea MD Rheumatology Date: October 13, 2024 Time: 9:54 AM [1] Social History Tobacco Use Smoking status: Never Smokeless tobacco: Never Vaping Use Vaping status: Never Used Substance Use Topics Alcohol use: Yes Comment: social Drug use: No documented in this encounter [facility] 10-06-2024 Telephone encounter Note Refill increase has been sent via the refill portal Kimberly Nixon MA [facility] 10-06-2024 Miscellaneous Notes Refill increase has been sent via the refill portal Kimberly Nixon MA documented in this encounter [facility] 10-06-2024 Telephone encounter Note IRENE: 06/02/2024 Patient is taking wegovy 1 mg and asking toif she can increase dose due to no weight loss 1.7 mg has been pended if agreeable Kimberly Nixon MA [facility] 10-06-2024 Miscellaneous Notes IRENE: 06/02/2024 Patient is taking wegovy 1 mg and asking toif she can increase dose due to no weight loss 1.7 mg has been pended if agreeable Kimberly Nixon MA documented in this encounter [facility] 09-14-2024 Telephone encounter Note Prescription Refill Information The patient has been identified by name and date of : Yes Caregiver verified no other encounters exist for this prescription request: Yes Caregiver confirmed with patient/requestor that no other refills are due, in the near future, with this provider at this time: Yes The last office visit in the department: 09/07/24 Does the patient have a future office visit with this provider/department: No Requested Prescriptions Pending Prescriptions Disp Refills montelukast (SINGULAIR) 10 mg tablet 90 tablet 0 Sig: Take 1 tablet by mouth once daily. SERGE MARROQUIN September 14, 2024 1:27 PM [facility] 09-14-2024 Miscellaneous Notes Prescription Refill Information The patient has been identified by name and date of : Yes Caregiver verified no other encounters exist for this prescription request: Yes Caregiver confirmed with patient/requestor that no other refills are due, in the near future, with this provider at this time: Yes The last office visit in the department: 09/07/24 Does the patient have a future office visit with this provider/department: No Requested Prescriptions Pending Prescriptions Disp Refills montelukast (SINGULAIR) 10 mg tablet 90 tablet 0 Sig: Take 1 tablet by mouth once daily. SERGE MARROQUIN September 14, 2024 1:27 PM documented in this encounter [facility] 09-07-2024 Note HNO ID: [id number] Author: KRYSTLE KENT APRN.FINANCIAL SERVICES SPECIALIST Service: ? Author Type: Nurse Practitioner Type: Progress Notes Filed: 09/07/2024 14:12 Note Text: Irvin Kline is a 34-year-old female presenting for evaluation of recurrent headaches and multiple scalp nodules. Headaches: - Frequent headaches prompting recent ER visit at [place] on Friday. - c/o hardened nodules on head - CT scan performed; results indicated calcium deposits. Scalp Nodules: - Multiple nodules on the scalp, some painful to touch. - Two nodules on the posterior scalp have been present for a while and are gradually enlarging. - Recently noticed additional nodules on the superior and lateral aspects of the scalp. - Reports that one nodule seems to have increased in size Scleroderma Concerns: - Family history of scleroderma in grandmother. - Expresses concern about the possibility of having scleroderma Bruising: - Reports easy bruising. - Experiences pain with minimal pressure on legs from son or dog. PAST MEDICAL HISTORY Diagnosis Date Anemia Asthma (HCC) PAST SURGICAL HISTORY Procedure Laterality Date NONE Allergies: ALLERGIES Allergen Reactions Rocephin [Ceftriaxo* Anaphylaxis per pt mother was 3yo Medications: semaglutide, weight loss, (WEGOVY) 1 mg/0.5 mL pen injector Inject 1 mg subcutaneously one time a week. lamoTRIgine (LAMICTAL) 100 mg tablet TAKE 1 TABLET BY MOUTH EVERYDAY AT BEDTIME albuterol HFA (PROVENTIL HFA, VENTOLIN HFA) 90 mcg/actuation inhaler INHALE 2 PUFFS INSTRUCTED EVERY 4 HOURS NEEDED FOR WHEEZING/SHORTNESS OF BREATH. blood sugar diagnostic (BLOOD GLUCOSE TEST) test strip Use as instructed to check blood glucose level one time daily Blood-Glucose Meter,Continuous (DEXCOM G7 HAT CONE INSPECTOR) misc Use as directed to monitor blood glucose 4-6 times per day. Reactive hypoglycemia [E16.1] Blood-Glucose Sensor (DEXCOM G7 SENSOR) mallika Use as directed to monitor blood glucose 4-6 times per day. Reactive hypoglycemia [E16.1] metFORMIN ER (GLUCOPHAGE XR) 500 mg 24 hr tablet Take 1 tablet by mouth three times a day with meals. traZODone (DESYREL) 100 mg tablet take 1 [...] 1 PUFF INSTRUCTED TWO TIMES A DAY. fluticasone (FLONASE) 50 mcg/actuation nasal spray Use 1 Calvert in each nostril once daily. Lancets lancets Use as instructed Blood-Glucose Meter 1 Each once daily. albuterol (PROVENTIL) 2.5 mg /3 mL (0.083 %) nebulizer solution Use 3 mL via nebulizer every 4 hours as needed for wheezing/shortness of breath. Inhale by nebulizer over 5-15 minutes. albuterol HFA (PROAIR HFA) 90 mcg/actuation inhaler Inhale 2 Puffs as instructed every 6 hours as needed for wheezing/shortness of breath. Nebulizer and Compressor For Neb Use as directed FEXOFENADINE HCL (LAQUITA ALLERGY ORAL) Take by mouth once daily. tirzepatide, weight loss (ZEPBOUND) 5 mg/0.5 mL pen injector Inject 5 mg subcutaneously one time a week. tirzepatide, weight loss (ZEPBOUND) 2.5 mg/0.5 mL pen injector Inject 2.5 mg subcutaneously one time a week. (Patient not taking: Reported on 09/07/2024) [DISCONTINUED] levalbuterol tartrate HFA 45 mcg/actuation inhaler Inhale 2 Puffs as instructed every 4 hours as needed for wheezing/shortness of breath. ergocalciferol 50,000 unit capsule (VITAMIN D2, DRISDOL) Take 1 capsule by mouth one time a week. (Patient not taking: Reported on 09/07/2024) ferrous sulfate 325 mg (65 mg iron) tablet Take 1 tablet by mouth two times a day. (Patient not taking: Reported on 09/07/2024) mepolizumab (NUCALA) 100 mg injection Inject 100 mg subcutaneously every 4 weeks. (Patient not taking: Reported on 09/07/2024) Review of Systems Constitutional: Negative for appetite change, chills, diaphoresis, fatigue and fever. HENT: Negative for tinnitus. Eyes: Negative for photophobia and visual disturbance. Respiratory: Negative for cough, chest tightness, shortness of breath and wheezing. Cardiovascular: Negative for chest pain, palpitations and leg swelling. Gastrointestinal: Negative. Genitourinary: Negative. Musculoskeletal: Negative for myalgias. Skin: Negative for rash. Nodules to head Neurological: Negative for dizziness, syncope, weakness, light-headedness, numbness and headaches. Psychiatric/Behavioral: Negative for dysphoric mood, self-injury, sleep disturbance and suicidal ideas. The patient is not nervous/anxious. All other systems reviewed and are nega (more content not included)... [facility] 09-07-2024 History of Presen t illness Narrative Images from the original note were not included. Irvin Kline is a 34-year-old female presenting for evaluation of recurrent headaches and multiple scalp nodules. Headaches: - Frequent headaches prompting recent ER visit at [place] on Friday. - c/o hardened nodules on head - CT scan performed; results indicated calcium deposits. Scalp Nodules: - Multiple nodules on the scalp, some painful to touch. - Two nodules on the posterior scalp have been present for a while and are gradually enlarging. - Recently noticed additional nodules on the superior and lateral aspects of the scalp. - Reports that one nodule seems to have increased in size Scleroderma Concerns: - Family history of scleroderma in grandmother. - Expresses concern about the possibility of having scleroderma Bruising: - Reports easy bruising. - Experiences pain with minimal pressure on legs from son or dog. PAST MEDICAL HISTORY Diagnosis Date Anemia Asthma (HCC) PAST SURGICAL HISTORY Procedure Laterality Date NONE Allergies: ALLERGIES Allergen Reactions Rocephin [Ceftriaxo* Anaphylaxis per pt mother was 3yo Medications: semaglutide, weight loss, (WEGOVY) 1 mg/0.5 mL pen injector Inject 1 mg subcutaneously one time a week. lamoTRIgine (LAMICTAL) 100 mg tablet TAKE 1 TABLET BY MOUTH EVERYDAY AT BEDTIME albuterol HFA (PROVENTIL HFA, VENTOLIN HFA) 90 mcg/actuation inhaler INHALE 2 PUFFS INSTRUCTED EVERY 4 HOURS NEEDED FOR WHEEZING/SHORTNESS OF BREATH. blood sugar diagnostic (BLOOD GLUCOSE TEST) test strip Use as instructed to check blood glucose level one time daily Blood-Glucose Meter,Continuous (DEXCOM G7 HAT CONE INSPECTOR) misc Use as directed to monitor blood glucose 4-6 times per day. Reactive hypoglycemia [E16.1] Blood-Glucose Sensor (DEXCOM G7 SENSOR) mallika Use as directed to monitor blood glucose 4-6 times per day. Reactive hypoglycemia [E16.1] metFORMIN ER (GLUCOPHAGE XR) 500 mg 24 hr tablet Take 1 tablet by mouth three times a day with meals. traZODone (DESYREL) 100 mg tablet take 1 [...] 1 PUFF INSTRUCTED TWO TIMES A DAY. fluticasone (FLONASE) 50 mcg/actuation nasal spray Use 1 Calvert in each nostril once daily. Lancets lancets Use as instructed Blood-Glucose Meter 1 Each once daily. albuterol (PROVENTIL) 2.5 mg /3 mL (0.083 %) nebulizer solution Use 3 mL via nebulizer every 4 hours as needed for wheezing/shortness of breath. Inhale by nebulizer over 5-15 minutes. albuterol HFA (PROAIR HFA) 90 mcg/actuation inhaler Inhale 2 Puffs as instructed every 6 hours as needed for wheezing/shortness of breath. Nebulizer and Compressor For Neb Use as directed FEXOFENADINE HCL (LAQUITA ALLERGY ORAL) Take by mouth once daily. tirzepatide, weight loss (ZEPBOUND) 5 mg/0.5 mL pen injector Inject 5 mg subcutaneously one time a week. tirzepatide, weight loss (ZEPBOUND) 2.5 mg/0.5 mL pen injector Inject 2.5 mg subcutaneously one time a week. (Patient not taking: Reported on 09/07/2024) [DISCONTINUED] levalbuterol tartrate HFA 45 mcg/actuation inhaler Inhale 2 Puffs as instructed every 4 hours as needed for wheezing/shortness of breath. ergocalciferol 50,000 unit capsule (VITAMIN D2, DRISDOL) Take 1 capsule by mouth one time a week. (Patient not taking: Reported on 09/07/2024) ferrous sulfate 325 mg (65 mg iron) tablet Take 1 tablet by mouth two times a day. (Patient not taking: Reported on 09/07/2024) mepolizumab (NUCALA) 100 mg injection Inject 100 mg subcutaneously every 4 weeks. (Patient not taking: Reported on 09/07/2024) Review of Systems Constitutional: Negative for appetite change, chills, diaphoresis, fatigue and fever. HENT: Negative for tinnitus. Eyes: Negative for photophobia and visual disturbance. Respiratory: Negative for cough, chest tightness, shortness of breath and wheezing. Cardiovascular: Negative for chest pain, palpitations and leg swelling. Gastrointestinal: Negative. Genitourinary: Negative. Musculoskeletal: Negative for myalgias. Skin: Negative for rash. Nodules to head Neurological: Negative for dizziness, syncope, weakness, light-headedness, numbness and headaches. Psychiatric/Behavioral: Negative for dysphoric mood, self-injury, sleep disturbance and suicidal ideas. The patient is not nervous/anxious. All other systems reviewed and are negative. Objective BP 106/73 (BP Site: Left Arm, BP Position: Sitting, BP Cuff Size: Large Adult) Pulse 77 Temp 36.6 C (97.8 F) (Tympanic) Ht 162.6 cm (5' 4") Wt 100 kg (220 lb 5.6 oz) LMP 08/29/2024 (Approximate) SpO2 100% BMI 37.82 kg/m Physical Exam Vitals and nursing note reviewed. Constitutional: General: She is awake. She is not in acute distress. Appearance: Normal appearance. She is well-developed. She is obese. She is not ill-appearing. HENT: Head: Eyes: Conjunctiva/sclera: Conjunctivae normal. Pupils: Pupils are equal, round, and reactive to light. Cardiovascular: Rate and Rhythm: Normal rate and regular rhythm. Pulses: Normal pulses. Heart sounds: Normal heart sounds. Pulmonary: Effort: Pulmonary effort is normal. No respiratory distress. Breath sounds: Normal breath sounds. No decreased breath sounds or wheezing. Musculoskeletal: General: Normal range of motion. Cervical back: Normal range of motion and neck supple. Right lower leg: No edema. Left lower leg: No edema. Lymphadenopathy: Cervical: No cervical adenopathy. Skin: General: Skin is warm and dry. Capillary Refill: Capillary refill takes less than 2 seconds. Coloration: Skin is not jaundiced or pale. Findings: No abrasion, bruising, ecchymosis, erythema, signs of injury, laceration, lesion, rash or wound. Neurological: General: No focal deficit present. Mental [...] Cognition and memory normal. Judgment: Judgment normal. Assessment and Plan 1. Mass of skin (R22.9) - Recent CT scan identified these as calcium deposits. - Ordered rheum labs - Referred to rheumatology for further evaluation 2. Family history of scleroderma (Z82.69) - Grandmother has scleroderma 3. Skin sensitivity (R23.8) - Reports increased sensitivity to pressure on the legs, described as painful when minimal pressure is applied. - No joint swelling observed. 4. Bruising (T14.8XXA) - cbc ordered Follow up as needed or sooner if new or worsening symptoms. Krystle Kent APRN.FINANCIAL SERVICES SPECIALIST Recording using ambient AI software for draft documentation of the visit was discussed with the patient/authorized new accounts representative; all questions welcomed and answered. Patient/authorized new accounts representative agreed to proceed documented in this encounter [facility] 09-04-2024 Radiology Diagnostic study note [facility] Imaging Services [address] [place], [place] [address] Brain/Head without Contrast MR#: [id number] Acct: [id number] Name: IRVIN KLINE Rep #: [id number] : 1990 F 34 From: Paz Sheffield MD PCP: Donald Snowden Status: REG ER Study:Brain/Head without Contrast Date of Exa m: 09/04/24 Exam# [id number] Ordering Dr: Charlie Karimi DO PROCEDURE: BRAIN/HEAD WITHOUT CONTRAST 09/04/2024 REASON FOR EXAM: HEADACHE TECHNIQUE: BRAIN/HEAD WITHOUT CONTRAST Coronal and Sagittal reconstruction series were provided. One or more dose reduction techniques were used (e.g., Automated exposure control, adjustment of the mA and/or kV according to patient size, use of iterative reconstruction technique. RADIATION DOSE SUMMARY: CTDlvol: 45 mGy DLP: 779 mGycm COMPARISON: None FINDINGS: Brain: No acute intracranial hemorrhage, mass effect, or midline shift CSF Spaces: Unremarkable Sinuses/Mastoids: Predominantly clear Bones: Unremarkable Scalp: There are several nodules in the scalp containing calcification, for example over the frontal bone measuring 8 mm (sagittal image 33) and in the right occipital region measuring up to 1.0 cm (series 2, image 10). CT/Brain/Head without Contrast IMPRESSION: 1. Nodules containing calcification throughout the scalp measuring up to 1.0 cm in size, most notably in the right occipital region. Differential includes pilar cysts, epidermal inclusion cyst, or other neoplasm. Recommend clinical follow-up. 2. No acute intracranial abnormality. Reading Location: [id number] CC: Donald Snowden; Dr. Charlie Karimi DO ~ Department Of Mathematics Chair: Signed [facility] 08-30-2024 Telephone encounter Note Refill sent via refill portal Kimberly Nixon MA [facility] 08-30-2024 Miscellaneous Notes Refill sent via refill portal Kimberly Nixon MA documented in this encounter [facility] 08-30-2024 Telephone encounter Note IRENE: 06/02/2024 Zepbound is no longer covered, but Wegovy is. Currently taking Zepound 5 mg Please send in wegovy thank you Kimberly Nixon MA [facility] 08-30-2024 Miscellaneous Notes IRENE: 06/02/2024 Zepbound is no longer covered, but Wegovy is. Currently taking Zepound 5 mg Please send in wegovy thank you Kimberly Nixon MA documented in this encounter [facility] 08-26-2024 Telephone encounter Note Confirmation of Order for Nebulizer and supplies signed and faxed to [facility]. 2 documents sent to scanning. Chad Gore [facility] 08-26-2024 Miscellaneous Notes Confirmation of Order for Nebulizer and supplies signed and faxed to [facility]. 2 documents sent to scanning. Chad Gore documented in this encounter [facility] 08-06-2024 Telephone encounter Note Called to schedule new patient appointment, jorje Arana August 06, 2024 9:58 AM [facility] 08-06-2024 Miscellaneous Notes Called to schedule new patient appointment, jorje Arana August 06, 2024 9:58 AM documented in this encounter [facility] 07-29-2024 Telephone encounter Note Prescription Refill Information [...] Everett MA July 29, 2024 11:29 AM [facility] 07-29-2024 Miscellaneous Notes Prescription Refill Information The [...] 2024 11:29 AM documented in this encounter [facility] 07-21-2024 Telephone encounter Note Refill with dose increase sent via refill portal Kimberly Nixon MA [facility] 07-21-2024 Miscellaneous Notes Refill with dose increase sent via refill portal Kimberly Nixon MA documented in this encounter [facility] 07-21-2024 Telephone encounter Note IRENE: 06/02/2024 Patient [...] out to me via Deng Nixon MA [facility] 07-21-2024 Miscellaneous Notes IRENE: 06/02/2024 Patient is [...] Deng Nixon MA documented in this encounter [facility] 06-30-2024 Telephone encounter Note Images from the original note were not included. IRVIN KLINE (Isaac: [id number]) PA Need Help? Call us at Outcome Approved on June 29 by [facility] 2016 Your PA request has been approved. Additional information will be provided in the approval communication. (Message 1146) Effective Date: 06/29/2024 Authorization Expiration Date: 06/29/2025 Drug Nucala 100MG/ML auto-injectors Form [employer] Electronic PA Form (2016 [place] [facility] 06-30-2024 Miscellaneous Notes Images from the original note were not included. IRVIN KLINE (Isaac: [id number]) PA Need Help? Call us at Outcome Approved on June 29 by [facility] 2016 Your PA request has been approved. Additional information will be provided in the approval communication. (Message 114) Effective Date: 06/29/2024 Authorization Expiration Date: 06/29/2025 Drug Nucala 100MG/ML auto-injectors Form [employer] Electronic PA Form (2016 [place] Images from the original note were not included. IRVIN KLINE (Isaac: [id number]) Need Help? Call us at Status Sent to Plan today Drug Nucala 100MG/ML auto-injectors Form [employer] Electronic PA Form (2016 [place] documented in this encounter [facility] 06-29-2024 Telephone encounter Note Images from the original note were not included. IRVIN KLINE (Isaac: [id number]) Need Help? Call us at Status Sent to Plan today Drug Nucala 100MG/ML auto-injectors Form [employer] Electronic PA Form (2016 N[place] [facility] 06-21-2024 Telephone encounter Note Last office visit 03/09/24 [facility] 06-21-2024 Miscellaneous Notes Last office visit 03/09/24 documented in this encounter [facility] 06-08-2024 Telephone encounter Note Received approval 06/03/2024 through 01/29/2025 Send for scanning. Kimberly Nixon MA [facility] 06-08-2024 Miscellaneous Notes Received approval 06/03/2024 through 01/29/2025 Send for scanning. Kimberly Nixon MA Initiated PA for tirzepatide, weight loss (ZEPBOUND) 2.5 mg/0.5 mL through [employer]ures[employer]s Questions Completed/attached notes Waiting for determination Wiliam Johnson Prior Paraprofessional Interpreter Endocrinology & Metabolism [place] documented in this encounter [facility] 06-03-2024 Telephone encounter Note Initiated PA for tirzepatide, weight loss (ZEPBOUND) 2.5 mg/0.5 mL through Surescripts Questions Completed/attached notes Waiting for determination Wiliam Johnson Prior Paraprofessional Interpreter Endocrinology & Metabolism [place] [facility] 06-03-2024 Note HNO ID: [id number] Author: AYALA DUNLAP LPN Service: ? Author [...] equipment. Billed to humberto. Ayala Dunlap LPN [facility] 06-03-2024 History of Presen t illness [...] lateral aspect of the ankle, described as "shooting" when weight-bearing. 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 Attestation Recording using [employer] software for draft documentation of the visit was discussed with the patient/authorized new accounts representative; all questions welcomed and answered. Patient/authorized new accounts representative agreed to proceed Arlene Pittman DPM AMB ROOMING INTAKE FLOWSHEET DATA Pain Pain Level: 5 Pain Location: Ankle-Right Description: Shooting Duration Units: Months Frequency: Intermittent Intervention/Comfort measure: Relaxation, Reposition Patient presents with: Right Ankle - Follow Up, Pain, Established Patient, Weakness Ayala Dunlap LPN documented in this encounter [facility] 06-03-2024 Note HNO ID: [id number] Author: ARLENE PITTMAN, ? Service: ? Author [...] lateral aspect of the ankle, described as "shooting" when weight-bearing. 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 Attestation Recording using [employer] software for draft documentation of the visit was discussed with the patient/authorized new accounts representative; all questions welcomed and answered. Patient/authorized new accounts representative agreed to proceed Arlene Pittman DPM [facility] 06-03-2024 Instructions Arlene Pittman - 06/03/2024 [...] repair if indicated. documented in this encounter [facility] 06-03-2024 Note HNO ID: [id number] Author: AYALA DUNLAP LPN Service: ? Author Type: LICENSED NURSE Type: Progress Notes Filed: 06/03/2024 09:18 Note Text: AMB ROOMING INTAKE FLOWSHEET DATA Pain Pain Level: 5 Pain Location: Ankle-Right Description: Shooting Duration Units: Months Frequency: Intermittent Intervention/Comfort measure: Relaxation, Reposition Patient presents with: Right Ankle - Follow Up, Pain, Established Patient, Weakness Ayala Dunlap LPN [facility] 06-02-2024 Instructions Dylan Topete MD - 06/02/2024 2:46 PM EDT Add OTC vitamin B12 - 1000 mcg daily Start Zepbound 2.5 mg sq per week If you've taken 2.5 mg for 4 weeks (or more) & feel that a dosage increase would be helpful, then [facility] Follow [facility] months with [facility] NURSING SECRETARY (weight management) Follow up in 6 months with me documented in this encounter [facility] 06-02-2024 Note HNO ID: [id number] Author: DYLAN TOPETE MD Service: ? Author [...] Reactive hypoglycemia [E16.1] Blood-Glucose Meter,Continuous (DEXCOM G7 HAT CONE INSPECTOR) misc Use as directed to monitor blood [...] (FLONASE) 50 mcg/actuation nasal spray Use 1 Calvert in each nostril once daily. Lancets lancets [...] (J45.50) Asthma, late onset, severe persistent, uncomplicated ([facility]) (E66.813, E66.01, Z68.41) Class 3 severe obesity due to excess calories with serious comorbidity and body mass index (BMI) of 40.0 to 44.9 in adult ([facility]) (E53.8) Vitamin B12 deficiency Her CGM data [...] she is concerned about hypoglycemia unawareness - "I never know when I'm low"; will continue for now She has class 3 obesity associated with multiple medical problems that are driven by obesity. She would benefit from 50-80 lbs weight loss. Zepbound MAY be available on her formulary with prior authorization. Will pursue this for her. Vitamin B12 is low-normal. Asso (more content not included)... [facility] 06-02-2024 History of Presen t illness [...] Reactive hypoglycemia [E16.1] Blood-Glucose Meter,Continuous (DEXCOM G7 HAT CONE INSPECTOR) misc Use as directed to monitor blood [...] (FLONASE) 50 mcg/actuation nasal spray Use 1 Calvert in each nostril once daily. Lancets lancets [...] she is concerned about hypoglycemia unawareness - "I never know when I'm low"; will continue for now She has class [...] helpful, then reach out to me via [facility] Follow up in 3 months with [facility] NURSING SECRETARY (weight management) Follow up in 6 months with me Level of complexity: 4 Dylan Topete MD Endocrinology, Diabetes, & Metabolism June 02, 2024 2:35 PM documented in this encounter [facility] 06-02-2024 Note HNO ID: [id number] Author: TE JUAN OCCA Service: ? Author Type: Milk Vendor Type: Procedures Filed: 06/02/2024 14:58 Note Text: [facility] 06-02-2024 Procedure note Images from the original note were not included. [facility] 06-02-2024 Procedure note Images from the original note were not included. documented in this encounter [facility] 05-12-2024 Note HNO ID: [id number] Author: NEIL RUCKER APRN.FINANCIAL SERVICES SPECIALIST Service: ? Author Type: Nurse Practitioner Type: [...] Reactive hypoglycemia [E16.1] Blood-Glucose Meter,Continuous (DEXCOM G7 HAT CONE INSPECTOR) misc Use as directed to monitor blood [...] (FLONASE) 50 mcg/actuation nasal spray Use 1 Calvert in each nostril once daily. Blood-Glucose Transmitter [...] Tenderness present. No (more content not included)... [facility] 05-12-2024 History of Presen t illness [...] Reactive hypoglycemia [E16.1] Blood-Glucose Meter,Continuous (DEXCOM G7 HAT CONE INSPECTOR) misc Use as directed to monitor blood [...] (FLONASE) 50 mcg/actuation nasal spray Use 1 Calvert in each nostril once daily. Blood-Glucose Transmitter [...] twice a day with food. Neil Rucker APRN.FINANCIAL SERVICES SPECIALIST MDM Patient is well appearing in no acute distress, no concerns for acute cardiac process. She is asthmatic with dry cough for last three weeks, she is poorly controlled taking albuterol 4-6 times a day. Discussed prednisone, patient states she gets hyperglycemic and declines. She is having reproducible musculoskeletal pain with costochondritis from consistent coughing. Discussed NSAIDs and follow up with PCP and cement storage worker. IF symptoms of chest pain, shortness of breath, worsen seeking emergency care. Patient discharged home, well appearing in not acute distress. Scar in there okay blood pressure on the nerve so we wanted to use a Arslan open [place] at [facility] and he did some injection that took care of okay because he did an x-ray and he did see a white spot to get scar tissue in there from a male and that crazy but I completed his left so if she Procedures documented in this encounter [facility] 05-05-2024 Telephone encounter Note Images from the original note were not included. Blood-Glucose Sensor (DEXCOM G7 SENSOR) has been approved Notified patient through deng Johnson Prior Paraprofessional Interpreter Endocrinology & Metabolism [place] [facility] 05-05-2024 Miscellaneous Notes Images from the original note were not included. Blood-Glucose Sensor (DEXCOM G7 SENSOR) has been approved Notified patient through deng Johnson Prior Paraprofessional Interpreter Endocrinology & Metabolism [place] documented in this encounter [facility] 03-09-2024 Note HNO ID: [id number] Author: ROBSON ZUNIGA MD Service: ? Author [...] Reactive hypoglycemia [E16.1] Blood-Glucose Meter,Continuous (DEXCOM G7 HAT CONE INSPECTOR) misc Use as directed to monitor blood [...] (FLONASE) 50 mcg/actuation nasal spray Use 1 Calvert in each nostril once daily. Blood-Glucose Transmitter [...] 86 Temp 98.2 Resp 16 Ht 5' 4" (1.63m) Wt 252 lb (114.3kg) SpO2 99% [...] 4.3 Sodium (mmol/ (more content not included)... [facility] 03-09-2024 History of Presen t illness [...] INSTRUCTED TWO TIMES A DAY. Blood-Glucose Sensor (Doctor.comCOM G7 SENSOR) mallika Use as directed to monitor blood glucose 4-6 times per day. Reactive hypoglycemia [E16.1] Blood-Glucose Meter,Continuous (DEXCOM G7 HAT CONE INSPECTOR) misc Use as directed to monitor blood [...] (FLONASE) 50 mcg/actuation nasal spray Use 1 Calvert in each nostril once daily. Blood-Glucose Transmitter [...] For Neb Use as directed FEXOFENADINE HCL (LAQIUTA ALLERGY ORAL) Take by mouth once daily. [...] 86 Temp 98.2 Resp 16 Ht 5' 4" (1.63m) Wt 252 lb (114.3kg) SpO2 99% [...] Collected: 10/28/2023 1:23 PM (Final result) Narrative: [facility] 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 Operator: : 1990 Requested By: Order Number: [id number] Reading MD: Clifton Beckford DO Interpretive Statements [...] 11:48:43 EDT by Clifton Beckford, DO ID: [id number] Name: IRVIN KLINE Race: White Ht: 63.07 in Wt: 256.40 lbs Age: 33 Gender: Female : 1990 Dx: Severe persistent asthma, uncomplicated Smoking Hx: Non-smoker Doctor: NELLA PAYTON Test Date: 10/28/2023 Site: [facility] Tech: MERA PÉREZ PRE-BRONCH POST-BRONCH Pre LLN [...] 0.80 -8 FIVC (L) 3.27 3.48 6 [id number] (L/sec) 1.94 2.14 3.37 4.83 57 2.91 [...] =79/min.//NS SPIROMETRY - BASELINE AND POST DILATOR ([id number]) - ordered on 10/28/23 No textual results [...] 09, 2024 TIME: 2:25 PM PAGER/CONTACT #: [phone] MYC ASTHMA CONTROL TEST Question 03/02/2024 2:03 [...] 25) 21 14 documented in this encounter [facility] 03-09-2024 Instructions Robson Zuniga MD - 03/09/2024 2:23 PM EST NUCALA Same budesonide and advair Montelukast PFT much better documented in this encounter [facility] 03-09-2024 Note HNO ID: [id number] Author: CUCA RIOS MA Service: ? Author Type: Milk Vendor Type: Progress Notes Filed: 03/10/2024 07:49 Note [...] Score (range: 0 - 25) 21 14 [facility] 02-23-2024 Telephone encounter Note Spoke with patient regarding any recent insurance changes. Pt was unaware of changes and stated she would speak with her regarding that. [address] to [place] number provided to update if needed and request for pt to update office with any recent changes to insurance. Pt verbalized understanding of all Robert Olivarez RN February 23, 2024 2:09 PM [facility] 02-23-2024 Miscellaneous Notes Spoke with patient regarding any recent insurance changes. Pt was unaware of changes and stated she would speak with her regarding that. [address] to [place] number provided to update if needed and request for pt to update office with any recent changes to insurance. Pt verbalized understanding of all Robert Olivarez RN February 23, 2024 2:09 PM documented in this encounter [facility] 02-05-2024 Telephone encounter Note Appointment scheduled for 03/09/[address] zuniga [facility] 02-05-2024 Miscellaneous Notes Appointment scheduled for 03/09/[address] zuniga documented in this encounter [facility] 01-12-2024 Telephone encounter Note Prescription Refill Information [...] Michel LPN January 12, 2024 5:49 PM [facility] 01-12-2024 Miscellaneous Notes Prescription Refill Information The [...] 2024 5:49 PM documented in this encounter [facility] 12-19-2023 Telephone encounter Note 11/03/23 last appointment [facility] 12-19-2023 Miscellaneous Notes 11/03/23 last appointment documented in this encounter [facility] 12-03-2023 Note HNO ID: [id number] Author: CHASE BAZAN APRN.FINANCIAL SERVICES SPECIALIST Service: ? Author Type: Nurse Practitioner Type: Progress Notes Filed: 12/03/2023 15:31 Note Text: [facility]IC[facility] PROGRESS NOTE PATIENT: Irvin Kline MRD: [id number] DATE: December 03, 2023 IDENTIFYING INFORMATION: Irvin [...] visit. Either the patient or their legal new accounts representative has been informed of the risks [...] some anxiety lingers. She had been attending [facility], but a notice was received showing she did not complete the program but rather "left voluntarily." No longer will have counseling, does have "person" [facility]. Unsure if they are licensed or not. She continues to get frustrated with her kids, but is not as "snappy" with her kids. She is getting better [...] (09/08-06/10)Ineffective, Seroquel 100mg (05/09), Zoloft-becam ineffective overtime, Effexor-"bugs crawling on me." Latuda-"more manic," Hospitalizations: Never--not admitted. 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 Longest job -[employer] x 5 years while in . [...] that other peopl (more content not included)... [facility] 12-03-2023 History of Presen t illness Narrative Images from the original note were not included. [facility] MEDICINE PROGRESS NOTE PATIENT: Irvin Kline MRD: [id number] DATE: December 03, 2023 IDENTIFYING INFORMATION: Irvin [...] visit. Either the patient or their legal new accounts representative has been informed of the risks [...] celexa 10mg every day. Continues to have "crying fits, but not as frequent. She has [...] some anxiety lingers. She had been attending [facility], but a notice was received showing she did not complete the program but rather "left voluntarily." No longer will have counseling, does have "person" [facility]. Unsure if they are licensed or not. She continues to get frustrated with her kids, but is not as "snappy" with her kids. She is getting better [...] (09/08-06/10)Ineffective, Seroquel 100mg (05/09), Zoloft-becam ineffective overtime, Effexor-"bugs crawling on me." Latuda-"more manic," Hospitalizations: Never--not admitted. 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 Longest [...] by mouth every other day. Blood-Glucose Sensor (DEXRegalister G7 SENSOR) mallika Use as directed to monitor blood glucose 4-6 times per day. Reactive hypoglycemia [E16.1] Blood-Glucose Meter,Continuous (DEXCOM G7 HAT CONE INSPECTOR) misc Use as directed to monitor blood [...] (FLONASE) 50 mcg/actuation nasal spray Use 1 Calvert in each nostril once daily. fluconazole (DIFLUCAN) 100 mg tablet Take 1 tablet by mouth once daily. Blood-Glucose Transmitter ([x+1] G6 TRANSMITTER) mallika 1 Each once daily. [...] which included preparing to see the patient, [id number] patient care, completing clinical documentation, obtaining and/or [...] Chase Bazan APRN.SHEN documented in this encounter [facility] 10-15-2024 Note HNO ID: [id number] Author: CHASE BAZAN APRN.CNP Service: ? Author Type: Nurse Practitioner Type: Progress Notes Filed: 12/02/2023 14:59 Note Text: Fax received from [facility]---MARÍA ELENA Marino with [facility] ([phone]) States patient attended 12 sessions, but did not complete the program. "Left Voluntarily" Bonds Depression and Anxiety Inventory Scores: Anxiety: Pre-33 Mid-12 Depression: Pre-55 Mid-19 No new orders [facility] 12-02-2023 History of Presen t illness Narrative Fax received from [facility] ELENA Marino with [facility] ([phone]) States patient attended 12 sessions, but did not complete the program. "Left Voluntarily" Bonds Depression and Anxiety Inventory Scores: Anxiety: Pre-33 Mid-12 Depression: Pre-55 Mid-19 No new orders documented in this encounter [facility] 11-18-2023 Telephone encounter Note Requester: Patient Last encounter Visit on 11/06/2023 (with Dylan Topete) Follow-up evaluation has been established Upcoming Endocrinology Appointments - Next 365 Days Visit Type Date Time Department EST TONG PATIENT 06/02/2024 2:10 PM ENDO [facility] Requested Prescriptions Pending Prescriptions Disp Refills [...] Foy et al. 2017 Guidelines of the [place] Thyroid Association for the Diagnosis and Management [...] Foy et al. 2017 Guidelines of the [place] Thyroid Association for the Diagnosis and Management [...] 5.2 4.3 - 5.6 % Final Comment: Location:[facility], [facility] [address], [place], [address] Point of care (POC) Hemoglobin A1c (HGBA1C) [...] specific diabetes management situations: The POC device dietary services manager provides a normal range of 4.2% to 6.5% for the HGBA1C POC test. However, the [place] Diabetes Association guidelines indicate that patients with [...] 74 - 99 mg/dL Final Comment: The [place] Diabetes Association (ADA) provides guidance for cutoff [...] Standards of Medical Care in Diabetes 2016, [place] Diabetes Association. Diabetes Care. 2016.39(Suppl 1). Vitamin [...] Patient needs scheduled appointment No SERGE Garcia [facility] 11-18-2023 Miscellaneous Notes Requester: Patient Last encounter Visit on 11/06/2023 (with Dylan Topete) Follow-up evaluation has been established Upcoming Endocrinology Appointments - Next 365 Days Visit Type Date Time Department EST TONG PATIENT 06/02/2024 2:10 PM ENDO [facility] Requested Prescriptions Pending Prescriptions [...] 0.110-3.980 mIU/L Third Trimester: 0.480-4.710 mIU/L Dandre Welsh, et al. A Practical Approach for the Verifications and Determination of Site- and Trimester-Specific Reference Intervals for Thyroid Function tests in . Thyroid, 2019:29:3:412-420. Himanshu Foy, et al. 2017 Guidelines of the [place] Thyroid Association for the Diagnosis and Management of Thyroid Disease during and the . Thyroid, 2017:27:3:315-389. 04/11/2023 2.220 0.270 - 4.200 mIU/L Final Comment: If the patient is , TSH reference range varies by gestational period: First Trimester (weeks 9-12): 0.180-2.990 mIU/L Second Trimester: 0.110-3.980 mIU/L Third Trimester: 0.480-4.710 mIU/L Dandre Welsh, et al. A Practical Approach for the Verifications and Determination of Site- and Trimester-Specific Reference Intervals for Thyroid Function tests in . Thyroid, 2019:29:3:412-420. Himanshu Foy, et al. 2017 Guidelines of the [place] Thyroid Association for the Diagnosis and Management [...] 5.2 4.3 - 5.6 % Final Comment: Location:[facility], [address] [place], [address] Point of care (POC) Hemoglobin A1c (HGBA1C) [...] specific diabetes management situations: The POC device dietary services manager provides a normal range of 4.2% to 6.5% for the HGBA1C POC test. However, the [place] Diabetes Association guidelines indicate that patients with [...] 74 - 99 mg/dL Final Comment: The [place] Diabetes Association (ADA) provides guidance for cutoff [...] Standards of Medical Care in Diabetes 2016, [place] Diabetes Association. Diabetes Care. 2016.39(Suppl 1). Vitamin [...] appointment SERGE Palacio documented in this encounter [facility] 11-17-2023 Telephone encounter Note Called the patient [...] to take celexa 10mg every other day. [facility] 11-17-2023 Miscellaneous Notes Called the patient back [...] is requesting to speak with you CLARA Buhcanan documented in this encounter [facility] 11-17-2023 Telephone encounter Note Patient called and left voicemail stating she is having increased depression and is struggling. She is requesting to speak with you CLARA Buchanan [facility] 11-06-2023 Procedure note Images from the original note were not included. [facility] 11-06-2023 Procedure note Images from the original note were not included. documented in this encounter [facility] 11-06-2023 History of Presen t illness Narrative [...] (FLONASE) 50 mcg/actuation nasal spray Use 1 Calvert in each nostril once daily. fluconazole (DIFLUCAN) 100 mg tablet Take 1 tablet by mouth once daily. Blood-Glucose Sensor (DEXCOM G6 SENSOR) mallika 1 Each once daily. Blood-Glucose Transmitter (DEXCOM G6 TRANSMITTER) mallika 1 Each once daily. metFORMIN ER (GLUCOPHAGE XR) 500 mg 24 hr tablet Take 1 tablet by mouth three times a day with meals. Blood-Glucose Meter,Continuous (DEXCOM G6 HAT CONE INSPECTOR) misc 1 Each once daily. Lancets lancets [...] observed: Although the numbers are within the "normal" range of 70-180 mg/dL, there is a [...] 2023 8:42 AM documented in this encounter [facility] 11-03-2023 Instructions Robson Zuniga MD - 11/03/2023 1:07 PM EDT Meds sent Great PFT documented in this encounter [facility] 11-03-2023 History of Presen t illness Narrative VIRTUAL VISIT PROGRESS NOTE This is a virtual visit using [employer] Zoom Video Visit. It required patient-provider interaction for the medical decision making as documented below. I have communicated my name and active licensure. The patient's identity and physical location were verified at the time of this visit. Either the patient or their legal new accounts representative has been informed of the risks and benefits of -- and alternatives to -- treatment through a remote evaluation and consents to proceed with the evaluation remotely. Irvin Kline is a 33 year old female seen for asthma No ED Elizabeth nucala Needed meds refilled Not seen in office like one yr At [facility] today, she not well Last pred May [...] (FLONASE) 50 mcg/actuation nasal spray Use 1 Calvert in each nostril once daily. (Patient not [...] day with meals. Blood-Glucose Meter,Continuous (DEXCOM G6 HAT CONE INSPECTOR) misc 1 Each once daily. Lancets lancets [...] 0.80 -8 FIVC (L) 3.27 3.48 6 [id number] (L/sec) 1.94 2.14 3.37 4.83 57 2.91 [...] meds Nucala helping and sites ok Pft better Out of vet arena Several recent my charts/ encounters reviewed Noted behavior med/psych evals; seemed good to me Patient Instructions Meds sent Great PFT I spent a total of 22 minutes on the date of the service which included preparing to see the patient, [id number] patient care, completing clinical documentation, ordering medications, [...] ESPARZA. Speech intact. documented in this encounter [facility] 11-03-2023 Telephone encounter Note 04/24/23 last appointment [facility] 11-03-2023 Miscellaneous Notes 04/24/23 last appointment documented in this encounter [facility] 10-28-2023 Procedure note Associated Ord er(s): NITRIC [...] 10/28/2023 36.0 (A) 09/26/2022 71.0 (A) NAME: MEAR PÉREZ RRT PATIENT NAME: Irvin Kline DATE: October 28, 2023 TIME: 1:36 PM [facility] 10-28-2023 Procedure note Associated Ord er(s): NITRIC [...] TIME: 1:36 PM documented in this encounter [facility] 10-28-2023 History of Presen t illness Narrative PULM FUNCTION: Provider: Nella Payton MD Spirometry w/BD: 1 Exhaled Nitric Oxide: 1 documented in this encounter [facility] 10-23-2023 Telephone encounter Note Called patient to check status of covid test and symptoms, no answer. Left VM to call offcie [facility] 10-23-2023 Miscellaneous Notes Called patient to check [...] know the results. documented in this encounter [facility] 10-23-2023 Telephone encounter Note Patient scheduled 10/27 for breathing tests [facility] 10-22-2023 Telephone encounter Note Received signed form back from dr. Zuniga- faxed over to Number on form [phone] [facility] 10-22-2023 Miscellaneous Notes Received signed form back from dr. Zuniga- faxed over to Number on form [phone] documented in this encounter [facility] 10-22-2023 Telephone encounter Note Pt called notes [...] first and let us know the results. [facility] 10-21-[address] Zuniga, Form was faxed this morning, I have just sent it to the [facility] again if you want to sign the document. Thanks Chad Gore Dr. Zuniga stated he will sign papers at her next visit, she has not been seen in 6 mos. If she needs sooner than 11/03/23 she can be scheduled clara w/NURSING SECRETARY. The form is at the [facility]. Chad Gore Called patient- she said she is already scheduled for follow up. Just wanting to know if we got the papers from [place] PSS: Please schedule patient in office clara for Zuniga or NURSING SECRETARY follow up to be seen for Medical Certification [employer] assistance. Thank you in advance for your help. Thank you Chad Gore Dr. Zuniga, So noted, I will send a scheduling request. Thank you Chad Gore Dr. Zuniga, She did cancel for September but she was seen virtual by you on 04/24/2023, would this suffice? Thank you Chad Gore Images from the original note were not included. Robson Zuniga MD Busta, Lisbeth; [facility] hour ago (11:55 AM) Happy to discuss at next appt. I dont think she made it for last appt. Type of form: DLS Form received via fax When form is completed, Fax form to Form has been faxed to [facility] office for completion for Dr. Zuniga inbox. Chad Gore documented in this encounter [facility] 10-21-[address] Zuniga, Form was faxed this morning, I have just sent it to the [place] office again if you want to sign the document. Thanks Chad Gore [facility] 10-21-[address] Zuniga stated he will sign papers at her next visit, she has not been seen in 6 mos. If she needs sooner than 11/03/23 she can be scheduled clara w/NURSING SECRETARY. The form is at the [place] office. Chad Gore [facility] [facility] Tele[facility] encounter Note Called patient- she said she is already scheduled for follow up. Just wanting to know if we got the papers from [employer] [facility] 10-21-2023 Telephone encounter Note PSS: Please schedule patient in office clara for Zuniga or NURSING SECRETARY follow up to be seen for Medical Certification [employer] assistance. Thank you in advance for your help. Thank you Chad Gore [facility] 10-21-2023 Telephone encounter Note Opened in error, see duplicate encounter [facility] 10-21-2023 Miscellaneous Notes Opened in error, see duplicate encounter documented in this encounter [facility] 10-21-[address] Zuniga, So noted, I will send a scheduling request. Thank you Chad Gore [facility] 10-21-2023 Note HNO ID: [id number] Author: CHASE BAZAN APRN.FINANCIAL SERVICES SPECIALIST Service: ? Author Type: Nurse Practitioner Type: Progress Notes Filed: 10/21/2023 14:35 Note Text: [facility] GENERAL BEHAVIORAL MEDICINE PROGRESS NOTE PATIENT: Irvin Kline MRD: [id number] DATE: October 21, 2023 IDENTIFYING INFORMATION: Irvin [...] visit. Either the patient or their legal new accounts representative has been informed of the risks [...] and stress. No panic attacks or outbursts. "I am calmer with them. She is getting to work on time and completing tasks. She is more helpful around the house and admits her helps too. No anger or irritability. Occasionally tearful, but "not like it was. I am more in control." Denies SI/HI/ and A/V H. No concern of paranoia, delusions, or psychosis. The patient does not appear to be responding to internal or external stimuli. Sleep has improved, generally wakes x 1 to void. Can get back to sleep easily. She falls asleep quickly and does not feel lethargic in the mornings. More consistent hours. She spoke of going to the center with her "bonus parents" Bill and Beba. They are very supportive of [...] (09/08-06/10)Ineffective, Seroquel 100mg (05/09), Zoloft-becam ineffective overtime, Effexor-"bugs crawling on me." Latuda-"more manic," Hospitalizations: Never--not admitted. 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 [facility] 10-21-2023 History of Presen t illness Narrative Images from the original note were not included. [facility] BEHAVIORAL MEDICINE PROGRESS NOTE PATIENT: Irvin Kline MRD: [id number] DATE: October 21, 2023 IDENTIFYING INFORMATION: Irvin [...] visit. Either the patient or their legal new accounts representative has been informed of the risks [...] and stress. No panic attacks or outbursts. "I am calmer with them. She is getting to work on time and completing tasks. She is more helpful around the house and admits her helps too. No anger or irritability. Occasionally tearful, but "not like it was. I am more in control." Denies SI/HI/ and A/V H. No concern of paranoia, delusions, or psychosis. The patient does not appear to be responding to internal or external stimuli. Sleep has improved, generally wakes x 1 to void. Can get back to sleep easily. She falls asleep quickly and does not feel lethargic in the mornings. More consistent hours. She spoke of going to the [place] center with her "bonus parents" Bill and Beba. They are very supportive of [...] (09/08-06/10)Ineffective, Seroquel 100mg (05/09), Zoloft-becam ineffective overtime, Effexor-"bugs crawling on me." Latuda-"more manic," Hospitalizations: Never--not admitted. 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 (Patient not [...] wheezing/shortness of breath. Blood-Glucose Meter,Continuous (DEXCOM G6 HAT CONE INSPECTOR) misc 1 Each once daily. Lancets lancets [...] activity was identified. 10/21/2023 by Chase Bazan APRN.FINANCIAL SERVICES SPECIALIST PLAN: - Continue Lamictal 100mg qhs - [...] which included preparing to see the patient, [id number]-[id number] patient care, completing clinical documentation, obtaining and/or [...] (around 12/03/2023) for @3pm virtual. Chase Bazan APRN.CNP documented in this encounter [facility] 10-21-[address] Zuniga, She did cancel for September but she was seen virtual by you on 04/24/2023, would this suffice? Thank you Chad Gore [facility] 10-21-2023 Telephone encounter Note Images from the original note were not included. Robson Zuniga MD Busta, Lisbeth; [facility] hour ago (11:55 AM) Happy to discuss at next appt. I dont think she made it for last appt. [facility] 10-21-2023 Telephone encounter Note Type of form: DLS Form received via fax When form is completed, Fax form to Form has been faxed to [facility] office for completion for Dr. Zuniga inbox. Chad Gore [facility] 10-16-2023 Miscellaneous Notes New order: Increase trazodone 50mg to 2 tablets at bedtime. Should have enough to get to appointment on 10/21/23. PAtient called and stated she is still having issues sleeping, even with the 50mg Trazodone. She states she can fall asleep but can't stay asleep. Josefina Buchanan documented in this encounter [facility] 10-16-2023 Telephone encounter Note New order: Increase trazodone 50mg to 2 tablets at bedtime. Should have enough to get to appointment on 10/21/23. [facility] 10-16-2023 Telephone encounter Note PAtient called and stated she is still having issues sleeping, even with the 50mg Trazodone. She states she can fall asleep but can't stay asleep. Josefina Buchanan [facility] 10-08-2023 Telephone encounter Note Increase vraylar to 4.5 mg daily. [facility] 10-08-2023 Miscellaneous Notes Increase vraylar to 4.5 mg daily. documented in this encounter [facility] 10-06-2023 Telephone encounter Note Patient states vomited once last night and has been nauseated and dry heaving since. Concerned about her blood sugars. She is able to tolerate small amounts and fluids. I did advise her to continue to eat small, frequent amount of food as tolerated and monitor blood sugar. Denies having any symptoms. Did advise to contact internet marketing assistant since they are managing her and the medication. If unable to tolerate food or blood sugar dropping, I advised patient to call office back or internet marketing assistant's office or ED. Patient states sugars usually run 90-110 and currently 109. Reason for Disposition Unexplained nausea Answer Assessment - Initial Assessment Questions 1. NAUSEA SEVERITY: "How bad is the nausea?" (e.g., mild, moderate, severe; dehydration, weight loss) - MILD: loss of appetite without change in eating habits - MODERATE: decreased oral intake without significant weight loss, dehydration, or malnutrition - SEVERE: inadequate caloric or fluid intake, significant weight loss, symptoms of dehydration Moderate 2. ONSET: "When did the nausea begin?" Started last night 3. VOMITING: "Any vomiting?" If Yes, ask: "How many times today?" Vomited once last night 4. RECURRENT SYMPTOM: Denies 5. CAUSE: Not sure 6. : "Is there any chance you are ?" (e.g., unprotected intercourse, missed control pill, broken condom) Denies- has tubes removed Protocols used: [id number] [facility] 10-06-2023 Miscellaneous Notes Patient states vomited once last night and has been nauseated and dry heaving since. Concerned about her blood sugars. She is able to tolerate small amounts and fluids. I did advise her to continue to eat small, frequent amount of food as tolerated and monitor blood sugar. Denies having any symptoms. Did advise to contact internet marketing assistant since they are managing her and the medication. If unable to tolerate food or blood sugar dropping, I advised patient to call office back or internet marketing assistant's office or ED. Patient states sugars usually run 90-110 and currently 109. Reason for Disposition Unexplained nausea Answer Assessment - Initial Assessment Questions 1. NAUSEA SEVERITY: "How bad is the nausea?" (e.g., mild, moderate, severe; dehydration, weight loss) - MILD: loss of appetite without change in eating habits - MODERATE: decreased oral intake without significant weight loss, dehydration, or malnutrition - SEVERE: inadequate caloric or fluid intake, significant weight loss, symptoms of dehydration Moderate 2. ONSET: "When did the nausea begin?" Started last night 3. VOMITING: "Any vomiting?" If Yes, ask: "How many times today?" Vomited once last night 4. RECURRENT SYMPTOM: Denies 5. CAUSE: Not sure 6. : "Is there any chance you are ?" (e.g., unprotected intercourse, missed control pill, broken condom) Denies- has tubes removed Protocols used: [id number] documented in this encounter [facility] 10-03-2023 Note HNO ID: [id number] Author: CHASE BAZAN APRN.FINANCIAL SERVICES SPECIALIST Service: ? Author Type: Nurse Practitioner Type: Progress Notes Filed: 10/03/2023 10:12 Note Text: [facility] BEHAVIORAL MEDICINE PROGRESS NOTE PATIENT: Irvin Kline MRD: [id number] DATE: October 03, 2023 IDENTIFYING INFORMATION: Irvin [...] visit. Either the patient or their legal new accounts representative has been informed of the risks [...] and something for camping that we didn't need." She denies it was all at once. No other instances of impulsive behavior. She is not gambling or being promiscuous. She is not having difficulty at work. She spoke of a time of having a disagreement with her boss, but "I just let him keep talking. It wasn't worth an argument." She states she and her are getting [...] her mood is affected greatly with situations. "Buying things makes me happy." Those behaviors are "abrupt" but denies quick mood changes, irritability, behaviors, or being "short" with the kids or . No times of putting herself in harms way. She is getting work done, getting to work on time. She is getting along well with coworkers. Denies significant lows, no tearful times or becoming angry. She is completing self care and caring for her family. She admits she is approaching/calling her friend in [place] less frequently. Denies SI/HI/ and A/V H. [...] (09/08-06/10)Ineffective, Seroquel 100mg (05/09), Zoloft-becam ineffective overtime, Effexor-"bugs crawling on me." Latuda-"more manic," Hospitalizations: Never--not admitted. 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 [facility] 10-03-2023 History of Presen t illness Narrative Images from the original note were not included. [facility] BEHAVIORAL MEDICINE PROGRESS NOTE PATIENT: Irvin Kline MRD: [id number] DATE: October 03, 2023 IDENTIFYING INFORMATION: Irvin [...] visit. Either the patient or their legal new accounts representative has been informed of the risks and benefits of Medicine -- and alternatives to Mental health disorders-- treatment through a remote evaluation and consents to proceed with the evaluation remotely. CHIEF COMPLAINT: Patient presents with: Bipolar Disorder Anxiety ADD/ADHD INTERIM HISTORY: The patient was last seen 09/23/23 at which time vraylar was increased. She denies side effects, none suspected. Improved mood stability "until last week. I blew $100 on things we didn't need. I bought lunch even though I had packed a lunch. I bough new headphones and something for camping that we didn't need." She denies it was all at once. No other instances of impulsive behavior. She is not gambling or being promiscuous. She is not having difficulty at work. She spoke of a time of having a disagreement with her boss, but I just let him keep talking. It wasn't worth an argument." She states she and her are getting [...] her mood is affected greatly with situations. "Buying things makes me happy." Those behaviors are "abrupt" but denies quick mood changes, irritability, behaviors, or being "short" with the kids or . No times of putting herself in harms way. She is getting work done, getting to work on time. She is getting along well with coworkers. Denies significant lows, no tearful times or becoming angry. She is completing self care and caring for her family. She admits she is approaching/calling her friend in [place] less frequently. Denies SI/HI/ and A/V H. [...] (09/08-06/10)Ineffective, Seroquel 100mg (05/09), Zoloft-becam ineffective overtime, Effexor-"bugs crawling on me." Latuda-"more manic," Hospitalizations: Never--not admitted. 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 (Patient not [...] wheezing/shortness of breath. Blood-Glucose Meter,Continuous (DEXCOM G6 HAT CONE INSPECTOR) misc 1 Each once daily. Lancets lancets [...] intent or plan., Ruminations: about her perceived "manic episodes." Cognition: Orientation: Person, Place, Time and Situation [...] activity was identified. 10/03/2023 by Chase Bazan APRN.CNP PLAN: - Stop Celexa - Continue Lamictal [...] which included preparing to see the patient, [id number] patient care, completing clinical documentation, obtaining and/or [...] days (around 10/21/2023) for @2pm. Chase Bazan APRN.CNP documented in this encounter [facility] 09-25-2023 Telephone encounter Note Called and spoke with patient. Gave her the message below. Patient verbalized an understanding. Misty Martínez RN September 25, 2023 1:53 PM [facility] 09-25-2023 Miscellaneous Notes Called and spoke with [...] calling: self Call patient at: on cell [phone] (home) [phone] (cell) Was an appointment scheduled: No Closing statement: Symptom Call: Thank you for calling [facility], your call is very important. A nurse will call in approximately 2-4 hours during business hours. If this is an emergency, please contact 911. Segundo Coppola documented in this encounter [facility] 09-25-2023 Telephone encounter Note Please ask her to eat complex starches only, and small frequent meals. Any history of gastric surgery? Will need to see dietitian for nutrition advise. Thanks, Sabina Dueñas MD, MPH [facility] Work Phone: 09-25-2023 Telephone encounter Note Images [...] Martínez RN September 25, 2023 12:37 PM [facility] 09-25-2023 Telephone encounter Note Irvin is calling [...] calling: self Call patient at: on cell [phone] (home) [phone] (cell) Was an appointment scheduled: No Closing statement: Symptom Call: Thank you for calling [facility], your call is very important. A nurse will call in approximately 2-4 hours during business hours. If this is an emergency, please contact 911. Segundo Coppola [facility] 09-25-2023 Telephone encounter Note 90 day supply for insurance Pharmacy faxed requesting the following refill: Refill(s) Requested: Requested Prescriptions Pending Prescriptions Disp Refills traZODone (DESYREL) 50 mg tablet 90 tablet 1 Sig: Take 1 tablet by mouth daily at bedtime. ALLERGIES Allergen Reactions Rocephin [Ceftriaxo* Anaphylaxis per pt mother was 3yo (home) [phone] (cell) Last Office Visit Date: Visit date not found Last Distance Health Visit: Visit date not found Future Appointment: Visit date not found The patients preferred pharmacy has been captured for this encounter? yes Request is for script(s) to be escript to pharmacy. Specialty Problems Psych Problems Depressive disorder Josefina Buchanan September 25, 2023 10:34 AM T [facility] 09-25-2023 Miscellaneous Notes 90 day supply for insurance Pharmacy faxed requesting the following refill: Refill(s) Requested: Requested Prescriptions Pending Prescriptions Disp Refills traZODone (DESYREL) 50 mg tablet 90 tablet 1 Sig: Take 1 tablet by mouth daily at bedtime. ALLERGIES Allergen Reactions Rocephin [Ceftriaxo* Anaphylaxis per pt mother was 3yo (home) [phone] (cell) Last Office Visit Date: Visit date not found Last [facility] Visit: Visit date not found Future Appointment: Visit date not found The patients preferred pharmacy has been captured for this encounter? yes Request is for script(s) to be escript to pharmacy. Specialty Problems Psych Problems Depressive disorder Josefina Buchanan September 25, 2023 10:34 AM documented in this encounter [facility] 09-23-2023 Note HNO ID: [id number] Author: CHASE BAZAN APRN.FINANCIAL SERVICES SPECIALIST Service: ? Author Type: Nurse Practitioner Type: Progress Notes Filed: 09/23/2023 16:28 Note Text: [facility] BEHAVIORAL MEDICINE PROGRESS NOTE PATIENT: Irvin Kline MRD: [id number] DATE: September 23, 2023 IDENTIFYING INFORMATION: Irvin [...] visit. Either the patient or their legal new accounts representative has been informed of the risks [...] She is working on techniques to manage "episodes and is not as hard to do." She continues to have repetitive, negative thoughts but is using techniques to avoid falling into it." She is working with mindfulness and self soothing. I have trouble with self soothing." She is able to acknowledge she needs [...] emotional during a song on the radio. "I don't know where it is coming from." She does not feel sad every day, but admits to some down days. Denies SI/HI/ and A/V H. No concern of paranoia, delusions, or psychosis. The patient does not appear to be responding to internal or external stimuli. She is not lingering in those thoughts as she had. "I am working on positive self talk." She is trying to avoid the self loathing thoughts of worthlessness. She is not hopeless or helpless. "I can do this." She continues to have significant urges to spend money, less since stopping latuda. No side effects to vraylar. She is not feeling restless or having other impulsive or reckless behaviors. She states she is getting along well with others at work. Less ruminating about negativity. She notes a friend commented on her observation that "I have the old Irvni back." She is averaging 8 hours of consecutive [...] (09/08-06/10)Ineffective, Seroquel 100mg (05/09), Zoloft-becam ineffective overtime, Effexor-"bugs crawling on me." Latuda-"more manic," Hospitalizations: Never--not admitted. 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 Longest [...] watching television 0 (more content not included)... [facility] 09-23-2023 History of Presen t illness Narrative Images from the original note were not included. [facility] BEHAVIORAL MEDICINE PROGRESS NOTE PATIENT: Irvin Kline MRD: [id number] DATE: September 23, 2023 IDENTIFYING INFORMATION: Irvin [...] visit. Either the patient or their legal new accounts representative has been informed of the risks [...] She is working on techniques to manage "episodes and is not as hard to do." She continues to have repetitive, negative thoughts but is using techniques to avoid "falling into it." She is working with mindfulness and self soothing. "I have trouble with self soothing." She is able to acknowledge she needs [...] emotional during a song on the radio. "I don't know where it is coming from." She does not feel sad every day, but admits to some down days. Denies SI/HI/ and A/V H. No concern of paranoia, delusions, or psychosis. The patient does not appear to be responding to internal or external stimuli. She is not lingering in those thoughts as she had. "I am working on positive self talk." She is trying to avoid the self loathing thoughts of worthlessness. She is not hopeless or helpless. "I can do this." She continues to have significant urges to spend money, less since stopping latuda. No side effects to vraylar. She is not feeling restless or having other impulsive or reckless behaviors. She states she is getting along well with others at work. Less ruminating about negativity. She notes a friend commented on her observation that "I have the old Irvin back." She is averaging 8 hours of consecutive [...] (09/08-06/10)Ineffective, Seroquel 100mg (05/09), Zoloft-becam ineffective overtime, Effexor-"bugs crawling on me." Latuda-"more manic," Hospitalizations: Never--not admitted. 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 (Patient not [...] wheezing/shortness of breath. Blood-Glucose Meter,Continuous (DEXCOM G6 HAT CONE INSPECTOR) misc 1 Each once daily. Lancets lancets [...] intent or plan., Ruminations: about her perceived "manic episodes." Cognition: Orientation: Person, Place, Time and Situation [...] activity was identified. 09/23/2023 by Chase Bazan APRN.FINANCIAL SERVICES SPECIALIST PLAN: - Continue Celexa to 10mg daily--consider [...] which included preparing to see the patient, [id number] patient care, completing clinical documentation, obtaining and/or [...] Chase Bazan APRN.CNP documented in this encounter [facility] 09-12-2023 Telephone encounter Note Order for nebulizer and supplies signed and faxed back to [employer]. Shu Ryan [facility] 09-12-2023 Miscellaneous Notes Order for nebulizer and supplies signed and faxed back to [employer]. Shu Ryan documented in this encounter [facility] 09-11-2023 Telephone encounter Note Confirmation of Orders signed and faxed to [employer], 2 forms. Documents sent for scanning. Chad Gore [facility] 09-11-2023 Miscellaneous Notes Confirmation of Orders signed and faxed to [employer], 2 forms. Documents sent for scanning. Chad Gore documented in this encounter [facility] 09-10-2023 Telephone encounter Note Patient [employer] message requesting the following refill: Refill(s) Requested: Requested Prescriptions Pending Prescriptions Disp Refills traZODone (DESYREL) 50 mg tablet 30 tablet 1 Sig: Take 1 tablet by mouth daily at bedtime. ALLERGIES Allergen Reactions Rocephin [Ceftriaxo* Anaphylaxis per pt mother was 3yo (home) [phone] (cell) Last Office Visit Date: Visit date not found Last Distance Health Visit: Visit date not found Future Appointment: Visit date not found The patients preferred pharmacy has been captured for this encounter? yes Request is for script(s) to be escript to pharmacy. Specialty Problems Psych Problems Depressive disorder Josefina Buchanan September 10, 2023 9:05 AM [facility] 09-10-2023 Miscellaneous Notes Patient [employer] message requesting the following refill: Refill(s) Requested: Requested Prescriptions Pending Prescriptions Disp Refills traZODone (DESYREL) 50 mg tablet 30 tablet 1 Sig: Take 1 tablet by mouth daily at bedtime. ALLERGIES Allergen Reactions Rocephin [Ceftriaxo* Anaphylaxis per pt mother was 3yo (home) [phone] (cell) Last Office Visit Date: Visit date not found Last [facility] Visit: Visit date not found Future Appointment: Visit date not found The patients preferred pharmacy has been captured for this encounter? yes Request is for script(s) to be escript to pharmacy. Specialty Problems Psych Problems Depressive disorder Josefina Buchanan September 10, 2023 9:05 AM documented in this encounter [facility] 09-09-2023 Note HNO ID: [id number] Author: CHASE BAZAN APRN.FINANCIAL SERVICES SPECIALIST Service: ? Author Type: Nurse Practitioner Type: Progress Notes Filed: 09/09/2023 16:06 Note Text: [facility] BEHAVIORAL MEDICINE PROGRESS NOTE PATIENT: Irvin Kline MRD: [id number] DATE: September 09, 2023 IDENTIFYING INFORMATION: Irvin [...] visit. Either the patient or their legal new accounts representative has been informed of the risks [...] feeling worthless, poor motivation as well as "manic episodes" where she spends money and has poor self care. Responded to her with options of IOP and counseling that is closer to home as well as making a referral to F counseling. Her appointment was moved up. She presents today, in the car with children, not driving. She did follow through with getting scheduled for an intake at [facility] to begin IOP. Her feelings of worthlessness continue. She is worried about her mom having Pre-cancerous cells found with a recent colonoscopy. She also discovered her brother will be going to [facility] for PTSD treatment as well. She feels her family does not believe she is struggling as much as she is. She had the impulse of spending money impulsively when hearing of her mom's diagnosis. I almost spent the rent money. She called her friend Jac and he helped to curtail her impulse to spend money on fast food." No other impulses reported. No risk taking [...] personal problems. She did find work at [employer] in [place]. A job she used to have in [...] have outbursts d/t frustration with her kids. "I don't feel like the latuda is working." Reminded of its help with sleep, will [...] (09/08-06/10)Ineffective, Seroquel 100mg (05/09), Zoloft-becam ineffective overtime, Effexor-"bugs crawling on me." Hospitalizations: Never--not admitted. 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 [facility] 09-09-2023 History of Presen t illness Narrative Images from the original note were not included. [facility] BEHAV[facility]AL MEDICINE PROGRESS NOTE PATIENT: Irvin Kline MRD: [id number] DATE: September 09, 2023 IDENTIFYING INFORMATION: Irvin [...] visit. Either the patient or their legal new accounts representative has been informed of the risks [...] feeling worthless, poor motivation as well as "manic episodes" where she spends money and has poor [...] discovered her brother will be going to [facility] for PTSD treatment as well. She feels her family does not believe she is struggling as much as she is. She had the impulse of spending money impulsively when hearing of her mom's diagnosis. "I almost spent the rent money. She called her friend Bill and he helped to curtail her impulse to spend money on fast food." No other impulses reported. No risk taking [...] personal problems. She did find work at [employer] in [place]. A job she used to have [...] have outbursts d/t frustration with her kids. "I don't feel like the latuda is working." Reminded of its help with sleep, will [...] (09/08-06/10)Ineffective, Seroquel 100mg (05/09), Zoloft-becam ineffective overtime, Effexor-"bugs crawling on me." Hospitalizations: Never--not admitted. 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 (Patient not [...] wheezing/shortness of breath. Blood-Glucose Meter,Continuous (DEXCOM G6 HAT CONE INSPECTOR) misc 1 Each once daily. Lancets lancets [...] intent or plan., Ruminations: about her perceived "manic episodes." Cognition: Orientation: Person, Place, Time and Situation [...] activity was identified. 09/09/2023 by Chase Bazan APRN.FINANCIAL SERVICES SPECIALIST PLAN: - Continue Celexa to 10mg daily [...] which included preparing to see the patient, [id number] patient care, completing clinical documentation, obtaining and/or [...] about 2 weeks (around 09/23/2023). Chase Bazan APRN.FINANCIAL SERVICES SPECIALIST documented in this encounter [facility] 09-08-2023 Telephone encounter Note Faxed a nebulizer set order to [facility] 09-08-2023 Miscellaneous Notes Faxed a nebulizer set order to [facility] documented in this encounter [facility] 09-08-2023 Telephone encounter Note Irvin called about the IOP. She was referred by her psychiatric FINANCIAL SERVICES SPECIALIST. She needs an evening IOP as she just started a job. She was given info for the [facility]. [facility] Work Phone: 09-08-2023 Miscellaneous Notes Irvin called about the IOP. She was referred by her psychiatric FINANCIAL SERVICES SPECIALIST. She needs an evening IOP as she just started a job. She was given info for the [facility]. documented in this encounter [facility] 09-08-2023 Telephone encounter Note Scheduled [facility] 09-08-2023 Miscellaneous Notes Scheduled documented in this encounter [facility] 09-08-2023 Telephone encounter Note Schedule patient with a counselor. Offer to move up appointment if available or put on cancel list. [facility] 09-08-2023 Miscellaneous Notes Schedule patient with a counselor. Offer to move up appointment if available or put on cancel list. Referral for counseling made. Also sent other resources to patient through [employer], including IOP. Patient also called and left a voicemail stating she is feeling worthless and not doing well. Josefina Buchanan documented in this encounter [facility] 09-08-2023 Telephone encounter Note Referral for counseling made. Also sent other resources to patient through [employer], including IOP. [facility] 09-08-2023 Telephone encounter Note Patient also called and left a voicemail stating she is feeling worthless and not doing well. Josefina Buchanan [facility] 09-05-2023 Telephone encounter Note Patient called in regarding this message. States that she needs to get the boots this weekend and was hoping for recommendations. [facility] 09-05-2023 Miscellaneous Notes Patient called in regarding this message. States that she needs to get the boots this weekend and was hoping for recommendations. documented in this encounter [facility] 08-26-2023 Instructions Mari Mancera PA-C - 08/26/2023 [...] Mari Mancera PA-C documented in this encounter [facility] 08-26-2023 History of Presen t illness Narrative [...] (FLONASE) 50 mcg/actuation nasal spray Use 1 Calvert in each nostril once daily. (Patient not [...] day with meals. Blood-Glucose Meter,Continuous (DEXCOM G6 HAT CONE INSPECTOR) misc 1 Each once daily. Lancets lancets [...] 77 Resp 16 Ht 162.6 cm (5' 4") Wt 113.6 kg (250 lb 8.8 oz) [...] which included preparing to see the patient, [id number] patient care, completing clinical documentation, performing a medically appropriate examination, counseling and educating the patient/family/caregiver, and ordering medications, tests, or procedures. documented in this encounter [facility] 08-25-2023 Telephone encounter Note According to chart, the patient also reached out to their PULM DR for the same concern today, and they are already assisting with the Allergy consult. [facility] 08-25-2023 Miscellaneous Notes According to chart, the patient also reached out to their PULM DR for the same concern today, and they are already assisting with the Allergy consult. documented in this encounter [facility] 08-25-2023 Telephone encounter Note Please see MyChart message below Thank you. Hanna Blake RN [facility] 08-25-2023 Miscellaneous Notes Please see MyChart message below Thank you. Hanna Blake RN documented in this encounter [facility] 08-19-2023 Instructions Chase Bazan APRN.CNP - 08/19/2023 9:23 AM EDT - Decrease Celexa to 10mg daily - Continue Lamictal 100mg qhs - Increase Latuda to 80 mg at bedtime-taking with food - Continue Trazodone 50mg qhs - Continue Buspar 10mg tid documented in this encounter [facility] 08-19-2023 History of Presen t illness Narrative Images from the original note were not included. [facility] BEHAV[facility]AL MEDICINE PROGRESS NOTE PATIENT: Irvin Kline MRD: [id number] DATE: August 19, 2023 IDENTIFYING INFORMATION: Irvin [...] visit. Either the patient or their legal new accounts representative has been informed of the risks [...] helped. She repodrts ongoing issues at work. Penology Teacher and HR "tag teamed me and I walked out." She states she reported the new vessel manager to again and found that the vessel manager had been reporting that Irvin was bullying her. She states she called her friend Bill to help get her calmed down as well as later that that evening. 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 "I know someone there, another dad-figure who says it is better.' She admits to having irritability yesterday, but was able to find some "me time" and her took care of the kids. She is getting enjoyment with activities. She is getting along well with her . No arguments. She states the stress is making her vape more continuously. She states she is trying to stop. She denies other times of impulsivity. She does not feel leaving her job abruptly as impulsive. "It was coming. 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 (Patient not [...] wheezing/shortness of breath. Blood-Glucose Meter,Continuous (DEXCOM G6 HAT CONE INSPECTOR) misc 1 Each once daily. Lancets lancets [...] activity was identified. 08/19/2023 by Chase Bazan APRN.FINANCIAL SERVICES SPECIALIST PLAN: - Decrease Celexa to 10mg daily [...] which included preparing to see the patient, [id number]-[id number] patient care, completing clinical documentation, obtaining and/or [...] Chase Bazan APRN.CNP documented in this encounter [facility] 08-19-2023 Note HNO ID: [id number] Author: CHASE BAZAN APRN.CNP Service: ? Author Type: Nurse Practitioner Type: Progress Notes Filed: 08/19/2023 09:25 Note Text: [facility] BEHAV[facility]AL MEDICINE PROGRESS NOTE PATIENT: Irvin Kline MRD: [id number] DATE: August 19, 2023 IDENTIFYING INFORMATION: Irvin [...] visit. Either the patient or their legal new accounts representative has been informed of the risks [...] helped. She repodrts ongoing issues at work. Penology Teacher and HR "tag teamed me and I walked out." She states she reported the new vessel manager to again and found that the vessel manager had been reporting that Irvin was bullying her. She states she called her friend Jac to help get her calmed down as well as later that that evening. 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 "I know someone there, another dad-figure who says it is better.' She admits to having irritability yesterday, but was able to find some "me time" and her took care of the kids. She is getting enjoyment with activities. She is getting along well with her . No arguments. She states the stress is making her vape more continuously. She states she is trying to stop. She denies other times of impulsivity. She does not feel leaving her job abruptly as impulsive. "It was coming. 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 [facility] 08-13-2023 Telephone encounter Note 90 day [...] Anaphylaxis per pt mother was 3yo (home) [phone] (cell) Last Office Visit Date: Visit date not found Last [facility] Visit: Visit date not found Future Appointment: Visit date not found The patients preferred pharmacy has been captured for this encounter? yes Request is for script(s) to be escript to pharmacy. Specialty Problems Psych Problems Depressive disorder Josefina Buchanan August 13, 2023 11:32 AM [facility] 08-13-2023 Miscellaneous Notes 90 day script request [...] Anaphylaxis per pt mother was 3yo (home) [phone] (cell) Last Office Visit Date: Visit date not found Last [facility] Visit: Visit date not found Future Appointment: Visit date not found The patients preferred pharmacy has been captured for this encounter? yes Request is for script(s) to be escript to pharmacy. Specialty Problems Psych Problems Depressive disorder Josefina Buchanan August 13, 2023 11:32 AM documented in this encounter [facility] 08-07-2023 Note Addended by: JAMEY GARDNER on: 08/07/2023 06:21 PM Modules accepted: Orders [facility] 08-07-2023 Miscellaneous Notes Addended by: JAMEY GARDNER on: 08/07/2023 06:21 PM Modules accepted: Orders documented in this encounter [facility] 08-07-2023 History of Presen t illness Narrative [...] of Care: created on 03/17/23 through 06/09/23 [place] in home exercise program. - Met so [...] Patient to be seen for Therapeutic exercise (81453), Neuromuscular re-education (48288), Manual therapy (21660), Therapeutic activities (94180), Self-alf management (72421), Gait Training (82894), Patient/Family/Caregiver Education PLAN FOR NEXT VISIT: Ankle strengthening as tolerated. Keep pain under control. SUBJECTIVE: New vessel manager that does not allow the pt [...] Jamey Gardner PT documented in this encounter [facility] 08-07-2023 Telephone encounter Note Returned patient call. She reports having a new vessel manager who has been working there intermittently. She started on Friday, by Friday she felt the stress of their relationship. She feels discriminated against her because of medical conditions. Need to take 2 15minutes breaks and a 30 minute break--needed for her diabetes care. She did go to HR and report the problems. She is to return to work tomorrow. She reports she is having more anxiety/panic. She is crying uncontrollably. "I just can't do it." She has been vaping more regularly, she has been out walking in nature. She states she has been sleeping well. One friend gave me a hit of pot. And it helped. It relaxed me enough that I could function. The situation is now overpowering to the point I cannot work. HR sent me home today." Start buspar 10mg up to three times a day. Discussed risk/benefit and potential side effects. Reminded of the cautions of sharing medications. [facility] 08-07-2023 Miscellaneous Notes Returned patient call. She reports having a new vessel manager who has been working there intermittently. She started on Friday, by Friday she felt the stress of their relationship. She feels discriminated against her because of medical conditions. Need to take 2 15minutes breaks and a 30 minute break--needed for her diabetes care. She did go to HR and report the problems. She is to return to work tomorrow. She reports she is having more anxiety/panic. She is crying uncontrollably. "I just can't do it." She has been vaping more regularly, she has been out walking in nature. She states she has been sleeping well. One friend gave me a hit of pot. And it helped. It relaxed me enough that I could function. The situation is now overpowering to the point I cannot work. HR sent me home today." Start buspar 10mg up to three times a day. Discussed risk/benefit and potential side effects. Reminded of the cautions of sharing medications. documented in this encounter [facility] 08-07-2023 Telephone encounter Note IRENE: 04/29/2023 NOV: 09/03/2023 Patient is requesting a letter stating that because of her medication Metformin she needs to use the bathroom more frequently. Please advise. Kimberly Nixon MA [facility] 08-07-2023 Miscellaneous Notes IRENE: 04/29/2023 NOV: 09/03/2023 Patient is requesting a letter stating that because of her medication Metformin she needs to use the bathroom more frequently. Please advise. Kimberly Nixon MA documented in this encounter [facility] 08-07-2023 Telephone encounter Note Patient left voicemail stating she needs to urgently speak with you regarding some issues Josefina Buchanan [facility] 08-07-2023 Miscellaneous Notes Patient left voicemail stating she needs to urgently speak with you regarding some issues Josefina Buchanan documented in this encounter [facility] 08-06-2023 History of Presen t illness Narrative Images from the original note were not included. This note was created using [employer]. Subjective Irvin Kline is a 33 year [...] history is provided by the patient. No language arts teacher was used. Review of Systems Constitutional: Negative [...] (97.9 F) (Temporal) Ht 162.6 cm (5' 4") Wt 113.9 kg (251 lb 1.7 oz) [...] (FLONASE) 50 mcg/actuation nasal spray Use 1 Calvert in each nostril once daily. fluconazole (DIFLUCAN) [...] wheezing/shortness of breath. Blood-Glucose Meter,Continuous (DEXCOM G6 HAT CONE INSPECTOR) misc 1 Each once daily. Lancets lancets [...] sooner if new or worsening symptoms. Krystle Kent APRN.CNP documented in this encounter [facility] 07-21-2023 Telephone encounter Note 07/21/23-Return call made. She states initially had good sleep, but has diminished. She has been getting some sleep the other nights. She reports "a pretty bad explosion" with her daughter yesterday. She angrily left the room to avoid further verbal outburst. Reminded it could take a few weeks to note significant improvement in mood and behavior. Understands to monitor for consistently worsening mood and sleep patterns. Also reminded to seek ER services as needed. She verbalized understanding. Patient given ample time for questions. [facility] 07-21-2023 Miscellaneous Notes 07/21/23-Return call made. She states initially had good sleep, but has diminished. She has been getting some sleep the other nights. She reports "a pretty bad explosion" with her daughter yesterday. She angrily left [...] call Josefina Buchanan documented in this encounter [facility] 07-21-2023 Telephone encounter Note Patient called and wanted to know if she should be continuing her Adderall. If yes, she needs a refill. She also would like to discuss the Latuda with you, please call Josefina Buchanan [facility] 07-18-2023 Instructions Chase Bazan APRN.SHEN - 07/18/2023 10:56 AM EDT - Decrease Celexa to 20mg daily - Increase lamictal to 100mg daily - Start Latuda 60mg daily - Hold Adderall XR documented in this encounter [facility] 07-18-2023 History of Presen t illness Narrative Images from the original note were not included. [facility] BEHAVIORAL MEDICINE INITIAL PSYCHIATRIC EVALUATION PATIENT: Irvin Kline MRD: [id number] DATE: July 18, 2023 IDENTIFYING INFORMATION: Irvin [...] visit. Either the patient or their legal new accounts representative has been informed of the risks [...] relation to worry. She enjoys feeling more "umph" with the stimulant. Discussed the concern of it also increasing anxiety and "hyper focus" which causes her to feel irritable. She admits to verbal outbursts with her kids. Some reactions are greater than called for. She often feels bad for her behaviors. None are destructive to physical property or persons. She enjoys her job because it is busy, not a lot of sitting. 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 She has been there for 5 months. Longest job was while she was while in training at the [employer] in . Otherwise, she does not believe she has been at any job longer than a year. She states she becomes overwhelmed and anxious and "I just cannot stay." She works, but has few other activities. Her anxiety keeps her from taking her kids to a park to play. 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 She does have days of poor energy [...] depression, feels sad when she tries to "be good and not spend money." She admits she was spending money eating [...] promiscuity. Hx of abrupt job changes. No shelter friendships d/t being quick to write them [...] (09/08-06/10)Ineffective, Seroquel 100mg (05/09), Zoloft-becam ineffective overtime, Effexor-"bugs crawling on me." Psychiatrist: Never Agency: Denies gift manager: Denies Therapist: None Self harm: Denies [...] Guardian: None Born and raised: Born in [place], parents stayed . She has a younger brother. Gets along well. Childhood: Good childhood. She states school was difficult, she was bullied. Grades were C-D range. In 11th grade to [employer]-grades were better. She lost her Grandfather when she was 2 and it greatly affects her. Abuse: Denies. 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 Financial support: She and Relationships: x1, 2016 Children: She has 3 yo boy , 7yo girl Living Situation: and kids Weapons: Denies Legal History: Denies Sabianist: Nothing that would interfere with care. Somatic [...] (FLONASE) 50 mcg/actuation nasal spray Use 1 Calvert in each nostril once daily. lamoTRIgine (LAMICTAL) [...] wheezing/shortness of breath. Blood-Glucose Meter,Continuous (DEXCOM G6 HAT CONE INSPECTOR) misc 1 Each once daily. Lancets lancets [...] activity was identified. 07/18/2023 by Chase Bazan APRN.CNP PLAN: - Decrease Celexa to 20mg daily [...] which included preparing to see the patient, vyeb-ij-iloa patient care, completing clinical documentation, obtaining and/or [...] about 4 weeks (around 08/15/2023) for 4pm virtual. Chase Bazan APRN.FINANCIAL SERVICES SPECIALIST documented in this encounter [facility] 07-16-2023 Telephone encounter Note IRENE 05/21/23; nxt OV 08/26/23 Patient phones requesting refills as follows: Requested Prescriptions Pending Prescriptions Disp Refills montelukast (SINGULAIR) 10 mg tablet [Pharmacy Med Name: MONTELUKAST SOD 10 MG TABLET] 90 tablet 0 Sig: take 1 tablet by mouth every day Please review and advise. Jessica Michel LPN [facility] 07-16-2023 Miscellaneous Notes IRENE 05/21/23; nxt OV 08/26/23 Patient phones requesting refills as follows: Requested Prescriptions Pending Prescriptions Disp Refills montelukast (SINGULAIR) 10 mg tablet [Pharmacy Med Name: MONTELUKAST SOD 10 MG TABLET] 90 tablet 0 Sig: take 1 tablet by mouth every day Please review and advise. Jessica Michel LPN documented in this encounter [facility] 07-16-2023 Telephone encounter Note Pa for Nucala submitted to [facility] for review. [facility] 07-16-2023 Miscellaneous Notes Pa for Nucala submitted to [facility] for review. documented in this encounter [facility] 07-16-2023 Telephone encounter Note Requester: Pharmacy Patients last Endocrinology visit occurred 04/29/2023. Follow-up evaluation has been established Upcoming Endocrinology Appointments - Next 365 Days Visit Type Date Time Department [place] [facility] 09/03/2023 12:00 PM ENDO [facility] [place]ONG PATIENT 11/06/2023 8:25 AM ENDO [facility] Requested Prescriptions Pending Prescriptions Disp Refills blood sugar diagnostic (BLOOD GLUCOSE TEST) test strip 100 Each 0 Sig: Use as instructed If patient is due for an appointment please route to provider for refill consideration and also to the endo scheduling pool. PSS NOTE: Patient needs scheduled appointment No SERGE Garcia [facility] 07-16-2023 Miscellaneous Notes Requester: Pharmacy Patients last Endocrinology visit occurred 04/29/2023. Follow-up evaluation has been established Upcoming Endocrinology Appointments - Next 365 Days Visit Type Date Time Department [place] [facility] 09/03/2023 12:00 PM ENDO [facility] [place] PATIENT 11/06/2023 8:25 AM ENDO [facility] Requested Prescriptions Pending Prescriptions Disp Refills [...] 2023 4:42 PM documented in this encounter [facility] 07-15-2023 Telephone encounter Note Prescription Refill Information [...] Jaime PAC July 15, 2023 4:42 PM [facility] 06-30-2023 Telephone encounter Note IRENE: 04/29/2023 NOV: 09/03/2023 Patient is asking for a letter to state she needs 2 15 minute breaks a day to eat snacks. Please advise. Kimberly Nixon MA [facility] 06-30-2023 Miscellaneous Notes IRENE: 04/29/2023 NOV: 09/03/2023 Patient is asking for a letter to state she needs 2 15 minute breaks a day to eat snacks. Please advise. Kimberly Nixon MA documented in this encounter [facility] 06-26-2023 Telephone encounter Note Paged by patient [...] to go to ER for further care. [facility] Work Phone: 06-26-2023 Miscellaneous Notes Paged by [...] for further care. documented in this encounter [facility] 06-20-2023 Telephone encounter Note Images from the original note were not included. Arlene Pittman [facility] Podiatry Pool 7 minutes ago (1:25 PM) Can you please write letter reporting patient is instructed to work no more than 5 days per week and 8 hours/ day Arlene Pittman DPM [facility] 06-20-2023 Miscellaneous Notes Images from the original note were not included. Arlene Pittman Podiatry Pool 7 minutes ago (1:25 PM) Can you please write letter reporting patient is instructed to work no more than 5 days per week and 8 hours/ day Arlene Pittman DPM documented in this encounter [facility] 06-18-2023 Telephone encounter Note Being handled in another encounter. Thank you, SERGE Garcia [facility] 06-18-2023 Miscellaneous Notes Being handled in another encounter. Thank you, SERGE Garcia Irvin is calling Dylan Topete MD today to request Letter for Work stating she can not work 10-12 hours per day, 7 days a week Patient has been identified by name and birthdate. Duration of symptoms: N/A Person calling: self Call patient at: at home [phone] (home) [phone] (cell) Was an appointment scheduled: No Closing statement: Symptom Call: Thank you for calling [facility], your call is very important. A nurse will call in approximately 2-4 hours during business hours. If this is an emergency, please contact 911. Melanie Coppola documented in this encounter [facility] 06-17-2023 Telephone encounter Note Irvin is calling Dylan Topete MD today to request Letter for Work stating she can not work 10-12 hours per day, 7 days a week Patient has been identified by name and birthdate. Duration of symptoms: N/A Person calling: self Call patient at: at home [phone] (home) [phone] (cell) Was an appointment scheduled: No Closing statement: Symptom Call: Thank you for calling [facility], your call is very important. A nurse will call in approximately 2-4 hours during business hours. If this is an emergency, please contact 911. Melanie Coppola [facility] 06-05-2023 History of Presen t illness Narrative Called pt Not sure why endo took off inhaled ICS, needs 3 days pred Resume ics Acth ok per pt documented in this encounter [facility] 06-04-2023 Telephone encounter Note Request was received [...] they will be provided with resources within [facility] [place]. -If the patient is a candidate to be scheduled, their initial appointment will be an in-person evaluation that will determine course of treatment, which may include individual visits, group visits, or a recommendation to seek care outside of [facility]. There is no guarantee that medications will be prescribed at this visit. [facility] 06-04-2023 Miscellaneous Notes Request was received by [...] they will be provided with resources within [facility] [employer] [facility] [place]. -If the patient is a candidate to be scheduled, their initial appointment will be an in-person evaluation that will determine course of treatment, which may include individual visits, group visits, or a recommendation to seek care outside of [facility]. There is no guarantee that medications will be prescribed at this visit. documented in this encounter [facility] 05-28-2023 Miscellaneous Notes We re pleased to let you know that we ve approved your or your doctor s request for coverage for Amphetamine-Dextroamphet ER 15MG OR CP24. You can now fill your prescription, and it will be covered according to your plan. documented in this encounter [facility] 05-28-2023 Miscellaneous Notes Message send via [email or web address] for patient. Misty Martínez RN May 28, [...] sugars up. They are plummeting. Please call. [phone] Images from the original note were not included. IRENE- NOV- Patient states her blood sugars have been increasing even when she does not eat. Please review and advise. Thank you, SERGE Garcia documented in this encounter [facility] 05-23-2023 History of Presen t illness Narrative Express Care Note CC. " I have been having black stools for months and I have been exposed to influenza a and I have been coughing a lot" HPI this is a normally healthy 33-year-old [...] slip. This note has been written utilizing [employer]. Although it has been reviewed for any errors. Iglesia Stevenson PA-C documented in this encounter [facility] 05-22-2023 Miscellaneous Notes Patient contacted I called in the antibiotics and the cough syrup, should help with her sx, can do otc claritin or zyrtec for the congestion Seen yesterday by Dr Figueredo wanting something called in for congestion and eye swelling documented in this encounter [facility] 05-21-2023 History of Presen t illness Narrative [...] day with meals. Blood-Glucose Meter,Continuous (DEXCOM G6 HAT CONE INSPECTOR) misc 1 Each once daily. montelukast (SINGULAIR) [...] Donald Snowden DO documented in this encounter [facility] 05-20-2023 History of Presen t illness Narrative This note was created using Gumiyoriter. Subjective Irvin Kline is a 33 year old female. Patient presents with: Breathing Problem Here c/o chest tightness that started 5 days ago Feels tight and some sob but no wheezing States her nebulizer helps some History of asthma Has proair she needs to tile picker from the pharmacy No other sick symptoms No fever/chills The history is provided by the patient. No language arts teacher was used. Review of Systems Constitutional: Negative [...] C (98.2 F) Ht 162.6 cm (5' 4") Wt 125.7 kg (277 lb 1.9 oz) [...] day with meals. Blood-Glucose Meter,Continuous (DEXCOM G6 HAT CONE INSPECTOR) misc 1 Each once daily. montelukast (SINGULAIR) [...] - ICD9: 493.90, ICD10: J45.20 - will tile picker proair today - Avoidance of triggers recommended Follow up with Dr. Snowden tomorrow, as needed or sooner if new or worsening symptoms. Krystle Kent APRN.CNP documented in this encounter [facility] 05-19-2023 History of Presen t illness Narrative [...] 5.1 4.3 - 5.6 % Final Comment: [place] [employer] guidelines indicate that patients with [...] day with meals. Blood-Glucose Meter,Continuous (DEXCOM G6 HAT CONE INSPECTOR) misc 1 Each once daily. montelukast (SINGULAIR) [...] Follow Up, Pain documented in this encounter [facility] 05-12-2023 Miscellaneous Notes Pharmacy comment: Product Backordered/Unavailable:JAIL BACKORDER. Please order alternative documented in this encounter [facility] 05-08-2023 History of Presen t illness Narrative Program_ID:[id number] Access Code: [email or web address] URL: [email or web address] Date: 05-08-2023 Prepared By: Nuria Tobin Program [...] of Care: created on 03/17/23 through 06/09/23 [place] in home exercise program. - Met so [...] Patient to be seen for Therapeutic exercise (78710), Neuromuscular re-education (51873), Manual therapy (17297), Therapeutic activities (10761), Self-alf management (46215), Gait Training (96295), Patient/Family/Caregiver Education PLAN FOR NEXT VISIT: Ankle [...] do the exercises since the beginning of feb.. Patient Goals: Decrease pain Functional Limitations: rising from a chair, walking Prior Level of Function: Independent without limitations Intake Information: Prescription present Previous Treatment: Immobilizer/brace , Surgery Pain: Pain Pain Level: 0 ("But I have not worked since yesterday at 2:30 pm") Pain Location: Ankle - Right Post Treatment [...] Time (minutes): 28 Session Start Time : 08 Session Stop Time : 09 Pt arrived 7 min late to this appointment Jamey Gardner PT documented in this encounter [facility] 04-30-2023 Miscellaneous Notes IRENE: 04/29/2023 Patient states she gets a headache if she doesn't drink 2 cans of soda a day. Does she need to cut this completely? Please advise. Kimberly Nixon MA documented in this encounter [facility] 04-29-[address] returned pt phone call however, no answer. RD left voicemail for pt to return call. Mera Varela RD April 29, 2023 4:10 PM documented in this encounter [facility] 04-29-2023 Instructions Dylan Topete MD - 04/29/2023 [...] or soonest thereafter - with Jennifer Linares APRN.FINANCIAL SERVICES SPECIALIST Follow up in 6 months with nv documented in this encounter [facility] 04-29-2023 History of Presen t illness Narrative [...] wheezing/shortness of breath. Blood-Glucose Meter,Continuous (DEXCOM G6 HAT CONE INSPECTOR) misc 1 Each once daily. Blood-Glucose Sensor [...] or soonest thereafter - with Jennifer Linares APRN.FINANCIAL SERVICES SPECIALIST Follow up in 6 months with me I spent a total of 40 minutes on the date of the service which included preparing to see the patient, [id number] patient care, completing clinical documentation, obtaining and/or reviewing separately obtained history, counseling and educating the patient/family/caregiver, ordering medications, tests, or procedures, independently interpreting results (not separately reported), and communicating results to the patient/family/caregiver. Dylan Topete MD Endocrinology, Diabetes, & Metabolism April 29, 2023 3:28 PM documented in this encounter [facility] 04-29-2023 Procedure note Images from the original note were not included. 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 It required patient-provider interaction for the medical decision making as documented below. I have communicated my name and active licensure. The patient's identity and physical location were verified at the time of this visit. Either the patient or their legal new accounts representative has been informed of the risks and benefits of -- and alternatives to -- treatment through a remote evaluation and consents to proceed with the evaluation remotely. Irvin Kline is a 33 year old female seen for severe asthma. Patient states she is about 70% better since starting Nucala. 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 She is highly allergic to cats [...] wheezing/shortness of breath. Blood-Glucose Meter,Continuous (DEXCOM G6 HAT CONE INSPECTOR) misc 1 Each once daily. Blood-Glucose Sensor [...] house Some obesity documented in this encounter [facility] 04-24-2023 Miscellaneous Notes sent Patient stated Krystle Kent did not send the Dexcom transmitter rx when she sent the casino assistant manager and sensors. Please note: she'd like the transmitter sent to [facility] in [place] (not [place]). She will be working in [place] today. She wants to know if it can be sent before 11 am. documented in this encounter [facility] 04-18-2023 Miscellaneous Notes Called and informed pt. I sent in script for reader too, I apologize I thought that was a kit for everything. Patient called to request this script for the sensors too. She'd like a call at [phone] when rx has been sent. documented in this encounter [facility] 04-17-[address] returned call from patient. Pt had a couple follow up nutrition questions from visit on 04/15/23. RD answered all questions at this time. Encouraged pt to contact RD with any additional questions or concerns in the future. Mera Varela M.S., GA, RICHARD April 17, 2023 8:43 AM documented in this encounter [facility] 04-16-2023 Miscellaneous Notes PATIENT INFORMATION Record ID: [id number] Patient Name: [facility]: [place]: [facility] Attending: Owen Feliz Jr Center: Hospital Medicine INSTRUCTIONS MA to remind patient of next upcoming appointment date, time, location All Clear All Clear SURVEY INFORMATION Medical/Nurse Stock Broker Supervisor: Kenny Osuna 1. Your discharge instructions are [...] (Standard Question) No documented in this encounter [facility] 04-15-2023 History of Presen t illness Narrative 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 Patient is scheduled with Dr. Rivera on 05/14/2023 @ 10:[address] Carrera on 06/04/2023 @ 8:00 AM per appt desk. documented in this encounter [facility] 04-11-2023 Hospital Discharg e instructions Patient Education [...] occur: Drowsiness Weakness Confusion Loss of consciousness 4860-[address] [place] [address]. All rights reserved. This information is not intended as a substitute for professional medical care. Always follow your healthcare professional's instructions. Follow Up Care 04/11/2023 10:08:12 With:DONALD SNOWDEN DO Address: [address] [place] [id number]- When:2-4 days [facility] 04-11-2023 Miscellaneous Notes Please see previous encounters. Handled by Internal Medicine. Will recommend patient make an appt with Endocrinology for further evaluation. BRENDA Pro, RN [facility] documented in this encounter [facility] 04-11-2023 Note Discharge Instructions Thank you for allowing [facility] to assist you with your healthcare needs. [...] Within 2-4 days Where: [place] [address]- Allergies Rocephin Medications Please ask your primary [...] occur: Drowsiness Weakness Confusion Loss of consciousness 8847-[address] [employer] [place] [address]. All rights reserved. This information is not intended as a substitute for professional medical care. Always follow your healthcare professional's instructions. Additional Information VACCINATE! IT SAVES LIVES! Members of the community who have not yet received the COVID-19 vaccine and would like to receive it can visit one of [facility] vaccine clinics. There are many vaccine clinic locations within the [facility]. For locations and available times, please visit [email or web address] It is important to note that some COVID mobile vaccine clinics are held outdoors and may be canceled in rainy or stormy conditions. To learn more about pediatric vaccinations (ages 5-11), we invite you to visit the [facility] webpage. [email or web address] To learn more about the COVID-19 vaccine, we invite you to visit the CDC website for a list of frequently asked questions. https://www.cdc.gov/coronavirus/ 2019-ncov/vaccines/faq.html [facility] Patient Portal Access Instructions: Stay connected with your healthcare team and access your personal medical information anytime with the [facility] Patient Portal. If you would like a full copy of your medical records please contact the [facility] Medical Records Department Friday through Friday between 8a.m. and 4:30p.m. Please follow the directions below to access the portal: 1.Access the email account you provided upon registration to the hospital.2.Look for an invitation email from [facility].3.Open the email and access the invitation link: Accept Invitation to [facility]4.Fill in the required dangelo to create your account. Sign into [email or web address] with your username and password that you [...] you will allow to register on the [facility] Patient Portal for access to your information. You can also access the [facility] Patient Portal on the DropShip saturnino. Simply click on "Health Records" under "Health Data" and then click on the [facility] logo. HOW TO SAFELY DISPOSE OF PRESCRIPTION [...] Call your local pharmacy or go to [email or web address] to find one close to you.3.Make use of household items: Use cat litter or old coffee grounds to dispose medications if other options are not available. Mix your drugs with these household products, seal them in an airtight container and throw it into the garbage. Call [facility]: [phone] to be sure your drugs can be [...] been reviewed and explained to me and I,IRVIN KLINE understand my current condition and have read and understand these discharge instructions. I have received a written copy of the plan/instructions. If I have questions, I am aware that I should contact my doctor. 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 She was not feeling well and on her way to ED by EMS. Attempted to reach patient again. Please forward call to [phone] when she calls back. Patient returned phone [...] candy with her. documented in this encounter [facility] 04-11-2023 Miscellaneous Notes Spoke with patient. She [...] familiar with patient. documented in this encounter [facility] 04-11-2023 Miscellaneous Notes Addressed in another encounter Pt calling in stating pharmacy has the blood glucose monitor but pharmacy did not receive RX for the test strips & lancets for the one STAR FESTIVAL system. Pt asking if these can be called in clara to [facility] in [place]. Please review/advise. documented in this encounter [facility] 04-10-2023 Instructions Krystle Kent APRN.SHEN - 04/10/2023 4:33 PM EST Start taking vitamin D and iron supplements Eat small frequent meals through out the day Drink more water and cut out soda documented in this encounter [facility] 04-10-2023 History of Presen t illness Narrative This note was created using Gumiyoriter. Subjective Irvin Kline is a 33 year [...] cycle, which is heavy now too. 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 Last year was prescribed iron and vitamin D supplements but has not taken them. Denies cp, heart palp, syncope No headaches or vision changes States she drinks no water and only diet coke. States "I am addicted" Is cooking more at home and trying not to eat a lot of carbs. Eats 3 meals per day The history is provided by the patient. No language arts teacher was used. Review of Systems Constitutional: Positive [...] sooner if new or worsening symptoms. Krystle Kent APRN.SHEN documented in this encounter [facility] 04-10-2023 Miscellaneous Notes Patient advised to eat [...] No Protocols used: Diabetes - Low Blood [id number] documented in this encounter [facility] 2023 Miscellaneous Notes Patient phones requesting refills as follows: Requested Prescriptions Pending Prescriptions Disp Refills lamoTRIgine (LAMICTAL) 25 mg tablet [Pharmacy Med Name: LAMOTRIGINE 25 MG TABLET] 90 tablet 0 Sig: take 1 tablet by mouth everyday at bedtime Please review and advise. Mari Argueta Ma documented in this encounter [facility] 04-01-2023 History of Presen t illness Narrative Program_ID:[id number] Access Code: [email or web address] URL: [email or web address] Date: 04-01-2023 Prepared By: Nuria Tobin Program [...] Puckett PT, DPT documented in this encounter [facility] 03-28-2023 History of Presen t illness Narrative [...] Puckett PT, DPT documented in this encounter [facility] 03-20-2023 History of Presen t illness Narrative [...] Time : 1500 Session Stop Time : 154 Jamey Gardner PT documented in this encounter [facility] 01-03-2023 History of Presen t illness Narrative [...] - ICD9: 695.9, ICD10: L53.9 Yuriy Lagos APRN.FINANCIAL SERVICES SPECIALIST documented in this encounter [facility] 12-26-2022 Miscellaneous Notes PT is unable to obtain next dose of nucala, pt is in the middle of an insurance switch will reauth once patient has 1 insurance. She will notify us documented in this encounter [facility] 12-17-2022 Instructions Robson Zuniga MD - 12/17/2022 10:41 AM EDT Trial of NUCALA, need new insurance approval [facility] Prednisone burst Vaccines Discussed labs CATS ARE A TRIGGER documented in this encounter [facility] 12-17-2022 History of Presen t illness Narrative [...] F) Resp 18 Ht 162.6 cm (5' 4") Wt 123.4 kg (272 lb) LMP 11/21/2022 [...] Collected: 09/26/2022 12:32 PM (Final result) Narrative: [facility] 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 SPIROMETRY WITH DILATOR IF OBSTRUCTED ([id number]) - ordered on 09/26/22 No textual results [...] 17, 2022 TIME: 10:41 AM PAGER/CONTACT #: [phone] documented in this encounter [facility] 12-12-2022 Instructions Madison Recinos APRN.[facility] - 12/12/2022 7:46 PM EDT ASTHMA GENERAL [...] shortness of breath. documented in this encounter [facility] 12-12-2022 History of Presen t illness Narrative I have communicated my name and active licensure. The patient's identity and physical location were verified at the time of this visit. Either the patient or their legal new accounts representative has been informed of the risks and benefits of -- and alternatives to -- treatment through a remote evaluation and consents to proceed with the evaluation remotely. Telemedicine Visit - Distance Health Virtual Visit Note Patient seen on [employer] Video Visit platform. Location of patient: [place] History of Present Illness Irvin Kline is a 32 year old year old female who presents for symptoms that started yesterday. Patient was evaluated at [facility] on 12/06; had negative COVID, influenza, and [...] symptoms - All questions answered Madison Recinos APRN.CNP If you let us know who your [...] would like to continue care with a [facility] Primary Care physician, please ask your provider to place a "Establish Primary Care" order. Use [facility] to manage your care, wherever you are, 09/09, on your mobile device or computer. [facility] connects you to [email or web address] so you can access all your health information in one place and also schedule and request virtual appointments with primary care providers. documented in this encounter [facility] 12-10-2022 Miscellaneous Notes Order for nebulizer and supplies signed and faxed back to [facility]. Liliya NAYLOR documented in this encounter [facility] 12-09-2022 Miscellaneous Notes 1st Attempt Irvin Kline needs to reschedule this appointment with madie Hough because of unavailability. She should be rescheduled for first available. Please assist her with appointment rescheduling. If unable to do so, please verify best method of contact, and send staff message to the pool so the department may assist her. Thank you, Jess Martin documented in this encounter [facility] 12-06-2022 Instructions Mari Mancera PA-C - 12/06/2022 [...] Mari Mancera PA-C documented in this encounter [facility] 12-06-2022 History of Presen t illness Narrative [...] tenderness or frontal sinus tenderness. Mouth/Throat: Lips: Bunkie. No lesions. Mouth: Mucous membranes are moist. [...] which included preparing to see the patient, vusf-xw-eohj patient care, completing clinical documentation, performing a medically appropriate examination, counseling and educating the patient/family/caregiver, and ordering medications, tests, or procedures. documented in this encounter [facility] 11-26-2022 Miscellaneous Notes Was seen today. Pts upcoming ortho appt requires an ankle xray. Please place order and inform patient. Thank you. documented in this encounter [facility] 11-26-2022 History of Presen t illness Narrative [...] (97 F) (Tympanic) Ht 162.6 cm (5' 4") Wt 123.5 kg (272 lb 3.2 oz) [...] Donald Snowden DO documented in this encounter [facility] 11-04-2022 Miscellaneous Notes Patient phones requesting refills as follows: Requested Prescriptions Pending Prescriptions Disp Refills citalopram (CELEXA) 40 mg tablet [Pharmacy Med Name: CITALOPRAM HBR 40 MG TABLET] 90 tablet 0 Sig: take 1 tablet by mouth every day Please review and advise. Mari Argueta Ma documented in this encounter [facility] 10-30-2022 Miscellaneous Notes Peer to peer approved. Nucala auto injector approved through 10/30/2023. REQ# [id number] Pt will need to call pharmacy to set up delivery Please sign pended order for nucala to specialty pharmacy. Peer to peer scheduled for this Friday at 130 PM. The provider will call the [facility] office number. Court Funes RN [facility] called asking when you're available to do a Lmvm-vz-dahr for Nucala. They can be reached at Reference #: [id number] Court Shantel, RN PA denied due to need for additional information, Spirometry and Eosinphils sent to gail via fax PA for nucala sent to plan via phone, response by 10/22/2022 REQ# [id number] documented in this encounter [facility] 10-28-2022 Miscellaneous Notes Patient was last seen on 08/22/22 by Krystle Kent. Requested Prescriptions Pending Prescriptions Disp Refills ferrous sulfate 325 mg (65 mg iron) tablet [Pharmacy Med Name: FERROUS SULFATE 325 MG TABLET] 180 tablet 1 Sig: TAKE 1 TABLET BY MOUTH TWICE A DAY Please review and advise. SERGE London documented in this encounter [facility] 10-28-2022 Miscellaneous Notes Opened in error documented in this encounter [facility] 10-23-2022 Miscellaneous Notes Order for nebulizer faxed to [facility]. Liliya NAYLOR Patient's nebulizer has stopped working, order pended for new one. Liliya NAYLOR documented in this encounter [facility] 10-22-2022 Miscellaneous Notes Pt notified no questions or concerns at this time. Images from the original note were not included. Message Received: Today Robson Zuniga MD P [facility] Pul Nurse Juan MARIE for biologic; she is very allergic to CAts, some dog, dust mites not surprising. Called and left a message for pt to call the office for results. Jennifer Blackman documented in this encounter [facility] 10-07-2022 Miscellaneous Notes FMLA paperwork signed and faxed back to [facility]. Liliya NAYLOR documented in this encounter [facility] 10-05-2022 Miscellaneous Notes Last appointment: 08/22/22 Next appointment: 11/26/22 Pharmacy verified in [employer]. Refill(s) requested: Requested Prescriptions Pending Prescriptions Disp Refills montelukast (SINGULAIR) 10 mg tablet [Pharmacy Med Name: MONTELUKAST SOD 10 MG TABLET] 90 tablet Sig: TAKE 1 TABLET BY MOUTH EVERY DAY Order(s) pended. Please advise. Oma Phillips LPN, CMA documented in this encounter [facility] 09-30-2022 Miscellaneous Notes Patient phones requesting refills as follows: Requested Prescriptions Pending Prescriptions Disp Refills lamoTRIgine (LAMICTAL) 25 mg tablet 90 tablet 0 Sig: TAKE 1 TABLET BY MOUTH EVERYDAY AT BEDTIME Please review and advise. Mari Argueta Ma documented in this encounter [facility] 09-26-2022 Instructions Robson Zuniga MD - 09/26/2022 1:15 PM EDT May benefit from NUCALA shots, biologics for asthma Prednisone burst Nebulized budesonide twice a day; stay on symbicort Chest xray is important Labs ordered documented in this encounter [facility] 09-26-2022 History of Presen t illness Narrative [...] was life flighted as a child to [employer] on 1 occasion. Never been on a [...] not have industrial exposure. She works at [employer]. She does have obesity. No history of [...] (Src) 98.2 (Oral) Resp 13 Ht 5' 4" (1.63m) Wt 266 lb (120.7kg) SpO2 94% [...] LAB RESULTS: SPIROMETRY WITH DILATOR IF OBSTRUCTED ([id number]) - ordered on 09/26/22 No textual results [...] 74 - 99 mg/dL Final Comment: The [place] Diabetes Association (ADA) provides guidance for cutoff [...] Standards of Medical Care in Diabetes 2016, [place] Diabetes Association. Diabetes Care. 2016.39(Suppl 1). Glucose [...] 1.04 196 FIVC (L) 2.87 3.39 17 [id number] (L/sec) 1.03 2.22 3.49 4.97 29 2.70 [...] OBSTRUCTED - NITRIC OXIDE, EXHALED - ALGN HOSKINSTON GRP - IGE BLD ACT 6 VERY [...] 5 - High documented in this encounter [facility] 09-26-2022 Procedure note Associated Ord er(s): NITRIC [...] TIME: 1:05 PM documented in this encounter [facility] 09-25-2022 Miscellaneous Notes Reason for call: History of asthma, worsening shortness of breath, no relief with inhalers, has attempted 2 nebulizer treatments back to back with no relief. Chest tightness that radiates to back (below shoulder blades) Outcome: Go to ED now, advised Patient that urgent care is appropriate with onsite X-ray, patient verbalized understanding. Reason for Disposition Chest pain Protocols used: Asthma Hiiewx-REUWU-VE documented in this encounter [facility] 08-22-2022 History of Presen t illness Narrative This note was created using [employer]. Subjective Irvin Kline is a 32 year [...] history is provided by the patient. No language arts teacher was used. Review of Systems Constitutional: Negative [...] (98.8 F) (Tympanic) Ht 162.6 cm (5' 4") Wt 123.3 kg (271 lb 12.8 oz) [...] ALLERGY ORAL) Take by mouth once daily. Bptddjdfoiphzrd-Pgmafaqsi-JT (BROMFED DM) 2-30-10 mg/5 mL syrup Take [...] tenderness or frontal sinus tenderness. Mouth/Throat: Lips: Bunkie. Mouth: Mucous membranes are moist. Pharynx: Oropharynx [...] sooner if new or worsening symptoms. Krystle Kent APRN.FINANCIAL SERVICES SPECIALIST documented in this encounter [facility] 08-12-2022 Instructions Adriana Coughlin PA-C - 08/12/2022 [...] and a fever. documented in this encounter [facility] 08-12-2022 History of Presen t illness Narrative Subjective Irvin Kline is a 32 year old female with a past medical history of asthma, depression, and anxiety who [facility] for evaluation of right ear [...] which included preparing to see the patient, klxn-sx-xhyk patient care, completing clinical documentation, performing a medically appropriate examination, counseling and educating the patient/family/caregiver, and ordering medications, tests, or procedures. documented in this encounter [facility] 08-08-2022 Miscellaneous Notes Pt stated refill is for Celexa not Alley. Pt last OV: 07/11/22. Patient's request for medication is as follows: Requested Prescriptions Pending Prescriptions Disp Refills citalopram (CELEXA) 40 mg tablet 90 tablet 0 Sig: Take 1 tablet by mouth once daily. Prescription(s) as above. Please process accordingly. Yesi Mathis MA documented in this encounter [facility] 07-19-2022 Miscellaneous Notes Refill at the pharmacy [...] Samara Enamorado Ma documented in this encounter [facility] 06-16-2022 Instructions Mari Mancera PA-C - 06/16/2022 [...] Mari Mancera PA-C documented in this encounter [facility] 06-16-2022 History of Presen t illness Narrative [...] Mari Mancera PA-C documented in this encounter [facility] 04-30-2022 Miscellaneous Notes Patient notified Ok have [...] in this encounter: Telephone Encounter Divya Alex Ma April 29, 2022 7:58 AM 7:58 AM Currently taking CELEXA & Abilify She says that they are not working well for her anymore. She is really calvillo and anxious more often. She is wondering if her meds needs to be changed or adjusted. Just seen in the office this pass 03/2022 or Deng documented in this encounter [facility] 04-19-2022 History of Presen t illness Narrative VIRTUAL VISIT PROGRESS NOTE This is a virtual visit using [employer] video visit. It required patient-provider interaction for [...] good. She was than advised to see internet marketing assistant and thyroid US was ordered. Thyroid ultrasound [...] drinking. . 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 PE: Young CC female. Obese. No acute [...] Heat Intolerance?: No documented in this encounter [facility] 04-12-2022 History of Presen t illness Narrative [...] Not applicable SIGNED BY: Gaby Cedillo RDMS [facility] April 12, 2022 10:48 AM documented in this encounter [facility] 04-12-2022 Miscellaneous Notes Us of thyroid normal, to see the endocrine dr for further evaluation documented in this encounter [facility] 04-05-2022 Miscellaneous Notes Labs ordered Can you please order thyroid antibody labs documented in this encounter [facility] 04-02-2022 History of Presen t illness Narrative [...] (97.8 F) (Tympanic) Ht 162.6 cm (5' 4") Wt 127.2 kg (280 lb 8 oz) [...] diet of 1000 mg/day for under 50, 0910-6385 mg/day for 50+ - CBC + DIFF [...] Donald Snowden DO documented in this encounter [facility] 03-11-2022 Emergency department Note Physician spoke with patient, agrees to discharge patient to home. [facility], physician's ambulance and [facility] notified. Nancy Dunlap RN 03/11/222025 [facility] 03-11-2022 Emergency department Note Physician spoke with patient, agrees to discharge patient to home. [facility], physician's ambulance and [facility] notified. Nancy Dunlap RN 03/11/222025 Patient rang call light. Patient having anxiety attack about having to spend the night away from her children. Explained to patient that it was her choice to be admitted to CDU and wait for transport. Patient no longer wishes to be admitted and would like to be discharged home. Physician informed. Nancy Dunlap RN 03/11/222003 Phoned [facility]. Hand off report given to POWER Lafleur. 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 At 8 PM, the nurse informs me [...] signs of distress. documented in this encounter [facility] 03-11-2022 Hospital Discharg e instructions Fabiana [...] be sent through Care Everywhere.Asthma in Adults (Finnish)documented in this encounter [facility] 03-11-2022 Emergency department Note Patient rang call light. Patient having anxiety attack about having to spend the night away from her children. Explained to patient that it was her choice to be admitted to CDU and wait for transport. Patient no longer wishes to be admitted and would like to be discharged home. Physician informed. Nancy Dunlap RN 03/11/222003 [facility] 03-11-2022 Emergency department Note Phoned [facility]. Hand off report given to POWER Lafleur. Nancy Dunlap RN 03/11/22 [id number] [facility] 03-11-2022 Emergency department Triage note Patient arrived ambulatory to room 3 without difficulty. Patient complains of asthma exacerbation for the past 2 days which has progressively gotten worse. Patient has been using her rescue inhaler with no relief. Patient complains of SOB and wheezing but denies any chest pain. Patient A&Ox4, respirations even and unlabored. Patient in no acute signs of distress. 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 Bowman at 7:30 PM. Patient is awaiting transport to the CDU at [place]. At 8 PM, the nurse informs me [...] course of prednisone. Fabiana Choudhury MD 03/11/222024 [facility] 08-10-2021 History of Presen t illness Narrative Discharge instructions reviewed with pt and . Verbalize understanding. Tolerating oral fluids well. Denies nausea. at bedside. Awake. Denies pain. documented in this encounter [facility] Work Phone: 07-29-2020 [facility] DischAnthony Cruz MD - 07/29/2020 Please return [...] cannot be sent through Care Everywhere.Ankle Sprain (Finnish)documented in this encounter [facility] Work Phone: 08-08-2016 [...] of this encounter (statuses as of 04/02/2022) [facility] Narrative* Problem Noted [...] of this encounter (statuses as of 04/05/2022) [facility] Narrative* Problem Noted [...] of this encounter (statuses as of 04/17/2022) [facility] Narrative* Problem Noted [...] of this encounter (statuses as of 04/19/2022) [facility] Narrative* Problem Noted [...] of this encounter (statuses as of 04/27/2022) [facility] Narrative* Problem Noted [...] of this encounter (statuses as of 04/30/2022) [facility] Narrative* Problem Noted [...] of this encounter (statuses as of 06/16/2022) [facility] Narrative* Problem Noted [...] of this encounter (statuses as of 06/25/2022) [facility] Narrative* Problem Noted [...] of this encounter (statuses as of 07/24/2022) [facility] Narrative* Problem Noted [...] of this encounter (statuses as of 08/09/2022) [facility] Narrative* Problem Noted [...] of this encounter (statuses as of 08/13/2022) [facility] Narrative* Problem Noted [...] of this encounter (statuses as of 08/22/2022) [facility] Narrative* Problem Noted [...] 06/17/2016 08/06/2016 Decreased movements in second trimester 05/13/1908/06/2016 documented as of this encounter (statuses as of 09/25/2022) [facility] Narrative* Problem Noted [...] of this encounter (statuses as of 09/26/2022) [facility] Narrative* Problem Noted [...] of this encounter (statuses as of 09/27/2022) [facility] Narrative* Problem Noted [...] of this encounter (statuses as of 09/30/2022) [facility] Narrative* Problem Noted [...] of this encounter (statuses as of 10/07/2022) [facility] Narrative* Problem Noted [...] of this encounter (statuses as of 10/08/2022) [facility] Narrative* Problem Noted [...] of this encounter (statuses as of 10/18/2022) [facility] N[facility]* Problem Noted [...] of this encounter (statuses as of 10/22/2022) [facility] N[facility]ative* Problem Noted [...] of this encounter (statuses as of 10/24/2022) [facility] N[facility]* Problem Noted [...] of this encounter (statuses as of 10/29/2022) [facility] N[facility]ative* Problem Noted [...] of this encounter (statuses as of 10/29/2022) [facility] N[facility]* Problem Noted [...] of this encounter (statuses as of 10/31/2022) [facility] N[facility]* Problem Noted [...] of this encounter (statuses as of 11/04/2022) [facility]* Problem Noted [...] of this encounter (statuses as of 11/26/2022) [facility] N[facility]* Problem Noted [...] of this encounter (statuses as of 11/26/2022) [facility] N[facility]* Problem Noted [...] of this encounter (statuses as of 12/07/2022) [facility]* Problem Noted [...] of this encounter (statuses as of 12/10/2022) [facility]* Problem Noted [...] of this encounter (statuses as of 12/13/2022) [facility] N[facility]* Problem Noted [...] 06/17/2016 08/06/2016 Decreased movements in second trimester 03/26/08/06/2016 documented as of this encounter (statuses as of 12/17/2022) [facility] N[facility]ative* Problem Noted [...] of this encounter (statuses as of 12/18/2022) [facility] N[facility]* Problem Noted [...] of this encounter (statuses as of 12/19/2022) [facility] N[facility]* Problem Noted [...] of this encounter (statuses as of 12/23/2022) [facility] N[facility]* Problem Noted [...] of this encounter (statuses as of 12/27/2022) [facility] N[facility]* Problem Noted [...] of this encounter (statuses as of 01/03/2023) [facility]* Problem Noted [...] of this encounter (statuses as of 01/12/2023) [facility]* Problem Noted [...] of this encounter (statuses as of 03/21/2023) [facility] N[facility]* Problem Noted [...] of this encounter (statuses as of 03/28/2023) [facility]* Problem Noted [...] of this encounter (statuses as of 04/01/2023) [facility]* Problem Noted [...] of this encounter (statuses as of 2023) [facility]* Problem Noted [...] of this encounter (statuses as of 04/10/2023) [facility] N[facility]* Problem Noted [...] of this encounter (statuses as of 04/10/2023) [facility]* Problem Noted [...] of this encounter (statuses as of 04/11/2023) [facility]* Problem Noted [...] of this encounter (statuses as of 04/11/2023) [facility] N[facility]* Problem Noted [...] of this encounter (statuses as of 04/11/2023) [facility]* Problem Noted [...] of this encounter (statuses as of 04/16/2023) [facility]* Problem Noted [...] of this encounter (statuses as of 04/16/2023) [facility]* Problem Noted [...] of this encounter (statuses as of 04/17/2023) [facility]* Problem Noted [...] of this encounter (statuses as of 04/17/2023) [facility]* Problem Noted [...] of this encounter (statuses as of 04/18/2023) [facility]* Problem Noted [...] of this encounter (statuses as of 04/22/2023) [facility] N[facility]* Problem Noted [...] of this encounter (statuses as of 04/24/2023) [facility]* Problem Noted [...] of this encounter (statuses as of 04/24/2023) [facility] of Past illness Narrative* Problem Noted [...] of this encounter (statuses as of 04/30/2023) [facility] History of Past illness Narrative* Problem Noted [...] of this encounter (statuses as of 04/30/2023) [facility] illness Narrative* Problem Noted [...] of this encounter (statuses as of 05/06/2023) [facility] Narrative* Problem Noted [...] of this encounter (statuses as of 05/08/2023) [facility] Narrative* Problem Noted [...] of this encounter (statuses as of 05/12/2023) [facility] Narrative* Problem Noted [...] of this encounter (statuses as of 05/19/2023) [facility] Narrative* Problem Noted [...] of this encounter (statuses as of 05/20/2023) [facility] Narrative* Problem Noted [...] of this encounter (statuses as of 05/22/2023) [facility] N[facility]ative* Problem Noted [...] of this encounter (statuses as of 05/22/2023) [facility] Narrative* Problem Noted [...] of this encounter (statuses as of 05/22/2023) [facility] N[facility]ative* Problem Noted [...] of this encounter (statuses as of 05/23/2023) [facility] N[facility]ative* Problem Noted [...] of this encounter (statuses as of 05/23/2023) [facility] N[facility]* Problem Noted [...] of this encounter (statuses as of 05/28/2023) [facility] N[facility]* Problem Noted [...] of this encounter (statuses as of 05/29/2023) [facility] Narrative* Problem Noted [...] of this encounter (statuses as of 05/30/2023) [facility] Narrative* Problem Noted [...] of this encounter (statuses as of 06/06/2023) [facility] Plan note No data available for this section [facility] Evaluation note* Diagnosis Sprain of right [...] Fatigue, unspecified type documented in this encounter [facility] note* Diagnosis Abnormal TSH- Primary Other abnormal clinical finding documented in this encounter [facility] note* Diagnosis Mild intermittent asthma, uncomplicated- Primary Unspecified asthma documented in this encounter [facility] note* Diagnosis Justina's thyroiditis Chronic lymphocytic thyroiditis documented in this encounter [facility] note* Diagnosis Low oxygen saturation- Primary Abnormal arterial blood gases SOB (shortness of breath) Shortness of breath documented in this encounter [facility] note* Diagnosis Acute otitis media, right- Primary Unspecified otitis media Right ear pain Otalgia, unspecified documented in this encounter [facility] note* Diagnosis Mild intermittent asthma with acute exacerbation- Primary Unspecified asthma, with exacerbation SOB (shortness of breath) Shortness of breath Wheezing [facility] Diagnosis Mild persistent asthma without complication Unspecified asthma [facility] Diagnosis Pulmonary eosinophilia (HCC)- Primary Pulmonary eosinophilia Late onset asthma, severe persistent, with status asthmaticus Asthma, moderate persistent, poorly-controlled Unspecified asthma [facility] Diagnosis Mild intermittent asthma, uncomplicated Unspecified asthma [facility] Diagnosis Late onset asthma, severe persistent, with status asthmaticus [facility] Diagnosis Moderate persistent asthma without complication- Primary Unspecified asthma [facility] Diagnosis Pulmonary eosinophilia (HCC)- Primary Pulmonary eosinophilia Late onset asthma, severe persistent, with status asthmaticus [facility] Diagnosis Foot pain, right- Primary Pain in limb Abnormal weight gain [facility] Diagnosis Viral URI with cough- Primary Acute upper respiratory infections of unspecified site [facility] Diagnosis Severe persistent asthma with acute exacerbation- Primary Unspecified asthma, with exacerbation [facility] Diagnosis Late onset asthma, severe persistent, with status asthmaticus- Primary Pulmonary eosinophilia (HCC) Pulmonary eosinophilia [facility] Diagnosis Mild asthma, unspecified whether complicated, unspecified whether persistent [facility] Diagnosis Justina's thyroiditis Chronic lymphocytic thyroiditis [facility] Diagnosis Insect bite of left upper arm, initial encounter- Primary Skin erythema Unspecified erythematous condition [facility] Diagnosis Mild intermittent asthma, uncomplicated Unspecified asthma [facility] Diagnosis Right ankle instability- Primary Other joint derangement, not elsewhere classified, ankle and foot [facility] Diagnosis Right ankle instability- Primary Other joint derangement, not elsewhere classified, ankle and foot [facility] Diagnosis Lightheaded- Primary Dizziness and giddiness Hypoglycemia Hypoglycemia, unspecified [facility] Diagnosis Hypoglycemia- Primary Hypoglycemia, unspecified [facility]* Diagnosis Adrenal insufficiency (HCC)- Primary Glucocorticoid deficiency Reactive hypoglycemia Hypoglycemia, unspecified documented in this encounter [facility] note* Diagnosis Hypoglycemia Hypoglycemia, unspecified documented in this encounter [facility] note* Diagnosis Mild intermittent asthma, uncomplicated Unspecified asthma [facility] Diagnosis Asthma, late onset, severe persistent, uncomplicated- Primary Adrenal insufficiency due to corticosteroid withdrawal ([facility]) documented in this encounter [facility] note* Diagnosis Hypoglycemia- Primary Hypoglycemia, unspecified Low serum cortisol level Glucocorticoid deficiency Class 3 severe obesity due to excess calories with serious comorbidity and body mass index (BMI) of 45.0 to 49.9 in adult ([facility]) documented in this encounter [facility] note* Diagnosis Right ankle instability- Primary Other joint derangement, not elsewhere classified, ankle and foot documented in this encounter [facility] note* Diagnosis Right ankle instability- Primary Other joint derangement, not elsewhere classified, ankle and foot [facility] Diagnosis Mild intermittent asthma, uncomplicated- Primary Unspecified asthma documented in this encounter [facility] note* Diagnosis Anxiety with depression- Primary Acute non-recurrent maxillary sinusitis Attention deficit hyperactivity disorder (ADHD), predominantly inattentive type documented in this encounter [facility] note* Diagnosis Viral URI with cough- Primary Acute upper respiratory infections of unspecified site documented in this encounter [facility] note* Diagnosis Asthma, late onset, severe persistent, uncomplicated- Primary [facility] Diagnosis Mild intermittent asthma, uncomplicated Unspecified asthma [facility]* Diagnosis Bipolar II disorder (HCC)- Primary Other bipolar disorders Major depressive disorder, recurrent episode, moderate (HCC) Major depressive disorder, recurrent episode, moderate Generalized anxiety disorder documented in this encounter [facility] note* Diagnosis Left-sided chest wall pain- Primary Painful respiration Upper back pain on left side Pain in thoracic spine Low blood sugar Hypoglycemia, unspecified [facility] Diagnosis Generalized anxiety disorder- Primary [facility] Diagnosis Right ankle instability- Primary Other joint derangement, not elsewhere classified, ankle and foot [facility]* Diagnosis Major depressive disorder, recurrent episode, moderate (HCC) Major depressive disorder, recurrent episode, moderate Bipolar II disorder (HCC) Other bipolar disorders documented in this encounter [facility] note* Diagnosis Bipolar II disorder (HCC)- Primary Other bipolar disorders Generalized anxiety disorder Major depressive disorder, recurrent episode, moderate (HCC) Major depressive disorder, recurrent episode, moderate documented in this encounter [facility] note* Diagnosis Asthma, late onset, severe persistent, uncomplicated- Primary Non-seasonal allergic rhinitis due to pollen documented in this encounter [facility] note* Diagnosis Environmental and seasonal allergies- Primary documented in this encounter [facility] note* Diagnosis Infected abrasion of right knee, initial encounter- Primary documented in this encounter [facility] note* Diagnosis Bipolar II disorder (HCC)- Primary Other bipolar disorders documented in this encounter [facility] note* Diagnosis Bipolar II disorder (HCC)- Primary Other bipolar disorders Generalized anxiety disorder Major depressive disorder, recurrent episode, moderate (HCC) Major depressive disorder, recurrent episode, moderate documented in this encounter [facility] note* Diagnosis Generalized anxiety disorder Major depressive disorder, recurrent episode, moderate (HCC) Major depressive disorder, recurrent episode, moderate documented in this encounter [facility] note* Diagnosis Bipolar II disorder (HCC)- Primary Other bipolar disorders Generalized anxiety disorder Major depressive disorder, recurrent episode, moderate (HCC) Major depressive disorder, recurrent episode, moderate documented in this encounter [facility] note* Diagnosis Generalized anxiety disorder Major depressive disorder, recurrent episode, moderate (HCC) Major depressive disorder, recurrent episode, moderate documented in this encounter [facility] note* Diagnosis Bipolar II disorder (HCC)- Primary Other bipolar disorders Generalized anxiety disorder Major depressive disorder, recurrent episode, moderate (HCC) Major depressive disorder, recurrent episode, moderate documented in this encounter [facility] note* Diagnosis Bipolar II disorder (HCC)- Primary Other bipolar disorders documented in this encounter [facility] note* Diagnosis Mild intermittent asthma, uncomplicated Unspecified asthma documented in this encounter [facility] note* Diagnosis Bipolar II disorder (HCC)- Primary Other bipolar disorders Generalized anxiety disorder documented in this encounter [facility] note* Diagnosis Severe persistent asthma without complication- Primary documented in this encounter [facility] note* Diagnosis Severe persistent asthma without complication- Primary documented in this encounter [facility] note* Diagnosis Asthma, late onset, severe persistent, uncomplicated- Primary [facility]* Diagnosis Reactive hypoglycemia- Primary Hypoglycemia, unspecified Abnormal glucose Other abnormal glucose Vitamin B12 deficiency Other B-complex deficiencies documented in this encounter [facility] note* Diagnosis Generalized anxiety disorder- Primary documented in this encounter [facility] note* Diagnosis Bipolar II disorder (HCC)- Primary Other bipolar disorders Generalized anxiety disorder [facility]* Diagnosis Mild intermittent asthma, uncomplicated Unspecified asthma documented in this encounter [facility] note* Diagnosis Asthma exacerbation attacks- Primary Moderate persistent asthma with exacerbation Unspecified asthma, with exacerbation Asthma exacerbation, mild documented in this encounter [facility] note* Diagnosis Moderate persistent asthma, uncomplicated- Primary documented in this encounter [facility] note* Diagnosis Asthma, late onset, severe persistent, uncomplicated- Primary Eosinophilic asthma Pulmonary eosinophilia Class 3 severe obesity with serious comorbidity and body mass index (BMI) of 40.0 to 44.9 in adult, unspecified obesity type (HCC) documented in this encounter [facility] note* Diagnosis Mild intermittent asthma, uncomplicated Unspecified asthma documented in this encounter [facility] note* Diagnosis Asthma, moderate persistent, poorly-controlled- Primary Unspecified asthma Costochondritis Tietze's disease [facility]* Diagnosis Reactive hypoglycemia- Primary Hypoglycemia, unspecified Asthma, late onset, severe persistent, uncomplicated (HCC) Class 3 severe obesity due to excess calories with serious comorbidity and body mass index (BMI) of 40.0 to 44.9 in adult (HCC) Vitamin B12 deficiency Other B-complex deficiencies documented in this encounter [facility] note* Diagnosis Right ankle instability- Primary Other joint derangement, not elsewhere classified, ankle and foot Chronic pain of right ankle [facility]* Diagnosis Bipolar II disorder (HCC) Other bipolar disorders [facility] noteNo assessment information availableWSt. Mary's Medical Center Work Phone: Evaluation note* Diagnosis Mass of skin- Primary Localized superficial swelling, mass, or lump Family history of scleroderma Family history of other condition Skin sensitivity Unspecified disorder of skin and subcutaneous tissue Bruising Contusion of unspecified site documented in this encounter [facility] note* Diagnosis Mild intermittent asthma, uncomplicated (HCC) Unspecified asthma [facility] Diagnosis Mechanical back pain- Primary Backache, unspecified Family history of scleroderma Family history of other condition Mass of skin Localized superficial swelling, mass, or lump Trochanteric bursitis of both hips Enthesopathy of hip region Tenderness of sacroiliac joint Cold extremities [facility]* Diagnosis Lightheaded Dizziness and giddiness Hypoglycemia Hypoglycemia, unspecified documented in this encounter [facility] note* Diagnosis Reactive hypoglycemia- Primary Hypoglycemia, unspecified [facility]* Diagnosis Reactive hypoglycemia- Primary Hypoglycemia, unspecified [facility]* Diagnosis Mild asthma, unspecified whether complicated, unspecified whether persistent (HCC) documented in this encounter [facility] note* Diagnosis Mild asthma with exacerbation, unspecified whether persistent- Primary documented in this encounter [facility] Discharge instructions* Instructions* Man Marcos DPM - 08/10/2021 POST OPERATIVE INSTRUCTIONS PLEASE [...] boot [x] Call my office today (office [phone]) for follow up appointment in 3 days. [x] Have your prescriptions filled promptly and take as prescribed. [x] Do not be alarmed if blood appears on the bandage or if black and blue callaway appear. Some silver dollar size blood on outer bandage is ok. If this gets larger Please call me. My cell phone is [phone]. [x] If any unusual situation arises- Call Immediately. documented in this [facility] Work Phone: Hospital Discharge instructionsAdditional Instructions CT scan normal brain structures. Multiple scalp calcified nodules noted on the right side. Use Tylenol as needed. Follow-up with your PCP reevaluation and referral as needed. [facility] Work Phone: Reason for referral (narrative)* Outpatient Procedure (Routine) - Closed Specialty Diagnoses / Procedures Referred By Jj gonzalez Referred To Contact [facility] Diagnoses Late onset asthma, severe persistent, with status asthmaticus Procedures NITRIC OXIDE, EXHALED NITRIC OXIDE GAS DETERMINATION Robson Zuniga MD [address] [place] [id number] [facility] [place] [address] [place] [address] Referral ID Status Reason Start Date Expiration Date V isits Requested Visits Authorized [id number] Closed Auto-Generate d Referral 09/26/2022 02/16/2023 1 1 * Outpatient Procedure (Routine) - Closed Specialty Diagnoses / Procedures Referred By Jj gonzalez Referred To [facility] Diagnoses Late onset asthma, severe persistent, with status asthmaticus Procedures SPIROMETRY WITH DILATOR IF OBSTRUCTED BRNCDILAT RSPSE SPMTRY PRE&POST-BRNCDILAT ADMN Robson uZniga MD [address] [place] [address] [address] Referral ID Status Reason Start Date Expiration Date V isits Requested Visits Authorized [id number] Closed Auto-Generated Referral Clearance Not Met -Financial Clearance Bypassed 09/26/2022 02/16/2023 1 1 [facility] for referral (narrative)* Diagnostic Procedure Only (Routine) - Closed Specialty Diagnoses / Procedures Referred By Jj gonzalez Referred To Contact [facility] Diagnoses Justina's thyroiditis Procedures US THYROID/PARATHYROID US SOFT TISSUE HEAD & NECK REAL TIME IMGE Donald Jensen DO [address] [place] [address] [place] [id number] Referral ID Status Reason Start Date Expiration Date V isits Requested Visits Authorized [id number] Closed Auto-Generate d Referral 04/11/2022 05/11/2023 1 1 [facility]No reason for referral information availableWSt. Mary's Medical Center Work Phone: Reason for visit Narrative* Consult, Test, Treat (Routine) - Closed Specialty Diagnoses / Procedures Referred By Contac t Referred To Contact Rheumatology / FAMILY MEDICINE Diagnoses Family history of scleroderma Skin sensitivity Bruising Mass of skin Procedures OFFICE/OUTPATIENT [facility] 60 MINUTES Krystle Kent APRN.FINANCIAL SERVICES SPECIALIST [address] [place] [address] Phone: tel: fax: Family Medicine [address] [place] [address] [place] [address] Phone: tel: fax: Referral ID Status Reason Start Date Expiration Date V isits Requested Visits Authorized [id number] Closed PCP Requested Referral 09/07/2024 09/07/2025 1 1 [facility] Reason for Referral Status Reason Specialty Diagnoses / Procedures Re ferred By Contact Referred To Contact Closed Cardiology Diagnoses Orthostatic hypotension Orthostatic lightheadedness Procedures Echocardiogram complete Jose Alfredo King MD [address] [place] [id number] Status Reason Specialty Diagnoses / Procedures Referre d By Contact Referred To Contact Open Diagnoses Syncope, unspecified syncope type Lightheadedness Orthostatic hypotension Palpitations Procedures Cardiac event monitor Liliya Baeza, COPING MACHINE AS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 [address] [place] [address] [place] [address] [address] Specialty Diagnoses / Procedures Referred By Contac t Referred To Contact Orthopedics Diagnoses Foot pain, right Procedures CONSULT TO ORTHOPAEDIC SURGERY OFFICE/OUTPATIENT [facility] 60-74 MINUTES Donald Snowden DO [address] [place] [address] Referral ID Status Reason Start Date Expiration Date Visits Requested Visits Authorized [id number] Authorized PCP Requested Referral 11/26/2023 1 1 Specialty Diagnoses / Procedures Referred By Contac t Referred To Contact Endocrinology Diagnoses Hypoglycemia Procedures CONSULT TO ENDOCRINOLOGY OFFICE/OUTPATIENT [facility] 60 MINUTES Krystle Kent, COPING MACHINE ASSEMBLER.FINANCIAL SERVICES SPECIALIST [address] [place] [address] Referral ID Status Reason Start Date Expiration Date Visits Requested Visits Authorized [id number] Authorized PCP Requested Referral 04/11/2023 04/10/2024 1 1 Specialty Diagnoses / Procedures Referred By Contac t Referred To Contact Allergy Diagnoses Asthma, late onset, severe persistent, uncomplicated Non-seasonal allergic rhinitis due to pollen Procedures CONSULT TO ALLERGY/IMMUNOLOGY OFFICE/OUTPATIENT [facility] 60 MINUTES Robson Zuniga MD [address] [place] [address] Referral ID Status Reason Start Date Expiration Date Visits Requested Visits Authorized [id number] Authorized PCP Requested Referral 08/25/2023 08/24/2024 1 1 Specialty Diagnoses / Procedures Referred By Contac t Referred To Contact Allergy Diagnoses Environmental and seasonal allergies Procedures CONSULT TO ALLERGY/IMMUNOLOGY OFFICE/OUTPATIENT [facility] 60 MINUTES Nusrat Lemos, COPING MACHINE ASSEMBLER.FINANCIAL SERVICES SPECIALIST [address] [place] [address] Referral ID Status Reason Start Date Expiration Date Visits Requested Visits Authorized [id number] Authorized PCP Requested Referral 08/25/2023 08/24/2024 1 1 Specialty Diagnoses / Procedures Referred By Contac t Referred To Contact Psychology Diagnoses Bipolar II disorder (HCC) Procedures CONSULT TO PSYCHOLOGY OFFICE/OUTPATIENT [facility] 60 MINUTES Chase Bazan, COPING MACHINE ASSEMBLER.FINANCIAL SERVICES SPECIALIST [address] [facility] [address] [place] [address] Referral ID Status Reason Start Date Expiration Date Visits Requested Visits Authorized [id number] Pending Review PCP Requested Referral 09/08/2023 09/07/2024 1 1 Specialty Diagnoses / Procedures Referred By Contac t Referred To Contact Diagnoses Moderate persistent asthma, uncomplicated Procedures Complete PFT pre and post bronchodilator Charu [place] [address] Referral ID Status Reason Start Date Expiration Date V isits Requested Visits Authorized [id number] Incomplete 12/12/2021 06/10/2022 1 1 Assessments Diagnosis Orthostatic hypotension Orthostatic lightheadedness Orthostatic hypotension Diagnosis Vasovagal syncope- Primary Syncope and collapse Acute cystitis without hematuria Acute cystitis Advance Directives No Advanced Directives Records FoundDocuments on File Type Date Recorded Patient Insulation Extruder Operator Expl anation Advance Directives and Living Will Power of Mig Tig Welder Documents on File Type Date Recorded Patient Insulation Extruder Operator Expl anation Advance Directives and Living Will Power of Mig Tig Welder Documents on File Type Date Recorded Patient Insulation Extruder Operator Expl anation ACP-Advance Directive ACP-Power of Mig Tig Welder Latest Code Status on File Code Status Date Activated Date Inactivated Comments Full Code 08/10/2021 6:13 AM Advance Directive Response Recorded Date/ Time Do you have a Healthcare Power of Mig Tig Welder? No September 04, 2024 4:27pm Advance Directive Response Recorded Date/ Time Do you have a Healthcare Power of Mig Tig Welder? No September 04, 2024 4:27pm Do you have a Healthcare Power of Mig Tig Welder? No October 05, 2024 7:34pm Summary Purpose Family History No Family History [...] sent through Care Everywhere. * Vasovagal Syncope (Finnish) * Fainting (Finnish) * UTI (Urinary Tract Infection): Female (Finnish) documented in this encounter Health Concerns Infection Onset Date Last Indicated Resolved Time COVID-19 Rule-Out 06/16/2022 06/16/2022 06/16/2022 10:50 AM EDT Infection Onset Date Last Indicated Resolved Time Influenza 05/23/2023 05/23/2023 Chief Complaint and Reason for Visit Chief Complaint Admit Date LUMPS ON HER HEAD September 04, 2024 4:04 pm Chief Complaint Admit Date LUMPS ON HER HEAD September 04, 2024 4:04 pm hypoglycemia October 05, 2024 7: 27pm Additional Source Comments INFORMATION SOURCE (unrecogn ized section and content) DATE CREATED AUTHOR 12/28/2019 [facility] DATE CREATED AUTHOR AUTHOR'S ORGANIZ ATION 01/25/2020 [facility] DATE CREATED AUTHOR AUTHOR'S ORGANIZ ATION 08/02/2020 [facility] DATE CREATED AUTHOR AUTHOR'S ORGANIZ ATION 11/17/2021 [facility] DATE CREATED AUTHOR AUTHOR'S ORGANIZ ATION 11/24/2022 [facility] DATE CREATED AUTHOR AUTHOR'S ORGANIZ ATION 01/06/2023 [facility] DATE CREATED AUTHOR AUTHOR'S ORGANIZ ATION 06/08/2023 [facility] ([place] DATE CREATED AUTHOR AUTHOR'S ORGANIZ ATION 09/11/2023 [facility] DATE CREATED AUTHOR AUTHOR'S ORGANIZ ATION 10/24/2023 [facility] DATE CREATED AUTHOR AUTHOR'S ORGANIZ ATION 08/13/2024 [facility] DATE CREATED AUTHOR AUTHOR'S ORGANIZ ATION 10/12/2024 [facility] DATE CREATED AUTHOR AUTHOR'S ORGANIZ ATION 12/08/2024 [facility] DATE CREATED AUTHOR AUTHOR'S ORGANIZ ATION 12/18/2024 [facility] DATE CREATED AUTHOR AUTHOR'S ORGANIZ ATION 12/25/2024 [facility] Reason for Visit (unrecogniz ed section and content) Reason Comments Loss of Consciousness Reason Comments Ankle Injury right Reason Comments Establish Care Anxiety, fatigue Reason Comments Thyroid Problem Specialty Diagnoses / Procedures Referred By Jj gonzalez Referred To Contact Endocrinology Diagnoses Justina's thyroiditis Procedures CONSULT TO ENDOCRINOLOGY OFFICE/OUTPATIENT [facility] 60-74 MINUTES Donald Snowden DO [address] [place] [address] Referral ID Status Reason Start Date Expiration Date V isits Requested Visits Authorized [id number] Closed PCP Requested Referral 04/11/2022 04/11/2023 1 [...] Spirometry Specialty Diagnoses / Procedures Referred By Contac t Referred To Contact [facility] Diagnoses Late onset asthma, severe persistent, with status asthmaticus Procedures NITRIC OXIDE, EXHALED NITRIC OXIDE GAS DETERMINATION Robson Zuniga MD [address] [place] [address] [facility] [address] [place] [address] Referral ID Status Reason Start Date Expiration Date V isits Requested Visits Authorized [id number] Closed Auto-Generate d Referral 09/26/2022 02/16/2023 1 [...] allergy meds, ears are clogged. Pt needs "S note for today and tomorrow. Reason Comments FYI-No Action Needed Reason Comments Cough Reason Comments Asthma Cough Reason Onset Date Comments Refill Request 12/17/2022 Reason Comments Radiology US Specialty Diagnoses / Procedures Referred By Contac t Referred To Contact US IMAGING Diagnoses Justina's thyroiditis Procedures US THYROID/PARATHYROID US SOFT TISSUE HEAD & NECK REAL TIME IMGE Donald Jensen DO [address] [place] [address] [place] [address] Referral ID Status Reason Start Date Expiration Date V isits Requested Visits Authorized [id number] Closed Auto-Generate d Referral 04/11/2022 05/11/2023 1 1 Reason Comments Medication Problem Reason Comments Insect Bite L upper arm x1 day Reason Comments Physical Therapy Specialty Diagnoses / Procedures Referred By Contac t Referred To Contact [facility] Diagnoses Right ankle instability Procedures CONSULT TO PHYSICAL THERAPY PHYSICAL THERAPY EVALUATION HIGH COMPLEX 45 MINS Arlene Pittman [address] [place] [address] [facility] [place] [address] [place] [address] Referral ID Status Reason Start Date Expiration Date Visits Requested Visits Authorized [id number] Authorized Auto-Generat ed Referral 03/12/2023 02/17/2024 99 99 Reason Comments Low Blood Sugar Reason Comments Dizziness Lighthead, legs felt weak, shaky, patient ate food and after 30 mins later tested sugar 63 with ( has glucose monitor since he has diabetes) Reason Comments Appointment Reason Comments Medical Nutrition Therapy Hypoglycemia Specialty Diagnoses / Procedures Referred By Jj t Referred To Contact Diagnoses Adrenal insufficiency (HCC) Reactive hypoglycemia Procedures ENDOCRINOLOGY DIETITIAN VISIT (MNT) MEDICAL NUTRITION ASSMT&IVNTJ INDIV EACH 15 AL MEDICAL NUTRITION ASSMT&IVNTJ INDIV EACH 15 AL MEDICAL NUTRITION ASSMT&IVNTJ INDIV EACH 15 AL MEDICAL NUTRITION ASSMT&IVNTJ INDIV EACH 15 AL Owen Feliz Jr., MD [address] [place] [address] Referral ID Status Reason Start Date Expiration Date V isits Requested Visits Authorized [id number] Closed PCP Requested Referral 04/13/2023 04/12/2024 1 [...] Jj gonzalez Referred To Contact Endocrinology Diagnoses Hypoglycemia Procedures CONSULT TO ENDOCRINOLOGY OFFICE/OUTPATIENT [facility] MDM 60 MINUTES Krystle Kent, TIO.FINANCIAL SERVICES SPECIALIST [address] [place] [address] Referral ID Status Reason Start Date Expiration Date V isits Requested Visits Authorized [id number] Closed PCP Requested Referral 04/11/2023 04/10/2024 1 1 Reason Comments PT Progress Note Specialty Diagnoses / Procedures Referred By Jj t Referred To Contact PHYSICAL THERAPY Diagnoses Right ankle instability Procedures CONSULT TO PHYSICAL THERAPY PHYSICAL THERAPY EVALUATION HIGH COMPLEX 45 MINS Arlene Pittman [address] [place] [address] [facility] [address] [place] [address] Reason Comments Follow Up Pain Reason Comments [...] energy Specialty Diagnoses / Procedures Referred By Jj gonzalez Referred [facility] Contact [facility] Diagnoses Severe persistent asthma without complication Procedures SPIROMETRY - BASELINE AND POST DILATOR BRNCDILAT RSPSE SPMTRY PRE&POST-BRNCDILAT ADMNella Reynoso MD [address] [place] [address] [facility] [address] [place] [address] Referral ID Status Reason Start Date Expiration Date Visits Re quested Visits Authorized [id number] Closed 10/23/2023 02/17/2024 1 1 Specialty Diagnoses / Procedures Referred By Jj gonzalez Referred To Contact [facility] Diagnoses Severe persistent asthma without complication Procedures NITRIC OXIDE, EXHALED NITRIC OXIDE GAS DETERMINATION Nella Payton MD [address] [place] [address] [address] Referral ID Status Reason Start Date Expiration Date Visits Re quested Visits Authorized [id number] Closed 10/23/2023 02/17/2024 1 1 Reason Comments [...] Reason Onset Date Comments Refill Request 08/30/2024 Reason Comments ER F/U Reason Onset Date Comments Refill Request 09/14/2024 Reason Onset Date Comments Refill Request 10/06/2024 Reason Onset Date Comments Refill Request 10/28/2024 Reason Comments Shortness of Breath Scheduled Active and Recently Administ ered Medications (unrecognized section and content) Medication Order 07/27/2020 07/28/2020 07/29/2020 acetaminophen (TYLENOL) tablet 1,000 mg (COMPLETED) 1,000 mg, Oral, ONCE, On Fri07/29/20 at 2022, For 1 dose, Maximum dose of acetaminophen [...] (Given - Provid er: Silke Morin, POWER) ceFAZolin (ANCEF) 3000 mg in sodium chloride 0.9% 100 mL IVPB (COMPLETED) 3,000 mg, IntraVENous, CUSTOMER BUSINESS MANAGER TO O.R., 1 dose, On 6/24/22 at 0630, Antimicrobial Indications: Surgical Prophylaxis, Administer within 1 hour prior to incision. Recommend to repeat in 3-4 hours after initial dose if still intra-op., Pre-op (day of surgery) 0810 (Given by Other Clinician - Provider: Juan Mcintyre, POWER)0840 (Stopped - Provider: Juan Mcintyre RN) famotidine (PEPCID) tablet 20 mg (COMPLETED) 20 mg, Oral, ONCE, 1 dose, On Fri08/10/21 at 0700, Pre-op (day of surgery) 0646 (Given - Provid er: Silke Morin RN) LORazepam (ATIVAN) injection 0.5 mg 0.5 mg, [...] mg (COMPLETED) 2.5 mg, Nebulization, Once, On 03/11/22 at 1525, For 1 dose, Initiate RT [...] (Given - Provid er: Nancy Dunlap RN) Scheduled Medication Order 12/05/2024 12/06/2024 12/07/2024 ipratropium-albuterol (Duo-Neb) 0.5-2.5 mg/3 mL nebulizer solution 3 mL (COMPLETED) 3 mL, Nebulization, Once, On Fri12/07/24 at 1335, For 1 dose 1346 (Given - Provid er: Theresa Fajardo RN) predniSONE (Deltasone) tablet 50 mg (COMPLETED) 50 mg, Oral, Once, On Fri12/07/24 at 1335, For 1 dose 1346 (Given - Provid er: Theresa Fajardo RN) Ordered Prescriptions (unrec ognized section and [...] Care Teams (unrecognized sec tion and content) Flight Reservations Manager Relationship Specialty Start Date End Date Radha Riojas MD [address] [place] [address], [facility] [place], [place] [id number] PCP - General Family Medicine 10/10/14 Flight Reservations Manager Relationship Specialty Start Date End Date (Historical), Unknown PCP - General 08/06/16 Flight Reservations Manager Relationship Specialty Start Date End Date (Historical), Unknown PCP - General 08/06/16 Flight Reservations Manager Relationship Specialty Start Date End Date (Historical), Unknown PCP - General 08/06/16 Flight Reservations Manager Relationship Specialty Start Date End Date (Historical), Unknown PCP - General 08/06/16 Flight Reservations Manager Relationship Specialty Start Date End Date Donald Snowden, DO [address] [place] [address] PCP - General Family Medicine 04/26/22 Flight Reservations Manager Relationship Specialty Start Date End Date Donald Snowden, DO [address] [place] [address] PCP - General Family Medicine 04/26/22 Flight Reservations Manager Relationship Specialty Start Date End Date Donald Snowden DO [address] [place] [address] PCP - General Family Medicine 04/26/22 Flight Reservations Manager Relationship Specialty Start Date End Date Donald Snowden DO [address] [place] [address] PCP - General Family Medicine 04/26/22 Flight Reservations Manager Relationship Specialty Start Date End Date Donald Snowden DO [address] [place] [address] PCP - General Family Medicine 04/26/22 Flight Reservations Manager Relationship Specialty Start Date End Date Donald Snowden DO [address] [place] [address] PCP - General Family Medicine 04/26/22 Flight Reservations Manager Relationship Specialty Start Date End Date Donald Snowden DO [address] [place] [address] PCP - General Family Medicine 04/26/22 Flight Reservations Manager Relationship Specialty Start Date End Date Donald Snowden DO [address] [place] [address] PCP - General Family Medicine 04/26/22 Flight Reservations Manager Relationship Specialty Start Date End Date Donald Snowden DO [address] [place] [address] PCP - General Family Medicine 04/26/22 Flight Reservations Manager Relationship Specialty Start Date End Date Donald Snowden DO [address] [place] [address] PCP - General Family Medicine 04/26/22 Flight Reservations Manager Relationship Specialty Start Date End Date Donald Snowden DO [address] [place] [address] PCP - General Family Medicine 04/26/22 Flight Reservations Manager Relationship Specialty Start Date End Date Donald Snowden DO [address] [place] [address] PCP - General Family Medicine 04/26/22 Flight Reservations Manager Relationship Specialty Start Date End Date Donald Snowden DO [address] [place] [address] PCP - General Family Medicine 04/26/22 Flight Reservations Manager Relationship Specialty Start Date End Date Donald Snowden DO [address] [place] [address] PCP - General Family Medicine 04/26/22 Flight Reservations Manager Relationship Specialty Start Date End Date Donald Snowden DO [address] [place] [address] PCP - General Family Medicine 04/26/22 Flight Reservations Manager Relationship Specialty Start Date End Date Donald Snowden DO [address] [place] [address] PCP - General Family Medicine 04/26/22 Flight Reservations Manager Relationship Specialty Start Date End Date Donald Snowden DO [address] [place] [address] PCP - General Family Medicine 04/26/22 Flight Reservations Manager Relationship Specialty Start Date End Date Donald Snowden DO [address] [place] [address] PCP - General Family Medicine 04/26/22 Flight Reservations Manager Relationship Specialty Start Date End Date Donald Snowden DO [address] [place] [address] PCP - General Family Medicine 04/26/22 Flight Reservations Manager Relationship Specialty Start Date End Date (Historical), Unknown PCP - General 08/06/16 04/25/22 Flight Reservations Manager Relationship Specialty Start Date End Date Donald Snowden DO [address] [place] [address] PCP - General Family Medicine 04/26/22 Flight Reservations Manager Relationship Specialty Start Date End Date Donald Snowden DO [address] [place] [address] PCP - General Family Medicine 04/26/22 Flight Reservations Manager Relationship Specialty Start Date End Date Donald Snowden DO [address] [place] [address] PCP - General Family Medicine 04/26/22 Flight Reservations Manager Relationship Specialty Start Date End Date Donald Snowden DO [address] [place] [address] PCP - General Family Medicine 04/26/22 Flight Reservations Manager Relationship Specialty Start Date End Date Donald Snowden DO [address] [address] PCP - General Family Medicine 04/26/22 Flight Reservations Manager Relationship Specialty Start Date End Date Donald Snowden DO [address] [place] [address] PCP - General Family Medicine 04/26/22 Flight Reservations Manager Relationship Specialty Start Date End Date Donald Snowden DO [address] [address] PCP - General Family Medicine 04/26/22 Flight Reservations Manager Relationship Specialty Start Date End Date Donald Snowden DO [address] [place] [address] PCP - General Family Medicine 04/26/22 Flight Reservations Manager Relationship Specialty Start Date End Date Donald Snowden DO [address] [place] [address] PCP - General Family Medicine 04/26/22 Akhil Le, video game tester Mate First 04/14/23 Flight Reservations Manager Relationship Specialty Start Date End Date Donald Snowden DO [address] [place] [address] PCP - General Family Medicine 04/26/22 Akhil Le, video game tester Mate First 04/14/23 Flight Reservations Manager Relationship Specialty Start Date End Date Donald Snowden DO [address] [place] [address] PCP - General Family Medicine 04/26/22 Akhil Le, video game tester Mate First 04/14/23 Flight Reservations Manager Relationship Specialty Start Date End Date Donald Snowden DO [address] [place] [address] PCP - General Family Medicine 04/26/22 Akhil Le, video game tester Mate First 04/14/[address] [place] [address] [place] [address] Nutrition 04/17/23 Flight Reservations Manager Relationship Specialty Start Date End Date Donald Snowden DO [address] [place] [address] PCP - General Family Medicine 04/26/22 Akhil Le, video game tester Mate First 04/14/[address] [place] [address] [place] [address] Nutrition 04/17/23 Flight Reservations Manager Relationship Specialty Start Date End Date Donald Snowden DO [address] [place] [address] PCP - General Family Medicine 04/26/22 Akhil Le, video game tester Mate First 04/14/[address] [place] [address] [place] [address] Nutrition 04/17/23 Flight Reservations Manager Relationship Specialty Start Date End Date Donald Snowden DO [address] [place] [address] PCP - General Family Medicine 04/26/22 Akhil Le, video game tester Mate First 04/14/23 [place] [address] [place] [address] Nutrition 04/17/23 Flight Reservations Manager Relationship Specialty Start Date End Date Donald Snowden DO [address] [place] [address] PCP - General Family Medicine 04/26/22 Akhil Le, video game tester Mate First 04/14/[address] [place] [address] [place] [address] Nutrition 04/17/23 Flight Reservations Manager Relationship Specialty Start Date End Date Donald Snowden DO [address] [place] [address] PCP - General Family Medicine 04/26/22 Akhil Le, video game tester Mate First 04/14/[address] [place] [address] [place] [address] Nutrition 04/17/23 Flight Reservations Manager Relationship Specialty Start Date End Date Donald Snowden DO [address] [place] [address] PCP - General Family Medicine 04/26/22 Akhil Le, video game tester Mate First 04/14/[address] [place] [address] [place] [address] Nutrition 04/17/23 Flight Reservations Manager Relationship Specialty Start Date End Date Donald Snowden DO [address] [place] [address] PCP - General Family Medicine 04/26/22 Akhil Le, video game tester Mate First 04/14/23 Mera Varela, LEX [address] [place] [address] Nutrition 04/17/23 Flight Reservations Manager Relationship Specialty Start Date End Date Donald Snowden DO [address] [place] [address] PCP - General Family Medicine 04/26/[address] [place] [address] Nutrition 04/17/23 Flight Reservations Manager Relationship Specialty Start Date End Date Donald Snowden DO [address] [place] [address] PCP - General Family Medicine 04/26/[address] [place] [address] [place] [address] Nutrition 04/17/23 Flight Reservations Manager Relationship Specialty Start Date End Date Donald Snowden DO [address] [place] [address] PCP - General Family Medicine 04/26/[address] [place] [address] [place] [address] Nutrition 04/17/23 Flight Reservations Manager Relationship Specialty Start Date End Date Donald Snowden DO [address] [place] [address] PCP - General Family Medicine 04/26/[address] [place] [address] [place] [address] Nutrition 04/17/23 Flight Reservations Manager Relationship Specialty Start Date End Date Donald Snowden DO [address] [place] [address] PCP - General Family Medicine 04/26/[address] [place] [address] [place] [address] Nutrition 04/17/23 Flight Reservations Manager Relationship Specialty Start Date End Date Donald Snowden DO [address] [place] [address] PCP - General Family Medicine 04/26/[address] [place] [address] [place] [address] Nutrition 04/17/23 Flight Reservations Manager Relationship Specialty Start Date End Date Donald Snowden DO [address] [address] PCP - General Family Medicine 04/26/[address] [place] [address] [place] [address] Nutrition 04/17/23 Flight Reservations Manager Relationship Specialty Start Date End Date Donald Snowden DO [address] [address] PCP - General Family Medicine 04/26/[address] [place] [address] [place] [address] Nutrition 04/17/23 Flight Reservations Manager Relationship Specialty Start Date End Date Donald Snowden DO [address] [place] [address] PCP - General Family Medicine 04/26/[address] [place] [address] [place] [address] Nutrition 04/17/23 Flight Reservations Manager Relationship Specialty Start Date End Date Donald Snowden DO [address] [place] [address] PCP - General Family Medicine 04/26/[address] [place] [address] [place] [address] Nutrition 04/17/23 Flight Reservations Manager Relationship Specialty Start Date End Date Donald Snowden DO [address] [place] [address] PCP - General Family Medicine 04/26/[address] [place] [address] Nutrition 04/17/23 Flight Reservations Manager Relationship Specialty Start Date End Date Donald Snowden DO [address] [place] [address] PCP - General Family Medicine 04/26/[address] [place] [address] Nutrition 04/17/23 Flight Reservations Manager Relationship Specialty Start Date End Date Donald Snowden DO [address] [place] [address] PCP - General Family Medicine 04/26/[address] [place] [address] Nutrition 04/17/23 Flight Reservations Manager Relationship Specialty Start Date End Date Donald Snowden DO [address] [place] [address] PCP - General Family Medicine 04/26/[address] [place] [address] Nutrition 04/17/23 Flight Reservations Manager Relationship Specialty Start Date End Date Donald Snowden DO [address] [place] [address] PCP - General Family Medicine 04/26/[address] [place] [address] [place] [address] Nutrition 04/17/23 Flight Reservations Manager Relationship Specialty Start Date End Date Donald Snowden DO [address] [place] [address] PCP - General Family Medicine 04/26/[address] [place] [address] [place] [address] Nutrition 04/17/23 Flight Reservations Manager Relationship Specialty Start Date End Date Donald Snowden DO [address] [place] [address] PCP - General Family Medicine 04/26/[address] [place] [address] [place] [address] Nutrition 04/17/23 Flight Reservations Manager Relationship Specialty Start Date End Date Doanld Snowden DO [address] [place] [address] PCP - General Family Medicine 04/26/[address] [place] [address] [place] [address] Nutrition 04/17/23 Flight Reservations Manager Relationship Specialty Start Date End Date Donald Snowden DO [address] [place] [address] PCP - General Family Medicine 04/26/[address] [place] [address] [place] [address] Nutrition 04/17/23 Flight Reservations Manager Relationship Specialty Start Date End Date Donald Snowden DO [address] [place] [address] PCP - General Family Medicine 04/26/[address] [place] [address] [place], [place] [address] Nutrition 04/17/23 Flight Reservations Manager Relationship Specialty Start Date End Date Donald Snowden DO [address] [place] [address] PCP - General Family Medicine 04/26/[address] [place] [address] [place] [address] Nutrition 04/17/23 Flight Reservations Manager Relationship Specialty Start Date End Date Donald Snowden DO [address] [place] [address] PCP - General Family Medicine 04/26/[address] [place] [address] [place] [address] Nutrition 04/17/23 Flight Reservations Manager Relationship Specialty Start Date End Date Donald Snowden DO [address] [place] [address] PCP - General Family Medicine 04/26/[address] [place] [address] [place] [address] Nutrition 04/17/23 Flight Reservations Manager Relationship Specialty Start Date End Date Donald Snowden DO [address] [place] [address] PCP - General Family Medicine 04/26/[address] [place] [address] [place] [address] Nutrition 04/17/23 Flight Reservations Manager Relationship Specialty Start Date End Date Donald Snowden DO [address] [place] [address] PCP - General Family Medicine 04/26/[address] [place] [address] [place] [address] Nutrition 04/17/23 Robson Zuniga MD [address] [address] Pulmonary and Critical Care Medicine 09/29/23 Flight Reservations Manager Relationship Specialty Start Date End Date Donald Snowden DO [address] [place] [address] PCP - General Family Medicine 04/26/[address] [place] [address] [place] [address] Nutrition 04/17/23 Robson Zuniga MD [address] [place] [address] Pulmonary and Critical Care Medicine 09/29/23 Flight Reservations Manager Relationship Specialty Start Date End Date Donald Snowden DO [address] [place] [address] PCP - General Family Medicine 04/26/[address] [place] [address] [place] [address] Nutrition 04/17/23 Robson Zuniga MD [address] [place] [address] 21605 Pulmonary and Critical Care Medicine 09/29/23 Flight Reservations Manager Relationship Specialty Start Date End Date Donald Snowden DO [address] [place] [address] PCP - General Family Medicine 04/26/[address] [place] [address] [place] [address] Nutrition 04/17/23 Robson Zuniga MD [address] [place] [address]56 Pulmonary and Critical Care Medicine 09/29/23 Flight Reservations Manager Relationship Specialty Start Date End Date Donald Snowden DO [address] [place] [address] PCP - General Family Medicine 04/26/[address] [place] [address] [place] [address] Nutrition 04/17/23 Robson Zuniga MD [address] [place] [address]1891 Pulmonary and Critical Care Medicine 09/29/23 Flight Reservations Manager Relationship Specialty Start Date End Date Donald Snowden DO [address] [place] [address] PCP - General Family Medicine 04/26/[address] [place] [address] [place] [address] Nutrition 04/17/23 Robson Zuniga MD [address] [place] [address]695 Pulmonary and Critical Care Medicine 09/29/23 Flight Reservations Manager Relationship Specialty Start Date End Date Donald Snowden DO [address] [place] [address] PCP - General Family Medicine 04/26/[address] [place] [address] [place] [address] Nutrition 04/17/23 Robson Zuniga MD [address] [address] Pulmonary and Critical Care Medicine 09/29/23 Flight Reservations Manager Relationship Specialty Start Date End Date Donald Snowden DO [address] [place] [address] PCP - General Family Medicine 04/26/[address] [place] [address] [place] [address] Nutrition 04/17/23 Robson Zuniga MD [address] [place] [address]704 Pulmonary and Critical Care Medicine 09/29/23 Flight Reservations Manager Relationship Specialty Start Date End Date Donald Snowden DO [address] [place] [address] PCP - General Family Medicine 04/26/[address] [place] [address] [place] [address] Nutrition 04/17/23 Robson Zuniga MD [address] [place] [address]38 Pulmonary and Critical Care Medicine 09/29/23 Flight Reservations Manager Relationship Specialty Start Date End Date Donald Snowden DO [address] [place] [address] PCP - General Family Medicine 04/26/[address] [place] [address] [place] [address] Nutrition 04/17/23 Robson Zuniga MD [address] [place] [address]27 Pulmonary and Critical Care Medicine 09/29/23 Flight Reservations Manager Relationship Specialty Start Date End Date Donald Snowden DO [address] [place] [address] PCP - General Family Medicine 04/26/[address] [place] [address] [place] [address] Nutrition 04/17/23 Robson Zuniga MD [address] [place] [address] Pulmonary and Critical Care Medicine 09/29/23 Flight Reservations Manager Relationship Specialty Start Date End Date Donald Snowden DO [address] [place] [address] PCP - General Family Medicine 04/26/[address] [place] [address] [place] [address] Nutrition 04/17/23 Robson Zuniga MD [address] [place] [address] Pulmonary and Critical Care Medicine 09/29/23 Flight Reservations Manager Relationship Specialty Start Date End Date Olivia Charu Bakari [place] [phone] PCP - General 08/03/21 Flight Reservations Manager Relationship Specialty Start Date End Date Charu Baker [address] [place] [place] [phone] PCP - General 08/03/21 Flight Reservations Manager Relationship Specialty Start Date End Date Charu Baker [address] [place] [phone] PCP - General 08/03/21 Flight Reservations Manager Relationship Specialty Start Date End Date Donald Snowden DO [address] [place] [address] PCP - General Family Medicine 04/26/[address] [place] [address] [place] [address] Nutrition 04/17/23 Robson Zuniga MD [address] [place] [address] 14050 Pulmonary and Critical Care Medicine 09/29/23 Krystle Kent, COPING MACHINE ASSEMBLER.FINANCIAL SERVICES SPECIALIST [address] [place] [address] Social Work Msw Family Medicine 01/25/24 Flight Reservations Manager Relationship Specialty Start Date End Date Donald Snowden [address] [place] [address] PCP - General Family Medicine 04/26/[address] [place] [address] [place] [address] Nutrition 04/17/23 Robson Zuniga MD [address] [address] Pulmonary and Critical Care Medicine 09/29/23 Krystle Kent, COPING MACHINE ASSEMBLER.FINANCIAL SERVICES SPECIALIST [address] [place], [place] [address] Social Work Msw Family Medicine 01/25/24 Flight Reservations Manager Relationship Specialty Start Date End Date Donald Snowden [address] [place] [address] PCP - General Family Medicine 04/26/[address] [place] [address] [place] [address] Nutrition 04/17/23 Robson Zuniga MD [address] [place] [address]160 Pulmonary and Critical Care Medicine 09/29/23 Krystle Kent, COPING MACHINE ASSEMBLER.FINANCIAL SERVICES SPECIALIST [address] [place] [address] Social Work Msw Family [facility] 01/25/24 Flight Reservations Manager Relationship Specialty Start Date End Date Donald Snowden DO [address] [place] [address] PCP - General Family Medicine 04/26/[address] [place] [address] [place] [address] Nutrition 04/17/23 Robson Zuniga MD [address] [place] [address] 47614 Pulmonary and Critical Care Medicine 09/29/23 Krystle Kent, COPING MACHINE ASSEMBLER.FINANCIAL SERVICES SPECIALIST [address] [place] [address] Social Work Msw Family Medicine 01/25/24 Flight Reservations Manager Relationship Specialty Start Date End Date Donald Snowden DO [address] [address] PCP - General Family Medicine 04/26/[address] [place] [address] [place] [address] Nutrition 04/17/23 Robson Zungia MD [address] [place] [address] [id number] Pulmonary and Critical Care Medicine 09/29/23 Krystle Kent, COPING MACHINE ASSEMBLER.FINANCIAL SERVICES SPECIALIST [address] [place] [address] Social Work Msw Family [facility] 01/25/24 Flight Reservations Manager Relationship Specialty Start Date End Date Donald Snowden DO [address] [place] [address] PCP - General Family Medicine 04/26/[address] [place] [address] [place] [address] Nutrition 04/17/23 Robson Zuniga MD [address] [place] [address] Pulmonary and Critical Care Medicine 09/29/23 Krystle Kent, COPING MACHINE ASSEMBLER.FINANCIAL SERVICES SPECIALIST [address] [place] [address] Social Work Msw [facility] 01/25/24 Flight Reservations Manager Relationship Specialty Start Date End Date Donald Snowden DO [address] [address] PCP - General Family Medicine 04/26/[address] [place] [address] [place] [address] Nutrition 04/17/23 Robson Zuniga MD [address] [place] [address]452 Pulmonary and Critical Care Medicine 09/29/23 Krystle Kent APRN.FINANCIAL SERVICES SPECIALIST [address] [place] [address] Social Work Msw Family Medicine 01/25/24 Flight Reservations Manager Relationship Specialty Start Date End Date Donald Snowden DO [address] [place] [address] PCP - General Family Medicine 04/26/[address] [place] [address] [place] [address] Nutrition 04/17/23 Robson Zuniga MD [address] [address] Pulmonary and Critical Care Medicine 09/29/23 Krystle Kent APRN.FINANCIAL SERVICES SPECIALIST [address] [place] [address] Social Work Msw [facility] 01/25/24 Flight Reservations Manager Relationship Specialty Start Date End Date Donald Snwoden DO [address] [place] [address] PCP - General Family Medicine 04/26/[address] [place] [address] [place] [address] Nutrition 04/17/23 Robson Zuniga MD [address] [place] [address] 56714 Pulmonary and Critical Care Medicine 09/29/23 Krystle Kent APRN.FINANCIAL SERVICES SPECIALIST [address] [place], [place] 39[address] [facility] 01/25/24 Flight Reservations Manager Relationship Specialty Start Date End Date Donald Snowden DO [address] [place], [place] [id number] PCP - General Family Medicine 04/26/[address] [place] [address] [place] [address] Nutrition 04/17/23 Robson Zuniga MD [address] [place], [place] [phone] Pulmonary and Critical Care Medicine 09/29/23 Krystle Kent, COPING MACHINE ASSEMBLER.FINANCIAL SERVICES SPECIALIST [address] [place] [address] [facility] 01/25/24 Flight Reservations Manager Relationship Specialty Start Date End Date Donald Snowden DO [address] [place] [address] PCP - General Family Medicine 04/26/[address] [place] [address] [place] [address] Nutrition 04/17/23 Robson Zuniga MD [address] [place] [address] Pulmonary and Critical Care Medicine 09/29/23 Krystle Kent APRN.FINANCIAL SERVICES SPECIALIST [address] [place], [place] [address] Social Work Msw Family Medicine 01/25/24 Team Status: Active Member Role/Relationship Status Dates Donald Snowden Primary Care Provider Active Team Status: Inactive Member Role/Relationship Status Dates Dr. Charlie Karimi DO Emergency Provider Active Start : September 04, 2024 End: September 04, 2024 Jhon Velez Primary Care Provider Active Start: September 04, 2024 End: September 04, 2024 Flight Reservations Manager Relationship Specialty Start Date End Date Donald Snowden DO [address] [place] [address] PCP - General Family Medicine 04/26/[address] [place] [address] [place] [address] Nutrition 04/17/23 Robson Zuniga MD [address] [place] [address]991 Pulmonary and Critical Care Medicine 09/29/23 Krystle Kent APRN.CNP [address] [place] [address] 255261 Social Work Msw Family Medicine 01/25/24 Flight Reservations Manager Relationship Specialty Start Date End Date Donald Snowden DO [address] [place] [address] PCP - General Family Medicine 04/26/[address] [place] [address] [place] [address] Nutrition 04/17/23 Robson Zuniga MD [address] [place] [address] Pulmonary and Critical Care Medicine 09/29/23 Krystle Kent APRN.FINANCIAL SERVICES SPECIALIST [address] [place], [place] [address] Social Work Msw Family [facility] 01/25/24 Team Status: Active Member Role/Relationship Status Dates DONALD SNOWDEN Primary Care Provider Active Team Status: Inactive Member Role/Relationship Status Dates Dr. Charlie Karimi DO Attending Provider Active Start : September 04, 2024 End: September 04, 2024 Dr. Charlie Karimi DO Emergency Provider Active Start : September 04, 2024 End: September 04, 2024 Jhon Velez Primary Care Provider Active Start: September 04, 2024 End: September 04, 2024 Team Status: Inactive Member Role/Relationship Status Dates Dr. Sharad Hansen MD Emergency Provider Active Start: October 05, 2024 End: October 05, 2024 JHON VELEZ Primary Care Provider Active Start: October 05, 2024 End: October 05, 2024 Flight Reservations Manager Relationship Specialty Start Date End Date Donald Snowden DO [address] [place] [address] PCP - General Family Medicine 04/26/[address] [place] [address] [place] [address] Nutrition 04/17/23 Robson Zuniga MD [address] [address] Pulmonary and Critical Care Medicine 09/29/23 Krystle Kent APRN.FINANCIAL SERVICES SPECIALIST [address] [place], [place] [id number] [facility] 01/25/24 Flight Reservations Manager Relationship Specialty Start Date End Date Donald Snowden DO [address] [place] [address] PCP - General Family Medicine 04/26/[address] [place] [address] [place] [address] Nutrition 04/17/23 Robson Zuniga MD [address] [place] [address]76 Pulmonary and Critical Care Medicine 09/29/23 Krystle Kent, COPING MACHINE ASSEMBLER.FINANCIAL SERVICES SPECIALIST [address] [place] [address] Social Work Msw [facility] 01/25/24 Flight Reservations Manager Relationship Specialty Start Date End Date Donald Snowden DO [address] [place] [address] PCP - General Family Medicine 04/26/[address] [place] [address] [place] [address] Nutrition 04/17/23 Robson Zuniga MD [address] [place] [address]76 Pulmonary and Critical Care Medicine 09/29/23 Krystle Kent, COPING MACHINE ASSEMBLER.FINANCIAL SERVICES SPECIALIST [address] [place] [address] Social Work Msw [facility] 01/25/24 Flight Reservations Manager Relationship Specialty Start Date End Date Donald Snowden [place] [address] PCP - General Family Medicine 04/26/[address] [place] [address] [place] [address] Nutrition 04/17/23 Robson Zuniga MD [address] [place] [address] 17470 Pulmonary and Critical Care Medicine 09/29/23 Krystle Kent, TIO.FINANCIAL SERVICES SPECIALIST [address] [place] [address] Social Work Msw Family Medicine 01/25/24 Flight Reservations Manager Relationship Specialty Start Date End Date Donald Snowden DO [address] [place] [address] PCP - General Family Medicine 04/26/[address] [place] [address] [place] [address] Nutrition 04/17/23 Robson Zuniga MD [address] [place] [address]169 Pulmonary and Critical Care Medicine 09/29/23 Krystle Kent, COPING MACHINE ASSEMBLER.FINANCIAL SERVICES SPECIALIST [address] [place], [place] [address] Social Work Msw Family Medicine 01/25/24 Flight Reservations Manager Relationship Specialty Start Date End Date Charu Baker [address] [place] [phone] PCP - General 08/03/21 Source Comments (unrecognize d section and content) In the event this informatio n is protected by the Federal Confidentiality of Alcohol and Drug Abuse Patient Records regulations: The Federal rules restrict any use of the information to criminally investigate or prosecute any alcohol or drug abuse patient.[facility] CenterIn the event this information is protected by the Federal Confidentiality of Alcohol and Drug Abuse Patient Records regulations: The Federal rules restrict any use of the information to criminally investigate or prosecute any alcohol or drug abuse patient.[facility] CenterIn the event this information is protected by the Federal Confidentiality of Alcohol and Drug Abuse Patient Records regulations: The Federal rules restrict any use of the information to criminally investigate or prosecute any alcohol or drug abuse patient.[facility] CenterIn the event this information is protected by the Federal Confidentiality of Alcohol and Drug Abuse Patient Records regulations: The Federal rules restrict any use of the information to criminally investigate or prosecute any alcohol or drug abuse patient.[facility] CenterIn the event this information is protected by the Federal Confidentiality of Alcohol and Drug Abuse Patient Records regulations: The Federal rules restrict any use of the information to criminally investigate or prosecute any alcohol or drug abuse patient.[facility] CenterIn the event this information is protected by the Federal Confidentiality of Alcohol and Drug Abuse Patient Records regulations: The Federal rules restrict any use of the information to criminally investigate or prosecute any alcohol or drug abuse patient.[facility] CenterIn the event this information is protected by the Federal Confidentiality of Alcohol and Drug Abuse Patient Records regulations: The Federal rules restrict any use of the information to criminally investigate or prosecute any alcohol or drug abuse patient.[facility] CenterIn the event this information is protected by the Federal Confidentiality of Alcohol and Drug Abuse Patient Records regulations: The Federal rules restrict any use of the information to criminally investigate or prosecute any alcohol or drug abuse patient.[facility]In the event this information is protected by the Federal Confidentiality of Alcohol and Drug Abuse Patient Records regulations: The Federal rules restrict any use of the information to criminally investigate or prosecute any alcohol or drug abuse patient.[facility] CenterIn the event this information is protected by the Federal Confidentiality of Alcohol and Drug Abuse Patient Records regulations: The Federal rules restrict any use of the information to criminally investigate or prosecute any alcohol or drug abuse patient.[facility] CenterIn the event this information is protected by the Federal Confidentiality of Alcohol and Drug Abuse Patient Records regulations: The Federal rules restrict any use of the information to criminally investigate or prosecute any alcohol or drug abuse patient.[facility] CenterIn the event this information is protected by the Federal Confidentiality of Alcohol and Drug Abuse Patient Records regulations: The Federal rules restrict any use of the information to criminally investigate or prosecute any alcohol or drug abuse patient.[facility] CenterIn the event this information is protected by the Federal Confidentiality of Alcohol and Drug Abuse Patient Records regulations: The Federal rules restrict any use of the information to criminally investigate or prosecute any alcohol or drug abuse patient.[facility] CenterIn the event this information is protected by the Federal Confidentiality of Alcohol and Drug Abuse Patient Records regulations: The Federal rules restrict any use of the information to criminally investigate or prosecute any alcohol or drug abuse patient.[facility] CenterIn the event this information is protected by the Federal Confidentiality of Alcohol and Drug Abuse Patient Records regulations: The Federal rules restrict any use of the information to criminally investigate or prosecute any alcohol or drug abuse patient.[facility] CenterIn the event this information is protected by the Federal Confidentiality of Alcohol and Drug Abuse Patient Records regulations: The Federal rules restrict any use of the information to criminally investigate or prosecute any alcohol or drug abuse patient.[facility] CenterIn the event this information is protected by the Federal Confidentiality of Alcohol and Drug Abuse Patient Records regulations: The Federal rules restrict any use of the information to criminally investigate or prosecute any alcohol or drug abuse patient.[facility] CenterIn the event this information is protected by the Federal Confidentiality of Alcohol and Drug Abuse Patient Records regulations: The Federal rules restrict any use of the information to criminally investigate or prosecute any alcohol or drug abuse patient.[facility] CenterIn the event this information is protected by the Federal Confidentiality of Alcohol and Drug Abuse Patient Records regulations: The Federal rules restrict any use of the information to criminally investigate or prosecute any alcohol or drug abuse patient.[facility] CenterIn the event this information is protected by the Federal Confidentiality of Alcohol and Drug Abuse Patient Records regulations: The Federal rules restrict any use of the information to criminally investigate or prosecute any alcohol or drug abuse patient.[facility] CenterIn the event this information is protected by the Federal Confidentiality of Alcohol and Drug Abuse Patient Records regulations: The Federal rules restrict any use of the information to criminally investigate or prosecute any alcohol or drug abuse patient.[facility] CenterIn the event this information is protected by the Federal Confidentiality of Alcohol and Drug Abuse Patient Records regulations: The Federal rules restrict any use of the information to criminally investigate or prosecute any alcohol or drug abuse patient.[facility] CenterIn the event this information is protected by the Federal Confidentiality of Alcohol and Drug Abuse Patient Records regulations: The Federal rules restrict any use of the information to criminally investigate or prosecute any alcohol or drug abuse patient.[facility] CenterIn the event this information is protected by the Federal Confidentiality of Alcohol and Drug Abuse Patient Records regulations: The Federal rules restrict any use of the information to criminally investigate or prosecute any alcohol or drug abuse patient.[facility] CenterIn the event this information is protected by the Federal Confidentiality of Alcohol and Drug Abuse Patient Records regulations: The Federal rules restrict any use of the information to criminally investigate or prosecute any alcohol or drug abuse patient.[facility] CenterIn the event this information is protected by the Federal Confidentiality of Alcohol and Drug Abuse Patient Records regulations: The Federal rules restrict any use of the information to criminally investigate or prosecute any alcohol or drug abuse patient.[facility] CenterIn the event this information is protected by the Federal Confidentiality of Alcohol and Drug Abuse Patient Records regulations: The Federal rules restrict any use of the information to criminally investigate or prosecute any alcohol or drug abuse patient.[facility] CenterIn the event this information is protected by the Federal Confidentiality of Alcohol and Drug Abuse Patient Records regulations: The Federal rules restrict any use of the information to criminally investigate or prosecute any alcohol or drug abuse patient.[facility] CenterIn the event this information is protected by the Federal Confidentiality of Alcohol and Drug Abuse Patient Records regulations: The Federal rules restrict any use of the information to criminally investigate or prosecute any alcohol or drug abuse patient.[facility] CenterIn the event this information is protected by the Federal Confidentiality of Alcohol and Drug Abuse Patient Records regulations: The Federal rules restrict any use of the information to criminally investigate or prosecute any alcohol or drug abuse patient.[facility] CenterIn the event this information is protected by the Federal Confidentiality of Alcohol and Drug Abuse Patient Records regulations: The Federal rules restrict any use of the information to criminally investigate or prosecute any alcohol or drug abuse patient.[facility] CenterIn the event this information is protected by the Federal Confidentiality of Alcohol and Drug Abuse Patient Records regulations: The Federal rules restrict any use of the information to criminally investigate or prosecute any alcohol or drug abuse patient.[facility] CenterIn the event this information is protected by the Federal Confidentiality of Alcohol and Drug Abuse Patient Records regulations: The Federal rules restrict any use of the information to criminally investigate or prosecute any alcohol or drug abuse patient.[facility] CenterIn the event this information is protected by the Federal Confidentiality of Alcohol and Drug Abuse Patient Records regulations: The Federal rules restrict any use of the information to criminally investigate or prosecute any alcohol or drug abuse patient.[facility] CenterIn the event this information is protected by the Federal Confidentiality of Alcohol and Drug Abuse Patient Records regulations: The Federal rules restrict any use of the information to criminally investigate or prosecute any alcohol or drug abuse patient.[facility] CenterIn the event this information is protected by the Federal Confidentiality of Alcohol and Drug Abuse Patient Records regulations: The Federal rules restrict any use of the information to criminally investigate or prosecute any alcohol or drug abuse patient.[facility] CenterIn the event this information is protected by the Federal Confidentiality of Alcohol and Drug Abuse Patient Records regulations: The Federal rules restrict any use of the information to criminally investigate or prosecute any alcohol or drug abuse patient.[facility] CenterIn the event this information is protected by the Federal Confidentiality of Alcohol and Drug Abuse Patient Records regulations: The Federal rules restrict any use of the information to criminally investigate or prosecute any alcohol or drug abuse patient.[facility] CenterIn the event this information is protected by the Federal Confidentiality of Alcohol and Drug Abuse Patient Records regulations: The Federal rules restrict any use of the information to criminally investigate or prosecute any alcohol or drug abuse patient.[facility] CenterIn the event this information is protected by the Federal Confidentiality of Alcohol and Drug Abuse Patient Records regulations: The Federal rules restrict any use of the information to criminally investigate or prosecute any alcohol or drug abuse patient.[facility] CenterIn the event this information is protected by the Federal Confidentiality of Alcohol and Drug Abuse Patient Records regulations: The Federal rules restrict any use of the information to criminally investigate or prosecute any alcohol or drug abuse patient.[facility] CenterIn the event this information is protected by the Federal Confidentiality of Alcohol and Drug Abuse Patient Records regulations: The Federal rules restrict any use of the information to criminally investigate or prosecute any alcohol or drug abuse patient.[facility] CenterIn the event this information is protected by the Federal Confidentiality of Alcohol and Drug Abuse Patient Records regulations: The Federal rules restrict any use of the information to criminally investigate or prosecute any alcohol or drug abuse patient.[facility] CenterIn the event this information is protected by the Federal Confidentiality of Alcohol and Drug Abuse Patient Records regulations: The Federal rules restrict any use of the information to criminally investigate or prosecute any alcohol or drug abuse patient.[facility] CenterIn the event this information is protected by the Federal Confidentiality of Alcohol and Drug Abuse Patient Records regulations: The Federal rules restrict any use of the information to criminally investigate or prosecute any alcohol or drug abuse patient.[facility] CenterIn the event this information is protected by the Federal Confidentiality of Alcohol and Drug Abuse Patient Records regulations: The Federal rules restrict any use of the information to criminally investigate or prosecute any alcohol or drug abuse patient.[facility] CenterIn the event this information is protected by the Federal Confidentiality of Alcohol and Drug Abuse Patient Records regulations: The Federal rules restrict any use of the information to criminally investigate or prosecute any alcohol or drug abuse patient.[facility] CenterIn the event this information is protected by the Federal Confidentiality of Alcohol and Drug Abuse Patient Records regulations: The Federal rules restrict any use of the information to criminally investigate or prosecute any alcohol or drug abuse patient.[facility] CenterIn the event this information is protected by the Federal Confidentiality of Alcohol and Drug Abuse Patient Records regulations: The Federal rules restrict any use of the information to criminally investigate or prosecute any alcohol or drug abuse patient.[facility] CenterIn the event this information is protected by the Federal Confidentiality of Alcohol and Drug Abuse Patient Records regulations: The Federal rules restrict any use of the information to criminally investigate or prosecute any alcohol or drug abuse patient.[facility] CenterIn the event this information is protected by the Federal Confidentiality of Alcohol and Drug Abuse Patient Records regulations: The Federal rules restrict any use of the information to criminally investigate or prosecute any alcohol or drug abuse patient.[facility] CenterIn the event this information is protected by the Federal Confidentiality of Alcohol and Drug Abuse Patient Records regulations: The Federal rules restrict any use of the information to criminally investigate or prosecute any alcohol or drug abuse patient.[facility] CenterIn the event this information is protected by the Federal Confidentiality of Alcohol and Drug Abuse Patient Records regulations: The Federal rules restrict any use of the information to criminally investigate or prosecute any alcohol or drug abuse patient.[facility] CenterIn the event this information is protected by the Federal Confidentiality of Alcohol and Drug Abuse Patient Records regulations: The Federal rules restrict any use of the information to criminally investigate or prosecute any alcohol or drug abuse patient.[facility] CenterIn the event this information is protected by the Federal Confidentiality of Alcohol and Drug Abuse Patient Records regulations: The Federal rules restrict any use of the information to criminally investigate or prosecute any alcohol or drug abuse patient.[facility] CenterIn the event this information is protected by the Federal Confidentiality of Alcohol and Drug Abuse Patient Records regulations: The Federal rules restrict any use of the information to criminally investigate or prosecute any alcohol or drug abuse patient.[facility] CenterIn the event this information is protected by the Federal Confidentiality of Alcohol and Drug Abuse Patient Records regulations: The Federal rules restrict any use of the information to criminally investigate or prosecute any alcohol or drug abuse patient.[facility] CenterIn the event this information is protected by the Federal Confidentiality of Alcohol and Drug Abuse Patient Records regulations: The Federal rules restrict any use of the information to criminally investigate or prosecute any alcohol or drug abuse patient.[facility]In the event this information is protected by the Federal Confidentiality of Alcohol and Drug Abuse Patient Records regulations: The Federal rules restrict any use of the information to criminally investigate or prosecute any alcohol or drug abuse patient.[facility] CenterIn the event this information is protected by the Federal Confidentiality of Alcohol and Drug Abuse Patient Records regulations: The Federal rules restrict any use of the information to criminally investigate or prosecute any alcohol or drug abuse patient.[facility] CenterIn the event this information is protected by the Federal Confidentiality of Alcohol and Drug Abuse Patient Records regulations: The Federal rules restrict any use of the information to criminally investigate or prosecute any alcohol or drug abuse patient.[facility] CenterIn the event this information is protected by the Federal Confidentiality of Alcohol and Drug Abuse Patient Records regulations: The Federal rules restrict any use of the information to criminally investigate or prosecute any alcohol or drug abuse patient.[facility] CenterIn the event this information is protected by the Federal Confidentiality of Alcohol and Drug Abuse Patient Records regulations: The Federal rules restrict any use of the information to criminally investigate or prosecute any alcohol or drug abuse patient.[facility] CenterIn the event this information is protected by the Federal Confidentiality of Alcohol and Drug Abuse Patient Records regulations: The Federal rules restrict any use of the information to criminally investigate or prosecute any alcohol or drug abuse patient.[facility] CenterIn the event this information is protected by the Federal Confidentiality of Alcohol and Drug Abuse Patient Records regulations: The Federal rules restrict any use of the information to criminally investigate or prosecute any alcohol or drug abuse patient.[facility] CenterIn the event this information is protected by the Federal Confidentiality of Alcohol and Drug Abuse Patient Records regulations: The Federal rules restrict any use of the information to criminally investigate or prosecute any alcohol or drug abuse patient.[facility] CenterIn the event this information is protected by the Federal Confidentiality of Alcohol and Drug Abuse Patient Records regulations: The Federal rules restrict any use of the information to criminally investigate or prosecute any alcohol or drug abuse patient.[facility] CenterIn the event this information is protected by the Federal Confidentiality of Alcohol and Drug Abuse Patient Records regulations: The Federal rules restrict any use of the information to criminally investigate or prosecute any alcohol or drug abuse patient.[facility] CenterIn the event this information is protected by the Federal Confidentiality of Alcohol and Drug Abuse Patient Records regulations: The Federal rules restrict any use of the information to criminally investigate or prosecute any alcohol or drug abuse patient.[facility] CenterIn the event this information is protected by the Federal Confidentiality of Alcohol and Drug Abuse Patient Records regulations: The Federal rules restrict any use of the information to criminally investigate or prosecute any alcohol or drug abuse patient.[facility] CenterIn the event this information is protected by the Federal Confidentiality of Alcohol and Drug Abuse Patient Records regulations: The Federal rules restrict any use of the information to criminally investigate or prosecute any alcohol or drug abuse patient.[facility] CenterIn the event this information is protected by the Federal Confidentiality of Alcohol and Drug Abuse Patient Records regulations: The Federal rules restrict any use of the information to criminally investigate or prosecute any alcohol or drug abuse patient.[facility]In the event this information is protected by the Federal Confidentiality of Alcohol and Drug Abuse Patient Records regulations: The Federal rules restrict any use of the information to criminally investigate or prosecute any alcohol or drug abuse patient.[facility] CenterIn the event this information is protected by the Federal Confidentiality of Alcohol and Drug Abuse Patient Records regulations: The Federal rules restrict any use of the information to criminally investigate or prosecute any alcohol or drug abuse patient.[facility] CenterIn the event this information is protected by the Federal Confidentiality of Alcohol and Drug Abuse Patient Records regulations: The Federal rules restrict any use of the information to criminally investigate or prosecute any alcohol or drug abuse patient.[facility] CenterIn the event this information is protected by the Federal Confidentiality of Alcohol and Drug Abuse Patient Records regulations: The Federal rules restrict any use of the information to criminally investigate or prosecute any alcohol or drug abuse patient.[facility] CenterIn the event this information is protected by the Federal Confidentiality of Alcohol and Drug Abuse Patient Records regulations: The Federal rules restrict any use of the information to criminally investigate or prosecute any alcohol or drug abuse patient.[facility]In the event this information is protected by the Federal Confidentiality of Alcohol and Drug Abuse Patient Records regulations: The Federal rules restrict any use of the information to criminally investigate or prosecute any alcohol or drug abuse patient.[facility] CenterIn the event this information is protected by the Federal Confidentiality of Alcohol and Drug Abuse Patient Records regulations: The Federal rules restrict any use of the information to criminally investigate or prosecute any alcohol or drug abuse patient.[facility] CenterIn the event this information is protected by the Federal Confidentiality of Alcohol and Drug Abuse Patient Records regulations: The Federal rules restrict any use of the information to criminally investigate or prosecute any alcohol or drug abuse patient.[facility]In the event this information is protected by the Federal Confidentiality of Alcohol and Drug Abuse Patient Records regulations: The Federal rules restrict any use of the information to criminally investigate or prosecute any alcohol or drug abuse patient.[facility] CenterIn the event this information is protected by the Federal Confidentiality of Alcohol and Drug Abuse Patient Records regulations: The Federal rules restrict any use of the information to criminally investigate or prosecute any alcohol or drug abuse patient.[facility] CenterIn the event this information is protected by the Federal Confidentiality of Alcohol and Drug Abuse Patient Records regulations: The Federal rules restrict any use of the information to criminally investigate or prosecute any alcohol or drug abuse patient.[facility] CenterIn the event this information is protected by the Federal Confidentiality of Alcohol and Drug Abuse Patient Records regulations: The Federal rules restrict any use of the information to criminally investigate or prosecute any alcohol or drug abuse patient.[facility] CenterIn the event this information is protected by the Federal Confidentiality of Alcohol and Drug Abuse Patient Records regulations: The Federal rules restrict any use of the information to criminally investigate or prosecute any alcohol or drug abuse patient.[facility] CenterIn the event this information is protected by the Federal Confidentiality of Alcohol and Drug Abuse Patient Records regulations: The Federal rules restrict any use of the information to criminally investigate or prosecute any alcohol or drug abuse patient.[facility] CenterIn the event this information is protected by the Federal Confidentiality of Alcohol and Drug Abuse Patient Records regulations: The Federal rules restrict any use of the information to criminally investigate or prosecute any alcohol or drug abuse patient.[facility]In the event this information is protected by the Federal Confidentiality of Alcohol and Drug Abuse Patient Records regulations: The Federal rules restrict any use of the information to criminally investigate or prosecute any alcohol or drug abuse patient.[facility] CenterIn the event this information is protected by the Federal Confidentiality of Alcohol and Drug Abuse Patient Records regulations: The Federal rules restrict any use of the information to criminally investigate or prosecute any alcohol or drug abuse patient.[facility] CenterIn the event this information is protected by the Federal Confidentiality of Alcohol and Drug Abuse Patient Records regulations: The Federal rules restrict any use of the information to criminally investigate or prosecute any alcohol or drug abuse patient.[facility]In the event this information is protected by the Federal Confidentiality of Alcohol and Drug Abuse Patient Records regulations: The Federal rules restrict any use of the information to criminally investigate or prosecute any alcohol or drug abuse patient.[facility]In the event this information is protected by the Federal Confidentiality of Alcohol and Drug Abuse Patient Records regulations: The Federal rules restrict any use of the information to criminally investigate or prosecute any alcohol or drug abuse patient.[facility] CenterIn the event this information is protected by the Federal Confidentiality of Alcohol and Drug Abuse Patient Records regulations: The Federal rules restrict any use of the information to criminally investigate or prosecute any alcohol or drug abuse patient.[facility]In the event this information is protected by the Federal Confidentiality of Alcohol and Drug Abuse Patient Records regulations: The Federal rules restrict any use of the information to criminally investigate or prosecute any alcohol or drug abuse patient.[facility]In the event this information is protected by the Federal Confidentiality of Alcohol and Drug Abuse Patient Records regulations: The Federal rules restrict any use of the information to criminally investigate or prosecute any alcohol or drug abuse patient.[facility]In the event this information is protected by the Federal Confidentiality of Alcohol and Drug Abuse Patient Records regulations: The Federal rules restrict any use of the information to criminally investigate or prosecute any alcohol or drug abuse patient.[facility]In the event this information is protected by the Federal Confidentiality of Alcohol and Drug Abuse Patient Records regulations: The Federal rules restrict any use of the information to criminally investigate or prosecute any alcohol or drug abuse patient.[facility] CenterIn the event this information is protected by the Federal Confidentiality of Alcohol and Drug Abuse Patient Records regulations: The Federal rules restrict any use of the information to criminally investigate or prosecute any alcohol or drug abuse patient.[facility]In the event this information is protected by the Federal Confidentiality of Alcohol and Drug Abuse Patient Records regulations: The Federal rules restrict any use of the information to criminally investigate or prosecute any alcohol or drug abuse patient.[facility]In the event this information is protected by the Federal Confidentiality of Alcohol and Drug Abuse Patient Records regulations: The Federal rules restrict any use of the information to criminally investigate or prosecute any alcohol or drug abuse patient.[facility]In the event this information is protected by the Federal Confidentiality of Alcohol and Drug Abuse Patient Records regulations: The Federal rules restrict any use of the information to criminally investigate or prosecute any alcohol or drug abuse patient.[facility]In the event this information is protected by the Federal Confidentiality of Alcohol and Drug Abuse Patient Records regulations: The Federal rules restrict any use of the information to criminally investigate or prosecute any alcohol or drug abuse patient.[facility]In the event this information is protected by the Federal Confidentiality of Alcohol and Drug Abuse Patient Records regulations: The Federal rules restrict any use of the information to criminally investigate or prosecute any alcohol or drug abuse patient.[facility]In the event this information is protected by the Federal Confidentiality of Alcohol and Drug Abuse Patient Records regulations: The Federal rules restrict any use of the information to criminally investigate or prosecute any alcohol or drug abuse patient.[facility]In the event this information is protected by the Federal Confidentiality of Alcohol and Drug Abuse Patient Records regulations: The Federal rules restrict any use of the information to criminally investigate or prosecute any alcohol or drug abuse patient.[facility]In the event this information is protected by the Federal Confidentiality of Alcohol and Drug Abuse Patient Records regulations: The Federal rules restrict any use of the information to criminally investigate or prosecute any alcohol or drug abuse patient.[facility]In the event this information is protected by the Federal Confidentiality of Alcohol and Drug Abuse Patient Records regulations: The Federal rules restrict any use of the information to criminally investigate or prosecute any alcohol or drug abuse patient.[facility]In the event this information is protected by the Federal Confidentiality of Alcohol and Drug Abuse Patient Records regulations: The Federal rules restrict any use of the information to criminally investigate or prosecute any alcohol or drug abuse patient.[facility]In the event this information is protected by the Federal Confidentiality of Alcohol and Drug Abuse Patient Records regulations: The Federal rules restrict any use of the information to criminally investigate or prosecute any alcohol or drug abuse patient.[facility]In the event this information is protected by the Federal Confidentiality of Alcohol and Drug Abuse Patient Records regulations: The Federal rules restrict any use of the information to criminally investigate or prosecute any alcohol or drug abuse patient.[facility]In the event this information is protected by the Federal Confidentiality of Alcohol and Drug Abuse Patient Records regulations: The Federal rules restrict any use of the information to criminally investigate or prosecute any alcohol or drug abuse patient.[facility]In the event this information is protected by the Federal Confidentiality of Alcohol and Drug Abuse Patient Records regulations: The Federal rules restrict any use of the information to criminally investigate or prosecute any alcohol or drug abuse patient.[facility]In the event this information is protected by the Federal Confidentiality of Alcohol and Drug Abuse Patient Records regulations: The Federal rules restrict any use of the information to criminally investigate or prosecute any alcohol or drug abuse patient.[facility]In the event this information is protected by the Federal Confidentiality of Alcohol and Drug Abuse Patient Records regulations: The Federal rules restrict any use of the information to criminally investigate or prosecute any alcohol or drug abuse patient.[facility]In the event this information is protected by the Federal Confidentiality of Alcohol and Drug Abuse Patient Records regulations: The Federal rules restrict any use of the information to criminally investigate or prosecute any alcohol or drug abuse patient.[facility]In the event this information is protected by the Federal Confidentiality of Alcohol and Drug Abuse Patient Records regulations: The Federal rules restrict any use of the information to criminally investigate or prosecute any alcohol or drug abuse patient.[facility]In the event this information is protected by the Federal Confidentiality of Alcohol and Drug Abuse Patient Records regulations: The Federal rules restrict any use of the information to criminally investigate or prosecute any alcohol or drug abuse patient.[facility]In the event this information is protected by the Federal Confidentiality of Alcohol and Drug Abuse Patient Records regulations: The Federal rules restrict any use of the information to criminally investigate or prosecute any alcohol or drug abuse patient.[facility]In the event this information is protected by the Federal Confidentiality of Alcohol and Drug Abuse Patient Records regulations: The Federal rules restrict any use of the information to criminally investigate or prosecute any alcohol or drug abuse patient.[facility]In the event this information is protected by the Federal Confidentiality of Alcohol and Drug Abuse Patient Records regulations: The Federal rules restrict any use of the information to criminally investigate or prosecute any alcohol or drug abuse patient.[facility] CenterIn the event this information is protected by the Federal Confidentiality of Alcohol and Drug Abuse Patient Records regulations: The Federal rules restrict any use of the information to criminally investigate or prosecute any alcohol or drug abuse patient.[facility] CenterIn the event this information is protected by the Federal Confidentiality of Alcohol and Drug Abuse Patient Records regulations: The Federal rules restrict any use of the information to criminally investigate or prosecute any alcohol or drug abuse patient.[facility] CenterIn the event this information is protected by the Federal Confidentiality of Alcohol and Drug Abuse Patient Records regulations: The Federal rules restrict any use of the information to criminally investigate or prosecute any alcohol or drug abuse patient.[facility] CenterIn the event this information is protected by the Federal Confidentiality of Alcohol and Drug Abuse Patient Records regulations: The Federal rules restrict any use of the information to criminally investigate or prosecute any alcohol or drug abuse patient.[facility] CenterIn the event this information is protected by the Federal Confidentiality of Alcohol and Drug Abuse Patient Records regulations: The Federal rules restrict any use of the information to criminally investigate or prosecute any alcohol or drug abuse patient.[facility] CenterIn the event this information is protected by the Federal Confidentiality of Alcohol and Drug Abuse Patient Records regulations: The Federal rules restrict any use of the information to criminally investigate or prosecute any alcohol or drug abuse patient.[facility] CenterIn the event this information is protected by the Federal Confidentiality of Alcohol and Drug Abuse Patient Records regulations: The Federal rules restrict any use of the information to criminally investigate or prosecute any alcohol or drug abuse patient.[facility] CenterIn the event this information is protected by the Federal Confidentiality of Alcohol and Drug Abuse Patient Records regulations: The Federal rules restrict any use of the information to criminally investigate or prosecute any alcohol or drug abuse patient.[facility] CenterIn the event this information is protected by the Federal Confidentiality of Alcohol and Drug Abuse Patient Records regulations: The Federal rules restrict any use of the information to criminally investigate or prosecute any alcohol or drug abuse patient.[facility] CenterIn the event this information is protected by the Federal Confidentiality of Alcohol and Drug Abuse Patient Records regulations: The Federal rules restrict any use of the information to criminally investigate or prosecute any alcohol or drug abuse patient.[facility] CenterIn the event this information is protected by the Federal Confidentiality of Alcohol and Drug Abuse Patient Records regulations: The Federal rules restrict any use of the information to criminally investigate or prosecute any alcohol or drug abuse patient.[facility] CenterIn the event this information is protected by the Federal Confidentiality of Alcohol and Drug Abuse Patient Records regulations: The Federal rules restrict any use of the information to criminally investigate or prosecute any alcohol or drug abuse patient.[facility] CenterIn the event this information is protected by the Federal Confidentiality of Alcohol and Drug Abuse Patient Records regulations: The Federal rules restrict any use of the information to criminally investigate or prosecute any alcohol or drug abuse patient.[facility] CenterIn the event this information is protected by the Federal Confidentiality of Alcohol and Drug Abuse Patient Records regulations: The Federal rules restrict any use of the information to criminally investigate or prosecute any alcohol or drug abuse patient.[facility] CenterIn the event this information is protected by the Federal Confidentiality of Alcohol and Drug Abuse Patient Records regulations: The Federal rules restrict any use of the information to criminally investigate or prosecute any alcohol or drug abuse patient.[facility] CenterIn the event this information is protected by the Federal Confidentiality of Alcohol and Drug Abuse Patient Records regulations: The Federal rules restrict any use of the information to criminally investigate or prosecute any alcohol or drug abuse patient.[facility] CenterIn the event this information is protected by the Federal Confidentiality of Alcohol and Drug Abuse Patient Records regulations: The Federal rules restrict any use of the information to criminally investigate or prosecute any alcohol or drug abuse patient.[facility] CenterIn the event this information is protected by the Federal Confidentiality of Alcohol and Drug Abuse Patient Records regulations: The Federal rules restrict any use of the information to criminally investigate or prosecute any alcohol or drug abuse patient.[facility] CenterIn the event this information is protected by the Federal Confidentiality of Alcohol and Drug Abuse Patient Records regulations: The Federal rules restrict any use of the information to criminally investigate or prosecute any alcohol or drug abuse patient.[facility] CenterIn the event this information is protected by the Federal Confidentiality of Alcohol and Drug Abuse Patient Records regulations: The Federal rules restrict any use of the information to criminally investigate or prosecute any alcohol or drug abuse patient.[facility] CenterIn the event this information is protected by the Federal Confidentiality of Alcohol and Drug Abuse Patient Records regulations: The Federal rules restrict any use of the information to criminally investigate or prosecute any alcohol or drug abuse patient.[facility] CenterIn the event this information is protected by the Federal Confidentiality of Alcohol and Drug Abuse Patient Records regulations: The Federal rules restrict any use of the information to criminally investigate or prosecute any alcohol or drug abuse patient.[facility] CenterIn the event this information is protected by the Federal Confidentiality of Alcohol and Drug Abuse Patient Records regulations: The Federal rules restrict any use of the information to criminally investigate or prosecute any alcohol or drug abuse patient.[facility] CenterIn the event this information is protected by the Federal Confidentiality of Alcohol and Drug Abuse Patient Records regulations: The Federal rules restrict any use of the information to criminally investigate or prosecute any alcohol or drug abuse patient.[facility] CenterIn the event this information is protected by the Federal Confidentiality of Alcohol and Drug Abuse Patient Records regulations: The Federal rules restrict any use of the information to criminally investigate or prosecute any alcohol or drug abuse patient.[facility] CenterIn the event this information is protected by the Federal Confidentiality of Alcohol and Drug Abuse Patient Records regulations: The Federal rules restrict any use of the information to criminally investigate or prosecute any alcohol or drug abuse patient.[facility] CenterIn the event this information is protected by the Federal Confidentiality of Alcohol and Drug Abuse Patient Records regulations: The Federal rules restrict any use of the information to criminally investigate or prosecute any alcohol or drug abuse patient.[facility] CenterIn the event this information is protected by the Federal Confidentiality of Alcohol and Drug Abuse Patient Records regulations: The Federal rules restrict any use of the information to criminally investigate or prosecute any alcohol or drug abuse patient.[facility] CenterIn the event this information is protected by the Federal Confidentiality of Alcohol and Drug Abuse Patient Records regulations: The Federal rules restrict any use of the information to criminally investigate or prosecute any alcohol or drug abuse patient.[facility] CenterIn the event this information is protected by the Federal Confidentiality of Alcohol and Drug Abuse Patient Records regulations: The Federal rules restrict any use of the information to criminally investigate or prosecute any alcohol or drug abuse patient.[facility] CenterIn the event this information is protected by the Federal Confidentiality of Alcohol and Drug Abuse Patient Records regulations: The Federal rules restrict any use of the information to criminally investigate or prosecute any alcohol or drug abuse patient.[facility] CenterIn the event this information is protected by the Federal Confidentiality of Alcohol and Drug Abuse Patient Records regulations: The Federal rules restrict any use of the information to criminally investigate or prosecute any alcohol or drug abuse patient.[facility] CenterIn the event this information is protected by the Federal Confidentiality of Alcohol and Drug Abuse Patient Records regulations: The Federal rules restrict any use of the information to criminally investigate or prosecute any alcohol or drug abuse patient.[facility] CenterIn the event this information is protected by the Federal Confidentiality of Alcohol and Drug Abuse Patient Records regulations: The Federal rules restrict any use of the information to criminally investigate or prosecute any alcohol or drug abuse patient.[facility] CenterIn the event this information is protected by the Federal Confidentiality of Alcohol and Drug Abuse Patient Records regulations: The Federal rules restrict any use of the information to criminally investigate or prosecute any alcohol or drug abuse patient.[facility] CenterIn the event this information is protected by the Federal Confidentiality of Alcohol and Drug Abuse Patient Records regulations: The Federal rules restrict any use of the information to criminally investigate or prosecute any alcohol or drug abuse patient.[facility] CenterIn the event this information is protected by the Federal Confidentiality of Alcohol and Drug Abuse Patient Records regulations: The Federal rules restrict any use of the information to criminally investigate or prosecute any alcohol or drug abuse patient.[facility] CenterIn the event this information is protected by the Federal Confidentiality of Alcohol and Drug Abuse Patient Records regulations: The Federal rules restrict any use of the information to criminally investigate or prosecute any alcohol or drug abuse patient.[facility]In the event this information is protected by the Federal Confidentiality of Alcohol and Drug Abuse Patient Records regulations: The Federal rules restrict any use of the information to criminally investigate or prosecute any alcohol or drug abuse patient.[facility] CenterIn the event this information is protected by the Federal Confidentiality of Alcohol and Drug Abuse Patient Records regulations: The Federal rules restrict any use of the information to criminally investigate or prosecute any alcohol or drug abuse patient.[facility] CenterIn the event this information is protected by the Federal Confidentiality of Alcohol and Drug Abuse Patient Records regulations: The Federal rules restrict any use of the information to criminally investigate or prosecute any alcohol or drug abuse patient.[facility] CenterIn the event this information is protected by the Federal Confidentiality of Alcohol and Drug Abuse Patient Records regulations: The Federal rules restrict any use of the information to criminally investigate or prosecute any alcohol or drug abuse patient.[facility] CenterIn the event this information is protected by the Federal Confidentiality of Alcohol and Drug Abuse Patient Records regulations: The Federal rules restrict any use of the information to criminally investigate or prosecute any alcohol or drug abuse patient.[facility] CenterIn the event this information is protected by the Federal Confidentiality of Alcohol and Drug Abuse Patient Records regulations: The Federal rules restrict any use of the information to criminally investigate or prosecute any alcohol or drug abuse patient.[facility] CenterIn the event this information is protected by the Federal Confidentiality of Alcohol and Drug Abuse Patient Records regulations: The Federal rules restrict any use of the information to criminally investigate or prosecute any alcohol or drug abuse patient.[facility] Goals (unrecognized section and content) Goals may be documented in a n alternate section FOR RECORDS PERTAINING TO PATIENTS WHO ARE [...] BE BASED ON THE PRIMARY CLINICAL RECORDS. [facility]. provides no warranty or guarantee of the accuracy or completeness of information in this document.
--- NOTE | 2024-12-26 17:03 | EDS_ITS ---
HPI History of Present Illness Chief Complaint: Allergic Reaction Narrative Narrative: Chief complaint and HPI: 34-year-old female with past medical history of asthma, anxiety, depression, seasonal allergies presents for evaluation of suspected allergic reaction. 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 States at times she feels that her throat may be swollen. Denies any new soaps or body products. Denies any new chemical exposure. States she did eat a peanut butter cookie from a gas station but states she has no known food allergies especially not to peanuts. She denies any chest pain, shortness of breath, vomiting. Review of systems: See HPI Medications: As listed on the chart Allergies: As listed on the chart PFSH: Per chart Vital signs: As listed on the chart. Reviewed. Physical exam: Gen: A&O x3, NAD Head: Normocephalic, atraumatic Eyes: No sclera icterus, conjunctiva clear, PERRL, EOMI, no periorbital edema ENT: TMs clear BL, moist mucous membranes, tolerating secretions, posterior oropharynx unremarkable, uvula midline, tonsils not enlarged, no tonsillar exudates, no tongue or oral swelling/enlargement, normal phonation Neck: Trachea midline, no swelling, full range of motion CV: RRR, no murmurs Resp: Lungs CTA BL, no w/r/c, no stridor GI: Abd soft, non-distended, non-tender, no r/r/g Musc: Full ROM, no deformity Skin: Warm, dry, no urticaria however there is multiple scratch callaway with redness from the scratch callaway from her itching throughout her body Psych: Cooperative, appropriate mood and affect [facility] Medical History Anxiety Reactive hypoglycemia Asthma Home Medications Medication Instructions Recorded Last Taken Type albuterol sulfate 90 mcg/actuation 2 puff IH Q4H PRN A sthma 02/25/19 Unknown History aerosol inhaler citalopram 40 mg tablet 40 mg PO DAILY 02/25/19 Unkn own History budesonide 0.5 mg/2 mL suspension 0.5 mg inhalation Q1 2.TCU 07/11/23 Unknown History for nebulization fexofenadine 180 mg tablet 180 mg PO DAILY 05/24/24 Un known History ([facility] Allergy) fluticasone 250 mcg-salmeterol 50 1 inh inhalation BID 07/11/23 Unknown History mcg/dose blistr powdr for inhalation (Wixela Inhub) mepolizumab 100 mg/mL subcutaneous 100 mg subcut QMONT H 07/11/23 Unknown History auto-injector (Nucala) metformin 500 mg tablet,extended 500 mg PO TID 4 Unknown History release 24 hr montelukast 10 mg tablet 10 mg PO DAILY 07/11/23 Unkn own History buspirone 15 mg tablet 15 mg PO TID 10/05/24 Unknow n History lamotrigine 100 mg tablet 100 mg PO DAILY 10/05/24 Unk nown History semaglutide (weight loss) 1 mg/0.5 1 mg subcut QWEEK 0 10/05/24 Unknown History mL subcutaneous pen injector (Wegovy) trazodone 100 mg tablet 100 mg PO QHS 10/05/24 Unkno wn History Allergy/AdvReac Type Severity Reaction Status Date / Time sulfamethoxazole (From Allergy Mild UNKNOWN Verified 12/26/24 16:26 Bactrim) trimethoprim (From Bactrim) Allergy Mild UNKNOWN Verified 12/26/24 16:26 ceftriaxone (From Rocephin) Allergy Hives Verified 12/26/24 16:26 Family History no significant family his Surgical History History of section History of cholecystectomy Social History Smoking Status: Never smoker alcohol intake: never EXAM Physical Exam Const Vital Signs: 12/26/24 16:24 12/26/24 17:24 Temperature 98 F Temperature Source Oral Pulse Rate 88 67 Respiratory Rate 16 12 Blood Pressure 125/78 H 113/69 Blood Pressure Mean 93 83 Pulse Ox 99 98 Oxygen Delivery Method Room Air Room Air MDM MDM MDM Narrative Medical decision making narrative: 34-year-old female with past medical history of asthma, anxiety, depression, seasonal allergies presents for evaluation of suspected allergic reaction. 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 States at times she feels that her throat may be swollen. Denies any new soaps or body products. Denies any new chemical exposure. States she did eat a peanut butter cookie from a gas station but states she has no known food allergies especially not to peanuts. She denies any chest pain, shortness of breath, vomiting. On presentation, patient no acute distress. Vitals are stable. See physical exam findings. Although patient endorses itching there is no urticaria. There is no signs of anaphylactic send on physical exam. Patient symptoms will be treated with IV Solu-Medrol, Benadryl, Pepcid and patient will be monitored for suspected allergic reaction. Unable to place IV despite multiple attempts therefore p.o. Benadryl, p.o. Pepcid, p.o. prednisone ordered. On reevaluation, patient's itching has improved. Her vitals have remained stable. Not anaphylactic. Patient stable to discharge home for suspected allergic reaction. Will give her prescription for prednisone and Pepcid. Benadryl as needed for itching. She confirmed understanding of the plan. Patient stable to discharge home. She is to continue your home allergy medication. Return back to ED if symptoms change or worsen. Impression: 1. Allergic reaction Discharge Plan Triage Chief Complaint: Allergic Reaction ED Provider: Luis Angel Maldonado Dx/Rx/DC Orders Prescriptions: No Action citalopram 40 MG tablet 40 mg PO DAILY albuterol sulfate 18 GM HFA aerosol inhaler 2 puff IH Q4H PRN (Reason: Asthma) metformin 500 mg tablet extended release 24 hr 500 mg PO TID Nucala 100 mg/mL auto-injector 100 mg subcut QMONTH fluticasone propion-salmeterol [Wixela Inhub] 250-50 mcg/dose blister with device 1 inh inhalation BID budesonide 0.5 mg/2 mL suspension for nebulization 0.5 mg inhalation Q12.TCU montelukast 10 mg tablet 10 mg PO DAILY fexofenadine [[facility] Allergy] 180 mg tablet 180 mg PO DAILY trazodone 100 mg tablet 100 mg PO QHS lamotrigine 100 mg tablet 100 mg PO DAILY buspirone 15 mg tablet 15 mg PO TID Wegovy 1 mg/0.5 mL pen injector 1 mg subcut QWEEK Patient Comments: MONDAYS Primary Care Provider: DONALD FERREIRA DO Referrals: DONALD FERREIRA DO [Other] Print Language: Hebrew
[2024-12-26 17:24] VITALS: BP 113/69; PULSE 67; RESP 12; O2SAT 98
[2024-12-26 18:00] VITALS: BP 112/75; PULSE 66
[2024-12-26 18:23] VITALS: BP 114/68; PULSE 65; RESP 16; TEMP 37; O2SAT 100
== END 2024-12-26 18:30 | disposition home or self-care (01) ==
PROVIDERS: Emergency Provider Surgery; Visit Provider Surgery
DX: T78.40XA Allergy, unspecified, initial encounter (principal); F41.9 Anxiety disorder, unspecified; J45.909 Unspecified asthma, uncomplicated; Z90.49 Acquired absence of other specified parts of digestive tract
CPT/HCPCS: 96374; 96375; 99283; A4216